=== PATIENT | female | born 1945 | race Caucasian/White ===

== ENCOUNTER 2018-12-01 15:43 | Inpatient (IN) | payer BC, MEDICARE ==
[~2018-12-01] VITALS: Ht 165.1 cm; Wt 61.7 kg
[~2018-12-01 15:43] MED LIST: BUPR300T4 ORAL; GABA300C16 PO; LEVO100T82 PO; LISI-313 PO; NABU-81 ORAL; SIMV5TAB14 PO; TIOT18CA INHALATION
[2018-12-01] MEDS ORDERED: HYDROCODONE/APAP (5/325) TAB PO ONE (16:30)
--- NOTE | 2018-12-01 16:38 | ERD ---
ER Documentation Chief Complaint Chief Complaint MECHANICAL FALL WITH LAC TO POSTERIOR HEAD D/T RT LEG WEAKNESS HPI 73-year-old female brought in by ambulance from home after a ground-level fall. Patient states that she slipped off the side of her bed, however her family thinks that something else happened but they were not there to witness it. Patient was [facility] just [facility] although family was told by the physical therapist there that the patient was not ready to go home safely. She does use a walker but occasionally her left leg which is her bad leg gets cramps and gives out. However today, the patient felt like her right leg was weak and feels that that is the reason she may have fallen. She did hit the back of her head on the nightstand and sustained a laceration. She denies any loss of consciousness or headache at this time. No new back pain. She does complain of lower back pain that is chronic for her and not worse after the fall. She is basically incontinent at baseline. She does not have any bowel incontinence. She is complaining of decreased sensation in her right lower extremity as well as her left lower extremity. However the left is chronic. ROS All systems reviewed and are negative except as per history of present illness. Medications Home Meds Reported Medications Diclofenac Sodium* (Voltaren* Gel) 1% -100 Gm Gel, 2 GM TOP TID PRN for PAIN, #1 TUB apply to lower back 12/01/18 Cholecalciferol* (Vitamin D3*) 1,000 Unit Tablet, 1000 UNIT PO DAILY, TAB 12/01/18 Ascorbic Acid* (Vitamin C*) 500 Mg Capsule.sa, 500 MG PO BID, CAP 12/01/18 Budesonide-Formoterol Fumarate* (Symbicort*) 160-4.5 Hfa.aer.ad, 2 PUFF INHALATION BID, #1 EACH 12/01/18 Sennosides* (Senna Lax*) 8.6 Mg Tablet, 1 TAB PO BID, TAB 12/01/18 Albuterol Sulfate* (Proair HFA*) 8.5 Gm Hfa.aer.ad, 2 PUFF INH Q4H PRN for WH EEZING AND SOB, #1 INHALER 12/01/18 Polyethylene Glycol* (Miralax*) 17 Gm Powd.pack, 17 GM PO DAILY, #30 PACKET HOLD FOR LOOSE STOOL MIX WITH 4-8oz of fluids 12/01/18 Hydrocodone/Acetaminophen ([place] 5-325 Tablet) 1 Each Tablet, 1 EACH PO Q6 PRN for MOD PAIN 4-7, TAB 12/01/18 Multivitamins* (Theragran*) 1 Tab Tab, 1 TAB PO DAILY, TAB 12/01/18 Lisinopril* (Lisinopril*) 5 Mg Tablet, 5 MG PO DAILY, #30 TAB HOLD FOR SBP<110 12/01/18 Levothyroxine Sodium* (Levoxyl*) 100 Mcg Tablet, 100 MCG PO BEFORE BREAKFAST, #30 TAB 12/01/18 [place]-3/Dha/Epa/Fish Oil (FISH OIL 1,000 MG SOFTGEL) 1 Each Capsule, 1 EACH PO DAILY, CAP 12/01/18 Docusate Sodium* (Colace*) 100 Mg Capsule, 100 MG PO BID, #60 CAP 12/01/18 Calcium Carbonate/Vitamin D3 (OYSTER SHELL 500 MG + VIT D TB) 1 Each Tablet, 1 EACH PO BID, TAB 12/01/18 Bupropion Hcl* (Bupropion XL*) 300 Mg Tab.sr.24h, 300 MG PO DAILY, TAB.SA 12/01/18 Na Phos,M-B/Na Phos,Di-Ba (ENEMA USEMM-RS-OLI) 133 Ml Enema, 133 ML RC EVERY 3RD DAY PRN for CONSTIPATION, ENEMA 12/01/18 Bisacodyl (Dulcolax) 10 Mg Supp.rect, 10 MG RC PRN PRN for CONSTIPATION, SUPP.RECT 12/01/18 Magnesium Hydroxide* (Milk Of Magnesia*) 400 Mg/5 Ml Oral.susp, 30 ML PO DAILY PRN for CONSTIPATION, ML 12/01/18 Vitamin B Complex* (Vitamin B Complex*) 1 Each Tablet, 1 TAB PO DAILY, TAB 12/01/18 Acetaminophen* (Acetaminophen*) 650 Mg Tablet, 650 MG PO Q4 PRN for MODERATE PAIN LEVEL 4-6, #30 TAB 12/01/18 Discontinued Reported Medications Levothyroxine Sodium* (Levoxyl*) 100 Mcg Tablet, 100 MCG PO BEFORE BREAKFAST, #30 TAB 04/24/16 Tiotropium [place]* (Spiriva*) 18 Mcg Cap.w.dev, 1 CAP INHALATION DAILY, #30 CAP 12/05/15 Bupropion Hcl* (Bupropion XL*) 300 Mg Tab.sr.24h, 300 MG ORAL DAILY, #90 12/05/15 Gabapentin* (Gabapentin*) 300 Mg Capsule, 600 MG PO TID, #180 CAP 12/05/15 Nabumetone* (Nabumetone*) 500 Mg Tablet, 500 MG ORAL BID, #180 12/05/15 Lisinopril* (Lisinopril*) 5 Mg Tablet, 5 MG PO DAILY, #30 TAB 09/19/15 Discontinued Scripts Simvastatin* (Simvastatin*) 5 Mg Tablet, 5 MG PO QHS, #30 TAB Prov:LILLY JOSE MD 12/06/15 Allergies Allergies: Coded Allergies: Anesthetics - Amide Type (Verified Allergy, Unknown, 12/01/18) Cholinesterase Inhibitor(Carbamate) (Verified Allergy, Unknown, 12/01/18) succinylcholine (Verified Allergy, Unknown, 12/01/18) Uncoded Allergies: HALOGENATED (Allergy, Unknown, 12/01/18) PMhx/Soc History of Surgery: Yes (bilat TKR, hip, R TSR, hysterectomy, back sx, thumb, lumbar laminectomy) Anesthesia Reaction: No Hx Neurological Disorder: No Hx Respiratory Disorders: Yes (quit smoking) Hx Cardiac Disorders: No Hx Psychiatric Problems: Yes (depression) Hx Miscellaneous Medical Probl: Yes (COPD, depression, metabolic syndrome, chronic pain sydrome) Hx Alcohol Use: Yes (one drink every three years) Hx Substance Use: No Hx Tobacco Use: Yes (former) FmHx Family History: No diabetes Physical Exam Vitals Vital Signs Date Temp Pulse Resp B/P (MAP) Pulse Ox O2 O2 Flow FiO2 Time Delivery Rate 12/01/18 92 16 118/74 96 Room Air 18:35 (89) 12/01/18 100 17 122/76 100 Room Air 16:49 (91) 12/01/18 97.8 115 16 122/71 98 15:53 (88) Physical Exam Const: No acute distress, nontoxic Head: Atraumatic Eyes: Normal Conjunctiva ENT: Normal External Ears, Nose and Mouth. Neck: Full range of motion. No meningismus. Resp: Clear to auscultation bilaterally Cardio: Regular rate and rhythm, no murmurs Abd: Soft, non tender, non distended. Normal bowel sounds Skin: No petechiae or rashes Back: Mild lumbar midline tenderness, chronic per patient. No thoracic tenderness or C-spine tenderness. Ext: No cyanosis, or edema Neur: Awake and alert, oriented x3, cranial nerves intact, strength intact in bilateral upper extremities. Sensations intact in bilateral upper extremities. Strength diminished with flexion at the hip in bilateral lower extremities, 4/5. Otherwise strength intact in all other distributions of the lower extremities bilaterally. Sensation diminished to painful stimuli in bilateral lower extremities. Intact to painful stimuli in the dorsum of right foot Psych: Normal Mood and Affect Result Diagram: 12/01/18 1750 12/01/18 175 Results 24 hrs Laboratory Tests Test 12/01/18 17:50 12/01/18 18:50 12/01/18 19:00 White Blood Count 18.5 10^3/ul Red Blood Count 4.39 10^6/ul Hemoglobin 11.8 g/dl Hematocrit 37.4 % Mean Corpuscular Volume 85.2 fl Mean Corpuscular Hemoglobin 26.9 pg Mean Corpuscular 31.6 g/dl Hemoglobin Concent Red Cell Distribution Width 14.7 % Platelet Count 354 10^3/UL Mean Platelet Volume 9.3 fl Immature Granulocytes % 0.900 % Neutrophils % 88.1 % Lymphocytes % 3.1 % Monocytes % 7.7 % Eosinophils % 0.0 % Basophils % 0.2 % Nucleated Red Blood Cells % 0.0 /100WBC Immature Granulocytes # 0.170 10^3/ul Neutrophils # 16.3 10^3/ul Lymphocytes # 0.6 10^3/ul Monocytes # 1.4 10^3/ul Eosinophils # 0.0 10^3/ul Basophils # 0.0 10^3/ul Nucleated Red Blood Cells # 0.0 10^3/ul Sodium Level 136 mmol/L Potassium Level 3.7 mmol/L Chloride Level 103 mmol/L Carbon Dioxide Level 25 mmol/L Anion Gap 8 Blood Urea Nitrogen 12 mg/dl Creatinine 0.55 mg/dl Est Glomerular Filtrat mL/min Rate mL/min Glucose Level 114 mg/dl Calcium Level 8.9 mg/dl Lactic Acid Level 1.0 mmol/L Troponin I 0.027 ng/ml Urine Color YELLOW Urine Clarity CLOUDY Urine pH 5.0 Urine Specific [place] 1.015 Urine Ketones TRACE mg/dL Urine Nitrite POSITIVE mg/dL Urine Bilirubin NEGATIVE mg/dL Urine Urobilinogen NEGATIVE mg/dL Urine Leukocyte Esterase NEGATIVE Earnest/ul Urine Microscopic RBC 1 /HPF Urine Microscopic WBC 8 /HPF Urine Squamous Epithelial Cells MODERATE /HPF Urine Bacteria MANY /HPF Urine Hemoglobin NEGATIVE mg/dL Urine Glucose NEGATIVE mg/dL Urine Total Protein NEGATIVE mg/dl Current Medications Medications Dose Sig/Jose Start Time Status Last (Trade) Ordered Route PRN Stop Time Admin Dose Reason Admin 1 tab ONCE ONCE 12/01/18 DC 12/01/18 Acetaminophen PO 16:30 17:32 / 12/01/18 16:31 Hydrocodone Bitart ([place] (5/325)) Sodium 1,870 ml BOLUS OVER 2 12/01/18 DC 12/01/18 Chloride HOURS STAT 18:20 19:14 (NS) IV* 12/01/18 18:22 Ceftriaxone 50 ml @ ONCE STAT 12/01/18 DC 12/01/18 Sodium 100 mls/hr IVPB 18:20 19:12 12/01/18 18:49 Procedures/MDM EMERGENT LABS AND DIAGNOSTIC STUDIES: Lab Results above were reviewed and interpreted by me. CBC: Leukocytosis, concerning for infection. Mild anemia BMP: No evidence of electrolyte abnormality, renal failure, hypoglycemia troponin within normal limits, no evidence of myocardial ischemia Lactate is within normal limits UA: c/w infection Urine and blood cultures pending Radiology Results as interpreted by Radiology below were reviewed by Keiko Ragsdale MD: CT T-spine: IMPRESSION: No fracture or subluxation of the thoracic spine. Severe spinal canal stenosis at T10-11, moderate spinal canal stenosis at T1-2, and mild spinal canal stenosis at T3-4, T4-5, T6-7, and T8-9. Severe right neural foraminal narrowings at T1-2, T4-5, T5-6, T6-7, T7-8, and T10-11. Severe left neural foraminal narrowings at T2-3, T3-4, T4-5, and T10-11. CT lumbar spine: No acute fracture subluxation of the lumbar spine. Status post multilevel discectomy and posterior fusion from L1-L3. There has also been discectomy and anterior interbody fusion from L3-L5. 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 Mild spinal canal stenosis at T12-L1. Moderate left neural foraminal narrowing at L4-L5, mild to moderate bilateral neural foraminal narrowing at L2-L3 CT head: No acute abnormalities Chest x-ray shows no acute abnormalities Initial Nursing notes reviewed. Previous Medical Records requested via the Electronic Health Record. EMERGENCY DEPARTMENT COURSE / MEDICAL DECISION MAKING: Laceration Repair by me: Anesthesia: None Location: Posterior left scalp Tendon/Joint/Nerves: No injury Foreign body: None detected after copious irrigation and exploration Technique: 3 pily Complexity: No subcutaneous sutures/mucosal repair/edge excision Post Closure Length: 3 cm Patient's bleeding was easily controlled in the department and there is no indication of anemia. MDM Patient was initially treated for her pain with [place], which was her preference. Vitals were noted to be unremarkable. Her wound was cleansed and pily were placed. Given her age, CT head was done per ACEP guidelines. CT of her spine was also ordered to evaluate for any injury from her fall. CT does not show any acute traumatic abnormalities. Her labs did show evidence of leukocytosis and UA was consistent with infection. Antibiotics were started. Given her frequent falls and new weakness in her right lower extremity, I feel the patient is not safe for discharge and will require admission for further workup and stabilization. At this time, I have a low suspicion for cauda equina. Patient will likely need MRI but she is not showing any signs of neurologic deficits that require emergent neurosurgical consultation or surgery. Accepting Care Team: Current data and ongoing care discussed. Time: Time of admission Primary Provider: Dr. Ever Doan Diagnosis: Primary Impression: Fall Encounter type: initial encounter Qualified Codes: W19.XXXA - Unspecified fall, initial encounter Additional Impressions: Scalp laceration Encounter type: initial encounter Qualified Codes: S01.01XA - Laceration without foreign body of scalp, initial encounter Blunt head injury Encounter type: initial encounter Qualified Codes: S09.8XXA - Other specified injuries of head, initial encounter UTI (urinary tract infection) Urinary tract infection type: site unspecified Hematuria presence: without hematuria Qualified Codes: N39.0 - Urinary tract infection, site not specified Lower extremity weakness Laterality: bilateral Qualified Codes: R29.898 - Other symptoms and signs involving the musculoskeletal system Condition: Fair RODRIGO RAGSDALE MD Dec 01, 2018 16:38
[2018-12-01] MEDS ORDERED: ACET-2047 PO (17:10)
[2018-12-01] MEDS ORDERED: VIT1TABL46 PO (17:10)
[2018-12-01] MEDS ORDERED: MAGN400O19 PO (17:11)
[2018-12-01] MEDS ORDERED: BISA10SU55 RC (17:11)
[2018-12-01] MEDS ORDERED: NA P133E10 RC (17:12)
[2018-12-01] MEDS ORDERED: CALC1TAB93 PO (17:13)
[2018-12-01] MEDS ORDERED: BUPR300T4 PO (17:13)
[2018-12-01] MEDS ORDERED: DOCU-144 PO (17:14)
[2018-12-01] MEDS ORDERED: LEVO100T82 PO (17:14)
[2018-12-01] MEDS ORDERED: OMEG1CAP20 PO (17:14)
[2018-12-01] MEDS ORDERED: LISI-313 PO (17:15)
[2018-12-01] MEDS ORDERED: MULTI PO (17:15)
[2018-12-01] MEDS ORDERED: HYDR-4011 PO (17:17)
[2018-12-01] MEDS ORDERED: POLY17PO6 PO (17:18)
[2018-12-01] MEDS ORDERED: SENN-120 PO (17:19)
[2018-12-01] MEDS ORDERED: ALBU8.5H8 INH (17:19)
[2018-12-01] MEDS ORDERED: BUDE6HFA INHALATION (17:19)
[2018-12-01] MEDS ORDERED: ASCO500C7 PO (17:20)
[2018-12-01] MEDS ORDERED: CHOL100062 PO (17:20)
[2018-12-01] MEDS ORDERED: DICL100G37 TOP (17:21)
[2018-12-01] MEDS ORDERED: CEFTRIAXONE 1 GM/50 ML (PMX) 50 ML IVPB STA (18:20)
[2018-12-01] MEDS ORDERED: SODIUM CHLORIDE 0.9% 1L BAG IV* STA (18:20)
[2018-12-01] MEDS ORDERED: ONDANSETRON 4 MG INJ IV PRN ×2 (19:30→22:00)
[2018-12-01] MEDS ORDERED: ACETAMINOPHEN 325 MG TAB PO PRN ×2 (19:30→22:00)
[2018-12-01 20:30] VITALS: BP_SYST 102; BP_SYST 129; BP_DIAS 50; BP_DIAS 59; PULSE 75; RESP 18
[2018-12-01 21:00] VITALS: BP 102/50; PULSE 75; RESP 18
[2018-12-01] MEDS ORDERED: MAGNESIUM HYDROXIDE 30ML CUP PO PRN (21:00)
[2018-12-01] MEDS ORDERED: ALBUTEROL HFA 8 GM INHALER INH PRN (21:00)
[2018-12-01] MEDS ORDERED: NA PHOSPHATE/BIPHOS 133 ML ENEMA PR PRN (21:00)
[2018-12-01] MEDS ORDERED: DICLOFENAC SODIUM 1% GEL 100 GM TUBE TP PRN (21:00)
--- NOTE | 2018-12-01 21:57 | HP ---
Date/Time of Note Date/Time of Note DATE: 12/01/18 TIME: 21:56 Assessment/Plan VTE Prophylaxis SCD applied (from Ns): Yes Pharmacological prophylaxis: NA/contraindicated Pharm contraindication: low risk/ambulating Assessment/Plan Hospital Course This is a 73-year female being admitted to the [facility] floor for: #1 mechanical fall: Possibly multifactorial secondary to spinal/muscular pathology and/or UTI. Will obtain further imaging studies, antibiotics for UTI. #2 right lower extremity weakness: Patient does have free range of motion of both lower extremities she does still have significant pain to palpation on the right anterior thigh. Will check a CK level to assess for any underlying rhabdomyolysis. I will order a CT of the right lower extremity to assess for any underlying abscess or infectious process. May need an MRI of the thigh. #3 chronic spinal disease: Patient does have a history of significant stenosis of her spine. Lumbar spine and thoracic spine do so signs of stenosis though no acute fractures. Given her weakness will also order an MRI of the lumbar and thoracic spine. Depending on the findings we will consider consulting neurosurgery. Pain management. #4 osteoarthritis: Continue to monitor, pain management #5 urinary tract infection: Ceftriaxone 1 g every 24 hours, will obtain urine culture. #6 DVT GI prophylaxis: SCDs, no GI prophylaxis indicated further treatment strategy will be implemented as per the clinical course. Result Diagram: 12/01/18 1750 12/01/18 1750 Results 24hrs Laboratory Tests Test 12/01/18 17:50 12/01/18 18:50 12/01/18 19:00 White Blood Count 18.5 #H Red Blood Count 4.39 Hemoglobin 11.8 L Hematocrit 37.4 Mean Corpuscular Volume 85.2 Mean Corpuscular Hemoglobin 26.9 L Mean Corpuscular Hemoglobin Concent 31.6 L Red Cell Distribution Width 14.7 H Platelet Count 354 Mean Platelet Volume 9.3 Immature Granulocytes % 0.900 H Neutrophils % 88.1 H Lymphocytes % 3.1 L Monocytes % 7.7 Eosinophils % 0.0 Basophils % 0.2 Nucleated Red Blood Cells % 0.0 Immature Granulocytes # 0.170 H Neutrophils # 16.3 H Lymphocytes # 0.6 L Monocytes # 1.4 H Eosinophils # 0.0 Basophils # 0.0 Nucleated Red Blood Cells # 0.0 Sodium Level 136 Potassium Level 3.7 Chloride Level 103 Carbon Dioxide Level 25 Anion Gap 8 Blood Urea Nitrogen 12 Creatinine 0.55 Est Glomerular Filtrat Rate mL/min Glucose Level 114 Calcium Level 8.9 Lactic Acid Level 1.0 Troponin I 0.027 Urine Color YELLOW Urine Clarity CLOUDY A Urine pH 5.0 Urine Specific [place] 1.015 Urine Ketones TRACE A Urine Nitrite POSITIVE A Urine Bilirubin NEGATIVE Urine Urobilinogen NEGATIVE Urine Leukocyte Esterase NEGATIVE Urine Microscopic RBC 1 Urine Microscopic WBC 8 H Urine Squamous Epithelial Cells MODERATE Urine Bacteria MANY A Urine Hemoglobin NEGATIVE Urine Glucose NEGATIVE Urine Total Protein NEGATIVE HPI/ROS Admit Date/Time Admit Date/Time Dec 01, 2018 at 19:24 Hx of Present Illness Chief complaint: Ground level fall This is a 73-year-old female brought in by ambulance from home after a ground- level fall. Patient states that she slipped off the side of her bed, however her family thinks that something else happened but they were not there to witness it. Patient was reportedly just [facility] a [facility] although family was told by the physical therapist there that the patient was not ready to go home safely. She does use a walker but occasionally her left leg which is her bad leg gets cramps and gives out. However today, the patient felt like her right leg was weak and feels that that is the reason she may have fallen. She did hit the back of her head on the nightstand and sustained a laceration. She denies any loss of consciousness or headache at this time. No new back pain. She does complain of lower back pain that is chronic for her and not worse after the fall. She is basically incontinent at baseline. She does not have any bowel incontinence. She is complaining of decreased sensation in her right lower extremity as well as her left lower extremity. However the left is chronic. Allergies: Anesthetics, carbamate, halogen aided succinylcholine Medications: See NOV ROS Const: As per HPI Eyes : No pain discharge or redness or change in visual acuity ENT: No pain, sore throat, congestion, congestion, dysphagia or discharge Respiratory: No shortness of breath, cough, sputum, wheezing, or pleuritic pain Cardiovascular: No chest pain, palpitation, PND, or edema GI : no change in appetite, abdominal pain, nausea, vomiting, diarrhea, constipation, or change in the color his stool Genitourinary: No dysuria, hematuria, flank pain , discharge or CVA tenderness Musculoskeletal: As per HPI Skin: No rash, bruising or hives Neuro: As per HPI Endocrine: No polyuria, polydipsia, temperature intolerance Psych: No hallucination, depression, anxiety or suicidal ideation Additional Comments PROCEDURE: CT lumbar spine without contrast CLINICAL INDICATION: Trauma, back pain. TECHNIQUE: A CT scan of the lumbar spine was performed without intravenous contrast. Coronal and sagittal reformatted images were generated. DICOM images are available. CTDIvol: 22.51 mGy. DLP: 736.21 mGy-cm. One or more of the following dose reduction techniques were used: - Automated exposure control. - Adjustment of the mA and/or kV according to patient size. - Use of iterative reconstruction technique. COMPARISON: None. FINDINGS: The lumbar lordosis is preserved. The vertebral body heights are maintained. Bone mineralization is normal and there is no suspicious osseous lesion. No acute fracture or subluxation is identified. There is transitional anatomy of the lumbosacral junction with right hemisacralization of L5. The patient is status post multilevel discectomy and posterior fusion from L1- L3. There has also been discectomy and anterior interbody fusion from L3-L5. T12-L1: Disc bulging leads to mild spinal canal stenosis and mild right neural foraminal narrowing. L1-L2: There is no spinal canal stenosis. Mild left neural foraminal narrowing is noted due to disc bulging. L2-L3: There is no spinal canal stenosis. Mild to moderate bilateral neural foraminal narrowing is noted due to disc osteophyte L3-L4: There is grade 1 degenerative L3 anterolisthesis (4 mm). No spinal canal stenosis or neural foraminal narrowing is seen. L4-L5: There is grade 1 degenerative L4 anterolisthesis (4 mm). No spinal canal stenosis is seen. There is moderate left neural foraminal narrowing due to osteophyte. L5-S1: There is no spinal canal stenosis. Mild left neural foraminal narrowing is noted due to a small foraminal disc protrusion. There are moderate atherosclerotic arterial calcifications. Bilateral hip arthroplasties are partially imaged. IMPRESSION: No acute fracture subluxation of the lumbar spine. Status post multilevel discectomy and posterior fusion from L1-L3. There has also been discectomy and anterior interbody fusion from L3-L5. 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 Mild spinal canal stenosis at T12-L1. Moderate left neural foraminal narrowing at L4-L5, mild to moderate bilateral neural foraminal narrowing at L2-L3. RPTAT: HTAR .Maurilio Culp MD, MD Date Time Electronically viewed and signed by .Maurilio Culp MD, MD on 12/01/2018 18:10 .R/ CC: RODRIGO FARMER MD [id number] PROCEDURE: CT thoracic spine without contrast. CLINICAL INDICATION: Trauma, back pain. TECHNIQUE: A CT of the thoracic spine was performed without intravenous contrast. Coronal and sagittal reformats were generated. DICOM images are available. CTDIvol: 22.48 mGy. DLP: 892.13 mGy-cm. One or more of the following dose reduction techniques were used: - Automated exposure control. - Adjustment of the mA and/or kV according to patient size. - Use of iterative reconstruction technique. COMPARISON: None. FINDINGS: There is a normal thoracic kyphosis. The vertebral body heights are maintained. No fracture or subluxation is seen. There is grade 1 degenerative anterolisthesis of T2, T3, T4, T5, and T6 secondary to degenerative disc disease and multilevel facet arthrosis. Severe loss of disc height is noted at T1-2, T4-5, T5-6, and T6-7. There is severe loss of disc height and vacuum disc phenomenon at T10-11. There are severe neural foraminal narrowings on the right at T1-2, T4-5, T5-6, T6-7, T7-8, and T10-11. Severe left neural foraminal narrowing is noted at T2-3, T3-4, T4-5, and T10-11. There is moderate spinal canal stenosis at T1-2. Mild spinal canal stenosis is noted at T3-4, T4-5, T6-7, and T8-9. There is severe spinal canal stenosis at T10-11. The extra spinal soft tissue structures are unremarkable. IMPRESSION: No fracture or subluxation of the thoracic spine. Severe spinal canal stenosis at T10-11, moderate spinal canal stenosis at T1-2, and mild spinal canal stenosis at T3-4, T4-5, T6-7, and T8-9. Severe right neural foraminal narrowings at T1-2, T4-5, T5-6, T6-7, T7-8, and T10-11. Severe left neural foraminal narrowings at T2-3, T3-4, T4-5, and T10-11. RPTAT: HTAR .Maurilio Culp MD, MD Date Time Electronically viewed and signed by .Maurilio Culp MD, on 12/01/2018 18:00 .R/ CC: RODRIGO FARMER MD [id number] PMH/Family/Social Past Medical History Osteoarthritis, lumbar disease Medications Current Medications Ondansetron HCl (Zofran Inj) 4 mg BRIDGE ORDER PRN IV NAUSEA/VOMITING; Start 12/01/18 at 19:30; Stop 12/02/18 at 19:29 Acetaminophen (Tylenol Tab) 650 mg ER BRIDGE PRN PO .MILD PAIN 1-3 OR TEMP; Start 12/01/18 at 19:30; Stop 12/02/18 at 19:29 Acetaminophen (Tylenol Tab) 650 mg Q4 PRN PO MODERATE PAIN LEVEL 4-6; Start 12/01/18 at 21:00; Status UNV Albuterol (Ventolin Hfa) 2 puff Q4H PRN INH WHEEZING AND SOB; Start 12/01/18 at 21:00; Status UNV Ascorbic Acid (Vitamin C) 500 mg BID PO ; Start 12/01/18 at 21:00; Status UNV Bupropion HCl (Wellbutrin Xl) 300 mg DAILY PO ; Start 12/02/18 at 09:00; Status UNV Cholecalciferol (Vitamin D) 1,000 unit DAILY PO ; Start 12/02/18 at 09:00; Status UNV Diclofenac Sodium (Voltaren 1% Gel) 2 gm TID PRN TP PAIN; Start 12/01/18 at 21:00; Status UNV Docusate Sodium (Colace) 100 mg BID PO ; Start 12/01/18 at 21:00; Status UNV Levothyroxine Sodium (Synthroid) 100 mcg BEFORE BREAKFAST PO ; Start 12/02/18 at 07:00; Status UNV Lisinopril (Zestril) 5 mg DAILY PO ; Start 12/02/18 at 09:00; Status UNV Magnesium Hydroxide (Milk Of Mag) 30 ml DAILY PRN PO CONSTIPATION; Start 12/01/18 at 21:00; Status UNV Multivitamins Therapeutic (Theragran) 1 tab DAILY PO ; Start 12/02/18 at 09:00; Status UNV Sodium Biphosphate/ Sodium Phosphate (Fleet Enema) 133 ml DAILY PRN CA CONSTIPATION; Start 12/01/18 at 21:00; Status UNV Polyethylene Glycol (Miralax) 17 gm DAILY PO ; Start 12/02/18 at 09:00; Status UNV Senna (Senokot) 1 tab BID PO ; Start 12/01/18 at 21:00; Status UNV Vitamin B Complex/ Vitamin C (Berocca) 1 cap DAILY PO ; Start 12/02/18 at 09:00; Status UNV Miscellaneous Information 2 puff BID INHALATION ; Start 12/01/18 at 21:00; Status UNV Miscellaneous Information 1 each DAILY PO ; Start 12/02/18 at 09:00; Status UNV Ceftriaxone Sodium 50 ml @ 100 mls/hr Q24H IVPB ; Start 12/02/18 at 18:00; Status UNV IV Flush (NS 3 ml) 3 ml PER PROTOCOL IV ; Start 12/01/18 at 22:00; Status UNV Ondansetron HCl (Zofran Inj) 4 mg Q6H PRN IV NAUSEA/VOMITING; Start 12/01/18 at 22:00; Status UNV Acetaminophen (Tylenol Tab) 650 mg Q6H PRN PO .PAIN 1-3 OR TEMP; Start 12/01/18 at 22:00; Status UNV Docusate Sodium (Colace) 100 mg Q12H PRN PO .CONSTIPATION; Start 12/01/18 at 22:00; Status UNV Bisacodyl (Dulcolax) 5 mg DAILY PRN PO .CONSTIPATION; Start 12/01/18 at 22:00; Status UNV Coded Allergies: Anesthetics - Amide Type (Verified Allergy, Unknown, 12/01/18) Cholinesterase Inhibitor(Carbamate) (Verified Allergy, Unknown, 12/01/18) succinylcholine (Verified Allergy, Unknown, 12/01/18) Uncoded Allergies: HALOGENATED (Allergy, Unknown, 12/01/18) Past Surgical History Status post multilevel discectomy and posterior fusion from L1-L3. There has also been discectomy and anterior interbody fusion from L3-L5. Family History Significant Family History: no pertinent family hx Social History Alcohol Use: none Smoking Status: Never smoker Drug Use: none Exam/Review of Systems Vital Signs Vitals Vital Signs Date Temp Pulse Resp B/P (MAP) Pulse Ox O2 O2 Flow FiO2 Time Delivery Rate 12/01/18 89 16 115/67 97 Room Air 20:46 (83) 12/01/18 97.8 15:53 Exam Exam General: Patient is a pleasant female currently lying in bed in mild distress from back and anterior thigh pain, HEENT: Atraumatic, normocephalic. The pupils are equal, round and reactive. Extraocular motor are intact, mucous members dry Neck: Supple with full range of motion. No rigidity or meningismus Chest: Nontender Lungs: Clear to auscultation bilaterally no crackles rales or wheezing Heart: Normal S1-S2, Regular rhythm and rate. No murmur, S3, or S4 Abdomen: Soft , nontender, nondistended , bowel sounds are present. No guarding no rebound tenderness , No masses or organomegaly. No costovertebral temporal angle mass Extremities: Tenderness to palpation over the anterior thigh, no redness or erythema noted. Patient is able to move the right lower extremity however she does report pain. Musculoskeletal: Mild tenderness palpation over the thoracic region., Tenderness palpation over the anterior thigh, no redness or erythema noted Neurologic: Normal mental status, speech normal, cranial nerves II through XII are intact, motor and sensory are intact, Additional Comments PROCEDURE: CT Brain without contrast. CLINICAL INDICATION: Trauma TECHNIQUE: A CT of the brain was performed on a multidetector CT scanner utilizing axial imaging from the skull base through the vertex without IV contrast. Multiplanar reformatted images were made. Images were reviewed on a PACS workstation. The CTDIvol is 38 mGy and the DLP is 634 mGycm. DICOM images are available. One or more of the following dose reduction techniques were utilized: 1.) Automated exposure control 2.) Adjustment of the mA +/- kV according to patient's size 3.) Use of iterative reconstruction technique. COMPARISON: Head CT December 05, 2015 FINDINGS: There is mild to moderate diffuse cerebral volume loss with sulcal and ventricular dilatation. No discrete extra-axial fluid collection or mass is visualized. The ventricles are of normal contour and configuration with no midline shift. There is minimal periventricular white matter disease in both cerebral hemispheres. No associated mass effect is present. There is pr eservation of normal cai-white differentiation. No intracranial hemorrhage is seen. There is no skull fracture. No scalp hematoma is seen. There is normal aeration in the visualized paranasal sinuses. IMPRESSION: No intracranial hemorrhage or skull fracture. Age-appropriate atrophy. Minimal white matter disease compatible with chronic small vessel ischemia. No mass or evidence of acute transcortical infarct. .Anibal Marino MD, MD Date Time Electronically viewed and signed by .Anibal Marino MD, MD on 12/01/2018 17:19 .A/ CC: RODRIGO FARMER MD [id number] PROCEDURE: CT lumbar spine without contrast CLINICAL INDICATION: Trauma, back pain. TECHNIQUE: A CT scan of the lumbar spine was performed without intravenous contrast. Coronal and sagittal reformatted images were generated. DICOM images are available. CTDIvol: 22.51 mGy. DLP: 736.21 mGy-cm. One or more of the following dose reduction techniques were used: - Automated exposure control. - Adjustment of the mA and/or kV according to patient size. - Use of iterative reconstruction technique. COMPARISON: None. FINDINGS: The lumbar lordosis is preserved. The vertebral body heights are maintained. Bone mineralization is normal and there is no suspicious osseous lesion. No acute fracture or subluxation is identified. There is transitional anatomy of the lumbosacral junction with right hemisacralization of L5. The patient is status post multilevel discectomy and posterior fusion from L1- L3. There has also been discectomy and anterior interbody fusion from L3-L5. T12-L1: Disc bulging leads to mild spinal canal stenosis and mild right neural foraminal narrowing. L1-L2: There is no spinal canal stenosis. Mild left neural foraminal narrowing is noted due to disc bulging. L2-L3: There is no spinal canal stenosis. Mild to moderate bilateral neural foraminal narrowing is noted due to disc osteophyte L3-L4: There is grade 1 degenerative L3 anterolisthesis (4 mm). No spinal canal stenosis or neural foraminal narrowing is seen. L4-L5: There is grade 1 degenerative L4 anterolisthesis (4 mm). No spinal canal stenosis is seen. There is moderate left neural foraminal narrowing due to osteophyte. L5-S1: There is no spinal canal stenosis. Mild left neural foraminal narrowing is noted due to a small foraminal disc protrusion. There are moderate atherosclerotic arterial calcifications. Bilateral hip arthroplasties are partially imaged. IMPRESSION: No acute fracture subluxation of the lumbar spine. Status post multilevel discectomy and posterior fusion from L1-L3. There has also been discectomy and anterior interbody fusion from L3-L5. 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 Mild spinal canal stenosis at T12-L1. Moderate left neural foraminal narrowing at L4-L5, mild to moderate bilateral neural foraminal narrowing at L2-L3. RPTAT: HTAR .Maurilio Culp MD, MD Date Time Electronically viewed and signed by .Maurilio Culp MD, on 12/01/2018 18:10 .R/ CC: RODRIGO FARMER MD [id number] PROCEDURE: CT thoracic spine without contrast. CLINICAL INDICATION: Trauma, back pain. TECHNIQUE: A CT of the thoracic spine was performed without intravenous contrast. Coronal and sagittal reformats were generated. DICOM images are available. CTDIvol: 22.48 mGy. DLP: 892.13 mGy-cm. One or more of the following dose reduction techniques were used: - Automated exposure control. - Adjustment of the mA and/or kV according to patient size. - Use of iterative reconstruction technique. COMPARISON: None. FINDINGS: There is a normal thoracic kyphosis. The vertebral body heights are maintained. No fracture or subluxation is seen. There is grade 1 degenerative anterolisthesis of T2, T3, T4, T5, and T6 secondary to degenerative disc disease and multilevel facet arthrosis. Severe loss of disc height is noted at T1-2, T4-5, T5-6, and T6-7. There is severe loss of disc height and vacuum disc phenomenon at T10-11. There are severe neural foraminal narrowings on the right at T1-2, T4-5, T5-6, T6-7, T7-8, and T10-11. Severe left neural foraminal narrowing is noted at T2-3, T3-4, T4-5, and T10-11. There is moderate spinal canal stenosis at T1-2. Mild spinal canal stenosis is noted at T3-4, T4-5, T6-7, and T8-9. There is severe spinal canal stenosis at T10-11. The extra spinal soft tissue structures are unremarkable. IMPRESSION: No fracture or subluxation of the thoracic spine. Severe spinal canal stenosis at T10-11, moderate spinal canal stenosis at T1-2, and mild spinal canal stenosis at T3-4, T4-5, T6-7, and T8-9. Severe right neural foraminal narrowings at T1-2, T4-5, T5-6, T6-7, T7-8, and T10-11. Severe left neural foraminal narrowings at T2-3, T3-4, T4-5, and T10-11. RPTAT: HTAR .Maurilio Culp MD, Date Time Electronically viewed and signed by .Maurilio Culp MD, on 12/01/2018 18:00 .R/ CC: RODRIGO FARMER MD [id number] RAMA GIBBONS Dec 01, 2018 21:57
[2018-12-01] MEDS ORDERED: BISACODYL (EC) 5 MG TAB PO PRN (22:00)
[2018-12-01] MEDS ORDERED: NACL 0.9% 3 ML SYG IV SCH (22:00)
[2018-12-01] MEDS ORDERED: DOCUSATE SODIUM 100 MG CAP PO PRN (22:00)
[2018-12-01] MEDS: ARFORMOTEROL TARTRATE 15MCG/2 ML AMP INH SCH (22:30)
[2018-12-01] MEDS: ASCORBIC ACID 500 MG TAB PO SCH (22:40)
[2018-12-01] MEDS: ACETAMINOPHEN 325 MG TAB PO PRN (22:41)
[2018-12-01] MEDS: DOCUSATE SODIUM 100 MG CAP PO SCH (22:41)
[2018-12-01] MEDS: SENNA TAB PO SCH (22:41)
[2018-12-01 22:44] VITALS: Ht 165.1 cm; Wt 61.7 kg
[2018-12-01] MEDS: BUDESONIDE (NEB) 0.5MG/2ML AMP INH SCH (23:00)
[2018-12-02] MEDS ORDERED: PENDING SANTYL ORDER FOR WOUND CARE XX PRN
[2018-12-02 02:00] VITALS: BP 102/50; PULSE 88; RESP 16
[2018-12-02] MEDS: ACETAMINOPHEN 325 MG TAB PO PRN (04:53)
[2018-12-02] MEDS: HYDROCODONE/APAP (5/325) TAB PO PRN (06:03)
[2018-12-02] MEDS: BUDESONIDE (NEB) 0.5MG/2ML AMP INH SCH ×2 (08:00→20:33)
[2018-12-02] MEDS ORDERED: VANCOMYCIN IV PER PHARMACY XX SCH (08:00)
[2018-12-02 08:03] VITALS: BP 97/52; PULSE 79; RESP 17
[2018-12-02] MEDS: LISINOPRIL 5 MG TAB PO SCH (09:00)
[2018-12-02] MEDS: ARFORMOTEROL TARTRATE 15MCG/2 ML AMP INH SCH ×2 (09:00→20:33)
[2018-12-02] MEDS: VITAMIN B COMPLEX/VIT C CAP PO SCH (09:20)
[2018-12-02] MEDS: SENNA TAB PO SCH ×2 (09:20→21:24)
[2018-12-02] MEDS: BUPROPION (XL) 150 MG TAB PO SCH (09:20)
[2018-12-02] MEDS: ASCORBIC ACID 500 MG TAB PO SCH ×2 (09:20→21:24)
[2018-12-02] MEDS: FISH OIL 1,000 MG CAP PO SCH (09:21)
[2018-12-02] MEDS: CHOLECALCIFEROL 1,000 UNIT TAB PO SCH (09:21)
[2018-12-02] MEDS: DOCUSATE SODIUM 100 MG CAP PO SCH ×2 (09:21→21:24)
[2018-12-02] MEDS: LEVOTHYROXINE 100 MCG TAB PO SCH (09:21)
[2018-12-02] MEDS: MULTIVITAMINS THERAPEUTIC TAB PO SCH (09:21)
[2018-12-02] MEDS: POLYETHYLENE GLYCOL 17 GM PACKET PO SCH (09:22)
[2018-12-02] MEDS ORDERED: VANCOMYCIN HCL 1.25 GM in SOD CHLORIDE 0.9% 250 ML IVPB SCH (10:00)
[2018-12-02] MEDS ORDERED: SOD CHLORIDE 0.9% 100 ML ONE (10:31)
[2018-12-02] MEDS ORDERED: IOHEXOL 300MG/ML 150 ML BTL ONE (10:31)
--- NOTE | 2018-12-02 11:56 | PN ---
Date/Time of Note Date/Time of Note DATE: 12/02/18 TIME: 11:45 Assessment/Plan VTE Prophylaxis Risk score (from Ns)>0 risk: 6 SCD applied (from Nsg): Yes Pharmacological prophylaxis: LMWH Lines/Catheters IV Catheter Type (from Nrsg): Saline Lock Urinary Cath still in place: No Assessment/Plan Hospital Course S: feels basically the same, still weak RLE, has healing ulcer sacrum O: Constitutional: alert, oriented Head: atraumatic, normocephalic Neck: non-tender, supple Respiratory: clear to auscultation Cardiovascular: regular rate and rhythm Gastrointestinal: S/ NT / ND / +BS Extremities: healing sacral ulcer assessment and plan: 73-year-old female brought in by ambulance from home after a ground-level fall #1 mechanical fall: Possibly multifactorial secondary to spinal/muscular pathology and/or UTI. -CT just showed degenerative disease -unable to get MRI for multiple reasons -PT to ambulate -may be related to sepsis, #2 right lower extremity weakness: -f/u CT Lower extremity and intervene as indicated #3 chronic spinal disease: - Patient does have a history of significant stenosis of her spine. Lumbar spine and thoracic spine do so signs of stenosis though no acute fractures. - Continue pain management. #4 osteoarthritis: Continue to monitor, pain management #5 urinary tract infection: -Gram negative rods, continue Ceftriaxone 1 g every 24 hours #6 Gm + bacteremia from sacral ulcer? -different organism from UTI -continue Vanco -Bone scan to r/o spinal infection -echo to r/o vegetation #7 Hypokalemia #8 sacral ulcer r/o osteo Result Diagram: 12/02/1831 12/02/1831 Results 24hrs Laboratory Tests Test 12/01/18 17:50 12/01/18 18:50 12/01/18 19:00 12/02/18 05:31 White Blood Count 18.5 #H 15.9 H Red Blood Count 4.39 3.93 L Hemoglobin 11.8 L 10.7 L Hematocrit 37.4 33.3 L Mean Corpuscular 85.2 84.7 Volume Mean Corpuscular 26.9 L 27.2 L Hemoglobin Mean Corpuscular 31.6 L 32.1 Hemoglobin Concent Red Cell 14.7 H 14.7 H Distribution Width Platelet Count 354 317 Mean Platelet Volume 9.3 9.8 Immature 0.900 H 0.800 H Granulocytes % Neutrophils % 88.1 H 82.2 H Lymphocytes % 3.1 L 5.9 L Monocytes % 7.7 10.8 Eosinophils % 0.0 0.0 Basophils % 0.2 0.3 Nucleated Red Blood 0.0 0.0 Cells % Immature 0.170 H 0.130 H Granulocytes # Neutrophils # 16.3 H 13.1 H Lymphocytes # 0.6 L 0.9 Monocytes # 1.4 H 1.7 H Eosinophils # 0.0 0.0 Basophils # 0.0 0.0 Nucleated Red Blood 0.0 0.0 Cells # Sodium Level 136 140 Potassium Level 3.7 3.4 L Chloride Level 103 105 Carbon Dioxide Level 25 24 Anion Gap 8 11 Blood Urea Nitrogen 12 12 Creatinine 0.55 0.56 Est Glomerular Filtrat Rate mL/min Glucose Level 114 96 Calcium Level 8.9 8.5 Lactic Acid Level 1.0 Troponin I 0.027 Urine Color YELLOW Urine Clarity CLOUDY A Urine pH 5.0 Urine Specific 1.015 [place] Urine Ketones TRACE A Urine Nitrite POSITIVE A Urine Bilirubin NEGATIVE Urine Urobilinogen NEGATIVE Urine Leukocyte NEGATIVE Esterase Urine Microscopic 1 RBC Urine Microscopic 8 H WBC Urine Squamous MODERATE Epithelial Cells Urine Bacteria MANY A Urine Hemoglobin NEGATIVE Urine Glucose NEGATIVE Urine Total Protein NEGATIVE Hemoglobin A1c 5.4 Magnesium Level 1.8 Total Bilirubin 0.3 Direct Bilirubin 0.00 Indirect Bilirubin 0.3 Aspartate Amino 13 L Transf (AST/SGOT) Alanine 16 Aminotransferase (AL T/SGPT) Alkaline Phosphatase 55 Creatine Kinase 51 Total Protein 5.9 L Albumin 3.1 L Globulin 2.80 Albumin/Globulin 1.10 Ratio Triglycerides Level 57 Cholesterol Level 86 L LDL Cholesterol, 43 Calculated HDL Cholesterol 32 L Cholesterol/HDL 2.6 Ratio Thyroid Stimulating 0.655 Hormone (TSH) Exam/Review of Systems Exam Vitals Vital Signs Date Temp Pulse Resp B/P (MAP) Pulse Ox O2 O2 Flow FiO2 Time Delivery Rate 12/02/18 97.9 79 17 97/52 (67) 97 Room Air 08:03 Results Results 24hrs Laboratory Tests Test 12/01/18 17:50 12/01/18 18:50 12/01/18 19:00 12/02/18 05:31 White Blood Count 18.5 #H 15.9 H Red Blood Count 4.39 3.93 L Hemoglobin 11.8 L 10.7 L Hematocrit 37.4 33.3 L Mean Corpuscular 85.2 84.7 Volume Mean Corpuscular 26.9 L 27.2 L Hemoglobin Mean Corpuscular 31.6 L 32.1 Hemoglobin Concent Red Cell 14.7 H 14.7 H Distribution Width Platelet Count 354 317 Mean Platelet Volume 9.3 9.8 Immature 0.900 H 0.800 H Granulocytes % Neutrophils % 88.1 H 82.2 H Lymphocytes % 3.1 L 5.9 L Monocytes % 7.7 10.8 Eosinophils % 0.0 0.0 Basophils % 0.2 0.3 Nucleated Red Blood 0.0 0.0 Cells % Immature 0.170 H 0.130 H Granulocytes # Neutrophils # 16.3 H 13.1 H Lymphocytes # 0.6 L 0.9 Monocytes # 1.4 H 1.7 H Eosinophils # 0.0 0.0 Basophils # 0.0 0.0 Nucleated Red Blood 0.0 0.0 Cells # Sodium Level 136 140 Potassium Level 3.7 3.4 L Chloride Level 103 105 Carbon Dioxide Level 25 24 Anion Gap 8 11 Blood Urea Nitrogen 12 12 Creatinine 0.55 0.56 Est Glomerular Filtrat Rate mL/min Glucose Level 114 96 Calcium Level 8.9 8.5 Lactic Acid Level 1.0 Troponin I 0.027 Urine Color YELLOW Urine Clarity CLOUDY A Urine pH 5.0 Urine Specific 1.015 [place] Urine Ketones TRACE A Urine Nitrite POSITIVE A Urine Bilirubin NEGATIVE Urine Urobilinogen NEGATIVE Urine Leukocyte NEGATIVE Esterase Urine Microscopic 1 RBC Urine Microscopic 8 H WBC Urine Squamous MODERATE Epithelial Cells Urine Bacteria MANY A Urine Hemoglobin NEGATIVE Urine Glucose NEGATIVE Urine Total Protein NEGATIVE Hemoglobin A1c 5.4 Magnesium Level 1.8 Total Bilirubin 0.3 Direct Bilirubin 0.00 Indirect Bilirubin 0.3 Aspartate Amino 13 L Transf (AST/SGOT) Alanine 16 Aminotransferase (AL T/SGPT) Alkaline Phosphatase 55 Creatine Kinase 51 Total Protein 5.9 L Albumin 3.1 L Globulin 2.80 Albumin/Globulin 1.10 Ratio Triglycerides Level 57 Cholesterol Level 86 L LDL Cholesterol, 43 Calculated HDL Cholesterol 32 L Cholesterol/HDL 2.6 Ratio Thyroid Stimulating 0.655 Hormone (TSH) Medications Medication Current Medications Ondansetron HCl (Zofran Inj) 4 mg BRIDGE ORDER PRN IV NAUSEA/VOMITING; Start at 19:30; Stop 12/02/18 at 19:29 Acetaminophen (Tylenol Tab) 650 mg ER BRIDGE PRN PO .MILD PAIN 1-3 OR TEMP; Start 12/01/18 at 19:30; Stop 12/02/18 at 19:29 Acetaminophen (Tylenol Tab) 650 mg Q4 PRN PO MODERATE PAIN LEVEL 4-6 Last administered on 12/02/18at 04:53; Admin Dose 650 MG; Start 12/01/18 at 21:00 Albuterol (Ventolin Hfa) 2 puff Q4H PRN INH WHEEZING AND SOB; Start 12/01/18 at 21:00 Ascorbic Acid (Vitamin C) 500 mg BID PO Last administered on 12/02/18 09:20; Admin Dose 500 MG; Start 12/01/18 at 21:00 Bupropion HCl (Wellbutrin Xl) 300 mg DAILY PO Last administered on 12/02/18 09:20; Admin Dose 300 MG; Start 12/02/18 at 09:00 Cholecalciferol (Vitamin D) 1,000 unit DAILY PO Last administered on 12/02/18 09:21; Admin Dose 1,000 UNIT; Start 12/02/18 at 09:00 Diclofenac Sodium (Voltaren 1% Gel) 2 gm TID PRN TP PAIN; Start 12/01/18 at 21:00 Docusate Sodium (Colace) 100 mg BID PO Last administered on 12/02/18 09:21; Admin Dose 100 MG; Start 12/01/18 at 21:00 Levothyroxine Sodium (Synthroid) 100 mcg BEFORE BREAKFAST PO Last administered on 12/02/18 09:21; Admin Dose 100 MCG; Start 12/02/18 at 07:00 Lisinopril (Zestril) 5 mg DAILY PO ; Start 12/02/18 at 09:00 Magnesium Hydroxide (Milk Of Mag) 30 ml DAILY PRN PO CONSTIPATION; Start 12/01/18 at 21:00 Multivitamins Therapeutic (Theragran) 1 tab DAILY PO Last administered on 12/02/18 09:21; Admin Dose 1 TAB; Start 12/02/18 at 09:00 Sodium Biphosphate/ Sodium Phosphate (Fleet Enema) 133 ml DAILY PRN [place] CONSTIP ATION; Start 12/01/18 at 21:00 Polyethylene Glycol (Miralax) 17 gm DAILY PO Last administered on 12/02/18 09:22; Admin Dose 17 GM; Start 12/02/18 at 09:00 Senna (Senokot) 1 tab BID PO Last administered on 12/02/18at 09:20; Admin Dose 1 TAB; Start 12/01/18 at 21:00 Vitamin B Complex/ Vitamin C (Berocca) 1 cap DAILY PO Last administered on 12/02/18 09:20; Admin Dose 1 CAP; Start 12/02/18 at 09:00 Arformoterol Tartrate (Brovana (Neb)) 2 ml BID RESP THERAPY INH ; Start 12/01/18 at 22:30 Fish Oil (Fish Oil) 1,000 mg DAILY PO Last administered on 12/02/18 09:21; Admin Dose 1,000 MG; Start 12/02/18 at 09:00 Ceftriaxone Sodium 50 ml @ 100 mls/hr Q24H IVPB ; Start 12/02/18 at 18:00 IV Flush (NS 3 ml) 3 ml PER PROTOCOL IV ; Start 12/01/18 at 22:00 Ondansetron HCl (Zofran Inj) 4 mg Q6H PRN IV NAUSEA/VOMITING; Start 12/01/18 at 22:00 Acetaminophen (Tylenol Tab) 650 mg Q6H PRN PO .PAIN 1-3 OR TEMP; Start 12/01/18 at 22:00 Docusate Sodium (Colace) 100 mg Q12H PRN PO .CONSTIPATION; Start 12/01/18 at 22:00 Bisacodyl (Dulcolax) 5 mg DAILY PRN PO .CONSTIPATION; Start 12/01/18 at 22:00 Budesonide (Pulmicort (Neb)) 0.5 mg Q12H RESP THERAPY INH ; Start 12/01/18 at 23:00 Miscellaneous Information (Pending Santyl Order For Wound Care) This patient ruano... PRN PRN XX WOUND CARE; Start 12/02/18 at 00:00 Acetaminophen/ Hydrocodone Bitart ([place] (5/325)) 1 tab Q6H PRN PO MODERATE PAIN LEVEL 4-6 Last administered on 12/02/18at 06:03; Admin Dose 1 TAB; Start 12/02/18 at 05:30 Vancomycin HCl (Vanco Iv Per Pharmacy) VANCOMYCIN PER PHARMACY PER PROTOCOL XX ; Start 12/02/18 at 08:00 Vancomycin HCl 1.25 gm/Sodium Chloride 250 ml @ 83.333 mls/ hr ONCE IVPB Last administered on 12/02/18at 11:08; Admin Dose 83.333 MLS/HR; Start 12/02/18 at 10:00; Stop 12/02/18 at 12:59 Vancomycin/Sodium Chloride 250 ml @ 125 mls/hr Q12H IVPB ; Start 12/02/18 at 22:00 Collagenase (Santyl) 1 applic BID TOP ; Start 12/02/18 at 11:30 RANDY ROMERO Dec 02, 2018 11:55
[2018-12-02] MEDS ORDERED: POTASSIUM CHLORIDE (SR) 20 MEQ TAB PO ONE (12:00)
[2018-12-02] MEDS: COLLAGENASE 5 GM (UD JAR) TOP SCH ×2 (13:04→21:24)
[2018-12-02 14:15] VITALS: BP 130/56; PULSE 78; RESP 17
--- NOTE | 2018-12-02 15:13 | CONS ---
DATE OF ADMISSION: 12/01/2018 DATE OF CONSULTATION: 12/02/2018 TYPE OF CONSULTATION: Infectious disease. REASON FOR CONSULTATION: Antibiotic management. HISTORY OF PRESENT ILLNESS: Bobbi Baeza is a 73-year-old female who was transferred on the afte r mechanical fall with laceration to posterior head and right leg weakness. Patient was brought in b y ambulance from home after a ground level fall. She slipped off the side of her bed. She was just discharged from a half-way facility. She does use a walker but occasionally her left leg, whi ch is her bed leg, has cramps and gives out. The patient felt like her right leg was weak and feels that this is the reason why she fell. She hit the back of her head on the nightstand and sustained a laceration. She denies loss of consciousness or headaches. She complains of low back pain that is chronic for her. She is basically incontinent at baseline. She does not have any bowel incontinence . She has decreased sensation in the right lower extremity as well as the left but the left is chron ic. PAST SURGICAL HISTORY: Includes bilateral total knee replacements. She had hip surgery, right. ESR , she had a hysterectomy, back surgery, thumb surgery, lumbar laminectomy. PAST MEDICAL HISTORY: Include COPD, depression, metabolic syndrome, chronic pain syndrome. SOCIAL HABITS: She does not smoke, drink. She used to be a smoker, does not drink or abuse drugs. ALLERGIES: ANESTHETICS, CHOLINESTERASE INHIBITORS, SUCCINYLCHOLINE, HALOGENATED ANESTHETICS. FAMILY HISTORY: Positive for diabetes. PHYSICAL EXAMINATION: GENERAL: She is in no acute distress. VITAL SIGNS: Stable. She is afebrile. SKIN: Without generalized rash. HEENT: Within normal limits. NECK: Supple. LYMPH NODES: None palpable. CHEST: Decreased breath sounds at the bases. HEART: Without murmur or gallop. ABDOMEN: Soft, nontender, without organosplenomegaly or masses. EXTREMITIES: Without cyanosis or clubbing. RECTAL AND GENITAL: Deferred. NEUROLOGIC: Sensations are intact to the upper extremities. Strength diminished with flexion at the hip, bilateral lower extremities 4/5. ANCILLARY LABORATORY DATA: White count 18.5, H and H 11.8 and 37.4, platelet count 354,000. BUN and creatinine 12/0.55. Patient was started on ceftriaxone initially. Chest x-ray shows no acute abnor malities. CT of the head, no acute abnormalities. CT lumbar spine, no acute fractures, status post multilevel diskectomy and posterior fusion from L1-L3. There also has been diskectomy and anterior i nterbody fusion from L3-L5, severe spinal canal stenosis. CT of the spine level, T10-11 and numerous other problems related to her spine. She had mechanical fall. Probable urinary tract infection, st arted on ceftriaxone. She has degenerative disease of the spine. She has Gram-negative paulie urinary tract infection and her blood cultures are growing gram-positive cocci in pairs and chains, gram-nega tive rods in the urine. It is unclear where the gram-positive cocci, pairs and chains are coming fro m. The patient is currently on vancomycin and ceftriaxone. We want to do a 2D echocardiogram which was ordered and at a later date repeat blood cultures. I will dictate my findings to the hospitalist s. Dictated By: LUCAS MEJIAS MD, JD/NTS Conf#: [id number] DID#: [id number] CC: RAMA GIBBONS MD;*EndCC*
[2018-12-02] MEDS: CEFTRIAXONE 1 GM/50 ML (PMX) 50 ML IVPB SCH (17:53)
[2018-12-02 20:00] VITALS: BP 126/58; PULSE 85; RESP 18
[2018-12-02] MEDS: VANCOMYCIN 750 MG (PMX) 250 ML IVPB SCH (22:09)
[2018-12-03] MEDS: HYDROCODONE/APAP (5/325) TAB PO PRN ×2 (00:26→23:10)
[2018-12-03 02:00] VITALS: BP 102/58; PULSE 85; RESP 16
[2018-12-03] MEDS: LEVOTHYROXINE 100 MCG TAB PO SCH (07:22)
[2018-12-03 08:00] VITALS: BP 124/68; PULSE 84; RESP 17
[2018-12-03] MEDS: BUDESONIDE (NEB) 0.5MG/2ML AMP INH SCH ×2 (08:00→20:00)
--- NOTE | 2018-12-03 08:51 | RADRPT ---
Echocardiogram Report Patient Name: Yumiko UQARLES ID: [id number] : 1945 (73y 2m)Study Date: 12/02/2018 2:31:01 PM Gender: FAccession #: [id number] Tech: [place] Location: Ref.Physician: RANDY ROMERO Height(Cm): BSA: Weight(Kg): Quality: AdequateAccount #: Procedures: Echocardiographic Report: Transthoracic echocardiogram with complete 2D, M-Mode, and doppler examination. Indications: r/o vegetation. Measurements: 2D/M Mode Doppler Measurement Value Normal Range Measurement Value Normal Range LVIDd 2D 3.8 [ 3.8 - 5.2 ] cm AV Peak Will 1.9 [ 100.0 - 170.0 ] cm/sec LVIDs 2D 2.2 [ 2.2 - 3.5 ] cm AV Peak PG 14.0 [ 2.0 - 9.0 ] mmHg LVPWd 2D 1.1 [ 0.6 - 0.9 ] cm LVOT Peak Will 1.2 [ 70.0 - 110.0 ] cm/sec IVSd 2D 1.0 [ 0.6 - 0.9 ] cm LVOT Peak PG 6.0 [ 2.0 - 6.0 ] mmHg AoR Diam 2D 2.7 [ 2.3 - 3.1 ] cm MV E Peak Will 0.8 [ 60.0 - 130.0 ] cm/sec EDV 2D 61.2 [ 46.0 - 106.0 ] ml MV A Peak Will 0.9 [ 100.0 - 120.0 ] cm/sec ESV 2D 16.8 [ 14.0 - 42.0 ] ml MV E/A 0.9 [ 0.8 - 1.5 ] ratio EF 2D 72.5 [ 54.0 - 74.0 ] percent MV Decel Time 183 [ 104 - 258 ] msec LA Dimen 2D 3.2 [ 2.7 - 3.8 ] cm Lat E` Will 0.1 [ 10.0 - 15.0 ] cm/sec Lateral E/E` 8.7 [ 1.0 - 2.0 ] ratio Med E` Will 0.1 cm/sec MV E/A 0.9 [ 0.8 - 1.5 ] ratio TR Peak Will 2.7 [ 100.0 - 280.0 ] cm/sec TR Peak PG 28.0 mmHg RVSP 38.0 [ 10.0 - 36.0 ] mmHg RA Pressure 10.0 mmHg Findings: Left Ventricle: Normal left ventricular systolic function. Normal left ventricular cavity size. Mild concentric left ventricular hypertrophy. Ejection fraction is visually estimated at 55-60 %. Tissue Doppler/Mitral Doppler indices are consistent with impaired relaxation (Stage I diastolic dysfunction). Right Ventricle: Normal right ventricular size. Normal right ventricular systolic function. Left Atrium: The left atrium is normal in size. Right Atrium: The right atrium is normal in size. Mitral Valve: Mitral valve leaflets appear mildly thickened. Trace mitral regurgitation. Aortic Valve: No significant aortic stenosis or insufficiency. Aortic valve not well visualized. Tricuspid Valve: Normal appearance of the tricuspid valve. Estimated peak PA systolic pressure 38 mmHg. There is trace tricuspid regurgitation. Pulmonic Valve: Pulmonic valve not well visualized. Pericardium: Normal pericardium with no significant pericardial effusion. Aorta: Normal aortic root. IVC: Normal size and normal respiratory collapse consistent with normal right atrial pressure. Conclusions: Normal left ventricular systolic function. Normal left ventricular cavity size. Mild concentric left ventricular hypertrophy. Ejection fraction is visually estimated at 55-60 %. Tissue Doppler/Mitral Doppler indices are consistent with impaired relaxation (Stage I diastolic dysfunction). Mitral valve leaflets appear mildly thickened. Trace mitral regurgitation. No significant aortic stenosis or insufficiency. Aortic valve not well visualized. Normal appearance of the tricuspid valve. Estimated peak PA systolic pressure 38 mmHg. There is trace tricuspid regurgitation. no obvious vegetation is seen but fair quality study at best. Electronically Signed By: Ashu Mclean 2018-12-03 08:51:10 PDT
[2018-12-03] MEDS: VITAMIN B COMPLEX/VIT C CAP PO SCH (08:52)
[2018-12-03] MEDS: MULTIVITAMINS THERAPEUTIC TAB PO SCH (08:52)
[2018-12-03] MEDS: LISINOPRIL 5 MG TAB PO SCH (08:52)
[2018-12-03] MEDS: ASCORBIC ACID 500 MG TAB PO SCH ×2 (08:52→20:40)
[2018-12-03] MEDS: FISH OIL 1,000 MG CAP PO SCH (08:52)
[2018-12-03] MEDS: SENNA TAB PO SCH ×2 (08:53→20:40)
[2018-12-03] MEDS: DOCUSATE SODIUM 100 MG CAP PO SCH ×2 (08:53→20:40)
[2018-12-03] MEDS: CHOLECALCIFEROL 1,000 UNIT TAB PO SCH (08:53)
[2018-12-03] MEDS: POLYETHYLENE GLYCOL 17 GM PACKET PO SCH (08:53)
[2018-12-03] MEDS: COLLAGENASE 5 GM (UD JAR) TOP SCH ×2 (08:53→20:42)
[2018-12-03] MEDS: BUPROPION (XL) 150 MG TAB PO SCH (08:54)
[2018-12-03] MEDS: ARFORMOTEROL TARTRATE 15MCG/2 ML AMP INH SCH ×2 (09:00→20:00)
[2018-12-03] MEDS: VANCOMYCIN 750 MG (PMX) 250 ML IVPB SCH (09:49)
[2018-12-03 14:05] VITALS: BP 105/54; PULSE 78; RESP 17
--- NOTE | 2018-12-03 15:48 | CONS ---
Assessment/Plan Assessment/Plan Hospital Course (Demo Recall) Patient is alert looks comfortable denies pain no fevers overnight vital signs stable T-max yesterday was 100. WBC today 10.1 H&H 10.7 and 34.8 platelets 314 neutrophils 74.8 BUN 11 creatinine 0.55 Microbiology: Blood culture on admission grew strep galactorrhea, urine culture grew E. coli, MRSA swab negative, repeat blood cultures negative Diagnostics CT of the brain revealed no intracranial hemorrhage or skull fracture. Right lower extremity CT revealed status post right knee arthroplasty with small to moderate joint effusion and synovitis. 2 cm heterogeneous fluid attenuating focus with whitney-dural enhancement in the region of distal vastus intermedius. Small abscess cannot be excluded. Additional rounded fluid focus laterally may be extension of the supra patellar bursa fluid. Please see full report in the chart 2D echo revealed no vegetations Antimicrobials: Vancomycin, Rocephin Physical examination: This is well-developed well-nourished elderly woman who is alert in no distress. Head atraumatic normocephalic neck is supple. Chest rise symmetrical breath sounds clear. Heart: S1-S2. Abdomen soft, bowel tones present. Extremities with right knee erythema and some swelling however no pain on palpation Assessment: 1. Sepsis, present on admission 2. Streptococcal bacteremia 3. Right knee cellulitis rule out infected arthroplasty, status post total knee replacement 4. Urinary tract infection 5. History of left total knee replacement 6. History of multilevel discectomy and posterior fusion from L1-L3, please see CT in the chart Plan: Patient is clinically stable, repeat blood cultures negative, DC vancomycin, continue Rocephin, consider MRI of the spine and Orto evaluation to rule out septic right knee Consultation Date/Type/Reason Admit Date/Time Dec 01, 2018 at 19:24 Initial Consult Date Type of Consult id Date/Time of Note DATE: 12/03/18 TIME: 15:48 Exam/Review of Systems Exam Vitals Vital Signs Date Temp Pulse Resp B/P (MAP) Pulse Ox O2 O2 Flow FiO2 Time Delivery Rate 12/03/18 98.9 78 17 105/54 95 Room Air 14:05 (71) 12/02/18 21 20:30 Intake and Output 12/02/18 12/02/18 12/03/18 1515:00 23:00 07:00 IntakeIntake Total 250 ml 800 ml 490 ml BalanceBalance 250 ml 800 ml 490 ml Results Result Diagram: 12/03/18 0536 12/03/18 0536 Results 24hrs Laboratory Tests Test 12/03/18 05:36 White Blood Count 10.1 # Red Blood Count 4.01 L Hemoglobin 10.7 L Hematocrit 34.8 L Mean Corpuscular Volume 86.8 Mean Corpuscular Hemoglobin 26.7 L Mean Corpuscular Hemoglobin Concent 30.7 L Red Cell Distribution Width 15.0 H Platelet Count 314 Mean Platelet Volume 9.7 Immature Granulocytes % 0.900 H Neutrophils % 74.8 Lymphocytes % 12.5 L Monocytes % 11.2 H Eosinophils % 0.1 Basophils % 0.5 Nucleated Red Blood Cells % 0.0 Immature Granulocytes # 0.090 H Neutrophils # 7.5 Lymphocytes # 1.3 Monocytes # 1.1 H Eosinophils # 0.0 Basophils # 0.1 Nucleated Red Blood Cells # 0.0 Sodium Level 142 Potassium Level 3.9 Chloride Level 107 Carbon Dioxide Level 26 Anion Gap 9 Blood Urea Nitrogen 11 Creatinine 0.55 Est Glomerular Filtrat Rate mL/min Glucose Level 89 Calcium Level 8.7 Iron Level < 10 L Total Iron Binding Capacity 204 L Percent Iron Saturation Medications Medication Current Medications Acetaminophen (Tylenol Tab) 650 mg Q4 PRN PO MODERATE PAIN LEVEL 4-6 Last administered on 12/02/18at 04:53; Admin Dose 650 MG; Start 12/01/18 at 21:00 Albuterol (Ventolin Hfa) 2 puff Q4H PRN INH WHEEZING AND SOB; Start 12/01/18 at 21:00 Ascorbic Acid (Vitamin C) 500 mg BID PO Last administered on 12/03/18at 08:52; Admin Dose 500 MG; Start 12/01/18 at 21:00 Bupropion HCl (Wellbutrin Xl) 300 mg DAILY PO Last administered on 12/03/18at 08:54; Admin Dose 300 MG; Start 12/02/18 at 09:00 Cholecalciferol (Vitamin D) 1,000 unit DAILY PO Last administered on 12/03/18at 08:53; Admin Dose 1,000 UNIT; Start 12/02/18 at 09:00 Diclofenac Sodium (Voltaren 1% Gel) 2 gm TID PRN TP PAIN; Start 12/01/18 at 21:00 Docusate Sodium (Colace) 100 mg BID PO Last administered on 12/03/18 08:53; Admin Dose 100 MG; Start 12/01/18 at 21:00 Levothyroxine Sodium (Synthroid) 100 mcg BEFORE BREAKFAST PO Last administered on 12/03/18 07:22; Admin Dose 100 MCG; Start 12/02/18 at 07:00 Lisinopril (Zestril) 5 mg DAILY PO Last administered on 12/03/18 08:52; Admin Dose 5 MG; Start 12/02/18 at 09:00 Magnesium Hydroxide (Milk Of Mag) 30 ml DAILY PRN PO CONSTIPATION; Start 12/01/18 at 21:00 Multivitamins Therapeutic (Theragran) 1 tab DAILY PO Last administered on 12/03/18 08:52; Admin Dose 1 TAB; Start 12/02/18 at 09:00 Sodium Biphosphate/ Sodium Phosphate (Fleet Enema) 133 ml DAILY PRN [place] CONSTI PATION; Start 12/01/18 at 21:00 Polyethylene Glycol (Miralax) 17 gm DAILY PO Last administered on 12/03/18 08:53; Admin Dose 17 GM; Start 12/02/18 at 09:00 Senna (Senokot) 1 tab BID PO Last administered on 12/03/18 08:53; Admin Dose 1 TAB; Start 12/01/18 at 21:00 Vitamin B Complex/ Vitamin C (Berocca) 1 cap DAILY PO Last administered on 12/03/18 08:52; Admin Dose 1 CAP; Start 12/02/18 at 09:00 Arformoterol Tartrate (Brovana (Neb)) 2 ml BID RESP THERAPY INH Last administered on 12/02/18 20:33; Admin Dose 2 ML; Start 12/01/18 at 22:30 Fish Oil (Fish Oil) 1,000 mg DAILY PO Last administered on 12/03/18 08:52; Admin Dose 1,000 MG; Start 12/02/18 at 09:00 Ceftriaxone Sodium 50 ml @ 100 mls/hr Q24H IVPB Last administered on 12/02/18 17:53; Admin Dose 100 MLS/HR; Start 12/02/18 at 18:00 IV Flush (NS 3 ml) 3 ml PER PROTOCOL IV ; Start 12/01/18 at 22:00 Ondansetron HCl (Zofran Inj) 4 mg Q6H PRN IV NAUSEA/VOMITING; Start 12/01/18 at 22:00 Acetaminophen (Tylenol Tab) 650 mg Q6H PRN PO .PAIN 1-3 OR TEMP; Start 12/01/18 at 22:00 Docusate Sodium (Colace) 100 mg Q12H PRN PO .CONSTIPATION; Start 12/01/18 at 22:00 Bisacodyl (Dulcolax) 5 mg DAILY PRN PO .CONSTIPATION; Start 12/01/18 at 22:00 Budesonide (Pulmicort (Neb)) 0.5 mg Q12H RESP THERAPY INH Last administered on 12/02/18at 20:33; Admin Dose 0.5 MG; Start 12/01/18 at 23:00 Miscellaneous Information (Pending Santyl Order For Wound Care) This patient ruano... PRN PRN XX WOUND CARE; Start 12/02/18 at 00:00 Acetaminophen/ Hydrocodone Bitart ([place] (5/325)) 1 tab Q6H PRN PO MODERATE PAIN LEVEL 4-6 Last administered on 12/03/18at 00:26; Admin Dose 1 TAB; Start 12/02/18 at 05:30 Vancomycin HCl (Vanco Iv Per Pharmacy) VANCOMYCIN PER PHARMACY PER PROTOCOL XX ; Start 12/02/18 at 08:00 Vancomycin/Sodium Chloride 250 ml @ 125 mls/hr Q12H IVPB Last administered on 12/03/18at 09:49; Admin Dose 125 MLS/HR; Start 12/02/18 at 22:00 Collagenase (Santyl) 1 applic BID TOP Last administered on 12/03/18at 08:53; Admin Dose 1 APPLIC; Start 12/02/18 at 11:30 Miscellaneous Information (*Rx Drug Level Order Reminder*) 1 ONCE ONCE XX ; Start 12/03/18 at 21:00; Stop 12/03/18 at 21:01 OZZIE SOLOMON NP Dec 03, 2018 15:48
[2018-12-03] MEDS: CEFTRIAXONE 1 GM/50 ML (PMX) 50 ML IVPB SCH (17:42)
[2018-12-03 20:00] VITALS: BP 134/72; PULSE 86; RESP 18
[2018-12-04 02:00] VITALS: BP 129/64; PULSE 82; RESP 18
[2018-12-04] MEDS: LEVOTHYROXINE 100 MCG TAB PO SCH (06:30)
[2018-12-04] MEDS: HYDROCODONE/APAP (5/325) TAB PO PRN (06:49)
[2018-12-04] MEDS: BUDESONIDE (NEB) 0.5MG/2ML AMP INH SCH ×2 (08:00→20:29)
[2018-12-04] MEDS: ARFORMOTEROL TARTRATE 15MCG/2 ML AMP INH SCH ×2 (08:41→20:38)
[2018-12-04] MEDS: COLLAGENASE 5 GM (UD JAR) TOP SCH ×2 (08:57→21:53)
[2018-12-04] MEDS: BUPROPION (XL) 150 MG TAB PO SCH (08:58)
[2018-12-04] MEDS: CHOLECALCIFEROL 1,000 UNIT TAB PO SCH (08:58)
[2018-12-04] MEDS: MULTIVITAMINS THERAPEUTIC TAB PO SCH (08:58)
[2018-12-04] MEDS: FISH OIL 1,000 MG CAP PO SCH (08:58)
[2018-12-04] MEDS: POLYETHYLENE GLYCOL 17 GM PACKET PO SCH (08:58)
[2018-12-04] MEDS: ASCORBIC ACID 500 MG TAB PO SCH ×2 (08:58→21:53)
[2018-12-04] MEDS: VITAMIN B COMPLEX/VIT C CAP PO SCH (08:58)
[2018-12-04] MEDS: DOCUSATE SODIUM 100 MG CAP PO SCH ×2 (08:58→21:53)
[2018-12-04] MEDS: SENNA TAB PO SCH ×2 (08:58→21:53)
[2018-12-04] MEDS: LISINOPRIL 5 MG TAB PO SCH (08:59)
[2018-12-04 09:22] VITALS: BP 109/66; PULSE 96; RESP 18
--- NOTE | 2018-12-04 10:20 | PN ---
Date/Time of Note Date/Time of Note DATE: 12/04/18 TIME: 10:20 Assessment/Plan VTE Prophylaxis Risk score (from Ns)>0 risk: 6 SCD applied (from Nsg): Yes Pharmacological prophylaxis: other Lines/Catheters IV Catheter Type (from Nrsg): Saline Lock Urinary Cath still in place: No Assessment/Plan Hospital Course S: no new complaints, friends at bedside, we discussed plan of care O: Constitutional: alert, oriented Head: atraumatic, normocephalic Neck: non-tender, supple Respiratory: clear to auscultation Cardiovascular: regular rate and rhythm Gastrointestinal: S/ NT / ND / +BS Extremities: healing sacral ulcer assessment and plan: 73-year-old female brought in by ambulance from home after a ground-level fall #1 mechanical fall: -no spinal pathology, CT LE concerning for septic knee #2 right lower extremity weakness: -2/2 septic knee? #3 chronic spinal disease: - Patient does have a history of significant stenosis of her spine. Lumbar spine and thoracic spine do so signs of stenosis though no acute fractures. - Continue pain management. #4 osteoarthritis: Continue to monitor, pain management #5 urinary tract infection: -Gram negative rods, continue Ceftriaxone 1 g every 24 hours #6 Gm + bacteremia: likely from septic knee -bone scan shows no osteo #7 Hypokalemia: repleted #8 sacral ulcer. No osteo: wound care Dispo: Ortho consult for possible septic knee, f/u repeat blood cultures Result Diagram: 12/04/18 0533 12/04/18 0533 Results 24hrs Laboratory Tests Test 12/04/18 05:33 White Blood Count 7.4 # Red Blood Count 4.01 L Hemoglobin 10.4 L Hematocrit 35.0 L Mean Corpuscular Volume 87.3 Mean Corpuscular Hemoglobin 25.9 L Mean Corpuscular Hemoglobin Concent 29.7 L Red Cell Distribution Width 15.2 H Platelet Count 301 Mean Platelet Volume 9.9 Immature Granulocytes % 0.800 H Neutrophils % 71.0 Lymphocytes % 14.5 L Monocytes % 12.9 H Eosinophils % 0.3 Basophils % 0.5 Nucleated Red Blood Cells % 0.0 Immature Granulocytes # 0.060 H Neutrophils # 5.3 Lymphocytes # 1.1 Monocytes # 1.0 H Eosinophils # 0.0 Basophils # 0.0 Nucleated Red Blood Cells # 0.0 Sodium Level 143 Potassium Level 4.2 Chloride Level 106 Carbon Dioxide Level 27 Anion Gap 10 Blood Urea Nitrogen 12 Creatinine 0.51 Est Glomerular Filtrat Rate mL/min Glucose Level 107 Calcium Level 8.8 Exam/Review of Systems Exam Vitals Vital Signs Date Temp Pulse Resp B/P (MAP) Pulse Ox O2 O2 Flow FiO2 Time Delivery Rate 12/04/18 98.4 96 18 109/66 09:22 (80) 12/04/18 95 Room Air 02:00 12/02/18 21 20:30 Intake and Output 12/03/18 12/03/18 12/04/18 1414:59 22:59 06:59 IntakeIntake Total 250 ml 950 ml 240 ml OutputOutput Total 800 ml BalanceBalance 250 ml 150 ml 240 ml Results Results 24hrs Laboratory Tests Test 12/04/18 05:33 White Blood Count 7.4 # Red Blood Count 4.01 L Hemoglobin 10.4 L Hematocrit 35.0 L Mean Corpuscular Volume 87.3 Mean Corpuscular Hemoglobin 25.9 L Mean Corpuscular Hemoglobin Concent 29.7 L Red Cell Distribution Width 15.2 H Platelet Count 301 Mean Platelet Volume 9.9 Immature Granulocytes % 0.800 H Neutrophils % 71.0 Lymphocytes % 14.5 L Monocytes % 12.9 H Eosinophils % 0.3 Basophils % 0.5 Nucleated Red Blood Cells % 0.0 Immature Granulocytes # 0.060 H Neutrophils # 5.3 Lymphocytes # 1.1 Monocytes # 1.0 H Eosinophils # 0.0 Basophils # 0.0 Nucleated Red Blood Cells # 0.0 Sodium Level 143 Potassium Level 4.2 Chloride Level 106 Carbon Dioxide Level 27 Anion Gap 10 Blood Urea Nitrogen 12 Creatinine 0.51 Est Glomerular Filtrat Rate mL/min Glucose Level 107 Calcium Level 8.8 Medications Medication Current Medications Acetaminophen (Tylenol Tab) 650 mg Q4 PRN PO MODERATE PAIN LEVEL 4-6 Last administered on 12/02/18at 04:53; Admin Dose 650 MG; Start 12/01/18 at 21:00 Albuterol (Ventolin Hfa) 2 puff Q4H PRN INH WHEEZING AND SOB; Start 12/01/18 at 21:00 Ascorbic Acid (Vitamin C) 500 mg BID PO Last administered on 12/04/18at 08:58; Admin Dose 500 MG; Start 12/01/18 at 21:00 Bupropion HCl (Wellbutrin Xl) 300 mg DAILY PO Last administered on 12/04/18 08:58; Admin Dose 300 MG; Start 12/02/18 at 09:00 Cholecalciferol (Vitamin D) 1,000 unit DAILY PO Last administered on 12/04/18 08:58; Admin Dose 1,000 UNIT; Start 12/02/18 at 09:00 Diclofenac Sodium (Voltaren 1% Gel) 2 gm TID PRN TP PAIN; Start 12/01/18 at 21:00 Docusate Sodium (Colace) 100 mg BID PO Last administered on 12/04/18 08:58; Admin Dose 100 MG; Start 12/01/18 at 21:00 Levothyroxine Sodium (Synthroid) 100 mcg BEFORE BREAKFAST PO Last administered on 12/04/18 06:30; Admin Dose 100 MCG; Start 12/02/18 at 07:00 Lisinopril (Zestril) 5 mg DAILY PO Last administered on 12/04/18 08:59; Admin Dose 5 MG; Start 12/02/18 at 09:00 Magnesium Hydroxide (Milk Of Mag) 30 ml DAILY PRN PO CONSTIPATION; Start 12/01/18 at 21:00 Multivitamins Therapeutic (Theragran) 1 tab DAILY PO Last administered on 12/04/18 08:58; Admin Dose 1 TAB; Start 12/02/18 at 09:00 Sodium Biphosphate/ Sodium Phosphate (Fleet Enema) 133 ml DAILY PRN DC CONSTIPATION; Start 12/01/18 at 21:00 Polyethylene Glycol (Miralax) 17 gm DAILY PO Last administered on 12/04/18 08:58; Admin Dose 17 GM; Start 12/02/18 at 09:00 Senna (Senokot) 1 tab BID PO Last administered on 12/04/18 08:58; Admin Dose 1 TAB; Start 12/01/18 at 21:00 Vitamin B Complex/ Vitamin C (Berocca) 1 cap DAILY PO Last administered on 12/04/18 08:58; Admin Dose 1 CAP; Start 12/02/18 at 09:00 Arformoterol Tartrate (Brovana (Neb)) 2 ml BID RESP THERAPY INH Last administered on 12/02/18 20:33; Admin Dose 2 ML; Start 12/01/18 at 22:30 Fish Oil (Fish Oil) 1,000 mg DAILY PO Last administered on 12/04/18 08:58; Admin Dose 1,000 MG; Start 12/02/18 at 09:00 Ceftriaxone Sodium 50 ml @ 100 mls/hr Q24H IVPB Last administered on 12/03/18at 17:42; Admin Dose 100 MLS/HR; Start 12/02/18 at 18:00 IV Flush (NS 3 ml) 3 ml PER PROTOCOL IV ; Start 12/01/18 at 22:00 Ondansetron HCl (Zofran Inj) 4 mg Q6H PRN IV NAUSEA/VOMITING; Start 12/01/18 at 22:00 Acetaminophen (Tylenol Tab) 650 mg Q6H PRN PO .PAIN 1-3 OR TEMP; Start 12/01/18 at 22:00 Docusate Sodium (Colace) 100 mg Q12H PRN PO .CONSTIPATION; Start 12/01/18 at 22:00 Bisacodyl (Dulcolax) 5 mg DAILY PRN PO .CONSTIPATION; Start 12/01/18 at 22:00 Budesonide (Pulmicort (Neb)) 0.5 mg Q12H RESP THERAPY INH Last administered on 12/02/18at 20:33; Admin Dose 0.5 MG; Start 12/01/18 at 23:00 Miscellaneous Information (Pending Santyl Order For Wound Care) This patient ruano ... PRN PRN XX WOUND CARE; Start 12/02/18 at 00:00 Acetaminophen/ Hydrocodone Bitart ([place] (5/325)) 1 tab Q6H PRN PO MODERATE PAIN LEVEL 4-6 Last administered on 12/04/18at 06:49; Admin Dose 1 TAB; Start 12/02/18 at 05:30 Collagenase (Santyl) 1 applic BID TOP Last administered on 12/04/18 08:57; Admin Dose 1 APPLIC; Start 12/02/18 at 11:30 RANDY ROMERO Dec 04, 2018 10:20
--- NOTE | 2018-12-04 10:20 | EN ---
Date/Time of Note Date/Time of Note DATE of evaluation: 12/03/18 TIME: 08:20 Event Note Medicine Medicine Event Note S: feels basically the same, still weak RLE, has healing ulcer sacrum O: Constitutional: alert, oriented Head: atraumatic, normocephalic Neck: non-tender, supple Respiratory: clear to auscultation Cardiovascular: regular rate and rhythm Gastrointestinal: S/ NT / ND / +BS Extremities: healing sacral ulcer assessment and plan: 73-year-old female brought in by ambulance from home after a ground-level fall #1 mechanical fall: Possibly multifactorial secondary to spinal/muscular pathology and/or UTI. -CT spine just showed degenerative disease -unable to get MRI for multiple reasons -PT to ambulate -may be related to sepsis, #2 right lower extremity weakness: -f/u CT Lower extremity and intervene as indicated #3 chronic spinal disease: - Patient does have a history of significant stenosis of her spine. Lumbar spine and thoracic spine do so signs of stenosis though no acute fractures. - Continue pain management. #4 osteoarthritis: Continue to monitor, pain management #5 urinary tract infection: -Gram negative rods, continue Ceftriaxone 1 g every 24 hours #6 Gm + bacteremia from sacral ulcer? -different organism from UTI -continue Vanco -Bone scan to r/o spinal infection -echo showed no vegetation #7 Hypokalemia: replete #8 sacral ulcer r/o osteo: wound care Dispo: f/u CT report, f/u bone scan, continue abx, repeat blood cultures Vital Signs Date Temp Pulse Resp B/P (MAP) Pulse Ox O2 O2 Flow FiO2 Time Delivery Rate 12/03/18 98.9 78 17 105/54 95 Room Air 14:05 (71) 12/02/18 21 20:30 Intake and Output 12/02/18 12/02/18 12/03/18 1515:00 23:00 07:00 IntakeIntake Total 250 ml 800 ml 490 ml BalanceBalance 250 ml 800 ml 490 ml Results Result Diagram: 12/03/18 0536 12/03/1836 Results 24hrs Laboratory Tests Test 12/03/18 05:36 White Blood Count 10.1 # Red Blood Count 4.01 L Hemoglobin 10.7 L Hematocrit 34.8 L Mean Corpuscular Volume 86.8 Mean Corpuscular Hemoglobin 26.7 L Mean Corpuscular Hemoglobin Concent 30.7 L Red Cell Distribution Width 15.0 H Platelet Count 314 Mean Platelet Volume 9.7 Immature Granulocytes % 0.900 H Neutrophils % 74.8 Lymphocytes % 12.5 L Monocytes % 11.2 H Eosinophils % 0.1 Basophils % 0.5 Nucleated Red Blood Cells % 0.0 Immature Granulocytes # 0.090 H Neutrophils # 7.5 Lymphocytes # 1.3 Monocytes # 1.1 H Eosinophils # 0.0 Basophils # 0.1 Nucleated Red Blood Cells # 0.0 Sodium Level 142 Potassium Level 3.9 Chloride Level 107 Carbon Dioxide Level 26 Anion Gap 9 Blood Urea Nitrogen 11 Creatinine 0.55 Est Glomerular Filtrat Rate mL/min Glucose Level 89 Calcium Level 8.7 Iron Level < 10 L Total Iron Binding Capacity 204 L Percent Iron Saturation Medications Medication Current Medications Acetaminophen (Tylenol Tab) 650 mg Q4 PRN PO MODERATE PAIN LEVEL 4-6 Last administered on 12/02/18 04:53; Admin Dose 650 MG; Start 12/01/18 at 21:00 Albuterol (Ventolin Hfa) 2 puff Q4H PRN INH WHEEZING AND SOB; Start 12/01/18 at 21:00 Ascorbic Acid (Vitamin C) 500 mg BID PO Last administered on 12/03/18 08:52; Admin Dose 500 MG; Start 12/01/18 at 21:00 Bupropion HCl (Wellbutrin Xl) 300 mg DAILY PO Last administered on 12/03/18 08:54; Admin Dose 300 MG; Start 12/02/18 at 09:00 Cholecalciferol (Vitamin D) 1,000 unit DAILY PO Last administered on 12/03/18 08:53; Admin Dose 1,000 UNIT; Start 12/02/18 at 09:00 Diclofenac Sodium (Voltaren 1% Gel) 2 gm TID PRN TP PAIN; Start 12/01/18 at 21:00 Docusate Sodium (Colace) 100 mg BID PO Last administered on 12/03/18 08:53; Admin Dose 100 MG; Start 12/01/18 at 21:00 Levothyroxine Sodium (Synthroid) 100 mcg BEFORE BREAKFAST PO Last administered on 12/03/18 07:22; Admin Dose 100 MCG; Start 12/02/18 at 07:00 Lisinopril (Zestril) 5 mg DAILY PO Last administered on 12/03/18 08:52; Admin Dose 5 MG; Start 12/02/18 at 09:00 Magnesium Hydroxide (Milk Of Mag) 30 ml DAILY PRN PO CONSTIPATION; Start 12/01/18 at 21:00 Multivitamins Therapeutic (Theragran) 1 tab DAILY PO Last administered on 12/03 08:52; Admin Dose 1 TAB; Start 12/02/18 at 09:00 Sodium Biphosphate/ Sodium Phosphate (Fleet Enema) 133 ml DAILY PRN DC CONSTIPATION; Start 12/01/18 at 21:00 Polyethylene Glycol (Miralax) 17 gm DAILY PO Last administered on 12/03/18 08:53; Admin Dose 17 GM; Start 12/02/18 at 09:00 Senna (Senokot) 1 tab BID PO Last administered on 12/03/18 08:53; Admin Dose 1 TAB; Start 12/01/18 at 21:00 Vitamin B Complex/ Vitamin C (Berocca) 1 cap DAILY PO Last administered on 12/03/18 08:52; Admin Dose 1 CAP; Start 12/02/18 at 09:00 Arformoterol Tartrate (Brovana (Neb)) 2 ml BID RESP THERAPY INH Last administered on 12/02/18 20:33; Admin Dose 2 ML; Start 12/01/18 at 22:30 Fish Oil (Fish Oil) 1,000 mg DAILY PO Last administered on 12/03/18 08:52; Admin Dose 1,000 MG; Start 12/02/18 at 09:00 Ceftriaxone Sodium 50 ml @ 100 mls/hr Q24H IVPB Last administered on 12/02/18 17:53; Admin Dose 100 MLS/HR; Start 12/02/18 at 18:00 IV Flush (NS 3 ml) 3 ml PER PROTOCOL IV ; Start 12/01/18 at 22:00 Ondansetron HCl (Zofran Inj) 4 mg Q6H PRN IV NAUSEA/VOMITING; Start 12/01/18 at 22:00 Acetaminophen (Tylenol Tab) 650 mg Q6H PRN PO .PAIN 1-3 OR TEMP; Start 12/01/18 at 22:00 Docusate Sodium (Colace) 100 mg Q12H PRN PO .CONSTIPATION; Start 12/01/18 at 22:00 Bisacodyl (Dulcolax) 5 mg DAILY PRN PO .CONSTIPATION; Start 12/01/18 at 22:00 Budesonide (Pulmicort (Neb)) 0.5 mg Q12H RESP THERAPY INH Last administered on 12/02/18at 20:33; Admin Dose 0.5 MG; Start 12/01/18 at 23:00 Miscellaneous Information (Pending Santyl Order For Wound Care) This patient ruano... PRN PRN XX WOUND CARE; Start 12/02/18 at 00:00 Acetaminophen/ Hydrocodone Bitart ([place] (5/325)) 1 tab Q6H PRN PO MODERATE PAIN LEVEL 4-6 Last administered on 12/03/18at 00:26; Admin Dose 1 TAB; Start 12/02/18 at 05:30 Vancomycin HCl (Vanco Iv Per Pharmacy) VANCOMYCIN PER PHARMACY PER PROTOCOL XX ; Start 12/02/18 at 08:00 Vancomycin/Sodium Chloride 250 ml @ 125 mls/hr Q12H IVPB Last administered on 12/03/18at 09:49; Admin Dose 125 MLS/HR; Start 12/02/18 at 22:00 Collagenase (Santyl) 1 applic BID TOP Last administered on 12/03/18at 08:53; Admin Dose 1 APPLIC; Start 12/02/18 at 11:30 Miscellaneous Information (*Rx Drug Level Order Reminder*) 1 ONCE ONCE XX ; Start 12/03/18 at 21:00; Stop 12/03/18 at 21:01 ARNDY ROMERO Dec 04, 2018 10:20
[2018-12-04] MEDS: SOD FERRIC GLUC COMPLX 125 MG in SOD CHLORIDE 0.9% 100 ML IVPB SCH (13:03)
[2018-12-04 14:37] VITALS: BP 135/77; PULSE 79; RESP 18
--- NOTE | 2018-12-04 14:46 | CONS ---
Assessment/Plan Assessment/Plan Hospital Course (Demo Recall) Patient is alert feels good denies pain no fevers overnight vital signs stable Microbiology: Blood culture on admission grew strep galactorrhea, urine culture grew E. coli, MRSA swab negative, repeat blood cultures negative Diagnostics: CT of the brain revealed no intracranial hemorrhage or skull fracture. Right lower extremity CT revealed status post right knee arthroplasty with small to moderate joint effusion and synovitis. 2 cm heterogeneous fluid attenuating focus with whitney-dural enhancement in the region of distal vastus intermedius. Small abscess cannot be excluded. Additional rounded fluid focus laterally may be extension of the supra patellar bursa fluid. Please see full report in the chart. Bone scan was negative 2D echo revealed no vegetations Antimicrobials: Rocephin Physical examination: This is well-developed well-nourished elderly woman who is alert in no distress. Head atraumatic normocephalic neck is supple. Chest rise symmetrical breath sounds clear. Heart: S1-S2. Abdomen soft, bowel tones present. Extremities with right knee erythema and some swelling however no pain on palpation Assessment: 1. Status post sepsis, present on admission 2. Streptococcal bacteremia 3. Right knee cellulitis rule out infected arthroplasty, status post total knee replacement 4. Urinary tract infection 5. History of left total knee replacement 6. History of multilevel discectomy and posterior fusion from L1-L3, please see CT in the chart Plan: Patient is stable, repeat blood cultures negative, continue antibiotics, pending Ortho evaluation to rule out septic joint Discussed with Dr. Grey/sebastián pt Consultation Date/Type/Reason Admit Date/Time Dec 01, 2018 at 19:24 Initial Consult Date Type of Consult id Date/Time of Note DATE: 12/04/18 TIME: 14:45 Exam/Review of Systems Exam Vitals Vital Signs Date Temp Pulse Resp B/P (MAP) Pulse Ox O2 O2 Flow FiO2 Time Delivery Rate 12/04/18 98.4 79 18 135/77 95 Room Air 14:37 (96) 12/02/18 21 20:30 Intake and Output 12/03/18 12/03/18 12/04/18 1515:00 23:00 07:00 IntakeIntake Total 250 ml 950 ml 240 ml OutputOutput Total 800 ml BalanceBalance 250 ml 150 ml 240 ml Results Result Diagram: 12/04/18 0533 12/04/18 0533 Results 24hrs Laboratory Tests Test 12/04/18 05:30 12/04/18 05:33 Erythrocyte Sedimentation Rate 40 H C-Reactive Protein 23.3 H White Blood Count 7.4 # Red Blood Count 4.01 L Hemoglobin 10.4 L Hematocrit 35.0 L Mean Corpuscular Volume 87.3 Mean Corpuscular Hemoglobin 25.9 L Mean Corpuscular Hemoglobin Concent 29.7 L Red Cell Distribution Width 15.2 H Platelet Count 301 Mean Platelet Volume 9.9 Immature Granulocytes % 0.800 H Neutrophils % 71.0 Lymphocytes % 14.5 L Monocytes % 12.9 H Eosinophils % 0.3 Basophils % 0.5 Nucleated Red Blood Cells % 0.0 Immature Granulocytes # 0.060 H Neutrophils # 5.3 Lymphocytes # 1.1 Monocytes # 1.0 H Eosinophils # 0.0 Basophils # 0.0 Nucleated Red Blood Cells # 0.0 Sodium Level 143 Potassium Level 4.2 Chloride Level 106 Carbon Dioxide Level 27 Anion Gap 10 Blood Urea Nitrogen 12 Creatinine 0.51 Est Glomerular Filtrat Rate mL/min Glucose Level 107 Calcium Level 8.8 Medications Medication Current Medications Acetaminophen (Tylenol Tab) 650 mg Q4 PRN PO MODERATE PAIN LEVEL 4-6 Last administered on 12/02/18at 04:53; Admin Dose 650 MG; Start 12/01/18 at 21:00 Albuterol (Ventolin Hfa) 2 puff Q4H PRN INH WHEEZING AND SOB; Start 12/01/18 at 21:00 Ascorbic Acid (Vitamin C) 500 mg BID PO Last administered on 12/04/18at 08:58; Admin Dose 500 MG; Start 12/01/18 at 21:00 Bupropion HCl (Wellbutrin Xl) 300 mg DAILY PO Last administered on 12/04/18at 08:58; Admin Dose 300 MG; Start 12/02/18 at 09:00 Cholecalciferol (Vitamin D) 1,000 unit DAILY PO Last administered on 12/04/18at 08:58; Admin Dose 1,000 UNIT; Start 12/02/18 at 09:00 Diclofenac Sodium (Voltaren 1% Gel) 2 gm TID PRN TP PAIN; Start 12/01/18 at 21:00 Docusate Sodium (Colace) 100 mg BID PO Last administered on 12/04/18at 08:58; Admin Dose 100 MG; Start 12/01/18 at 21:00 Levothyroxine Sodium (Synthroid) 100 mcg BEFORE BREAKFAST PO Last administered on 12/04/18 06:30; Admin Dose 100 MCG; Start 12/02/18 at 07:00 Lisinopril (Zestril) 5 mg DAILY PO Last administered on 12/04/18 08:59; Admin Dose 5 MG; Start 12/02/18 at 09:00 Magnesium Hydroxide (Milk Of Mag) 30 ml DAILY PRN PO CONSTIPATION; Start 12/01/18 at 21:00 Multivitamins Therapeutic (Theragran) 1 tab DAILY PO Last administered on 12/04/18 08:58; Admin Dose 1 TAB; Start 12/02/18 at 09:00 Sodium Biphosphate/ Sodium Phosphate (Fleet Enema) 133 ml DAILY PRN SC CONSTIPATION; Start 12/01/18 at 21:00 Polyethylene Glycol (Miralax) 17 gm DAILY PO Last administered on 12/04/18 08:58; Admin Dose 17 GM; Start 12/02/18 at 09:00 Senna (Senokot) 1 tab BID PO Last administered on 12/04/18 08:58; Admin Dose 1 TAB; Start 12/01/18 at 21:00 Vitamin B Complex/ Vitamin C (Berocca) 1 cap DAILY PO Last administered on 12/04/18 08:58; Admin Dose 1 CAP; Start 12/02/18 at 09:00 Arformoterol Tartrate (Brovana (Neb)) 2 ml BID RESP THERAPY INH Last administered on 12/02/18 20:33; Admin Dose 2 ML; Start 12/01/18 at 22:30 Fish Oil (Fish Oil) 1,000 mg DAILY PO Last administered on 12/04/18 08:58; Admin Dose 1,000 MG; Start 12/02/18 at 09:00 Ceftriaxone Sodium 50 ml @ 100 mls/hr Q24H IVPB Last administered on 12/03/18 17:42; Admin Dose 100 MLS/HR; Start 12/02/18 at 18:00 IV Flush (NS 3 ml) 3 ml PER PROTOCOL IV ; Start 12/01/18 at 22:00 Ondansetron HCl (Zofran Inj) 4 mg Q6H PRN IV NAUSEA/VOMITING; Start 12/01/18 at 22:00 Acetaminophen (Tylenol Tab) 650 mg Q6H PRN PO .PAIN 1-3 OR TEMP; Start 12/01/18 at 22:00 Docusate Sodium (Colace) 100 mg Q12H PRN PO .CONSTIPATION; Start 12/01/18 at 22:00 Bisacodyl (Dulcolax) 5 mg DAILY PRN PO .CONSTIPATION; Start 12/01/18 at 22:00 Budesonide (Pulmicort (Neb)) 0.5 mg Q12H RESP THERAPY INH Last administered on 12/02/18at 20:33; Admin Dose 0.5 MG; Start 12/01/18 at 23:00 Miscellaneous Information (Pending Santyl Order For Wound Care) This patient runao... PRN PRN XX WOUND CARE; Start 12/02/18 at 00:00 Acetaminophen/ Hydrocodone Bitart ([place] (5/325)) 1 tab Q6H PRN PO MODERATE PAIN LEVEL 4-6 Last administered on 12/04/18 06:49; Admin Dose 1 TAB; Start 12/02/18 at 05:30 Collagenase (Santyl) 1 applic BID TOP Last administered on 12/04/18 08:57; Admin Dose 1 APPLIC; Start 12/02/18 at 11:30 Ferric Sodium Gluconate Complex 125 mg/Sodium Chloride 110 ml @ 110 mls/hr DA MIKKI@1300 IVPB Last administered on 12/04/18at 13:03; Admin Dose 110 MLS/HR; Start 12/04/18 at 13:00; Stop 12/08/18 at 13:59 OZZIE SOLOMON NP Dec 04, 2018 14:46
[2018-12-04] MEDS ORDERED: LIDOCAINE 1% (MPF) 30 ML INJ INJ PRN (17:30)
--- NOTE | 2018-12-04 17:30 | CONS ---
Assessment/Plan Assessment/Plan Hospital Course (Demo Recall) This is a 73-year-old female with new onset right total knee arthroplasty weakness and swelling for 3 days. She denies pain. She has good range of motion. However given her clinical scenario that she was bacteremic couple days ago and had a UTI along with the new effusion and slight erythema there is concern for acute hematogenous infection of the total knee arthroplasty. Patient denies symptoms of the right knee prior to 3 days ago. She states this was her good knee. X-rays show that this is a Depuy Sigma CR TKA Plan: Aspirate right total knee arthroplasty. Send fluid for synovial fluid cell count with differential, crystals, Gram stain, aerobic, anaerobic culture. If results are positive for infection she will require an irrigation debridement and poly-exchange which will be done tomorrow evening. Patient will need preoperative clearance if positive for infection. Assessment/Plan (Daily) Right knee aspiration procedure: Risks and benefits aspiration reviewed with patient. The risks include infection, failure, pain, swelling, nerve/tendon/ligament damage. The patient verbalized understanding and verbal consent was obtained prior to procedure. The right knee was prepped in a sterile fashion with alcohol and betadine the site of aspiration was confirmed. Lateral approach was used. The skin and capsule was anesthetized with 3mL 1% lidocaine careful not to inject intra- articularly. The right knee was aspirated. 25 mL of cloudy synovial fluid was aspirated. Good hemostasis was achieved and no complications noted. The patient tolerated the procedure well. Limit activity and ice for 24-48 hours Consultation Date/Type/Reason Admit Date/Time Dec 01, 2018 at 19:24 Date of Consultation: Dec 04, 2018 Reason for Consultation Right knee weakness and swelling Date/Time of Note DATE: 12/04/18 TIME: 17:29 Hx of Present Illness 73-year-old female with multiple medical problems is admitted to the hospital 3 days ago for falling and found to have elevated WBC count and UTI and bacteremia. She has been treated in the hospital with IV antibiotics and has been improving clinically. However the patient continued to complain of new onset weakness in her right knee times 3 days. Prior to this she did not have w eakness in her knee. She now has swelling in the knee which is not present prior. She denies any pain. States this is her good knee. She had multiple surgeries to this knee number of years ago including what seems to be an open meniscectomy followed by a unicompartmental knee arthroplasty followed by conversion to total knee arthroplasty at least 8-10 years ago. Patient also has significant lumbar spine disease and is status post surgery September 2018. She has left lower extremity weakness secondary to lumbar spine pathology. Patient denies any fevers or chills or previous history of infection in the knee. She denies any numbness and tingling in the right lower extremity. Patient denies fever, chills, shortness of breath, chest pain, nausea/vomiting, constipation, diarrhea, numbness, and tingling. Past Medical History COPD, depression, metabolic syndrome, chronic pain syndrome Home Meds Reported Medications Diclofenac Sodium* (Voltaren* Gel) 1% -100 Gm Gel, 2 GM TOP TID PRN for PAIN, #1 TUB apply to lower back 12/01/18 Cholecalciferol* (Vitamin D3*) 1,000 Unit Tablet, 1000 UNIT PO DAILY, TAB 12/01/18 Ascorbic Acid* (Vitamin C*) 500 Mg Capsule.sa, 500 MG PO BID, CAP 12/01/18 Budesonide-Formoterol Fumarate* (Symbicort*) 160-4.5 Hfa.aer.ad, 2 PUFF INHALATION BID, #1 EACH 12/01/18 Sennosides* (Senna Lax*) 8.6 Mg Tablet, 1 TAB PO BID, TAB 12/01/18 Albuterol Sulfate* (Proair HFA*) 8.5 Gm Hfa.aer.ad, 2 PUFF INH Q4H PRN for WHEE ZING AND SOB, #1 INHALER 12/01/18 Polyethylene Glycol* (Miralax*) 17 Gm Powd.pack, 17 GM PO DAILY, #30 PACKET HOLD FOR LOOSE STOOL MIX WITH 4-8oz of fluids 12/01/18 Hydrocodone/Acetaminophen ([place] 5-325 Tablet) 1 Each Tablet, 1 EACH PO Q6 PRN for MOD PAIN 4-7, TAB 12/01/18 Multivitamins* (Theragran*) 1 Tab Tab, 1 TAB PO DAILY, TAB 12/01/18 Lisinopril* (Lisinopril*) 5 Mg Tablet, 5 MG PO DAILY, #30 TAB HOLD FOR SBP<110 12/01/18 Levothyroxine Sodium* (Levoxyl*) 100 Mcg Tablet, 100 MCG PO BEFORE BREAKFAST, #30 TAB 12/01/18 [place]-3/Dha/Epa/Fish Oil (FISH OIL 1,000 MG SOFTGEL) 1 Each Capsule, 1 EACH PO DAILY, CAP 12/01/18 Docusate Sodium* (Colace*) 100 Mg Capsule, 100 MG PO BID, #60 CAP 12/01/18 Calcium Carbonate/Vitamin D3 (OYSTER SHELL 500 MG + VIT D TB) 1 Each Tablet, 1 EACH PO BID, TAB 12/01/18 Bupropion Hcl* (Bupropion XL*) 300 Mg Tab.sr.24h, 300 MG PO DAILY, TAB.SA 12/01/18 Na Phos,M-B/Na Phos,Di-Ba (ENEMA [id number]) 133 Ml Enema, 133 ML RC EVERY 3RD DAY PRN for CONSTIPATION, ENEMA 12/01/18 Bisacodyl (Dulcolax) 10 Mg Supp.rect, 10 MG RC PRN PRN for CONSTIPATION, SUPP.RECT 12/01/18 Magnesium Hydroxide* (Milk Of Magnesia*) 400 Mg/5 Ml Oral.susp, 30 ML PO DAILY PRN for CONSTIPATION, ML 12/01/18 Vitamin B Complex* (Vitamin B Complex*) 1 Each Tablet, 1 TAB PO DAILY, TAB 12/01/18 Acetaminophen* (Acetaminophen*) 650 Mg Tablet, 650 MG PO Q4 PRN for MODERATE PAIN LEVEL 4-6, #30 TAB 12/01/18 Discontinued Reported Medications Levothyroxine Sodium* (Levoxyl*) 100 Mcg Tablet, 100 MCG PO BEFORE BREAKFAST, #30 TAB 04/24/16 Tiotropium [place]* (Spiriva*) 18 Mcg Cap.w.dev, 1 CAP INHALATION DAILY, #30 CAP 12/05/15 Bupropion Hcl* (Bupropion XL*) 300 Mg Tab.sr.24h, 300 MG ORAL DAILY, #90 12/05/15 Gabapentin* (Gabapentin*) 300 Mg Capsule, 600 MG PO TID, #180 CAP 12/05/15 Nabumetone* (Nabumetone*) 500 Mg Tablet, 500 MG ORAL BID, #180 12/05/15 Lisinopril* (Lisinopril*) 5 Mg Tablet, 5 MG PO DAILY, #30 TAB 09/19/15 Discontinued Scripts Simvastatin* (Simvastatin*) 5 Mg Tablet, 5 MG PO QHS, #30 TAB Prov:LILLY JOSE MD 12/06/15 Medications Current Medications Acetaminophen (Tylenol Tab) 650 mg Q4 PRN PO MODERATE PAIN LEVEL 4-6 Last administered on 12/02/18 04:53; Admin Dose 650 MG; Start 12/01/18 at 21:00 Albuterol (Ventolin Hfa) 2 puff Q4H PRN INH WHEEZING AND SOB; Start 12/01/18 at 21:00 Ascorbic Acid (Vitamin C) 500 mg BID PO Last administered on 12/04/18 08:58; Admin Dose 500 MG; Start 12/01/18 at 21:00 Bupropion HCl (Wellbutrin Xl) 300 mg DAILY PO Last administered on 12/04/18 08:58; Admin Dose 300 MG; Start 12/02/18 at 09:00 Cholecalciferol (Vitamin D) 1,000 unit DAILY PO Last administered on 12/04/18 08:58; Admin Dose 1,000 UNIT; Start 12/02/18 at 09:00 Diclofenac Sodium (Voltaren 1% Gel) 2 gm TID PRN TP PAIN; Start 12/01/18 at 21:00 Docusate Sodium (Colace) 100 mg BID PO Last administered on 12/04/18 08:58; Admin Dose 100 MG; Start 12/01/18 at 21:00 Levothyroxine Sodium (Synthroid) 100 mcg BEFORE BREAKFAST PO Last administered on 12/04/18 06:30; Admin Dose 100 MCG; Start 12/02/18 at 07:00 Lisinopril (Zestril) 5 mg DAILY PO Last administered on 12/04/18 08:59; Admin Dose 5 MG; Start 12/02/18 at 09:00 Magnesium Hydroxide (Milk Of Mag) 30 ml DAILY PRN PO CONSTIPATION; Start 12/01/18 at 21:00 Multivitamins Therapeutic (Theragran) 1 tab DAILY PO Last administered on 12/04/18 08:58; Admin Dose 1 TAB; Start 12/02/18 at 09:00 Sodium Biphosphate/ Sodium Phosphate (Fleet Enema) 133 ml DAILY PRN [place] CONSTIPATION; Start 12/01/18 at 21:00 Polyethylene Glycol (Miralax) 17 gm DAILY PO Last administered on 12/04/18 08:58; Admin Dose 17 GM; Start 12/02/18 at 09:00 Senna (Senokot) 1 tab BID PO Last administered on 12/04/18 08:58; Admin Dose 1 TAB; Start 12/01/18 at 21:00 Vitamin B Complex/ Vitamin C (Berocca) 1 cap DAILY PO Last administered on 08:58; Admin Dose 1 CAP; Start 12/02/18 at 09:00 Arformoterol Tartrate (Brovana (Neb)) 2 ml BID RESP THERAPY INH Last administered on 12/02/18 20:33; Admin Dose 2 ML; Start 12/01/18 at 22:30 Fish Oil (Fish Oil) 1,000 mg DAILY PO Last administered on 12/04/18 08:58; Admin Dose 1,000 MG; Start 12/02/18 at 09:00 Ceftriaxone Sodium 50 ml @ 100 mls/hr Q24H IVPB Last administered on 12/03/18 17:42; Admin Dose 100 MLS/HR; Start 12/02/18 at 18:00 IV Flush (NS 3 ml) 3 ml PER PROTOCOL IV ; Start 12/01/18 at 22:00 Ondansetron HCl (Zofran Inj) 4 mg Q6H PRN IV NAUSEA/VOMITING; Start 12/01/18 at 22:00 Acetaminophen (Tylenol Tab) 650 mg Q6H PRN PO .PAIN 1-3 OR TEMP; Start 12/01/18 at 22:00 Docusate Sodium (Colace) 100 mg Q12H PRN PO .CONSTIPATION; Start 12/01/18 at 22:00 Bisacodyl (Dulcolax) 5 mg DAILY PRN PO .CONSTIPATION; Start 12/01/18 at 22:00 Budesonide (Pulmicort (Neb)) 0.5 mg Q12H RESP THERAPY INH Last administered on 12/02/18 20:33; Admin Dose 0.5 MG; Start 12/01/18 at 23:00 Miscellaneous Information (Pending Santyl Order For Wound Care) This patient ruano... PRN PRN XX WOUND CARE; Start 12/02/18 at 00:00 Acetaminophen/ Hydrocodone Bitart ([place] (5/325)) 1 tab Q6H PRN PO MODERATE PAIN LEVEL 4-6 Last administered on 12/04/18at 06:49; Admin Dose 1 TAB; Start 12/02/18 at 05:30 Collagenase (Santyl) 1 applic BID TOP Last administered on 12/04/18at 08:57; Admin Dose 1 APPLIC; Start 12/02/18 at 11:30 Ferric Sodium Gluconate Complex 125 mg/Sodium Chloride 110 ml @ 110 mls/hr DAILY@1300 IVPB Last administered on 12/04/18at 13:03; Admin Dose 110 MLS/HR; Start 12/04/18 at 13:00; Stop 12/08/18 at 13:59 Lidocaine (Xylocaine 1% (Mpf)) 30 ml ONCE PRN INJ aspiration ; Start 12/04/18 at 17:30 Allergies: Coded Allergies: Anesthetics - Amide Type (Verified Allergy, Unknown, 12/01/18) Cholinesterase Inhibitor(Carbamate) (Verified Allergy, Unknown, 12/01/18) succinylcholine (Verified Allergy, Unknown, 12/01/18) Uncoded Allergies: HALOGENATED (Allergy, Unknown, 12/01/18) Past Surgical History Total shoulder replacement Bilateral total hip arthroplasties Bilateral total knee arthroplasties Lumbar spine surgeon Social History Alcohol Use: none Smoking Status: Former smoker Drug Use: none Exam/Review of Systems Exam Vitals Vital Signs Date Temp Pulse Resp B/P (MAP) Pulse Ox O2 O2 Flow FiO2 Time Delivery Rate 12/04/18 98.4 79 18 135/77 95 Room Air 14:37 (96) 12/02/18 21 20:30 Intake and Output 12/03/18 12/03/18 12/04/18 1515:00 23:00 07:00 IntakeIntake Total 250 ml 950 ml 240 ml OutputOutput Total 800 ml BalanceBalance 250 ml 150 ml 240 ml Exam General: Awake, alert, in no acute distress, pleasant and cooperative Heart: regular rhythm Lungs: breathing comfortably, no tachypnea or dyspnea MUSCULOSKELETAL: Right lower extremity: Skin is intact. There is a well-healed midline incision extending from the distal thigh to the tibial tubercle. There is a well-healed incision over the medial aspect of the knee. There is subtle erythema around the knee. The knee is warm. There is a +3 effusion. The knee is nontender to palpation. The knee has near full range of motion 3 degrees of extension to at least 120 degrees of flexion. There is very subtle and likely insignificant mid flexion instability otherwise the knee is very stable. Sensation intact to light touch in a sural, saphenous, deep peroneal, superficial peroneal, medial and lateral plantar nerve distribution. Motor is intact, patient able to dorsiflex and plantarflex ankle and extend and flex great toe. Dorsalis Pedis pulse +2, Brisk capillary refill. Compartments are soft. Calves non-tender to palpation bilaterally. Results Result Diagram: 12/04/1853212/04/18532 Results 24hrs Laboratory Tests Test 12/04/18 05:30 12/04/18 05:33 Erythrocyte Sedimentation Rate 40 H C-Reactive Protein 23.3 H White Blood Count 7.4 # Red Blood Count 4.01 L Hemoglobin 10.4 L Hematocrit 35.0 L Mean Corpuscular Volume 87.3 Mean Corpuscular Hemoglobin 25.9 L Mean Corpuscular Hemoglobin Concent 29.7 L Red Cell Distribution Width 15.2 H Platelet Count 301 Mean Platelet Volume 9.9 Immature Granulocytes % 0.800 H Neutrophils % 71.0 Lymphocytes % 14.5 L Monocytes % 12.9 H Eosinophils % 0.3 Basophils % 0.5 Nucleated Red Blood Cells % 0.0 Immature Granulocytes # 0.060 H Neutrophils # 5.3 Lymphocytes # 1.1 Monocytes # 1.0 H Eosinophils # 0.0 Basophils # 0.0 Nucleated Red Blood Cells # 0.0 Sodium Level 143 Potassium Level 4.2 Chloride Level 106 Carbon Dioxide Level 27 Anion Gap 10 Blood Urea Nitrogen 12 Creatinine 0.51 Est Glomerular Filtrat Rate mL/min Glucose Level 107 Calcium Level 8.8 Imaging Imaging 3 views of the right knee demonstrate demonstrates right knee s/p TKA. Components in good position and alignment. There is a joint effusion. No signs of wear, osteolysis, loosening, component failure, or fracture. No acute complications. Medications Medication Current Medications Acetaminophen (Tylenol Tab) 650 mg Q4 PRN PO MODERATE PAIN LEVEL 4-6 Last administered on 12/02/18at 04:53; Admin Dose 650 MG; Start 12/01/18 at 21:00 Albuterol (Ventolin Hfa) 2 puff Q4H PRN INH WHEEZING AND SOB; Start 12/01/18 at 21:00 Ascorbic Acid (Vitamin C) 500 mg BID PO Last administered on 12/04/18 08:58; Admin Dose 500 MG; Start 12/01/18 at 21:00 Bupropion HCl (Wellbutrin Xl) 300 mg DAILY PO Last administered on 12/04/18 08:58; Admin Dose 300 MG; Start 12/02/18 at 09:00 Cholecalciferol (Vitamin D) 1,000 unit DAILY PO Last administered on 12/04/18 08:58; Admin Dose 1,000 UNIT; Start 12/02/18 at 09:00 Diclofenac Sodium (Voltaren 1% Gel) 2 gm TID PRN TP PAIN; Start 12/01/18 at 21:00 Docusate Sodium (Colace) 100 mg BID PO Last administered on 12/04/18 08:58; Admin Dose 100 MG; Start 12/01/18 at 21:00 Levothyroxine Sodium (Synthroid) 100 mcg BEFORE BREAKFAST PO Last administered on 12/04/18 06:30; Admin Dose 100 MCG; Start 12/02/18 at 07:00 Lisinopril (Zestril) 5 mg DAILY PO Last administered on 12/04/18 08:59; Admin Dose 5 MG; Start 12/02/18 at 09:00 Magnesium Hydroxide (Milk Of Mag) 30 ml DAILY PRN PO CONSTIPATION; Start 12/01/18 at 21:00 Multivitamins Therapeutic (Theragran) 1 tab DAILY PO Last administered on 12/04/18 08:58; Admin Dose 1 TAB; Start 12/02/18 at 09:00 Sodium Biphosphate/ Sodium Phosphate (Fleet Enema) 133 ml DAILY PRN [place] CONSTIPATION; Start 12/01/18 at 21:00 Polyethylene Glycol (Miralax) 17 gm DAILY PO Last administered on 12/04/18 08:58; Admin Dose 17 GM; Start 12/02/18 at 09:00 Senna (Senokot) 1 tab BID PO Last administered on 12/04/18 08:58; Admin Dose 1 TAB; Start 12/01/18 at 21:00 Vitamin B Complex/ Vitamin C (Berocca) 1 cap DAILY PO Last administered on 12/04/18 08:58; Admin Dose 1 CAP; Start 12/02/18 at 09:00 Arformoterol Tartrate (Brovana (Neb)) 2 ml BID RESP THERAPY INH Last administered on 12/02/18 20:33; Admin Dose 2 ML; Start 12/01/18 at 22:30 Fish Oil (Fish Oil) 1,000 mg DAILY PO Last administered on 12/04/18 08:58; Admin Dose 1,000 MG; Start 12/02/18 at 09:00 Ceftriaxone Sodium 50 ml @ 100 mls/hr Q24H IVPB Last administered on 12/03/18 17:42; Admin Dose 100 MLS/HR; Start 12/02/18 at 18:00 IV Flush (NS 3 ml) 3 ml PER PROTOCOL IV ; Start 12/01/18 at 22:00 Ondansetron HCl (Zofran Inj) 4 mg Q6H PRN IV NAUSEA/VOMITING; Start 12/01/18 at 22:00 Acetaminophen (Tylenol Tab) 650 mg Q6H PRN PO .PAIN 1-3 OR TEMP; Start 12/01/18 at 22:00 Docusate Sodium (Colace) 100 mg Q12H PRN PO .CONSTIPATION; Start 12/01/18 at 22:00 Bisacodyl (Dulcolax) 5 mg DAILY PRN PO .CONSTIPATION; Start 12/01/18 at 22:00 Budesonide (Pulmicort (Neb)) 0.5 mg Q12H RESP THERAPY INH Last administered on 12/02/18 20:33; Admin Dose 0.5 MG; Start 12/01/18 at 23:00 Miscellaneous Information (Pending Santyl Order For Wound Care) This patient ruano... PRN PRN XX WOUND CARE; Start 12/02/18 at 00:00 Acetaminophen/ Hydrocodone Bitart ([place] (5/325)) 1 tab Q6H PRN PO MODERATE PAIN LEVEL 4-6 Last administered on 12/04/18 06:49; Admin Dose 1 TAB; Start 12/02/18 at 05:30 Collagenase (Santyl) 1 applic BID TOP Last administered on 12/04/18 08:57; Admin Dose 1 APPLIC; Start 12/02/18 at 11:30 Ferric Sodium Gluconate Complex 125 mg/Sodium Chloride 110 ml @ 110 mls/hr DAILY@1300 IVPB Last administered on 12/04/18 13:03; Admin Dose 110 MLS/HR; Start 12/04/18 at 13:00; Stop 12/08/18 at 13:59 Lidocaine (Xylocaine 1% (Mpf)) 30 ml ONCE PRN INJ aspiration ; Start 12/04/18 at 17:30 EMIGDIO LUBIN MD Dec 04, 2018 17:30
[2018-12-04] MEDS: CEFTRIAXONE 1 GM/50 ML (PMX) 50 ML IVPB SCH (17:50)
[2018-12-04 20:16] VITALS: BP 115/69; PULSE 76; RESP 16
[2018-12-05] VITALS (23 sets, daily range): BP systolic 101–143; BP diastolic 57–70; PULSE 66–109; RESP 13–28
[2018-12-05] MEDS: HYDROCODONE/APAP (5/325) TAB PO PRN ×2 (00:12→06:07)
[2018-12-05] MEDS: LEVOTHYROXINE 100 MCG TAB PO SCH ×2 (05:36→06:07)
[2018-12-05] MEDS: BUDESONIDE (NEB) 0.5MG/2ML AMP INH SCH ×2 (08:00→20:00)
[2018-12-05] MEDS: ASCORBIC ACID 500 MG TAB PO SCH ×2 (08:18→21:00)
[2018-12-05] MEDS: VITAMIN B COMPLEX/VIT C CAP PO SCH (08:18)
[2018-12-05] MEDS: DOCUSATE SODIUM 100 MG CAP PO SCH ×2 (08:18→21:00)
[2018-12-05] MEDS: CHOLECALCIFEROL 1,000 UNIT TAB PO SCH (08:18)
[2018-12-05] MEDS: SENNA TAB PO SCH ×2 (08:18→21:00)
[2018-12-05] MEDS: MULTIVITAMINS THERAPEUTIC TAB PO SCH (08:18)
[2018-12-05] MEDS: COLLAGENASE 5 GM (UD JAR) TOP SCH ×2 (08:18→21:00)
[2018-12-05] MEDS: POLYETHYLENE GLYCOL 17 GM PACKET PO SCH (08:18)
[2018-12-05] MEDS: FISH OIL 1,000 MG CAP PO SCH (08:18)
[2018-12-05] MEDS: BUPROPION (XL) 150 MG TAB PO SCH (08:18)
[2018-12-05] MEDS: LISINOPRIL 5 MG TAB PO SCH (08:19)
[2018-12-05] MEDS: ARFORMOTEROL TARTRATE 15MCG/2 ML AMP INH SCH ×2 (08:38→20:00)
--- NOTE | 2018-12-05 11:12 | PREAC ---
Date/Time of Note Date/Time of Note DATE: 12/05/18 TIME: 11:06 Anesthesia Eval and Record Evaluation Time Pre-Procedure Interview DATE: 12/05/18 TIME: 11:06 Age 73 Sex female NPO: 8 hrs Preoperative diagnosis right knee cellulitis, new onset RIGHT TKA weakness and swelling Planned procedure I and D right knee Dr Glover Past Medical History Past Medical History: Includes Cardio: HTN, Dyslipidemia Endo: Hypothyroid, Other (metabolic syndrome) Pulm: COPD (denies hx smoking and denies home oxygen use) Neuro: Other (chronic pain, hx multiple discectomy and posterior lumbar fusion L1-L3, CHRONIC LEFT HIP PAIN ) Musculoskeletal: Osteoarthritis (s/p BILATERAL knee replacements) Psych: Depression Infection(s): Other (STREPTOCOCCAL BACTEREMIA) Surgery & Anesthesia Issues Hx of delayed emergence, Other issues (TESTED POSITIVE FOR ATYPICAL CHOLINESTERASE, DO NOT GIVE SUCCINYLCHOLINE. 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 PT DENIES FAMILY HISTORY OF MALIGNANT HYPERTHERMIA. ) Meds Anticoagulation: No Beta Braden within 24 hr: No Reason Beta Braden not given: Pt. not on B-Braden Reported Medications Diclofenac Sodium* (Voltaren* Gel) 1% -100 Gm Gel, 2 GM TOP TID PRN for PAIN, #1 TUB apply to lower back 12/01/18 Cholecalciferol* (Vitamin D3*) 1,000 Unit Tablet, 1000 UNIT PO DAILY, TAB 12/01/18 Ascorbic Acid* (Vitamin C*) 500 Mg Capsule.sa, 500 MG PO BID, CAP 12/01/18 Budesonide-Formoterol Fumarate* (Symbicort*) 160-4.5 Hfa.aer.ad, 2 PUFF INHALATION BID, #1 EACH 12/01/18 Sennosides* (Senna Lax*) 8.6 Mg Tablet, 1 TAB PO BID, TAB 12/01/18 Albuterol Sulfate* (Proair HFA*) 8.5 Gm Hfa.aer.ad, 2 PUFF INH Q4H PRN for WHEEZING AND SOB, #1 INHALER 12/01/18 Polyethylene Glycol* (Miralax*) 17 Gm Powd.pack, 17 GM PO DAILY, #30 PACKET HOLD FOR LOOSE STOOL MIX WITH 4-8oz of fluids 12/01/18 Hydrocodone/Acetaminophen ([place] 5-325 Tablet) 1 Each Tablet, 1 EACH PO Q6 PRN for MOD PAIN 4-7, TAB 12/01/18 Multivitamins* (Theragran*) 1 Tab Tab, 1 TAB PO DAILY, TAB 12/01/18 Lisinopril* (Lisinopril*) 5 Mg Tablet, 5 MG PO DAILY, #30 TAB HOLD FOR SBP<110 12/01/18 Levothyroxine Sodium* (Levoxyl*) 100 Mcg Tablet, 100 MCG PO BEFORE BREAKFAST, #30 TAB 12/01/18 [place]-3/Dha/Epa/Fish Oil (FISH OIL 1,000 MG SOFTGEL) 1 Each Capsule, 1 EACH PO DAILY, CAP 12/01/18 Docusate Sodium* (Colace*) 100 Mg Capsule, 100 MG PO BID, #60 CAP 12/01/18 Calcium Carbonate/Vitamin D3 (OYSTER SHELL 500 MG + VIT D TB) 1 Each Tablet, 1 EACH PO BID, TAB 12/01/18 Bupropion Hcl* (Bupropion XL*) 300 Mg Tab.sr.24h, 300 MG PO DAILY, TAB.SA 12/01/18 Na Phos,M-B/Na Phos,Di-Ba (ENEMA [id number]) 133 Ml Enema, 133 ML RC EVERY 3RD DAY PRN for CONSTIPATION, ENEMA 12/01/18 Bisacodyl (Dulcolax) 10 Mg Supp.rect, 10 MG RC PRN PRN for CONSTIPATION, SUPP.RECT 12/01/18 Magnesium Hydroxide* (Milk Of Magnesia*) 400 Mg/5 Ml Oral.susp, 30 ML PO DAILY PRN for CONSTIPATION, ML 12/01/18 Vitamin B Complex* (Vitamin B Complex*) 1 Each Tablet, 1 TAB PO DAILY, TAB 12/01/18 Acetaminophen* (Acetaminophen*) 650 Mg Tablet, 650 MG PO Q4 PRN for MODERATE PAIN LEVEL 4-6, #30 TAB 12/01/18 Discontinued Reported Medications Levothyroxine Sodium* (Levoxyl*) 100 Mcg Tablet, 100 MCG PO BEFORE BREAKFAST, #30 TAB 04/24/16 Tiotropium [place]* (Spiriva*) 18 Mcg Cap.w.dev, 1 CAP INHALATION DAILY, #30 CAP 12/05/15 Bupropion Hcl* (Bupropion XL*) 300 Mg Tab.sr.24h, 300 MG ORAL DAILY, #90 12/05/15 Gabapentin* (Gabapentin*) 300 Mg Capsule, 600 MG PO TID, #180 CAP 12/05/15 Nabumetone* (Nabumetone*) 500 Mg Tablet, 500 MG ORAL BID, #180 12/05/15 Lisinopril* (Lisinopril*) 5 Mg Tablet, 5 MG PO DAILY, #30 TAB 09/19/15 Discontinued Scripts Simvastatin* (Simvastatin*) 5 Mg Tablet, 5 MG PO QHS, #30 TAB Prov:LILLY JOSE MD 12/06/15 Current Medications Acetaminophen (Tylenol Tab) 650 mg Q4 PRN PO MODERATE PAIN LEVEL 4-6 Last administered on 12/02/18 04:53; Admin Dose 650 MG; Start 12/01/18 at 21:00 Albuterol (Ventolin Hfa) 2 puff Q4H PRN INH WHEEZING AND SOB; Start 12/01/18 at 21:00 Ascorbic Acid (Vitamin C) 500 mg BID PO Last administered on 12/05/18 08:18; Admin Dose 500 MG; Start 12/01/18 at 21:00 Bupropion HCl (Wellbutrin Xl) 300 mg DAILY PO Last administered on 12/05/18 08:18; Admin Dose 300 MG; Start 12/02/18 at 09:00 Cholecalciferol (Vitamin D) 1,000 unit DAILY PO Last administered on 12/05/18 08:18; Admin Dose 1,000 UNIT; Start 12/02/18 at 09:00 Diclofenac Sodium (Voltaren 1% Gel) 2 gm TID PRN TP PAIN; Start 12/01/18 at 21:00 Docusate Sodium (Colace) 100 mg BID PO Last administered on 12/05/18 08:18; Admin Dose 100 MG; Start 12/01/18 at 21:00 Levothyroxine Sodium (Synthroid) 100 mcg BEFORE BREAKFAST PO Last administered on 12/05/18 06:07; Admin Dose 100 MCG; Start 12/02/18 at 07:00 Lisinopril (Zestril) 5 mg DAILY PO Last administered on 12/05/18 08:19; Admin Dose 5 MG; Start 12/02/18 at 09:00 Magnesium Hydroxide (Milk Of Mag) 30 ml DAILY PRN PO CONSTIPATION; Start 12/01/18 at 21:00 Multivitamins Therapeutic (Theragran) 1 tab DAILY PO Last administered on 12/05/18 08:18; Admin Dose 1 TAB; Start 12/02/18 at 09:00 Sodium Biphosphate/ Sodium Phosphate (Fleet Enema) 133 ml DAILY PRN [place] CONSTIPATION; Start 12/01/18 at 21:00 Polyethylene Glycol (Miralax) 17 gm DAILY PO Last administered on 12/05/18 08:18; Admin Dose 17 GM; Start 12/02/18 at 09:00 Senna (Senokot) 1 tab BID PO Last administered on 12/05/18 08:18; Admin Dose 1 TAB; Start 12/01/18 at 21:00 Vitamin B Complex/ Vitamin C (Berocca) 1 cap DAILY PO Last administered on 12/05/18 08:18; Admin Dose 1 CAP; Start 12/02/18 at 09:00 Arformoterol Tartrate (Brovana (Neb)) 2 ml BID RESP THERAPY INH Last administered on 12/04/18 20:38; Admin Dose 2 ML; Start 12/01/18 at 22:30 Fish Oil (Fish Oil) 1,000 mg DAILY PO Last administered on 12/05/18 08:18; Admin Dose 1,000 MG; Start 12/02/18 at 09:00 Ceftriaxone Sodium 50 ml @ 100 mls/hr Q24H IVPB Last administered on 12/04/18 17:50; Admin Dose 100 MLS/HR; Start 12/02/18 at 18:00 IV Flush (NS 3 ml) 3 ml PER PROTOCOL IV ; Start 12/01/18 at 22:00 Ondansetron HCl (Zofran Inj) 4 mg Q6H PRN IV NAUSEA/VOMITING; Start 12/01/18 at 22:00 Acetaminophen (Tylenol Tab) 650 mg Q6H PRN PO .PAIN 1-3 OR TEMP; Start 12/01/18 at 22:00 Docusate Sodium (Colace) 100 mg Q12H PRN PO .CONSTIPATION; Start 12/01/18 at 22:00 Bisacodyl (Dulcolax) 5 mg DAILY PRN PO .CONSTIPATION; Start 12/01/18 at 22:00 Budesonide (Pulmicort (Neb)) 0.5 mg Q12H RESP THERAPY INH Last administered on 12/04/18at 20:29; Admin Dose 0.5 MG; Start 12/01/18 at 23:00 Miscellaneous Information (Pending Santyl Order For Wound Care) This patient ruano... PRN PRN XX WOUND CARE; Start 12/02/18 at 00:00 Acetaminophen/ Hydrocodone Bitart ([place] (5/325)) 1 tab Q6H PRN PO MODERATE PAIN LEVEL 4-6 Last administered on 12/05/18at 06:07; Admin Dose 1 TAB; Start 12/02/18 at 05:30 Collagenase (Santyl) 1 applic BID TOP Last administered on 12/05/18at 08:18; Admin Dose 1 APPLIC; Start 12/02/18 at 11:30 Ferric Sodium Gluconate Complex 125 mg/Sodium Chloride 110 ml @ 110 mls/hr DAILY@1300 IVPB Last administered on 12/04/18at 13:03; Admin Dose 110 MLS/HR; Start 12/04/18 at 13:00; Stop 12/08/18 at 13:59 Lidocaine (Xylocaine 1% (Mpf)) 30 ml ONCE PRN INJ aspiration ; Start 12/04/18 at 17:30 Meds reviewed: Yes Allergies Coded Allergies: Anesthetics - Amide Type (Verified Allergy, Unknown, 12/01/18) Cholinesterase Inhibitor(Carbamate) (Verified Allergy, Unknown, 12/01/18) succinylcholine (Verified Allergy, Unknown, 12/01/18) Uncoded Allergies: HALOGENATED (Allergy, Unknown, 12/01/18) Allergies Reviewed: Yes Labs/Studies Labs Reviewed: Reviewed by anesthesiologist Result Diagram: 12/05/18 0803 12/05/18 0803 Laboratory Tests 12/05/18 08:03 test: N/A Studies: ECG (NSR), 2D Echo (12/02/18 ECHO ef 60% TRACE MITRAL REGURGITATION ) Pre-procedure Exam Last vitals Vital Signs Date Temp Pulse Resp B/P (MAP) Pulse Ox O2 O2 Flow FiO2 Time Delivery Rate 12/05/18 98.3 71 16 127/60 93 Room Air 07:25 (82) 12/04/18 21 20:31 Airway: Adequate mouth opening, Adequate thyromental dist Mallampati: Mallampati II Teeth: Normal Lung: Normal Heart: Normal ASA Physical Status ASA physical status: 3 Emergency: E Planned Anesthetic General/MAC: LMA Planned Pain Management Parenteral pain med, Local by surgeon Pre-operative Attestations Prior to commencing anesthesia and surgery, the patient was re-evaluated, there was verification of: *The patient's identity *The results of appropriate recent lab work and preoperative vital signs *The above evaluation not changing prior to induction *Anesthetic plan, risk benefits, alternative and complications discussed with patient/family; questions answered; patient/family understands, accepts and wishes to proceed. LYLE PAIGE Dec 05, 2018 11:12
--- NOTE | 2018-12-05 12:13 | CONS ---
Assessment/Plan Assessment/Plan Hospital Course (Demo Recall) Patient is alert looks comfortable, no fevers Microbiology: Blood culture on admission grew strep galactorrhea, urine culture grew E. coli, MRSA swab negative, repeat blood cultures negative Diagnostics: CT of the brain revealed no intracranial hemorrhage or skull fracture. Right lower extremity CT revealed status post right knee arthroplasty with small to moderate joint effusion and synovitis. 2 cm heterogeneous fluid attenuating focus with whitney-dural enhancement in the region of distal vastus intermedius. Small abscess cannot be excluded. Additional rounded fluid focus laterally may be extension of the supra patellar bursa fluid. Please see full report in the chart. Bone scan was negative 2D echo revealed no vegetations Antimicrobials: Rocephin Physical examination: This is well-developed well-nourished elderly woman who is alert in no distress. Head atraumatic normocephalic neck is supple. Chest rise symmetrical breath sounds clear. Heart: S1-S2. Abdomen soft, bowel tones present. Extremities with right knee erythema and swelling Assessment: 1. Status post sepsis, present on admission 2. Streptococcal bacteremia 2 to 3. Right knee infected arthroplasty, status post total knee replacement 4. Urinary tract infection 5. History of left total knee replacement 6. History of multilevel discectomy and posterior fusion from L1-L3, please see CT in the chart Plan: Remains stable, ortho rec-n noted, plan for I&D poly exchange. Pt will require 6 weeks of IV Rocephin, consider PICC Discussed with Dr. Grey/sebastián pt Consultation Date/Type/Reason Admit Date/Time Dec 01, 2018 at 19:24 Initial Consult Date Type of Consult id Date/Time of Note DATE: 12/05/18 TIME: 12:08 Exam/Review of Systems Exam Vitals Vital Signs Date Temp Pulse Resp B/P (MAP) Pulse Ox O2 O2 Flow FiO2 Time Delivery Rate 12/05/18 98.3 71 16 127/60 93 Room Air 07:25 (82) 12/04/18 21 20:31 Intake and Output 12/04/18 12/04/18 12/05/18 1515:00 23:00 07:00 IntakeIntake Total 350 ml 530 ml BalanceBalance 350 ml 530 ml Results Result Diagram: 12/05/18 0803 12/05/18 0803 Results 24hrs Laboratory Tests Test 12/04/18 17:45 12/04/18 21:07 12/05/18 08:03 Synovial Fluid Source RIGHT KNEE Synovial Fluid Color YELLOW Synovial Fluid Appearance CLOUDY Synovial Fluid Volume 20.0 H Synovial Fluid WBC 37319 H Synovial Fluid Polynuclear WBCs 96.5 H % Synovial Fluid Mononuclear WBCs 3.5 % Synovial Fluid Crystals NO CRYSTALS SEEN Prothrombin Time 13.2 Prothrombin Time Ratio 1.0 INR International 0.99 Normalized Ratio White Blood Count 6.2 Red Blood Count 3.93 L Hemoglobin 10.3 L Hematocrit 33.4 L Mean Corpuscular Volume 85.0 Mean Corpuscular Hemoglobin 26.2 L Mean Corpuscular 30.8 L Hemoglobin Concent Red Cell Distribution Width 15.2 H Platelet Count 337 Mean Platelet Volume 9.8 Immature Granulocytes % 0.500 H Neutrophils % 68.5 Lymphocytes % 16.4 Monocytes % 13.5 H Eosinophils % 0.6 Basophils % 0.5 Nucleated Red Blood Cells % 0.0 Immature Granulocytes # 0.030 Neutrophils # 4.3 Lymphocytes # 1.0 Monocytes # 0.8 Eosinophils # 0.0 Basophils # 0.0 Nucleated Red Blood Cells # 0.0 Sodium Level 142 Potassium Level 3.8 Chloride Level 106 Carbon Dioxide Level 27 Anion Gap 9 Blood Urea Nitrogen 10 Creatinine 0.47 Est Glomerular Filtrat Rate mL/min Glucose Level 118 Calcium Level 8.8 Medications Medication Current Medications Acetaminophen (Tylenol Tab) 650 mg Q4 PRN PO MODERATE PAIN LEVEL 4-6 Last administered on 12/02/18at 04:53; Admin Dose 650 MG; Start 12/01/18 at 21:00 Albuterol (Ventolin Hfa) 2 puff Q4H PRN INH WHEEZING AND SOB; Start 12/01/18 at 21:00 Ascorbic Acid (Vitamin C) 500 mg BID PO Last administered on 12/05/18at 08:18; Admin Dose 500 MG; Start 12/01/18 at 21:00 Bupropion HCl (Wellbutrin Xl) 300 mg DAILY PO Last administered on 12/05/18 08:18; Admin Dose 300 MG; Start 12/02/18 at 09:00 Cholecalciferol (Vitamin D) 1,000 unit DAILY PO Last administered on 12/05/18at 08:18; Admin Dose 1,000 UNIT; Start 12/02/18 at 09:00 Diclofenac Sodium (Voltaren 1% Gel) 2 gm TID PRN TP PAIN; Start 12/01/18 at 21:00 Docusate Sodium (Colace) 100 mg BID PO Last administered on 12/05/18 08:18; Admin Dose 100 MG; Start 12/01/18 at 21:00 Levothyroxine Sodium (Synthroid) 100 mcg BEFORE BREAKFAST PO Last administered on 12/05/18 06:07; Admin Dose 100 MCG; Start 12/02/18 at 07:00 Lisinopril (Zestril) 5 mg DAILY PO Last administered on 12/05/18 08:19; Admin Dose 5 MG; Start 12/02/18 at 09:00 Magnesium Hydroxide (Milk Of Mag) 30 ml DAILY PRN PO CONSTIPATION; Start 12/01/18 at 21:00 Multivitamins Therapeutic (Theragran) 1 tab DAILY PO Last administered on 08:18; Admin Dose 1 TAB; Start 12/02/18 at 09:00 Sodium Biphosphate/ Sodium Phosphate (Fleet Enema) 133 ml DAILY PRN [place] CONSTIPATION; Start 12/01/18 at 21:00 Polyethylene Glycol (Miralax) 17 gm DAILY PO Last administered on 12/05/18 08:18; Admin Dose 17 GM; Start 12/02/18 at 09:00 Senna (Senokot) 1 tab BID PO Last administered on 12/05/18 08:18; Admin Dose 1 TAB; Start 12/01/18 at 21:00 Vitamin B Complex/ Vitamin C (Berocca) 1 cap DAILY PO Last administered on 12/05/18 08:18; Admin Dose 1 CAP; Start 12/02/18 at 09:00 Arformoterol Tartrate (Brovana (Neb)) 2 ml BID RESP THERAPY INH Last administered on 12/04/18 20:38; Admin Dose 2 ML; Start 12/01/18 at 22:30 Fish Oil (Fish Oil) 1,000 mg DAILY PO Last administered on 12/05/18 08:18; Admin Dose 1,000 MG; Start 12/02/18 at 09:00 Ceftriaxone Sodium 50 ml @ 100 mls/hr Q24H IVPB Last administered on 12/04/18 17:50; Admin Dose 100 MLS/HR; Start 12/02/18 at 18:00 IV Flush (NS 3 ml) 3 ml PER PROTOCOL IV ; Start 12/01/18 at 22:00 Ondansetron HCl (Zofran Inj) 4 mg Q6H PRN IV NAUSEA/VOMITING; Start 12/01/18 at 22:00 Acetaminophen (Tylenol Tab) 650 mg Q6H PRN PO .PAIN 1-3 OR TEMP; Start 12/01/18 at 22:00 Docusate Sodium (Colace) 100 mg Q12H PRN PO .CONSTIPATION; Start 12/01/18 at 22:00 Bisacodyl (Dulcolax) 5 mg DAILY PRN PO .CONSTIPATION; Start 12/01/18 at 22:00 Budesonide (Pulmicort (Neb)) 0.5 mg Q12H RESP THERAPY INH Last administered on 12/04/18at 20:29; Admin Dose 0.5 MG; Start 12/01/18 at 23:00 Miscellaneous Information (Pending Santyl Order For Wound Care) This patient ruano... PRN PRN XX WOUND CARE; Start 12/02/18 at 00:00 Acetaminophen/ Hydrocodone Bitart ([place] (5/325)) 1 tab Q6H PRN PO MODERATE PAIN LEVEL 4-6 Last administered on 12/05/18 06:07; Admin Dose 1 TAB; Start 12/02/18 at 05:30 Collagenase (Santyl) 1 applic BID TOP Last administered on 12/05/18at 08:18; Admin Dose 1 APPLIC; Start 12/02/18 at 11:30 Ferric Sodium Gluconate Complex 125 mg/Sodium Chloride 110 ml @ 110 mls/hr DAILY@1300 IVPB Last administered on 12/04/18at 13:03; Admin Dose 110 MLS/HR; Start 12/04/18 at 13:00; Stop 12/08/18 at 13:59 Lidocaine (Xylocaine 1% (Mpf)) 30 ml ONCE PRN INJ aspiration ; Start 12/04/18 at 17:30 OZZIE SOLOMON NP Dec 05, 2018 12:13
[2018-12-05] MEDS: SOD FERRIC GLUC COMPLX 125 MG in SOD CHLORIDE 0.9% 100 ML IVPB SCH (12:31)
--- NOTE | 2018-12-05 16:25 | CONS ---
Assessment/Plan Assessment/Plan Hospital Course (Demo Recall) Preoperative cardiac risk stratification Septic arthritis Preserved ejection fraction Hypertension -Patient with septic arthritis requiring I&D -ECG with no significant ischemic abnormalities, echocardiogram with preserved ejection fraction. Patient states she is able to climb 1 flight of stairs which she was doing rehab as well as ambulate with her walker without symptoms of exertional chest pain or shortness of breath. -Given risk factors, patient is at an intermediate risk for any untoward cardiac events for her procedure. The benefits likely outweigh the risks. Consultation Date/Type/Reason Admit Date/Time Dec 01, 2018 at 19:24 Type of Consult Cardiology Reason for Consultation Preoperative cardiac risk stratification Date/Time of Note DATE: 12/05/18 TIME: 16:25 Hx of Present Illness This is a 73-year-old female who presents with worsening lower extremity pain 3- 4 days prior to admission. Patient found to have possible septic arthritis and is planned for incision and drainage. At baseline, patient denies any exertional chest pain or shortness of breath. Her activity has been limited secondary to recent orthopedic surgery. At her rehab facility, she was able to climb 1 flight of stairs, she was able to ambulate with a walker without symptoms of exertional chest pain, shortness of breath, dizziness or lightheadedness. She also denies any palpitations at rest or with activity. 12 point review of systems was performed with all pertinent positives and negatives mentioned above and all else is negative Past Medical History Medical History: hypertension, hypothyroid Home Meds Reported Medications Diclofenac Sodium* (Voltaren* Gel) 1% -100 Gm Gel, 2 GM TOP TID PRN for PAIN, #1 TUB apply to lower back 12/01/18 Cholecalciferol* (Vitamin D3*) 1,000 Unit Tablet, 1000 UNIT PO DAILY, TAB 12/01/18 Ascorbic Acid* (Vitamin C*) 500 Mg Capsule.sa, 500 MG PO BID, CAP 12/01/18 Budesonide-Formoterol Fumarate* (Symbicort*) 160-4.5 Hfa.aer.ad, 2 PUFF INHALATION BID, #1 EACH 12/01/18 Sennosides* (Senna Lax*) 8.6 Mg Tablet, 1 TAB PO BID, TAB 12/01/18 Albuterol Sulfate* (Proair HFA*) 8.5 Gm Hfa.aer.ad, 2 PUFF INH Q4H PRN for WHEEZING AND SOB, #1 INHALER 12/01/18 Polyethylene Glycol* (Miralax*) 17 Gm Powd.pack, 17 GM PO DAILY, #30 PACKET HOLD FOR LOOSE STOOL MIX WITH 4-8oz of fluids 12/01/18 Hydrocodone/Acetaminophen ([place] 5-325 Tablet) 1 Each Tablet, 1 EACH PO Q6 PRN for MOD PAIN 4-7, TAB 12/01/18 Multivitamins* (Theragran*) 1 Tab Tab, 1 TAB PO DAILY, TAB 12/01/18 Lisinopril* (Lisinopril*) 5 Mg Tablet, 5 MG PO DAILY, #30 TAB HOLD FOR SBP<110 12/01/18 Levothyroxine Sodium* (Levoxyl*) 100 Mcg Tablet, 100 MCG PO BEFORE BREAKFAST, #30 TAB 12/01/18 [place]-3/Dha/Epa/Fish Oil (FISH OIL 1,000 MG SOFTGEL) 1 Each Capsule, 1 EACH PO DAILY, CAP 12/01/18 Docusate Sodium* (Colace*) 100 Mg Capsule, 100 MG PO BID, #60 CAP 12/01/18 Calcium Carbonate/Vitamin D3 (OYSTER SHELL 500 MG + VIT D TB) 1 Each Tablet, 1 EACH PO BID, TAB 12/01/18 Bupropion Hcl* (Bupropion XL*) 300 Mg Tab.sr.24h, 300 MG PO DAILY, TAB.SA 12/01/18 Na Phos,M-B/Na Phos,Di-Ba (ENEMA TGUMQ-ND-DOG) 133 Ml Enema, 133 ML RC EVERY 3RD DAY PRN for CONSTIPATION, ENEMA 12/01/18 Bisacodyl (Dulcolax) 10 Mg Supp.rect, 10 MG RC PRN PRN for CONSTIPATION, SUPP.RECT 12/01/18 Magnesium Hydroxide* (Milk Of Magnesia*) 400 Mg/5 Ml Oral.susp, 30 ML PO DAILY PRN for CONSTIPATION, ML 12/01/18 Vitamin B Complex* (Vitamin B Complex*) 1 Each Tablet, 1 TAB PO DAILY, TAB 12/01/18 Acetaminophen* (Acetaminophen*) 650 Mg Tablet, 650 MG PO Q4 PRN for MODERATE PAIN LEVEL 4-6, #30 TAB 12/01/18 Discontinued Reported Medications Levothyroxine Sodium* (Levoxyl*) 100 Mcg Tablet, 100 MCG PO BEFORE BREAKFAST, #30 TAB 04/24/16 Tiotropium [place]* (Spiriva*) 18 Mcg Cap.w.dev, 1 CAP INHALATION DAILY, #30 CAP 12/05/15 Bupropion Hcl* (Bupropion XL*) 300 Mg Tab.sr.24h, 300 MG ORAL DAILY, #90 12/05/15 Gabapentin* (Gabapentin*) 300 Mg Capsule, 600 MG PO TID, #180 CAP 12/05/15 Nabumetone* (Nabumetone*) 500 Mg Tablet, 500 MG ORAL BID, #180 12/05/15 Lisinopril* (Lisinopril*) 5 Mg Tablet, 5 MG PO DAILY, #30 TAB 09/19/15 Discontinued Scripts Simvastatin* (Simvastatin*) 5 Mg Tablet, 5 MG PO QHS, #30 TAB Prov:LILLY JOSE MD 12/06/15 Medications Current Medications Acetaminophen (Tylenol Tab) 650 mg Q4 PRN PO MODERATE PAIN LEVEL 4-6 Last administered on 12/02/18at 04:53; Admin Dose 650 MG; Start 12/01/18 at 21:00 Albuterol (Ventolin Hfa) 2 puff Q4H PRN INH WHEEZING AND SOB; Start 12/01/18 at 21:00 Ascorbic Acid (Vitamin C) 500 mg BID PO Last administered on 12/05/18at 08:18; Admin Dose 500 MG; Start 12/01/18 at 21:00 Bupropion HCl (Wellbutrin Xl) 300 mg DAILY PO Last administered on 12/05/18at 08:18; Admin Dose 300 MG; Start 12/02/18 at 09:00 Cholecalciferol (Vitamin D) 1,000 unit DAILY PO Last administered on 12/05/18 08:18; Admin Dose 1,000 UNIT; Start 12/02/18 at 09:00 Diclofenac Sodium (Voltaren 1% Gel) 2 gm TID PRN TP PAIN; Start 12/01/18 at 21:00 Docusate Sodium (Colace) 100 mg BID PO Last administered on 12/05/18at 08:18; Admin Dose 100 MG; Start 12/01/18 at 21:00 Levothyroxine Sodium (Synthroid) 100 mcg BEFORE BREAKFAST PO Last administered on 12/05/18 06:07; Admin Dose 100 MCG; Start 12/02/18 at 07:00 Lisinopril (Zestril) 5 mg DAILY PO Last administered on 12/05/18 08:19; Admin Dose 5 MG; Start 12/02/18 at 09:00 Magnesium Hydroxide (Milk Of Mag) 30 ml DAILY PRN PO CONSTIPATION; Start 12/01/18 at 21:00 Multivitamins Therapeutic (Theragran) 1 tab DAILY PO Last administered on 12/05/18 08:18; Admin Dose 1 TAB; Start 12/02/18 at 09:00 Sodium Biphosphate/ Sodium Phosphate (Fleet Enema) 133 ml DAILY PRN MO CONSTIPATION; Start 12/01/18 at 21:00 Polyethylene Glycol (Miralax) 17 gm DAILY PO Last administered on 12/05/18 08:18; Admin Dose 17 GM; Start 12/02/18 at 09:00 Senna (Senokot) 1 tab BID PO Last administered on 12/05/18 08:18; Admin Dose 1 TAB; Start 12/01/18 at 21:00 Vitamin B Complex/ Vitamin C (Berocca) 1 cap DAILY PO Last administered on 12/05/18 08:18; Admin Dose 1 CAP; Start 12/02/18 at 09:00 Arformoterol Tartrate (Brovana (Neb)) 2 ml BID RESP THERAPY INH Last administered on 12/04/18 20:38; Admin Dose 2 ML; Start 12/01/18 at 22:30 Fish Oil (Fish Oil) 1,000 mg DAILY PO Last administered on 12/05/18 08:18; Admin Dose 1,000 MG; Start 12/02/18 at 09:00 Ceftriaxone Sodium 50 ml @ 100 mls/hr Q24H IVPB Last administered on 12/04/18 17:50; Admin Dose 100 MLS/HR; Start 12/02/18 at 18:00 IV Flush (NS 3 ml) 3 ml PER PROTOCOL IV ; Start 12/01/18 at 22:00 Ondansetron HCl (Zofran Inj) 4 mg Q6H PRN IV NAUSEA/VOMITING; Start 12/01/18 at 22:00 Acetaminophen (Tylenol Tab) 650 mg Q6H PRN PO .PAIN 1-3 OR TEMP; Start 12/01/18 at 22:00 Docusate Sodium (Colace) 100 mg Q12H PRN PO .CONSTIPATION; Start 12/01/18 at 22:00 Bisacodyl (Dulcolax) 5 mg DAILY PRN PO .CONSTIPATION; Start 12/01/18 at 22:00 Budesonide (Pulmicort (Neb)) 0.5 mg Q12H RESP THERAPY INH Last administered on 12/04/18at 20:29; Admin Dose 0.5 MG; Start 12/01/18 at 23:00 Miscellaneous Information (Pending Santyl Order For Wound Care) This patient ruano... PRN PRN XX WOUND CARE; Start 12/02/18 at 00:00 Acetaminophen/ Hydrocodone Bitart ([place] (5/325)) 1 tab Q6H PRN PO MODERATE PAIN LEVEL 4-6 Last administered on 12/05/18at 06:07; Admin Dose 1 TAB; Start 12/02/18 at 05:30 Collagenase (Santyl) 1 applic BID TOP Last administered on 12/05/18at 08:18; Admin Dose 1 APPLIC; Start 12/02/18 at 11:30 Ferric Sodium Gluconate Complex 125 mg/Sodium Chloride 110 ml @ 110 mls/hr DAILY@1300 IVPB Last administered on 12/05/18at 12:31; Admin Dose 110 MLS/HR; Start 12/04/18 at 13:00; Stop 12/08/18 at 13:59 Lidocaine (Xylocaine 1% (Mpf)) 30 ml ONCE PRN INJ aspiration ; Start 12/04/18 at 17:30 Allergies: Coded Allergies: Anesthetics - Amide Type (Verified Allergy, Unknown, 12/01/18) Cholinesterase Inhibitor(Carbamate) (Verified Allergy, Unknown, 12/01/18) succinylcholine (Verified Allergy, Unknown, 12/01/18) Uncoded Allergies: HALOGENATED (Allergy, Unknown, 12/01/18) Family History Significant Family History: no pertinent family hx Social History Alcohol Use: none Smoking Status: Former smoker Drug Use: none Exam/Review of Systems Vital Signs Vitals Vital Signs Date Temp Pulse Resp B/P (MAP) Pulse Ox O2 O2 Flow FiO2 Time Delivery Rate 12/05/18 98.3 72 18 124/63 93 Room Air 14:22 (83) 12/04/18 21 20:31 Intake and Output 12/04/18 12/04/18 12/05/18 1414:59 22:59 06:59 IntakeIntake Total 350 ml 530 ml BalanceBalance 350 ml 530 ml Exam Constitutional: alert, oriented (No apparent distress) Head: normocephalic Respiratory: other (Coarse breath sounds bilaterally, no wheezing) Cardiovascular: regular rate and rhythm (S1-S2 heard) Gastrointestinal: soft, non-tender, bowel sounds Extremities: edema (Trace) Labs Result Diagram: 12/05/18 0803 12/05/18 0803 Results 24hrs Laboratory Tests Test 12/04/18 17:45 12/04/18 21:07 12/05/18 08:03 Synovial Fluid Source RIGHT KNEE Synovial Fluid Color YELLOW Synovial Fluid Appearance CLOUDY Synovial Fluid Volume 20.0 H Synovial Fluid WBC 95081 H Synovial Fluid Polynuclear WBCs 96.5 H % Synovial Fluid Mononuclear WBCs 3.5 % Synovial Fluid Crystals NO CRYSTALS SEEN Prothrombin Time 13.2 Prothrombin Time Ratio 1.0 INR International 0.99 Normalized Ratio White Blood Count 6.2 Red Blood Count 3.93 L Hemoglobin 10.3 L Hematocrit 33.4 L Mean Corpuscular Volume 85.0 Mean Corpuscular Hemoglobin 26.2 L Mean Corpuscular 30.8 L Hemoglobin Concent Red Cell Distribution Width 15.2 H Platelet Count 337 Mean Platelet Volume 9.8 Immature Granulocytes % 0.500 H Neutrophils % 68.5 Lymphocytes % 16.4 Monocytes % 13.5 H Eosinophils % 0.6 Basophils % 0.5 Nucleated Red Blood Cells % 0.0 Immature Granulocytes # 0.030 Neutrophils # 4.3 Lymphocytes # 1.0 Monocytes # 0.8 Eosinophils # 0.0 Basophils # 0.0 Nucleated Red Blood Cells # 0.0 Sodium Level 142 Potassium Level 3.8 Chloride Level 106 Carbon Dioxide Level 27 Anion Gap 9 Blood Urea Nitrogen 10 Creatinine 0.47 Est Glomerular Filtrat Rate mL/min Glucose Level 118 Calcium Level 8.8 Imaging Imaging ECG demonstrates sinus rhythm, normal QRS duration, nonspecific T wave abnormalities Medications Medications Current Medications Acetaminophen (Tylenol Tab) 650 mg Q4 PRN PO MODERATE PAIN LEVEL 4-6 Last administered on 12/02/18at 04:53; Admin Dose 650 MG; Start 12/01/18 at 21:00 Albuterol (Ventolin Hfa) 2 puff Q4H PRN INH WHEEZING AND SOB; Start 12/01/18 at 21:00 Ascorbic Acid (Vitamin C) 500 mg BID PO Last administered on 12/05/18 08:18; Admin Dose 500 MG; Start 12/01/18 at 21:00 Bupropion HCl (Wellbutrin Xl) 300 mg DAILY PO Last administered on 12/05/18 08:18; Admin Dose 300 MG; Start 12/02/18 at 09:00 Cholecalciferol (Vitamin D) 1,000 unit DAILY PO Last administered on 12/05/18 08:18; Admin Dose 1,000 UNIT; Start 12/02/18 at 09:00 Diclofenac Sodium (Voltaren 1% Gel) 2 gm TID PRN TP PAIN; Start 12/01/18 at 21:00 Docusate Sodium (Colace) 100 mg BID PO Last administered on 12/05/18 08:18; Admin Dose 100 MG; Start 12/01/18 at 21:00 Levothyroxine Sodium (Synthroid) 100 mcg BEFORE BREAKFAST PO Last administered on 12/05/18 06:07; Admin Dose 100 MCG; Start 12/02/18 at 07:00 Lisinopril (Zestril) 5 mg DAILY PO Last administered on 12/05/18 08:19; Admin Dose 5 MG; Start 12/02/18 at 09:00 Magnesium Hydroxide (Milk Of Mag) 30 ml DAILY PRN PO CONSTIPATION; Start 12/01/18 at 21:00 Multivitamins Therapeutic (Theragran) 1 tab DAILY PO Last administered on 12/05/18 08:18; Admin Dose 1 TAB; Start 12/02/18 at 09:00 Sodium Biphosphate/ Sodium Phosphate (Fleet Enema) 133 ml DAILY PRN [place] CONSTIPATION; Start 12/01/18 at 21:00 Polyethylene Glycol (Miralax) 17 gm DAILY PO Last administered on 12/05/18 08:18; Admin Dose 17 GM; Start 12/02/18 at 09:00 Senna (Senokot) 1 tab BID PO Last administered on 12/05/18 08:18; Admin Dose 1 TAB; Start 12/01/18 at 21:00 Vitamin B Complex/ Vitamin C (Berocca) 1 cap DAILY PO Last administered on 12/05/18 08:18; Admin Dose 1 CAP; Start 12/02/18 at 09:00 Arformoterol Tartrate (Brovana (Neb)) 2 ml BID RESP THERAPY INH Last administered on 12/04/18at 20:38; Admin Dose 2 ML; Start 12/01/18 at 22:30 Fish Oil (Fish Oil) 1,000 mg DAILY PO Last administered on 12/05/18 08:18; Admin Dose 1,000 MG; Start 12/02/18 at 09:00 Ceftriaxone Sodium 50 ml @ 100 mls/hr Q24H IVPB Last administered on 12/04/18 17:50; Admin Dose 100 MLS/HR; Start 12/02/18 at 18:00 IV Flush (NS 3 ml) 3 ml PER PROTOCOL IV ; Start 12/01/18 at 22:00 Ondansetron HCl (Zofran Inj) 4 mg Q6H PRN IV NAUSEA/VOMITING; Start 12/01/18 at 22:00 Acetaminophen (Tylenol Tab) 650 mg Q6H PRN PO .PAIN 1-3 OR TEMP; Start 12/01/18 at 22:00 Docusate Sodium (Colace) 100 mg Q12H PRN PO .CONSTIPATION; Start 12/01/18 at 22:00 Bisacodyl (Dulcolax) 5 mg DAILY PRN PO .CONSTIPATION; Start 12/01/18 at 22:00 Budesonide (Pulmicort (Neb)) 0.5 mg Q12H RESP THERAPY INH Last administered on 12/04/18 20:29; Admin Dose 0.5 MG; Start 12/01/18 at 23:00 Miscellaneous Information (Pending Santyl Order For Wound Care) This patient ruano... PRN PRN XX WOUND CARE; Start 12/02/18 at 00:00 Acetaminophen/ Hydrocodone Bitart ([place] (5/325)) 1 tab Q6H PRN PO MODERATE PAIN LEVEL 4-6 Last administered on 12/05/18 06:07; Admin Dose 1 TAB; Start 12/02/18 at 05:30 Collagenase (Santyl) 1 applic BID TOP Last administered on 12/05/18 08:18; Admin Dose 1 APPLIC; Start 12/02/18 at 11:30 Ferric Sodium Gluconate Complex 125 mg/Sodium Chloride 110 ml @ 110 mls/hr DAILY@1300 IVPB Last administered on 12/05/18at 12:31; Admin Dose 110 MLS/HR; Start 12/04/18 at 13:00; Stop 12/08/18 at 13:59 Lidocaine (Xylocaine 1% (Mpf)) 30 ml ONCE PRN INJ aspiration ; Start 12/04/18 at 17:30 Martin Kelley DO Dec 05, 2018 16:25
--- NOTE | 2018-12-05 17:15 | PN ---
Date/Time of Note Date/Time of Note DATE: 12/05/18 TIME: 14:41 Assessment/Plan VTE Prophylaxis Risk score (from Ns)>0 risk: 5 SCD applied (from Ns): Yes Pharmacological prophylaxis: other Lines/Catheters IV Catheter Type (from Nrsg): Saline Lock Urinary Cath still in place: No Assessment/Plan Hospital Course S: no new complaints, NPO for surgery later today O: Constitutional: alert, oriented Head: atraumatic, normocephalic Neck: non-tender, supple Respiratory: clear to auscultation Cardiovascular: regular rate and rhythm Gastrointestinal: S/ NT / ND / +BS Extremities: healing sacral ulcer assessment and plan: 73-year-old female brought in by ambulance from home after a ground-level fall #1 mechanical fall: likely 2/ #2 #2 Septic joint R Knee: -s/p prev RTKA -s/p aspiration with aspirate highly suggestive of infection -planned for intraoperative cleanout and possible hardware removal today -cultures from aspiration negative so far -will also need intraoperative culures as well #3 chronic spinal disease: - Patient does have a history of significant stenosis of her spine. Lumbar spine and thoracic spine do so signs of stenosis though no acute fractures. - Continue pain management. #4 osteoarthritis: Continue to monitor, pain management #5 urinary tract infection: -Ecoli and lactobacillus -abx per ID #6 Strep Bacteremia : -?source, from septic knee -repeat cultures negative so far #7 sacral ulcer r/o osteo Result Diagram: 12/05/18 0803 12/05/18 0803 Results 24hrs Laboratory Tests Test 12/04/18 17:45 12/04/18 21:07 12/05/18 08:03 Synovial Fluid Source RIGHT KNEE Synovial Fluid Color YELLOW Synovial Fluid Appearance CLOUDY Synovial Fluid Volume 20.0 H Synovial Fluid WBC 13995 H Synovial Fluid Polynuclear WBCs 96.5 H % Synovial Fluid Mononuclear WBCs 3.5 % Synovial Fluid Crystals NO CRYSTALS SEEN Prothrombin Time 13.2 Prothrombin Time Ratio 1.0 INR International 0.99 Normalized Ratio White Blood Count 6.2 Red Blood Count 3.93 L Hemoglobin 10.3 L Hematocrit 33.4 L Mean Corpuscular Volume 85.0 Mean Corpuscular Hemoglobin 26.2 L Mean Corpuscular 30.8 L Hemoglobin Concent Red Cell Distribution Width 15.2 H Platelet Count 337 Mean Platelet Volume 9.8 Immature Granulocytes % 0.500 H Neutrophils % 68.5 Lymphocytes % 16.4 Monocytes % 13.5 H Eosinophils % 0.6 Basophils % 0.5 Nucleated Red Blood Cells % 0.0 Immature Granulocytes # 0.030 Neutrophils # 4.3 Lymphocytes # 1.0 Monocytes # 0.8 Eosinophils # 0.0 Basophils # 0.0 Nucleated Red Blood Cells # 0.0 Sodium Level 142 Potassium Level 3.8 Chloride Level 106 Carbon Dioxide Level 27 Anion Gap 9 Blood Urea Nitrogen 10 Creatinine 0.47 Est Glomerular Filtrat Rate mL/min Glucose Level 118 Calcium Level 8.8 Exam/Review of Systems Exam Vitals Vital Signs Date Temp Pulse Resp B/P (MAP) Pulse Ox O2 O2 Flow FiO2 Time Delivery Rate 12/05/18 98.3 72 18 124/63 93 Room Air 14:22 (83) 12/04/18 21 20:31 Intake and Output 12/04/18 12/04/18 12/05/18 1515:00 23:00 07:00 IntakeIntake Total 350 ml 530 ml BalanceBalance 350 ml 530 ml Results Results 24hrs Laboratory Tests Test 12/04/18 17:45 12/04/18 21:07 12/05/18 08:03 Synovial Fluid Source RIGHT KNEE Synovial Fluid Color YELLOW Synovial Fluid Appearance CLOUDY Synovial Fluid Volume 20.0 H Synovial Fluid WBC 33319 H Synovial Fluid Polynuclear WBCs 96.5 H % Synovial Fluid Mononuclear WBCs 3.5 % Synovial Fluid Crystals NO CRYSTALS SEEN Prothrombin Time 13.2 Prothrombin Time Ratio 1.0 INR International 0.99 Normalized Ratio White Blood Count 6.2 Red Blood Count 3.93 L Hemoglobin 10.3 L Hematocrit 33.4 L Mean Corpuscular Volume 85.0 Mean Corpuscular Hemoglobin 26.2 L Mean Corpuscular 30.8 L Hemoglobin Concent Red Cell Distribution Width 15.2 H Platelet Count 337 Mean Platelet Volume 9.8 Immature Granulocytes % 0.500 H Neutrophils % 68.5 Lymphocytes % 16.4 Monocytes % 13.5 H Eosinophils % 0.6 Basophils % 0.5 Nucleated Red Blood Cells % 0.0 Immature Granulocytes # 0.030 Neutrophils # 4.3 Lymphocytes # 1.0 Monocytes # 0.8 Eosinophils # 0.0 Basophils # 0.0 Nucleated Red Blood Cells # 0.0 Sodium Level 142 Potassium Level 3.8 Chloride Level 106 Carbon Dioxide Level 27 Anion Gap 9 Blood Urea Nitrogen 10 Creatinine 0.47 Est Glomerular Filtrat Rate mL/min Glucose Level 118 Calcium Level 8.8 Medications Medication Current Medications Acetaminophen (Tylenol Tab) 650 mg Q4 PRN PO MODERATE PAIN LEVEL 4-6 Last administered on 12/02/18 04:53; Admin Dose 650 MG; Start 12/01/18 at 21:00 Albuterol (Ventolin Hfa) 2 puff Q4H PRN INH WHEEZING AND SOB; Start 12/01/18 at 21:00 Ascorbic Acid (Vitamin C) 500 mg BID PO Last administered on 12/05/18 08:18; Admin Dose 500 MG; Start 12/01/18 at 21:00 Bupropion HCl (Wellbutrin Xl) 300 mg DAILY PO Last administered on 12/05/18 08:18; Admin Dose 300 MG; Start 12/02/18 at 09:00 Cholecalciferol (Vitamin D) 1,000 unit DAILY PO Last administered on 12/05/18 08:18; Admin Dose 1,000 UNIT; Start 12/02/18 at 09:00 Diclofenac Sodium (Voltaren 1% Gel) 2 gm TID PRN TP PAIN; Start 12/01/18 at 21:00 Docusate Sodium (Colace) 100 mg BID PO Last administered on 12/05/18 08:18; Admin Dose 100 MG; Start 12/01/18 at 21:00 Levothyroxine Sodium (Synthroid) 100 mcg BEFORE BREAKFAST PO Last administered on 12/05/18 06:07; Admin Dose 100 MCG; Start 12/02/18 at 07:00 Lisinopril (Zestril) 5 mg DAILY PO Last administered on 12/05/18 08:19; Admin Dose 5 MG; Start 12/02/18 at 09:00 Magnesium Hydroxide (Milk Of Mag) 30 ml DAILY PRN PO CONSTIPATION; Start 12/01/18 at 21:00 Multivitamins Therapeutic (Theragran) 1 tab DAILY PO Last administered on 12/05/18 08:18; Admin Dose 1 TAB; Start 12/02/18 at 09:00 Sodium Biphosphate/ Sodium Phosphate (Fleet Enema) 133 ml DAILY PRN [place] CONSTIPATION; Start 12/01/18 at 21:00 Polyethylene Glycol (Miralax) 17 gm DAILY PO Last administered on 12/05/18 08:18; Admin Dose 17 GM; Start 12/02/18 at 09:00 Senna (Senokot) 1 tab BID PO Last administered on 12/05/18 08:18; Admin Dose 1 TAB; Start 12/01/18 at 21:00 Vitamin B Complex/ Vitamin C (Berocca) 1 cap DAILY PO Last administered on 12/05/18 08:18; Admin Dose 1 CAP; Start 12/02/18 at 09:00 Arformoterol Tartrate (Brovana (Neb)) 2 ml BID RESP THERAPY INH Last administered on 12/04/18 20:38; Admin Dose 2 ML; Start 12/01/18 at 22:30 Fish Oil (Fish Oil) 1,000 mg DAILY PO Last administered on 12/05/18 08:18; Admin Dose 1,000 MG; Start 12/02/18 at 09:00 Ceftriaxone Sodium 50 ml @ 100 mls/hr Q24H IVPB Last administered on 12/04/18 17:50; Admin Dose 100 MLS/HR; Start 12/02/18 at 18:00 IV Flush (NS 3 ml) 3 ml PER PROTOCOL IV ; Start 12/01/18 at 22:00 Ondansetron HCl (Zofran Inj) 4 mg Q6H PRN IV NAUSEA/VOMITING; Start 12/01/18 at 22:00 Acetaminophen (Tylenol Tab) 650 mg Q6H PRN PO .PAIN 1-3 OR TEMP; Start 12/01/18 at 22:00 Docusate Sodium (Colace) 100 mg Q12H PRN PO .CONSTIPATION; Start 12/01/18 at 22:00 Bisacodyl (Dulcolax) 5 mg DAILY PRN PO .CONSTIPATION; Start 12/01/18 at 22:00 Budesonide (Pulmicort (Neb)) 0.5 mg Q12H RESP THERAPY INH Last administered on 12/04/18 20:29; Admin Dose 0.5 MG; Start 12/01/18 at 23:00 Miscellaneous Information (Pending Santyl Order For Wound Care) This patient ruano... PRN PRN XX WOUND CARE; Start 12/02/18 at 00:00 Acetaminophen/ Hydrocodone Bitart ([place] (5/325)) 1 tab Q6H PRN PO MODERATE PAIN LEVEL 4-6 Last administered on 12/05/18 06:07; Admin Dose 1 TAB; Start 12/02/18 at 05:30 Collagenase (Santyl) 1 applic BID TOP Last administered on 12/05/18at 08:18; Admin Dose 1 APPLIC; Start 12/02/18 at 11:30 Ferric Sodium Gluconate Complex 125 mg/Sodium Chloride 110 ml @ 110 mls/hr DAILY@1300 IVPB Last administered on 12/05/18at 12:31; Admin Dose 110 MLS/HR; Start 12/04/18 at 13:00; Stop 12/08/18 at 13:59 Lidocaine (Xylocaine 1% (Mpf)) 30 ml ONCE PRN INJ aspiration ; Start 12/04/18 at 17:30 RNADY ROMERO Dec 05, 2018 17:15
--- NOTE | 2018-12-05 17:31 | PN ---
Date/Time of Note Date/Time of Note DATE: 12/05/18 TIME: 17:29 Assessment/Plan Lines/Catheters IV Catheter Type (from Nrsg): Saline Lock Schaeffer in Place (from Nrsg): No Assessment/Plan Chief Complaint/Hosp Course 73-year-old female with acute hematogenous infection of the right TKA. Plan: OR today for irrigation debridement and poly-exchange NPO Pain control Subjective 24 Hr Interval Summary Patient doing well No acute events overnight Pain is well controlled Exam/Review of Systems Vital Signs Vitals Vital Signs Date Temp Pulse Resp B/P (MAP) Pulse Ox O2 O2 Flow FiO2 Time Delivery Rate 12/05/18 98.3 72 18 124/63 93 Room Air 14:22 (83) 12/04/18 21 20:31 Intake and Output 12/04/18 12/04/18 12/05/18 1515:00 23:00 07:00 IntakeIntake Total 350 ml 530 ml BalanceBalance 350 ml 530 ml Exam Free Text/Dictation MUSCULOSKELETAL: Right lower extremity: Skin is intact. There is a well-healed midline incision extending from the distal thigh to the tibial tubercle. There is a well-healed incision over the lateral aspect of the knee. There is subtle erythema around the knee. The knee is warm. There is a +3 effusion. The knee is nontender to palpation. The knee has near full range of motion 3 degrees of extension to at least 120 degrees of flexion. There is very subtle and likely insignificant mid flexion instability otherwise the knee is very stable. Sensation intact to light touch in a sural, saphenous, deep peroneal, superficial peroneal, medial and lateral plantar nerve distribution. Motor is intact, patient able to dorsiflex and plantarflex ankle and extend and flex great toe. Dorsalis Pedis pulse +2, Brisk capillary refill. Compartments are soft. Calves non-tender to palpation bilaterally. Results Result Diagram: 12/05/18 0803 12/05/18 0803 EMIGDIO LUBIN MD Dec 05, 2018 17:31
[2018-12-05] MEDS ORDERED: TOBRAMYCIN 1.2 GM POWDER ONE (17:37)
[2018-12-05] MEDS ORDERED: VANCOMYCIN 1 GM INJ ONE (17:37)
[2018-12-05] MEDS ORDERED: MIDAZOLAM 1 MG/ML 2 ML INJ ONE (17:40)
[2018-12-05] MEDS: CEFTRIAXONE 1 GM/50 ML (PMX) 50 ML IVPB SCH (17:58)
[2018-12-05] MEDS ORDERED: LIDOCAINE 2% (SDV) 5 ML INJ ONE (20:55)
[2018-12-05] MEDS ORDERED: ETOMIDATE 20 MG INJ ONE (20:55)
[2018-12-05] MEDS ORDERED: CEFAZOLIN 1 GM INJ ONE (20:56)
[2018-12-05] MEDS ORDERED: METOCLOPRAMIDE 10 MG INJ ONE (20:56)
[2018-12-05] MEDS ORDERED: ONDANSETRON 4 MG INJ ONE (20:56)
[2018-12-05] MEDS ORDERED: ROPIVACAINE 0.5 % 30 ML VIAL ONE (20:58)
[2018-12-05] MEDS ORDERED: LACTATED RINGER'S 1,000 ML IV SCH (21:19)
--- NOTE | 2018-12-05 21:27 | PAC ---
Date/Time of Note Date/Time of Note DATE: 12/05/18 TIME: 21:27 Post-Anesthesia Notes Post-Anesthesia Note Last documented vital signs Vital Signs Date Temp Pulse Resp B/P (MAP) Pulse Ox O2 O2 Flow FiO2 Time Delivery Rate 12/05/18 98.9 21:18 12/05/18 72 18 124/63 93 Room Air 14:22 (83) 12/04/18 21 20:31 Activity: WNL Respiratory function: WNL Cardiovascular function: WNL Mental status: Baseline Pain reasonably controlled: Yes Hydration appropriate: Yes Nausea/Vomiting absent: Yes Comments BP:118/56, P:88, Spo2:100%, T:98,8 STACY CLARK MD Dec 05, 2018 21:27
[2018-12-05] MEDS ORDERED: BISACODYL 10 MG SUPP PR PRN (21:30)
[2018-12-05] MEDS ORDERED: FENTAnyl 50 MCG/ML VIAL IV PRN (21:30)
[2018-12-05] MEDS ORDERED: SENNA/DOCUSATE NA (8.6MG/50MG) TAB PO PRN (21:30)
[2018-12-05] MEDS ORDERED: DIPHENHYDRAMINE 50 MG INJ IV PRN ×2 (21:30)
[2018-12-05] MEDS ORDERED: BETHANECHOL 25 MG TAB PO PRN (21:30)
[2018-12-05] MEDS ORDERED: MEPERIDINE 25 MG INJ IV PRN (21:30)
[2018-12-05] MEDS ORDERED: HYDROmorphONE 1 MG/ML SYG IV PRN (21:30)
[2018-12-05] MEDS ORDERED: MAGNESIUM HYDROXIDE 30ML CUP PO PRN (21:30)
[2018-12-05] MEDS ORDERED: NA PHOSPHATE/BIPHOS 133 ML ENEMA PR PRN (21:30)
[2018-12-05] MEDS ORDERED: NALOXONE (0.4 MG/ML) INJ IV PRN ×2 (21:30)
[2018-12-05] MEDS ORDERED: NACL 0.9% 3 ML SYG IV SCH (21:30)
[2018-12-05] MEDS ORDERED: DOCUSATE SODIUM 100 MG CAP PO ONE (21:30)
[2018-12-05] MEDS ORDERED: HYDROmorphONE 1 MG/5 ML IV SYRINGE IV PRN (21:30)
[2018-12-05] MEDS ORDERED: ONDANSETRON 4 MG INJ IV PRN (21:30)
--- NOTE | 2018-12-05 21:42 | OPR ---
Date/Time of Note Date/Time of Note DATE: 12/05/18 TIME: 21:26 Operative Report Procedure Date: Dec 05, 2018 Preoperative Diagnosis Acute hematogenous septic right total knee arthroplasty Postoperative Diagnosis As above Operation/Procedure Performed Irrigation debridement of right total knee arthroplasty 16 x 8 cm -debridement of skin, subcutaneous tissue, fascia, muscle, bone. Wound component exchange of right total knee arthroplasty - polyethylene exchange Surgeon see signature line Continuity Director None Anesthesia Type: general Tourniquet Time: 100 Estimated Blood Loss: 10 - 50 ml's Transfusion none Specimen 4 specimens Synovial fluid sent for cell count, aerobic, anaerobic, fungal cultures 3 soft tissue cultures sent and specimen cups 1 from the synovium, tibial baseplate, and femur. All sent for aerobic, anaerobic and fungal cultures All cultures to be held 2 weeks Grafts/Implants none Tubes/Drains Hemovac exiting the anterolateral thigh Complications none Pt Condition Post Procedure: stable Disposition: PACU Procedure Description Bobbi Baeza is a 73-year-old female who was admitted to the hospital after multiple falls. She was found to have a urinary tract infection as well as bacteremia. On hospital day #3 I was consulted because of her right knee pain and swelling. Patient has a right total knee arthroplasty done many years ago. This was her third surgery on this knee. She had a previous open meniscectomy, right unicompartmental knee arthroplasty, and conversion to total knee arthroplasty. 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 She has never had an infection before. Prior to 3 days ago she states her right total knee was her good knee and leg. She relied on this need to walk primarily. Denies any previous pain or swelling in this knee. Aspiration was done at bedside which yielded > 25,000 WBCs primarily PMNs. Therefore I recommended an irrigation debridement and polyethylene exchange. I discussed the benefits and risks with the patient including but not limited to complications of anesthesia, bleeding, failure to cure infection, injury to blood vessels or nerves, instability, fracture, extensor mechanism rupture, DVT. I have emphasized that she may only have a 50% chance of eradicating infection but the alternative is to do a formal two-stage which has significant increased morbidity. She understood these benefits and risks and wished to proceed with I&D and poly- exchange. The patient was brought to the operating room. She is transfer the hospital bed to the operating table in supine position all bony prominences were well padded. The patient was then intubated. A Schaeffer was then placed. The right lower ex tremity was prepped and draped in normal sterile fashion. A timeout was performed confirming patient's name medical record number, diagnosis, procedure to be performed, laterality procedure. 2 g of Ancef was dosed. The previous marked incision was marked out. The skin was ellipsed making an approximate 16 cm incision. The skin was very thin and there was minimal subcutaneous tissue. The planes were difficult to identify and dissect but once medial and lateral full-thickness skin flaps were made the previous medial parapatellar arthrotomy was visualized given that nonabsorbable sutures were used. Prior to make an arthrotomy an 18-gauge needle was used to aspirate fluid this was sent for cell count and cultures. The previous medial parapatellar arthrotomy was utilized. The nonabsorbable sutures were removed with rongeur and sharp excision. Significant amount of fluid was draining from the knee. The fluid appeared purulent. The patella was significantly scarred down. This was released carefully. The tissues within the knee were not grossly necrotic or significantly inflamed. There was significant thickening of the medial and lateral gutters and thickening of the synovium. The medial lateral gutters were sharply debrided this included muscle, fascia, synovium. Synovium was sent for culture. Once the gutters were cleaned and the patella was able to be subluxated laterally tibial polyethylene insert was removed without difficulty. Tissue cultures from the tibial tray were obtained and sent as well. The tibial insert was Depuy Sigma CR size 2.5 10mm thickness. At this time we proceeded aggressive debridement of all suspicious tissues including the posterior capsule. The debridement was completed with sharp excision, versa jet, rongeur, curettes, lap sponges. Sterile diluted Betadine was used as well to scrub down the retained prosthesis. Irrigated with a total of 6 L of normal saline with cystoscopy tubing. Once the debridement was deemed adequate the knee was trialed with the same size polyethylene trial. The knee had full range of motion and was stable throughout range of motion. Therefore a formal Sigma CR size 2.5, 10 mm thick polyethylene tibial insert was locked in place. Again the knee had full range of motion and was stable. The wound was then again soaked in diluted sterile Betadine for 3 minutes. This was irrigated out. 10 cc of stimulant beads were placed. These contain 1 g of vancomycin and 1.2 g of tobramycin. A medium Hemovac was placed exiting anterolaterally. The arthrotomy was closed with #1 PDS suture in figure 8 interrupted fashion. Subcutaneous tissue was closed with 2-0 PDS suture in interrupted fashion. Skin was closed with pily. The wound was covered with Aquacel. Drain sponge and Tegaderm was used to secure the drain. All counts were correct x2 Disposition: Patient received a nerve block by anesthesia was extubated and transferred to PACU in stable condition. The patient will continue to receive IV antibiotics which will be tailored towards culture results. She will need a PICC line as she will need IV antibiotics for 6 weeks. This will likely be followed with 3 months of oral antibiotics. Infectious disease is already consulted. Patient will be on aspirin for DVT prophylaxis. Should be weightbearing as tolerated. She will need extensive physical therapy for her knee as well as other muscular skeletal issues and general deconditioning. EMIGDIO LUBIN MD Dec 05, 2018 21:42
[2018-12-05] MEDS: CEFAZOLIN 2 GM/50 ML (PMX) 50 ML IVPB SCH (21:56)
[2018-12-05] MEDS: HYDROmorphONE 1 MG/5 ML IV SYRINGE IV PRN ×3 (22:00→22:57)
[2018-12-06 01:55] VITALS: BP 137/60; PULSE 83; RESP 18
[2018-12-06] MEDS: CEFAZOLIN 2 GM/50 ML (PMX) 50 ML IVPB SCH ×2 (06:04→15:54)
[2018-12-06] MEDS: LEVOTHYROXINE 100 MCG TAB PO SCH (07:06)
[2018-12-06 07:55] VITALS: BP 111/58; PULSE 86; RESP 16
[2018-12-06] MEDS: BUDESONIDE (NEB) 0.5MG/2ML AMP INH SCH ×2 (08:00→20:00)
[2018-12-06] MEDS: VITAMIN B COMPLEX/VIT C CAP PO SCH (08:52)
[2018-12-06] MEDS: FISH OIL 1,000 MG CAP PO SCH (08:52)
[2018-12-06] MEDS: DOCUSATE SODIUM 100 MG CAP PO SCH ×2 (08:52→21:24)
[2018-12-06] MEDS: ASPIRIN (EC) 81 MG TAB PO SCH ×2 (08:52→21:24)
[2018-12-06] MEDS: COLLAGENASE 5 GM (UD JAR) TOP SCH ×2 (08:52→21:25)
[2018-12-06] MEDS: ASCORBIC ACID 500 MG TAB PO SCH ×2 (08:52→21:24)
[2018-12-06] MEDS: CHOLECALCIFEROL 1,000 UNIT TAB PO SCH (08:52)
[2018-12-06] MEDS: BUPROPION (XL) 150 MG TAB PO SCH (08:53)
[2018-12-06] MEDS: MULTIVITAMINS THERAPEUTIC TAB PO SCH (08:53)
[2018-12-06] MEDS: LISINOPRIL 5 MG TAB PO SCH (08:54)
[2018-12-06] MEDS: SENNA TAB PO SCH ×2 (08:56→21:24)
[2018-12-06] MEDS: POLYETHYLENE GLYCOL 17 GM PACKET PO SCH (08:56)
[2018-12-06] MEDS: oxyCODONE 5 MG TAB PO PRN ×3 (08:57→18:06)
[2018-12-06] MEDS: ARFORMOTEROL TARTRATE 15MCG/2 ML AMP INH SCH ×2 (09:00→20:00)
--- NOTE | 2018-12-06 09:39 | CONS ---
Assessment/Plan Assessment/Plan Hospital Course (Demo Recall) Preoperative cardiac risk stratification Septic arthritis status post surgery 12/05/2018 Preserved ejection fraction Hypertension -Patient status post surgery yesterday -Denies symptoms of chest pain, shortness of breath or palpitations. -Main complaint is knee pain postoperatively. Management as per surgery -No new cardiovascular orders at the current time Consultation Date/Type/Reason Admit Date/Time Dec 01, 2018 at 19:24 Initial Consult Date 12/04/18 Type of Consult Cardiology Date/Time of Note DATE: 12/06/18 TIME: 09:37 24 HR Interval Summary Free Text/Dictation Denies chest pain, shortness of breath. Does have knee pain post procedure Exam/Review of Systems Vital Signs Vitals Vital Signs Date Temp Pulse Resp B/P (MAP) Pulse Ox O2 O2 Flow FiO2 Time Delivery Rate 12/06/18 99.2 86 16 111/58 95 Room Air 07:55 (75) 12/04/18 21 20:31 Intake and Output 12/05/18 12/05/18 12/06/18 1414:59 22:59 06:59 IntakeIntake Total 170 ml 1050 ml 290 ml OutputOutput Total 100 ml 650 ml 300 ml BalanceBalance 70 ml 400 ml -10 ml Exam Constitutional: alert, oriented (No apparent distress) Head: normocephalic Respiratory: clear to auscultation, normal air movement, other Cardiovascular: regular rate and rhythm (S1-S2 heard) Gastrointestinal: soft, non-tender, bowel sounds Extremities: other (Resting lower extremity) Labs Result Diagram: 12/06/18 0648 12/06/18 0648 Results 24hrs Laboratory Tests Test 12/05/18 19:20 12/05/18 21:30 12/06/18 06:48 Pathologist Review (Hematology) NO Synovial Fluid Source RIGHT KNEE Synovial Fluid Color YELLOW Synovial Fluid Appearance CLOUDY Synovial Fluid Volume 25.0 H Synovial Fluid WBC 28353 H Synovial Fluid Polynuclear WBCs 92.9 H % Synovial Fluid Mononuclear WBCs 7.1 % Synovial Fluid Crystals NO CRYSTALS SEEN Urine Color YELLOW Urine Clarity CLEAR Urine pH 7.0 Urine Specific [place] 1.014 Urine Ketones NEGATIVE Urine Nitrite NEGATIVE Urine Bilirubin NEGATIVE Urine Urobilinogen NEGATIVE Urine Leukocyte Esterase NEGATIVE Urine Hemoglobin NEGATIVE Urine Glucose NEGATIVE Urine Total Protein NEGATIVE White Blood Count 7.7 # Red Blood Count 3.89 L Hemoglobin 10.3 L Hematocrit 33.7 L Mean Corpuscular Volume 86.6 Mean Corpuscular Hemoglobin 26.5 L Mean Corpuscular 30.6 L Hemoglobin Concent Red Cell Distribution Width 15.6 H Platelet Count 349 Mean Platelet Volume 9.8 Immature Granulocytes % 0.600 H Neutrophils % 76.1 Lymphocytes % 10.9 L Monocytes % 11.7 H Eosinophils % 0.3 Basophils % 0.4 Nucleated Red Blood Cells % 0.0 Immature Granulocytes # 0.050 H Neutrophils # 5.9 Lymphocytes # 0.8 Monocytes # 0.9 Eosinophils # 0.0 Basophils # 0.0 Nucleated Red Blood Cells # 0.0 Sodium Level 140 Potassium Level 4.2 Chloride Level 100 Carbon Dioxide Level 30 Anion Gap 10 Blood Urea Nitrogen 10 Creatinine 0.52 Est Glomerular Filtrat Rate mL/min Glucose Level 136 Calcium Level 8.9 Phosphorus Level 4.0 Magnesium Level 1.9 Medications Medications Current Medications Albuterol (Ventolin Hfa) 2 puff Q4H PRN INH WHEEZING AND SOB; Start 12/01/18 at 21:00 Ascorbic Acid (Vitamin C) 500 mg BID PO Last administered on 12/06/18at 08:52; Admin Dose 500 MG; Start 12/01/18 at 21:00 Bupropion HCl (Wellbutrin Xl) 300 mg DAILY PO Last administered on 12/06/18at 08:53; Admin Dose 300 MG; Start 12/02/18 at 09:00 Cholecalciferol (Vitamin D) 1,000 unit DAILY PO Last administered on 12/06/18at 08:52; Admin Dose 1,000 UNIT; Start 12/02/18 at 09:00 Diclofenac Sodium (Voltaren 1% Gel) 2 gm TID PRN TP PAIN; Start 12/01/18 at 21:00 Levothyroxine Sodium (Synthroid) 100 mcg BEFORE BREAKFAST PO Last administered on 12/06/18at 07:06; Admin Dose 100 MCG; Start 12/02/18 at 07:00 Lisinopril (Zestril) 5 mg DAILY PO Last administered on 12/06/18at 08:54; Admin Dose 5 MG; Start 12/02/18 at 09:00 Magnesium Hydroxide (Milk Of Mag) 30 ml DAILY PRN PO CONSTIPATION; Start 12/01/18 at 21:00 Multivitamins Therapeutic (Theragran) 1 tab DAILY PO Last administered on 12/06/18 08:53; Admin Dose 1 TAB; Start 12/02/18 at 09:00 Sodium Biphosphate/ Sodium Phosphate (Fleet Enema) 133 ml DAILY PRN [place] CONSTIPATION; Start 12/01/18 at 21:00 Polyethylene Glycol (Miralax) 17 gm DAILY PO Last administered on 12/06/18 08:56; Admin Dose 17 GM; Start 12/02/18 at 09:00 Senna (Senokot) 1 tab BID PO Last administered on 12/06/18 08:56; Admin Dose 1 TAB; Start 12/01/18 at 21:00 Vitamin B Complex/ Vitamin C (Berocca) 1 cap DAILY PO Last administered on 12/06/18 08:52; Admin Dose 1 CAP; Start 12/02/18 at 09:00 Arformoterol Tartrate (Brovana (Neb)) 2 ml BID RESP THERAPY INH Last administered on 12/04/18 20:38; Admin Dose 2 ML; Start 12/01/18 at 22:30 Fish Oil (Fish Oil) 1,000 mg DAILY PO Last administered on 12/06/18 08:52; Admin Dose 1,000 MG; Start 12/02/18 at 09:00 Ceftriaxone Sodium 50 ml @ 100 mls/hr Q24H IVPB Last administered on 12/04/18 17:50; Admin Dose 100 MLS/HR; Start 12/02/18 at 18:00 IV Flush (NS 3 ml) 3 ml PER PROTOCOL IV ; Start 12/01/18 at 22:00 Ondansetron HCl (Zofran Inj) 4 mg Q6H PRN IV NAUSEA/VOMITING; Start 12/01/18 at 22:00 Docusate Sodium (Colace) 100 mg Q12H PRN PO .CONSTIPATION; Start 12/01/18 at 22:00 Bisacodyl (Dulcolax) 5 mg DAILY PRN PO .CONSTIPATION; Start 12/01/18 at 22:00 Budesonide (Pulmicort (Neb)) 0.5 mg Q12H RESP THERAPY INH Last administered on 12/04/18 20:29; Admin Dose 0.5 MG; Start 12/01/18 at 23:00 Miscellaneous Information (Pending Santyl Order For Wound Care) This patient ruano... PRN PRN XX WOUND CARE; Start 12/02/18 at 00:00 Collagenase (Santyl) 1 applic BID TOP Last administered on 12/06/18at 08:52; Admin Dose 1 APPLIC; Start 12/02/18 at 11:30 Ferric Sodium Gluconate Complex 125 mg/Sodium Chloride 110 ml @ 110 mls/hr DAILY@1300 IVPB Last administered on 12/05/18at 12:31; Admin Dose 110 MLS/HR; Start 12/04/18 at 13:00; Stop 12/08/18 at 13:59 Lidocaine (Xylocaine 1% (Mpf)) 30 ml ONCE PRN INJ aspiration ; Start 12/04/18 at 17:30 Lactated Ringer's 1,000 ml @ 80 mls/hr [id number] IV ; Start 12/05/18 at 21:19 IV Flush (NS 3 ml) 3 ml PER PROTOCOL IV ; Start 12/05/18 at 21:30 Oxycodone HCl (Roxicodone) 15 mg Q4H PRN PO .PAIN Last administered on 11/09 05/29at 08:57; Admin Dose 15 MG; Start 12/05/18 at 21:30 Oxycodone HCl (Roxicodone) 10 mg Q4H PRN PO .PAIN; Start 12/05/18 at 21:30 Oxycodone HCl (Roxicodone) 5 mg Q4H PRN PO .PAIN; Start 12/05/18 at 21:30 Hydromorphone HCl (Dilaudid) 1 mg Q3H PRN IV .BREAKTHROUGH PAIN Last administered on 12/06/18at 06:58; Admin Dose 1 MG; Start 12/05/18 at 21:30 Acetaminophen (Tylenol Tab) 1,000 mg Q8 PO ; Start 12/06/18 at 22:00 Ondansetron HCl (Zofran Inj) 4 mg Q4H PRN IV NAUSEA/VOMITING; Start 12/06/18 at 21:30 Cefazolin Sodium/ Dextrose 50 ml @ 100 mls/hr Q8H IVPB Last administered on 12/06/18at 06:04; Admin Dose 100 MLS/HR; Start 12/05/18 at 22:00; Stop 12/06/18 at 14:29 Gabapentin (Neurontin) 300 mg QHS PO ; Start 12/06/18 at 21:00 Pantoprazole (Protonix Tab) 40 mg DAILY@06 PO ; Start 12/07/18 at 06:00 Docusate Sodium (Colace) 200 mg BID PO Last administered on 12/06/18at 08:52; Admin Dose 200 MG; Start 12/06/18 at 09:00; Stop 12/09/18 at 08:59 Simethicone (Mylicon) 80 mg TID PRN PO .GAS; Start 12/05/18 at 21:30 Senna/Docusate Sodium (Senokot-S) 2 tab BID PRN PO .CONSTIPATION Last adminis tered on 12/06/18at 08:54; Admin Dose 2 TAB; Start 12/05/18 at 21:30 Magnesium Hydroxide (Milk Of Mag) 30 ml HS PRN PO .CONSTIPATION; Start 12/05/18 at 21:30 Bisacodyl (Dulcolax Supp) 10 mg DAILY PRN [place] .CONSTIPATION; Start 12/05/18 at 21:30 Sodium Biphosphate/ Sodium Phosphate (Fleet Enema) 133 ml DAILY PRN [place] .CONSTIPATION; Start 12/05/18 at 21:30 Diphenhydramine HCl (Benadryl) 25 mg Q4H PRN IV .ITCHING; Start 12/05/18 at 21:30 Naloxone HCl (Narcan) 0.2 mg Q2M PRN IV .RESP RATE; Start 12/05/18 at 21:30 Bethanechol Chloride (Urecholine) 25 mg URINARY CATH D/C PRN PO UNABLE TO VOID; Start 12/05/18 at 21:30 Aspirin (Halfprin) 81 mg BID PO Last administered on 12/06/18at 08:52; Admin Dose 81 MG; Start 12/06/18 at 09:00 Naloxone HCl (Narcan) 0.2 mg Q2M PRN IV .RESP RATE; Start 12/05/18 at 21:30 Martin Kelley DO Dec 06, 2018 09:39
--- NOTE | 2018-12-06 12:54 | CONS ---
Assessment/Plan Assessment/Plan Hospital Course (Demo Recall) Patient is alert looks comfortable, no fevers Microbiology: Blood culture on admission grew strep galactorrhea, urine culture grew E. coli, MRSA swab negative, repeat blood cultures negative Diagnostics: CT of the brain revealed no intracranial hemorrhage or skull fracture. Right lower extremity CT revealed status post right knee arthroplasty with small to moderate joint effusion and synovitis. 2 cm heterogeneous fluid attenuating focus with whitney-dural enhancement in the region of distal vastus intermedius. Small abscess cannot be excluded. Additional rounded fluid focus laterally may be extension of the supra patellar bursa fluid. Please see full report in the chart. Bone scan was negative 2D echo revealed no vegetations Antimicrobials: Rocephin Physical examination: This is well-developed well-nourished elderly woman who is alert in no distress. Head atraumatic normocephalic neck is supple. Chest rise symmetrical breath sounds clear. Heart: S1-S2. Abdomen soft, bowel tones present. Extremities with right knee erythema and swelling Assessment: 1. Status post sepsis, present on admission 2. Streptococcal bacteremia 2 to 3. Right knee infected arthroplasty, status post I&D with poly exchange 4. Urinary tract infection 5. History of left total knee replacement 6. History of multilevel discectomy and posterior fusion from L1-L3, please see CT in the chart Plan: Stable post-op #1, continue present care, f/u intraoperative cx, pt will require 6 weeks IV abx Consultation Date/Type/Reason Admit Date/Time Dec 01, 2018 at 19:24 Initial Consult Date Type of Consult id Date/Time of Note DATE: 12/06/18 TIME: 12:51 Exam/Review of Systems Exam Vitals Vital Signs Date Temp Pulse Resp B/P (MAP) Pulse Ox O2 O2 Flow FiO2 Time Delivery Rate 12/06/18 99.2 86 16 111/58 95 Room Air 07:55 (75) 12/04/18 21 20:31 Intake and Output 12/05/18 12/05/18 12/06/18 1515:00 23:00 07:00 IntakeIntake Total 170 ml 1050 ml 290 ml OutputOutput Total 100 ml 650 ml 300 ml BalanceBalance 70 ml 400 ml -10 ml Results Result Diagram: 12/06/18 0648 12/06/18 0648 Results 24hrs Laboratory Tests Test 12/05/18 19:20 12/05/18 21:30 12/06/18 06:48 Pathologist Review (Hematology) NO Synovial Fluid Source RIGHT KNEE Synovial Fluid Color YELLOW Synovial Fluid Appearance CLOUDY Synovial Fluid Volume 25.0 H Synovial Fluid WBC 50503 H Synovial Fluid Polynuclear WBCs 92.9 H % Synovial Fluid Mononuclear WBCs 7.1 % Synovial Fluid Crystals NO CRYSTALS SEEN Urine Color YELLOW Urine Clarity CLEAR Urine pH 7.0 Urine Specific [place] 1.014 Urine Ketones NEGATIVE Urine Nitrite NEGATIVE Urine Bilirubin NEGATIVE Urine Urobilinogen NEGATIVE Urine Leukocyte Esterase NEGATIVE Urine Hemoglobin NEGATIVE Urine Glucose NEGATIVE Urine Total Protein NEGATIVE White Blood Count 7.7 # Red Blood Count 3.89 L Hemoglobin 10.3 L Hematocrit 33.7 L Mean Corpuscular Volume 86.6 Mean Corpuscular Hemoglobin 26.5 L Mean Corpuscular 30.6 L Hemoglobin Concent Red Cell Distribution Width 15.6 H Platelet Count 349 Mean Platelet Volume 9.8 Immature Granulocytes % 0.600 H Neutrophils % 76.1 Lymphocytes % 10.9 L Monocytes % 11.7 H Eosinophils % 0.3 Basophils % 0.4 Nucleated Red Blood Cells % 0.0 Immature Granulocytes # 0.050 H Neutrophils # 5.9 Lymphocytes # 0.8 Monocytes # 0.9 Eosinophils # 0.0 Basophils # 0.0 Nucleated Red Blood Cells # 0.0 Sodium Level 140 Potassium Level 4.2 Chloride Level 100 Carbon Dioxide Level 30 Anion Gap 10 Blood Urea Nitrogen 10 Creatinine 0.52 Est Glomerular Filtrat Rate mL/min Glucose Level 136 Calcium Level 8.9 Phosphorus Level 4.0 Magnesium Level 1.9 Medications Medication Current Medications Albuterol (Ventolin Hfa) 2 puff Q4H PRN INH WHEEZING AND SOB; Start 12/01/18 at 21:00 Ascorbic Acid (Vitamin C) 500 mg BID PO Last administered on 12/06/18at 08:52; Admin Dose 500 MG; Start 12/01/18 at 21:00 Bupropion HCl (Wellbutrin Xl) 300 mg DAILY PO Last administered on 12/06/18at 08:53; Admin Dose 300 MG; Start 12/02/18 at 09:00 Cholecalciferol (Vitamin D) 1,000 unit DAILY PO Last administered on 12/06/18at 08:52; Admin Dose 1,000 UNIT; Start 12/02/18 at 09:00 Diclofenac Sodium (Voltaren 1% Gel) 2 gm TID PRN TP PAIN; Start 12/01/18 at 21:00 Levothyroxine Sodium (Synthroid) 100 mcg BEFORE BREAKFAST PO Last administered on 12/06/18 07:06; Admin Dose 100 MCG; Start 12/02/18 at 07:00 Lisinopril (Zestril) 5 mg DAILY PO Last administered on 12/06/18 08:54; Admin Dose 5 MG; Start 12/02/18 at 09:00 Magnesium Hydroxide (Milk Of Mag) 30 ml DAILY PRN PO CONSTIPATION; Start 12/01/18 at 21:00 Multivitamins Therapeutic (Theragran) 1 tab DAILY PO Last administered on 12/06/18 08:53; Admin Dose 1 TAB; Start 12/02/18 at 09:00 Sodium Biphosphate/ Sodium Phosphate (Fleet Enema) 133 ml DAILY PRN [place] CONSTIPATION; Start 12/01/18 at 21:00 Polyethylene Glycol (Miralax) 17 gm DAILY PO Last administered on 12/06/18 08:56; Admin Dose 17 GM; Start 12/02/18 at 09:00 Senna (Senokot) 1 tab BID PO Last administered on 12/06/18 08:56; Admin Dose 1 TAB; Start 12/01/18 at 21:00 Vitamin B Complex/ Vitamin C (Berocca) 1 cap DAILY PO Last administered on 12/06/18 08:52; Admin Dose 1 CAP; Start 12/02/18 at 09:00 Arformoterol Tartrate (Brovana (Neb)) 2 ml BID RESP THERAPY INH Last administered on 12/04/18 20:38; Admin Dose 2 ML; Start 12/01/18 at 22:30 Fish Oil (Fish Oil) 1,000 mg DAILY PO Last administered on 12/06/18 08:52; Admin Dose 1,000 MG; Start 12/02/18 at 09:00 Ceftriaxone Sodium 50 ml @ 100 mls/hr Q24H IVPB Last administered on 12/04/18 17:50; Admin Dose 100 MLS/HR; Start 12/02/18 at 18:00 IV Flush (NS 3 ml) 3 ml PER PROTOCOL IV ; Start 12/01/18 at 22:00 Ondansetron HCl (Zofran Inj) 4 mg Q6H PRN IV NAUSEA/VOMITING; Start 12/01/18 at 22:00 Docusate Sodium (Colace) 100 mg Q12H PRN PO .CONSTIPATION; Start 12/01/18 at 22:00 Bisacodyl (Dulcolax) 5 mg DAILY PRN PO .CONSTIPATION; Start 12/01/18 at 22:00 Budesonide (Pulmicort (Neb)) 0.5 mg Q12H RESP THERAPY INH Last administered on 12/04/18at 20:29; Admin Dose 0.5 MG; Start 12/01/18 at 23:00 Miscellaneous Information (Pending Santyl Order For Wound Care) This patient ruano... PRN PRN XX WOUND CARE; Start 12/02/18 at 00:00 Collagenase (Santyl) 1 applic BID TOP Last administered on 12/06/18at 08:52; Admin Dose 1 APPLIC; Start 12/02/18 at 11:30 Ferric Sodium Gluconate Complex 125 mg/Sodium Chloride 110 ml @ 110 mls/hr DAILY@1300 IVPB Last administered on 12/05/18at 12:31; Admin Dose 110 MLS/HR; Start 12/04/18 at 13:00; Stop 12/08/18 at 13:59 Lidocaine (Xylocaine 1% (Mpf)) 30 ml ONCE PRN INJ aspiration ; Start 12/04/18 at 17:30 IV Flush (NS 3 ml) 3 ml PER PROTOCOL IV ; Start 12/05/18 at 21:30 Oxycodone HCl (Roxicodone) 15 mg Q4H PRN PO .PAIN Last administered on 12/06/18at 08:57; Admin Dose 15 MG; Start 12/05/18 at 21:30 Oxycodone HCl (Roxicodone) 10 mg Q4H PRN PO .PAIN; Start 12/05/18 at 21:30 Oxycodone HCl (Roxicodone) 5 mg Q4H PRN PO .PAIN; Start 12/05/18 at 21:30 Hydromorphone HCl (Dilaudid) 1 mg Q3H PRN IV .BREAKTHROUGH PAIN Last administered on 12/06/18at 06:58; Admin Dose 1 MG; Start 12/05/18 at 21:30 Acetaminophen (Tylenol Tab) 1,000 mg Q8 PO ; Start 12/06/18 at 22:00 Ondansetron HCl (Zofran Inj) 4 mg Q4H PRN IV NAUSEA/VOMITING; Start 12/06/18 at 21:30 Cefazolin Sodium/ Dextrose 50 ml @ 100 mls/hr Q8H IVPB Last administered on 12/06/18at 06:04; Admin Dose 100 MLS/HR; Start 12/05/18 at 22:00; Stop 12/06/18 at 14:29 Gabapentin (Neurontin) 300 mg QHS PO ; Start 12/06/18 at 21:00 Pantoprazole (Protonix Tab) 40 mg DAILY@06 PO ; Start 12/07/18 at 06:00 Docusate Sodium (Colace) 200 mg BID PO Last administered on 12/06/18at 08:52; Admin Dose 200 MG; Start 12/06/18 at 09:00; Stop 12/09/18 at 08:59 Simethicone (Mylicon) 80 mg TID PRN PO .GAS; Start 12/05/18 at 21:30 Senna/Docusate Sodium (Senokot-S) 2 tab BID PRN PO .CONSTIPATION Last administered on 12/06/18at 08:54; Admin Dose 2 TAB; Start 12/05/18 at 21:30 Magnesium Hydroxide (Milk Of Mag) 30 ml HS PRN PO .CONSTIPATION; Start 12/05/18 at 21:30 Bisacodyl (Dulcolax Supp) 10 mg DAILY PRN [place] .CONSTIPATION; Start 12/05/18 at 21:30 Sodium Biphosphate/ Sodium Phosphate (Fleet Enema) 133 ml DAILY PRN [place] .CONSTIPATION; Start 12/05/18 at 21:30 Diphenhydramine HCl (Benadryl) 25 mg Q4H PRN IV .ITCHING; Start 12/05/18 at 21:30 Naloxone HCl (Narcan) 0.2 mg Q2M PRN IV .RESP RATE; Start 12/05/18 at 21:30 Bethanechol Chloride (Urecholine) 25 mg URINARY CATH D/C PRN PO UNABLE TO VOID; Start 12/05/18 at 21:30 Aspirin (Halfprin) 81 mg BID PO Last administered on 12/06/18at 08:52; Admin Dose 81 MG; Start 12/06/18 at 09:00 Naloxone HCl (Narcan) 0.2 mg Q2M PRN IV .RESP RATE; Start 12/05/18 at 21:30 OZZIE SOLOMON NP Dec 06, 2018 12:54
[2018-12-06] MEDS: SOD FERRIC GLUC COMPLX 125 MG in SOD CHLORIDE 0.9% 100 ML IVPB SCH (13:48)
[2018-12-06 13:52] VITALS: BP 103/59; PULSE 83; RESP 16
--- NOTE | 2018-12-06 14:49 | PN ---
Date/Time of Note Date/Time of Note DATE: 12/06/18 TIME: 14:46 Assessment/Plan VTE Prophylaxis Risk score (from Ns)>0 risk: 14 SCD applied (from Ns): Yes Pharmacological prophylaxis: other (aspirin bid per ortho) Lines/Catheters IV Catheter Type (from Nrs): Saline Lock Urinary Cath still in place: No Assessment/Plan Hospital Course S: having a lot of pain in her knee, just completed PT O: Constitutional: alert, oriented Head: atraumatic, normocephalic Neck: non-tender, supple Respiratory: clear to auscultation Cardiovascular: regular rate and rhythm Gastrointestinal: S/ NT / ND / +BS Extremities: healing sacral ulcer, dressing around R knee assessment and plan: 73-year-old female brought in by ambulance from home after a ground-level fall #1 mechanical fall: likely 2/ #2 #2 Septic joint R Knee: -s/p prev RTKA -Patient is status post irrigation and debridement of right knee arthroplasty with wound complaint exchange of right total knee arthroplasty December 05, 2018 -Preoperative cultures negative, but intraoperative cultures growing group B strep. -Per Ortho, she will require IV antibiotics for 6 weeks and p.o. antibiotics for at least 3 to even 6 months. -Will order PICC line #3 chronic spinal disease: - Patient does have a history of significant stenosis of her spine. Lumbar spine and thoracic spine do so signs of stenosis though no acute fractures. - Continue pain management. #4 osteoarthritis: Continue to monitor, pain management #5 urinary tract infection: -Ecoli and lactobacillus -abx per ID #6 Strep Bacteremia : - from septic knee versus sacral ulcer #8 sacral ulcer -no osteo on bone scan, continue wound care Dispo: -patient has been accepted at [facility]. once final sensitivities are available and PICC line is in, patient can be discharged to complete 6 weeks abx at [facility]. Result Diagram: 12/06/18 0648 12/06/18 0648 Results 24hrs Laboratory Tests Test 12/05/18 19:20 12/05/18 21:30 12/06/18 06:48 Pathologist Review (Hematology) NO Synovial Fluid Source RIGHT KNEE Synovial Fluid Color YELLOW Synovial Fluid Appearance CLOUDY Synovial Fluid Volume 25.0 H Synovial Fluid WBC 83886 H Synovial Fluid Polynuclear WBCs 92.9 H % Synovial Fluid Mononuclear WBCs 7.1 % Synovial Fluid Crystals NO CRYSTALS SEEN Urine Color YELLOW Urine Clarity CLEAR Urine pH 7.0 Urine Specific [place] 1.014 Urine Ketones NEGATIVE Urine Nitrite NEGATIVE Urine Bilirubin NEGATIVE Urine Urobilinogen NEGATIVE Urine Leukocyte Esterase NEGATIVE Urine Hemoglobin NEGATIVE Urine Glucose NEGATIVE Urine Total Protein NEGATIVE White Blood Count 7.7 # Red Blood Count 3.89 L Hemoglobin 10.3 L Hematocrit 33.7 L Mean Corpuscular Volume 86.6 Mean Corpuscular Hemoglobin 26.5 L Mean Corpuscular 30.6 L Hemoglobin Concent Red Cell Distribution Width 15.6 H Platelet Count 349 Mean Platelet Volume 9.8 Immature Granulocytes % 0.600 H Neutrophils % 76.1 Lymphocytes % 10.9 L Monocytes % 11.7 H Eosinophils % 0.3 Basophils % 0.4 Nucleated Red Blood Cells % 0.0 Immature Granulocytes # 0.050 H Neutrophils # 5.9 Lymphocytes # 0.8 Monocytes # 0.9 Eosinophils # 0.0 Basophils # 0.0 Nucleated Red Blood Cells # 0.0 Sodium Level 140 Potassium Level 4.2 Chloride Level 100 Carbon Dioxide Level 30 Anion Gap 10 Blood Urea Nitrogen 10 Creatinine 0.52 Est Glomerular Filtrat Rate mL/min Glucose Level 136 Calcium Level 8.9 Phosphorus Level 4.0 Magnesium Level 1.9 Exam/Review of Systems Exam Vitals Vital Signs Date Temp Pulse Resp B/P (MAP) Pulse Ox O2 O2 Flow FiO2 Time Delivery Rate 12/06/18 99.8 83 16 103/59 95 13:52 (74) 12/06/18 Room Air 07:55 12/04/18 21 20:31 Intake and Output 12/05/18 12/05/18 12/06/18 1515:00 23:00 07:00 IntakeIntake Total 170 ml 1050 ml 290 ml OutputOutput Total 100 ml 650 ml 300 ml BalanceBalance 70 ml 400 ml -10 ml Results Results 24hrs Laboratory Tests Test 12/05/18 19:20 12/05/18 21:30 12/06/18 06:48 Pathologist Review (Hematology) NO Synovial Fluid Source RIGHT KNEE Synovial Fluid Color YELLOW Synovial Fluid Appearance CLOUDY Synovial Fluid Volume 25.0 H Synovial Fluid WBC 52330 H Synovial Fluid Polynuclear WBCs 92.9 H % Synovial Fluid Mononuclear WBCs 7.1 % Synovial Fluid Crystals NO CRYSTALS SEEN Urine Color YELLOW Urine Clarity CLEAR Urine pH 7.0 Urine Specific [place] 1.014 Urine Ketones NEGATIVE Urine Nitrite NEGATIVE Urine Bilirubin NEGATIVE Urine Urobilinogen NEGATIVE Urine Leukocyte Esterase NEGATIVE Urine Hemoglobin NEGATIVE Urine Glucose NEGATIVE Urine Total Protein NEGATIVE White Blood Count 7.7 # Red Blood Count 3.89 L Hemoglobin 10.3 L Hematocrit 33.7 L Mean Corpuscular Volume 86.6 Mean Corpuscular Hemoglobin 26.5 L Mean Corpuscular 30.6 L Hemoglobin Concent Red Cell Distribution Width 15.6 H Platelet Count 349 Mean Platelet Volume 9.8 Immature Granulocytes % 0.600 H Neutrophils % 76.1 Lymphocytes % 10.9 L Monocytes % 11.7 H Eosinophils % 0.3 Basophils % 0.4 Nucleated Red Blood Cells % 0.0 Immature Granulocytes # 0.050 H Neutrophils # 5.9 Lymphocytes # 0.8 Monocytes # 0.9 Eosinophils # 0.0 Basophils # 0.0 Nucleated Red Blood Cells # 0.0 Sodium Level 140 Potassium Level 4.2 Chloride Level 100 Carbon Dioxide Level 30 Anion Gap 10 Blood Urea Nitrogen 10 Creatinine 0.52 Est Glomerular Filtrat Rate mL/min Glucose Level 136 Calcium Level 8.9 Phosphorus Level 4.0 Magnesium Level 1.9 Medications Medication Current Medications Albuterol (Ventolin Hfa) 2 puff Q4H PRN INH WHEEZING AND SOB; Start 12/01/18 at 21:00 Ascorbic Acid (Vitamin C) 500 mg BID PO Last administered on 12/06/18 08:52; Admin Dose 500 MG; Start 12/01/18 at 21:00 Bupropion HCl (Wellbutrin Xl) 300 mg DAILY PO Last administered on 12/06/18 08:53; Admin Dose 300 MG; Start 12/02/18 at 09:00 Cholecalciferol (Vitamin D) 1,000 unit DAILY PO Last administered on 12/06/18 08:52; Admin Dose 1,000 UNIT; Start 12/02/18 at 09:00 Diclofenac Sodium (Voltaren 1% Gel) 2 gm TID PRN TP PAIN; Start 12/01/18 at 21:00 Levothyroxine Sodium (Synthroid) 100 mcg BEFORE BREAKFAST PO Last administered on 12/06/18at 07:06; Admin Dose 100 MCG; Start 12/02/18 at 07:00 Lisinopril (Zestril) 5 mg DAILY PO Last administered on 12/06/18at 08:54; Admin Dose 5 MG; Start 12/02/18 at 09:00 Magnesium Hydroxide (Milk Of Mag) 30 ml DAILY PRN PO CONSTIPATION; Start 12/01/18 at 21:00 Multivitamins Therapeutic (Theragran) 1 tab DAILY PO Last administered on 12/06/18 08:53; Admin Dose 1 TAB; Start 12/02/18 at 09:00 Sodium Biphosphate/ Sodium Phosphate (Fleet Enema) 133 ml DAILY PRN [place] CONSTIPATION; Start 12/01/18 at 21:00 Polyethylene Glycol (Miralax) 17 gm DAILY PO Last administered on 12/06/18 08:56; Admin Dose 17 GM; Start 12/02/18 at 09:00 Senna (Senokot) 1 tab BID PO Last administered on 12/06/18 08:56; Admin Dose 1 TAB; Start 12/01/18 at 21:00 Vitamin B Complex/ Vitamin C (Berocca) 1 cap DAILY PO Last administered on 12/06/18 08:52; Admin Dose 1 CAP; Start 12/02/18 at 09:00 Arformoterol Tartrate (Brovana (Neb)) 2 ml BID RESP THERAPY INH Last administered on 12/04/18 20:38; Admin Dose 2 ML; Start 12/01/18 at 22:30 Fish Oil (Fish Oil) 1,000 mg DAILY PO Last administered on 12/06/18 08:52; Admin Dose 1,000 MG; Start 12/02/18 at 09:00 Ceftriaxone Sodium 50 ml @ 100 mls/hr Q24H IVPB Last administered on 12/04/18 17:50; Admin Dose 100 MLS/HR; Start 12/02/18 at 18:00 IV Flush (NS 3 ml) 3 ml PER PROTOCOL IV ; Start 12/01/18 at 22:00 Ondansetron HCl (Zofran Inj) 4 mg Q6H PRN IV NAUSEA/VOMITING; Start 12/01/18 at 22:00 Docusate Sodium (Colace) 100 mg Q12H PRN PO .CONSTIPATION; Start 12/01/18 at 22:00 Bisacodyl (Dulcolax) 5 mg DAILY PRN PO .CONSTIPATION; Start 12/01/18 at 22:00 Budesonide (Pulmicort (Neb)) 0.5 mg Q12H RESP THERAPY INH Last administered on 3/27/19at 20:29; Admin Dose 0.5 MG; Start 12/01/18 at 23:00 Miscellaneous Information (Pending Santyl Order For Wound Care) This patient ruano... PRN PRN XX WOUND CARE; Start 12/02/18 at 00:00 Collagenase (Santyl) 1 applic BID TOP Last administered on 12/06/18at 08:52; Admin Dose 1 APPLIC; Start 12/02/18 at 11:30 Ferric Sodium Gluconate Complex 125 mg/Sodium Chloride 110 ml @ 110 mls/hr DAILY@1300 IVPB Last administered on 12/06/18at 13:48; Admin Dose 110 MLS/HR; Start 12/04/18 at 13:00; Stop 12/08/18 at 13:59 Lidocaine (Xylocaine 1% (Mpf)) 30 ml ONCE PRN INJ aspiration ; Start 12/04/18 at 17:30 IV Flush (NS 3 ml) 3 ml PER PROTOCOL IV ; Start 12/05/18 at 21:30 Oxycodone HCl (Roxicodone) 15 mg Q4H PRN PO .PAIN Last administered on 12/06/18at 13:49; Admin Dose 15 MG; Start 12/05/18 at 21:30 Oxycodone HCl (Roxicodone) 10 mg Q4H PRN PO .PAIN; Start 12/05/18 at 21:30 Oxycodone HCl (Roxicodone) 5 mg Q4H PRN PO .PAIN; Start 12/05/18 at 21:30 Hydromorphone HCl (Dilaudid) 1 mg Q3H PRN IV .BREAKTHROUGH PAIN Last a dministered on 12/06/18at 06:58; Admin Dose 1 MG; Start 12/05/18 at 21:30 Acetaminophen (Tylenol Tab) 1,000 mg Q8 PO ; Start 12/06/18 at 22:00 Ondansetron HCl (Zofran Inj) 4 mg Q4H PRN IV NAUSEA/VOMITING; Start 12/06/18 at 21:30 Gabapentin (Neurontin) 300 mg QHS PO ; Start 12/06/18 at 21:00 Pantoprazole (Protonix Tab) 40 mg DAILY@06 PO ; Start 12/07/18 at 06:00 Docusate Sodium (Colace) 200 mg BID PO Last administered on 12/06/18at 08:52; Admin Dose 200 MG; Start 12/06/18 at 09:00; Stop 12/09/18 at 08:59 Simethicone (Mylicon) 80 mg TID PRN PO .GAS; Start 12/05/18 at 21:30 Senna/Docusate Sodium (Senokot-S) 2 tab BID PRN PO .CONSTIPATION Last administered on 12/06/18at 08:54; Admin Dose 2 TAB; Start 12/05/18 at 21:30 Magnesium Hydroxide (Milk Of Mag) 30 ml HS PRN PO .CONSTIPATION; Start 12/05/18 at 21:30 Bisacodyl (Dulcolax Supp) 10 mg DAILY PRN OR .CONSTIPATION; Start 12/05/18 at 21:30 Sodium Biphosphate/ Sodium Phosphate (Fleet Enema) 133 ml DAILY PRN OR .CONSTIPATION; Start 12/05/18 at 21:30 Diphenhydramine HCl (Benadryl) 25 mg Q4H PRN IV .ITCHING; Start 12/05/18 at 21:30 Naloxone HCl (Narcan) 0.2 mg Q2M PRN IV .RESP RATE; Start 12/05/18 at 21:30 Bethanechol Chloride (Urecholine) 25 mg URINARY CATH D/C PRN PO UNABLE TO VOID; Start 12/05/18 at 21:30 Aspirin (Halfprin) 81 mg BID PO Last administered on 12/06/18at 08:52; Admin Dose 81 MG; Start 12/06/18 at 09:00 Naloxone HCl (Narcan) 0.2 mg Q2M PRN IV .RESP RATE; Start 12/05/18 at 21:30 RANDY ROMERO Dec 06, 2018 14:49
[2018-12-06] MEDS ORDERED: LIDOCAINE 1% (MPF) 5 ML VIAL SC ONE (15:00)
[2018-12-06] MEDS: CEFTRIAXONE 1 GM/50 ML (PMX) 50 ML IVPB SCH (18:06)
[2018-12-06 20:21] VITALS: BP 106/58; PULSE 84; RESP 16
[2018-12-06] MEDS: GABAPENTIN 300 MG CAP PO SCH (21:24)
[2018-12-06] MEDS: ACETAMINOPHEN 500 MG TAB PO SCH (21:25)
[2018-12-06] MEDS ORDERED: ONDANSETRON 4 MG INJ IV PRN (21:30)
[2018-12-07] MEDS: oxyCODONE 5 MG TAB PO PRN ×2 (02:36→11:52)
[2018-12-07 03:41] VITALS: BP 98/58; PULSE 72; RESP 16
[2018-12-07] MEDS: PANTOPRAZOLE (EC) 40 MG TAB PO SCH (05:53)
[2018-12-07] MEDS: ACETAMINOPHEN 500 MG TAB PO SCH ×3 (05:54→21:05)
[2018-12-07] MEDS: LEVOTHYROXINE 100 MCG TAB PO SCH (06:03)
[2018-12-07 08:00] VITALS: BP 116/62; PULSE 83; RESP 16
[2018-12-07] MEDS ORDERED: LIDOCAINE 1% (MPF) 5 ML VIAL SC ONE (08:00)
[2018-12-07] MEDS: CHOLECALCIFEROL 1,000 UNIT TAB PO SCH (08:54)
[2018-12-07] MEDS: ASPIRIN (EC) 81 MG TAB PO SCH ×2 (08:54→22:46)
[2018-12-07] MEDS: LISINOPRIL 5 MG TAB PO SCH (08:54)
[2018-12-07] MEDS: POLYETHYLENE GLYCOL 17 GM PACKET PO SCH (08:54)
[2018-12-07] MEDS: ASCORBIC ACID 500 MG TAB PO SCH ×2 (08:55→21:04)
[2018-12-07] MEDS: MULTIVITAMINS THERAPEUTIC TAB PO SCH (08:55)
[2018-12-07] MEDS: DOCUSATE SODIUM 100 MG CAP PO SCH ×2 (08:55→21:05)
[2018-12-07] MEDS: VITAMIN B COMPLEX/VIT C CAP PO SCH (08:55)
[2018-12-07] MEDS: SENNA TAB PO SCH ×2 (08:55→21:05)
[2018-12-07] MEDS: FISH OIL 1,000 MG CAP PO SCH (08:55)
[2018-12-07] MEDS: COLLAGENASE 5 GM (UD JAR) TOP SCH ×2 (08:56→21:05)
[2018-12-07] MEDS: BUPROPION (XL) 150 MG TAB PO SCH (08:56)
[2018-12-07] MEDS: ARFORMOTEROL TARTRATE 15MCG/2 ML AMP INH SCH ×2 (09:15→19:12)
[2018-12-07] MEDS: BUDESONIDE (NEB) 0.5MG/2ML AMP INH SCH ×2 (09:15→19:12)
--- NOTE | 2018-12-07 13:03 | PN ---
Date/Time of Note Date/Time of Note DATE: 12/07/18 TIME: 12:58 Assessment/Plan Lines/Catheters IV Catheter Type (from Nrs): Saline Lock Schaeffer in Place (from Nrs): No Assessment/Plan Chief Complaint/Hosp Course 73-year-old female with acute hematogenous infection of the right TKA postop day #2 status post I&D and poly-exchange. Preliminary intraoperative cultures are growing strep group B which are the same as her blood cultures. Patient will need to remain admitted until final cultures return for the right knee which will be approximately 5 days from surgery. The patient will need a PICC line as she will need IV antibiotics for 6 weeks. After that she will need p.o. antibiotics for 3-6 months Plan: Pain control Physical therapy Continue IV antibiotics per infectious disease -currently on ceftriaxone 1 g every 24 hours continue to follow-up intraoperative cultures Dietregular DC Hemovac likely tomorrow DC Schaeffer Subjective 24 Hr Interval Summary Patient doing well No acute events overnight Pain is well controlled Exam/Review of Systems Vital Signs Vitals Vital Signs Date Temp Pulse Resp B/P (MAP) Pulse Ox O2 O2 Flow FiO2 Time Delivery Rate 12/07/18 72 93 21 09:16 12/07/18 98.4 83 116/62 Room Air 08:00 (80) Intake and Output 12/06/18 12/06/18 12/07/18 1515:00 23:00 07:00 IntakeIntake Total 550 ml 490 ml 100 ml OutputOutput Total 200 ml 800 ml 1600 ml BalanceBalance 350 ml -310 ml -1500 ml Exam Free Text/Dictation Right lower extremity: Dressing: clean, dry, and intact, no erythema Hemovac drain in place exiting the anterolateral thigh with sanguinous drainage. Sensation intact to light touch in a sural, saphenous, deep peroneal, superficial peroneal, medial and lateral plantar nerve distribution. Motor is intact, patient able to dorsiflex and plantarflex ankle and extend and flex great toe. Dorsalis Pedis pulse +2, Brisk capillary refill. Compartments are soft. Calves non-tender to palpation bilaterally. Results Free Text/Dictation Intraoperative cultures: Strep group B -preliminary Result Diagram: 12/07/18 0505 12/07/18 0504 EMIGDIO LUBIN MD Dec 07, 2018 13:03
--- NOTE | 2018-12-07 13:11 | PN ---
Date/Time of Note Date/Time of Note DATE: 12/07/18 TIME: 13:09 Objective Vitals Vital Signs Date Temp Pulse Resp B/P (MAP) Pulse Ox O2 O2 Flow FiO2 Time Delivery Rate 12/07/18 72 93 21 09:16 12/07/18 98.4 83 116/62 Room Air 08:00 (80) Intake and Output 12/06/18 12/06/18 12/07/18 1515:00 23:00 07:00 IntakeIntake Total 550 ml 490 ml 100 ml OutputOutput Total 200 ml 800 ml 1600 ml BalanceBalance 350 ml -310 ml -1500 ml Results Result Diagram: 12/07/18 0505 12/07/18 0504 Medications Medications Current Medications Albuterol (Ventolin Hfa) 2 puff Q4H PRN INH WHEEZING AND SOB; Start 12/01/18 at 21:00 Ascorbic Acid (Vitamin C) 500 mg BID PO Last administered on 12/07/18 08:55; Admin Dose 500 MG; Start 12/01/18 at 21:00 Bupropion HCl (Wellbutrin Xl) 300 mg DAILY PO Last administered on 12/07/18 08:56; Admin Dose 300 MG; Start 12/02/18 at 09:00 Cholecalciferol (Vitamin D) 1,000 unit DAILY PO Last administered on 12/07/18 08:54; Admin Dose 1,000 UNIT; Start 12/02/18 at 09:00 Diclofenac Sodium (Voltaren 1% Gel) 2 gm TID PRN TP PAIN; Start 12/01/18 at 21:00 Levothyroxine Sodium (Synthroid) 100 mcg BEFORE BREAKFAST PO Last administered on 12/07/18 06:03; Admin Dose 100 MCG; Start 12/02/18 at 07:00 Lisinopril (Zestril) 5 mg DAILY PO Last administered on 12/07/18 08:54; Admin Dose 5 MG; Start 12/02/18 at 09:00 Magnesium Hydroxide (Milk Of Mag) 30 ml DAILY PRN PO CONSTIPATION; Start 12/01/18 at 21:00 Multivitamins Therapeutic (Theragran) 1 tab DAILY PO Last administered on 12/07 08:55; Admin Dose 1 TAB; Start 12/02/18 at 09:00 Sodium Biphosphate/ Sodium Phosphate (Fleet Enema) 133 ml DAILY PRN [place] CONSTIPATION; Start 12/01/18 at 21:00 Polyethylene Glycol (Miralax) 17 gm DAILY PO Last administered on 12/07/18 08:54; Admin Dose 17 GM; Start 12/02/18 at 09:00 Senna (Senokot) 1 tab BID PO Last administered on 12/07/18 08:55; Admin Dose 1 TAB; Start 12/01/18 at 21:00 Vitamin B Complex/ Vitamin C (Berocca) 1 cap DAILY PO Last administered on 12/07/18 08:55; Admin Dose 1 CAP; Start 12/02/18 at 09:00 Arformoterol Tartrate (Brovana (Neb)) 2 ml BID RESP THERAPY INH Last administered on 12/07/18 09:15; Admin Dose 2 ML; Start 12/01/18 at 22:30 Fish Oil (Fish Oil) 1,000 mg DAILY PO Last administered on 12/07/18 08:55; Admin Dose 1,000 MG; Start 12/02/18 at 09:00 Ceftriaxone Sodium 50 ml @ 100 mls/hr Q24H IVPB Last administered on 12/06/18 18:06; Admin Dose 100 MLS/HR; Start 12/02/18 at 18:00 IV Flush (NS 3 ml) 3 ml PER PROTOCOL IV ; Start 12/01/18 at 22:00 Ondansetron HCl (Zofran Inj) 4 mg Q6H PRN IV NAUSEA/VOMITING; Start 12/01/18 at 22:00 Docusate Sodium (Colace) 100 mg Q12H PRN PO .CONSTIPATION; Start 12/01/18 at 22:00 Bisacodyl (Dulcolax) 5 mg DAILY PRN PO .CONSTIPATION; Start 12/01/18 at 22:00 Budesonide (Pulmicort (Neb)) 0.5 mg Q12H RESP THERAPY INH Last administered on 12/07/18 09:15; Admin Dose 0.5 MG; Start 12/01/18 at 23:00 Miscellaneous Information (Pending Santyl Order For Wound Care) This patient ruano... PRN PRN XX WOUND CARE; Start 12/02/18 at 00:00 Collagenase (Santyl) 1 applic BID TOP Last administered on 12/07/18 08:56; Admin Dose 1 APPLIC; Start 12/02/18 at 11:30 Ferric Sodium Gluconate Complex 125 mg/Sodium Chloride 110 ml @ 110 mls/hr DAILY@1300 IVPB Last administered on 12/06/18 13:48; Admin Dose 110 MLS/HR; Start 12/04/18 at 13:00; Stop 12/08/18 at 13:59 Lidocaine (Xylocaine 1% (Mpf)) 30 ml ONCE PRN INJ aspiration ; Start 12/04/18 at 17:30 IV Flush (NS 3 ml) 3 ml PER PROTOCOL IV ; Start 12/05/18 at 21:30 Oxycodone HCl (Roxicodone) 15 mg Q4H PRN PO .PAIN Last administered on 12/07/18 11:52; Admin Dose 15 MG; Start 12/05/18 at 21:30 Oxycodone HCl (Roxicodone) 10 mg Q4H PRN PO .PAIN Last administered on 12/07/18 02:36; Admin Dose 10 MG; Start 12/05/18 at 21:30 Oxycodone HCl (Roxicodone) 5 mg Q4H PRN PO .PAIN; Start 12/05/18 at 21:30 Hydromorphone HCl (Dilaudid) 1 mg Q3H PRN IV .BREAKTHROUGH PAIN Last administered on 12/06/18 06:58; Admin Dose 1 MG; Start 12/05/18 at 21:30 Acetaminophen (Tylenol Tab) 1,000 mg Q8 PO Last administered on 12/07/18 05:54; Admin Dose 1,000 MG; Start 12/06/18 at 22:00 Ondansetron HCl (Zofran Inj) 4 mg Q4H PRN IV NAUSEA/VOMITING; Start 12/06/18 at 21:30 Gabapentin (Neurontin) 300 mg QHS PO Last administered on 12/06/18 21:24; Admin Dose 300 MG; Start 12/06/18 at 21:00 Pantoprazole (Protonix Tab) 40 mg DAILY@06 PO Last administered on 12/07/18 05:53; Admin Dose 40 MG; Start 12/07/18 at 06:00 Docusate Sodium (Colace) 200 mg BID PO Last administered on 12/07/18 08:55; Admin Dose 200 MG; Start 12/06/18 at 09:00; Stop 12/09/18 at 08:59 Simethicone (Mylicon) 80 mg TID PRN PO .GAS; Start 12/05/18 at 21:30 Senna/Docusate Sodium (Senokot-S) 2 tab BID PRN PO .CONSTIPATION Last administered on 12/06/18at 08:54; Admin Dose 2 TAB; Start 12/05/18 at 21:30 Magnesium Hydroxide (Milk Of Mag) 30 ml HS PRN PO .CONSTIPATION; Start 12/05/18 at 21:30 Bisacodyl (Dulcolax Supp) 10 mg DAILY PRN [place] .CONSTIPATION; Start 12/05/18 at 21:30 Sodium Biphosphate/ Sodium Phosphate (Fleet Enema) 133 ml DAILY PRN [place] .CONSTIPATION; Start 12/05/18 at 21:30 Diphenhydramine HCl (Benadryl) 25 mg Q4H PRN IV .ITCHING; Start 12/05/18 at 21:30 Naloxone HCl (Narcan) 0.2 mg Q2M PRN IV .RESP RATE; Start 12/05/18 at 21:30 Bethanechol Chloride (Urecholine) 25 mg URINARY CATH D/C PRN PO UNABLE TO VOID; Start 12/05/18 at 21:30 Aspirin (Halfprin) 81 mg BID PO Last administered on 12/07/18at 08:54; Admin Dose 81 MG; Start 12/06/18 at 09:00 Naloxone HCl (Narcan) 0.2 mg Q2M PRN IV .RESP RATE; Start 12/05/18 at 21:30 VTE Prophylaxis Risk score (from Nsg)>0 risk: 14 SCD applied (from Nsg): Yes Lines/Catheters IV Catheter Type: Schaeffer in Place: No Assessment/Plan Hospital Course S: Patient otherwise feeling well, some knee complaints, but overall pain is mildly better O: Constitutional: alert, oriented Head: atraumatic, normocephalic Neck: non-tender, supple Respiratory: clear to auscultation Cardiovascular: regular rate and rhythm Gastrointestinal: S/ NT / ND / +BS Extremities: healing sacral ulcer, dressing around R knee assessment and plan: 73-year-old female brought in by ambulance from home after a ground-level fall #1 mechanical fall: likely 2/2 #2 #2 Septic joint R Knee: -s/p prev RTKA -Patient is status post irrigation and debridement of right knee arthroplasty with wound complaint exchange of right total knee arthroplasty December 05, 2018 -Preoperative cultures negative, but intraoperative cultures growing group B strep. -Per Ortho, she will require IV antibiotics for 6 weeks and p.o. antibiotics for at least 3 to even 6 months. -Will order PICC line #3 chronic spinal disease: - Patient does have a history of significant stenosis of her spine. Lumbar spine and thoracic spine do so signs of stenosis though no acute fractures. - Continue pain management. #4 osteoarthritis: Continue to monitor, pain management #5 urinary tract infection: -Ecoli and lactobacillus -abx per ID #6 Strep Bacteremia : - from septic knee versus sacral ulcer #8 sacral ulcer -no osteo on bone scan, continue wound care Dispo: Orthopedic surgery would like to wait until final cultures are back, will await until final intraoperative cultures are back before discharging to half-way facility HARJEET PATINO Dec 07, 2018 13:11
--- NOTE | 2018-12-07 13:14 | CONS ---
Assessment/Plan Assessment/Plan Hospital Course (Demo Recall) ID PROGRESS NOTE CURRENT ABX: DAY # => Ceftriaxone 12/07/18 0505 12/07/18 0504 24H INTERVAL SUMMARY * POD #2 -> S/P 12/05/18 Right knee infected arthroplasty, status post I&D with poly exchange * A/A/O -- afebrile today, TMax yesterday 99.8, hemovac drain in place post op knee pain ongoing DIAGNOSTIC IMAGING * Diagnostics: CT of the brain revealed no intracranial hemorrhage or skull f racture. Right lower extremity CT revealed status post right knee arthroplasty with small to moderate joint effusion and synovitis. 2 cm heterogeneous fluid attenuating focus with whitney-dural enhancement in the region of distal vastus intermedius. Small abscess cannot be excluded. Additional rounded fluid focus laterally may be extension of the supra patellar bursa fluid. Please see full report in the chart. Bone scan was negative MICRO/OTHER * URINE CX (-) * 12/01/18 BCX (+) 2/2 BOTTLES BLOOD CULTURE Final Organism 1 STREP AGALACTIAE - (GROUP B) * 12/01/18 URINE CX: URINE CULTURE Final Organism 1 ESCHERICHIA COLI COLONY COUNT >100,000 CFU/ml Organism 2 LACTOBACILLUS SPECIES COLONY COUNT >100,000 CFU/ml * 12/03/18 SACRAL WOUND: WOUND CULTURE Preliminary Organism 1 PROTEUS MIRABILIS QUANTITY SCANT GROWTH Organism 2 STREP AGALACTIAE - (GROUP B) QUANTITY SCANT GROWTH Organism 3 STAPHYLOCOCCUS AUREUS QUANTITY ISOLATED FROM BROTH ONLY P. MIRAB M.I.C. RX --------- --- AMIKACIN <=2 S AMPICILLIN >=32 R CEFEPIME <=1 S CEFOTAXIME I CIPROFLOXACIN >=4 R GENTAMICIN >=16 R LEVOFLOXACIN >=8 R TOBRAMYCIN 8 I TRIMETHOPRIM/SULFAMETHOXAZOLE >=320 R PIPERACILLIN/TAZOBACTAM <=4 S * 12/05/18 RIGHT KNEE CX: TISSUE (BIOPSY) CULTURE Preliminary Organism 1 STREP AGALACTIAE - (GROUP B) QUANTITY 2+ * PHYSICAL EXAMINATION: GENERAL: VSS, NAD HEENT: AT, NC, anicteric, NECK: Supple, CHEST: Equal chest rise bilaterally, without dyspnea on observation HEART: Pulse RRR ABDOMEN: Soft / NT : FC EXTREMITIES: Warm, dry SKIN: No rash, no diaphoresis ID ASSESSMENT 73 yo F admit with: 1. Status post sepsis, present on admission 2. Streptococcal bacteremia 2 to #3 * 2D echo revealed no vegetations 3. Right knee infected arthroplasty, status post I&D with poly exchange 4. Urinary tract infection 5. History of left total knee replacement 6. History of multilevel discectomy and posterior fusion from L1-L3, please see CT in the chart 7. 12/03/18 SACRAL WOUND: WOUND CULTURE Preliminary Organism 1 PROTEUS MIRABILIS QUANTITY SCANT GROWTH Organism 2 STREP AGALACTIAE - (GROUP B) QUANTITY SCANT GROWTH Organism 3 STAPHYLOCOCCUS AUREUS QUANTITY ISOLATED FROM BROTH ONLY (-)MRSA Nares ABX ALLERGIES: None to ABX INVASIVES: PIV CURRENT ABX: DAY # Ceftriaxone ID RECOMMENDATIONS/PLAN: 1. Continue current ABX -- F/U ON FINAL TISSUE CX PENDING Consultation Date/Type/Reason Admit Date/Time Dec 01, 2018 at 19:24 Initial Consult Date 12/04/18 Date/Time of Note DATE: 12/07/18 TIME: 13:14 Exam/Review of Systems Exam Vitals Vital Signs Date Temp Pulse Resp B/P (MAP) Pulse Ox O2 O2 Flow FiO2 Time Delivery Rate 12/07/18 72 93 21 09:16 12/07/18 98.4 83 116/62 Room Air 08:00 (80) Intake and Output 12/06/18 12/06/18 12/07/18 1414:59 22:59 06:59 IntakeIntake Total 550 ml 490 ml 100 ml OutputOutput Total 200 ml 800 ml 1600 ml BalanceBalance 350 ml -310 ml -1500 ml Results Result Diagram: 12/07/18 0505 12/07/18 0504 Results 24hrs Laboratory Tests Test 12/07/18 05:04 12/07/18 05:05 Sodium Level 140 Potassium Level 3.5 Chloride Level 105 Carbon Dioxide Level 29 Anion Gap 6 Blood Urea Nitrogen 10 Creatinine 0.52 Est Glomerular Filtrat Rate mL/min Glucose Level 105 Calcium Level 8.8 White Blood Count 8.8 Red Blood Count 3.77 L Hemoglobin 10.0 L Hematocrit 32.1 L Mean Corpuscular Volume 85.1 Mean Corpuscular Hemoglobin 26.5 L Mean Corpuscular Hemoglobin Concent 31.2 L Red Cell Distribution Width 15.4 H Platelet Count 345 Mean Platelet Volume 9.6 Immature Granulocytes % 1.200 H Neutrophils % 68.3 Lymphocytes % 15.5 Monocytes % 13.7 H Eosinophils % 0.8 Basophils % 0.5 Nucleated Red Blood Cells % 0.0 Immature Granulocytes # 0.110 H Neutrophils # 6.0 Lymphocytes # 1.4 Monocytes # 1.2 H Eosinophils # 0.1 Basophils # 0.0 Nucleated Red Blood Cells # 0.0 Medications Medication Current Medications Albuterol (Ventolin Hfa) 2 puff Q4H PRN INH WHEEZING AND SOB; Start 12/01/18 at 21:00 Ascorbic Acid (Vitamin C) 500 mg BID PO Last administered on 12/07/18 08:55; Admin Dose 500 MG; Start 12/01/18 at 21:00 Bupropion HCl (Wellbutrin Xl) 300 mg DAILY PO Last administered on 12/07/18 08:56; Admin Dose 300 MG; Start 12/02/18 at 09:00 Cholecalciferol (Vitamin D) 1,000 unit DAILY PO Last administered on 12/07/18 08:54; Admin Dose 1,000 UNIT; Start 12/02/18 at 09:00 Diclofenac Sodium (Voltaren 1% Gel) 2 gm TID PRN TP PAIN; Start 12/01/18 at 21: 00 Levothyroxine Sodium (Synthroid) 100 mcg BEFORE BREAKFAST PO Last administered on 12/07/18 06:03; Admin Dose 100 MCG; Start 12/02/18 at 07:00 Lisinopril (Zestril) 5 mg DAILY PO Last administered on 12/07/18 08:54; Admin Dose 5 MG; Start 12/02/18 at 09:00 Magnesium Hydroxide (Milk Of Mag) 30 ml DAILY PRN PO CONSTIPATION; Start 12/01/18 at 21:00 Multivitamins Therapeutic (Theragran) 1 tab DAILY PO Last administered on 12/07/18 08:55; Admin Dose 1 TAB; Start 12/02/18 at 09:00 Sodium Biphosphate/ Sodium Phosphate (Fleet Enema) 133 ml DAILY PRN [place] CONSTIPATION; Start 12/01/18 at 21:00 Polyethylene Glycol (Miralax) 17 gm DAILY PO Last administered on 12/07/18 08:54; Admin Dose 17 GM; Start 12/02/18 at 09:00 Senna (Senokot) 1 tab BID PO Last administered on 12/07/18 08:55; Admin Dose 1 TAB; Start 12/01/18 at 21:00 Vitamin B Complex/ Vitamin C (Berocca) 1 cap DAILY PO Last administered on 12/07/18 08:55; Admin Dose 1 CAP; Start 12/02/18 at 09:00 Arformoterol Tartrate (Brovana (Neb)) 2 ml BID RESP THERAPY INH Last administered on 12/07/18 09:15; Admin Dose 2 ML; Start 12/01/18 at 22:30 Fish Oil (Fish Oil) 1,000 mg DAILY PO Last administered on 12/07/18 08:55; Admin Dose 1,000 MG; Start 12/02/18 at 09:00 Ceftriaxone Sodium 50 ml @ 100 mls/hr Q24H IVPB Last administered on 12/06/18 18:06; Admin Dose 100 MLS/HR; Start 12/02/18 at 18:00 IV Flush (NS 3 ml) 3 ml PER PROTOCOL IV ; Start 12/01/18 at 22:00 Ondansetron HCl (Zofran Inj) 4 mg Q6H PRN IV NAUSEA/VOMITING; Start 12/01/18 at 22:00 Docusate Sodium (Colace) 100 mg Q12H PRN PO .CONSTIPATION; Start 12/01/18 at 22:00 Bisacodyl (Dulcolax) 5 mg DAILY PRN PO .CONSTIPATION; Start 12/01/18 at 22:00 Budesonide (Pulmicort (Neb)) 0.5 mg Q12H RESP THERAPY INH Last administered on 12/07/18 09:15; Admin Dose 0.5 MG; Start 12/01/18 at 23:00 Miscellaneous Information (Pending Santyl Order For Wound Care) This patient ruano... PRN PRN XX WOUND CARE; Start 12/02/18 at 00:00 Collagenase (Santyl) 1 applic BID TOP Last administered on 12/07/18 08:56; Admin Dose 1 APPLIC; Start 12/02/18 at 11:30 Ferric Sodium Gluconate Complex 125 mg/Sodium Chloride 110 ml @ 110 mls/hr DAILY@1300 IVPB Last administered on 12/06/18 13:48; Admin Dose 110 MLS/HR; Start 12/04/18 at 13:00; Stop 12/08/18 at 13:59 Lidocaine (Xylocaine 1% (Mpf)) 30 ml ONCE PRN INJ aspiration ; Start 12/04/18 at 17:30 IV Flush (NS 3 ml) 3 ml PER PROTOCOL IV ; Start 12/05/18 at 21:30 Oxycodone HCl (Roxicodone) 15 mg Q4H PRN PO .PAIN Last administered on 12/07/18 11:52; Admin Dose 15 MG; Start 12/05/18 at 21:30 Oxycodone HCl (Roxicodone) 10 mg Q4H PRN PO .PAIN Last administered on 12/07/18 02:36; Admin Dose 10 MG; Start 12/05/18 at 21:30 Oxycodone HCl (Roxicodone) 5 mg Q4H PRN PO .PAIN; Start 12/05/18 at 21:30 Hydromorphone HCl (Dilaudid) 1 mg Q3H PRN IV .BREAKTHROUGH PAIN Last administered on 12/06/18 06:58; Admin Dose 1 MG; Start 12/05/18 at 21:30 Acetaminophen (Tylenol Tab) 1,000 mg Q8 PO Last administered on 12/07/18 05:54; Admin Dose 1,000 MG; Start 12/06/18 at 22:00 Ondansetron HCl (Zofran Inj) 4 mg Q4H PRN IV NAUSEA/VOMITING; Start 12/06/18 at 21:30 Gabapentin (Neurontin) 300 mg QHS PO Last administered on 12/06/18 21:24; Admin Dose 300 MG; Start 12/06/18 at 21:00 Pantoprazole (Protonix Tab) 40 mg DAILY@06 PO Last administered on 12/07/18 05:53; Admin Dose 40 MG; Start 12/07/18 at 06:00 Docusate Sodium (Colace) 200 mg BID PO Last administered on 12/07/18 08:55; Admin Dose 200 MG; Start 12/06/18 at 09:00; Stop 12/09/18 at 08:59 Simethicone (Mylicon) 80 mg TID PRN PO .GAS; Start 12/05/18 at 21:30 Senna/Docusate Sodium (Senokot-S) 2 tab BID PRN PO .CONSTIPATION Last administered on 12/06/18at 08:54; Admin Dose 2 TAB; Start 12/05/18 at 21:30 Magnesium Hydroxide (Milk Of Mag) 30 ml HS PRN PO .CONSTIPATION; Start 12/05/18 at 21:30 Bisacodyl (Dulcolax Supp) 10 mg DAILY PRN [place] .CONSTIPATION; Start 12/05/18 at 21:30 Sodium Biphosphate/ Sodium Phosphate (Fleet Enema) 133 ml DAILY PRN [place] .CONSTIPATION; Start 12/05/18 at 21:30 Diphenhydramine HCl (Benadryl) 25 mg Q4H PRN IV .ITCHING; Start 12/05/18 at 21:30 Naloxone HCl (Narcan) 0.2 mg Q2M PRN IV .RESP RATE; Start 12/05/18 at 21:30 Bethanechol Chloride (Urecholine) 25 mg URINARY CATH D/C PRN PO UNABLE TO VOID; Start 12/05/18 at 21:30 Aspirin (Halfprin) 81 mg BID PO Last administered on 12/07/18at 08:54; Admin Dose 81 MG; Start 12/06/18 at 09:00 Naloxone HCl (Narcan) 0.2 mg Q2M PRN IV .RESP RATE; Start 12/05/18 at 21:30 FAROOQ MATHUR NP Dec 07, 2018 13:14
[2018-12-07] MEDS: SOD FERRIC GLUC COMPLX 125 MG in SOD CHLORIDE 0.9% 100 ML IVPB SCH (14:17)
[2018-12-07 14:29] VITALS: BP 110/60; PULSE 83; RESP 16
[2018-12-07] MEDS: CEFTRIAXONE 1 GM/50 ML (PMX) 50 ML IVPB SCH (19:45)
[2018-12-07 19:50] VITALS: BP 110/62; PULSE 76; RESP 17
[2018-12-07] MEDS: GABAPENTIN 300 MG CAP PO SCH (21:05)
[2018-12-08 02:20] VITALS: BP 104/53; PULSE 75; RESP 18
[2018-12-08] MEDS: oxyCODONE 5 MG TAB PO PRN ×2 (03:49→21:44)
[2018-12-08] MEDS: PANTOPRAZOLE (EC) 40 MG TAB PO SCH (07:01)
[2018-12-08] MEDS: LEVOTHYROXINE 100 MCG TAB PO SCH (07:02)
[2018-12-08] MEDS: ACETAMINOPHEN 500 MG TAB PO SCH ×3 (07:02→21:49)
[2018-12-08 08:42] VITALS: BP 103/53; PULSE 77; RESP 17
--- NOTE | 2018-12-08 08:46 | PN ---
Date/Time of Note Date/Time of Note DATE: 12/08/18 TIME: 08:44 Assessment/Plan Lines/Catheters IV Catheter Type (from Nrsg): Saline Lock Schaeffer in Place (from Nrs): Yes Assessment/Plan Chief Complaint/Hosp Course 73-year-old female with acute hematogenous infection of the right TKA postop day #3 status post I&D and poly-exchange. Preliminary intraoperative cultures are growing strep group B which are the same as her blood cultures. Patient will need to remain admitted until final cultures return for the right knee which will be approximately 5 days from surgery. The patient will need a PICC line as she will need IV antibiotics for 6 weeks. After that she will need p.o. antibiotics for 3-6 months Plan: Pain control Physical therapy Continue IV antibiotics per infectious disease -currently on ceftriaxone 1 g every 24 hours continue to follow-up intraoperative cultures Dietregular DC Hemovac DC Schaeffer Subjective 24 Hr Interval Summary Patient doing well No acute events overnight Pain is well controlled Exam/Review of Systems Vital Signs Vitals Vital Signs Date Temp Pulse Resp B/P (MAP) Pulse Ox O2 O2 Flow FiO2 Time Delivery Rate 12/08/18 98.3 77 17 103/53 94 Room Air 08:42 (70) 12/07/18 21 19:12 Intake and Output 12/07/18 12/07/18 12/08/18 1515:00 23:00 07:00 IntakeIntake Total 500 ml 50 ml OutputOutput Total 600 ml 700 ml BalanceBalance 500 ml -550 ml -700 ml Exam Free Text/Dictation Right lower extremity: Dressing: clean, dry, and intact, no erythema. Hemovac drain clogged Sensation intact to light touch in a sural, saphenous, deep peroneal, superf icial peroneal, medial and lateral plantar nerve distribution. Motor is intact, patient able to dorsiflex and plantarflex ankle and extend and flex great toe. Dorsalis Pedis pulse +2, Brisk capillary refill. Compartments are soft. Calves non-tender to palpation bilaterally. Results Result Diagram: 12/08/18 0509 12/08/18 0509 EMIGDIO LUBIN MD Dec 08, 2018 08:46
[2018-12-08] MEDS: ARFORMOTEROL TARTRATE 15MCG/2 ML AMP INH SCH ×2 (09:00→20:00)
[2018-12-08] MEDS: DOCUSATE SODIUM 100 MG CAP PO SCH ×2 (10:14→21:00)
[2018-12-08] MEDS: FISH OIL 1,000 MG CAP PO SCH (10:14)
[2018-12-08] MEDS: VITAMIN B COMPLEX/VIT C CAP PO SCH (10:14)
[2018-12-08] MEDS: POLYETHYLENE GLYCOL 17 GM PACKET PO SCH (10:15)
[2018-12-08] MEDS: SENNA TAB PO SCH ×2 (10:15→21:00)
[2018-12-08] MEDS: ASPIRIN (EC) 81 MG TAB PO SCH ×2 (10:15→21:45)
[2018-12-08] MEDS: COLLAGENASE 5 GM (UD JAR) TOP SCH ×2 (10:15→21:45)
[2018-12-08] MEDS: CHOLECALCIFEROL 1,000 UNIT TAB PO SCH (10:15)
[2018-12-08] MEDS: BUPROPION (XL) 150 MG TAB PO SCH (10:15)
[2018-12-08] MEDS: ASCORBIC ACID 500 MG TAB PO SCH ×2 (10:15→21:45)
[2018-12-08] MEDS: MULTIVITAMINS THERAPEUTIC TAB PO SCH (10:15)
[2018-12-08] MEDS: LISINOPRIL 5 MG TAB PO SCH (10:16)
--- NOTE | 2018-12-08 11:37 | PN ---
Date/Time of Note Date/Time of Note DATE: 12/08/18 TIME: 11:36 Objective Vitals Vital Signs Date Temp Pulse Resp B/P (MAP) Pulse Ox O2 O2 Flow FiO2 Time Delivery Rate 12/08/18 98.3 77 17 103/53 94 Room Air 08:42 (70) 12/07/18 21 19:12 Intake and Output 12/07/18 12/07/18 12/08/18 1515:00 23:00 07:00 IntakeIntake Total 500 ml 50 ml OutputOutput Total 600 ml 700 ml BalanceBalance 500 ml -550 ml -700 ml Results Result Diagram: 12/08/18 0509 12/08/18 0509 Medications Medications Current Medications Albuterol (Ventolin Hfa) 2 puff Q4H PRN INH WHEEZING AND SOB; Start 12/01/18 at 21:00 Ascorbic Acid (Vitamin C) 500 mg BID PO Last administered on 12/08/18at 10:15; Admin Dose 500 MG; Start 12/01/18 at 21:00 Bupropion HCl (Wellbutrin Xl) 300 mg DAILY PO Last administered on 12/08/18 10:15; Admin Dose 300 MG; Start 12/02/18 at 09:00 Cholecalciferol (Vitamin D) 1,000 unit DAILY PO Last administered on 12/08/18 10:15; Admin Dose 1,000 UNIT; Start 12/02/18 at 09:00 Diclofenac Sodium (Voltaren 1% Gel) 2 gm TID PRN TP PAIN; Start 12/01/18 at 21:00 Levothyroxine Sodium (Synthroid) 100 mcg BEFORE BREAKFAST PO Last administered on 12/08/18at 07:02; Admin Dose 100 MCG; Start 12/02/18 at 07:00 Lisinopril (Zestril) 5 mg DAILY PO Last administered on 12/08/18 10:16; Admin Dose 5 MG; Start 12/02/18 at 09:00 Magnesium Hydroxide (Milk Of Mag) 30 ml DAILY PRN PO CONSTIPATION; Start 12/01/18 at 21:00 Multivitamins Therapeutic (Theragran) 1 tab DAILY PO Last administered on 12/08/18 10:15; Admin Dose 1 TAB; Start 12/02/18 at 09:00 Sodium Biphosphate/ Sodium Phosphate (Fleet Enema) 133 ml DAILY PRN [place] CONSTIPATION; Start 12/01/18 at 21:00 Polyethylene Glycol (Miralax) 17 gm DAILY PO Last administered on 12/08/18 10:15; Admin Dose 17 GM; Start 12/02/18 at 09:00 Senna (Senokot) 1 tab BID PO Last administered on 12/08/18 10:15; Admin Dose 1 TAB; Start 12/01/18 at 21:00 Vitamin B Complex/ Vitamin C (Berocca) 1 cap DAILY PO Last administered on 12/08/18 10:14; Admin Dose 1 CAP; Start 12/02/18 at 09:00 Arformoterol Tartrate (Brovana (Neb)) 2 ml BID RESP THERAPY INH Last administ ered on 12/07/18 09:15; Admin Dose 2 ML; Start 12/01/18 at 22:30 Fish Oil (Fish Oil) 1,000 mg DAILY PO Last administered on 12/08/18 10:14; Admin Dose 1,000 MG; Start 12/02/18 at 09:00 Ceftriaxone Sodium 50 ml @ 100 mls/hr Q24H IVPB Last administered on 12/07/18 19:45; Admin Dose 100 MLS/HR; Start 12/02/18 at 18:00 IV Flush (NS 3 ml) 3 ml PER PROTOCOL IV ; Start 12/01/18 at 22:00 Ondansetron HCl (Zofran Inj) 4 mg Q6H PRN IV NAUSEA/VOMITING; Start 12/01/18 at 22:00 Docusate Sodium (Colace) 100 mg Q12H PRN PO .CONSTIPATION; Start 12/01/18 at 22:00 Bisacodyl (Dulcolax) 5 mg DAILY PRN PO .CONSTIPATION; Start 12/01/18 at 22:00 Budesonide (Pulmicort (Neb)) 0.5 mg Q12H RESP THERAPY INH Last administered on 12/07/18 09:15; Admin Dose 0.5 MG; Start 12/01/18 at 23:00 Miscellaneous Information (Pending Santyl Order For Wound Care) This patient ruano... PRN PRN XX WOUND CARE; Start 12/02/18 at 00:00 Collagenase (Santyl) 1 applic BID TOP Last administered on 12/08/18 10:15; Admin Dose 1 APPLIC; Start 12/02/18 at 11:30 Ferric Sodium Gluconate Complex 125 mg/Sodium Chloride 110 ml @ 110 mls/hr DAILY@1300 IVPB Last administered on 12/07/18 14:17; Admin Dose 110 MLS/HR; Start 12/04/18 at 13:00; Stop 12/08/18 at 13:59 Lidocaine (Xylocaine 1% (Mpf)) 30 ml ONCE PRN INJ aspiration ; Start 12/04/18 at 17:30 IV Flush (NS 3 ml) 3 ml PER PROTOCOL IV ; Start 12/05/18 at 21:30 Oxycodone HCl (Roxicodone) 15 mg Q4H PRN PO .PAIN Last administered on 12/08/18 03:49; Admin Dose 15 MG; Start 12/05/18 at 21:30 Oxycodone HCl (Roxicodone) 10 mg Q4H PRN PO .PAIN Last administered on 12/07/18 02:36; Admin Dose 10 MG; Start 12/05/18 at 21:30 Oxycodone HCl (Roxicodone) 5 mg Q4H PRN PO .PAIN; Start 12/05/18 at 21:30 Hydromorphone HCl (Dilaudid) 1 mg Q3H PRN IV .BREAKTHROUGH PAIN Last admin istered on 12/06/18 06:58; Admin Dose 1 MG; Start 12/05/18 at 21:30 Acetaminophen (Tylenol Tab) 1,000 mg Q8 PO Last administered on 12/08/18 07:02; Admin Dose 1,000 MG; Start 12/06/18 at 22:00 Ondansetron HCl (Zofran Inj) 4 mg Q4H PRN IV NAUSEA/VOMITING; Start 12/06/18 at 21:30 Gabapentin (Neurontin) 300 mg QHS PO Last administered on 12/07/18 21:05; Admin Dose 300 MG; Start 12/06/18 at 21:00 Pantoprazole (Protonix Tab) 40 mg DAILY@06 PO Last administered on 12/08/18 07:01; Admin Dose 40 MG; Start 12/07/18 at 06:00 Docusate Sodium (Colace) 200 mg BID PO Last administered on 12/08/18 10:14; Admin Dose 200 MG; Start 12/06/18 at 09:00; Stop 12/09/18 at 08:59 Simethicone (Mylicon) 80 mg TID PRN PO .GAS; Start 12/05/18 at 21:30 Senna/Docusate Sodium (Senokot-S) 2 tab BID PRN PO .CONSTIPATION Last administered on 12/06/18at 08:54; Admin Dose 2 TAB; Start 12/05/18 at 21:30 Magnesium Hydroxide (Milk Of Mag) 30 ml HS PRN PO .CONSTIPATION; Start 12/05/18 at 21:30 Bisacodyl (Dulcolax Supp) 10 mg DAILY PRN [place] .CONSTIPATION; Start 12/05/18 at 21:30 Sodium Biphosphate/ Sodium Phosphate (Fleet Enema) 133 ml DAILY PRN [place] .CONSTIPATION; Start 12/05/18 at 21:30 Diphenhydramine HCl (Benadryl) 25 mg Q4H PRN IV .ITCHING; Start 12/05/18 at 21:30 Naloxone HCl (Narcan) 0.2 mg Q2M PRN IV .RESP RATE; Start 12/05/18 at 21:30 Bethanechol Chloride (Urecholine) 25 mg URINARY CATH D/C PRN PO UNABLE TO VOID; Start 12/05/18 at 21:30 Aspirin (Halfprin) 81 mg BID PO Last administered on 12/08/18at 10:15; Admin Dose 81 MG; Start 12/06/18 at 09:00 Naloxone HCl (Narcan) 0.2 mg Q2M PRN IV .RESP RATE; Start 12/05/18 at 21:30 VTE Prophylaxis Risk score (from Nsg)>0 risk: 9 SCD applied (from Nsg): Yes Lines/Catheters IV Catheter Type: Schaeffer in Place: No Assessment/Plan Hospital Course S: Patient otherwise feeling well, some knee complaints, O: Constitutional: alert, oriented Head: atraumatic, normocephalic Neck: non-tender, supple Respiratory: clear to auscultation Cardiovascular: regular rate and rhythm Gastrointestinal: S/ NT / ND / +BS Extremities: healing sacral ulcer, dressing around R knee assessment and plan: 73-year-old female brought in by ambulance from home after a ground-level fall #1 mechanical fall: likely 2/2 #2 #2 Septic joint R Knee: -s/p prev RTKA -Patient is status post irrigation and debridement of right knee arthroplasty with wound complaint exchange of right total knee arthroplasty December 05, 2018 -Preoperative cultures negative, but intraoperative cultures growing group B strep. -Per Ortho, she will require IV antibiotics for 6 weeks and p.o. antibiotics for at least 3 to even 6 months. -Will order PICC line #3 chronic spinal disease: - Patient does have a history of significant stenosis of her spine. Lumbar spine and thoracic spine do so signs of stenosis though no acute fractures. - Continue pain management. #4 osteoarthritis: Continue to monitor, pain management #5 urinary tract infection: -Ecoli and lactobacillus -abx per ID #6 Strep Bacteremia : - from septic knee versus sacral ulcer #8 sacral ulcer -no osteo on bone scan, continue wound care Dispo: Orthopedic surgery would like to wait until final cultures are back, will await until final intraoperative cultures are back before discharging to long term facility HARJEET PATINO Dec 08, 2018 11:36
[2018-12-08] MEDS: SOD FERRIC GLUC COMPLX 125 MG in SOD CHLORIDE 0.9% 100 ML IVPB SCH (13:46)
[2018-12-08 14:05] VITALS: BP 100/60; PULSE 80; RESP 17
--- NOTE | 2018-12-08 16:40 | CONS ---
Assessment/Plan Assessment/Plan Hospital Course (Demo Recall) ID PROGRESS NOTE CURRENT ABX: DAY # => Ceftriaxone 12/08/18 0509 12/08/18 0509 POD #3 -> S/P 12/05/18 Right knee infected arthroplasty, status post I&D with poly exchange 24H INTERVAL SUMMARY * Doing OK -- lethargic post pain meds -- pain issues ongoing w/pain meds onboard -- hemovac drain in place * Afebrile today, TMax on SUN 99.8, WBC up mild * s/p NEW PICC LEFT ARM yesterday DIAGNOSTIC IMAGING * Diagnostics: CT of the brain revealed no intracranial hemorrhage or skull fracture. Right lower extremity CT revealed status post right knee arthroplasty with small to moderate joint effusion and synovitis. 2 cm heterogeneous fluid attenuating focus with whitney-dural enhancement in the region of distal vastus intermedius. Small abscess cannot be excluded. Additional rounded fluid focus laterally may be extension of the supra patellar bursa fluid. Please see full report in the chart. Bone scan was negative MICRO/OTHER * URINE CX (-) * 12/01/18 BCX (+) 2/2 BOTTLES BLOOD CULTURE Final Organism 1 STREP AGALACTIAE - (GROUP B) * 12/01/18 URINE CX: URINE CULTURE Final Organism 1 ESCHERICHIA COLI COLONY COUNT >100,000 CFU/ml Organism 2 LACTOBACILLUS SPECIES COLONY COUNT >100,000 CFU/ml * 12/03/18 SACRAL WOUND: WOUND CULTURE Preliminary Organism 1 PROTEUS MIRABILIS QUANTITY SCANT GROWTH Organism 2 STREP AGALACTIAE - (GROUP B) QUANTITY SCANT GROWTH Organism 3 STAPHYLOCOCCUS AUREUS QUANTITY ISOLATED FROM BROTH ONLY P. MIRAB M.I.C. RX --------- --- AMIKACIN <=2 S AMPICILLIN >=32 R CEFEPIME <=1 S CEFOTAXIME I CIPROFLOXACIN >=4 R GENTAMICIN >=16 R LEVOFLOXACIN >=8 R TOBRAMYCIN 8 I TRIMETHOPRIM/SULFAMETHOXAZOLE >=320 R PIPERACILLIN/TAZOBACTAM <=4 S * 12/05/18 RIGHT KNEE CX: TISSUE (BIOPSY) CULTURE Preliminary Organism 1 STREP AGALACTIAE - (GROUP B) QUANTITY 2+ * PHYSICAL EXAMINATION: GENERAL: VSS, NAD HEENT: AT, NC, anicteric, NECK: Supple, CHEST: Equal chest rise bilaterally, without dyspnea on observation HEART: Pulse RRR ABDOMEN: Soft / NT : FC EXTREMITIES: Warm, dry SKIN: No rash, no diaphoresis ID ASSESSMENT 73 yo F admit with: 1. Status post sepsis, present on admission 2. Streptococcal bacteremia 2 to #3 * 2D echo revealed no vegetations 3. Right knee infected arthroplasty, status post I&D with poly exchange 4. Urinary tract infection 5. History of left total knee replacement 6. History of multilevel discectomy and posterior fusion from L1-L3, please see CT in the chart 7. 12/03/18 SACRAL WOUND: WOUND CULTURE Preliminary Organism 1 PROTEUS MIRABILIS QUANTITY SCANT GROWTH Organism 2 STREP AGALACTIAE - (GROUP B) QUANTITY SCANT GROWTH Organism 3 STAPHYLOCOCCUS AUREUS QUANTITY ISOLATED FROM BROTH ONLY (-)MRSA Nares ABX ALLERGIES: None to ABX INVASIVES: PIV CURRENT ABX: DAY # Ceftriaxone ID RECOMMENDATIONS/PLAN: 1. Continue current ABX x 6 weeks for knee - May DC on Ceftriaxone to complete 42 days 2. Local wound care -- GNR Proteus in sacral wound is MDRO, not sure sensitive to Ceftriaxone - treat topically . Consultation Date/Type/Reason Admit Date/Time Dec 01, 2018 at 19:24 Initial Consult Date 12/04/18 Date/Time of Note DATE: 12/08/18 TIME: 16:32 Exam/Review of Systems Exam Vitals Vital Signs Date Temp Pulse Resp B/P (MAP) Pulse Ox O2 O2 Flow FiO2 Time Delivery Rate 12/08/18 98.3 77 17 103/53 94 Room Air 08:42 (70) 12/07/18 21 19:12 Intake and Output 12/07/18 12/07/18 12/08/18 1515:00 23:00 07:00 IntakeIntake Total 500 ml 50 ml OutputOutput Total 600 ml 700 ml BalanceBalance 500 ml -550 ml -700 ml Results Result Diagram: 12/08/18 0509 12/08/18 0509 Results 24hrs Laboratory Tests Test 12/08/18 05:09 White Blood Count 11.2 #H Red Blood Count 3.59 L Hemoglobin 9.5 L Hematocrit 30.7 L Mean Corpuscular Volume 85.5 Mean Corpuscular Hemoglobin 26.5 L Mean Corpuscular Hemoglobin Concent 30.9 L Red Cell Distribution Width 15.9 H Platelet Count 383 Mean Platelet Volume 9.8 Immature Granulocytes % 1.500 H Neutrophils % 76.8 Lymphocytes % 12.2 L Monocytes % 7.0 Eosinophils % 2.1 Basophils % 0.4 Nucleated Red Blood Cells % 0.0 Immature Granulocytes # 0.170 H Neutrophils # 8.6 H Lymphocytes # 1.4 Monocytes # 0.8 Eosinophils # 0.2 Basophils # 0.1 Nucleated Red Blood Cells # 0.0 Sodium Level 139 Potassium Level 3.8 Chloride Level 103 Carbon Dioxide Level 29 Anion Gap 7 Blood Urea Nitrogen 14 Creatinine 0.49 Est Glomerular Filtrat Rate mL/min Glucose Level 154 Calcium Level 8.8 Phosphorus Level 3.3 Magnesium Level 1.8 Medications Medication Current Medications Albuterol (Ventolin Hfa) 2 puff Q4H PRN INH WHEEZING AND SOB; Start 12/01/18 at 21:00 Ascorbic Acid (Vitamin C) 500 mg BID PO Last administered on 12/08/18 10:15; Admin Dose 500 MG; Start 12/01/18 at 21:00 Bupropion HCl (Wellbutrin Xl) 300 mg DAILY PO Last administered on 12/08/18 10:15; Admin Dose 300 MG; Start 12/02/18 at 09:00 Cholecalciferol (Vitamin D) 1,000 unit DAILY PO Last administered on 12/08/18 10:15; Admin Dose 1,000 UNIT; Start 12/02/18 at 09:00 Diclofenac Sodium (Voltaren 1% Gel) 2 gm TID PRN TP PAIN; Start 12/01/18 at 21:00 Levothyroxine Sodium (Synthroid) 100 mcg BEFORE BREAKFAST PO Last administered on 12/08/18 07:02; Admin Dose 100 MCG; Start 12/02/18 at 07:00 Lisinopril (Zestril) 5 mg DAILY PO Last administered on 12/08/18 10:16; Admin Dose 5 MG; Start 12/02/18 at 09:00 Magnesium Hydroxide (Milk Of Mag) 30 ml DAILY PRN PO CONSTIPATION; Start 12/01/18 at 21:00 Multivitamins Therapeutic (Theragran) 1 tab DAILY PO Last administered on 12/08/18 10:15; Admin Dose 1 TAB; Start 12/02/18 at 09:00 Sodium Biphosphate/ Sodium Phosphate (Fleet Enema) 133 ml DAILY PRN [place] CONSTI PATION; Start 12/01/18 at 21:00 Polyethylene Glycol (Miralax) 17 gm DAILY PO Last administered on 12/08/18 10:15; Admin Dose 17 GM; Start 12/02/18 at 09:00 Senna (Senokot) 1 tab BID PO Last administered on 12/08/18 10:15; Admin Dose 1 TAB; Start 12/01/18 at 21:00 Vitamin B Complex/ Vitamin C (Berocca) 1 cap DAILY PO Last administered on 12/08/18 10:14; Admin Dose 1 CAP; Start 12/02/18 at 09:00 Arformoterol Tartrate (Brovana (Neb)) 2 ml BID RESP THERAPY INH Last administered on 12/07/18 09:15; Admin Dose 2 ML; Start 12/01/18 at 22:30 Fish Oil (Fish Oil) 1,000 mg DAILY PO Last administered on 12/08/18 10:14; Admin Dose 1,000 MG; Start 12/02/18 at 09:00 Ceftriaxone Sodium 50 ml @ 100 mls/hr Q24H IVPB Last administered on 12/07/18 19:45; Admin Dose 100 MLS/HR; Start 12/02/18 at 18:00 IV Flush (NS 3 ml) 3 ml PER PROTOCOL IV ; Start 12/01/18 at 22:00 Ondansetron HCl (Zofran Inj) 4 mg Q6H PRN IV NAUSEA/VOMITING; Start 12/01/18 at 22:00 Docusate Sodium (Colace) 100 mg Q12H PRN PO .CONSTIPATION; Start 12/01/18 at 22:00 Bisacodyl (Dulcolax) 5 mg DAILY PRN PO .CONSTIPATION; Start 12/01/18 at 22:00 Budesonide (Pulmicort (Neb)) 0.5 mg Q12H RESP THERAPY INH Last administered on 12/07/18 09:15; Admin Dose 0.5 MG; Start 12/01/18 at 23:00 Miscellaneous Information (Pending Santyl Order For Wound Care) This patient ruano... PRN PRN XX WOUND CARE; Start 12/02/18 at 00:00 Collagenase (Santyl) 1 applic BID TOP Last administered on 12/08/18 10:15; Admin Dose 1 APPLIC; Start 12/02/18 at 11:30 Lidocaine (Xylocaine 1% (Mpf)) 30 ml ONCE PRN INJ aspiration ; Start 12/04/18 at 17:30 IV Flush (NS 3 ml) 3 ml PER PROTOCOL IV ; Start 12/05/18 at 21:30 Oxycodone HCl (Roxicodone) 15 mg Q4H PRN PO .PAIN Last administered on 12/08/18 03:49; Admin Dose 15 MG; Start 12/05/18 at 21:30 Oxycodone HCl (Roxicodone) 10 mg Q4H PRN PO .PAIN Last administered on 12/07/18 02:36; Admin Dose 10 MG; Start 12/05/18 at 21:30 Oxycodone HCl (Roxicodone) 5 mg Q4H PRN PO .PAIN; Start 12/05/18 at 21:30 Hydromorphone HCl (Dilaudid) 1 mg Q3H PRN IV .BREAKTHROUGH PAIN Last administered on 12/06/18 06:58; Admin Dose 1 MG; Start 12/05/18 at 21:30 Acetaminophen (Tylenol Tab) 1,000 mg Q8 PO Last administered on 12/08/18 13:46; Admin Dose 1,000 MG; Start 12/06/18 at 22:00 Ondansetron HCl (Zofran Inj) 4 mg Q4H PRN IV NAUSEA/VOMITING; Start 12/06/18 at 21:30 Gabapentin (Neurontin) 300 mg QHS PO Last administered on 12/07/18 21:05; Admin Dose 300 MG; Start 12/06/18 at 21:00 Pantoprazole (Protonix Tab) 40 mg DAILY@06 PO Last administered on 12/08/18 07:01; Admin Dose 40 MG; Start 12/07/18 at 06:00 Docusate Sodium (Colace) 200 mg BID PO Last administered on 12/08/18 10:14; Admin Dose 200 MG; Start 12/06/18 at 09:00; Stop 12/09/18 at 08:59 Simethicone (Mylicon) 80 mg TID PRN PO .GAS; Start 12/05/18 at 21:30 Senna/Docusate Sodium (Senokot-S) 2 tab BID PRN PO .CONSTIPATION Last admini stered on 3/29/19at 08:54; Admin Dose 2 TAB; Start 12/05/18 at 21:30 Magnesium Hydroxide (Milk Of Mag) 30 ml HS PRN PO .CONSTIPATION; Start 12/05/18 at 21:30 Bisacodyl (Dulcolax Supp) 10 mg DAILY PRN NE .CONSTIPATION; Start 12/05/18 at 21:30 Sodium Biphosphate/ Sodium Phosphate (Fleet Enema) 133 ml DAILY PRN NE .CONSTIPATION; Start 12/05/18 at 21:30 Diphenhydramine HCl (Benadryl) 25 mg Q4H PRN IV .ITCHING; Start 12/05/18 at 21:30 Naloxone HCl (Narcan) 0.2 mg Q2M PRN IV .RESP RATE; Start 12/05/18 at 21:30 Bethanechol Chloride (Urecholine) 25 mg URINARY CATH D/C PRN PO UNABLE TO VOID; Start 12/05/18 at 21:30 Aspirin (Halfprin) 81 mg BID PO Last administered on 12/08/18at 10:15; Admin Dose 81 MG; Start 12/06/18 at 09:00 Naloxone HCl (Narcan) 0.2 mg Q2M PRN IV .RESP RATE; Start 12/05/18 at 21:30 FAROOQ MATHUR NP Dec 08, 2018 16:40
[2018-12-08] MEDS: CEFTRIAXONE 1 GM/50 ML (PMX) 50 ML IVPB SCH (18:05)
[2018-12-08 19:10] VITALS: BP 118/64; PULSE 83; RESP 18
[2018-12-08] MEDS: GABAPENTIN 300 MG CAP PO SCH (21:45)
[2018-12-09 01:57] VITALS: BP 109/54; PULSE 89; RESP 18
[2018-12-09] MEDS: ACETAMINOPHEN 500 MG TAB PO SCH ×4 (06:00→22:00)
[2018-12-09] MEDS: LEVOTHYROXINE 100 MCG TAB PO SCH (06:07)
[2018-12-09] MEDS: PANTOPRAZOLE (EC) 40 MG TAB PO SCH (06:07)
[2018-12-09 07:47] VITALS: BP 116/62; PULSE 82; RESP 18
[2018-12-09] MEDS: BUDESONIDE (NEB) 0.5MG/2ML AMP INH SCH ×3 (08:11→20:00)
--- NOTE | 2018-12-09 08:27 | PN ---
Date/Time of Note Date/Time of Note DATE: 12/09/18 TIME: 08:26 Assessment/Plan Lines/Catheters IV Catheter Type (from Nrs): PICC Line Schaeffer in Place (from Nrs): No Assessment/Plan Chief Complaint/Hosp Course 73-year-old female with acute hematogenous infection of the right TKA postop day #4 status post I&D and poly-exchange. Preliminary intraoperative cultures are growing strep group B which are the same as her blood cultures. Patient will need to remain admitted until final cultures return for the right knee which will be approximately 5 days from surgery. The patient will need a PICC line as she will need IV antibiotics for 6 weeks. After that she will need p.o. antibiotics for 3-6 months Plan: Pain control Physical therapy Continue IV antibiotics per infectious disease -currently on ceftriaxone 1 g every 24 hours continue to follow-up intraoperative cultures Dietregular Subjective 24 Hr Interval Summary Patient doing well No acute events overnight Pain is well controlled Exam/Review of Systems Vital Signs Vitals Vital Signs Date Temp Pulse Resp B/P (MAP) Pulse Ox O2 O2 Flow FiO2 Time Delivery Rate 12/09/18 98.2 82 18 116/62 92 Room Air 07:47 (80) 12/07/18 21 19:12 Intake and Output 12/08/18 12/08/18 12/09/18 1515:00 23:00 07:00 IntakeIntake Total 590 ml 50 ml 450 ml OutputOutput Total 400 ml 100 ml BalanceBalance 190 ml 50 ml 350 ml Exam Free Text/Dictation Right lower extremity: Dressing: clean, dry, and intact, no erythema Sensation intact to light touch in a sural, saphenous, deep peroneal, superficial peroneal, medial and lateral plantar nerve distribution. Motor is intact, patient able to dorsiflex and plantarflex ankle and extend and flex great toe. Dorsalis Pedis pulse +2, Brisk capillary refill. Compartments are soft. Calves non-tender to palpation bilaterally. Results Result Diagram: 12/09/18 0447 12/09/18 0447 EMIGDIO LUBIN MD Dec 09, 2018 08:27
[2018-12-09] MEDS: POLYETHYLENE GLYCOL 17 GM PACKET PO SCH (09:00)
[2018-12-09] MEDS: ARFORMOTEROL TARTRATE 15MCG/2 ML AMP INH SCH ×2 (09:00→20:00)
[2018-12-09] MEDS: SENNA TAB PO SCH ×2 (09:00→21:00)
[2018-12-09] MEDS: CHOLECALCIFEROL 1,000 UNIT TAB PO SCH (09:49)
[2018-12-09] MEDS: BUPROPION (XL) 150 MG TAB PO SCH (09:49)
[2018-12-09] MEDS: FISH OIL 1,000 MG CAP PO SCH (09:49)
[2018-12-09] MEDS: VITAMIN B COMPLEX/VIT C CAP PO SCH (09:49)
[2018-12-09] MEDS: COLLAGENASE 5 GM (UD JAR) TOP SCH ×2 (09:50→21:54)
[2018-12-09] MEDS: MULTIVITAMINS THERAPEUTIC TAB PO SCH (09:50)
[2018-12-09] MEDS: LISINOPRIL 5 MG TAB PO SCH (09:50)
[2018-12-09] MEDS: ASCORBIC ACID 500 MG TAB PO SCH ×2 (09:50→21:54)
[2018-12-09] MEDS: ASPIRIN (EC) 81 MG TAB PO SCH ×2 (09:50→21:55)
[2018-12-09] MEDS: oxyCODONE 5 MG TAB PO PRN ×2 (13:50→23:59)
[2018-12-09 14:32] VITALS: BP 120/64; PULSE 80; RESP 18
--- NOTE | 2018-12-09 14:43 | CONS ---
Assessment/Plan Assessment/Plan Hospital Course (Demo Recall) Patient is alert, denies pain, no fevers Microbiology: Blood culture on admission grew strep, urine culture grew E. coli, MRSA swab negative, repeat blood cultures negative Diagnostics: CT of the brain revealed no intracranial hemorrhage or skull fracture. Right lower extremity CT revealed status post right knee arthroplasty with small to moderate joint effusion and synovitis. 2 cm heterogeneous fluid attenuating focus with whitney-dural enhancement in the region of distal vastus intermedius. Small abscess cannot be excluded. Additional rounded fluid focus laterally may be extension of the supra patellar bursa fluid. Please see full report in the chart. Bone scan was negative 2D echo revealed no vegetations Antimicrobials: Rocephin Physical examination: This is well-developed well-nourished elderly woman who is alert in no distress. Head atraumatic normocephalic neck is supple. Chest rise symmetrical breath sounds clear. Heart: S1-S2. Abdomen soft, bowel tones present. Extremities with right knee erythema and swelling Assessment: 1. Status post sepsis, present on admission 2. Streptococcal bacteremia 2 to 3. 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 Urinary tract infection 5. History of left total knee replacement 6. History of multilevel discectomy and posterior fusion from L1-L3, please see CT in the chart Plan: Stable, continue on IV Rocephin till January 18, f/u with ortho Consultation Date/Type/Reason Admit Date/Time Dec 01, 2018 at 19:24 Initial Consult Date Type of Consult id Date/Time of Note DATE: 12/09/18 TIME: 14:40 Exam/Review of Systems Exam Vitals Vital Signs Date Temp Pulse Resp B/P (MAP) Pulse Ox O2 O2 Flow FiO2 Time Delivery Rate 12/09/18 98.0 80 18 120/64 90 Room Air 14:32 (82) 12/07/18 21 19:12 Intake and Output 12/08/18 12/08/18 12/09/18 1515:00 23:00 07:00 IntakeIntake Total 590 ml 50 ml 450 ml OutputOutput Total 400 ml 100 ml BalanceBalance 190 ml 50 ml 350 ml Results Result Diagram: 12/09/18 0447 12/09/18 0447 Results 24hrs Laboratory Tests Test 12/09/18 04:47 White Blood Count 8.3 # Red Blood Count 3.61 L Hemoglobin 9.5 L Hematocrit 31.5 L Mean Corpuscular Volume 87.3 Mean Corpuscular Hemoglobin 26.3 L Mean Corpuscular Hemoglobin Concent 30.2 L Red Cell Distribution Width 16.2 H Platelet Count 439 H Mean Platelet Volume 9.4 Immature Granulocytes % 1.600 H Neutrophils % 63.4 Lymphocytes % 21.2 Monocytes % 9.6 Eosinophils % 3.6 Basophils % 0.6 Nucleated Red Blood Cells % 0.0 Immature Granulocytes # 0.130 H Neutrophils # 5.3 Lymphocytes # 1.8 Monocytes # 0.8 Eosinophils # 0.3 Basophils # 0.1 Nucleated Red Blood Cells # 0.0 Sodium Level 142 Potassium Level 3.8 Chloride Level 104 Carbon Dioxide Level 30 Anion Gap 8 Blood Urea Nitrogen 11 Creatinine 0.47 Est Glomerular Filtrat Rate mL/min Glucose Level 101 # Calcium Level 9.1 Phosphorus Level 3.7 Magnesium Level 1.8 Medications Medication Current Medications Albuterol (Ventolin Hfa) 2 puff Q4H PRN INH WHEEZING AND SOB; Start 12/01/18 at 21:00 Ascorbic Acid (Vitamin C) 500 mg BID PO Last administered on 12/09/18 09:50; Admin Dose 500 MG; Start 12/01/18 at 21:00 Bupropion HCl (Wellbutrin Xl) 300 mg DAILY PO Last administered on 12/09/18 09:49; Admin Dose 300 MG; Start 12/02/18 at 09:00 Cholecalciferol (Vitamin D) 1,000 unit DAILY PO Last administered on 12/09/18 09:49; Admin Dose 1,000 UNIT; Start 12/02/18 at 09:00 Diclofenac Sodium (Voltaren 1% Gel) 2 gm TID PRN TP PAIN; Start 12/01/18 at 21:00 Levothyroxine Sodium (Synthroid) 100 mcg BEFORE BREAKFAST PO Last administered on 12/09/18 06:07; Admin Dose 100 MCG; Start 12/02/18 at 07:00 Lisinopril (Zestril) 5 mg DAILY PO Last administered on 12/09/18 09:50; Admin Dose 5 MG; Start 12/02/18 at 09:00 Magnesium Hydroxide (Milk Of Mag) 30 ml DAILY PRN PO CONSTIPATION; Start 12/01/18 at 21:00 Multivitamins Therapeutic (Theragran) 1 tab DAILY PO Last administered on 12/09/18 09:50; Admin Dose 1 TAB; Start 12/02/18 at 09:00 Sodium Biphosphate/ Sodium Phosphate (Fleet Enema) 133 ml DAILY PRN [place] CONSTIPATION; Start 12/01/18 at 21:00 Polyethylene Glycol (Miralax) 17 gm DAILY PO Last administered on 12/08/18 10:15; Admin Dose 17 GM; Start 12/02/18 at 09:00 Senna (Senokot) 1 tab BID PO Last administered on 12/08/18 10:15; Admin Dose 1 TAB; Start 12/01/18 at 21:00 Vitamin B Complex/ Vitamin C (Berocca) 1 cap DAILY PO Last administered on 12/09/18 09:49; Admin Dose 1 CAP; Start 12/02/18 at 09:00 Arformoterol Tartrate (Brovana (Neb)) 2 ml BID RESP THERAPY INH Last administered on 12/07/18 09:15; Admin Dose 2 ML; Start 12/01/18 at 22:30 Fish Oil (Fish Oil) 1,000 mg DAILY PO Last administered on 12/09/18 09:49; Admin Dose 1,000 MG; Start 12/02/18 at 09:00 Ceftriaxone Sodium 50 ml @ 100 mls/hr Q24H IVPB Last administered on 12/08/18 18:05; Admin Dose 100 MLS/HR; Start 12/02/18 at 18:00 IV Flush (NS 3 ml) 3 ml PER PROTOCOL IV ; Start 12/01/18 at 22:00 Ondansetron HCl (Zofran Inj) 4 mg Q6H PRN IV NAUSEA/VOMITING; Start 12/01/18 at 22:00 Docusate Sodium (Colace) 100 mg Q12H PRN PO .CONSTIPATION; Start 12/01/18 at 22:00 Bisacodyl (Dulcolax) 5 mg DAILY PRN PO .CONSTIPATION; Start 12/01/18 at 22:00 Budesonide (Pulmicort (Neb)) 0.5 mg Q12H RESP THERAPY INH Last administered on 12/09/18 14:04; Admin Dose 0.5 MG; Start 12/01/18 at 23:00 Miscellaneous Information (Pending Santyl Order For Wound Care) This patient ruano... PRN PRN XX WOUND CARE; Start 12/02/18 at 00:00 Collagenase (Santyl) 1 applic BID TOP Last administered on 12/09/18at 09:50; Admin Dose 1 APPLIC; Start 12/02/18 at 11:30 Lidocaine (Xylocaine 1% (Mpf)) 30 ml ONCE PRN INJ aspiration ; Start 12/04/18 at 17:30 IV Flush (NS 3 ml) 3 ml PER PROTOCOL IV ; Start 12/05/18 at 21:30 Oxycodone HCl (Roxicodone) 15 mg Q4H PRN PO .PAIN Last administered on 12/09/18at 13:50; Admin Dose 15 MG; Start 12/05/18 at 21:30 Oxycodone HCl (Roxicodone) 10 mg Q4H PRN PO .PAIN Last administered on 12/07/18at 02:36; Admin Dose 10 MG; Start 12/05/18 at 21:30 Oxycodone HCl (Roxicodone) 5 mg Q4H PRN PO .PAIN; Start 12/05/18 at 21:30 Hydromorphone HCl (Dilaudid) 1 mg Q3H PRN IV .BREAKTHROUGH PAIN Last administered on 12/06/18at 06:58; Admin Dose 1 MG; Start 12/05/18 at 21:30 Acetaminophen (Tylenol Tab) 1,000 mg Q8 PO Last administered on 12/09/18at 14:10; Admin Dose 1,000 MG; Start 12/06/18 at 22:00 Ondansetron HCl (Zofran Inj) 4 mg Q4H PRN IV NAUSEA/VOMITING; Start 12/06/18 at 21:30 Gabapentin (Neurontin) 300 mg QHS PO Last administered on 12/08/18at 21:45; Admin Dose 300 MG; Start 12/06/18 at 21:00 Pantoprazole (Protonix Tab) 40 mg DAILY@06 PO Last administered on 12/09/18 06:07; Admin Dose 40 MG; Start 12/07/18 at 06:00 Simethicone (Mylicon) 80 mg TID PRN PO .GAS; Start 12/05/18 at 21:30 Senna/Docusate Sodium (Senokot-S) 2 tab BID PRN PO .CONSTIPATION Last administered on 12/06/18at 08:54; Admin Dose 2 TAB; Start 12/05/18 at 21:30 Magnesium Hydroxide (Milk Of Mag) 30 ml HS PRN PO .CONSTIPATION; Start 12/05/18 at 21:30 Bisacodyl (Dulcolax Supp) 10 mg DAILY PRN [place] .CONSTIPATION; Start 12/05/18 at 21:30 Sodium Biphosphate/ Sodium Phosphate (Fleet Enema) 133 ml DAILY PRN [place] .CONSTIPATION; Start 12/05/18 at 21:30 Diphenhydramine HCl (Benadryl) 25 mg Q4H PRN IV .ITCHING; Start 12/05/18 at 21:30 Naloxone HCl (Narcan) 0.2 mg Q2M PRN IV .RESP RATE; Start 12/05/18 at 21:30 Bethanechol Chloride (Urecholine) 25 mg URINARY CATH D/C PRN PO UNABLE TO VOID; Start 12/05/18 at 21:30 Aspirin (Halfprin) 81 mg BID PO Last administered on 12/09/18at 09:50; Admin Dose 81 MG; Start 12/06/18 at 09:00 Naloxone HCl (Narcan) 0.2 mg Q2M PRN IV .RESP RATE; Start 12/05/18 at 21:30 OZZIE SOLOMON NP Dec 09, 2018 14:43
--- NOTE | 2018-12-09 16:36 | PN ---
Date/Time of Note Date/Time of Note DATE: 12/09/18 TIME: 16:33 Assessment/Plan VTE Prophylaxis Risk score (from Ns)>0 risk: 7 SCD applied (from Ns): Yes Pharmacological prophylaxis: other Lines/Catheters IV Catheter Type (from Nrsg): PICC Line Central line still needed: Yes Urinary Cath still in place: No Assessment/Plan Assessment/Plan 1. Mechanical fall secondary to septic R Knee - PT/OT 2. Septic R knee joint - Ortho on board and recommendations appreciated. Awaiting final intraoperative culture results. Continue IV antibiotics until 01/18 then will need to continue PO antibiotics for 3-6 months - pain control - PT/OT - s/p prev RTKA - Patient is status post irrigation and debridement of right knee arthroplasty with wound complaint exchange of right total knee arthroplasty December 05, 2018 3. Chronic spinal disease: - Patient does have a history of significant stenosis of her spine. Lumbar spine and thoracic spine do so signs of stenosis though no acute fractures. - Continue pain management. 4. osteoarthritis - pain control 5. urinary tract infection: - Ecoli and lactobacillus - abx per ID 6. Strep Bacteremia - continue current antibiotics 7. Disposition - Awaiting final intraoperative cultures - SNF placement once family agreeable to accepting facility Result Diagram: 12/09/18 0447 12/09/18 0447 Results 24hrs Laboratory Tests Test 12/09/18 04:47 White Blood Count 8.3 # Red Blood Count 3.61 L Hemoglobin 9.5 L Hematocrit 31.5 L Mean Corpuscular Volume 87.3 Mean Corpuscular Hemoglobin 26.3 L Mean Corpuscular Hemoglobin Concent 30.2 L Red Cell Distribution Width 16.2 H Platelet Count 439 H Mean Platelet Volume 9.4 Immature Granulocytes % 1.600 H Neutrophils % 63.4 Lymphocytes % 21.2 Monocytes % 9.6 Eosinophils % 3.6 Basophils % 0.6 Nucleated Red Blood Cells % 0.0 Immature Granulocytes # 0.130 H Neutrophils # 5.3 Lymphocytes # 1.8 Monocytes # 0.8 Eosinophils # 0.3 Basophils # 0.1 Nucleated Red Blood Cells # 0.0 Sodium Level 142 Potassium Level 3.8 Chloride Level 104 Carbon Dioxide Level 30 Anion Gap 8 Blood Urea Nitrogen 11 Creatinine 0.47 Est Glomerular Filtrat Rate mL/min Glucose Level 101 # Calcium Level 9.1 Phosphorus Level 3.7 Magnesium Level 1.8 Subjective 24 Hr Interval Summary Free Text/Dictation Patient states shes been afraid to work with PT due to fear of falling again. Son at bedside and discussed SNF placement and would not like her to return to previous SNF given she developed bed sores and UTI at the facility. Exam/Review of Systems Exam Vitals Vital Signs Date Temp Pulse Resp B/P (MAP) Pulse Ox O2 O2 Flow FiO2 Time Delivery Rate 12/09/18 36.7 15:00 12/09/18 80 18 120/64 90 Room Air 14:32 (82) 12/09/18 21 14:06 Intake and Output 12/08/18 12/08/18 12/09/18 1515:00 23:00 07:00 IntakeIntake Total 590 ml 50 ml 450 ml OutputOutput Total 400 ml 100 ml BalanceBalance 190 ml 50 ml 350 ml Exam General: Patient is laying in bed and answers questions appropriately Neck: Supple, nontender, midline Respiratory: Clear to auscultation bilaterally. no wheezing or rhonchi Cardiovascular: regular rate and rhythm, no obvious murmurs Gastrointestinal: soft, non-tender to palpation, bowel sounds heard. Ext: Moves all extremities spontaneously Skin: No new skin lesions, surgical incision site R knee CDI Results Results 24hrs Laboratory Tests Test 12/09/18 04:47 White Blood Count 8.3 # Red Blood Count 3.61 L Hemoglobin 9.5 L Hematocrit 31.5 L Mean Corpuscular Volume 87.3 Mean Corpuscular Hemoglobin 26.3 L Mean Corpuscular Hemoglobin Concent 30.2 L Red Cell Distribution Width 16.2 H Platelet Count 439 H Mean Platelet Volume 9.4 Immature Granulocytes % 1.600 H Neutrophils % 63.4 Lymphocytes % 21.2 Monocytes % 9.6 Eosinophils % 3.6 Basophils % 0.6 Nucleated Red Blood Cells % 0.0 Immature Granulocytes # 0.130 H Neutrophils # 5.3 Lymphocytes # 1.8 Monocytes # 0.8 Eosinophils # 0.3 Basophils # 0.1 Nucleated Red Blood Cells # 0.0 Sodium Level 142 Potassium Level 3.8 Chloride Level 104 Carbon Dioxide Level 30 Anion Gap 8 Blood Urea Nitrogen 11 Creatinine 0.47 Est Glomerular Filtrat Rate mL/min Glucose Level 101 # Calcium Level 9.1 Phosphorus Level 3.7 Magnesium Level 1.8 Medications Medication Current Medications Albuterol (Ventolin Hfa) 2 puff Q4H PRN INH WHEEZING AND SOB; Start 12/01/18 at 21:00 Ascorbic Acid (Vitamin C) 500 mg BID PO Last administered on 12/09/18 09:50; Admin Dose 500 MG; Start 12/01/18 at 21:00 Bupropion HCl (Wellbutrin Xl) 300 mg DAILY PO Last administered on 12/09/18 09:49; Admin Dose 300 MG; Start 12/02/18 at 09:00 Cholecalciferol (Vitamin D) 1,000 unit DAILY PO Last administered on 12/09/18 09:49; Admin Dose 1,000 UNIT; Start 12/02/18 at 09:00 Diclofenac Sodium (Voltaren 1% Gel) 2 gm TID PRN TP PAIN; Start 12/01/18 at 21:00 Levothyroxine Sodium (Synthroid) 100 mcg BEFORE BREAKFAST PO Last administered on 12/09/18 06:07; Admin Dose 100 MCG; Start 12/02/18 at 07:00 Lisinopril (Zestril) 5 mg DAILY PO Last administered on 12/09/18 09:50; Admin Dose 5 MG; Start 12/02/18 at 09:00 Magnesium Hydroxide (Milk Of Mag) 30 ml DAILY PRN PO CONSTIPATION; Start 12/01/18 at 21:00 Multivitamins Therapeutic (Theragran) 1 tab DAILY PO Last administered on 12/09/18 09:50; Admin Dose 1 TAB; Start 12/02/18 at 09:00 Sodium Biphosphate/ Sodium Phosphate (Fleet Enema) 133 ml DAILY PRN [place] CON STIPATION; Start 12/01/18 at 21:00 Polyethylene Glycol (Miralax) 17 gm DAILY PO Last administered on 12/08/18 10:15; Admin Dose 17 GM; Start 12/02/18 at 09:00 Senna (Senokot) 1 tab BID PO Last administered on 12/08/18 10:15; Admin Dose 1 TAB; Start 12/01/18 at 21:00 Vitamin B Complex/ Vitamin C (Berocca) 1 cap DAILY PO Last administered on 12/09/18 09:49; Admin Dose 1 CAP; Start 12/02/18 at 09:00 Arformoterol Tartrate (Brovana (Neb)) 2 ml BID RESP THERAPY INH Last administered on 12/07/18 09:15; Admin Dose 2 ML; Start 12/01/18 at 22:30 Fish Oil (Fish Oil) 1,000 mg DAILY PO Last administered on 12/09/18 09:49; Admin Dose 1,000 MG; Start 12/02/18 at 09:00 Ceftriaxone Sodium 50 ml @ 100 mls/hr Q24H IVPB Last administered on 12/08/18 18:05; Admin Dose 100 MLS/HR; Start 12/02/18 at 18:00 IV Flush (NS 3 ml) 3 ml PER PROTOCOL IV ; Start 12/01/18 at 22:00 Ondansetron HCl (Zofran Inj) 4 mg Q6H PRN IV NAUSEA/VOMITING; Start 12/01/18 at 22:00 Docusate Sodium (Colace) 100 mg Q12H PRN PO .CONSTIPATION; Start 12/01/18 at 22:00 Bisacodyl (Dulcolax) 5 mg DAILY PRN PO .CONSTIPATION; Start 12/01/18 at 22:00 Budesonide (Pulmicort (Neb)) 0.5 mg Q12H RESP THERAPY INH Last administered on 12/09/18 14:04; Admin Dose 0.5 MG; Start 12/01/18 at 23:00 Miscellaneous Information (Pending Santyl Order For Wound Care) This patient ruano... PRN PRN XX WOUND CARE; Start 12/02/18 at 00:00 Collagenase (Santyl) 1 applic BID TOP Last administered on 12/09/18 09:50; Admin Dose 1 APPLIC; Start 12/02/18 at 11:30 Lidocaine (Xylocaine 1% (Mpf)) 30 ml ONCE PRN INJ aspiration ; Start 12/04/18 at 17:30 IV Flush (NS 3 ml) 3 ml PER PROTOCOL IV ; Start 12/05/18 at 21:30 Oxycodone HCl (Roxicodone) 15 mg Q4H PRN PO .PAIN Last administered on 12/09/18 13:50; Admin Dose 15 MG; Start 12/05/18 at 21:30 Oxycodone HCl (Roxicodone) 10 mg Q4H PRN PO .PAIN Last administered on 12/07/18 02:36; Admin Dose 10 MG; Start 12/05/18 at 21:30 Oxycodone HCl (Roxicodone) 5 mg Q4H PRN PO .PAIN; Start 12/05/18 at 21:30 Hydromorphone HCl (Dilaudid) 1 mg Q3H PRN IV .BREAKTHROUGH PAIN Last administered on 12/06/18at 06:58; Admin Dose 1 MG; Start 12/05/18 at 21:30 Acetaminophen (Tylenol Tab) 1,000 mg Q8 PO Last administered on 12/09/18at 14:10; Admin Dose 1,000 MG; Start 12/06/18 at 22:00 Ondansetron HCl (Zofran Inj) 4 mg Q4H PRN IV NAUSEA/VOMITING; Start 12/06/18 at 21:30 Gabapentin (Neurontin) 300 mg QHS PO Last administered on 12/08/18at 21:45; Admin Dose 300 MG; Start 12/06/18 at 21:00 Pantoprazole (Protonix Tab) 40 mg DAILY@06 PO Last administered on 12/09/18at 06:07; Admin Dose 40 MG; Start 12/07/18 at 06:00 Simethicone (Mylicon) 80 mg TID PRN PO .GAS; Start 12/05/18 at 21:30 Senna/Docusate Sodium (Senokot-S) 2 tab BID PRN PO .CONSTIPATION Last administered on 12/06/18at 08:54; Admin Dose 2 TAB; Start 12/05/18 at 21:30 Magnesium Hydroxide (Milk Of Mag) 30 ml HS PRN PO .CONSTIPATION; Start 12/05/18 at 21:30 Bisacodyl (Dulcolax Supp) 10 mg DAILY PRN [place] .CONSTIPATION; Start 12/05/18 at 21:30 Sodium Biphosphate/ Sodium Phosphate (Fleet Enema) 133 ml DAILY PRN [place] .CONSTIPATION; Start 12/05/18 at 21:30 Diphenhydramine HCl (Benadryl) 25 mg Q4H PRN IV .ITCHING; Start 12/05/18 at 21:30 Naloxone HCl (Narcan) 0.2 mg Q2M PRN IV .RESP RATE; Start 12/05/18 at 21:30 Bethanechol Chloride (Urecholine) 25 mg URINARY CATH D/C PRN PO UNABLE TO VOID; Start 12/05/18 at 21:30 Aspirin (Halfprin) 81 mg BID PO Last administered on 12/09/18at 09:50; Admin Dose 81 MG; Start 12/06/18 at 09:00 Naloxone HCl (Narcan) 0.2 mg Q2M PRN IV .RESP RATE; Start 12/05/18 at 21:30 BALTAZAR BARAJAS MD Dec 09, 2018 16:36
[2018-12-09] MEDS: CEFTRIAXONE 1 GM/50 ML (PMX) 50 ML IVPB SCH (17:51)
[2018-12-09 19:20] VITALS: BP 108/59; PULSE 77; RESP 16
[2018-12-09] MEDS: GABAPENTIN 300 MG CAP PO SCH (21:54)
[2018-12-10 01:51] VITALS: BP 116/66; PULSE 76; RESP 18
[2018-12-10] MEDS: oxyCODONE 5 MG TAB PO PRN ×3 (04:52→22:58)
[2018-12-10] MEDS: ACETAMINOPHEN 500 MG TAB PO SCH ×3 (06:00→21:46)
[2018-12-10] MEDS: LEVOTHYROXINE 100 MCG TAB PO SCH (06:54)
[2018-12-10] MEDS: PANTOPRAZOLE (EC) 40 MG TAB PO SCH (06:54)
[2018-12-10] MEDS: BUDESONIDE (NEB) 0.5MG/2ML AMP INH SCH ×2 (07:31→20:00)
[2018-12-10 07:52] VITALS: BP 105/74; PULSE 83; RESP 18
[2018-12-10] MEDS: POLYETHYLENE GLYCOL 17 GM PACKET PO SCH (09:00)
[2018-12-10] MEDS: LISINOPRIL 5 MG TAB PO SCH (09:00)
[2018-12-10] MEDS: ARFORMOTEROL TARTRATE 15MCG/2 ML AMP INH SCH ×2 (09:00→20:00)
[2018-12-10] MEDS: VITAMIN B COMPLEX/VIT C CAP PO SCH (09:05)
[2018-12-10] MEDS: FISH OIL 1,000 MG CAP PO SCH (09:05)
[2018-12-10] MEDS: CHOLECALCIFEROL 1,000 UNIT TAB PO SCH (09:05)
[2018-12-10] MEDS: SENNA TAB PO SCH ×2 (09:06→21:00)
[2018-12-10] MEDS: MULTIVITAMINS THERAPEUTIC TAB PO SCH (09:06)
[2018-12-10] MEDS: BUPROPION (XL) 150 MG TAB PO SCH (09:06)
[2018-12-10] MEDS: ASCORBIC ACID 500 MG TAB PO SCH ×2 (09:06→21:36)
[2018-12-10] MEDS: ASPIRIN (EC) 81 MG TAB PO SCH ×2 (09:07→21:36)
[2018-12-10] MEDS: COLLAGENASE 5 GM (UD JAR) TOP SCH ×2 (09:14→21:36)
--- NOTE | 2018-12-10 11:51 | CONS ---
Assessment/Plan Assessment/Plan Hospital Course (Demo Recall) All noted, no fevers, mad Microbiology: Blood culture on admission grew strep, urine culture grew E. coli, MRSA swab negative, repeat blood cultures negative Diagnostics: CT of the brain revealed no intracranial hemorrhage or skull fracture. Right lower extremity CT revealed status post right knee arthroplasty with small to moderate joint effusion and synovitis. 2 cm heterogeneous fluid attenuating focus with whitney-dural enhancement in the region of distal vastus intermedius. Small abscess cannot be excluded. Additional rounded fluid focus laterally may be extension of the supra patellar bursa fluid. Please see full report in the chart. Bone scan was negative 2D echo revealed no vegetations Antimicrobials: Rocephin Physical examination: This is well-developed well-nourished elderly woman who is alert in no distress. Head atraumatic normocephalic neck is supple. Chest rise symmetrical breath sounds clear. Heart: S1-S2. Abdomen soft, bowel tones present. Extremities with right knee erythema and swelling Assessment: 1. Status post sepsis, present on admission 2. Streptococcal bacteremia 2 to 3. 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 Urinary tract infection 5. History of left total knee replacement 6. History of multilevel discectomy and posterior fusion from L1-L3, please see CT in the chart Plan: Remains stable, continue PT, continue on IV Rocephin till January 18, f/u with ortho Consultation Date/Type/Reason Admit Date/Time Dec 01, 2018 at 19:24 Initial Consult Date Type of Consult id Date/Time of Note DATE: 12/10/18 TIME: 11:49 Exam/Review of Systems Exam Vitals Vital Signs Date Temp Pulse Resp B/P (MAP) Pulse Ox O2 O2 Flow FiO2 Time Delivery Rate 12/10/18 98.0 83 18 105/74 95 Room Air 07:52 (84) 12/09/18 21 20:52 Intake and Output 12/09/18 12/09/18 12/10/18 1515:00 23:00 07:00 IntakeIntake Total 240 ml 150 ml 630 ml OutputOutput Total 550 ml 500 ml BalanceBalance -310 ml -350 ml 630 ml Results Result Diagram: 12/10/18 0447 12/09/18 0447 Results 24hrs Laboratory Tests Test 12/10/18 04:47 White Blood Count 8.4 Red Blood Count 3.63 L Hemoglobin 9.8 L Hematocrit 31.3 L Mean Corpuscular Volume 86.2 Mean Corpuscular Hemoglobin 27.0 L Mean Corpuscular Hemoglobin Concent 31.3 L Red Cell Distribution Width 16.9 H Platelet Count 452 H Mean Platelet Volume 9.7 Immature Granulocytes % 1.600 H Neutrophils % 59.5 Lymphocytes % 26.6 Monocytes % 9.2 Eosinophils % 2.4 Basophils % 0.7 Nucleated Red Blood Cells % 0.0 Immature Granulocytes # 0.130 H Neutrophils # 5.0 Lymphocytes # 2.2 Monocytes # 0.8 Eosinophils # 0.2 Basophils # 0.1 Nucleated Red Blood Cells # 0.0 Medications Medication Current Medications Albuterol (Ventolin Hfa) 2 puff Q4H PRN INH WHEEZING AND SOB; Start 12/01/18 at 21:00 Ascorbic Acid (Vitamin C) 500 mg BID PO Last administered on 12/10/18 09:06; Admin Dose 500 MG; Start 12/01/18 at 21:00 Bupropion HCl (Wellbutrin Xl) 300 mg DAILY PO Last administered on 12/10/18 09:06; Admin Dose 300 MG; Start 12/02/18 at 09:00 Cholecalciferol (Vitamin D) 1,000 unit DAILY PO Last administered on 12/10/18 09:05; Admin Dose 1,000 UNIT; Start 12/02/18 at 09:00 Diclofenac Sodium (Voltaren 1% Gel) 2 gm TID PRN TP PAIN; Start 12/01/18 at 21:00 Levothyroxine Sodium (Synthroid) 100 mcg BEFORE BREAKFAST PO Last administered on 12/10/18 06:54; Admin Dose 100 MCG; Start 12/02/18 at 07:00 Lisinopril (Zestril) 5 mg DAILY PO Last administered on 12/09/18 09:50; Admin Dose 5 MG; Start 12/02/18 at 09:00 Magnesium Hydroxide (Milk Of Mag) 30 ml DAILY PRN PO CONSTIPATION; Start 12/01/18 at 21:00 Multivitamins Therapeutic (Theragran) 1 tab DAILY PO Last administered on 12/10/18 09:06; Admin Dose 1 TAB; Start 12/02/18 at 09:00 Sodium Biphosphate/ Sodium Phosphate (Fleet Enema) 133 ml DAILY PRN [place] CONSTIPATION; Start 12/01/18 at 21:00 Polyethylene Glycol (Miralax) 17 gm DAILY PO Last administered on 12/08/18 10:15; Admin Dose 17 GM; Start 12/02/18 at 09:00 Senna (Senokot) 1 tab BID PO Last administered on 12/10/18 09:06; Admin Dose 1 TAB; Start 12/01/18 at 21:00 Vitamin B Complex/ Vitamin C (Berocca) 1 cap DAILY PO Last administered on 12/10/18 09:05; Admin Dose 1 CAP; Start 12/02/18 at 09:00 Arformoterol Tartrate (Brovana (Neb)) 2 ml BID RESP THERAPY INH Last admini stered on 12/07/18 09:15; Admin Dose 2 ML; Start 12/01/18 at 22:30 Fish Oil (Fish Oil) 1,000 mg DAILY PO Last administered on 12/10/18 09:05; Admin Dose 1,000 MG; Start 12/02/18 at 09:00 Ceftriaxone Sodium 50 ml @ 100 mls/hr Q24H IVPB Last administered on 12/09/18 17:51; Admin Dose 100 MLS/HR; Start 12/02/18 at 18:00 IV Flush (NS 3 ml) 3 ml PER PROTOCOL IV ; Start 12/01/18 at 22:00 Ondansetron HCl (Zofran Inj) 4 mg Q6H PRN IV NAUSEA/VOMITING; Start 12/01/18 at 22:00 Docusate Sodium (Colace) 100 mg Q12H PRN PO .CONSTIPATION; Start 12/01/18 at 22:00 Bisacodyl (Dulcolax) 5 mg DAILY PRN PO .CONSTIPATION; Start 12/01/18 at 22:00 Budesonide (Pulmicort (Neb)) 0.5 mg Q12H RESP THERAPY INH Last administered on 12/09/18 14:04; Admin Dose 0.5 MG; Start 12/01/18 at 23:00 Miscellaneous Information (Pending Santyl Order For Wound Care) This patient ruano... PRN PRN XX WOUND CARE; Start 12/02/18 at 00:00 Collagenase (Santyl) 1 applic BID TOP Last administered on 4/2/19at 09:14; Admin Dose 1 APPLIC; Start 12/02/18 at 11:30 Lidocaine (Xylocaine 1% (Mpf)) 30 ml ONCE PRN INJ aspiration ; Start 12/04/18 at 17:30 IV Flush (NS 3 ml) 3 ml PER PROTOCOL IV ; Start 12/05/18 at 21:30 Oxycodone HCl (Roxicodone) 15 mg Q4H PRN PO .PAIN Last administered on 12/10/18 10:12; Admin Dose 15 MG; Start 12/05/18 at 21:30 Oxycodone HCl (Roxicodone) 10 mg Q4H PRN PO .PAIN Last administered on 12/07/18 02:36; Admin Dose 10 MG; Start 12/05/18 at 21:30 Oxycodone HCl (Roxicodone) 5 mg Q4H PRN PO .PAIN; Start 12/05/18 at 21:30 Hydromorphone HCl (Dilaudid) 1 mg Q3H PRN IV .BREAKTHROUGH PAIN Last administer ed on 12/06/18 06:58; Admin Dose 1 MG; Start 12/05/18 at 21:30 Acetaminophen (Tylenol Tab) 1,000 mg Q8 PO Last administered on 12/09/18 14:10; Admin Dose 1,000 MG; Start 12/06/18 at 22:00 Ondansetron HCl (Zofran Inj) 4 mg Q4H PRN IV NAUSEA/VOMITING; Start 12/06/18 at 21:30 Gabapentin (Neurontin) 300 mg QHS PO Last administered on 12/09/18 21:54; Admin Dose 300 MG; Start 12/06/18 at 21:00 Pantoprazole (Protonix Tab) 40 mg DAILY@06 PO Last administered on 12/10/18 06:54; Admin Dose 40 MG; Start 12/07/18 at 06:00 Simethicone (Mylicon) 80 mg TID PRN PO .GAS; Start 12/05/18 at 21:30 Senna/Docusate Sodium (Senokot-S) 2 tab BID PRN PO .CONSTIPATION Last administered on 12/06/18 08:54; Admin Dose 2 TAB; Start 12/05/18 at 21:30 Magnesium Hydroxide (Milk Of Mag) 30 ml HS PRN PO .CONSTIPATION; Start 12/05/18 at 21:30 Bisacodyl (Dulcolax Supp) 10 mg DAILY PRN [place] .CONSTIPATION; Start 12/05/18 at 21:30 Sodium Biphosphate/ Sodium Phosphate (Fleet Enema) 133 ml DAILY PRN SC .CONSTIPATION; Start 12/05/18 at 21:30 Diphenhydramine HCl (Benadryl) 25 mg Q4H PRN IV .ITCHING; Start 12/05/18 at 21:30 Naloxone HCl (Narcan) 0.2 mg Q2M PRN IV .RESP RATE; Start 12/05/18 at 21:30 Bethanechol Chloride (Urecholine) 25 mg URINARY CATH D/C PRN PO UNABLE TO VOID; Start 12/05/18 at 21:30 Aspirin (Halfprin) 81 mg BID PO Last administered on 12/10/18at 09:07; Admin Dose 81 MG; Start 12/06/18 at 09:00 Naloxone HCl (Narcan) 0.2 mg Q2M PRN IV .RESP RATE; Start 12/05/18 at 21:30 OZZIE SOLOMON NP Dec 10, 2018 11:51
--- NOTE | 2018-12-10 14:21 | PN ---
Date/Time of Note Date/Time of Note DATE: 12/10/18 TIME: 14:20 Assessment/Plan Lines/Catheters IV Catheter Type (from Nrs): PICC Line Schaeffer in Place (from Nrs): No Assessment/Plan Chief Complaint/Hosp Course 73-year-old female with acute hematogenous infection of the right TKA postop day #5 status post I&D and poly-exchange. Preliminary intraoperative cultures are growing strep group B which are the same as her blood cultures. Patient will need to remain admitted until final cultures return for the right knee which will be approximately 5 days from surgery. The patient will need a PICC line as she will need IV antibiotics for 6 weeks. After that she will need p.o. antibiotics for 3-6 months Plan: Pain control Physical therapy Continue IV antibiotics per infectious disease -currently on ceftriaxone 1 g every 24 hours continue to follow-up intraoperative cultures Dietregular Discharge planning: If accepted it would be optimal for the patient to be discharged to the acute rehab unit. Okay to discharge from orthopedic standpoint. Will need to follow-up with me in 2 weeks unless she is in the acute rehab unit at that time and I will see her there. Subjective 24 Hr Interval Summary Patient doing well No acute events overnight Pain is well controlled Exam/Review of Systems Vital Signs Vitals Vital Signs Date Temp Pulse Resp B/P (MAP) Pulse Ox O2 O2 Flow FiO2 Time Delivery Rate 12/10/18 98.0 83 18 105/74 95 Room Air 07:52 (84) 12/09/18 21 20:52 Intake and Output 12/09/18 12/09/18 12/10/18 1515:00 23:00 07:00 IntakeIntake Total 240 ml 150 ml 630 ml OutputOutput Total 550 ml 500 ml BalanceBalance -310 ml -350 ml 630 ml Exam Free Text/Dictation Right lower extremity: Dressing: clean, dry, and intact, no erythema Sensation intact to light touch in a sural, saphenous, deep peroneal, superficial peroneal, medial and lateral plantar nerve distribution. Motor is intact, patient able to dorsiflex and plantarflex ankle and extend and flex great toe. Dorsalis Pedis pulse +2, Brisk capillary refill. Compartments are soft. Calves non-tender to palpation bilaterally. Results Result Diagram: 12/10/18 0447 12/09/18 0447 EMIGDIO LUBIN MD Dec 10, 2018 14:21
[2018-12-10 14:22] VITALS: BP 118/78; PULSE 78; RESP 18
--- NOTE | 2018-12-10 15:51 | PN ---
Date/Time of Note Date/Time of Note DATE: 12/10/18 TIME: 15:48 Assessment/Plan VTE Prophylaxis Risk score (from Nsg)>0 risk: 8 SCD applied (from Nsg): Yes Pharmacological prophylaxis: other Lines/Catheters IV Catheter Type (from Nrsg): PICC Line Central line still needed: Yes Urinary Cath still in place: No Assessment/Plan Assessment/Plan 1. Mechanical fall secondary to septic R Knee - PT/OT - ARU evaluation requested 2. Septic R knee joint - Ortho on board and recommendations appreciated. Cleared for discharge and will need follow up if not discharged to ARU. Continue IV antibiotics until 01/18 then will need to continue PO antibiotics for 3-6 months - pain control - s/p prev RTKA - Patient is status post irrigation and debridement of right knee arthroplasty with wound complaint exchange of right total knee arthroplasty December 05, 2018 3. Chronic spinal disease - Patient does have a history of significant stenosis of her spine. Lumbar spine and thoracic spine do so signs of stenosis though no acute fractures. - Continue pain management. 4. osteoarthritis - pain control 5. urinary tract infection: - Ecoli and lactobacillus - abx per ID 6. Strep Bacteremia - continue current antibiotics 7. Disposition - ARU evaluation pending Result Diagram: 12/10/1844612/09/187 Results 24hrs Laboratory Tests Test 12/10/18 04:47 White Blood Count 8.4 Red Blood Count 3.63 L Hemoglobin 9.8 L Hematocrit 31.3 L Mean Corpuscular Volume 86.2 Mean Corpuscular Hemoglobin 27.0 L Mean Corpuscular Hemoglobin Concent 31.3 L Red Cell Distribution Width 16.9 H Platelet Count 452 H Mean Platelet Volume 9.7 Immature Granulocytes % 1.600 H Neutrophils % 59.5 Lymphocytes % 26.6 Monocytes % 9.2 Eosinophils % 2.4 Basophils % 0.7 Nucleated Red Blood Cells % 0.0 Immature Granulocytes # 0.130 H Neutrophils # 5.0 Lymphocytes # 2.2 Monocytes # 0.8 Eosinophils # 0.2 Basophils # 0.1 Nucleated Red Blood Cells # 0.0 Subjective 24 Hr Interval Summary Free Text/Dictation Patient walked with physical therapy this am and felt more stable. Discussed transitioning to ARU and will be evaluated. Spoke with son over the phone whose concern is premature discharge from any facility she is discharged to. Exam/Review of Systems Exam Vitals Vital Signs Date Temp Pulse Resp B/P (MAP) Pulse Ox O2 O2 Flow FiO2 Time Delivery Rate 12/10/18 98.0 78 18 118/78 94 Room Air 14:22 (91) 12/09/18 21 20:52 Intake and Output 12/09/18 12/09/18 12/10/18 1515:00 23:00 07:00 IntakeIntake Total 240 ml 150 ml 630 ml OutputOutput Total 550 ml 500 ml BalanceBalance -310 ml -350 ml 630 ml Exam General: Patient is laying in bed and answers questions appropriately Neck: Supple, nontender, midline Respiratory: Clear to auscultation bilaterally. no wheezing or rhonchi Cardiovascular: regular rate and rhythm, no obvious murmurs Gastrointestinal: soft, non-tender to palpation, bowel sounds heard. Ext: Moves all extremities spontaneously Skin: No new skin lesions, surgical incision site R knee CDI Results Results 24hrs Laboratory Tests Test 12/10/18 04:47 White Blood Count 8.4 Red Blood Count 3.63 L Hemoglobin 9.8 L Hematocrit 31.3 L Mean Corpuscular Volume 86.2 Mean Corpuscular Hemoglobin 27.0 L Mean Corpuscular Hemoglobin Concent 31.3 L Red Cell Distribution Width 16.9 H Platelet Count 452 H Mean Platelet Volume 9.7 Immature Granulocytes % 1.600 H Neutrophils % 59.5 Lymphocytes % 26.6 Monocytes % 9.2 Eosinophils % 2.4 Basophils % 0.7 Nucleated Red Blood Cells % 0.0 Immature Granulocytes # 0.130 H Neutrophils # 5.0 Lymphocytes # 2.2 Monocytes # 0.8 Eosinophils # 0.2 Basophils # 0.1 Nucleated Red Blood Cells # 0.0 Medications Medication Current Medications Albuterol (Ventolin Hfa) 2 puff Q4H PRN INH WHEEZING AND SOB; Start 12/01/18 at 21:00 Ascorbic Acid (Vitamin C) 500 mg BID PO Last administered on 12/10/18at 09:06; Admin Dose 500 MG; Start 12/01/18 at 21:00 Bupropion HCl (Wellbutrin Xl) 300 mg DAILY PO Last administered on 12/10/18at 09:06; Admin Dose 300 MG; Start 12/02/18 at 09:00 Cholecalciferol (Vitamin D) 1,000 unit DAILY PO Last administered on 12/10/18 09:05; Admin Dose 1,000 UNIT; Start 12/02/18 at 09:00 Diclofenac Sodium (Voltaren 1% Gel) 2 gm TID PRN TP PAIN; Start 12/01/18 at 21:00 Levothyroxine Sodium (Synthroid) 100 mcg BEFORE BREAKFAST PO Last administered on 12/10/18 06:54; Admin Dose 100 MCG; Start 12/02/18 at 07:00 Lisinopril (Zestril) 5 mg DAILY PO Last administered on 12/09/18 09:50; Admin Dose 5 MG; Start 12/02/18 at 09:00 Magnesium Hydroxide (Milk Of Mag) 30 ml DAILY PRN PO CONSTIPATION; Start 12/01/18 at 21:00 Multivitamins Therapeutic (Theragran) 1 tab DAILY PO Last administered on 12/10/18 09:06; Admin Dose 1 TAB; Start 12/02/18 at 09:00 Sodium Biphosphate/ Sodium Phosphate (Fleet Enema) 133 ml DAILY PRN [place] CONSTIPATION; Start 12/01/18 at 21:00 Polyethylene Glycol (Miralax) 17 gm DAILY PO Last administered on 12/08/18 10:15; Admin Dose 17 GM; Start 12/02/18 at 09:00 Senna (Senokot) 1 tab BID PO Last administered on 12/10/18 09:06; Admin Dose 1 TAB; Start 12/01/18 at 21:00 Vitamin B Complex/ Vitamin C (Berocca) 1 cap DAILY PO Last administered on 12/10/18 09:05; Admin Dose 1 CAP; Start 12/02/18 at 09:00 Arformoterol Tartrate (Brovana (Neb)) 2 ml BID RESP THERAPY INH Last administered on 12/07/18 09:15; Admin Dose 2 ML; Start 12/01/18 at 22:30 Fish Oil (Fish Oil) 1,000 mg DAILY PO Last administered on 12/10/18 09:05; Admin Dose 1,000 MG; Start 12/02/18 at 09:00 Ceftriaxone Sodium 50 ml @ 100 mls/hr Q24H IVPB Last administered on 12/09/18 17:51; Admin Dose 100 MLS/HR; Start 12/02/18 at 18:00 IV Flush (NS 3 ml) 3 ml PER PROTOCOL IV ; Start 12/01/18 at 22:00 Ondansetron HCl (Zofran Inj) 4 mg Q6H PRN IV NAUSEA/VOMITING; Start 12/01/18 at 22:00 Docusate Sodium (Colace) 100 mg Q12H PRN PO .CONSTIPATION; Start 12/01/18 at 22:00 Bisacodyl (Dulcolax) 5 mg DAILY PRN PO .CONSTIPATION; Start 12/01/18 at 22:00 Budesonide (Pulmicort (Neb)) 0.5 mg Q12H RESP THERAPY INH Last administered on 12/09/18 14:04; Admin Dose 0.5 MG; Start 12/01/18 at 23:00 Miscellaneous Information (Pending Santyl Order For Wound Care) This patient ruano. .. PRN PRN XX WOUND CARE; Start 12/02/18 at 00:00 Collagenase (Santyl) 1 applic BID TOP Last administered on 12/10/18 09:14; Admin Dose 1 APPLIC; Start 12/02/18 at 11:30 Lidocaine (Xylocaine 1% (Mpf)) 30 ml ONCE PRN INJ aspiration ; Start 12/04/18 at 17:30 IV Flush (NS 3 ml) 3 ml PER PROTOCOL IV ; Start 12/05/18 at 21:30 Oxycodone HCl (Roxicodone) 15 mg Q4H PRN PO .PAIN Last administered on 12/10/18 10:12; Admin Dose 15 MG; Start 12/05/18 at 21:30 Oxycodone HCl (Roxicodone) 10 mg Q4H PRN PO .PAIN Last administered on 12/07/18 02:36; Admin Dose 10 MG; Start 12/05/18 at 21:30 Oxycodone HCl (Roxicodone) 5 mg Q4H PRN PO .PAIN; Start 12/05/18 at 21:30 Hydromorphone HCl (Dilaudid) 1 mg Q3H PRN IV .BREAKTHROUGH PAIN Last administered on 12/06/18 06:58; Admin Dose 1 MG; Start 12/05/18 at 21:30 Acetaminophen (Tylenol Tab) 1,000 mg Q8 PO Last administered on 12/10/18 13:58; Admin Dose 1,000 MG; Start 12/06/18 at 22:00 Ondansetron HCl (Zofran Inj) 4 mg Q4H PRN IV NAUSEA/VOMITING; Start 12/06/18 at 21:30 Gabapentin (Neurontin) 300 mg QHS PO Last administered on 12/09/18at 21:54; Admin Dose 300 MG; Start 12/06/18 at 21:00 Pantoprazole (Protonix Tab) 40 mg DAILY@06 PO Last administered on 12/10/18at 06:54; Admin Dose 40 MG; Start 12/07/18 at 06:00 Simethicone (Mylicon) 80 mg TID PRN PO .GAS; Start 12/05/18 at 21:30 Senna/Docusate Sodium (Senokot-S) 2 tab BID PRN PO .CONSTIPATION Last administered on 12/06/18at 08:54; Admin Dose 2 TAB; Start 12/05/18 at 21:30 Magnesium Hydroxide (Milk Of Mag) 30 ml HS PRN PO .CONSTIPATION; Start 12/05/18 at 21:30 Bisacodyl (Dulcolax Supp) 10 mg DAILY PRN [place] .CONSTIPATION; Start 12/05/18 at 21:30 Sodium Biphosphate/ Sodium Phosphate (Fleet Enema) 133 ml DAILY PRN [place] .CONSTIPATION; Start 12/05/18 at 21:30 Diphenhydramine HCl (Benadryl) 25 mg Q4H PRN IV .ITCHING; Start 12/05/18 at 21:30 Naloxone HCl (Narcan) 0.2 mg Q2M PRN IV .RESP RATE; Start 12/05/18 at 21:30 Bethanechol Chloride (Urecholine) 25 mg URINARY CATH D/C PRN PO UNABLE TO VOID; Start 12/05/18 at 21:30 Aspirin (Halfprin) 81 mg BID PO Last administered on 12/10/18at 09:07; Admin Dose 81 MG; Start 12/06/18 at 09:00 Naloxone HCl (Narcan) 0.2 mg Q2M PRN IV .RESP RATE; Start 12/05/18 at 21:30 BALTAZAR BARAJAS MD Dec 10, 2018 15:51
[2018-12-10] MEDS: CEFTRIAXONE 1 GM/50 ML (PMX) 50 ML IVPB SCH (18:27)
[2018-12-10 20:44] VITALS: BP 110/63; PULSE 71; RESP 19
[2018-12-10] MEDS: GABAPENTIN 300 MG CAP PO SCH (21:36)
[2018-12-11 02:30] VITALS: BP 132/63; PULSE 77; RESP 18
[2018-12-11] MEDS: ACETAMINOPHEN 500 MG TAB PO SCH ×3 (06:00→22:05)
[2018-12-11] MEDS: PANTOPRAZOLE (EC) 40 MG TAB PO SCH (07:16)
[2018-12-11] MEDS: LEVOTHYROXINE 100 MCG TAB PO SCH (07:16)
[2018-12-11 07:42] VITALS: BP 106/69; PULSE 71; RESP 17
[2018-12-11] MEDS: BUDESONIDE (NEB) 0.5MG/2ML AMP INH SCH ×2 (08:00→20:00)
[2018-12-11] MEDS: COLLAGENASE 5 GM (UD JAR) TOP SCH ×2 (08:06→22:05)
[2018-12-11] MEDS: LISINOPRIL 5 MG TAB PO SCH (08:06)
[2018-12-11] MEDS: VITAMIN B COMPLEX/VIT C CAP PO SCH (08:07)
[2018-12-11] MEDS: ASCORBIC ACID 500 MG TAB PO SCH ×2 (08:07→21:08)
[2018-12-11] MEDS: BUPROPION (XL) 150 MG TAB PO SCH (08:07)
[2018-12-11] MEDS: FISH OIL 1,000 MG CAP PO SCH (08:07)
[2018-12-11] MEDS: MULTIVITAMINS THERAPEUTIC TAB PO SCH (08:07)
[2018-12-11] MEDS: ASPIRIN (EC) 81 MG TAB PO SCH ×2 (08:07→21:08)
[2018-12-11] MEDS: CHOLECALCIFEROL 1,000 UNIT TAB PO SCH (08:07)
[2018-12-11] MEDS: SENNA TAB PO SCH ×2 (08:07→21:08)
[2018-12-11] MEDS: POLYETHYLENE GLYCOL 17 GM PACKET PO SCH (08:08)
[2018-12-11] MEDS: ARFORMOTEROL TARTRATE 15MCG/2 ML AMP INH SCH ×2 (08:24→20:00)
[2018-12-11] MEDS: oxyCODONE 5 MG TAB PO PRN (10:13)
[2018-12-11] MEDS ORDERED: VANCOMYCIN IV PER PHARMACY XX SCH (11:30)
--- NOTE | 2018-12-11 11:36 | CONS ---
Assessment/Plan Assessment/Plan Hospital Course (Demo Recall) All noted, no fevers, nad Microbiology: Blood culture on admission grew strep, urine culture grew E. coli, MRSA swab negative, repeat blood cultures negative. Sacral wound cx + MRSA/Proteus/Strep Diagnostics: CT of the brain revealed no intracranial hemorrhage or skull fracture. Right lower extremity CT revealed status post right knee arthroplasty with small to moderate joint effusion and synovitis. 2 cm heterogeneous fluid attenuating focus with whitney-dural enhancement in the region of distal vastus intermedius. Small abscess cannot be excluded. Additional rounded fluid focus laterally may be extension of the supra patellar bursa fluid. Please see full report in the chart. Bone scan was negative 2D echo revealed no vegetations Antimicrobials: Rocephin Vanco Physical examination: This is well-developed well-nourished elderly woman who is alert in no distress. Head atraumatic normocephalic neck is supple. Chest rise symmetrical breath sounds clear. Heart: S1-S2. Abdomen soft, bowel tones present. Extremities with right knee erythema and swelling Assessment: 1. Status post sepsis, present on admission 2. Streptococcal bacteremia 2 to 3. 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 Urinary tract infection 5. History of left total knee replacement 6. 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, will change Rocephin to Cefepime to cover Proteus, keep on current abx for 2 weeks, then change to IV Rocephin for 6 weeks till January 18 Consultation Date/Type/Reason Admit Date/Time Dec 01, 2018 at 19:24 Initial Consult Date Type of Consult id Date/Time of Note DATE: 12/11/18 TIME: 11:30 Exam/Review of Systems Exam Vitals Vital Signs Date Temp Pulse Resp B/P (MAP) Pulse Ox O2 O2 Flow FiO2 Time Delivery Rate 12/11/18 98.2 71 17 106/69 98 Room Air 07:42 (81) 12/09/18 21 20:52 Intake and Output 12/10/18 12/10/18 12/11/18 1515:00 23:00 07:00 IntakeIntake Total 560 ml 1070 ml 360 ml OutputOutput Total 550 ml BalanceBalance 560 ml 1070 ml -190 ml Results Result Diagram: 12/10/18 0447 12/09/187 Medications Medication Current Medications Albuterol (Ventolin Hfa) 2 puff Q4H PRN INH WHEEZING AND SOB; Start 12/01/18 at 21:00 Ascorbic Acid (Vitamin C) 500 mg BID PO Last administered on 12/11/18 08:07; Admin Dose 500 MG; Start 12/01/18 at 21:00 Bupropion HCl (Wellbutrin Xl) 300 mg DAILY PO Last administered on 12/11/18 08:07; Admin Dose 300 MG; Start 12/02/18 at 09:00 Cholecalciferol (Vitamin D) 1,000 unit DAILY PO Last administered on 12/11/18 08:07; Admin Dose 1,000 UNIT; Start 12/02/18 at 09:00 Diclofenac Sodium (Voltaren 1% Gel) 2 gm TID PRN TP PAIN; Start 12/01/18 at 21:00 Levothyroxine Sodium (Synthroid) 100 mcg BEFORE BREAKFAST PO Last administered on 12/11/18 07:16; Admin Dose 100 MCG; Start 12/02/18 at 07:00 Lisinopril (Zestril) 5 mg DAILY PO Last administered on 12/09/18 09:50; Admin Dose 5 MG; Start 12/02/18 at 09:00 Magnesium Hydroxide (Milk Of Mag) 30 ml DAILY PRN PO CONSTIPATION; Start 12/01/18 at 21:00 Multivitamins Therapeutic (Theragran) 1 tab DAILY PO Last administered on 12/11/18 08:07; Admin Dose 1 TAB; Start 12/02/18 at 09:00 Sodium Biphosphate/ Sodium Phosphate (Fleet Enema) 133 ml DAILY PRN [place] CONSTIPATION; Start 12/01/18 at 21:00 Polyethylene Glycol (Miralax) 17 gm DAILY PO Last administered on 12/08/18 10:15; Admin Dose 17 GM; Start 12/02/18 at 09:00 Senna (Senokot) 1 tab BID PO Last administered on 12/11/18 08:07; Admin Dose 1 TAB; Start 12/01/18 at 21:00 Vitamin B Complex/ Vitamin C (Berocca) 1 cap DAILY PO Last administered on 12/11/18 08:07; Admin Dose 1 CAP; Start 12/02/18 at 09:00 Arformoterol Tartrate (Brovana (Neb)) 2 ml BID RESP THERAPY INH Last administe red on 12/07/18 09:15; Admin Dose 2 ML; Start 12/01/18 at 22:30 Fish Oil (Fish Oil) 1,000 mg DAILY PO Last administered on 12/11/18 08:07; Admin Dose 1,000 MG; Start 12/02/18 at 09:00 Ceftriaxone Sodium 50 ml @ 100 mls/hr Q24H IVPB Last administered on 12/10/18 18:27; Admin Dose 100 MLS/HR; Start 12/02/18 at 18:00 IV Flush (NS 3 ml) 3 ml PER PROTOCOL IV ; Start 12/01/18 at 22:00 Ondansetron HCl (Zofran Inj) 4 mg Q6H PRN IV NAUSEA/VOMITING; Start 12/01/18 at 22:00 Docusate Sodium (Colace) 100 mg Q12H PRN PO .CONSTIPATION; Start 12/01/18 at 22:00 Bisacodyl (Dulcolax) 5 mg DAILY PRN PO .CONSTIPATION; Start 12/01/18 at 22:00 Budesonide (Pulmicort (Neb)) 0.5 mg Q12H RESP THERAPY INH Last administered on 12/09/18 14:04; Admin Dose 0.5 MG; Start 12/01/18 at 23:00 Miscellaneous Information (Pending Santyl Order For Wound Care) This patient ruano... PRN PRN XX WOUND CARE; Start 12/02/18 at 00:00 Collagenase (Santyl) 1 applic BID TOP Last administered on 12/11/18 08:06; Admin Dose 1 APPLIC; Start 12/02/18 at 11:30 Lidocaine (Xylocaine 1% (Mpf)) 30 ml ONCE PRN INJ aspiration ; Start 12/04/18 at 17:30 IV Flush (NS 3 ml) 3 ml PER PROTOCOL IV ; Start 12/05/18 at 21:30 Oxycodone HCl (Roxicodone) 15 mg Q4H PRN PO .PAIN Last administered on 12/11/18 10:13; Admin Dose 15 MG; Start 12/05/18 at 21:30 Oxycodone HCl (Roxicodone) 10 mg Q4H PRN PO .PAIN Last administered on 12/07/18 02:36; Admin Dose 10 MG; Start 12/05/18 at 21:30 Oxycodone HCl (Roxicodone) 5 mg Q4H PRN PO .PAIN; Start 12/05/18 at 21:30 Hydromorphone HCl (Dilaudid) 1 mg Q3H PRN IV .BREAKTHROUGH PAIN Last administered on 12/06/18 06:58; Admin Dose 1 MG; Start 12/05/18 at 21:30 Acetaminophen (Tylenol Tab) 1,000 mg Q8 PO Last administered on 12/10/18 13:58; Admin Dose 1,000 MG; Start 12/06/18 at 22:00 Ondansetron HCl (Zofran Inj) 4 mg Q4H PRN IV NAUSEA/VOMITING; Start 12/06/18 at 21:30 Gabapentin (Neurontin) 300 mg QHS PO Last administered on 12/10/18 21:36; Admin Dose 300 MG; Start 12/06/18 at 21:00 Pantoprazole (Protonix Tab) 40 mg DAILY@06 PO Last administered on 12/11/18 07:16; Admin Dose 40 MG; Start 12/07/18 at 06:00 Simethicone (Mylicon) 80 mg TID PRN PO .GAS; Start 12/05/18 at 21:30 Senna/Docusate Sodium (Senokot-S) 2 tab BID PRN PO .CONSTIPATION Last administered on 12/06/18 08:54; Admin Dose 2 TAB; Start 12/05/18 at 21:30 Magnesium Hydroxide (Milk Of Mag) 30 ml HS PRN PO .CONSTIPATION; Start 12/05/18 at 21:30 Bisacodyl (Dulcolax Supp) 10 mg DAILY PRN [place] .CONSTIPATION; Start 12/05/18 at 21:30 Sodium Biphosphate/ Sodium Phosphate (Fleet Enema) 133 ml DAILY PRN [place] .CONSTIPATION; Start 12/05/18 at 21:30 Diphenhydramine HCl (Benadryl) 25 mg Q4H PRN IV .ITCHING; Start 12/05/18 at 21: 30 Naloxone HCl (Narcan) 0.2 mg Q2M PRN IV .RESP RATE; Start 12/05/18 at 21:30 Bethanechol Chloride (Urecholine) 25 mg URINARY CATH D/C PRN PO UNABLE TO VOID; Start 12/05/18 at 21:30 Aspirin (Halfprin) 81 mg BID PO Last administered on 12/11/18at 08:07; Admin Dose 81 MG; Start 12/06/18 at 09:00 Naloxone HCl (Narcan) 0.2 mg Q2M PRN IV .RESP RATE; Start 12/05/18 at 21:30 Vancomycin HCl (Vanco Iv Per Pharmacy) VANCOMYCIN PER PHARMACY PER PROTOCOL XX ; Start 12/11/18 at 11:30; Status OZZIE BULLOCK NP Dec 11, 2018 11:36
--- NOTE | 2018-12-11 12:04 | PN ---
Date/Time of Note Date/Time of Note DATE: 12/11/18 TIME: 12:01 Assessment/Plan VTE Prophylaxis Risk score (from Nsg)>0 risk: 6 SCD applied (from Nsg): Yes Pharmacological prophylaxis: other Lines/Catheters IV Catheter Type (from Nrsg): PICC Line Central line still needed: Yes Urinary Cath still in place: No Assessment/Plan Assessment/Plan 1. Mechanical fall secondary to septic R Knee - PT/OT - ARU pending insurance authorization 2. Septic R knee joint - Ortho on board and recommendations appreciated. Cleared for discharge and will need follow up if not discharged to ARU. Continue IV antibiotics until 01/18 then will need to continue PO antibiotics for 3-6 months - pain control - s/p prev RTKA - Patient is status post irrigation and debridement of right knee arthroplasty with wound complaint exchange of right total knee arthroplasty December 05, 2018 3. Chronic spinal disease - Patient does have a history of significant stenosis of her spine. Lumbar spine and thoracic spine do so signs of stenosis though no acute fractures. - Continue pain management. 4. osteoarthritis - pain control 5. urinary tract infection: - Ecoli and lactobacillus - abx per ID 6. Strep Bacteremia - continue current antibiotics 7. 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 Disposition - ARU pending insurance authorization Result Diagram: 12/10/18 0447 12/09/18 0447 Subjective 24 Hr Interval Summary Free Text/Dictation Patient getting anxious to get out of the hospital and discussed ARU placement based on insurance approval. Per nursing, patient has been incontinent and concerned about patients sacral wound. Exam/Review of Systems Exam Vitals Vital Signs Date Temp Pulse Resp B/P (MAP) Pulse Ox O2 O2 Flow FiO2 Time Delivery Rate 12/11/18 98.2 71 17 106/69 98 Room Air 07:42 (81) 12/09/18 21 20:52 Intake and Output 12/10/18 12/10/18 12/11/18 1515:00 23:00 07:00 IntakeIntake Total 560 ml 1070 ml 360 ml OutputOutput Total 550 ml BalanceBalance 560 ml 1070 ml -190 ml Exam General: Patient sitting in chair at bedside. no acute distress Neck: Supple, nontender, midline Respiratory: Clear to auscultation bilaterally. no wheezing or rhonchi Cardiovascular: regular rate and rhythm, no obvious murmurs Gastrointestinal: soft, non-tender to palpation, bowel sounds heard. Ext: Moves all extremities spontaneously Skin: No new skin lesions, surgical incision site R knee CDI Medications Medication Current Medications Albuterol (Ventolin Hfa) 2 puff Q4H PRN INH WHEEZING AND SOB; Start 12/01/18 at 21:00 Ascorbic Acid (Vitamin C) 500 mg BID PO Last administered on 12/11/18 08:07; Admin Dose 500 MG; Start 12/01/18 at 21:00 Bupropion HCl (Wellbutrin Xl) 300 mg DAILY PO Last administered on 12/11/18 08:07; Admin Dose 300 MG; Start 12/02/18 at 09:00 Cholecalciferol (Vitamin D) 1,000 unit DAILY PO Last administered on 12/11/18 08:07; Admin Dose 1,000 UNIT; Start 12/02/18 at 09:00 Diclofenac Sodium (Voltaren 1% Gel) 2 gm TID PRN TP PAIN; Start 12/01/18 at 21:00 Levothyroxine Sodium (Synthroid) 100 mcg BEFORE BREAKFAST PO Last administered on 12/11/18 07:16; Admin Dose 100 MCG; Start 12/02/18 at 07:00 Lisinopril (Zestril) 5 mg DAILY PO Last administered on 12/09/18 09:50; Admin Dose 5 MG; Start 12/02/18 at 09:00 Magnesium Hydroxide (Milk Of Mag) 30 ml DAILY PRN PO CONSTIPATION; Start 12/01/18 at 21:00 Multivitamins Therapeutic (Theragran) 1 tab DAILY PO Last administered on 12/11/18 08:07; Admin Dose 1 TAB; Start 12/02/18 at 09:00 Sodium Biphosphate/ Sodium Phosphate (Fleet Enema) 133 ml DAILY PRN [place] CONSTIPATION; Start 12/01/18 at 21:00 Polyethylene Glycol (Miralax) 17 gm DAILY PO Last administered on 12/08/18 10:15; Admin Dose 17 GM; Start 12/02/18 at 09:00 Senna (Senokot) 1 tab BID PO Last administered on 12/11/18 08:07; Admin Dose 1 TAB; Start 12/01/18 at 21:00 Vitamin B Complex/ Vitamin C (Berocca) 1 cap DAILY PO Last administered on 12/11/18 08:07; Admin Dose 1 CAP; Start 12/02/18 at 09:00 Arformoterol Tartrate (Brovana (Neb)) 2 ml BID RESP THERAPY INH Last administered on 12/07/18 09:15; Admin Dose 2 ML; Start 12/01/18 at 22:30 Fish Oil (Fish Oil) 1,000 mg DAILY PO Last administered on 12/11/18 08:07; Admin Dose 1,000 MG; Start 12/02/18 at 09:00 Ceftriaxone Sodium 50 ml @ 100 mls/hr Q24H IVPB Last administered on 12/10/18 18:27; Admin Dose 100 MLS/HR; Start 12/02/18 at 18:00 IV Flush (NS 3 ml) 3 ml PER PROTOCOL IV ; Start 12/01/18 at 22:00 Ondansetron HCl (Zofran Inj) 4 mg Q6H PRN IV NAUSEA/VOMITING; Start 12/01/18 at 22:00 Docusate Sodium (Colace) 100 mg Q12H PRN PO .CONSTIPATION; Start 12/01/18 at 22:00 Bisacodyl (Dulcolax) 5 mg DAILY PRN PO .CONSTIPATION; Start 12/01/18 at 22:00 Budesonide (Pulmicort (Neb)) 0.5 mg Q12H RESP THERAPY INH Last administered on 12/09/18 14:04; Admin Dose 0.5 MG; Start 12/01/18 at 23:00 Miscellaneous Information (Pending Santyl Order For Wound Care) This patient ruano... PRN PRN XX WOUND CARE; Start 12/02/18 at 00:00 Collagenase (Santyl) 1 applic BID TOP Last administered on 12/11/18 08:06; Admin Dose 1 APPLIC; Start 12/02/18 at 11:30 Lidocaine (Xylocaine 1% (Mpf)) 30 ml ONCE PRN INJ aspiration ; Start 12/04/18 at 17:30 IV Flush (NS 3 ml) 3 ml PER PROTOCOL IV ; Start 12/05/18 at 21:30 Oxycodone HCl (Roxicodone) 15 mg Q4H PRN PO .PAIN Last administered on 12/11/18 10:13; Admin Dose 15 MG; Start 12/05/18 at 21:30 Oxycodone HCl (Roxicodone) 10 mg Q4H PRN PO .PAIN Last administered on 12/07/18 02:36; Admin Dose 10 MG; Start 12/05/18 at 21:30 Oxycodone HCl (Roxicodone) 5 mg Q4H PRN PO .PAIN; Start 12/05/18 at 21:30 Hydromorphone HCl (Dilaudid) 1 mg Q3H PRN IV .BREAKTHROUGH PAIN Last administered on 12/06/18 06:58; Admin Dose 1 MG; Start 12/05/18 at 21:30 Acetaminophen (Tylenol Tab) 1,000 mg Q8 PO Last administered on 12/10/18 13:58; Admin Dose 1,000 MG; Start 12/06/18 at 22:00 Ondansetron HCl (Zofran Inj) 4 mg Q4H PRN IV NAUSEA/VOMITING; Start 12/06/18 at 21:30 Gabapentin (Neurontin) 300 mg QHS PO Last administered on 12/10/18 21:36; Admin Dose 300 MG; Start 12/06/18 at 21:00 Pantoprazole (Protonix Tab) 40 mg DAILY@06 PO Last administered on 12/11/18 07:16; Admin Dose 40 MG; Start 12/07/18 at 06:00 Simethicone (Mylicon) 80 mg TID PRN PO .GAS; Start 12/05/18 at 21:30 Senna/Docusate Sodium (Senokot-S) 2 tab BID PRN PO .CONSTIPATION Last administered on 12/06/18 08:54; Admin Dose 2 TAB; Start 12/05/18 at 21:30 Magnesium Hydroxide (Milk Of Mag) 30 ml HS PRN PO .CONSTIPATION; Start 12/05/18 at 21:30 Bisacodyl (Dulcolax Supp) 10 mg DAILY PRN [place] .CONSTIPATION; Start 12/05/18 at 21:30 Sodium Biphosphate/ Sodium Phosphate (Fleet Enema) 133 ml DAILY PRN [place] .CONSTIPATION; Start 12/05/18 at 21:30 Diphenhydramine HCl (Benadryl) 25 mg Q4H PRN IV .ITCHING; Start 12/05/18 at 21:30 Naloxone HCl (Narcan) 0.2 mg Q2M PRN IV .RESP RATE; Start 12/05/18 at 21:30 Bethanechol Chloride (Urecholine) 25 mg URINARY CATH D/C PRN PO UNABLE TO VOID; Start 12/05/18 at 21:30 Aspirin (Halfprin) 81 mg BID PO Last administered on 12/11/18at 08:07; Admin Dose 81 MG; Start 12/06/18 at 09:00 Naloxone HCl (Narcan) 0.2 mg Q2M PRN IV .RESP RATE; Start 12/05/18 at 21:30 Vancomycin HCl (Vanco Iv Per Pharmacy) VANCOMYCIN PER PHARMACY PER PROTOCOL XX ; Start 12/11/18 at 11:30; Status BALTAZAR BLAND MD Dec 11, 2018 12:04
[2018-12-11] MEDS ORDERED: VANCOMYCIN HCL 1.25 GM in SOD CHLORIDE 0.9% 250 ML IVPB ONE (14:30)
[2018-12-11 14:53] VITALS: BP 117/57; PULSE 77
[2018-12-11] MEDS: CEFTRIAXONE 1 GM/50 ML (PMX) 50 ML IVPB SCH (18:02)
[2018-12-11 20:30] VITALS: BP 142/75; PULSE 74; RESP 19
[2018-12-11] MEDS: GABAPENTIN 300 MG CAP PO SCH (21:08)
[2018-12-12 02:09] VITALS: BP 126/64; PULSE 76; RESP 18
[2018-12-12] MEDS: oxyCODONE 5 MG TAB PO PRN (02:26)
[2018-12-12] MEDS: VANCOMYCIN 750 MG (PMX) 250 ML IVPB SCH ×2 (04:06→16:35)
[2018-12-12] MEDS: PANTOPRAZOLE (EC) 40 MG TAB PO SCH (05:39)
[2018-12-12] MEDS: LEVOTHYROXINE 100 MCG TAB PO SCH (05:39)
[2018-12-12] MEDS: ACETAMINOPHEN 500 MG TAB PO SCH ×3 (05:39→22:42)
[2018-12-12] MEDS: BUDESONIDE (NEB) 0.5MG/2ML AMP INH SCH ×2 (08:00→20:00)
[2018-12-12 08:30] VITALS: BP 139/67; PULSE 72; RESP 16
[2018-12-12] MEDS: LISINOPRIL 5 MG TAB PO SCH (08:48)
[2018-12-12] MEDS: ASPIRIN (EC) 81 MG TAB PO SCH ×2 (08:48→20:26)
[2018-12-12] MEDS: VITAMIN B COMPLEX/VIT C CAP PO SCH (08:48)
[2018-12-12] MEDS: MULTIVITAMINS THERAPEUTIC TAB PO SCH (08:48)
[2018-12-12] MEDS: FISH OIL 1,000 MG CAP PO SCH (08:48)
[2018-12-12] MEDS: CHOLECALCIFEROL 1,000 UNIT TAB PO SCH (08:48)
[2018-12-12] MEDS: COLLAGENASE 5 GM (UD JAR) TOP SCH ×2 (08:48→20:28)
[2018-12-12] MEDS: ASCORBIC ACID 500 MG TAB PO SCH ×2 (08:48→20:26)
[2018-12-12] MEDS: BUPROPION (XL) 150 MG TAB PO SCH (08:48)
[2018-12-12] MEDS: POLYETHYLENE GLYCOL 17 GM PACKET PO SCH (08:49)
[2018-12-12] MEDS: SENNA TAB PO SCH ×2 (08:49→21:00)
[2018-12-12] MEDS: ARFORMOTEROL TARTRATE 15MCG/2 ML AMP INH SCH ×2 (09:00→20:00)
--- NOTE | 2018-12-12 09:13 | PN ---
Date/Time of Note Date/Time of Note DATE: 12/12/18 TIME: 09:13 Assessment/Plan VTE Prophylaxis Risk score (from Nsg)>0 risk: 6 SCD applied (from Nsg): Yes Pharmacological prophylaxis: other Lines/Catheters IV Catheter Type (from Nrsg): PICC Line Central line still needed: Yes Urinary Cath still in place: No Assessment/Plan Assessment/Plan 1. Mechanical fall secondary to septic R Knee - PT/OT 2. Septic R knee joint - patient progressing well with physical therapy. - Ortho on board and recommendations appreciated. Cleared for discharge and will need follow up as outpatient. Continue IV antibiotics until 01/18 then will need to continue PO antibiotics for 3-6 months - pain control - s/p prev RTKA - Patient is status post irrigation and debridement of right knee arthroplasty with wound complaint exchange of right total knee arthroplasty December 05, 2018 3. Chronic spinal disease - Patient does have a history of significant stenosis of her spine. Lumbar spine and thoracic spine do so signs of stenosis though no acute fractures. - Continue pain management. 4. osteoarthritis - pain control 5. urinary tract infection: - Ecoli and lactobacillus - abx per ID 6. Strep Bacteremia - continue current antibiotics 7. 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 Disposition - CM on board for SNF placement. Patient realized SNF may be challenging and may end up home with HHPT which is less than ideal. Result Diagram: 12/10/18 0447 12/12/18 0450 Results 24hrs Laboratory Tests Test 12/12/18 04:50 Blood Urea Nitrogen 13 Creatinine 0.46 Subjective 24 Hr Interval Summary Free Text/Dictation Patient upset this am after ARU admission was denied. States son is going to pursue litigation against previous SNF since developed sacral wound at their facility. Exam/Review of Systems Exam Vitals Vital Signs Date Temp Pulse Resp B/P (MAP) Pulse Ox O2 O2 Flow FiO2 Time Delivery Rate 12/12/18 98.2 72 16 139/67 96 Room Air 08:30 (91) 12/11/18 21 20:15 Intake and Output 12/11/18 12/11/18 12/12/18 1515:00 23:00 07:00 IntakeIntake Total 730 ml 740 ml 370 ml OutputOutput Total 300 ml 201 ml BalanceBalance 430 ml 539 ml 370 ml Exam General: Patient sitting in chair at bedside. no acute distress Neck: Supple, nontender, midline Respiratory: Clear to auscultation bilaterally. no wheezing or rhonchi Cardiovascular: regular rate and rhythm, no obvious murmurs Gastrointestinal: soft, non-tender to palpation, bowel sounds heard. Ext: Moves all extremities spontaneously Skin: No new skin lesions, surgical incision site R knee CDI Results Results 24hrs Laboratory Tests Test 12/12/18 04:50 Blood Urea Nitrogen 13 Creatinine 0.46 Medications Medication Current Medications Albuterol (Ventolin Hfa) 2 puff Q4H PRN INH WHEEZING AND SOB; Start 12/01/18 at 21:00 Ascorbic Acid (Vitamin C) 500 mg BID PO Last administered on 12/12/18 08:48; Admin Dose 500 MG; Start 12/01/18 at 21:00 Bupropion HCl (Wellbutrin Xl) 300 mg DAILY PO Last administered on 12/12/18 08:48; Admin Dose 300 MG; Start 12/02/18 at 09:00 Cholecalciferol (Vitamin D) 1,000 unit DAILY PO Last administered on 12/12/18 08:48; Admin Dose 1,000 UNIT; Start 12/02/18 at 09:00 Diclofenac Sodium (Voltaren 1% Gel) 2 gm TID PRN TP PAIN; Start 12/01/18 at 21:00 Levothyroxine Sodium (Synthroid) 100 mcg BEFORE BREAKFAST PO Last administered on 12/12/18 05:39; Admin Dose 100 MCG; Start 12/02/18 at 07:00 Lisinopril (Zestril) 5 mg DAILY PO Last administered on 12/12/18 08:48; Admin Dose 5 MG; Start 12/02/18 at 09:00 Magnesium Hydroxide (Milk Of Mag) 30 ml DAILY PRN PO CONSTIPATION; Start 12/01/18 at 21:00 Multivitamins Therapeutic (Theragran) 1 tab DAILY PO Last administered on 12/12/18 08:48; Admin Dose 1 TAB; Start 12/02/18 at 09:00 Sodium Biphosphate/ Sodium Phosphate (Fleet Enema) 133 ml DAILY PRN [place] CONSTIPATION; Start 12/01/18 at 21:00 Polyethylene Glycol (Miralax) 17 gm DAILY PO Last administered on 12/08/18 10:15; Admin Dose 17 GM; Start 12/02/18 at 09:00 Senna (Senokot) 1 tab BID PO Last administered on 12/11/18 21:08; Admin Dose 1 TAB; Start 12/01/18 at 21:00 Vitamin B Complex/ Vitamin C (Berocca) 1 cap DAILY PO Last administered on 12/12/18 08:48; Admin Dose 1 CAP; Start 12/02/18 at 09:00 Arformoterol Tartrate (Brovana (Neb)) 2 ml BID RESP THERAPY INH Last administered on 12/07/18 09:15; Admin Dose 2 ML; Start 12/01/18 at 22:30 Fish Oil (Fish Oil) 1,000 mg DAILY PO Last administered on 12/12/18 08:48; Admin Dose 1,000 MG; Start 12/02/18 at 09:00 Ceftriaxone Sodium 50 ml @ 100 mls/hr Q24H IVPB Last administered on 12/11/18 18:02; Admin Dose 100 MLS/HR; Start 12/02/18 at 18:00 IV Flush (NS 3 ml) 3 ml PER PROTOCOL IV ; Start 12/01/18 at 22:00 Docusate Sodium (Colace) 100 mg Q12H PRN PO .CONSTIPATION; Start 12/01/18 at 22:00 Bisacodyl (Dulcolax) 5 mg DAILY PRN PO .CONSTIPATION; Start 12/01/18 at 22:00 Budesonide (Pulmicort (Neb)) 0.5 mg Q12H RESP THERAPY INH Last administered on 12/09/18 14:04; Admin Dose 0.5 MG; Start 12/01/18 at 23:00 Miscellaneous Information (Pending Santyl Order For Wound Care) This patient ruano... PRN PRN XX WOUND CARE; Start 12/02/18 at 00:00 Collagenase (Santyl) 1 applic BID TOP Last administered on 12/12/18 08:48; Admin Dose 1 APPLIC; Start 12/02/18 at 11:30 Lidocaine (Xylocaine 1% (Mpf)) 30 ml ONCE PRN INJ aspiration ; Start 12/04/18 at 17:30 IV Flush (NS 3 ml) 3 ml PER PROTOCOL IV ; Start 12/05/18 at 21:30 Oxycodone HCl (Roxicodone) 15 mg Q4H PRN PO .PAIN Last administered on 12/12/18 02:26; Admin Dose 15 MG; Start 12/05/18 at 21:30 Oxycodone HCl (Roxicodone) 10 mg Q4H PRN PO .PAIN Last administered on 12/07/18 02:36; Admin Dose 10 MG; Start 12/05/18 at 21:30 Oxycodone HCl (Roxicodone) 5 mg Q4H PRN PO .PAIN; Start 12/05/18 at 21:30 Hydromorphone HCl (Dilaudid) 1 mg Q3H PRN IV .BREAKTHROUGH PAIN Last administered on 12/06/18 06:58; Admin Dose 1 MG; Start 12/05/18 at 21:30 Acetaminophen (Tylenol Tab) 1,000 mg Q8 PO Last administered on 12/12/18 05:39; Admin Dose 1,000 MG; Start 12/06/18 at 22:00 Ondansetron HCl (Zofran Inj) 4 mg Q4H PRN IV NAUSEA/VOMITING; Start 12/06/18 at 21:30 Gabapentin (Neurontin) 300 mg QHS PO Last administered on 12/11/18 21:08; Admin Dose 300 MG; Start 12/06/18 at 21:00 Pantoprazole (Protonix Tab) 40 mg DAILY@06 PO Last administered on 12/12/18 05:39; Admin Dose 40 MG; Start 12/07/18 at 06:00 Simethicone (Mylicon) 80 mg TID PRN PO .GAS; Start 12/05/18 at 21:30 Senna/Docusate Sodium (Senokot-S) 2 tab BID PRN PO .CONSTIPATION Last administered on 12/06/18 08:54; Admin Dose 2 TAB; Start 12/05/18 at 21:30 Magnesium Hydroxide (Milk Of Mag) 30 ml HS PRN PO .CONSTIPATION; Start 12/05/18 at 21:30 Bisacodyl (Dulcolax Supp) 10 mg DAILY PRN [place] .CONSTIPATION; Start 12/05/18 at 21:30 Sodium Biphosphate/ Sodium Phosphate (Fleet Enema) 133 ml DAILY PRN [place] .CONSTIPATION; Start 12/05/18 at 21:30 Diphenhydramine HCl (Benadryl) 25 mg Q4H PRN IV .ITCHING; Start 12/05/18 at 21:30 Naloxone HCl (Narcan) 0.2 mg Q2M PRN IV .RESP RATE; Start 12/05/18 at 21:30 Bethanechol Chloride (Urecholine) 25 mg URINARY CATH D/C PRN PO UNABLE TO VOID; Start 12/05/18 at 21:30 Aspirin (Halfprin) 81 mg BID PO Last administered on 12/12/18at 08:48; Admin Dose 81 MG; Start 12/06/18 at 09:00 Naloxone HCl (Narcan) 0.2 mg Q2M PRN IV .RESP RATE; Start 12/05/18 at 21:30 Vancomycin HCl (Vanco Iv Per Pharmacy) VANCOMYCIN PER PHARMACY PER PROTOCOL XX ; Start 12/11/18 at 11:30 Vancomycin/Sodium Chloride 250 ml @ 125 mls/hr Q12H IVPB Last administered on 12/12/18at 04:06; Admin Dose 125 MLS/HR; Start 12/12/18 at 04:00 BALTAZAR BARAJAS MD Dec 12, 2018 09:13
[2018-12-12 15:30] VITALS: BP 119/56; PULSE 75; RESP 18
[2018-12-12] MEDS: CEFTRIAXONE 1 GM/50 ML (PMX) 50 ML IVPB SCH (19:03)
[2018-12-12 20:10] VITALS: BP 140/80; PULSE 58; RESP 18
[2018-12-12] MEDS: GABAPENTIN 300 MG CAP PO SCH (20:27)
[2018-12-12] MEDS: NYSTATIN 30 GM POWDER BTL TOP SCH (20:28)
[2018-12-12] MEDS: DAKINS 0.0125%(1/40) 473 ML SOLUTION TP SCH (20:29)
[2018-12-13] MEDS: oxyCODONE 5 MG TAB PO PRN ×2 (01:04→22:17)
[2018-12-13 03:23] VITALS: BP 128/62; PULSE 67; RESP 18
[2018-12-13] MEDS ORDERED: VANCOMYCIN 750 MG (PMX) 250 ML IVPB SCH (04:00)
[2018-12-13] MEDS: PANTOPRAZOLE (EC) 40 MG TAB PO SCH (06:06)
[2018-12-13] MEDS: ACETAMINOPHEN 500 MG TAB PO SCH ×3 (06:06→22:17)
[2018-12-13] MEDS: LEVOTHYROXINE 100 MCG TAB PO SCH (06:06)
[2018-12-13 07:39] VITALS: BP 112/56; PULSE 78; RESP 19
--- NOTE | 2018-12-13 08:35 | PN ---
Date/Time of Note Date/Time of Note DATE: 12/13/18 TIME: 08:35 Assessment/Plan VTE Prophylaxis Risk score (from Nsg)>0 risk: 8 SCD applied (from Nsg): Yes Pharmacological prophylaxis: other (aspirin BID) Lines/Catheters IV Catheter Type (from Nrsg): PICC Line Central line still needed: Yes Urinary Cath still in place: No Assessment/Plan Assessment/Plan 1. Septic R knee joint s/p irrigation and debridement of right knee arthroplasty 12/05/18 - Doing well with PT/OT but still with knee buckling during therapy - Ortho on board and recommendations appreciated. Continue IV antibiotics until 01/18 then will need to continue PO antibiotics for 3-6 months - pain control 2. 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 Chronic spinal disease - h/o significant stenosis of her spine. Lumbar spine and thoracic spine CT show signs of stenosis though no acute fractures. 4. osteoarthritis - pain control 5. urinary tract infection: - Cultures growing ecoli and lactobacillus - continues on antibiotics 6. Strep Bacteremia - continue current antibiotics - repeat cultures negative 7. Mechanical fall - pily remove and site remains clean and dry 8. Disposition - continue current antibiotic treatment - CM on board for SNF placement. Given patients weakness during PT with knee buckling, high risk for fall if returns home. Result Diagram: 12/10/18 0447 12/12/18 0450 Results 24hrs Laboratory Tests Test 12/13/18 03:04 Vancomycin Level Trough 7.2 L Subjective 24 Hr Interval Summary Free Text/Dictation Patient states shes doing better with physical therapy and able to ambulate farther today with OT. She still feels "wobbly" on RLE after ambulating. No acute overnight events. Exam/Review of Systems Exam Vitals Vital Signs Date Temp Pulse Resp B/P (MAP) Pulse Ox O2 O2 Flow FiO2 Time Delivery Rate 12/13/18 98.2 78 19 112/56 98 Room Air 07:39 (74) 12/11/18 21 20:15 Intake and Output 12/12/18 12/12/18 12/13/18 1515:00 23:00 07:00 IntakeIntake Total 840 ml 480 ml OutputOutput Total 1 ml BalanceBalance 840 ml 479 ml Exam General: Patient laying in bed, no acute distress. answering questions appropria tely Neck: Supple Respiratory: Clear to auscultation bilaterally. no wheezing or rhonchi Cardiovascular: regular rate and rhythm, no obvious murmurs Gastrointestinal: soft, non-tender to palpation, bowel sounds heard. Ext: Moves all extremities spontaneously. right knee dressing in place without discharge or drainage Results Results 24hrs Laboratory Tests Test 12/13/18 03:04 Vancomycin Level Trough 7.2 L Medications Medication Current Medications Albuterol (Ventolin Hfa) 2 puff Q4H PRN INH WHEEZING AND SOB; Start 12/01/18 at 21:00 Ascorbic Acid (Vitamin C) 500 mg BID PO Last administered on 12/12/18 20:26; Admin Dose 500 MG; Start 12/01/18 at 21:00 Bupropion HCl (Wellbutrin Xl) 300 mg DAILY PO Last administered on 12/12/18 08:48; Admin Dose 300 MG; Start 12/02/18 at 09:00 Cholecalciferol (Vitamin D) 1,000 unit DAILY PO Last administered on 12/12/18 08:48; Admin Dose 1,000 UNIT; Start 12/02/18 at 09:00 Diclofenac Sodium (Voltaren 1% Gel) 2 gm TID PRN TP PAIN; Start 12/01/18 at 21:00 Levothyroxine Sodium (Synthroid) 100 mcg BEFORE BREAKFAST PO Last administered on 12/13/18 06:06; Admin Dose 100 MCG; Start 12/02/18 at 07:00 Lisinopril (Zestril) 5 mg DAILY PO Last administered on 12/12/18 08:48; Admin Dose 5 MG; Start 12/02/18 at 09:00 Magnesium Hydroxide (Milk Of Mag) 30 ml DAILY PRN PO CONSTIPATION; Start 12/01/18 at 21:00 Multivitamins Therapeutic (Theragran) 1 tab DAILY PO Last administered on 12/12/18 08:48; Admin Dose 1 TAB; Start 12/02/18 at 09:00 Sodium Biphosphate/ Sodium Phosphate (Fleet Enema) 133 ml DAILY PRN [place] CONSTIPATION; Start 12/01/18 at 21:00 Polyethylene Glycol (Miralax) 17 gm DAILY PO Last administered on 12/08/18 10:15; Admin Dose 17 GM; Start 12/02/18 at 09:00 Senna (Senokot) 1 tab BID PO Last administered on 12/11/18 21:08; Admin Dose 1 TAB; Start 12/01/18 at 21:00 Vitamin B Complex/ Vitamin C (Berocca) 1 cap DAILY PO Last administered on 12/12/18 08:48; Admin Dose 1 CAP; Start 12/02/18 at 09:00 Arformoterol Tartrate (Brovana (Neb)) 2 ml BID RESP THERAPY INH Last administered on 12/07/18 09:15; Admin Dose 2 ML; Start 12/01/18 at 22:30 Fish Oil (Fish Oil) 1,000 mg DAILY PO Last administered on 12/12/18 08:48; Admin Dose 1,000 MG; Start 12/02/18 at 09:00 Ceftriaxone Sodium 50 ml @ 100 mls/hr Q24H IVPB Last administered on 12/12/18 19:03; Admin Dose 100 MLS/HR; Start 12/02/18 at 18:00 IV Flush (NS 3 ml) 3 ml PER PROTOCOL IV ; Start 12/01/18 at 22:00 Docusate Sodium (Colace) 100 mg Q12H PRN PO .CONSTIPATION; Start 12/01/18 at 22:00 Bisacodyl (Dulcolax) 5 mg DAILY PRN PO .CONSTIPATION; Start 12/01/18 at 22:00 Budesonide (Pulmicort (Neb)) 0.5 mg Q12H RESP THERAPY INH Last administered on 12/09/18 14:04; Admin Dose 0.5 MG; Start 12/01/18 at 23:00 Miscellaneous Information (Pending Santyl Order For Wound Care) This patient ruano... PRN PRN XX WOUND CARE; Start 12/02/18 at 00:00 Collagenase (Santyl) 1 applic BID TOP Last administered on 12/12/18 20:28; Admin Dose 1 APPLIC; Start 12/02/18 at 11:30 Lidocaine (Xylocaine 1% (Mpf)) 30 ml ONCE PRN INJ aspiration ; Start 12/04/18 at 17:30 IV Flush (NS 3 ml) 3 ml PER PROTOCOL IV ; Start 12/05/18 at 21:30 Oxycodone HCl (Roxicodone) 15 mg Q4H PRN PO .PAIN Last administered on 12/13/18 01:04; Admin Dose 15 MG; Start 12/05/18 at 21:30 Oxycodone HCl (Roxicodone) 10 mg Q4H PRN PO .PAIN Last administered on 12/07/18 02:36; Admin Dose 10 MG; Start 12/05/18 at 21:30 Oxycodone HCl (Roxicodone) 5 mg Q4H PRN PO .PAIN; Start 12/05/18 at 21:30 Hydromorphone HCl (Dilaudid) 1 mg Q3H PRN IV .BREAKTHROUGH PAIN Last administered on 12/06/18 06:58; Admin Dose 1 MG; Start 12/05/18 at 21:30 Acetaminophen (Tylenol Tab) 1,000 mg Q8 PO Last administered on 12/13/18 06:06; Admin Dose 1,000 MG; Start 12/06/18 at 22:00 Ondansetron HCl (Zofran Inj) 4 mg Q4H PRN IV NAUSEA/VOMITING; Start 12/06/18 at 21:30 Gabapentin (Neurontin) 300 mg QHS PO Last administered on 12/12/18 20:27; Admin Dose 300 MG; Start 12/06/18 at 21:00 Pantoprazole (Protonix Tab) 40 mg DAILY@06 PO Last administered on 12/13/18 06:06; Admin Dose 40 MG; Start 12/07/18 at 06:00 Simethicone (Mylicon) 80 mg TID PRN PO .GAS; Start 12/05/18 at 21:30 Senna/Docusate Sodium (Senokot-S) 2 tab BID PRN PO .CONSTIPATION Last administered on 12/06/18 08:54; Admin Dose 2 TAB; Start 12/05/18 at 21:30 Magnesium Hydroxide (Milk Of Mag) 30 ml HS PRN PO .CONSTIPATION; Start 12/05/18 at 21:30 Bisacodyl (Dulcolax Supp) 10 mg DAILY PRN [place] .CONSTIPATION; Start 12/05/18 at 21:30 Sodium Biphosphate/ Sodium Phosphate (Fleet Enema) 133 ml DAILY PRN [place] .CONSTIPATION; Start 12/05/18 at 21:30 Diphenhydramine HCl (Benadryl) 25 mg Q4H PRN IV .ITCHING; Start 12/05/18 at 21:30 Naloxone HCl (Narcan) 0.2 mg Q2M PRN IV .RESP RATE; Start 12/05/18 at 21:30 Bethanechol Chloride (Urecholine) 25 mg URINARY CATH D/C PRN PO UNABLE TO VOID; Start 12/05/18 at 21:30 Aspirin (Halfprin) 81 mg BID PO Last administered on 12/12/18at 20:26; Admin Dose 81 MG; Start 12/06/18 at 09:00 Naloxone HCl (Narcan) 0.2 mg Q2M PRN IV .RESP RATE; Start 12/05/18 at 21:30 Vancomycin HCl (Vanco Iv Per Pharmacy) VANCOMYCIN PER PHARMACY PER PROTOCOL XX ; Start 12/11/18 at 11:30 Sodium Hypochlorite (Dakins Diluted (1/40)) 1 applic BID TP Last administered on 12/12/18at 20:29; Admin Dose 1 APPLIC; Start 12/12/18 at 21:00 Nystatin (Nystatin Powder) 1 applic BID TOP Last administered on 12/12/18at 20:28; Admin Dose 1 APPLIC; Start 12/12/18 at 21:00 Vancomycin HCl 1.25 gm/Sodium Chloride 250 ml @ 83.333 mls/ hr Q12H IVPB ; Start 12/13/18 at 14:00 BALTAZAR BARAJAS MD Dec 13, 2018 08:35
[2018-12-13] MEDS: ARFORMOTEROL TARTRATE 15MCG/2 ML AMP INH SCH ×2 (08:47→19:41)
[2018-12-13] MEDS: BUDESONIDE (NEB) 0.5MG/2ML AMP INH SCH ×2 (08:47→19:41)
[2018-12-13] MEDS: POLYETHYLENE GLYCOL 17 GM PACKET PO SCH (09:00)
[2018-12-13] MEDS: SENNA TAB PO SCH ×2 (09:00→21:00)
[2018-12-13] MEDS: VITAMIN B COMPLEX/VIT C CAP PO SCH (09:07)
[2018-12-13] MEDS: CHOLECALCIFEROL 1,000 UNIT TAB PO SCH (09:07)
[2018-12-13] MEDS: FISH OIL 1,000 MG CAP PO SCH (09:07)
[2018-12-13] MEDS: ASPIRIN (EC) 81 MG TAB PO SCH ×2 (09:07→20:21)
[2018-12-13] MEDS: MULTIVITAMINS THERAPEUTIC TAB PO SCH (09:07)
[2018-12-13] MEDS: ASCORBIC ACID 500 MG TAB PO SCH ×2 (09:07→20:21)
[2018-12-13] MEDS: BUPROPION (XL) 150 MG TAB PO SCH (09:08)
[2018-12-13] MEDS: COLLAGENASE 5 GM (UD JAR) TOP SCH ×2 (09:08→20:21)
[2018-12-13] MEDS: DAKINS 0.0125%(1/40) 473 ML SOLUTION TP SCH ×2 (09:09→20:22)
[2018-12-13] MEDS: NYSTATIN 30 GM POWDER BTL TOP SCH ×2 (09:09→20:22)
[2018-12-13] MEDS: LISINOPRIL 5 MG TAB PO SCH (09:12)
--- NOTE | 2018-12-13 11:46 | CONS ---
Assessment/Plan Assessment/Plan Hospital Course (Demo Recall) No acute changes overnight patient looks comfortable no fevers Vanco trough 7.2 BUN 13 creatinine 0.46 yesterday Antimicrobials: Vancomycin and cefepime Microbiology: Blood culture on admission grew strep, urine culture grew E. coli, MRSA swab negative, repeat blood cultures negative. Sacral wound cx + MRSA/Proteus/Strep 2D echo revealed no vegetations Physical examination: This is well-developed well-nourished elderly woman who is alert in no distress. Head atraumatic normocephalic neck is supple. Chest rise symmetrical breath sounds clear. Heart: S1-S2. Abdomen soft, bowel tones present. Extremities with right knee erythema and swelling Assessment: 1. Status post sepsis, present on admission 2. Streptococcal bacteremia 2 to 3. 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 Urinary tract infection 5. History of left total knee replacement 6. 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, continue on current abx for 2 weeks, then change to IV Rocephin for 6 weeks till January 18, f/u ortho rec-s Consultation Date/Type/Reason Admit Date/Time Dec 01, 2018 at 19:24 Initial Consult Date Type of Consult id Date/Time of Note DATE: 12/13/18 TIME: 11:44 Exam/Review of Systems Exam Vitals Vital Signs Date Temp Pulse Resp B/P (MAP) Pulse Ox O2 O2 Flow FiO2 Time Delivery Rate 12/13/18 98.2 78 19 112/56 98 Room Air 07:39 (74) 12/11/18 21 20:15 Intake and Output 12/12/18 12/12/18 12/13/18 1515:00 23:00 07:00 IntakeIntake Total 840 ml 480 ml OutputOutput Total 1 ml BalanceBalance 840 ml 479 ml Results Result Diagram: 12/10/18 0447 12/12/18 0450 Results 24hrs Laboratory Tests Test 12/13/18 03:04 Vancomycin Level Trough 7.2 L Medications Medication Current Medications Albuterol (Ventolin Hfa) 2 puff Q4H PRN INH WHEEZING AND SOB; Start 12/01/18 at 21:00 Ascorbic Acid (Vitamin C) 500 mg BID PO Last administered on 12/13/18 09:07; Admin Dose 500 MG; Start 12/01/18 at 21:00 Bupropion HCl (Wellbutrin Xl) 300 mg DAILY PO Last administered on 12/13/18 09:08; Admin Dose 300 MG; Start 12/02/18 at 09:00 Cholecalciferol (Vitamin D) 1,000 unit DAILY PO Last administered on 12/13/18 09:07; Admin Dose 1,000 UNIT; Start 12/02/18 at 09:00 Diclofenac Sodium (Voltaren 1% Gel) 2 gm TID PRN TP PAIN; Start 12/01/18 at 21:00 Levothyroxine Sodium (Synthroid) 100 mcg BEFORE BREAKFAST PO Last administered on 12/13/18 06:06; Admin Dose 100 MCG; Start 12/02/18 at 07:00 Lisinopril (Zestril) 5 mg DAILY PO Last administered on 12/13/18 09:12; Admin Dose 5 MG; Start 12/02/18 at 09:00 Magnesium Hydroxide (Milk Of Mag) 30 ml DAILY PRN PO CONSTIPATION; Start 12/01/18 at 21:00 Multivitamins Therapeutic (Theragran) 1 tab DAILY PO Last administered on 12/13/18 09:07; Admin Dose 1 TAB; Start 12/02/18 at 09:00 Sodium Biphosphate/ Sodium Phosphate (Fleet Enema) 133 ml DAILY PRN [place] CONSTIPATION; Start 12/01/18 at 21:00 Polyethylene Glycol (Miralax) 17 gm DAILY PO Last administered on 12/08/18 10:15; Admin Dose 17 GM; Start 12/02/18 at 09:00 Senna (Senokot) 1 tab BID PO Last administered on 12/11/18 21:08; Admin Dose 1 TAB; Start 12/01/18 at 21:00 Vitamin B Complex/ Vitamin C (Berocca) 1 cap DAILY PO Last administered on 12/13/18 09:07; Admin Dose 1 CAP; Start 12/02/18 at 09:00 Arformoterol Tartrate (Brovana (Neb)) 2 ml BID RESP THERAPY INH Last administered on 12/13/18 08:47; Admin Dose 2 ML; Start 12/01/18 at 22:30 Fish Oil (Fish Oil) 1,000 mg DAILY PO Last administered on 12/13/18 09:07; Admin Dose 1,000 MG; Start 12/02/18 at 09:00 Ceftriaxone Sodium 50 ml @ 100 mls/hr Q24H IVPB Last administered on 12/12/18 19:03; Admin Dose 100 MLS/HR; Start 12/02/18 at 18:00 IV Flush (NS 3 ml) 3 ml PER PROTOCOL IV ; Start 12/01/18 at 22:00 Docusate Sodium (Colace) 100 mg Q12H PRN PO .CONSTIPATION; Start 12/01/18 at 22:00 Bisacodyl (Dulcolax) 5 mg DAILY PRN PO .CONSTIPATION; Start 12/01/18 at 22:00 Budesonide (Pulmicort (Neb)) 0.5 mg Q12H RESP THERAPY INH Last administered on 12/13/18 08:47; Admin Dose 0.5 MG; Start 12/01/18 at 23:00 Miscellaneous Information (Pending Santyl Order For Wound Care) This patient ruano... PRN PRN XX WOUND CARE; Start 12/02/18 at 00:00 Collagenase (Santyl) 1 applic BID TOP Last administered on 12/13/18 09:08; Admin Dose 1 APPLIC; Start 12/02/18 at 11:30 Lidocaine (Xylocaine 1% (Mpf)) 30 ml ONCE PRN INJ aspiration ; Start 12/04/18 at 17:30 IV Flush (NS 3 ml) 3 ml PER PROTOCOL IV ; Start 12/05/18 at 21:30 Oxycodone HCl (Roxicodone) 15 mg Q4H PRN PO .PAIN Last administered on 12/13/18 01:04; Admin Dose 15 MG; Start 12/05/18 at 21:30 Oxycodone HCl (Roxicodone) 10 mg Q4H PRN PO .PAIN Last administered on 12/07/18 02:36; Admin Dose 10 MG; Start 12/05/18 at 21:30 Oxycodone HCl (Roxicodone) 5 mg Q4H PRN PO .PAIN; Start 12/05/18 at 21:30 Hydromorphone HCl (Dilaudid) 1 mg Q3H PRN IV .BREAKTHROUGH PAIN Last administered on 12/06/18 06:58; Admin Dose 1 MG; Start 12/05/18 at 21:30 Acetaminophen (Tylenol Tab) 1,000 mg Q8 PO Last administered on 12/13/18 06:06; Admin Dose 1,000 MG; Start 12/06/18 at 22:00 Ondansetron HCl (Zofran Inj) 4 mg Q4H PRN IV NAUSEA/VOMITING; Start 12/06/18 at 21:30 Gabapentin (Neurontin) 300 mg QHS PO Last administered on 12/12/18 20:27; Admin Dose 300 MG; Start 12/06/18 at 21:00 Pantoprazole (Protonix Tab) 40 mg DAILY@06 PO Last administered on 12/13/18 06:06; Admin Dose 40 MG; Start 12/07/18 at 06:00 Simethicone (Mylicon) 80 mg TID PRN PO .GAS; Start 12/05/18 at 21:30 Senna/Docusate Sodium (Senokot-S) 2 tab BID PRN PO .CONSTIPATION Last administered on 12/06/18 08:54; Admin Dose 2 TAB; Start 12/05/18 at 21:30 Magnesium Hydroxide (Milk Of Mag) 30 ml HS PRN PO .CONSTIPATION; Start 12/05/18 at 21:30 Bisacodyl (Dulcolax Supp) 10 mg DAILY PRN [place] .CONSTIPATION; Start 12/05/18 at 21:30 Sodium Biphosphate/ Sodium Phosphate (Fleet Enema) 133 ml DAILY PRN [place] .CONSTIPATION; Start 12/05/18 at 21:30 Diphenhydramine HCl (Benadryl) 25 mg Q4H PRN IV .ITCHING; Start 12/05/18 at 21:30 Naloxone HCl (Narcan) 0.2 mg Q2M PRN IV .RESP RATE; Start 12/05/18 at 21:30 Bethanechol Chloride (Urecholine) 25 mg URINARY CATH D/C PRN PO UNABLE TO VOID; Start 12/05/18 at 21:30 Aspirin (Halfprin) 81 mg BID PO Last administered on 12/13/18 09:07; Admin Dose 81 MG; Start 12/06/18 at 09:00 Naloxone HCl (Narcan) 0.2 mg Q2M PRN IV .RESP RATE; Start 12/05/18 at 21:30 Vancomycin HCl (Vanco Iv Per Pharmacy) VANCOMYCIN PER PHARMACY PER PROTOCOL XX ; Start 12/11/18 at 11:30 Sodium Hypochlorite (Dakins Diluted ()) 1 applic BID TP Last administered on 12/13/18at 09:09; Admin Dose 1 APPLIC; Start 12/12/18 at 21:00 Nystatin (Nystatin Powder) 1 applic BID TOP Last administered on 12/13/18at 09:09; Admin Dose 1 APPLIC; Start 12/12/18 at 21:00 Vancomycin HCl 1.25 gm/Sodium Chloride 250 ml @ 83.333 mls/ hr Q12H IVPB ; Start 12/13/18 at 14:00 OZZIE SOLOMON NP Dec 13, 2018 11:46
--- NOTE | 2018-12-13 12:38 | CONS ---
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 -Blood pressure trend overall well controlled on lisinopril 5 mg daily. Titrate as needed Consultation Date/Type/Reason Admit Date/Time Dec 01, 2018 at 19:24 Initial Consult Date 12/04/18 Type of Consult Cardiology Date/Time of Note DATE: 12/13/18 TIME: 12:36 24 HR Interval Summary Free Text/Dictation No shortness of breath, chest pain or palpitations Exam/Review of Systems Vital Signs Vitals Vital Signs Date Temp Pulse Resp B/P (MAP) Pulse Ox O2 O2 Flow FiO2 Time Delivery Rate 12/13/18 98.2 78 19 112/56 98 Room Air 07:39 (74) 12/11/18 20:15 Intake and Output 12/12/18 12/12/18 12/13/18 1515:00 23:00 07:00 IntakeIntake Total 840 ml 480 ml OutputOutput Total 1 ml BalanceBalance 840 ml 479 ml Exam Constitutional: alert, oriented (No apparent distress) Head: normocephalic Respiratory: clear to auscultation, normal air movement Cardiovascular: regular rate and rhythm (S1-S2 heard) Gastrointestinal: soft, non-tender, bowel sounds Extremities: other (Dressing lower extremity) Labs Result Diagram: 12/10/18 0447 12/12/18 0450 Results 24hrs Laboratory Tests Test 12/13/18 03:04 Vancomycin Level Trough 7.2 L Medications Medications Current Medications Albuterol (Ventolin Hfa) 2 puff Q4H PRN INH WHEEZING AND SOB; Start 12/01/18 at 21:00 Ascorbic Acid (Vitamin C) 500 mg BID PO Last administered on 12/13/18at 09:07; Admin Dose 500 MG; Start 12/01/18 at 21:00 Bupropion HCl (Wellbutrin Xl) 300 mg DAILY PO Last administered on 12/13/18at 09:08; Admin Dose 300 MG; Start 12/02/18 at 09:00 Cholecalciferol (Vitamin D) 1,000 unit DAILY PO Last administered on 12/13/18at 09:07; Admin Dose 1,000 UNIT; Start 12/02/18 at 09:00 Diclofenac Sodium (Voltaren 1% Gel) 2 gm TID PRN TP PAIN; Start 12/01/18 at 21:00 Levothyroxine Sodium (Synthroid) 100 mcg BEFORE BREAKFAST PO Last administered on 12/13/18 06:06; Admin Dose 100 MCG; Start 12/02/18 at 07:00 Lisinopril (Zestril) 5 mg DAILY PO Last administered on 12/13/18 09:12; Admin Dose 5 MG; Start 12/02/18 at 09:00 Magnesium Hydroxide (Milk Of Mag) 30 ml DAILY PRN PO CONSTIPATION; Start 12/01/18 at 21:00 Multivitamins Therapeutic (Theragran) 1 tab DAILY PO Last administered on 12/13/18 09:07; Admin Dose 1 TAB; Start 12/02/18 at 09:00 Sodium Biphosphate/ Sodium Phosphate (Fleet Enema) 133 ml DAILY PRN [place] CONSTIPATION; Start 12/01/18 at 21:00 Polyethylene Glycol (Miralax) 17 gm DAILY PO Last administered on 12/08/18 10:15; Admin Dose 17 GM; Start 12/02/18 at 09:00 Senna (Senokot) 1 tab BID PO Last administered on 12/11/18 21:08; Admin Dose 1 TAB; Start 12/01/18 at 21:00 Vitamin B Complex/ Vitamin C (Berocca) 1 cap DAILY PO Last administered on 12/13/18 09:07; Admin Dose 1 CAP; Start 12/02/18 at 09:00 Arformoterol Tartrate (Brovana (Neb)) 2 ml BID RESP THERAPY INH Last administered on 12/13/18 08:47; Admin Dose 2 ML; Start 12/01/18 at 22:30 Fish Oil (Fish Oil) 1,000 mg DAILY PO Last administered on 12/13/18 09:07; Admin Dose 1,000 MG; Start 12/02/18 at 09:00 Ceftriaxone Sodium 50 ml @ 100 mls/hr Q24H IVPB Last administered on 12/12/18 19:03; Admin Dose 100 MLS/HR; Start 12/02/18 at 18:00 IV Flush (NS 3 ml) 3 ml PER PROTOCOL IV ; Start 12/01/18 at 22:00 Docusate Sodium (Colace) 100 mg Q12H PRN PO .CONSTIPATION; Start 12/01/18 at 22:00 Bisacodyl (Dulcolax) 5 mg DAILY PRN PO .CONSTIPATION; Start 12/01/18 at 22:00 Budesonide (Pulmicort (Neb)) 0.5 mg Q12H RESP THERAPY INH Last administered on 12/13/18 08:47; Admin Dose 0.5 MG; Start 12/01/18 at 23:00 Miscellaneous Information (Pending Santyl Order For Wound Care) This patient ruano... PRN PRN XX WOUND CARE; Start 12/02/18 at 00:00 Collagenase (Santyl) 1 applic BID TOP Last administered on 12/13/18 09:08; Admin Dose 1 APPLIC; Start 12/02/18 at 11:30 Lidocaine (Xylocaine 1% (Mpf)) 30 ml ONCE PRN INJ aspiration ; Start 12/04/18 at 17:30 IV Flush (NS 3 ml) 3 ml PER PROTOCOL IV ; Start 12/05/18 at 21:30 Oxycodone HCl (Roxicodone) 15 mg Q4H PRN PO .PAIN Last administered on 12/13/18 01:04; Admin Dose 15 MG; Start 12/05/18 at 21:30 Oxycodone HCl (Roxicodone) 10 mg Q4H PRN PO .PAIN Last administered on 12/07/18 02:36; Admin Dose 10 MG; Start 12/05/18 at 21:30 Oxycodone HCl (Roxicodone) 5 mg Q4H PRN PO .PAIN; Start 12/05/18 at 21:30 Hydromorphone HCl (Dilaudid) 1 mg Q3H PRN IV .BREAKTHROUGH PAIN Last administered on 12/06/18at 06:58; Admin Dose 1 MG; Start 12/05/18 at 21:30 Acetaminophen (Tylenol Tab) 1,000 mg Q8 PO Last administered on 12/13/18 06:06; Admin Dose 1,000 MG; Start 12/06/18 at 22:00 Ondansetron HCl (Zofran Inj) 4 mg Q4H PRN IV NAUSEA/VOMITING; Start 12/06/18 at 21:30 Gabapentin (Neurontin) 300 mg QHS PO Last administered on 12/12/18 20:27; Admin Dose 300 MG; Start 12/06/18 at 21:00 Pantoprazole (Protonix Tab) 40 mg DAILY@06 PO Last administered on 12/13/18 06:06; Admin Dose 40 MG; Start 12/07/18 at 06:00 Simethicone (Mylicon) 80 mg TID PRN PO .GAS; Start 12/05/18 at 21:30 Senna/Docusate Sodium (Senokot-S) 2 tab BID PRN PO .CONSTIPATION Last administered on 12/06/18 08:54; Admin Dose 2 TAB; Start 12/05/18 at 21:30 Magnesium Hydroxide (Milk Of Mag) 30 ml HS PRN PO .CONSTIPATION; Start 12/05/18 at 21:30 Bisacodyl (Dulcolax Supp) 10 mg DAILY PRN MD .CONSTIPATION; Start 12/05/18 at 21:30 Sodium Biphosphate/ Sodium Phosphate (Fleet Enema) 133 ml DAILY PRN MD .CONSTIPATION; Start 12/05/18 at 21:30 Diphenhydramine HCl (Benadryl) 25 mg Q4H PRN IV .ITCHING; Start 12/05/18 at 21: 30 Naloxone HCl (Narcan) 0.2 mg Q2M PRN IV .RESP RATE; Start 12/05/18 at 21:30 Bethanechol Chloride (Urecholine) 25 mg URINARY CATH D/C PRN PO UNABLE TO VOID; Start 12/05/18 at 21:30 Aspirin (Halfprin) 81 mg BID PO Last administered on 12/13/18 09:07; Admin Dose 81 MG; Start 12/06/18 at 09:00 Naloxone HCl (Narcan) 0.2 mg Q2M PRN IV .RESP RATE; Start 12/05/18 at 21:30 Vancomycin HCl (Vanco Iv Per Pharmacy) VANCOMYCIN PER PHARMACY PER PROTOCOL XX ; Start 12/11/18 at 11:30 Sodium Hypochlorite (Dakins Diluted (40)) 1 applic BID TP Last administered on 12/13/18 09:09; Admin Dose 1 APPLIC; Start 12/12/18 at 21:00 Nystatin (Nystatin Powder) 1 applic BID TOP Last administered on 12/13/18 09:09; Admin Dose 1 APPLIC; Start 12/12/18 at 21:00 Vancomycin HCl 1.25 gm/Sodium Chloride 250 ml @ 83.333 mls/ hr Q12H IVPB ; Start 12/13/18 at 14:00 Martin Kelley DO Dec 13, 2018 12:38
[2018-12-13] MEDS: VANCOMYCIN HCL 1.25 GM in SOD CHLORIDE 0.9% 250 ML IVPB SCH (14:34)
[2018-12-13 15:30] VITALS: BP 121/62; PULSE 82; RESP 18
[2018-12-13 19:30] VITALS: BP 149/65; PULSE 78; RESP 18
[2018-12-13] MEDS: CEFEPIME 1GM/50 ML (PMX) 50 ML IVPB SCH (20:20)
[2018-12-13] MEDS: GABAPENTIN 300 MG CAP PO SCH (20:21)
[2018-12-14 01:46] VITALS: BP 118/58; PULSE 75; RESP 18
[2018-12-14] MEDS: VANCOMYCIN HCL 1.25 GM in SOD CHLORIDE 0.9% 250 ML IVPB SCH ×2 (03:03→18:10)
[2018-12-14] MEDS: PANTOPRAZOLE (EC) 40 MG TAB PO SCH ×2 (06:14→09:46)
[2018-12-14] MEDS: LEVOTHYROXINE 100 MCG TAB PO SCH (06:14)
[2018-12-14] MEDS: ACETAMINOPHEN 500 MG TAB PO SCH ×3 (06:14→21:48)
[2018-12-14 07:39] VITALS: BP 122/62; PULSE 72; RESP 19
[2018-12-14] MEDS: BUDESONIDE (NEB) 0.5MG/2ML AMP INH SCH ×2 (08:00→19:03)
[2018-12-14] MEDS: POLYETHYLENE GLYCOL 17 GM PACKET PO SCH (08:09)
[2018-12-14] MEDS: SENNA TAB PO SCH ×2 (08:09→21:00)
[2018-12-14] MEDS: ARFORMOTEROL TARTRATE 15MCG/2 ML AMP INH SCH ×2 (08:48→19:03)
[2018-12-14] MEDS: LISINOPRIL 5 MG TAB PO SCH ×2 (09:00→09:47)
--- NOTE | 2018-12-14 09:10 | PN ---
Date/Time of Note Date/Time of Note DATE: 12/14/18 TIME: 09:10 Assessment/Plan VTE Prophylaxis Risk score (from Ns)>0 risk: 10 SCD applied (from Nsg): Yes Pharmacological prophylaxis: other Lines/Catheters IV Catheter Type (from Nrsg): PICC Line Central line still needed: Yes Urinary Cath still in place: No Assessment/Plan Assessment/Plan 1. Septic R knee joint s/p irrigation and debridement of right knee arthroplasty 12/05/18 - Patient states current bed is worsening her back pain which is affecting her ambulation - Ortho on board and recommendations appreciated. Continue IV antibiotics until 01/18 then will need to continue PO antibiotics for 3-6 months - pain control 2. 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 Chronic spinal disease - h/o significant stenosis of her spine. Lumbar spine and thoracic spine CT show signs of stenosis though no acute fractures. 4. osteoarthritis - pain control 5. urinary tract infection: - Cultures growing ecoli and lactobacillus - asymptomatic but with incontinence 6. Strep Bacteremia - continue current antibiotics - repeat cultures negative 7. Mechanical fall - s/p stable removal from scalp 8. Disposition - CM on board for SNF placement Result Diagram: 12/10/18 0447 12/12/18 0450 Subjective 24 Hr Interval Summary Free Text/Dictation Patient is complaining that the air mattress is making her back hurt worse which is affecting her ambulation. Discussed importance of air mattress given sacral wound. son at bedside and plan of care discussed. Exam/Review of Systems Exam Vitals Vital Signs Date Temp Pulse Resp B/P (MAP) Pulse Ox O2 O2 Flow FiO2 Time Delivery Rate 12/14/18 98.2 72 19 122/62 96 07:39 (82) 12/13/18 21 19:41 12/13/18 Room Air 07:39 Intake and Output 12/13/18 12/13/18 12/14/18 1515:00 23:00 07:00 IntakeIntake Total 250 ml 920 ml 300 ml OutputOutput Total 2 ml BalanceBalance 250 ml 918 ml 300 ml Exam General: Patient laying in bed, no acute distress. answering questions appropriately Neck: Supple Respiratory: Clear to auscultation bilaterally. no wheezing or rhonchi Cardiovascular: regular rate and rhythm, no obvious murmurs Gastrointestinal: soft, non-tender to palpation, bowel sounds heard. Ext: Moves all extremities spontaneously. right knee dressing in place without discharge or drainage Medications Medication Current Medications Albuterol (Ventolin Hfa) 2 puff Q4H PRN INH WHEEZING AND SOB; Start 12/01/18 at 21:00 Ascorbic Acid (Vitamin C) 500 mg BID PO Last administered on 12/13/18 20:21; Admin Dose 500 MG; Start 12/01/18 at 21:00 Bupropion HCl (Wellbutrin Xl) 300 mg DAILY PO Last administered on 12/13/18 09:08; Admin Dose 300 MG; Start 12/02/18 at 09:00 Cholecalciferol (Vitamin D) 1,000 unit DAILY PO Last administered on 12/13/18 09:07; Admin Dose 1,000 UNIT; Start 12/02/18 at 09:00 Diclofenac Sodium (Voltaren 1% Gel) 2 gm TID PRN TP PAIN; Start 12/01/18 at 21:00 Levothyroxine Sodium (Synthroid) 100 mcg BEFORE BREAKFAST PO Last administered on 12/14/18 06:14; Admin Dose 100 MCG; Start 12/02/18 at 07:00 Lisinopril (Zestril) 5 mg DAILY PO Last administered on 12/13/18 09:12; Admin Dose 5 MG; Start 12/02/18 at 09:00 Magnesium Hydroxide (Milk Of Mag) 30 ml DAILY PRN PO CONSTIPATION; Start 12/01/18 at 21:00 Multivitamins Therapeutic (Theragran) 1 tab DAILY PO Last administered on 12/13/18 09:07; Admin Dose 1 TAB; Start 12/02/18 at 09:00 Sodium Biphosphate/ Sodium Phosphate (Fleet Enema) 133 ml DAILY PRN [place] CONSTIPATION; Start 12/01/18 at 21:00 Polyethylene Glycol (Miralax) 17 gm DAILY PO Last administered on 12/08/18 10:15; Admin Dose 17 GM; Start 12/02/18 at 09:00 Senna (Senokot) 1 tab BID PO Last administered on 12/11/18 21:08; Admin Dose 1 TAB; Start 12/01/18 at 21:00 Vitamin B Complex/ Vitamin C (Berocca) 1 cap DAILY PO Last administered on 12/13/18 09:07; Admin Dose 1 CAP; Start 12/02/18 at 09:00 Arformoterol Tartrate (Brovana (Neb)) 2 ml BID RESP THERAPY INH Last administered on 12/13/18 19:41; Admin Dose 2 ML; Start 12/01/18 at 22:30 Fish Oil (Fish Oil) 1,000 mg DAILY PO Last administered on 12/13/18 09:07; Admin Dose 1,000 MG; Start 12/02/18 at 09:00 IV Flush (NS 3 ml) 3 ml PER PROTOCOL IV ; Start 12/01/18 at 22:00 Docusate Sodium (Colace) 100 mg Q12H PRN PO .CONSTIPATION; Start 12/01/18 at 22:00 Bisacodyl (Dulcolax) 5 mg DAILY PRN PO .CONSTIPATION; Start 12/01/18 at 22:00 Budesonide (Pulmicort (Neb)) 0.5 mg Q12H RESP THERAPY INH Last administered on 12/13/18 08:47; Admin Dose 0.5 MG; Start 12/01/18 at 23:00 Miscellaneous Information (Pending Santyl Order For Wound Care) This patient ruano... PRN PRN XX WOUND CARE; Start 12/02/18 at 00:00 Collagenase (Santyl) 1 applic BID TOP Last administered on 12/13/18 20:21; Admin Dose 1 APPLIC; Start 12/02/18 at 11:30 Lidocaine (Xylocaine 1% (Mpf)) 30 ml ONCE PRN INJ aspiration ; Start 12/04/18 at 17:30 IV Flush (NS 3 ml) 3 ml PER PROTOCOL IV ; Start 12/05/18 at 21:30 Oxycodone HCl (Roxicodone) 15 mg Q4H PRN PO .PAIN Last administered on 12/13/18 22:17; Admin Dose 15 MG; Start 12/05/18 at 21:30 Oxycodone HCl (Roxicodone) 10 mg Q4H PRN PO .PAIN Last administered on 12/07/18 02:36; Admin Dose 10 MG; Start 12/05/18 at 21:30 Oxycodone HCl (Roxicodone) 5 mg Q4H PRN PO .PAIN; Start 12/05/18 at 21:30 Hydromorphone HCl (Dilaudid) 1 mg Q3H PRN IV .BREAKTHROUGH PAIN Last administered on 12/06/18 06:58; Admin Dose 1 MG; Start 12/05/18 at 21:30 Acetaminophen (Tylenol Tab) 1,000 mg Q8 PO Last administered on 12/14/18 06:14; Admin Dose 1,000 MG; Start 12/06/18 at 22:00 Ondansetron HCl (Zofran Inj) 4 mg Q4H PRN IV NAUSEA/VOMITING; Start 12/06/18 at 21:30 Gabapentin (Neurontin) 300 mg QHS PO Last administered on 12/13/18 20:21; Admin Dose 300 MG; Start 12/06/18 at 21:00 Pantoprazole (Protonix Tab) 40 mg DAILY@06 PO Last administered on 12/14/18 06:14; Admin Dose 40 MG; Start 12/07/18 at 06:00 Simethicone (Mylicon) 80 mg TID PRN PO .GAS; Start 12/05/18 at 21:30 Senna/Docusate Sodium (Senokot-S) 2 tab BID PRN PO .CONSTIPATION Last administered on 12/06/18 08:54; Admin Dose 2 TAB; Start 12/05/18 at 21:30 Magnesium Hydroxide (Milk Of Mag) 30 ml HS PRN PO .CONSTIPATION; Start 12/05/18 at 21:30 Bisacodyl (Dulcolax Supp) 10 mg DAILY PRN [place] .CONSTIPATION; Start 12/05/18 at 21:30 Sodium Biphosphate/ Sodium Phosphate (Fleet Enema) 133 ml DAILY PRN MA .CONSTIPATION; Start 12/05/18 at 21:30 Diphenhydramine HCl (Benadryl) 25 mg Q4H PRN IV .ITCHING; Start 12/05/18 at 21:30 Naloxone HCl (Narcan) 0.2 mg Q2M PRN IV .RESP RATE; Start 12/05/18 at 21:30 Bethanechol Chloride (Urecholine) 25 mg URINARY CATH D/C PRN PO UNABLE TO VOID; Start 12/05/18 at 21:30 Aspirin (Halfprin) 81 mg BID PO Last administered on 12/13/18 20:21; Admin Dose 81 MG; Start 12/06/18 at 09:00 Naloxone HCl (Narcan) 0.2 mg Q2M PRN IV .RESP RATE; Start 12/05/18 at 21:30 Vancomycin HCl (Vanco Iv Per Pharmacy) VANCOMYCIN PER PHARMACY PER PROTOCOL XX ; Start 12/11/18 at 11:30 Sodium Hypochlorite (Dakins Diluted ()) 1 applic BID TP Last administered on 12/13/18at 20:22; Admin Dose 1 APPLIC; Start 12/12/18 at 21:00 Nystatin (Nystatin Powder) 1 applic BID TOP Last administered on 12/13/18at 20:22; Admin Dose 1 APPLIC; Start 12/12/18 at 21:00 Vancomycin HCl 1.25 gm/Sodium Chloride 250 ml @ 83.333 mls/ hr Q12H IVPB Last administered on 12/14/18at 03:03; Admin Dose 83.333 MLS/HR; Start 12/13/18 at 14:00 Cefepime HCl 50 ml @ 100 mls/hr Q12 IVPB Last administered on 12/13/18at 20:20; Admin Dose 100 MLS/HR; Start 12/13/18 at 21:00 BALTAZAR BARAJAS MD Dec 14, 2018 09:10
[2018-12-14] MEDS: FISH OIL 1,000 MG CAP PO SCH (09:45)
[2018-12-14] MEDS: BUPROPION (XL) 150 MG TAB PO SCH (09:45)
[2018-12-14] MEDS: VITAMIN B COMPLEX/VIT C CAP PO SCH (09:45)
[2018-12-14] MEDS: MULTIVITAMINS THERAPEUTIC TAB PO SCH (09:45)
[2018-12-14] MEDS: CHOLECALCIFEROL 1,000 UNIT TAB PO SCH (09:46)
[2018-12-14] MEDS: ASCORBIC ACID 500 MG TAB PO SCH ×2 (09:46→21:46)
[2018-12-14] MEDS: ASPIRIN (EC) 81 MG TAB PO SCH ×2 (09:46→21:46)
[2018-12-14] MEDS: CEFEPIME 1GM/50 ML (PMX) 50 ML IVPB SCH ×2 (09:48→21:46)
[2018-12-14] MEDS: COLLAGENASE 5 GM (UD JAR) TOP SCH ×2 (12:45→21:52)
[2018-12-14] MEDS: DAKINS 0.0125%(1/40) 473 ML SOLUTION TP SCH ×2 (12:45→21:53)
--- NOTE | 2018-12-14 14:42 | CONS ---
Assessment/Plan Assessment/Plan Hospital Course (Demo Recall) No acute changes Antimicrobials: Vancomycin and cefepime Microbiology: Blood culture on admission grew strep, urine culture grew E. coli, MRSA swab negative, repeat blood cultures negative. Sacral wound cx + MRSA/Proteus/Strep 2D echo revealed no vegetations Physical examination: This is well-developed well-nourished elderly woman who is alert in no distress. Head atraumatic normocephalic neck is supple. Chest rise symmetrical breath sounds clear. Heart: S1-S2. Abdomen soft, bowel tones present. Extremities with right knee erythema and swelling Assessment: 1. Status post sepsis, present on admission 2. Streptococcal bacteremia 2 to 3. 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 Urinary tract infection 5. History of left total knee replacement 6. History of multilevel discectomy and posterior fusion from L1-L3, please see CT in the chart Plan: Continue on current abx for 2 weeks, then change to IV Rocephin for 6 weeks till January 18, f/u ortho rec-s Consultation Date/Type/Reason Admit Date/Time Dec 01, 2018 at 19:24 Initial Consult Date Type of Consult id Date/Time of Note DATE: 12/14/18 TIME: 14:41 Exam/Review of Systems Exam Vitals Vital Signs Date Temp Pulse Resp B/P (MAP) Pulse Ox O2 O2 Flow FiO2 Time Delivery Rate 12/14/18 98.2 72 19 122/62 96 07:39 (82) 12/13/18 21 19:41 12/13/18 Room Air 07:39 Intake and Output 12/13/18 12/13/18 12/14/18 1515:00 23:00 07:00 IntakeIntake Total 250 ml 920 ml 300 ml OutputOutput Total 2 ml BalanceBalance 250 ml 918 ml 300 ml Results Result Diagram: 12/10/18 0447 12/12/18 0450 Medications Medication Current Medications Albuterol (Ventolin Hfa) 2 puff Q4H PRN INH WHEEZING AND SOB; Start 12/01/18 at 21:00 Ascorbic Acid (Vitamin C) 500 mg BID PO Last administered on 12/14/18at 09:46; Admin Dose 500 MG; Start 12/01/18 at 21:00 Bupropion HCl (Wellbutrin Xl) 300 mg DAILY PO Last administered on 12/14/18 09:45; Admin Dose 300 MG; Start 12/02/18 at 09:00 Cholecalciferol (Vitamin D) 1,000 unit DAILY PO Last administered on 12/14/18 09:46; Admin Dose 1,000 UNIT; Start 12/02/18 at 09:00 Diclofenac Sodium (Voltaren 1% Gel) 2 gm TID PRN TP PAIN; Start 12/01/18 at 21:00 Levothyroxine Sodium (Synthroid) 100 mcg BEFORE BREAKFAST PO Last administered on 12/14/18 06:14; Admin Dose 100 MCG; Start 12/02/18 at 07:00 Lisinopril (Zestril) 5 mg DAILY PO Last administered on 12/13/18 09:12; Admin Dose 5 MG; Start 12/02/18 at 09:00 Magnesium Hydroxide (Milk Of Mag) 30 ml DAILY PRN PO CONSTIPATION; Start 12/01/18 at 21:00 Multivitamins Therapeutic (Theragran) 1 tab DAILY PO Last administered on 12/14 09:45; Admin Dose 1 TAB; Start 12/02/18 at 09:00 Sodium Biphosphate/ Sodium Phosphate (Fleet Enema) 133 ml DAILY PRN [place] CONSTIPATION; Start 12/01/18 at 21:00 Polyethylene Glycol (Miralax) 17 gm DAILY PO Last administered on 12/08/18 10:15; Admin Dose 17 GM; Start 12/02/18 at 09:00 Senna (Senokot) 1 tab BID PO Last administered on 12/11/18 21:08; Admin Dose 1 TAB; Start 12/01/18 at 21:00 Vitamin B Complex/ Vitamin C (Berocca) 1 cap DAILY PO Last administered on 12/14/18 09:45; Admin Dose 1 CAP; Start 12/02/18 at 09:00 Arformoterol Tartrate (Brovana (Neb)) 2 ml BID RESP THERAPY INH Last administered on 12/13/18 19:41; Admin Dose 2 ML; Start 12/01/18 at 22:30 Fish Oil (Fish Oil) 1,000 mg DAILY PO Last administered on 12/14/18 09:45; Admin Dose 1,000 MG; Start 12/02/18 at 09:00 IV Flush (NS 3 ml) 3 ml PER PROTOCOL IV ; Start 12/01/18 at 22:00 Docusate Sodium (Colace) 100 mg Q12H PRN PO .CONSTIPATION; Start 12/01/18 at 22:00 Bisacodyl (Dulcolax) 5 mg DAILY PRN PO .CONSTIPATION; Start 12/01/18 at 22:00 Budesonide (Pulmicort (Neb)) 0.5 mg Q12H RESP THERAPY INH Last administered on 12/13/18 08:47; Admin Dose 0.5 MG; Start 12/01/18 at 23:00 Miscellaneous Information (Pending Santyl Order For Wound Care) This patient ruano... PRN PRN XX WOUND CARE; Start 12/02/18 at 00:00 Collagenase (Santyl) 1 applic BID TOP Last administered on 12/14/18at 12:45; Admin Dose 1 APPLIC; Start 12/02/18 at 11:30 Lidocaine (Xylocaine 1% (Mpf)) 30 ml ONCE PRN INJ aspiration ; Start 12/04/18 at 17:30 IV Flush (NS 3 ml) 3 ml PER PROTOCOL IV ; Start 12/05/18 at 21:30 Oxycodone HCl (Roxicodone) 15 mg Q4H PRN PO .PAIN Last administered on 12/13/18 22:17; Admin Dose 15 MG; Start 12/05/18 at 21:30 Oxycodone HCl (Roxicodone) 10 mg Q4H PRN PO .PAIN Last administered on 12/07/18at 02:36; Admin Dose 10 MG; Start 12/05/18 at 21:30 Oxycodone HCl (Roxicodone) 5 mg Q4H PRN PO .PAIN; Start 12/05/18 at 21:30 Hydromorphone HCl (Dilaudid) 1 mg Q3H PRN IV .BREAKTHROUGH PAIN Last administered on 12/06/18at 06:58; Admin Dose 1 MG; Start 12/05/18 at 21:30 Acetaminophen (Tylenol Tab) 1,000 mg Q8 PO Last administered on 12/14/18at 14:32; Admin Dose 1,000 MG; Start 12/06/18 at 22:00 Ondansetron HCl (Zofran Inj) 4 mg Q4H PRN IV NAUSEA/VOMITING; Start 12/06/18 at 21:30 Gabapentin (Neurontin) 300 mg QHS PO Last administered on 12/13/18at 20:21; Admin Dose 300 MG; Start 12/06/18 at 21:00 Pantoprazole (Protonix Tab) 40 mg DAILY@06 PO Last administered on 12/14/18at 09:46; Admin Dose 40 MG; Start 12/07/18 at 06:00 Simethicone (Mylicon) 80 mg TID PRN PO .GAS; Start 12/05/18 at 21:30 Senna/Docusate Sodium (Senokot-S) 2 tab BID PRN PO .CONSTIPATION Last administered on 12/06/18at 08:54; Admin Dose 2 TAB; Start 12/05/18 at 21:30 Magnesium Hydroxide (Milk Of Mag) 30 ml HS PRN PO .CONSTIPATION; Start 12/05/18 at 21:30 Bisacodyl (Dulcolax Supp) 10 mg DAILY PRN RI .CONSTIPATION; Start 12/05/18 at 21:30 Sodium Biphosphate/ Sodium Phosphate (Fleet Enema) 133 ml DAILY PRN RI .CONSTIPATION; Start 12/05/18 at 21:30 Diphenhydramine HCl (Benadryl) 25 mg Q4H PRN IV .ITCHING; Start 12/05/18 at 21:30 Naloxone HCl (Narcan) 0.2 mg Q2M PRN IV .RESP RATE; Start 12/05/18 at 21:30 Bethanechol Chloride (Urecholine) 25 mg URINARY CATH D/C PRN PO UNABLE TO VOID; Start 12/05/18 at 21:30 Aspirin (Halfprin) 81 mg BID PO Last administered on 12/14/18at 09:46; Admin Dose 81 MG; Start 12/06/18 at 09:00 Naloxone HCl (Narcan) 0.2 mg Q2M PRN IV .RESP RATE; Start 12/05/18 at 21:30 Vancomycin HCl (Vanco Iv Per Pharmacy) VANCOMYCIN PER PHARMACY PER PROTOCOL XX ; Start 12/11/18 at 11:30 Sodium Hypochlorite (Dakins Diluted (40)) 1 applic BID TP Last administered on 12/14/18at 12:45; Admin Dose 1 APPLIC; Start 12/12/18 at 21:00 Nystatin (Nystatin Powder) 1 applic BID TOP Last administered on 12/13/18at 20:22; Admin Dose 1 APPLIC; Start 12/12/18 at 21:00 Vancomycin HCl 1.25 gm/Sodium Chloride 250 ml @ 83.333 mls/ hr Q12H IVPB Last administered on 12/14/18at 03:03; Admin Dose 83.333 MLS/HR; Start 12/13/18 at 14:00 Cefepime HCl 50 ml @ 100 mls/hr Q12 IVPB Last administered on 12/14/18at 09:48; Admin Dose 100 MLS/HR; Start 12/13/18 at 21:00 OZZIE SOLOMON NP Dec 14, 2018 14:42
[2018-12-14 15:04] VITALS: BP 122/59; PULSE 82; RESP 18
[2018-12-14] MEDS: oxyCODONE 5 MG TAB PO PRN (16:43)
[2018-12-14] MEDS: NYSTATIN 30 GM POWDER BTL TOP SCH ×2 (18:10→21:53)
[2018-12-14 19:40] VITALS: BP 122/80; PULSE 79; RESP 18
[2018-12-14] MEDS: GABAPENTIN 300 MG CAP PO SCH (21:46)
[2018-12-15] MEDS: oxyCODONE 5 MG TAB PO PRN ×3 (00:16→22:20)
[2018-12-15 01:34] VITALS: BP 138/66; PULSE 77; RESP 18
[2018-12-15] MEDS: VANCOMYCIN HCL 1.25 GM in SOD CHLORIDE 0.9% 250 ML IVPB SCH ×2 (05:18→17:17)
[2018-12-15] MEDS: LEVOTHYROXINE 100 MCG TAB PO SCH (06:24)
[2018-12-15] MEDS: ACETAMINOPHEN 500 MG TAB PO SCH ×3 (06:24→22:19)
[2018-12-15] MEDS: PANTOPRAZOLE (EC) 40 MG TAB PO SCH (06:25)
[2018-12-15 07:36] VITALS: BP 131/73; PULSE 72; RESP 16
[2018-12-15] MEDS: SENNA TAB PO SCH ×2 (09:00→20:43)
[2018-12-15] MEDS: POLYETHYLENE GLYCOL 17 GM PACKET PO SCH ×2 (09:00→09:23)
[2018-12-15] MEDS ORDERED: POTASSIUM CHLORIDE (SR) 20 MEQ TAB PO STA (09:08)
[2018-12-15] MEDS: COLLAGENASE 5 GM (UD JAR) TOP SCH ×2 (09:23→22:21)
[2018-12-15] MEDS: VITAMIN B COMPLEX/VIT C CAP PO SCH (09:23)
[2018-12-15] MEDS: ASPIRIN (EC) 81 MG TAB PO SCH ×2 (09:23→20:43)
[2018-12-15] MEDS: MULTIVITAMINS THERAPEUTIC TAB PO SCH (09:23)
[2018-12-15] MEDS: CHOLECALCIFEROL 1,000 UNIT TAB PO SCH (09:23)
[2018-12-15] MEDS: ASCORBIC ACID 500 MG TAB PO SCH ×2 (09:23→20:43)
[2018-12-15] MEDS: FISH OIL 1,000 MG CAP PO SCH (09:23)
[2018-12-15] MEDS: BUPROPION (XL) 150 MG TAB PO SCH (09:24)
[2018-12-15] MEDS: DAKINS 0.0125%(1/40) 473 ML SOLUTION TP SCH ×2 (09:25→22:21)
[2018-12-15] MEDS: LISINOPRIL 5 MG TAB PO SCH (09:25)
[2018-12-15] MEDS: NYSTATIN 30 GM POWDER BTL TOP SCH ×2 (09:25→22:21)
[2018-12-15] MEDS: CEFEPIME 1GM/50 ML (PMX) 50 ML IVPB SCH ×2 (09:25→20:43)
[2018-12-15] MEDS: ARFORMOTEROL TARTRATE 15MCG/2 ML AMP INH SCH (10:46)
[2018-12-15] MEDS: BUDESONIDE (NEB) 0.5MG/2ML AMP INH SCH (10:47)
[2018-12-15] MEDS ORDERED: ALBUTEROL 0.083% (NEB) 2.5 MG/3 ML AMP HHN PRN (12:00)
[2018-12-15] MEDS: LIDOCAINE 5% PATCH TD SCH (12:27)
--- NOTE | 2018-12-15 14:27 | CONS ---
Assessment/Plan Assessment/Plan Hospital Course (Demo Recall) No acute changes Alert, feels good Antimicrobials: Vancomycin and cefepime Microbiology: Blood culture on admission grew strep, urine culture grew E. coli, MRSA swab negative, repeat blood cultures negative. Sacral wound cx + MRSA/Proteus/Strep 2D echo revealed no vegetations Physical examination: This is well-developed well-nourished elderly woman who is alert in no distress. Head atraumatic normocephalic neck is supple. Chest rise symmetrical breath sounds clear. Heart: S1-S2. Abdomen soft, bowel tones present. Extremities with right knee erythema and swelling Assessment: 1. Status post sepsis, present on admission 2. Streptococcal bacteremia 2 to 3. 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 Urinary tract infection 5. History of left total knee replacement 6. History of multilevel discectomy and posterior fusion from L1-L3, please see CT in the chart Plan: Stable, continue on current abx to complete 2 weeks, then change to IV Rocephin for 6 weeks till January 18, f/u ortho rec-s Consultation Date/Type/Reason Admit Date/Time Dec 01, 2018 at 19:24 Initial Consult Date Type of Consult id Date/Time of Note DATE: 12/15/18 TIME: 14:26 Exam/Review of Systems Exam Vitals Vital Signs Date Temp Pulse Resp B/P (MAP) Pulse Ox O2 O2 Flow FiO2 Time Delivery Rate 12/15/18 78 15 21 10:46 12/15/18 98.2 131/73 100 Room Air 07:36 (92) Intake and Output 12/14/18 12/14/18 12/15/18 1515:00 23:00 07:00 IntakeIntake Total 50 ml 1120 ml BalanceBalance 50 ml 1120 ml Results Result Diagram: 12/15/18 0450 12/15/18 0450 Results 24hrs Laboratory Tests Test 12/15/18 04:50 White Blood Count 5.7 # Red Blood Count 3.63 L Hemoglobin 9.7 L Hematocrit 31.9 L Mean Corpuscular Volume 87.9 Mean Corpuscular Hemoglobin 26.7 L Mean Corpuscular Hemoglobin Concent 30.4 L Red Cell Distribution Width 17.3 H Platelet Count 412 Mean Platelet Volume 9.5 Immature Granulocytes % 1.100 H Neutrophils % 57.2 Lymphocytes % 25.2 Monocytes % 12.5 H Eosinophils % 2.8 Basophils % 1.2 Nucleated Red Blood Cells % 0.0 Immature Granulocytes # 0.060 H Neutrophils # 3.3 Lymphocytes # 1.4 Monocytes # 0.7 Eosinophils # 0.2 Basophils # 0.1 Nucleated Red Blood Cells # 0.0 Sodium Level 144 Potassium Level 3.6 Chloride Level 109 Carbon Dioxide Level 28 Anion Gap 7 Blood Urea Nitrogen 11 Creatinine 0.50 Glucose Level 101 Calcium Level 8.7 Phosphorus Level 4.2 Magnesium Level 2.1 Albumin 3.0 L Medications Medication Current Medications Albuterol (Ventolin Hfa) 2 puff Q4H PRN INH WHEEZING AND SOB; Start 12/01/18 at 21:00; Status Hold Ascorbic Acid (Vitamin C) 500 mg BID PO Last administered on 12/15/18 09:23; Admin Dose 500 MG; Start 12/01/18 at 21:00 Bupropion HCl (Wellbutrin Xl) 300 mg DAILY PO Last administered on 12/15/18 09:24; Admin Dose 300 MG; Start 12/02/18 at 09:00 Cholecalciferol (Vitamin D) 1,000 unit DAILY PO Last administered on 12/15/18 09:23; Admin Dose 1,000 UNIT; Start 12/02/18 at 09:00 Diclofenac Sodium (Voltaren 1% Gel) 2 gm TID PRN TP PAIN; Start 12/01/18 at 21:00 Levothyroxine Sodium (Synthroid) 100 mcg BEFORE BREAKFAST PO Last administered on 12/15/18 06:24; Admin Dose 100 MCG; Start 12/02/18 at 07:00 Lisinopril (Zestril) 5 mg DAILY PO Last administered on 12/15/18 09:25; Admin Dose 5 MG; Start 12/02/18 at 09:00 Magnesium Hydroxide (Milk Of Mag) 30 ml DAILY PRN PO CONSTIPATION; Start 12/01/18 at 21:00 Multivitamins Therapeutic (Theragran) 1 tab DAILY PO Last administered on 12/15/18 09:23; Admin Dose 1 TAB; Start 12/02/18 at 09:00 Sodium Biphosphate/ Sodium Phosphate (Fleet Enema) 133 ml DAILY PRN [place] CONSTIPATION; Start 12/01/18 at 21:00 Polyethylene Glycol (Miralax) 17 gm DAILY PO Last administered on 12/08/18 10:15; Admin Dose 17 GM; Start 12/02/18 at 09:00 Senna (Senokot) 1 tab BID PO Last administered on 12/11/18 21:08; Admin Dose 1 TAB; Start 12/01/18 at 21:00 Vitamin B Complex/ Vitamin C (Berocca) 1 cap DAILY PO Last administered on 12/15/18 09:23; Admin Dose 1 CAP; Start 12/02/18 at 09:00 Fish Oil (Fish Oil) 1,000 mg DAILY PO Last administered on 12/15/18 09:23; Admin Dose 1,000 MG; Start 12/02/18 at 09:00 IV Flush (NS 3 ml) 3 ml PER PROTOCOL IV ; Start 12/01/18 at 22:00 Docusate Sodium (Colace) 100 mg Q12H PRN PO .CONSTIPATION; Start 12/01/18 at 22:00 Bisacodyl (Dulcolax) 5 mg DAILY PRN PO .CONSTIPATION; Start 12/01/18 at 22:00 Miscellaneous Information (Pending Santyl Order For Wound Care) This patient ruano... PRN PRN XX WOUND CARE; Start 12/02/18 at 00:00 Collagenase (Santyl) 1 applic BID TOP Last administered on 12/15/18 09:23; Admin Dose 1 APPLIC; Start 12/02/18 at 11:30 Lidocaine (Xylocaine 1% (Mpf)) 30 ml ONCE PRN INJ aspiration ; Start 12/04/18 at 17:30 IV Flush (NS 3 ml) 3 ml PER PROTOCOL IV ; Start 12/05/18 at 21:30 Oxycodone HCl (Roxicodone) 15 mg Q4H PRN PO .PAIN Last administered on 12/15/18 12:28; Admin Dose 15 MG; Start 12/05/18 at 21:30 Oxycodone HCl (Roxicodone) 10 mg Q4H PRN PO .PAIN Last administered on 12/07/18 02:36; Admin Dose 10 MG; Start 12/05/18 at 21:30 Oxycodone HCl (Roxicodone) 5 mg Q4H PRN PO .PAIN; Start 12/05/18 at 21:30 Hydromorphone HCl (Dilaudid) 1 mg Q3H PRN IV .BREAKTHROUGH PAIN Last administered on 12/06/18 06:58; Admin Dose 1 MG; Start 12/05/18 at 21:30 Acetaminophen (Tylenol Tab) 1,000 mg Q8 PO Last administered on 12/15/18 14:17; Admin Dose 1,000 MG; Start 12/06/18 at 22:00 Ondansetron HCl (Zofran Inj) 4 mg Q4H PRN IV NAUSEA/VOMITING; Start 12/06/18 at 21:30 Gabapentin (Neurontin) 300 mg QHS PO Last administered on 12/14/18 21:46; Admin Dose 300 MG; Start 12/06/18 at 21:00 Pantoprazole (Protonix Tab) 40 mg DAILY@06 PO Last administered on 12/15/18 06:25; Admin Dose 40 MG; Start 12/07/18 at 06:00 Simethicone (Mylicon) 80 mg TID PRN PO .GAS; Start 12/05/18 at 21:30 Senna/Docusate Sodium (Senokot-S) 2 tab BID PRN PO .CONSTIPATION Last administered on 12/06/18 08:54; Admin Dose 2 TAB; Start 12/05/18 at 21:30 Magnesium Hydroxide (Milk Of Mag) 30 ml HS PRN PO .CONSTIPATION; Start 12/05/18 at 21:30 Bisacodyl (Dulcolax Supp) 10 mg DAILY PRN [place] .CONSTIPATION; Start 12/05/18 at 21:30 Sodium Biphosphate/ Sodium Phosphate (Fleet Enema) 133 ml DAILY PRN [place] .CONSTIPATION; Start 12/05/18 at 21:30 Diphenhydramine HCl (Benadryl) 25 mg Q4H PRN IV .ITCHING; Start 12/05/18 at 21:30 Naloxone HCl (Narcan) 0.2 mg Q2M PRN IV .RESP RATE; Start 12/05/18 at 21:30 Bethanechol Chloride (Urecholine) 25 mg URINARY CATH D/C PRN PO UNABLE TO VOID; Start 12/05/18 at 21:30 Aspirin (Halfprin) 81 mg BID PO Last administered on 12/15/18 09:23; Admin Dose 81 MG; Start 12/06/18 at 09:00 Naloxone HCl (Narcan) 0.2 mg Q2M PRN IV .RESP RATE; Start 12/05/18 at 21:30 Vancomycin HCl (Vanco Iv Per Pharmacy) VANCOMYCIN PER PHARMACY PER PROTOCOL XX ; Start 12/11/18 at 11:30 Sodium Hypochlorite (Dakins Diluted ()) 1 applic BID TP Last administered on 12/15/18 09:25; Admin Dose 1 APPLIC; Start 12/12/18 at 21:00 Nystatin (Nystatin Powder) 1 applic BID TOP Last administered on 12/15/18at 09:25; Admin Dose 1 APPLIC; Start 12/12/18 at 21:00 Cefepime HCl 50 ml @ 100 mls/hr Q12 IVPB Last administered on 12/15/18 09:25; Admin Dose 100 MLS/HR; Start 12/13/18 at 21:00 Vancomycin HCl 1.25 gm/Sodium Chloride 250 ml @ 83.333 mls/ hr Q12H IVPB Last administered on 12/15/18at 05:18; Admin Dose 83.333 MLS/HR; Start 12/14/18 at 17:00 Albuterol (Proventil 0.083% (Neb)) 2.5 mg Q2H RESP THERAPY PRN HHN SHORTNESS OF BREATH; Start 12/15/18 at 12:00 Lidocaine (Lidoderm) 1 patch DAILY TD Last administered on 12/15/18at 12:27; Admin Dose 1 PATCH; Start 12/15/18 at 12:00 Miscellaneous Information (*Rx Drug Level Order Reminder*) VANCO TR LEVEL PRIOR... 0400 ONCE XX ; Start 12/16/18 at 04:00; Stop 12/16/18 at 04:01 OZZIE SOLOMON NP Dec 15, 2018 14:27
--- NOTE | 2018-12-15 14:59 | PN ---
Date/Time of Note Date/Time of Note DATE: 12/15/18 TIME: 14:56 Assessment/Plan VTE Prophylaxis Risk score (from Ns)>0 risk: 10 SCD applied (from Nsg): Yes Pharmacological prophylaxis: other Lines/Catheters IV Catheter Type (from Nrsg): PICC Line Central line still needed: Yes Urinary Cath still in place: No Assessment/Plan Assessment/Plan 1. Septic R knee joint s/p irrigation and debridement of right knee arthroplasty 12/05/18 - Ortho on board and recommendations appreciated. Continue IV antibiotics until 01/18 then will need to continue PO antibiotics for 3-6 months - pain control 2. 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 Chronic spinal disease - mild discomfort given aerobed was aggravating her back pain. 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 Lumbar spine and thoracic spine CT show signs of stenosis though no acute fractures. 4. osteoarthritis - pain control 5. urinary tract infection: - Cultures growing ecoli and lactobacillus - asymptomatic 6. Strep Bacteremia - continue current antibiotics - repeat cultures negative 7. Mechanical fall - s/p stable removal from scalp 8. Disposition - CM on board for SNF placement Result Diagram: 12/15/18 0450 12/15/18 0450 Results 24hrs Laboratory Tests Test 12/15/18 04:50 White Blood Count 5.7 # Red Blood Count 3.63 L Hemoglobin 9.7 L Hematocrit 31.9 L Mean Corpuscular Volume 87.9 Mean Corpuscular Hemoglobin 26.7 L Mean Corpuscular Hemoglobin Concent 30.4 L Red Cell Distribution Width 17.3 H Platelet Count 412 Mean Platelet Volume 9.5 Immature Granulocytes % 1.100 H Neutrophils % 57.2 Lymphocytes % 25.2 Monocytes % 12.5 H Eosinophils % 2.8 Basophils % 1.2 Nucleated Red Blood Cells % 0.0 Immature Granulocytes # 0.060 H Neutrophils # 3.3 Lymphocytes # 1.4 Monocytes # 0.7 Eosinophils # 0.2 Basophils # 0.1 Nucleated Red Blood Cells # 0.0 Sodium Level 144 Potassium Level 3.6 Chloride Level 109 Carbon Dioxide Level 28 Anion Gap 7 Blood Urea Nitrogen 11 Creatinine 0.50 Glucose Level 101 Calcium Level 8.7 Phosphorus Level 4.2 Magnesium Level 2.1 Albumin 3.0 L Subjective 24 Hr Interval Summary Free Text/Dictation Patient states she slept better and back pain improving since changed back to regular bed. No acute overnight events. Exam/Review of Systems Exam Vitals Vital Signs Date Temp Pulse Resp B/P (MAP) Pulse Ox O2 O2 Flow FiO2 Time Delivery Rate 12/15/18 78 15 21 10:46 12/15/18 98.2 131/73 100 Room Air 07:36 (92) Intake and Output 12/14/18 12/14/18 12/15/18 1515:00 23:00 07:00 IntakeIntake Total 50 ml 1120 ml BalanceBalance 50 ml 1120 ml Exam General: Patient sitting in chair, no acute distress. answering questions appropriately Neck: Supple Respiratory: Clear to auscultation bilaterally. no wheezing or rhonchi Cardiovascular: regular rate and rhythm, no obvious murmurs Gastrointestinal: soft, non-tender to palpation, bowel sounds heard. Ext: Moves all extremities spontaneously. right knee dressing in place without discharge or drainage Results Results 24hrs Laboratory Tests Test 12/15/18 04:50 White Blood Count 5.7 # Red Blood Count 3.63 L Hemoglobin 9.7 L Hematocrit 31.9 L Mean Corpuscular Volume 87.9 Mean Corpuscular Hemoglobin 26.7 L Mean Corpuscular Hemoglobin Concent 30.4 L Red Cell Distribution Width 17.3 H Platelet Count 412 Mean Platelet Volume 9.5 Immature Granulocytes % 1.100 H Neutrophils % 57.2 Lymphocytes % 25.2 Monocytes % 12.5 H Eosinophils % 2.8 Basophils % 1.2 Nucleated Red Blood Cells % 0.0 Immature Granulocytes # 0.060 H Neutrophils # 3.3 Lymphocytes # 1.4 Monocytes # 0.7 Eosinophils # 0.2 Basophils # 0.1 Nucleated Red Blood Cells # 0.0 Sodium Level 144 Potassium Level 3.6 Chloride Level 109 Carbon Dioxide Level 28 Anion Gap 7 Blood Urea Nitrogen 11 Creatinine 0.50 Glucose Level 101 Calcium Level 8.7 Phosphorus Level 4.2 Magnesium Level 2.1 Albumin 3.0 L Medications Medication Current Medications Albuterol (Ventolin Hfa) 2 puff Q4H PRN INH WHEEZING AND SOB; Start 12/01/18 at 21:00; Status Hold Ascorbic Acid (Vitamin C) 500 mg BID PO Last administered on 12/15/18at 09:23; Admin Dose 500 MG; Start 12/01/18 at 21:00 Bupropion HCl (Wellbutrin Xl) 300 mg DAILY PO Last administered on 12/15/18 09:24; Admin Dose 300 MG; Start 12/02/18 at 09:00 Cholecalciferol (Vitamin D) 1,000 unit DAILY PO Last administered on 12/15/18 09:23; Admin Dose 1,000 UNIT; Start 12/02/18 at 09:00 Diclofenac Sodium (Voltaren 1% Gel) 2 gm TID PRN TP PAIN; Start 12/01/18 at 21:00 Levothyroxine Sodium (Synthroid) 100 mcg BEFORE BREAKFAST PO Last administered on 12/15/18 06:24; Admin Dose 100 MCG; Start 12/02/18 at 07:00 Lisinopril (Zestril) 5 mg DAILY PO Last administered on 12/15/18 09:25; Admin Dose 5 MG; Start 12/02/18 at 09:00 Magnesium Hydroxide (Milk Of Mag) 30 ml DAILY PRN PO CONSTIPATION; Start 12/01/18 at 21:00 Multivitamins Therapeutic (Theragran) 1 tab DAILY PO Last administered on 12/15/18 09:23; Admin Dose 1 TAB; Start 12/02/18 at 09:00 Sodium Biphosphate/ Sodium Phosphate (Fleet Enema) 133 ml DAILY PRN [place] CONSTIPATION; Start 12/01/18 at 21:00 Polyethylene Glycol (Miralax) 17 gm DAILY PO Last administered on 12/08/18 10:15; Admin Dose 17 GM; Start 12/02/18 at 09:00 Senna (Senokot) 1 tab BID PO Last administered on 12/11/18 21:08; Admin Dose 1 TAB; Start 12/01/18 at 21:00 Vitamin B Complex/ Vitamin C (Berocca) 1 cap DAILY PO Last administered on 12/15/18 09:23; Admin Dose 1 CAP; Start 12/02/18 at 09:00 Fish Oil (Fish Oil) 1,000 mg DAILY PO Last administered on 12/15/18 09:23; Admin Dose 1,000 MG; Start 12/02/18 at 09:00 IV Flush (NS 3 ml) 3 ml PER PROTOCOL IV ; Start 12/01/18 at 22:00 Docusate Sodium (Colace) 100 mg Q12H PRN PO .CONSTIPATION; Start 12/01/18 at 22:00 Bisacodyl (Dulcolax) 5 mg DAILY PRN PO .CONSTIPATION; Start 12/01/18 at 22:00 Miscellaneous Information (Pending Santyl Order For Wound Care) This patient ruano... PRN PRN XX WOUND CARE; Start 12/02/18 at 00:00 Collagenase (Santyl) 1 applic BID TOP Last administered on 12/15/18 09:23; Admin Dose 1 APPLIC; Start 12/02/18 at 11:30 Lidocaine (Xylocaine 1% (Mpf)) 30 ml ONCE PRN INJ aspiration ; Start 12/04/18 at 17:30 IV Flush (NS 3 ml) 3 ml PER PROTOCOL IV ; Start 12/05/18 at 21:30 Oxycodone HCl (Roxicodone) 15 mg Q4H PRN PO .PAIN Last administered on 12/15/18 12:28; Admin Dose 15 MG; Start 12/05/18 at 21:30 Oxycodone HCl (Roxicodone) 10 mg Q4H PRN PO .PAIN Last administered on 12/07/18 02:36; Admin Dose 10 MG; Start 12/05/18 at 21:30 Oxycodone HCl (Roxicodone) 5 mg Q4H PRN PO .PAIN; Start 12/05/18 at 21:30 Hydromorphone HCl (Dilaudid) 1 mg Q3H PRN IV .BREAKTHROUGH PAIN Last administered on 12/06/18 06:58; Admin Dose 1 MG; Start 12/05/18 at 21:30 Acetaminophen (Tylenol Tab) 1,000 mg Q8 PO Last administered on 12/15/18 14:17; Admin Dose 1,000 MG; Start 12/06/18 at 22:00 Ondansetron HCl (Zofran Inj) 4 mg Q4H PRN IV NAUSEA/VOMITING; Start 12/06/18 at 21:30 Gabapentin (Neurontin) 300 mg QHS PO Last administered on 12/14/18 21:46; Admin Dose 300 MG; Start 12/06/18 at 21:00 Pantoprazole (Protonix Tab) 40 mg DAILY@06 PO Last administered on 12/15/18 06:25; Admin Dose 40 MG; Start 12/07/18 at 06:00 Simethicone (Mylicon) 80 mg TID PRN PO .GAS; Start 12/05/18 at 21:30 Senna/Docusate Sodium (Senokot-S) 2 tab BID PRN PO .CONSTIPATION Last administered on 12/06/18at 08:54; Admin Dose 2 TAB; Start 12/05/18 at 21:30 Magnesium Hydroxide (Milk Of Mag) 30 ml HS PRN PO .CONSTIPATION; Start 12/05/18 at 21:30 Bisacodyl (Dulcolax Supp) 10 mg DAILY PRN [place] .CONSTIPATION; Start 12/05/18 at 21:30 Sodium Biphosphate/ Sodium Phosphate (Fleet Enema) 133 ml DAILY PRN [place] .CONSTIPATION; Start 12/05/18 at 21:30 Diphenhydramine HCl (Benadryl) 25 mg Q4H PRN IV .ITCHING; Start 12/05/18 at 21:30 Naloxone HCl (Narcan) 0.2 mg Q2M PRN IV .RESP RATE; Start 12/05/18 at 21:30 Bethanechol Chloride (Urecholine) 25 mg URINARY CATH D/C PRN PO UNABLE TO VOID; Start 12/05/18 at 21:30 Aspirin (Halfprin) 81 mg BID PO Last administered on 12/15/18at 09:23; Admin Dose 81 MG; Start 12/06/18 at 09:00 Naloxone HCl (Narcan) 0.2 mg Q2M PRN IV .RESP RATE; Start 12/05/18 at 21:30 Vancomycin HCl (Vanco Iv Per Pharmacy) VANCOMYCIN PER PHARMACY PER PROTOCOL XX ; Start 12/11/18 at 11:30 Sodium Hypochlorite (Dakins Diluted (40)) 1 applic BID TP Last administered on 12/15/18 09:25; Admin Dose 1 APPLIC; Start 12/12/18 at 21:00 Nystatin (Nystatin Powder) 1 applic BID TOP Last administered on 12/15/18 09:25; Admin Dose 1 APPLIC; Start 12/12/18 at 21:00 Cefepime HCl 50 ml @ 100 mls/hr Q12 IVPB Last administered on 12/15/18 09:25; Admin Dose 100 MLS/HR; Start 12/13/18 at 21:00 Vancomycin HCl 1.25 gm/Sodium Chloride 250 ml @ 83.333 mls/ hr Q12H IVPB Last administered on 12/15/18at 05:18; Admin Dose 83.333 MLS/HR; Start 12/14/18 at 17:00 Albuterol (Proventil 0.083% (Neb)) 2.5 mg Q2H RESP THERAPY PRN HHN SHORTNESS OF BREATH; Start 12/15/18 at 12:00 Lidocaine (Lidoderm) 1 patch DAILY TD Last administered on 12/15/18at 12:27; Admin Dose 1 PATCH; Start 12/15/18 at 12:00 Miscellaneous Information (*Rx Drug Level Order Reminder*) VANCO TR LEVEL PRIOR. .. 0400 ONCE XX ; Start 12/16/18 at 04:00; Stop 12/16/18 at 04:01 BALTAZAR BARAJAS MD Dec 15, 2018 14:59
[2018-12-15 15:25] VITALS: BP 126/62; PULSE 83; RESP 14
[2018-12-15 20:02] VITALS: BP 105/55; PULSE 84; RESP 18
[2018-12-15] MEDS: GABAPENTIN 300 MG CAP PO SCH (20:43)
[2018-12-16 02:41] VITALS: BP 123/59; PULSE 71; RESP 18
[2018-12-16] MEDS: ACETAMINOPHEN 500 MG TAB PO SCH ×2 (05:27→13:36)
[2018-12-16] MEDS: PANTOPRAZOLE (EC) 40 MG TAB PO SCH (05:27)
[2018-12-16] MEDS: LEVOTHYROXINE 100 MCG TAB PO SCH (06:33)
[2018-12-16] MEDS: VANCOMYCIN HCL 1.25 GM in SOD CHLORIDE 0.9% 250 ML IVPB SCH ×2 (06:34→17:27)
[2018-12-16 08:29] VITALS: BP 138/65; PULSE 71; RESP 18
[2018-12-16] MEDS: LIDOCAINE 5% PATCH TD SCH (08:42)
[2018-12-16] MEDS: CEFEPIME 1GM/50 ML (PMX) 50 ML IVPB SCH ×2 (08:42→22:01)
[2018-12-16] MEDS: CHOLECALCIFEROL 1,000 UNIT TAB PO SCH (08:43)
[2018-12-16] MEDS: MULTIVITAMINS THERAPEUTIC TAB PO SCH (08:43)
[2018-12-16] MEDS: ASCORBIC ACID 500 MG TAB PO SCH ×2 (08:43→21:46)
[2018-12-16] MEDS: VITAMIN B COMPLEX/VIT C CAP PO SCH (08:43)
[2018-12-16] MEDS: ASPIRIN (EC) 81 MG TAB PO SCH ×2 (08:43→21:46)
[2018-12-16] MEDS: FISH OIL 1,000 MG CAP PO SCH (08:43)
[2018-12-16] MEDS: BUPROPION (XL) 150 MG TAB PO SCH (08:43)
[2018-12-16] MEDS: LISINOPRIL 5 MG TAB PO SCH (08:44)
[2018-12-16] MEDS: COLLAGENASE 5 GM (UD JAR) TOP SCH ×2 (08:44→21:46)
[2018-12-16] MEDS: NYSTATIN 30 GM POWDER BTL TOP SCH ×2 (08:44→21:47)
[2018-12-16] MEDS: DAKINS 0.0125%(1/40) 473 ML SOLUTION TP SCH ×2 (08:45→21:47)
[2018-12-16] MEDS: POLYETHYLENE GLYCOL 17 GM PACKET PO SCH (08:45)
[2018-12-16] MEDS: SENNA TAB PO SCH ×2 (08:46→21:46)
--- NOTE | 2018-12-16 12:56 | CONS ---
Assessment/Plan Assessment/Plan Hospital Course (Demo Recall) No acute changes Alert, feels good Antimicrobials: Vancomycin and cefepime Microbiology: Blood culture on admission grew strep, urine culture grew E. coli, MRSA swab negative, repeat blood cultures negative. Sacral wound cx + MRSA/Proteus/Strep 2D echo revealed no vegetations Physical examination: This is well-developed well-nourished elderly woman who is alert in no distress. Head atraumatic normocephalic neck is supple. Chest rise symmetrical breath sounds clear. Heart: S1-S2. Abdomen soft, bowel tones present. Extremities with right knee erythema and swelling Assessment: 1. Status post sepsis, present on admission 2. Streptococcal bacteremia 2 to #3 3. 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 Urinary tract infection 5. History of left total knee replacement 6. History of multilevel discectomy and posterior fusion from L1-L3, please see CT in the chart Plan: Remains stable, continue on current abx to complete 2 weeks, then change to IV Rocephin for 6 weeks till January 18, pending SNF Consultation Date/Type/Reason Admit Date/Time Dec 01, 2018 at 19:24 Initial Consult Date Type of Consult id Date/Time of Note DATE: 12/16/18 TIME: 12:55 Exam/Review of Systems Exam Vitals Vital Signs Date Temp Pulse Resp B/P (MAP) Pulse Ox O2 O2 Flow FiO2 Time Delivery Rate 12/16/18 98.0 71 18 138/65 96 Room Air 08:29 (89) 12/15/18 21 10:46 Intake and Output 12/15/18 12/15/18 12/16/18 1515:00 23:00 07:00 IntakeIntake Total 600 ml 950 ml 300 ml BalanceBalance 600 ml 950 ml 300 ml Results Result Diagram: 12/15/18 0450 12/15/18 0450 Results 24hrs Laboratory Tests Test 12/16/18 04:27 Vancomycin Level Trough 14.9 Medications Medication Current Medications Albuterol (Ventolin Hfa) 2 puff Q4H PRN INH WHEEZING AND SOB; Start 12/01/18 at 21:00; Status Hold Ascorbic Acid (Vitamin C) 500 mg BID PO Last administered on 12/16/18at 08:43; Admin Dose 500 MG; Start 12/01/18 at 21:00 Bupropion HCl (Wellbutrin Xl) 300 mg DAILY PO Last administered on 12/16/18 08:43; Admin Dose 300 MG; Start 12/02/18 at 09:00 Cholecalciferol (Vitamin D) 1,000 unit DAILY PO Last administered on 12/16/18 08:43; Admin Dose 1,000 UNIT; Start 12/02/18 at 09:00 Diclofenac Sodium (Voltaren 1% Gel) 2 gm TID PRN TP PAIN; Start 12/01/18 at 21:00 Levothyroxine Sodium (Synthroid) 100 mcg BEFORE BREAKFAST PO Last administered on 12/16/18 06:33; Admin Dose 100 MCG; Start 12/02/18 at 07:00 Lisinopril (Zestril) 5 mg DAILY PO Last administered on 12/16/18 08:44; Admin Dose 5 MG; Start 12/02/18 at 09:00 Magnesium Hydroxide (Milk Of Mag) 30 ml DAILY PRN PO CONSTIPATION; Start 12/01/18 at 21:00 Multivitamins Therapeutic (Theragran) 1 tab DAILY PO Last administered on 12/16/18 08:43; Admin Dose 1 TAB; Start 12/02/18 at 09:00 Sodium Biphosphate/ Sodium Phosphate (Fleet Enema) 133 ml DAILY PRN [place] CONSTIPATION; Start 12/01/18 at 21:00 Polyethylene Glycol (Miralax) 17 gm DAILY PO Last administered on 12/08/18 10:15; Admin Dose 17 GM; Start 12/02/18 at 09:00 Senna (Senokot) 1 tab BID PO Last administered on 12/15/18 20:43; Admin Dose 1 TAB; Start 12/01/18 at 21:00 Vitamin B Complex/ Vitamin C (Berocca) 1 cap DAILY PO Last administered on 12/16/18 08:43; Admin Dose 1 CAP; Start 12/02/18 at 09:00 Fish Oil (Fish Oil) 1,000 mg DAILY PO Last administered on 12/16/18 08:43; Admin Dose 1,000 MG; Start 12/02/18 at 09:00 IV Flush (NS 3 ml) 3 ml PER PROTOCOL IV ; Start 12/01/18 at 22:00 Docusate Sodium (Colace) 100 mg Q12H PRN PO .CONSTIPATION; Start 12/01/18 at 22:00 Bisacodyl (Dulcolax) 5 mg DAILY PRN PO .CONSTIPATION; Start 12/01/18 at 22:00 Miscellaneous Information (Pending Santyl Order For Wound Care) This patient h a... PRN PRN XX WOUND CARE; Start 12/02/18 at 00:00 Collagenase (Santyl) 1 applic BID TOP Last administered on 12/16/18 08:44; Admin Dose 1 APPLIC; Start 12/02/18 at 11:30 Lidocaine (Xylocaine 1% (Mpf)) 30 ml ONCE PRN INJ aspiration ; Start 12/04/18 at 17:30 IV Flush (NS 3 ml) 3 ml PER PROTOCOL IV ; Start 12/05/18 at 21:30 Oxycodone HCl (Roxicodone) 15 mg Q4H PRN PO .PAIN Last administered on 12/15/18 12:28; Admin Dose 15 MG; Start 12/05/18 at 21:30 Oxycodone HCl (Roxicodone) 10 mg Q4H PRN PO .PAIN Last administered on 12/07/18 02:36; Admin Dose 10 MG; Start 12/05/18 at 21:30 Oxycodone HCl (Roxicodone) 5 mg Q4H PRN PO .PAIN Last administered on 12/15/18 22:20; Admin Dose 5 MG; Start 12/05/18 at 21:30 Hydromorphone HCl (Dilaudid) 1 mg Q3H PRN IV .BREAKTHROUGH PAIN Last administered on 12/06/18 06:58; Admin Dose 1 MG; Start 12/05/18 at 21:30 Acetaminophen (Tylenol Tab) 1,000 mg Q8 PO Last administered on 12/16/18 05:27; Admin Dose 1,000 MG; Start 12/06/18 at 22:00 Ondansetron HCl (Zofran Inj) 4 mg Q4H PRN IV NAUSEA/VOMITING; Start 12/06/18 at 21:30 Gabapentin (Neurontin) 300 mg QHS PO Last administered on 12/15/18 20:43; Admin Dose 300 MG; Start 12/06/18 at 21:00 Pantoprazole (Protonix Tab) 40 mg DAILY@06 PO Last administered on 12/16/18 05:27; Admin Dose 40 MG; Start 12/07/18 at 06:00 Simethicone (Mylicon) 80 mg TID PRN PO .GAS; Start 12/05/18 at 21:30 Senna/Docusate Sodium (Senokot-S) 2 tab BID PRN PO .CONSTIPATION Last administered on 12/06/18 08:54; Admin Dose 2 TAB; Start 12/05/18 at 21:30 Magnesium Hydroxide (Milk Of Mag) 30 ml HS PRN PO .CONSTIPATION; Start 12/05/18 at 21:30 Bisacodyl (Dulcolax Supp) 10 mg DAILY PRN [place] .CONSTIPATION; Start 12/05/18 at 21:30 Sodium Biphosphate/ Sodium Phosphate (Fleet Enema) 133 ml DAILY PRN [place] .CONSTIPATION; Start 12/05/18 at 21:30 Diphenhydramine HCl (Benadryl) 25 mg Q4H PRN IV .ITCHING; Start 12/05/18 at 21:30 Naloxone HCl (Narcan) 0.2 mg Q2M PRN IV .RESP RATE; Start 12/05/18 at 21:30 Bethanechol Chloride (Urecholine) 25 mg URINARY CATH D/C PRN PO UNABLE TO VOID; Start 12/05/18 at 21:30 Aspirin (Halfprin) 81 mg BID PO Last administered on 12/16/18 08:43; Admin Dose 81 MG; Start 12/06/18 at 09:00 Naloxone HCl (Narcan) 0.2 mg Q2M PRN IV .RESP RATE; Start 12/05/18 at 21:30 Vancomycin HCl (Vanco Iv Per Pharmacy) VANCOMYCIN PER PHARMACY PER PROTOCOL XX ; Start 12/11/18 at 11:30 Sodium Hypochlorite (Dakins Diluted (40)) 1 applic BID TP Last administered on 12/16/18 08:45; Admin Dose 1 APPLIC; Start 12/12/18 at 21:00 Nystatin (Nystatin Powder) 1 applic BID TOP Last administered on 12/16/18 08:44; Admin Dose 1 APPLIC; Start 12/12/18 at 21:00 Cefepime HCl 50 ml @ 100 mls/hr Q12 IVPB Last administered on 12/16/18 08:42; Admin Dose 100 MLS/HR; Start 12/13/18 at 21:00 Vancomycin HCl 1.25 gm/Sodium Chloride 250 ml @ 83.333 mls/ hr Q12H IVPB Last administered on 12/16/18at 06:34; Admin Dose 83.333 MLS/HR; Start 12/14/18 at 17:00 Albuterol (Proventil 0.083% (Neb)) 2.5 mg Q2H RESP THERAPY PRN HHN SHORTNESS OF BREATH; Start 12/15/18 at 12:00 Lidocaine (Lidoderm) 1 patch DAILY TD Last administered on 12/16/18at 08:42; Admin Dose 1 PATCH; Start 12/15/18 at 12:00 OZZIE SOLOMON NP Dec 16, 2018 12:55
[2018-12-16 13:31] VITALS: BP 114/58; PULSE 79; RESP 18
[2018-12-16] MEDS: oxyCODONE 5 MG TAB PO PRN ×2 (13:35→22:53)
--- NOTE | 2018-12-16 18:46 | PN ---
Date/Time of Note Date/Time of Note DATE: 12/16/18 TIME: 18:46 Objective Vitals Vital Signs Date Temp Pulse Resp B/P (MAP) Pulse Ox O2 O2 Flow FiO2 Time Delivery Rate 12/16/18 98.7 79 18 114/58 98 Room Air 13:31 (76) 12/15/18 21 10:46 Intake and Output 12/15/18 12/15/18 12/16/18 1515:00 23:00 07:00 IntakeIntake Total 600 ml 950 ml 300 ml BalanceBalance 600 ml 950 ml 300 ml Results Result Diagram: 12/15/1844912/15/18449 Medications Medications Current Medications Albuterol (Ventolin Hfa) 2 puff Q4H PRN INH WHEEZING AND SOB; Start 12/01/18 at 21:00; Status Hold Ascorbic Acid (Vitamin C) 500 mg BID PO Last administered on 12/16/18 08:43; Admin Dose 500 MG; Start 12/01/18 at 21:00 Bupropion HCl (Wellbutrin Xl) 300 mg DAILY PO Last administered on 12/16/18 08:43; Admin Dose 300 MG; Start 12/02/18 at 09:00 Cholecalciferol (Vitamin D) 1,000 unit DAILY PO Last administered on 12/16/18 08:43; Admin Dose 1,000 UNIT; Start 12/02/18 at 09:00 Diclofenac Sodium (Voltaren 1% Gel) 2 gm TID PRN TP PAIN; Start 12/01/18 at 21:00 Levothyroxine Sodium (Synthroid) 100 mcg BEFORE BREAKFAST PO Last administered on 12/16/18 06:33; Admin Dose 100 MCG; Start 12/02/18 at 07:00 Lisinopril (Zestril) 5 mg DAILY PO Last administered on 12/16/18 08:44; Admin Dose 5 MG; Start 12/02/18 at 09:00 Magnesium Hydroxide (Milk Of Mag) 30 ml DAILY PRN PO CONSTIPATION; Start 12/01/18 at 21:00 Multivitamins Therapeutic (Theragran) 1 tab DAILY PO Last administered on 12/16/18 08:43; Admin Dose 1 TAB; Start 12/02/18 at 09:00 Sodium Biphosphate/ Sodium Phosphate (Fleet Enema) 133 ml DAILY PRN [place] CONSTIPATION; Start 12/01/18 at 21:00 Polyethylene Glycol (Miralax) 17 gm DAILY PO Last administered on 12/08/18 10:15; Admin Dose 17 GM; Start 12/02/18 at 09:00 Senna (Senokot) 1 tab BID PO Last administered on 12/15/18 20:43; Admin Dose 1 TAB; Start 12/01/18 at 21:00 Vitamin B Complex/ Vitamin C (Berocca) 1 cap DAILY PO Last administered on 12/16/18 08:43; Admin Dose 1 CAP; Start 12/02/18 at 09:00 Fish Oil (Fish Oil) 1,000 mg DAILY PO Last administered on 12/16/18 08:43; Admin Dose 1,000 MG; Start 12/02/18 at 09:00 IV Flush (NS 3 ml) 3 ml PER PROTOCOL IV ; Start 12/01/18 at 22:00 Docusate Sodium (Colace) 100 mg Q12H PRN PO .CONSTIPATION; Start 12/01/18 at 22:00 Bisacodyl (Dulcolax) 5 mg DAILY PRN PO .CONSTIPATION; Start 12/01/18 at 22:00 Miscellaneous Information (Pending Santyl Order For Wound Care) This patient ruano... PRN PRN XX WOUND CARE; Start 12/02/18 at 00:00 Collagenase (Santyl) 1 applic BID TOP Last administered on 12/16/18 08:44; Admin Dose 1 APPLIC; Start 12/02/18 at 11:30 Lidocaine (Xylocaine 1% (Mpf)) 30 ml ONCE PRN INJ aspiration ; Start 12/04/18 at 17:30 IV Flush (NS 3 ml) 3 ml PER PROTOCOL IV ; Start 12/05/18 at 21:30 Oxycodone HCl (Roxicodone) 15 mg Q4H PRN PO .PAIN Last administered on 12/15/18 12:28; Admin Dose 15 MG; Start 12/05/18 at 21:30 Oxycodone HCl (Roxicodone) 10 mg Q4H PRN PO .PAIN Last administered on 12/07/18 02:36; Admin Dose 10 MG; Start 12/05/18 at 21:30 Oxycodone HCl (Roxicodone) 5 mg Q4H PRN PO .PAIN Last administered on 12/16/18 13:35; Admin Dose 5 MG; Start 12/05/18 at 21:30 Hydromorphone HCl (Dilaudid) 1 mg Q3H PRN IV .BREAKTHROUGH PAIN Last administered on 12/06/18 06:58; Admin Dose 1 MG; Start 12/05/18 at 21:30 Acetaminophen (Tylenol Tab) 1,000 mg Q8 PO Last administered on 12/16/18 13:36; Admin Dose 1,000 MG; Start 12/06/18 at 22:00 Ondansetron HCl (Zofran Inj) 4 mg Q4H PRN IV NAUSEA/VOMITING; Start 12/06/18 at 21:30 Gabapentin (Neurontin) 300 mg QHS PO Last administered on 12/15/18 20:43; Admin Dose 300 MG; Start 12/06/18 at 21:00 Pantoprazole (Protonix Tab) 40 mg DAILY@06 PO Last administered on 12/16/18 05:27; Admin Dose 40 MG; Start 12/07/18 at 06:00 Simethicone (Mylicon) 80 mg TID PRN PO .GAS; Start 12/05/18 at 21:30 Senna/Docusate Sodium (Senokot-S) 2 tab BID PRN PO .CONSTIPATION Last administered on 12/06/18 08:54; Admin Dose 2 TAB; Start 12/05/18 at 21:30 Magnesium Hydroxide (Milk Of Mag) 30 ml HS PRN PO .CONSTIPATION; Start 12/05/18 at 21:30 Bisacodyl (Dulcolax Supp) 10 mg DAILY PRN [place] .CONSTIPATION; Start 12/05/18 at 21:30 Sodium Biphosphate/ Sodium Phosphate (Fleet Enema) 133 ml DAILY PRN [place] .CONSTIPATION; Start 12/05/18 at 21:30 Diphenhydramine HCl (Benadryl) 25 mg Q4H PRN IV .ITCHING; Start 12/05/18 at 21:30 Naloxone HCl (Narcan) 0.2 mg Q2M PRN IV .RESP RATE; Start 12/05/18 at 21:30 Bethanechol Chloride (Urecholine) 25 mg URINARY CATH D/C PRN PO UNABLE TO VOID; Start 12/05/18 at 21:30 Aspirin (Halfprin) 81 mg BID PO Last administered on 12/16/18 08:43; Admin Dose 81 MG; Start 12/06/18 at 09:00 Naloxone HCl (Narcan) 0.2 mg Q2M PRN IV .RESP RATE; Start 12/05/18 at 21:30 Vancomycin HCl (Vanco Iv Per Pharmacy) VANCOMYCIN PER PHARMACY PER PROTOCOL XX ; Start 12/11/18 at 11:30 Sodium Hypochlorite (Dakins Diluted (40)) 1 applic BID TP Last administered on 12/16/18 08:45; Admin Dose 1 APPLIC; Start 12/12/18 at 21:00 Nystatin (Nystatin Powder) 1 applic BID TOP Last administered on 12/16/18 08:44; Admin Dose 1 APPLIC; Start 12/12/18 at 21:00 Cefepime HCl 50 ml @ 100 mls/hr Q12 IVPB Last administered on 12/16/18 08:42; Admin Dose 100 MLS/HR; Start 12/13/18 at 21:00 Vancomycin HCl 1.25 gm/Sodium Chloride 250 ml @ 83.333 mls/ hr Q12H IVPB Last administered on 12/16/18 17:27; Admin Dose 83.333 MLS/HR; Start 12/14/18 at 17:00 Albuterol (Proventil 0.083% (Neb)) 2.5 mg Q2H RESP THERAPY PRN HHN SHORTNESS OF BREATH; Start 12/15/18 at 12:00 Lidocaine (Lidoderm) 1 patch DAILY TD Last administered on 12/16/18 08:42; Admin Dose 1 PATCH; Start 12/15/18 at 12:00 VTE Prophylaxis Risk score (from Nsg)>0 risk: 8 SCD applied (from Nsg): Yes Lines/Catheters IV Catheter Type: Schaeffer in Place: No Assessment/Plan Hospital Course Subjective Patient upset that her mobility is not improving as quickly with her current surgery as with her previous elective surgery, explained to patient why current surgery is very different than the previous and will likely take longer to heal Objective Physical exam General: Patient is laying in bed and answers questions appropriately Mentation: Patient is alert and oriented 4, Head: Normocephalic atraumatic Eyes: EOMI, pupils reactive to light Neck: Supple, nontender, midline Respiratory: Clear to auscultation bilaterally Cardiovascular: regular rate, no obvious murmurs Gastrointestinal: non-tender to palpation, bowel sounds heard. Neurological: Moves all extremities spontaneously Skin: Right knee brace, bandaged, CDI at surgical site Assessment/Plan 1. Septic R knee joint s/p irrigation and debridement of right knee arthroplasty 12/05/18 - Ortho on board and recommendations appreciated. Continue IV antibiotics until 01/18 then will need to continue PO antibiotics for 3-6 months - pain control 2. 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 Chronic spinal disease - mild discomfort given aerobed was aggravating her back pain. 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 Lumbar spine and thoracic spine CT show signs of stenosis though no acute fractures. 4. osteoarthritis - pain control 5. urinary tract infection: - Cultures growing ecoli and lactobacillus - asymptomatic 6. Strep Bacteremia - continue current antibiotics - repeat cultures negative 7. Mechanical fall - s/p stable removal from scalp 8. Disposition - CM on board for SNF placement HARJEET PATINO Dec 16, 2018 18:46
[2018-12-16 19:58] VITALS: BP 128/56; PULSE 79; RESP 18
[2018-12-16] MEDS: ACETAMINOPHEN 500 MG TAB PO PRN (21:29)
[2018-12-16] MEDS: GABAPENTIN 300 MG CAP PO SCH (21:46)
[2018-12-17 01:53] VITALS: BP 117/63; PULSE 76; RESP 18
[2018-12-17] MEDS: PANTOPRAZOLE (EC) 40 MG TAB PO SCH (05:56)
[2018-12-17] MEDS: VANCOMYCIN HCL 1.25 GM in SOD CHLORIDE 0.9% 250 ML IVPB SCH ×2 (05:56→16:04)
[2018-12-17] MEDS: LEVOTHYROXINE 100 MCG TAB PO SCH (05:56)
[2018-12-17 08:00] VITALS: BP 145/75; PULSE 81; RESP 18
[2018-12-17] MEDS ORDERED: ALTEPLASE (CATHFLO) 2 MG INJ CATHETER PRN (08:30)
[2018-12-17] MEDS: POLYETHYLENE GLYCOL 17 GM PACKET PO SCH (09:00)
[2018-12-17] MEDS: BUPROPION (XL) 150 MG TAB PO SCH (10:44)
[2018-12-17] MEDS: VITAMIN B COMPLEX/VIT C CAP PO SCH (10:44)
[2018-12-17] MEDS: FISH OIL 1,000 MG CAP PO SCH (10:45)
[2018-12-17] MEDS: ASCORBIC ACID 500 MG TAB PO SCH ×2 (10:46→20:40)
[2018-12-17] MEDS: CHOLECALCIFEROL 1,000 UNIT TAB PO SCH (10:47)
[2018-12-17] MEDS: SENNA TAB PO SCH ×2 (10:47→20:40)
[2018-12-17] MEDS: ASPIRIN (EC) 81 MG TAB PO SCH ×2 (10:47→20:40)
[2018-12-17] MEDS: MULTIVITAMINS THERAPEUTIC TAB PO SCH (10:47)
[2018-12-17] MEDS: COLLAGENASE 5 GM (UD JAR) TOP SCH ×2 (10:48→20:40)
[2018-12-17] MEDS: LISINOPRIL 5 MG TAB PO SCH (10:49)
[2018-12-17] MEDS: LIDOCAINE 5% PATCH TD SCH (10:49)
[2018-12-17] MEDS: CEFEPIME 1GM/50 ML (PMX) 50 ML IVPB SCH ×2 (10:57→21:43)
--- NOTE | 2018-12-17 13:19 | CONS ---
Assessment/Plan Assessment/Plan Hospital Course (Demo Recall) No acute changes Alert, feels good Antimicrobials: Vancomycin and cefepime Microbiology: Blood culture on admission grew strep, urine culture grew E. coli, MRSA swab negative, repeat blood cultures negative. Sacral wound cx + MRSA/Proteus/Strep 2D echo revealed no vegetations Physical examination: This is well-developed well-nourished elderly woman who is alert in no distress. Head atraumatic normocephalic neck is supple. Chest rise symmetrical breath sounds clear. Heart: S1-S2. Abdomen soft, bowel tones present. Extremities with right knee erythema and swelling Assessment: 1. Status post sepsis, present on admission 2. Streptococcal bacteremia 2 to #3 3. 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 Urinary tract infection 5. History of left total knee replacement 6. History of multilevel discectomy and posterior fusion from L1-L3, please see CT in the chart Plan: Remains stable, continue on current abx for 7 more days, then change to IV Rocephin for 6 weeks till January 18, pending SNF Consultation Date/Type/Reason Admit Date/Time Dec 01, 2018 at 19:24 Initial Consult Date Type of Consult id Date/Time of Note DATE: 12/17/18 TIME: 13:18 Exam/Review of Systems Exam Vitals Vital Signs Date Temp Pulse Resp B/P (MAP) Pulse Ox O2 O2 Flow FiO2 Time Delivery Rate 12/17/18 98.5 81 18 145/75 95 Room Air 08:00 (98) 12/15/18 21 10:46 Intake and Output 12/16/18 12/16/18 12/17/18 1515:00 23:00 07:00 IntakeIntake Total 300 ml 1339.99 ml 340 ml BalanceBalance 300 ml 1339.99 ml 340 ml Results Result Diagram: 12/17/18 0742 12/17/18 0437 Results 24hrs Laboratory Tests Test 12/17/18 04:37 12/17/18 07:42 Sodium Level 143 Potassium Level 4.3 Chloride Level 107 Carbon Dioxide Level 27 Anion Gap 9 Blood Urea Nitrogen 16 Creatinine 0.43 L Est Glomerular Filtrat Rate mL/min Glucose Level 110 Calcium Level 8.5 Phosphorus Level 3.9 Magnesium Level 2.0 White Blood Count 6.3 Red Blood Count 3.90 L Hemoglobin 10.3 L Hematocrit 34.0 L Mean Corpuscular Volume 87.2 Mean Corpuscular Hemoglobin 26.4 L Mean Corpuscular Hemoglobin Concent 30.3 L Red Cell Distribution Width 17.9 H Platelet Count 409 Mean Platelet Volume 9.5 Immature Granulocytes % 0.500 H Neutrophils % 59.1 Lymphocytes % 24.5 Monocytes % 11.7 H Eosinophils % 2.9 Basophils % 1.3 Nucleated Red Blood Cells % 0.0 Immature Granulocytes # 0.030 Neutrophils # 3.7 Lymphocytes # 1.5 Monocytes # 0.7 Eosinophils # 0.2 Basophils # 0.1 Nucleated Red Blood Cells # 0.0 Medications Medication Current Medications Albuterol (Ventolin Hfa) 2 puff Q4H PRN INH WHEEZING AND SOB; Start 12/01/18 at 21:00; Status Hold Ascorbic Acid (Vitamin C) 500 mg BID PO Last administered on 12/17/18 10:46; A dmin Dose 500 MG; Start 12/01/18 at 21:00 Bupropion HCl (Wellbutrin Xl) 300 mg DAILY PO Last administered on 12/17/18 10:44; Admin Dose 300 MG; Start 12/02/18 at 09:00 Cholecalciferol (Vitamin D) 1,000 unit DAILY PO Last administered on 12/17/18 10:47; Admin Dose 1,000 UNIT; Start 12/02/18 at 09:00 Diclofenac Sodium (Voltaren 1% Gel) 2 gm TID PRN TP PAIN; Start 12/01/18 at 21:00 Levothyroxine Sodium (Synthroid) 100 mcg BEFORE BREAKFAST PO Last administered on 12/17/18 05:56; Admin Dose 100 MCG; Start 12/02/18 at 07:00 Lisinopril (Zestril) 5 mg DAILY PO Last administered on 12/17/18 10:49; Admin Dose 5 MG; Start 12/02/18 at 09:00 Magnesium Hydroxide (Milk Of Mag) 30 ml DAILY PRN PO CONSTIPATION; Start 12/01/18 at 21:00 Multivitamins Therapeutic (Theragran) 1 tab DAILY PO Last administered on 12/17/18 10:47; Admin Dose 1 TAB; Start 12/02/18 at 09:00 Polyethylene Glycol (Miralax) 17 gm DAILY PO Last administered on 12/08/18 10:15; Admin Dose 17 GM; Start 12/02/18 at 09:00 Senna (Senokot) 1 tab BID PO Last administered on 12/17/18 10:47; Admin Dose 1 TAB; Start 12/01/18 at 21:00 Vitamin B Complex/ Vitamin C (Berocca) 1 cap DAILY PO Last administered on 12/17/18 10:44; Admin Dose 1 CAP; Start 12/02/18 at 09:00 Fish Oil (Fish Oil) 1,000 mg DAILY PO Last administered on 12/17/18 10:45; Admin Dose 1,000 MG; Start 12/02/18 at 09:00 Docusate Sodium (Colace) 100 mg Q12H PRN PO .CONSTIPATION; Start 12/01/18 at 22:00 Bisacodyl (Dulcolax) 5 mg DAILY PRN PO .CONSTIPATION; Start 12/01/18 at 22:00 Miscellaneous Information (Pending Santyl Order For Wound Care) This patient ruano ... PRN PRN XX WOUND CARE; Start 12/02/18 at 00:00 Collagenase (Santyl) 1 applic BID TOP Last administered on 12/17/18 10:48; Admin Dose 1 APPLIC; Start 12/02/18 at 11:30 Lidocaine (Xylocaine 1% (Mpf)) 30 ml ONCE PRN INJ aspiration ; Start 12/04/18 at 17:30 IV Flush (NS 3 ml) 3 ml PER PROTOCOL IV ; Start 12/05/18 at 21:30 Oxycodone HCl (Roxicodone) 15 mg Q4H PRN PO .PAIN Last administered on 12/15/18 12:28; Admin Dose 15 MG; Start 12/05/18 at 21:30 Oxycodone HCl (Roxicodone) 10 mg Q4H PRN PO .PAIN Last administered on 12/07/18 02:36; Admin Dose 10 MG; Start 12/05/18 at 21:30 Oxycodone HCl (Roxicodone) 5 mg Q4H PRN PO .PAIN Last administered on 12/16/18 22:53; Admin Dose 5 MG; Start 12/05/18 at 21:30 Hydromorphone HCl (Dilaudid) 1 mg Q3H PRN IV .BREAKTHROUGH PAIN Last administered on 12/06/18 06:58; Admin Dose 1 MG; Start 12/05/18 at 21:30 Ondansetron HCl (Zofran Inj) 4 mg Q4H PRN IV NAUSEA/VOMITING; Start 12/06/18 at 21:30 Gabapentin (Neurontin) 300 mg QHS PO Last administered on 12/16/18 21:46; Admin Dose 300 MG; Start 12/06/18 at 21:00 Pantoprazole (Protonix Tab) 40 mg DAILY@06 PO Last administered on 12/17/18 05:56; Admin Dose 40 MG; Start 12/07/18 at 06:00 Simethicone (Mylicon) 80 mg TID PRN PO .GAS; Start 12/05/18 at 21:30 Senna/Docusate Sodium (Senokot-S) 2 tab BID PRN PO .CONSTIPATION Last administered on 12/06/18 08:54; Admin Dose 2 TAB; Start 12/05/18 at 21:30 Magnesium Hydroxide (Milk Of Mag) 30 ml HS PRN PO .CONSTIPATION; Start 12/05/18 at 21:30 Bisacodyl (Dulcolax Supp) 10 mg DAILY PRN [place] .CONSTIPATION; Start 12/05/18 at 21:30 Sodium Biphosphate/ Sodium Phosphate (Fleet Enema) 133 ml DAILY PRN [place] .CONSTIPATION; Start 12/05/18 at 21:30 Diphenhydramine HCl (Benadryl) 25 mg Q4H PRN IV .ITCHING; Start 12/05/18 at 21:30 Naloxone HCl (Narcan) 0.2 mg Q2M PRN IV .RESP RATE; Start 12/05/18 at 21:30 Bethanechol Chloride (Urecholine) 25 mg URINARY CATH D/C PRN PO UNABLE TO VOID; Start 12/05/18 at 21:30 Aspirin (Halfprin) 81 mg BID PO Last administered on 12/17/18 10:47; Admin Dose 81 MG; Start 12/06/18 at 09:00 Vancomycin HCl (Vanco Iv Per Pharmacy) VANCOMYCIN PER PHARMACY PER PROTOCOL XX ; Start 12/11/18 at 11:30 Sodium Hypochlorite (Dakins Diluted (40)) 1 applic BID TP Last administered on 12/16/18 21:47; Admin Dose 1 APPLIC; Start 12/12/18 at 21:00 Nystatin (Nystatin Powder) 1 applic BID TOP Last administered on 12/16/18at 21:47; Admin Dose 1 APPLIC; Start 12/12/18 at 21:00 Cefepime HCl 50 ml @ 100 mls/hr Q12 IVPB Last administered on 12/17/18at 10:57; Admin Dose 100 MLS/HR; Start 12/13/18 at 21:00 Vancomycin HCl 1.25 gm/Sodium Chloride 250 ml @ 83.333 mls/ hr Q12H IVPB Last administered on 12/17/18at 05:56; Admin Dose 83.333 MLS/HR; Start 12/14/18 at 17:00 Albuterol (Proventil 0.083% (Neb)) 2.5 mg Q2H RESP THERAPY PRN HHN SHORTNESS OF BREATH; Start 12/15/18 at 12:00 Lidocaine (Lidoderm) 1 patch DAILY TD Last administered on 12/17/18at 10:49; Admin Dose 1 PATCH; Start 12/15/18 at 12:00 Acetaminophen (Tylenol Tab) 1,000 mg Q8H PRN PO pain Last administered on 12/16/18at 21:29; Admin Dose 1,000 MG; Start 12/16/18 at 19:00 Alteplase, Recombinant (Cathflo (Activase)) 2 mg MAY REPEAT X1 PRN CATHETER IF CATHETER REMAINS OCCULUDED; Start 12/17/18 at 08:30 OZZIE SOLOMON NP Dec 17, 2018 13:19
[2018-12-17] MEDS: DAKINS 0.0125%(1/40) 473 ML SOLUTION TP SCH ×2 (13:20→20:41)
[2018-12-17] MEDS: NYSTATIN 30 GM POWDER BTL TOP SCH ×2 (13:21→20:41)
[2018-12-17] MEDS: oxyCODONE 5 MG TAB PO PRN (15:20)
--- NOTE | 2018-12-17 15:47 | PN ---
Date/Time of Note Date/Time of Note DATE: 12/17/18 TIME: 15:47 Objective Vitals Vital Signs Date Temp Pulse Resp B/P (MAP) Pulse Ox O2 O2 Flow FiO2 Time Delivery Rate 12/17/18 98.5 81 18 145/75 95 Room Air 08:00 (98) 12/15/18 21 10:46 Intake and Output 12/16/18 12/16/18 12/17/18 1515:00 23:00 07:00 IntakeIntake Total 300 ml 1339.99 ml 340 ml BalanceBalance 300 ml 1339.99 ml 340 ml Results Result Diagram: 12/17/18 0742 12/17/18 0437 Medications Medications Current Medications Albuterol (Ventolin Hfa) 2 puff Q4H PRN INH WHEEZING AND SOB; Start 12/01/18 at 21:00; Status Hold Ascorbic Acid (Vitamin C) 500 mg BID PO Last administered on 12/17/18at 10:46; Admin Dose 500 MG; Start 12/01/18 at 21:00 Bupropion HCl (Wellbutrin Xl) 300 mg DAILY PO Last administered on 12/17/18 10:44; Admin Dose 300 MG; Start 12/02/18 at 09:00 Cholecalciferol (Vitamin D) 1,000 unit DAILY PO Last administered on 12/17/18 10:47; Admin Dose 1,000 UNIT; Start 12/02/18 at 09:00 Diclofenac Sodium (Voltaren 1% Gel) 2 gm TID PRN TP PAIN; Start 12/01/18 at 21:00 Levothyroxine Sodium (Synthroid) 100 mcg BEFORE BREAKFAST PO Last administered on 12/17/18at 05:56; Admin Dose 100 MCG; Start 12/02/18 at 07:00 Lisinopril (Zestril) 5 mg DAILY PO Last administered on 12/17/18 10:49; Admin Dose 5 MG; Start 12/02/18 at 09:00 Magnesium Hydroxide (Milk Of Mag) 30 ml DAILY PRN PO CONSTIPATION; Start 12/01/18 at 21:00 Multivitamins Therapeutic (Theragran) 1 tab DAILY PO Last administered on 12/17/18 10:47; Admin Dose 1 TAB; Start 12/02/18 at 09:00 Polyethylene Glycol (Miralax) 17 gm DAILY PO Last administered on 12/08/18 10:15; Admin Dose 17 GM; Start 12/02/18 at 09:00 Senna (Senokot) 1 tab BID PO Last administered on 12/17/18 10:47; Admin Dose 1 TAB; Start 12/01/18 at 21:00 Vitamin B Complex/ Vitamin C (Berocca) 1 cap DAILY PO Last administered on 12/17/18 10:44; Admin Dose 1 CAP; Start 12/02/18 at 09:00 Fish Oil (Fish Oil) 1,000 mg DAILY PO Last administered on 12/17/18 10:45; Admin Dose 1,000 MG; Start 12/02/18 at 09:00 Docusate Sodium (Colace) 100 mg Q12H PRN PO .CONSTIPATION; Start 12/01/18 at 22:00 Bisacodyl (Dulcolax) 5 mg DAILY PRN PO .CONSTIPATION; Start 12/01/18 at 22:00 Miscellaneous Information (Pending Santyl Order For Wound Care) This patient ruano... PRN PRN XX WOUND CARE; Start 12/02/18 at 00:00 Collagenase (Santyl) 1 applic BID TOP Last administered on 12/17/18 10:48; Admin Dose 1 APPLIC; Start 12/02/18 at 11:30 Lidocaine (Xylocaine 1% (Mpf)) 30 ml ONCE PRN INJ aspiration ; Start 12/04/18 at 17:30 IV Flush (NS 3 ml) 3 ml PER PROTOCOL IV ; Start 12/05/18 at 21:30 Oxycodone HCl (Roxicodone) 15 mg Q4H PRN PO .PAIN Last administered on 12/15/18 12:28; Admin Dose 15 MG; Start 12/05/18 at 21:30 Oxycodone HCl (Roxicodone) 10 mg Q4H PRN PO .PAIN Last administered on 12/17/18 15:20; Admin Dose 10 MG; Start 12/05/18 at 21:30 Oxycodone HCl (Roxicodone) 5 mg Q4H PRN PO .PAIN Last administered on 12/16/18 22:53; Admin Dose 5 MG; Start 12/05/18 at 21:30 Hydromorphone HCl (Dilaudid) 1 mg Q3H PRN IV .BREAKTHROUGH PAIN Last administered on 12/06/18 06:58; Admin Dose 1 MG; Start 12/05/18 at 21:30 Ondansetron HCl (Zofran Inj) 4 mg Q4H PRN IV NAUSEA/VOMITING; Start 12/06/18 at 21:30 Gabapentin (Neurontin) 300 mg QHS PO Last administered on 12/16/18 21:46; Admin Dose 300 MG; Start 12/06/18 at 21:00 Pantoprazole (Protonix Tab) 40 mg DAILY@06 PO Last administered on 12/17/18 05:56; Admin Dose 40 MG; Start 12/07/18 at 06:00 Simethicone (Mylicon) 80 mg TID PRN PO .GAS; Start 12/05/18 at 21:30 Senna/Docusate Sodium (Senokot-S) 2 tab BID PRN PO .CONSTIPATION Last administered on 12/06/18 08:54; Admin Dose 2 TAB; Start 12/05/18 at 21:30 Magnesium Hydroxide (Milk Of Mag) 30 ml HS PRN PO .CONSTIPATION; Start 12/05/18 at 21:30 Bisacodyl (Dulcolax Supp) 10 mg DAILY PRN [place] .CONSTIPATION; Start 12/05/18 at 21:30 Sodium Biphosphate/ Sodium Phosphate (Fleet Enema) 133 ml DAILY PRN [place] .CONSTIPATION; Start 12/05/18 at 21:30 Diphenhydramine HCl (Benadryl) 25 mg Q4H PRN IV .ITCHING; Start 12/05/18 at 21:30 Naloxone HCl (Narcan) 0.2 mg Q2M PRN IV .RESP RATE; Start 12/05/18 at 21:30 Bethanechol Chloride (Urecholine) 25 mg URINARY CATH D/C PRN PO UNABLE TO VOID; Start 12/05/18 at 21:30 Aspirin (Halfprin) 81 mg BID PO Last administered on 12/17/18at 10:47; Admin Dose 81 MG; Start 12/06/18 at 09:00 Vancomycin HCl (Vanco Iv Per Pharmacy) VANCOMYCIN PER PHARMACY PER PROTOCOL XX ; Start 12/11/18 at 11:30 Sodium Hypochlorite (Dakins Diluted (40)) 1 applic BID TP Last administered on 12/17/18at 13:20; Admin Dose 1 APPLIC; Start 12/12/18 at 21:00 Nystatin (Nystatin Powder) 1 applic BID TOP Last administered on 12/17/18 13:21; Admin Dose 1 APPLIC; Start 12/12/18 at 21:00 Cefepime HCl 50 ml @ 100 mls/hr Q12 IVPB Last administered on 12/17/18at 10:57; Admin Dose 100 MLS/HR; Start 12/13/18 at 21:00 Vancomycin HCl 1.25 gm/Sodium Chloride 250 ml @ 83.333 mls/ hr Q12H IVPB Last administered on 12/17/18 05:56; Admin Dose 83.333 MLS/HR; Start 12/14/18 at 17:00 Albuterol (Proventil 0.083% (Neb)) 2.5 mg Q2H RESP THERAPY PRN HHN SHORTNESS OF BREATH; Start 12/15/18 at 12:00 Lidocaine (Lidoderm) 1 patch DAILY TD Last administered on 12/17/18 10:49; Admin Dose 1 PATCH; Start 12/15/18 at 12:00 Acetaminophen (Tylenol Tab) 1,000 mg Q8H PRN PO pain Last administered on 12/16/18 21:29; Admin Dose 1,000 MG; Start 12/16/18 at 19:00 Alteplase, Recombinant (Cathflo (Activase)) 2 mg MAY REPEAT X1 PRN CATHETER IF CATHETER REMAINS OCCULUDED Last administered on 12/17/18 13:20; Admin Dose 2 MG; Start 12/17/18 at 08:30 VTE Prophylaxis Risk score (from Nsg)>0 risk: 4 SCD applied (from Ns): Yes Lines/Catheters IV Catheter Type: Schaeffer in Place: No Assessment/Plan Hospital Course Subjective Patient doing well, still frustrated over her overall knee pain/progress Objective Physical exam General: Patient is laying in bed and answers questions appropriately Mentation: Patient is alert and oriented 4, Head: Normocephalic atraumatic Eyes: EOMI, pupils reactive to light Neck: Supple, nontender, midline Respiratory: Clear to auscultation bilaterally Cardiovascular: regular rate, no obvious murmurs Gastrointestinal: non-tender to palpation, bowel sounds heard. Neurological: Moves all extremities spontaneously Skin: Right knee brace, bandaged, CDI at surgical site Assessment/Plan 1. Septic R knee joint s/p irrigation and debridement of right knee arthropl asty 12/05/18 - Ortho on board and recommendations appreciated. Continue IV antibiotics until 01/18 then will need to continue PO antibiotics for 3-6 months - pain control 2. 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 Chronic spinal disease - mild discomfort given aerobed was aggravating her back pain. 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 Lumbar spine and thoracic spine CT show signs of stenosis though no acute fractures. 4. osteoarthritis - pain control 5. urinary tract infection: - Cultures growing ecoli and lactobacillus - asymptomatic 6. Strep Bacteremia - continue current antibiotics - repeat cultures negative 7. Mechanical fall - s/p stable removal from scalp 8. Disposition - CM on board for SNF placement HARJEET PATINO Dec 17, 2018 15:47
--- NOTE | 2018-12-17 18:24 | PN ---
Date/Time of Note Date/Time of Note DATE: 12/17/18 TIME: 18:22 Assessment/Plan Lines/Catheters IV Catheter Type (from Nrs): Schaeffer in Place (from Nrs): No Assessment/Plan Chief Complaint/Hosp Course 73-year-old female with acute hematogenous infection of the right TKA postop day #11 status post I&D and poly-exchange. Preliminary intraoperative cultures are growing strep group B which are the same as her blood cultures. The patient will need a PICC line as she will need IV antibiotics for 6 weeks. After that she will need p.o. antibiotics for 3-6 months. Wound cultures from the sacral wound grew MRSA. Therefore she is unable to go to acute rehab and is still pending discharge. If patient can be cleared of MRSA from the standpoint of the acute rehab unit and continue to be transferred there for continued care that would be the optimal situation. Plan: Pain control Physical therapy Continue IV antibiotics per infectious disease -currently on ceftriaxone 1 g every 24 hours and vancomycin continue to follow-up intraoperative cultures Dietregular Discharge planning: If accepted it would be optimal for the patient to be discharged to the acute rehab unit. Okay to discharge from orthopedic standpoint. Will need to follow-up with me in 2 weeks unless she is in the acute rehab unit at that time and I will see her there. Subjective 24 Hr Interval Summary Patient doing well No acute events overnight Pain is well controlled Exam/Review of Systems Vital Signs Vitals Vital Signs Date Temp Pulse Resp B/P (MAP) Pulse Ox O2 O2 Flow FiO2 Time Delivery Rate 12/17/18 98.5 81 18 145/75 95 Room Air 08:00 (98) 12/15/18 21 10:46 Intake and Output 12/16/18 12/16/18 12/17/18 1515:00 23:00 07:00 IntakeIntake Total 300 ml 1339.99 ml 340 ml BalanceBalance 300 ml 1339.99 ml 340 ml Exam Free Text/Dictation Right lower extremity: Dressing: clean, dry, and intact, no erythema Sensation intact to light touch in a sural, saphenous, deep peroneal, superficial peroneal, medial and lateral plantar nerve distribution. Motor is intact, patient able to dorsiflex and plantarflex ankle and extend and flex great toe. Dorsalis Pedis pulse +2, Brisk capillary refill. Compartments are soft. Calves non-tender to palpation bilaterally. Results Result Diagram: 12/17/18 0742 12/17/18 0437 EMIGDIO LUBIN MD Dec 17, 2018 18:23
[2018-12-17 20:10] VITALS: BP 119/59; PULSE 78; RESP 18
[2018-12-17] MEDS: GABAPENTIN 300 MG CAP PO SCH (20:40)
[2018-12-18 01:41] VITALS: BP 130/76; PULSE 88; RESP 18
[2018-12-18] MEDS: oxyCODONE 5 MG TAB PO PRN ×2 (03:37→14:38)
[2018-12-18] MEDS: VANCOMYCIN HCL 1.25 GM in SOD CHLORIDE 0.9% 250 ML IVPB SCH ×2 (04:34→17:15)
[2018-12-18] MEDS: LEVOTHYROXINE 100 MCG TAB PO SCH (04:50)
[2018-12-18] MEDS: PANTOPRAZOLE (EC) 40 MG TAB PO SCH (04:50)
[2018-12-18 07:52] VITALS: BP 132/62; PULSE 69; RESP 19
[2018-12-18] MEDS: MULTIVITAMINS THERAPEUTIC TAB PO SCH (09:00)
[2018-12-18] MEDS: POLYETHYLENE GLYCOL 17 GM PACKET PO SCH (09:00)
[2018-12-18] MEDS: SENNA TAB PO SCH ×2 (09:00→21:00)
[2018-12-18] MEDS: VITAMIN B COMPLEX/VIT C CAP PO SCH (09:00)
[2018-12-18] MEDS: FISH OIL 1,000 MG CAP PO SCH (10:01)
[2018-12-18] MEDS: ASCORBIC ACID 500 MG TAB PO SCH ×2 (10:01→21:14)
[2018-12-18] MEDS: CHOLECALCIFEROL 1,000 UNIT TAB PO SCH (10:01)
[2018-12-18] MEDS: CEFEPIME 1GM/50 ML (PMX) 50 ML IVPB SCH ×2 (10:01→21:14)
[2018-12-18] MEDS: BUPROPION (XL) 150 MG TAB PO SCH (10:01)
[2018-12-18] MEDS: ASPIRIN (EC) 81 MG TAB PO SCH ×2 (10:01→21:14)
[2018-12-18] MEDS: LIDOCAINE 5% PATCH TD SCH (10:02)
[2018-12-18] MEDS: LISINOPRIL 5 MG TAB PO SCH (10:02)
[2018-12-18] MEDS: COLLAGENASE 5 GM (UD JAR) TOP SCH ×2 (10:02→21:15)
[2018-12-18] MEDS: NYSTATIN 30 GM POWDER BTL TOP SCH ×2 (10:05→21:15)
--- NOTE | 2018-12-18 13:17 | CONS ---
Assessment/Plan Assessment/Plan Hospital Course (Demo Recall) No acute changes Alert, feels good Antimicrobials: Vancomycin and cefepime Microbiology: Blood culture on admission grew strep, urine culture grew E. coli, MRSA swab negative, repeat blood cultures negative. Sacral wound cx + MRSA/Proteus/Strep 2D echo revealed no vegetations Physical examination: This is well-developed well-nourished elderly woman who is alert in no distress. Head atraumatic normocephalic neck is supple. Chest rise symmetrical breath sounds clear. Heart: S1-S2. Abdomen soft, bowel tones present. Extremities with right knee erythema and swelling Assessment: 1. Status post sepsis, present on admission 2. Streptococcal bacteremia 2 to #3 3. 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 Urinary tract infection 5. History of left total knee replacement 6. History of multilevel discectomy and posterior fusion from L1-L3, please see CT in the chart Plan: Remains stable, continue on current abx for 6 more days, then change to IV Rocephin for 6 weeks till January 18, pending SNF, ortho rec-s noted Consultation Date/Type/Reason Admit Date/Time Dec 01, 2018 at 19:24 Initial Consult Date Type of Consult id Date/Time of Note DATE: 12/18/18 TIME: 13:17 Exam/Review of Systems Exam Vitals Vital Signs Date Temp Pulse Resp B/P (MAP) Pulse Ox O2 O2 Flow FiO2 Time Delivery Rate 12/18/18 98.0 69 19 132/62 95 07:52 (85) 12/18/18 Room Air 01:41 12/15/18 21 10:46 Intake and Output 12/17/18 12/17/18 12/18/18 1515:00 23:00 07:00 IntakeIntake Total 780 ml 900 ml 400 ml OutputOutput Total 500 ml BalanceBalance 780 ml 900 ml -100 ml Results Result Diagram: 12/17/18 0742 12/17/18 0437 Medications Medication Current Medications Albuterol (Ventolin Hfa) 2 puff Q4H PRN INH WHEEZING AND SOB; Start 12/01/18 at 21:00; Status Hold Ascorbic Acid (Vitamin C) 500 mg BID PO Last administered on 12/18/18at 10:01; Admin Dose 500 MG; Start 12/01/18 at 21:00 Bupropion HCl (Wellbutrin Xl) 300 mg DAILY PO Last administered on 12/18/18 10:01; Admin Dose 300 MG; Start 12/02/18 at 09:00 Cholecalciferol (Vitamin D) 1,000 unit DAILY PO Last administered on 12/18/18 10:01; Admin Dose 1,000 UNIT; Start 12/02/18 at 09:00 Diclofenac Sodium (Voltaren 1% Gel) 2 gm TID PRN TP PAIN; Start 12/01/18 at 21:00 Levothyroxine Sodium (Synthroid) 100 mcg BEFORE BREAKFAST PO Last administered on 12/18/18 04:50; Admin Dose 100 MCG; Start 12/02/18 at 07:00 Lisinopril (Zestril) 5 mg DAILY PO Last administered on 12/18/18 10:02; Admin Dose 5 MG; Start 12/02/18 at 09:00 Magnesium Hydroxide (Milk Of Mag) 30 ml DAILY PRN PO CONSTIPATION; Start 12/01/18 at 21:00 Multivitamins Therapeutic (Theragran) 1 tab DAILY PO Last administered on 09:00; Admin Dose 1 TAB; Start 12/02/18 at 09:00 Polyethylene Glycol (Miralax) 17 gm DAILY PO Last administered on 12/08/18 10:15; Admin Dose 17 GM; Start 12/02/18 at 09:00 Senna (Senokot) 1 tab BID PO Last administered on 12/17/18 20:40; Admin Dose 1 TAB; Start 12/01/18 at 21:00 Vitamin B Complex/ Vitamin C (Berocca) 1 cap DAILY PO Last administered on 12/17/18 10:44; Admin Dose 1 CAP; Start 12/02/18 at 09:00 Fish Oil (Fish Oil) 1,000 mg DAILY PO Last administered on 12/18/18 10:01; Admin Dose 1,000 MG; Start 12/02/18 at 09:00 Docusate Sodium (Colace) 100 mg Q12H PRN PO .CONSTIPATION; Start 12/01/18 at 22:00 Bisacodyl (Dulcolax) 5 mg DAILY PRN PO .CONSTIPATION; Start 12/01/18 at 22:00 Miscellaneous Information (Pending Santyl Order For Wound Care) This patient ruano... PRN PRN XX WOUND CARE; Start 12/02/18 at 00:00 Collagenase (Santyl) 1 applic BID TOP Last administered on 12/18/18 10:02; Admin Dose 1 APPLIC; Start 12/02/18 at 11:30 Lidocaine (Xylocaine 1% (Mpf)) 30 ml ONCE PRN INJ aspiration ; Start 12/04/18 at 17:30 IV Flush (NS 3 ml) 3 ml PER PROTOCOL IV ; Start 12/05/18 at 21:30 Oxycodone HCl (Roxicodone) 15 mg Q4H PRN PO .PAIN Last administered on 12/15/18 12:28; Admin Dose 15 MG; Start 12/05/18 at 21:30 Oxycodone HCl (Roxicodone) 10 mg Q4H PRN PO .PAIN Last administered on 12/18/18 03:37; Admin Dose 10 MG; Start 12/05/18 at 21:30 Oxycodone HCl (Roxicodone) 5 mg Q4H PRN PO .PAIN Last administered on 12/16/18 22:53; Admin Dose 5 MG; Start 12/05/18 at 21:30 Hydromorphone HCl (Dilaudid) 1 mg Q3H PRN IV .BREAKTHROUGH PAIN Last administered on 12/06/18 06:58; Admin Dose 1 MG; Start 12/05/18 at 21:30 Ondansetron HCl (Zofran Inj) 4 mg Q4H PRN IV NAUSEA/VOMITING; Start 12/06/18 at 21:30 Gabapentin (Neurontin) 300 mg QHS PO Last administered on 12/17/18 20:40; Admin Dose 300 MG; Start 12/06/18 at 21:00 Pantoprazole (Protonix Tab) 40 mg DAILY@06 PO Last administered on 12/18/18 04:50; Admin Dose 40 MG; Start 12/07/18 at 06:00 Simethicone (Mylicon) 80 mg TID PRN PO .GAS; Start 12/05/18 at 21:30 Senna/Docusate Sodium (Senokot-S) 2 tab BID PRN PO .CONSTIPATION Last administered on 12/06/18 08:54; Admin Dose 2 TAB; Start 12/05/18 at 21:30 Magnesium Hydroxide (Milk Of Mag) 30 ml HS PRN PO .CONSTIPATION; Start 12/05/18 at 21:30 Bisacodyl (Dulcolax Supp) 10 mg DAILY PRN [place] .CONSTIPATION; Start 12/05/18 at 21:30 Sodium Biphosphate/ Sodium Phosphate (Fleet Enema) 133 ml DAILY PRN [place] .CONSTIPATION; Start 12/05/18 at 21:30 Diphenhydramine HCl (Benadryl) 25 mg Q4H PRN IV .ITCHING; Start 12/05/18 at 21:30 Naloxone HCl (Narcan) 0.2 mg Q2M PRN IV .RESP RATE; Start 12/05/18 at 21:30 Bethanechol Chloride (Urecholine) 25 mg URINARY CATH D/C PRN PO UNABLE TO VOID; Start 12/05/18 at 21:30 Aspirin (Halfprin) 81 mg BID PO Last administered on 12/18/18 10:01; Admin Dose 81 MG; Start 12/06/18 at 09:00 Vancomycin HCl (Vanco Iv Per Pharmacy) VANCOMYCIN PER PHARMACY PER PROTOCOL XX ; Start 12/11/18 at 11:30 Nystatin (Nystatin Powder) 1 applic BID TOP Last administered on 12/18/18 10:05; Admin Dose 1 APPLIC; Start 12/12/18 at 21:00 Cefepime HCl 50 ml @ 100 mls/hr Q12 IVPB Last administered on 12/18/18 10:01; Admin Dose 100 MLS/HR; Start 12/13/18 at 21:00 Vancomycin HCl 1.25 gm/Sodium Chloride 250 ml @ 83.333 mls/ hr Q12H IVPB Last administered on 12/18/18 04:34; Admin Dose 83.333 MLS/HR; Start 12/14/18 at 17:00 Albuterol (Proventil 0.083% (Neb)) 2.5 mg Q2H RESP THERAPY PRN HHN SHORTNESS OF BREATH; Start 12/15/18 at 12:00 Lidocaine (Lidoderm) 1 patch DAILY TD Last administered on 12/18/18 10:02; Admin Dose 1 PATCH; Start 12/15/18 at 12:00 Acetaminophen (Tylenol Tab) 1,000 mg Q8H PRN PO pain Last administered on 4/8/19at 21:29; Admin Dose 1,000 MG; Start 12/16/18 at 19:00 Alteplase, Recombinant (Cathflo (Activase)) 2 mg MAY REPEAT X1 PRN CATHETER IF CATHETER REMAINS OCCULUDED Last administered on 12/17/18at 13:20; Admin Dose 2 MG; Start 12/17/18 at 08:30 Sodium Hypochlorite (Dakin'S (Dilute )) 1 applic BID TOP ; Start 12/18/18 at 09:00 OZZIE SOLOMON NP Dec 18, 2018 13:17
--- NOTE | 2018-12-18 13:36 | PN ---
Date/Time of Note Date/Time of Note DATE: 12/18/18 TIME: 13:34 Objective Vitals Vital Signs Date Temp Pulse Resp B/P (MAP) Pulse Ox O2 O2 Flow FiO2 Time Delivery Rate 12/18/18 98.0 69 19 132/62 95 07:52 (85) 12/18/18 Room Air 01:41 12/15/18 21 10:46 Intake and Output 12/17/18 12/17/18 12/18/18 1414:59 22:59 06:59 IntakeIntake Total 780 ml 900 ml 400 ml OutputOutput Total 500 ml BalanceBalance 780 ml 900 ml -100 ml Results Result Diagram: 12/17/18 0742 12/17/18 0437 Medications Medications Current Medications Albuterol (Ventolin Hfa) 2 puff Q4H PRN INH WHEEZING AND SOB; Start 12/01/18 at 21:00; Status Hold Ascorbic Acid (Vitamin C) 500 mg BID PO Last administered on 12/18/18at 10:01; A dmin Dose 500 MG; Start 12/01/18 at 21:00 Bupropion HCl (Wellbutrin Xl) 300 mg DAILY PO Last administered on 12/18/18at 10:01; Admin Dose 300 MG; Start 12/02/18 at 09:00 Cholecalciferol (Vitamin D) 1,000 unit DAILY PO Last administered on 12/18/18 10:01; Admin Dose 1,000 UNIT; Start 12/02/18 at 09:00 Diclofenac Sodium (Voltaren 1% Gel) 2 gm TID PRN TP PAIN; Start 12/01/18 at 21:00 Levothyroxine Sodium (Synthroid) 100 mcg BEFORE BREAKFAST PO Last administered on 12/18/18at 04:50; Admin Dose 100 MCG; Start 12/02/18 at 07:00 Lisinopril (Zestril) 5 mg DAILY PO Last administered on 12/18/18at 10:02; Admin Dose 5 MG; Start 12/02/18 at 09:00 Magnesium Hydroxide (Milk Of Mag) 30 ml DAILY PRN PO CONSTIPATION; Start 12/01/18 at 21:00 Multivitamins Therapeutic (Theragran) 1 tab DAILY PO Last administered on 12/18/18at 09:00; Admin Dose 1 TAB; Start 12/02/18 at 09:00 Polyethylene Glycol (Miralax) 17 gm DAILY PO Last administered on 12/08/18 10:15; Admin Dose 17 GM; Start 12/02/18 at 09:00 Senna (Senokot) 1 tab BID PO Last administered on 12/17/18 20:40; Admin Dose 1 TAB; Start 12/01/18 at 21:00 Vitamin B Complex/ Vitamin C (Berocca) 1 cap DAILY PO Last administered on 12/17/18 10:44; Admin Dose 1 CAP; Start 12/02/18 at 09:00 Fish Oil (Fish Oil) 1,000 mg DAILY PO Last administered on 12/18/18 10:01; Admin Dose 1,000 MG; Start 12/02/18 at 09:00 Docusate Sodium (Colace) 100 mg Q12H PRN PO .CONSTIPATION; Start 12/01/18 at 22:00 Bisacodyl (Dulcolax) 5 mg DAILY PRN PO .CONSTIPATION; Start 12/01/18 at 22:00 Miscellaneous Information (Pending Santyl Order For Wound Care) This patient ruano... PRN PRN XX WOUND CARE; Start 12/02/18 at 00:00 Collagenase (Santyl) 1 applic BID TOP Last administered on 12/18/18 10:02; Admin Dose 1 APPLIC; Start 12/02/18 at 11:30 Lidocaine (Xylocaine 1% (Mpf)) 30 ml ONCE PRN INJ aspiration ; Start 12/04/18 at 17:30 IV Flush (NS 3 ml) 3 ml PER PROTOCOL IV ; Start 12/05/18 at 21:30 Oxycodone HCl (Roxicodone) 15 mg Q4H PRN PO .PAIN Last administered on 12/15/18 12:28; Admin Dose 15 MG; Start 12/05/18 at 21:30 Oxycodone HCl (Roxicodone) 10 mg Q4H PRN PO .PAIN Last administered on 12/18/18 03:37; Admin Dose 10 MG; Start 12/05/18 at 21:30 Oxycodone HCl (Roxicodone) 5 mg Q4H PRN PO .PAIN Last administered on 12/16/18 22:53; Admin Dose 5 MG; Start 12/05/18 at 21:30 Hydromorphone HCl (Dilaudid) 1 mg Q3H PRN IV .BREAKTHROUGH PAIN Last administ ered on 12/06/18at 06:58; Admin Dose 1 MG; Start 12/05/18 at 21:30 Ondansetron HCl (Zofran Inj) 4 mg Q4H PRN IV NAUSEA/VOMITING; Start 12/06/18 at 21:30 Gabapentin (Neurontin) 300 mg QHS PO Last administered on 12/17/18at 20:40; Admin Dose 300 MG; Start 12/06/18 at 21:00 Pantoprazole (Protonix Tab) 40 mg DAILY@06 PO Last administered on 12/18/18at 04:50; Admin Dose 40 MG; Start 12/07/18 at 06:00 Simethicone (Mylicon) 80 mg TID PRN PO .GAS; Start 12/05/18 at 21:30 Senna/Docusate Sodium (Senokot-S) 2 tab BID PRN PO .CONSTIPATION Last administered on 12/06/18at 08:54; Admin Dose 2 TAB; Start 12/05/18 at 21:30 Magnesium Hydroxide (Milk Of Mag) 30 ml HS PRN PO .CONSTIPATION; Start 12/05/18 at 21:30 Bisacodyl (Dulcolax Supp) 10 mg DAILY PRN [place] .CONSTIPATION; Start 12/05/18 at 21:30 Sodium Biphosphate/ Sodium Phosphate (Fleet Enema) 133 ml DAILY PRN [place] .CONSTIPATION; Start 12/05/18 at 21:30 Diphenhydramine HCl (Benadryl) 25 mg Q4H PRN IV .ITCHING; Start 12/05/18 at 21:30 Naloxone HCl (Narcan) 0.2 mg Q2M PRN IV .RESP RATE; Start 12/05/18 at 21:30 Bethanechol Chloride (Urecholine) 25 mg URINARY CATH D/C PRN PO UNABLE TO VOID; Start 12/05/18 at 21:30 Aspirin (Halfprin) 81 mg BID PO Last administered on 12/18/18at 10:01; Admin Dose 81 MG; Start 12/06/18 at 09:00 Vancomycin HCl (Vanco Iv Per Pharmacy) VANCOMYCIN PER PHARMACY PER PROTOCOL XX ; Start 12/11/18 at 11:30 Nystatin (Nystatin Powder) 1 applic BID TOP Last administered on 12/18/18 10:05; Admin Dose 1 APPLIC; Start 12/12/18 at 21:00 Cefepime HCl 50 ml @ 100 mls/hr Q12 IVPB Last administered on 12/18/18 10:01; Admin Dose 100 MLS/HR; Start 12/13/18 at 21:00 Vancomycin HCl 1.25 gm/Sodium Chloride 250 ml @ 83.333 mls/ hr Q12H IVPB Last administered on 12/18/18 04:34; Admin Dose 83.333 MLS/HR; Start 12/14/18 at 17:00 Albuterol (Proventil 0.083% (Neb)) 2.5 mg Q2H RESP THERAPY PRN HHN SHORTNESS OF BREATH; Start 12/15/18 at 12:00 Lidocaine (Lidoderm) 1 patch DAILY TD Last administered on 12/18/18 10:02; Admin Dose 1 PATCH; Start 12/15/18 at 12:00 Acetaminophen (Tylenol Tab) 1,000 mg Q8H PRN PO pain Last administered on 12/16/18 21:29; Admin Dose 1,000 MG; Start 12/16/18 at 19:00 Alteplase, Recombinant (Cathflo (Activase)) 2 mg MAY REPEAT X1 PRN CATHETER IF CATHETER REMAINS OCCULUDED Last administered on 12/17/18 13:20; Admin Dose 2 MG; Start 12/17/18 at 08:30 Sodium Hypochlorite (Dakin'S (Dilute 1/40)) 1 applic BID TOP ; Start 12/18/18 at 09:00 VTE Prophylaxis Risk score (from Nsg)>0 risk: 8 SCD applied (from Ns): Yes Lines/Catheters IV Catheter Type: Schaeffer in Place: No Assessment/Plan Hospital Course Subjective Patient doing well, still frustrated over her overall knee pain/progress Objective Physical exam General: Patient is laying in bed and answers questions appropriately Mentation: Patient is alert and oriented 4, Head: Normocephalic atraumatic Eyes: EOMI, pupils reactive to light Neck: Supple, nontender, midline Respiratory: Clear to auscultation bilaterally Cardiovascular: regular rate, no obvious murmurs Gastrointestinal: non-tender to palpation, bowel sounds heard. Neurological: Moves all extremities spontaneously Skin: Right knee brace, bandaged, CDI at surgical site, however mildly warm, no significant erythema Assessment/Plan 1. Septic R knee joint s/p irrigation and debridement of right knee arthroplasty 12/05/18 - Ortho on board and recommendations appreciated. Continue IV antibiotics until 01/18 then will need to continue PO antibiotics for 3-6 months - pain control 2. 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 Chronic spinal disease - mild discomfort given aerobed was aggravating her back pain. 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 Lumbar spine and thoracic spine CT show signs of stenosis though no acute fractures. 4. osteoarthritis - pain control 5. urinary tract infection: - Cultures growing ecoli and lactobacillus - asymptomatic 6. Strep Bacteremia - continue current antibiotics - repeat cultures negative 7. Mechanical fall - s/p stable removal from scalp 8. Disposition - CM on board for SNF placement HARJEET PATINO Dec 18, 2018 13:36
[2018-12-18 14:00] VITALS: BP 143/67; PULSE 79; RESP 18
[2018-12-18] MEDS: SODIUM HYPOCHLORITE (1/40) 1 LITER BTL TOP SCH ×2 (14:38→21:15)
[2018-12-18 20:30] VITALS: BP 111/55; PULSE 81; RESP 18
[2018-12-18] MEDS: GABAPENTIN 300 MG CAP PO SCH (21:14)
[2018-12-19] MEDS: oxyCODONE 5 MG TAB PO PRN (03:46)
[2018-12-19] MEDS: VANCOMYCIN HCL 1.25 GM in SOD CHLORIDE 0.9% 250 ML IVPB SCH ×2 (05:44→17:14)
[2018-12-19] MEDS: PANTOPRAZOLE (EC) 40 MG TAB PO SCH (05:44)
[2018-12-19] MEDS: LEVOTHYROXINE 100 MCG TAB PO SCH (07:43)
[2018-12-19 08:05] VITALS: BP 140/70; PULSE 78; RESP 18
[2018-12-19] MEDS: CHOLECALCIFEROL 1,000 UNIT TAB PO SCH (09:00)
[2018-12-19] MEDS: SENNA TAB PO SCH ×2 (09:00→21:00)
[2018-12-19] MEDS: POLYETHYLENE GLYCOL 17 GM PACKET PO SCH (09:00)
[2018-12-19] MEDS: LIDOCAINE 5% PATCH TD SCH (09:30)
[2018-12-19] MEDS: FISH OIL 1,000 MG CAP PO SCH (09:32)
[2018-12-19] MEDS: ASCORBIC ACID 500 MG TAB PO SCH ×2 (09:32→21:37)
[2018-12-19] MEDS: BUPROPION (XL) 150 MG TAB PO SCH (09:32)
[2018-12-19] MEDS: LISINOPRIL 5 MG TAB PO SCH (09:32)
[2018-12-19] MEDS: VITAMIN B COMPLEX/VIT C CAP PO SCH (09:32)
[2018-12-19] MEDS: ASPIRIN (EC) 81 MG TAB PO SCH ×2 (09:32→21:37)
[2018-12-19] MEDS: MULTIVITAMINS THERAPEUTIC TAB PO SCH (09:32)
[2018-12-19] MEDS: CEFEPIME 1GM/50 ML (PMX) 50 ML IVPB SCH ×2 (09:32→21:37)
[2018-12-19] MEDS: COLLAGENASE 5 GM (UD JAR) TOP SCH ×2 (09:55→21:38)
[2018-12-19] MEDS: SODIUM HYPOCHLORITE (1/40) 1 LITER BTL TOP SCH ×2 (09:55→21:37)
[2018-12-19] MEDS: NYSTATIN 30 GM POWDER BTL TOP SCH ×2 (09:56→21:38)
--- NOTE | 2018-12-19 13:05 | CONS ---
Assessment/Plan Assessment/Plan Hospital Course (Demo Recall) No acute changes Alert, feels good Antimicrobials: Vancomycin and cefepime Microbiology: Blood culture on admission grew strep, urine culture grew E. coli, MRSA swab negative, repeat blood cultures negative. Sacral wound cx + MRSA/Proteus/Strep 2D echo revealed no vegetations Physical examination: This is well-developed well-nourished elderly woman who is alert in no distress. Head atraumatic normocephalic neck is supple. Chest rise symmetrical breath sounds clear. Heart: S1-S2. Abdomen soft, bowel tones present. Extremities with right knee erythema and swelling Assessment: 1. Status post sepsis, present on admission 2. Streptococcal bacteremia 2 to #3 3. 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 Urinary tract infection 5. History of left total knee replacement 6. History of multilevel discectomy and posterior fusion from L1-L3, please see CT in the chart Plan: Remains stable, sacral wound still open with drainage will repeat cx, continue on current abx Consultation Date/Type/Reason Admit Date/Time Dec 01, 2018 at 19:24 Initial Consult Date Type of Consult id Date/Time of Note DATE: 12/19/18 TIME: 13:04 Exam/Review of Systems Exam Vitals Vital Signs Date Temp Pulse Resp B/P (MAP) Pulse Ox O2 O2 Flow FiO2 Time Delivery Rate 12/19/18 98.4 78 18 140/70 90 Room Air 08:05 (93) 12/15/18 21 10:46 Intake and Output 12/18/18 12/18/18 12/19/18 1515:00 23:00 07:00 IntakeIntake Total 650 ml 570 ml 290 ml BalanceBalance 650 ml 570 ml 290 ml Results Result Diagram: 12/19/18 0343 12/19/18 0343 Results 24hrs Laboratory Tests Test 12/19/18 03:43 White Blood Count 7.5 Red Blood Count 3.62 L Hemoglobin 9.8 L Hematocrit 31.9 L Mean Corpuscular Volume 88.1 Mean Corpuscular Hemoglobin 27.1 L Mean Corpuscular Hemoglobin Concent 30.7 L Red Cell Distribution Width 17.6 H Platelet Count 345 Mean Platelet Volume 9.3 Immature Granulocytes % 0.400 Neutrophils % 63.3 Lymphocytes % 21.5 Monocytes % 12.3 H Eosinophils % 1.7 Basophils % 0.8 Nucleated Red Blood Cells % 0.0 Immature Granulocytes # 0.030 Neutrophils # 4.7 Lymphocytes # 1.6 Monocytes # 0.9 Eosinophils # 0.1 Basophils # 0.1 Nucleated Red Blood Cells # 0.0 Sodium Level 143 Potassium Level 3.8 Chloride Level 108 Carbon Dioxide Level 29 Anion Gap 6 Blood Urea Nitrogen 11 Creatinine 0.45 Est Glomerular Filtrat Rate mL/min Glucose Level 112 Calcium Level 8.8 Phosphorus Level 3.9 Magnesium Level 2.0 Vancomycin Level Trough 14.5 Medications Medication Current Medications Albuterol (Ventolin Hfa) 2 puff Q4H PRN INH WHEEZING AND SOB; Start 12/01/18 at 21:00; Status Hold Ascorbic Acid (Vitamin C) 500 mg BID PO Last administered on 12/19/18 09:32; Admin Dose 500 MG; Start 12/01/18 at 21:00 Bupropion HCl (Wellbutrin Xl) 300 mg DAILY PO Last administered on 12/19/18 09:32; Admin Dose 300 MG; Start 12/02/18 at 09:00 Cholecalciferol (Vitamin D) 1,000 unit DAILY PO Last administered on 12/18/18 10:01; Admin Dose 1,000 UNIT; Start 12/02/18 at 09:00 Diclofenac Sodium (Voltaren 1% Gel) 2 gm TID PRN TP PAIN; Start 12/01/18 at 21:00 Levothyroxine Sodium (Synthroid) 100 mcg BEFORE BREAKFAST PO Last administered on 12/19/18 07:43; Admin Dose 100 MCG; Start 12/02/18 at 07:00 Lisinopril (Zestril) 5 mg DAILY PO Last administered on 12/19/18 09:32; Admin Dose 5 MG; Start 12/02/18 at 09:00 Magnesium Hydroxide (Milk Of Mag) 30 ml DAILY PRN PO CONSTIPATION; Start 12/01/18 at 21:00 Multivitamins Therapeutic (Theragran) 1 tab DAILY PO Last administered on 12/19/18 09:32; Admin Dose 1 TAB; Start 12/02/18 at 09:00 Polyethylene Glycol (Miralax) 17 gm DAILY PO Last administered on 12/08/18 10:15; Admin Dose 17 GM; Start 12/02/18 at 09:00 Senna (Senokot) 1 tab BID PO Last administered on 12/17/18 20:40; Admin Dose 1 TAB; Start 12/01/18 at 21:00 Vitamin B Complex/ Vitamin C (Berocca) 1 cap DAILY PO Last administered on 12/19/18 09:32; Admin Dose 1 CAP; Start 12/02/18 at 09:00 Fish Oil (Fish Oil) 1,000 mg DAILY PO Last administered on 12/19/18 09:32; Admin Dose 1,000 MG; Start 12/02/18 at 09:00 Docusate Sodium (Colace) 100 mg Q12H PRN PO .CONSTIPATION; Start 12/01/18 at 22:00 Bisacodyl (Dulcolax) 5 mg DAILY PRN PO .CONSTIPATION; Start 12/01/18 at 22:00 Miscellaneous Information (Pending Santyl Order For Wound Care) This patient ruano... PRN PRN XX WOUND CARE; Start 12/02/18 at 00:00 Collagenase (Santyl) 1 applic BID TOP Last administered on 12/19/18 09:55; Admin Dose 1 APPLIC; Start 12/02/18 at 11:30 Lidocaine (Xylocaine 1% (Mpf)) 30 ml ONCE PRN INJ aspiration ; Start 12/04/18 at 17:30 IV Flush (NS 3 ml) 3 ml PER PROTOCOL IV ; Start 12/05/18 at 21:30 Oxycodone HCl (Roxicodone) 15 mg Q4H PRN PO .PAIN Last administered on 12/15/18 12:28; Admin Dose 15 MG; Start 12/05/18 at 21:30 Oxycodone HCl (Roxicodone) 10 mg Q4H PRN PO .PAIN Last administered on 12/18/18 03:37; Admin Dose 10 MG; Start 12/05/18 at 21:30 Oxycodone HCl (Roxicodone) 5 mg Q4H PRN PO .PAIN Last administered on 12/19/18 03:46; Admin Dose 5 MG; Start 12/05/18 at 21:30 Hydromorphone HCl (Dilaudid) 1 mg Q3H PRN IV .BREAKTHROUGH PAIN Last administered on 12/06/18 06:58; Admin Dose 1 MG; Start 12/05/18 at 21:30 Ondansetron HCl (Zofran Inj) 4 mg Q4H PRN IV NAUSEA/VOMITING; Start 12/06/18 at 21:30 Gabapentin (Neurontin) 300 mg QHS PO Last administered on 12/18/18at 21:14; Admin Dose 300 MG; Start 12/06/18 at 21:00 Pantoprazole (Protonix Tab) 40 mg DAILY@06 PO Last administered on 12/19/18 05:44; Admin Dose 40 MG; Start 12/07/18 at 06:00 Simethicone (Mylicon) 80 mg TID PRN PO .GAS; Start 12/05/18 at 21:30 Senna/Docusate Sodium (Senokot-S) 2 tab BID PRN PO .CONSTIPATION Last adminis tered on 12/06/18at 08:54; Admin Dose 2 TAB; Start 12/05/18 at 21:30 Magnesium Hydroxide (Milk Of Mag) 30 ml HS PRN PO .CONSTIPATION; Start 12/05/18 at 21:30 Bisacodyl (Dulcolax Supp) 10 mg DAILY PRN [place] .CONSTIPATION; Start 12/05/18 at 21:30 Sodium Biphosphate/ Sodium Phosphate (Fleet Enema) 133 ml DAILY PRN [place] .CONSTIPATION; Start 12/05/18 at 21:30 Diphenhydramine HCl (Benadryl) 25 mg Q4H PRN IV .ITCHING; Start 12/05/18 at 21:30 Naloxone HCl (Narcan) 0.2 mg Q2M PRN IV .RESP RATE; Start 12/05/18 at 21:30 Bethanechol Chloride (Urecholine) 25 mg URINARY CATH D/C PRN PO UNABLE TO VOID; Start 12/05/18 at 21:30 Aspirin (Halfprin) 81 mg BID PO Last administered on 12/19/18at 09:32; Admin Dose 81 MG; Start 12/06/18 at 09:00 Vancomycin HCl (Vanco Iv Per Pharmacy) VANCOMYCIN PER PHARMACY PER PROTOCOL XX ; Start 12/11/18 at 11:30 Nystatin (Nystatin Powder) 1 applic BID TOP Last administered on 12/19/18at 09:56; Admin Dose 1 APPLIC; Start 12/12/18 at 21:00 Cefepime HCl 50 ml @ 100 mls/hr Q12 IVPB Last administered on 12/19/18 09:32; Admin Dose 100 MLS/HR; Start 12/13/18 at 21:00 Vancomycin HCl 1.25 gm/Sodium Chloride 250 ml @ 83.333 mls/ hr Q12H IVPB Last administered on 12/19/18 05:44; Admin Dose 83.333 MLS/HR; Start 12/14/18 at 17:00 Albuterol (Proventil 0.083% (Neb)) 2.5 mg Q2H RESP THERAPY PRN HHN SHORTNESS OF BREATH; Start 12/15/18 at 12:00 Lidocaine (Lidoderm) 1 patch DAILY TD Last administered on 12/19/18 09:30; Admin Dose 1 PATCH; Start 12/15/18 at 12:00 Acetaminophen (Tylenol Tab) 1,000 mg Q8H PRN PO pain Last administered on 12/16/18 21:29; Admin Dose 1,000 MG; Start 12/16/18 at 19:00 Alteplase, Recombinant (Cathflo (Activase)) 2 mg MAY REPEAT X1 PRN CATHETER IF CATHETER REMAINS OCCULUDED Last administered on 12/17/18 13:20; Admin Dose 2 MG; Start 12/17/18 at 08:30 Sodium Hypochlorite (Dakin'S (Dilute )) 1 applic BID TOP Last administered on 12/19/18 09:55; Admin Dose 1 APPLIC; Start 12/18/18 at 09:00 OZZIE SOLOMON NP Dec 19, 2018 13:05
[2018-12-19 14:17] VITALS: BP 109/65; PULSE 86; RESP 18
--- NOTE | 2018-12-19 16:06 | PN ---
Date/Time of Note Date/Time of Note DATE: 12/19/18 TIME: 16:06 Objective Vitals Vital Signs Date Temp Pulse Resp B/P (MAP) Pulse Ox O2 O2 Flow FiO2 Time Delivery Rate 12/19/18 98.0 86 18 109/65 94 Room Air 14:17 (80) 12/15/18 21 10:46 Intake and Output 12/18/18 12/18/18 12/19/18 1515:00 23:00 07:00 IntakeIntake Total 650 ml 570 ml 290 ml BalanceBalance 650 ml 570 ml 290 ml Results Result Diagram: 12/19/18 0343 12/19/18 0343 Medications Medications Current Medications Albuterol (Ventolin Hfa) 2 puff Q4H PRN INH WHEEZING AND SOB; Start 12/01/18 at 21:00; Status Hold Ascorbic Acid (Vitamin C) 500 mg BID PO Last administered on 12/19/18 09:32; Admin Dose 500 MG; Start 12/01/18 at 21:00 Bupropion HCl (Wellbutrin Xl) 300 mg DAILY PO Last administered on 12/19/18 09:32; Admin Dose 300 MG; Start 12/02/18 at 09:00 Cholecalciferol (Vitamin D) 1,000 unit DAILY PO Last administered on 12/18/18 10:01; Admin Dose 1,000 UNIT; Start 12/02/18 at 09:00 Diclofenac Sodium (Voltaren 1% Gel) 2 gm TID PRN TP PAIN; Start 12/01/18 at 21:00 Levothyroxine Sodium (Synthroid) 100 mcg BEFORE BREAKFAST PO Last administered on 12/19/18 07:43; Admin Dose 100 MCG; Start 12/02/18 at 07:00 Lisinopril (Zestril) 5 mg DAILY PO Last administered on 12/19/18 09:32; Admin Dose 5 MG; Start 12/02/18 at 09:00 Magnesium Hydroxide (Milk Of Mag) 30 ml DAILY PRN PO CONSTIPATION; Start 12/01/18 at 21:00 Multivitamins Therapeutic (Theragran) 1 tab DAILY PO Last administered on 12/19/18 09:32; Admin Dose 1 TAB; Start 12/02/18 at 09:00 Polyethylene Glycol (Miralax) 17 gm DAILY PO Last administered on 12/08/18 10:15; Admin Dose 17 GM; Start 12/02/18 at 09:00 Senna (Senokot) 1 tab BID PO Last administered on 12/17/18 20:40; Admin Dose 1 TAB; Start 12/01/18 at 21:00 Vitamin B Complex/ Vitamin C (Berocca) 1 cap DAILY PO Last administered on 12/19/18 09:32; Admin Dose 1 CAP; Start 12/02/18 at 09:00 Fish Oil (Fish Oil) 1,000 mg DAILY PO Last administered on 12/19/18 09:32; Admin Dose 1,000 MG; Start 12/02/18 at 09:00 Docusate Sodium (Colace) 100 mg Q12H PRN PO .CONSTIPATION; Start 12/01/18 at 22 :00 Bisacodyl (Dulcolax) 5 mg DAILY PRN PO .CONSTIPATION; Start 12/01/18 at 22:00 Miscellaneous Information (Pending Santyl Order For Wound Care) This patient ruano... PRN PRN XX WOUND CARE; Start 12/02/18 at 00:00 Collagenase (Santyl) 1 applic BID TOP Last administered on 12/19/18 09:55; Admin Dose 1 APPLIC; Start 12/02/18 at 11:30 Lidocaine (Xylocaine 1% (Mpf)) 30 ml ONCE PRN INJ aspiration ; Start 12/04/18 at 17:30 IV Flush (NS 3 ml) 3 ml PER PROTOCOL IV ; Start 12/05/18 at 21:30 Oxycodone HCl (Roxicodone) 15 mg Q4H PRN PO .PAIN Last administered on 12/15/18 12:28; Admin Dose 15 MG; Start 12/05/18 at 21:30 Oxycodone HCl (Roxicodone) 10 mg Q4H PRN PO .PAIN Last administered on 12/18/18 03:37; Admin Dose 10 MG; Start 12/05/18 at 21:30 Oxycodone HCl (Roxicodone) 5 mg Q4H PRN PO .PAIN Last administered on 12/19/18 03:46; Admin Dose 5 MG; Start 12/05/18 at 21:30 Hydromorphone HCl (Dilaudid) 1 mg Q3H PRN IV .BREAKTHROUGH PAIN Last administered on 12/06/18 06:58; Admin Dose 1 MG; Start 12/05/18 at 21:30 Ondansetron HCl (Zofran Inj) 4 mg Q4H PRN IV NAUSEA/VOMITING; Start 12/06/18 at 21:30 Gabapentin (Neurontin) 300 mg QHS PO Last administered on 12/18/18at 21:14; Admin Dose 300 MG; Start 12/06/18 at 21:00 Pantoprazole (Protonix Tab) 40 mg DAILY@06 PO Last administered on 12/19/18at 05:44; Admin Dose 40 MG; Start 12/07/18 at 06:00 Simethicone (Mylicon) 80 mg TID PRN PO .GAS; Start 12/05/18 at 21:30 Senna/Docusate Sodium (Senokot-S) 2 tab BID PRN PO .CONSTIPATION Last adm inistered on 12/06/18at 08:54; Admin Dose 2 TAB; Start 12/05/18 at 21:30 Magnesium Hydroxide (Milk Of Mag) 30 ml HS PRN PO .CONSTIPATION; Start 12/05/18 at 21:30 Bisacodyl (Dulcolax Supp) 10 mg DAILY PRN [place] .CONSTIPATION; Start 12/05/18 at 21:30 Sodium Biphosphate/ Sodium Phosphate (Fleet Enema) 133 ml DAILY PRN [place] .CONSTIPATION; Start 12/05/18 at 21:30 Diphenhydramine HCl (Benadryl) 25 mg Q4H PRN IV .ITCHING; Start 12/05/18 at 21:30 Naloxone HCl (Narcan) 0.2 mg Q2M PRN IV .RESP RATE; Start 12/05/18 at 21:30 Bethanechol Chloride (Urecholine) 25 mg URINARY CATH D/C PRN PO UNABLE TO VOID; Start 12/05/18 at 21:30 Aspirin (Halfprin) 81 mg BID PO Last administered on 12/19/18at 09:32; Admin Do se 81 MG; Start 12/06/18 at 09:00 Vancomycin HCl (Vanco Iv Per Pharmacy) VANCOMYCIN PER PHARMACY PER PROTOCOL XX ; Start 12/11/18 at 11:30 Nystatin (Nystatin Powder) 1 applic BID TOP Last administered on 12/19/18 09:56; Admin Dose 1 APPLIC; Start 12/12/18 at 21:00 Cefepime HCl 50 ml @ 100 mls/hr Q12 IVPB Last administered on 12/19/18 09:32; Admin Dose 100 MLS/HR; Start 12/13/18 at 21:00 Vancomycin HCl 1.25 gm/Sodium Chloride 250 ml @ 83.333 mls/ hr Q12H IVPB Last administered on 12/19/18at 05:44; Admin Dose 83.333 MLS/HR; Start 12/14/18 at 17:00 Albuterol (Proventil 0.083% (Neb)) 2.5 mg Q2H RESP THERAPY PRN HHN SHORTNESS OF BREATH; Start 12/15/18 at 12:00 Lidocaine (Lidoderm) 1 patch DAILY TD Last administered on 12/19/18 09:30; Admin Dose 1 PATCH; Start 12/15/18 at 12:00 Acetaminophen (Tylenol Tab) 1,000 mg Q8H PRN PO pain Last administered on 12/16/18 21:29; Admin Dose 1,000 MG; Start 12/16/18 at 19:00 Alteplase, Recombinant (Cathflo (Activase)) 2 mg MAY REPEAT X1 PRN CATHETER IF CATHETER REMAINS OCCULUDED Last administered on 12/17/18 13:20; Admin Dose 2 MG; Start 12/17/18 at 08:30 Sodium Hypochlorite (Dakin'S (Dilute 140)) 1 applic BID TOP Last administered on 12/19/18 09:55; Admin Dose 1 APPLIC; Start 12/18/18 at 09:00 VTE Prophylaxis Risk score (from Nsg)>0 risk: 4 SCD applied (from Ns): Yes Lines/Catheters IV Catheter Type: Schaeffer in Place: No Assessment/Plan Hospital Course Subjective Patient doing well, still frustrated over her overall knee pain/progress Objective Physical exam General: Patient is laying in bed and answers questions appropriately Mentation: Patient is alert and oriented 4, Head: Normocephalic atraumatic Eyes: EOMI, pupils reactive to light Neck: Supple, nontender, midline Respiratory: Clear to auscultation bilaterally Cardiovascular: regular rate, no obvious murmurs Gastrointestinal: non-tender to palpation, bowel sounds heard. Neurological: Moves all extremities spontaneously Skin: Right knee brace, bandaged, CDI at surgical site, however mildly warm, no significant erythema Assessment/Plan 1. Septic R knee joint s/p irrigation and debridement of right knee arthroplasty 12/05/18 - Ortho on board and recommendations appreciated. Continue IV antibiotics until 01/18 then will need to continue PO antibiotics for 3-6 months - pain control 2. 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 Chronic spinal disease - mild discomfort given aerobed was aggravating her back pain. 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 Lumbar spine and thoracic spine CT show signs of stenosis though no acute fractures. 4. osteoarthritis - pain control 5. urinary tract infection: - Cultures growing ecoli and lactobacillus - asymptomatic 6. Strep Bacteremia - continue current antibiotics - repeat cultures negative 7. Mechanical fall - s/p stable removal from scalp 8. Disposition - CM on board for SNF placement, however very difficult. HARJEET PATINO Dec 19, 2018 16:06
[2018-12-19 19:40] VITALS: BP 163/67; PULSE 77; RESP 18
[2018-12-19] MEDS: GABAPENTIN 300 MG CAP PO SCH (21:37)
[2018-12-20] MEDS: oxyCODONE 5 MG TAB PO PRN ×2 (00:10→22:38)
[2018-12-20 01:14] VITALS: BP 127/58; PULSE 70; RESP 18
[2018-12-20] MEDS: ACETAMINOPHEN 500 MG TAB PO PRN (04:15)
[2018-12-20] MEDS: LEVOTHYROXINE 100 MCG TAB PO SCH (05:32)
[2018-12-20] MEDS: PANTOPRAZOLE (EC) 40 MG TAB PO SCH (05:32)
[2018-12-20] MEDS: VANCOMYCIN HCL 1.25 GM in SOD CHLORIDE 0.9% 250 ML IVPB SCH ×2 (05:32→17:22)
[2018-12-20 08:10] VITALS: BP 119/58; PULSE 63; RESP 18
[2018-12-20] MEDS: FISH OIL 1,000 MG CAP PO SCH (08:43)
[2018-12-20] MEDS: LISINOPRIL 5 MG TAB PO SCH (08:43)
[2018-12-20] MEDS: VITAMIN B COMPLEX/VIT C CAP PO SCH (08:43)
[2018-12-20] MEDS: ASCORBIC ACID 500 MG TAB PO SCH ×2 (08:43→20:40)
[2018-12-20] MEDS: MULTIVITAMINS THERAPEUTIC TAB PO SCH (08:43)
[2018-12-20] MEDS: LIDOCAINE 5% PATCH TD SCH (08:43)
[2018-12-20] MEDS: ASPIRIN (EC) 81 MG TAB PO SCH ×2 (08:43→20:40)
[2018-12-20] MEDS: CHOLECALCIFEROL 1,000 UNIT TAB PO SCH (08:43)
[2018-12-20] MEDS: BUPROPION (XL) 150 MG TAB PO SCH (08:44)
[2018-12-20] MEDS: POLYETHYLENE GLYCOL 17 GM PACKET PO SCH (08:44)
[2018-12-20] MEDS: SENNA TAB PO SCH ×3 (08:44→20:48)
[2018-12-20] MEDS: COLLAGENASE 5 GM (UD JAR) TOP SCH ×2 (08:48→20:40)
[2018-12-20] MEDS: NYSTATIN 30 GM POWDER BTL TOP SCH ×2 (08:53→20:42)
[2018-12-20] MEDS: SODIUM HYPOCHLORITE (1/40) 1 LITER BTL TOP SCH ×2 (08:53→20:41)
[2018-12-20] MEDS: CEFEPIME 1GM/50 ML (PMX) 50 ML IVPB SCH ×2 (09:00→20:40)
--- NOTE | 2018-12-20 11:44 | CONS ---
Assessment/Plan Assessment/Plan Hospital Course (Demo Recall) No acute changes Antimicrobials: Vancomycin and cefepime Microbiology: Blood culture on admission grew strep, urine culture grew E. coli, MRSA swab negative, repeat blood cultures negative. Sacral wound cx + MRSA/Proteus/Strep 2D echo revealed no vegetations Physical examination: This is well-developed well-nourished elderly woman who is alert in no distress. Head atraumatic normocephalic neck is supple. Chest rise symmetrical breath sounds clear. Heart: S1-S2. Abdomen soft, bowel tones present. Extremities with right knee erythema and swelling Assessment: 1. Status post sepsis, present on admission 2. Streptococcal bacteremia 2 to #3 3. 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 Urinary tract infection 5. History of left total knee replacement 6. History of multilevel discectomy and posterior fusion from L1-L3, please see CT in the chart Plan: Remains stable, pending repeat sacral wound cx, continue on current abx. Anticipate to complete 6 weeks, if sacral wound heals will change to Rocephin last dose January 18. Will dw ortho if pt needs to be on lifetime suppression with oral abx after that Consultation Date/Type/Reason Admit Date/Time Dec 01, 2018 at 19:24 Initial Consult Date Type of Consult id Date/Time of Note DATE: 12/20/18 TIME: 11:42 Exam/Review of Systems Exam Vitals Vital Signs Date Temp Pulse Resp B/P (MAP) Pulse Ox O2 O2 Flow FiO2 Time Delivery Rate 12/20/18 97.8 63 18 119/58 96 Room Air 08:10 (78) Intake and Output 12/19/18 12/19/18 12/20/18 1515:00 23:00 07:00 IntakeIntake Total 920 ml 1180 ml 360 ml BalanceBalance 920 ml 1180 ml 360 ml Results Result Diagram: 12/20/18 0427 12/20/18 0426 Results 24hrs Laboratory Tests Test 12/20/18 04:26 12/20/18 04:27 Sodium Level 143 Potassium Level 3.7 Chloride Level 105 Carbon Dioxide Level 27 Anion Gap 11 Blood Urea Nitrogen 11 Creatinine 0.47 Est Glomerular Filtrat Rate mL/min Glucose Level 98 Calcium Level 8.9 Phosphorus Level 3.9 Magnesium Level 1.9 White Blood Count 6.9 Red Blood Count 3.67 L Hemoglobin 9.8 L Hematocrit 32.0 L Mean Corpuscular Volume 87.2 Mean Corpuscular Hemoglobin 26.7 L Mean Corpuscular Hemoglobin Concent 30.6 L Red Cell Distribution Width 17.8 H Platelet Count 352 Mean Platelet Volume 9.5 Immature Granulocytes % 0.600 H Neutrophils % 58.2 Lymphocytes % 24.3 Monocytes % 13.9 H Eosinophils % 2.0 Basophils % 1.0 Nucleated Red Blood Cells % 0.0 Immature Granulocytes # 0.040 H Neutrophils # 4.0 Lymphocytes # 1.7 Monocytes # 1.0 H Eosinophils # 0.1 Basophils # 0.1 Nucleated Red Blood Cells # 0.0 Medications Medication Current Medications Albuterol (Ventolin Hfa) 2 puff Q4H PRN INH WHEEZING AND SOB; Start 12/01/18 at 21:00; Status Hold Ascorbic Acid (Vitamin C) 500 mg BID PO Last administered on 12/20/18 08:43; Admin Dose 500 MG; Start 12/01/18 at 21:00 Bupropion HCl (Wellbutrin Xl) 300 mg DAILY PO Last administered on 12/20/18 08:44; Admin Dose 300 MG; Start 12/02/18 at 09:00 Cholecalciferol (Vitamin D) 1,000 unit DAILY PO Last administered on 12/20/18 08:43; Admin Dose 1,000 UNIT; Start 12/02/18 at 09:00 Diclofenac Sodium (Voltaren 1% Gel) 2 gm TID PRN TP PAIN; Start 12/01/18 at 21:00 Levothyroxine Sodium (Synthroid) 100 mcg BEFORE BREAKFAST PO Last administered on 12/20/18 05:32; Admin Dose 100 MCG; Start 12/02/18 at 07:00 Lisinopril (Zestril) 5 mg DAILY PO Last administered on 12/20/18 08:43; Admin Dose 5 MG; Start 12/02/18 at 09:00 Magnesium Hydroxide (Milk Of Mag) 30 ml DAILY PRN PO CONSTIPATION; Start 12/01/18 at 21:00 Multivitamins Therapeutic (Theragran) 1 tab DAILY PO Last administered on 12/20/18 08:43; Admin Dose 1 TAB; Start 12/02/18 at 09:00 Polyethylene Glycol (Miralax) 17 gm DAILY PO Last administered on 12/08/18 10:15; Admin Dose 17 GM; Start 12/02/18 at 09:00 Senna (Senokot) 1 tab BID PO Last administered on 12/17/18 20:40; Admin Dose 1 TAB; Start 12/01/18 at 21:00 Vitamin B Complex/ Vitamin C (Berocca) 1 cap DAILY PO Last administered on 12/20/18 08:43; Admin Dose 1 CAP; Start 12/02/18 at 09:00 Fish Oil (Fish Oil) 1,000 mg DAILY PO Last administered on 12/20/18 08:43; Admin Dose 1,000 MG; Start 12/02/18 at 09:00 Docusate Sodium (Colace) 100 mg Q12H PRN PO .CONSTIPATION; Start 12/01/18 at 22:00 Bisacodyl (Dulcolax) 5 mg DAILY PRN PO .CONSTIPATION; Start 12/01/18 at 22:00 Miscellaneous Information (Pending Santyl Order For Wound Care) This patient ruano... PRN PRN XX WOUND CARE; Start 12/02/18 at 00:00 Collagenase (Santyl) 1 applic BID TOP Last administered on 12/20/18 08:48; Admin Dose 1 APPLIC; Start 12/02/18 at 11:30 Lidocaine (Xylocaine 1% (Mpf)) 30 ml ONCE PRN INJ aspiration ; Start 12/04/18 at 17:30 IV Flush (NS 3 ml) 3 ml PER PROTOCOL IV ; Start 12/05/18 at 21:30 Oxycodone HCl (Roxicodone) 15 mg Q4H PRN PO .PAIN Last administered on 12/15/18 12:28; Admin Dose 15 MG; Start 12/05/18 at 21:30 Oxycodone HCl (Roxicodone) 10 mg Q4H PRN PO .PAIN Last administered on 12/18/18 03:37; Admin Dose 10 MG; Start 12/05/18 at 21:30 Oxycodone HCl (Roxicodone) 5 mg Q4H PRN PO .PAIN Last administered on 12/20/18 00:10; Admin Dose 5 MG; Start 12/05/18 at 21:30 Hydromorphone HCl (Dilaudid) 1 mg Q3H PRN IV .BREAKTHROUGH PAIN Last administered on 12/06/18 06:58; Admin Dose 1 MG; Start 12/05/18 at 21:30 Ondansetron HCl (Zofran Inj) 4 mg Q4H PRN IV NAUSEA/VOMITING; Start 12/06/18 at 21:30 Gabapentin (Neurontin) 300 mg QHS PO Last administered on 12/19/18 21:37; Admin Dose 300 MG; Start 12/06/18 at 21:00 Pantoprazole (Protonix Tab) 40 mg DAILY@06 PO Last administered on 12/20/18 05:32; Admin Dose 40 MG; Start 12/07/18 at 06:00 Simethicone (Mylicon) 80 mg TID PRN PO .GAS; Start 12/05/18 at 21:30 Senna/Docusate Sodium (Senokot-S) 2 tab BID PRN PO .CONSTIPATION Last administered on 12/06/18 08:54; Admin Dose 2 TAB; Start 12/05/18 at 21:30 Magnesium Hydroxide (Milk Of Mag) 30 ml HS PRN PO .CONSTIPATION; Start 12/05/18 at 21:30 Bisacodyl (Dulcolax Supp) 10 mg DAILY PRN [place] .CONSTIPATION; Start 12/05/18 at 21:30 Sodium Biphosphate/ Sodium Phosphate (Fleet Enema) 133 ml DAILY PRN [place] .CONSTIPATION; Start 12/05/18 at 21:30 Diphenhydramine HCl (Benadryl) 25 mg Q4H PRN IV .ITCHING; Start 12/05/18 at 21:30 Naloxone HCl (Narcan) 0.2 mg Q2M PRN IV .RESP RATE; Start 12/05/18 at 21:30 Bethanechol Chloride (Urecholine) 25 mg URINARY CATH D/C PRN PO UNABLE TO VOID; Start 12/05/18 at 21:30 Aspirin (Halfprin) 81 mg BID PO Last administered on 12/20/18 08:43; Admin Dose 81 MG; Start 12/06/18 at 09:00 Vancomycin HCl (Vanco Iv Per Pharmacy) VANCOMYCIN PER PHARMACY PER PROTOCOL XX ; Start 12/11/18 at 11:30 Nystatin (Nystatin Powder) 1 applic BID TOP Last administered on 12/20/18 08:53; Admin Dose 1 APPLIC; Start 12/12/18 at 21:00 Cefepime HCl 50 ml @ 100 mls/hr Q12 IVPB Last administered on 12/20/18 09:00; Admin Dose 100 MLS/HR; Start 12/13/18 at 21:00 Vancomycin HCl 1.25 gm/Sodium Chloride 250 ml @ 83.333 mls/ hr Q12H IVPB Last administered on 12/20/18 05:32; Admin Dose 83.333 MLS/HR; Start 12/14/18 at 17:00 Albuterol (Proventil 0.083% (Neb)) 2.5 mg Q2H RESP THERAPY PRN HHN SHORTNESS OF BREATH; Start 12/15/18 at 12:00 Lidocaine (Lidoderm) 1 patch DAILY TD Last administered on 12/20/18 08:43; Admin Dose 1 PATCH; Start 12/15/18 at 12:00 Acetaminophen (Tylenol Tab) 1,000 mg Q8H PRN PO pain Last administered on 12/09 04:15; Admin Dose 1,000 MG; Start 12/16/18 at 19:00 Alteplase, Recombinant (Cathflo (Activase)) 2 mg MAY REPEAT X1 PRN CATHETER IF CATHETER REMAINS OCCULUDED Last administered on 12/17/18 13:20; Admin Dose 2 MG; Start 12/17/18 at 08:30 Sodium Hypochlorite (Dakin'S (Dilute )) 1 applic BID TOP Last administered on 12/20/18 08:53; Admin Dose 1 APPLIC; Start 12/18/18 at 09:00 OZZIE SOLOMON NP Dec 20, 2018 11:44
--- NOTE | 2018-12-20 12:19 | PN ---
Date/Time of Note Date/Time of Note DATE: 12/20/18 TIME: Objective Vitals Vital Signs Date Temp Pulse Resp B/P (MAP) Pulse Ox O2 O2 Flow FiO2 Time Delivery Rate 12/20/18 97.8 63 18 119/58 96 Room Air 08:10 (78) Intake and Output 12/19/18 12/19/18 12/20/18 1515:00 23:00 07:00 IntakeIntake Total 920 ml 1180 ml 360 ml BalanceBalance 920 ml 1180 ml 360 ml Results Result Diagram: 12/20/18 0427 12/20/18 0426 Medications Medications Current Medications Albuterol (Ventolin Hfa) 2 puff Q4H PRN INH WHEEZING AND SOB; Start 12/01/18 at 21:00; Status Hold Ascorbic Acid (Vitamin C) 500 mg BID PO Last administered on 12/20/18 08:43; Admin Dose 500 MG; Start 12/01/18 at 21:00 Bupropion HCl (Wellbutrin Xl) 300 mg DAILY PO Last administered on 12/20/18 08:44; Admin Dose 300 MG; Start 12/02/18 at 09:00 Cholecalciferol (Vitamin D) 1,000 unit DAILY PO Last administered on 12/20/18 08:43; Admin Dose 1,000 UNIT; Start 12/02/18 at 09:00 Diclofenac Sodium (Voltaren 1% Gel) 2 gm TID PRN TP PAIN; Start 12/01/18 at 21:00 Levothyroxine Sodium (Synthroid) 100 mcg BEFORE BREAKFAST PO Last administered on 12/20/18 05:32; Admin Dose 100 MCG; Start 12/02/18 at 07:00 Lisinopril (Zestril) 5 mg DAILY PO Last administered on 12/20/18 08:43; Admin Dose 5 MG; Start 12/02/18 at 09:00 Magnesium Hydroxide (Milk Of Mag) 30 ml DAILY PRN PO CONSTIPATION; Start 12/01/18 at 21:00 Multivitamins Therapeutic (Theragran) 1 tab DAILY PO Last administered on 12/20/18 08:43; Admin Dose 1 TAB; Start 12/02/18 at 09:00 Polyethylene Glycol (Miralax) 17 gm DAILY PO Last administered on 12/08/18 10:15; Admin Dose 17 GM; Start 12/02/18 at 09:00 Senna (Senokot) 1 tab BID PO Last administered on 12/17/18 20:40; Admin Dose 1 TAB; Start 12/01/18 at 21:00 Vitamin B Complex/ Vitamin C (Berocca) 1 cap DAILY PO Last administered on 12/20/18 08:43; Admin Dose 1 CAP; Start 12/02/18 at 09:00 Fish Oil (Fish Oil) 1,000 mg DAILY PO Last administered on 12/20/18 08:43; Admin Dose 1,000 MG; Start 12/02/18 at 09:00 Docusate Sodium (Colace) 100 mg Q12H PRN PO .CONSTIPATION; Start 12/01/18 at 22:00 Bisacodyl (Dulcolax) 5 mg DAILY PRN PO .CONSTIPATION; Start 12/01/18 at 22:00 Miscellaneous Information (Pending Santyl Order For Wound Care) This patient ruano... PRN PRN XX WOUND CARE; Start 12/02/18 at 00:00 Collagenase (Santyl) 1 applic BID TOP Last administered on 12/20/18 08:48; Admin Dose 1 APPLIC; Start 12/02/18 at 11:30 Lidocaine (Xylocaine 1% (Mpf)) 30 ml ONCE PRN INJ aspiration ; Start 12/04/18 at 17:30 IV Flush (NS 3 ml) 3 ml PER PROTOCOL IV ; Start 12/05/18 at 21:30 Oxycodone HCl (Roxicodone) 15 mg Q4H PRN PO .PAIN Last administered on 12/15/18 12:28; Admin Dose 15 MG; Start 12/05/18 at 21:30 Oxycodone HCl (Roxicodone) 10 mg Q4H PRN PO .PAIN Last administered on 12/18/18 03:37; Admin Dose 10 MG; Start 12/05/18 at 21:30 Oxycodone HCl (Roxicodone) 5 mg Q4H PRN PO .PAIN Last administered on 12/20/18 00:10; Admin Dose 5 MG; Start 12/05/18 at 21:30 Hydromorphone HCl (Dilaudid) 1 mg Q3H PRN IV .BREAKTHROUGH PAIN Last administered on 3/29/19at 06:58; Admin Dose 1 MG; Start 12/05/18 at 21:30 Ondansetron HCl (Zofran Inj) 4 mg Q4H PRN IV NAUSEA/VOMITING; Start 12/06/18 at 21:30 Gabapentin (Neurontin) 300 mg QHS PO Last administered on 12/19/18at 21:37; Admin Dose 300 MG; Start 12/06/18 at 21:00 Pantoprazole (Protonix Tab) 40 mg DAILY@06 PO Last administered on 12/20/18at 05:32; Admin Dose 40 MG; Start 12/07/18 at 06:00 Simethicone (Mylicon) 80 mg TID PRN PO .GAS; Start 12/05/18 at 21:30 Senna/Docusate Sodium (Senokot-S) 2 tab BID PRN PO .CONSTIPATION Last administered on 12/06/18 08:54; Admin Dose 2 TAB; Start 12/05/18 at 21:30 Magnesium Hydroxide (Milk Of Mag) 30 ml HS PRN PO .CONSTIPATION; Start 12/05/18 at 21:30 Bisacodyl (Dulcolax Supp) 10 mg DAILY PRN [place] .CONSTIPATION; Start 12/05/18 at 21:30 Sodium Biphosphate/ Sodium Phosphate (Fleet Enema) 133 ml DAILY PRN [place] .CON STIPATION; Start 12/05/18 at 21:30 Diphenhydramine HCl (Benadryl) 25 mg Q4H PRN IV .ITCHING; Start 12/05/18 at 21:30 Naloxone HCl (Narcan) 0.2 mg Q2M PRN IV .RESP RATE; Start 12/05/18 at 21:30 Bethanechol Chloride (Urecholine) 25 mg URINARY CATH D/C PRN PO UNABLE TO VOID; Start 12/05/18 at 21:30 Aspirin (Halfprin) 81 mg BID PO Last administered on 12/20/18 08:43; Admin Dose 81 MG; Start 12/06/18 at 09:00 Vancomycin HCl (Vanco Iv Per Pharmacy) VANCOMYCIN PER PHARMACY PER PROTOCOL XX ; Start 12/11/18 at 11:30 Nystatin (Nystatin Powder) 1 applic BID TOP Last administered on 12/20/18 08:53; Admin Dose 1 APPLIC; Start 12/12/18 at 21:00 Cefepime HCl 50 ml @ 100 mls/hr Q12 IVPB Last administered on 12/20/18at 09:00; Admin Dose 100 MLS/HR; Start 12/13/18 at 21:00 Vancomycin HCl 1.25 gm/Sodium Chloride 250 ml @ 83.333 mls/ hr Q12H IVPB Last administered on 12/20/18at 05:32; Admin Dose 83.333 MLS/HR; Start 12/14/18 at 17:00 Albuterol (Proventil 0.083% (Neb)) 2.5 mg Q2H RESP THERAPY PRN HHN SHORTNESS OF BREATH; Start 12/15/18 at 12:00 Lidocaine (Lidoderm) 1 patch DAILY TD Last administered on 12/20/18 08:43; Admin Dose 1 PATCH; Start 12/15/18 at 12:00 Acetaminophen (Tylenol Tab) 1,000 mg Q8H PRN PO pain Last administered on 12/20/18 04:15; Admin Dose 1,000 MG; Start 12/16/18 at 19:00 Alteplase, Recombinant (Cathflo (Activase)) 2 mg MAY REPEAT X1 PRN CATHETER IF CATHETER REMAINS OCCULUDED Last administered on 12/17/18 13:20; Admin Dose 2 MG; Start 12/17/18 at 08:30 Sodium Hypochlorite (Dakin'S (Dilute 40)) 1 applic BID TOP Last administered on 12/20/18 08:53; Admin Dose 1 APPLIC; Start 12/18/18 at 09:00 VTE Prophylaxis Risk score (from Ns)>0 risk: 7 SCD applied (from Ns): Yes Lines/Catheters IV Catheter Type: Schaeffer in Place: No Assessment/Plan Hospital Course Subjective Patient doing well, still frustrated over her overall knee pain/progress Objective Physical exam General: Patient is laying in bed and answers questions appropriately Mentation: Patient is alert and oriented 4, Head: Normocephalic atraumatic Eyes: EOMI, pupils reactive to light Neck: Supple, nontender, midline Respiratory: Clear to auscultation bilaterally Cardiovascular: regular rate, no obvious murmurs Gastrointestinal: non-tender to palpation, bowel sounds heard. Neurological: Moves all extremities spontaneously Skin: Right knee brace, bandaged, CDI at surgical site, however mildly warm, no significant erythema Assessment/Plan 1. Septic R knee joint s/p irrigation and debridement of right knee arthroplasty 12/05/18 - Ortho on board and recommendations appreciated. Continue IV antibiotics until 01/18 then will need to continue PO antibiotics for 3-6 months - pain control 2. 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 Chronic spinal disease - mild discomfort given aerobed was aggravating her back pain. 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 Lumbar spine and thoracic spine CT show signs of stenosis though no acute fractures. 4. osteoarthritis - pain control Left ankle pain -X-ray pending 5. urinary tract infection: - Cultures growing ecoli and lactobacillus - asymptomatic 6. Strep Bacteremia - continue current antibiotics - repeat cultures negative 7. Mechanical fall - s/p stable removal from scalp 8. Disposition - CM on board for SNF placement, however very difficult. HARJEET PATINO Dec 20, 2018 12:19
--- NOTE | 2018-12-20 14:28 | CONS ---
Assessment/Plan Assessment/Plan Hospital Course (Demo Recall) Preoperative cardiac risk stratification Septic arthritis status post surgery 12/05/2018 Preserved ejection fraction Hypertension -Denies symptoms of chest pain, shortness of breath or palpitations. -Elevated BP likely secondary to pain. Overall well controlled on lisinopril Consultation Date/Type/Reason Admit Date/Time Dec 01, 2018 at 19:24 Initial Consult Date 12/04/18 Type of Consult Cardiology Date/Time of Note DATE: 12/20/18 TIME: 14:25 24 HR Interval Summary Free Text/Dictation no cp, palp, sob. Has ankle pain Exam/Review of Systems Vital Signs Vitals Vital Signs Date Temp Pulse Resp B/P (MAP) Pulse Ox O2 O2 Flow FiO2 Time Delivery Rate 12/20/18 97.8 63 18 119/58 96 Room Air 08:10 (78) Intake and Output 12/19/18 12/19/18 12/20/18 1515:00 23:00 07:00 IntakeIntake Total 920 ml 1180 ml 360 ml BalanceBalance 920 ml 1180 ml 360 ml Exam Constitutional: alert, oriented Head: normocephalic Respiratory: clear to auscultation, normal air movement Cardiovascular: regular rate and rhythm (s1s2) Gastrointestinal: soft, non-tender, bowel sounds Extremities: other (no sig edema, mild swelling left ankle) Labs Result Diagram: 12/20/187 12/20/18 0426 Results 24hrs Laboratory Tests Test 12/20/18 04:26 12/20/18 04:27 Sodium Level 143 Potassium Level 3.7 Chloride Level 105 Carbon Dioxide Level 27 Anion Gap 11 Blood Urea Nitrogen 11 Creatinine 0.47 Est Glomerular Filtrat Rate mL/min Glucose Level 98 Calcium Level 8.9 Phosphorus Level 3.9 Magnesium Level 1.9 White Blood Count 6.9 Red Blood Count 3.67 L Hemoglobin 9.8 L Hematocrit 32.0 L Mean Corpuscular Volume 87.2 Mean Corpuscular Hemoglobin 26.7 L Mean Corpuscular Hemoglobin Concent 30.6 L Red Cell Distribution Width 17.8 H Platelet Count 352 Mean Platelet Volume 9.5 Immature Granulocytes % 0.600 H Neutrophils % 58.2 Lymphocytes % 24.3 Monocytes % 13.9 H Eosinophils % 2.0 Basophils % 1.0 Nucleated Red Blood Cells % 0.0 Immature Granulocytes # 0.040 H Neutrophils # 4.0 Lymphocytes # 1.7 Monocytes # 1.0 H Eosinophils # 0.1 Basophils # 0.1 Nucleated Red Blood Cells # 0.0 Medications Medications Current Medications Albuterol (Ventolin Hfa) 2 puff Q4H PRN INH WHEEZING AND SOB; Start 12/01/18 at 21:00; Status Hold Ascorbic Acid (Vitamin C) 500 mg BID PO Last administered on 12/20/18 08:43; Admin Dose 500 MG; Start 12/01/18 at 21:00 Bupropion HCl (Wellbutrin Xl) 300 mg DAILY PO Last administered on 12/20/18 08:44; Admin Dose 300 MG; Start 12/02/18 at 09:00 Cholecalciferol (Vitamin D) 1,000 unit DAILY PO Last administered on 12/20/18 08:43; Admin Dose 1,000 UNIT; Start 12/02/18 at 09:00 Diclofenac Sodium (Voltaren 1% Gel) 2 gm TID PRN TP PAIN; Start 12/01/18 at 21:00 Levothyroxine Sodium (Synthroid) 100 mcg BEFORE BREAKFAST PO Last administered on 12/20/18 05:32; Admin Dose 100 MCG; Start 12/02/18 at 07:00 Lisinopril (Zestril) 5 mg DAILY PO Last administered on 12/20/18 08:43; Admin Dose 5 MG; Start 12/02/18 at 09:00 Magnesium Hydroxide (Milk Of Mag) 30 ml DAILY PRN PO CONSTIPATION; Start 12/01/18 at 21:00 Multivitamins Therapeutic (Theragran) 1 tab DAILY PO Last administered on 12/20/18 08:43; Admin Dose 1 TAB; Start 12/02/18 at 09:00 Polyethylene Glycol (Miralax) 17 gm DAILY PO Last administered on 12/08/18 10:15; Admin Dose 17 GM; Start 12/02/18 at 09:00 Senna (Senokot) 1 tab BID PO Last administered on 12/17/18 20:40; Admin Dose 1 TAB; Start 12/01/18 at 21:00 Vitamin B Complex/ Vitamin C (Berocca) 1 cap DAILY PO Last administered on 12/20/18 08:43; Admin Dose 1 CAP; Start 12/02/18 at 09:00 Fish Oil (Fish Oil) 1,000 mg DAILY PO Last administered on 12/20/18 08:43; Admin Dose 1,000 MG; Start 12/02/18 at 09:00 Docusate Sodium (Colace) 100 mg Q12H PRN PO .CONSTIPATION; Start 12/01/18 at 22:00 Bisacodyl (Dulcolax) 5 mg DAILY PRN PO .CONSTIPATION; Start 12/01/18 at 22:00 Miscellaneous Information (Pending Santyl Order For Wound Care) This patient ruano... PRN PRN XX WOUND CARE; Start 12/02/18 at 00:00 Collagenase (Santyl) 1 applic BID TOP Last administered on 12/20/18 08:48; Admin Dose 1 APPLIC; Start 12/02/18 at 11:30 Lidocaine (Xylocaine 1% (Mpf)) 30 ml ONCE PRN INJ aspiration ; Start 12/04/18 at 17:30 IV Flush (NS 3 ml) 3 ml PER PROTOCOL IV ; Start 12/05/18 at 21:30 Oxycodone HCl (Roxicodone) 15 mg Q4H PRN PO .PAIN Last administered on 12/15/18 12:28; Admin Dose 15 MG; Start 12/05/18 at 21:30 Oxycodone HCl (Roxicodone) 10 mg Q4H PRN PO .PAIN Last administered on 12/18/18 03:37; Admin Dose 10 MG; Start 12/05/18 at 21:30 Oxycodone HCl (Roxicodone) 5 mg Q4H PRN PO .PAIN Last administered on 12/20/18 00:10; Admin Dose 5 MG; Start 12/05/18 at 21:30 Hydromorphone HCl (Dilaudid) 1 mg Q3H PRN IV .BREAKTHROUGH PAIN Last administered on 12/06/18 06:58; Admin Dose 1 MG; Start 12/05/18 at 21:30 Ondansetron HCl (Zofran Inj) 4 mg Q4H PRN IV NAUSEA/VOMITING; Start 12/06/18 at 21:30 Gabapentin (Neurontin) 300 mg QHS PO Last administered on 12/19/18 21:37; Admin Dose 300 MG; Start 12/06/18 at 21:00 Pantoprazole (Protonix Tab) 40 mg DAILY@06 PO Last administered on 12/20/18 05 :32; Admin Dose 40 MG; Start 12/07/18 at 06:00 Simethicone (Mylicon) 80 mg TID PRN PO .GAS; Start 12/05/18 at 21:30 Senna/Docusate Sodium (Senokot-S) 2 tab BID PRN PO .CONSTIPATION Last administered on 12/06/18 08:54; Admin Dose 2 TAB; Start 12/05/18 at 21:30 Magnesium Hydroxide (Milk Of Mag) 30 ml HS PRN PO .CONSTIPATION; Start 12/05/18 at 21:30 Bisacodyl (Dulcolax Supp) 10 mg DAILY PRN [place] .CONSTIPATION; Start 12/05/18 at 21:30 Sodium Biphosphate/ Sodium Phosphate (Fleet Enema) 133 ml DAILY PRN [place] .CONSTIPATION; Start 12/05/18 at 21:30 Diphenhydramine HCl (Benadryl) 25 mg Q4H PRN IV .ITCHING; Start 12/05/18 at 21:30 Naloxone HCl (Narcan) 0.2 mg Q2M PRN IV .RESP RATE; Start 12/05/18 at 21:30 Bethanechol Chloride (Urecholine) 25 mg URINARY CATH D/C PRN PO UNABLE TO VOID; Start 12/05/18 at 21:30 Aspirin (Halfprin) 81 mg BID PO Last administered on 12/20/18 08:43; Admin Dose 81 MG; Start 12/06/18 at 09:00 Vancomycin HCl (Vanco Iv Per Pharmacy) VANCOMYCIN PER PHARMACY PER PROTOCOL XX ; Start 12/11/18 at 11:30 Nystatin (Nystatin Powder) 1 applic BID TOP Last administered on 12/20/18 08:53; Admin Dose 1 APPLIC; Start 12/12/18 at 21:00 Cefepime HCl 50 ml @ 100 mls/hr Q12 IVPB Last administered on 12/20/18 09:00; Admin Dose 100 MLS/HR; Start 12/13/18 at 21:00 Vancomycin HCl 1.25 gm/Sodium Chloride 250 ml @ 83.333 mls/ hr Q12H IVPB Last administered on 12/20/18 05:32; Admin Dose 83.333 MLS/HR; Start 12/14/18 at 17:00 Albuterol (Proventil 0.083% (Neb)) 2.5 mg Q2H RESP THERAPY PRN HHN SHORTNESS OF BREATH; Start 12/15/18 at 12:00 Lidocaine (Lidoderm) 1 patch DAILY TD Last administered on 12/20/18 08:43; Admin Dose 1 PATCH; Start 12/15/18 at 12:00 Acetaminophen (Tylenol Tab) 1,000 mg Q8H PRN PO pain Last administered on 12/20/18 04:15; Admin Dose 1,000 MG; Start 12/16/18 at 19:00 Alteplase, Recombinant (Cathflo (Activase)) 2 mg MAY REPEAT X1 PRN CATHETER IF CATHETER REMAINS OCCULUDED Last administered on 12/17/18 13:20; Admin Dose 2 MG; Start 12/17/18 at 08:30 Sodium Hypochlorite (Dakin'S (Dilute )) 1 applic BID TOP Last administered on 12/20/18 08:53; Admin Dose 1 APPLIC; Start 12/18/18 at 09:00 Martin Kelley DO Dec 20, 2018 14:28
[2018-12-20 14:48] VITALS: BP 126/60; PULSE 79; RESP 18
[2018-12-20 19:25] VITALS: BP 143/60; PULSE 77; RESP 18
[2018-12-20] MEDS: GABAPENTIN 300 MG CAP PO SCH (20:40)
[2018-12-21 01:35] VITALS: BP 138/65; PULSE 89; RESP 18
[2018-12-21] MEDS: VANCOMYCIN HCL 1.25 GM in SOD CHLORIDE 0.9% 250 ML IVPB SCH ×2 (05:26→17:09)
[2018-12-21] MEDS: LEVOTHYROXINE 100 MCG TAB PO SCH (05:26)
[2018-12-21] MEDS: PANTOPRAZOLE (EC) 40 MG TAB PO SCH (05:27)
[2018-12-21 07:33] VITALS: BP 125/55; PULSE 69; RESP 16
[2018-12-21] MEDS: BUPROPION (XL) 150 MG TAB PO SCH (08:32)
[2018-12-21] MEDS: CEFEPIME 1GM/50 ML (PMX) 50 ML IVPB SCH ×2 (08:32→21:15)
[2018-12-21] MEDS: ASCORBIC ACID 500 MG TAB PO SCH ×2 (08:33→21:15)
[2018-12-21] MEDS: FISH OIL 1,000 MG CAP PO SCH (08:33)
[2018-12-21] MEDS: MULTIVITAMINS THERAPEUTIC TAB PO SCH (08:33)
[2018-12-21] MEDS: SENNA TAB PO SCH ×2 (08:33→21:00)
[2018-12-21] MEDS: VITAMIN B COMPLEX/VIT C CAP PO SCH (08:33)
[2018-12-21] MEDS: CHOLECALCIFEROL 1,000 UNIT TAB PO SCH (08:33)
[2018-12-21] MEDS: ASPIRIN (EC) 81 MG TAB PO SCH ×2 (08:33→21:15)
[2018-12-21] MEDS: LISINOPRIL 5 MG TAB PO SCH (08:34)
[2018-12-21] MEDS: COLLAGENASE 5 GM (UD JAR) TOP SCH ×2 (08:35→21:15)
[2018-12-21] MEDS: SODIUM HYPOCHLORITE (1/40) 1 LITER BTL TOP SCH ×2 (08:35→21:21)
[2018-12-21] MEDS: NYSTATIN 30 GM POWDER BTL TOP SCH ×2 (08:35→21:21)
[2018-12-21] MEDS: LIDOCAINE 5% PATCH TD SCH (08:35)
[2018-12-21] MEDS: POLYETHYLENE GLYCOL 17 GM PACKET PO SCH (08:36)
--- NOTE | 2018-12-21 09:09 | CONS ---
Assessment/Plan Assessment/Plan Assessment/Plan (Daily) Septic arthritis status post surgery 12/05/2018 Preserved ejection fraction Hypertension -Denies symptoms of chest pain, shortness of breath or palpitations. -Elevated BP likely secondary to pain. Overall well controlled on lisinopril Consultation Date/Type/Reason Admit Date/Time Dec 01, 2018 at 19:24 Initial Consult Date 12/04/18 Type of Consult Cardiology Date/Time of Note DATE: 12/21/18 TIME: 09:08 24 HR Interval Summary Free Text/Dictation The patient with no cahnge Exam/Review of Systems Vital Signs Vitals Vital Signs Date Temp Pulse Resp B/P (MAP) Pulse Ox O2 O2 Flow FiO2 Time Delivery Rate 12/21/18 98.9 69 16 125/55 95 Room Air 07:33 (78) Intake and Output 12/20/18 12/20/18 12/21/18 1414:59 22:59 06:59 IntakeIntake Total 920 ml 780 ml 240 ml OutputOutput Total 700 ml BalanceBalance 920 ml 780 ml -460 ml Labs Result Diagram: 12/20/18 0427 12/20/18 0426 Medications Medications Current Medications Albuterol (Ventolin Hfa) 2 puff Q4H PRN INH WHEEZING AND SOB; Start 12/01/18 at 21:00; Status Hold Ascorbic Acid (Vitamin C) 500 mg BID PO Last administered on 12/21/18at 08:33; Admin Dose 500 MG; Start 12/01/18 at 21:00 Bupropion HCl (Wellbutrin Xl) 300 mg DAILY PO Last administered on 12/21/18at 08:32; Admin Dose 300 MG; Start 12/02/18 at 09:00 Cholecalciferol (Vitamin D) 1,000 unit DAILY PO Last administered on 12/21/18at 08:33; Admin Dose 1,000 UNIT; Start 12/02/18 at 09:00 Diclofenac Sodium (Voltaren 1% Gel) 2 gm TID PRN TP PAIN; Start 12/01/18 at 21:00 Levothyroxine Sodium (Synthroid) 100 mcg BEFORE BREAKFAST PO Last administered on 12/21/18at 05:26; Admin Dose 100 MCG; Start 12/02/18 at 07:00 Lisinopril (Zestril) 5 mg DAILY PO Last administered on 12/21/18 08:34; Admin Dose 5 MG; Start 12/02/18 at 09:00 Magnesium Hydroxide (Milk Of Mag) 30 ml DAILY PRN PO CONSTIPATION; Start 12/01/18 at 21:00 Multivitamins Therapeutic (Theragran) 1 tab DAILY PO Last administered on 12/21/18 08:33; Admin Dose 1 TAB; Start 12/02/18 at 09:00 Polyethylene Glycol (Miralax) 17 gm DAILY PO Last administered on 12/21/18 08:36; Admin Dose 17 GM; Start 12/02/18 at 09:00 Senna (Senokot) 1 tab BID PO Last administered on 12/21/18 08:33; Admin Dose 1 TAB; Start 12/01/18 at 21:00 Vitamin B Complex/ Vitamin C (Berocca) 1 cap DAILY PO Last administered on 12/21/18 08:33; Admin Dose 1 CAP; Start 12/02/18 at 09:00 Fish Oil (Fish Oil) 1,000 mg DAILY PO Last administered on 12/21/18 08:33; Admin Dose 1,000 MG; Start 12/02/18 at 09:00 Docusate Sodium (Colace) 100 mg Q12H PRN PO .CONSTIPATION; Start 12/01/18 at 22:00 Bisacodyl (Dulcolax) 5 mg DAILY PRN PO .CONSTIPATION; Start 12/01/18 at 22:00 Miscellaneous Information (Pending Santyl Order For Wound Care) This patient ruano... PRN PRN XX WOUND CARE; Start 12/02/18 at 00:00 Collagenase (Santyl) 1 applic BID TOP Last administered on 12/21/18 08:35; Admin Dose 1 APPLIC; Start 12/02/18 at 11:30 Lidocaine (Xylocaine 1% (Mpf)) 30 ml ONCE PRN INJ aspiration ; Start 12/04/18 at 17:30 IV Flush (NS 3 ml) 3 ml PER PROTOCOL IV ; Start 12/05/18 at 21:30 Oxycodone HCl (Roxicodone) 15 mg Q4H PRN PO .PAIN Last administered on 12/20/18 22:38; Admin Dose 15 MG; Start 12/05/18 at 21:30 Oxycodone HCl (Roxicodone) 10 mg Q4H PRN PO .PAIN Last administered on 12/18/18 03:37; Admin Dose 10 MG; Start 12/05/18 at 21:30 Oxycodone HCl (Roxicodone) 5 mg Q4H PRN PO .PAIN Last administered on 12/20/18 00:10; Admin Dose 5 MG; Start 12/05/18 at 21:30 Hydromorphone HCl (Dilaudid) 1 mg Q3H PRN IV .BREAKTHROUGH PAIN Last adm inistered on 12/06/18 06:58; Admin Dose 1 MG; Start 12/05/18 at 21:30 Ondansetron HCl (Zofran Inj) 4 mg Q4H PRN IV NAUSEA/VOMITING; Start 12/06/18 at 21:30 Gabapentin (Neurontin) 300 mg QHS PO Last administered on 12/20/18 20:40; Admin Dose 300 MG; Start 12/06/18 at 21:00 Pantoprazole (Protonix Tab) 40 mg DAILY@06 PO Last administered on 12/21/18 05:27; Admin Dose 40 MG; Start 12/07/18 at 06:00 Simethicone (Mylicon) 80 mg TID PRN PO .GAS; Start 12/05/18 at 21:30 Senna/Docusate Sodium (Senokot-S) 2 tab BID PRN PO .CONSTIPATION Last administered on 12/06/18 08:54; Admin Dose 2 TAB; Start 12/05/18 at 21:30 Magnesium Hydroxide (Milk Of Mag) 30 ml HS PRN PO .CONSTIPATION; Start 12/05/18 at 21:30 Bisacodyl (Dulcolax Supp) 10 mg DAILY PRN [place] .CONSTIPATION; Start 12/05/18 at 21:30 Sodium Biphosphate/ Sodium Phosphate (Fleet Enema) 133 ml DAILY PRN [place] .CONSTIPATION; Start 12/05/18 at 21:30 Diphenhydramine HCl (Benadryl) 25 mg Q4H PRN IV .ITCHING; Start 12/05/18 at 21:30 Naloxone HCl (Narcan) 0.2 mg Q2M PRN IV .RESP RATE; Start 12/05/18 at 21:30 Bethanechol Chloride (Urecholine) 25 mg URINARY CATH D/C PRN PO UNABLE TO VOID; Start 12/05/18 at 21:30 Aspirin (Halfprin) 81 mg BID PO Last administered on 12/21/18 08:33; Admin Dose 81 MG; Start 12/06/18 at 09:00 Vancomycin HCl (Vanco Iv Per Pharmacy) VANCOMYCIN PER PHARMACY PER PROTOCOL XX ; Start 12/11/18 at 11:30 Nystatin (Nystatin Powder) 1 applic BID TOP Last administered on 12/21/18 08:35; Admin Dose 1 APPLIC; Start 12/12/18 at 21:00 Cefepime HCl 50 ml @ 100 mls/hr Q12 IVPB Last administered on 12/21/18 08:32; Admin Dose 100 MLS/HR; Start 12/13/18 at 21:00 Vancomycin HCl 1.25 gm/Sodium Chloride 250 ml @ 83.333 mls/ hr Q12H IVPB Last administered on 12/21/18 05:26; Admin Dose 83.333 MLS/HR; Start 12/14/18 at 17:0 0 Albuterol (Proventil 0.083% (Neb)) 2.5 mg Q2H RESP THERAPY PRN HHN SHORTNESS OF BREATH; Start 12/15/18 at 12:00 Lidocaine (Lidoderm) 1 patch DAILY TD Last administered on 12/21/18 08:35; Admin Dose 1 PATCH; Start 12/15/18 at 12:00 Acetaminophen (Tylenol Tab) 1,000 mg Q8H PRN PO pain Last administered on 12/20/18 04:15; Admin Dose 1,000 MG; Start 12/16/18 at 19:00 Alteplase, Recombinant (Cathflo (Activase)) 2 mg MAY REPEAT X1 PRN CATHETER IF CATHETER REMAINS OCCULUDED Last administered on 12/17/18 13:20; Admin Dose 2 MG; Start 12/17/18 at 08:30 Sodium Hypochlorite (Dakin'S (Dilute 40)) 1 applic BID TOP Last administered on 12/21/18 08:35; Admin Dose 1 APPLIC; Start 12/18/18 at 09:00 PATRICK LAWRENCE MD Dec 21, 2018 09:09
[2018-12-21 14:30] VITALS: BP 126/68; PULSE 74; RESP 15
--- NOTE | 2018-12-21 14:38 | PN ---
Date/Time of Note Date/Time of Note DATE: 12/21/18 TIME: 14:38 Objective Vitals Vital Signs Date Temp Pulse Resp B/P (MAP) Pulse Ox O2 O2 Flow FiO2 Time Delivery Rate 12/21/18 99.6 74 15 126/68 100 Room Air 14:30 (87) Intake and Output 12/20/18 12/20/18 12/21/18 1515:00 23:00 07:00 IntakeIntake Total 920 ml 780 ml 240 ml OutputOutput Total 700 ml BalanceBalance 920 ml 780 ml -460 ml Results Result Diagram: 12/20/18 0427 12/20/18 0426 Medications Medications Current Medications Albuterol (Ventolin Hfa) 2 puff Q4H PRN INH WHEEZING AND SOB; Start 12/01/18 at 21:00; Status Hold Ascorbic Acid (Vitamin C) 500 mg BID PO Last administered on 12/21/18 08:33; Admin Dose 500 MG; Start 12/01/18 at 21:00 Bupropion HCl (Wellbutrin Xl) 300 mg DAILY PO Last administered on 12/21/18 08:32; Admin Dose 300 MG; Start 12/02/18 at 09:00 Cholecalciferol (Vitamin D) 1,000 unit DAILY PO Last administered on 12/21/18 08:33; Admin Dose 1,000 UNIT; Start 12/02/18 at 09:00 Diclofenac Sodium (Voltaren 1% Gel) 2 gm TID PRN TP PAIN; Start 12/01/18 at 21:00 Levothyroxine Sodium (Synthroid) 100 mcg BEFORE BREAKFAST PO Last administered on 12/21/18 05:26; Admin Dose 100 MCG; Start 12/02/18 at 07:00 Lisinopril (Zestril) 5 mg DAILY PO Last administered on 12/21/18 08:34; Admin Dose 5 MG; Start 12/02/18 at 09:00 Magnesium Hydroxide (Milk Of Mag) 30 ml DAILY PRN PO CONSTIPATION; Start 12/01/18 at 21:00 Multivitamins Therapeutic (Theragran) 1 tab DAILY PO Last administered on 12/21/18 08:33; Admin Dose 1 TAB; Start 12/02/18 at 09:00 Polyethylene Glycol (Miralax) 17 gm DAILY PO Last administered on 12/21/18 08:36; Admin Dose 17 GM; Start 12/02/18 at 09:00 Senna (Senokot) 1 tab BID PO Last administered on 12/21/18 08:33; Admin Dose 1 TAB; Start 12/01/18 at 21:00 Vitamin B Complex/ Vitamin C (Berocca) 1 cap DAILY PO Last administered on 12/21/18 08:33; Admin Dose 1 CAP; Start 12/02/18 at 09:00 Fish Oil (Fish Oil) 1,000 mg DAILY PO Last administered on 12/21/18 08:33; Admin Dose 1,000 MG; Start 12/02/18 at 09:00 Docusate Sodium (Colace) 100 mg Q12H PRN PO .CONSTIPATION; Start 12/01/18 at 22:00 Bisacodyl (Dulcolax) 5 mg DAILY PRN PO .CONSTIPATION; Start 12/01/18 at 22:00 Miscellaneous Information (Pending Santyl Order For Wound Care) This patient ruano... PRN PRN XX WOUND CARE; Start 12/02/18 at 00:00 Collagenase (Santyl) 1 applic BID TOP Last administered on 12/21/18 08:35; Admin Dose 1 APPLIC; Start 12/02/18 at 11:30 Lidocaine (Xylocaine 1% (Mpf)) 30 ml ONCE PRN INJ aspiration ; Start 12/04/18 at 17:30 IV Flush (NS 3 ml) 3 ml PER PROTOCOL IV ; Start 12/05/18 at 21:30 Oxycodone HCl (Roxicodone) 15 mg Q4H PRN PO .PAIN Last administered on 12/20/18at 22:38; Admin Dose 15 MG; Start 12/05/18 at 21:30 Oxycodone HCl (Roxicodone) 10 mg Q4H PRN PO .PAIN Last administered on 9at 03:37; Admin Dose 10 MG; Start 12/05/18 at 21:30 Oxycodone HCl (Roxicodone) 5 mg Q4H PRN PO .PAIN Last administered on 12/20/18 00:10; Admin Dose 5 MG; Start 12/05/18 at 21:30 Hydromorphone HCl (Dilaudid) 1 mg Q3H PRN IV .BREAKTHROUGH PAIN Last administered on 12/06/18 06:58; Admin Dose 1 MG; Start 12/05/18 at 21:30 Ondansetron HCl (Zofran Inj) 4 mg Q4H PRN IV NAUSEA/VOMITING; Start 12/06/18 at 21:30 Gabapentin (Neurontin) 300 mg QHS PO Last administered on 12/20/18at 20:40; Admin Dose 300 MG; Start 12/06/18 at 21:00 Pantoprazole (Protonix Tab) 40 mg DAILY@06 PO Last administered on 12/21/18 05:27; Admin Dose 40 MG; Start 12/07/18 at 06:00 Simethicone (Mylicon) 80 mg TID PRN PO .GAS; Start 12/05/18 at 21:30 Senna/Docusate Sodium (Senokot-S) 2 tab BID PRN PO .CONSTIPATION Last administered on 12/06/18 08:54; Admin Dose 2 TAB; Start 12/05/18 at 21:30 Magnesium Hydroxide (Milk Of Mag) 30 ml HS PRN PO .CONSTIPATION; Start 12/05/18 at 21:30 Bisacodyl (Dulcolax Supp) 10 mg DAILY PRN [place] .CONSTIPATION; Start 12/05/18 at 21:30 Sodium Biphosphate/ Sodium Phosphate (Fleet Enema) 133 ml DAILY PRN [place] .CONSTIPATION; Start 12/05/18 at 21:30 Diphenhydramine HCl (Benadryl) 25 mg Q4H PRN IV .ITCHING; Start 12/05/18 at 21:30 Naloxone HCl (Narcan) 0.2 mg Q2M PRN IV .RESP RATE; Start 12/05/18 at 21:30 Bethanechol Chloride (Urecholine) 25 mg URINARY CATH D/C PRN PO UNABLE TO VOID; Start 12/05/18 at 21:30 Aspirin (Halfprin) 81 mg BID PO Last administered on 12/21/18 08:33; Admin Dose 81 MG; Start 12/06/18 at 09:00 Vancomycin HCl (Vanco Iv Per Pharmacy) VANCOMYCIN PER PHARMACY PER PROTOCOL XX ; Start 12/11/18 at 11:30 Nystatin (Nystatin Powder) 1 applic BID TOP Last administered on 12/21/18 08:35; Admin Dose 1 APPLIC; Start 12/12/18 at 21:00 Cefepime HCl 50 ml @ 100 mls/hr Q12 IVPB Last administered on 12/21/18 08:32; Admin Dose 100 MLS/HR; Start 12/13/18 at 21:00 Vancomycin HCl 1.25 gm/Sodium Chloride 250 ml @ 83.333 mls/ hr Q12H IVPB Last administered on 12/21/18 05:26; Admin Dose 83.333 MLS/HR; Start 12/14/18 at 17:00 Albuterol (Proventil 0.083% (Neb)) 2.5 mg Q2H RESP THERAPY PRN HHN SHORTNESS OF BREATH; Start 12/15/18 at 12:00 Lidocaine (Lidoderm) 1 patch DAILY TD Last administered on 12/21/18 08:35; Admin Dose 1 PATCH; Start 12/15/18 at 12:00 Acetaminophen (Tylenol Tab) 1,000 mg Q8H PRN PO pain Last administered on 12/20/18 04:15; Admin Dose 1,000 MG; Start 12/16/18 at 19:00 Alteplase, Recombinant (Cathflo (Activase)) 2 mg MAY REPEAT X1 PRN CATHETER IF CATHETER REMAINS OCCULUDED Last administered on 12/17/18 13:20; Admin Dose 2 MG; Start 12/17/18 at 08:30 Sodium Hypochlorite (Dakin'S (Dilute 40)) 1 applic BID TOP Last administered on 12/21/18 08:35; Admin Dose 1 APPLIC; Start 12/18/18 at 09:00 Miscellaneous Information (*Rx Drug Level Order Reminder*) VANCO TROUGH ON @ 400 0400 ONCE XX ; Start 12/22/18 at 04:00; Stop 12/22/18 at 04:01 VTE Prophylaxis Risk score (from Nsg)>0 risk: 7 SCD applied (from Nsg): Yes Lines/Catheters IV Catheter Type: Schaeffer in Place: No Assessment/Plan Hospital Course Subjective Patient doing well, still frustrated over her overall knee pain/progress Objective Physical exam General: Patient is laying in bed and answers questions appropriately Mentation: Patient is alert and oriented 4, Head: Normocephalic atraumatic Eyes: EOMI, pupils reactive to light Neck: Supple, nontender, midline Respiratory: Clear to auscultation bilaterally Cardiovascular: regular rate, no obvious murmurs Gastrointestinal: non-tender to palpation, bowel sounds heard. Neurological: Moves all extremities spontaneously Skin: Right knee brace, bandaged, CDI at surgical site, however mildly warm, no significant erythema Assessment/Plan 1. Septic R knee joint s/p irrigation and debridement of right knee arthroplasty 12/05/18 - Ortho on board and recommendations appreciated. Continue IV antibiotics until 01/18 then will need to continue PO antibiotics for 3-6 months - pain control 2. 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 Chronic spinal disease - mild discomfort given aerobed was aggravating her back pain. 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 Lumbar spine and thoracic spine CT show signs of stenosis though no acute fractures. 4. osteoarthritis - pain control Left ankle pain -X-ray pending 5. urinary tract infection: - Cultures growing ecoli and lactobacillus - asymptomatic 6. Strep Bacteremia - continue current antibiotics - repeat cultures negative 7. Mechanical fall - s/p stable removal from scalp 8. Disposition - CM on board for SNF placement, however very difficult. HARJEET PATINO Dec 21, 2018 14:38
--- NOTE | 2018-12-21 15:41 | CONS ---
Consultation Date/Type/Reason Admit Date/Time Dec 01, 2018 at 19:24 Initial Consult Date SUBJECTIVE: Pt is awake, alert. NO acute events over night. VS: stable T: 99.6 LABS: reviewed. Antimicrobials: Vancomycin and cefepime Microbiology: Blood culture on admission grew strep, urine culture grew E. coli, MRSA swab negative, repeat blood cultures negative. Sacral wound cx + MRSA/Proteus/Strep 2D echo revealed no vegetations Physical examination: GEN: This is well-developed well-nourished elderly woman, who is alert in no distress. HENT: Head atraumatic normocephalic, neck is supple. PULM: Chest rise symmetrical breath sounds clear. Heart: S1-S2. Abdomen: soft, bowel tones present. Extremities with right knee erythema and swelling Assessment: 1. Status post sepsis, present on admission 2. Streptococcal bacteremia 2 to #3 3. 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 Urinary tract infection 5. History of left total knee replacement 6. History of multilevel discectomy and posterior fusion from L1-L3, please see CT in the chart Plan: Patient remains stable. Pending final sacral wound cx. Will continue on current abx. Anticipate to complete 6 weeks. If sacral wound heals, will change to Rocephin last dose January 18. Date/Time of Note DATE: 12/21/18 TIME: 15:38 Exam/Review of Systems Exam Vitals Vital Signs Date Temp Pulse Resp B/P (MAP) Pulse Ox O2 O2 Flow FiO2 Time Delivery Rate 12/21/18 99.6 74 15 126/68 100 Room Air 14:30 (87) Intake and Output 12/20/18 12/20/18 12/21/18 1515:00 23:00 07:00 IntakeIntake Total 920 ml 780 ml 240 ml OutputOutput Total 700 ml BalanceBalance 920 ml 780 ml -460 ml Results Result Diagram: 12/20/18 0427 12/20/18 0426 Medications Medication Current Medications Albuterol (Ventolin Hfa) 2 puff Q4H PRN INH WHEEZING AND SOB; Start 12/01/18 at 21:00; Status Hold Ascorbic Acid (Vitamin C) 500 mg BID PO Last administered on 12/21/18at 08:33; Admin Dose 500 MG; Start 12/01/18 at 21:00 Bupropion HCl (Wellbutrin Xl) 300 mg DAILY PO Last administered on 12/21/18 08:32; Admin Dose 300 MG; Start 12/02/18 at 09:00 Cholecalciferol (Vitamin D) 1,000 unit DAILY PO Last administered on 12/21/18 08:33; Admin Dose 1,000 UNIT; Start 12/02/18 at 09:00 Diclofenac Sodium (Voltaren 1% Gel) 2 gm TID PRN TP PAIN; Start 12/01/18 at 21:00 Levothyroxine Sodium (Synthroid) 100 mcg BEFORE BREAKFAST PO Last administered on 12/21/18 05:26; Admin Dose 100 MCG; Start 12/02/18 at 07:00 Lisinopril (Zestril) 5 mg DAILY PO Last administered on 12/21/18 08:34; Admin Dose 5 MG; Start 12/02/18 at 09:00 Magnesium Hydroxide (Milk Of Mag) 30 ml DAILY PRN PO CONSTIPATION; Start 12/01/18 at 21:00 Multivitamins Therapeutic (Theragran) 1 tab DAILY PO Last administered on 12/21/18 08:33; Admin Dose 1 TAB; Start 12/02/18 at 09:00 Polyethylene Glycol (Miralax) 17 gm DAILY PO Last administered on 12/21/18 08:36; Admin Dose 17 GM; Start 12/02/18 at 09:00 Senna (Senokot) 1 tab BID PO Last administered on 12/21/18 08:33; Admin Dose 1 TAB; Start 12/01/18 at 21:00 Vitamin B Complex/ Vitamin C (Berocca) 1 cap DAILY PO Last administered on 12/21/18 08:33; Admin Dose 1 CAP; Start 12/02/18 at 09:00 Fish Oil (Fish Oil) 1,000 mg DAILY PO Last administered on 12/21/18 08:33; Admin Dose 1,000 MG; Start 12/02/18 at 09:00 Docusate Sodium (Colace) 100 mg Q12H PRN PO .CONSTIPATION; Start 12/01/18 at 22:00 Bisacodyl (Dulcolax) 5 mg DAILY PRN PO .CONSTIPATION; Start 12/01/18 at 22:00 Miscellaneous Information (Pending Santyl Order For Wound Care) This patient ruano... PRN PRN XX WOUND CARE; Start 12/02/18 at 00:00 Collagenase (Santyl) 1 applic BID TOP Last administered on 12/21/18 08:35; Admin Dose 1 APPLIC; Start 12/02/18 at 11:30 Lidocaine (Xylocaine 1% (Mpf)) 30 ml ONCE PRN INJ aspiration ; Start 12/04/18 at 17:30 IV Flush (NS 3 ml) 3 ml PER PROTOCOL IV ; Start 12/05/18 at 21:30 Oxycodone HCl (Roxicodone) 15 mg Q4H PRN PO .PAIN Last administered on 12/20/18 22:38; Admin Dose 15 MG; Start 12/05/18 at 21:30 Oxycodone HCl (Roxicodone) 10 mg Q4H PRN PO .PAIN Last administered on 12/18/18 03:37; Admin Dose 10 MG; Start 12/05/18 at 21:30 Oxycodone HCl (Roxicodone) 5 mg Q4H PRN PO .PAIN Last administered on 12/20/18 00:10; Admin Dose 5 MG; Start 12/05/18 at 21:30 Hydromorphone HCl (Dilaudid) 1 mg Q3H PRN IV .BREAKTHROUGH PAIN Last administered on 12/06/18 06:58; Admin Dose 1 MG; Start 12/05/18 at 21:30 Ondansetron HCl (Zofran Inj) 4 mg Q4H PRN IV NAUSEA/VOMITING; Start 12/06/18 at 21:30 Gabapentin (Neurontin) 300 mg QHS PO Last administered on 12/20/18 20:40; Admin Dose 300 MG; Start 12/06/18 at 21:00 Pantoprazole (Protonix Tab) 40 mg DAILY@06 PO Last administered on 12/21/18 05:27; Admin Dose 40 MG; Start 12/07/18 at 06:00 Simethicone (Mylicon) 80 mg TID PRN PO .GAS; Start 12/05/18 at 21:30 Senna/Docusate Sodium (Senokot-S) 2 tab BID PRN PO .CONSTIPATION Last administered on 12/06/18 08:54; Admin Dose 2 TAB; Start 12/05/18 at 21:30 Magnesium Hydroxide (Milk Of Mag) 30 ml HS PRN PO .CONSTIPATION; Start 12/05/18 at 21:30 Bisacodyl (Dulcolax Supp) 10 mg DAILY PRN [place] .CONSTIPATION; Start 12/05/18 at 21:30 Sodium Biphosphate/ Sodium Phosphate (Fleet Enema) 133 ml DAILY PRN [place] .CONSTIPATION; Start 12/05/18 at 21:30 Diphenhydramine HCl (Benadryl) 25 mg Q4H PRN IV .ITCHING; Start 12/05/18 at 21:30 Naloxone HCl (Narcan) 0.2 mg Q2M PRN IV .RESP RATE; Start 12/05/18 at 21:30 Bethanechol Chloride (Urecholine) 25 mg URINARY CATH D/C PRN PO UNABLE TO VOID; Start 12/05/18 at 21:30 Aspirin (Halfprin) 81 mg BID PO Last administered on 12/21/18 08:33; Admin Dose 81 MG; Start 12/06/18 at 09:00 Vancomycin HCl (Vanco Iv Per Pharmacy) VANCOMYCIN PER PHARMACY PER PROTOCOL XX ; Start 12/11/18 at 11:30 Nystatin (Nystatin Powder) 1 applic BID TOP Last administered on 12/21/18 08:35; Admin Dose 1 APPLIC; Start 12/12/18 at 21:00 Cefepime HCl 50 ml @ 100 mls/hr Q12 IVPB Last administered on 12/21/18 08:32; Admin Dose 100 MLS/HR; Start 12/13/18 at 21:00 Vancomycin HCl 1.25 gm/Sodium Chloride 250 ml @ 83.333 mls/ hr Q12H IVPB Last administered on 12/21/18 05:26; Admin Dose 83.333 MLS/HR; Start 12/14/18 at 17:00 Albuterol (Proventil 0.083% (Neb)) 2.5 mg Q2H RESP THERAPY PRN HHN SHORTNESS OF BREATH; Start 12/15/18 at 12:00 Lidocaine (Lidoderm) 1 patch DAILY TD Last administered on 12/21/18 08:35; Admin Dose 1 PATCH; Start 12/15/18 at 12:00 Acetaminophen (Tylenol Tab) 1,000 mg Q8H PRN PO pain Last administered on 4/12/19at 04:15; Admin Dose 1,000 MG; Start 12/16/18 at 19:00 Alteplase, Recombinant (Cathflo (Activase)) 2 mg MAY REPEAT X1 PRN CATHETER IF CATHETER REMAINS OCCULUDED Last administered on 12/17/18at 13:20; Admin Dose 2 MG; Start 12/17/18 at 08:30 Sodium Hypochlorite (Dakin'S (Dilute )) 1 applic BID TOP Last administered on 12/21/18at 08:35; Admin Dose 1 APPLIC; Start 12/18/18 at 09:00 Miscellaneous Information (*Rx Drug Level Order Reminder*) VANCO TROUGH ON 4 @ 400 0400 ONCE XX ; Start 12/22/18 at 04:00; Stop 12/22/18 at 04:01 ARNULFO RENDON Dec 21, 2018 15:41
--- NOTE | 2018-12-21 17:32 | PN ---
Date/Time of Note Date/Time of Note DATE: 12/21/18 TIME: 17:29 Assessment/Plan Lines/Catheters IV Catheter Type (from Nrs): Schaeffer in Place (from Nrs): No Assessment/Plan Chief Complaint/Hosp Course 73-year-old female with acute hematogenous infection of the right TKA postop day #15 status post I&D and poly-exchange. Preliminary intraoperative cultures are growing strep group B which are the same as her blood cultures. The patient will need a PICC line as she will need IV antibiotics for 6 weeks. After that she will need p.o. antibiotics for 3-6 months. Wound cultures from the sacral wound grew MRSA. Her left ankle pain has resolved. X-rays of the left ankle demonstrated a questionable fracture of the distal lateral malleolus. Patient had history of a distal fibular fracture a little over 6 months ago. The fracture is clinically and radiologically healed Plan: Pain control Physical therapy, work on quad strengthening Continue IV antibiotics per infectious disease -currently on ceftriaxone 1 g every 24 hours and vancomycin continue to follow-up intraoperative cultures Dietregular Discharge planning: If accepted it would be optimal for the patient to be discharged to the acute rehab unit. She could also be discharged home if appropriate care can be arranged including IV antibiotics. Okay to discharge from orthopedic standpoint. Will need to follow-up with me in 6 weeks from surgery. Subjective 24 Hr Interval Summary Patient doing well No acute events overnight Pain is well controlled. Left ankle pain has resolved Exam/Review of Systems Vital Signs Vitals Vital Signs Date Temp Pulse Resp B/P (MAP) Pulse Ox O2 O2 Flow FiO2 Time Delivery Rate 12/21/18 99.6 74 15 126/68 100 Room Air 14:30 (87) Intake and Output 12/20/18 12/20/18 12/21/18 1515:00 23:00 07:00 IntakeIntake Total 920 ml 780 ml 240 ml OutputOutput Total 700 ml BalanceBalance 920 ml 780 ml -460 ml Exam Free Text/Dictation Right lower extremity: Dressing: clean, dry, and intact, no erythema Sensation intact to light touch in a sural, saphenous, deep peroneal, superficial peroneal, medial and lateral plantar nerve distribution. Motor is intact, patient able to dorsiflex and plantarflex ankle and extend and flex great toe. Dorsalis Pedis pulse +2, Brisk capillary refill. Compartments are soft. Calves non-tender to palpation bilaterally. Left lower extremity: The lateral malleolus is nontender to palpation. There is no significant swelling. Skin intact. Sensation intact to light touch in a sural, saphenous, deep peroneal, superficial peroneal, medial and lateral plantar nerve distribution. Motor is intact, patient able to dorsiflex and plantarflex ankle and extend and flex great toe. Dorsalis Pedis pulse +2, Brisk capillary refill. Compartments are soft. Calves non-tender to palpation bilaterally. Results Result Diagram: 12/20/18 0427 12/20/18 0426 EMIGDIO LUBIN MD Dec 21, 2018 17:32
[2018-12-21 19:25] VITALS: BP 135/65; PULSE 77; RESP 18
[2018-12-21] MEDS: GABAPENTIN 300 MG CAP PO SCH (21:15)
[2018-12-22] MEDS: oxyCODONE 5 MG TAB PO PRN (00:40)
[2018-12-22 02:53] VITALS: BP 120/64; PULSE 80; RESP 18
[2018-12-22] MEDS: VANCOMYCIN HCL 1.25 GM in SOD CHLORIDE 0.9% 250 ML IVPB SCH ×2 (06:17→17:27)
[2018-12-22] MEDS: PANTOPRAZOLE (EC) 40 MG TAB PO SCH (06:18)
[2018-12-22] MEDS: LEVOTHYROXINE 100 MCG TAB PO SCH (06:18)
[2018-12-22 07:52] VITALS: BP 130/68; PULSE 69; RESP 16
[2018-12-22] MEDS: SENNA TAB PO SCH ×2 (09:00→21:00)
[2018-12-22] MEDS: POLYETHYLENE GLYCOL 17 GM PACKET PO SCH (09:00)
[2018-12-22] MEDS: CHOLECALCIFEROL 1,000 UNIT TAB PO SCH (09:35)
[2018-12-22] MEDS: CEFEPIME 1GM/50 ML (PMX) 50 ML IVPB SCH ×2 (09:35→22:05)
[2018-12-22] MEDS: BUPROPION (XL) 150 MG TAB PO SCH (09:35)
[2018-12-22] MEDS: FISH OIL 1,000 MG CAP PO SCH (09:35)
[2018-12-22] MEDS: VITAMIN B COMPLEX/VIT C CAP PO SCH (09:35)
[2018-12-22] MEDS: MULTIVITAMINS THERAPEUTIC TAB PO SCH (09:35)
[2018-12-22] MEDS: ASPIRIN (EC) 81 MG TAB PO SCH ×2 (09:35→21:18)
[2018-12-22] MEDS: LIDOCAINE 5% PATCH TD SCH (09:36)
[2018-12-22] MEDS: ASCORBIC ACID 500 MG TAB PO SCH ×2 (09:36→21:18)
[2018-12-22] MEDS: LISINOPRIL 5 MG TAB PO SCH (09:37)
[2018-12-22] MEDS: NYSTATIN 30 GM POWDER BTL TOP SCH ×2 (09:41→21:19)
[2018-12-22] MEDS: COLLAGENASE 5 GM (UD JAR) TOP SCH ×2 (09:41→21:18)
[2018-12-22] MEDS: SODIUM HYPOCHLORITE (1/40) 1 LITER BTL TOP SCH ×2 (09:42→21:19)
[2018-12-22] MEDS ORDERED: METHOCARBAMOL 750 MG TAB PO ONE (11:30)
--- NOTE | 2018-12-22 12:45 | CONS ---
Consultation Date/Type/Reason Admit Date/Time Dec 01, 2018 at 19:24 Initial Consult Date SUBJECTIVE: Pt is awake, alert. NO acute events over night. VS: stable T: 99.6 LABS: reviewed. Antimicrobials: Vancomycin and cefepime Microbiology: Blood culture on admission grew strep, urine culture grew E. coli, MRSA swab negative, repeat blood cultures negative. Sacral wound cx + MRSA/Proteus/Strep Sacral wound culture: GRAM STAIN Final POLYMORPH. LEUKOCYTE NONE SEEN . NO ORGANISM SEEN WOUND CULTURE Preliminary Organism 1 PROTEUS MIRABILIS QUANTITY SCANT GROWTH Organism 2 VANCO RESISTANT ENTEROCOCCUS QUANTITY 1+ . MULTI DRUG RESISTANT ORGANISM PHONED TO MS DEWEY1 AND A COPY TO AT 1024 12/22/2018 BY JV. NOTIFIED CECIL WASSERMAN AT 1048 12/22/2018 BY SWAPNA. Klaus GRAVES M.I.C. RX M.I.C. RX --------- --- --------- --- AMPICILLIN >=32 R 8 S CEFEPIME <=1 S CEFOTAXIME R CIPROFLOXACIN >=4 R GENTAMICIN >=16 R GENTAMICIN 120 R LEVOFLOXACIN >=8 R LINEZOLID 2 S PENICILLIN-G 32 R QUINUPRISTIN/DALFOPRISTIN 4 R STREPTOMYCIN 300 R VANCOMYCIN >=32 S TOBRAMYCIN 8 I TRIMETHOPRIM/SULFAMETHOXAZOLE >=320 R WOUND CULTURE Preliminary (continued) Klaus GRAVES M.I.[facility]. RX M.I.C. RX --------- --- --------- --- PIPERACILLIN/TAZOBACTAM <=4 S 2D echo revealed no vegetations Physical examination: GEN: This is well-developed well-nourished elderly woman, who is alert in no distress. HENT: Head atraumatic normocephalic, neck is supple. PULM: Chest rise symmetrical breath sounds clear. Heart: S1-S2. Abdomen: soft, bowel tones present. Extremities with right knee erythema and swelling Assessment: 1. Status post sepsis, present on admission 2. Streptococcal bacteremia 2 to #3 3. 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 Urinary tract infection 5. History of left total knee replacement 6. History of multilevel discectomy and posterior fusion from L1-L3, please see CT in the chart Plan: Patient remains stable. Will continue on current abx. Anticipate to complete 6 weeks. If sacral wound heals, will change to Rocephin last dose January 18. Date/Time of Note DATE: 12/22/18 TIME: 12:38 Exam/Review of Systems Exam Vitals Vital Signs Date Temp Pulse Resp B/P (MAP) Pulse Ox O2 O2 Flow FiO2 Time Delivery Rate 12/22/18 98.7 69 16 130/68 96 Room Air 07:52 (88) Intake and Output 12/21/18 12/21/18 12/22/18 1515:00 23:00 07:00 IntakeIntake Total 1100 ml 600 ml OutputOutput Total 1 ml BalanceBalance 1099 ml 600 ml Results Result Diagram: 12/20/18 0427 12/22/18 0419 Results 24hrs Laboratory Tests Test 12/22/18 04:19 Blood Urea Nitrogen 10 Creatinine 0.42 L Vancomycin Level Trough 13.6 Medications Medication Current Medications Albuterol (Ventolin Hfa) 2 puff Q4H PRN INH WHEEZING AND SOB; Start 12/01/18 at 21:00; Status Hold Ascorbic Acid (Vitamin C) 500 mg BID PO Last administered on 12/22/18at 09:36; Admin Dose 500 MG; Start 12/01/18 at 21:00 Bupropion HCl (Wellbutrin Xl) 300 mg DAILY PO Last administered on 12/22/18at 09:35; Admin Dose 300 MG; Start 12/02/18 at 09:00 Cholecalciferol (Vitamin D) 1,000 unit DAILY PO Last administered on 12/22/18at 09:35; Admin Dose 1,000 UNIT; Start 12/02/18 at 09:00 Diclofenac Sodium (Voltaren 1% Gel) 2 gm TID PRN TP PAIN; Start 12/01/18 at 21:00 Levothyroxine Sodium (Synthroid) 100 mcg BEFORE BREAKFAST PO Last administered on 12/22/18 06:18; Admin Dose 100 MCG; Start 12/02/18 at 07:00 Lisinopril (Zestril) 5 mg DAILY PO Last administered on 12/22/18 09:37; Admin Dose 5 MG; Start 12/02/18 at 09:00 Magnesium Hydroxide (Milk Of Mag) 30 ml DAILY PRN PO CONSTIPATION; Start at 21:00 Multivitamins Therapeutic (Theragran) 1 tab DAILY PO Last administered on 12/22/18 09:35; Admin Dose 1 TAB; Start 12/02/18 at 09:00 Polyethylene Glycol (Miralax) 17 gm DAILY PO Last administered on 12/21/18 08:36; Admin Dose 17 GM; Start 12/02/18 at 09:00 Senna (Senokot) 1 tab BID PO Last administered on 12/21/18 08:33; Admin Dose 1 TAB; Start 12/01/18 at 21:00 Vitamin B Complex/ Vitamin C (Berocca) 1 cap DAILY PO Last administered on 12/22/18 09:35; Admin Dose 1 CAP; Start 12/02/18 at 09:00 Fish Oil (Fish Oil) 1,000 mg DAILY PO Last administered on 12/22/18 09:35; Admin Dose 1,000 MG; Start 12/02/18 at 09:00 Docusate Sodium (Colace) 100 mg Q12H PRN PO .CONSTIPATION; Start 12/01/18 at 22:00 Bisacodyl (Dulcolax) 5 mg DAILY PRN PO .CONSTIPATION; Start 12/01/18 at 22:00 Miscellaneous Information (Pending Santyl Order For Wound Care) This patient ruano... PRN PRN XX WOUND CARE; Start 12/02/18 at 00:00 Collagenase (Santyl) 1 applic BID TOP Last administered on 12/22/18 09:41; Admin Dose 1 APPLIC; Start 12/02/18 at 11:30 Lidocaine (Xylocaine 1% (Mpf)) 30 ml ONCE PRN INJ aspiration ; Start 12/04/18 at 17:30 IV Flush (NS 3 ml) 3 ml PER PROTOCOL IV ; Start 12/05/18 at 21:30 Oxycodone HCl (Roxicodone) 15 mg Q4H PRN PO .PAIN Last administered on 12/22/18 00:40; Admin Dose 15 MG; Start 12/05/18 at 21:30 Oxycodone HCl (Roxicodone) 10 mg Q4H PRN PO .PAIN Last administered on 12/18/18 03:37; Admin Dose 10 MG; Start 12/05/18 at 21:30 Oxycodone HCl (Roxicodone) 5 mg Q4H PRN PO .PAIN Last administered on 12/20/18 00:10; Admin Dose 5 MG; Start 12/05/18 at 21:30 Hydromorphone HCl (Dilaudid) 1 mg Q3H PRN IV .BREAKTHROUGH PAIN Last administered on 12/06/18 06:58; Admin Dose 1 MG; Start 12/05/18 at 21:30 Ondansetron HCl (Zofran Inj) 4 mg Q4H PRN IV NAUSEA/VOMITING; Start 12/06/18 at 21:30 Pantoprazole (Protonix Tab) 40 mg DAILY@06 PO Last administered on 12/22/18 06:18; Admin Dose 40 MG; Start 12/07/18 at 06:00 Simethicone (Mylicon) 80 mg TID PRN PO .GAS; Start 12/05/18 at 21:30 Senna/Docusate Sodium (Senokot-S) 2 tab BID PRN PO .CONSTIPATION Last ad ministered on 12/06/18 08:54; Admin Dose 2 TAB; Start 12/05/18 at 21:30 Magnesium Hydroxide (Milk Of Mag) 30 ml HS PRN PO .CONSTIPATION; Start 12/05/18 at 21:30 Bisacodyl (Dulcolax Supp) 10 mg DAILY PRN [place] .CONSTIPATION; Start 12/05/18 at 21:30 Sodium Biphosphate/ Sodium Phosphate (Fleet Enema) 133 ml DAILY PRN [place] .CONSTIPATION; Start 12/05/18 at 21:30 Diphenhydramine HCl (Benadryl) 25 mg Q4H PRN IV .ITCHING; Start 12/05/18 at 21:30 Naloxone HCl (Narcan) 0.2 mg Q2M PRN IV .RESP RATE; Start 12/05/18 at 21:30 Bethanechol Chloride (Urecholine) 25 mg URINARY CATH D/C PRN PO UNABLE TO VOID; Start 12/05/18 at 21:30 Aspirin (Halfprin) 81 mg BID PO Last administered on 12/22/18 09:35; Admin D ose 81 MG; Start 12/06/18 at 09:00 Vancomycin HCl (Vanco Iv Per Pharmacy) VANCOMYCIN PER PHARMACY PER PROTOCOL XX ; Start 12/11/18 at 11:30 Nystatin (Nystatin Powder) 1 applic BID TOP Last administered on 12/22/18 09:41; Admin Dose 1 APPLIC; Start 12/12/18 at 21:00 Cefepime HCl 50 ml @ 100 mls/hr Q12 IVPB Last administered on 12/22/18 09:35; Admin Dose 100 MLS/HR; Start 12/13/18 at 21:00 Vancomycin HCl 1.25 gm/Sodium Chloride 250 ml @ 83.333 mls/ hr Q12H IVPB Last administered on 12/22/18 06:17; Admin Dose 83.333 MLS/HR; Start 12/14/18 at 17:00 Albuterol (Proventil 0.083% (Neb)) 2.5 mg Q2H RESP THERAPY PRN HHN SHORTNESS OF BREATH; Start 12/15/18 at 12:00 Lidocaine (Lidoderm) 1 patch DAILY TD Last administered on 12/22/18 09:36; Admin Dose 1 PATCH; Start 12/15/18 at 12:00 Acetaminophen (Tylenol Tab) 1,000 mg Q8H PRN PO pain Last administered on 12/20/18 04:15; Admin Dose 1,000 MG; Start 12/16/18 at 19:00 Alteplase, Recombinant (Cathflo (Activase)) 2 mg MAY REPEAT X1 PRN CATHETER IF CATHETER REMAINS OCCULUDED Last administered on 12/17/18 13:20; Admin Dose 2 MG; Start 12/17/18 at 08:30 Sodium Hypochlorite (Dakin'S (Dilute )) 1 applic BID TOP Last administered on 12/22/18 09:42; Admin Dose 1 APPLIC; Start 12/18/18 at 09:00 Gabapentin (Neurontin) 300 mg TID PO ; Start 12/22/18 at 13:00 ARNULFO RENDON Dec 22, 2018 12:45
--- NOTE | 2018-12-22 14:13 | PN ---
Date/Time of Note Date/Time of Note DATE: 12/22/18 TIME: 14:11 Objective Vitals Vital Signs Date Temp Pulse Resp B/P (MAP) Pulse Ox O2 O2 Flow FiO2 Time Delivery Rate 12/22/18 98.7 69 16 130/68 96 Room Air 07:52 (88) Intake and Output 12/21/18 12/21/18 12/22/18 1414:59 22:59 06:59 IntakeIntake Total 1100 ml 600 ml OutputOutput Total 1 ml BalanceBalance 1099 ml 600 ml Results Result Diagram: 12/20/18 0427 12/22/18 0419 Medications Medications Current Medications Albuterol (Ventolin Hfa) 2 puff Q4H PRN INH WHEEZING AND SOB; Start 12/01/18 at 21:00; Status Hold Ascorbic Acid (Vitamin C) 500 mg BID PO Last administered on 12/22/18 09:36; Admin Dose 500 MG; Start 12/01/18 at 21:00 Bupropion HCl (Wellbutrin Xl) 300 mg DAILY PO Last administered on 12/22/18 09:35; Admin Dose 300 MG; Start 12/02/18 at 09:00 Cholecalciferol (Vitamin D) 1,000 unit DAILY PO Last administered on 12/22/18 09:35; Admin Dose 1,000 UNIT; Start 12/02/18 at 09:00 Diclofenac Sodium (Voltaren 1% Gel) 2 gm TID PRN TP PAIN; Start 12/01/18 at 21:00 Levothyroxine Sodium (Synthroid) 100 mcg BEFORE BREAKFAST PO Last administered on 12/22/18 06:18; Admin Dose 100 MCG; Start 12/02/18 at 07:00 Lisinopril (Zestril) 5 mg DAILY PO Last administered on 12/22/18 09:37; Admin Dose 5 MG; Start 12/02/18 at 09:00 Magnesium Hydroxide (Milk Of Mag) 30 ml DAILY PRN PO CONSTIPATION; Start 12/01/18 at 21:00 Multivitamins Therapeutic (Theragran) 1 tab DAILY PO Last administered on 12/22/18 09:35; Admin Dose 1 TAB; Start 12/02/18 at 09:00 Polyethylene Glycol (Miralax) 17 gm DAILY PO Last administered on 12/21/18 08:36; Admin Dose 17 GM; Start 12/02/18 at 09:00 Senna (Senokot) 1 tab BID PO Last administered on 12/21/18 08:33; Admin Dose 1 TAB; Start 12/01/18 at 21:00 Vitamin B Complex/ Vitamin C (Berocca) 1 cap DAILY PO Last administered on 12/22/18 09:35; Admin Dose 1 CAP; Start 12/02/18 at 09:00 Fish Oil (Fish Oil) 1,000 mg DAILY PO Last administered on 12/22/18 09:35; Admin Dose 1,000 MG; Start 12/02/18 at 09:00 Docusate Sodium (Colace) 100 mg Q12H PRN PO .CONSTIPATION; Start 12/01/18 at 22:00 Bisacodyl (Dulcolax) 5 mg DAILY PRN PO .CONSTIPATION; Start 12/01/18 at 22:00 Miscellaneous Information (Pending Santyl Order For Wound Care) This patient ruano... PRN PRN XX WOUND CARE; Start 12/02/18 at 00:00 Collagenase (Santyl) 1 applic BID TOP Last administered on 12/22/18 09:41; Admin Dose 1 APPLIC; Start 12/02/18 at 11:30 Lidocaine (Xylocaine 1% (Mpf)) 30 ml ONCE PRN INJ aspiration ; Start 12/04/18 at 17:30 IV Flush (NS 3 ml) 3 ml PER PROTOCOL IV ; Start 12/05/18 at 21:30 Oxycodone HCl (Roxicodone) 15 mg Q4H PRN PO .PAIN Last administered on 12/22/18 00:40; Admin Dose 15 MG; Start 12/05/18 at 21:30 Oxycodone HCl (Roxicodone) 10 mg Q4H PRN PO .PAIN Last administered on 12/18/18 03:37; Admin Dose 10 MG; Start 12/05/18 at 21:30 Oxycodone HCl (Roxicodone) 5 mg Q4H PRN PO .PAIN Last administered on 12/20/18 00:10; Admin Dose 5 MG; Start 12/05/18 at 21:30 Hydromorphone HCl (Dilaudid) 1 mg Q3H PRN IV .BREAKTHROUGH PAIN Last administered on 3/29/19at 06:58; Admin Dose 1 MG; Start 12/05/18 at 21:30 Ondansetron HCl (Zofran Inj) 4 mg Q4H PRN IV NAUSEA/VOMITING; Start 12/06/18 at 21:30 Pantoprazole (Protonix Tab) 40 mg DAILY@06 PO Last administered on 12/22/18 06:18; Admin Dose 40 MG; Start 12/07/18 at 06:00 Simethicone (Mylicon) 80 mg TID PRN PO .GAS; Start 12/05/18 at 21:30 Senna/Docusate Sodium (Senokot-S) 2 tab BID PRN PO .CONSTIPATION Last administered on 12/06/18 08:54; Admin Dose 2 TAB; Start 12/05/18 at 21:30 Magnesium Hydroxide (Milk Of Mag) 30 ml HS PRN PO .CONSTIPATION; Start 12/05/18 at 21:30 Bisacodyl (Dulcolax Supp) 10 mg DAILY PRN [place] .CONSTIPATION; Start 12/05/18 at 21:30 Sodium Biphosphate/ Sodium Phosphate (Fleet Enema) 133 ml DAILY PRN [place] .CONSTIPATION; Start 12/05/18 at 21:30 Diphenhydramine HCl (Benadryl) 25 mg Q4H PRN IV .ITCHING; Start 12/05/18 at 21:30 Naloxone HCl (Narcan) 0.2 mg Q2M PRN IV .RESP RATE; Start 12/05/18 at 21:30 Bethanechol Chloride (Urecholine) 25 mg URINARY CATH D/C PRN PO UNABLE TO VOID; Start 12/05/18 at 21:30 Aspirin (Halfprin) 81 mg BID PO Last administered on 12/22/18 09:35; Admin Dose 81 MG; Start 12/06/18 at 09:00 Vancomycin HCl (Vanco Iv Per Pharmacy) VANCOMYCIN PER PHARMACY PER PROTOCOL XX ; Start 12/11/18 at 11:30 Nystatin (Nystatin Powder) 1 applic BID TOP Last administered on 12/22/18 09:41; Admin Dose 1 APPLIC; Start 12/12/18 at 21:00 Cefepime HCl 50 ml @ 100 mls/hr Q12 IVPB Last administered on 12/22/18 09:35; Admin Dose 100 MLS/HR; Start 12/13/18 at 21:00 Vancomycin HCl 1.25 gm/Sodium Chloride 250 ml @ 83.333 mls/ hr Q12H IVPB Last administered on 12/22/18at 06:17; Admin Dose 83.333 MLS/HR; Start 12/14/18 at 17:00 Albuterol (Proventil 0.083% (Neb)) 2.5 mg Q2H RESP THERAPY PRN HHN SHORTNESS OF BREATH; Start 12/15/18 at 12:00 Lidocaine (Lidoderm) 1 patch DAILY TD Last administered on 12/22/18at 09:36; Admin Dose 1 PATCH; Start 12/15/18 at 12:00 Acetaminophen (Tylenol Tab) 1,000 mg Q8H PRN PO pain Last administered on 12/20/18at 04:15; Admin Dose 1,000 MG; Start 12/16/18 at 19:00 Alteplase, Recombinant (Cathflo (Activase)) 2 mg MAY REPEAT X1 PRN CATHETER IF CATHETER REMAINS OCCULUDED Last administered on 12/17/18at 13:20; Admin Dose 2 MG; Start 12/17/18 at 08:30 Sodium Hypochlorite (Dakin'S (Dilute 40)) 1 applic BID TOP Last administered on 12/22/18 09:42; Admin Dose 1 APPLIC; Start 12/18/18 at 09:00 Gabapentin (Neurontin) 300 mg TID PO ; Start 12/22/18 at 13:00 VTE Prophylaxis Risk score (from Nsg)>0 risk: 6 SCD applied (from Ns): Yes Lines/Catheters IV Catheter Type: Schaeffer in Place: No Assessment/Plan Hospital Course Subjective Patient has these painful muscle spasms on her left lower extremity, also had her legs give out from underneath with no loss of consciousness when walking to the bathroom Objective Physical exam General: Patient is laying in bed and answers questions appropriately Mentation: Patient is alert and oriented 4, Head: Normocephalic atraumatic Eyes: EOMI, pupils reactive to light Neck: Supple, nontender, midline Respiratory: Clear to auscultation bilaterally Cardiovascular: regular rate, no obvious murmurs Gastrointestinal: non-tender to palpation, bowel sounds heard. Neurological: Moves all extremities spontaneously Skin: Right knee brace, bandaged, CDI at surgical site, however mildly warm, no significant erythema Assessment/Plan 1. Septic R knee joint s/p irrigation and debridement of right knee arthroplas ty 12/05/18 - Ortho on board and recommendations appreciated. Continue IV antibiotics until 01/18 then will need to continue PO antibiotics for 3-6 months - pain control Generalized leg weakness -Spoke with orthopedic surgery, stated it is likely related to quadricep deconditioning -Patient will need to continue PT Left leg muscle spasm -We will increase gabapentin as well as try a one-time dose of muscle relaxer, will try other muscle relaxer if this 1 does not work. 2. 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 Chronic spinal disease - mild discomfort given aerobed was aggravating her back pain. 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 Lumbar spine and thoracic spine CT show signs of stenosis though no acute fractures. 4. osteoarthritis - pain control Left ankle pain -Resolved, x-ray finding was likely from old fracture, orthopedic surgery also saw -Monitor 5. urinary tract infection: - Cultures growing ecoli and lactobacillus - asymptomatic 6. Strep Bacteremia - continue current antibiotics - repeat cultures negative 7. Mechanical fall - s/p stable removal from scalp 8. Disposition - CM on board for SNF placement, however very difficult. HARJEET PATINO Dec 22, 2018 14:13
[2018-12-22 14:21] VITALS: BP 120/59; PULSE 82; RESP 17
[2018-12-22] MEDS: GABAPENTIN 300 MG CAP PO SCH ×2 (14:49→21:18)
[2018-12-22] MEDS ORDERED: ALTEPLASE (CATHFLO) 2 MG INJ CATHETER ONE (16:00)
[2018-12-22 19:58] VITALS: BP 127/79; PULSE 78; RESP 18
[2018-12-23 03:00] VITALS: BP 125/75; PULSE 85; RESP 20
[2018-12-23] MEDS: VANCOMYCIN HCL 1.25 GM in SOD CHLORIDE 0.9% 250 ML IVPB SCH (05:00)
[2018-12-23] MEDS: LEVOTHYROXINE 100 MCG TAB PO SCH (06:07)
[2018-12-23] MEDS: PANTOPRAZOLE (EC) 40 MG TAB PO SCH (06:07)
[2018-12-23 08:02] VITALS: BP 128/68; PULSE 72; RESP 19
[2018-12-23] MEDS: CEFEPIME 1GM/50 ML (PMX) 50 ML IVPB SCH ×2 (09:21→21:36)
[2018-12-23] MEDS: ASCORBIC ACID 500 MG TAB PO SCH ×2 (09:22→21:36)
[2018-12-23] MEDS: SENNA TAB PO SCH ×2 (09:22→21:00)
[2018-12-23] MEDS: BUPROPION (XL) 150 MG TAB PO SCH (09:22)
[2018-12-23] MEDS: VITAMIN B COMPLEX/VIT C CAP PO SCH (09:22)
[2018-12-23] MEDS: FISH OIL 1,000 MG CAP PO SCH (09:23)
[2018-12-23] MEDS: CHOLECALCIFEROL 1,000 UNIT TAB PO SCH (09:23)
[2018-12-23] MEDS: LISINOPRIL 5 MG TAB PO SCH (09:23)
[2018-12-23] MEDS: POLYETHYLENE GLYCOL 17 GM PACKET PO SCH (09:23)
[2018-12-23] MEDS: MULTIVITAMINS THERAPEUTIC TAB PO SCH (09:23)
[2018-12-23] MEDS: GABAPENTIN 300 MG CAP PO SCH ×3 (09:23→21:36)
[2018-12-23] MEDS: ASPIRIN (EC) 81 MG TAB PO SCH ×2 (09:23→21:36)
[2018-12-23] MEDS: LIDOCAINE 5% PATCH TD SCH (09:24)
[2018-12-23] MEDS: SODIUM HYPOCHLORITE (1/40) 1 LITER BTL TOP SCH ×2 (09:24→21:37)
[2018-12-23] MEDS: COLLAGENASE 5 GM (UD JAR) TOP SCH ×2 (09:25→21:36)
[2018-12-23] MEDS: NYSTATIN 30 GM POWDER BTL TOP SCH ×2 (09:26→21:37)
[2018-12-23] MEDS ORDERED: METHOCARBAMOL 750 MG TAB PO PRN (09:30)
--- NOTE | 2018-12-23 10:51 | PN ---
Date/Time of Note Date/Time of Note DATE: 12/23/18 TIME: 10:50 Objective Vitals Vital Signs Date Temp Pulse Resp B/P (MAP) Pulse Ox O2 O2 Flow FiO2 Time Delivery Rate 12/23/18 98.2 72 19 128/68 98 Room Air 08:02 (88) Intake and Output 12/22/18 12/22/18 12/23/18 1414:59 22:59 06:59 IntakeIntake Total 650 ml 700 ml 900 ml BalanceBalance 650 ml 700 ml 900 ml Results Result Diagram: 12/23/18 0435 12/23/18 0435 Medications Medications Current Medications Albuterol (Ventolin Hfa) 2 puff Q4H PRN INH WHEEZING AND SOB; Start 12/01/18 at 21:00; Status Hold Ascorbic Acid (Vitamin C) 500 mg BID PO Last administered on 12/23/18 09:22; Admin Dose 500 MG; Start 12/01/18 at 21:00 Bupropion HCl (Wellbutrin Xl) 300 mg DAILY PO Last administered on 12/23/18 09:22; Admin Dose 300 MG; Start 12/02/18 at 09:00 Cholecalciferol (Vitamin D) 1,000 unit DAILY PO Last administered on 12/23/18 09:23; Admin Dose 1,000 UNIT; Start 12/02/18 at 09:00 Diclofenac Sodium (Voltaren 1% Gel) 2 gm TID PRN TP PAIN; Start 12/01/18 at 21:00 Levothyroxine Sodium (Synthroid) 100 mcg BEFORE BREAKFAST PO Last administered on 12/23/18at 06:07; Admin Dose 100 MCG; Start 12/02/18 at 07:00 Lisinopril (Zestril) 5 mg DAILY PO Last administered on 12/23/18 09:23; Admin Dose 5 MG; Start 12/02/18 at 09:00 Magnesium Hydroxide (Milk Of Mag) 30 ml DAILY PRN PO CONSTIPATION; Start 12/01/18 at 21:00 Multivitamins Therapeutic (Theragran) 1 tab DAILY PO Last administered on 12/23/18 09:23; Admin Dose 1 TAB; Start 12/02/18 at 09:00 Polyethylene Glycol (Miralax) 17 gm DAILY PO Last administered on 12/23/18 09:23; Admin Dose 17 GM; Start 12/02/18 at 09:00 Senna (Senokot) 1 tab BID PO Last administered on 12/23/18 09:22; Admin Dose 1 TAB; Start 12/01/18 at 21:00 Vitamin B Complex/ Vitamin C (Berocca) 1 cap DAILY PO Last administered on 12/23/18 09:22; Admin Dose 1 CAP; Start 12/02/18 at 09:00 Fish Oil (Fish Oil) 1,000 mg DAILY PO Last administered on 12/23/18 09:23; Admin Dose 1,000 MG; Start 12/02/18 at 09:00 Docusate Sodium (Colace) 100 mg Q12H PRN PO .CONSTIPATION; Start 12/01/18 at 22:00 Bisacodyl (Dulcolax) 5 mg DAILY PRN PO .CONSTIPATION; Start 12/01/18 at 22:00 Miscellaneous Information (Pending Santyl Order For Wound Care) This patient ruano... PRN PRN XX WOUND CARE; Start 12/02/18 at 00:00 Collagenase (Santyl) 1 applic BID TOP Last administered on 12/23/18 09:25; Admin Dose 1 APPLIC; Start 12/02/18 at 11:30 Lidocaine (Xylocaine 1% (Mpf)) 30 ml ONCE PRN INJ aspiration ; Start 12/04/18 at 17:30 IV Flush (NS 3 ml) 3 ml PER PROTOCOL IV ; Start 12/05/18 at 21:30 Oxycodone HCl (Roxicodone) 15 mg Q4H PRN PO .PAIN Last administered on 12/22/18 00:40; Admin Dose 15 MG; Start 12/05/18 at 21:30 Oxycodone HCl (Roxicodone) 10 mg Q4H PRN PO .PAIN Last administered on 12/18/18 03:37; Admin Dose 10 MG; Start 12/05/18 at 21:30 Oxycodone HCl (Roxicodone) 5 mg Q4H PRN PO .PAIN Last administered on 12/20/18 00:10; Admin Dose 5 MG; Start 12/05/18 at 21:30 Hydromorphone HCl (Dilaudid) 1 mg Q3H PRN IV .BREAKTHROUGH PAIN Last administered on 3/29/19at 06:58; Admin Dose 1 MG; Start 12/05/18 at 21:30 Ondansetron HCl (Zofran Inj) 4 mg Q4H PRN IV NAUSEA/VOMITING; Start 12/06/18 at 21:30 Pantoprazole (Protonix Tab) 40 mg DAILY@06 PO Last administered on 12/23/18at 06:07; Admin Dose 40 MG; Start 12/07/18 at 06:00 Simethicone (Mylicon) 80 mg TID PRN PO .GAS; Start 12/05/18 at 21:30 Senna/Docusate Sodium (Senokot-S) 2 tab BID PRN PO .CONSTIPATION Last administered on 12/06/18 08:54; Admin Dose 2 TAB; Start 12/05/18 at 21:30 Magnesium Hydroxide (Milk Of Mag) 30 ml HS PRN PO .CONSTIPATION; Start 12/05/18 at 21:30 Bisacodyl (Dulcolax Supp) 10 mg DAILY PRN [place] .CONSTIPATION; Start 12/05/18 at 2 1:30 Sodium Biphosphate/ Sodium Phosphate (Fleet Enema) 133 ml DAILY PRN [place] .CONSTIPATION; Start 12/05/18 at 21:30 Diphenhydramine HCl (Benadryl) 25 mg Q4H PRN IV .ITCHING; Start 12/05/18 at 21:30 Naloxone HCl (Narcan) 0.2 mg Q2M PRN IV .RESP RATE; Start 12/05/18 at 21:30 Bethanechol Chloride (Urecholine) 25 mg URINARY CATH D/C PRN PO UNABLE TO VOID; Start 12/05/18 at 21:30 Aspirin (Halfprin) 81 mg BID PO Last administered on 12/23/18at 09:23; Admin Dose 81 MG; Start 12/06/18 at 09:00 Vancomycin HCl (Vanco Iv Per Pharmacy) VANCOMYCIN PER PHARMACY PER PROTOCOL XX ; Start 12/11/18 at 11:30 Nystatin (Nystatin Powder) 1 applic BID TOP Last administered on 12/23/18at 09:26; Admin Dose 1 APPLIC; Start 12/12/18 at 21:00 Cefepime HCl 50 ml @ 100 mls/hr Q12 IVPB Last administered on 12/23/18at 09:21; Admin Dose 100 MLS/HR; Start 12/13/18 at 21:00 Vancomycin HCl 1.25 gm/Sodium Chloride 250 ml @ 83.333 mls/ hr Q12H IVPB Last administered on 12/23/18 05:00; Admin Dose 83.333 MLS/HR; Start 12/14/18 at 17:00 Albuterol (Proventil 0.083% (Neb)) 2.5 mg Q2H RESP THERAPY PRN HHN SHORTNESS OF BREATH; Start 12/15/18 at 12:00 Lidocaine (Lidoderm) 1 patch DAILY TD Last administered on 12/23/18 09:24; Admin Dose 1 PATCH; Start 12/15/18 at 12:00 Acetaminophen (Tylenol Tab) 1,000 mg Q8H PRN PO pain Last administered on 12/20/18 04:15; Admin Dose 1,000 MG; Start 12/16/18 at 19:00 Alteplase, Recombinant (Cathflo (Activase)) 2 mg MAY REPEAT X1 PRN CATHETER IF CATHETER REMAINS OCCULUDED Last administered on 12/17/18 13:20; Admin Dose 2 MG; Start 12/17/18 at 08:30 Sodium Hypochlorite (Dakin'S (Dilute 40)) 1 applic BID TOP Last administered on 12/23/18 09:24; Admin Dose 1 APPLIC; Start 12/18/18 at 09:00 Gabapentin (Neurontin) 300 mg TID PO Last administered on 12/23/18 09:23; Admin Dose 300 MG; Start 12/22/18 at 13:00 Methocarbamol (Robaxin) 750 mg Q8H PRN PO muscle spasm; Start 12/23/18 at 09:30 VTE Prophylaxis Risk score (from Nsg)>0 risk: 4 SCD applied (from Nsg): Yes Lines/Catheters IV Catheter Type: Schaeffer in Place: No Assessment/Plan Hospital Course Subjective Patient's muscle spasms were treated well with Robaxin yesterday, will add as needed Objective Physical exam General: Patient is laying in bed and answers questions appropriately Mentation: Patient is alert and oriented 4, Head: Normocephalic atraumatic Eyes: EOMI, pupils reactive to light Neck: Supple, nontender, midline Respiratory: Clear to auscultation bilaterally Cardiovascular: regular rate, no obvious murmurs Gastrointestinal: non-tender to palpation, bowel sounds heard. Neurological: Moves all extremities spontaneously Skin: Right knee brace, bandaged, CDI at surgical site, however mildly warm, no significant erythema Assessment/Plan 1. Septic R knee joint s/p irrigation and debridement of right knee arthroplasty 12/05/18 - Ortho on board and recommendations appreciated. Continue IV antibiotics until 01/18 then will need to continue PO antibiotics for 3-6 months - pain control Generalized leg weakness -Spoke with orthopedic surgery, stated it is likely related to quadricep deconditioning -Patient will need to continue PT Left leg muscle spasm -We will increase gabapentin -Patient did well on Robaxin yesterday, will continue as needed dosing of Robaxin. 2. 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 Chronic spinal disease - mild discomfort given aerobed was aggravating her back pain. 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 Lumbar spine and thoracic spine CT show signs of stenosis though no acute fractures. 4. osteoarthritis - pain control Left ankle pain -Resolved, x-ray finding was likely from old fracture, orthopedic surgery also saw -Monitor 5. urinary tract infection: - Cultures growing ecoli and lactobacillus - asymptomatic 6. Strep Bacteremia - continue current antibiotics - repeat cultures negative 7. Mechanical fall - s/p stable removal from scalp 8. Disposition - CM on board for SNF placement, however very difficult. HARJEET PATINO Dec 23, 2018 10:51
[2018-12-23] MEDS: oxyCODONE 5 MG TAB PO PRN (11:20)
--- NOTE | 2018-12-23 14:40 | CONS ---
Assessment/Plan Assessment/Plan Hospital Course (Demo Recall) Alert, feels good Antimicrobials: Vancomycin and cefepime Microbiology: Blood culture on admission grew strep, urine culture grew E. coli, MRSA swab negative, repeat blood cultures negative. Sacral wound cx + VRE/Proteus/Strep 2D echo revealed no vegetations Physical examination: This is well-developed well-nourished elderly woman who is alert in no distress. Head atraumatic normocephalic neck is supple. Chest rise symmetrical breath sounds clear. Heart: S1-S2. Abdomen soft, bowel tones present. Extremities with right knee erythema and swelling Assessment: 1. Status post sepsis, present on admission 2. Streptococcal bacteremia 2 to #3 3. 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 Urinary tract infection 5. History of left total knee replacement 6. History of multilevel discectomy and posterior fusion from L1-L3, please see CT in the chart Plan: Remains stable, change Vanco to Daptomycin Consultation Date/Type/Reason Admit Date/Time Dec 01, 2018 at 19:24 Initial Consult Date Type of Consult id Date/Time of Note DATE: 12/23/18 TIME: 14:39 Exam/Review of Systems Exam Vitals Vital Signs Date Temp Pulse Resp B/P (MAP) Pulse Ox O2 O2 Flow FiO2 Time Delivery Rate 12/23/18 98.2 72 19 128/68 98 Room Air 08:02 (88) Intake and Output 12/22/18 12/22/18 12/23/18 1515:00 23:00 07:00 IntakeIntake Total 650 ml 700 ml 900 ml BalanceBalance 650 ml 700 ml 900 ml Results Result Diagram: 12/23/18 0435 12/23/18 0435 Results 24hrs Laboratory Tests Test 12/23/18 04:35 White Blood Count 7.9 Red Blood Count 3.61 L Hemoglobin 9.6 L Hematocrit 31.1 L Mean Corpuscular Volume 86.1 Mean Corpuscular Hemoglobin 26.6 L Mean Corpuscular Hemoglobin Concent 30.9 L Red Cell Distribution Width 17.9 H Platelet Count 341 Mean Platelet Volume 9.5 Immature Granulocytes % 0.600 H Neutrophils % 70.9 Lymphocytes % 14.4 L Monocytes % 11.7 H Eosinophils % 1.6 Basophils % 0.8 Nucleated Red Blood Cells % 0.0 Immature Granulocytes # 0.050 H Neutrophils # 5.6 Lymphocytes # 1.1 Monocytes # 0.9 Eosinophils # 0.1 Basophils # 0.1 Nucleated Red Blood Cells # 0.0 Sodium Level 141 Potassium Level 3.8 Chloride Level 104 Carbon Dioxide Level 29 Anion Gap 8 Blood Urea Nitrogen 9 Creatinine 0.45 Est Glomerular Filtrat Rate mL/min Glucose Level 114 Calcium Level 8.8 Phosphorus Level 3.7 Magnesium Level 1.9 Medications Medication Current Medications Albuterol (Ventolin Hfa) 2 puff Q4H PRN INH WHEEZING AND SOB; Start 12/01/18 at 21:00; Status Hold Ascorbic Acid (Vitamin C) 500 mg BID PO Last administered on 12/23/18 09:22; Admin Dose 500 MG; Start 12/01/18 at 21:00 Bupropion HCl (Wellbutrin Xl) 300 mg DAILY PO Last administered on 12/23/18 09:22; Admin Dose 300 MG; Start 12/02/18 at 09:00 Cholecalciferol (Vitamin D) 1,000 unit DAILY PO Last administered on 12/23/18:23; Admin Dose 1,000 UNIT; Start 12/02/18 at 09:00 Diclofenac Sodium (Voltaren 1% Gel) 2 gm TID PRN TP PAIN; Start 12/01/18 at 21:00 Levothyroxine Sodium (Synthroid) 100 mcg BEFORE BREAKFAST PO Last administered on 12/23/18 06:07; Admin Dose 100 MCG; Start 12/02/18 at 07:00 Lisinopril (Zestril) 5 mg DAILY PO Last administered on 12/23/18 09:23; Admin Dose 5 MG; Start 12/02/18 at 09:00 Magnesium Hydroxide (Milk Of Mag) 30 ml DAILY PRN PO CONSTIPATION; Start 12/01/18 at 21:00 Multivitamins Therapeutic (Theragran) 1 tab DAILY PO Last administered on 12/23/18 09:23; Admin Dose 1 TAB; Start 12/02/18 at 09:00 Polyethylene Glycol (Miralax) 17 gm DAILY PO Last administered on 12/23/18 09:23; Admin Dose 17 GM; Start 12/02/18 at 09:00 Senna (Senokot) 1 tab BID PO Last administered on 12/23/18 09:22; Admin Dose 1 TAB; Start 12/01/18 at 21:00 Vitamin B Complex/ Vitamin C (Berocca) 1 cap DAILY PO Last administered on 12/23/18 09:22; Admin Dose 1 CAP; Start 12/02/18 at 09:00 Fish Oil (Fish Oil) 1,000 mg DAILY PO Last administered on 12/23/18 09:23; Admin Dose 1,000 MG; Start 12/02/18 at 09:00 Docusate Sodium (Colace) 100 mg Q12H PRN PO .CONSTIPATION; Start 12/01/18 at 22:00 Bisacodyl (Dulcolax) 5 mg DAILY PRN PO .CONSTIPATION; Start 12/01/18 at 22:00 Miscellaneous Information (Pending Santyl Order For Wound Care) This patient ruano... PRN PRN XX WOUND CARE; Start 12/02/18 at 00:00 Collagenase (Santyl) 1 applic BID TOP Last administered on 12/23/18 09:25; Admin Dose 1 APPLIC; Start 12/02/18 at 11:30 Lidocaine (Xylocaine 1% (Mpf)) 30 ml ONCE PRN INJ aspiration ; Start 12/04/18 at 17:30 IV Flush (NS 3 ml) 3 ml PER PROTOCOL IV ; Start 12/05/18 at 21:30 Oxycodone HCl (Roxicodone) 15 mg Q4H PRN PO .PAIN Last administered on 12/23/18 11:20; Admin Dose 15 MG; Start 12/05/18 at 21:30 Oxycodone HCl (Roxicodone) 10 mg Q4H PRN PO .PAIN Last administered on 12/18/18 03:37; Admin Dose 10 MG; Start 12/05/18 at 21:30 Oxycodone HCl (Roxicodone) 5 mg Q4H PRN PO .PAIN Last administered on 12/20/18 00:10; Admin Dose 5 MG; Start 12/05/18 at 21:30 Hydromorphone HCl (Dilaudid) 1 mg Q3H PRN IV .BREAKTHROUGH PAIN Last administered on 12/06/18 06:58; Admin Dose 1 MG; Start 12/05/18 at 21:30 Ondansetron HCl (Zofran Inj) 4 mg Q4H PRN IV NAUSEA/VOMITING; Start 12/06/18 at 21:30 Pantoprazole (Protonix Tab) 40 mg DAILY@06 PO Last administered on 12/23/18at 06:07; Admin Dose 40 MG; Start 12/07/18 at 06:00 Simethicone (Mylicon) 80 mg TID PRN PO .GAS; Start 12/05/18 at 21:30 Senna/Docusate Sodium (Senokot-S) 2 tab BID PRN PO .CONSTIPATION Last administered on 12/06/18at 08:54; Admin Dose 2 TAB; Start 12/05/18 at 21:30 Magnesium Hydroxide (Milk Of Mag) 30 ml HS PRN PO .CONSTIPATION; Start 12/05/18 at 21:30 Bisacodyl (Dulcolax Supp) 10 mg DAILY PRN [place] .CONSTIPATION; Start 12/05/18 at 21:30 Sodium Biphosphate/ Sodium Phosphate (Fleet Enema) 133 ml DAILY PRN [place] .CONSTIPATION; Start 12/05/18 at 21:30 Diphenhydramine HCl (Benadryl) 25 mg Q4H PRN IV .ITCHING; Start 12/05/18 at 21:30 Naloxone HCl (Narcan) 0.2 mg Q2M PRN IV .RESP RATE; Start 12/05/18 at 21:30 Bethanechol Chloride (Urecholine) 25 mg URINARY CATH D/C PRN PO UNABLE TO VOID; Start 12/05/18 at 21:30 Aspirin (Halfprin) 81 mg BID PO Last administered on 12/23/18at 09:23; Admin Dose 81 MG; Start 12/06/18 at 09:00 Vancomycin HCl (Vanco Iv Per Pharmacy) VANCOMYCIN PER PHARMACY PER PROTOCOL XX ; Start 12/11/18 at 11:30 Nystatin (Nystatin Powder) 1 applic BID TOP Last administered on 12/23/18 09:26; Admin Dose 1 APPLIC; Start 12/12/18 at 21:00 Cefepime HCl 50 ml @ 100 mls/hr Q12 IVPB Last administered on 12/23/18at 09:21; Admin Dose 100 MLS/HR; Start 12/13/18 at 21:00 Vancomycin HCl 1.25 gm/Sodium Chloride 250 ml @ 83.333 mls/ hr Q12H IVPB Last administered on 4/15/19at 05:00; Admin Dose 83.333 MLS/HR; Start 12/14/18 at 17:00 Albuterol (Proventil 0.083% (Neb)) 2.5 mg Q2H RESP THERAPY PRN HHN SHORTNESS OF BREATH; Start 12/15/18 at 12:00 Lidocaine (Lidoderm) 1 patch DAILY TD Last administered on 12/23/18 09:24; Adm in Dose 1 PATCH; Start 12/15/18 at 12:00 Acetaminophen (Tylenol Tab) 1,000 mg Q8H PRN PO pain Last administered on 12/20/18 04:15; Admin Dose 1,000 MG; Start 12/16/18 at 19:00 Alteplase, Recombinant (Cathflo (Activase)) 2 mg MAY REPEAT X1 PRN CATHETER IF CATHETER REMAINS OCCULUDED Last administered on 12/17/18 13:20; Admin Dose 2 MG; Start 12/17/18 at 08:30 Sodium Hypochlorite (Dakin'S (Dilute )) 1 applic BID TOP Last administered on 12/23/18 09:24; Admin Dose 1 APPLIC; Start 12/18/18 at 09:00 Gabapentin (Neurontin) 300 mg TID PO Last administered on 12/23/18 14:05; Admin Dose 300 MG; Start 12/22/18 at 13:00 Methocarbamol (Robaxin) 750 mg Q8H PRN PO muscle spasm; Start 12/23/18 at 09:30 OZZIE SOLOMON NP Dec 23, 2018 14:40
[2018-12-23] MEDS: DAPTOMYCIN 390 MG in SOD CHLORIDE 0.9% 100 ML IVPB SCH (17:30)
[2018-12-23 20:24] VITALS: BP 124/68; PULSE 86; RESP 18
[2018-12-24 02:15] VITALS: BP 121/78; PULSE 79; RESP 16
[2018-12-24] MEDS: LEVOTHYROXINE 100 MCG TAB PO SCH (05:14)
[2018-12-24] MEDS: PANTOPRAZOLE (EC) 40 MG TAB PO SCH (05:14)
[2018-12-24 07:41] VITALS: BP 125/59; PULSE 68; RESP 18
[2018-12-24] MEDS: SENNA TAB PO SCH ×2 (09:00→21:00)
[2018-12-24] MEDS: POLYETHYLENE GLYCOL 17 GM PACKET PO SCH (09:00)
[2018-12-24] MEDS: ASPIRIN (EC) 81 MG TAB PO SCH ×2 (09:23→22:13)
[2018-12-24] MEDS: CHOLECALCIFEROL 1,000 UNIT TAB PO SCH (09:23)
[2018-12-24] MEDS: VITAMIN B COMPLEX/VIT C CAP PO SCH (09:24)
[2018-12-24] MEDS: BUPROPION (XL) 150 MG TAB PO SCH (09:24)
[2018-12-24] MEDS: GABAPENTIN 300 MG CAP PO SCH ×3 (09:24→22:13)
[2018-12-24] MEDS: FISH OIL 1,000 MG CAP PO SCH (09:24)
[2018-12-24] MEDS: ASCORBIC ACID 500 MG TAB PO SCH ×2 (09:25→22:13)
[2018-12-24] MEDS: LISINOPRIL 5 MG TAB PO SCH (09:25)
[2018-12-24] MEDS: MULTIVITAMINS THERAPEUTIC TAB PO SCH (09:25)
[2018-12-24] MEDS: LIDOCAINE 5% PATCH TD SCH (09:26)
[2018-12-24] MEDS: CEFEPIME 1GM/50 ML (PMX) 50 ML IVPB SCH ×2 (09:26→22:13)
[2018-12-24] MEDS: SODIUM HYPOCHLORITE (1/40) 1 LITER BTL TOP SCH ×2 (12:59→22:14)
[2018-12-24] MEDS: COLLAGENASE 5 GM (UD JAR) TOP SCH ×2 (12:59→22:13)
[2018-12-24] MEDS: NYSTATIN 30 GM POWDER BTL TOP SCH ×2 (12:59→22:14)
--- NOTE | 2018-12-24 13:06 | CONS ---
Assessment/Plan Assessment/Plan Hospital Course (Demo Recall) Alert, feels good, sitting in a chair Antimicrobials: Daptomycin and cefepime Microbiology: Blood culture on admission grew strep, urine culture grew E. coli, MRSA swab negative, repeat blood cultures negative. Sacral wound cx + VRE/Proteus/Strep 2D echo revealed no vegetations Physical examination: This is well-developed well-nourished elderly woman who is alert in no distress. Head atraumatic normocephalic neck is supple. Chest rise symmetrical breath sounds clear. Heart: S1-S2. Abdomen soft, bowel tones present. Extremities with right knee erythema and swelling Assessment: 1. Status post sepsis, present on admission 2. Streptococcal bacteremia 2 to #3 3. 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 Urinary tract infection 5. History of left total knee replacement 6. History of multilevel discectomy and posterior fusion from L1-L3, please see CT in the chart Plan: Remains stable, pending discharge arrangements, will complete current antibiotics for 7 days, then changed to IV Rocephin, last day January 18 Consultation Date/Type/Reason Admit Date/Time Dec 01, 2018 at 19:24 Initial Consult Date Type of Consult id Date/Time of Note DATE: 12/24/18 TIME: 13:05 Exam/Review of Systems Exam Vitals Vital Signs Date Temp Pulse Resp B/P (MAP) Pulse Ox O2 O2 Flow FiO2 Time Delivery Rate 12/24/18 98.7 68 18 125/59 94 07:41 (81) 12/23/18 Room Air 08:02 Intake and Output 12/23/18 12/23/18 12/24/18 1515:00 23:00 07:00 IntakeIntake Total 550 ml 300 ml BalanceBalance 550 ml 300 ml Results Result Diagram: 12/24/18 0438 12/24/18 0438 Results 24hrs Laboratory Tests Test 12/24/18 04:38 White Blood Count 9.4 Red Blood Count 3.54 L Hemoglobin 9.2 L Hematocrit 30.7 L Mean Corpuscular Volume 86.7 Mean Corpuscular Hemoglobin 26.0 L Mean Corpuscular Hemoglobin Concent 30.0 L Red Cell Distribution Width 17.9 H Platelet Count 332 Mean Platelet Volume 9.4 Immature Granulocytes % 0.500 H Neutrophils % 69.9 Lymphocytes % 13.3 L Monocytes % 14.4 H Eosinophils % 1.1 Basophils % 0.8 Nucleated Red Blood Cells % 0.0 Immature Granulocytes # 0.050 H Neutrophils # 6.6 Lymphocytes # 1.3 Monocytes # 1.4 H Eosinophils # 0.1 Basophils # 0.1 Nucleated Red Blood Cells # 0.0 Sodium Level 141 Potassium Level 3.7 Chloride Level 107 Carbon Dioxide Level 29 Anion Gap 5 Blood Urea Nitrogen 10 Creatinine 0.60 Est Glomerular Filtrat Rate mL/min Glucose Level 110 Calcium Level 8.8 Phosphorus Level 3.9 Magnesium Level 2.0 Creatine Kinase 29 Medications Medication Current Medications Albuterol (Ventolin Hfa) 2 puff Q4H PRN INH WHEEZING AND SOB; Start 12/01/18 at 21:00; Status Hold Ascorbic Acid (Vitamin C) 500 mg BID PO Last administered on 12/24/18 09:25; Admin Dose 500 MG; Start 12/01/18 at 21:00 Bupropion HCl (Wellbutrin Xl) 300 mg DAILY PO Last administered on 12/24/18 0 9:24; Admin Dose 300 MG; Start 12/02/18 at 09:00 Cholecalciferol (Vitamin D) 1,000 unit DAILY PO Last administered on 12/24/18 09:23; Admin Dose 1,000 UNIT; Start 12/02/18 at 09:00 Diclofenac Sodium (Voltaren 1% Gel) 2 gm TID PRN TP PAIN; Start 12/01/18 at 21:00 Levothyroxine Sodium (Synthroid) 100 mcg BEFORE BREAKFAST PO Last administered on 12/24/18 05:14; Admin Dose 100 MCG; Start 12/02/18 at 07:00 Lisinopril (Zestril) 5 mg DAILY PO Last administered on 12/24/18 09:25; Admin Dose 5 MG; Start 12/02/18 at 09:00 Magnesium Hydroxide (Milk Of Mag) 30 ml DAILY PRN PO CONSTIPATION; Start 12/01/18 at 21:00 Multivitamins Therapeutic (Theragran) 1 tab DAILY PO Last administered on 12/24/18 09:25; Admin Dose 1 TAB; Start 12/02/18 at 09:00 Polyethylene Glycol (Miralax) 17 gm DAILY PO Last administered on 12/23/18 09:23; Admin Dose 17 GM; Start 12/02/18 at 09:00 Senna (Senokot) 1 tab BID PO Last administered on 12/23/18 09:22; Admin Dose 1 TAB; Start 12/01/18 at 21:00 Vitamin B Complex/ Vitamin C (Berocca) 1 cap DAILY PO Last administered on 12/24/18 09:24; Admin Dose 1 CAP; Start 12/02/18 at 09:00 Fish Oil (Fish Oil) 1,000 mg DAILY PO Last administered on 12/24/18 09:24; Admin Dose 1,000 MG; Start 12/02/18 at 09:00 Docusate Sodium (Colace) 100 mg Q12H PRN PO .CONSTIPATION; Start 12/01/18 at 22:00 Bisacodyl (Dulcolax) 5 mg DAILY PRN PO .CONSTIPATION; Start 12/01/18 at 22:00 Miscellaneous Information (Pending Santyl Order For Wound Care) This patient ruano... PRN PRN XX WOUND CARE; Start 12/02/18 at 00:00 Collagenase (Santyl) 1 applic BID TOP Last administered on 12/24/18 12:59; Admin Dose 1 APPLIC; Start 12/02/18 at 11:30 Lidocaine (Xylocaine 1% (Mpf)) 30 ml ONCE PRN INJ aspiration ; Start 12/04/18 at 17:30 IV Flush (NS 3 ml) 3 ml PER PROTOCOL IV ; Start 12/05/18 at 21:30 Oxycodone HCl (Roxicodone) 15 mg Q4H PRN PO .PAIN Last administered on 12/23/18 11:20; Admin Dose 15 MG; Start 12/05/18 at 21:30 Oxycodone HCl (Roxicodone) 10 mg Q4H PRN PO .PAIN Last administered on 12/18/18 03:37; Admin Dose 10 MG; Start 12/05/18 at 21:30 Oxycodone HCl (Roxicodone) 5 mg Q4H PRN PO .PAIN Last administered on 12/20/18 00:10; Admin Dose 5 MG; Start 12/05/18 at 21:30 Hydromorphone HCl (Dilaudid) 1 mg Q3H PRN IV .BREAKTHROUGH PAIN Last administered on 12/06/18 06:58; Admin Dose 1 MG; Start 12/05/18 at 21:30 Ondansetron HCl (Zofran Inj) 4 mg Q4H PRN IV NAUSEA/VOMITING; Start 12/06/18 at 21:30 Pantoprazole (Protonix Tab) 40 mg DAILY@06 PO Last administered on 12/24/18 05:14; Admin Dose 40 MG; Start 12/07/18 at 06:00 Simethicone (Mylicon) 80 mg TID PRN PO .GAS; Start 12/05/18 at 21:30 Senna/Docusate Sodium (Senokot-S) 2 tab BID PRN PO .CONSTIPATION Last administered on 12/06/18 08:54; Admin Dose 2 TAB; Start 12/05/18 at 21:30 Magnesium Hydroxide (Milk Of Mag) 30 ml HS PRN PO .CONSTIPATION; Start 12/05/18 at 21:30 Bisacodyl (Dulcolax Supp) 10 mg DAILY PRN [place] .CONSTIPATION; Start 12/05/18 at 21:30 Sodium Biphosphate/ Sodium Phosphate (Fleet Enema) 133 ml DAILY PRN [place] .CONSTIPATION; Start 12/05/18 at 21:30 Diphenhydramine HCl (Benadryl) 25 mg Q4H PRN IV .ITCHING; Start 12/05/18 at 21:30 Naloxone HCl (Narcan) 0.2 mg Q2M PRN IV .RESP RATE; Start 12/05/18 at 21:30 Bethanechol Chloride (Urecholine) 25 mg URINARY CATH D/C PRN PO UNABLE TO VOID; Start 12/05/18 at 21:30 Aspirin (Halfprin) 81 mg BID PO Last administered on 12/24/18 09:23; Admin Dose 81 MG; Start 12/06/18 at 09:00 Nystatin (Nystatin Powder) 1 applic BID TOP Last administered on 12/24/18 12:59; Admin Dose 1 APPLIC; Start 12/12/18 at 21:00 Cefepime HCl 50 ml @ 100 mls/hr Q12 IVPB Last administered on 12/24/18 09:26; Admin Dose 100 MLS/HR; Start 12/13/18 at 21:00 Albuterol (Proventil 0.083% (Neb)) 2.5 mg Q2H RESP THERAPY PRN HHN SHORTNESS OF BREATH; Start 12/15/18 at 12:00 Lidocaine (Lidoderm) 1 patch DAILY TD Last administered on 12/24/18 09:26; Admin Dose 1 PATCH; Start 12/15/18 at 12:00 Acetaminophen (Tylenol Tab) 1,000 mg Q8H PRN PO pain Last administered on 12/20/18 04:15; Admin Dose 1,000 MG; Start 12/16/18 at 19:00 Alteplase, Recombinant (Cathflo (Activase)) 2 mg MAY REPEAT X1 PRN CATHETER IF CATHETER REMAINS OCCULUDED Last administered on 12/17/18 13:20; Admin Dose 2 MG; Start 12/17/18 at 08:30 Sodium Hypochlorite (Dakin'S (Dilute )) 1 applic BID TOP Last administered on 12/24/18 12:59; Admin Dose 1 APPLIC; Start 12/18/18 at 09:00 Gabapentin (Neurontin) 300 mg TID PO Last administered on 12/24/18 12:58; Admin Dose 300 MG; Start 12/22/18 at 13:00 Methocarbamol (Robaxin) 750 mg Q8H PRN PO muscle spasm; Start 12/23/18 at 09:30 Daptomycin 390 mg/ Sodium Chloride 100 ml @ 200 mls/hr Q24H IVPB Last administered on 12/23/18 17:30; Admin Dose 200 MLS/HR; Start 12/23/18 at 16:30 OZZIE SOLOMON NP Dec 24, 2018 13:06
[2018-12-24] MEDS: oxyCODONE 5 MG TAB PO PRN (14:07)
[2018-12-24 14:40] VITALS: BP 104/58; PULSE 84; RESP 18
--- NOTE | 2018-12-24 14:52 | PN ---
Date/Time of Note Date/Time of Note DATE: 12/24/18 TIME: 14:45 Assessment/Plan VTE Prophylaxis Risk score (from Nsg)>0 risk: 6 SCD applied (from Nsg): Yes Pharmacological prophylaxis: other Lines/Catheters IV Catheter Type (from Nrsg): PICC Line Central line still needed: Yes Urinary Cath still in place: No Assessment/Plan Assessment/Plan 1. Septic R knee joint s/p irrigation and debridement of right knee arthroplasty on 12/05/18 - Ortho on board and recommendations appreciated. Continue IV antibiotics until 01/18 then will need to continue PO antibiotics for 3-6 months - pain control 2. Generalized leg weakness - Most likely secondary to deconditioning - PT on board 3. Left leg muscle spasm- stable - continue on Robaxin 4. 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 Chronic spinal disease - h/o significant stenosis of her spine. Lumbar spine and thoracic spine CT show signs of stenosis though no acute fractures. 5. osteoarthritis - pain control 6. urinary tract infection: - Cultures growing ecoli and lactobacillus - asymptomatic 7. Strep Bacteremia - continue current antibiotics - repeat cultures negative 8. Mechanical fall - s/p stable removal from scalp 9. Disposition - CM on board for SNF placement, however very difficult since patient continues to refuse SNFs if not located in [place] or son does not approve of facility Result Diagram: 12/24/18 0438 12/24/18 0438 Results 24hrs Laboratory Tests Test 12/24/18 04:38 White Blood Count 9.4 Red Blood Count 3.54 L Hemoglobin 9.2 L Hematocrit 30.7 L Mean Corpuscular Volume 86.7 Mean Corpuscular Hemoglobin 26.0 L Mean Corpuscular Hemoglobin Concent 30.0 L Red Cell Distribution Width 17.9 H Platelet Count 332 Mean Platelet Volume 9.4 Immature Granulocytes % 0.500 H Neutrophils % 69.9 Lymphocytes % 13.3 L Monocytes % 14.4 H Eosinophils % 1.1 Basophils % 0.8 Nucleated Red Blood Cells % 0.0 Immature Granulocytes # 0.050 H Neutrophils # 6.6 Lymphocytes # 1.3 Monocytes # 1.4 H Eosinophils # 0.1 Basophils # 0.1 Nucleated Red Blood Cells # 0.0 Sodium Level 141 Potassium Level 3.7 Chloride Level 107 Carbon Dioxide Level 29 Anion Gap 5 Blood Urea Nitrogen 10 Creatinine 0.60 Est Glomerular Filtrat Rate mL/min Glucose Level 110 Calcium Level 8.8 Phosphorus Level 3.9 Magnesium Level 2.0 Creatine Kinase 29 Subjective 24 Hr Interval Summary Free Text/Dictation Patient remains frustrated since would like to go home since not successful at finding SNF placement at this time. When discussed nash sonja she states she did not like the attitude of the videotape sales representative and location is too far. Exam/Review of Systems Exam Vitals Vital Signs Date Temp Pulse Resp B/P (MAP) Pulse Ox O2 O2 Flow FiO2 Time Delivery Rate 12/24/18 98.8 84 18 104/58 97 Room Air 14:40 (73) Intake and Output 12/23/18 12/23/18 12/24/18 1515:00 23:00 07:00 IntakeIntake Total 550 ml 300 ml BalanceBalance 550 ml 300 ml Exam General: Patient is laying in bed and answers questions appropriately Neck: Supple Respiratory: Clear to auscultation bilaterally. no wheezing Cardiovascular: regular rate and rhythm, no obvious murmurs Gastrointestinal: soft, non-tender to palpation, bowel sounds heard. Neurological: Moves all extremities spontaneously Skin: Right knee bandage in place, CDI at surgical site Results Results 24hrs Laboratory Tests Test 12/24/18 04:38 White Blood Count 9.4 Red Blood Count 3.54 L Hemoglobin 9.2 L Hematocrit 30.7 L Mean Corpuscular Volume 86.7 Mean Corpuscular Hemoglobin 26.0 L Mean Corpuscular Hemoglobin Concent 30.0 L Red Cell Distribution Width 17.9 H Platelet Count 332 Mean Platelet Volume 9.4 Immature Granulocytes % 0.500 H Neutrophils % 69.9 Lymphocytes % 13.3 L Monocytes % 14.4 H Eosinophils % 1.1 Basophils % 0.8 Nucleated Red Blood Cells % 0.0 Immature Granulocytes # 0.050 H Neutrophils # 6.6 Lymphocytes # 1.3 Monocytes # 1.4 H Eosinophils # 0.1 Basophils # 0.1 Nucleated Red Blood Cells # 0.0 Sodium Level 141 Potassium Level 3.7 Chloride Level 107 Carbon Dioxide Level 29 Anion Gap 5 Blood Urea Nitrogen 10 Creatinine 0.60 Est Glomerular Filtrat Rate mL/min Glucose Level 110 Calcium Level 8.8 Phosphorus Level 3.9 Magnesium Level 2.0 Creatine Kinase 29 Medications Medication Current Medications Albuterol (Ventolin Hfa) 2 puff Q4H PRN INH WHEEZING AND SOB; Start 12/01/18 at 21:00; Status Hold Ascorbic Acid (Vitamin C) 500 mg BID PO Last administered on 12/24/18 09:25; Admin Dose 500 MG; Start 12/01/18 at 21:00 Bupropion HCl (Wellbutrin Xl) 300 mg DAILY PO Last administered on 12/24/18:24; Admin Dose 300 MG; Start 12/02/18 at 09:00 Cholecalciferol (Vitamin D) 1,000 unit DAILY PO Last administered on 12/24/18 09:23; Admin Dose 1,000 UNIT; Start 12/02/18 at 09:00 Diclofenac Sodium (Voltaren 1% Gel) 2 gm TID PRN TP PAIN; Start 12/01/18 at 21:00 Levothyroxine Sodium (Synthroid) 100 mcg BEFORE BREAKFAST PO Last administered on 12/24/18 05:14; Admin Dose 100 MCG; Start 12/02/18 at 07:00 Lisinopril (Zestril) 5 mg DAILY PO Last administered on 12/24/18:25; Admin Dose 5 MG; Start 12/02/18 at 09:00 Magnesium Hydroxide (Milk Of Mag) 30 ml DAILY PRN PO CONSTIPATION; Start 12/01/18 at 21:00 Multivitamins Therapeutic (Theragran) 1 tab DAILY PO Last administered on 12/24/18 09:25; Admin Dose 1 TAB; Start 12/02/18 at 09:00 Polyethylene Glycol (Miralax) 17 gm DAILY PO Last administered on 12/23/18 09:23; Admin Dose 17 GM; Start 12/02/18 at 09:00 Senna (Senokot) 1 tab BID PO Last administered on 12/23/18 09:22; Admin Dose 1 TAB; Start 12/01/18 at 21:00 Vitamin B Complex/ Vitamin C (Berocca) 1 cap DAILY PO Last administered on 12/24/18 09:24; Admin Dose 1 CAP; Start 12/02/18 at 09:00 Fish Oil (Fish Oil) 1,000 mg DAILY PO Last administered on 12/24/18 09:24; Admin Dose 1,000 MG; Start 12/02/18 at 09:00 Docusate Sodium (Colace) 100 mg Q12H PRN PO .CONSTIPATION; Start 12/01/18 at 22:00 Bisacodyl (Dulcolax) 5 mg DAILY PRN PO .CONSTIPATION; Start 12/01/18 at 22:00 Miscellaneous Information (Pending Santyl Order For Wound Care) This patient ruano... PRN PRN XX WOUND CARE; Start 12/02/18 at 00:00 Collagenase (Santyl) 1 applic BID TOP Last administered on 12/24/18at 12:59; Admin Dose 1 APPLIC; Start 12/02/18 at 11:30 Lidocaine (Xylocaine 1% (Mpf)) 30 ml ONCE PRN INJ aspiration ; Start 12/04/18 at 17:30 IV Flush (NS 3 ml) 3 ml PER PROTOCOL IV ; Start 12/05/18 at 21:30 Oxycodone HCl (Roxicodone) 15 mg Q4H PRN PO .PAIN Last administered on 12/23/18at 11:20; Admin Dose 15 MG; Start 12/05/18 at 21:30 Oxycodone HCl (Roxicodone) 10 mg Q4H PRN PO .PAIN Last administered on at 03:37; Admin Dose 10 MG; Start 12/05/18 at 21:30 Oxycodone HCl (Roxicodone) 5 mg Q4H PRN PO .PAIN Last administered on 12/24/18at 14:07; Admin Dose 5 MG; Start 12/05/18 at 21:30 Hydromorphone HCl (Dilaudid) 1 mg Q3H PRN IV .BREAKTHROUGH PAIN Last administered on 12/06/18at 06:58; Admin Dose 1 MG; Start 12/05/18 at 21:30 Ondansetron HCl (Zofran Inj) 4 mg Q4H PRN IV NAUSEA/VOMITING; Start 12/06/18 at 21:30 Pantoprazole (Protonix Tab) 40 mg DAILY@06 PO Last administered on 12/24/18at 05:14; Admin Dose 40 MG; Start 12/07/18 at 06:00 Simethicone (Mylicon) 80 mg TID PRN PO .GAS; Start 12/05/18 at 21:30 Senna/Docusate Sodium (Senokot-S) 2 tab BID PRN PO .CONSTIPATION Last administered on 12/06/18 08:54; Admin Dose 2 TAB; Start 12/05/18 at 21:30 Magnesium Hydroxide (Milk Of Mag) 30 ml HS PRN PO .CONSTIPATION; Start 12/05/18 at 21:30 Bisacodyl (Dulcolax Supp) 10 mg DAILY PRN [place] .CONSTIPATION; Start 12/05/18 at 21:30 Sodium Biphosphate/ Sodium Phosphate (Fleet Enema) 133 ml DAILY PRN [place] .CONSTIPATION; Start 12/05/18 at 21:30 Diphenhydramine HCl (Benadryl) 25 mg Q4H PRN IV .ITCHING; Start 12/05/18 at 21:30 Naloxone HCl (Narcan) 0.2 mg Q2M PRN IV .RESP RATE; Start 12/05/18 at 21:30 Bethanechol Chloride (Urecholine) 25 mg URINARY CATH D/C PRN PO UNABLE TO VOID; Start 12/05/18 at 21:30 Aspirin (Halfprin) 81 mg BID PO Last administered on 12/24/18 09:23; Admin Dose 81 MG; Start 12/06/18 at 09:00 Nystatin (Nystatin Powder) 1 applic BID TOP Last administered on 12/24/18 12:59; Admin Dose 1 APPLIC; Start 12/12/18 at 21:00 Cefepime HCl 50 ml @ 100 mls/hr Q12 IVPB Last administered on 12/24/18 09:26; Admin Dose 100 MLS/HR; Start 12/13/18 at 21:00 Albuterol (Proventil 0.083% (Neb)) 2.5 mg Q2H RESP THERAPY PRN HHN SHORTNESS OF BREATH; Start 12/15/18 at 12:00 Lidocaine (Lidoderm) 1 patch DAILY TD Last administered on 12/24/18 09:26; Admin Dose 1 PATCH; Start 12/15/18 at 12:00 Acetaminophen (Tylenol Tab) 1,000 mg Q8H PRN PO pain Last administered on 12/20/18 04:15; Admin Dose 1,000 MG; Start 12/16/18 at 19:00 Alteplase, Recombinant (Cathflo (Activase)) 2 mg MAY REPEAT X1 PRN CATHETER IF CATHETER REMAINS OCCULUDED Last administered on 4/9/19at 13:20; Admin Dose 2 MG; Start 12/17/18 at 08:30 Sodium Hypochlorite (Dakin'S (Dilute )) 1 applic BID TOP Last administered on 12/24/18 12:59; Admin Dose 1 APPLIC; Start 12/18/18 at 09:00 Gabapentin (Neurontin) 300 mg TID PO Last administered on 12/24/18at 12:58; Admin Dose 300 MG; Start 12/22/18 at 13:00 Methocarbamol (Robaxin) 750 mg Q8H PRN PO muscle spasm; Start 12/23/18 at 09:30 Daptomycin 390 mg/ Sodium Chloride 100 ml @ 200 mls/hr Q24H IVPB Last administered on 12/23/18 17:30; Admin Dose 200 MLS/HR; Start 12/23/18 at 16:30 BALTAZAR BARAJAS MD Dec 24, 2018 14:52
[2018-12-24] MEDS: DAPTOMYCIN 390 MG in SOD CHLORIDE 0.9% 100 ML IVPB SCH (17:00)
[2018-12-24 20:14] VITALS: BP 110/55; PULSE 92; RESP 18
[2018-12-25 02:28] VITALS: BP 108/56; PULSE 91; RESP 18
[2018-12-25] MEDS: ACETAMINOPHEN 500 MG TAB PO PRN ×2 (03:15→21:57)
[2018-12-25] MEDS: LEVOTHYROXINE 100 MCG TAB PO SCH (06:55)
[2018-12-25] MEDS: PANTOPRAZOLE (EC) 40 MG TAB PO SCH (06:55)
[2018-12-25 07:52] VITALS: BP 112/60; PULSE 88; RESP 18
[2018-12-25] MEDS: NYSTATIN 30 GM POWDER BTL TOP SCH ×2 (09:00→21:43)
[2018-12-25] MEDS: SENNA TAB PO SCH ×2 (09:00→21:00)
[2018-12-25] MEDS: LISINOPRIL 5 MG TAB PO SCH (09:00)
[2018-12-25] MEDS: COLLAGENASE 5 GM (UD JAR) TOP SCH (09:20)
[2018-12-25] MEDS: CEFEPIME 1GM/50 ML (PMX) 50 ML IVPB SCH ×2 (09:31→21:39)
[2018-12-25] MEDS: POLYETHYLENE GLYCOL 17 GM PACKET PO SCH (09:32)
[2018-12-25] MEDS: LIDOCAINE 5% PATCH TD SCH (09:32)
[2018-12-25] MEDS: CHOLECALCIFEROL 1,000 UNIT TAB PO SCH (09:32)
[2018-12-25] MEDS: VITAMIN B COMPLEX/VIT C CAP PO SCH (09:33)
[2018-12-25] MEDS: FISH OIL 1,000 MG CAP PO SCH (09:33)
[2018-12-25] MEDS: ASPIRIN (EC) 81 MG TAB PO SCH ×2 (09:34→21:40)
[2018-12-25] MEDS: GABAPENTIN 300 MG CAP PO SCH ×3 (09:34→21:40)
[2018-12-25] MEDS: MULTIVITAMINS THERAPEUTIC TAB PO SCH (09:34)
[2018-12-25] MEDS: ASCORBIC ACID 500 MG TAB PO SCH ×2 (09:34→21:40)
[2018-12-25] MEDS: BUPROPION (XL) 150 MG TAB PO SCH (10:35)
[2018-12-25] MEDS: SODIUM HYPOCHLORITE (1/40) 1 LITER BTL TOP SCH (10:36)
--- NOTE | 2018-12-25 14:06 | CONS ---
Assessment/Plan Assessment/Plan Hospital Course (Demo Recall) No acute changes, awake, looks comfortable, no fevers Antimicrobials: Daptomycin, cefepime Microbiology: Blood culture on admission grew strep, urine culture grew E. coli, MRSA swab negative, repeat blood cultures negative. Sacral wound cx + VRE/Proteus/Strep 2D echo revealed no vegetations Physical examination: This is well-developed well-nourished elderly woman who is alert in no distress. Head atraumatic normocephalic neck is supple. Chest rise symmetrical breath sounds clear. Heart: S1-S2. Abdomen soft, bowel tones present. Extremities with right knee erythema and swelling Assessment: 1. Status post sepsis, present on admission 2. Streptococcal bacteremia 2 to #3 3. 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 Urinary tract infection 5. History of left total knee replacement 6. History of multilevel discectomy and posterior fusion from L1-L3, please see CT in the chart Plan: Remains stable, pending discharge arrangements, continue on current antibiotics for 6 more days, then changed to IV Rocephin, last day January 18 Consultation Date/Type/Reason Admit Date/Time Dec 01, 2018 at 19:24 Initial Consult Date Type of Consult id Date/Time of Note DATE: 12/25/18 TIME: 14:05 Exam/Review of Systems Exam Vitals Vital Signs Date Temp Pulse Resp B/P (MAP) Pulse Ox O2 O2 Flow FiO2 Time Delivery Rate 12/25/18 98.0 88 18 112/60 92 Room Air 07:52 (77) Intake and Output 12/24/18 12/24/18 12/25/18 1515:00 23:00 07:00 IntakeIntake Total 730 ml 350 ml 200 ml BalanceBalance 730 ml 350 ml 200 ml Results Result Diagram: 12/24/18 0438 12/24/18 0438 Medications Medication Current Medications Albuterol (Ventolin Hfa) 2 puff Q4H PRN INH WHEEZING AND SOB; Start 12/01/18 at 21:00; Status Hold Ascorbic Acid (Vitamin C) 500 mg BID PO Last administered on 12/25/18at 09:34; Admin Dose 500 MG; Start 12/01/18 at 21:00 Bupropion HCl (Wellbutrin Xl) 300 mg DAILY PO Last administered on 4/17/19at 10:35; Admin Dose 300 MG; Start 12/02/18 at 09:00 Cholecalciferol (Vitamin D) 1,000 unit DAILY PO Last administered on 12/25/18 09:32; Admin Dose 1,000 UNIT; Start 12/02/18 at 09:00 Diclofenac Sodium (Voltaren 1% Gel) 2 gm TID PRN TP PAIN; Start 12/01/18 at 21:00 Levothyroxine Sodium (Synthroid) 100 mcg BEFORE BREAKFAST PO Last administered on 12/25/18 06:55; Admin Dose 100 MCG; Start 12/02/18 at 07:00 Lisinopril (Zestril) 5 mg DAILY PO Last administered on 12/24/18 09:25; Admin Dose 5 MG; Start 12/02/18 at 09:00 Magnesium Hydroxide (Milk Of Mag) 30 ml DAILY PRN PO CONSTIPATION; Start 12/01/18 at 21:00 Multivitamins Therapeutic (Theragran) 1 tab DAILY PO Last administered on 12/25/18 09:34; Admin Dose 1 TAB; Start 12/02/18 at 09:00 Polyethylene Glycol (Miralax) 17 gm DAILY PO Last administered on 12/25/18 09:32; Admin Dose 17 GM; Start 12/02/18 at 09:00 Senna (Senokot) 1 tab BID PO Last administered on 12/23/18 09:22; Admin Dose 1 TAB; Start 12/01/18 at 21:00 Vitamin B Complex/ Vitamin C (Berocca) 1 cap DAILY PO Last administered on 12/25/18 09:33; Admin Dose 1 CAP; Start 12/02/18 at 09:00 Fish Oil (Fish Oil) 1,000 mg DAILY PO Last administered on 12/25/18 09:33; Admin Dose 1,000 MG; Start 12/02/18 at 09:00 Docusate Sodium (Colace) 100 mg Q12H PRN PO .CONSTIPATION; Start 12/01/18 at 22:00 Bisacodyl (Dulcolax) 5 mg DAILY PRN PO .CONSTIPATION; Start 12/01/18 at 22:00 Miscellaneous Information (Pending Santyl Order For Wound Care) This patient ruano... PRN PRN XX WOUND CARE; Start 12/02/18 at 00:00 Collagenase (Santyl) 1 applic BID TOP Last administered on 12/25/18 09:20; Admin Dose 1 APPLIC; Start 12/02/18 at 11:30 Lidocaine (Xylocaine 1% (Mpf)) 30 ml ONCE PRN INJ aspiration ; Start 12/04/18 at 17:30 IV Flush (NS 3 ml) 3 ml PER PROTOCOL IV ; Start 12/05/18 at 21:30 Oxycodone HCl (Roxicodone) 15 mg Q4H PRN PO .PAIN Last administered on 12/23/18 11:20; Admin Dose 15 MG; Start 12/05/18 at 21:30 Oxycodone HCl (Roxicodone) 10 mg Q4H PRN PO .PAIN Last administered on 12/18/18 03:37; Admin Dose 10 MG; Start 12/05/18 at 21:30 Oxycodone HCl (Roxicodone) 5 mg Q4H PRN PO .PAIN Last administered on 12/24/18 14:07; Admin Dose 5 MG; Start 12/05/18 at 21:30 Hydromorphone HCl (Dilaudid) 1 mg Q3H PRN IV .BREAKTHROUGH PAIN Last administered on 12/06/18 06:58; Admin Dose 1 MG; Start 12/05/18 at 21:30 Ondansetron HCl (Zofran Inj) 4 mg Q4H PRN IV NAUSEA/VOMITING; Start 12/06/18 at 21:30 Pantoprazole (Protonix Tab) 40 mg DAILY@06 PO Last administered on 12/25/18 06:55; Admin Dose 40 MG; Start 12/07/18 at 06:00 Simethicone (Mylicon) 80 mg TID PRN PO .GAS; Start 12/05/18 at 21:30 Senna/Docusate Sodium (Senokot-S) 2 tab BID PRN PO .CONSTIPATION Last administered on 12/06/18 08:54; Admin Dose 2 TAB; Start 12/05/18 at 21:30 Magnesium Hydroxide (Milk Of Mag) 30 ml HS PRN PO .CONSTIPATION; Start 12/05/18 at 21:30 Bisacodyl (Dulcolax Supp) 10 mg DAILY PRN [place] .CONSTIPATION; Start 12/05/18 at 21:30 Sodium Biphosphate/ Sodium Phosphate (Fleet Enema) 133 ml DAILY PRN [place] .CONSTIPATION; Start 12/05/18 at 21:30 Diphenhydramine HCl (Benadryl) 25 mg Q4H PRN IV .ITCHING; Start 12/05/18 at 21:30 Naloxone HCl (Narcan) 0.2 mg Q2M PRN IV .RESP RATE; Start 12/05/18 at 21:30 Bethanechol Chloride (Urecholine) 25 mg URINARY CATH D/C PRN PO UNABLE TO VOID; Start 12/05/18 at 21:30 Aspirin (Halfprin) 81 mg BID PO Last administered on 12/25/18 09:34; Admin Dose 81 MG; Start 12/06/18 at 09:00 Nystatin (Nystatin Powder) 1 applic BID TOP Last administered on 12/24/18 22:14; Admin Dose 1 APPLIC; Start 12/12/18 at 21:00 Cefepime HCl 50 ml @ 100 mls/hr Q12 IVPB Last administered on 12/25/18 09:31; Admin Dose 100 MLS/HR; Start 12/13/18 at 21:00 Albuterol (Proventil 0.083% (Neb)) 2.5 mg Q2H RESP THERAPY PRN HHN SHORTNESS OF BREATH; Start 12/15/18 at 12:00 Lidocaine (Lidoderm) 1 patch DAILY TD Last administered on 12/25/18 09:32; Admin Dose 1 PATCH; Start 12/15/18 at 12:00 Acetaminophen (Tylenol Tab) 1,000 mg Q8H PRN PO pain Last administered on 12/25/18 03:15; Admin Dose 1,000 MG; Start 12/16/18 at 19:00 Alteplase, Recombinant (Cathflo (Activase)) 2 mg MAY REPEAT X1 PRN CATHETER IF CATHETER REMAINS OCCULUDED Last administered on 12/17/18 13:20; Admin Dose 2 MG; Start 12/17/18 at 08:30 Sodium Hypochlorite (Dakin'S (Dilute )) 1 applic BID TOP Last administered on 12/25/18 10:36; Admin Dose 1 APPLIC; Start 12/18/18 at 09:00 Gabapentin (Neurontin) 300 mg TID PO Last administered on 4/17/19at 13:44; Admi n Dose 300 MG; Start 12/22/18 at 13:00 Methocarbamol (Robaxin) 750 mg Q8H PRN PO muscle spasm; Start 12/23/18 at 09:30 Daptomycin 390 mg/ Sodium Chloride 100 ml @ 200 mls/hr Q24H IVPB Last administ ered on 12/24/18at 17:00; Admin Dose 200 MLS/HR; Start 12/23/18 at 16:30 OZZIE SOLOMON NP Dec 25, 2018 14:06
--- NOTE | 2018-12-25 14:48 | PN ---
Date/Time of Note Date/Time of Note DATE: 12/25/18 TIME: 14:43 Assessment/Plan VTE Prophylaxis Risk score (from Nsg)>0 risk: 5 SCD applied (from Nsg): Yes Pharmacological prophylaxis: other Lines/Catheters IV Catheter Type (from Nrsg): PICC Line Central line still needed: Yes Urinary Cath still in place: No Assessment/Plan Assessment/Plan 1. Septic R knee joint s/p I&D on 12/05/18 - Patient remains stable. Frustrated she is not getting enough physical therapy and discussed reason for SNF placement sooner than later - Ortho on board and recommendations appreciated. Continue IV antibiotics until 01/18 then will need to continue PO antibiotics for 3-6 months - pain control 2. Generalized leg weakness - Most likely secondary to deconditioning - PT on board 3. Left leg muscle spasm- stable - continue on Robaxin PRN 4. 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 Chronic spinal disease - h/o significant stenosis of her spine. Lumbar spine and thoracic spine CT show signs of stenosis though no acute fractures. 6. osteoarthritis - pain control 7. urinary tract infection- treated - Cultures growing ecoli and lactobacillus - asymptomatic 8. Strep Bacteremia - continue current antibiotics - repeat cultures negative 9. Mechanical fall - s/p stable removal from scalp 10. Disposition - Discussion with CM and SW regarding placement given patient and son very particular about location and facility. Son has not been agreeable to HHPT option but will readdress given barriers to SNF placement present. Result Diagram: 12/24/18 0438 12/24/18 0438 Subjective 24 Hr Interval Summary Free Text/Dictation Patient is upset she is still inpatient. Discussed son does not want her being d/c home although she would rather go home. No acute overnight events. Exam/Review of Systems Exam Vitals Vital Signs Date Temp Pulse Resp B/P (MAP) Pulse Ox O2 O2 Flow FiO2 Time Delivery Rate 12/25/18 98.0 88 18 112/60 92 Room Air 07:52 (77) Intake and Output 12/24/18 12/24/18 12/25/18 1414:59 22:59 06:59 IntakeIntake Total 610 ml 470 ml 200 ml BalanceBalance 610 ml 470 ml 200 ml Exam General: Patient is laying in bed and answers questions appropriately. Frustrated. no acute distress Neck: Supple Respiratory: Clear to auscultation bilaterally. no wheezing Cardiovascular: regular rate and rhythm, no obvious murmurs Gastrointestinal: soft, non-tender to palpation, bowel sounds heard. Neurological: Moves all extremities spontaneously Skin: Right knee bandage in place, CDI at surgical site Medications Medication Current Medications Albuterol (Ventolin Hfa) 2 puff Q4H PRN INH WHEEZING AND SOB; Start 12/01/18 at 21:00; Status Hold Ascorbic Acid (Vitamin C) 500 mg BID PO Last administered on 12/25/18 09:34; Admin Dose 500 MG; Start 12/01/18 at 21:00 Bupropion HCl (Wellbutrin Xl) 300 mg DAILY PO Last administered on 12/25/18 10:35; Admin Dose 300 MG; Start 12/02/18 at 09:00 Cholecalciferol (Vitamin D) 1,000 unit DAILY PO Last administered on 12/25/18 09:32; Admin Dose 1,000 UNIT; Start 12/02/18 at 09:00 Diclofenac Sodium (Voltaren 1% Gel) 2 gm TID PRN TP PAIN; Start 12/01/18 at 21:00 Levothyroxine Sodium (Synthroid) 100 mcg BEFORE BREAKFAST PO Last administered on 12/25/18 06:55; Admin Dose 100 MCG; Start 12/02/18 at 07:00 Lisinopril (Zestril) 5 mg DAILY PO Last administered on 12/24/18 09:25; Admin Dose 5 MG; Start 12/02/18 at 09:00 Magnesium Hydroxide (Milk Of Mag) 30 ml DAILY PRN PO CONSTIPATION; Start 12/01/18 at 21:00 Multivitamins Therapeutic (Theragran) 1 tab DAILY PO Last administered on 12/25/18 09:34; Admin Dose 1 TAB; Start 12/02/18 at 09:00 Polyethylene Glycol (Miralax) 17 gm DAILY PO Last administered on 12/25/18 09:32; Admin Dose 17 GM; Start 12/02/18 at 09:00 Senna (Senokot) 1 tab BID PO Last administered on 12/23/18 09:22; Admin Dose 1 TAB; Start 12/01/18 at 21:00 Vitamin B Complex/ Vitamin C (Berocca) 1 cap DAILY PO Last administered on 12/25/18 09:33; Admin Dose 1 CAP; Start 12/02/18 at 09:00 Fish Oil (Fish Oil) 1,000 mg DAILY PO Last administered on 12/25/18 09:33; Admin Dose 1,000 MG; Start 12/02/18 at 09:00 Docusate Sodium (Colace) 100 mg Q12H PRN PO .CONSTIPATION; Start 12/01/18 at 22:00 Bisacodyl (Dulcolax) 5 mg DAILY PRN PO .CONSTIPATION; Start 12/01/18 at 22:00 Miscellaneous Information (Pending Santyl Order For Wound Care) This patient ruano... PRN PRN XX WOUND CARE; Start 12/02/18 at 00:00 Collagenase (Santyl) 1 applic BID TOP Last administered on 12/25/18 09:20; Admin Dose 1 APPLIC; Start 12/02/18 at 11:30 Lidocaine (Xylocaine 1% (Mpf)) 30 ml ONCE PRN INJ aspiration ; Start 12/04/18 at 17:30 IV Flush (NS 3 ml) 3 ml PER PROTOCOL IV ; Start 12/05/18 at 21:30 Oxycodone HCl (Roxicodone) 15 mg Q4H PRN PO .PAIN Last administered on 12/23/18 11:20; Admin Dose 15 MG; Start 12/05/18 at 21:30 Oxycodone HCl (Roxicodone) 10 mg Q4H PRN PO .PAIN Last administered on 12/18/18 03:37; Admin Dose 10 MG; Start 12/05/18 at 21:30 Oxycodone HCl (Roxicodone) 5 mg Q4H PRN PO .PAIN Last administered on 12/24/18 14:07; Admin Dose 5 MG; Start 12/05/18 at 21:30 Hydromorphone HCl (Dilaudid) 1 mg Q3H PRN IV .BREAKTHROUGH PAIN Last administe red on 12/06/18 06:58; Admin Dose 1 MG; Start 12/05/18 at 21:30 Ondansetron HCl (Zofran Inj) 4 mg Q4H PRN IV NAUSEA/VOMITING; Start 12/06/18 at 21:30 Pantoprazole (Protonix Tab) 40 mg DAILY@06 PO Last administered on 12/25/18 06:55; Admin Dose 40 MG; Start 12/07/18 at 06:00 Simethicone (Mylicon) 80 mg TID PRN PO .GAS; Start 12/05/18 at 21:30 Senna/Docusate Sodium (Senokot-S) 2 tab BID PRN PO .CONSTIPATION Last administered on 12/06/18at 08:54; Admin Dose 2 TAB; Start 12/05/18 at 21:30 Magnesium Hydroxide (Milk Of Mag) 30 ml HS PRN PO .CONSTIPATION; Start 12/05/18 at 21:30 Bisacodyl (Dulcolax Supp) 10 mg DAILY PRN [place] .CONSTIPATION; Start 12/05/18 at 21:30 Sodium Biphosphate/ Sodium Phosphate (Fleet Enema) 133 ml DAILY PRN [place] .CONSTIPATION; Start 12/05/18 at 21:30 Diphenhydramine HCl (Benadryl) 25 mg Q4H PRN IV .ITCHING; Start 12/05/18 at 21:30 Naloxone HCl (Narcan) 0.2 mg Q2M PRN IV .RESP RATE; Start 12/05/18 at 21:30 Bethanechol Chloride (Urecholine) 25 mg URINARY CATH D/C PRN PO UNABLE TO VOID; Start 12/05/18 at 21:30 Aspirin (Halfprin) 81 mg BID PO Last administered on 12/25/18 09:34; Admin Dose 81 MG; Start 12/06/18 at 09:00 Nystatin (Nystatin Powder) 1 applic BID TOP Last administered on 12/24/18at 22:14; Admin Dose 1 APPLIC; Start 12/12/18 at 21:00 Cefepime HCl 50 ml @ 100 mls/hr Q12 IVPB Last administered on 12/25/18 09:31; Admin Dose 100 MLS/HR; Start 12/13/18 at 21:00 Albuterol (Proventil 0.083% (Neb)) 2.5 mg Q2H RESP THERAPY PRN HHN SHORTNESS OF BREATH; Start 12/15/18 at 12:00 Lidocaine (Lidoderm) 1 patch DAILY TD Last administered on 4/17/19at 09:32; Admin Dose 1 PATCH; Start 12/15/18 at 12:00 Acetaminophen (Tylenol Tab) 1,000 mg Q8H PRN PO pain Last administered on 12/25/18 03:15; Admin Dose 1,000 MG; Start 12/16/18 at 19:00 Alteplase, Recombinant (Cathflo (Activase)) 2 mg MAY REPEAT X1 PRN CATHETER IF CATHETER REMAINS OCCULUDED Last administered on 12/17/18 13:20; Admin Dose 2 MG; Start 12/17/18 at 08:30 Sodium Hypochlorite (Dakin'S (Dilute )) 1 applic BID TOP Last administered on 12/25/18 10:36; Admin Dose 1 APPLIC; Start 12/18/18 at 09:00 Gabapentin (Neurontin) 300 mg TID PO Last administered on 12/25/18 13:44; Admin Dose 300 MG; Start 12/22/18 at 13:00 Methocarbamol (Robaxin) 750 mg Q8H PRN PO muscle spasm; Start 12/23/18 at 09:30 Daptomycin 390 mg/ Sodium Chloride 100 ml @ 200 mls/hr Q24H IVPB Last administered on 12/24/18 17:00; Admin Dose 200 MLS/HR; Start 12/23/18 at 16:30 BALTAZAR BARAJAS MD Dec 25, 2018 14:48
[2018-12-25 15:50] VITALS: BP 120/66; PULSE 82; RESP 18
[2018-12-25] MEDS: DAPTOMYCIN 390 MG in SOD CHLORIDE 0.9% 100 ML IVPB SCH (16:13)
[2018-12-25 20:40] VITALS: BP 128/76; PULSE 89; RESP 19
--- NOTE | 2018-12-25 22:26 | CONS ---
Assessment/Plan Assessment/Plan Hospital Course (Demo Recall) Preoperative cardiac risk stratification Septic arthritis status post surgery 12/05/2018 Preserved ejection fraction Hypertension -Denies symptoms of chest pain, shortness of breath or palpitations. -BP trend overall well controlled. Consultation Date/Type/Reason Admit Date/Time Dec 01, 2018 at 19:24 Initial Consult Date 12/04/18 Type of Consult Cardiology Date/Time of Note DATE: 12/25/18 TIME: 22:24 24 HR Interval Summary Free Text/Dictation no cp, sob, palp Exam/Review of Systems Vital Signs Vitals Vital Signs Date Temp Pulse Resp B/P (MAP) Pulse Ox O2 O2 Flow FiO2 Time Delivery Rate 12/25/18 100.8 21:57 12/25/18 89 19 128/76 94 20:40 (93) 12/25/18 Room Air 15:50 Intake and Output 12/24/18 12/24/18 12/25/18 1515:00 23:00 07:00 IntakeIntake Total 730 ml 350 ml 200 ml BalanceBalance 730 ml 350 ml 200 ml Exam Constitutional: alert, oriented Head: normocephalic Respiratory: other (course bs, no wheeze) Cardiovascular: regular rate and rhythm (s1s2) Gastrointestinal: soft, non-tender, bowel sounds Extremities: other (no sig edema) Labs Result Diagram: 12/24/1843712/24/18437 Medications Medications Current Medications Albuterol (Ventolin Hfa) 2 puff Q4H PRN INH WHEEZING AND SOB; Start 12/01/18 at 21:00; Status Hold Ascorbic Acid (Vitamin C) 500 mg BID PO Last administered on 12/25/18at 21:40; Admin Dose 500 MG; Start 12/01/18 at 21:00 Bupropion HCl (Wellbutrin Xl) 300 mg DAILY PO Last administered on 12/25/18at 10:35; Admin Dose 300 MG; Start 12/02/18 at 09:00 Cholecalciferol (Vitamin D) 1,000 unit DAILY PO Last administered on 12/25/18at 09:32; Admin Dose 1,000 UNIT; Start 12/02/18 at 09:00 Diclofenac Sodium (Voltaren 1% Gel) 2 gm TID PRN TP PAIN; Start 12/01/18 at 21:00 Levothyroxine Sodium (Synthroid) 100 mcg BEFORE BREAKFAST PO Last administered on 12/25/18 06:55; Admin Dose 100 MCG; Start 12/02/18 at 07:00 Lisinopril (Zestril) 5 mg DAILY PO Last administered on 12/24/18 09:25; Admin Dose 5 MG; Start 12/02/18 at 09:00 Magnesium Hydroxide (Milk Of Mag) 30 ml DAILY PRN PO CONSTIPATION; Start 12/01/18 at 21:00 Multivitamins Therapeutic (Theragran) 1 tab DAILY PO Last administered on 12/25/18 09:34; Admin Dose 1 TAB; Start 12/02/18 at 09:00 Polyethylene Glycol (Miralax) 17 gm DAILY PO Last administered on 12/25/18 09:32; Admin Dose 17 GM; Start 12/02/18 at 09:00 Senna (Senokot) 1 tab BID PO Last administered on 12/23/18 09:22; Admin Dose 1 TAB; Start 12/01/18 at 21:00 Vitamin B Complex/ Vitamin C (Berocca) 1 cap DAILY PO Last administered on 12/25/18 09:33; Admin Dose 1 CAP; Start 12/02/18 at 09:00 Fish Oil (Fish Oil) 1,000 mg DAILY PO Last administered on 12/25/18 09:33; Admin Dose 1,000 MG; Start 12/02/18 at 09:00 Docusate Sodium (Colace) 100 mg Q12H PRN PO .CONSTIPATION; Start 12/01/18 at 22:00 Bisacodyl (Dulcolax) 5 mg DAILY PRN PO .CONSTIPATION; Start 12/01/18 at 22:00 Lidocaine (Xylocaine 1% (Mpf)) 30 ml ONCE PRN INJ aspiration ; Start 12/04/18 at 17:30 IV Flush (NS 3 ml) 3 ml PER PROTOCOL IV ; Start 12/05/18 at 21:30 Oxycodone HCl (Roxicodone) 15 mg Q4H PRN PO .PAIN Last administered on 12/23/18 11:20; Admin Dose 15 MG; Start 12/05/18 at 21:30 Oxycodone HCl (Roxicodone) 10 mg Q4H PRN PO .PAIN Last administered on 4/10/19at 03:37; Admin Dose 10 MG; Start 12/05/18 at 21:30 Oxycodone HCl (Roxicodone) 5 mg Q4H PRN PO .PAIN Last administered on 12/24/18at 14:07; Admin Dose 5 MG; Start 12/05/18 at 21:30 Hydromorphone HCl (Dilaudid) 1 mg Q3H PRN IV .BREAKTHROUGH PAIN Last administered on 12/06/18at 06:58; Admin Dose 1 MG; Start 12/05/18 at 21:30 Ondansetron HCl (Zofran Inj) 4 mg Q4H PRN IV NAUSEA/VOMITING; Start 12/06/18 at 21:30 Pantoprazole (Protonix Tab) 40 mg DAILY@06 PO Last administered on 12/25/18at 06:55; Admin Dose 40 MG; Start 12/07/18 at 06:00 Simethicone (Mylicon) 80 mg TID PRN PO .GAS; Start 12/05/18 at 21:30 Senna/Docusate Sodium (Senokot-S) 2 tab BID PRN PO .CONSTIPATION Last administered on 12/06/18at 08:54; Admin Dose 2 TAB; Start 12/05/18 at 21:30 Magnesium Hydroxide (Milk Of Mag) 30 ml HS PRN PO .CONSTIPATION; Start 12/05/18 at 21:30 Bisacodyl (Dulcolax Supp) 10 mg DAILY PRN [place] .CONSTIPATION; Start 12/05/18 at 21:30 Sodium Biphosphate/ Sodium Phosphate (Fleet Enema) 133 ml DAILY PRN [place] .CONSTIPATION; Start 12/05/18 at 21:30 Diphenhydramine HCl (Benadryl) 25 mg Q4H PRN IV .ITCHING; Start 12/05/18 at 21:30 Naloxone HCl (Narcan) 0.2 mg Q2M PRN IV .RESP RATE; Start 12/05/18 at 21:30 Bethanechol Chloride (Urecholine) 25 mg URINARY CATH D/C PRN PO UNABLE TO VOID; Start 12/05/18 at 21:30 Aspirin (Halfprin) 81 mg BID PO Last administered on 12/25/18at 21:40; Admin Dose 81 MG; Start 12/06/18 at 09:00 Nystatin (Nystatin Powder) 1 applic BID TOP Last administered on 12/25/18 21:43; Admin Dose 1 APPLIC; Start 12/12/18 at 21:00 Cefepime HCl 50 ml @ 100 mls/hr Q12 IVPB Last administered on 12/25/18 21:39; Admin Dose 100 MLS/HR; Start 12/13/18 at 21:00 Albuterol (Proventil 0.083% (Neb)) 2.5 mg Q2H RESP THERAPY PRN HHN SHORTNESS OF BREATH; Start 12/15/18 at 12:00 Lidocaine (Lidoderm) 1 patch DAILY TD Last administered on 12/25/18 09:32; Admin Dose 1 PATCH; Start 12/15/18 at 12:00 Acetaminophen (Tylenol Tab) 1,000 mg Q8H PRN PO pain Last administered on 12/25/18 21:57; Admin Dose 1,000 MG; Start 12/16/18 at 19:00 Alteplase, Recombinant (Cathflo (Activase)) 2 mg MAY REPEAT X1 PRN CATHETER IF CATHETER REMAINS OCCULUDED Last administered on 12/17/18 13:20; Admin Dose 2 MG; Start 12/17/18 at 08:30 Gabapentin (Neurontin) 300 mg TID PO Last administered on 12/25/18 21:40; Admin Dose 300 MG; Start 12/22/18 at 13:00 Methocarbamol (Robaxin) 750 mg Q8H PRN PO muscle spasm; Start 12/23/18 at 09:30 Daptomycin 390 mg/ Sodium Chloride 100 ml @ 200 mls/hr Q24H IVPB Last administered on 12/25/18 16:13; Admin Dose 200 MLS/HR; Start 12/23/18 at 16:30 Martin Kelley DO Dec 25, 2018 22:26
[2018-12-26] MEDS: LEVOTHYROXINE 100 MCG TAB PO SCH (06:10)
[2018-12-26] MEDS: PANTOPRAZOLE (EC) 40 MG TAB PO SCH (06:10)
[2018-12-26] MEDS: ACETAMINOPHEN 500 MG TAB PO PRN ×2 (06:11→15:57)
[2018-12-26 08:01] VITALS: BP 111/58; PULSE 72; RESP 18
[2018-12-26] MEDS: LISINOPRIL 5 MG TAB PO SCH (08:45)
[2018-12-26] MEDS: POLYETHYLENE GLYCOL 17 GM PACKET PO SCH (09:00)
[2018-12-26] MEDS: NYSTATIN 30 GM POWDER BTL TOP SCH ×2 (09:00→21:00)
[2018-12-26] MEDS: SENNA TAB PO SCH ×2 (09:00→21:00)
[2018-12-26] MEDS: VITAMIN B COMPLEX/VIT C CAP PO SCH (09:56)
[2018-12-26] MEDS: CHOLECALCIFEROL 1,000 UNIT TAB PO SCH (09:56)
[2018-12-26] MEDS: GABAPENTIN 300 MG CAP PO SCH ×3 (09:57→21:02)
[2018-12-26] MEDS: ASCORBIC ACID 500 MG TAB PO SCH ×2 (09:57→21:02)
[2018-12-26] MEDS: MULTIVITAMINS THERAPEUTIC TAB PO SCH (09:57)
[2018-12-26] MEDS: BUPROPION (XL) 150 MG TAB PO SCH (09:58)
[2018-12-26] MEDS: ASPIRIN (EC) 81 MG TAB PO SCH ×2 (09:58→21:02)
[2018-12-26] MEDS: FISH OIL 1,000 MG CAP PO SCH (09:58)
[2018-12-26] MEDS: CEFEPIME 1GM/50 ML (PMX) 50 ML IVPB SCH ×2 (09:59→21:02)
[2018-12-26] MEDS: LIDOCAINE 5% PATCH TD SCH (10:00)
--- NOTE | 2018-12-26 10:57 | CONS ---
Assessment/Plan Assessment/Plan Hospital Course (Demo Recall) No acute changes all noted Antimicrobials: Daptomycin, cefepime Microbiology: Blood culture on admission grew strep, urine culture grew E. coli, MRSA swab negative, repeat blood cultures negative. Sacral wound cx + VRE/Proteus/Strep 2D echo revealed no vegetations Physical examination: This is well-developed well-nourished elderly woman who is alert in no distress. Head atraumatic normocephalic neck is supple. Chest rise symmetrical breath sounds clear. Heart: S1-S2. Abdomen soft, bowel tones present. Extremities with right knee erythema and swelling Assessment: 1. Status post sepsis, present on admission 2. Streptococcal bacteremia 2 to #3 3. 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 Urinary tract infection==> treated 5. History of left total knee replacement 6. History of multilevel discectomy and posterior fusion from L1-L3, please see CT in the chart Plan: Remains stable, continue on current antibiotics for 5 more days, then changed to IV Rocephin, last day January 18 Consultation Date/Type/Reason Admit Date/Time Dec 01, 2018 at 19:24 Initial Consult Date Type of Consult id Date/Time of Note DATE: 12/26/18 TIME: 10:56 Exam/Review of Systems Exam Vitals Vital Signs Date Temp Pulse Resp B/P (MAP) Pulse Ox O2 O2 Flow FiO2 Time Delivery Rate 12/26/18 98.8 72 18 111/58 93 Room Air 08:01 (75) Intake and Output 12/25/18 12/25/18 12/26/18 1515:00 23:00 07:00 IntakeIntake Total 520 ml 1140 ml BalanceBalance 520 ml 1140 ml Results Result Diagram: 12/24/18 0438 12/24/18 0438 Medications Medication Current Medications Albuterol (Ventolin Hfa) 2 puff Q4H PRN INH WHEEZING AND SOB; Start 12/01/18 at 21:00; Status Hold Ascorbic Acid (Vitamin C) 500 mg BID PO Last administered on 12/26/18at 09:57; Admin Dose 500 MG; Start 12/01/18 at 21:00 Bupropion HCl (Wellbutrin Xl) 300 mg DAILY PO Last administered on 12/26/18at 09:58; Admin Dose 300 MG; Start 12/02/18 at 09:00 Cholecalciferol (Vitamin D) 1,000 unit DAILY PO Last administered on 12/26/18 09:56; Admin Dose 1,000 UNIT; Start 12/02/18 at 09:00 Diclofenac Sodium (Voltaren 1% Gel) 2 gm TID PRN TP PAIN; Start 12/01/18 at 21:00 Levothyroxine Sodium (Synthroid) 100 mcg BEFORE BREAKFAST PO Last administered on 12/26/18 06:10; Admin Dose 100 MCG; Start 12/02/18 at 07:00 Lisinopril (Zestril) 5 mg DAILY PO Last administered on 12/24/18 09:25; Admin Dose 5 MG; Start 12/02/18 at 09:00 Magnesium Hydroxide (Milk Of Mag) 30 ml DAILY PRN PO CONSTIPATION; Start 12/01/18 at 21:00 Multivitamins Therapeutic (Theragran) 1 tab DAILY PO Last administered on 12/26/18 09:57; Admin Dose 1 TAB; Start 12/02/18 at 09:00 Polyethylene Glycol (Miralax) 17 gm DAILY PO Last administered on 12/25/18 09:32; Admin Dose 17 GM; Start 12/02/18 at 09:00 Senna (Senokot) 1 tab BID PO Last administered on 12/23/18 09:22; Admin Dose 1 TAB; Start 12/01/18 at 21:00 Vitamin B Complex/ Vitamin C (Berocca) 1 cap DAILY PO Last administered on 12/26/18 09:56; Admin Dose 1 CAP; Start 12/02/18 at 09:00 Fish Oil (Fish Oil) 1,000 mg DAILY PO Last administered on 12/26/18 09:58; Admin Dose 1,000 MG; Start 12/02/18 at 09:00 Docusate Sodium (Colace) 100 mg Q12H PRN PO .CONSTIPATION; Start 12/01/18 at 22:00 Bisacodyl (Dulcolax) 5 mg DAILY PRN PO .CONSTIPATION; Start 12/01/18 at 22:00 Lidocaine (Xylocaine 1% (Mpf)) 30 ml ONCE PRN INJ aspiration ; Start 12/04/18 at 17:30 IV Flush (NS 3 ml) 3 ml PER PROTOCOL IV ; Start 12/05/18 at 21:30 Oxycodone HCl (Roxicodone) 15 mg Q4H PRN PO .PAIN Last administered on 12/23/18 11:20; Admin Dose 15 MG; Start 12/05/18 at 21:30 Oxycodone HCl (Roxicodone) 10 mg Q4H PRN PO .PAIN Last administered on 12/18/18 03:37; Admin Dose 10 MG; Start 12/05/18 at 21:30 Oxycodone HCl (Roxicodone) 5 mg Q4H PRN PO .PAIN Last administered on 12/24/18 14:07; Admin Dose 5 MG; Start 12/05/18 at 21:30 Hydromorphone HCl (Dilaudid) 1 mg Q3H PRN IV .BREAKTHROUGH PAIN Last admini stered on 12/06/18at 06:58; Admin Dose 1 MG; Start 12/05/18 at 21:30 Ondansetron HCl (Zofran Inj) 4 mg Q4H PRN IV NAUSEA/VOMITING; Start 12/06/18 at 21:30 Pantoprazole (Protonix Tab) 40 mg DAILY@06 PO Last administered on 12/26/18at 06:10; Admin Dose 40 MG; Start 12/07/18 at 06:00 Simethicone (Mylicon) 80 mg TID PRN PO .GAS; Start 12/05/18 at 21:30 Senna/Docusate Sodium (Senokot-S) 2 tab BID PRN PO .CONSTIPATION Last administered on 12/06/18 08:54; Admin Dose 2 TAB; Start 12/05/18 at 21:30 Magnesium Hydroxide (Milk Of Mag) 30 ml HS PRN PO .CONSTIPATION; Start 12/05/18 at 21:30 Bisacodyl (Dulcolax Supp) 10 mg DAILY PRN [place] .CONSTIPATION; Start 12/05/18 at 21:30 Sodium Biphosphate/ Sodium Phosphate (Fleet Enema) 133 ml DAILY PRN [place] .CONSTIPATION; Start 12/05/18 at 21:30 Diphenhydramine HCl (Benadryl) 25 mg Q4H PRN IV .ITCHING; Start 12/05/18 at 21:30 Naloxone HCl (Narcan) 0.2 mg Q2M PRN IV .RESP RATE; Start 12/05/18 at 21:30 Bethanechol Chloride (Urecholine) 25 mg URINARY CATH D/C PRN PO UNABLE TO VOID; Start 12/05/18 at 21:30 Aspirin (Halfprin) 81 mg BID PO Last administered on 12/26/18 09:58; Admin Dose 81 MG; Start 12/06/18 at 09:00 Nystatin (Nystatin Powder) 1 applic BID TOP Last administered on 12/25/18 21:43; Admin Dose 1 APPLIC; Start 12/12/18 at 21:00 Cefepime HCl 50 ml @ 100 mls/hr Q12 IVPB Last administered on 12/26/18 09:59; Admin Dose 100 MLS/HR; Start 12/13/18 at 21:00 Albuterol (Proventil 0.083% (Neb)) 2.5 mg Q2H RESP THERAPY PRN HHN SHORTNESS OF BREATH; Start 12/15/18 at 12:00 Lidocaine (Lidoderm) 1 patch DAILY TD Last administered on 12/26/18 10:00; Admin Dose 1 PATCH; Start 12/15/18 at 12:00 Acetaminophen (Tylenol Tab) 1,000 mg Q8H PRN PO pain Last administered on 12/26/18 06:11; Admin Dose 1,000 MG; Start 12/16/18 at 19:00 Alteplase, Recombinant (Cathflo (Activase)) 2 mg MAY REPEAT X1 PRN CATHETER IF CATHETER REMAINS OCCULUDED Last administered on 12/17/18 13:20; Admin Dose 2 MG; Start 12/17/18 at 08:30 Gabapentin (Neurontin) 300 mg TID PO Last administered on 12/26/18 09:57; Admin Dose 300 MG; Start 12/22/18 at 13:00 Methocarbamol (Robaxin) 750 mg Q8H PRN PO muscle spasm; Start 12/23/18 at 09:30 Daptomycin 390 mg/ Sodium Chloride 100 ml @ 200 mls/hr Q24H IVPB Last administered on 12/25/18 16:13; Admin Dose 200 MLS/HR; Start 12/23/18 at 16:30 OZZIE SOLOMON NP Dec 26, 2018 10:57
--- NOTE | 2018-12-26 13:54 | PN ---
Date/Time of Note Date/Time of Note DATE: 12/26/18 TIME: 13:52 Assessment/Plan VTE Prophylaxis Risk score (from Nsg)>0 risk: 6 SCD applied (from Nsg): Yes Pharmacological prophylaxis: other Lines/Catheters IV Catheter Type (from Nrsg): PICC Line Central line still needed: Yes Urinary Cath still in place: No Assessment/Plan Assessment/Plan 1. Septic R knee joint s/p I&D on 12/05/18 - Continues to work with PT. Frustrated that she is not getting PT as frequentl y as before. Discussed PT is usually more aggressive following surgical intervention hence the reason to get her to an accepting SNF as soon as possible. She continues to refuse facilities outside the [facility] - Ortho on board and recommendations appreciated. Continue IV antibiotics until 01/18 then will need to continue PO antibiotics for 3-6 months - pain control 2. Generalized leg weakness - Most likely secondary to deconditioning - PT on board 3. Left leg muscle spasm- stable - continue on Robaxin PRN 4. 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 Chronic spinal disease - h/o significant stenosis of her spine. Lumbar spine and thoracic spine CT show signs of stenosis though no acute fractures. 6. osteoarthritis - pain control 7. urinary tract infection- treated - Cultures growing ecoli and lactobacillus - asymptomatic 8. Strep Bacteremia - continue current antibiotics - repeat cultures negative 9. Mechanical fall 10. Disposition - CM on board and continues to await AKILAH from insurance Result Diagram: 12/24/18 0438 12/24/18 0438 Subjective 24 Hr Interval Summary Free Text/Dictation Patient is still frustrated she is inhouse. Discussed if she wants to go home she needs to talk to her son since he is her decision maker. No acute overnight events. Exam/Review of Systems Exam Vitals Vital Signs Date Temp Pulse Resp B/P (MAP) Pulse Ox O2 O2 Flow FiO2 Time Delivery Rate 12/26/18 98.8 72 18 111/58 93 Room Air 08:01 (75) Intake and Output 12/25/18 12/25/18 12/26/18 1515:00 23:00 07:00 IntakeIntake Total 520 ml 1140 ml BalanceBalance 520 ml 1140 ml Exam General: Patient is laying in bed and answers questions appropriately. Neck: Supple Respiratory: Clear to auscultation bilaterally. no wheezing Cardiovascular: regular rate and rhythm, no obvious murmurs Gastrointestinal: soft, non-tender to palpation, bowel sounds heard. Neurological: Moves all extremities spontaneously Skin: Right knee bandage in place, CDI at surgical site Medications Medication Current Medications Albuterol (Ventolin Hfa) 2 puff Q4H PRN INH WHEEZING AND SOB; Start 12/01/18 at 21:00; Status Hold Ascorbic Acid (Vitamin C) 500 mg BID PO Last administered on 12/26/18 09:57; Admin Dose 500 MG; Start 12/01/18 at 21:00 Bupropion HCl (Wellbutrin Xl) 300 mg DAILY PO Last administered on 12/26/18 09:58; Admin Dose 300 MG; Start 12/02/18 at 09:00 Cholecalciferol (Vitamin D) 1,000 unit DAILY PO Last administered on 12/26/18 09:56; Admin Dose 1,000 UNIT; Start 12/02/18 at 09:00 Diclofenac Sodium (Voltaren 1% Gel) 2 gm TID PRN TP PAIN; Start 12/01/18 at 21:00 Levothyroxine Sodium (Synthroid) 100 mcg BEFORE BREAKFAST PO Last administered on 12/26/18 06:10; Admin Dose 100 MCG; Start 12/02/18 at 07:00 Lisinopril (Zestril) 5 mg DAILY PO Last administered on 12/24/18 09:25; Admin Dose 5 MG; Start 12/02/18 at 09:00 Magnesium Hydroxide (Milk Of Mag) 30 ml DAILY PRN PO CONSTIPATION; Start 12/01/18 at 21:00 Multivitamins Therapeutic (Theragran) 1 tab DAILY PO Last administered on 12/26/18 09:57; Admin Dose 1 TAB; Start 12/02/18 at 09:00 Polyethylene Glycol (Miralax) 17 gm DAILY PO Last administered on 12/25/18 09:32; Admin Dose 17 GM; Start 12/02/18 at 09:00 Senna (Senokot) 1 tab BID PO Last administered on 12/23/18 09:22; Admin Dose 1 TAB; Start 12/01/18 at 21:00 Vitamin B Complex/ Vitamin C (Berocca) 1 cap DAILY PO Last administered on 12/26/18 09:56; Admin Dose 1 CAP; Start 12/02/18 at 09:00 Fish Oil (Fish Oil) 1,000 mg DAILY PO Last administered on 12/26/18 09:58; Admin Dose 1,000 MG; Start 12/02/18 at 09:00 Docusate Sodium (Colace) 100 mg Q12H PRN PO .CONSTIPATION; Start 12/01/18 at 22:00 Bisacodyl (Dulcolax) 5 mg DAILY PRN PO .CONSTIPATION; Start 12/01/18 at 22:00 Lidocaine (Xylocaine 1% (Mpf)) 30 ml ONCE PRN INJ aspiration ; Start 12/04/18 at 17:30 IV Flush (NS 3 ml) 3 ml PER PROTOCOL IV ; Start 12/05/18 at 21:30 Oxycodone HCl (Roxicodone) 15 mg Q4H PRN PO .PAIN Last administered on 12/23/18 11:20; Admin Dose 15 MG; Start 12/05/18 at 21:30 Oxycodone HCl (Roxicodone) 10 mg Q4H PRN PO .PAIN Last administered on 12/18/18 03:37; Admin Dose 10 MG; Start 12/05/18 at 21:30 Oxycodone HCl (Roxicodone) 5 mg Q4H PRN PO .PAIN Last administered on 12/24/18 14:07; Admin Dose 5 MG; Start 12/05/18 at 21:30 Hydromorphone HCl (Dilaudid) 1 mg Q3H PRN IV .BREAKTHROUGH PAIN Last administered on 12/06/18 06:58; Admin Dose 1 MG; Start 12/05/18 at 21:30 Ondansetron HCl (Zofran Inj) 4 mg Q4H PRN IV NAUSEA/VOMITING; Start 12/06/18 at 21:30 Pantoprazole (Protonix Tab) 40 mg DAILY@06 PO Last administered on 12/26/18 06:10; Admin Dose 40 MG; Start 12/07/18 at 06:00 Simethicone (Mylicon) 80 mg TID PRN PO .GAS; Start 12/05/18 at 21:30 Senna/Docusate Sodium (Senokot-S) 2 tab BID PRN PO .CONSTIPATION Last administered on 12/06/18 08:54; Admin Dose 2 TAB; Start 12/05/18 at 21:30 Magnesium Hydroxide (Milk Of Mag) 30 ml HS PRN PO .CONSTIPATION; Start 12/05/18 at 21:30 Bisacodyl (Dulcolax Supp) 10 mg DAILY PRN [place] .CONSTIPATION; Start 12/05/18 at 21:30 Sodium Biphosphate/ Sodium Phosphate (Fleet Enema) 133 ml DAILY PRN [place] .CONSTIPATION; Start 12/05/18 at 21:30 Diphenhydramine HCl (Benadryl) 25 mg Q4H PRN IV .ITCHING; Start 12/05/18 at 21:30 Naloxone HCl (Narcan) 0.2 mg Q2M PRN IV .RESP RATE; Start 12/05/18 at 21:30 Bethanechol Chloride (Urecholine) 25 mg URINARY CATH D/C PRN PO UNABLE TO VOID; Start 12/05/18 at 21:30 Aspirin (Halfprin) 81 mg BID PO Last administered on 12/26/18at 09:58; Admin Dose 81 MG; Start 12/06/18 at 09:00 Nystatin (Nystatin Powder) 1 applic BID TOP Last administered on 12/25/18 21:43; Admin Dose 1 APPLIC; Start 12/12/18 at 21:00 Cefepime HCl 50 ml @ 100 mls/hr Q12 IVPB Last administered on 12/26/18 09:59; Admin Dose 100 MLS/HR; Start 12/13/18 at 21:00 Albuterol (Proventil 0.083% (Neb)) 2.5 mg Q2H RESP THERAPY PRN HHN SHORTNESS OF BREATH; Start 12/15/18 at 12:00 Lidocaine (Lidoderm) 1 patch DAILY TD Last administered on 12/26/18at 10:00; Admin Dose 1 PATCH; Start 12/15/18 at 12:00 Acetaminophen (Tylenol Tab) 1,000 mg Q8H PRN PO pain Last administered on 12/26/18 06:11; Admin Dose 1,000 MG; Start 12/16/18 at 19:00 Alteplase, Recombinant (Cathflo (Activase)) 2 mg MAY REPEAT X1 PRN CATHETER IF CATHETER REMAINS OCCULUDED Last administered on 12/17/18 13:20; Admin Dose 2 MG; Start 12/17/18 at 08:30 Gabapentin (Neurontin) 300 mg TID PO Last administered on 12/26/18at 09:57; Admin Dose 300 MG; Start 12/22/18 at 13:00 Methocarbamol (Robaxin) 750 mg Q8H PRN PO muscle spasm; Start 12/23/18 at 09:30 Daptomycin 390 mg/ Sodium Chloride 100 ml @ 200 mls/hr Q24H IVPB Last administered on 12/25/18at 16:13; Admin Dose 200 MLS/HR; Start 12/23/18 at 16:30 BALATZAR BARAJAS MD Dec 26, 2018 13:54
[2018-12-26 14:24] VITALS: BP 112/59; PULSE 76; RESP 18
[2018-12-26] MEDS: DAPTOMYCIN 390 MG in SOD CHLORIDE 0.9% 100 ML IVPB SCH (16:06)
[2018-12-26 20:30] VITALS: BP 111/59; PULSE 80; RESP 19
[2018-12-26] MEDS: oxyCODONE 5 MG TAB PO PRN (23:02)
[2018-12-27] MEDS: ACETAMINOPHEN 500 MG TAB PO PRN ×2 (00:02→20:09)
[2018-12-27 02:20] VITALS: BP 112/58; PULSE 77; RESP 18
[2018-12-27] MEDS: PANTOPRAZOLE (EC) 40 MG TAB PO SCH (05:38)
[2018-12-27] MEDS: LEVOTHYROXINE 100 MCG TAB PO SCH (06:36)
[2018-12-27 07:44] VITALS: BP 114/60; PULSE 78; RESP 18
[2018-12-27] MEDS: CHOLECALCIFEROL 1,000 UNIT TAB PO SCH (09:12)
[2018-12-27] MEDS: MULTIVITAMINS THERAPEUTIC TAB PO SCH (09:13)
[2018-12-27] MEDS: FISH OIL 1,000 MG CAP PO SCH (09:13)
[2018-12-27] MEDS: GABAPENTIN 300 MG CAP PO SCH ×3 (09:13→20:08)
[2018-12-27] MEDS: VITAMIN B COMPLEX/VIT C CAP PO SCH (09:13)
[2018-12-27] MEDS: SENNA TAB PO SCH ×2 (09:14→20:08)
[2018-12-27] MEDS: LIDOCAINE 5% PATCH TD SCH (09:14)
[2018-12-27] MEDS: POLYETHYLENE GLYCOL 17 GM PACKET PO SCH (09:14)
[2018-12-27] MEDS: ASPIRIN (EC) 81 MG TAB PO SCH ×2 (09:14→20:08)
[2018-12-27] MEDS: ASCORBIC ACID 500 MG TAB PO SCH ×2 (09:14→20:08)
[2018-12-27] MEDS: LISINOPRIL 5 MG TAB PO SCH (09:15)
[2018-12-27] MEDS: CEFEPIME 1GM/50 ML (PMX) 50 ML IVPB SCH ×2 (09:15→20:09)
[2018-12-27] MEDS: NYSTATIN 30 GM POWDER BTL TOP SCH ×2 (09:22→20:09)
[2018-12-27] MEDS: BUPROPION (XL) 150 MG TAB PO SCH (10:08)
--- NOTE | 2018-12-27 13:42 | CONS ---
Assessment/Plan Assessment/Plan Hospital Course (Demo Recall) Sitting up in a chair looks comfortable, no fevers overnight Antimicrobials: Daptomycin, cefepime Microbiology: Blood culture on admission grew strep, urine culture grew E. coli, MRSA swab negative, repeat blood cultures negative. Sacral wound cx + VRE/Proteus/Strep 2D echo revealed no vegetations Physical examination: This is well-developed well-nourished elderly woman who is alert in no distress. Head atraumatic normocephalic neck is supple. Chest rise symmetrical breath sounds clear. Heart: S1-S2. Abdomen soft, bowel tones present. Extremities with right knee erythema and swelling Assessment: 1. Status post sepsis, present on admission 2. Streptococcal bacteremia 2 to #3 3. 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 Urinary tract infection==> treated 5. History of left total knee replacement 6. History of multilevel discectomy and posterior fusion from L1-L3, please see CT in the chart Plan: Remains stable, continue on current antibiotics for 4 more days, then changed to IV Rocephin, last day January 18 Consultation Date/Type/Reason Admit Date/Time Dec 01, 2018 at 19:24 Initial Consult Date Type of Consult id Date/Time of Note DATE: 12/27/18 TIME: 13:42 Exam/Review of Systems Exam Vitals Vital Signs Date Temp Pulse Resp B/P (MAP) Pulse Ox O2 O2 Flow FiO2 Time Delivery Rate 12/27/18 97.8 78 18 114/60 92 Room Air 07:44 (78) Intake and Output 12/26/18 12/26/18 12/27/18 1515:00 23:00 07:00 IntakeIntake Total 720 ml 840 ml OutputOutput Total 200 ml 450 ml BalanceBalance 520 ml 390 ml Results Result Diagram: 12/24/18 0438 12/24/18 0438 Medications Medication Current Medications Albuterol (Ventolin Hfa) 2 puff Q4H PRN INH WHEEZING AND SOB; Start 12/01/18 at 21:00; Status Hold Ascorbic Acid (Vitamin C) 500 mg BID PO Last administered on 12/27/18at 09:14; Admin Dose 500 MG; Start 12/01/18 at 21:00 Bupropion HCl (Wellbutrin Xl) 300 mg DAILY PO Last administered on 12/27/18 10:08; Admin Dose 300 MG; Start 12/02/18 at 09:00 Cholecalciferol (Vitamin D) 1,000 unit DAILY PO Last administered on 12/27/18 09:12; Admin Dose 1,000 UNIT; Start 12/02/18 at 09:00 Diclofenac Sodium (Voltaren 1% Gel) 2 gm TID PRN TP PAIN; Start 12/01/18 at 21:00 Levothyroxine Sodium (Synthroid) 100 mcg BEFORE BREAKFAST PO Last administered on 12/27/18 06:36; Admin Dose 100 MCG; Start 12/02/18 at 07:00 Lisinopril (Zestril) 5 mg DAILY PO Last administered on 12/27/18 09:15; Admin Dose 5 MG; Start 12/02/18 at 09:00 Magnesium Hydroxide (Milk Of Mag) 30 ml DAILY PRN PO CONSTIPATION; Start 12/01/18 at 21:00 Multivitamins Therapeutic (Theragran) 1 tab DAILY PO Last administered on 12/27/18 09:13; Admin Dose 1 TAB; Start 12/02/18 at 09:00 Polyethylene Glycol (Miralax) 17 gm DAILY PO Last administered on 12/27/18 09:14; Admin Dose 17 GM; Start 12/02/18 at 09:00 Senna (Senokot) 1 tab BID PO Last administered on 12/27/18 09:14; Admin Dose 1 TAB; Start 12/01/18 at 21:00 Vitamin B Complex/ Vitamin C (Berocca) 1 cap DAILY PO Last administered on 09:13; Admin Dose 1 CAP; Start 12/02/18 at 09:00 Fish Oil (Fish Oil) 1,000 mg DAILY PO Last administered on 12/27/18 09:13; Admin Dose 1,000 MG; Start 12/02/18 at 09:00 Docusate Sodium (Colace) 100 mg Q12H PRN PO .CONSTIPATION; Start 12/01/18 at 22:00 Bisacodyl (Dulcolax) 5 mg DAILY PRN PO .CONSTIPATION; Start 12/01/18 at 22:00 Lidocaine (Xylocaine 1% (Mpf)) 30 ml ONCE PRN INJ aspiration ; Start 12/04/18 at 17:30 IV Flush (NS 3 ml) 3 ml PER PROTOCOL IV ; Start 12/05/18 at 21:30 Oxycodone HCl (Roxicodone) 15 mg Q4H PRN PO .PAIN Last administered on 12/23/18 11:20; Admin Dose 15 MG; Start 12/05/18 at 21:30 Oxycodone HCl (Roxicodone) 10 mg Q4H PRN PO .PAIN Last administered on 03:37; Admin Dose 10 MG; Start 12/05/18 at 21:30 Oxycodone HCl (Roxicodone) 5 mg Q4H PRN PO .PAIN Last administered on 12/26/18 23:02; Admin Dose 5 MG; Start 12/05/18 at 21:30 Hydromorphone HCl (Dilaudid) 1 mg Q3H PRN IV .BREAKTHROUGH PAIN Last administered on 12/06/18 06:58; Admin Dose 1 MG; Start 12/05/18 at 21:30 Ondansetron HCl (Zofran Inj) 4 mg Q4H PRN IV NAUSEA/VOMITING; Start 12/06/18 at 21:30 Pantoprazole (Protonix Tab) 40 mg DAILY@06 PO Last administered on 12/27/18 05:38; Admin Dose 40 MG; Start 12/07/18 at 06:00 Simethicone (Mylicon) 80 mg TID PRN PO .GAS; Start 12/05/18 at 21:30 Senna/Docusate Sodium (Senokot-S) 2 tab BID PRN PO .CONSTIPATION Last administered on 12/06/18 08:54; Admin Dose 2 TAB; Start 12/05/18 at 21:30 Magnesium Hydroxide (Milk Of Mag) 30 ml HS PRN PO .CONSTIPATION; Start 12/05/18 at 21:30 Bisacodyl (Dulcolax Supp) 10 mg DAILY PRN [place] .CONSTIPATION; Start 12/05/18 at 21:30 Sodium Biphosphate/ Sodium Phosphate (Fleet Enema) 133 ml DAILY PRN [place] .CONSTIPATION; Start 12/05/18 at 21:30 Diphenhydramine HCl (Benadryl) 25 mg Q4H PRN IV .ITCHING; Start 12/05/18 at 21:30 Naloxone HCl (Narcan) 0.2 mg Q2M PRN IV .RESP RATE; Start 12/05/18 at 21:30 Bethanechol Chloride (Urecholine) 25 mg URINARY CATH D/C PRN PO UNABLE TO VOID; Start 12/05/18 at 21:30 Aspirin (Halfprin) 81 mg BID PO Last administered on 12/27/18 09:14; Admin Dose 81 MG; Start 12/06/18 at 09:00 Nystatin (Nystatin Powder) 1 applic BID TOP Last administered on 12/27/18 09 :22; Admin Dose 1 APPLIC; Start 12/12/18 at 21:00 Cefepime HCl 50 ml @ 100 mls/hr Q12 IVPB Last administered on 12/27/18 09:15; Admin Dose 100 MLS/HR; Start 12/13/18 at 21:00 Albuterol (Proventil 0.083% (Neb)) 2.5 mg Q2H RESP THERAPY PRN HHN SHORTNESS OF BREATH; Start 12/15/18 at 12:00 Lidocaine (Lidoderm) 1 patch DAILY TD Last administered on 12/27/18 09:14; Admin Dose 1 PATCH; Start 12/15/18 at 12:00 Acetaminophen (Tylenol Tab) 1,000 mg Q8H PRN PO pain Last administered on 12/27/18 00:02; Admin Dose 1,000 MG; Start 12/16/18 at 19:00 Alteplase, Recombinant (Cathflo (Activase)) 2 mg MAY REPEAT X1 PRN CATHETER IF CATHETER REMAINS OCCULUDED Last administered on 12/17/18 13:20; Admin Dose 2 MG; Start 12/17/18 at 08:30 Gabapentin (Neurontin) 300 mg TID PO Last administered on 12/27/18 12:44; Admin Dose 300 MG; Start 12/22/18 at 13:00 Methocarbamol (Robaxin) 750 mg Q8H PRN PO muscle spasm; Start 12/23/18 at 09:30 Daptomycin 390 mg/ Sodium Chloride 100 ml @ 200 mls/hr Q24H IVPB Last a dministered on 12/26/18 16:06; Admin Dose 200 MLS/HR; Start 12/23/18 at 16:30 OZZIE SOLOMON NP Dec 27, 2018 13:42
[2018-12-27 14:00] VITALS: BP 116/62; PULSE 74; RESP 18
--- NOTE | 2018-12-27 14:41 | PN ---
Date/Time of Note Date/Time of Note DATE: 12/27/18 TIME: 14:39 Assessment/Plan VTE Prophylaxis Risk score (from Nsg)>0 risk: 3 SCD applied (from Nsg): Yes Pharmacological prophylaxis: other Lines/Catheters IV Catheter Type (from Nrsg): PICC Line Central line still needed: Yes Urinary Cath still in place: No Assessment/Plan Assessment/Plan 1. Septic R knee joint s/p I&D on 12/05/18 - incision healing well without any discharge or drainage - Continues to work with PT. - Ortho on board and recommendations appreciated. Continue IV antibiotics until 01/18 then will need to continue PO antibiotics for 3-6 months - pain control 2. Generalized leg weakness - Most likely secondary to deconditioning - PT on board 3. Left leg muscle spasm- stable - continue on Robaxin PRN 4. 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 Chronic spinal disease - h/o significant stenosis of her spine. Lumbar spine and thoracic spine CT show signs of stenosis though no acute fractures. 6. osteoarthritis - pain control 7. urinary tract infection- treated - Cultures growing ecoli and lactobacillus - asymptomatic 8. Strep Bacteremia - continue current antibiotics - repeat cultures negative 9. Mechanical fall 10. Disposition - CM on board and continued to await AKILAH from insurance for SNF placement Result Diagram: 12/24/18 0438 12/24/18 0438 Subjective 24 Hr Interval Summary Free Text/Dictation Patient complaining of some back pain this am and fatigue. States worked with PT yesterday twice and tolerated. No acute overnight events. Exam/Review of Systems Exam Vitals Vital Signs Date Temp Pulse Resp B/P (MAP) Pulse Ox O2 O2 Flow FiO2 Time Delivery Rate 12/27/18 97.8 78 18 114/60 92 Room Air 07:44 (78) Intake and Output 12/26/18 12/26/18 12/27/18 1515:00 23:00 07:00 IntakeIntake Total 720 ml 840 ml OutputOutput Total 200 ml 450 ml BalanceBalance 520 ml 390 ml Exam General: Patient is laying in bed and answers questions appropriately. Neck: Supple Respiratory: Clear to auscultation bilaterally. no wheezing Cardiovascular: regular rate and rhythm, no obvious murmurs Gastrointestinal: soft, non-tender to palpation, bowel sounds heard. Neurological: Moves all extremities spontaneously Skin: Right surgical incision well healed, no discharge or drainage Medications Medication Current Medications Albuterol (Ventolin Hfa) 2 puff Q4H PRN INH WHEEZING AND SOB; Start 12/01/18 at 21:00; Status Hold Ascorbic Acid (Vitamin C) 500 mg BID PO Last administered on 12/27/18 09:14; Admin Dose 500 MG; Start 12/01/18 at 21:00 Bupropion HCl (Wellbutrin Xl) 300 mg DAILY PO Last administered on 12/27/18 10:08; Admin Dose 300 MG; Start 12/02/18 at 09:00 Cholecalciferol (Vitamin D) 1,000 unit DAILY PO Last administered on 12/27/18 09:12; Admin Dose 1,000 UNIT; Start 12/02/18 at 09:00 Diclofenac Sodium (Voltaren 1% Gel) 2 gm TID PRN TP PAIN; Start 12/01/18 at 21:00 Levothyroxine Sodium (Synthroid) 100 mcg BEFORE BREAKFAST PO Last administered on 12/27/18 06:36; Admin Dose 100 MCG; Start 12/02/18 at 07:00 Lisinopril (Zestril) 5 mg DAILY PO Last administered on 12/27/18 09:15; Admin Dose 5 MG; Start 12/02/18 at 09:00 Magnesium Hydroxide (Milk Of Mag) 30 ml DAILY PRN PO CONSTIPATION; Start 12/01/18 at 21:00 Multivitamins Therapeutic (Theragran) 1 tab DAILY PO Last administered on 12/27/18 09:13; Admin Dose 1 TAB; Start 12/02/18 at 09:00 Polyethylene Glycol (Miralax) 17 gm DAILY PO Last administered on 12/27/18 09:14; Admin Dose 17 GM; Start 12/02/18 at 09:00 Senna (Senokot) 1 tab BID PO Last administered on 12/27/18 09:14; Admin Dose 1 TAB; Start 12/01/18 at 21:00 Vitamin B Complex/ Vitamin C (Berocca) 1 cap DAILY PO Last administered on 12/27/18 09:13; Admin Dose 1 CAP; Start 12/02/18 at 09:00 Fish Oil (Fish Oil) 1,000 mg DAILY PO Last administered on 12/27/18 09:13; Admin Dose 1,000 MG; Start 12/02/18 at 09:00 Docusate Sodium (Colace) 100 mg Q12H PRN PO .CONSTIPATION; Start 12/01/18 at 22:00 Bisacodyl (Dulcolax) 5 mg DAILY PRN PO .CONSTIPATION; Start 12/01/18 at 22:00 Lidocaine (Xylocaine 1% (Mpf)) 30 ml ONCE PRN INJ aspiration ; Start 12/04/18 at 17:30 IV Flush (NS 3 ml) 3 ml PER PROTOCOL IV ; Start 12/05/18 at 21:30 Oxycodone HCl (Roxicodone) 15 mg Q4H PRN PO .PAIN Last administered on 12/23/18 11:20; Admin Dose 15 MG; Start 12/05/18 at 21:30 Oxycodone HCl (Roxicodone) 10 mg Q4H PRN PO .PAIN Last administered on 12/18/18 03:37; Admin Dose 10 MG; Start 12/05/18 at 21:30 Oxycodone HCl (Roxicodone) 5 mg Q4H PRN PO .PAIN Last administered on 12/26/18 23:02; Admin Dose 5 MG; Start 12/05/18 at 21:30 Hydromorphone HCl (Dilaudid) 1 mg Q3H PRN IV .BREAKTHROUGH PAIN Last administered on 12/06/18 06:58; Admin Dose 1 MG; Start 12/05/18 at 21:30 Ondansetron HCl (Zofran Inj) 4 mg Q4H PRN IV NAUSEA/VOMITING; Start 12/06/18 at 21:30 Pantoprazole (Protonix Tab) 40 mg DAILY@06 PO Last administered on 12/27/18 05:38; Admin Dose 40 MG; Start 12/07/18 at 06:00 Simethicone (Mylicon) 80 mg TID PRN PO .GAS; Start 12/05/18 at 21:30 Senna/Docusate Sodium (Senokot-S) 2 tab BID PRN PO .CONSTIPATION Last administered on 12/06/18 08:54; Admin Dose 2 TAB; Start 12/05/18 at 21:30 Magnesium Hydroxide (Milk Of Mag) 30 ml HS PRN PO .CONSTIPATION; Start 12/05/18 at 21:30 Bisacodyl (Dulcolax Supp) 10 mg DAILY PRN [place] .CONSTIPATION; Start 12/05/18 at 21:30 Sodium Biphosphate/ Sodium Phosphate (Fleet Enema) 133 ml DAILY PRN [place] .CONSTIPATION; Start 12/05/18 at 21:30 Diphenhydramine HCl (Benadryl) 25 mg Q4H PRN IV .ITCHING; Start 12/05/18 at 21:30 Naloxone HCl (Narcan) 0.2 mg Q2M PRN IV .RESP RATE; Start 12/05/18 at 21:30 Bethanechol Chloride (Urecholine) 25 mg URINARY CATH D/C PRN PO UNABLE TO VOID; Start 12/05/18 at 21:30 Aspirin (Halfprin) 81 mg BID PO Last administered on 12/27/18 09:14; Admin Dose 81 MG; Start 12/06/18 at 09:00 Nystatin (Nystatin Powder) 1 applic BID TOP Last administered on 12/27/18 09:22; Admin Dose 1 APPLIC; Start 12/12/18 at 21:00 Cefepime HCl 50 ml @ 100 mls/hr Q12 IVPB Last administered on 12/27/18 09:15; Admin Dose 100 MLS/HR; Start 12/13/18 at 21:00 Albuterol (Proventil 0.083% (Neb)) 2.5 mg Q2H RESP THERAPY PRN HHN SHORTNESS OF BREATH; Start 12/15/18 at 12:00 Lidocaine (Lidoderm) 1 patch DAILY TD Last administered on 12/27/18 09:14; Admin Dose 1 PATCH; Start 12/15/18 at 12:00 Acetaminophen (Tylenol Tab) 1,000 mg Q8H PRN PO pain Last administered on 12/27/18 00:02; Admin Dose 1,000 MG; Start 12/16/18 at 19:00 Alteplase, Recombinant (Cathflo (Activase)) 2 mg MAY REPEAT X1 PRN CATHETER IF CATHETER REMAINS OCCULUDED Last administered on 12/17/18 13:20; Admin Dose 2 MG; Start 12/17/18 at 08:30 Gabapentin (Neurontin) 300 mg TID PO Last administered on 4/19/19at 12:44; Admin Dose 300 MG; Start 12/22/18 at 13:00 Methocarbamol (Robaxin) 750 mg Q8H PRN PO muscle spasm; Start 12/23/18 at 09:30 Daptomycin 390 mg/ Sodium Chloride 100 ml @ 200 mls/hr Q24H IVPB Last administered on 12/26/18at 16:06; Admin Dose 200 MLS/HR; Start 12/23/18 at 16:30 BALTAZAR BARAJAS MD Dec 27, 2018 14:41
[2018-12-27] MEDS: DAPTOMYCIN 390 MG in SOD CHLORIDE 0.9% 100 ML IVPB SCH (16:56)
[2018-12-27 19:49] VITALS: BP 130/80; PULSE 86; RESP 18
[2018-12-27 22:15] VITALS: BP 122/62; PULSE 68; RESP 18
[2018-12-27] MEDS ORDERED: SOD CHLORIDE 0.9% 650 ML IV ONE (22:30)
[2018-12-28 00:58] VITALS: BP 118/80; PULSE 78; RESP 18
[2018-12-28 02:30] VITALS: BP 128/65; PULSE 74; RESP 18
[2018-12-28] MEDS: PANTOPRAZOLE (EC) 40 MG TAB PO SCH (05:49)
[2018-12-28] MEDS: LEVOTHYROXINE 100 MCG TAB PO SCH (05:49)
[2018-12-28 07:43] VITALS: BP 119/56; PULSE 78; RESP 16
[2018-12-28] MEDS: ACETAMINOPHEN 500 MG TAB PO PRN ×4 (07:53→21:23)
[2018-12-28] MEDS: FISH OIL 1,000 MG CAP PO SCH (08:22)
[2018-12-28] MEDS: CEFEPIME 1GM/50 ML (PMX) 50 ML IVPB SCH (08:22)
[2018-12-28] MEDS: ASCORBIC ACID 500 MG TAB PO SCH ×2 (08:22→20:11)
[2018-12-28] MEDS: VITAMIN B COMPLEX/VIT C CAP PO SCH (08:22)
[2018-12-28] MEDS: CHOLECALCIFEROL 1,000 UNIT TAB PO SCH (08:22)
[2018-12-28] MEDS: MULTIVITAMINS THERAPEUTIC TAB PO SCH (08:22)
[2018-12-28] MEDS: ASPIRIN (EC) 81 MG TAB PO SCH ×2 (08:22→20:11)
[2018-12-28] MEDS: GABAPENTIN 300 MG CAP PO SCH ×3 (08:22→20:10)
[2018-12-28] MEDS: LISINOPRIL 5 MG TAB PO SCH (08:23)
[2018-12-28] MEDS: BUPROPION (XL) 150 MG TAB PO SCH (08:23)
[2018-12-28] MEDS: LIDOCAINE 5% PATCH TD SCH (08:24)
[2018-12-28] MEDS: SENNA TAB PO SCH ×2 (09:00→20:11)
[2018-12-28] MEDS: POLYETHYLENE GLYCOL 17 GM PACKET PO SCH (09:00)
--- NOTE | 2018-12-28 10:06 | PN ---
Date/Time of Note Date/Time of Note DATE: 12/28/18 TIME: 10:01 Assessment/Plan VTE Prophylaxis Risk score (from Nsg)>0 risk: 2 SCD applied (from Nsg): Yes Pharmacological prophylaxis: other Lines/Catheters IV Catheter Type (from Nrsg): PICC Line Central line still needed: Yes Urinary Cath still in place: No Assessment/Plan Assessment/Plan 1. Septic R knee joint s/p I&D on 12/05/18- resolving - remains stable and incision site clean and dry - Continues to work with PT. - Ortho on board and recommendations appreciated. Continue IV antibiotics until 01/18 then will need to continue PO antibiotics for 3-6 months - pain control 2. Generalized leg weakness - Most likely secondary to deconditioning - PT on board 3. Left leg muscle spasm - Robaxin TID 4. 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 Per nursing, wound has minimal discharge but with foul smell. Will reculture during next dressing change - Will touch base with ID regarding need to change antibiotics in setting of fever 5. Chronic spinal disease - h/o significant stenosis of her spine. Lumbar spine and thoracic spine CT show signs of stenosis though no acute fractures. - continue lidocaine patch 6. osteoarthritis - pain control 7. urinary tract infection- treated - Cultures growing ecoli and lactobacillus - asymptomatic 8. Strep Bacteremia - continue current antibiotics - repeat cultures negative 9. Mechanical fall 10. Disposition - Will reculture sacral wound given new fever. Repeat blood cultures obtained - CM on board for placement Result Diagram: 12/27/18202912/28/18 0512 Results 24hrs Laboratory Tests Test 12/27/18 20:30 12/28/18 05:12 White Blood Count 12.1 #H Red Blood Count 3.59 L Hemoglobin 9.3 L Hematocrit 30.4 L Mean Corpuscular Volume 84.7 Mean Corpuscular Hemoglobin 25.9 L Mean Corpuscular Hemoglobin Concent 30.6 L Red Cell Distribution Width 17.5 H Platelet Count 326 Mean Platelet Volume 10.0 Immature Granulocytes % 0.400 Neutrophils % 78.1 H Lymphocytes % 9.2 L Monocytes % 11.2 H Eosinophils % 0.5 Basophils % 0.6 Nucleated Red Blood Cells % 0.0 Immature Granulocytes # 0.050 H Neutrophils # 9.5 H Lymphocytes # 1.1 Monocytes # 1.4 H Eosinophils # 0.1 Basophils # 0.1 Nucleated Red Blood Cells # 0.0 Lactic Acid Level 2.0 1.0 Blood Urea Nitrogen 20 Creatinine 0.46 Subjective 24 Hr Interval Summary Free Text/Dictation Patient is complaining of diaphoresis. Noted with high fever yesterday and 101 this am. Denies any cough, shortness of breath, calf tenderness, knee pain, urinary issues, or dizziness. Exam/Review of Systems Exam Vitals Vital Signs Date Temp Pulse Resp B/P (MAP) Pulse Ox O2 O2 Flow FiO2 Time Delivery Rate 12/28/18 101.1 07:53 12/28/18 78 16 119/56 100 Room Air 07:43 (77) Intake and Output 12/27/18 12/27/18 12/28/18 1414:59 22:59 06:59 IntakeIntake Total 970 ml 670 ml 900 ml OutputOutput Total 500 ml 550 ml 200 ml BalanceBalance 470 ml 120 ml 700 ml Exam General: Patient is laying in bed and answers questions appropriately. Neck: Supple Respiratory: Clear to auscultation bilaterally. no wheezing Cardiovascular: regular rate and rhythm, no obvious murmurs Gastrointestinal: soft, non-tender to palpation, bowel sounds heard. Ext: Moves all extremities spontaneously. no edema, cyanosis, or clubbing Skin: diaphoretic, Right surgical incision well healed, no discharge or drainage Results Results 24hrs Laboratory Tests Test 12/27/18 20:30 12/28/18 05:12 White Blood Count 12.1 #H Red Blood Count 3.59 L Hemoglobin 9.3 L Hematocrit 30.4 L Mean Corpuscular Volume 84.7 Mean Corpuscular Hemoglobin 25.9 L Mean Corpuscular Hemoglobin Concent 30.6 L Red Cell Distribution Width 17.5 H Platelet Count 326 Mean Platelet Volume 10.0 Immature Granulocytes % 0.400 Neutrophils % 78.1 H Lymphocytes % 9.2 L Monocytes % 11.2 H Eosinophils % 0.5 Basophils % 0.6 Nucleated Red Blood Cells % 0.0 Immature Granulocytes # 0.050 H Neutrophils # 9.5 H Lymphocytes # 1.1 Monocytes # 1.4 H Eosinophils # 0.1 Basophils # 0.1 Nucleated Red Blood Cells # 0.0 Lactic Acid Level 2.0 1.0 Blood Urea Nitrogen 20 Creatinine 0.46 Medications Medication Current Medications Albuterol (Ventolin Hfa) 2 puff Q4H PRN INH WHEEZING AND SOB; Start 12/01/18 at 21:00; Status Hold Ascorbic Acid (Vitamin C) 500 mg BID PO Last administered on 12/28/18 08:22; Admin Dose 500 MG; Start 12/01/18 at 21:00 Bupropion HCl (Wellbutrin Xl) 300 mg DAILY PO Last administered on 12/28/18 0 8:23; Admin Dose 300 MG; Start 12/02/18 at 09:00 Cholecalciferol (Vitamin D) 1,000 unit DAILY PO Last administered on 12/28/18 08:22; Admin Dose 1,000 UNIT; Start 12/02/18 at 09:00 Diclofenac Sodium (Voltaren 1% Gel) 2 gm TID PRN TP PAIN; Start 12/01/18 at 21:00 Levothyroxine Sodium (Synthroid) 100 mcg BEFORE BREAKFAST PO Last administered on 12/28/18 05:49; Admin Dose 100 MCG; Start 12/02/18 at 07:00 Lisinopril (Zestril) 5 mg DAILY PO Last administered on 12/28/18 08:23; Admin Dose 5 MG; Start 12/02/18 at 09:00 Magnesium Hydroxide (Milk Of Mag) 30 ml DAILY PRN PO CONSTIPATION; Start 12/01/18 at 21:00 Multivitamins Therapeutic (Theragran) 1 tab DAILY PO Last administered on 12/28/18 08:22; Admin Dose 1 TAB; Start 12/02/18 at 09:00 Polyethylene Glycol (Miralax) 17 gm DAILY PO Last administered on 12/27/18 09:14; Admin Dose 17 GM; Start 12/02/18 at 09:00 Senna (Senokot) 1 tab BID PO Last administered on 12/27/18 20:08; Admin Dose 1 TAB; Start 12/01/18 at 21:00 Vitamin B Complex/ Vitamin C (Berocca) 1 cap DAILY PO Last administered on 12/28/18 08:22; Admin Dose 1 CAP; Start 12/02/18 at 09:00 Fish Oil (Fish Oil) 1,000 mg DAILY PO Last administered on 12/28/18 08:22; Admin Dose 1,000 MG; Start 12/02/18 at 09:00 Docusate Sodium (Colace) 100 mg Q12H PRN PO .CONSTIPATION; Start 12/01/18 at 22:00 Bisacodyl (Dulcolax) 5 mg DAILY PRN PO .CONSTIPATION; Start 12/01/18 at 22:00 Lidocaine (Xylocaine 1% (Mpf)) 30 ml ONCE PRN INJ aspiration ; Start 12/04/18 at 17:30 IV Flush (NS 3 ml) 3 ml PER PROTOCOL IV ; Start 12/05/18 at 21:30 Oxycodone HCl (Roxicodone) 15 mg Q4H PRN PO .PAIN Last administered on 12/23/18 11:20; Admin Dose 15 MG; Start 12/05/18 at 21:30 Oxycodone HCl (Roxicodone) 10 mg Q4H PRN PO .PAIN Last administered on 12/18/18at 03:37; Admin Dose 10 MG; Start 12/05/18 at 21:30 Oxycodone HCl (Roxicodone) 5 mg Q4H PRN PO .PAIN Last administered on 12/26/18at 23:02; Admin Dose 5 MG; Start 12/05/18 at 21:30 Hydromorphone HCl (Dilaudid) 1 mg Q3H PRN IV .BREAKTHROUGH PAIN Last administered on 12/06/18at 06:58; Admin Dose 1 MG; Start 12/05/18 at 21:30 Ondansetron HCl (Zofran Inj) 4 mg Q4H PRN IV NAUSEA/VOMITING; Start 12/06/18 at 21:30 Pantoprazole (Protonix Tab) 40 mg DAILY@06 PO Last administered on 12/28/18at 05:49; Admin Dose 40 MG; Start 12/07/18 at 06:00 Simethicone (Mylicon) 80 mg TID PRN PO .GAS; Start 12/05/18 at 21:30 Senna/Docusate Sodium (Senokot-S) 2 tab BID PRN PO .CONSTIPATION Last administered on 12/06/18at 08:54; Admin Dose 2 TAB; Start 12/05/18 at 21:30 Magnesium Hydroxide (Milk Of Mag) 30 ml HS PRN PO .CONSTIPATION; Start 12/05/18 at 21:30 Bisacodyl (Dulcolax Supp) 10 mg DAILY PRN [place] .CONSTIPATION; Start 12/05/18 at 21:30 Sodium Biphosphate/ Sodium Phosphate (Fleet Enema) 133 ml DAILY PRN [place] .CONSTIPATION; Start 12/05/18 at 21:30 Diphenhydramine HCl (Benadryl) 25 mg Q4H PRN IV .ITCHING; Start 12/05/18 at 21:30 Naloxone HCl (Narcan) 0.2 mg Q2M PRN IV .RESP RATE; Start 12/05/18 at 21:30 Bethanechol Chloride (Urecholine) 25 mg URINARY CATH D/C PRN PO UNABLE TO VOID; Start 12/05/18 at 21:30 Aspirin (Halfprin) 81 mg BID PO Last administered on 12/28/18 08:22; Admin Dose 81 MG; Start 12/06/18 at 09:00 Nystatin (Nystatin Powder) 1 applic BID TOP Last administered on 12/27/18 09:22; Admin Dose 1 APPLIC; Start 12/12/18 at 21:00 Cefepime HCl 50 ml @ 100 mls/hr Q12 IVPB Last administered on 12/28/18 08:22; Admin Dose 100 MLS/HR; Start 12/13/18 at 21:00 Albuterol (Proventil 0.083% (Neb)) 2.5 mg Q2H RESP THERAPY PRN HHN SHORTNESS OF BREATH; Start 12/15/18 at 12:00 Lidocaine (Lidoderm) 1 patch DAILY TD Last administered on 12/28/18 08:24; Admin Dose 1 PATCH; Start 12/15/18 at 12:00 Acetaminophen (Tylenol Tab) 1,000 mg Q8H PRN PO pain Last administered on 12/28/18 07:53; Admin Dose 1,000 MG; Start 12/16/18 at 19:00 Alteplase, Recombinant (Cathflo (Activase)) 2 mg MAY REPEAT X1 PRN CATHETER IF CATHETER REMAINS OCCULUDED Last administered on 12/17/18 13:20; Admin Dose 2 MG; Start 12/17/18 at 08:30 Gabapentin (Neurontin) 300 mg TID PO Last administered on 12/28/18 08:22; Admin Dose 300 MG; Start 12/22/18 at 13:00 Daptomycin 390 mg/ Sodium Chloride 100 ml @ 200 mls/hr Q24H IVPB Last administered on 12/27/18at 16:56; Admin Dose 200 MLS/HR; Start 12/23/18 at 16:30 Methocarbamol (Robaxin) 750 mg TID PO ; Start 12/28/18 at 13:00 BALTAZAR BARAJAS MD Dec 28, 2018 10:06
[2018-12-28] MEDS: METHOCARBAMOL 750 MG TAB PO SCH ×2 (13:33→20:10)
[2018-12-28] MEDS: NYSTATIN 30 GM POWDER BTL TOP SCH ×2 (13:33→20:11)
[2018-12-28 14:34] VITALS: BP 151/70; PULSE 79; RESP 16
--- NOTE | 2018-12-28 14:47 | CONS ---
Consultation Date/Type/Reason Admit Date/Time Dec 01, 2018 at 19:24 Initial Consult Date SUBJECTIVE: Pt is awake, alert. NO acute events over night. Continuing to spike fevers. High today 101.1 VS: stable T: 99.0 LABS: reviewed. WBC- Antimicrobials: Daptomycin and cefepime Microbiology: Blood culture on admission grew strep, urine culture grew E. coli, MRSA swab negative, repeat blood cultures negative. Sacral wound cx + MRSA/Proteus/Strep Sacral wound culture: Sacral wound cx + VRE/Proteus/Strep 2D echo revealed no vegetations Physical examination: GEN: This is well-developed well-nourished elderly woman, who is alert in no distress. HENT: Head atraumatic normocephalic, neck is supple. PULM: Chest rise symmetrical breath sounds clear. Heart: S1-S2. Abdomen: soft, bowel tones present. Extremities with right knee erythema and swelling Assessment: 1. Status post sepsis, present on admission 2. Streptococcal bacteremia 2 to #3 3. 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 Urinary tract infection 5. History of left total knee replacement 6. History of multilevel discectomy and posterior fusion from L1-L3, please see CT in the chart Plan: Patient remains stable. Will order CXR, and repeat cultures, blood and UA. Change antbx to Merrem and Zyvox. AM labs. Date/Time of Note DATE: 12/28/18 TIME: 14:41 Exam/Review of Systems Exam Vitals Vital Signs Date Temp Pulse Resp B/P (MAP) Pulse Ox O2 O2 Flow FiO2 Time Delivery Rate 12/28/18 100.1 79 16 151/70 100 Room Air 14:34 (97) Intake and Output 12/27/18 12/27/18 12/28/18 1515:00 23:00 07:00 IntakeIntake Total 970 ml 670 ml 900 ml OutputOutput Total 500 ml 550 ml 200 ml BalanceBalance 470 ml 120 ml 700 ml Results Result Diagram: 12/27/18202912/28/18 0512 Results 24hrs Laboratory Tests Test 12/27/18 20:30 12/28/18 05:12 White Blood Count 12.1 #H Red Blood Count 3.59 L Hemoglobin 9.3 L Hematocrit 30.4 L Mean Corpuscular Volume 84.7 Mean Corpuscular Hemoglobin 25.9 L Mean Corpuscular Hemoglobin Concent 30.6 L Red Cell Distribution Width 17.5 H Platelet Count 326 Mean Platelet Volume 10.0 Immature Granulocytes % 0.400 Neutrophils % 78.1 H Lymphocytes % 9.2 L Monocytes % 11.2 H Eosinophils % 0.5 Basophils % 0.6 Nucleated Red Blood Cells % 0.0 Immature Granulocytes # 0.050 H Neutrophils # 9.5 H Lymphocytes # 1.1 Monocytes # 1.4 H Eosinophils # 0.1 Basophils # 0.1 Nucleated Red Blood Cells # 0.0 Lactic Acid Level 2.0 1.0 Blood Urea Nitrogen 20 Creatinine 0.46 Medications Medication Current Medications Albuterol (Ventolin Hfa) 2 puff Q4H PRN INH WHEEZING AND SOB; Start 12/01/18 at 21:00; Status Hold Ascorbic Acid (Vitamin C) 500 mg BID PO Last administered on 12/28/18 08:22; Admin Dose 500 MG; Start 12/01/18 at 21:00 Bupropion HCl (Wellbutrin Xl) 300 mg DAILY PO Last administered on 12/28/18 08:23; Admin Dose 300 MG; Start 12/02/18 at 09:00 Cholecalciferol (Vitamin D) 1,000 unit DAILY PO Last administered on 12/28/18 08:22; Admin Dose 1,000 UNIT; Start 12/02/18 at 09:00 Diclofenac Sodium (Voltaren 1% Gel) 2 gm TID PRN TP PAIN; Start 12/01/18 at 21:00 Levothyroxine Sodium (Synthroid) 100 mcg BEFORE BREAKFAST PO Last administered on 12/28/18at 05:49; Admin Dose 100 MCG; Start 12/02/18 at 07:00 Lisinopril (Zestril) 5 mg DAILY PO Last administered on 12/28/18 08:23; Admin Dose 5 MG; Start 12/02/18 at 09:00 Magnesium Hydroxide (Milk Of Mag) 30 ml DAILY PRN PO CONSTIPATION; Start 12/01/18 at 21:00 Multivitamins Therapeutic (Theragran) 1 tab DAILY PO Last administered on 12/28/18 08:22; Admin Dose 1 TAB; Start 12/02/18 at 09:00 Polyethylene Glycol (Miralax) 17 gm DAILY PO Last administered on 12/27/18 09:14; Admin Dose 17 GM; Start 12/02/18 at 09:00 Senna (Senokot) 1 tab BID PO Last administered on 12/27/18 20:08; Admin Dose 1 TAB; Start 12/01/18 at 21:00 Vitamin B Complex/ Vitamin C (Berocca) 1 cap DAILY PO Last administered on 12/28/18 08:22; Admin Dose 1 CAP; Start 12/02/18 at 09:00 Fish Oil (Fish Oil) 1,000 mg DAILY PO Last administered on 12/28/18 08:22; Admin Dose 1,000 MG; Start 12/02/18 at 09:00 Docusate Sodium (Colace) 100 mg Q12H PRN PO .CONSTIPATION; Start 12/01/18 at 22:00 Bisacodyl (Dulcolax) 5 mg DAILY PRN PO .CONSTIPATION; Start 12/01/18 at 22:00 Lidocaine (Xylocaine 1% (Mpf)) 30 ml ONCE PRN INJ aspiration ; Start 12/04/18 at 17:30 IV Flush (NS 3 ml) 3 ml PER PROTOCOL IV ; Start 12/05/18 at 21:30 Oxycodone HCl (Roxicodone) 15 mg Q4H PRN PO .PAIN Last administered on 12/23/18 11:20; Admin Dose 15 MG; Start 12/05/18 at 21:30 Oxycodone HCl (Roxicodone) 10 mg Q4H PRN PO .PAIN Last administered on 12/18/18 03:37; Admin Dose 10 MG; Start 12/05/18 at 21:30 Oxycodone HCl (Roxicodone) 5 mg Q4H PRN PO .PAIN Last administered on 12/26/18 23:02; Admin Dose 5 MG; Start 12/05/18 at 21:30 Hydromorphone HCl (Dilaudid) 1 mg Q3H PRN IV .BREAKTHROUGH PAIN Last administered on 12/06/18 06:58; Admin Dose 1 MG; Start 12/05/18 at 21:30 Ondansetron HCl (Zofran Inj) 4 mg Q4H PRN IV NAUSEA/VOMITING; Start 12/06/18 at 21:30 Pantoprazole (Protonix Tab) 40 mg DAILY@06 PO Last administered on 12/28/18 05:49; Admin Dose 40 MG; Start 12/07/18 at 06:00 Simethicone (Mylicon) 80 mg TID PRN PO .GAS; Start 12/05/18 at 21:30 Senna/Docusate Sodium (Senokot-S) 2 tab BID PRN PO .CONSTIPATION Last administered on 12/06/18 08:54; Admin Dose 2 TAB; Start 12/05/18 at 21:30 Magnesium Hydroxide (Milk Of Mag) 30 ml HS PRN PO .CONSTIPATION; Start 12/05/18 at 21:30 Bisacodyl (Dulcolax Supp) 10 mg DAILY PRN [place] .CONSTIPATION; Start 12/05/18 at 21:30 Sodium Biphosphate/ Sodium Phosphate (Fleet Enema) 133 ml DAILY PRN [place] .CONSTIPATION; Start 12/05/18 at 21:30 Diphenhydramine HCl (Benadryl) 25 mg Q4H PRN IV .ITCHING; Start 12/05/18 at 21:30 Naloxone HCl (Narcan) 0.2 mg Q2M PRN IV .RESP RATE; Start 12/05/18 at 21:30 Bethanechol Chloride (Urecholine) 25 mg URINARY CATH D/C PRN PO UNABLE TO VOID; Start 12/05/18 at 21:30 Aspirin (Halfprin) 81 mg BID PO Last administered on 12/28/18 08:22; Admin Dose 81 MG; Start 12/06/18 at 09:00 Nystatin (Nystatin Powder) 1 applic BID TOP Last administered on 12/28/18 13:33; Admin Dose 1 APPLIC; Start 12/12/18 at 21:00 Cefepime HCl 50 ml @ 100 mls/hr Q12 IVPB Last administered on 12/28/18 08:22; Admin Dose 100 MLS/HR; Start 12/13/18 at 21:00 Albuterol (Proventil 0.083% (Neb)) 2.5 mg Q2H RESP THERAPY PRN HHN SHORTNESS OF BREATH; Start 12/15/18 at 12:00 Lidocaine (Lidoderm) 1 patch DAILY TD Last administered on 12/28/18 08:24; Admin Dose 1 PATCH; Start 12/15/18 at 12:00 Acetaminophen (Tylenol Tab) 1,000 mg Q8H PRN PO pain Last administered on 12/28/18 07:53; Admin Dose 1,000 MG; Start 12/16/18 at 19:00 Alteplase, Recombinant (Cathflo (Activase)) 2 mg MAY REPEAT X1 PRN CATHETER IF CATHETER REMAINS OCCULUDED Last administered on 12/17/18 13:20; Admin Dose 2 MG; Start 12/17/18 at 08:30 Gabapentin (Neurontin) 300 mg TID PO Last administered on 12/28/18 13:33; Admin Dose 300 MG; Start 12/22/18 at 13:00 Daptomycin 390 mg/ Sodium Chloride 100 ml @ 200 mls/hr Q24H IVPB Last admi nistered on 12/27/18 16:56; Admin Dose 200 MLS/HR; Start 12/23/18 at 16:30 Methocarbamol (Robaxin) 750 mg TID PO Last administered on 12/28/18 13:33; Admin Dose 750 MG; Start 12/28/18 at 13:00 ARNULFO RENDON Dec 28, 2018 14:47
[2018-12-28] MEDS: ZYVOX 600 MG TAB PO SCH ×2 (17:22→20:04)
[2018-12-28 20:00] VITALS: BP 137/62; PULSE 75; RESP 18
[2018-12-28] MEDS: MEROPENEM 1 GM/50ML(PMX) 50 ML IVPB SCH (20:10)
[2018-12-28] MEDS ORDERED: ZYVOX 600 MG TAB PO SCH (21:00)
[2018-12-28] MEDS ORDERED: MEROPENEM 1 GM/50ML(PMX) 50 ML IVPB SCH (21:00)
[2018-12-29 01:36] VITALS: BP 109/62; PULSE 70; RESP 20
[2018-12-29] MEDS: ACETAMINOPHEN 500 MG TAB PO PRN (04:12)
[2018-12-29] MEDS: PANTOPRAZOLE (EC) 40 MG TAB PO SCH (06:21)
[2018-12-29] MEDS: LEVOTHYROXINE 100 MCG TAB PO SCH (06:21)
[2018-12-29] MEDS ORDERED: POTASSIUM CHLORIDE (SR) 20 MEQ TAB PO STA (07:49)
[2018-12-29 07:53] VITALS: BP 128/59; PULSE 74; RESP 18
[2018-12-29] MEDS: MULTIVITAMINS THERAPEUTIC TAB PO SCH (08:33)
[2018-12-29] MEDS: SENNA TAB PO SCH ×2 (08:33→20:32)
[2018-12-29] MEDS: MEROPENEM 1 GM/50ML(PMX) 50 ML IVPB SCH ×2 (08:33→20:33)
[2018-12-29] MEDS: CHOLECALCIFEROL 1,000 UNIT TAB PO SCH (08:33)
[2018-12-29] MEDS: LIDOCAINE 5% PATCH TD SCH (08:33)
[2018-12-29] MEDS: POLYETHYLENE GLYCOL 17 GM PACKET PO SCH (08:33)
[2018-12-29] MEDS: GABAPENTIN 300 MG CAP PO SCH ×3 (08:33→20:32)
[2018-12-29] MEDS: VITAMIN B COMPLEX/VIT C CAP PO SCH (08:34)
[2018-12-29] MEDS: FISH OIL 1,000 MG CAP PO SCH (08:34)
[2018-12-29] MEDS: METHOCARBAMOL 750 MG TAB PO SCH ×3 (08:34→20:33)
[2018-12-29] MEDS: ASPIRIN (EC) 81 MG TAB PO SCH ×2 (08:34→20:33)
[2018-12-29] MEDS: ZYVOX 600 MG TAB PO SCH ×2 (08:34→20:32)
[2018-12-29] MEDS: BUPROPION (XL) 150 MG TAB PO SCH (08:34)
[2018-12-29] MEDS: ASCORBIC ACID 500 MG TAB PO SCH ×2 (08:34→20:32)
[2018-12-29] MEDS: LISINOPRIL 5 MG TAB PO SCH (08:35)
[2018-12-29] MEDS: NYSTATIN 30 GM POWDER BTL TOP SCH ×2 (08:57→20:33)
[2018-12-29] MEDS ORDERED: POTASSIUM CHLORIDE (SR) 20 MEQ TAB PO SCH (12:00)
--- NOTE | 2018-12-29 12:33 | CONS ---
Assessment/Plan Assessment/Plan Hospital Course (Demo Recall) Sitting up in a chair, looks comfortable, no fevers overnight. No n/v/d, no dysuria/hematuria, s/p fevers yesterday. Operated knee looks good, no erythema/pain Antimicrobials: Merrem, Zyvox Microbiology: Blood culture on admission grew strep, urine culture grew E. coli, MRSA swab negative, repeat blood cultures negative. Sacral wound cx + VRE/Proteus/Strep 2D echo revealed no vegetations Physical examination: This is well-developed well-nourished elderly woman who is alert in no distress. Head atraumatic normocephalic neck is supple. Chest rise symmetrical breath sounds clear. Heart: S1-S2. Abdomen soft, bowel tones present. Extremities wnl Assessment: 1. Fevers ?etiology r/o infected PICC vs 2 to sacral wound 2. Status post sepsis, present on admission 3. S/p streptococcal bacteremia 2 to #4 4. 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 S/p urinary tract infection 6. History of left total knee replacement 7. History of multilevel discectomy and posterior fusion from L1-L3, please see CT in the chart Plan: Clinically stable, CXR wnl, bld cx neg, continue antibiotics, 2 sets of bld cx from PICC, surgical eval for poss sacral wound debridement DW pt DW RN Consultation Date/Type/Reason Admit Date/Time Dec 01, 2018 at 19:24 Initial Consult Date Type of Consult id Date/Time of Note DATE: 12/29/18 TIME: 12:27 Exam/Review of Systems Exam Vitals Vital Signs Date Temp Pulse Resp B/P (MAP) Pulse Ox O2 O2 Flow FiO2 Time Delivery Rate 12/29/18 98.8 74 18 128/59 99 Room Air 07:53 (82) Intake and Output 12/28/18 12/28/18 12/29/18 1515:00 23:00 07:00 IntakeIntake Total 850 ml 50 ml BalanceBalance 850 ml 50 ml Results Result Diagram: 12/29/18 0453 12/29/18 0453 Results 24hrs Laboratory Tests Test 12/28/18 17:00 12/29/18 04:53 Urine Color YELLOW Urine Clarity SLIGHTLY CLOUDY A Urine pH 7.0 Urine Specific [place] 1.008 Urine Ketones NEGATIVE Urine Nitrite NEGATIVE Urine Bilirubin NEGATIVE Urine Urobilinogen NEGATIVE Urine Leukocyte Esterase NEGATIVE Urine Microscopic RBC 1 Urine Microscopic WBC 0 Urine Hemoglobin NEGATIVE Urine Glucose NEGATIVE Urine Total Protein NEGATIVE White Blood Count 11.1 H Red Blood Count 3.36 L Hemoglobin 8.7 L Hematocrit 28.3 L Mean Corpuscular Volume 84.2 Mean Corpuscular Hemoglobin 25.9 L Mean Corpuscular Hemoglobin Concent 30.7 L Red Cell Distribution Width 17.8 H Platelet Count 312 Mean Platelet Volume 10.1 Immature Granulocytes % 0.600 H Neutrophils % 73.7 Lymphocytes % 12.3 L Monocytes % 12.0 H Eosinophils % 1.1 Basophils % 0.3 Nucleated Red Blood Cells % 0.0 Immature Granulocytes # 0.070 H Neutrophils # 8.2 H Lymphocytes # 1.4 Monocytes # 1.3 H Eosinophils # 0.1 Basophils # 0.0 Nucleated Red Blood Cells # 0.0 Sodium Level 141 Potassium Level 3.3 L Chloride Level 106 Carbon Dioxide Level 28 Anion Gap 7 Blood Urea Nitrogen 12 Creatinine 0.48 Glucose Level 112 Calcium Level 8.6 Phosphorus Level 3.4 Magnesium Level 2.1 Albumin 2.8 L Medications Medication Current Medications Albuterol (Ventolin Hfa) 2 puff Q4H PRN INH WHEEZING AND SOB; Start 12/01/18 at 21:00; Status Hold Ascorbic Acid (Vitamin C) 500 mg BID PO Last administered on 12/29/18at 08:34; Admin Dose 500 MG; Start 12/01/18 at 21:00 Bupropion HCl (Wellbutrin Xl) 300 mg DAILY PO Last administered on 12/29/18at 08:34; Admin Dose 300 MG; Start 12/02/18 at 09:00 Cholecalciferol (Vitamin D) 1,000 unit DAILY PO Last administered on 12/29/18at 08:33; Admin Dose 1,000 UNIT; Start 12/02/18 at 09:00 Diclofenac Sodium (Voltaren 1% Gel) 2 gm TID PRN TP PAIN; Start 12/01/18 at 21:00 Levothyroxine Sodium (Synthroid) 100 mcg BEFORE BREAKFAST PO Last administered on 12/29/18at 06:21; Admin Dose 100 MCG; Start 12/02/18 at 07:00 Lisinopril (Zestril) 5 mg DAILY PO Last administered on 12/29/18at 08:35; Admin Dose 5 MG; Start 12/02/18 at 09:00 Magnesium Hydroxide (Milk Of Mag) 30 ml DAILY PRN PO CONSTIPATION; Start 12/01/18 at 21:00 Multivitamins Therapeutic (Theragran) 1 tab DAILY PO Last administered on 12/29/18 08:33; Admin Dose 1 TAB; Start 12/02/18 at 09:00 Polyethylene Glycol (Miralax) 17 gm DAILY PO Last administered on 12/29/18 08:33; Admin Dose 17 GM; Start 12/02/18 at 09:00 Senna (Senokot) 1 tab BID PO Last administered on 12/29/18 08:33; Admin Dose 1 TAB; Start 12/01/18 at 21:00 Vitamin B Complex/ Vitamin C (Berocca) 1 cap DAILY PO Last administered on 12/29/18 08:34; Admin Dose 1 CAP; Start 12/02/18 at 09:00 Fish Oil (Fish Oil) 1,000 mg DAILY PO Last administered on 12/29/18 08:34; Admin Dose 1,000 MG; Start 12/02/18 at 09:00 Docusate Sodium (Colace) 100 mg Q12H PRN PO .CONSTIPATION; Start 12/01/18 at 22:00 Bisacodyl (Dulcolax) 5 mg DAILY PRN PO .CONSTIPATION; Start 12/01/18 at 22:00 Lidocaine (Xylocaine 1% (Mpf)) 30 ml ONCE PRN INJ aspiration ; Start 12/04/18 at 17:30 IV Flush (NS 3 ml) 3 ml PER PROTOCOL IV ; Start 12/05/18 at 21:30 Oxycodone HCl (Roxicodone) 15 mg Q4H PRN PO .PAIN Last administered on 12/23/18 11:20; Admin Dose 15 MG; Start 12/05/18 at 21:30 Oxycodone HCl (Roxicodone) 10 mg Q4H PRN PO .PAIN Last administered on 12/18/18 03:37; Admin Dose 10 MG; Start 12/05/18 at 21:30 Oxycodone HCl (Roxicodone) 5 mg Q4H PRN PO .PAIN Last administered on 12/26/18 23:02; Admin Dose 5 MG; Start 12/05/18 at 21:30 Hydromorphone HCl (Dilaudid) 1 mg Q3H PRN IV .BREAKTHROUGH PAIN Last administered on 12/06/18at 06:58; Admin Dose 1 MG; Start 12/05/18 at 21:30 Ondansetron HCl (Zofran Inj) 4 mg Q4H PRN IV NAUSEA/VOMITING; Start 12/06/18 at 21:30 Pantoprazole (Protonix Tab) 40 mg DAILY@06 PO Last administered on 12/29/18at 06:21; Admin Dose 40 MG; Start 12/07/18 at 06:00 Simethicone (Mylicon) 80 mg TID PRN PO .GAS; Start 12/05/18 at 21:30 Senna/Docusate Sodium (Senokot-S) 2 tab BID PRN PO .CONSTIPATION Last administered on 12/06/18at 08:54; Admin Dose 2 TAB; Start 12/05/18 at 21:30 Magnesium Hydroxide (Milk Of Mag) 30 ml HS PRN PO .CONSTIPATION; Start 12/05/18 at 21:30 Bisacodyl (Dulcolax Supp) 10 mg DAILY PRN [place] .CONSTIPATION; Start 12/05/18 at 21:30 Sodium Biphosphate/ Sodium Phosphate (Fleet Enema) 133 ml DAILY PRN [place] . CONSTIPATION; Start 12/05/18 at 21:30 Diphenhydramine HCl (Benadryl) 25 mg Q4H PRN IV .ITCHING; Start 12/05/18 at 21:30 Naloxone HCl (Narcan) 0.2 mg Q2M PRN IV .RESP RATE; Start 12/05/18 at 21:30 Bethanechol Chloride (Urecholine) 25 mg URINARY CATH D/C PRN PO UNABLE TO VOID; Start 12/05/18 at 21:30 Aspirin (Halfprin) 81 mg BID PO Last administered on 12/29/18 08:34; Admin Dose 81 MG; Start 12/06/18 at 09:00 Nystatin (Nystatin Powder) 1 applic BID TOP Last administered on 12/29/18at 08:57; Admin Dose 1 APPLIC; Start 12/12/18 at 21:00 Albuterol (Proventil 0.083% (Neb)) 2.5 mg Q2H RESP THERAPY PRN HHN SHORTNESS OF BREATH; Start 12/15/18 at 12:00 Lidocaine (Lidoderm) 1 patch DAILY TD Last administered on 12/29/18 08:33; Admin Dose 1 PATCH; Start 12/15/18 at 12:00 Alteplase, Recombinant (Cathflo (Activase)) 2 mg MAY REPEAT X1 PRN CATHETER IF CATHETER REMAINS OCCULUDED Last administered on 12/17/18 13:20; Admin Dose 2 MG; Start 12/17/18 at 08:30 Gabapentin (Neurontin) 300 mg TID PO Last administered on 12/29/18 08:33; Admin Dose 300 MG; Start 12/22/18 at 13:00 Methocarbamol (Robaxin) 750 mg TID PO Last administered on 12/29/18 08:34; Admin Dose 750 MG; Start 12/28/18 at 13:00 Linezolid (Zyvox) 600 mg BID PO Last administered on 12/29/18 08:34; Admin Dose 600 MG; Start 12/28/18 at 15:00 Meropenem/Sodium Chloride 50 ml @ 100 mls/hr Q12 IVPB Last administered on 12/29/18 08:33; Admin Dose 100 MLS/HR; Start 12/28/18 at 21:00 Acetaminophen (Tylenol Tab) 1,000 mg Q6 PRN PO pain Last administered on 12/29/18 04:12; Admin Dose 1,000 MG; Start 12/28/18 at 21:30 OZZIE SOLOMON NP Dec 29, 2018 12:33
--- NOTE | 2018-12-29 13:07 | PN ---
Date/Time of Note Date/Time of Note DATE: 12/29/18 TIME: 13:01 Assessment/Plan VTE Prophylaxis Risk score (from Nsg)>0 risk: 3 SCD applied (from Nsg): Yes Pharmacological prophylaxis: other Lines/Catheters IV Catheter Type (from Nrsg): PICC Line Central line still needed: Yes Urinary Cath still in place: No Assessment/Plan Assessment/Plan 1. Febrile, ?source - Repeat sacral wound cultures growing gram neg rods. Will await final sensitivities - ID on board and appreciate recommendations. Concerns for line infection and will check blood cultures from PICC line site. If continue to spike elevated fevers, will need replacement of PICC 2. Septic R knee joint s/p I&D on 12/05/18- resolved - remains stable and incision site clean and dry - Continues to work with PT. - Ortho on board and recommendations appreciated. Continue IV antibiotics until 01/18 then will need to continue PO antibiotics - pain control 3. 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 Continues to refuse. Using waffle cushion when in bedside chair 5. Chronic spinal disease - h/o significant stenosis of her spine. Lumbar spine and thoracic spine CT show signs of stenosis though no acute fractures. - continue lidocaine patch 6. osteoarthritis - pain control 7. urinary tract infection- treated - Cultures growing ecoli and lactobacillus - asymptomatic 8. Strep Bacteremia - continue current antibiotics - repeat cultures negative 9. Mechanical fall 10. Disposition - Blood cultures from PICC line obtained and will await results - CM on board for SNF placement Result Diagram: 12/29/18 0453 12/29/18 0453 Results 24hrs Laboratory Tests Test 12/28/18 17:00 12/29/18 04:53 Urine Color YELLOW Urine Clarity SLIGHTLY CLOUDY A Urine pH 7.0 Urine Specific [place] 1.008 Urine Ketones NEGATIVE Urine Nitrite NEGATIVE Urine Bilirubin NEGATIVE Urine Urobilinogen NEGATIVE Urine Leukocyte Esterase NEGATIVE Urine Microscopic RBC 1 Urine Microscopic WBC 0 Urine Hemoglobin NEGATIVE Urine Glucose NEGATIVE Urine Total Protein NEGATIVE White Blood Count 11.1 H Red Blood Count 3.36 L Hemoglobin 8.7 L Hematocrit 28.3 L Mean Corpuscular Volume 84.2 Mean Corpuscular Hemoglobin 25.9 L Mean Corpuscular Hemoglobin Concent 30.7 L Red Cell Distribution Width 17.8 H Platelet Count 312 Mean Platelet Volume 10.1 Immature Granulocytes % 0.600 H Neutrophils % 73.7 Lymphocytes % 12.3 L Monocytes % 12.0 H Eosinophils % 1.1 Basophils % 0.3 Nucleated Red Blood Cells % 0.0 Immature Granulocytes # 0.070 H Neutrophils # 8.2 H Lymphocytes # 1.4 Monocytes # 1.3 H Eosinophils # 0.1 Basophils # 0.0 Nucleated Red Blood Cells # 0.0 Sodium Level 141 Potassium Level 3.3 L Chloride Level 106 Carbon Dioxide Level 28 Anion Gap 7 Blood Urea Nitrogen 12 Creatinine 0.48 Glucose Level 112 Calcium Level 8.6 Phosphorus Level 3.4 Magnesium Level 2.1 Albumin 2.8 L Subjective 24 Hr Interval Summary Free Text/Dictation Patient states shes not experiencing any further episodes of fevers. Feels as if they broke last night. Still with leg cramping and discussed low K may be contributing. Exam/Review of Systems Exam Vitals Vital Signs Date Temp Pulse Resp B/P (MAP) Pulse Ox O2 O2 Flow FiO2 Time Delivery Rate 12/29/18 98.8 74 18 128/59 99 Room Air 07:53 (82) Intake and Output 12/28/18 12/28/18 12/29/18 1515:00 23:00 07:00 IntakeIntake Total 850 ml 50 ml BalanceBalance 850 ml 50 ml Exam General: Patient is laying in bed and answers questions appropriately. Neck: Supple Respiratory: Clear to auscultation bilaterally. no wheezing Cardiovascular: regular rate and rhythm, no obvious murmurs Gastrointestinal: soft, non-tender to palpation, bowel sounds heard. Ext: Moves all extremities spontaneously. no edema, cyanosis, or clubbing Skin: Right knee surgical incision well healed, no discharge or drainage Results Results 24hrs Laboratory Tests Test 12/28/18 17:00 12/29/18 04:53 Urine Color YELLOW Urine Clarity SLIGHTLY CLOUDY A Urine pH 7.0 Urine Specific [place] 1.008 Urine Ketones NEGATIVE Urine Nitrite NEGATIVE Urine Bilirubin NEGATIVE Urine Urobilinogen NEGATIVE Urine Leukocyte Esterase NEGATIVE Urine Microscopic RBC 1 Urine Microscopic WBC 0 Urine Hemoglobin NEGATIVE Urine Glucose NEGATIVE Urine Total Protein NEGATIVE White Blood Count 11.1 H Red Blood Count 3.36 L Hemoglobin 8.7 L Hematocrit 28.3 L Mean Corpuscular Volume 84.2 Mean Corpuscular Hemoglobin 25.9 L Mean Corpuscular Hemoglobin Concent 30.7 L Red Cell Distribution Width 17.8 H Platelet Count 312 Mean Platelet Volume 10.1 Immature Granulocytes % 0.600 H Neutrophils % 73.7 Lymphocytes % 12.3 L Monocytes % 12.0 H Eosinophils % 1.1 Basophils % 0.3 Nucleated Red Blood Cells % 0.0 Immature Granulocytes # 0.070 H Neutrophils # 8.2 H Lymphocytes # 1.4 Monocytes # 1.3 H Eosinophils # 0.1 Basophils # 0.0 Nucleated Red Blood Cells # 0.0 Sodium Level 141 Potassium Level 3.3 L Chloride Level 106 Carbon Dioxide Level 28 Anion Gap 7 Blood Urea Nitrogen 12 Creatinine 0.48 Glucose Level 112 Calcium Level 8.6 Phosphorus Level 3.4 Magnesium Level 2.1 Albumin 2.8 L Medications Medication Current Medications Albuterol (Ventolin Hfa) 2 puff Q4H PRN INH WHEEZING AND SOB; Start 12/01/18 at 21:00; Status Hold Ascorbic Acid (Vitamin C) 500 mg BID PO Last administered on 12/29/18 08:34; Admin Dose 500 MG; Start 12/01/18 at 21:00 Bupropion HCl (Wellbutrin Xl) 300 mg DAILY PO Last administered on 12/29/18 08:34; Admin Dose 300 MG; Start 12/02/18 at 09:00 Cholecalciferol (Vitamin D) 1,000 unit DAILY PO Last administered on 12/29/18 08:33; Admin Dose 1,000 UNIT; Start 12/02/18 at 09:00 Diclofenac Sodium (Voltaren 1% Gel) 2 gm TID PRN TP PAIN; Start 12/01/18 at 21:00 Levothyroxine Sodium (Synthroid) 100 mcg BEFORE BREAKFAST PO Last administered on 12/29/18 06:21; Admin Dose 100 MCG; Start 12/02/18 at 07:00 Lisinopril (Zestril) 5 mg DAILY PO Last administered on 12/29/18 08:35; Admin Dose 5 MG; Start 12/02/18 at 09:00 Magnesium Hydroxide (Milk Of Mag) 30 ml DAILY PRN PO CONSTIPATION; Start 12/01/18 at 21:00 Multivitamins Therapeutic (Theragran) 1 tab DAILY PO Last administered on 12/29/18 08:33; Admin Dose 1 TAB; Start 12/02/18 at 09:00 Polyethylene Glycol (Miralax) 17 gm DAILY PO Last administered on 12/29/18 08:33; Admin Dose 17 GM; Start 12/02/18 at 09:00 Senna (Senokot) 1 tab BID PO Last administered on 12/29/18 08:33; Admin Dose 1 TAB; Start 12/01/18 at 21:00 Vitamin B Complex/ Vitamin C (Berocca) 1 cap DAILY PO Last administered on 12/29/18 08:34; Admin Dose 1 CAP; Start 12/02/18 at 09:00 Fish Oil (Fish Oil) 1,000 mg DAILY PO Last administered on 12/29/18 08:34; Admin Dose 1,000 MG; Start 12/02/18 at 09:00 Docusate Sodium (Colace) 100 mg Q12H PRN PO .CONSTIPATION; Start 12/01/18 at 22:00 Bisacodyl (Dulcolax) 5 mg DAILY PRN PO .CONSTIPATION; Start 12/01/18 at 22:00 Lidocaine (Xylocaine 1% (Mpf)) 30 ml ONCE PRN INJ aspiration ; Start 12/04/18 at 17:30 IV Flush (NS 3 ml) 3 ml PER PROTOCOL IV ; Start 12/05/18 at 21:30 Oxycodone HCl (Roxicodone) 15 mg Q4H PRN PO .PAIN Last administered on 12/23/18 11:20; Admin Dose 15 MG; Start 12/05/18 at 21:30 Oxycodone HCl (Roxicodone) 10 mg Q4H PRN PO .PAIN Last administered on 12/18/18 03:37; Admin Dose 10 MG; Start 12/05/18 at 21:30 Oxycodone HCl (Roxicodone) 5 mg Q4H PRN PO .PAIN Last administered on 12/26/18 23:02; Admin Dose 5 MG; Start 12/05/18 at 21:30 Hydromorphone HCl (Dilaudid) 1 mg Q3H PRN IV .BREAKTHROUGH PAIN Last administered on 12/06/18 06:58; Admin Dose 1 MG; Start 12/05/18 at 21:30 Ondansetron HCl (Zofran Inj) 4 mg Q4H PRN IV NAUSEA/VOMITING; Start 12/06/18 at 21:30 Pantoprazole (Protonix Tab) 40 mg DAILY@06 PO Last administered on 12/29/18at 06:21; Admin Dose 40 MG; Start 12/07/18 at 06:00 Simethicone (Mylicon) 80 mg TID PRN PO .GAS; Start 12/05/18 at 21:30 Senna/Docusate Sodium (Senokot-S) 2 tab BID PRN PO .CONSTIPATION Last administered on 12/06/18at 08:54; Admin Dose 2 TAB; Start 12/05/18 at 21:30 Magnesium Hydroxide (Milk Of Mag) 30 ml HS PRN PO .CONSTIPATION; Start 12/05/18 at 21:30 Bisacodyl (Dulcolax Supp) 10 mg DAILY PRN [place] .CONSTIPATION; Start 12/05/18 at 21:30 Sodium Biphosphate/ Sodium Phosphate (Fleet Enema) 133 ml DAILY PRN [place] .CONSTIPATION; Start 12/05/18 at 21:30 Diphenhydramine HCl (Benadryl) 25 mg Q4H PRN IV .ITCHING; Start 12/05/18 at 21:30 Naloxone HCl (Narcan) 0.2 mg Q2M PRN IV .RESP RATE; Start 12/05/18 at 21:30 Bethanechol Chloride (Urecholine) 25 mg URINARY CATH D/C PRN PO UNABLE TO VOID; Start 12/05/18 at 21:30 Aspirin (Halfprin) 81 mg BID PO Last administered on 12/29/18at 08:34; Admin Dose 81 MG; Start 12/06/18 at 09:00 Nystatin (Nystatin Powder) 1 applic BID TOP Last administered on 12/29/18at 08:57; Admin Dose 1 APPLIC; Start 12/12/18 at 21:00 Albuterol (Proventil 0.083% (Neb)) 2.5 mg Q2H RESP THERAPY PRN HHN SHORTNESS OF BREATH; Start 12/15/18 at 12:00 Lidocaine (Lidoderm) 1 patch DAILY TD Last administered on 12/29/18at 08:33; Admin Dose 1 PATCH; Start 12/15/18 at 12:00 Alteplase, Recombinant (Cathflo (Activase)) 2 mg MAY REPEAT X1 PRN CATHETER IF CATHETER REMAINS OCCULUDED Last administered on 12/17/18 13:20; Admin Dose 2 MG; Start 12/17/18 at 08:30 Gabapentin (Neurontin) 300 mg TID PO Last administered on 12/29/18 08:33; Admin Dose 300 MG; Start 12/22/18 at 13:00 Methocarbamol (Robaxin) 750 mg TID PO Last administered on 12/29/18 08:34; Admin Dose 750 MG; Start 12/28/18 at 13:00 Linezolid (Zyvox) 600 mg BID PO Last administered on 12/29/18 08:34; Admin Dose 600 MG; Start 12/28/18 at 15:00 Meropenem/Sodium Chloride 50 ml @ 100 mls/hr Q12 IVPB Last administered on 12/29/18 08:33; Admin Dose 100 MLS/HR; Start 12/28/18 at 21:00 Acetaminophen (Tylenol Tab) 1,000 mg Q6 PRN PO pain Last administered on 12/29/18 04:12; Admin Dose 1,000 MG; Start 12/28/18 at 21:30 BALTAZAR BARAJAS MD Dec 29, 2018 13:07
[2018-12-29] MEDS ORDERED: ALTEPLASE (CATHFLO) 2 MG INJ CATHETER PRN (16:00)
[2018-12-29 19:30] VITALS: BP 110/59; PULSE 77; RESP 18
[2018-12-29] MEDS: oxyCODONE 5 MG TAB PO PRN (20:33)
[2018-12-30] MEDS: oxyCODONE 5 MG TAB PO PRN ×2 (01:22→13:42)
[2018-12-30 01:33] VITALS: BP 116/53; PULSE 79; RESP 16
[2018-12-30] MEDS: ACETAMINOPHEN 500 MG TAB PO PRN (01:38)
[2018-12-30] MEDS: LEVOTHYROXINE 100 MCG TAB PO SCH (05:44)
[2018-12-30] MEDS: PANTOPRAZOLE (EC) 40 MG TAB PO SCH (05:44)
[2018-12-30 08:23] VITALS: BP 112/59; PULSE 65; RESP 18
[2018-12-30] MEDS: POLYETHYLENE GLYCOL 17 GM PACKET PO SCH (09:00)
[2018-12-30] MEDS: SENNA TAB PO SCH ×2 (09:00→21:00)
[2018-12-30] MEDS: MEROPENEM 1 GM/50ML(PMX) 50 ML IVPB SCH ×2 (09:18→20:31)
[2018-12-30] MEDS: MULTIVITAMINS THERAPEUTIC TAB PO SCH (09:23)
[2018-12-30] MEDS: CHOLECALCIFEROL 1,000 UNIT TAB PO SCH (09:24)
[2018-12-30] MEDS: ASPIRIN (EC) 81 MG TAB PO SCH ×2 (09:24→20:32)
[2018-12-30] MEDS: VITAMIN B COMPLEX/VIT C CAP PO SCH (09:24)
[2018-12-30] MEDS: METHOCARBAMOL 750 MG TAB PO SCH ×3 (09:24→20:31)
[2018-12-30] MEDS: BUPROPION (XL) 150 MG TAB PO SCH (09:24)
[2018-12-30] MEDS: FISH OIL 1,000 MG CAP PO SCH (09:24)
[2018-12-30] MEDS: GABAPENTIN 300 MG CAP PO SCH ×3 (09:24→20:32)
[2018-12-30] MEDS: ASCORBIC ACID 500 MG TAB PO SCH ×2 (09:26→20:32)
[2018-12-30] MEDS: LISINOPRIL 5 MG TAB PO SCH (09:26)
[2018-12-30] MEDS: ZYVOX 600 MG TAB PO SCH ×2 (09:28→20:32)
[2018-12-30] MEDS: LIDOCAINE 5% PATCH TD SCH (09:36)
[2018-12-30] MEDS: NYSTATIN 30 GM POWDER BTL TOP SCH ×2 (09:40→20:33)
[2018-12-30 13:52] VITALS: BP 119/62; PULSE 72; RESP 19
--- NOTE | 2018-12-30 14:17 | CONS ---
Assessment/Plan Assessment/Plan Hospital Course (Demo Recall) No acute changes, alert, looks comfortable, s/p low grade temps Antimicrobials: Merrem, Zyvox Microbiology: Blood culture on admission grew strep, urine culture grew E. coli, MRSA swab negative, repeat blood cultures negative. Sacral wound cx + VRE/Proteus/Strep 2D echo revealed no vegetations Physical examination: This is well-developed well-nourished elderly woman who is alert in no distress. Head atraumatic normocephalic neck is supple. Chest rise symmetrical breath sounds clear. Heart: S1-S2. Abdomen soft, bowel tones present. Extremities wnl Assessment: 1. Fevers ?etiology r/o infected PICC vs 2 to sacral wound 2. Status post sepsis, present on admission 3. S/p streptococcal bacteremia 2 to #4 4. 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 S/p urinary tract infection 6. History of left total knee replacement 7. History of multilevel discectomy and posterior fusion from L1-L3, please see CT in the chart Plan: Clinically stable, bld and urine cx neg, continue antibiotics, pending surgical eval for poss sacral wound debridement DW pt DW RN Consultation Date/Type/Reason Admit Date/Time Dec 01, 2018 at 19:24 Initial Consult Date Type of Consult id Date/Time of Note DATE: 12/30/18 TIME: 14:16 Exam/Review of Systems Exam Vitals Vital Signs Date Temp Pulse Resp B/P (MAP) Pulse Ox O2 O2 Flow FiO2 Time Delivery Rate 12/30/18 98.2 72 19 119/62 98 Room Air 13:52 (81) Intake and Output 12/29/18 12/29/18 12/30/18 1515:00 23:00 07:00 IntakeIntake Total 50 ml 850 ml 240 ml BalanceBalance 50 ml 850 ml 240 ml Results Result Diagram: 12/29/18 0453 12/29/18 0453 Medications Medication Current Medications Albuterol (Ventolin Hfa) 2 puff Q4H PRN INH WHEEZING AND SOB; Start 12/01/18 at 21:00; Status Hold Ascorbic Acid (Vitamin C) 500 mg BID PO Last administered on 12/30/18at 09:26; Admin Dose 500 MG; Start 12/01/18 at 21:00 Bupropion HCl (Wellbutrin Xl) 300 mg DAILY PO Last administered on 12/30/18 09:24; Admin Dose 300 MG; Start 12/02/18 at 09:00 Cholecalciferol (Vitamin D) 1,000 unit DAILY PO Last administered on 12/30/18 09:24; Admin Dose 1,000 UNIT; Start 12/02/18 at 09:00 Diclofenac Sodium (Voltaren 1% Gel) 2 gm TID PRN TP PAIN; Start 12/01/18 at 21:00 Levothyroxine Sodium (Synthroid) 100 mcg BEFORE BREAKFAST PO Last administered on 12/30/18 05:44; Admin Dose 100 MCG; Start 12/02/18 at 07:00 Lisinopril (Zestril) 5 mg DAILY PO Last administered on 12/30/18 09:26; Admin Dose 5 MG; Start 12/02/18 at 09:00 Magnesium Hydroxide (Milk Of Mag) 30 ml DAILY PRN PO CONSTIPATION; Start 12/01/18 at 21:00 Multivitamins Therapeutic (Theragran) 1 tab DAILY PO Last administered on 12/30/18 09:23; Admin Dose 1 TAB; Start 12/02/18 at 09:00 Polyethylene Glycol (Miralax) 17 gm DAILY PO Last administered on 12/29/18 08:33; Admin Dose 17 GM; Start 12/02/18 at 09:00 Senna (Senokot) 1 tab BID PO Last administered on 12/29/18 20:32; Admin Dose 1 TAB; Start 12/01/18 at 21:00 Vitamin B Complex/ Vitamin C (Berocca) 1 cap DAILY PO Last administered on 12/30/18 09:24; Admin Dose 1 CAP; Start 12/02/18 at 09:00 Fish Oil (Fish Oil) 1,000 mg DAILY PO Last administered on 12/30/18 09:24; Admin Dose 1,000 MG; Start 12/02/18 at 09:00 Docusate Sodium (Colace) 100 mg Q12H PRN PO .CONSTIPATION; Start 12/01/18 at 22:00 Bisacodyl (Dulcolax) 5 mg DAILY PRN PO .CONSTIPATION; Start 12/01/18 at 22:00 Lidocaine (Xylocaine 1% (Mpf)) 30 ml ONCE PRN INJ aspiration ; Start 12/04/18 at 17:30 IV Flush (NS 3 ml) 3 ml PER PROTOCOL IV ; Start 12/05/18 at 21:30 Oxycodone HCl (Roxicodone) 15 mg Q4H PRN PO .PAIN Last administered on 12/30/18 13:42; Admin Dose 5 MG; Start 12/05/18 at 21:30 Oxycodone HCl (Roxicodone) 10 mg Q4H PRN PO .PAIN Last administered on 12/18/18 03:37; Admin Dose 10 MG; Start 12/05/18 at 21:30 Oxycodone HCl (Roxicodone) 5 mg Q4H PRN PO .PAIN Last administered on 12/30/18 01:22; Admin Dose 5 MG; Start 12/05/18 at 21:30 Hydromorphone HCl (Dilaudid) 1 mg Q3H PRN IV .BREAKTHROUGH PAIN Last administered on 12/06/18 06:58; Admin Dose 1 MG; Start 12/05/18 at 21:30 Ondansetron HCl (Zofran Inj) 4 mg Q4H PRN IV NAUSEA/VOMITING; Start 12/06/18 at 21:30 Pantoprazole (Protonix Tab) 40 mg DAILY@06 PO Last administered on 12/30/18 05:44; Admin Dose 40 MG; Start 12/07/18 at 06:00 Simethicone (Mylicon) 80 mg TID PRN PO .GAS; Start 12/05/18 at 21:30 Senna/Docusate Sodium (Senokot-S) 2 tab BID PRN PO .CONSTIPATION Last administered on 12/06/18 08:54; Admin Dose 2 TAB; Start 12/05/18 at 21:30 Magnesium Hydroxide (Milk Of Mag) 30 ml HS PRN PO .CONSTIPATION; Start 12/05/18 at 21:30 Bisacodyl (Dulcolax Supp) 10 mg DAILY PRN [place] .CONSTIPATION; Start 12/05/18 at 21:30 Sodium Biphosphate/ Sodium Phosphate (Fleet Enema) 133 ml DAILY PRN [place] .CONSTIPATION; Start 12/05/18 at 21:30 Diphenhydramine HCl (Benadryl) 25 mg Q4H PRN IV .ITCHING; Start 12/05/18 at 21:30 Naloxone HCl (Narcan) 0.2 mg Q2M PRN IV .RESP RATE; Start 12/05/18 at 21:30 Bethanechol Chloride (Urecholine) 25 mg URINARY CATH D/C PRN PO UNABLE TO VOID; Start 12/05/18 at 21:30 Aspirin (Halfprin) 81 mg BID PO Last administered on 12/30/18 09:24; Admin Dose 81 MG; Start 12/06/18 at 09:00 Nystatin (Nystatin Powder) 1 applic BID TOP Last administered on 12/30/18 09:40; Admin Dose 1 APPLIC; Start 12/12/18 at 21:00 Albuterol (Proventil 0.083% (Neb)) 2.5 mg Q2H RESP THERAPY PRN HHN SHORTNESS OF BREATH; Start 12/15/18 at 12:00 Lidocaine (Lidoderm) 1 patch DAILY TD Last administered on 12/30/18 09:36; Admin Dose 1 PATCH; Start 12/15/18 at 12:00 Alteplase, Recombinant (Cathflo (Activase)) 2 mg MAY REPEAT X1 PRN CATHETER IF CATHETER REMAINS OCCULUDED Last administered on 12/17/18 13:20; Admin Dose 2 MG; Start 12/17/18 at 08:30 Gabapentin (Neurontin) 300 mg TID PO Last administered on 12/30/18 13:42; Admin Dose 300 MG; Start 12/22/18 at 13:00 Methocarbamol (Robaxin) 750 mg TID PO Last administered on 12/30/18 13:41; Admin Dose 750 MG; Start 12/28/18 at 13:00 Linezolid (Zyvox) 600 mg BID PO Last administered on 12/30/18 09:28; Admin Do se 600 MG; Start 12/28/18 at 15:00 Meropenem/Sodium Chloride 50 ml @ 100 mls/hr Q12 IVPB Last administered on 12/30/18 09:18; Admin Dose 100 MLS/HR; Start 12/28/18 at 21:00 Acetaminophen (Tylenol Tab) 1,000 mg Q6 PRN PO pain Last administered on 12/30/18 01:38; Admin Dose 1,000 MG; Start 12/28/18 at 21:30 Alteplase, Recombinant (Cathflo (Activase)) 2 mg MAY REPEAT X1 PRN CATHETER IF CATHETER REMAINS OCCULUDED Last administered on 12/29/18at 16:53; Admin Dose 2 MG; Start 12/29/18 at 16:00 Sodium Hypochlorite (Dakins Diluted ()) 1 applic DAILY TP ; Start 12/30/18 at 13:00 OZZIE SOLOMON NP Dec 30, 2018 14:17
[2018-12-30] MEDS ORDERED: POTASSIUM CHLORIDE (SR) 20 MEQ TAB PO STA (14:30)
[2018-12-30] MEDS: DAKINS 0.0125%(1/40) 473 ML SOLUTION TP SCH ×2 (14:54→20:39)
--- NOTE | 2018-12-30 15:23 | PN ---
Date/Time of Note Date/Time of Note DATE: 12/30/18 TIME: 15:19 Assessment/Plan VTE Prophylaxis Risk score (from Ns)>0 risk: 5 SCD applied (from Ns): Yes Pharmacological prophylaxis: NA/contraindicated Pharm contraindication: surgical contra Lines/Catheters IV Catheter Type (from Nrs): Saline Lock Urinary Cath still in place: No Assessment/Plan Hospital Course 1. Sepsis secondary secondary to decubitus ulcers and/or PICC line infection - Repeat sacral wound cultures growing gram neg rods. Will await final sensitivities - ID on board and appreciate recommendations. Concerns for line infection and will check blood cultures from PICC line site. If continue to spike elevated fevers, will need replacement of PICC 2. Septic R knee joint s/p I&D on 12/05/18- resolved - remains stable and incision site clean and dry - Continues to work with PT. - Ortho on board and recommendations appreciated. Continue IV antibiotics until 01/18 then will need to continue PO antibiotics - pain control 3. 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 Continues to refuse. Using waffle cushion when in bedside chair -Wound care is recommending surgical consultation for debridement, consultation with Dr. Nation requested 5. Chronic spinal disease - h/o significant stenosis of her spine. Lumbar spine and thoracic spine CT show signs of stenosis though no acute fractures. - continue lidocaine patch 6. osteoarthritis - pain control 7. urinary tract infection- treated - Cultures growing ecoli and lactobacillus - asymptomatic 8. Strep Bacteremia - continue current antibiotics - repeat cultures negative 9. Mechanical fall 10. Disposition - Blood cultures from PICC line obtained and will await results - CM on board for SNF placement Result Diagram: 12/29/18 0453 12/29/18 0453 Subjective 24 Hr Interval Summary Constitutional: no complaints Exam/Review of Systems Exam Vitals Vital Signs Date Temp Pulse Resp B/P (MAP) Pulse Ox O2 O2 Flow FiO2 Time Delivery Rate 12/30/18 98.2 72 19 119/62 98 Room Air 13:52 (81) Intake and Output 12/29/18 12/29/18 12/30/18 1414:59 22:59 06:59 IntakeIntake Total 50 ml 850 ml 240 ml BalanceBalance 50 ml 850 ml 240 ml Constitutional: alert, oriented Respiratory: clear to auscultation Cardiovascular: regular rate and rhythm Gastrointestinal: soft; No distended Musculoskeletal: nl extremities to inspection Medications Medication Current Medications Albuterol (Ventolin Hfa) 2 puff Q4H PRN INH WHEEZING AND SOB; Start 12/01/18 at 21:00; Status Hold Ascorbic Acid (Vitamin C) 500 mg BID PO Last administered on 12/30/18 09:26; Admin Dose 500 MG; Start 12/01/18 at 21:00 Bupropion HCl (Wellbutrin Xl) 300 mg DAILY PO Last administered on 12/30/18 09:24; Admin Dose 300 MG; Start 12/02/18 at 09:00 Cholecalciferol (Vitamin D) 1,000 unit DAILY PO Last administered on 12/30/18 09:24; Admin Dose 1,000 UNIT; Start 12/02/18 at 09:00 Diclofenac Sodium (Voltaren 1% Gel) 2 gm TID PRN TP PAIN; Start 12/01/18 at 21:00 Levothyroxine Sodium (Synthroid) 100 mcg BEFORE BREAKFAST PO Last administered on 12/30/18 05:44; Admin Dose 100 MCG; Start 12/02/18 at 07:00 Lisinopril (Zestril) 5 mg DAILY PO Last administered on 12/30/18 09:26; Admin Dose 5 MG; Start 12/02/18 at 09:00 Magnesium Hydroxide (Milk Of Mag) 30 ml DAILY PRN PO CONSTIPATION; Start 12/01/18 at 21:00 Multivitamins Therapeutic (Theragran) 1 tab DAILY PO Last administered on 12/30/18 09:23; Admin Dose 1 TAB; Start 12/02/18 at 09:00 Polyethylene Glycol (Miralax) 17 gm DAILY PO Last administered on 12/29/18 08:33; Admin Dose 17 GM; Start 12/02/18 at 09:00 Senna (Senokot) 1 tab BID PO Last administered on 12/29/18 20:32; Admin Dose 1 TAB; Start 12/01/18 at 21:00 Vitamin B Complex/ Vitamin C (Berocca) 1 cap DAILY PO Last administered on 12/10 09:24; Admin Dose 1 CAP; Start 12/02/18 at 09:00 Fish Oil (Fish Oil) 1,000 mg DAILY PO Last administered on 12/30/18 09:24; Admin Dose 1,000 MG; Start 12/02/18 at 09:00 Docusate Sodium (Colace) 100 mg Q12H PRN PO .CONSTIPATION; Start 12/01/18 at 22:00 Bisacodyl (Dulcolax) 5 mg DAILY PRN PO .CONSTIPATION; Start 12/01/18 at 22:00 Lidocaine (Xylocaine 1% (Mpf)) 30 ml ONCE PRN INJ aspiration ; Start 12/04/18 at 17:30 IV Flush (NS 3 ml) 3 ml PER PROTOCOL IV ; Start 12/05/18 at 21:30 Oxycodone HCl (Roxicodone) 15 mg Q4H PRN PO .PAIN Last administered on 12/30/18 13:42; Admin Dose 5 MG; Start 12/05/18 at 21:30 Oxycodone HCl (Roxicodone) 10 mg Q4H PRN PO .PAIN Last administered on 12/18 03:37; Admin Dose 10 MG; Start 12/05/18 at 21:30 Oxycodone HCl (Roxicodone) 5 mg Q4H PRN PO .PAIN Last administered on 12/30/18 01:22; Admin Dose 5 MG; Start 12/05/18 at 21:30 Hydromorphone HCl (Dilaudid) 1 mg Q3H PRN IV .BREAKTHROUGH PAIN Last administered on 12/06/18 06:58; Admin Dose 1 MG; Start 12/05/18 at 21:30 Ondansetron HCl (Zofran Inj) 4 mg Q4H PRN IV NAUSEA/VOMITING; Start 12/06/18 at 21:30 Pantoprazole (Protonix Tab) 40 mg DAILY@06 PO Last administered on 12/30/18 05:44; Admin Dose 40 MG; Start 12/07/18 at 06:00 Simethicone (Mylicon) 80 mg TID PRN PO .GAS; Start 12/05/18 at 21:30 Senna/Docusate Sodium (Senokot-S) 2 tab BID PRN PO .CONSTIPATION Last administered on 12/06/18 08:54; Admin Dose 2 TAB; Start 12/05/18 at 21:30 Magnesium Hydroxide (Milk Of Mag) 30 ml HS PRN PO .CONSTIPATION; Start 12/05/18 at 21:30 Bisacodyl (Dulcolax Supp) 10 mg DAILY PRN [place] .CONSTIPATION; Start 12/05/18 at 21:30 Sodium Biphosphate/ Sodium Phosphate (Fleet Enema) 133 ml DAILY PRN [place] .CONSTIPATION; Start 12/05/18 at 21:30 Diphenhydramine HCl (Benadryl) 25 mg Q4H PRN IV .ITCHING; Start 12/05/18 at 21:30 Naloxone HCl (Narcan) 0.2 mg Q2M PRN IV .RESP RATE; Start 12/05/18 at 21:30 Bethanechol Chloride (Urecholine) 25 mg URINARY CATH D/C PRN PO UNABLE TO VOID; Start 12/05/18 at 21:30 Aspirin (Halfprin) 81 mg BID PO Last administered on 12/30/18 09:24; Admin Dose 81 MG; Start 12/06/18 at 09:00 Nystatin (Nystatin Powder) 1 applic BID TOP Last administered on 12/30/18 09:4 0; Admin Dose 1 APPLIC; Start 12/12/18 at 21:00 Albuterol (Proventil 0.083% (Neb)) 2.5 mg Q2H RESP THERAPY PRN HHN SHORTNESS OF BREATH; Start 12/15/18 at 12:00 Lidocaine (Lidoderm) 1 patch DAILY TD Last administered on 12/30/18 09:36; Admin Dose 1 PATCH; Start 12/15/18 at 12:00 Alteplase, Recombinant (Cathflo (Activase)) 2 mg MAY REPEAT X1 PRN CATHETER IF CATHETER REMAINS OCCULUDED Last administered on 12/17/18 13:20; Admin Dose 2 MG; Start 12/17/18 at 08:30 Gabapentin (Neurontin) 300 mg TID PO Last administered on 12/30/18 13:42; Admin Dose 300 MG; Start 12/22/18 at 13:00 Methocarbamol (Robaxin) 750 mg TID PO Last administered on 12/30/18at 13:41; Admin Dose 750 MG; Start 12/28/18 at 13:00 Linezolid (Zyvox) 600 mg BID PO Last administered on 12/30/18at 09:28; Admin Dose 600 MG; Start 12/28/18 at 15:00 Meropenem/Sodium Chloride 50 ml @ 100 mls/hr Q12 IVPB Last administered on 12/30/18at 09:18; Admin Dose 100 MLS/HR; Start 12/28/18 at 21:00 Acetaminophen (Tylenol Tab) 1,000 mg Q6 PRN PO pain Last administered on 12/30/18at 01:38; Admin Dose 1,000 MG; Start 12/28/18 at 21:30 Alteplase, Recombinant (Cathflo (Activase)) 2 mg MAY REPEAT X1 PRN CATHETER IF CATHETER REMAINS OCCULUDED Last administered on 12/29/18at 16:53; Admin Dose 2 MG; Start 12/29/18 at 16:00 Sodium Hypochlorite (Dakins Diluted ()) 1 applic DAILY TP ; Start 12/30/18 at 13:00 TERESA COSBY Dec 30, 2018 15:23
[2018-12-30 20:15] VITALS: BP 136/75; PULSE 72; RESP 17
[2018-12-31 02:55] VITALS: BP 142/72; PULSE 77; RESP 17
[2018-12-31 07:40] VITALS: BP 115/56; PULSE 71; RESP 18
[2018-12-31] MEDS: POLYETHYLENE GLYCOL 17 GM PACKET PO SCH (09:00)
[2018-12-31] MEDS: SENNA TAB PO SCH ×2 (09:00→21:00)
[2018-12-31] MEDS: LIDOCAINE 5% PATCH TD SCH (09:00)
[2018-12-31] MEDS: VITAMIN B COMPLEX/VIT C CAP PO SCH (09:16)
[2018-12-31] MEDS: LEVOTHYROXINE 100 MCG TAB PO SCH (09:16)
[2018-12-31] MEDS: PANTOPRAZOLE (EC) 40 MG TAB PO SCH (09:16)
[2018-12-31] MEDS: FISH OIL 1,000 MG CAP PO SCH (09:17)
[2018-12-31] MEDS: CHOLECALCIFEROL 1,000 UNIT TAB PO SCH (09:17)
[2018-12-31] MEDS: LISINOPRIL 5 MG TAB PO SCH (09:17)
[2018-12-31] MEDS: BUPROPION (XL) 150 MG TAB PO SCH (09:17)
[2018-12-31] MEDS: MULTIVITAMINS THERAPEUTIC TAB PO SCH (09:17)
[2018-12-31] MEDS: ZYVOX 600 MG TAB PO SCH ×2 (09:17→20:52)
[2018-12-31] MEDS: METHOCARBAMOL 750 MG TAB PO SCH ×3 (09:17→20:53)
[2018-12-31] MEDS: ASCORBIC ACID 500 MG TAB PO SCH ×2 (09:17→20:53)
[2018-12-31] MEDS: ASPIRIN (EC) 81 MG TAB PO SCH ×2 (09:17→20:53)
[2018-12-31] MEDS: GABAPENTIN 300 MG CAP PO SCH ×3 (09:18→20:53)
[2018-12-31] MEDS: MEROPENEM 1 GM/50ML(PMX) 50 ML IVPB SCH ×2 (09:18→20:53)
[2018-12-31] MEDS: DAKINS 0.0125%(1/40) 473 ML SOLUTION TP SCH ×2 (09:22→20:58)
[2018-12-31] MEDS: NYSTATIN 30 GM POWDER BTL TOP SCH ×2 (09:22→20:53)
--- NOTE | 2018-12-31 11:40 | CONS ---
Assessment/Plan Assessment/Plan Hospital Course (Demo Recall) All noted. No acute changes, afebrile Antimicrobials: Merrem, Zyvox Microbiology: Blood culture on admission grew strep, urine culture grew E. coli, MRSA swab negative, repeat blood cultures negative. Sacral wound cx + VRE/Proteus/Strep 2D echo revealed no vegetations Physical examination: This is well-developed well-nourished elderly woman who is alert in no distress. Head atraumatic normocephalic neck is supple. Chest rise symmetrical breath sounds clear. Heart: S1-S2. Abdomen soft, bowel tones present. Extremities wnl Assessment: 1. Fevers ?etiology r/o infected PICC vs 2 to sacral wound 2. Status post sepsis, present on admission 3. S/p streptococcal bacteremia 2 to #4 4. 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 S/p urinary tract infection 6. History of left total knee replacement 7. History of multilevel discectomy and posterior fusion from L1-L3, please see CT in the chart Plan: Clinically unchanged, stable, bld and urine cx neg, wbc decreased, wound cx noted, continue antibiotics, pending surgical eval for poss sacral wound debridement Consultation Date/Type/Reason Admit Date/Time Dec 01, 2018 at 19:24 Initial Consult Date Type of Consult id Date/Time of Note DATE: 12/31/18 TIME: 11:39 Exam/Review of Systems Exam Vitals Vital Signs Date Temp Pulse Resp B/P (MAP) Pulse Ox O2 O2 Flow FiO2 Time Delivery Rate 12/31/18 99.1 71 18 115/56 94 Room Air 07:40 (75) Intake and Output 12/30/18 12/30/18 12/31/18 1515:00 23:00 07:00 IntakeIntake Total 530 ml 855 ml 200 ml BalanceBalance 530 ml 855 ml 200 ml Results Result Diagram: 12/31/18 0438 12/31/18 0438 Results 24hrs Laboratory Tests Test 12/31/18 04:38 White Blood Count 9.2 Red Blood Count 3.52 L Hemoglobin 9.1 L Hematocrit 29.6 L Mean Corpuscular Volume 84.1 Mean Corpuscular Hemoglobin 25.9 L Mean Corpuscular Hemoglobin Concent 30.7 L Red Cell Distribution Width 17.7 H Platelet Count 356 Mean Platelet Volume 9.8 Immature Granulocytes % 1.100 H Neutrophils % 70.2 Lymphocytes % 14.8 L Monocytes % 11.3 H Eosinophils % 1.9 Basophils % 0.7 Nucleated Red Blood Cells % 0.0 Immature Granulocytes # 0.100 H Neutrophils # 6.5 Lymphocytes # 1.4 Monocytes # 1.0 H Eosinophils # 0.2 Basophils # 0.1 Nucleated Red Blood Cells # 0.0 Sodium Level 140 Potassium Level 4.2 Chloride Level 105 Carbon Dioxide Level 27 Anion Gap 8 Blood Urea Nitrogen 9 Creatinine 0.53 Est Glomerular Filtrat Rate mL/min Glucose Level 134 Calcium Level 9.1 Medications Medication Current Medications Albuterol (Ventolin Hfa) 2 puff Q4H PRN INH WHEEZING AND SOB; Start 12/01/18 at 21:00; Status Hold Ascorbic Acid (Vitamin C) 500 mg BID PO Last administered on 12/31/18 09:17; Admin Dose 500 MG; Start 12/01/18 at 21:00 Bupropion HCl (Wellbutrin Xl) 300 mg DAILY PO Last administered on 12/31/18 09:17; Admin Dose 300 MG; Start 12/02/18 at 09:00 Cholecalciferol (Vitamin D) 1,000 unit DAILY PO Last administered on 12/31/18 09:17; Admin Dose 1,000 UNIT; Start 12/02/18 at 09:00 Diclofenac Sodium (Voltaren 1% Gel) 2 gm TID PRN TP PAIN; Start 12/01/18 at 21:00 Levothyroxine Sodium (Synthroid) 100 mcg BEFORE BREAKFAST PO Last administered on 12/31/18 09:16; Admin Dose 100 MCG; Start 12/02/18 at 07:00 Lisinopril (Zestril) 5 mg DAILY PO Last administered on 12/31/18 09:17; Admin Dose 5 MG; Start 12/02/18 at 09:00 Magnesium Hydroxide (Milk Of Mag) 30 ml DAILY PRN PO CONSTIPATION; Start 12/01/18 at 21:00 Multivitamins Therapeutic (Theragran) 1 tab DAILY PO Last administered on 12/31/18 09:17; Admin Dose 1 TAB; Start 12/02/18 at 09:00 Polyethylene Glycol (Miralax) 17 gm DAILY PO Last administered on 12/29/18 08:33; Admin Dose 17 GM; Start 12/02/18 at 09:00 Senna (Senokot) 1 tab BID PO Last administered on 12/29/18 20:32; Admin Dose 1 TAB; Start 12/01/18 at 21:00 Vitamin B Complex/ Vitamin C (Berocca) 1 cap DAILY PO Last administered on 12/31/18 09:16; Admin Dose 1 CAP; Start 12/02/18 at 09:00 Fish Oil (Fish Oil) 1,000 mg DAILY PO Last administered on 12/31/18 09:17; Admin Dose 1,000 MG; Start 12/02/18 at 09:00 Docusate Sodium (Colace) 100 mg Q12H PRN PO .CONSTIPATION; Start 12/01/18 at 22:00 Bisacodyl (Dulcolax) 5 mg DAILY PRN PO .CONSTIPATION; Start 12/01/18 at 22:00 Lidocaine (Xylocaine 1% (Mpf)) 30 ml ONCE PRN INJ aspiration ; Start 12/04/18 at 17:30 IV Flush (NS 3 ml) 3 ml PER PROTOCOL IV ; Start 12/05/18 at 21:30 Oxycodone HCl (Roxicodone) 15 mg Q4H PRN PO .PAIN Last administered on 12/30/18 t 13:42; Admin Dose 5 MG; Start 12/05/18 at 21:30 Oxycodone HCl (Roxicodone) 10 mg Q4H PRN PO .PAIN Last administered on 12/18/18 03:37; Admin Dose 10 MG; Start 12/05/18 at 21:30 Oxycodone HCl (Roxicodone) 5 mg Q4H PRN PO .PAIN Last administered on 12/30/18 01:22; Admin Dose 5 MG; Start 12/05/18 at 21:30 Hydromorphone HCl (Dilaudid) 1 mg Q3H PRN IV .BREAKTHROUGH PAIN Last administered on 12/06/18 06:58; Admin Dose 1 MG; Start 12/05/18 at 21:30 Ondansetron HCl (Zofran Inj) 4 mg Q4H PRN IV NAUSEA/VOMITING; Start 12/06/18 at 21:30 Pantoprazole (Protonix Tab) 40 mg DAILY@06 PO Last administered on 12/31/18 09:16; Admin Dose 40 MG; Start 12/07/18 at 06:00 Simethicone (Mylicon) 80 mg TID PRN PO .GAS; Start 12/05/18 at 21:30 Senna/Docusate Sodium (Senokot-S) 2 tab BID PRN PO .CONSTIPATION Last administered on 12/06/18 08:54; Admin Dose 2 TAB; Start 12/05/18 at 21:30 Magnesium Hydroxide (Milk Of Mag) 30 ml HS PRN PO .CONSTIPATION; Start 12/05/18 at 21:30 Bisacodyl (Dulcolax Supp) 10 mg DAILY PRN [place] .CONSTIPATION; Start 12/05/18 at 21:30 Sodium Biphosphate/ Sodium Phosphate (Fleet Enema) 133 ml DAILY PRN [place] .CONSTIPATION; Start 12/05/18 at 21:30 Diphenhydramine HCl (Benadryl) 25 mg Q4H PRN IV .ITCHING; Start 12/05/18 at 21:30 Naloxone HCl (Narcan) 0.2 mg Q2M PRN IV .RESP RATE; Start 12/05/18 at 21:30 Bethanechol Chloride (Urecholine) 25 mg URINARY CATH D/C PRN PO UNABLE TO VOID; Start 12/05/18 at 21:30 Aspirin (Halfprin) 81 mg BID PO Last administered on 12/31/18 09:17; Admin Dose 81 MG; Start 12/06/18 at 09:00 Nystatin (Nystatin Powder) 1 applic BID TOP Last administered on 12/31/18 09:22; Admin Dose 1 APPLIC; Start 12/12/18 at 21:00 Albuterol (Proventil 0.083% (Neb)) 2.5 mg Q2H RESP THERAPY PRN HHN SHORTNESS OF BREATH; Start 12/15/18 at 12:00 Lidocaine (Lidoderm) 1 patch DAILY TD Last administered on 12/30/18 09:36; Admin Dose 1 PATCH; Start 12/15/18 at 12:00 Alteplase, Recombinant (Cathflo (Activase)) 2 mg MAY REPEAT X1 PRN CATHETER IF CATHETER REMAINS OCCULUDED Last administered on 12/17/18at 13:20; Admin Dose 2 MG; Start 12/17/18 at 08:30 Gabapentin (Neurontin) 300 mg TID PO Last administered on 12/31/18 09:18; Admin Dose 300 MG; Start 12/22/18 at 13:00 Methocarbamol (Robaxin) 750 mg TID PO Last administered on 12/31/18 09:17; Admin Dose 750 MG; Start 12/28/18 at 13:00 Linezolid (Zyvox) 600 mg BID PO Last administered on 12/31/18 09:17; Admin Dose 600 MG; Start 12/28/18 at 15:00 Meropenem/Sodium Chloride 50 ml @ 100 mls/hr Q12 IVPB Last administered on 12/31/18 09:18; Admin Dose 100 MLS/HR; Start 12/28/18 at 21:00 Acetaminophen (Tylenol Tab) 1,000 mg Q6 PRN PO pain Last administered on 12/30/18 01:38; Admin Dose 1,000 MG; Start 12/28/18 at 21:30 Alteplase, Recombinant (Cathflo (Activase)) 2 mg MAY REPEAT X1 PRN CATHETER IF CATHETER REMAINS OCCULUDED Last administered on 12/29/18 16:53; Admin Dose 2 MG; Start 12/29/18 at 16:00 Sodium Hypochlorite (Dakins Diluted ()) 1 applic DAILY TP Last administered on 12/31/18 09:22; Admin Dose 1 APPLIC; Start 12/30/18 at 13:00 OZZIE SOLOMON NP Dec 31, 2018 11:40
[2018-12-31] MEDS: oxyCODONE 5 MG TAB PO PRN (11:56)
[2018-12-31 14:18] VITALS: BP 100/60; PULSE 80; RESP 18
--- NOTE | 2018-12-31 14:30 | CONS ---
Assessment/Plan Assessment/Plan Hospital Course (Demo Recall) Preoperative cardiac risk stratification Septic arthritis status post surgery 12/05/2018 Preserved ejection fraction Hypertension -Denies symptoms of chest pain, shortness of breath or palpitations. -BP trend overall well controlled. Continue lisinopril as needed Consultation Date/Type/Reason Admit Date/Time Dec 01, 2018 at 19:24 Initial Consult Date 12/04/18 Type of Consult Cardiology Date/Time of Note DATE: 12/31/18 TIME: 14:30 24 HR Interval Summary Free Text/Dictation No shortness of breath, chest pain, palpitations Exam/Review of Systems Vital Signs Vitals Vital Signs Date Temp Pulse Resp B/P (MAP) Pulse Ox O2 O2 Flow FiO2 Time Delivery Rate 12/31/18 97.6 80 18 100/60 95 Room Air 14:18 (73) Intake and Output 12/30/18 12/30/18 12/31/18 1515:00 23:00 07:00 IntakeIntake Total 530 ml 855 ml 200 ml BalanceBalance 530 ml 855 ml 200 ml Exam Constitutional: alert, oriented (No apparent distress) Head: normocephalic Respiratory: other (Coarse breath sounds bilaterally, no wheezing) Cardiovascular: regular rate and rhythm (S1-S2 heard) Gastrointestinal: soft, non-tender, bowel sounds Extremities: other (No significant edema) Labs Result Diagram: 12/31/18 0438 12/31/18 0438 Results 24hrs Laboratory Tests Test 12/31/18 04:38 White Blood Count 9.2 Red Blood Count 3.52 L Hemoglobin 9.1 L Hematocrit 29.6 L Mean Corpuscular Volume 84.1 Mean Corpuscular Hemoglobin 25.9 L Mean Corpuscular Hemoglobin Concent 30.7 L Red Cell Distribution Width 17.7 H Platelet Count 356 Mean Platelet Volume 9.8 Immature Granulocytes % 1.100 H Neutrophils % 70.2 Lymphocytes % 14.8 L Monocytes % 11.3 H Eosinophils % 1.9 Basophils % 0.7 Nucleated Red Blood Cells % 0.0 Immature Granulocytes # 0.100 H Neutrophils # 6.5 Lymphocytes # 1.4 Monocytes # 1.0 H Eosinophils # 0.2 Basophils # 0.1 Nucleated Red Blood Cells # 0.0 Sodium Level 140 Potassium Level 4.2 Chloride Level 105 Carbon Dioxide Level 27 Anion Gap 8 Blood Urea Nitrogen 9 Creatinine 0.53 Est Glomerular Filtrat Rate mL/min Glucose Level 134 Calcium Level 9.1 Medications Medications Current Medications Albuterol (Ventolin Hfa) 2 puff Q4H PRN INH WHEEZING AND SOB; Start 12/01/18 at 21:00; Status Hold Ascorbic Acid (Vitamin C) 500 mg BID PO Last administered on 12/31/18 09:17; Admin Dose 500 MG; Start 12/01/18 at 21:00 Bupropion HCl (Wellbutrin Xl) 300 mg DAILY PO Last administered on 12/31/18 09:17; Admin Dose 300 MG; Start 12/02/18 at 09:00 Cholecalciferol (Vitamin D) 1,000 unit DAILY PO Last administered on 12/31/18 09:17; Admin Dose 1,000 UNIT; Start 12/02/18 at 09:00 Diclofenac Sodium (Voltaren 1% Gel) 2 gm TID PRN TP PAIN; Start 12/01/18 at 21:00 Levothyroxine Sodium (Synthroid) 100 mcg BEFORE BREAKFAST PO Last administered on 12/31/18 09:16; Admin Dose 100 MCG; Start 12/02/18 at 07:00 Lisinopril (Zestril) 5 mg DAILY PO Last administered on 12/31/18 09:17; Admin Dose 5 MG; Start 12/02/18 at 09:00 Magnesium Hydroxide (Milk Of Mag) 30 ml DAILY PRN PO CONSTIPATION; Start 12/01/18 at 21:00 Multivitamins Therapeutic (Theragran) 1 tab DAILY PO Last administered on 12/31/18 09:17; Admin Dose 1 TAB; Start 12/02/18 at 09:00 Polyethylene Glycol (Miralax) 17 gm DAILY PO Last administered on 12/29/18 08:33; Admin Dose 17 GM; Start 12/02/18 at 09:00 Senna (Senokot) 1 tab BID PO Last administered on 12/29/18 20:32; Admin Dose 1 TAB; Start 12/01/18 at 21:00 Vitamin B Complex/ Vitamin C (Berocca) 1 cap DAILY PO Last administered on 12/31/18 09:16; Admin Dose 1 CAP; Start 12/02/18 at 09:00 Fish Oil (Fish Oil) 1,000 mg DAILY PO Last administered on 4/23/19at 09:17; Admin Dose 1,000 MG; Start 12/02/18 at 09:00 Docusate Sodium (Colace) 100 mg Q12H PRN PO .CONSTIPATION; Start 12/01/18 at 22:00 Bisacodyl (Dulcolax) 5 mg DAILY PRN PO .CONSTIPATION; Start 12/01/18 at 22:00 Lidocaine (Xylocaine 1% (Mpf)) 30 ml ONCE PRN INJ aspiration ; Start 12/04/18 at 17:30 IV Flush (NS 3 ml) 3 ml PER PROTOCOL IV ; Start 12/05/18 at 21:30 Oxycodone HCl (Roxicodone) 15 mg Q4H PRN PO .PAIN Last administered on 12/30/18 13:42; Admin Dose 5 MG; Start 12/05/18 at 21:30 Oxycodone HCl (Roxicodone) 10 mg Q4H PRN PO .PAIN Last administered on 12/18/18 03:37; Admin Dose 10 MG; Start 12/05/18 at 21:30 Oxycodone HCl (Roxicodone) 5 mg Q4H PRN PO .PAIN Last administered on 12/31/18 11:56; Admin Dose 5 MG; Start 12/05/18 at 21:30 Hydromorphone HCl (Dilaudid) 1 mg Q3H PRN IV .BREAKTHROUGH PAIN Last administered on 12/06/18 06:58; Admin Dose 1 MG; Start 12/05/18 at 21:30 Ondansetron HCl (Zofran Inj) 4 mg Q4H PRN IV NAUSEA/VOMITING; Start 12/06/18 at 21:30 Pantoprazole (Protonix Tab) 40 mg DAILY@06 PO Last administered on 12/31/18 09:16; Admin Dose 40 MG; Start 12/07/18 at 06:00 Simethicone (Mylicon) 80 mg TID PRN PO .GAS; Start 12/05/18 at 21:30 Senna/Docusate Sodium (Senokot-S) 2 tab BID PRN PO .CONSTIPATION Last administered on 12/06/18 08:54; Admin Dose 2 TAB; Start 12/05/18 at 21:30 Magnesium Hydroxide (Milk Of Mag) 30 ml HS PRN PO .CONSTIPATION; Start 12/05/18 at 21:30 Bisacodyl (Dulcolax Supp) 10 mg DAILY PRN [place] .CONSTIPATION; Start 12/05/18 at 21:30 Sodium Biphosphate/ Sodium Phosphate (Fleet Enema) 133 ml DAILY PRN [place] .CONSTIPATION; Start 12/05/18 at 21:30 Diphenhydramine HCl (Benadryl) 25 mg Q4H PRN IV .ITCHING; Start 12/05/18 at 21:30 Naloxone HCl (Narcan) 0.2 mg Q2M PRN IV .RESP RATE; Start 12/05/18 at 21:30 Bethanechol Chloride (Urecholine) 25 mg URINARY CATH D/C PRN PO UNABLE TO VOID; Start 12/05/18 at 21:30 Aspirin (Halfprin) 81 mg BID PO Last administered on 12/31/18 09:17; Admin Dose 81 MG; Start 12/06/18 at 09:00 Nystatin (Nystatin Powder) 1 applic BID TOP Last administered on 12/31/18 09:22; Admin Dose 1 APPLIC; Start 12/12/18 at 21:00 Albuterol (Proventil 0.083% (Neb)) 2.5 mg Q2H RESP THERAPY PRN HHN SHORTNESS OF BREATH; Start 12/15/18 at 12:00 Lidocaine (Lidoderm) 1 patch DAILY TD Last administered on 12/30/18 09:36; Admin Dose 1 PATCH; Start 12/15/18 at 12:00 Alteplase, Recombinant (Cathflo (Activase)) 2 mg MAY REPEAT X1 PRN CATHETER IF CATHETER REMAINS OCCULUDED Last administered on 12/17/18 13:20; Admin Dose 2 MG; Start 12/17/18 at 08:30 Gabapentin (Neurontin) 300 mg TID PO Last administered on 12/31/18 12:49; Adm in Dose 300 MG; Start 12/22/18 at 13:00 Methocarbamol (Robaxin) 750 mg TID PO Last administered on 12/31/18 12:50; Admin Dose 750 MG; Start 12/28/18 at 13:00 Linezolid (Zyvox) 600 mg BID PO Last administered on 12/31/18 09:17; Admin Dose 600 MG; Start 12/28/18 at 15:00 Meropenem/Sodium Chloride 50 ml @ 100 mls/hr Q12 IVPB Last administered on 12/31/18 09:18; Admin Dose 100 MLS/HR; Start 12/28/18 at 21:00 Acetaminophen (Tylenol Tab) 1,000 mg Q6 PRN PO pain Last administered on 12/30/18 01:38; Admin Dose 1,000 MG; Start 12/28/18 at 21:30 Alteplase, Recombinant (Cathflo (Activase)) 2 mg MAY REPEAT X1 PRN CATHETER IF CATHETER REMAINS OCCULUDED Last administered on 12/29/18at 16:53; Admin Dose 2 MG; Start 12/29/18 at 16:00 Sodium Hypochlorite (Dakins Diluted ()) 1 applic DAILY TP Last administered on 12/31/18 09:22; Admin Dose 1 APPLIC; Start 12/30/18 at 13:00 Martin Kelley DO Dec 31, 2018 14:30
--- NOTE | 2018-12-31 15:38 | PN ---
Date/Time of Note Date/Time of Note DATE: 12/31/18 TIME: 15:34 Assessment/Plan VTE Prophylaxis Risk score (from Ns)>0 risk: 6 SCD applied (from Ns): Yes Pharmacological prophylaxis: NA/contraindicated Pharm contraindication: low risk/ambulating Lines/Catheters Urinary Cath still in place: No Assessment/Plan Hospital Course 1. Sepsis secondary secondary to decubitus ulcers and/or PICC line infection - Repeat sacral wound cultures continue to show Proteus and VRE -Recent blood cultures are negative - ID on board and appreciate recommendations. Concerns for line infection and will check blood cultures from PICC line site. If continue to spike elevated fevers, will need replacement of PICC 2. Septic R knee joint s/p I&D on 12/05/18- resolved - remains stable and incision site clean and dry - Continues to work with PT. - Ortho on board and recommendations appreciated. Continue IV antibiotics until 01/18 then will need to continue PO antibiotics - pain control 3. Left leg muscle spasm - Robaxin TID - replacing K 4. Sacral wound - repeat cultures continue to show VRE and Proteus -Previous hospitalist discussed with patient and son importance of airloss bed to prevent further breakdown of wound, was refused, using waffle cushion when in bedside chair -Wound care is recommending surgical consultation for debridement, consultation with Dr. Nation requested 5. Chronic spinal disease - h/o significant stenosis of her spine. Lumbar spine and thoracic spine CT show signs of stenosis though no acute fractures. - continue lidocaine patch 6. osteoarthritis - pain control 7. urinary tract infection- treated - Cultures growing ecoli and lactobacillus - asymptomatic 8. Strep Bacteremia - continue current antibiotics - repeat cultures negative 9. Mechanical fall 10. Disposition - CM on board for SNF placement Result Diagram: 12/31/188 12/31/188 Results 24hrs Laboratory Tests Test 12/31/18 04:38 White Blood Count 9.2 Red Blood Count 3.52 L Hemoglobin 9.1 L Hematocrit 29.6 L Mean Corpuscular Volume 84.1 Mean Corpuscular Hemoglobin 25.9 L Mean Corpuscular Hemoglobin Concent 30.7 L Red Cell Distribution Width 17.7 H Platelet Count 356 Mean Platelet Volume 9.8 Immature Granulocytes % 1.100 H Neutrophils % 70.2 Lymphocytes % 14.8 L Monocytes % 11.3 H Eosinophils % 1.9 Basophils % 0.7 Nucleated Red Blood Cells % 0.0 Immature Granulocytes # 0.100 H Neutrophils # 6.5 Lymphocytes # 1.4 Monocytes # 1.0 H Eosinophils # 0.2 Basophils # 0.1 Nucleated Red Blood Cells # 0.0 Sodium Level 140 Potassium Level 4.2 Chloride Level 105 Carbon Dioxide Level 27 Anion Gap 8 Blood Urea Nitrogen 9 Creatinine 0.53 Est Glomerular Filtrat Rate mL/min Glucose Level 134 Calcium Level 9.1 Subjective 24 Hr Interval Summary Constitutional: no complaints Exam/Review of Systems Exam Vitals Vital Signs Date Temp Pulse Resp B/P (MAP) Pulse Ox O2 O2 Flow FiO2 Time Delivery Rate 12/31/18 97.6 80 18 100/60 95 Room Air 14:18 (73) Intake and Output 12/30/18 12/30/18 12/31/18 1515:00 23:00 07:00 IntakeIntake Total 530 ml 855 ml 200 ml BalanceBalance 530 ml 855 ml 200 ml Constitutional: alert, oriented Respiratory: clear to auscultation Cardiovascular: regular rate and rhythm Gastrointestinal: soft; No distended Musculoskeletal: nl extremities to inspection Results Results 24hrs Laboratory Tests Test 12/31/18 04:38 White Blood Count 9.2 Red Blood Count 3.52 L Hemoglobin 9.1 L Hematocrit 29.6 L Mean Corpuscular Volume 84.1 Mean Corpuscular Hemoglobin 25.9 L Mean Corpuscular Hemoglobin Concent 30.7 L Red Cell Distribution Width 17.7 H Platelet Count 356 Mean Platelet Volume 9.8 Immature Granulocytes % 1.100 H Neutrophils % 70.2 Lymphocytes % 14.8 L Monocytes % 11.3 H Eosinophils % 1.9 Basophils % 0.7 Nucleated Red Blood Cells % 0.0 Immature Granulocytes # 0.100 H Neutrophils # 6.5 Lymphocytes # 1.4 Monocytes # 1.0 H Eosinophils # 0.2 Basophils # 0.1 Nucleated Red Blood Cells # 0.0 Sodium Level 140 Potassium Level 4.2 Chloride Level 105 Carbon Dioxide Level 27 Anion Gap 8 Blood Urea Nitrogen 9 Creatinine 0.53 Est Glomerular Filtrat Rate mL/min Glucose Level 134 Calcium Level 9.1 Medications Medication Current Medications Albuterol (Ventolin Hfa) 2 puff Q4H PRN INH WHEEZING AND SOB; Start 12/01/18 at 21:00; Status Hold Ascorbic Acid (Vitamin C) 500 mg BID PO Last administered on 12/31/18 09:17; Admin Dose 500 MG; Start 12/01/18 at 21:00 Bupropion HCl (Wellbutrin Xl) 300 mg DAILY PO Last administered on 12/31/18 09:17; Admin Dose 300 MG; Start 12/02/18 at 09:00 Cholecalciferol (Vitamin D) 1,000 unit DAILY PO Last administered on 12/31/18 09:17; Admin Dose 1,000 UNIT; Start 12/02/18 at 09:00 Diclofenac Sodium (Voltaren 1% Gel) 2 gm TID PRN TP PAIN; Start 12/01/18 at 21:00 Levothyroxine Sodium (Synthroid) 100 mcg BEFORE BREAKFAST PO Last administered on 12/31/18 09:16; Admin Dose 100 MCG; Start 12/02/18 at 07:00 Lisinopril (Zestril) 5 mg DAILY PO Last administered on 12/31/18 09:17; Admin Dose 5 MG; Start 12/02/18 at 09:00 Magnesium Hydroxide (Milk Of Mag) 30 ml DAILY PRN PO CONSTIPATION; Start 12/01/18 at 21:00 Multivitamins Therapeutic (Theragran) 1 tab DAILY PO Last administered on 12/31/18 09:17; Admin Dose 1 TAB; Start 12/02/18 at 09:00 Polyethylene Glycol (Miralax) 17 gm DAILY PO Last administered on 12/29/18 08:33; Admin Dose 17 GM; Start 12/02/18 at 09:00 Senna (Senokot) 1 tab BID PO Last administered on 12/29/18 20:32; Admin Dose 1 TAB; Start 12/01/18 at 21:00 Vitamin B Complex/ Vitamin C (Berocca) 1 cap DAILY PO Last administered on 12/31/18 09:16; Admin Dose 1 CAP; Start 12/02/18 at 09:00 Fish Oil (Fish Oil) 1,000 mg DAILY PO Last administered on 12/31/18 09:17; Admin Dose 1,000 MG; Start 12/02/18 at 09:00 Docusate Sodium (Colace) 100 mg Q12H PRN PO .CONSTIPATION; Start 12/01/18 at 22:00 Bisacodyl (Dulcolax) 5 mg DAILY PRN PO .CONSTIPATION; Start 12/01/18 at 22:00 Lidocaine (Xylocaine 1% (Mpf)) 30 ml ONCE PRN INJ aspiration ; Start 12/04/18 at 17:30 IV Flush (NS 3 ml) 3 ml PER PROTOCOL IV ; Start 12/05/18 at 21:30 Oxycodone HCl (Roxicodone) 15 mg Q4H PRN PO .PAIN Last administered on 12/10 13:42; Admin Dose 5 MG; Start 12/05/18 at 21:30 Oxycodone HCl (Roxicodone) 10 mg Q4H PRN PO .PAIN Last administered on 12/18/18 03:37; Admin Dose 10 MG; Start 12/05/18 at 21:30 Oxycodone HCl (Roxicodone) 5 mg Q4H PRN PO .PAIN Last administered on 12/31/18 11:56; Admin Dose 5 MG; Start 12/05/18 at 21:30 Hydromorphone HCl (Dilaudid) 1 mg Q3H PRN IV .BREAKTHROUGH PAIN Last administered on 12/06/18 06:58; Admin Dose 1 MG; Start 12/05/18 at 21:30 Ondansetron HCl (Zofran Inj) 4 mg Q4H PRN IV NAUSEA/VOMITING; Start 12/06/18 at 21:30 Pantoprazole (Protonix Tab) 40 mg DAILY@06 PO Last administered on 12/31/18 09:16; Admin Dose 40 MG; Start 12/07/18 at 06:00 Simethicone (Mylicon) 80 mg TID PRN PO .GAS; Start 12/05/18 at 21:30 Senna/Docusate Sodium (Senokot-S) 2 tab BID PRN PO .CONSTIPATION Last administered on 12/06/18 08:54; Admin Dose 2 TAB; Start 12/05/18 at 21:30 Magnesium Hydroxide (Milk Of Mag) 30 ml HS PRN PO .CONSTIPATION; Start 12/05/18 at 21:30 Bisacodyl (Dulcolax Supp) 10 mg DAILY PRN [place] .CONSTIPATION; Start 12/05/18 at 21:30 Sodium Biphosphate/ Sodium Phosphate (Fleet Enema) 133 ml DAILY PRN [place] .CONSTIPATION; Start 12/05/18 at 21:30 Diphenhydramine HCl (Benadryl) 25 mg Q4H PRN IV .ITCHING; Start 12/05/18 at 21:30 Naloxone HCl (Narcan) 0.2 mg Q2M PRN IV .RESP RATE; Start 12/05/18 at 21:30 Bethanechol Chloride (Urecholine) 25 mg URINARY CATH D/C PRN PO UNABLE TO VOID; Start 12/05/18 at 21:30 Aspirin (Halfprin) 81 mg BID PO Last administered on 12/31/18 09:17; Admin Dose 81 MG; Start 12/06/18 at 09:00 Nystatin (Nystatin Powder) 1 applic BID TOP Last administered on 12/31/18 09:22; Admin Dose 1 APPLIC; Start 12/12/18 at 21:00 Albuterol (Proventil 0.083% (Neb)) 2.5 mg Q2H RESP THERAPY PRN HHN SHORTNESS OF BREATH; Start 12/15/18 at 12:00 Lidocaine (Lidoderm) 1 patch DAILY TD Last administered on 12/30/18 09:36; Admin Dose 1 PATCH; Start 12/15/18 at 12:00 Alteplase, Recombinant (Cathflo (Activase)) 2 mg MAY REPEAT X1 PRN CATHETER IF CATHETER REMAINS OCCULUDED Last administered on 12/17/18 13:20; Admin Dose 2 MG; Start 12/17/18 at 08:30 Gabapentin (Neurontin) 300 mg TID PO Last administered on 12/31/18 12:49; Admin Dose 300 MG; Start 12/22/18 at 13:00 Methocarbamol (Robaxin) 750 mg TID PO Last administered on 12/31/18 12:50; Admin Dose 750 MG; Start 12/28/18 at 13:00 Linezolid (Zyvox) 600 mg BID PO Last administered on 12/31/18 09:17; Admin Dose 600 MG; Start 12/28/18 at 15:00 Meropenem/Sodium Chloride 50 ml @ 100 mls/hr Q12 IVPB Last administered on 12/31/18 09:18; Admin Dose 100 MLS/HR; Start 12/28/18 at 21:00 Acetaminophen (Tylenol Tab) 1,000 mg Q6 PRN PO pain Last administered on 12/30/18 01:38; Admin Dose 1,000 MG; Start 12/28/18 at 21:30 Alteplase, Recombinant (Cathflo (Activase)) 2 mg MAY REPEAT X1 PRN CATHETER IF CATHETER REMAINS OCCULUDED Last administered on 12/29/18 16:53; Admin Dose 2 MG; Start 12/29/18 at 16:00 Sodium Hypochlorite (Dakins Diluted ()) 1 applic DAILY TP Last administered on 12/31/18at 09:22; Admin Dose 1 APPLIC; Start 12/30/18 at 13:00 TERESA COSBY Dec 31, 2018 15:38
--- NOTE | 2018-12-31 16:05 | CONS ---
Assessment/Plan Assessment/Plan Hospital Course (Demo Recall) 1. Sacral wound: + Wound cultures -debridement -local care -frequent turning and off-loading -low air loss mattress -vitamin c -short term zinc -optimize nutrition 2. Bacteremia: Repeat blood culture: NGTD -Antibiotics per sensitivities 3.Septic right knee joint status post I&D: -Per Ortho 4. Spine disease: Status post spinal surgeries -Supportive 5.UTI: -abx per sensitivity -frequent bladder emptying/cath care 6. Osteoarthritis: -Medical management Thank you. Patient seen and examined in collaboration with Dr. Fernandez Nation. Consultation Date/Type/Reason Admit Date/Time Dec 01, 2018 at 19:24 Date of Consultation: Dec 31, 2018 Type of Consult surgical Reason for Consultation Sacral wound Requesting Provider: TERESA COSBY Date/Time of Note DATE: 12/31/18 TIME: 15:39 Hx of Present Illness Bobbi Baeza is a 73-year-old woman with multiple comorbidities who was brought in by ambulance after sustaining a ground-level fall. She was noted to have a septic right knee joint and is status post IND on 12/05/18. She was also noted to have bacteremia and an infected sacral wound for which she was started on antibiotic therapy. Repeat blood cultures have no growth to date. The sacral wound is noted to have Proteus and VRE. Notably, she is unsure of when she sustained her sacral wound initially. She has history of spinal surgery after which she has had diminished sensation to her left lower extremity and sacral area, hence she was unaware of the wound developing. Se has had min temps and has had moderate drainage and slight odor from the wound. She denies chills, congested cough, chest pain, palpitations, nausea, vomiting, diarrhea, seizure, rash. General surgery was asked to evaluate. 12 point review of systems was performed and is negative except for as stated in HPI. Past Medical History Osteoarthritis Atypical cholinesterase, genotype D-S Home Meds Reported Medications Diclofenac Sodium* (Voltaren* Gel) 1% -100 Gm Gel, 2 GM TOP TID PRN for PAIN, #1 TUB apply to lower back 12/01/18 Cholecalciferol* (Vitamin D3*) 1,000 Unit Tablet, 1000 UNIT PO DAILY, TAB 12/01/18 Ascorbic Acid* (Vitamin C*) 500 Mg Capsule.sa, 500 MG PO BID, CAP 12/01/18 Budesonide-Formoterol Fumarate* (Symbicort*) 160-4.5 Hfa.aer.ad, 2 PUFF INHALATION BID, #1 EACH 12/01/18 Sennosides* (Senna Lax*) 8.6 Mg Tablet, 1 TAB PO BID, TAB 12/01/18 Albuterol Sulfate* (Proair HFA*) 8.5 Gm Hfa.aer.ad, 2 PUFF INH Q4H PRN for WHEEZING AND SOB, #1 INHALER 12/01/18 Polyethylene Glycol* (Miralax*) 17 Gm Powd.pack, 17 GM PO DAILY, #30 PACKET HOLD FOR LOOSE STOOL MIX WITH 4-8oz of fluids 12/01/18 Hydrocodone/Acetaminophen ([place] 5-325 Tablet) 1 Each Tablet, 1 EACH PO Q6 PRN for MOD PAIN 4-7, TAB 12/01/18 Multivitamins* (Theragran*) 1 Tab Tab, 1 TAB PO DAILY, TAB 12/01/18 Lisinopril* (Lisinopril*) 5 Mg Tablet, 5 MG PO DAILY, #30 TAB HOLD FOR SBP<110 12/01/18 Levothyroxine Sodium* (Levoxyl*) 100 Mcg Tablet, 100 MCG PO BEFORE BREAKFAST, #30 TAB 12/01/18 [place]-3/Dha/Epa/Fish Oil (FISH OIL 1,000 MG SOFTGEL) 1 Each Capsule, 1 EACH PO DAILY, CAP 12/01/18 Docusate Sodium* (Colace*) 100 Mg Capsule, 100 MG PO BID, #60 CAP 12/01/18 Calcium Carbonate/Vitamin D3 (OYSTER SHELL 500 MG + VIT D TB) 1 Each Tablet, 1 EACH PO BID, TAB 12/01/18 Bupropion Hcl* (Bupropion XL*) 300 Mg Tab.sr.24h, 300 MG PO DAILY, TAB.SA 12/01/18 Na Phos,M-B/Na Phos,Di-Ba (ENEMA [id number]) 133 Ml Enema, 133 ML RC EVERY 3RD DAY PRN for CONSTIPATION, ENEMA 12/01/18 Bisacodyl (Dulcolax) 10 Mg Supp.rect, 10 MG RC PRN PRN for CONSTIPATION, SUPP.RECT 12/01/18 Magnesium Hydroxide* (Milk Of Magnesia*) 400 Mg/5 Ml Oral.susp, 30 ML PO DAILY PRN for CONSTIPATION, ML 12/01/18 Vitamin B Complex* (Vitamin B Complex*) 1 Each Tablet, 1 TAB PO DAILY, TAB 12/01/18 Acetaminophen* (Acetaminophen*) 650 Mg Tablet, 650 MG PO Q4 PRN for MODERATE PAIN LEVEL 4-6, #30 TAB 12/01/18 Medications Current Medications Albuterol (Ventolin Hfa) 2 puff Q4H PRN INH WHEEZING AND SOB; Start 12/01/18 at 21:00; Status Hold Ascorbic Acid (Vitamin C) 500 mg BID PO Last administered on 12/31/18 09:17; Admin Dose 500 MG; Start 12/01/18 at 21:00 Bupropion HCl (Wellbutrin Xl) 300 mg DAILY PO Last administered on 12/31/18 09:17; Admin Dose 300 MG; Start 12/02/18 at 09:00 Cholecalciferol (Vitamin D) 1,000 unit DAILY PO Last administered on 12/31/18 09:17; Admin Dose 1,000 UNIT; Start 12/02/18 at 09:00 Diclofenac Sodium (Voltaren 1% Gel) 2 gm TID PRN TP PAIN; Start 12/01/18 at 21:00 Levothyroxine Sodium (Synthroid) 100 mcg BEFORE BREAKFAST PO Last administered on 12/31/18 09:16; Admin Dose 100 MCG; Start 12/02/18 at 07:00 Lisinopril (Zestril) 5 mg DAILY PO Last administered on 12/31/18 09:17; Admin Dose 5 MG; Start 12/02/18 at 09:00 Magnesium Hydroxide (Milk Of Mag) 30 ml DAILY PRN PO CONSTIPATION; Start 12/01/18 at 21:00 Multivitamins Therapeutic (Theragran) 1 tab DAILY PO Last administered on 12/31/18 09:17; Admin Dose 1 TAB; Start 12/02/18 at 09:00 Polyethylene Glycol (Miralax) 17 gm DAILY PO Last administered on 12/29/18 08:33; Admin Dose 17 GM; Start 12/02/18 at 09:00 Senna (Senokot) 1 tab BID PO Last administered on 12/29/18 20:32; Admin Dose 1 TAB; Start 12/01/18 at 21:00 Vitamin B Complex/ Vitamin C (Berocca) 1 cap DAILY PO Last administered on 12/31/18 09:16; Admin Dose 1 CAP; Start 12/02/18 at 09:00 Fish Oil (Fish Oil) 1,000 mg DAILY PO Last administered on 12/31/18 09:17; Admin Dose 1,000 MG; Start 12/02/18 at 09:00 Docusate Sodium (Colace) 100 mg Q12H PRN PO .CONSTIPATION; Start 12/01/18 at 22:00 Bisacodyl (Dulcolax) 5 mg DAILY PRN PO .CONSTIPATION; Start 12/01/18 at 22:00 Lidocaine (Xylocaine 1% (Mpf)) 30 ml ONCE PRN INJ aspiration ; Start 12/04/18 at 17:30 IV Flush (NS 3 ml) 3 ml PER PROTOCOL IV ; Start 12/05/18 at 21:30 Oxycodone HCl (Roxicodone) 15 mg Q4H PRN PO .PAIN Last administered on 12/30/18at 13:42; Admin Dose 5 MG; Start 12/05/18 at 21:30 Oxycodone HCl (Roxicodone) 10 mg Q4H PRN PO .PAIN Last administered on 9at 03:37; Admin Dose 10 MG; Start 12/05/18 at 21:30 Oxycodone HCl (Roxicodone) 5 mg Q4H PRN PO .PAIN Last administered on 12/31/18 11:56; Admin Dose 5 MG; Start 12/05/18 at 21:30 Hydromorphone HCl (Dilaudid) 1 mg Q3H PRN IV .BREAKTHROUGH PAIN Last administered on 12/06/18 06:58; Admin Dose 1 MG; Start 12/05/18 at 21:30 Ondansetron HCl (Zofran Inj) 4 mg Q4H PRN IV NAUSEA/VOMITING; Start 12/06/18 at 21:30 Pantoprazole (Protonix Tab) 40 mg DAILY@06 PO Last administered on 12/31/18 09:16; Admin Dose 40 MG; Start 12/07/18 at 06:00 Simethicone (Mylicon) 80 mg TID PRN PO .GAS; Start 12/05/18 at 21:30 Senna/Docusate Sodium (Senokot-S) 2 tab BID PRN PO .CONSTIPATION Last administered on 12/06/18at 08:54; Admin Dose 2 TAB; Start 12/05/18 at 21:30 Magnesium Hydroxide (Milk Of Mag) 30 ml HS PRN PO .CONSTIPATION; Start 12/05/18 at 21:30 Bisacodyl (Dulcolax Supp) 10 mg DAILY PRN OK .CONSTIPATION; Start 12/05/18 at 21:30 Sodium Biphosphate/ Sodium Phosphate (Fleet Enema) 133 ml DAILY PRN OK .CONSTIPATION; Start 12/05/18 at 21:30 Diphenhydramine HCl (Benadryl) 25 mg Q4H PRN IV .ITCHING; Start 12/05/18 at 21:30 Naloxone HCl (Narcan) 0.2 mg Q2M PRN IV .RESP RATE; Start 12/05/18 at 21:30 Bethanechol Chloride (Urecholine) 25 mg URINARY CATH D/C PRN PO UNABLE TO VOID; Start 12/05/18 at 21:30 Aspirin (Halfprin) 81 mg BID PO Last administered on 12/31/18 09:17; Admin Dose 81 MG; Start 12/06/18 at 09:00 Nystatin (Nystatin Powder) 1 applic BID TOP Last administered on 12/31/18 09:22; Admin Dose 1 APPLIC; Start 12/12/18 at 21:00 Albuterol (Proventil 0.083% (Neb)) 2.5 mg Q2H RESP THERAPY PRN HHN SHORTNESS OF BREATH; Start 12/15/18 at 12:00 Lidocaine (Lidoderm) 1 patch DAILY TD Last administered on 12/30/18at 09:36; Admin Dose 1 PATCH; Start 12/15/18 at 12:00 Alteplase, Recombinant (Cathflo (Activase)) 2 mg MAY REPEAT X1 PRN CATHETER IF CATHETER REMAINS OCCULUDED Last administered on 12/17/18at 13:20; Admin Dose 2 MG; Start 12/17/18 at 08:30 Gabapentin (Neurontin) 300 mg TID PO Last administered on 12/31/18at 12:49; Admin Dose 300 MG; Start 12/22/18 at 13:00 Methocarbamol (Robaxin) 750 mg TID PO Last administered on 12/31/18 12:50; Admin Dose 750 MG; Start 12/28/18 at 13:00 Linezolid (Zyvox) 600 mg BID PO Last administered on 12/31/18at 09:17; Admin Dose 600 MG; Start 12/28/18 at 15:00 Meropenem/Sodium Chloride 50 ml @ 100 mls/hr Q12 IVPB Last administered on 12/31/18at 09:18; Admin Dose 100 MLS/HR; Start 12/28/18 at 21:00 Acetaminophen (Tylenol Tab) 1,000 mg Q6 PRN PO pain Last administered on 12/30/18at 01:38; Admin Dose 1,000 MG; Start 12/28/18 at 21:30 Alteplase, Recombinant (Cathflo (Activase)) 2 mg MAY REPEAT X1 PRN CATHETER IF CATHETER REMAINS OCCULUDED Last administered on 12/29/18at 16:53; Admin Dose 2 MG; Start 12/29/18 at 16:00 Sodium Hypochlorite (Dakins Diluted (1/40)) 1 applic DAILY TP Last administered on 12/31/18at 09:22; Admin Dose 1 APPLIC; Start 12/30/18 at 13:00 Allergies: Coded Allergies: Anesthetics - Amide Type (Verified Allergy, Unknown, 12/01/18) Cholinesterase Inhibitor(Carbamate) (Verified Allergy, Unknown, 12/01/18) succinylcholine (Verified Allergy, Unknown, 12/01/18) Uncoded Allergies: HALOGENATED (Allergy, Unknown, 12/01/18) Past Surgical History Appendectomy Upper bowel resection Tonsillectomy Spinal fusion lower back Mononucleosis Left knee knee Shaving, [place] procedure, patellectomy right knee arthroscopy Laminectomy Total hip replacement Shoulder replacement right Right total knee replacement Cervical fusion with plate and 6 screws Tumor removal of ring finger Family History Significant Family History: no pertinent family hx Social History Alcohol Use: none Smoking Status: Former smoker Drug Use: none Exam/Review of Systems Exam Vitals Vital Signs Date Temp Pulse Resp B/P (MAP) Pulse Ox O2 O2 Flow FiO2 Time Delivery Rate 12/31/18 97.6 80 18 100/60 95 Room Air 14:18 (73) Intake and Output 12/30/18 12/30/18 12/31/18 1515:00 23:00 07:00 IntakeIntake Total 530 ml 855 ml 200 ml BalanceBalance 530 ml 855 ml 200 ml Constitutional: alert, oriented Psych: nl mood/affect; No anxiety Head: normocephalic, atraumatic Eyes: nl conjunctiva, EOMI, nl lids, nl sclera ENMT: nl external ears & nose, nl lips & teeth, nl nasal mucosa & septum, mucosa pink and moist Neck: supple, non-tender; No jvd Respiratory: normal air movement; No congested cough Cardiovascular: regular rate and rhythm, nl pulses; No edema Gastrointestinal: soft, non-tender; No distended Genitourinary - Female: nl external genitalia Musculoskeletal: nl extremities to inspection; No nl gait and stance Extremities: normal pulses Neurological: nl mental status, nl speech, nl strength Skin: nl turgor, other (Sacrum: Slough, moderate drainage, minimal odor, minimal periwound erythema) Lymph: nl lymph nodes Results Result Diagram: 12/31/188 12/31/18 0438 Results 24hrs Laboratory Tests Test 12/31/18 04:38 White Blood Count 9.2 Red Blood Count 3.52 L Hemoglobin 9.1 L Hematocrit 29.6 L Mean Corpuscular Volume 84.1 Mean Corpuscular Hemoglobin 25.9 L Mean Corpuscular Hemoglobin Concent 30.7 L Red Cell Distribution Width 17.7 H Platelet Count 356 Mean Platelet Volume 9.8 Immature Granulocytes % 1.100 H Neutrophils % 70.2 Lymphocytes % 14.8 L Monocytes % 11.3 H Eosinophils % 1.9 Basophils % 0.7 Nucleated Red Blood Cells % 0.0 Immature Granulocytes # 0.100 H Neutrophils # 6.5 Lymphocytes # 1.4 Monocytes # 1.0 H Eosinophils # 0.2 Basophils # 0.1 Nucleated Red Blood Cells # 0.0 Sodium Level 140 Potassium Level 4.2 Chloride Level 105 Carbon Dioxide Level 27 Anion Gap 8 Blood Urea Nitrogen 9 Creatinine 0.53 Est Glomerular Filtrat Rate mL/min Glucose Level 134 Calcium Level 9.1 Medications Medication Current Medications Albuterol (Ventolin Hfa) 2 puff Q4H PRN INH WHEEZING AND SOB; Start 12/01/18 at 21:00; Status Hold Ascorbic Acid (Vitamin C) 500 mg BID PO Last administered on 12/31/18at 09:17; Admin Dose 500 MG; Start 12/01/18 at 21:00 Bupropion HCl (Wellbutrin Xl) 300 mg DAILY PO Last administered on 12/31/18 09:17; Admin Dose 300 MG; Start 12/02/18 at 09:00 Cholecalciferol (Vitamin D) 1,000 unit DAILY PO Last administered on 12/31/18 09:17; Admin Dose 1,000 UNIT; Start 12/02/18 at 09:00 Diclofenac Sodium (Voltaren 1% Gel) 2 gm TID PRN TP PAIN; Start 12/01/18 at 21:00 Levothyroxine Sodium (Synthroid) 100 mcg BEFORE BREAKFAST PO Last administered on 12/31/18 09:16; Admin Dose 100 MCG; Start 12/02/18 at 07:00 Lisinopril (Zestril) 5 mg DAILY PO Last administered on 12/31/18 09:17; Admin Dose 5 MG; Start 12/02/18 at 09:00 Magnesium Hydroxide (Milk Of Mag) 30 ml DAILY PRN PO CONSTIPATION; Start 12/01/18 at 21:00 Multivitamins Therapeutic (Theragran) 1 tab DAILY PO Last administered on 12/31/18 09:17; Admin Dose 1 TAB; Start 12/02/18 at 09:00 Polyethylene Glycol (Miralax) 17 gm DAILY PO Last administered on 12/29/18 08:33; Admin Dose 17 GM; Start 12/02/18 at 09:00 Senna (Senokot) 1 tab BID PO Last administered on 12/29/18 20:32; Admin Dose 1 TAB; Start 12/01/18 at 21:00 Vitamin B Complex/ Vitamin C (Berocca) 1 cap DAILY PO Last administered on 12/31/18 09:16; Admin Dose 1 CAP; Start 12/02/18 at 09:00 Fish Oil (Fish Oil) 1,000 mg DAILY PO Last administered on 12/31/18 09:17; Admin Dose 1,000 MG; Start 12/02/18 at 09:00 Docusate Sodium (Colace) 100 mg Q12H PRN PO .CONSTIPATION; Start 12/01/18 at 2 2:00 Bisacodyl (Dulcolax) 5 mg DAILY PRN PO .CONSTIPATION; Start 12/01/18 at 22:00 Lidocaine (Xylocaine 1% (Mpf)) 30 ml ONCE PRN INJ aspiration ; Start 12/04/18 at 17:30 IV Flush (NS 3 ml) 3 ml PER PROTOCOL IV ; Start 12/05/18 at 21:30 Oxycodone HCl (Roxicodone) 15 mg Q4H PRN PO .PAIN Last administered on 12/30/18at 13:42; Admin Dose 5 MG; Start 12/05/18 at 21:30 Oxycodone HCl (Roxicodone) 10 mg Q4H PRN PO .PAIN Last administered on 12/18/18at 03:37; Admin Dose 10 MG; Start 12/05/18 at 21:30 Oxycodone HCl (Roxicodone) 5 mg Q4H PRN PO .PAIN Last administered on 12/31/18at 11:56; Admin Dose 5 MG; Start 12/05/18 at 21:30 Hydromorphone HCl (Dilaudid) 1 mg Q3H PRN IV .BREAKTHROUGH PAIN Last adm inistered on 12/06/18at 06:58; Admin Dose 1 MG; Start 12/05/18 at 21:30 Ondansetron HCl (Zofran Inj) 4 mg Q4H PRN IV NAUSEA/VOMITING; Start 12/06/18 at 21:30 Pantoprazole (Protonix Tab) 40 mg DAILY@06 PO Last administered on 12/31/18at 09:16; Admin Dose 40 MG; Start 12/07/18 at 06:00 Simethicone (Mylicon) 80 mg TID PRN PO .GAS; Start 12/05/18 at 21:30 Senna/Docusate Sodium (Senokot-S) 2 tab BID PRN PO .CONSTIPATION Last administered on 12/06/18 08:54; Admin Dose 2 TAB; Start 12/05/18 at 21:30 Magnesium Hydroxide (Milk Of Mag) 30 ml HS PRN PO .CONSTIPATION; Start 12/05/18 at 21:30 Bisacodyl (Dulcolax Supp) 10 mg DAILY PRN OK .CONSTIPATION; Start 12/05/18 at 21:30 Sodium Biphosphate/ Sodium Phosphate (Fleet Enema) 133 ml DAILY PRN OK .CONSTIPATION; Start 12/05/18 at 21:30 Diphenhydramine HCl (Benadryl) 25 mg Q4H PRN IV .ITCHING; Start 12/05/18 at 21:30 Naloxone HCl (Narcan) 0.2 mg Q2M PRN IV .RESP RATE; Start 12/05/18 at 21:30 Bethanechol Chloride (Urecholine) 25 mg URINARY CATH D/C PRN PO UNABLE TO VOID; Start 12/05/18 at 21:30 Aspirin (Halfprin) 81 mg BID PO Last administered on 12/31/18 09:17; Admin Dose 81 MG; Start 12/06/18 at 09:00 Nystatin (Nystatin Powder) 1 applic BID TOP Last administered on 12/31/18 09:22; Admin Dose 1 APPLIC; Start 12/12/18 at 21:00 Albuterol (Proventil 0.083% (Neb)) 2.5 mg Q2H RESP THERAPY PRN HHN SHORTNESS OF BREATH; Start 12/15/18 at 12:00 Lidocaine (Lidoderm) 1 patch DAILY TD Last administered on 12/30/18 09:36; Admin Dose 1 PATCH; Start 12/15/18 at 12:00 Alteplase, Recombinant (Cathflo (Activase)) 2 mg MAY REPEAT X1 PRN CATHETER IF CATHETER REMAINS OCCULUDED Last administered on 12/17/18 13:20; Admin Dose 2 MG; Start 12/17/18 at 08:30 Gabapentin (Neurontin) 300 mg TID PO Last administered on 12/31/18 12:49; Admin Dose 300 MG; Start 12/22/18 at 13:00 Methocarbamol (Robaxin) 750 mg TID PO Last administered on 12/31/18 12:50; Admin Dose 750 MG; Start 12/28/18 at 13:00 Linezolid (Zyvox) 600 mg BID PO Last administered on 12/31/18 09:17; Admin Dose 600 MG; Start 12/28/18 at 15:00 Meropenem/Sodium Chloride 50 ml @ 100 mls/hr Q12 IVPB Last administered on 12/31/18 09:18; Admin Dose 100 MLS/HR; Start 12/28/18 at 21:00 Acetaminophen (Tylenol Tab) 1,000 mg Q6 PRN PO pain Last administered on 12/30/18 01:38; Admin Dose 1,000 MG; Start 12/28/18 at 21:30 Alteplase, Recombinant (Cathflo (Activase)) 2 mg MAY REPEAT X1 PRN CATHETER IF CATHETER REMAINS OCCULUDED Last administered on 12/29/18at 16:53; Admin Dose 2 MG; Start 12/29/18 at 16:00 Sodium Hypochlorite (Dakins Diluted ()) 1 applic DAILY TP Last administered on 12/31/18at 09:22; Admin Dose 1 APPLIC; Start 12/30/18 at 13:00 YESSICA ALAMO NP Dec 31, 2018 15:49
[2018-12-31] MEDS ORDERED: SILVER NITRATE SWAB TOP ONE (16:30)
[2018-12-31] MEDS: ACETAMINOPHEN 500 MG TAB PO PRN (17:31)
[2018-12-31 20:29] VITALS: BP 100/56; PULSE 73; RESP 18
[2019-01-01 02:54] VITALS: BP 118/55; PULSE 75; RESP 18
[2019-01-01] MEDS: PANTOPRAZOLE (EC) 40 MG TAB PO SCH (06:28)
[2019-01-01] MEDS: LEVOTHYROXINE 100 MCG TAB PO SCH (06:28)
[2019-01-01 08:23] VITALS: BP 107/59; PULSE 77; RESP 18
[2019-01-01] MEDS: MEROPENEM 1 GM/50ML(PMX) 50 ML IVPB SCH ×2 (08:37→20:47)
[2019-01-01] MEDS: BUPROPION (XL) 150 MG TAB PO SCH (08:37)
[2019-01-01] MEDS: ZYVOX 600 MG TAB PO SCH ×2 (08:38→20:39)
[2019-01-01] MEDS: VITAMIN B COMPLEX/VIT C CAP PO SCH (08:38)
[2019-01-01] MEDS: FISH OIL 1,000 MG CAP PO SCH (08:38)
[2019-01-01] MEDS: METHOCARBAMOL 750 MG TAB PO SCH ×3 (08:39→20:39)
[2019-01-01] MEDS: GABAPENTIN 300 MG CAP PO SCH ×3 (08:39→20:39)
[2019-01-01] MEDS: CHOLECALCIFEROL 1,000 UNIT TAB PO SCH (08:40)
[2019-01-01] MEDS: LISINOPRIL 5 MG TAB PO SCH (08:41)
[2019-01-01] MEDS: ASPIRIN (EC) 81 MG TAB PO SCH ×2 (08:41→20:39)
[2019-01-01] MEDS: ASCORBIC ACID 500 MG TAB PO SCH ×2 (08:41→20:39)
[2019-01-01] MEDS: MULTIVITAMINS THERAPEUTIC TAB PO SCH (08:42)
[2019-01-01] MEDS: LIDOCAINE 5% PATCH TD SCH (08:43)
[2019-01-01] MEDS: NYSTATIN 30 GM POWDER BTL TOP SCH ×2 (08:43→20:42)
[2019-01-01] MEDS: DAKINS 0.0125%(1/40) 473 ML SOLUTION TP SCH ×3 (08:44→20:41)
[2019-01-01] MEDS: POLYETHYLENE GLYCOL 17 GM PACKET PO SCH (08:44)
[2019-01-01] MEDS: SENNA TAB PO SCH ×2 (08:44→20:49)
[2019-01-01] MEDS ORDERED: SILVER NITRATE SWAB TOP ONE (09:00)
--- NOTE | 2019-01-01 10:44 | PN ---
Date/Time of Note Date/Time of Note DATE: 01/01/19 TIME: 10:42 Assessment/Plan Lines/Catheters IV Catheter Type (from [facility]): PICC Line Schaeffer in Place (from [facility]): No Assessment/Plan Chief Complaint/Hosp Course 1. Sacral wound: + Wound cultures -debridement today -local care -frequent turning and off-loading -low air loss mattress -vitamin c -short term zinc -optimize nutrition 2. Bacteremia: Repeat blood culture: NGTD -Antibiotics per sensitivities 3.Septic right knee joint status post I&D: -Per Ortho 4. Spine disease: Status post spinal surgeries -Supportive 5.UTI: -abx per sensitivity -frequent bladder emptying/cath care 6. Osteoarthritis: -Medical management Thank you. Patient seen and examined in collaboration with Dr. Fernandez Nation Subjective 24 Hr Interval Summary Sacral debridement today. No fevers, chills, sob, congested cough, cp, palpitations, ruano, dizziness, nausea, vomiting, diarrhea, dysuria. Exam/Review of Systems Vital Signs Vitals Vital Signs Date Temp Pulse Resp B/P (MAP) Pulse Ox O2 O2 Flow FiO2 Time Delivery Rate 01/01/19 98.7 77 18 107/59 97 Room Air 08:23 (75) Intake and Output 12/31/18 12/31/18 01/01/19 1515:00 23:00 07:00 IntakeIntake Total 340 ml 175 ml 300 ml OutputOutput Total 1 ml BalanceBalance 339 ml 175 ml 300 ml Exam Free Text/Dictation Constitutional: alert, oriented Psych: nl mood/affect; No anxiety Head: normocephalic, atraumatic Eyes: nl conjunctiva, EOMI, nl lids, nl sclera ENMT: nl external ears & nose, nl lips & teeth, nl nasal mucosa & septum, mucosa pink and moist Neck: supple, non-tender; No jvd Respiratory: normal air movement; No congested cough Cardiovascular: regular rate and rhythm, nl pulses; No edema Gastrointestinal: soft, non-tender; No distended Genitourinary - Female: nl external genitalia Musculoskeletal: nl extremities to inspection; No nl gait and stance Extremities: normal pulses Neurological: nl mental status, nl speech, nl strength Skin: nl turgor, other (Sacrum: Slough, moderate drainage, minimal odor, minimal periwound erythema) Lymph: nl lymph nodes Results Result Diagram: 12/31/18 0438 12/31/18 0438 YESSICA ALAMO NP Jan 01, 2019 10:43
--- NOTE | 2019-01-01 11:46 | OPR ---
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 Operation/Procedure Performed Excisional debridement of sacral skin, subcutaneous, muscle, fascia and bone, 8 x 8 cm. Surgeon see signature line Civil Lawyer N/A Anesthesia Type: other (None) Estimated Blood Loss: minimal Transfusion none Specimen Bone Grafts/Implants none Complications none Pt Condition Post Procedure: stable Indications Per notes Procedure Description Risks, benefits, alternatives discussed with and agreed upon with patient. Patient in her own bed left lateral decubitus. Area was prepped and draped in sterile fashion. Timeout was performed. Using scalpel and curette, the slough and necrotic tissue of the sacral skin, subcutaneous, muscle/fascia and bone with debrided to healthier tissue. Hemostasis was obtained using direct applied pressure and silver nitrate sticks. Decision was made not to debride more aggressively due to risk for bleeding. Bone sample was obtained and sent for pathology. Area was irrigated with Dakin solution and packed with Dakin's moistened Kerlix gauze. Dry dressing was used to cover. YESSICA ALAMO NP Jan 01, 2019 11:46
--- NOTE | 2019-01-01 13:01 | CONS ---
Assessment/Plan Assessment/Plan Hospital Course (Demo Recall) No fevers over night Antimicrobials: Merrem, Zyvox Microbiology: Blood culture on admission grew strep, urine culture grew E. coli, MRSA swab negative, repeat blood cultures negative. Sacral wound cx + VRE/Proteus/Strep 2D echo revealed no vegetations Physical examination: This is well-developed well-nourished elderly woman who is alert in no distress. Head atraumatic normocephalic neck is supple. Chest rise symmetrical breath sounds clear. Heart: S1-S2. Abdomen soft, bowel tones p resent. Extremities wnl Assessment: 1. Fevers ?etiology r/o infected PICC vs 2 to sacral wound 2. Status post sepsis, present on admission 3. S/p streptococcal bacteremia 2 to #4 4. 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 S/p urinary tract infection 6. History of left total knee replacement 7. History of multilevel discectomy and posterior fusion from L1-L3, please see CT in the chart Plan: Stable, continue antibiotics, pending sacral wound debridement Consultation Date/Type/Reason Admit Date/Time Dec 01, 2018 at 19:24 Initial Consult Date Type of Consult id Requesting Provider: TERESA COSBY Date/Time of Note DATE: 01/01/19 TIME: 13:00 Exam/Review of Systems Exam Vitals Vital Signs Date Temp Pulse Resp B/P (MAP) Pulse Ox O2 O2 Flow FiO2 Time Delivery Rate 01/01/19 98.7 77 18 107/59 97 Room Air 08:23 (75) Intake and Output 12/31/18 12/31/18 01/01/19 1414:59 22:59 06:59 IntakeIntake Total 340 ml 175 ml 300 ml OutputOutput Total 1 ml BalanceBalance 339 ml 175 ml 300 ml Results Result Diagram: 12/31/18 0438 12/31/18 0438 Medications Medication Current Medications Albuterol (Ventolin Hfa) 2 puff Q4H PRN INH WHEEZING AND SOB; Start 12/01/18 at 21:00; Status Hold Ascorbic Acid (Vitamin C) 500 mg BID PO Last administered on 01/01/19at 08:41; Admin Dose 500 MG; Start 12/01/18 at 21:00 Bupropion HCl (Wellbutrin Xl) 300 mg DAILY PO Last administered on 01/01/19 08:37; Admin Dose 300 MG; Start 12/02/18 at 09:00 Cholecalciferol (Vitamin D) 1,000 unit DAILY PO Last administered on 01/01/19 08:40; Admin Dose 1,000 UNIT; Start 12/02/18 at 09:00 Diclofenac Sodium (Voltaren 1% Gel) 2 gm TID PRN TP PAIN; Start 12/01/18 at 21:00 Levothyroxine Sodium (Synthroid) 100 mcg BEFORE BREAKFAST PO Last administered on 01/01/19 06:28; Admin Dose 100 MCG; Start 12/02/18 at 07:00 Lisinopril (Zestril) 5 mg DAILY PO Last administered on 01/01/19 08:41; Admin Dose 5 MG; Start 12/02/18 at 09:00 Multivitamins Therapeutic (Theragran) 1 tab DAILY PO Last administered on 01/01/19 08:42; Admin Dose 1 TAB; Start 12/02/18 at 09:00 Polyethylene Glycol (Miralax) 17 gm DAILY PO Last administered on 12/29/18 08:33; Admin Dose 17 GM; Start 12/02/18 at 09:00 Senna (Senokot) 1 tab BID PO Last administered on 12/29/18 20:32; Admin Dose 1 TAB; Start 12/01/18 at 21:00 Vitamin B Complex/ Vitamin C (Berocca) 1 cap DAILY PO Last administered on 01/01/19 08:38; Admin Dose 1 CAP; Start 12/02/18 at 09:00 Fish Oil (Fish Oil) 1,000 mg DAILY PO Last administered on 01/01/19 08:38; Admin Dose 1,000 MG; Start 12/02/18 at 09:00 Docusate Sodium (Colace) 100 mg Q12H PRN PO .CONSTIPATION; Start 12/01/18 at 22:00 Bisacodyl (Dulcolax) 5 mg DAILY PRN PO .CONSTIPATION; Start 12/01/18 at 22:00 Lidocaine (Xylocaine 1% (Mpf)) 30 ml ONCE PRN INJ aspiration ; Start 12/04/18 at 17:30 IV Flush (NS 3 ml) 3 ml PER PROTOCOL IV ; Start 12/05/18 at 21:30 Oxycodone HCl (Roxicodone) 15 mg Q4H PRN PO .PAIN Last administered on 12/30/18at 13:42; Admin Dose 5 MG; Start 12/05/18 at 21:30 Oxycodone HCl (Roxicodone) 10 mg Q4H PRN PO .PAIN Last administered on 12/18/18 at 03:37; Admin Dose 10 MG; Start 12/05/18 at 21:30 Oxycodone HCl (Roxicodone) 5 mg Q4H PRN PO .PAIN Last administered on 12/31/18at 11:56; Admin Dose 5 MG; Start 12/05/18 at 21:30 Hydromorphone HCl (Dilaudid) 1 mg Q3H PRN IV .BREAKTHROUGH PAIN Last administered on 12/06/18at 06:58; Admin Dose 1 MG; Start 12/05/18 at 21:30 Ondansetron HCl (Zofran Inj) 4 mg Q4H PRN IV NAUSEA/VOMITING; Start 12/06/18 at 21:30 Pantoprazole (Protonix Tab) 40 mg DAILY@06 PO Last administered on 01/01/19at 06:28; Admin Dose 40 MG; Start 12/07/18 at 06:00 Simethicone (Mylicon) 80 mg TID PRN PO .GAS; Start 12/05/18 at 21:30 Senna/Docusate Sodium (Senokot-S) 2 tab BID PRN PO .CONSTIPATION Last administered on 12/06/18at 08:54; Admin Dose 2 TAB; Start 12/05/18 at 21:30 Magnesium Hydroxide (Milk Of Mag) 30 ml HS PRN PO .CONSTIPATION; Start 12/05/18 at 21:30 Bisacodyl (Dulcolax Supp) 10 mg DAILY PRN [place] .CONSTIPATION; Start 12/05/18 at 21:30 Sodium Biphosphate/ Sodium Phosphate (Fleet Enema) 133 ml DAILY PRN [place] .CONSTIPATION; Start 12/05/18 at 21:30 Diphenhydramine HCl (Benadryl) 25 mg Q4H PRN IV .ITCHING; Start 12/05/18 at 21:30 Naloxone HCl (Narcan) 0.2 mg Q2M PRN IV .RESP RATE; Start 12/05/18 at 21:30 Bethanechol Chloride (Urecholine) 25 mg URINARY CATH D/C PRN PO UNABLE TO VOID; Start 12/05/18 at 21:30 Aspirin (Halfprin) 81 mg BID PO Last administered on 01/01/19 08:41; Admin Dose 81 MG; Start 12/06/18 at 09:00 Nystatin (Nystatin Powder) 1 applic BID TOP Last administered on 01/01/19 08:43; Admin Dose 1 APPLIC; Start 12/12/18 at 21:00 Albuterol (Proventil 0.083% (Neb)) 2.5 mg Q2H RESP THERAPY PRN HHN SHORTNESS OF BREATH; Start 12/15/18 at 12:00 Lidocaine (Lidoderm) 1 patch DAILY TD Last administered on 01/01/19 08:43; Admin Dose 1 PATCH; Start 12/15/18 at 12:00 Alteplase, Recombinant (Cathflo (Activase)) 2 mg MAY REPEAT X1 PRN CATHETER IF CATHETER REMAINS OCCULUDED Last administered on 12/17/18 13:20; Admin Dose 2 MG; Start 12/17/18 at 08:30 Gabapentin (Neurontin) 300 mg TID PO Last administered on 01/01/19 08:39; Admin Dose 300 MG; Start 12/22/18 at 13:00 Methocarbamol (Robaxin) 750 mg TID PO Last administered on 01/01/19 08:39; Admin Dose 750 MG; Start 12/28/18 at 13:00 Linezolid (Zyvox) 600 mg BID PO Last administered on 01/01/19 08:38; Admin Dose 600 MG; Start 12/28/18 at 15:00 Meropenem/Sodium Chloride 50 ml @ 100 mls/hr Q12 IVPB Last administered on 01/01/19 08:37; Admin Dose 100 MLS/HR; Start 12/28/18 at 21:00 Acetaminophen (Tylenol Tab) 1,000 mg Q6 PRN PO pain Last administered on 12/31/18 17:31; Admin Dose 1,000 MG; Start 12/28/18 at 21:30 Alteplase, Recombinant (Cathflo (Activase)) 2 mg MAY REPEAT X1 PRN CATHETER IF CATHETER REMAINS OCCULUDED Last administered on 4/21/19at 16:53; Admin Dose 2 MG; Start 12/29/18 at 16:00 Sodium Hypochlorite (Dakins Diluted (1/40)) 1 applic DAILY TP Last administered on 01/01/19at 08:44; Admin Dose 1 APPLIC; Start 12/30/18 at 13:00 Sodium Hypochlorite (Dakins Diluted (1/40)) 1 applic BID TP Last administered o n 01/01/19at 08:44; Admin Dose 1 APPLIC; Start 12/31/18 at 21:00 OZZIE SOLOMON NP Jan 01, 2019 13:01
[2019-01-01] MEDS: BALSAM PERU/CASTOR OIL 60 GM TUBE TOP SCH (13:30)
--- NOTE | 2019-01-01 15:43 | PN ---
Date/Time of Note Date/Time of Note DATE: 01/01/19 TIME: 15:42 Assessment/Plan VTE Prophylaxis Risk score (from Ns)>0 risk: 4 SCD applied (from Ns): Yes Pharmacological prophylaxis: NA/contraindicated Pharm contraindication: surgical contra Lines/Catheters Urinary Cath still in place: No Assessment/Plan Hospital Course 1. Sepsis secondary secondary to decubitus ulcers and/or PICC line infection - Repeat sacral wound cultures continue to show Proteus and VRE -Recent blood cultures are negative - ID on board and appreciate recommendations. Concerns for line infection and will check blood cultures from PICC line site. If continue to spike elevated fevers, will need replacement of PICC 2. Septic R knee joint s/p I&D on 12/05/18- resolved - remains stable and incision site clean and dry - Continues to work with PT. - Ortho on board and recommendations appreciated. Continue IV antibiotics until 01/18 then will need to continue PO antibiotics - pain control 3. Left leg muscle spasm - Robaxin TID - replacing K 4. Sacral wound - repeat cultures continue to show VRE and Proteus -Previous hospitalist discussed with patient and son importance of airloss bed to prevent further breakdown of wound, was refused, using waffle cushion when in bedside chair -Wound care is recommending surgical consultation for debridement, consultation with Dr. Nation appreciated and patient is status post debridement 5. Chronic spinal disease - h/o significant stenosis of her spine. Lumbar spine and thoracic spine CT show signs of stenosis though no acute fractures. - continue lidocaine patch 6. osteoarthritis - pain control 7. urinary tract infection- treated - Cultures growing ecoli and lactobacillus - asymptomatic 8. Strep Bacteremia - continue current antibiotics - repeat cultures negative 9. Mechanical fall 10. Disposition - CM on board for SNF placement Result Diagram: 12/31/18 0438 12/31/18 0438 Subjective 24 Hr Interval Summary Constitutional: no complaints Exam/Review of Systems Exam Vitals Vital Signs Date Temp Pulse Resp B/P (MAP) Pulse Ox O2 O2 Flow FiO2 Time Delivery Rate 01/01/19 98.7 77 18 107/59 97 Room Air 08:23 (75) Intake and Output 12/31/18 12/31/18 01/01/19 1515:00 23:00 07:00 IntakeIntake Total 340 ml 175 ml 300 ml OutputOutput Total 1 ml BalanceBalance 339 ml 175 ml 300 ml Constitutional: alert, oriented Respiratory: clear to auscultation Cardiovascular: regular rate and rhythm Gastrointestinal: soft; No distended Musculoskeletal: nl extremities to inspection Medications Medication Current Medications Albuterol (Ventolin Hfa) 2 puff Q4H PRN INH WHEEZING AND SOB; Start 12/01/18 at 21:00; Status Hold Ascorbic Acid (Vitamin C) 500 mg BID PO Last administered on 01/01/19 08:41; Admin Dose 500 MG; Start 12/01/18 at 21:00 Bupropion HCl (Wellbutrin Xl) 300 mg DAILY PO Last administered on 01/01/19 08 :37; Admin Dose 300 MG; Start 12/02/18 at 09:00 Cholecalciferol (Vitamin D) 1,000 unit DAILY PO Last administered on 01/01/19 08:40; Admin Dose 1,000 UNIT; Start 12/02/18 at 09:00 Diclofenac Sodium (Voltaren 1% Gel) 2 gm TID PRN TP PAIN; Start 12/01/18 at 21:00 Levothyroxine Sodium (Synthroid) 100 mcg BEFORE BREAKFAST PO Last administered on 01/01/19 06:28; Admin Dose 100 MCG; Start 12/02/18 at 07:00 Lisinopril (Zestril) 5 mg DAILY PO Last administered on 01/01/19 08:41; Admin Dose 5 MG; Start 12/02/18 at 09:00 Multivitamins Therapeutic (Theragran) 1 tab DAILY PO Last administered on 01/01/19 08:42; Admin Dose 1 TAB; Start 12/02/18 at 09:00 Polyethylene Glycol (Miralax) 17 gm DAILY PO Last administered on 12/29/18 08:33; Admin Dose 17 GM; Start 12/02/18 at 09:00 Senna (Senokot) 1 tab BID PO Last administered on 12/29/18 20:32; Admin Dose 1 TAB; Start 12/01/18 at 21:00 Vitamin B Complex/ Vitamin C (Berocca) 1 cap DAILY PO Last administered on 01/01/19 08:38; Admin Dose 1 CAP; Start 12/02/18 at 09:00 Fish Oil (Fish Oil) 1,000 mg DAILY PO Last administered on 4/24/19at 08:38; Admin Dose 1,000 MG; Start 12/02/18 at 09:00 Docusate Sodium (Colace) 100 mg Q12H PRN PO .CONSTIPATION; Start 12/01/18 at 22:00 Bisacodyl (Dulcolax) 5 mg DAILY PRN PO .CONSTIPATION; Start 12/01/18 at 22:00 Lidocaine (Xylocaine 1% (Mpf)) 30 ml ONCE PRN INJ aspiration ; Start 12/04/18 at 17:30 IV Flush (NS 3 ml) 3 ml PER PROTOCOL IV ; Start 12/05/18 at 21:30 Oxycodone HCl (Roxicodone) 15 mg Q4H PRN PO .PAIN Last administered on 12/30/18 13:42; Admin Dose 5 MG; Start 12/05/18 at 21:30 Oxycodone HCl (Roxicodone) 10 mg Q4H PRN PO .PAIN Last administered on 12/18/18 03:37; Admin Dose 10 MG; Start 12/05/18 at 21:30 Oxycodone HCl (Roxicodone) 5 mg Q4H PRN PO .PAIN Last administered on 12/31/18 11:56; Admin Dose 5 MG; Start 12/05/18 at 21:30 Hydromorphone HCl (Dilaudid) 1 mg Q3H PRN IV .BREAKTHROUGH PAIN Last administered on 12/06/18 06:58; Admin Dose 1 MG; Start 12/05/18 at 21:30 Ondansetron HCl (Zofran Inj) 4 mg Q4H PRN IV NAUSEA/VOMITING; Start 12/06/18 at 21:30 Pantoprazole (Protonix Tab) 40 mg DAILY@06 PO Last administered on 01/01/19 06:28; Admin Dose 40 MG; Start 12/07/18 at 06:00 Simethicone (Mylicon) 80 mg TID PRN PO .GAS; Start 12/05/18 at 21:30 Senna/Docusate Sodium (Senokot-S) 2 tab BID PRN PO .CONSTIPATION Last administered on 12/06/18 08:54; Admin Dose 2 TAB; Start 12/05/18 at 21:30 Magnesium Hydroxide (Milk Of Mag) 30 ml HS PRN PO .CONSTIPATION; Start 12/05/18 at 21:30 Bisacodyl (Dulcolax Supp) 10 mg DAILY PRN [place] .CONSTIPATION; Start 12/05/18 at 21:30 Sodium Biphosphate/ Sodium Phosphate (Fleet Enema) 133 ml DAILY PRN [place] .CONSTIPATION; Start 12/05/18 at 21:30 Diphenhydramine HCl (Benadryl) 25 mg Q4H PRN IV .ITCHING; Start 12/05/18 at 21:30 Naloxone HCl (Narcan) 0.2 mg Q2M PRN IV .RESP RATE; Start 12/05/18 at 21:30 Bethanechol Chloride (Urecholine) 25 mg URINARY CATH D/C PRN PO UNABLE TO VOID; Start 12/05/18 at 21:30 Aspirin (Halfprin) 81 mg BID PO Last administered on 01/01/19 08:41; Admin Dose 81 MG; Start 12/06/18 at 09:00 Nystatin (Nystatin Powder) 1 applic BID TOP Last administered on 01/01/19 08:43; Admin Dose 1 APPLIC; Start 12/12/18 at 21:00 Albuterol (Proventil 0.083% (Neb)) 2.5 mg Q2H RESP THERAPY PRN HHN SHORTNESS OF BREATH; Start 12/15/18 at 12:00 Lidocaine (Lidoderm) 1 patch DAILY TD Last administered on 01/01/19 08:43; Admin Dose 1 PATCH; Start 12/15/18 at 12:00 Alteplase, Recombinant (Cathflo (Activase)) 2 mg MAY REPEAT X1 PRN CATHETER IF CATHETER REMAINS OCCULUDED Last administered on 12/17/18 13:20; Admin Dose 2 MG; Start 12/17/18 at 08:30 Gabapentin (Neurontin) 300 mg TID PO Last administered on 01/01/19 14:06; Admin Dose 300 MG; Start 12/22/18 at 13:00 Methocarbamol (Robaxin) 750 mg TID PO Last administered on 01/01/19 14:07; Admin Dose 750 MG; Start 12/28/18 at 13:00 Linezolid (Zyvox) 600 mg BID PO Last administered on 01/01/19 08:38; Admin Dose 600 MG; Start 12/28/18 at 15:00 Meropenem/Sodium Chloride 50 ml @ 100 mls/hr Q12 IVPB Last administered on 01/01/19 08:37; Admin Dose 100 MLS/HR; Start 12/28/18 at 21:00 Acetaminophen (Tylenol Tab) 1,000 mg Q6 PRN PO pain Last administered on 12/31/18 17:31; Admin Dose 1,000 MG; Start 12/28/18 at 21:30 Alteplase, Recombinant (Cathflo (Activase)) 2 mg MAY REPEAT X1 PRN CATHETER IF CATHETER REMAINS OCCULUDED Last administered on 12/29/18 16:53; Admin Dose 2 MG; Start 12/29/18 at 16:00 Sodium Hypochlorite (Dakins Diluted (1/40)) 1 applic DAILY TP Last administered on 01/01/19 08:44; Admin Dose 1 APPLIC; Start 12/30/18 at 13:00 Sodium Hypochlorite (Dakins Diluted (1/40)) 1 applic BID TP Last administered on 01/01/19 08:44; Admin Dose 1 APPLIC; Start 12/31/18 at 21:00 TERESA COSBY Jan 01, 2019 15:43
--- NOTE | 2019-01-01 16:30 | CONS ---
Assessment/Plan Assessment/Plan Assessment/Plan (Daily) Preoperative cardiac risk stratification Septic arthritis status post surgery 12/05/2018 Preserved ejection fraction Hypertension -Denies symptoms of chest pain, shortness of breath or palpitations. -BP trend overall well controlled. Continue lisinopril as needed Consultation Date/Type/Reason Admit Date/Time Dec 01, 2018 at 19:24 Initial Consult Date 12/04/18 Type of Consult Cardiology Requesting Provider: TERESA COSBY Date/Time of Note DATE: 01/01/19 TIME: 16:29 24 HR Interval Summary Free Text/Dictation the patient with no cahgne Exam/Review of Systems Vital Signs Vitals Vital Signs Date Temp Pulse Resp B/P (MAP) Pulse Ox O2 O2 Flow FiO2 Time Delivery Rate 01/01/19 98.7 77 18 107/59 97 Room Air 08:23 (75) Intake and Output 12/31/18 12/31/18 01/01/19 1515:00 23:00 07:00 IntakeIntake Total 340 ml 175 ml 300 ml OutputOutput Total 1 ml BalanceBalance 339 ml 175 ml 300 ml Labs Result Diagram: 12/31/18 0438 12/31/18 0438 Medications Medications Current Medications Albuterol (Ventolin Hfa) 2 puff Q4H PRN INH WHEEZING AND SOB; Start 12/01/18 at 21:00; Status Hold Ascorbic Acid (Vitamin C) 500 mg BID PO Last administered on 01/01/19at 08:41; Admin Dose 500 MG; Start 12/01/18 at 21:00 Bupropion HCl (Wellbutrin Xl) 300 mg DAILY PO Last administered on 01/01/19at 08:37; Admin Dose 300 MG; Start 12/02/18 at 09:00 Cholecalciferol (Vitamin D) 1,000 unit DAILY PO Last administered on 01/01/19at 08:40; Admin Dose 1,000 UNIT; Start 12/02/18 at 09:00 Diclofenac Sodium (Voltaren 1% Gel) 2 gm TID PRN TP PAIN; Start 12/01/18 at 21:00 Levothyroxine Sodium (Synthroid) 100 mcg BEFORE BREAKFAST PO Last administered on 01/01/19at 06:28; Admin Dose 100 MCG; Start 12/02/18 at 07:00 Lisinopril (Zestril) 5 mg DAILY PO Last administered on 01/01/19 08:41; Admin Dose 5 MG; Start 12/02/18 at 09:00 Multivitamins Therapeutic (Theragran) 1 tab DAILY PO Last administered on 01/01/19 08:42; Admin Dose 1 TAB; Start 12/02/18 at 09:00 Polyethylene Glycol (Miralax) 17 gm DAILY PO Last administered on 12/29/18 08:33; Admin Dose 17 GM; Start 12/02/18 at 09:00 Senna (Senokot) 1 tab BID PO Last administered on 12/29/18 20:32; Admin Dose 1 TAB; Start 12/01/18 at 21:00 Vitamin B Complex/ Vitamin C (Berocca) 1 cap DAILY PO Last administered on 01/01/19 08:38; Admin Dose 1 CAP; Start 12/02/18 at 09:00 Fish Oil (Fish Oil) 1,000 mg DAILY PO Last administered on 01/01/19 08:38; Admin Dose 1,000 MG; Start 12/02/18 at 09:00 Docusate Sodium (Colace) 100 mg Q12H PRN PO .CONSTIPATION; Start 12/01/18 at 22:00 Bisacodyl (Dulcolax) 5 mg DAILY PRN PO .CONSTIPATION; Start 12/01/18 at 22:00 Lidocaine (Xylocaine 1% (Mpf)) 30 ml ONCE PRN INJ aspiration ; Start 12/04/18 at 17:30 IV Flush (NS 3 ml) 3 ml PER PROTOCOL IV ; Start 12/05/18 at 21:30 Oxycodone HCl (Roxicodone) 15 mg Q4H PRN PO .PAIN Last administered on 12/30/18 13:42; Admin Dose 5 MG; Start 12/05/18 at 21:30 Oxycodone HCl (Roxicodone) 10 mg Q4H PRN PO .PAIN Last administered on 12/18/18 03:37; Admin Dose 10 MG; Start 12/05/18 at 21:30 Oxycodone HCl (Roxicodone) 5 mg Q4H PRN PO .PAIN Last administered on 12/31/18 11:56; Admin Dose 5 MG; Start 12/05/18 at 21:30 Hydromorphone HCl (Dilaudid) 1 mg Q3H PRN IV .BREAKTHROUGH PAIN Last administered on 12/06/18 06:58; Admin Dose 1 MG; Start 12/05/18 at 21:30 Ondansetron HCl (Zofran Inj) 4 mg Q4H PRN IV NAUSEA/VOMITING; Start 12/06/18 at 21:30 Pantoprazole (Protonix Tab) 40 mg DAILY@06 PO Last administered on 01/01/19at 06:28; Admin Dose 40 MG; Start 12/07/18 at 06:00 Simethicone (Mylicon) 80 mg TID PRN PO .GAS; Start 12/05/18 at 21:30 Senna/Docusate Sodium (Senokot-S) 2 tab BID PRN PO .CONSTIPATION Last administered on 12/06/18at 08:54; Admin Dose 2 TAB; Start 12/05/18 at 21:30 Magnesium Hydroxide (Milk Of Mag) 30 ml HS PRN PO .CONSTIPATION; Start 12/05/18 at 21:30 Bisacodyl (Dulcolax Supp) 10 mg DAILY PRN [place] .CONSTIPATION; Start 12/05/18 at 21:30 Sodium Biphosphate/ Sodium Phosphate (Fleet Enema) 133 ml DAILY PRN [place] .CONSTIPATION; Start 12/05/18 at 21:30 Diphenhydramine HCl (Benadryl) 25 mg Q4H PRN IV .ITCHING; Start 12/05/18 at 21:30 Naloxone HCl (Narcan) 0.2 mg Q2M PRN IV .RESP RATE; Start 12/05/18 at 21:30 Bethanechol Chloride (Urecholine) 25 mg URINARY CATH D/C PRN PO UNABLE TO VOID; Start 12/05/18 at 21:30 Aspirin (Halfprin) 81 mg BID PO Last administered on 01/01/19at 08:41; Admin Dose 81 MG; Start 12/06/18 at 09:00 Nystatin (Nystatin Powder) 1 applic BID TOP Last administered on 01/01/19at 08:43; Admin Dose 1 APPLIC; Start 12/12/18 at 21:00 Albuterol (Proventil 0.083% (Neb)) 2.5 mg Q2H RESP THERAPY PRN HHN SHORTNESS OF BREATH; Start 12/15/18 at 12:00 Lidocaine (Lidoderm) 1 patch DAILY TD Last administered on 01/01/19 08:43; Admin Dose 1 PATCH; Start 12/15/18 at 12:00 Alteplase, Recombinant (Cathflo (Activase)) 2 mg MAY REPEAT X1 PRN CATHETER IF CATHETER REMAINS OCCULUDED Last administered on 12/17/18 13:20; Admin Dose 2 MG; Start 12/17/18 at 08:30 Gabapentin (Neurontin) 300 mg TID PO Last administered on 01/01/19 14:06; Admin Dose 300 MG; Start 12/22/18 at 13:00 Methocarbamol (Robaxin) 750 mg TID PO Last administered on 01/01/19 14:07; Admin Dose 750 MG; Start 12/28/18 at 13:00 Linezolid (Zyvox) 600 mg BID PO Last administered on 01/01/19 08:38; Admin Dose 600 MG; Start 12/28/18 at 15:00 Meropenem/Sodium Chloride 50 ml @ 100 mls/hr Q12 IVPB Last administered on 01/01/19 08:37; Admin Dose 100 MLS/HR; Start 12/28/18 at 21:00 Acetaminophen (Tylenol Tab) 1,000 mg Q6 PRN PO pain Last administered on 12/31/18 17:31; Admin Dose 1,000 MG; Start 12/28/18 at 21:30 Alteplase, Recombinant (Cathflo (Activase)) 2 mg MAY REPEAT X1 PRN CATHETER IF CATHETER REMAINS OCCULUDED Last administered on 12/29/18 16:53; Admin Dose 2 MG; Start 12/29/18 at 16:00 Sodium Hypochlorite (Dakins Diluted (1/40)) 1 applic DAILY TP Last administered on 01/01/19 08:44; Admin Dose 1 APPLIC; Start 12/30/18 at 13:00 Sodium Hypochlorite (Dakins Diluted (1/40)) 1 applic BID TP Last administered on 01/01/19 08:44; Admin Dose 1 APPLIC; Start 12/31/18 at 21:00 PATRICK LAWRENCE MD Jan 01, 2019 16:30
[2019-01-01 20:36] VITALS: BP 119/68; PULSE 80; RESP 18
[2019-01-02 02:00] VITALS: BP 127/58; PULSE 78; RESP 18
[2019-01-02] MEDS: LEVOTHYROXINE 100 MCG TAB PO SCH ×2 (05:46→06:00)
[2019-01-02] MEDS: PANTOPRAZOLE (EC) 40 MG TAB PO SCH (05:47)
[2019-01-02 08:07] VITALS: BP 128/60; PULSE 74; RESP 18
[2019-01-02] MEDS: SENNA TAB PO SCH ×2 (09:00→21:00)
[2019-01-02] MEDS: DAKINS 0.0125%(1/40) 473 ML SOLUTION TP SCH ×3 (09:00→21:25)
[2019-01-02] MEDS: POLYETHYLENE GLYCOL 17 GM PACKET PO SCH (09:00)
[2019-01-02] MEDS: ZYVOX 600 MG TAB PO SCH ×2 (09:23→21:24)
[2019-01-02] MEDS: CHOLECALCIFEROL 1,000 UNIT TAB PO SCH (09:23)
[2019-01-02] MEDS: GABAPENTIN 300 MG CAP PO SCH ×3 (09:23→21:24)
[2019-01-02] MEDS: ASCORBIC ACID 500 MG TAB PO SCH ×2 (09:23→21:24)
[2019-01-02] MEDS: FISH OIL 1,000 MG CAP PO SCH (09:24)
[2019-01-02] MEDS: MULTIVITAMINS THERAPEUTIC TAB PO SCH (09:24)
[2019-01-02] MEDS: LISINOPRIL 5 MG TAB PO SCH (09:24)
[2019-01-02] MEDS: METHOCARBAMOL 750 MG TAB PO SCH ×3 (09:24→21:24)
[2019-01-02] MEDS: VITAMIN B COMPLEX/VIT C CAP PO SCH (09:24)
[2019-01-02] MEDS: ASPIRIN (EC) 81 MG TAB PO SCH ×2 (09:24→21:25)
[2019-01-02] MEDS: BUPROPION (XL) 150 MG TAB PO SCH (09:24)
[2019-01-02] MEDS: NYSTATIN 30 GM POWDER BTL TOP SCH ×3 (09:25→21:25)
[2019-01-02] MEDS: MEROPENEM 1 GM/50ML(PMX) 50 ML IVPB SCH ×2 (09:25→21:24)
[2019-01-02] MEDS: LIDOCAINE 5% PATCH TD SCH (09:25)
[2019-01-02] MEDS: BALSAM PERU/CASTOR OIL 60 GM TUBE TOP SCH (09:49)
[2019-01-02] MEDS: oxyCODONE 5 MG TAB PO PRN ×2 (11:16→14:27)
[2019-01-02 14:58] VITALS: BP 130/62; PULSE 76; RESP 18
--- NOTE | 2019-01-02 15:20 | PN ---
Date/Time of Note Date/Time of Note DATE: 01/02/19 TIME: 15:19 Assessment/Plan Lines/Catheters IV Catheter Type (from [facility]): PICC Line Schaeffer in Place (from [facility]): No Assessment/Plan Chief Complaint/Hosp Course 1. Sacral wound: + Wound cultures; debridement 01/01/2019 -Repeat debridement as needed -Continue local care -frequent turning and off-loading -low air loss mattress -vitamin c -short term zinc -optimize nutrition 2. Bacteremia: Repeat blood culture: NGTD -Antibiotics per sensitivities 3.Septic right knee joint status post I&D: -Per Ortho 4. Spine disease: Status post spinal surgeries -Supportive 5.UTI: -abx per sensitivity -frequent bladder emptying/cath care 6. Osteoarthritis: -Medical management Thank you. Patient seen and examined in collaboration with Dr. Fernandez Nation Subjective 24 Hr Interval Summary Status post excisional debridement yesterday. Bone sample sent. No fevers, chills, sob, congested cough, cp, palpitations, ruano, dizziness, nausea, vomiting, diarrhea, dysuria. Exam/Review of Systems Vital Signs Vitals Vital Signs Date Temp Pulse Resp B/P (MAP) Pulse Ox O2 O2 Flow FiO2 Time Delivery Rate 01/02/19 98.0 76 18 130/62 92 Room Air 14:58 (84) Intake and Output 01/01/19 01/01/19 01/02/19 1515:00 23:00 07:00 IntakeIntake Total 50 ml 495 ml 100 ml BalanceBalance 50 ml 495 ml 100 ml Exam Free Text/Dictation Constitutional: alert, oriented Psych: nl mood/affect; No anxiety Head: normocephalic, atraumatic Eyes: nl conjunctiva, EOMI, nl lids, nl sclera ENMT: nl external ears & nose, nl lips & teeth, nl nasal mucosa & septum, mucosa pink and moist Neck: supple, non-tender; No jvd Respiratory: normal air movement; No congested cough Cardiovascular: regular rate and rhythm, nl pulses; No edema Gastrointestinal: soft, non-tender; No distended Genitourinary - Female: nl external genitalia Musculoskeletal: nl extremities to inspection; No nl gait and stance Extremities: normal pulses Neurological: nl mental status, nl speech, nl strength Skin: nl turgor, other (Sacrum: Slough, moderate drainage, minimal odor, minimal periwound erythema) Lymph: nl lymph nodes Results Result Diagram: 12/31/18 0438 12/31/18 0438 YESSICA ALAMO NP Jan 02, 2019 15:20
--- NOTE | 2019-01-02 15:36 | CONS ---
Assessment/Plan Assessment/Plan Hospital Course (Demo Recall) No fevers over night, alert, feels good Antimicrobials: Merrem, Zyvox Microbiology: Blood culture on admission grew strep, urine culture grew E. coli, MRSA swab negative, repeat blood cultures negative. Sacral wound cx + VRE/Proteus/Strep 2D echo revealed no vegetations Physical examination: This is well-developed well-nourished elderly woman who is alert in no distress. Head atraumatic normocephalic neck is supple. Chest rise symmetrical breath sounds clear. Heart: S1-S2. Abdomen soft, bowel tones present. Extremities wnl Assessment: 1. Fevers ?etiology r/o infected PICC vs 2 to sacral wound 2. Status post sepsis, present on admission 3. S/p streptococcal bacteremia 2 to #4 4. 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 S/p urinary tract infection 6. History of left total knee replacement 7. History of multilevel discectomy and posterior fusion from L1-L3, please see CT in the chart Plan: Remains stable, continue current antibiotics for treatment of her wound for at least 7 more days, then complete treatment with Rocephin till January 09. Pt to f/u with ortho Consultation Date/Type/Reason Admit Date/Time Dec 01, 2018 at 19:24 Initial Consult Date Type of Consult id Requesting Provider: TERESA COSBY Date/Time of Note DATE: 01/02/19 TIME: 15:33 Exam/Review of Systems Exam Vitals Vital Signs Date Temp Pulse Resp B/P (MAP) Pulse Ox O2 O2 Flow FiO2 Time Delivery Rate 01/02/19 98.0 76 18 130/62 92 Room Air 14:58 (84) Intake and Output 01/01/19 01/01/19 01/02/19 1515:00 23:00 07:00 IntakeIntake Total 50 ml 495 ml 100 ml BalanceBalance 50 ml 495 ml 100 ml Results Result Diagram: 12/31/18 0438 12/31/18 0438 Medications Medication Current Medications Albuterol (Ventolin Hfa) 2 puff Q4H PRN INH WHEEZING AND SOB; Start 12/01/18 at 21:00; Status Hold Ascorbic Acid (Vitamin C) 500 mg BID PO Last administered on 01/02/19at 09:23; Admin Dose 500 MG; Start 12/01/18 at 21:00 Bupropion HCl (Wellbutrin Xl) 300 mg DAILY PO Last administered on 01/02/19 09:24; Admin Dose 300 MG; Start 12/02/18 at 09:00 Cholecalciferol (Vitamin D) 1,000 unit DAILY PO Last administered on 01/02/19 09:23; Admin Dose 1,000 UNIT; Start 12/02/18 at 09:00 Diclofenac Sodium (Voltaren 1% Gel) 2 gm TID PRN TP PAIN; Start 12/01/18 at 21:00 Levothyroxine Sodium (Synthroid) 100 mcg BEFORE BREAKFAST PO Last administered on 01/02/19 05:46; Admin Dose 100 MCG; Start 12/02/18 at 07:00 Lisinopril (Zestril) 5 mg DAILY PO Last administered on 01/02/19 09:24; Admin Dose 5 MG; Start 12/02/18 at 09:00 Multivitamins Therapeutic (Theragran) 1 tab DAILY PO Last administered on 01/02/19 09:24; Admin Dose 1 TAB; Start 12/02/18 at 09:00 Polyethylene Glycol (Miralax) 17 gm DAILY PO Last administered on 12/29/18 08:33; Admin Dose 17 GM; Start 12/02/18 at 09:00 Senna (Senokot) 1 tab BID PO Last administered on 12/29/18 20:32; Admin Dose 1 TAB; Start 12/01/18 at 21:00 Vitamin B Complex/ Vitamin C (Berocca) 1 cap DAILY PO Last administered on 12/10 09:24; Admin Dose 1 CAP; Start 12/02/18 at 09:00 Fish Oil (Fish Oil) 1,000 mg DAILY PO Last administered on 01/02/19 09:24; Admin Dose 1,000 MG; Start 12/02/18 at 09:00 Docusate Sodium (Colace) 100 mg Q12H PRN PO .CONSTIPATION; Start 12/01/18 at 22:00 Bisacodyl (Dulcolax) 5 mg DAILY PRN PO .CONSTIPATION; Start 12/01/18 at 22:00 Lidocaine (Xylocaine 1% (Mpf)) 30 ml ONCE PRN INJ aspiration ; Start 12/04/18 at 17:30 IV Flush (NS 3 ml) 3 ml PER PROTOCOL IV ; Start 12/05/18 at 21:30 Oxycodone HCl (Roxicodone) 15 mg Q4H PRN PO .PAIN Last administered on 12/30/18 13:42; Admin Dose 5 MG; Start 12/05/18 at 21:30 Oxycodone HCl (Roxicodone) 10 mg Q4H PRN PO .PAIN Last administered on 12/18 03:37; Admin Dose 10 MG; Start 12/05/18 at 21:30 Oxycodone HCl (Roxicodone) 5 mg Q4H PRN PO .PAIN Last administered on 01/02/19 14:27; Admin Dose 5 MG; Start 12/05/18 at 21:30 Hydromorphone HCl (Dilaudid) 1 mg Q3H PRN IV .BREAKTHROUGH PAIN Last administered on 12/06/18 06:58; Admin Dose 1 MG; Start 12/05/18 at 21:30 Ondansetron HCl (Zofran Inj) 4 mg Q4H PRN IV NAUSEA/VOMITING; Start 12/06/18 at 21:30 Pantoprazole (Protonix Tab) 40 mg DAILY@06 PO Last administered on 01/02/19 05:47; Admin Dose 40 MG; Start 12/07/18 at 06:00 Simethicone (Mylicon) 80 mg TID PRN PO .GAS; Start 12/05/18 at 21:30 Senna/Docusate Sodium (Senokot-S) 2 tab BID PRN PO .CONSTIPATION Last administered on 12/06/18 08:54; Admin Dose 2 TAB; Start 12/05/18 at 21:30 Magnesium Hydroxide (Milk Of Mag) 30 ml HS PRN PO .CONSTIPATION; Start 12/05/18 at 21:30 Bisacodyl (Dulcolax Supp) 10 mg DAILY PRN [place] .CONSTIPATION; Start 12/05/18 at 21:30 Sodium Biphosphate/ Sodium Phosphate (Fleet Enema) 133 ml DAILY PRN [place] .CONSTIPATION; Start 12/05/18 at 21:30 Diphenhydramine HCl (Benadryl) 25 mg Q4H PRN IV .ITCHING; Start 12/05/18 at 21:30 Naloxone HCl (Narcan) 0.2 mg Q2M PRN IV .RESP RATE; Start 12/05/18 at 21:30 Bethanechol Chloride (Urecholine) 25 mg URINARY CATH D/C PRN PO UNABLE TO VOID; Start 12/05/18 at 21:30 Aspirin (Halfprin) 81 mg BID PO Last administered on 01/02/19 09:24; Admin Dose 81 MG; Start 12/06/18 at 09:00 Nystatin (Nystatin Powder) 1 applic BID TOP Last administered on 01/02/19 09:2 5; Admin Dose 1 APPLIC; Start 12/12/18 at 21:00 Albuterol (Proventil 0.083% (Neb)) 2.5 mg Q2H RESP THERAPY PRN HHN SHORTNESS OF BREATH; Start 12/15/18 at 12:00 Lidocaine (Lidoderm) 1 patch DAILY TD Last administered on 01/02/19 09:25; Admin Dose 1 PATCH; Start 12/15/18 at 12:00 Alteplase, Recombinant (Cathflo (Activase)) 2 mg MAY REPEAT X1 PRN CATHETER IF CATHETER REMAINS OCCULUDED Last administered on 12/17/18 13:20; Admin Dose 2 MG; Start 12/17/18 at 08:30 Gabapentin (Neurontin) 300 mg TID PO Last administered on 01/02/19 13:14; Admin Dose 300 MG; Start 12/22/18 at 13:00 Methocarbamol (Robaxin) 750 mg TID PO Last administered on 01/02/19 13:14; Admin Dose 750 MG; Start 12/28/18 at 13:00 Linezolid (Zyvox) 600 mg BID PO Last administered on 01/02/19 09:23; Admin Dose 600 MG; Start 12/28/18 at 15:00 Meropenem/Sodium Chloride 50 ml @ 100 mls/hr Q12 IVPB Last administered on 01/02/19 09:25; Admin Dose 100 MLS/HR; Start 12/28/18 at 21:00 Acetaminophen (Tylenol Tab) 1,000 mg Q6 PRN PO pain Last administered on 12/31/18 17:31; Admin Dose 1,000 MG; Start 12/28/18 at 21:30 Alteplase, Recombinant (Cathflo (Activase)) 2 mg MAY REPEAT X1 PRN CATHETER IF CATHETER REMAINS OCCULUDED Last administered on 12/29/18 16:53; Admin Dose 2 MG; Start 12/29/18 at 16:00 Sodium Hypochlorite (Dakins Diluted (1/40)) 1 applic DAILY TP Last administered on 01/01/19at 08:44; Admin Dose 1 APPLIC; Start 12/30/18 at 13:00 Sodium Hypochlorite (Dakins Diluted (1/40)) 1 applic BID TP Last administered on 01/02/19at 09:25; Admin Dose 1 APPLIC; Start 12/31/18 at 21:00 OZZIE SOLOMON NP Jan 02, 2019 15:36
--- NOTE | 2019-01-02 15:43 | PN ---
Date/Time of Note Date/Time of Note DATE: 01/02/19 TIME: 15:39 Assessment/Plan VTE Prophylaxis Risk score (from Ns)>0 risk: 3 SCD applied (from Ns): Yes Pharmacological prophylaxis: NA/contraindicated Pharm contraindication: surgical contra Lines/Catheters Urinary Cath still in place: No Assessment/Plan Hospital Course 1. Sepsis secondary secondary to decubitus ulcers and/or PICC line infection - Repeat sacral wound cultures continue to show Proteus and VRE -Recent blood cultures are negative - ID on board and appreciate recommendations. Concerns for line infection and will check blood cultures from PICC line site. If continue to spike elevated fevers, will need replacement of PICC 2. Septic R knee joint s/p I&D on 12/05/18- resolved - remains stable and incision site clean and dry - Continues to work with PT. - Ortho on board and recommendations appreciated. Continue IV antibiotics until 01/18 then will need to continue PO antibiotics - pain control 3. Left leg muscle spasm - Robaxin TID - replacing K 4. Sacral wound - repeat cultures continue to show VRE and Proteus -Previous hospitalist discussed with patient and son importance of airloss bed to prevent further breakdown of wound, was refused, using waffle cushion when in bedside chair -Wound care had recommending surgical consultation for debridement, consultation with Dr. Nation appreciated and patient is status post debridement, follow-up with bone biopsy 5. Chronic spinal disease - h/o significant stenosis of her spine. Lumbar spine and thoracic spine CT show signs of stenosis though no acute fractures. - continue lidocaine patch increased to 3 patches due to significant back pain 6. osteoarthritis - pain control 7. urinary tract infection- treated - Cultures grew Ecoli and lactobacillus - asymptomatic 8. Strep Bacteremia - continue current antibiotics - repeat cultures negative 9. Mechanical fall 10. Disposition - CM on board for SNF placement Result Diagram: 12/31/1843712/31/18437 Subjective 24 Hr Interval Summary Musculoskeletal: back pain Exam/Review of Systems Exam Vitals Vital Signs Date Temp Pulse Resp B/P (MAP) Pulse Ox O2 O2 Flow FiO2 Time Delivery Rate 01/02/19 98.0 76 18 130/62 92 Room Air 14:58 (84) Intake and Output 01/01/19 01/01/19 01/02/19 1414:59 22:59 06:59 IntakeIntake Total 50 ml 495 ml 100 ml BalanceBalance 50 ml 495 ml 100 ml Constitutional: alert, oriented Respiratory: clear to auscultation Cardiovascular: regular rate and rhythm Gastrointestinal: soft; No distended Musculoskeletal: nl extremities to inspection Medications Medication Current Medications Albuterol (Ventolin Hfa) 2 puff Q4H PRN INH WHEEZING AND SOB; Start 12/01/18 at 21:00; Status Hold Ascorbic Acid (Vitamin C) 500 mg BID PO Last administered on 01/02/19 09:23; Admin Dose 500 MG; Start 12/01/18 at 21:00 Bupropion HCl (Wellbutrin Xl) 300 mg DAILY PO Last administered on 01/02/19 09:24; Admin Dose 300 MG; Start 12/02/18 at 09:00 Cholecalciferol (Vitamin D) 1,000 unit DAILY PO Last administered on 01/02/19 09:23; Admin Dose 1,000 UNIT; Start 12/02/18 at 09:00 Diclofenac Sodium (Voltaren 1% Gel) 2 gm TID PRN TP PAIN; Start 12/01/18 at 21:00 Levothyroxine Sodium (Synthroid) 100 mcg BEFORE BREAKFAST PO Last administered on 01/02/19 05:46; Admin Dose 100 MCG; Start 12/02/18 at 07:00 Lisinopril (Zestril) 5 mg DAILY PO Last administered on 01/02/19 09:24; Admin Dose 5 MG; Start 12/02/18 at 09:00 Multivitamins Therapeutic (Theragran) 1 tab DAILY PO Last administered on 01/02/19 09:24; Admin Dose 1 TAB; Start 12/02/18 at 09:00 Polyethylene Glycol (Miralax) 17 gm DAILY PO Last administered on 12/29/18 08:33; Admin Dose 17 GM; Start 12/02/18 at 09:00 Senna (Senokot) 1 tab BID PO Last administered on 12/29/18 20:32; Admin Dose 1 TAB; Start 12/01/18 at 21:00 Vitamin B Complex/ Vitamin C (Berocca) 1 cap DAILY PO Last administered on 01/02/19 09:24; Admin Dose 1 CAP; Start 12/02/18 at 09:00 Fish Oil (Fish Oil) 1,000 mg DAILY PO Last administered on 01/02/19 09:24; Admin Dose 1,000 MG; Start 12/02/18 at 09:00 Docusate Sodium (Colace) 100 mg Q12H PRN PO .CONSTIPATION; Start 12/01/18 at 22:00 Bisacodyl (Dulcolax) 5 mg DAILY PRN PO .CONSTIPATION; Start 12/01/18 at 22:00 Lidocaine (Xylocaine 1% (Mpf)) 30 ml ONCE PRN INJ aspiration ; Start 12/04/18 at 17:30 IV Flush (NS 3 ml) 3 ml PER PROTOCOL IV ; Start 12/05/18 at 21:30 Oxycodone HCl (Roxicodone) 15 mg Q4H PRN PO .PAIN Last administered on 12/30/18 13:42; Admin Dose 5 MG; Start 12/05/18 at 21:30 Oxycodone HCl (Roxicodone) 10 mg Q4H PRN PO .PAIN Last administered on 12/18/18 03:37; Admin Dose 10 MG; Start 12/05/18 at 21:30 Oxycodone HCl (Roxicodone) 5 mg Q4H PRN PO .PAIN Last administered on 01/02/19 14:27; Admin Dose 5 MG; Start 12/05/18 at 21:30 Hydromorphone HCl (Dilaudid) 1 mg Q3H PRN IV .BREAKTHROUGH PAIN Last administered on 12/06/18 06:58; Admin Dose 1 MG; Start 12/05/18 at 21:30 Ondansetron HCl (Zofran Inj) 4 mg Q4H PRN IV NAUSEA/VOMITING; Start 12/06/18 at 21:30 Pantoprazole (Protonix Tab) 40 mg DAILY@06 PO Last administered on 01/02/19 05:47; Admin Dose 40 MG; Start 12/07/18 at 06:00 Simethicone (Mylicon) 80 mg TID PRN PO .GAS; Start 12/05/18 at 21:30 Senna/Docusate Sodium (Senokot-S) 2 tab BID PRN PO .CONSTIPATION Last administered on 12/06/18 08:54; Admin Dose 2 TAB; Start 12/05/18 at 21:30 Magnesium Hydroxide (Milk Of Mag) 30 ml HS PRN PO .CONSTIPATION; Start 12/05/18 at 21:30 Bisacodyl (Dulcolax Supp) 10 mg DAILY PRN [place] .CONSTIPATION; Start 12/05/18 at 21:30 Sodium Biphosphate/ Sodium Phosphate (Fleet Enema) 133 ml DAILY PRN [place] .CONSTIPATION; Start 12/05/18 at 21:30 Diphenhydramine HCl (Benadryl) 25 mg Q4H PRN IV .ITCHING; Start 12/05/18 at 21:30 Naloxone HCl (Narcan) 0.2 mg Q2M PRN IV .RESP RATE; Start 12/05/18 at 21:30 Bethanechol Chloride (Urecholine) 25 mg URINARY CATH D/C PRN PO UNABLE TO VOID; Start 12/05/18 at 21:30 Aspirin (Halfprin) 81 mg BID PO Last administered on 01/02/19 09:24; Admin Dose 81 MG; Start 12/06/18 at 09:00 Nystatin (Nystatin Powder) 1 applic BID TOP Last administered on 01/02/19 09:25; Admin Dose 1 APPLIC; Start 12/12/18 at 21:00 Albuterol (Proventil 0.083% (Neb)) 2.5 mg Q2H RESP THERAPY PRN HHN SHORTNESS OF BREATH; Start 12/15/18 at 12:00 Lidocaine (Lidoderm) 1 patch DAILY TD Last administered on 01/02/19 09:25; Admin Dose 1 PATCH; Start 12/15/18 at 12:00 Alteplase, Recombinant (Cathflo (Activase)) 2 mg MAY REPEAT X1 PRN CATHETER IF CATHETER REMAINS OCCULUDED Last administered on 12/17/18 13:20; Admin Dose 2 MG; Start 12/17/18 at 08:30 Gabapentin (Neurontin) 300 mg TID PO Last administered on 01/02/19 13:14; Admin Dose 300 MG; Start 12/22/18 at 13:00 Methocarbamol (Robaxin) 750 mg TID PO Last administered on 01/02/19 13:14; Admin Dose 750 MG; Start 12/28/18 at 13:00 Linezolid (Zyvox) 600 mg BID PO Last administered on 01/02/19 09:23; Admin Dose 600 MG; Start 12/28/18 at 15:00 Meropenem/Sodium Chloride 50 ml @ 100 mls/hr Q12 IVPB Last administered on 01/02/19 09:25; Admin Dose 100 MLS/HR; Start 12/28/18 at 21:00 Acetaminophen (Tylenol Tab) 1,000 mg Q6 PRN PO pain Last administered on 12/31/18 17:31; Admin Dose 1,000 MG; Start 12/28/18 at 21:30 Alteplase, Recombinant (Cathflo (Activase)) 2 mg MAY REPEAT X1 PRN CATHETER IF CATHETER REMAINS OCCULUDED Last administered on 12/29/18 16:53; Admin Dose 2 MG; Start 12/29/18 at 16:00 Sodium Hypochlorite (Dakins Diluted (1/40)) 1 applic DAILY TP Last administered on 01/01/19 08:44; Admin Dose 1 APPLIC; Start 12/30/18 at 13:00 Sodium Hypochlorite (Dakins Diluted (1/40)) 1 applic BID TP Last administered on 01/02/19 09:25; Admin Dose 1 APPLIC; Start 12/31/18 at 21:00 TERESA COSBY Jan 02, 2019 15:43
--- NOTE | 2019-01-02 17:49 | CONS ---
Assessment/Plan Assessment/Plan Assessment/Plan (Daily) Preoperative cardiac risk stratification Septic arthritis status post surgery 12/05/2018 Preserved ejection fraction Hypertension -Denies symptoms of chest pain, shortness of breath or palpitations. -BP trend overall well controlled. Continue lisinopril as needed Consultation Date/Type/Reason Admit Date/Time Dec 01, 2018 at 19:24 Initial Consult Date 12/04/18 Type of Consult Cardiology Requesting Provider: TERESA COSBY Date/Time of Note DATE: 01/02/19 TIME: 17:49 24 HR Interval Summary Free Text/Dictation the aptient wtih no chage Exam/Review of Systems Vital Signs Vitals Vital Signs Date Temp Pulse Resp B/P (MAP) Pulse Ox O2 O2 Flow FiO2 Time Delivery Rate 01/02/19 98.0 76 18 130/62 92 Room Air 14:58 (84) Intake and Output 01/01/19 01/01/19 01/02/19 1515:00 23:00 07:00 IntakeIntake Total 50 ml 495 ml 100 ml BalanceBalance 50 ml 495 ml 100 ml Labs Result Diagram: 12/31/18 0438 12/31/18 0438 Medications Medications Current Medications Albuterol (Ventolin Hfa) 2 puff Q4H PRN INH WHEEZING AND SOB; Start 12/01/18 at 21:00; Status Hold Ascorbic Acid (Vitamin C) 500 mg BID PO Last administered on 01/02/19at 09:23; Admin Dose 500 MG; Start 12/01/18 at 21:00 Bupropion HCl (Wellbutrin Xl) 300 mg DAILY PO Last administered on 01/02/19at 09:24; Admin Dose 300 MG; Start 12/02/18 at 09:00 Cholecalciferol (Vitamin D) 1,000 unit DAILY PO Last administered on 01/02/19at 09:23; Admin Dose 1,000 UNIT; Start 12/02/18 at 09:00 Diclofenac Sodium (Voltaren 1% Gel) 2 gm TID PRN TP PAIN; Start 12/01/18 at 21:00 Levothyroxine Sodium (Synthroid) 100 mcg BEFORE BREAKFAST PO Last administered on 01/02/19at 05:46; Admin Dose 100 MCG; Start 12/02/18 at 07:00 Lisinopril (Zestril) 5 mg DAILY PO Last administered on 01/02/19 09:24; Admin Dose 5 MG; Start 12/02/18 at 09:00 Multivitamins Therapeutic (Theragran) 1 tab DAILY PO Last administered on 01/02/19 09:24; Admin Dose 1 TAB; Start 12/02/18 at 09:00 Polyethylene Glycol (Miralax) 17 gm DAILY PO Last administered on 12/29/18 08:33; Admin Dose 17 GM; Start 12/02/18 at 09:00 Senna (Senokot) 1 tab BID PO Last administered on 12/29/18 20:32; Admin Dose 1 TAB; Start 12/01/18 at 21:00 Vitamin B Complex/ Vitamin C (Berocca) 1 cap DAILY PO Last administered on 01/02/19 09:24; Admin Dose 1 CAP; Start 12/02/18 at 09:00 Fish Oil (Fish Oil) 1,000 mg DAILY PO Last administered on 01/02/19 09:24; Admin Dose 1,000 MG; Start 12/02/18 at 09:00 Docusate Sodium (Colace) 100 mg Q12H PRN PO .CONSTIPATION; Start 12/01/18 at 22:00 Bisacodyl (Dulcolax) 5 mg DAILY PRN PO .CONSTIPATION; Start 12/01/18 at 22:00 Lidocaine (Xylocaine 1% (Mpf)) 30 ml ONCE PRN INJ aspiration ; Start 12/04/18 at 17:30 IV Flush (NS 3 ml) 3 ml PER PROTOCOL IV ; Start 12/05/18 at 21:30 Oxycodone HCl (Roxicodone) 15 mg Q4H PRN PO .PAIN Last administered on 12/30/18 13:42; Admin Dose 5 MG; Start 12/05/18 at 21:30 Oxycodone HCl (Roxicodone) 10 mg Q4H PRN PO .PAIN Last administered on 12/18/18 03:37; Admin Dose 10 MG; Start 12/05/18 at 21:30 Oxycodone HCl (Roxicodone) 5 mg Q4H PRN PO .PAIN Last administered on 01/02/19 14:27; Admin Dose 5 MG; Start 12/05/18 at 21:30 Hydromorphone HCl (Dilaudid) 1 mg Q3H PRN IV .BREAKTHROUGH PAIN Last administered on 12/06/18at 06:58; Admin Dose 1 MG; Start 12/05/18 at 21:30 Ondansetron HCl (Zofran Inj) 4 mg Q4H PRN IV NAUSEA/VOMITING; Start 12/06/18 at 21:30 Pantoprazole (Protonix Tab) 40 mg DAILY@06 PO Last administered on 01/02/19at 05:47; Admin Dose 40 MG; Start 12/07/18 at 06:00 Simethicone (Mylicon) 80 mg TID PRN PO .GAS; Start 12/05/18 at 21:30 Senna/Docusate Sodium (Senokot-S) 2 tab BID PRN PO .CONSTIPATION Last administered on 12/06/18at 08:54; Admin Dose 2 TAB; Start 12/05/18 at 21:30 Magnesium Hydroxide (Milk Of Mag) 30 ml HS PRN PO .CONSTIPATION; Start 12/05/18 at 21:30 Bisacodyl (Dulcolax Supp) 10 mg DAILY PRN [place] .CONSTIPATION; Start 12/05/18 at 21:30 Sodium Biphosphate/ Sodium Phosphate (Fleet Enema) 133 ml DAILY PRN [place] .CONSTIPATION; Start 12/05/18 at 21:30 Diphenhydramine HCl (Benadryl) 25 mg Q4H PRN IV .ITCHING; Start 12/05/18 at 21:30 Naloxone HCl (Narcan) 0.2 mg Q2M PRN IV .RESP RATE; Start 12/05/18 at 21:30 Bethanechol Chloride (Urecholine) 25 mg URINARY CATH D/C PRN PO UNABLE TO VOID; Start 12/05/18 at 21:30 Aspirin (Halfprin) 81 mg BID PO Last administered on 01/02/19at 09:24; Admin Dose 81 MG; Start 12/06/18 at 09:00 Nystatin (Nystatin Powder) 1 applic BID TOP Last administered on 01/02/19at 09:25; Admin Dose 1 APPLIC; Start 12/12/18 at 21:00 Albuterol (Proventil 0.083% (Neb)) 2.5 mg Q2H RESP THERAPY PRN HHN SHORTNESS OF BREATH; Start 12/15/18 at 12:00 Alteplase, Recombinant (Cathflo (Activase)) 2 mg MAY REPEAT X1 PRN CATHETER IF CATHETER REMAINS OCCULUDED Last administered on 12/17/18 13:20; Admin Dose 2 MG; Start 12/17/18 at 08:30 Gabapentin (Neurontin) 300 mg TID PO Last administered on 01/02/19 13:14; Admin Dose 300 MG; Start 12/22/18 at 13:00 Methocarbamol (Robaxin) 750 mg TID PO Last administered on 01/02/19 13:14; Admin Dose 750 MG; Start 12/28/18 at 13:00 Linezolid (Zyvox) 600 mg BID PO Last administered on 01/02/19 09:23; Admin Dose 600 MG; Start 12/28/18 at 15:00 Meropenem/Sodium Chloride 50 ml @ 100 mls/hr Q12 IVPB Last administered on 01/02/19 09:25; Admin Dose 100 MLS/HR; Start 12/28/18 at 21:00 Acetaminophen (Tylenol Tab) 1,000 mg Q6 PRN PO pain Last administered on 12/31/18 17:31; Admin Dose 1,000 MG; Start 12/28/18 at 21:30 Alteplase, Recombinant (Cathflo (Activase)) 2 mg MAY REPEAT X1 PRN CATHETER IF CATHETER REMAINS OCCULUDED Last administered on 12/29/18 16:53; Admin Dose 2 MG; Start 12/29/18 at 16:00 Sodium Hypochlorite (Dakins Diluted (1/40)) 1 applic DAILY TP Last administered on 01/01/19 08:44; Admin Dose 1 APPLIC; Start 12/30/18 at 13:00 Sodium Hypochlorite (Dakins Diluted (1/40)) 1 applic BID TP Last administered on 01/02/19 09:25; Admin Dose 1 APPLIC; Start 12/31/18 at 21:00 Lidocaine (Lidoderm) 3 patch DAILY TD ; Start 01/03/19 at 09:00 PATRICK LAWRENCE MD Jan 02, 2019 17:49
[2019-01-02 20:04] VITALS: BP 114/52; PULSE 72; RESP 18
[2019-01-03 02:19] VITALS: BP 114/56; PULSE 87; RESP 18
[2019-01-03] MEDS: LEVOTHYROXINE 100 MCG TAB PO SCH (07:24)
[2019-01-03] MEDS: PANTOPRAZOLE (EC) 40 MG TAB PO SCH (07:24)
[2019-01-03 08:08] VITALS: BP 118/60; PULSE 88; RESP 18
[2019-01-03] MEDS: SENNA TAB PO SCH ×2 (09:00→21:00)
[2019-01-03] MEDS: POLYETHYLENE GLYCOL 17 GM PACKET PO SCH (09:00)
[2019-01-03] MEDS: BUPROPION (XL) 150 MG TAB PO SCH (09:04)
[2019-01-03] MEDS: ZYVOX 600 MG TAB PO SCH ×2 (09:04→22:35)
[2019-01-03] MEDS: VITAMIN B COMPLEX/VIT C CAP PO SCH (09:04)
[2019-01-03] MEDS: CHOLECALCIFEROL 1,000 UNIT TAB PO SCH (09:04)
[2019-01-03] MEDS: LISINOPRIL 5 MG TAB PO SCH (09:05)
[2019-01-03] MEDS: GABAPENTIN 300 MG CAP PO SCH ×3 (09:05→22:35)
[2019-01-03] MEDS: METHOCARBAMOL 750 MG TAB PO SCH ×3 (09:05→22:35)
[2019-01-03] MEDS: MULTIVITAMINS THERAPEUTIC TAB PO SCH (09:05)
[2019-01-03] MEDS: ASPIRIN (EC) 81 MG TAB PO SCH ×2 (09:05→22:35)
[2019-01-03] MEDS: FISH OIL 1,000 MG CAP PO SCH (09:05)
[2019-01-03] MEDS: NYSTATIN 30 GM POWDER BTL TOP SCH ×2 (09:06→21:00)
[2019-01-03] MEDS: MEROPENEM 1 GM/50ML(PMX) 50 ML IVPB SCH ×2 (09:06→22:35)
[2019-01-03] MEDS: LIDOCAINE 5% PATCH TD SCH (09:06)
[2019-01-03] MEDS: ASCORBIC ACID 500 MG TAB PO SCH ×2 (09:17→22:35)
--- NOTE | 2019-01-03 11:33 | CONS ---
Assessment/Plan Assessment/Plan Hospital Course (Demo Recall) No acute events Antimicrobials: Merrem, Zyvox Microbiology: Blood culture on admission grew strep, urine culture grew E. coli, MRSA swab negative, repeat blood cultures negative. Sacral wound cx + VRE/Proteus/Strep 2D echo revealed no vegetations Physical examination: This is well-developed well-nourished elderly woman who is alert in no distress. Head atraumatic normocephalic neck is supple. Chest rise symmetrical breath sounds clear. Heart: S1-S2. Abdomen soft, bowel tones present. Extremities wnl Assessment: 1. S/p fevers 2 to sacral wound==> s/p debridement 2. Status post sepsis, present on admission 3. S/p streptococcal bacteremia 2 to #4 4. 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 S/p urinary tract infection 6. History of left total knee replacement 7. History of multilevel discectomy and posterior fusion from L1-L3, please see CT in the chart Plan: Remains stable, per dw surgery pt will need another debridement next week, continue current antibiotics for treatment of her wound for at least 7 more days, then complete treatment with Rocephin till January 09. Pt to f/u with ortho Consultation Date/Type/Reason Admit Date/Time Dec 01, 2018 at 19:24 Initial Consult Date Type of Consult id Requesting Provider: TERESA COSBY Date/Time of Note DATE: 01/03/19 TIME: 11:32 Exam/Review of Systems Exam Vitals Vital Signs Date Temp Pulse Resp B/P (MAP) Pulse Ox O2 O2 Flow FiO2 Time Delivery Rate 01/03/19 98.0 88 18 118/60 94 Room Air 08:08 (79) Intake and Output 01/02/19 01/02/19 01/03/19 1515:00 23:00 07:00 IntakeIntake Total 850 ml 410 ml BalanceBalance 850 ml 410 ml Results Result Diagram: 12/31/18 0438 12/31/18 0438 Medications Medication Current Medications Albuterol (Ventolin Hfa) 2 puff Q4H PRN INH WHEEZING AND SOB; Start 12/01/18 at 21:00; Status Hold Ascorbic Acid (Vitamin C) 500 mg BID PO Last administered on 01/03/19at 09:17; Admin Dose 500 MG; Start 12/01/18 at 21:00 Bupropion HCl (Wellbutrin Xl) 300 mg DAILY PO Last administered on 01/03/19 09:04; Admin Dose 300 MG; Start 12/02/18 at 09:00 Cholecalciferol (Vitamin D) 1,000 unit DAILY PO Last administered on 01/03/19 09:04; Admin Dose 1,000 UNIT; Start 12/02/18 at 09:00 Diclofenac Sodium (Voltaren 1% Gel) 2 gm TID PRN TP PAIN; Start 12/01/18 at 21:00 Levothyroxine Sodium (Synthroid) 100 mcg BEFORE BREAKFAST PO Last administered on 01/03/19 07:24; Admin Dose 100 MCG; Start 12/02/18 at 07:00 Lisinopril (Zestril) 5 mg DAILY PO Last administered on 01/03/19 09:05; Admin Dose 5 MG; Start 12/02/18 at 09:00 Multivitamins Therapeutic (Theragran) 1 tab DAILY PO Last administered on 01/03/19 09:05; Admin Dose 1 TAB; Start 12/02/18 at 09:00 Polyethylene Glycol (Miralax) 17 gm DAILY PO Last administered on 12/29/18 08:33; Admin Dose 17 GM; Start 12/02/18 at 09:00 Senna (Senokot) 1 tab BID PO Last administered on 12/29/18 20:32; Admin Dose 1 TAB; Start 12/01/18 at 21:00 Vitamin B Complex/ Vitamin C (Berocca) 1 cap DAILY PO Last administered on 01/03/19 09:04; Admin Dose 1 CAP; Start 12/02/18 at 09:00 Fish Oil (Fish Oil) 1,000 mg DAILY PO Last administered on 01/03/19 09:05; Admin Dose 1,000 MG; Start 12/02/18 at 09:00 Docusate Sodium (Colace) 100 mg Q12H PRN PO .CONSTIPATION; Start 12/01/18 at 22:00 Bisacodyl (Dulcolax) 5 mg DAILY PRN PO .CONSTIPATION; Start 12/01/18 at 22:00 Lidocaine (Xylocaine 1% (Mpf)) 30 ml ONCE PRN INJ aspiration ; Start 12/04/18 at 17:30 IV Flush (NS 3 ml) 3 ml PER PROTOCOL IV ; Start 12/05/18 at 21:30 Oxycodone HCl (Roxicodone) 15 mg Q4H PRN PO .PAIN Last administered on 12/30/18 13:42; Admin Dose 5 MG; Start 12/05/18 at 21:30 Oxycodone HCl (Roxicodone) 10 mg Q4H PRN PO .PAIN Last administered on 12/18/18 03:37; Admin Dose 10 MG; Start 12/05/18 at 21:30 Oxycodone HCl (Roxicodone) 5 mg Q4H PRN PO .PAIN Last administered on 01/02/19 14:27; Admin Dose 5 MG; Start 12/05/18 at 21:30 Hydromorphone HCl (Dilaudid) 1 mg Q3H PRN IV .BREAKTHROUGH PAIN Last administered on 12/06/18 06:58; Admin Dose 1 MG; Start 12/05/18 at 21:30 Ondansetron HCl (Zofran Inj) 4 mg Q4H PRN IV NAUSEA/VOMITING; Start 12/06/18 at 21:30 Pantoprazole (Protonix Tab) 40 mg DAILY@06 PO Last administered on 01/03/19 07:24; Admin Dose 40 MG; Start 12/07/18 at 06:00 Simethicone (Mylicon) 80 mg TID PRN PO .GAS; Start 12/05/18 at 21:30 Senna/Docusate Sodium (Senokot-S) 2 tab BID PRN PO .CONSTIPATION Last administered on 12/06/18 08:54; Admin Dose 2 TAB; Start 12/05/18 at 21:30 Magnesium Hydroxide (Milk Of Mag) 30 ml HS PRN PO .CONSTIPATION; Start 12/05/18 at 21:30 Bisacodyl (Dulcolax Supp) 10 mg DAILY PRN [place] .CONSTIPATION; Start 12/05/18 at 21:30 Sodium Biphosphate/ Sodium Phosphate (Fleet Enema) 133 ml DAILY PRN [place] .CONSTIPATION; Start 12/05/18 at 21:30 Diphenhydramine HCl (Benadryl) 25 mg Q4H PRN IV .ITCHING; Start 12/05/18 at 21:30 Naloxone HCl (Narcan) 0.2 mg Q2M PRN IV .RESP RATE; Start 12/05/18 at 21:30 Bethanechol Chloride (Urecholine) 25 mg URINARY CATH D/C PRN PO UNABLE TO VOID; Start 12/05/18 at 21:30 Aspirin (Halfprin) 81 mg BID PO Last administered on 01/03/19 09:05; Admin Dose 81 MG; Start 12/06/18 at 09:00 Nystatin (Nystatin Powder) 1 applic BID TOP Last administered on 01/03/19 09:06; Admin Dose 1 APPLIC; Start 12/12/18 at 21:00 Albuterol (Proventil 0.083% (Neb)) 2.5 mg Q2H RESP THERAPY PRN HHN SHORTNESS OF BREATH; Start 12/15/18 at 12:00 Alteplase, Recombinant (Cathflo (Activase)) 2 mg MAY REPEAT X1 PRN CATHETER IF CATHETER REMAINS OCCULUDED Last administered on 12/17/18 13:20; Admin Dose 2 MG; Start 12/17/18 at 08:30 Gabapentin (Neurontin) 300 mg TID PO Last administered on 01/03/19 09:05; Admin Dose 300 MG; Start 12/22/18 at 13:00 Methocarbamol (Robaxin) 750 mg TID PO Last administered on 01/03/19 09:05; Admin Dose 750 MG; Start 12/28/18 at 13:00 Linezolid (Zyvox) 600 mg BID PO Last administered on 01/03/19 09:04; Admin Dose 600 MG; Start 12/28/18 at 15:00 Meropenem/Sodium Chloride 50 ml @ 100 mls/hr Q12 IVPB Last administered on 01/03/19 09:06; Admin Dose 100 MLS/HR; Start 12/28/18 at 21:00 Acetaminophen (Tylenol Tab) 1,000 mg Q6 PRN PO pain Last administered on 12/31/18 17:31; Admin Dose 1,000 MG; Start 12/28/18 at 21:30 Alteplase, Recombinant (Cathflo (Activase)) 2 mg MAY REPEAT X1 PRN CATHETER IF CATHETER REMAINS OCCULUDED Last administered on 12/29/18 16:53; Admin Dose 2 MG; Start 12/29/18 at 16:00 Sodium Hypochlorite (Dakins Diluted (1/40)) 1 applic BID TP Last administered on 01/02/19at 21:25; Admin Dose 1 APPLIC; Start 12/31/18 at 21:00 Lidocaine (Lidoderm) 3 patch DAILY TD Last administered on 01/03/19at 09:06; Admin Dose 3 PATCH; Start 01/03/19 at 09:00 OZZIE SOLOMON NP Jan 03, 2019 11:33
[2019-01-03] MEDS: DAKINS 0.0125%(1/40) 473 ML SOLUTION TP SCH ×2 (12:10→22:41)
[2019-01-03] MEDS: BALSAM PERU/CASTOR OIL 60 GM TUBE TOP SCH ×2 (12:10→22:40)
--- NOTE | 2019-01-03 13:15 | PN ---
Date/Time of Note Date/Time of Note DATE: 01/03/19 TIME: 13:12 Assessment/Plan Lines/Catheters IV Catheter Type (from [facility]): PICC Line Schaeffer in Place (from [facility]): No Assessment/Plan Chief Complaint/Hosp Course 1. Sacral wound: + Wound cultures; debridement 01/01/2019; pending bone pathology -Repeat debridement as needed> can follow with Dr. Nation at wound care clinic (APC consult ordered) -Continue local care -frequent turning and off-loading -low air loss mattress -vitamin c -short term zinc -optimize nutrition 2. Bacteremia: Repeat blood culture: NGTD -Antibiotics per sensitivities 3.Septic right knee joint status post I&D: -Per Ortho 4. Spine disease: Status post spinal surgeries -Supportive 5.UTI: -abx per sensitivity -frequent bladder emptying/cath care 6. Osteoarthritis: -Medical management Thank you. Patient seen and examined in collaboration with Dr. Fernandez Nation Subjective 24 Hr Interval Summary Feels well. No fevers, chills, sob, congested cough, cp, palpitations, ruano, dizziness, nausea, vomiting, diarrhea, dysuria. Exam/Review of Systems Vital Signs Vitals Vital Signs Date Temp Pulse Resp B/P (MAP) Pulse Ox O2 O2 Flow FiO2 Time Delivery Rate 01/03/19 98.0 88 18 118/60 94 Room Air 08:08 (79) Intake and Output 01/02/19 01/02/19 01/03/19 1515:00 23:00 07:00 IntakeIntake Total 850 ml 410 ml BalanceBalance 850 ml 410 ml Exam Free Text/Dictation Constitutional: alert, oriented Psych: nl mood/affect; No anxiety Head: normocephalic, atraumatic Eyes: nl conjunctiva, EOMI, nl lids, nl sclera ENMT: nl external ears & nose, nl lips & teeth, nl nasal mucosa & septum, mucosa pink and moist Neck: supple, non-tender; No jvd Respiratory: normal air movement; No congested cough Cardiovascular: regular rate and rhythm, nl pulses; No edema Gastrointestinal: soft, non-tender; No distended Genitourinary - Female: nl external genitalia Musculoskeletal: nl extremities to inspection; No nl gait and stance Extremities: normal pulses Neurological: nl mental status, nl speech, nl strength Skin: nl turgor, other (Sacrum: Slough, minimal drainage, improved odor, mi nimal periwound erythema) Lymph: nl lymph nodes Results Result Diagram: 12/31/18 0438 12/31/18 0438 YESSICA ALAMO NP Jan 03, 2019 13:15
[2019-01-03 14:31] VITALS: BP 108/58; PULSE 85; RESP 18
--- NOTE | 2019-01-03 15:54 | PN ---
Date/Time of Note Date/Time of Note DATE: 01/03/19 TIME: 15:53 Assessment/Plan VTE Prophylaxis Risk score (from Ns)>0 risk: 4 SCD applied (from Ns): Yes Pharmacological prophylaxis: NA/contraindicated Pharm contraindication: low risk/ambulating Lines/Catheters Urinary Cath still in place: No Assessment/Plan Hospital Course 1. Sepsis secondary secondary to decubitus ulcers and/or PICC line infection - Repeat sacral wound cultures continue to show Proteus and VRE -Recent blood cultures are negative - ID on board and appreciate recommendations. Concerns for line infection and will check blood cultures from PICC line site. If continue to spike elevated fevers, will need replacement of PICC 2. Septic R knee joint s/p I&D on 12/05/18- resolved - remains stable and incision site clean and dry - Continues to work with PT. - Ortho on board and recommendations appreciated. Continue IV antibiotics until 01/18 then will need to continue PO antibiotics - pain control 3. Left leg muscle spasm - Robaxin TID - replacing K 4. Sacral wound - repeat cultures continue to show VRE and Proteus -Previous hospitalist discussed with patient and son importance of airloss bed to prevent further breakdown of wound, was refused, using waffle cushion when in bedside chair -Wound care had recommending surgical consultation for debridement, consultation with Dr. Nation appreciated and patient is status post debridement -Bone biopsy shows necrosis, negative for malignancy 5. Chronic spinal disease - h/o significant stenosis of her spine. Lumbar spine and thoracic spine CT show signs of stenosis though no acute fractures. - continue lidocaine patch which was increased to 3 patches due to significant back pain, back pain now improved 6. osteoarthritis - pain control 7. urinary tract infection- treated - Cultures grew Ecoli and lactobacillus - asymptomatic 8. Strep Bacteremia - continue current antibiotics - repeat cultures negative 9. Mechanical fall 10. Disposition - CM on board for SNF placement Result Diagram: 12/31/18 0438 12/31/18 0438 Subjective 24 Hr Interval Summary Constitutional: no complaints Exam/Review of Systems Exam Vitals Vital Signs Date Temp Pulse Resp B/P (MAP) Pulse Ox O2 O2 Flow FiO2 Time Delivery Rate 01/03/19 98.3 85 18 108/58 99 Room Air 14:31 (75) Intake and Output 01/02/19 01/02/19 01/03/19 1515:00 23:00 07:00 IntakeIntake Total 850 ml 410 ml BalanceBalance 850 ml 410 ml Constitutional: alert, oriented Respiratory: clear to auscultation Cardiovascular: regular rate and rhythm Gastrointestinal: soft; No distended Musculoskeletal: nl extremities to inspection Medications Medication Current Medications Albuterol (Ventolin Hfa) 2 puff Q4H PRN INH WHEEZING AND SOB; Start 12/01/18 at 21:00; Status Hold Ascorbic Acid (Vitamin C) 500 mg BID PO Last administered on 01/03/19 09:17; Admin Dose 500 MG; Start 12/01/18 at 21:00 Bupropion HCl (Wellbutrin Xl) 300 mg DAILY PO Last administered on 01/03/19 09:04; Admin Dose 300 MG; Start 12/02/18 at 09:00 Cholecalciferol (Vitamin D) 1,000 unit DAILY PO Last administered on 01/03/19 09:04; Admin Dose 1,000 UNIT; Start 12/02/18 at 09:00 Diclofenac Sodium (Voltaren 1% Gel) 2 gm TID PRN TP PAIN; Start 12/01/18 at 21:00 Levothyroxine Sodium (Synthroid) 100 mcg BEFORE BREAKFAST PO Last administered on 01/03/19 07:24; Admin Dose 100 MCG; Start 12/02/18 at 07:00 Lisinopril (Zestril) 5 mg DAILY PO Last administered on 01/03/19 09:05; Admin Dose 5 MG; Start 12/02/18 at 09:00 Multivitamins Therapeutic (Theragran) 1 tab DAILY PO Last administered on 01/03/19 09:05; Admin Dose 1 TAB; Start 12/02/18 at 09:00 Polyethylene Glycol (Miralax) 17 gm DAILY PO Last administered on 12/29/18 08:33; Admin Dose 17 GM; Start 12/02/18 at 09:00 Senna (Senokot) 1 tab BID PO Last administered on 12/29/18 20:32; Admin Dose 1 TAB; Start 12/01/18 at 21:00 Vitamin B Complex/ Vitamin C (Berocca) 1 cap DAILY PO Last administered on 01/03/19 09:04; Admin Dose 1 CAP; Start 12/02/18 at 09:00 Fish Oil (Fish Oil) 1,000 mg DAILY PO Last administered on 01/03/19 09:05; Admin Dose 1,000 MG; Start 12/02/18 at 09:00 Docusate Sodium (Colace) 100 mg Q12H PRN PO .CONSTIPATION; Start 12/01/18 at 22:00 Bisacodyl (Dulcolax) 5 mg DAILY PRN PO .CONSTIPATION; Start 12/01/18 at 22:00 Lidocaine (Xylocaine 1% (Mpf)) 30 ml ONCE PRN INJ aspiration ; Start 12/04/18 at 17:30 IV Flush (NS 3 ml) 3 ml PER PROTOCOL IV ; Start 12/05/18 at 21:30 Oxycodone HCl (Roxicodone) 15 mg Q4H PRN PO .PAIN Last administered on 12/30/18 13:42; Admin Dose 5 MG; Start 12/05/18 at 21:30 Oxycodone HCl (Roxicodone) 10 mg Q4H PRN PO .PAIN Last administered on 12/18/18 03:37; Admin Dose 10 MG; Start 12/05/18 at 21:30 Oxycodone HCl (Roxicodone) 5 mg Q4H PRN PO .PAIN Last administered on 01/02/19 14:27; Admin Dose 5 MG; Start 12/05/18 at 21:30 Hydromorphone HCl (Dilaudid) 1 mg Q3H PRN IV .BREAKTHROUGH PAIN Last administered on 12/06/18 06:58; Admin Dose 1 MG; Start 12/05/18 at 21:30 Ondansetron HCl (Zofran Inj) 4 mg Q4H PRN IV NAUSEA/VOMITING; Start 12/06/18 at 21:30 Pantoprazole (Protonix Tab) 40 mg DAILY@06 PO Last administered on 01/03/19 07:24; Admin Dose 40 MG; Start 12/07/18 at 06:00 Simethicone (Mylicon) 80 mg TID PRN PO .GAS; Start 12/05/18 at 21:30 Senna/Docusate Sodium (Senokot-S) 2 tab BID PRN PO .CONSTIPATION Last administered on 12/06/18 08:54; Admin Dose 2 TAB; Start 12/05/18 at 21:30 Magnesium Hydroxide (Milk Of Mag) 30 ml HS PRN PO .CONSTIPATION; Start 12/05/18 at 21:30 Bisacodyl (Dulcolax Supp) 10 mg DAILY PRN [place] .CONSTIPATION; Start 12/05/18 at 21:30 Sodium Biphosphate/ Sodium Phosphate (Fleet Enema) 133 ml DAILY PRN [place] .CONSTIPATION; Start 12/05/18 at 21:30 Diphenhydramine HCl (Benadryl) 25 mg Q4H PRN IV .ITCHING; Start 12/05/18 at 21:30 Naloxone HCl (Narcan) 0.2 mg Q2M PRN IV .RESP RATE; Start 12/05/18 at 21:30 Bethanechol Chloride (Urecholine) 25 mg URINARY CATH D/C PRN PO UNABLE TO VOID; Start 12/05/18 at 21:30 Aspirin (Halfprin) 81 mg BID PO Last administered on 01/03/19 09:05; Admin Dose 81 MG; Start 12/06/18 at 09:00 Nystatin (Nystatin Powder) 1 applic BID TOP Last administered on 01/03/19 09:06; Admin Dose 1 APPLIC; Start 12/12/18 at 21:00 Albuterol (Proventil 0.083% (Neb)) 2.5 mg Q2H RESP THERAPY PRN HHN SHORTNESS OF BREATH; Start 12/15/18 at 12:00 Alteplase, Recombinant (Cathflo (Activase)) 2 mg MAY REPEAT X1 PRN CATHETER IF CATHETER REMAINS OCCULUDED Last administered on 12/17/18 13:20; Admin Dose 2 MG; Start 12/17/18 at 08:30 Gabapentin (Neurontin) 300 mg TID PO Last administered on 01/03/19 13:42; Adm in Dose 300 MG; Start 12/22/18 at 13:00 Methocarbamol (Robaxin) 750 mg TID PO Last administered on 01/03/19 13:42; Admin Dose 750 MG; Start 12/28/18 at 13:00 Linezolid (Zyvox) 600 mg BID PO Last administered on 01/03/19 09:04; Admin Dose 600 MG; Start 12/28/18 at 15:00 Meropenem/Sodium Chloride 50 ml @ 100 mls/hr Q12 IVPB Last administered on 01/03/19 09:06; Admin Dose 100 MLS/HR; Start 12/28/18 at 21:00 Acetaminophen (Tylenol Tab) 1,000 mg Q6 PRN PO pain Last administered on 12/31/18 17:31; Admin Dose 1,000 MG; Start 12/28/18 at 21:30 Alteplase, Recombinant (Cathflo (Activase)) 2 mg MAY REPEAT X1 PRN CATHETER IF CATHETER REMAINS OCCULUDED Last administered on 12/29/18 16:53; Admin Dose 2 MG; Start 12/29/18 at 16:00 Sodium Hypochlorite (Dakins Diluted (40)) 1 applic BID TP Last administered on 01/03/19 12:10; Admin Dose 1 APPLIC; Start 12/31/18 at 21:00 Lidocaine (Lidoderm) 3 patch DAILY TD Last administered on 01/03/19 09:06; Admin Dose 3 PATCH; Start 01/03/19 at 09:00 TERESA COSBY Jan 03, 2019 15:54
[2019-01-03 19:15] VITALS: BP 97/54; PULSE 87; RESP 20
[2019-01-04 02:00] VITALS: BP 113/57; PULSE 82; RESP 18
[2019-01-04] MEDS: LEVOTHYROXINE 100 MCG TAB PO SCH (07:07)
[2019-01-04] MEDS: PANTOPRAZOLE (EC) 40 MG TAB PO SCH (07:07)
[2019-01-04 07:23] VITALS: BP 130/61; PULSE 72; RESP 14
[2019-01-04] MEDS: SENNA TAB PO SCH ×2 (09:00→20:31)
[2019-01-04] MEDS: POLYETHYLENE GLYCOL 17 GM PACKET PO SCH (09:00)
[2019-01-04] MEDS: MEROPENEM 1 GM/50ML(PMX) 50 ML IVPB SCH ×2 (09:03→20:30)
[2019-01-04] MEDS: MULTIVITAMINS THERAPEUTIC TAB PO SCH (09:03)
[2019-01-04] MEDS: ASPIRIN (EC) 81 MG TAB PO SCH ×2 (09:04→20:30)
[2019-01-04] MEDS: ASCORBIC ACID 500 MG TAB PO SCH ×2 (09:04→20:30)
[2019-01-04] MEDS: GABAPENTIN 300 MG CAP PO SCH ×3 (09:04→20:30)
[2019-01-04] MEDS: BUPROPION (XL) 150 MG TAB PO SCH (09:04)
[2019-01-04] MEDS: ZYVOX 600 MG TAB PO SCH ×2 (09:04→20:40)
[2019-01-04] MEDS: FISH OIL 1,000 MG CAP PO SCH (09:04)
[2019-01-04] MEDS: LISINOPRIL 5 MG TAB PO SCH (09:04)
[2019-01-04] MEDS: VITAMIN B COMPLEX/VIT C CAP PO SCH (09:04)
[2019-01-04] MEDS: CHOLECALCIFEROL 1,000 UNIT TAB PO SCH (09:04)
[2019-01-04] MEDS: METHOCARBAMOL 750 MG TAB PO SCH ×3 (09:04→20:30)
[2019-01-04] MEDS: NYSTATIN 30 GM POWDER BTL TOP SCH ×2 (09:05→20:40)
[2019-01-04] MEDS: BALSAM PERU/CASTOR OIL 60 GM TUBE TOP SCH ×2 (09:05→20:40)
[2019-01-04] MEDS: DAKINS 0.0125%(1/40) 473 ML SOLUTION TP SCH ×2 (09:05→20:40)
[2019-01-04] MEDS: LIDOCAINE 5% PATCH TD SCH (09:09)
--- NOTE | 2019-01-04 10:43 | CONS ---
Assessment/Plan Assessment/Plan Hospital Course (Demo Recall) ID PROGRESS NOTE CURRENT ABX: DAY # => ZYVOX + Merrem s/p Ceftriaxone POD # -> S/P 12/05/18 Right knee infected arthroplasty, status post I&D with poly exchange 24H INTERVAL SUMMARY * No fevers, VSS, last labs 12/31/18, patient is resting NAD DIAGNOSTIC IMAGING * Diagnostics: CT of the brain revealed no intracranial hemorrhage or skull fracture. Right lower extremity CT revealed status post right knee arthroplasty with small to moderate joint effusion and synovitis. 2 cm heterogeneous fluid attenuating focus with whitney-dural enhancement in the region of distal vastus intermedius. Small abscess cannot be excluded. Additional rounded fluid focus laterally may be extension of the supra patellar bursa fluid. Please see full report in the chart. Bone scan was negative MICRO/OTHER * URINE CX (-) * 12/01/18 BCX (+) 2/2 BOTTLES BLOOD CULTURE Final Organism 1 STREP AGALACTIAE - (GROUP B) * 12/01/18 URINE CX: URINE CULTURE Final Organism 1 ESCHERICHIA COLI COLONY COUNT >100,000 CFU/ml Organism 2 LACTOBACILLUS SPECIES COLONY COUNT >100,000 CFU/ml * 12/03/18 SACRAL WOUND: WOUND CULTURE Organism 1 PROTEUS MIRABILIS QUANTITY SCANT GROWTH Organism 2 STREP AGALACTIAE - (GROUP B) QUANTITY SCANT GROWTH Organism 3 MRSA QUANTITY ISOLATED FROM BROTH ONLY P. MIRAB M.I.C. RX --------- --- AMIKACIN <=2 S AMPICILLIN >=32 R CEFEPIME <=1 S CEFOTAXIME I CIPROFLOXACIN >=4 R GENTAMICIN >=16 R LEVOFLOXACIN >=8 R TOBRAMYCIN 8 I TRIMETHOPRIM/SULFAMETHOXAZOLE >=320 R PIPERACILLIN/TAZOBACTAM <=4 S * 12/05/18 RIGHT KNEE CX: TISSUE (BIOPSY) CULTURE Preliminary Organism 1 STREP AGALACTIAE - (GROUP B) QUANTITY 2+ * PHYSICAL EXAMINATION: GENERAL: VSS, NAD HEENT: AT, NC, anicteric, NECK: Supple, CHEST: Equal chest rise bilaterally, without dyspnea on observation HEART: Pulse RRR ABDOMEN: Soft / NT : FC EXTREMITIES: Warm, dry SKIN: No rash, no diaphoresis ID ASSESSMENT 73 yo F admit with: 1. Status post sepsis, present on admission 2. Streptococcal bacteremia 2 to #3 * 2D echo revealed no vegetations 3. Right knee infected arthroplasty, status post I&D with poly exchange 4. Urinary tract infection 5. History of left total knee replacement 6. History of multilevel discectomy and posterior fusion from L1-L3, please see CT in the chart 7. 12/03/18 SACRAL WOUND: WOUND CULTURE Organism 1 PROTEUS MIRABILIS QUANTITY SCANT GROWTH Organism 2 STREP AGALACTIAE - (GROUP B) QUANTITY SCANT GROWTH Organism 3 MRSA QUANTITY ISOLATED FROM BROTH ONLY (-)MRSA Nares ABX ALLERGIES: None to ABX INVASIVES: PIV CURRENT ABX: DAY # ZYVOX + MERREM S/P Ceftriaxone ID RECOMMENDATIONS/PLAN: 1. Continue current ABX x 6 weeks for knee - = last day 01/14/19 * PER ID [employer] = continue current ABX for 6 MORE DAYS 2. Local wound care -- per notes future debridement planned . Consultation Date/Type/Reason Admit Date/Time Dec 01, 2018 at 19:24 Initial Consult Date 12/04/18 Requesting Provider: TERESA COSBY Date/Time of Note DATE: 01/04/19 TIME: 10:37 Exam/Review of Systems Exam Vitals Vital Signs Date Temp Pulse Resp B/P (MAP) Pulse Ox O2 O2 Flow FiO2 Time Delivery Rate 01/04/19 98.3 72 14 130/61 98 Room Air 07:23 (84) Intake and Output 01/03/19 01/03/19 01/04/19 1515:00 23:00 07:00 IntakeIntake Total 610 ml 270 ml OutputOutput Total 1 ml BalanceBalance 610 ml -1 ml 270 ml Results Result Diagram: 12/31/18 0438 12/31/18 0438 Medications Medication Current Medications Albuterol (Ventolin Hfa) 2 puff Q4H PRN INH WHEEZING AND SOB; Start 12/01/18 at 21:00; Status Hold Ascorbic Acid (Vitamin C) 500 mg BID PO Last administered on 01/04/19at 09:04; Admin Dose 500 MG; Start 12/01/18 at 21:00 Bupropion HCl (Wellbutrin Xl) 300 mg DAILY PO Last administered on 01/04/19at 09:04; Admin Dose 300 MG; Start 12/02/18 at 09:00 Cholecalciferol (Vitamin D) 1,000 unit DAILY PO Last administered on 01/04/19 09:04; Admin Dose 1,000 UNIT; Start 12/02/18 at 09:00 Diclofenac Sodium (Voltaren 1% Gel) 2 gm TID PRN TP PAIN; Start 12/01/18 at 21:00 Levothyroxine Sodium (Synthroid) 100 mcg BEFORE BREAKFAST PO Last administered on 01/04/19 07:07; Admin Dose 100 MCG; Start 12/02/18 at 07:00 Lisinopril (Zestril) 5 mg DAILY PO Last administered on 01/04/19 09:04; Admin Dose 5 MG; Start 12/02/18 at 09:00 Multivitamins Therapeutic (Theragran) 1 tab DAILY PO Last administered on 01/04/19 09:03; Admin Dose 1 TAB; Start 12/02/18 at 09:00 Polyethylene Glycol (Miralax) 17 gm DAILY PO Last administered on 12/29/18 08:33; Admin Dose 17 GM; Start 12/02/18 at 09:00 Senna (Senokot) 1 tab BID PO Last administered on 12/29/18 20:32; Admin Dose 1 TAB; Start 12/01/18 at 21:00 Vitamin B Complex/ Vitamin C (Berocca) 1 cap DAILY PO Last administered on 01/04/19 09:04; Admin Dose 1 CAP; Start 12/02/18 at 09:00 Fish Oil (Fish Oil) 1,000 mg DAILY PO Last administered on 01/04/19 09:04; Admin Dose 1,000 MG; Start 12/02/18 at 09:00 Docusate Sodium (Colace) 100 mg Q12H PRN PO .CONSTIPATION; Start 12/01/18 at 22:00 Bisacodyl (Dulcolax) 5 mg DAILY PRN PO .CONSTIPATION; Start 12/01/18 at 22:00 Lidocaine (Xylocaine 1% (Mpf)) 30 ml ONCE PRN INJ aspiration ; Start 12/04/18 at 17:30 IV Flush (NS 3 ml) 3 ml PER PROTOCOL IV ; Start 12/05/18 at 21:30 Oxycodone HCl (Roxicodone) 15 mg Q4H PRN PO .PAIN Last administered on 12/30/18 13:42; Admin Dose 5 MG; Start 12/05/18 at 21:30 Oxycodone HCl (Roxicodone) 10 mg Q4H PRN PO .PAIN Last administered on 12/18/18 03:37; Admin Dose 10 MG; Start 12/05/18 at 21:30 Oxycodone HCl (Roxicodone) 5 mg Q4H PRN PO .PAIN Last administered on 01/02/19 14:27; Admin Dose 5 MG; Start 12/05/18 at 21:30 Hydromorphone HCl (Dilaudid) 1 mg Q3H PRN IV .BREAKTHROUGH PAIN Last administered on 12/06/18 06:58; Admin Dose 1 MG; Start 12/05/18 at 21:30 Ondansetron HCl (Zofran Inj) 4 mg Q4H PRN IV NAUSEA/VOMITING; Start 12/06/18 at 21:30 Pantoprazole (Protonix Tab) 40 mg DAILY@06 PO Last administered on 01/04/19 07:07; Admin Dose 40 MG; Start 12/07/18 at 06:00 Simethicone (Mylicon) 80 mg TID PRN PO .GAS; Start 12/05/18 at 21:30 Senna/Docusate Sodium (Senokot-S) 2 tab BID PRN PO .CONSTIPATION Last administered on 12/06/18at 08:54; Admin Dose 2 TAB; Start 12/05/18 at 21:30 Magnesium Hydroxide (Milk Of Mag) 30 ml HS PRN PO .CONSTIPATION; Start 12/05/18 at 21:30 Bisacodyl (Dulcolax Supp) 10 mg DAILY PRN [place] .CONSTIPATION; Start 12/05/18 at 21:30 Sodium Biphosphate/ Sodium Phosphate (Fleet Enema) 133 ml DAILY PRN [place] .CONSTIPATION; Start 12/05/18 at 21:30 Diphenhydramine HCl (Benadryl) 25 mg Q4H PRN IV .ITCHING; Start 12/05/18 at 21:30 Naloxone HCl (Narcan) 0.2 mg Q2M PRN IV .RESP RATE; Start 12/05/18 at 21:30 Bethanechol Chloride (Urecholine) 25 mg URINARY CATH D/C PRN PO UNABLE TO VOID; Start 12/05/18 at 21:30 Aspirin (Halfprin) 81 mg BID PO Last administered on 01/04/19 09:04; Admin Dose 81 MG; Start 12/06/18 at 09:00 Nystatin (Nystatin Powder) 1 applic BID TOP Last administered on 01/04/19 09:05; Admin Dose 1 APPLIC; Start 12/12/18 at 21:00 Albuterol (Proventil 0.083% (Neb)) 2.5 mg Q2H RESP THERAPY PRN HHN SHORTNESS OF BREATH; Start 12/15/18 at 12:00 Alteplase, Recombinant (Cathflo (Activase)) 2 mg MAY REPEAT X1 PRN CATHETER IF CATHETER REMAINS OCCULUDED Last administered on 12/17/18 13:20; Admin Dose 2 MG; Start 12/17/18 at 08:30 Gabapentin (Neurontin) 300 mg TID PO Last administered on 01/04/19 09:04; Admin Dose 300 MG; Start 12/22/18 at 13:00 Methocarbamol (Robaxin) 750 mg TID PO Last administered on 01/04/19 09:04; Admin Dose 750 MG; Start 12/28/18 at 13:00 Linezolid (Zyvox) 600 mg BID PO Last administered on 01/04/19 09:04; Admin Dose 600 MG; Start 12/28/18 at 15:00 Meropenem/Sodium Chloride 50 ml @ 100 mls/hr Q12 IVPB Last administered on 01/04/19 09:03; Admin Dose 100 MLS/HR; Start 12/28/18 at 21:00 Acetaminophen (Tylenol Tab) 1,000 mg Q6 PRN PO pain Last administered on 12/31/18 17:31; Admin Dose 1,000 MG; Start 12/28/18 at 21:30 Alteplase, Recombinant (Cathflo (Activase)) 2 mg MAY REPEAT X1 PRN CATHETER IF CATHETER REMAINS OCCULUDED Last administered on 12/29/18 16:53; Admin Dose 2 MG; Start 12/29/18 at 16:00 Sodium Hypochlorite (Dakins Diluted (40)) 1 applic BID TP Last administered on 01/04/19 09:05; Admin Dose 1 APPLIC; Start 12/31/18 at 21:00 Lidocaine (Lidoderm) 3 patch DAILY TD Last administered on 4/27/19at 09:09; Admin Dose 3 PATCH; Start 01/03/19 at 09:00 FAROOQ MATHUR NP Jan 04, 2019 10:43
--- NOTE | 2019-01-04 12:16 | PN ---
Date/Time of Note Date/Time of Note DATE: 01/04/19 TIME: 12:15 Assessment/Plan VTE Prophylaxis Risk score (from Ns)>0 risk: 2 SCD applied (from Ns): Yes Pharmacological prophylaxis: NA/contraindicated Pharm contraindication: low risk/ambulating Lines/Catheters Urinary Cath still in place: No Assessment/Plan Hospital Course 1. Sepsis secondary secondary to decubitus ulcers and/or PICC line infection - Repeat sacral wound cultures continue to show Proteus and VRE -Recent blood cultures are negative - ID on board and appreciate recommendations. Concerns for line infection and will check blood cultures from PICC line site. If continue to spike elevated fevers, will need replacement of PICC 2. Septic R knee joint s/p I&D on 12/05/18- resolved - remains stable and incision site clean and dry - Continues to work with PT. - Ortho on board and recommendations appreciated. Continue IV antibiotics until 01/18 then will need to continue PO antibiotics - pain control 3. Left leg muscle spasm - Robaxin TID - replacing K 4. Sacral wound - repeat cultures continue to show VRE and Proteus -Previous hospitalist discussed with patient and son importance of airloss bed to prevent further breakdown of wound, was refused, using waffle cushion when in bedside chair -Wound care had recommending surgical consultation for debridement, consultation with Dr. Nation appreciated and patient is status post debridement -Bone biopsy shows necrosis, negative for malignancy 5. Chronic spinal disease - h/o significant stenosis of her spine. Lumbar spine and thoracic spine CT show signs of stenosis though no acute fractures. - continue lidocaine patch which was increased to 3 patches due to significant back pain, back pain now improved 6. osteoarthritis - pain control 7. urinary tract infection- treated - Cultures grew Ecoli and lactobacillus - asymptomatic 8. Strep Bacteremia - continue current antibiotics - repeat cultures negative 9. Mechanical fall 10. Disposition - CM on board for SNF placement, ARU consult placed Result Diagram: 12/31/1843712/31/18437 Subjective 24 Hr Interval Summary Constitutional: no complaints Exam/Review of Systems Exam Vitals Vital Signs Date Temp Pulse Resp B/P (MAP) Pulse Ox O2 O2 Flow FiO2 Time Delivery Rate 01/04/19 98.3 72 14 130/61 98 Room Air 07:23 (84) Intake and Output 01/03/19 01/03/1919 1414:59 22:59 06:59 IntakeIntake Total 610 ml 270 ml OutputOutput Total 1 ml BalanceBalance 610 ml -1 ml 270 ml Constitutional: alert, oriented Respiratory: clear to auscultation Cardiovascular: regular rate and rhythm Gastrointestinal: soft; No distended Musculoskeletal: nl extremities to inspection Medications Medication Current Medications Albuterol (Ventolin Hfa) 2 puff Q4H PRN INH WHEEZING AND SOB; Start 12/01/18 at 21:00; Status Hold Ascorbic Acid (Vitamin C) 500 mg BID PO Last administered on 01/04/19 09:04; Admin Dose 500 MG; Start 12/01/18 at 21:00 Bupropion HCl (Wellbutrin Xl) 300 mg DAILY PO Last administered on 01/04/19 09:04; Admin Dose 300 MG; Start 12/02/18 at 09:00 Cholecalciferol (Vitamin D) 1,000 unit DAILY PO Last administered on 01/04/19 09:04; Admin Dose 1,000 UNIT; Start 12/02/18 at 09:00 Diclofenac Sodium (Voltaren 1% Gel) 2 gm TID PRN TP PAIN; Start 12/01/18 at 21:00 Levothyroxine Sodium (Synthroid) 100 mcg BEFORE BREAKFAST PO Last administered on 01/04/19 07:07; Admin Dose 100 MCG; Start 12/02/18 at 07:00 Lisinopril (Zestril) 5 mg DAILY PO Last administered on 01/04/19 09:04; Admin Dose 5 MG; Start 12/02/18 at 09:00 Multivitamins Therapeutic (Theragran) 1 tab DAILY PO Last administered on 01/04/19 09:03; Admin Dose 1 TAB; Start 12/02/18 at 09:00 Polyethylene Glycol (Miralax) 17 gm DAILY PO Last administered on 12/29/18 08:33; Admin Dose 17 GM; Start 12/02/18 at 09:00 Senna (Senokot) 1 tab BID PO Last administered on 12/29/18 20:32; Admin Dose 1 TAB; Start 12/01/18 at 21:00 Vitamin B Complex/ Vitamin C (Berocca) 1 cap DAILY PO Last administered on 01/04/19 09:04; Admin Dose 1 CAP; Start 12/02/18 at 09:00 Fish Oil (Fish Oil) 1,000 mg DAILY PO Last administered on 01/04/19 09:04; Admin Dose 1,000 MG; Start 12/02/18 at 09:00 Docusate Sodium (Colace) 100 mg Q12H PRN PO .CONSTIPATION; Start 12/01/18 at 22:00 Bisacodyl (Dulcolax) 5 mg DAILY PRN PO .CONSTIPATION; Start 12/01/18 at 22:00 Lidocaine (Xylocaine 1% (Mpf)) 30 ml ONCE PRN INJ aspiration ; Start 12/04/18 at 17:30 IV Flush (NS 3 ml) 3 ml PER PROTOCOL IV ; Start 12/05/18 at 21:30 Oxycodone HCl (Roxicodone) 15 mg Q4H PRN PO .PAIN Last administered on 12/30/18 t 13:42; Admin Dose 5 MG; Start 12/05/18 at 21:30 Oxycodone HCl (Roxicodone) 10 mg Q4H PRN PO .PAIN Last administered on 12/18/18 03:37; Admin Dose 10 MG; Start 12/05/18 at 21:30 Oxycodone HCl (Roxicodone) 5 mg Q4H PRN PO .PAIN Last administered on 01/02/19 14:27; Admin Dose 5 MG; Start 12/05/18 at 21:30 Hydromorphone HCl (Dilaudid) 1 mg Q3H PRN IV .BREAKTHROUGH PAIN Last administered on 12/06/18 06:58; Admin Dose 1 MG; Start 12/05/18 at 21:30 Ondansetron HCl (Zofran Inj) 4 mg Q4H PRN IV NAUSEA/VOMITING; Start 12/06/18 at 21:30 Pantoprazole (Protonix Tab) 40 mg DAILY@06 PO Last administered on 01/04/19 07:07; Admin Dose 40 MG; Start 12/07/18 at 06:00 Simethicone (Mylicon) 80 mg TID PRN PO .GAS; Start 12/05/18 at 21:30 Senna/Docusate Sodium (Senokot-S) 2 tab BID PRN PO .CONSTIPATION Last administered on 3/29/19at 08:54; Admin Dose 2 TAB; Start 12/05/18 at 21:30 Magnesium Hydroxide (Milk Of Mag) 30 ml HS PRN PO .CONSTIPATION; Start 12/05/18 at 21:30 Bisacodyl (Dulcolax Supp) 10 mg DAILY PRN [place] .CONSTIPATION; Start 12/05/18 at 21:30 Sodium Biphosphate/ Sodium Phosphate (Fleet Enema) 133 ml DAILY PRN [place] .CONSTIPATION; Start 12/05/18 at 21:30 Diphenhydramine HCl (Benadryl) 25 mg Q4H PRN IV .ITCHING; Start 12/05/18 at 21:30 Naloxone HCl (Narcan) 0.2 mg Q2M PRN IV .RESP RATE; Start 12/05/18 at 21:30 Bethanechol Chloride (Urecholine) 25 mg URINARY CATH D/C PRN PO UNABLE TO VOID; Start 12/05/18 at 21:30 Aspirin (Halfprin) 81 mg BID PO Last administered on 01/04/19at 09:04; Admin Dose 81 MG; Start 12/06/18 at 09:00 Nystatin (Nystatin Powder) 1 applic BID TOP Last administered on 01/04/19 09:05; Admin Dose 1 APPLIC; Start 12/12/18 at 21:00 Albuterol (Proventil 0.083% (Neb)) 2.5 mg Q2H RESP THERAPY PRN HHN SHORTNESS OF BREATH; Start 12/15/18 at 12:00 Alteplase, Recombinant (Cathflo (Activase)) 2 mg MAY REPEAT X1 PRN CATHETER IF CATHETER REMAINS OCCULUDED Last administered on 12/17/18at 13:20; Admin Dose 2 MG; Start 12/17/18 at 08:30 Gabapentin (Neurontin) 300 mg TID PO Last administered on 01/04/19 09:04; Admin Dose 300 MG; Start 12/22/18 at 13:00 Methocarbamol (Robaxin) 750 mg TID PO Last administered on 01/04/19 09:04; Admin Dose 750 MG; Start 12/28/18 at 13:00 Linezolid (Zyvox) 600 mg BID PO Last administered on 01/04/19 09:04; Admin Dose 600 MG; Start 12/28/18 at 15:00 Meropenem/Sodium Chloride 50 ml @ 100 mls/hr Q12 IVPB Last administered on 09:03; Admin Dose 100 MLS/HR; Start 12/28/18 at 21:00 Acetaminophen (Tylenol Tab) 1,000 mg Q6 PRN PO pain Last administered on 12/31/18 17:31; Admin Dose 1,000 MG; Start 12/28/18 at 21:30 Alteplase, Recombinant (Cathflo (Activase)) 2 mg MAY REPEAT X1 PRN CATHETER IF CATHETER REMAINS OCCULUDED Last administered on 12/29/18 16:53; Admin Dose 2 MG; Start 12/29/18 at 16:00 Sodium Hypochlorite (Dakins Diluted (40)) 1 applic BID TP Last administered on 01/04/19 09:05; Admin Dose 1 APPLIC; Start 12/31/18 at 21:00 Lidocaine (Lidoderm) 3 patch DAILY TD Last administered on 01/04/19 09:09; Admin Dose 3 PATCH; Start 01/03/19 at 09:00 TERESA COSBY Jan 04, 2019 12:16
[2019-01-04 15:36] VITALS: BP 120/81; PULSE 89; RESP 17
[2019-01-04 19:33] VITALS: BP 102/56; PULSE 82; RESP 17
[2019-01-04] MEDS: oxyCODONE 5 MG TAB PO PRN (22:32)
[2019-01-05] MEDS: ACETAMINOPHEN 500 MG TAB PO PRN (00:17)
--- NOTE | 2019-01-05 01:00 | PN ---
Date/Time of Note Date/Time of Note DATE: 01/04/19 TIME: 23:59 Assessment/Plan Lines/Catheters IV [facility] Type (from [facility] PICC Line Schaeffer in Place (from [facility]): No Assessment/Plan Chief Complaint/Hosp Course 1. Sacral wound: + Wound cultures; debridement 01/01/2019; pending bone pathology -Repeat debridement as needed > can follow with Dr. Mcmanus at wound care clinic -Continue local care -frequent turning and off-loading -low air loss mattress -vitamin c -short term zinc -optimize nutrition 2. Bacteremia: Repeat blood culture: NGTD -Antibiotics per sensitivities 3.Septic right knee joint status post I&D: -Per Ortho 4. Spine disease: Status post spinal surgeries -Supportive 5.UTI: -abx per sensitivity -frequent bladder emptying/cath care 6. Osteoarthritis: -Medical management Thank you Late entry 01/04 Subjective 24 Hr Interval Summary No acute issues. No fevers, chills, sob, congested cough, cp, palpitations, ruano, dizziness, nausea, vomiting, diarrhea, dysuria. Exam/Review of Systems Vital Signs Vitals Vital Signs Date Temp Pulse Resp B/P (MAP) Pulse Ox O2 O2 Flow FiO2 Time Delivery Rate 01/04/19 99.1 82 17 102/56 96 19:33 (71) 01/04/19 Room Air 15:36 Intake and Output 01/04/19 01/04/19 01/05/19 1515:00 23:00 07:00 IntakeIntake Total 50 ml 790 ml BalanceBalance 50 ml 790 ml Exam Free Text/Dictation Constitutional: alert, oriented Psych: nl mood/affect; No anxiety Head: normocephalic, atraumatic Eyes: nl conjunctiva, EOMI, nl lids, nl sclera ENMT: nl external ears & nose, nl lips & teeth, nl nasal mucosa & septum, mucosa pink and moist Neck: supple, non-tender; No jvd Respiratory: normal air movement; No congested cough Cardiovascular: regular rate and rhythm, nl pulses; No edema Gastrointestinal: soft, non-tender; No distended Genitourinary - Female: nl external genitalia Musculoskeletal: nl extremities to inspection; No nl gait and stance Extremities: normal pulses Neurological: nl mental status, nl speech, nl strength Skin: nl turgor, other (Sacrum: Slough, minimal drainage, improved odor, minimal periwound erythema) Lymph: nl lymph nodes GABRIELA MCMANUS MD Jan 05, 2019 01:00
[2019-01-05] MEDS: oxyCODONE 5 MG TAB PO PRN (02:27)
[2019-01-05 02:55] VITALS: BP 115/57; PULSE 74; RESP 17
[2019-01-05] MEDS: LEVOTHYROXINE 100 MCG TAB PO SCH (05:43)
[2019-01-05] MEDS: PANTOPRAZOLE (EC) 40 MG TAB PO SCH (05:43)
[2019-01-05 07:50] VITALS: BP 139/64; PULSE 67; RESP 16
[2019-01-05] MEDS: SENNA TAB PO SCH ×2 (09:00→21:00)
[2019-01-05] MEDS: POLYETHYLENE GLYCOL 17 GM PACKET PO SCH (09:00)
[2019-01-05] MEDS: MEROPENEM 1 GM/50ML(PMX) 50 ML IVPB SCH ×2 (09:47→22:15)
[2019-01-05] MEDS: LIDOCAINE 5% PATCH TD SCH (09:52)
[2019-01-05] MEDS: FISH OIL 1,000 MG CAP PO SCH (09:52)
[2019-01-05] MEDS: ZYVOX 600 MG TAB PO SCH ×2 (09:53→22:16)
[2019-01-05] MEDS: MULTIVITAMINS THERAPEUTIC TAB PO SCH (09:53)
[2019-01-05] MEDS: BUPROPION (XL) 150 MG TAB PO SCH (09:53)
[2019-01-05] MEDS: ASCORBIC ACID 500 MG TAB PO SCH ×2 (09:54→22:16)
[2019-01-05] MEDS: GABAPENTIN 300 MG CAP PO SCH ×3 (09:54→22:16)
[2019-01-05] MEDS: ASPIRIN (EC) 81 MG TAB PO SCH ×2 (09:54→22:16)
[2019-01-05] MEDS: CHOLECALCIFEROL 1,000 UNIT TAB PO SCH (09:54)
[2019-01-05] MEDS: VITAMIN B COMPLEX/VIT C CAP PO SCH (09:54)
[2019-01-05] MEDS: METHOCARBAMOL 750 MG TAB PO SCH ×3 (09:55→22:16)
[2019-01-05] MEDS: LISINOPRIL 5 MG TAB PO SCH (09:57)
[2019-01-05] MEDS: BALSAM PERU/CASTOR OIL 60 GM TUBE TOP SCH ×2 (10:02→21:00)
[2019-01-05] MEDS: DAKINS 0.0125%(1/40) 473 ML SOLUTION TP SCH ×2 (10:02→22:28)
[2019-01-05] MEDS: NYSTATIN 30 GM POWDER BTL TOP SCH ×2 (10:02→21:00)
--- NOTE | 2019-01-05 10:50 | CONS ---
Assessment/Plan Assessment/Plan Hospital Course (Demo Recall) ID PROGRESS NOTE CURRENT ABX: DAY # => ZYVOX + Merrem s/p Ceftriaxone POD # -> S/P 12/05/18 Right knee infected arthroplasty, status post I&D with poly exchange 24H INTERVAL SUMMARY * Resting in bed with eyes closed -- pain issues ongoing w/pain meds onboard -- DC planning pending placement * No changes from yesterday -- No fevers, VSS, last labs 12/31/18 DIAGNOSTIC IMAGING * Diagnostics: CT of the brain revealed no intracranial hemorrhage or skull fracture. Right lower extremity CT revealed status post right knee arthropla sty with small to moderate joint effusion and synovitis. 2 cm heterogeneous fluid attenuating focus with whitney-dural enhancement in the region of distal vastus intermedius. Small abscess cannot be excluded. Additional rounded fluid focus laterally may be extension of the supra patellar bursa fluid. Please see full report in the chart. Bone scan was negative MICRO/OTHER * URINE CX (-) * 12/01/18 BCX (+) 2/2 BOTTLES BLOOD CULTURE Final Organism 1 STREP AGALACTIAE - (GROUP B) * 12/01/18 URINE CX: URINE CULTURE Final Organism 1 ESCHERICHIA COLI COLONY COUNT >100,000 CFU/ml Organism 2 LACTOBACILLUS SPECIES COLONY COUNT >100,000 CFU/ml * 12/03/18 SACRAL WOUND: WOUND CULTURE Organism 1 PROTEUS MIRABILIS QUANTITY SCANT GROWTH Organism 2 STREP AGALACTIAE - (GROUP B) QUANTITY SCANT GROWTH Organism 3 MRSA QUANTITY ISOLATED FROM BROTH ONLY P. MIRAB M.I.C. RX --------- --- AMIKACIN <=2 S AMPICILLIN >=32 R CEFEPIME <=1 S CEFOTAXIME I CIPROFLOXACIN >=4 R GENTAMICIN >=16 R LEVOFLOXACIN >=8 R TOBRAMYCIN 8 I TRIMETHOPRIM/SULFAMETHOXAZOLE >=320 R PIPERACILLIN/TAZOBACTAM <=4 S * 12/05/18 RIGHT KNEE CX: TISSUE (BIOPSY) CULTURE Preliminary Organism 1 STREP AGALACTIAE - (GROUP B) QUANTITY 2+ * PHYSICAL EXAMINATION: GENERAL: VSS, NAD HEENT: AT, NC, anicteric, NECK: Supple, CHEST: Equal chest rise bilaterally, without dyspnea on observation HEART: Pulse RRR ABDOMEN: Soft / NT : FC EXTREMITIES: Warm, dry SKIN: No rash, no diaphoresis ID ASSESSMENT 73 yo F admit with: 1. Status post sepsis, present on admission 2. Streptococcal bacteremia 2 to #3 * 2D echo revealed no vegetations 3. Right knee infected arthroplasty, status post I&D with poly exchange 4. Urinary tract infection 5. History of left total knee replacement 6. History of multilevel discectomy and posterior fusion from L1-L3, please see CT in the chart 7. 12/03/18 SACRAL WOUND: WOUND CULTURE Organism 1 PROTEUS MIRABILIS QUANTITY SCANT GROWTH Organism 2 STREP AGALACTIAE - (GROUP B) QUANTITY SCANT GROWTH Organism 3 MRSA QUANTITY ISOLATED FROM BROTH ONLY (-)MRSA Nares ABX ALLERGIES: None to ABX INVASIVES: PIV CURRENT ABX: DAY # ZYVOX + MERREM S/P Ceftriaxone ID RECOMMENDATIONS/PLAN: 1. Continue current ABX x 6 weeks for knee - = last day 01/14/19 * PER ID DIRECTOR [employer] = continue current ABX for 6 MORE DAYS 2. Local wound care -- per notes future debridement planned . Consultation Date/Type/Reason Admit Date/Time Dec 01, 2018 at 19:24 Initial Consult Date 12/04/18 Requesting Provider: TERESA COSBY Date/Time of Note DATE: 01/05/19 TIME: 10:49 Exam/Review of Systems Exam Vitals Vital Signs Date Temp Pulse Resp B/P (MAP) Pulse Ox O2 O2 Flow FiO2 Time Delivery Rate 01/05/19 97.8 67 16 139/64 100 Room Air 07:50 (89) Intake and Output 01/04/19 01/04/19 01/05/19 1515:00 23:00 07:00 IntakeIntake Total 50 ml 1030 ml 240 ml BalanceBalance 50 ml 1030 ml 240 ml Medications Medication Current Medications Albuterol (Ventolin Hfa) 2 puff Q4H PRN INH WHEEZING AND SOB; Start 12/01/18 at 21:00; Status Hold Ascorbic Acid (Vitamin C) 500 mg BID PO Last administered on 01/05/19at 09:54; Admin Dose 500 MG; Start 12/01/18 at 21:00 Bupropion HCl (Wellbutrin Xl) 300 mg DAILY PO Last administered on 01/05/19at 09:53; Admin Dose 300 MG; Start 12/02/18 at 09:00 Cholecalciferol (Vitamin D) 1,000 unit DAILY PO Last administered on 01/05/19 09:54; Admin Dose 1,000 UNIT; Start 12/02/18 at 09:00 Diclofenac Sodium (Voltaren 1% Gel) 2 gm TID PRN TP PAIN; Start 12/01/18 at 21:00 Levothyroxine Sodium (Synthroid) 100 mcg BEFORE BREAKFAST PO Last administered on 01/05/19 05:43; Admin Dose 100 MCG; Start 12/02/18 at 07:00 Lisinopril (Zestril) 5 mg DAILY PO Last administered on 01/05/19 09:57; Admin Dose 5 MG; Start 12/02/18 at 09:00 Multivitamins Therapeutic (Theragran) 1 tab DAILY PO Last administered on 01/05/19 09:53; Admin Dose 1 TAB; Start 12/02/18 at 09:00 Polyethylene Glycol (Miralax) 17 gm DAILY PO Last administered on 12/29/18 08:33; Admin Dose 17 GM; Start 12/02/18 at 09:00 Senna (Senokot) 1 tab BID PO Last administered on 12/29/18 20:32; Admin Dose 1 TAB; Start 12/01/18 at 21:00 Vitamin B Complex/ Vitamin C (Berocca) 1 cap DAILY PO Last administered on 01/05/19 09:54; Admin Dose 1 CAP; Start 12/02/18 at 09:00 Fish Oil (Fish Oil) 1,000 mg DAILY PO Last administered on 01/05/19 09:52; Admin Dose 1,000 MG; Start 12/02/18 at 09:00 Docusate Sodium (Colace) 100 mg Q12H PRN PO .CONSTIPATION; Start 12/01/18 at 22:00 Bisacodyl (Dulcolax) 5 mg DAILY PRN PO .CONSTIPATION; Start 12/01/18 at 22:00 Lidocaine (Xylocaine 1% (Mpf)) 30 ml ONCE PRN INJ aspiration ; Start 12/04/18 at 17:30 IV Flush (NS 3 ml) 3 ml PER PROTOCOL IV ; Start 12/05/18 at 21:30 Oxycodone HCl (Roxicodone) 15 mg Q4H PRN PO .PAIN Last administered on 12/30/18 13:42; Admin Dose 5 MG; Start 12/05/18 at 21:30 Oxycodone HCl (Roxicodone) 10 mg Q4H PRN PO .PAIN Last administered on 01/05/19 02:27; Admin Dose 10 MG; Start 12/05/18 at 21:30 Oxycodone HCl (Roxicodone) 5 mg Q4H PRN PO .PAIN Last administered on 01/04/19 22:32; Admin Dose 5 MG; Start 12/05/18 at 21:30 Hydromorphone HCl (Dilaudid) 1 mg Q3H PRN IV .BREAKTHROUGH PAIN Last administered on 12/06/18 06:58; Admin Dose 1 MG; Start 12/05/18 at 21:30 Ondansetron HCl (Zofran Inj) 4 mg Q4H PRN IV NAUSEA/VOMITING; Start 12/06/18 at 21:30 Pantoprazole (Protonix Tab) 40 mg DAILY@06 PO Last administered on 01/05/19 05:43; Admin Dose 40 MG; Start 12/07/18 at 06:00 Simethicone (Mylicon) 80 mg TID PRN PO .GAS; Start 12/05/18 at 21:30 Senna/Docusate Sodium (Senokot-S) 2 tab BID PRN PO .CONSTIPATION Last administered on 12/06/18 08:54; Admin Dose 2 TAB; Start 12/05/18 at 21:30 Magnesium Hydroxide (Milk Of Mag) 30 ml HS PRN PO .CONSTIPATION; Start 12/05/18 at 21:30 Bisacodyl (Dulcolax Supp) 10 mg DAILY PRN NV .CONSTIPATION; Start 12/05/18 at 21:30 Sodium Biphosphate/ Sodium Phosphate (Fleet Enema) 133 ml DAILY PRN NV .CONSTIPATION; Start 12/05/18 at 21:30 Diphenhydramine HCl (Benadryl) 25 mg Q4H PRN IV .ITCHING; Start 12/05/18 at 21:30 Naloxone HCl (Narcan) 0.2 mg Q2M PRN IV .RESP RATE; Start 12/05/18 at 21:30 Bethanechol Chloride (Urecholine) 25 mg URINARY CATH D/C PRN PO UNABLE TO VOID; Start 12/05/18 at 21:30 Aspirin (Halfprin) 81 mg BID PO Last administered on 01/05/19 09:54; Admin Dose 81 MG; Start 12/06/18 at 09:00 Nystatin (Nystatin Powder) 1 applic BID TOP Last administered on 01/05/19 10:02; Admin Dose 1 APPLIC; Start 12/12/18 at 21:00 Albuterol (Proventil 0.083% (Neb)) 2.5 mg Q2H RESP THERAPY PRN HHN SHORTNESS OF BREATH; Start 12/15/18 at 12:00 Gabapentin (Neurontin) 300 mg TID PO Last administered on 01/05/19 09:54; Admin Dose 300 MG; Start 12/22/18 at 13:00 Methocarbamol (Robaxin) 750 mg TID PO Last administered on 01/05/19 09:55; Admin Dose 750 MG; Start 12/28/18 at 13:00 Linezolid (Zyvox) 600 mg BID PO Last administered on 01/05/19 09:53; Admin Dose 600 MG; Start 12/28/18 at 15:00 Meropenem/Sodium Chloride 50 ml @ 100 mls/hr Q12 IVPB Last administered on 01/05/19 09:47; Admin Dose 100 MLS/HR; Start 12/28/18 at 21:00 Acetaminophen (Tylenol Tab) 1,000 mg Q6 PRN PO pain Last administered on 01/05/19 00:17; Admin Dose 1,000 MG; Start 12/28/18 at 21:30 Alteplase, Recombinant (Cathflo (Activase)) 2 mg MAY REPEAT X1 PRN CATHETER IF CATHETER REMAINS OCCULUDED Last administered on 12/29/18 16:53; Admin Dose 2 MG; Start 12/29/18 at 16:00 Sodium Hypochlorite (Dakins Diluted (40)) 1 applic BID TP Last administered on 01/05/19 10:02; Admin Dose 1 APPLIC; Start 12/31/18 at 21:00 Miscellaneous Information (*Order Clarification Bulletin) MEDICATION REQUIRES CLARIFICATION:PLE... Q8H XX ; Start 01/05/19 at 09:30 Lidocaine (Lidoderm) 1 patch DAILY TD ; Start 01/06/19 at 09:00 FAROOQ MATHUR NP Jan 05, 2019 10:50
--- NOTE | 2019-01-05 12:46 | PN ---
Date/Time of Note Date/Time of Note DATE: 01/05/19 TIME: 12:42 Assessment/Plan VTE Prophylaxis Risk score (from Nsg)>0 risk: 2 Pharmacological prophylaxis: NA/contraindicated Pharm contraindication: low risk/ambulating Lines/Catheters Urinary Cath still in place: No Assessment/Plan Hospital Course 1. Sepsis secondary secondary to decubitus ulcers and/or PICC line infection - Repeat sacral wound cultures continue to show Proteus and VRE -Recent blood cultures are negative - ID on board and appreciate recommendations. There were concerns for line infection but blood cultures are currently negative -Continue antibiotics 2. Septic R knee joint s/p I&D on 12/05/18- resolved - remains stable and incision site clean and dry - Continues to work with PT. - Ortho on board and recommendations appreciated. Continue IV antibiotics until 01/14 - pain control 3. Left leg muscle spasm - Robaxin TID - replacing K 4. Sacral wound - repeat cultures continue to show VRE and Proteus -Previous hospitalist discussed with patient and son importance of airloss bed to prevent further breakdown of wound, was refused, using waffle cushion when in bedside chair -Wound care had recommending surgical consultation for debridement, consultation with Dr. Nation appreciated and patient is status post debridement -Bone biopsy shows necrosis, negative for malignancy 5. Chronic spinal disease - h/o significant stenosis of her spine. Lumbar spine and thoracic spine CT show signs of stenosis though no acute fractures. - continue lidocaine patch which was increased to 3 patches due to significant back pain, patient now stating that she would like to go back to only 1 patch -Patient is not interested in oral or IV narcotics 6. osteoarthritis - pain control 7. urinary tract infection- treated - Cultures grew Ecoli and lactobacillus - asymptomatic 8. Strep Bacteremia - continue current antibiotics - repeat cultures negative 9. Mechanical fall 10. Disposition - CM on board for SNF placement, ARU consult placed, patient is now ambulating more and may be appropriate for ARU, patient would like to ultimately return to home but only if she is able to ambulate safely Subjective 24 Hr Interval Summary Constitutional: no complaints Exam/Review of Systems Exam Vitals Vital Signs Date Temp Pulse Resp B/P (MAP) Pulse Ox O2 O2 Flow FiO2 Time Delivery Rate 01/05/19 97.8 67 16 139/64 100 Room Air 07:50 (89) Intake and Output 01/04/19 01/04/19 01/05/19 1515:00 23:00 07:00 IntakeIntake Total 50 ml 1030 ml 240 ml BalanceBalance 50 ml 1030 ml 240 ml Constitutional: alert, oriented Respiratory: clear to auscultation Cardiovascular: regular rate and rhythm Gastrointestinal: soft; No distended Musculoskeletal: nl extremities to inspection Medications Medication Current Medications Albuterol (Ventolin Hfa) 2 puff Q4H PRN INH WHEEZING AND SOB; Start 12/01/18 at 21:00; Status Hold Ascorbic Acid (Vitamin C) 500 mg BID PO Last administered on 01/05/19 09:54; Admin Dose 500 MG; Start 12/01/18 at 21:00 Bupropion HCl (Wellbutrin Xl) 300 mg DAILY PO Last administered on 01/05/19 09:53; Admin Dose 300 MG; Start 12/02/18 at 09:00 Cholecalciferol (Vitamin D) 1,000 unit DAILY PO Last administered on 01/05/19 09:54; Admin Dose 1,000 UNIT; Start 12/02/18 at 09:00 Diclofenac Sodium (Voltaren 1% Gel) 2 gm TID PRN TP PAIN; Start 12/01/18 at 21:00 Levothyroxine Sodium (Synthroid) 100 mcg BEFORE BREAKFAST PO Last administered on 01/05/19 05:43; Admin Dose 100 MCG; Start 12/02/18 at 07:00 Lisinopril (Zestril) 5 mg DAILY PO Last administered on 01/05/19 09:57; Admin Dose 5 MG; Start 12/02/18 at 09:00 Multivitamins Therapeutic (Theragran) 1 tab DAILY PO Last administered on 01/05/19 09:53; Admin Dose 1 TAB; Start 12/02/18 at 09:00 Polyethylene Glycol (Miralax) 17 gm DAILY PO Last administered on 12/29/18 08:33; Admin Dose 17 GM; Start 12/02/18 at 09:00 Senna (Senokot) 1 tab BID PO Last administered on 12/29/18 20:32; Admin Dose 1 TAB; Start 12/01/18 at 21:00 Vitamin B Complex/ Vitamin C (Berocca) 1 cap DAILY PO Last administered on 01/05/19 09:54; Admin Dose 1 CAP; Start 12/02/18 at 09:00 Fish Oil (Fish Oil) 1,000 mg DAILY PO Last administered on 01/05/19 09:52; Admin Dose 1,000 MG; Start 12/02/18 at 09:00 Docusate Sodium (Colace) 100 mg Q12H PRN PO .CONSTIPATION; Start 12/01/18 at 22:00 Bisacodyl (Dulcolax) 5 mg DAILY PRN PO .CONSTIPATION; Start 12/01/18 at 22:00 Lidocaine (Xylocaine 1% (Mpf)) 30 ml ONCE PRN INJ aspiration ; Start 12/04/18 at 17:30 IV Flush (NS 3 ml) 3 ml PER PROTOCOL IV ; Start 12/05/18 at 21:30 Oxycodone HCl (Roxicodone) 15 mg Q4H PRN PO .PAIN Last administered on 12/30/18 13:42; Admin Dose 5 MG; Start 12/05/18 at 21:30 Oxycodone HCl (Roxicodone) 10 mg Q4H PRN PO .PAIN Last administered on 01/05/19 02:27; Admin Dose 10 MG; Start 12/05/18 at 21:30 Oxycodone HCl (Roxicodone) 5 mg Q4H PRN PO .PAIN Last administered on 01/04/19 22:32; Admin Dose 5 MG; Start 12/05/18 at 21:30 Hydromorphone HCl (Dilaudid) 1 mg Q3H PRN IV .BREAKTHROUGH PAIN Last administered on 12/06/18 06:58; Admin Dose 1 MG; Start 12/05/18 at 21:30 Ondansetron HCl (Zofran Inj) 4 mg Q4H PRN IV NAUSEA/VOMITING; Start 12/06/18 at 21:30 Pantoprazole (Protonix Tab) 40 mg DAILY@06 PO Last administered on 01/05/19 05:43; Admin Dose 40 MG; Start 12/07/18 at 06:00 Simethicone (Mylicon) 80 mg TID PRN PO .GAS; Start 12/05/18 at 21:30 Senna/Docusate Sodium (Senokot-S) 2 tab BID PRN PO .CONSTIPATION Last administered on 3/29/19at 08:54; Admin Dose 2 TAB; Start 12/05/18 at 21:30 Magnesium Hydroxide (Milk Of Mag) 30 ml HS PRN PO .CONSTIPATION; Start 12/05/18 at 21:30 Bisacodyl (Dulcolax Supp) 10 mg DAILY PRN ID .CONSTIPATION; Start 12/05/18 at 21:30 Sodium Biphosphate/ Sodium Phosphate (Fleet Enema) 133 ml DAILY PRN ID .CONSTIPATION; Start 12/05/18 at 21:30 Diphenhydramine HCl (Benadryl) 25 mg Q4H PRN IV .ITCHING; Start 12/05/18 at 21:30 Naloxone HCl (Narcan) 0.2 mg Q2M PRN IV .RESP RATE; Start 12/05/18 at 21:30 Bethanechol Chloride (Urecholine) 25 mg URINARY CATH D/C PRN PO UNABLE TO VOID; Start 12/05/18 at 21:30 Aspirin (Halfprin) 81 mg BID PO Last administered on 01/05/19 09:54; Admin Dose 81 MG; Start 12/06/18 at 09:00 Nystatin (Nystatin Powder) 1 applic BID TOP Last administered on 01/05/19 10:02; Admin Dose 1 APPLIC; Start 12/12/18 at 21:00 Albuterol (Proventil 0.083% (Neb)) 2.5 mg Q2H RESP THERAPY PRN HHN SHORTNESS OF BREATH; Start 12/15/18 at 12:00 Gabapentin (Neurontin) 300 mg TID PO Last administered on 01/05/19 09:54; Admin Dose 300 MG; Start 12/22/18 at 13:00 Methocarbamol (Robaxin) 750 mg TID PO Last administered on 01/05/19 09:55; Admin Dose 750 MG; Start 12/28/18 at 13:00 Linezolid (Zyvox) 600 mg BID PO Last administered on 01/05/19 09:53; Admin Dose 600 MG; Start 12/28/18 at 15:00 Meropenem/Sodium Chloride 50 ml @ 100 mls/hr Q12 IVPB Last administered on 01/05/19 09:47; Admin Dose 100 MLS/HR; Start 12/28/18 at 21:00 Acetaminophen (Tylenol Tab) 1,000 mg Q6 PRN PO pain Last administered on 01/05/19at 00:17; Admin Dose 1,000 MG; Start 12/28/18 at 21:30 Alteplase, Recombinant (Cathflo (Activase)) 2 mg MAY REPEAT X1 PRN CATHETER IF CATHETER REMAINS OCCULUDED Last administered on 12/29/18at 16:53; Admin Dose 2 MG; Start 12/29/18 at 16:00 Sodium Hypochlorite (Dakins Diluted ()) 1 applic BID TP Last administered on 01/05/19at 10:02; Admin Dose 1 APPLIC; Start 12/31/18 at 21:00 Miscellaneous Information (*Order Clarification Bulletin) MEDICATION REQUIRES CLARIFICATION:PLE... Q8H XX ; Start 01/05/19 at 09:30 Lidocaine (Lidoderm) 1 patch DAILY TD ; Start 01/06/19 at 09:00 TERESA COSBY Jan 05, 2019 12:46
[2019-01-05 15:56] VITALS: BP 103/60; PULSE 85; RESP 16
[2019-01-05 19:28] VITALS: BP 89/55; PULSE 84; RESP 16
[2019-01-05 20:30] VITALS: BP 109/60
--- NOTE | 2019-01-06 01:09 | PN ---
Date/Time of Note Date/Time of Note DATE: 01/05/19 TIME: 23:08 Assessment/Plan Lines/Catheters Schaeffer in Place (from [facility]): No Assessment/Plan Chief Complaint/Hosp Course 1. Sacral wound: + Wound cultures; debridement 01/01/2019; pending bone pathology -Repeat debridement as needed > can follow with Dr. Mcmanus at wound care clinic -Continue local care -frequent turning and off-loading -low air loss mattress -vitamin c -short term zinc -optimize nutrition 2. Bacteremia: Repeat blood culture: NGTD -Antibiotics per sensitivities 3.Septic right knee joint status post I&D: -Per Ortho 4. Spine disease: Status post spinal surgeries -Supportive 5.UTI: -abx per sensitivity -frequent bladder emptying/cath care 6. Osteoarthritis: -Medical management Thank you Late entry 01/05 Subjective 24 Hr Interval Summary No acute issues. No fevers, chills, sob, congested cough, cp, palpitations, ruano, dizziness, nausea, vomiting, diarrhea, dysuria. Exam/Review of Systems Vital Signs Vitals Vital Signs Date Temp Pulse Resp B/P (MAP) Pulse Ox O2 O2 Flow FiO2 Time Delivery Rate 01/05/19 109/60 20:30 (76) 01/05/19 98.9 84 16 98 Room Air 19:28 Intake and Output 01/05/19 01/05/19 01/06/19 1515:00 23:00 07:00 IntakeIntake Total 260 ml 700 ml BalanceBalance 260 ml 700 ml Exam Free Text/Dictation Constitutional: alert, oriented Psych: nl mood/affect; No anxiety Head: normocephalic, atraumatic Eyes: nl conjunctiva, EOMI, nl lids, nl sclera ENMT: nl external ears & nose, nl lips & teeth, nl nasal mucosa & septum, mucosa pink and moist Neck: supple, non-tender; No jvd Respiratory: normal air movement; No congested cough Cardiovascular: regular rate and rhythm, nl pulses; No edema Gastrointestinal: soft, non-tender; No distended Genitourinary - Female: nl external genitalia Musculoskeletal: nl extremities to inspection; No nl gait and stance Extremities: normal pulses Neurological: nl mental status, nl speech, nl strength Skin: nl turgor, other (Sacrum: Slough, minimal drainage, improved odor, minimal periwound erythema) Lymph: nl lymph nodes GABRIELA MCMANUS MD Jan 06, 2019 01:09
[2019-01-06 01:34] VITALS: BP 126/56; PULSE 80; RESP 18
[2019-01-06] MEDS: oxyCODONE 5 MG TAB PO PRN ×3 (02:08→12:43)
[2019-01-06] MEDS: PANTOPRAZOLE (EC) 40 MG TAB PO SCH (06:23)
[2019-01-06] MEDS: LEVOTHYROXINE 100 MCG TAB PO SCH (06:23)
[2019-01-06 07:35] VITALS: BP 128/58; PULSE 72; RESP 18
[2019-01-06] MEDS: NYSTATIN 30 GM POWDER BTL TOP SCH ×2 (09:00→20:40)
[2019-01-06] MEDS: POLYETHYLENE GLYCOL 17 GM PACKET PO SCH (09:00)
[2019-01-06] MEDS: SENNA TAB PO SCH ×2 (09:00→20:40)
[2019-01-06] MEDS: ZYVOX 600 MG TAB PO SCH ×2 (09:01→20:39)
[2019-01-06] MEDS: LIDOCAINE 5% PATCH TD SCH (09:01)
[2019-01-06] MEDS: FISH OIL 1,000 MG CAP PO SCH (09:01)
[2019-01-06] MEDS: ASCORBIC ACID 500 MG TAB PO SCH ×2 (09:01→20:39)
[2019-01-06] MEDS: CHOLECALCIFEROL 1,000 UNIT TAB PO SCH (09:01)
[2019-01-06] MEDS: BUPROPION (XL) 150 MG TAB PO SCH (09:01)
[2019-01-06] MEDS: GABAPENTIN 300 MG CAP PO SCH ×3 (09:01→20:39)
[2019-01-06] MEDS: ASPIRIN (EC) 81 MG TAB PO SCH ×2 (09:01→20:39)
[2019-01-06] MEDS: MEROPENEM 1 GM/50ML(PMX) 50 ML IVPB SCH ×2 (09:02→20:39)
[2019-01-06] MEDS: DAKINS 0.0125%(1/40) 473 ML SOLUTION TP SCH ×2 (09:03→20:40)
[2019-01-06] MEDS: BALSAM PERU/CASTOR OIL 60 GM TUBE TOP SCH ×2 (09:03→20:40)
[2019-01-06] MEDS: VITAMIN B COMPLEX/VIT C CAP PO SCH (09:10)
[2019-01-06] MEDS: LISINOPRIL 5 MG TAB PO SCH (09:11)
[2019-01-06] MEDS: METHOCARBAMOL 750 MG TAB PO SCH ×3 (09:11→20:39)
[2019-01-06] MEDS: MULTIVITAMINS THERAPEUTIC TAB PO SCH (09:11)
--- NOTE | 2019-01-06 11:00 | PN ---
Date/Time of Note Date/Time of Note DATE: 01/06/19 TIME: 11:00 Assessment/Plan Lines/Catheters IV C[facility] Type ([facility] PICC Line Schaeffer in Place (from [facility]): No Assessment/Plan Chief Complaint/Hosp Course 1. Sacral wound: + Wound cultures; debridement 01/01/2019; pending bone pathology -Repeat debridement as needed > can follow with Dr. Mcmanus at wound care clinic -Continue local care -frequent turning and off-loading -low air loss mattress -vitamin c -short term zinc -optimize nutrition 2. Bacteremia: Repeat blood culture: NGTD -Antibiotics per sensitivities 3.Septic right knee joint status post I&D: -Per Ortho 4. Spine disease: Status post spinal surgeries -Supportive 5.UTI: -abx per sensitivity -frequent bladder emptying/cath care 6. Osteoarthritis: -Medical management Thank you Subjective 24 Hr Interval Summary No acute issues. No fevers, chills, sob, congested cough, cp, palpitations, ruano, dizziness, nausea, vomiting, diarrhea, dysuria. Exam/Review of Systems Vital Signs Vitals Vital Signs Date Temp Pulse Resp B/P (MAP) Pulse Ox O2 O2 Flow FiO2 Time Delivery Rate 01/06/19 98.0 72 18 128/58 99 07:35 (81) 01/06/19 Room Air 01:34 Intake and Output 01/05/19 01/05/19 01/06/19 1515:00 23:00 07:00 IntakeIntake Total 260 ml 750 ml 400 ml BalanceBalance 260 ml 750 ml 400 ml Exam Free Text/Dictation Constitutional: alert, oriented Psych: nl mood/affect; No anxiety Head: normocephalic, atraumatic Eyes: nl conjunctiva, EOMI, nl lids, nl sclera ENMT: nl external ears & nose, nl lips & teeth, nl nasal mucosa & septum, mucosa pink and moist Neck: supple, non-tender; No jvd Respiratory: normal air movement; No congested cough Cardiovascular: regular rate and rhythm, nl pulses; No edema Gastrointestinal: soft, non-tender; No distended Genitourinary - Female: nl external genitalia Musculoskeletal: nl extremities to inspection; No nl gait and stance Extremities: normal pulses Neurological: nl mental status, nl speech, nl strength Skin: nl turgor, other (Sacrum: Slough, minimal drainage, improved odor, minimal periwound erythema) Lymph: nl lymph nodes GABRIELA MCMANUS MD Jan 06, 2019 11:00
[2019-01-06 13:36] VITALS: BP 121/57; PULSE 86; RESP 18
--- NOTE | 2019-01-06 14:20 | CONS ---
Assessment/Plan Assessment/Plan Hospital Course (Demo Recall) No acute events, alert, feels good Antimicrobials: Merrem, Zyvox Microbiology: Blood culture on admission grew strep, urine culture grew E. coli, MRSA swab negative, repeat blood cultures negative. Sacral wound cx + VRE/Proteus/Strep 2D echo revealed no vegetations Physical examination: This is well-developed well-nourished elderly woman who is alert in no distress. Head atraumatic normocephalic neck is supple. Chest rise symmetrical breath sounds clear. Heart: S1-S2. Abdomen soft, bowel tones present. Extremities wnl Assessment: 1. S/p fevers 2 to infected sacral wound==> s/p debridement==> bone patho + necrosis 2. Status post sepsis, present on admission 3. S/p streptococcal bacteremia 2 to #4 4. 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 S/p urinary tract infection 6. History of left total knee replacement 7. History of multilevel discectomy and posterior fusion from L1-L3, please see CT in the chart Plan: Remains stable, possible repeat debridement this week, continue current antibiotics for treatment of her wound for at least 7 more days, then complete treatment with Rocephin till January 09. Pt to f/u with ortho Consultation Date/Type/Reason Admit Date/Time Dec 01, 2018 at 19:24 Initial Consult Date Type of Consult id Requesting Provider: TERESA COSBY Date/Time of Note DATE: 01/06/19 TIME: 14:19 Exam/Review of Systems Exam Vitals Vital Signs Date Temp Pulse Resp B/P (MAP) Pulse Ox O2 O2 Flow FiO2 Time Delivery Rate 01/06/19 98.0 86 18 121/57 98 13:36 (78) 01/06/19 Room Air 01:34 Intake and Output 01/05/19 01/05/19 01/06/19 1515:00 23:00 07:00 IntakeIntake Total 260 ml 750 ml 400 ml BalanceBalance 260 ml 750 ml 400 ml Medications Medication Current Medications Albuterol (Ventolin Hfa) 2 puff Q4H PRN INH WHEEZING AND SOB; Start 12/01/18 at 21:00; Status Hold Ascorbic Acid (Vitamin C) 500 mg BID PO Last administered on 01/06/19at 09:01; Admin Dose 500 MG; Start 12/01/18 at 21:00 Bupropion HCl (Wellbutrin Xl) 300 mg DAILY PO Last administered on 01/06/19 09:01; Admin Dose 300 MG; Start 12/02/18 at 09:00 Cholecalciferol (Vitamin D) 1,000 unit DAILY PO Last administered on 01/06/19 09:01; Admin Dose 1,000 UNIT; Start 12/02/18 at 09:00 Diclofenac Sodium (Voltaren 1% Gel) 2 gm TID PRN TP PAIN; Start 12/01/18 at 21:00 Levothyroxine Sodium (Synthroid) 100 mcg BEFORE BREAKFAST PO Last administered on 01/06/19 06:23; Admin Dose 100 MCG; Start 12/02/18 at 07:00 Lisinopril (Zestril) 5 mg DAILY PO Last administered on 01/06/19 09:11; Admin Dose 5 MG; Start 12/02/18 at 09:00 Multivitamins Therapeutic (Theragran) 1 tab DAILY PO Last administered on 01/06/19 09:11; Admin Dose 1 TAB; Start 12/02/18 at 09:00 Polyethylene Glycol (Miralax) 17 gm DAILY PO Last administered on 12/29/18 08:33; Admin Dose 17 GM; Start 12/02/18 at 09:00 Senna (Senokot) 1 tab BID PO Last administered on 12/29/18 20:32; Admin Dose 1 TAB; Start 12/01/18 at 21:00 Vitamin B Complex/ Vitamin C (Berocca) 1 cap DAILY PO Last administered on 01/06/19 09:10; Admin Dose 1 CAP; Start 12/02/18 at 09:00 Fish Oil (Fish Oil) 1,000 mg DAILY PO Last administered on 01/06/19 09:01; Admin Dose 1,000 MG; Start 12/02/18 at 09:00 Docusate Sodium (Colace) 100 mg Q12H PRN PO .CONSTIPATION; Start 12/01/18 at 22:00 Bisacodyl (Dulcolax) 5 mg DAILY PRN PO .CONSTIPATION; Start 12/01/18 at 22:00 Lidocaine (Xylocaine 1% (Mpf)) 30 ml ONCE PRN INJ aspiration ; Start 12/04/18 at 17:30 IV Flush (NS 3 ml) 3 ml PER PROTOCOL IV ; Start 12/05/18 at 21:30 Oxycodone HCl (Roxicodone) 15 mg Q4H PRN PO .PAIN Last administered on 12/30/18 13:42; Admin Dose 5 MG; Start 12/05/18 at 21:30 Oxycodone HCl (Roxicodone) 10 mg Q4H PRN PO .PAIN Last administered on 01/06/19 02:56; Admin Dose 10 MG; Start 12/05/18 at 21:30 Oxycodone HCl (Roxicodone) 5 mg Q4H PRN PO .PAIN Last administered on 01/06/19 12:43; Admin Dose 5 MG; Start 12/05/18 at 21:30 Hydromorphone HCl (Dilaudid) 1 mg Q3H PRN IV .BREAKTHROUGH PAIN Last administered on 12/06/18 06:58; Admin Dose 1 MG; Start 12/05/18 at 21:30 Ondansetron HCl (Zofran Inj) 4 mg Q4H PRN IV NAUSEA/VOMITING; Start 12/06/18 at 21:30 Pantoprazole (Protonix Tab) 40 mg DAILY@06 PO Last administered on 01/06/19 06:23; Admin Dose 40 MG; Start 12/07/18 at 06:00 Simethicone (Mylicon) 80 mg TID PRN PO .GAS; Start 12/05/18 at 21:30 Senna/Docusate Sodium (Senokot-S) 2 tab BID PRN PO .CONSTIPATION Last administered on 12/06/18 08:54; Admin Dose 2 TAB; Start 12/05/18 at 21:30 Magnesium Hydroxide (Milk Of Mag) 30 ml HS PRN PO .CONSTIPATION; Start 12/05/18 at 21:30 Bisacodyl (Dulcolax Supp) 10 mg DAILY PRN [place] .CONSTIPATION; Start 12/05/18 at 21:30 Sodium Biphosphate/ Sodium Phosphate (Fleet Enema) 133 ml DAILY PRN [place] .CONSTIPATION; Start 12/05/18 at 21:30 Diphenhydramine HCl (Benadryl) 25 mg Q4H PRN IV .ITCHING; Start 12/05/18 at 21:30 Naloxone HCl (Narcan) 0.2 mg Q2M PRN IV .RESP RATE; Start 12/05/18 at 21:30 Bethanechol Chloride (Urecholine) 25 mg URINARY CATH D/C PRN PO UNABLE TO VOID; Start 12/05/18 at 21:30 Aspirin (Halfprin) 81 mg BID PO Last administered on 01/06/19 09:01; Admin Dose 81 MG; Start 12/06/18 at 09:00 Nystatin (Nystatin Powder) 1 applic BID TOP Last administered on 01/05/19 10:02; Admin Dose 1 APPLIC; Start 12/12/18 at 21:00 Albuterol (Proventil 0.083% (Neb)) 2.5 mg Q2H RESP THERAPY PRN HHN SHORTNESS OF BREATH; Start 12/15/18 at 12:00 Gabapentin (Neurontin) 300 mg TID PO Last administered on 01/06/19 12:42; Admin Dose 300 MG; Start 12/22/18 at 13:00 Methocarbamol (Robaxin) 750 mg TID PO Last administered on 01/06/19 12:42; Admin Dose 750 MG; Start 12/28/18 at 13:00 Linezolid (Zyvox) 600 mg BID PO Last administered on 01/06/19 09:01; Admin Dose 600 MG; Start 12/28/18 at 15:00 Meropenem/Sodium Chloride 50 ml @ 100 mls/hr Q12 IVPB Last administered on 01/06/19 09:02; Admin Dose 100 MLS/HR; Start 12/28/18 at 21:00 Acetaminophen (Tylenol Tab) 1,000 mg Q6 PRN PO pain Last administered on 01/05/19 00:17; Admin Dose 1,000 MG; Start 12/28/18 at 21:30 Alteplase, Recombinant (Cathflo (Activase)) 2 mg MAY REPEAT X1 PRN CATHETER IF CATHETER REMAINS OCCULUDED Last administered on 12/29/18 16:53; Admin Dose 2 MG; Start 12/29/18 at 16:00 Lidocaine (Lidoderm) 1 patch DAILY TD Last administered on 01/06/19 09:01; Admin Dose 1 PATCH; Start 01/06/19 at 09:00 Sodium Hypochlorite (Dakins Diluted (1/40)) 1 applic BID TP ; Start 01/06/19 at 12:03 OZZIE SOLOMON NP Jan 06, 2019 14:20
--- NOTE | 2019-01-06 15:24 | PN ---
Date/Time of Note Date/Time of Note DATE: 01/06/19 TIME: 15:24 Assessment/Plan VTE Prophylaxis Risk score (from Nsg)>0 risk: 6 SCD applied (from Nsg): Yes Pharmacological prophylaxis: heparin Lines/Catheters IV Catheter Type (from Nrsg): PICC Line Central line still needed: Yes Urinary Cath still in place: No Assessment/Plan Hospital Course 1. Sepsis secondary secondary to decubitus ulcers and/or PICC line infection - Repeat sacral wound cultures continue to show Proteus and VRE -Recent blood cultures are negative - ID on board and appreciate recommendations. There were concerns for line infection but blood cultures are currently negative -Continue antibiotics 2. Septic R knee joint s/p I&D on 12/05/18- resolved - remains stable and incision site clean and dry - Continues to work with PT. - Ortho on board and recommendations appreciated. Continue IV antibiotics until 01/14 - pain control 3. Left leg muscle spasm - Robaxin TID - replacing K 4. Sacral wound - repeat cultures continue to show VRE and Proteus -Previous hospitalist discussed with patient and son importance of airloss bed to prevent further breakdown of wound, was refused, using waffle cushion when in bedside chair -Wound care had recommending surgical consultation for debridement, consultation with Dr. Nation appreciated and patient is status post debridement -Bone biopsy shows necrosis, negative for malignancy 5. Chronic spinal disease - h/o significant stenosis of her spine. Lumbar spine and thoracic spine CT show signs of stenosis though no acute fractures. - continue lidocaine patch which was increased to 3 patches due to significant back pain, patient now stating that she would like to go back to only 1 patch -Patient is not interested in oral or IV narcotics 6. osteoarthritis - pain control 7. urinary tract infection- treated - Cultures grew Ecoli and lactobacillus - asymptomatic 8. Strep Bacteremia - continue current antibiotics - repeat cultures negative 9. Mechanical fall 10. Disposition - CM on board for SNF placement, ARU consult placed, patient is now ambulating more and may be appropriate for ARU, patient would like to ultimately return to home but only if she is able to ambulate safely Subjective 24 Hr Interval Summary Free Text/Dictation Doing well Working with PT Wants to go to ARU Exam/Review of Systems Exam Vitals Vital Signs Date Temp Pulse Resp B/P (MAP) Pulse Ox O2 O2 Flow FiO2 Time Delivery Rate 01/06/19 98.0 86 18 121/57 98 13:36 (78) 01/06/19 Room Air 01:34 Intake and Output 01/05/19 01/05/19 01/06/19 1515:00 23:00 07:00 IntakeIntake Total 260 ml 750 ml 400 ml BalanceBalance 260 ml 750 ml 400 ml Constitutional: alert, oriented, well developed Psych: no complaints, nl mood/affect Head: normocephalic, atraumatic Eyes: nl conjunctiva, EOMI, nl lids, nl sclera, PERRL ENMT: nl external ears & nose, nl lips & teeth, nl nasal mucosa & septum Neck: supple, non-tender Respiratory: clear to auscultation, normal air movement Cardiovascular: regular rate and rhythm, nl pulses Gastrointestinal: soft, nl liver, spleen, non-tender Musculoskeletal: nl extremities to inspection, nl gait and stance Extremities: normal pulses Neurological: TWX OPERATOR II-XII intact, nl mental status, nl speech, nl strength Skin: nl turgor; No rash or lesions Lymph: nl lymph nodes Medications Medication Current Medications Albuterol (Ventolin Hfa) 2 puff Q4H PRN INH WHEEZING AND SOB; Start 12/01/18 at 21:00; Status Hold Ascorbic Acid (Vitamin C) 500 mg BID PO Last administered on 01/06/19 09:01; Admin Dose 500 MG; Start 12/01/18 at 21:00 Bupropion HCl (Wellbutrin Xl) 300 mg DAILY PO Last administered on 01/06/19 09:01; Admin Dose 300 MG; Start 12/02/18 at 09:00 Cholecalciferol (Vitamin D) 1,000 unit DAILY PO Last administered on 01/06/19 09:01; Admin Dose 1,000 UNIT; Start 12/02/18 at 09:00 Diclofenac Sodium (Voltaren 1% Gel) 2 gm TID PRN TP PAIN; Start 12/01/18 at 21:00 Levothyroxine Sodium (Synthroid) 100 mcg BEFORE BREAKFAST PO Last administered on 01/06/19 06:23; Admin Dose 100 MCG; Start 12/02/18 at 07:00 Lisinopril (Zestril) 5 mg DAILY PO Last administered on 01/06/19 09:11; Admin Dose 5 MG; Start 12/02/18 at 09:00 Multivitamins Therapeutic (Theragran) 1 tab DAILY PO Last administered on 01/06/19 09:11; Admin Dose 1 TAB; Start 12/02/18 at 09:00 Polyethylene Glycol (Miralax) 17 gm DAILY PO Last administered on 12/29/18 08:33; Admin Dose 17 GM; Start 12/02/18 at 09:00 Senna (Senokot) 1 tab BID PO Last administered on 12/29/18 20:32; Admin Dose 1 TAB; Start 12/01/18 at 21:00 Vitamin B Complex/ Vitamin C (Berocca) 1 cap DAILY PO Last administered on 01/06/19 09:10; Admin Dose 1 CAP; Start 12/02/18 at 09:00 Fish Oil (Fish Oil) 1,000 mg DAILY PO Last administered on 01/06/19 09:01; Admin Dose 1,000 MG; Start 12/02/18 at 09:00 Docusate Sodium (Colace) 100 mg Q12H PRN PO .CONSTIPATION; Start 12/01/18 at 22:00 Bisacodyl (Dulcolax) 5 mg DAILY PRN PO .CONSTIPATION; Start 12/01/18 at 22:00 Lidocaine (Xylocaine 1% (Mpf)) 30 ml ONCE PRN INJ aspiration ; Start 12/04/18 at 17:30 IV Flush (NS 3 ml) 3 ml PER PROTOCOL IV ; Start 12/05/18 at 21:30 Oxycodone HCl (Roxicodone) 15 mg Q4H PRN PO .PAIN Last administered on 12/30/18 13:42; Admin Dose 5 MG; Start 12/05/18 at 21:30 Oxycodone HCl (Roxicodone) 10 mg Q4H PRN PO .PAIN Last administered on 01/06/19 02:56; Admin Dose 10 MG; Start 12/05/18 at 21:30 Oxycodone HCl (Roxicodone) 5 mg Q4H PRN PO .PAIN Last administered on 01/06/19 12:43; Admin Dose 5 MG; Start 12/05/18 at 21:30 Hydromorphone HCl (Dilaudid) 1 mg Q3H PRN IV .BREAKTHROUGH PAIN Last administered on 12/06/18 06:58; Admin Dose 1 MG; Start 12/05/18 at 21:30 Ondansetron HCl (Zofran Inj) 4 mg Q4H PRN IV NAUSEA/VOMITING; Start 12/06/18 at 21:30 Pantoprazole (Protonix Tab) 40 mg DAILY@06 PO Last administered on 01/06/19 06:23; Admin Dose 40 MG; Start 12/07/18 at 06:00 Simethicone (Mylicon) 80 mg TID PRN PO .GAS; Start 12/05/18 at 21:30 Senna/Docusate Sodium (Senokot-S) 2 tab BID PRN PO .CONSTIPATION Last administered on 12/06/18 08:54; Admin Dose 2 TAB; Start 12/05/18 at 21:30 Magnesium Hydroxide (Milk Of Mag) 30 ml HS PRN PO .CONSTIPATION; Start 12/05/18 at 21:30 Bisacodyl (Dulcolax Supp) 10 mg DAILY PRN [place] .CONSTIPATION; Start 12/05/18 at 21:30 Sodium Biphosphate/ Sodium Phosphate (Fleet Enema) 133 ml DAILY PRN [place] .CONSTIPATION; Start 12/05/18 at 21:30 Diphenhydramine HCl (Benadryl) 25 mg Q4H PRN IV .ITCHING; Start 12/05/18 at 21:30 Naloxone HCl (Narcan) 0.2 mg Q2M PRN IV .RESP RATE; Start 12/05/18 at 21:30 Bethanechol Chloride (Urecholine) 25 mg URINARY CATH D/C PRN PO UNABLE TO VOID; Start 12/05/18 at 21:30 Aspirin (Halfprin) 81 mg BID PO Last administered on 01/06/19at 09:01; Admin Dose 81 MG; Start 12/06/18 at 09:00 Nystatin (Nystatin Powder) 1 applic BID TOP Last administered on 01/05/19at 10:02; Admin Dose 1 APPLIC; Start 12/12/18 at 21:00 Albuterol (Proventil 0.083% (Neb)) 2.5 mg Q2H RESP THERAPY PRN HHN SHORTNESS OF BREATH; Start 12/15/18 at 12:00 Gabapentin (Neurontin) 300 mg TID PO Last administered on 01/06/19at 12:42; Admin Dose 300 MG; Start 12/22/18 at 13:00 Methocarbamol (Robaxin) 750 mg TID PO Last administered on 01/06/19 12:42; Admin Dose 750 MG; Start 12/28/18 at 13:00 Linezolid (Zyvox) 600 mg BID PO Last administered on 01/06/19 09:01; Admin D ose 600 MG; Start 12/28/18 at 15:00 Meropenem/Sodium Chloride 50 ml @ 100 mls/hr Q12 IVPB Last administered on 01/06/19 09:02; Admin Dose 100 MLS/HR; Start 12/28/18 at 21:00 Acetaminophen (Tylenol Tab) 1,000 mg Q6 PRN PO pain Last administered on at 00:17; Admin Dose 1,000 MG; Start 12/28/18 at 21:30 Alteplase, Recombinant (Cathflo (Activase)) 2 mg MAY REPEAT X1 PRN CATHETER IF CATHETER REMAINS OCCULUDED Last administered on 12/29/18at 16:53; Admin Dose 2 MG; Start 12/29/18 at 16:00 Lidocaine (Lidoderm) 1 patch DAILY TD Last administered on 01/06/19 09:01; Admin Dose 1 PATCH; Start 01/06/19 at 09:00 Sodium Hypochlorite (Dakins Diluted ()) 1 applic BID TP ; Start 01/06/19 at 12:03 BERT MITCHELL MD Jan 06, 2019 15:24
[2019-01-06 20:10] VITALS: BP 110/54; PULSE 79; RESP 18
[2019-01-07 02:40] VITALS: BP 108/56; PULSE 74; RESP 18
[2019-01-07] MEDS: LEVOTHYROXINE 100 MCG TAB PO SCH ×2 (05:36→10:04)
[2019-01-07] MEDS: PANTOPRAZOLE (EC) 40 MG TAB PO SCH ×2 (05:36→10:02)
[2019-01-07 08:00] VITALS: BP 135/63; PULSE 85; RESP 18
[2019-01-07] MEDS: SENNA TAB PO SCH ×2 (09:00→20:26)
[2019-01-07] MEDS: POLYETHYLENE GLYCOL 17 GM PACKET PO SCH (09:00)
[2019-01-07] MEDS: MEROPENEM 1 GM/50ML(PMX) 50 ML IVPB SCH (09:51)
[2019-01-07] MEDS: FISH OIL 1,000 MG CAP PO SCH (09:58)
[2019-01-07] MEDS: BUPROPION (XL) 150 MG TAB PO SCH (09:58)
[2019-01-07] MEDS: LISINOPRIL 5 MG TAB PO SCH (09:59)
[2019-01-07] MEDS: CHOLECALCIFEROL 1,000 UNIT TAB PO SCH (10:00)
[2019-01-07] MEDS: VITAMIN B COMPLEX/VIT C CAP PO SCH (10:00)
[2019-01-07] MEDS: ASPIRIN (EC) 81 MG TAB PO SCH ×2 (10:00→20:24)
[2019-01-07] MEDS: METHOCARBAMOL 750 MG TAB PO SCH ×3 (10:01→20:24)
[2019-01-07] MEDS: ASCORBIC ACID 500 MG TAB PO SCH ×2 (10:01→20:24)
[2019-01-07] MEDS: MULTIVITAMINS THERAPEUTIC TAB PO SCH (10:01)
[2019-01-07] MEDS: ZYVOX 600 MG TAB PO SCH ×2 (10:02→20:24)
--- NOTE | 2019-01-07 10:02 | PN ---
Date/Time of Note Date/Time of Note DATE: 01/07/19 TIME: 10:01 Assessment/Plan Lines/Catheters IV Catheter Type (from [facility]): PICC Line Schaeffer in Place (from [facility]): No Assessment/Plan Chief Complaint/Hosp Course 1. Sacral wound: + Wound cultures; debridement 01/01/2019; pending bone pathology -Repeat debridement as needed > can follow with Dr. Mcmanus at wound care clinic -Continue local care -frequent turning and off-loading -low air loss mattress -vitamin c -short term zinc -optimize nutrition 2. Bacteremia: Repeat blood culture: NGTD -Antibiotics per sensitivities 3.Septic right knee joint status post I&D: -Per Ortho 4. Spine disease: Status post spinal surgeries -Supportive 5.UTI: -abx per sensitivity -frequent bladder emptying/cath care 6. Osteoarthritis: -Medical management Thank you Subjective 24 Hr Interval Summary No acute issues. No fevers, chills, sob, congested cough, cp, palpitations, ruano, dizziness, nausea, vomiting, diarrhea, dysuria. Exam/Review of Systems Vital Signs Vitals Vital Signs Date Temp Pulse Resp B/P (MAP) Pulse Ox O2 O2 Flow FiO2 Time Delivery Rate 01/07/19 98.2 85 18 135/63 98 Room Air 08:00 (87) Intake and Output 01/06/19 01/06/19 01/07/19 1515:00 23:00 07:00 IntakeIntake Total 450 ml 450 ml 420 ml BalanceBalance 450 ml 450 ml 420 ml Exam Free Text/Dictation Constitutional: alert, oriented Psych: nl mood/affect; No anxiety Head: normocephalic, atraumatic Eyes: nl conjunctiva, EOMI, nl lids, nl sclera ENMT: nl external ears & nose, nl lips & teeth, nl nasal mucosa & septum, mucosa pink and moist Neck: supple, non-tender; No jvd Respiratory: normal air movement; No congested cough Cardiovascular: regular rate and rhythm, nl pulses; No edema Gastrointestinal: soft, non-tender; No distended Genitourinary - Female: nl external genitalia Musculoskeletal: nl extremities to inspection; No nl gait and stance Extremities: normal pulses Neurological: nl mental status, nl speech, nl strength Skin: nl turgor, other (Sacrum: Slough, minimal drainage, improved odor, minimal periwound erythema) Lymph: nl lymph nodes GABRIELA MCMANUS MD Jan 07, 2019 10:02
[2019-01-07] MEDS: GABAPENTIN 300 MG CAP PO SCH ×3 (10:03→20:24)
[2019-01-07] MEDS: LIDOCAINE 5% PATCH TD SCH (10:05)
[2019-01-07] MEDS: DAKINS 0.0125%(1/40) 473 ML SOLUTION TP SCH ×2 (10:06→20:27)
[2019-01-07] MEDS: NYSTATIN 30 GM POWDER BTL TOP SCH ×2 (10:07→20:25)
[2019-01-07] MEDS: BALSAM PERU/CASTOR OIL 60 GM TUBE TOP SCH ×2 (10:07→20:25)
--- NOTE | 2019-01-07 11:34 | CONS ---
Assessment/Plan Assessment/Plan Hospital Course (Demo Recall) No acute events Antimicrobials: Merrem, Zyvox Microbiology: Blood culture on admission grew strep, urine culture grew E. coli, MRSA swab negative, repeat blood cultures negative. Sacral wound cx + VRE/Proteus/Strep 2D echo revealed no vegetations Physical examination: This is well-developed well-nourished elderly woman who is alert in no distress. Head atraumatic normocephalic neck is supple. Chest rise symmetrical breath sounds clear. Heart: S1-S2. Abdomen soft, bowel tones present. Extremities wnl Assessment: 1. S/p fevers 2 to infected sacral wound==> s/p debridement==> bone patho + necrosis 2. Status post sepsis, present on admission 3. S/p streptococcal bacteremia 2 to #4 4. 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 S/p urinary tract infection 6. History of left total knee replacement 7. 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, will change Merrem to Cefepime and continue both abx for 6 more weeks Consultation Date/Type/Reason Admit Date/Time Dec 01, 2018 at 19:24 Initial Consult Date Type of Consult id Requesting Provider: TEREAS COSBY Date/Time of Note DATE: 01/07/19 TIME: 11:33 Exam/Review of Systems Exam Vitals Vital Signs Date Temp Pulse Resp B/P (MAP) Pulse Ox O2 O2 Flow FiO2 Time Delivery Rate 01/07/19 98.2 85 18 135/63 98 Room Air 08:00 (87) Intake and Output 01/06/19 01/06/19 01/07/19 1515:00 23:00 07:00 IntakeIntake Total 450 ml 450 ml 420 ml BalanceBalance 450 ml 450 ml 420 ml Medications Medication Current Medications Albuterol (Ventolin Hfa) 2 puff Q4H PRN INH WHEEZING AND SOB; Start 12/01/18 at 21:00; Status Hold Ascorbic Acid (Vitamin C) 500 mg BID PO Last administered on 01/07/19at 10:01; Admin Dose 500 MG; Start 12/01/18 at 21:00 Bupropion HCl (Wellbutrin Xl) 300 mg DAILY PO Last administered on 01/07/19 09:58; Admin Dose 300 MG; Start 12/02/18 at 09:00 Cholecalciferol (Vitamin D) 1,000 unit DAILY PO Last administered on 01/07/19 10:00; Admin Dose 1,000 UNIT; Start 12/02/18 at 09:00 Diclofenac Sodium (Voltaren 1% Gel) 2 gm TID PRN TP PAIN; Start 12/01/18 at 21:00 Levothyroxine Sodium (Synthroid) 100 mcg BEFORE BREAKFAST PO Last administered on 01/07/19 10:04; Admin Dose 100 MCG; Start 12/02/18 at 07:00 Lisinopril (Zestril) 5 mg DAILY PO Last administered on 01/07/19 09:59; Admin Dose 5 MG; Start 12/02/18 at 09:00 Multivitamins Therapeutic (Theragran) 1 tab DAILY PO Last administered on 01/07/19 10:01; Admin Dose 1 TAB; Start 12/02/18 at 09:00 Polyethylene Glycol (Miralax) 17 gm DAILY PO Last administered on 12/29/18 08:33; Admin Dose 17 GM; Start 12/02/18 at 09:00 Senna (Senokot) 1 tab BID PO Last administered on 12/29/18 20:32; Admin Dose 1 TAB; Start 12/01/18 at 21:00 Vitamin B Complex/ Vitamin C (Berocca) 1 cap DAILY PO Last administered on 01/07/19 10:00; Admin Dose 1 CAP; Start 12/02/18 at 09:00 Fish Oil (Fish Oil) 1,000 mg DAILY PO Last administered on 01/07/19 09:58; Admin Dose 1,000 MG; Start 12/02/18 at 09:00 Docusate Sodium (Colace) 100 mg Q12H PRN PO .CONSTIPATION; Start 12/01/18 at 22:00 Bisacodyl (Dulcolax) 5 mg DAILY PRN PO .CONSTIPATION; Start 12/01/18 at 22:00 Lidocaine (Xylocaine 1% (Mpf)) 30 ml ONCE PRN INJ aspiration ; Start 12/04/18 at 17:30 IV Flush (NS 3 ml) 3 ml PER PROTOCOL IV ; Start 12/05/18 at 21:30 Oxycodone HCl (Roxicodone) 15 mg Q4H PRN PO .PAIN Last administered on 12/30/18 13:42; Admin Dose 5 MG; Start 12/05/18 at 21:30 Oxycodone HCl (Roxicodone) 10 mg Q4H PRN PO .PAIN Last administered on 01/06/19 02:56; Admin Dose 10 MG; Start 12/05/18 at 21:30 Oxycodone HCl (Roxicodone) 5 mg Q4H PRN PO .PAIN Last administered on 01/06/19 12:43; Admin Dose 5 MG; Start 12/05/18 at 21:30 Hydromorphone HCl (Dilaudid) 1 mg Q3H PRN IV .BREAKTHROUGH PAIN Last administered on 12/06/18 06:58; Admin Dose 1 MG; Start 12/05/18 at 21:30 Ondansetron HCl (Zofran Inj) 4 mg Q4H PRN IV NAUSEA/VOMITING; Start 12/06/18 at 21:30 Pantoprazole (Protonix Tab) 40 mg DAILY@06 PO Last administered on 01/07/19 10:02; Admin Dose 40 MG; Start 12/07/18 at 06:00 Simethicone (Mylicon) 80 mg TID PRN PO .GAS; Start 12/05/18 at 21:30 Senna/Docusate Sodium (Senokot-S) 2 tab BID PRN PO .CONSTIPATION Last administered on 12/06/18 08:54; Admin Dose 2 TAB; Start 12/05/18 at 21:30 Magnesium Hydroxide (Milk Of Mag) 30 ml HS PRN PO .CONSTIPATION; Start 12/05/18 at 21:30 Bisacodyl (Dulcolax Supp) 10 mg DAILY PRN [place] .CONSTIPATION; Start 12/05/18 at 21:30 Sodium Biphosphate/ Sodium Phosphate (Fleet Enema) 133 ml DAILY PRN [place] .CONSTIPATION; Start 12/05/18 at 21:30 Diphenhydramine HCl (Benadryl) 25 mg Q4H PRN IV .ITCHING; Start 12/05/18 at 21:30 Naloxone HCl (Narcan) 0.2 mg Q2M PRN IV .RESP RATE; Start 12/05/18 at 21:30 Bethanechol Chloride (Urecholine) 25 mg URINARY CATH D/C PRN PO UNABLE TO VOID; Start 12/05/18 at 21:30 Aspirin (Halfprin) 81 mg BID PO Last administered on 01/07/19 10:00; Admin Dose 81 MG; Start 12/06/18 at 09:00 Nystatin (Nystatin Powder) 1 applic BID TOP Last administered on 01/07/19 10:07; Admin Dose 1 APPLIC; Start 12/12/18 at 21:00 Albuterol (Proventil 0.083% (Neb)) 2.5 mg Q2H RESP THERAPY PRN HHN SHORTNESS OF BREATH; Start 12/15/18 at 12:00 Gabapentin (Neurontin) 300 mg TID PO Last administered on 01/07/19 10:03; Admin Dose 300 MG; Start 12/22/18 at 13:00 Methocarbamol (Robaxin) 750 mg TID PO Last administered on 01/07/19 10:01; Admin Dose 750 MG; Start 12/28/18 at 13:00 Linezolid (Zyvox) 600 mg BID PO Last administered on 01/07/19 10:02; Admin Dose 600 MG; Start 12/28/18 at 15:00 Meropenem/Sodium Chloride 50 ml @ 100 mls/hr Q12 IVPB Last administered on 01/07/19 09:51; Admin Dose 100 MLS/HR; Start 12/28/18 at 21:00 Acetaminophen (Tylenol Tab) 1,000 mg Q6 PRN PO pain Last administered on 01/05/19 00:17; Admin Dose 1,000 MG; Start 12/28/18 at 21:30 Alteplase, Recombinant (Cathflo (Activase)) 2 mg MAY REPEAT X1 PRN CATHETER IF CATHETER REMAINS OCCULUDED Last administered on 12/29/18 16:53; Admin Dose 2 MG; Start 12/29/18 at 16:00 Lidocaine (Lidoderm) 1 patch DAILY TD Last administered on 01/07/19 10:05; Admin Dose 1 PATCH; Start 01/06/19 at 09:00 Sodium Hypochlorite (Dakins Diluted (40)) 1 applic BID TP Last administered on 01/07/19 10:06; Admin Dose 1 APPLIC; Start 01/06/19 at 12:03 OZZIE SOLOMON NP Jan 07, 2019 11:34
--- NOTE | 2019-01-07 12:27 | OPR ---
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 8 x 6 cm Operation/Procedure Performed 1. Excisional debridement of bone, fascia, muscle, subcutaneous tissue of sacrococcyx. 8 x 6 cm Surgeon Gabriela Mcmanus MD Fern Cutter Melanie Eubanks NP Anesthesia Type: other (None) Estimated Blood Loss: minimal Transfusion none Specimen Bone Grafts/Implants none Tubes/Drains Kerlix packing Complications none Pt Condition Post Procedure: stable Disposition: other (Patient's own room and bed) Indications Per notes. Risks include but are not limited to bleeding, infection, abscess, seroma, leak, damage to surrounding structures, chronic wound, chronic pain, need for re- operations or further surgeries, RI, stroke, PE, DVT, pneumonia, organ failures, or even . Procedure Description Patient was on her own bed. Placed in lateral decubitus position. All pressure points were well-padded. Patient is already on antibiotics. Timeout was performed. She was prepped and draped in usual sterile fashion. Using scalpel and curette skin, subcutaneous, muscle/fascia and soft bone were excised down to healthier tissue. Hemostasis was obtained. Wound was irrigated and packed with Kerlix. Dry dressing was applied. Patient tolerated procedure well. All counts were correct at the end of the operation 2. GABRIELA MCMANUS MD Jan 07, 2019 12:27
--- NOTE | 2019-01-07 14:18 | PN ---
Date/Time of Note Date/Time of Note DATE: 01/07/19 TIME: 14:18 Assessment/Plan VTE Prophylaxis Risk score (from Nsg)>0 risk: 6 SCD applied (from Nsg): Yes Pharmacological prophylaxis: heparin Lines/Catheters IV Catheter Type (from Nrsg): PICC Line Central line still needed: Yes Urinary Cath still in place: No Assessment/Plan Hospital Course 1. Sepsis secondary secondary to decubitus ulcers and/or PICC line infection - Repeat sacral wound cultures continue to show Proteus and VRE -Recent blood cultures are negative - ID on board and appreciate recommendations. There were concerns for line infection but blood cultures are currently negative -Continue antibiotics 2. Septic R knee joint s/p I&D on 12/05/18- resolved - remains stable and incision site clean and dry - Continues to work with PT. - Ortho on board and recommendations appreciated. Continue IV antibiotics until 01/14 - pain control 3. Left leg muscle spasm - Robaxin TID - replacing K 4. Sacral wound - repeat cultures continue to show VRE and Proteus -Previous hospitalist discussed with patient and son importance of airloss bed to prevent further breakdown of wound, was refused, using waffle cushion when in bedside chair -Wound care had recommending surgical consultation for debridement, consultation with Dr. Nation appreciated and patient is status post debridement -Bone biopsy shows necrosis, negative for malignancy 5. Chronic spinal disease - h/o significant stenosis of her spine. Lumbar spine and thoracic spine CT show signs of stenosis though no acute fractures. - continue lidocaine patch which was increased to 3 patches due to significant back pain, patient now stating that she would like to go back to only 1 patch -Patient is not interested in oral or IV narcotics 6. osteoarthritis - pain control 7. urinary tract infection- treated - Cultures grew Ecoli and lactobacillus - asymptomatic 8. Strep Bacteremia - continue current antibiotics - repeat cultures negative 9. Mechanical fall 10. Disposition - CM on board for SNF placement, ARU consult placed, patient is now ambulating more and may be appropriate for ARU, patient would like to ultimately return to home but only if she is able to ambulate safely Subjective 24 Hr Interval Summary Free Text/Dictation No change to clinical status Awaiting placement Exam/Review of Systems Exam Vitals Vital Signs Date Temp Pulse Resp B/P (MAP) Pulse Ox O2 O2 Flow FiO2 Time Delivery Rate 01/07/19 98.2 85 18 135/63 98 Room Air 08:00 (87) Intake and Output 01/06/19 01/06/19 01/07/19 1515:00 23:00 07:00 IntakeIntake Total 450 ml 450 ml 420 ml BalanceBalance 450 ml 450 ml 420 ml Constitutional: alert, oriented, well developed Psych: no complaints, nl mood/affect Head: normocephalic, atraumatic Eyes: nl conjunctiva, EOMI, nl lids, nl sclera, PERRL ENMT: nl external ears & nose, nl lips & teeth, nl nasal mucosa & septum Neck: supple, non-tender Respiratory: clear to auscultation, normal air movement Cardiovascular: regular rate and rhythm, nl pulses Gastrointestinal: soft, nl liver, spleen, non-tender Musculoskeletal: nl extremities to inspection, nl gait and stance Extremities: normal pulses Neurological: [employer] RELATIONS II-XII intact, nl mental status, nl speech, nl strength Skin: nl turgor; No rash or lesions Lymph: nl lymph nodes Medications Medication Current Medications Albuterol (Ventolin Hfa) 2 puff Q4H PRN INH WHEEZING AND SOB; Start 12/01/18 at 21:00; Status Hold Ascorbic Acid (Vitamin C) 500 mg BID PO Last administered on 01/07/19 10:01; Admin Dose 500 MG; Start 12/01/18 at 21:00 Bupropion HCl (Wellbutrin Xl) 300 mg DAILY PO Last administered on 01/07/19 09:58; Admin Dose 300 MG; Start 12/02/18 at 09:00 Cholecalciferol (Vitamin D) 1,000 unit DAILY PO Last administered on 01/07/19 10:00; Admin Dose 1,000 UNIT; Start 12/02/18 at 09:00 Diclofenac Sodium (Voltaren 1% Gel) 2 gm TID PRN TP PAIN; Start 12/01/18 at 21:00 Levothyroxine Sodium (Synthroid) 100 mcg BEFORE BREAKFAST PO Last administered on 01/07/19 10:04; Admin Dose 100 MCG; Start 12/02/18 at 07:00 Lisinopril (Zestril) 5 mg DAILY PO Last administered on 01/07/19 09:59; Admin Dose 5 MG; Start 12/02/18 at 09:00 Multivitamins Therapeutic (Theragran) 1 tab DAILY PO Last administered on 01/07/19 10:01; Admin Dose 1 TAB; Start 12/02/18 at 09:00 Polyethylene Glycol (Miralax) 17 gm DAILY PO Last administered on 12/29/18 08:33; Admin Dose 17 GM; Start 12/02/18 at 09:00 Senna (Senokot) 1 tab BID PO Last administered on 12/29/18 20:32; Admin Dose 1 TAB; Start 12/01/18 at 21:00 Vitamin B Complex/ Vitamin C (Berocca) 1 cap DAILY PO Last administered on 01/07/19 10:00; Admin Dose 1 CAP; Start 12/02/18 at 09:00 Fish Oil (Fish Oil) 1,000 mg DAILY PO Last administered on 01/07/19 09:58; Admin Dose 1,000 MG; Start 12/02/18 at 09:00 Docusate Sodium (Colace) 100 mg Q12H PRN PO .CONSTIPATION; Start 12/01/18 at 22:00 Bisacodyl (Dulcolax) 5 mg DAILY PRN PO .CONSTIPATION; Start 12/01/18 at 22:00 Lidocaine (Xylocaine 1% (Mpf)) 30 ml ONCE PRN INJ aspiration ; Start 12/04/18 at 17:30 IV Flush (NS 3 ml) 3 ml PER PROTOCOL IV ; Start 12/05/18 at 21:30 Oxycodone HCl (Roxicodone) 15 mg Q4H PRN PO .PAIN Last administered on 12/30/18 13:42; Admin Dose 5 MG; Start 12/05/18 at 21:30 Oxycodone HCl (Roxicodone) 10 mg Q4H PRN PO .PAIN Last administered on 01/06/19 02:56; Admin Dose 10 MG; Start 12/05/18 at 21:30 Oxycodone HCl (Roxicodone) 5 mg Q4H PRN PO .PAIN Last administered on 01/06/19 12:43; Admin Dose 5 MG; Start 12/05/18 at 21:30 Hydromorphone HCl (Dilaudid) 1 mg Q3H PRN IV .BREAKTHROUGH PAIN Last administered on 12/06/18 06:58; Admin Dose 1 MG; Start 12/05/18 at 21:30 Ondansetron HCl (Zofran Inj) 4 mg Q4H PRN IV NAUSEA/VOMITING; Start 12/06/18 at 21:30 Pantoprazole (Protonix Tab) 40 mg DAILY@06 PO Last administered on 01/07/19 10:02; Admin Dose 40 MG; Start 12/07/18 at 06:00 Simethicone (Mylicon) 80 mg TID PRN PO .GAS; Start 12/05/18 at 21:30 Senna/Docusate Sodium (Senokot-S) 2 tab BID PRN PO .CONSTIPATION Last administered on 12/06/18 08:54; Admin Dose 2 TAB; Start 12/05/18 at 21:30 Magnesium Hydroxide (Milk Of Mag) 30 ml HS PRN PO .CONSTIPATION; Start 12/05/18 at 21:30 Bisacodyl (Dulcolax Supp) 10 mg DAILY PRN [place] .CONSTIPATION; Start 12/05/18 at 21:30 Sodium Biphosphate/ Sodium Phosphate (Fleet Enema) 133 ml DAILY PRN [place] .CONSTIPATION; Start 12/05/18 at 21:30 Diphenhydramine HCl (Benadryl) 25 mg Q4H PRN IV .ITCHING; Start 12/05/18 at 21:30 Naloxone HCl (Narcan) 0.2 mg Q2M PRN IV .RESP RATE; Start 12/05/18 at 21:30 Bethanechol Chloride (Urecholine) 25 mg URINARY CATH D/C PRN PO UNABLE TO VOID; Start 12/05/18 at 21:30 Aspirin (Halfprin) 81 mg BID PO Last administered on 01/07/19 10:00; Admin Dose 81 MG; Start 12/06/18 at 09:00 Nystatin (Nystatin Powder) 1 applic BID TOP Last administered on 01/07/19 10:07; Admin Dose 1 APPLIC; Start 12/12/18 at 21:00 Albuterol (Proventil 0.083% (Neb)) 2.5 mg Q2H RESP THERAPY PRN HHN SHORTNESS OF BREATH; Start 12/15/18 at 12:00 Gabapentin (Neurontin) 300 mg TID PO Last administered on 01/07/19 13:53; Admin Dose 300 MG; Start 12/22/18 at 13:00 Methocarbamol (Robaxin) 750 mg TID PO Last administered on 01/07/19 13:53; Admin Dose 750 MG; Start 12/28/18 at 13:00 Linezolid (Zyvox) 600 mg BID PO Last administered on 01/07/19 10:02; Admin Dose 600 MG; Start 12/28/18 at 15:00 Acetaminophen (Tylenol Tab) 1,000 mg Q6 PRN PO pain Last administered on 01/05/19 00:17; Admin Dose 1,000 MG; Start 12/28/18 at 21:30 Alteplase, Recombinant (Cathflo (Activase)) 2 mg MAY REPEAT X1 PRN CATHETER IF CATHETER REMAINS OCCULUDED Last administered on 12/29/18 16:53; Admin Dose 2 MG; Start 12/29/18 at 16:00 Lidocaine (Lidoderm) 1 patch DAILY TD Last administered on 01/07/19 10:05; Admin Dose 1 PATCH; Start 01/06/19 at 09:00 Sodium Hypochlorite (Dakins Diluted (40)) 1 applic BID TP Last administered on 01/07/19 10:06; Admin Dose 1 APPLIC; Start 01/06/19 at 12:03 Cefepime HCl 50 ml @ 100 mls/hr Q12 IVPB ; Start 01/07/19 at 21:00 BERT MITCHELL MD Jan 07, 2019 14:18
[2019-01-07 14:36] VITALS: BP 110/59; PULSE 88; RESP 18
--- NOTE | 2019-01-07 14:49 | CONS ---
Assessment/Plan Assessment/Plan Hospital Course (Demo Recall) Preoperative cardiac risk stratification Septic arthritis status post surgery 12/05/2018 Preserved ejection fraction Hypertension -Denies symptoms of chest pain, shortness of breath or palpitations. -BP trend overall well controlled. Continue lisinopril as needed Consultation Date/Type/Reason Admit Date/Time Dec 01, 2018 at 19:24 Initial Consult Date 12/04/18 Type of Consult Cardiology Requesting Provider: TERESA COSBY Date/Time of Note DATE: 01/07/19 TIME: 14:48 24 HR Interval Summary Free Text/Dictation Denies shortness of breath, chest pain or palpitations Exam/Review of Systems Vital Signs Vitals Vital Signs Date Temp Pulse Resp B/P (MAP) Pulse Ox O2 O2 Flow FiO2 Time Delivery Rate 01/07/19 98.3 88 18 110/59 94 Room Air 14:36 (76) Intake and Output 01/06/19 01/06/19 01/07/19 1515:00 23:00 07:00 IntakeIntake Total 450 ml 450 ml 420 ml BalanceBalance 450 ml 450 ml 420 ml Exam Constitutional: alert, oriented (No apparent distress) Head: normocephalic Respiratory: other (Coarse breath sounds bilaterally, no wheezing) Cardiovascular: regular rate and rhythm (S1-S2 heard) Gastrointestinal: soft, non-tender, bowel sounds Extremities: other (No significant edema) Medications Medications Current Medications Albuterol (Ventolin Hfa) 2 puff Q4H PRN INH WHEEZING AND SOB; Start 12/01/18 at 21:00; Status Hold Ascorbic Acid (Vitamin C) 500 mg BID PO Last administered on 01/07/19at 10:01; Admin Dose 500 MG; Start 12/01/18 at 21:00 Bupropion HCl (Wellbutrin Xl) 300 mg DAILY PO Last administered on 01/07/19at 09:58; Admin Dose 300 MG; Start 12/02/18 at 09:00 Cholecalciferol (Vitamin D) 1,000 unit DAILY PO Last administered on 01/07/19at 10:00; Admin Dose 1,000 UNIT; Start 12/02/18 at 09:00 Diclofenac Sodium (Voltaren 1% Gel) 2 gm TID PRN TP PAIN; Start 12/01/18 at 21:00 Levothyroxine Sodium (Synthroid) 100 mcg BEFORE BREAKFAST PO Last administered on 01/07/19 10:04; Admin Dose 100 MCG; Start 12/02/18 at 07:00 Lisinopril (Zestril) 5 mg DAILY PO Last administered on 01/07/19 09:59; Admin Dose 5 MG; Start 12/02/18 at 09:00 Multivitamins Therapeutic (Theragran) 1 tab DAILY PO Last administered on 01/07/19 10:01; Admin Dose 1 TAB; Start 12/02/18 at 09:00 Polyethylene Glycol (Miralax) 17 gm DAILY PO Last administered on 12/29/18 08:33; Admin Dose 17 GM; Start 12/02/18 at 09:00 Senna (Senokot) 1 tab BID PO Last administered on 12/29/18 20:32; Admin Dose 1 TAB; Start 12/01/18 at 21:00 Vitamin B Complex/ Vitamin C (Berocca) 1 cap DAILY PO Last administered on 01/07/19 10:00; Admin Dose 1 CAP; Start 12/02/18 at 09:00 Fish Oil (Fish Oil) 1,000 mg DAILY PO Last administered on 01/07/19 09:58; A dmin Dose 1,000 MG; Start 12/02/18 at 09:00 Docusate Sodium (Colace) 100 mg Q12H PRN PO .CONSTIPATION; Start 12/01/18 at 22:00 Bisacodyl (Dulcolax) 5 mg DAILY PRN PO .CONSTIPATION; Start 12/01/18 at 22:00 Lidocaine (Xylocaine 1% (Mpf)) 30 ml ONCE PRN INJ aspiration ; Start 12/04/18 at 17:30 IV Flush (NS 3 ml) 3 ml PER PROTOCOL IV ; Start 12/05/18 at 21:30 Oxycodone HCl (Roxicodone) 15 mg Q4H PRN PO .PAIN Last administered on 12/30/18 13:42; Admin Dose 5 MG; Start 12/05/18 at 21:30 Oxycodone HCl (Roxicodone) 10 mg Q4H PRN PO .PAIN Last administered on 01/06/19 02:56; Admin Dose 10 MG; Start 12/05/18 at 21:30 Oxycodone HCl (Roxicodone) 5 mg Q4H PRN PO .PAIN Last administered on 01/06/19 12:43; Admin Dose 5 MG; Start 12/05/18 at 21:30 Hydromorphone HCl (Dilaudid) 1 mg Q3H PRN IV .BREAKTHROUGH PAIN Last administered on 12/06/18 06:58; Admin Dose 1 MG; Start 12/05/18 at 21:30 Ondansetron HCl (Zofran Inj) 4 mg Q4H PRN IV NAUSEA/VOMITING; Start 12/06/18 at 21:30 Pantoprazole (Protonix Tab) 40 mg DAILY@06 PO Last administered on 01/07/19 10:02; Admin Dose 40 MG; Start 12/07/18 at 06:00 Simethicone (Mylicon) 80 mg TID PRN PO .GAS; Start 12/05/18 at 21:30 Senna/Docusate Sodium (Senokot-S) 2 tab BID PRN PO .CONSTIPATION Last administered on 12/06/18 08:54; Admin Dose 2 TAB; Start 12/05/18 at 21:30 Magnesium Hydroxide (Milk Of Mag) 30 ml HS PRN PO .CONSTIPATION; Start 12/05/18 at 21:30 Bisacodyl (Dulcolax Supp) 10 mg DAILY PRN [place] .CONSTIPATION; Start 12/05/18 at 21:30 Sodium Biphosphate/ Sodium Phosphate (Fleet Enema) 133 ml DAILY PRN [place] .CONSTIPATION; Start 12/05/18 at 21:30 Diphenhydramine HCl (Benadryl) 25 mg Q4H PRN IV .ITCHING; Start 12/05/18 at 21:30 Naloxone HCl (Narcan) 0.2 mg Q2M PRN IV .RESP RATE; Start 12/05/18 at 21:30 Bethanechol Chloride (Urecholine) 25 mg URINARY CATH D/C PRN PO UNABLE TO VOID; Start 12/05/18 at 21:30 Aspirin (Halfprin) 81 mg BID PO Last administered on 01/07/19 10:00; Admin Dose 81 MG; Start 12/06/18 at 09:00 Nystatin (Nystatin Powder) 1 applic BID TOP Last administered on 01/07/19 10:07; Admin Dose 1 APPLIC; Start 12/12/18 at 21:00 Albuterol (Proventil 0.083% (Neb)) 2.5 mg Q2H RESP THERAPY PRN HHN SHORTNESS OF BREATH; Start 12/15/18 at 12:00 Gabapentin (Neurontin) 300 mg TID PO Last administered on 01/07/19 13:53; Adm in Dose 300 MG; Start 12/22/18 at 13:00 Methocarbamol (Robaxin) 750 mg TID PO Last administered on 01/07/19 13:53; Admin Dose 750 MG; Start 12/28/18 at 13:00 Linezolid (Zyvox) 600 mg BID PO Last administered on 01/07/19 10:02; Admin Dose 600 MG; Start 12/28/18 at 15:00 Acetaminophen (Tylenol Tab) 1,000 mg Q6 PRN PO pain Last administered on 01/05/19 00:17; Admin Dose 1,000 MG; Start 12/28/18 at 21:30 Alteplase, Recombinant (Cathflo (Activase)) 2 mg MAY REPEAT X1 PRN CATHETER IF CATHETER REMAINS OCCULUDED Last administered on 12/29/18 16:53; Admin Dose 2 MG; Start 12/29/18 at 16:00 Lidocaine (Lidoderm) 1 patch DAILY TD Last administered on 01/07/19 10:05; Admin Dose 1 PATCH; Start 01/06/19 at 09:00 Sodium Hypochlorite (Dakins Diluted (1/40)) 1 applic BID TP Last administered on 01/07/19 10:06; Admin Dose 1 APPLIC; Start 01/06/19 at 12:03 Cefepime HCl 50 ml @ 100 mls/hr Q12 IVPB ; Start 01/07/19 at 21:00 Martin Kelley DO Jan 07, 2019 14:49
[2019-01-07] MEDS: oxyCODONE 5 MG TAB PO PRN (16:00)
[2019-01-07 19:20] VITALS: BP 104/61; PULSE 89; RESP 16
[2019-01-07] MEDS: CEFEPIME 1GM/50 ML (PMX) 50 ML IVPB SCH (20:23)
[2019-01-07] MEDS: COLLAGENASE 5 GM (UD JAR) TOP SCH (21:19)
[2019-01-08 01:53] VITALS: BP 131/64; PULSE 86; RESP 18
[2019-01-08 07:39] VITALS: BP 134/61; PULSE 79; RESP 18
[2019-01-08] MEDS: POLYETHYLENE GLYCOL 17 GM PACKET PO SCH (09:00)
[2019-01-08] MEDS: SENNA TAB PO SCH ×2 (09:00→20:49)
[2019-01-08] MEDS: CEFEPIME 1GM/50 ML (PMX) 50 ML IVPB SCH ×2 (09:27→20:36)
[2019-01-08] MEDS: MULTIVITAMINS THERAPEUTIC TAB PO SCH (09:28)
[2019-01-08] MEDS: METHOCARBAMOL 750 MG TAB PO SCH ×3 (09:28→20:37)
[2019-01-08] MEDS: ASPIRIN (EC) 81 MG TAB PO SCH ×2 (09:28→20:37)
[2019-01-08] MEDS: LIDOCAINE 5% PATCH TD SCH (09:28)
[2019-01-08] MEDS: COLLAGENASE 5 GM (UD JAR) TOP SCH ×2 (09:28→20:38)
[2019-01-08] MEDS: FISH OIL 1,000 MG CAP PO SCH (09:29)
[2019-01-08] MEDS: VITAMIN B COMPLEX/VIT C CAP PO SCH (09:29)
[2019-01-08] MEDS: BUPROPION (XL) 150 MG TAB PO SCH (09:29)
[2019-01-08] MEDS: CHOLECALCIFEROL 1,000 UNIT TAB PO SCH (09:29)
[2019-01-08] MEDS: LISINOPRIL 5 MG TAB PO SCH (09:30)
[2019-01-08] MEDS: ASCORBIC ACID 500 MG TAB PO SCH ×2 (09:30→20:37)
[2019-01-08] MEDS: ZYVOX 600 MG TAB PO SCH ×2 (09:30→20:37)
[2019-01-08] MEDS: GABAPENTIN 300 MG CAP PO SCH ×3 (09:30→20:37)
[2019-01-08] MEDS: DAKINS 0.0125%(1/40) 473 ML SOLUTION TP SCH ×2 (09:31→20:50)
[2019-01-08] MEDS: NYSTATIN 30 GM POWDER BTL TOP SCH ×2 (09:31→20:49)
[2019-01-08] MEDS: BALSAM PERU/CASTOR OIL 60 GM TUBE TOP SCH ×2 (09:32→20:49)
--- NOTE | 2019-01-08 10:02 | PN ---
Date/Time of Note Date/Time of Note DATE: 01/08/19 TIME: 09:57 Assessment/Plan Lines/Catheters IV Catheter Type (from [facility]): PICC Line Schaeffer in Place (from [facility]): No Assessment/Plan Chief Complaint/Hosp Course 1. Sacral wound: + Wound cultures; status post repeat debridement 01/07/2019; bone pathology noted; soft bone noted during debridement> + osteo -antibiotics per ID -Repeat debridement as needed > can follow with Dr. Nation at wound care clinic -Continue local care -frequent turning and off-loading -low air loss mattress -vitamin c -short term zinc -optimize nutrition 2. Bacteremia: Repeat blood culture: NGTD -Antibiotics per sensitivities 3.Septic right knee joint status post I&D: -Per Ortho 4. Spine disease: Status post spinal surgeries -Supportive 5.UTI: -abx per sensitivity -frequent bladder emptying/cath care 6. Osteoarthritis: -Medical management Thank you. Patient seen and examined in collaboration with Dr. Fernandez Nation Subjective 24 Hr Interval Summary Status post repeat excisional debridement of sacral yesterday. Feels well. Minimal bleeding noted from sacral wound-now stopped. No fevers, chills, sob, congested cough, cp, palpitations, ruano, dizziness, nausea, vomiting, diarrhea, dysuria. Exam/Review of Systems Vital Signs Vitals Vital Signs Date Temp Pulse Resp B/P (MAP) Pulse Ox O2 O2 Flow FiO2 Time Delivery Rate 01/08/19 98.0 79 18 134/61 96 07:39 (85) 01/08/19 Room Air 01:53 Intake and Output 01/07/19 01/07/19 01/08/19 1515:00 23:00 07:00 IntakeIntake Total 890 ml 650 ml 800 ml BalanceBalance 890 ml 650 ml 800 ml Exam Free Text/Dictation Constitutional: alert, oriented Psych: nl mood/affect; No anxiety Head: normocephalic, atraumatic Eyes: nl conjunctiva, EOMI, nl lids, nl sclera ENMT: nl external ears & nose, nl lips & teeth, nl nasal mucosa & septum, mucosa pink and moist Neck: supple, non-tender; No jvd Respiratory: normal air movement; No congested cough Cardiovascular: regular rate and rhythm, nl pulses; No edema Gastrointestinal: soft, non-tender; No distended Genitourinary - Female: nl external genitalia Musculoskeletal: nl extremities to inspection; No nl gait and stance Extremities: normal pulses Neurological: nl mental status, nl speech, nl strength Skin: nl turgor, other (Sacrum: Minimal Slough, minimal drainage, no odor, minimal periwound erythema) Lymph: nl lymph nodes YESSICA ALAMO NP January 08, 2019 10:02
--- NOTE | 2019-01-08 12:51 | CONS ---
Assessment/Plan Assessment/Plan Hospital Course (Demo Recall) No changes, looks comfortable, no fevers Antimicrobials: Cefepime, Zyvox Microbiology: Blood culture on admission grew strep, urine culture grew E. coli, MRSA swab negative, repeat blood cultures negative. Sacral wound cx + VRE/Proteus/Strep 2D echo revealed no vegetations Physical examination: This is well-developed well-nourished elderly woman who is alert in no distress. Head atraumatic normocephalic neck is supple. Chest rise symmetrical breath sounds clear. Heart: S1-S2. Abdomen soft, bowel tones present. Extremities wnl Assessment: 1. 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 Status post sepsis 3. S/p streptococcal bacteremia 2 to #4 4. 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 S/p urinary tract infection 6. History of left total knee replacement 7. History of multilevel discectomy and posterior fusion from L1-L3, please see CT in the chart Plan: Remains stable, needs to continue on current abx for 6 weeks to treat OM, ok changing Zyvox to Daptomycin Consultation Date/Type/Reason Admit Date/Time Dec 01, 2018 at 19:24 Initial Consult Date Type of Consult id Requesting Provider: TERESA COSBY Date/Time of Note DATE: 01/08/19 TIME: 12:49 Exam/Review of Systems Exam Vitals Vital Signs Date Temp Pulse Resp B/P (MAP) Pulse Ox O2 O2 Flow FiO2 Time Delivery Rate 01/08/19 98.0 79 18 134/61 96 07:39 (85) 01/08/19 Room Air 01:53 Intake and Output 01/07/19 01/07/19 01/08/19 1515:00 23:00 07:00 IntakeIntake Total 890 ml 650 ml 800 ml BalanceBalance 890 ml 650 ml 800 ml Medications Medication Current Medications Albuterol (Ventolin Hfa) 2 puff Q4H PRN INH WHEEZING AND SOB; Start 12/01/18 at 21:00; Status Hold Ascorbic Acid (Vitamin C) 500 mg BID PO Last administered on 01/08/19at 09:30; Admin Dose 500 MG; Start 12/01/18 at 21:00 Bupropion HCl (Wellbutrin Xl) 300 mg DAILY PO Last administered on 01/08/19 09:29; Admin Dose 300 MG; Start 12/02/18 at 09:00 Cholecalciferol (Vitamin D) 1,000 unit DAILY PO Last administered on 01/08/19 09:29; Admin Dose 1,000 UNIT; Start 12/02/18 at 09:00 Diclofenac Sodium (Voltaren 1% Gel) 2 gm TID PRN TP PAIN; Start 12/01/18 at 21:00 Levothyroxine Sodium (Synthroid) 100 mcg BEFORE BREAKFAST PO Last administered on 01/07/19 10:04; Admin Dose 100 MCG; Start 12/02/18 at 07:00 Lisinopril (Zestril) 5 mg DAILY PO Last administered on 01/08/19 09:30; Admin Dose 5 MG; Start 12/02/18 at 09:00 Multivitamins Therapeutic (Theragran) 1 tab DAILY PO Last administered on 01/08/19 09:28; Admin Dose 1 TAB; Start 12/02/18 at 09:00 Polyethylene Glycol (Miralax) 17 gm DAILY PO Last administered on 12/29/18 08:33; Admin Dose 17 GM; Start 12/02/18 at 09:00 Senna (Senokot) 1 tab BID PO Last administered on 12/29/18 20:32; Admin Dose 1 TAB; Start 12/01/18 at 21:00 Vitamin B Complex/ Vitamin C (Berocca) 1 cap DAILY PO Last administered on 01/08/19 09:29; Admin Dose 1 CAP; Start 12/02/18 at 09:00 Fish Oil (Fish Oil) 1,000 mg DAILY PO Last administered on 01/08/19 09:29; Admin Dose 1,000 MG; Start 12/02/18 at 09:00 Docusate Sodium (Colace) 100 mg Q12H PRN PO .CONSTIPATION; Start 12/01/18 at 22:00 Bisacodyl (Dulcolax) 5 mg DAILY PRN PO .CONSTIPATION; Start 12/01/18 at 22:00 Lidocaine (Xylocaine 1% (Mpf)) 30 ml ONCE PRN INJ aspiration ; Start 12/04/18 at 17:30 IV Flush (NS 3 ml) 3 ml PER PROTOCOL IV ; Start 12/05/18 at 21:30 Oxycodone HCl (Roxicodone) 15 mg Q4H PRN PO .PAIN Last administered on 12/30/18 13:42; Admin Dose 5 MG; Start 12/05/18 at 21:30 Oxycodone HCl (Roxicodone) 10 mg Q4H PRN PO .PAIN Last administered on 01/06/19 02:56; Admin Dose 10 MG; Start 12/05/18 at 21:30 Oxycodone HCl (Roxicodone) 5 mg Q4H PRN PO .PAIN Last administered on 01/07/19 16:00; Admin Dose 5 MG; Start 12/05/18 at 21:30 Hydromorphone HCl (Dilaudid) 1 mg Q3H PRN IV .BREAKTHROUGH PAIN Last administered on 12/06/18 06:58; Admin Dose 1 MG; Start 12/05/18 at 21:30 Ondansetron HCl (Zofran Inj) 4 mg Q4H PRN IV NAUSEA/VOMITING; Start 12/06/18 at 21:30 Pantoprazole (Protonix Tab) 40 mg DAILY@06 PO Last administered on 01/07/19 10:02; Admin Dose 40 MG; Start 12/07/18 at 06:00 Simethicone (Mylicon) 80 mg TID PRN PO .GAS; Start 12/05/18 at 21:30 Senna/Docusate Sodium (Senokot-S) 2 tab BID PRN PO .CONSTIPATION Last administered on 12/06/18 08:54; Admin Dose 2 TAB; Start 12/05/18 at 21:30 Magnesium Hydroxide (Milk Of Mag) 30 ml HS PRN PO .CONSTIPATION; Start 12/05/18 at 21:30 Bisacodyl (Dulcolax Supp) 10 mg DAILY PRN [place] .CONSTIPATION; Start 12/05/18 at 21:30 Sodium Biphosphate/ Sodium Phosphate (Fleet Enema) 133 ml DAILY PRN [place] .CONSTIPATION; Start 12/05/18 at 21:30 Diphenhydramine HCl (Benadryl) 25 mg Q4H PRN IV .ITCHING; Start 12/05/18 at 21:30 Naloxone HCl (Narcan) 0.2 mg Q2M PRN IV .RESP RATE; Start 12/05/18 at 21:30 Bethanechol Chloride (Urecholine) 25 mg URINARY CATH D/C PRN PO UNABLE TO VOID; Start 12/05/18 at 21:30 Aspirin (Halfprin) 81 mg BID PO Last administered on 01/08/19 09:28; Admin Dose 81 MG; Start 12/06/18 at 09:00 Nystatin (Nystatin Powder) 1 applic BID TOP Last administered on 01/08/19 09:31; Admin Dose 1 APPLIC; Start 12/12/18 at 21:00 Albuterol (Proventil 0.083% (Neb)) 2.5 mg Q2H RESP THERAPY PRN HHN SHORTNESS OF BREATH; Start 12/15/18 at 12:00 Gabapentin (Neurontin) 300 mg TID PO Last administered on 01/08/19 09:30; Admin Dose 300 MG; Start 12/22/18 at 13:00 Methocarbamol (Robaxin) 750 mg TID PO Last administered on 01/08/19 09:28; Admin Dose 750 MG; Start 12/28/18 at 13:00 Linezolid (Zyvox) 600 mg BID PO Last administered on 01/08/19 09:30; Admin Dose 600 MG; Start 12/28/18 at 15:00 Acetaminophen (Tylenol Tab) 1,000 mg Q6 PRN PO pain Last administered on 01/05/19 00:17; Admin Dose 1,000 MG; Start 12/28/18 at 21:30 Alteplase, Recombinant (Cathflo (Activase)) 2 mg MAY REPEAT X1 PRN CATHETER IF CATHETER REMAINS OCCULUDED Last administered on 12/29/18 16:53; Admin Dose 2 MG; Start 12/29/18 at 16:00 Lidocaine (Lidoderm) 1 patch DAILY TD Last administered on 01/08/19 09:28; Admin Dose 1 PATCH; Start 01/06/19 at 09:00 Sodium Hypochlorite (Dakins Diluted ()) 1 applic BID TP Last administered on 01/08/19 09:31; Admin Dose 1 APPLIC; Start 01/06/19 at 12:03 Cefepime HCl 50 ml @ 100 mls/hr Q12 IVPB Last administered on 01/08/19 09:27; Admin Dose 100 MLS/HR; Start 01/07/19 at 21:00 Collagenase (Santyl) 1 applic BID TOP Last administered on 01/08/19at 09:28; Adm in Dose 1 APPLIC; Start 01/07/19 at 21:00 OZZIE SOLOMON NP January 08, 2019 12:51
--- NOTE | 2019-01-08 13:23 | PN ---
Date/Time of Note Date/Time of Note DATE: 01/08/19 TIME: 13:23 Assessment/Plan VTE Prophylaxis Risk score (from Nsg)>0 risk: 6 SCD applied (from Nsg): Yes Pharmacological prophylaxis: heparin Lines/Catheters IV Catheter Type (from Nrsg): PICC Line Central line still needed: Yes Urinary Cath still in place: No Assessment/Plan Hospital Course 1. Sepsis secondary secondary to decubitus ulcers and/or PICC line infection - Repeat sacral wound cultures continue to show Proteus and VRE -Recent blood cultures are negative - ID on board and appreciate recommendations. There were concerns for line infection but blood cultures are currently negative -Continue antibiotics 2. Septic R knee joint s/p I&D on 12/05/18- resolved - remains stable and incision site clean and dry - Continues to work with PT. - Ortho on board and recommendations appreciated. Continue IV antibiotics until 01/14 - pain control 3. Left leg muscle spasm - Robaxin TID - replacing K 4. Sacral wound - repeat cultures continue to show VRE and Proteus -Previous hospitalist discussed with patient and son importance of airloss bed to prevent further breakdown of wound, was refused, using waffle cushion when in bedside chair -Wound care had recommending surgical consultation for debridement, consultation with Dr. Nation appreciated and patient is status post debridement -Bone biopsy shows necrosis, negative for malignancy 5. Chronic spinal disease - h/o significant stenosis of her spine. Lumbar spine and thoracic spine CT show signs of stenosis though no acute fractures. - continue lidocaine patch which was increased to 3 patches due to significant back pain, patient now stating that she would like to go back to only 1 patch -Patient is not interested in oral or IV narcotics 6. osteoarthritis - pain control 7. urinary tract infection- treated - Cultures grew Ecoli and lactobacillus - asymptomatic 8. Strep Bacteremia - continue current antibiotics - repeat cultures negative 9. Mechanical fall 10. Disposition - CM on board for SNF placement, ARU consult placed, patient is now ambulating more and may be appropriate for ARU, patient would like to ultimately return to home but only if she is able to ambulate safely Subjective 24 Hr Interval Summary Free Text/Dictation No change to clinical status Continues on abx Awaiting placement Exam/Review of Systems Exam Vitals Vital Signs Date Temp Pulse Resp B/P (MAP) Pulse Ox O2 O2 Flow FiO2 Time Delivery Rate 01/08/19 98.0 79 18 134/61 96 07:39 (85) 01/08/19 Room Air 01:53 Intake and Output 01/07/19 01/07/19 01/08/19 1515:00 23:00 07:00 IntakeIntake Total 890 ml 650 ml 800 ml BalanceBalance 890 ml 650 ml 800 ml Constitutional: alert, oriented, well developed Psych: no complaints, nl mood/affect Head: normocephalic, atraumatic Eyes: nl conjunctiva, EOMI, nl lids, nl sclera, PERRL ENMT: nl external ears & nose, nl lips & teeth, nl nasal mucosa & septum Neck: supple, non-tender Respiratory: clear to auscultation, normal air movement Cardiovascular: regular rate and rhythm, nl pulses Gastrointestinal: soft, nl liver, spleen, non-tender Musculoskeletal: nl extremities to inspection, nl gait and stance Extremities: normal pulses Neurological: [employer] II-XII intact, nl mental status, nl speech, nl strength Skin: nl turgor; No rash or lesions Lymph: nl lymph nodes Medications Medication Current Medications Albuterol (Ventolin Hfa) 2 puff Q4H PRN INH WHEEZING AND SOB; Start 12/01/18 at 21:00; Status Hold Ascorbic Acid (Vitamin C) 500 mg BID PO Last administered on 01/08/19 09:30; Admin Dose 500 MG; Start 12/01/18 at 21:00 Bupropion HCl (Wellbutrin Xl) 300 mg DAILY PO Last administered on 01/08/19 09:29; Admin Dose 300 MG; Start 12/02/18 at 09:00 Cholecalciferol (Vitamin D) 1,000 unit DAILY PO Last administered on 01/08/19 09:29; Admin Dose 1,000 UNIT; Start 12/02/18 at 09:00 Diclofenac Sodium (Voltaren 1% Gel) 2 gm TID PRN TP PAIN; Start 12/01/18 at 21:00 Levothyroxine Sodium (Synthroid) 100 mcg BEFORE BREAKFAST PO Last administered on 01/07/19at 10:04; Admin Dose 100 MCG; Start 12/02/18 at 07:00 Lisinopril (Zestril) 5 mg DAILY PO Last administered on 01/08/19 09:30; Admin Dose 5 MG; Start 12/02/18 at 09:00 Multivitamins Therapeutic (Theragran) 1 tab DAILY PO Last administered on 01/08/19 09:28; Admin Dose 1 TAB; Start 12/02/18 at 09:00 Polyethylene Glycol (Miralax) 17 gm DAILY PO Last administered on 12/29/18 08:33; Admin Dose 17 GM; Start 12/02/18 at 09:00 Senna (Senokot) 1 tab BID PO Last administered on 12/29/18 20:32; Admin Dose 1 TAB; Start 12/01/18 at 21:00 Vitamin B Complex/ Vitamin C (Berocca) 1 cap DAILY PO Last administered on 01/08/19 09:29; Admin Dose 1 CAP; Start 12/02/18 at 09:00 Fish Oil (Fish Oil) 1,000 mg DAILY PO Last administered on 01/08/19 09:29; Admin Dose 1,000 MG; Start 12/02/18 at 09:00 Docusate Sodium (Colace) 100 mg Q12H PRN PO .CONSTIPATION; Start 12/01/18 at 22:00 Bisacodyl (Dulcolax) 5 mg DAILY PRN PO .CONSTIPATION; Start 12/01/18 at 22:00 Lidocaine (Xylocaine 1% (Mpf)) 30 ml ONCE PRN INJ aspiration ; Start 12/04/18 at 17:30 IV Flush (NS 3 ml) 3 ml PER PROTOCOL IV ; Start 12/05/18 at 21:30 Oxycodone HCl (Roxicodone) 15 mg Q4H PRN PO .PAIN Last administered on 12/30/18 13:42; Admin Dose 5 MG; Start 12/05/18 at 21:30 Oxycodone HCl (Roxicodone) 10 mg Q4H PRN PO .PAIN Last administered on 01/06/19 02:56; Admin Dose 10 MG; Start 12/05/18 at 21:30 Oxycodone HCl (Roxicodone) 5 mg Q4H PRN PO .PAIN Last administered on 01/07/19 16:00; Admin Dose 5 MG; Start 12/05/18 at 21:30 Hydromorphone HCl (Dilaudid) 1 mg Q3H PRN IV .BREAKTHROUGH PAIN Last administered on 12/06/18 06:58; Admin Dose 1 MG; Start 12/05/18 at 21:30 Ondansetron HCl (Zofran Inj) 4 mg Q4H PRN IV NAUSEA/VOMITING; Start 12/06/18 at 21:30 Pantoprazole (Protonix Tab) 40 mg DAILY@06 PO Last administered on 01/07/19 10:02; Admin Dose 40 MG; Start 12/07/18 at 06:00 Simethicone (Mylicon) 80 mg TID PRN PO .GAS; Start 12/05/18 at 21:30 Senna/Docusate Sodium (Senokot-S) 2 tab BID PRN PO .CONSTIPATION Last admin istered on 12/06/18 08:54; Admin Dose 2 TAB; Start 12/05/18 at 21:30 Magnesium Hydroxide (Milk Of Mag) 30 ml HS PRN PO .CONSTIPATION; Start 12/05/18 at 21:30 Bisacodyl (Dulcolax Supp) 10 mg DAILY PRN [place] .CONSTIPATION; Start 12/05/18 at 21:30 Sodium Biphosphate/ Sodium Phosphate (Fleet Enema) 133 ml DAILY PRN [place] .CONSTIPATION; Start 12/05/18 at 21:30 Diphenhydramine HCl (Benadryl) 25 mg Q4H PRN IV .ITCHING; Start 12/05/18 at 21:30 Naloxone HCl (Narcan) 0.2 mg Q2M PRN IV .RESP RATE; Start 12/05/18 at 21:30 Bethanechol Chloride (Urecholine) 25 mg URINARY CATH D/C PRN PO UNABLE TO VOID; Start 12/05/18 at 21:30 Aspirin (Halfprin) 81 mg BID PO Last administered on 01/08/19 09:28; Admin Dose 81 MG; Start 12/06/18 at 09:00 Nystatin (Nystatin Powder) 1 applic BID TOP Last administered on 01/08/19 09:31; Admin Dose 1 APPLIC; Start 12/12/18 at 21:00 Albuterol (Proventil 0.083% (Neb)) 2.5 mg Q2H RESP THERAPY PRN HHN SHORTNESS OF BREATH; Start 12/15/18 at 12:00 Gabapentin (Neurontin) 300 mg TID PO Last administered on 01/08/19 09:30; Admin Dose 300 MG; Start 12/22/18 at 13:00 Methocarbamol (Robaxin) 750 mg TID PO Last administered on 01/08/19 09:28; Admin Dose 750 MG; Start 12/28/18 at 13:00 Linezolid (Zyvox) 600 mg BID PO Last administered on 01/08/19 09:30; Admin Dose 600 MG; Start 12/28/18 at 15:00 Acetaminophen (Tylenol Tab) 1,000 mg Q6 PRN PO pain Last administered on 01/05/19 00:17; Admin Dose 1,000 MG; Start 12/28/18 at 21:30 Alteplase, Recombinant (Cathflo (Activase)) 2 mg MAY REPEAT X1 PRN CATHETER IF CATHETER REMAINS OCCULUDED Last administered on 12/29/18 16:53; Admin Dose 2 MG; Start 12/29/18 at 16:00 Lidocaine (Lidoderm) 1 patch DAILY TD Last administered on 01/08/19 09:28; Admin Dose 1 PATCH; Start 01/06/19 at 09:00 Sodium Hypochlorite (Dakins Diluted (1/40)) 1 applic BID TP Last administered on 01/08/19 09:31; Admin Dose 1 APPLIC; Start 01/06/19 at 12:03 Cefepime HCl 50 ml @ 100 mls/hr Q12 IVPB Last administered on 01/08/19 09:27; Admin Dose 100 MLS/HR; Start 01/07/19 at 21:00 Collagenase (Santyl) 1 applic BID TOP Last administered on 01/08/19 09:28; Admin Dose 1 APPLIC; Start 01/07/19 at 21:00 BERT MITCHELL MD January 08, 2019 13:23
[2019-01-08 14:00] VITALS: BP 105/55; PULSE 93; RESP 18
[2019-01-08 19:12] VITALS: BP 103/61; PULSE 91; RESP 18
[2019-01-09 01:08] VITALS: BP 100/49; PULSE 79; RESP 18
[2019-01-09] MEDS: PANTOPRAZOLE (EC) 40 MG TAB PO SCH (06:36)
[2019-01-09] MEDS: LEVOTHYROXINE 100 MCG TAB PO SCH (06:36)
[2019-01-09 07:38] VITALS: BP 109/60; PULSE 78; RESP 18
[2019-01-09] MEDS: POLYETHYLENE GLYCOL 17 GM PACKET PO SCH (09:00)
[2019-01-09] MEDS: LISINOPRIL 5 MG TAB PO SCH (09:00)
[2019-01-09] MEDS: SENNA TAB PO SCH ×2 (09:00→21:00)
[2019-01-09] MEDS: CEFEPIME 1GM/50 ML (PMX) 50 ML IVPB SCH ×2 (09:16→21:13)
[2019-01-09] MEDS: ASCORBIC ACID 500 MG TAB PO SCH ×2 (09:16→21:14)
[2019-01-09] MEDS: MULTIVITAMINS THERAPEUTIC TAB PO SCH (09:16)
[2019-01-09] MEDS: ZYVOX 600 MG TAB PO SCH ×2 (09:17→21:14)
[2019-01-09] MEDS: FISH OIL 1,000 MG CAP PO SCH (09:17)
[2019-01-09] MEDS: ASPIRIN (EC) 81 MG TAB PO SCH ×2 (09:17→21:14)
[2019-01-09] MEDS: GABAPENTIN 300 MG CAP PO SCH ×3 (09:17→21:14)
[2019-01-09] MEDS: VITAMIN B COMPLEX/VIT C CAP PO SCH (09:17)
[2019-01-09] MEDS: BUPROPION (XL) 150 MG TAB PO SCH (09:17)
[2019-01-09] MEDS: LIDOCAINE 5% PATCH TD SCH (09:18)
[2019-01-09] MEDS: METHOCARBAMOL 750 MG TAB PO SCH ×3 (09:18→21:14)
[2019-01-09] MEDS: CHOLECALCIFEROL 1,000 UNIT TAB PO SCH (09:18)
[2019-01-09] MEDS: COLLAGENASE 5 GM (UD JAR) TOP SCH ×2 (09:18→21:13)
[2019-01-09] MEDS: BALSAM PERU/CASTOR OIL 60 GM TUBE TOP SCH ×2 (09:19→21:14)
[2019-01-09] MEDS: DAKINS 0.0125%(1/40) 473 ML SOLUTION TP SCH ×2 (09:19→21:15)
[2019-01-09] MEDS: NYSTATIN 30 GM POWDER BTL TOP SCH ×2 (09:19→21:00)
--- NOTE | 2019-01-09 09:36 | PN ---
Date/Time of Note Date/Time of Note DATE: 01/09/19 TIME: 09:33 Assessment/Plan Lines/Catheters IV Catheter Type (from Nrs): PICC Line Schaeffer in Place (from Nrs): No Assessment/Plan Chief Complaint/Hosp Course 1. Sacral wound: + Wound cultures; status post repeat debridement 01/07/2019; bone pathology noted; soft bone noted during debridement> + osteo -cont antibiotics per ID -Repeat debridement as needed > can follow with Dr. Nation at wound care clinic -Continue local care -frequent turning and off-loading -low air loss mattress -vitamin c -short term zinc -optimize nutrition -dc ok from surgical standpoint 2. Bacteremia: Repeat blood culture: NG -Antibiotics per sensitivities 3.Septic right knee joint status post I&D: -Per Ortho 4. Spine disease: Status post spinal surgeries -Supportive 5.UTI: -abx per sensitivity -frequent bladder emptying/cath care 6. Osteoarthritis: -Medical management Thank you. Patient seen and examined in collaboration with Dr. Fernandez Nation Subjective 24 Hr Interval Summary Feels well. No fevers, chills, sob, congested cough, cp, palpitations, ruano, dizziness, n/v/d/dysuria, excessive wound drainage/odor. Exam/Review of Systems Vital Signs Vitals Vital Signs Date Temp Pulse Resp B/P (MAP) Pulse Ox O2 O2 Flow FiO2 Time Delivery Rate 01/09/19 97.6 78 18 109/60 95 07:38 (76) 01/08/19 Room Air 01:53 Intake and Output 01/08/19 01/08/19 01/09/19 1515:00 23:00 07:00 IntakeIntake Total 850 ml 350 ml 240 ml BalanceBalance 850 ml 350 ml 240 ml Exam Free Text/Dictation Constitutional: alert, oriented Psych: nl mood/affect; No anxiety Head: normocephalic, atraumatic Eyes: nl conjunctiva, EOMI, nl lids, nl sclera ENMT: nl external ears & nose, nl lips & teeth, nl nasal mucosa & septum, mucosa pink and moist Neck: supple, non-tender; No jvd Respiratory: normal air movement; No congested cough Cardiovascular: regular rate and rhythm, nl pulses; No edema Gastrointestinal: soft, non-tender; No distended Genitourinary - Female: nl external genitalia Musculoskeletal: nl extremities to inspection; No nl gait and stance Extremities: normal pulses Neurological: nl mental status, nl speech, nl strength Skin: nl turgor, other (Sacrum: Minimal Slough, minimal drainage, no odor, minimal periwound erythema) Lymph: nl lymph nodes YESSICA ALAMO NP January 09, 2019 09:35
--- NOTE | 2019-01-09 11:21 | CONS ---
Assessment/Plan Assessment/Plan Hospital Course (Demo Recall) No acute events Antimicrobials: Cefepime, Zyvox Microbiology: Blood culture on admission grew strep, urine culture grew E. coli, MRSA swab negative, repeat blood cultures negative. Sacral wound cx + VRE/Proteus/Strep 2D echo revealed no vegetations Physical examination: This is well-developed well-nourished elderly woman who is alert in no distress. Head atraumatic normocephalic neck is supple. Chest rise symmetrical breath sounds clear. Heart: S1-S2. Abdomen soft, bowel tones present. Extremities wnl Assessment: 1. 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 Status post sepsis 3. S/p streptococcal bacteremia 2 to #4 4. 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 S/p urinary tract infection 6. History of left total knee replacement 7. History of multilevel discectomy and posterior fusion from L1-L3, please see CT in the chart Plan: Remains stable, continue on current abx for 6 weeks to treat OM, ok changing Zyvox to Daptomycin, wound care per surgical rec-s, off load Consultation Date/Type/Reason Admit Date/Time Dec 01, 2018 at 19:24 Initial Consult Date Type of Consult id Requesting Provider: TERESA COSBY Date/Time of Note DATE: 01/09/19 TIME: 11:20 Exam/Review of Systems Exam Vitals Vital Signs Date Temp Pulse Resp B/P (MAP) Pulse Ox O2 O2 Flow FiO2 Time Delivery Rate 01/09/19 97.6 78 18 109/60 95 07:38 (76) 01/08/19 Room Air 01:53 Intake and Output 01/08/19 01/08/19 01/09/19 1515:00 23:00 07:00 IntakeIntake Total 850 ml 350 ml 240 ml BalanceBalance 850 ml 350 ml 240 ml Medications Medication Current Medications Albuterol (Ventolin Hfa) 2 puff Q4H PRN INH WHEEZING AND SOB; Start 12/01/18 at 21:00; Status Hold Ascorbic Acid (Vitamin C) 500 mg BID PO Last administered on 01/09/19at 09:16; Admin Dose 500 MG; Start 12/01/18 at 21:00 Bupropion HCl (Wellbutrin Xl) 300 mg DAILY PO Last administered on 01/09/19 09:17; Admin Dose 300 MG; Start 12/02/18 at 09:00 Cholecalciferol (Vitamin D) 1,000 unit DAILY PO Last administered on 01/09/19 09:18; Admin Dose 1,000 UNIT; Start 12/02/18 at 09:00 Diclofenac Sodium (Voltaren 1% Gel) 2 gm TID PRN TP PAIN; Start 12/01/18 at 21:00 Levothyroxine Sodium (Synthroid) 100 mcg BEFORE BREAKFAST PO Last administered on 01/09/19 06:36; Admin Dose 100 MCG; Start 12/02/18 at 07:00 Lisinopril (Zestril) 5 mg DAILY PO Last administered on 01/08/19 09:30; Admin Dose 5 MG; Start 12/02/18 at 09:00 Multivitamins Therapeutic (Theragran) 1 tab DAILY PO Last administered on 01/09/19 09:16; Admin Dose 1 TAB; Start 12/02/18 at 09:00 Polyethylene Glycol (Miralax) 17 gm DAILY PO Last administered on 12/29/18 08:33; Admin Dose 17 GM; Start 12/02/18 at 09:00 Senna (Senokot) 1 tab BID PO Last administered on 12/29/18 20:32; Admin Dose 1 TAB; Start 12/01/18 at 21:00 Vitamin B Complex/ Vitamin C (Berocca) 1 cap DAILY PO Last administered on 01/09/19 09:17; Admin Dose 1 CAP; Start 12/02/18 at 09:00 Fish Oil (Fish Oil) 1,000 mg DAILY PO Last administered on 01/09/19 09:17; Admin Dose 1,000 MG; Start 12/02/18 at 09:00 Docusate Sodium (Colace) 100 mg Q12H PRN PO .CONSTIPATION; Start 12/01/18 at 22:00 Bisacodyl (Dulcolax) 5 mg DAILY PRN PO .CONSTIPATION; Start 12/01/18 at 22:00 Lidocaine (Xylocaine 1% (Mpf)) 30 ml ONCE PRN INJ aspiration ; Start 12/04/18 at 17:30 IV Flush (NS 3 ml) 3 ml PER PROTOCOL IV ; Start 12/05/18 at 21:30 Oxycodone HCl (Roxicodone) 15 mg Q4H PRN PO .PAIN Last administered on 12/30/18 13:42; Admin Dose 5 MG; Start 12/05/18 at 21:30 Oxycodone HCl (Roxicodone) 10 mg Q4H PRN PO .PAIN Last administered on 01/06/19 02:56; Admin Dose 10 MG; Start 12/05/18 at 21:30 Oxycodone HCl (Roxicodone) 5 mg Q4H PRN PO .PAIN Last administered on 01/07/19 16:00; Admin Dose 5 MG; Start 12/05/18 at 21:30 Hydromorphone HCl (Dilaudid) 1 mg Q3H PRN IV .BREAKTHROUGH PAIN Last administered on 12/06/18 06:58; Admin Dose 1 MG; Start 12/05/18 at 21:30 Ondansetron HCl (Zofran Inj) 4 mg Q4H PRN IV NAUSEA/VOMITING; Start 12/06/18 at 21:30 Pantoprazole (Protonix Tab) 40 mg DAILY@06 PO Last administered on 01/09/19 06:36; Admin Dose 40 MG; Start 12/07/18 at 06:00 Simethicone (Mylicon) 80 mg TID PRN PO .GAS; Start 12/05/18 at 21:30 Senna/Docusate Sodium (Senokot-S) 2 tab BID PRN PO .CONSTIPATION Last administered on 12/06/18 08:54; Admin Dose 2 TAB; Start 12/05/18 at 21:30 Magnesium Hydroxide (Milk Of Mag) 30 ml HS PRN PO .CONSTIPATION; Start 12/05/18 at 21:30 Bisacodyl (Dulcolax Supp) 10 mg DAILY PRN [place] .CONSTIPATION; Start 12/05/18 at 21:30 Sodium Biphosphate/ Sodium Phosphate (Fleet Enema) 133 ml DAILY PRN [place] .CONSTIPATION; Start 12/05/18 at 21:30 Diphenhydramine HCl (Benadryl) 25 mg Q4H PRN IV .ITCHING; Start 12/05/18 at 21:30 Naloxone HCl (Narcan) 0.2 mg Q2M PRN IV .RESP RATE; Start 12/05/18 at 21:30 Bethanechol Chloride (Urecholine) 25 mg URINARY CATH D/C PRN PO UNABLE TO VOID; Start 12/05/18 at 21:30 Aspirin (Halfprin) 81 mg BID PO Last administered on 01/09/19 09:17; Admin Dose 81 MG; Start 12/06/18 at 09:00 Nystatin (Nystatin Powder) 1 applic BID TOP Last administered on 01/09/19 09:19; Admin Dose 1 APPLIC; Start 12/12/18 at 21:00 Albuterol (Proventil 0.083% (Neb)) 2.5 mg Q2H RESP THERAPY PRN HHN SHORTNESS OF BREATH; Start 12/15/18 at 12:00 Gabapentin (Neurontin) 300 mg TID PO Last administered on 01/09/19 09:17; Admin Dose 300 MG; Start 12/22/18 at 13:00 Methocarbamol (Robaxin) 750 mg TID PO Last administered on 01/09/19 09:18; Admin Dose 750 MG; Start 12/28/18 at 13:00 Linezolid (Zyvox) 600 mg BID PO Last administered on 01/09/19 09:17; Admin Dose 600 MG; Start 12/28/18 at 15:00 Acetaminophen (Tylenol Tab) 1,000 mg Q6 PRN PO pain Last administered on 01/05/19 00:17; Admin Dose 1,000 MG; Start 12/28/18 at 21:30 Alteplase, Recombinant (Cathflo (Activase)) 2 mg MAY REPEAT X1 PRN CATHETER IF CATHETER REMAINS OCCULUDED Last administered on 12/29/18at 16:53; Admin Dose 2 MG; Start 12/29/18 at 16:00 Lidocaine (Lidoderm) 1 patch DAILY TD Last administered on 01/09/19 09:18; Admin Dose 1 PATCH; Start 01/06/19 at 09:00 Sodium Hypochlorite (Dakins Diluted ()) 1 applic BID TP Last administered on 01/09/19 09:19; Admin Dose 1 APPLIC; Start 01/06/19 at 12:03 Cefepime HCl 50 ml @ 100 mls/hr Q12 IVPB Last administered on 01/09/19 09:16; Admin Dose 100 MLS/HR; Start 01/07/19 at 21:00 Collagenase (Santyl) 1 applic BID TOP Last administered on 01/09/19at 09:18; Admin Dose 1 APPLIC; Start 01/07/19 at 21:00 OZZIE SOLOMON NP January 09, 2019 11:21
[2019-01-09 14:21] VITALS: BP 113/65; PULSE 89; RESP 18
--- NOTE | 2019-01-09 17:01 | PN ---
Date/Time of Note Date/Time of Note DATE: 01/09/19 TIME: 17:00 Assessment/Plan VTE Prophylaxis Risk score (from Nsg)>0 risk: 6 SCD applied (from Nsg): Yes Pharmacological prophylaxis: heparin Lines/Catheters IV Catheter Type (from Nrsg): PICC Line Central line still needed: Yes Urinary Cath still in place: No Assessment/Plan Hospital Course 1. Sepsis secondary secondary to decubitus ulcers and/or PICC line infection - Repeat sacral wound cultures continue to show Proteus and VRE -Recent blood cultures are negative - ID on board and appreciate recommendations. There were concerns for line infection but blood cultures are currently negative -Continue antibiotics 2. Septic R knee joint s/p I&D on 12/05/18- resolved - remains stable and incision site clean and dry - Continues to work with PT. - Ortho on board and recommendations appreciated. Continue IV antibiotics until 01/14 - pain control 3. Left leg muscle spasm - Robaxin TID - replacing K 4. Sacral wound - repeat cultures continue to show VRE and Proteus -Previous hospitalist discussed with patient and son importance of airloss bed to prevent further breakdown of wound, was refused, using waffle cushion when in bedside chair -Wound care had recommending surgical consultation for debridement, consultation with Dr. Nation appreciated and patient is status post debridement -Bone biopsy shows necrosis, negative for malignancy 5. Chronic spinal disease - h/o significant stenosis of her spine. Lumbar spine and thoracic spine CT show signs of stenosis though no acute fractures. - continue lidocaine patch which was increased to 3 patches due to significant back pain, patient now stating that she would like to go back to only 1 patch -Patient is not interested in oral or IV narcotics 6. osteoarthritis - pain control 7. urinary tract infection- treated - Cultures grew Ecoli and lactobacillus - asymptomatic 8. Strep Bacteremia - continue current antibiotics - repeat cultures negative 9. Mechanical fall 10. Disposition - CM on board for SNF placement Subjective 24 Hr Interval Summary Free Text/Dictation No change to clinical status Very frustrated with continued hospitalization Exam/Review of Systems Exam Vitals Vital Signs Date Temp Pulse Resp B/P (MAP) Pulse Ox O2 O2 Flow FiO2 Time Delivery Rate 01/09/19 98.5 89 18 113/65 97 14:21 (81) 01/08/19 Room Air 01:53 Intake and Output 01/08/19 01/08/19 01/09/19 1515:00 23:00 07:00 IntakeIntake Total 850 ml 350 ml 240 ml BalanceBalance 850 ml 350 ml 240 ml Medications Medication Current Medications Albuterol (Ventolin Hfa) 2 puff Q4H PRN INH WHEEZING AND SOB; Start 12/01/18 at 21:00; Status Hold Ascorbic Acid (Vitamin C) 500 mg BID PO Last administered on 01/09/19 09:16; Admin Dose 500 MG; Start 12/01/18 at 21:00 Bupropion HCl (Wellbutrin Xl) 300 mg DAILY PO Last administered on 01/09/19 09:17; Admin Dose 300 MG; Start 12/02/18 at 09:00 Cholecalciferol (Vitamin D) 1,000 unit DAILY PO Last administered on 01/09/19 09:18; Admin Dose 1,000 UNIT; Start 12/02/18 at 09:00 Diclofenac Sodium (Voltaren 1% Gel) 2 gm TID PRN TP PAIN; Start 12/01/18 at 21:00 Levothyroxine Sodium (Synthroid) 100 mcg BEFORE BREAKFAST PO Last administered on 01/09/19 06:36; Admin Dose 100 MCG; Start 12/02/18 at 07:00 Lisinopril (Zestril) 5 mg DAILY PO Last administered on 01/08/19 09:30; Admin Dose 5 MG; Start 12/02/18 at 09:00 Multivitamins Therapeutic (Theragran) 1 tab DAILY PO Last administered on 01/09/19 09:16; Admin Dose 1 TAB; Start 12/02/18 at 09:00 Polyethylene Glycol (Miralax) 17 gm DAILY PO Last administered on 12/29/18 08:33; Admin Dose 17 GM; Start 12/02/18 at 09:00 Senna (Senokot) 1 tab BID PO Last administered on 12/29/18 20:32; Admin Dose 1 TAB; Start 12/01/18 at 21:00 Vitamin B Complex/ Vitamin C (Berocca) 1 cap DAILY PO Last administered on 01/09/19 09:17; Admin Dose 1 CAP; Start 12/02/18 at 09:00 Fish Oil (Fish Oil) 1,000 mg DAILY PO Last administered on 5/2/19at 09:17; Admin Dose 1,000 MG; Start 12/02/18 at 09:00 Docusate Sodium (Colace) 100 mg Q12H PRN PO .CONSTIPATION; Start 12/01/18 at 22:00 Bisacodyl (Dulcolax) 5 mg DAILY PRN PO .CONSTIPATION; Start 12/01/18 at 22:00 Lidocaine (Xylocaine 1% (Mpf)) 30 ml ONCE PRN INJ aspiration ; Start 12/04/18 at 17:30 IV Flush (NS 3 ml) 3 ml PER PROTOCOL IV ; Start 12/05/18 at 21:30 Oxycodone HCl (Roxicodone) 15 mg Q4H PRN PO .PAIN Last administered on 12/30/18 13:42; Admin Dose 5 MG; Start 12/05/18 at 21:30 Oxycodone HCl (Roxicodone) 10 mg Q4H PRN PO .PAIN Last administered on 01/06/19 02:56; Admin Dose 10 MG; Start 12/05/18 at 21:30 Oxycodone HCl (Roxicodone) 5 mg Q4H PRN PO .PAIN Last administered on 01/07/19 16:00; Admin Dose 5 MG; Start 12/05/18 at 21:30 Hydromorphone HCl (Dilaudid) 1 mg Q3H PRN IV .BREAKTHROUGH PAIN Last administered on 12/06/18 06:58; Admin Dose 1 MG; Start 12/05/18 at 21:30 Ondansetron HCl (Zofran Inj) 4 mg Q4H PRN IV NAUSEA/VOMITING; Start 12/06/18 at 21:30 Pantoprazole (Protonix Tab) 40 mg DAILY@06 PO Last administered on 01/09/19 06:36; Admin Dose 40 MG; Start 12/07/18 at 06:00 Simethicone (Mylicon) 80 mg TID PRN PO .GAS; Start 12/05/18 at 21:30 Senna/Docusate Sodium (Senokot-S) 2 tab BID PRN PO .CONSTIPATION Last administered on 12/06/18 08:54; Admin Dose 2 TAB; Start 12/05/18 at 21:30 Magnesium Hydroxide (Milk Of Mag) 30 ml HS PRN PO .CONSTIPATION; Start 12/05/18 at 21:30 Bisacodyl (Dulcolax Supp) 10 mg DAILY PRN [place] .CONSTIPATION; Start 12/05/18 at 21:30 Sodium Biphosphate/ Sodium Phosphate (Fleet Enema) 133 ml DAILY PRN [place] .CONSTIPATION; Start 12/05/18 at 21:30 Diphenhydramine HCl (Benadryl) 25 mg Q4H PRN IV .ITCHING; Start 12/05/18 at 21:30 Naloxone HCl (Narcan) 0.2 mg Q2M PRN IV .RESP RATE; Start 12/05/18 at 21:30 Bethanechol Chloride (Urecholine) 25 mg URINARY CATH D/C PRN PO UNABLE TO VOID; Start 12/05/18 at 21:30 Aspirin (Halfprin) 81 mg BID PO Last administered on 01/09/19 09:17; Admin Dose 81 MG; Start 12/06/18 at 09:00 Nystatin (Nystatin Powder) 1 applic BID TOP Last administered on 01/09/19 09:19; Admin Dose 1 APPLIC; Start 12/12/18 at 21:00 Albuterol (Proventil 0.083% (Neb)) 2.5 mg Q2H RESP THERAPY PRN HHN SHORTNESS OF BREATH; Start 12/15/18 at 12:00 Gabapentin (Neurontin) 300 mg TID PO Last administered on 01/09/19 13:30; Admin Dose 300 MG; Start 12/22/18 at 13:00 Methocarbamol (Robaxin) 750 mg TID PO Last administered on 01/09/19 13:29; Admin Dose 750 MG; Start 12/28/18 at 13:00 Linezolid (Zyvox) 600 mg BID PO Last administered on 01/09/19 09:17; Admin Dose 600 MG; Start 12/28/18 at 15:00 Acetaminophen (Tylenol Tab) 1,000 mg Q6 PRN PO pain Last administered on 01/05/19 00:17; Admin Dose 1,000 MG; Start 12/28/18 at 21:30 Alteplase, Recombinant (Cathflo (Activase)) 2 mg MAY REPEAT X1 PRN CATHETER IF CATHETER REMAINS OCCULUDED Last administered on 12/29/18at 16:53; Admin Dose 2 MG; Start 12/29/18 at 16:00 Lidocaine (Lidoderm) 1 patch DAILY TD Last administered on 01/09/19 09:18; Admin Dose 1 PATCH; Start 01/06/19 at 09:00 Sodium Hypochlorite (Dakins Diluted ()) 1 applic BID TP Last administered on 01/09/19 09:19; Admin Dose 1 APPLIC; Start 01/06/19 at 12:03 Cefepime HCl 50 ml @ 100 mls/hr Q12 IVPB Last administered on 01/09/19 09:16; Admin Dose 100 MLS/HR; Start 01/07/19 at 21:00 Collagenase (Santyl) 1 applic BID TOP Last administered on 01/09/19 09:18; Admin Dose 1 APPLIC; Start 01/07/19 at 21:00 BERT MITCHELL MD January 09, 2019 17:01
[2019-01-09 19:35] VITALS: BP 115/59; PULSE 80; RESP 18
[2019-01-09] MEDS: oxyCODONE 5 MG TAB PO PRN (23:37)
[2019-01-10 02:55] VITALS: BP 120/61; PULSE 81; RESP 18
[2019-01-10] MEDS: oxyCODONE 5 MG TAB PO PRN (06:17)
[2019-01-10] MEDS: PANTOPRAZOLE (EC) 40 MG TAB PO SCH (06:17)
[2019-01-10] MEDS: LEVOTHYROXINE 100 MCG TAB PO SCH (06:20)
[2019-01-10] MEDS: METHOCARBAMOL 750 MG TAB PO SCH ×3 (08:55→20:25)
[2019-01-10] MEDS: ASPIRIN (EC) 81 MG TAB PO SCH ×2 (08:55→20:25)
[2019-01-10] MEDS: BUPROPION (XL) 150 MG TAB PO SCH (08:55)
[2019-01-10] MEDS: CEFEPIME 1GM/50 ML (PMX) 50 ML IVPB SCH ×2 (08:55→20:26)
[2019-01-10] MEDS: GABAPENTIN 300 MG CAP PO SCH ×3 (08:55→20:25)
[2019-01-10] MEDS: CHOLECALCIFEROL 1,000 UNIT TAB PO SCH (08:56)
[2019-01-10] MEDS: ASCORBIC ACID 500 MG TAB PO SCH ×2 (08:56→20:25)
[2019-01-10] MEDS: FISH OIL 1,000 MG CAP PO SCH (08:56)
[2019-01-10] MEDS: LISINOPRIL 5 MG TAB PO SCH (08:56)
[2019-01-10] MEDS: ZYVOX 600 MG TAB PO SCH ×2 (08:56→20:25)
[2019-01-10] MEDS: COLLAGENASE 5 GM (UD JAR) TOP SCH ×2 (08:57→20:25)
[2019-01-10] MEDS: LIDOCAINE 5% PATCH TD SCH (08:57)
[2019-01-10] MEDS: BALSAM PERU/CASTOR OIL 60 GM TUBE TOP SCH ×2 (08:58→20:27)
[2019-01-10] MEDS: NYSTATIN 30 GM POWDER BTL TOP SCH ×2 (08:58→20:27)
[2019-01-10] MEDS: DAKINS 0.0125%(1/40) 473 ML SOLUTION TP SCH ×2 (08:58→20:27)
[2019-01-10] MEDS: POLYETHYLENE GLYCOL 17 GM PACKET PO SCH (09:00)
[2019-01-10] MEDS: SENNA TAB PO SCH ×3 (09:00→20:27)
[2019-01-10] MEDS: MULTIVITAMINS THERAPEUTIC TAB PO SCH (09:03)
[2019-01-10] MEDS: VITAMIN B COMPLEX/VIT C CAP PO SCH (09:03)
[2019-01-10 09:07] VITALS: BP 11/58; PULSE 82; RESP 19
--- NOTE | 2019-01-10 11:01 | PN ---
Date/Time of Note Date/Time of Note DATE: 01/10/19 TIME: 10:57 Assessment/Plan Lines/Catheters IV Catheter Type (from Nrs): PICC Line Schaeffer in Place (from Nrs): No Assessment/Plan Chief Complaint/Hosp Course 1. Sacral wound: + Wound cultures; status post repeat debridement 01/07/2019; bone pathology noted; soft bone noted during debridement> + osteo Sacral coccyx ulcer biopsy:: fragments of bone with overlying cartilage showing bone necrosis and acute osteomyelitis. -cont antibiotics per ID -Repeat debridement as needed > can follow with Dr. Nation at wound care clinic -Continue local care -frequent turning and off-loading -low air loss mattress -vitamin c -short term zinc -optimize nutrition -dc ok from surgical standpoint 2. Bacteremia: Repeat blood culture: NG -Antibiotics per sensitivities 3.Septic right knee joint status post I&D: -Per Ortho 4. Spine disease: Status post spinal surgeries -Supportive 5.UTI: -abx per sensitivity -frequent bladder emptying/cath care 6. Osteoarthritis: -Medical management Thank you. Patient seen and examined in collaboration with Dr. Fernandez Nation Subjective 24 Hr Interval Summary Feels well. No fevers, chills, sob, congested cough, cp, palpitations, runao, dizziness, nausea, vomiting, diarrhea, dysuria. Exam/Review of Systems Vital Signs Vitals Vital Signs Date Temp Pulse Resp B/P (MAP) Pulse Ox O2 O2 Flow FiO2 Time Delivery Rate 01/10/19 98.2 82 19 11/58 (42) 96 09:07 01/08/19 Room Air 01:53 Intake and Output 01/09/19 01/09/19 01/10/19 1515:00 23:00 07:00 IntakeIntake Total 650 ml 450 ml 400 ml BalanceBalance 650 ml 450 ml 400 ml Exam Free Text/Dictation Constitutional: alert, oriented Psych: nl mood/affect; No anxiety Head: normocephalic, atraumatic Eyes: nl conjunctiva, EOMI, nl lids, nl sclera ENMT: nl external ears & nose, nl lips & teeth, nl nasal mucosa & septum, mucosa pink and moist Neck: supple, non-tender; No jvd Respiratory: normal air movement; No congested cough Cardiovascular: regular rate and rhythm, nl pulses; No edema Gastrointestinal: soft, non-tender; No distended Genitourinary - Female: nl external genitalia Musculoskeletal: nl extremities to inspection; No nl gait and stance Extremities: normal pulses Neurological: nl mental status, nl speech, nl strength Skin: nl turgor, other (Sacrum: Minimal Slough, minimal drainage, no odor, minimal periwound erythema-improved) Lymph: nl lymph nodes YESSICA ALAMO NP January 10, 2019 11:01
--- NOTE | 2019-01-10 13:15 | CONS ---
Assessment/Plan Assessment/Plan Hospital Course (Demo Recall) No acute events, looks comfortable Antimicrobials: Cefepime, Zyvox Microbiology: Blood culture on admission grew strep, urine culture grew E. coli, MRSA swab negative, repeat blood cultures negative. Sacral wound cx + VRE/Proteus/Strep 2D echo revealed no vegetations Physical examination: This is well-developed well-nourished elderly woman who is alert in no distress. Head atraumatic normocephalic neck is supple. Chest rise symmetrical breath sounds clear. Heart: S1-S2. Abdomen soft, bowel tones present. Extremities wnl Assessment: 1. 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 Status post sepsis 3. S/p streptococcal bacteremia 2 to #4 4. 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 S/p urinary tract infection 6. History of left total knee replacement 7. History of multilevel discectomy and posterior fusion from L1-L3, please see CT in the chart Plan: Remains stable, continue on current abx for 6 weeks to treat OM, ok changing Zyvox to Daptomycin, wound care per surgical rec-s, off load. Check labs Consultation Date/Type/Reason Admit Date/Time Dec 01, 2018 at 19:24 Initial Consult Date Type of Consult id Requesting Provider: TERESA COSBY Date/Time of Note DATE: 01/10/19 TIME: 13:14 Exam/Review of Systems Exam Vitals Vital Signs Date Temp Pulse Resp B/P (MAP) Pulse Ox O2 O2 Flow FiO2 Time Delivery Rate 01/10/19 98.2 82 19 11/58 (42) 96 09:07 01/08/19 Room Air 01:53 Intake and Output 01/09/19 01/09/19 01/10/19 1515:00 23:00 07:00 IntakeIntake Total 650 ml 450 ml 400 ml BalanceBalance 650 ml 450 ml 400 ml Medications Medication Current Medications Albuterol (Ventolin Hfa) 2 puff Q4H PRN INH WHEEZING AND SOB; Start 12/01/18 at 21:00; Status Hold Ascorbic Acid (Vitamin C) 500 mg BID PO Last administered on 01/10/19at 08:56; Admin Dose 500 MG; Start 12/01/18 at 21:00 Bupropion HCl (Wellbutrin Xl) 300 mg DAILY PO Last administered on 01/10/19 08:55; Admin Dose 300 MG; Start 12/02/18 at 09:00 Cholecalciferol (Vitamin D) 1,000 unit DAILY PO Last administered on 01/10/19 08:56; Admin Dose 1,000 UNIT; Start 12/02/18 at 09:00 Diclofenac Sodium (Voltaren 1% Gel) 2 gm TID PRN TP PAIN; Start 12/01/18 at 21:00 Levothyroxine Sodium (Synthroid) 100 mcg BEFORE BREAKFAST PO Last administered on 01/10/19 06:20; Admin Dose 100 MCG; Start 12/02/18 at 07:00 Lisinopril (Zestril) 5 mg DAILY PO Last administered on 01/10/19 08:56; Admin Dose 5 MG; Start 12/02/18 at 09:00 Multivitamins Therapeutic (Theragran) 1 tab DAILY PO Last administered on 01/10/19 09:03; Admin Dose 1 TAB; Start 12/02/18 at 09:00 Polyethylene Glycol (Miralax) 17 gm DAILY PO Last administered on 12/29/18 08:33; Admin Dose 17 GM; Start 12/02/18 at 09:00 Senna (Senokot) 1 tab BID PO Last administered on 12/29/18 20:32; Admin Dose 1 TAB; Start 12/01/18 at 21:00 Vitamin B Complex/ Vitamin C (Berocca) 1 cap DAILY PO Last administered on 01/10/19 09:03; Admin Dose 1 CAP; Start 12/02/18 at 09:00 Fish Oil (Fish Oil) 1,000 mg DAILY PO Last administered on 01/10/19 08:56; Ad min Dose 1,000 MG; Start 12/02/18 at 09:00 Docusate Sodium (Colace) 100 mg Q12H PRN PO .CONSTIPATION; Start 12/01/18 at 22:00 Bisacodyl (Dulcolax) 5 mg DAILY PRN PO .CONSTIPATION; Start 12/01/18 at 22:00 Lidocaine (Xylocaine 1% (Mpf)) 30 ml ONCE PRN INJ aspiration ; Start 12/04/18 at 17:30 IV Flush (NS 3 ml) 3 ml PER PROTOCOL IV ; Start 12/05/18 at 21:30 Oxycodone HCl (Roxicodone) 15 mg Q4H PRN PO .PAIN Last administered on 12/30/18 13:42; Admin Dose 5 MG; Start 12/05/18 at 21:30 Oxycodone HCl (Roxicodone) 10 mg Q4H PRN PO .PAIN Last administered on 01/06/19 02:56; Admin Dose 10 MG; Start 12/05/18 at 21:30 Oxycodone HCl (Roxicodone) 5 mg Q4H PRN PO .PAIN Last administered on 01/10/19 06:17; Admin Dose 5 MG; Start 12/05/18 at 21:30 Hydromorphone HCl (Dilaudid) 1 mg Q3H PRN IV .BREAKTHROUGH PAIN Last administered on 12/06/18 06:58; Admin Dose 1 MG; Start 12/05/18 at 21:30 Ondansetron HCl (Zofran Inj) 4 mg Q4H PRN IV NAUSEA/VOMITING; Start 12/06/18 at 21:30 Pantoprazole (Protonix Tab) 40 mg DAILY@06 PO Last administered on 01/10/19 06:17; Admin Dose 40 MG; Start 12/07/18 at 06:00 Simethicone (Mylicon) 80 mg TID PRN PO .GAS; Start 12/05/18 at 21:30 Senna/Docusate Sodium (Senokot-S) 2 tab BID PRN PO .CONSTIPATION Last administered on 12/06/18 08:54; Admin Dose 2 TAB; Start 12/05/18 at 21:30 Magnesium Hydroxide (Milk Of Mag) 30 ml HS PRN PO .CONSTIPATION; Start 12/05/18 at 21:30 Bisacodyl (Dulcolax Supp) 10 mg DAILY PRN [place] .CONSTIPATION; Start 12/05/18 at 21:30 Sodium Biphosphate/ Sodium Phosphate (Fleet Enema) 133 ml DAILY PRN [place] .CONSTIPATION; Start 12/05/18 at 21:30 Diphenhydramine HCl (Benadryl) 25 mg Q4H PRN IV .ITCHING; Start 12/05/18 at 21:30 Naloxone HCl (Narcan) 0.2 mg Q2M PRN IV .RESP RATE; Start 12/05/18 at 21:30 Bethanechol Chloride (Urecholine) 25 mg URINARY CATH D/C PRN PO UNABLE TO VOID; Start 12/05/18 at 21:30 Aspirin (Halfprin) 81 mg BID PO Last administered on 01/10/19 08:55; Admin Dose 81 MG; Start 12/06/18 at 09:00 Nystatin (Nystatin Powder) 1 applic BID TOP Last administered on 01/10/19 08:58; Admin Dose 1 APPLIC; Start 12/12/18 at 21:00 Albuterol (Proventil 0.083% (Neb)) 2.5 mg Q2H RESP THERAPY PRN HHN SHORTNESS OF BREATH; Start 12/15/18 at 12:00 Gabapentin (Neurontin) 300 mg TID PO Last administered on 01/10/19 12:54; Admin Dose 300 MG; Start 12/22/18 at 13:00 Methocarbamol (Robaxin) 750 mg TID PO Last administered on 01/10/19 12:54; Admin Dose 750 MG; Start 12/28/18 at 13:00 Linezolid (Zyvox) 600 mg BID PO Last administered on 01/10/19 08:56; Admin Dose 600 MG; Start 12/28/18 at 15:00 Acetaminophen (Tylenol Tab) 1,000 mg Q6 PRN PO pain Last administered on 01/05/19 00:17; Admin Dose 1,000 MG; Start 12/28/18 at 21:30 Alteplase, Recombinant (Cathflo (Activase)) 2 mg MAY REPEAT X1 PRN CATHETER IF CATHETER REMAINS OCCULUDED Last administered on 12/29/18 16:53; Admin Dose 2 MG; Start 12/29/18 at 16:00 Lidocaine (Lidoderm) 1 patch DAILY TD Last administered on 01/10/19 08:57; Admin Dose 1 PATCH; Start 01/06/19 at 09:00 Sodium Hypochlorite (Dakins Diluted (40)) 1 applic BID TP Last administered on 01/10/19 08:58; Admin Dose 1 APPLIC; Start 01/06/19 at 12:03 Cefepime HCl 50 ml @ 100 mls/hr Q12 IVPB Last administered on 01/10/19 08:55; Admin Dose 100 MLS/HR; Start 01/07/19 at 21:00 Collagenase (Santyl) 1 applic BID TOP Last administered on 01/10/19at 08:57; Admin Dose 1 APPLIC; Start 01/07/19 at 21:00 OZZIE SOLOMON NP January 10, 2019 13:15
--- NOTE | 2019-01-10 15:25 | PN ---
Date/Time of Note Date/Time of Note DATE: 01/10/19 TIME: 15:24 Assessment/Plan VTE Prophylaxis Risk score (from Nsg)>0 risk: 6 SCD applied (from Nsg): Yes Pharmacological prophylaxis: heparin Lines/Catheters IV Catheter Type (from Nrsg): PICC Line Central line still needed: Yes Urinary Cath still in place: No Assessment/Plan Hospital Course 1. Sepsis secondary secondary to decubitus ulcers and/or PICC line infection - Repeat sacral wound cultures continue to show Proteus and VRE -Recent blood cultures are negative - ID on board and appreciate recommendations. There were concerns for line infection but blood cultures are currently negative -Continue antibiotics 2. Septic R knee joint s/p I&D on 12/05/18- resolved - remains stable and incision site clean and dry - Continues to work with PT. - Ortho on board and recommendations appreciated. Continue IV antibiotics until 01/14 - pain control 3. Left leg muscle spasm - Robaxin TID - replacing K 4. Sacral wound - repeat cultures continue to show VRE and Proteus -Previous hospitalist discussed with patient and son importance of airloss bed to prevent further breakdown of wound, was refused, using waffle cushion when in bedside chair -Wound care had recommending surgical consultation for debridement, consultation with Dr. Nation appreciated and patient is status post debridement -Bone biopsy shows necrosis, negative for malignancy 5. Chronic spinal disease - h/o significant stenosis of her spine. Lumbar spine and thoracic spine CT show signs of stenosis though no acute fractures. - continue lidocaine patch which was increased to 3 patches due to significant back pain, patient now stating that she would like to go back to only 1 patch -Patient is not interested in oral or IV narcotics 6. osteoarthritis - pain control 7. urinary tract infection- treated - Cultures grew Ecoli and lactobacillus - asymptomatic 8. Strep Bacteremia - continue current antibiotics - repeat cultures negative 9. Mechanical fall 10. Disposition - CM on board for SNF placement Result Diagram: 01/10/19 1340 01/10/19 1340 Results 24hrs Laboratory Tests Test 01/10/19 13:40 White Blood Count 8.7 Red Blood Count 3.99 L Hemoglobin 10.4 L Hematocrit 33.9 L Mean Corpuscular Volume 85.0 Mean Corpuscular Hemoglobin 26.1 L Mean Corpuscular Hemoglobin Concent 30.7 L Red Cell Distribution Width 18.7 H Platelet Count 339 Mean Platelet Volume 8.7 Immature Granulocytes % 0.300 Neutrophils % 73.7 Lymphocytes % 16.0 Monocytes % 7.6 Eosinophils % 1.5 Basophils % 0.9 Nucleated Red Blood Cells % 0.0 Immature Granulocytes # 0.030 Neutrophils # 6.4 Lymphocytes # 1.4 Monocytes # 0.7 Eosinophils # 0.1 Basophils # 0.1 Nucleated Red Blood Cells # 0.0 Sodium Level 139 Potassium Level 4.3 Chloride Level 103 Carbon Dioxide Level 27 Anion Gap 9 Blood Urea Nitrogen 25 H Creatinine 0.58 Est Glomerular Filtrat Rate mL/min Glucose Level 113 Calcium Level 9.7 Subjective 24 Hr Interval Summary Free Text/Dictation Working with PT Awaiting placement Continues on IV abx Exam/Review of Systems Exam Vitals Vital Signs Date Temp Pulse Resp B/P (MAP) Pulse Ox O2 O2 Flow FiO2 Time Delivery Rate 01/10/19 98.2 82 19 11/58 (42) 96 09:07 01/08/19 Room Air 01:53 Intake and Output 01/09/19 01/09/19 01/10/19 1515:00 23:00 07:00 IntakeIntake Total 650 ml 450 ml 400 ml BalanceBalance 650 ml 450 ml 400 ml Results Results 24hrs Laboratory Tests Test 01/10/19 13:40 White Blood Count 8.7 Red Blood Count 3.99 L Hemoglobin 10.4 L Hematocrit 33.9 L Mean Corpuscular Volume 85.0 Mean Corpuscular Hemoglobin 26.1 L Mean Corpuscular Hemoglobin Concent 30.7 L Red Cell Distribution Width 18.7 H Platelet Count 339 Mean Platelet Volume 8.7 Immature Granulocytes % 0.300 Neutrophils % 73.7 Lymphocytes % 16.0 Monocytes % 7.6 Eosinophils % 1.5 Basophils % 0.9 Nucleated Red Blood Cells % 0.0 Immature Granulocytes # 0.030 Neutrophils # 6.4 Lymphocytes # 1.4 Monocytes # 0.7 Eosinophils # 0.1 Basophils # 0.1 Nucleated Red Blood Cells # 0.0 Sodium Level 139 Potassium Level 4.3 Chloride Level 103 Carbon Dioxide Level 27 Anion Gap 9 Blood Urea Nitrogen 25 H Creatinine 0.58 Est Glomerular Filtrat Rate mL/min Glucose Level 113 Calcium Level 9.7 Medications Medication Current Medications Albuterol (Ventolin Hfa) 2 puff Q4H PRN INH WHEEZING AND SOB; Start 12/01/18 at 21:00; Status Hold Ascorbic Acid (Vitamin C) 500 mg BID PO Last administered on 01/10/19 08:56; Admin Dose 500 MG; Start 12/01/18 at 21:00 Bupropion HCl (Wellbutrin Xl) 300 mg DAILY PO Last administered on 01/10/19 08:55; Admin Dose 300 MG; Start 12/02/18 at 09:00 Cholecalciferol (Vitamin D) 1,000 unit DAILY PO Last administered on 01/10/19 08:56; Admin Dose 1,000 UNIT; Start 12/02/18 at 09:00 Diclofenac Sodium (Voltaren 1% Gel) 2 gm TID PRN TP PAIN; Start 12/01/18 at 21:00 Levothyroxine Sodium (Synthroid) 100 mcg BEFORE BREAKFAST PO Last administered on 01/10/19 06:20; Admin Dose 100 MCG; Start 12/02/18 at 07:00 Lisinopril (Zestril) 5 mg DAILY PO Last administered on 01/10/19 08:56; Admin Dose 5 MG; Start 12/02/18 at 09:00 Multivitamins Therapeutic (Theragran) 1 tab DAILY PO Last administered on 01/10/19 09:03; Admin Dose 1 TAB; Start 12/02/18 at 09:00 Polyethylene Glycol (Miralax) 17 gm DAILY PO Last administered on 12/29/18 08:33; Admin Dose 17 GM; Start 12/02/18 at 09:00 Senna (Senokot) 1 tab BID PO Last administered on 12/29/18 20:32; Admin Dose 1 TAB; Start 12/01/18 at 21:00 Vitamin B Complex/ Vitamin C (Berocca) 1 cap DAILY PO Last administered on 01/10/19 09:03; Admin Dose 1 CAP; Start 12/02/18 at 09:00 Fish Oil (Fish Oil) 1,000 mg DAILY PO Last administered on 01/10/19 08:56; Admin Dose 1,000 MG; Start 12/02/18 at 09:00 Docusate Sodium (Colace) 100 mg Q12H PRN PO .CONSTIPATION; Start 12/01/18 at 22:00 Bisacodyl (Dulcolax) 5 mg DAILY PRN PO .CONSTIPATION; Start 12/01/18 at 22:00 Lidocaine (Xylocaine 1% (Mpf)) 30 ml ONCE PRN INJ aspiration ; Start 12/04/18 at 17:30 IV Flush (NS 3 ml) 3 ml PER PROTOCOL IV ; Start 12/05/18 at 21:30 Oxycodone HCl (Roxicodone) 15 mg Q4H PRN PO .PAIN Last administered on 12/30/18at 13:42; Admin Dose 5 MG; Start 12/05/18 at 21:30 Oxycodone HCl (Roxicodone) 10 mg Q4H PRN PO .PAIN Last administered on 02:56; Admin Dose 10 MG; Start 12/05/18 at 21:30 Oxycodone HCl (Roxicodone) 5 mg Q4H PRN PO .PAIN Last administered on 01/10/19 06:17; Admin Dose 5 MG; Start 12/05/18 at 21:30 Hydromorphone HCl (Dilaudid) 1 mg Q3H PRN IV .BREAKTHROUGH PAIN Last administered on 12/06/18 06:58; Admin Dose 1 MG; Start 12/05/18 at 21:30 Ondansetron HCl (Zofran Inj) 4 mg Q4H PRN IV NAUSEA/VOMITING; Start 12/06/18 at 21:30 Pantoprazole (Protonix Tab) 40 mg DAILY@06 PO Last administered on 01/10/19 06:17; Admin Dose 40 MG; Start 12/07/18 at 06:00 Simethicone (Mylicon) 80 mg TID PRN PO .GAS; Start 12/05/18 at 21:30 Senna/Docusate Sodium (Senokot-S) 2 tab BID PRN PO .CONSTIPATION Last administered on 12/06/18 08:54; Admin Dose 2 TAB; Start 12/05/18 at 21:30 Magnesium Hydroxide (Milk Of Mag) 30 ml HS PRN PO .CONSTIPATION; Start 12/05/18 at 21:30 Bisacodyl (Dulcolax Supp) 10 mg DAILY PRN [place] .CONSTIPATION; Start 12/05/18 at 21:30 Sodium Biphosphate/ Sodium Phosphate (Fleet Enema) 133 ml DAILY PRN [place] .CONSTIPATION; Start 12/05/18 at 21:30 Diphenhydramine HCl (Benadryl) 25 mg Q4H PRN IV .ITCHING; Start 12/05/18 at 21:30 Naloxone HCl (Narcan) 0.2 mg Q2M PRN IV .RESP RATE; Start 12/05/18 at 21:30 Bethanechol Chloride (Urecholine) 25 mg URINARY CATH D/C PRN PO UNABLE TO VOID; Start 12/05/18 at 21:30 Aspirin (Halfprin) 81 mg BID PO Last administered on 01/10/19 08:55; Admin Dose 81 MG; Start 12/06/18 at 09:00 Nystatin (Nystatin Powder) 1 applic BID TOP Last administered on 01/10/19 08:58; Admin Dose 1 APPLIC; Start 12/12/18 at 21:00 Albuterol (Proventil 0.083% (Neb)) 2.5 mg Q2H RESP THERAPY PRN HHN SHORTNESS OF BREATH; Start 12/15/18 at 12:00 Gabapentin (Neurontin) 300 mg TID PO Last administered on 01/10/19 12:54; Admin Dose 300 MG; Start 12/22/18 at 13:00 Methocarbamol (Robaxin) 750 mg TID PO Last administered on 01/10/19 12:54; Admin Dose 750 MG; Start 12/28/18 at 13:00 Linezolid (Zyvox) 600 mg BID PO Last administered on 01/10/19 08:56; Admin Dose 600 MG; Start 12/28/18 at 15:00 Acetaminophen (Tylenol Tab) 1,000 mg Q6 PRN PO pain Last administered on 01/05/19 00:17; Admin Dose 1,000 MG; Start 12/28/18 at 21:30 Alteplase, Recombinant (Cathflo (Activase)) 2 mg MAY REPEAT X1 PRN CATHETER IF CATHETER REMAINS OCCULUDED Last administered on 12/29/18 16:53; Admin Dose 2 MG; Start 12/29/18 at 16:00 Lidocaine (Lidoderm) 1 patch DAILY TD Last administered on 01/10/19 08:57; Admin Dose 1 PATCH; Start 01/06/19 at 09:00 Sodium Hypochlorite (Dakins Diluted ()) 1 applic BID TP Last administered on 5/3/19at 08:58; Admin Dose 1 APPLIC; Start 01/06/19 at 12:03 Cefepime HCl 50 ml @ 100 mls/hr Q12 IVPB Last administered on 01/10/19 08:55; Admin Dose 100 MLS/HR; Start 01/07/19 at 21:00 Collagenase (Santyl) 1 applic BID TOP Last administered on 01/10/19 08:57; Admin Dose 1 APPLIC; Start 01/07/19 at 21:00 BERT MITCHELL MD January 10, 2019 15:25
[2019-01-10 15:32] VITALS: BP 104/71; PULSE 76; RESP 19
[2019-01-10 21:36] VITALS: BP 96/51; PULSE 72; RESP 18
[2019-01-11] MEDS: oxyCODONE 5 MG TAB PO PRN ×2 (01:26→15:41)
[2019-01-11 02:09] VITALS: BP 116/57; PULSE 76; RESP 18
[2019-01-11] MEDS: PANTOPRAZOLE (EC) 40 MG TAB PO SCH (05:30)
[2019-01-11] MEDS: LEVOTHYROXINE 100 MCG TAB PO SCH (05:30)
[2019-01-11 08:08] VITALS: BP 118/60; PULSE 80; RESP 18
[2019-01-11] MEDS: SENNA TAB PO SCH ×2 (09:00→20:49)
[2019-01-11] MEDS: POLYETHYLENE GLYCOL 17 GM PACKET PO SCH (09:00)
[2019-01-11] MEDS: METHOCARBAMOL 750 MG TAB PO SCH ×3 (09:01→20:49)
[2019-01-11] MEDS: LIDOCAINE 5% PATCH TD SCH (09:02)
[2019-01-11] MEDS: MULTIVITAMINS THERAPEUTIC TAB PO SCH (09:02)
[2019-01-11] MEDS: ASCORBIC ACID 500 MG TAB PO SCH ×2 (09:02→20:49)
[2019-01-11] MEDS: CHOLECALCIFEROL 1,000 UNIT TAB PO SCH (09:03)
[2019-01-11] MEDS: VITAMIN B COMPLEX/VIT C CAP PO SCH (09:03)
[2019-01-11] MEDS: ZYVOX 600 MG TAB PO SCH ×2 (09:03→20:49)
[2019-01-11] MEDS: BUPROPION (XL) 150 MG TAB PO SCH (09:03)
[2019-01-11] MEDS: GABAPENTIN 300 MG CAP PO SCH ×3 (09:03→20:49)
[2019-01-11] MEDS: FISH OIL 1,000 MG CAP PO SCH (09:03)
[2019-01-11] MEDS: ASPIRIN (EC) 81 MG TAB PO SCH ×2 (09:03→20:49)
[2019-01-11] MEDS: LISINOPRIL 5 MG TAB PO SCH (09:04)
[2019-01-11] MEDS: CEFEPIME 1GM/50 ML (PMX) 50 ML IVPB SCH ×2 (09:04→20:48)
[2019-01-11] MEDS: COLLAGENASE 5 GM (UD JAR) TOP SCH ×2 (09:04→20:48)
[2019-01-11] MEDS: DAKINS 0.0125%(1/40) 473 ML SOLUTION TP SCH ×2 (09:10→20:54)
[2019-01-11] MEDS: BALSAM PERU/CASTOR OIL 60 GM TUBE TOP SCH ×2 (09:10→20:54)
--- NOTE | 2019-01-11 10:12 | CONS ---
Consultation Date/Type/Reason Admit Date/Time Dec 01, 2018 at 19:24 Initial Consult Date SUBJECTIVE: Pt is awake, alert, afebrile. NO acute events over night. VS: stable T: 98.0 LABS: reviewed. WBC- 5.8 as of yesterday Antimicrobials: cefepime and Zyvox Microbiology: Blood culture on admission grew strep, urine culture grew E. coli, MRSA swab negative, repeat blood cultures negative. Sacral wound cx + MRSA/Proteus/Strep Sacral wound culture: Sacral wound cx + VRE/Proteus/Strep 2D echo revealed no vegetations Physical examination: GEN: This is well-developed well-nourished elderly woman, who is alert in no distress. HENT: Head atraumatic normocephalic, neck is supple. PULM: Chest rise symmetrical breath sounds clear. Heart: S1-S2. Abdomen: soft, bowel tones present. Extremities with right knee erythema and swelling Assessment: 1. 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 Status post sepsis, present on admission 3. Streptococcal bacteremia 2 to #3 4. 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 S/P Urinary tract infection 6. History of left total knee replacement 7. History of multilevel discectomy and posterior fusion from L1-L3, please see CT in the chart Plan: Patient remains stable. Continue on current abx for 6 weeks to treat OM. Ok changing Zyvox to Daptomycin. Continue wound care per surgical rec-s and off loading. Requesting Provider: TERESA COSBY Date/Time of Note DATE: 01/11/19 TIME: 10:08 Exam/Review of Systems Exam Vitals Vital Signs Date Temp Pulse Resp B/P (MAP) Pulse Ox O2 O2 Flow FiO2 Time Delivery Rate 01/11/19 98.0 80 18 118/60 92 08:08 (79) 01/08/19 Room Air 01:53 Intake and Output 01/10/19 01/10/19 01/11/19 1515:00 23:00 07:00 IntakeIntake Total 450 ml 1110 ml 240 ml BalanceBalance 450 ml 1110 ml 240 ml Results Result Diagram: 01/10/19 1340 01/10/19 1340 Results 24hrs Laboratory Tests Test 01/10/19 13:40 White Blood Count 8.7 Red Blood Count 3.99 L Hemoglobin 10.4 L Hematocrit 33.9 L Mean Corpuscular Volume 85.0 Mean Corpuscular Hemoglobin 26.1 L Mean Corpuscular Hemoglobin Concent 30.7 L Red Cell Distribution Width 18.7 H Platelet Count 339 Mean Platelet Volume 8.7 Immature Granulocytes % 0.300 Neutrophils % 73.7 Lymphocytes % 16.0 Monocytes % 7.6 Eosinophils % 1.5 Basophils % 0.9 Nucleated Red Blood Cells % 0.0 Immature Granulocytes # 0.030 Neutrophils # 6.4 Lymphocytes # 1.4 Monocytes # 0.7 Eosinophils # 0.1 Basophils # 0.1 Nucleated Red Blood Cells # 0.0 Sodium Level 139 Potassium Level 4.3 Chloride Level 103 Carbon Dioxide Level 27 Anion Gap 9 Blood Urea Nitrogen 25 H Creatinine 0.58 Est Glomerular Filtrat Rate mL/min Glucose Level 113 Calcium Level 9.7 Medications Medication Current Medications Albuterol (Ventolin Hfa) 2 puff Q4H PRN INH WHEEZING AND SOB; Start 12/01/18 at 21:00; Status Hold Ascorbic Acid (Vitamin C) 500 mg BID PO Last administered on 01/11/19 09:02; Admin Dose 500 MG; Start 12/01/18 at 21:00 Bupropion HCl (Wellbutrin Xl) 300 mg DAILY PO Last administered on 01/11/19 09:03; Admin Dose 300 MG; Start 12/02/18 at 09:00 Cholecalciferol (Vitamin D) 1,000 unit DAILY PO Last administered on 01/11/19 09:03; Admin Dose 1,000 UNIT; Start 12/02/18 at 09:00 Diclofenac Sodium (Voltaren 1% Gel) 2 gm TID PRN TP PAIN; Start 12/01/18 at 21:00 Levothyroxine Sodium (Synthroid) 100 mcg BEFORE BREAKFAST PO Last administered on 01/11/19 05:30; Admin Dose 100 MCG; Start 12/02/18 at 07:00 Lisinopril (Zestril) 5 mg DAILY PO Last administered on 01/11/19 09:04; Admin Dose 5 MG; Start 12/02/18 at 09:00 Multivitamins Therapeutic (Theragran) 1 tab DAILY PO Last administered on 01/11/19 09:02; Admin Dose 1 TAB; Start 12/02/18 at 09:00 Polyethylene Glycol (Miralax) 17 gm DAILY PO Last administered on 12/29/18 08:33; Admin Dose 17 GM; Start 12/02/18 at 09:00 Senna (Senokot) 1 tab BID PO Last administered on 12/29/18 20:32; Admin Dose 1 TAB; Start 12/01/18 at 21:00 Vitamin B Complex/ Vitamin C (Berocca) 1 cap DAILY PO Last administered on 01/11/19 09:03; Admin Dose 1 CAP; Start 12/02/18 at 09:00 Fish Oil (Fish Oil) 1,000 mg DAILY PO Last administered on 01/11/19 09:03; Admin Dose 1,000 MG; Start 12/02/18 at 09:00 Docusate Sodium (Colace) 100 mg Q12H PRN PO .CONSTIPATION; Start 12/01/18 at 22:00 Bisacodyl (Dulcolax) 5 mg DAILY PRN PO .CONSTIPATION; Start 12/01/18 at 22:00 Lidocaine (Xylocaine 1% (Mpf)) 30 ml ONCE PRN INJ aspiration ; Start 12/04/18 at 17:30 IV Flush (NS 3 ml) 3 ml PER PROTOCOL IV ; Start 12/05/18 at 21:30 Oxycodone HCl (Roxicodone) 15 mg Q4H PRN PO .PAIN Last administered on 12/30/18 13:42; Admin Dose 5 MG; Start 12/05/18 at 21:30 Oxycodone HCl (Roxicodone) 10 mg Q4H PRN PO .PAIN Last administered on 01/06/19 02:56; Admin Dose 10 MG; Start 12/05/18 at 21:30 Oxycodone HCl (Roxicodone) 5 mg Q4H PRN PO .PAIN Last administered on 01/11/19 01:26; Admin Dose 5 MG; Start 12/05/18 at 21:30 Hydromorphone HCl (Dilaudid) 1 mg Q3H PRN IV .BREAKTHROUGH PAIN Last administe red on 12/06/18 06:58; Admin Dose 1 MG; Start 12/05/18 at 21:30 Ondansetron HCl (Zofran Inj) 4 mg Q4H PRN IV NAUSEA/VOMITING; Start 12/06/18 at 21:30 Pantoprazole (Protonix Tab) 40 mg DAILY@06 PO Last administered on 01/11/19 05:30; Admin Dose 40 MG; Start 12/07/18 at 06:00 Simethicone (Mylicon) 80 mg TID PRN PO .GAS; Start 12/05/18 at 21:30 Senna/Docusate Sodium (Senokot-S) 2 tab BID PRN PO .CONSTIPATION Last administered on 12/06/18 08:54; Admin Dose 2 TAB; Start 12/05/18 at 21:30 Magnesium Hydroxide (Milk Of Mag) 30 ml HS PRN PO .CONSTIPATION; Start 12/05/18 at 21:30 Bisacodyl (Dulcolax Supp) 10 mg DAILY PRN [place] .CONSTIPATION; Start 12/05/18 at 21:30 Sodium Biphosphate/ Sodium Phosphate (Fleet Enema) 133 ml DAILY PRN [place] .CONSTIPATION; Start 12/05/18 at 21:30 Diphenhydramine HCl (Benadryl) 25 mg Q4H PRN IV .ITCHING; Start 12/05/18 at 21:30 Naloxone HCl (Narcan) 0.2 mg Q2M PRN IV .RESP RATE; Start 12/05/18 at 21:30 Bethanechol Chloride (Urecholine) 25 mg URINARY CATH D/C PRN PO UNABLE TO VOID; Start 12/05/18 at 21:30 Aspirin (Halfprin) 81 mg BID PO Last administered on 01/11/19 09:03; Admin Dose 81 MG; Start 12/06/18 at 09:00 Nystatin (Nystatin Powder) 1 applic BID TOP Last administered on 01/10/19 20:27; Admin Dose 1 APPLIC; Start 12/12/18 at 21:00 Albuterol (Proventil 0.083% (Neb)) 2.5 mg Q2H RESP THERAPY PRN HHN SHORTNESS OF BREATH; Start 12/15/18 at 12:00 Gabapentin (Neurontin) 300 mg TID PO Last administered on 01/11/19 09:03; Admin Dose 300 MG; Start 12/22/18 at 13:00 Methocarbamol (Robaxin) 750 mg TID PO Last administered on 5/4/19at 09:01; Admin Dose 750 MG; Start 12/28/18 at 13:00 Linezolid (Zyvox) 600 mg BID PO Last administered on 01/11/19 09:03; Admin Dose 600 MG; Start 12/28/18 at 15:00 Acetaminophen (Tylenol Tab) 1,000 mg Q6 PRN PO pain Last administered on 01/05/19 00:17; Admin Dose 1,000 MG; Start 12/28/18 at 21:30 Alteplase, Recombinant (Cathflo (Activase)) 2 mg MAY REPEAT X1 PRN CATHETER IF CATHETER REMAINS OCCULUDED Last administered on 12/29/18 16:53; Admin Dose 2 MG; Start 12/29/18 at 16:00 Lidocaine (Lidoderm) 1 patch DAILY TD Last administered on 01/11/19 09:02; Admin Dose 1 PATCH; Start 01/06/19 at 09:00 Sodium Hypochlorite (Dakins Diluted (1/40)) 1 applic BID TP Last administered on 01/11/19 09:10; Admin Dose 1 APPLIC; Start 01/06/19 at 12:03 Cefepime HCl 50 ml @ 100 mls/hr Q12 IVPB Last administered on 01/11/19 09:04; Admin Dose 100 MLS/HR; Start 01/07/19 at 21:00 Collagenase (Santyl) 1 applic BID TOP Last administered on 01/11/19 09:04; Admin Dose 1 APPLIC; Start 01/07/19 at 21:00 ARNULFO RENDON January 11, 2019 10:12
[2019-01-11] MEDS: NYSTATIN 30 GM POWDER BTL TOP SCH ×2 (12:41→20:48)
--- NOTE | 2019-01-11 14:05 | PN ---
Date/Time of Note Date/Time of Note DATE: 01/11/19 TIME: 14:04 Assessment/Plan Lines/Catheters IV C[facility]ter Type (from [facility]): PICC Line Schaeffer in Place (from Nrs): No Assessment/Plan Chief Complaint/Hosp Course 1. Sacral wound: + Wound cultures; status post repeat debridement 01/07/2019; bone pathology noted; soft bone noted during debridement> + osteo Sacral coccyx ulcer biopsy:: fragments of bone with overlying cartilage showing bone necrosis and acute osteomyelitis. -cont antibiotics per ID -Repeat debridement as needed > can follow with Dr. Nation at wound care clinic -Continue local care> same tx -frequent turning and off-loading -low air loss mattress -vitamin c -short term zinc -optimize nutrition -dc ok from surgical standpoint -repeat wound cx sent> follow 2. Bacteremia: Repeat blood culture: NG 3.Septic right knee joint status post I&D: -Per Ortho 4. Spine disease: Status post spinal surgeries -Supportive 5.UTI: -abx per sensitivity -frequent bladder emptying/cath care 6. Osteoarthritis: -Medical management Thank you. Patient seen and examined in collaboration with Dr. Fernandez Nation Subjective 24 Hr Interval Summary No fevers, chills, sob, congested cough, cp, palpitations, ruano, dizziness, n/v/d/dysuria, excessive wound drainage/odor. Exam/Review of Systems Vital Signs Vitals Vital Signs Date Temp Pulse Resp B/P (MAP) Pulse Ox O2 O2 Flow FiO2 Time Delivery Rate 01/11/19 97.8 78 18 120/64 90 Room Air 14:19 (82) Intake and Output 01/10/19 01/10/19 01/11/19 1515:00 23:00 07:00 IntakeIntake Total 450 ml 1110 ml 240 ml BalanceBalance 450 ml 1110 ml 240 ml Exam Free Text/Dictation Constitutional: alert, oriented Psych: nl mood/affect; No anxiety Head: normocephalic, atraumatic Eyes: nl conjunctiva, EOMI, nl lids, nl sclera ENMT: nl external ears & nose, nl lips & teeth, nl nasal mucosa & septum, mucosa pink and moist Neck: supple, non-tender; No jvd Respiratory: normal air movement; No congested cough Cardiovascular: regular rate and rhythm, nl pulses; No edema Gastrointestinal: soft, non-tender; No distended Genitourinary - Female: nl external genitalia Musculoskeletal: nl extremities to inspection; No nl gait and stance Extremities: normal pulses Neurological: nl mental status, nl speech, nl strength Skin: nl turgor, other (Sacrum: Minimal Slough, minimal drainage, no odor, minimal periwound erythema-improved) Lymph: nl lymph nodes Results Result Diagram: 01/10/19 1340 01/10/19 1340 YESSICA ALAMO NP January 11, 2019 14:05
[2019-01-11 14:19] VITALS: BP 120/64; PULSE 78; RESP 18
--- NOTE | 2019-01-11 15:34 | PN ---
Date/Time of Note Date/Time of Note DATE: 01/11/19 TIME: 15:33 Assessment/Plan VTE Prophylaxis Risk score (from Nsg)>0 risk: 5 SCD applied (from Nsg): Yes Pharmacological prophylaxis: heparin Lines/Catheters IV Catheter Type (from Nrsg): PICC Line Central line still needed: Yes Urinary Cath still in place: No Assessment/Plan Hospital Course 1. Sepsis secondary secondary to decubitus ulcers and/or PICC line infection - Repeat sacral wound cultures continue to show Proteus and VRE -Recent blood cultures are negative - ID on board and appreciate recommendations. There were concerns for line infection but blood cultures are currently negative -Continue antibiotics 2. Septic R knee joint s/p I&D on 12/05/18- resolved - remains stable and incision site clean and dry - Continues to work with PT. - Ortho on board and recommendations appreciated. Continue IV antibiotics until 01/14 - pain control 3. Left leg muscle spasm - Robaxin TID - replacing K 4. Sacral wound - repeat cultures continue to show VRE and Proteus -Previous hospitalist discussed with patient and son importance of airloss bed to prevent further breakdown of wound, was refused, using waffle cushion when in bedside chair -Wound care had recommending surgical consultation for debridement, consultation with Dr. Nation appreciated and patient is status post debridement -Bone biopsy shows necrosis, negative for malignancy 5. Chronic spinal disease - h/o significant stenosis of her spine. Lumbar spine and thoracic spine CT show signs of stenosis though no acute fractures. - continue lidocaine patch which was increased to 3 patches due to significant back pain, patient now stating that she would like to go back to only 1 patch -Patient is not interested in oral or IV narcotics 6. osteoarthritis - pain control 7. urinary tract infection- treated - Cultures grew Ecoli and lactobacillus - asymptomatic 8. Strep Bacteremia - continue current antibiotics - repeat cultures negative 9. Mechanical fall 10. Disposition - CM on board for SNF placement Result Diagram: 01/10/19 1340 01/10/19 1340 Subjective 24 Hr Interval Summary Free Text/Dictation No change to clinical status Awaiting placement Exam/Review of Systems Exam Vitals Vital Signs Date Temp Pulse Resp B/P (MAP) Pulse Ox O2 O2 Flow FiO2 Time Delivery Rate 01/11/19 97.8 78 18 120/64 90 Room Air 14:19 (82) Intake and Output 01/10/19 01/10/19 01/11/19 1515:00 23:00 07:00 IntakeIntake Total 450 ml 1110 ml 240 ml BalanceBalance 450 ml 1110 ml 240 ml Medications Medication Current Medications Albuterol (Ventolin Hfa) 2 puff Q4H PRN INH WHEEZING AND SOB; Start 12/01/18 at 21:00; Status Hold Ascorbic Acid (Vitamin C) 500 mg BID PO Last administered on 01/11/19 09:02; Admin Dose 500 MG; Start 12/01/18 at 21:00 Bupropion HCl (Wellbutrin Xl) 300 mg DAILY PO Last administered on 01/11/19 09:03; Admin Dose 300 MG; Start 12/02/18 at 09:00 Cholecalciferol (Vitamin D) 1,000 unit DAILY PO Last administered on 01/11/19 09:03; Admin Dose 1,000 UNIT; Start 12/02/18 at 09:00 Diclofenac Sodium (Voltaren 1% Gel) 2 gm TID PRN TP PAIN; Start 12/01/18 at 21:00 Levothyroxine Sodium (Synthroid) 100 mcg BEFORE BREAKFAST PO Last administered on 01/11/19 05:30; Admin Dose 100 MCG; Start 12/02/18 at 07:00 Lisinopril (Zestril) 5 mg DAILY PO Last administered on 01/11/19 09:04; Admin Dose 5 MG; Start 12/02/18 at 09:00 Multivitamins Therapeutic (Theragran) 1 tab DAILY PO Last administered on 01/11/19 09:02; Admin Dose 1 TAB; Start 12/02/18 at 09:00 Polyethylene Glycol (Miralax) 17 gm DAILY PO Last administered on 12/29/18 08:33; Admin Dose 17 GM; Start 12/02/18 at 09:00 Senna (Senokot) 1 tab BID PO Last administered on 12/29/18 20:32; Admin Dose 1 TAB; Start 12/01/18 at 21:00 Vitamin B Complex/ Vitamin C (Berocca) 1 cap DAILY PO Last administered on 01/11/19 09:03; Admin Dose 1 CAP; Start 12/02/18 at 09:00 Fish Oil (Fish Oil) 1,000 mg DAILY PO Last administered on 01/11/19 09:03; Admin Dose 1,000 MG; Start 12/02/18 at 09:00 Docusate Sodium (Colace) 100 mg Q12H PRN PO .CONSTIPATION; Start 12/01/18 at 22:00 Bisacodyl (Dulcolax) 5 mg DAILY PRN PO .CONSTIPATION; Start 12/01/18 at 22:00 Lidocaine (Xylocaine 1% (Mpf)) 30 ml ONCE PRN INJ aspiration ; Start 12/04/18 at 17:30 IV Flush (NS 3 ml) 3 ml PER PROTOCOL IV ; Start 12/05/18 at 21:30 Oxycodone HCl (Roxicodone) 15 mg Q4H PRN PO .PAIN Last administered on 12/30/18 13:42; Admin Dose 5 MG; Start 12/05/18 at 21:30 Oxycodone HCl (Roxicodone) 10 mg Q4H PRN PO .PAIN Last administered on 01/06/19 02:56; Admin Dose 10 MG; Start 12/05/18 at 21:30 Oxycodone HCl (Roxicodone) 5 mg Q4H PRN PO .PAIN Last administered on 01/11/19 01:26; Admin Dose 5 MG; Start 12/05/18 at 21:30 Hydromorphone HCl (Dilaudid) 1 mg Q3H PRN IV .BREAKTHROUGH PAIN Last administered on 12/06/18 06:58; Admin Dose 1 MG; Start 12/05/18 at 21:30 Ondansetron HCl (Zofran Inj) 4 mg Q4H PRN IV NAUSEA/VOMITING; Start 12/06/18 at 21:30 Pantoprazole (Protonix Tab) 40 mg DAILY@06 PO Last administered on 01/11/19 05:30; Admin Dose 40 MG; Start 12/07/18 at 06:00 Simethicone (Mylicon) 80 mg TID PRN PO .GAS; Start 12/05/18 at 21:30 Senna/Docusate Sodium (Senokot-S) 2 tab BID PRN PO .CONSTIPATION Last administered on 12/06/18 08:54; Admin Dose 2 TAB; Start 12/05/18 at 21:30 Magnesium Hydroxide (Milk Of Mag) 30 ml HS PRN PO .CONSTIPATION; Start 12/05/18 at 21:30 Bisacodyl (Dulcolax Supp) 10 mg DAILY PRN [place] .CONSTIPATION; Start 12/05/18 at 21:30 Sodium Biphosphate/ Sodium Phosphate (Fleet Enema) 133 ml DAILY PRN [place] .CONSTIPATION; Start 12/05/18 at 21:30 Diphenhydramine HCl (Benadryl) 25 mg Q4H PRN IV .ITCHING; Start 12/05/18 at 21:30 Naloxone HCl (Narcan) 0.2 mg Q2M PRN IV .RESP RATE; Start 12/05/18 at 21:30 Bethanechol Chloride (Urecholine) 25 mg URINARY CATH D/C PRN PO UNABLE TO VOID; Start 12/05/18 at 21:30 Aspirin (Halfprin) 81 mg BID PO Last administered on 01/11/19 09:03; Admin Dose 81 MG; Start 12/06/18 at 09:00 Nystatin (Nystatin Powder) 1 applic BID TOP Last administered on 01/11/19 12:41; Admin Dose 1 APPLIC; Start 12/12/18 at 21:00 Albuterol (Proventil 0.083% (Neb)) 2.5 mg Q2H RESP THERAPY PRN HHN SHORTNESS OF BREATH; Start 12/15/18 at 12:00 Gabapentin (Neurontin) 300 mg TID PO Last administered on 01/11/19 12:41; Admin Dose 300 MG; Start 12/22/18 at 13:00 Methocarbamol (Robaxin) 750 mg TID PO Last administered on 01/11/19 12:41; Admin Dose 750 MG; Start 12/28/18 at 13:00 Linezolid (Zyvox) 600 mg BID PO Last administered on 01/11/19 09:03; Admin Dose 600 MG; Start 12/28/18 at 15:00 Acetaminophen (Tylenol Tab) 1,000 mg Q6 PRN PO pain Last administered on 01/05/19 00:17; Admin Dose 1,000 MG; Start 12/28/18 at 21:30 Alteplase, Recombinant (Cathflo (Activase)) 2 mg MAY REPEAT X1 PRN CATHETER IF CATHETER REMAINS OCCULUDED Last administered on 12/29/18at 16:53; Admin Dose 2 MG; Start 12/29/18 at 16:00 Lidocaine (Lidoderm) 1 patch DAILY TD Last administered on 01/11/19 09:02; Admin Dose 1 PATCH; Start 01/06/19 at 09:00 Sodium Hypochlorite (Dakins Diluted (40)) 1 applic BID TP Last administered on 01/11/19 09:10; Admin Dose 1 APPLIC; Start 01/06/19 at 12:03 Cefepime HCl 50 ml @ 100 mls/hr Q12 IVPB Last administered on 01/11/19 09:04; Admin Dose 100 MLS/HR; Start 01/07/19 at 21:00 Collagenase (Santyl) 1 applic BID TOP Last administered on 01/11/19 09:04; Admin Dose 1 APPLIC; Start 01/07/19 at 21:00 BERT MITCHELL MD January 11, 2019 15:34
[2019-01-11 19:20] VITALS: BP 105/56; PULSE 83; RESP 18
[2019-01-12 05:07] VITALS: BP 120/56; PULSE 76; RESP 18
[2019-01-12] MEDS: LEVOTHYROXINE 100 MCG TAB PO SCH (06:15)
[2019-01-12] MEDS: PANTOPRAZOLE (EC) 40 MG TAB PO SCH (06:15)
[2019-01-12 07:43] VITALS: BP 128/60; PULSE 62; RESP 18
[2019-01-12] MEDS: SENNA TAB PO SCH ×2 (09:00→21:00)
[2019-01-12] MEDS: POLYETHYLENE GLYCOL 17 GM PACKET PO SCH (09:00)
[2019-01-12] MEDS: CEFEPIME 1GM/50 ML (PMX) 50 ML IVPB SCH ×2 (09:53→21:01)
[2019-01-12] MEDS: COLLAGENASE 5 GM (UD JAR) TOP SCH ×2 (09:56→21:02)
[2019-01-12] MEDS: LIDOCAINE 5% PATCH TD SCH (09:56)
[2019-01-12] MEDS: NYSTATIN 30 GM POWDER BTL TOP SCH ×2 (09:57→21:00)
[2019-01-12] MEDS: BALSAM PERU/CASTOR OIL 60 GM TUBE TOP SCH ×2 (09:57→21:04)
[2019-01-12] MEDS: DAKINS 0.0125%(1/40) 473 ML SOLUTION TP SCH ×2 (09:57→21:04)
[2019-01-12] MEDS: BUPROPION (XL) 150 MG TAB PO SCH (09:59)
[2019-01-12] MEDS: LISINOPRIL 5 MG TAB PO SCH (10:00)
[2019-01-12] MEDS: METHOCARBAMOL 750 MG TAB PO SCH ×3 (10:00→21:02)
[2019-01-12] MEDS: ASCORBIC ACID 500 MG TAB PO SCH ×2 (10:00→21:02)
[2019-01-12] MEDS: GABAPENTIN 300 MG CAP PO SCH ×3 (10:00→21:02)
[2019-01-12] MEDS: ZYVOX 600 MG TAB PO SCH ×2 (10:00→21:02)
[2019-01-12] MEDS: CHOLECALCIFEROL 1,000 UNIT TAB PO SCH (10:00)
[2019-01-12] MEDS: FISH OIL 1,000 MG CAP PO SCH (10:00)
[2019-01-12] MEDS: MULTIVITAMINS THERAPEUTIC TAB PO SCH (10:01)
[2019-01-12] MEDS: ASPIRIN (EC) 81 MG TAB PO SCH ×2 (10:01→21:02)
[2019-01-12] MEDS: VITAMIN B COMPLEX/VIT C CAP PO SCH (10:04)
--- NOTE | 2019-01-12 11:24 | CONS ---
Consultation Date/Type/Reason Admit Date/Time Dec 01, 2018 at 19:24 Initial Consult Date SUBJECTIVE: Pt is awake, alert, afebrile. VS: stable T: 98.0 LABS: reviewed. Antimicrobials: cefepime and Zyvox Microbiology: Blood culture on admission grew strep, urine culture grew E. coli, MRSA swab negative, repeat blood cultures negative. Sacral wound cx + MRSA/Proteus/Strep Sacral wound culture: Sacral wound cx + VRE/Proteus/Strep 2D echo revealed no vegetations Physical examination: GEN: This is well-developed well-nourished elderly woman, who is alert in no distress. HENT: Head atraumatic normocephalic, neck is supple. PULM: Chest rise symmetrical breath sounds clear. Heart: S1-S2. Abdomen: soft, bowel tones present. Extremities with right knee erythema and swelling Assessment: 1. 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 Status post sepsis, present on admission 3. Streptococcal bacteremia 2 to #3 4. 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 S/P Urinary tract infection 6. History of left total knee replacement 7. History of multilevel discectomy and posterior fusion from L1-L3, please see CT in the chart Plan: Patient remains stable. Continue on current abx for 6 weeks to treat OM. Ok changing Zyvox to Daptomycin. Continue wound care per surgical rec-s and off loading. Requesting Provider: TERESA COSBY Date/Time of Note DATE: 01/12/19 TIME: 11:23 Exam/Review of Systems Exam Vitals Vital Signs Date Temp Pulse Resp B/P (MAP) Pulse Ox O2 O2 Flow FiO2 Time Delivery Rate 01/12/19 98.0 62 18 128/60 98 Room Air 07:43 (82) Intake and Output 01/11/19 01/11/19 01/12/19 1515:00 23:00 07:00 IntakeIntake Total 810 ml 470 ml 750 ml BalanceBalance 810 ml 470 ml 750 ml Results Result Diagram: 01/10/19 1340 01/10/19 1340 Medications Medication Current Medications Albuterol (Ventolin Hfa) 2 puff Q4H PRN INH WHEEZING AND SOB; Start 12/01/18 at 21:00; Status Hold Ascorbic Acid (Vitamin C) 500 mg BID PO Last administered on 01/12/19 10:00; Admin Dose 500 MG; Start 12/01/18 at 21:00 Bupropion HCl (Wellbutrin Xl) 300 mg DAILY PO Last administered on 01/12/19 09:59; Admin Dose 300 MG; Start 12/02/18 at 09:00 Cholecalciferol (Vitamin D) 1,000 unit DAILY PO Last administered on 01/12/19 10:00; Admin Dose 1,000 UNIT; Start 12/02/18 at 09:00 Diclofenac Sodium (Voltaren 1% Gel) 2 gm TID PRN TP PAIN; Start 12/01/18 at 21:00 Levothyroxine Sodium (Synthroid) 100 mcg BEFORE BREAKFAST PO Last administered on 01/12/19 06:15; Admin Dose 100 MCG; Start 12/02/18 at 07:00 Lisinopril (Zestril) 5 mg DAILY PO Last administered on 01/12/19 10:00; Admin Dose 5 MG; Start 12/02/18 at 09:00 Multivitamins Therapeutic (Theragran) 1 tab DAILY PO Last administered on 01/12/19 10:01; Admin Dose 1 TAB; Start 12/02/18 at 09:00 Polyethylene Glycol (Miralax) 17 gm DAILY PO Last administered on 12/29/18 08:33; Admin Dose 17 GM; Start 12/02/18 at 09:00 Senna (Senokot) 1 tab BID PO Last administered on 01/11/19 20:49; Admin Dose 1 TAB; Start 12/01/18 at 21:00 Vitamin B Complex/ Vitamin C (Berocca) 1 cap DAILY PO Last administered on 01/12/19 10:04; Admin Dose 1 CAP; Start 12/02/18 at 09:00 Fish Oil (Fish Oil) 1,000 mg DAILY PO Last administered on 01/12/19 10:00; Admin Dose 1,000 MG; Start 12/02/18 at 09:00 Docusate Sodium (Colace) 100 mg Q12H PRN PO .CONSTIPATION; Start 12/01/18 at 22:00 Bisacodyl (Dulcolax) 5 mg DAILY PRN PO .CONSTIPATION; Start 12/01/18 at 22:00 Lidocaine (Xylocaine 1% (Mpf)) 30 ml ONCE PRN INJ aspiration ; Start 12/04/18 at 17:30 IV Flush (NS 3 ml) 3 ml PER PROTOCOL IV ; Start 12/05/18 at 21:30 Oxycodone HCl (Roxicodone) 15 mg Q4H PRN PO .PAIN Last administered on 12/30/18 13:42; Admin Dose 5 MG; Start 12/05/18 at 21:30 Oxycodone HCl (Roxicodone) 10 mg Q4H PRN PO .PAIN Last administered on 01/06/19 02:56; Admin Dose 10 MG; Start 12/05/18 at 21:30 Oxycodone HCl (Roxicodone) 5 mg Q4H PRN PO .PAIN Last administered on 01/11/19 15:41; Admin Dose 5 MG; Start 12/05/18 at 21:30 Hydromorphone HCl (Dilaudid) 1 mg Q3H PRN IV .BREAKTHROUGH PAIN Last administered on 12/06/18 06:58; Admin Dose 1 MG; Start 12/05/18 at 21:30 Ondansetron HCl (Zofran Inj) 4 mg Q4H PRN IV NAUSEA/VOMITING; Start 12/06/18 at 21:30 Pantoprazole (Protonix Tab) 40 mg DAILY@06 PO Last administered on 01/12/19 06:15; Admin Dose 40 MG; Start 12/07/18 at 06:00 Simethicone (Mylicon) 80 mg TID PRN PO .GAS; Start 12/05/18 at 21:30 Senna/Docusate Sodium (Senokot-S) 2 tab BID PRN PO .CONSTIPATION Last administered on 12/06/18 08:54; Admin Dose 2 TAB; Start 12/05/18 at 21:30 Magnesium Hydroxide (Milk Of Mag) 30 ml HS PRN PO .CONSTIPATION; Start 12/05/18 at 21:30 Bisacodyl (Dulcolax Supp) 10 mg DAILY PRN MD .CONSTIPATION; Start 12/05/18 at 21:30 Sodium Biphosphate/ Sodium Phosphate (Fleet Enema) 133 ml DAILY PRN MD .CONSTIPATION; Start 12/05/18 at 21:30 Diphenhydramine HCl (Benadryl) 25 mg Q4H PRN IV .ITCHING; Start 12/05/18 at 21:30 Naloxone HCl (Narcan) 0.2 mg Q2M PRN IV .RESP RATE; Start 12/05/18 at 21:30 Bethanechol Chloride (Urecholine) 25 mg URINARY CATH D/C PRN PO UNABLE TO VOID; Start 12/05/18 at 21:30 Aspirin (Halfprin) 81 mg BID PO Last administered on 01/12/19 10:01; Admin Dose 81 MG; Start 12/06/18 at 09:00 Nystatin (Nystatin Powder) 1 applic BID TOP Last administered on 01/12/19 09:57; Admin Dose 1 APPLIC; Start 12/12/18 at 21:00 Albuterol (Proventil 0.083% (Neb)) 2.5 mg Q2H RESP THERAPY PRN HHN SHORTNESS OF BREATH; Start 12/15/18 at 12:00 Gabapentin (Neurontin) 300 mg TID PO Last administered on 01/12/19 10:00; Admin Dose 300 MG; Start 12/22/18 at 13:00 Methocarbamol (Robaxin) 750 mg TID PO Last administered on 01/12/19 10:00; Admin Dose 750 MG; Start 12/28/18 at 13:00 Linezolid (Zyvox) 600 mg BID PO Last administered on 01/12/19 10:00; Admin Dose 600 MG; Start 12/28/18 at 15:00 Acetaminophen (Tylenol Tab) 1,000 mg Q6 PRN PO pain Last administered on 01/05/19 00:17; Admin Dose 1,000 MG; Start 12/28/18 at 21:30 Alteplase, Recombinant (Cathflo (Activase)) 2 mg MAY REPEAT X1 PRN CATHETER IF CATHETER REMAINS OCCULUDED Last administered on 12/29/18 16:53; Admin Dose 2 MG; Start 12/29/18 at 16:00 Lidocaine (Lidoderm) 1 patch DAILY TD Last administered on 01/12/19 09:56; Admin Dose 1 PATCH; Start 01/06/19 at 09:00 Sodium Hypochlorite (Dakins Diluted (40)) 1 applic BID TP Last administered on 01/12/19 09:57; Admin Dose 1 APPLIC; Start 01/06/19 at 12:03 Cefepime HCl 50 ml @ 100 mls/hr Q12 IVPB Last administered on 01/12/19at 09:53; Admin Dose 100 MLS/HR; Start 01/07/19 at 21:00 Collagenase (Santyl) 1 applic BID TOP Last administered on 01/12/19 09:56; Admin Dose 1 APPLIC; Start 01/07/19 at 21:00 ARNULFO ERNDON January 12, 2019 11:24
--- NOTE | 2019-01-12 15:27 | PN ---
Date/Time of Note Date/Time of Note DATE: 01/12/19 TIME: 15:24 Assessment/Plan Lines/Catheters IV Catheter Type (from Nrs): PICC Line Schaeffer in Place (from Nrs): No Assessment/Plan Chief Complaint/Hosp Course 1. Sacral wound: + Wound cultures; status post repeat debridement 01/07/2019; bone pathology noted; soft bone noted during debridement> + osteo; repeat wound cultures noted Sacral coccyx ulcer biopsy:: fragments of bone with overlying cartilage showing bone necrosis and acute osteomyelitis. -cont antibiotics per ID -Repeat debridement as needed > can follow with Dr. Nation at wound care clinic -Continue local care> same tx -frequent turning and off-loading -low air loss mattress -vitamin c -short term zinc -optimize nutrition -dc ok from surgical standpoint 2. Bacteremia: Repeat blood culture: NG 3.Septic right knee joint status post I&D: -Per Ortho 4. Spine disease: Status post spinal surgeries -Supportive 5.UTI: -abx per sensitivity -frequent bladder emptying/cath care 6. Osteoarthritis: -Medical management Thank you. Patient seen and examined in collaboration with Dr. Fernandez Nation Subjective 24 Hr Interval Summary No fevers, chills, sob, congested cough, cp, palpitations, ruano, dizziness, nausea, vomiting, diarrhea, dysuria. Repeat cultures noted Exam/Review of Systems Vital Signs Vitals Vital Signs Date Temp Pulse Resp B/P (MAP) Pulse Ox O2 O2 Flow FiO2 Time Delivery Rate 01/12/19 98.0 62 18 128/60 98 Room Air 07:43 (82) Intake and Output 01/11/19 01/11/19 01/12/19 1515:00 23:00 07:00 IntakeIntake Total 810 ml 470 ml 750 ml BalanceBalance 810 ml 470 ml 750 ml Exam Free Text/Dictation Constitutional: alert, oriented Psych: nl mood/affect; No anxiety Head: normocephalic, atraumatic Eyes: nl conjunctiva, EOMI, nl lids, nl sclera ENMT: nl external ears & nose, nl lips & teeth, nl nasal mucosa & septum, mucosa pink and moist Neck: supple, non-tender; No jvd Respiratory: normal air movement; No congested cough Cardiovascular: regular rate and rhythm, nl pulses; No edema Gastrointestinal: soft, non-tender; No distended Genitourinary - Female: nl external genitalia Musculoskeletal: nl extremities to inspection; No nl gait and stance Extremities: normal pulses Neurological: nl mental status, nl speech, nl strength Skin: nl turgor, other (Sacrum: Minimal Slough, minimal drainage, minimal odor, minimal periwound erythema-improved) Lymph: nl lymph nodes Results Result Diagram: 01/10/19 1340 01/10/19 1340 YESSICA ALAMO NP January 12, 2019 15:27
[2019-01-12 17:06] VITALS: BP 101/59; PULSE 85; RESP 18
[2019-01-12 19:36] VITALS: BP 99/57; PULSE 88; RESP 18
[2019-01-13] MEDS: oxyCODONE 5 MG TAB PO PRN ×2 (01:50→10:07)
[2019-01-13 01:57] VITALS: BP 117/59; PULSE 80; RESP 18
[2019-01-13] MEDS: PANTOPRAZOLE (EC) 40 MG TAB PO SCH (06:11)
[2019-01-13] MEDS: LEVOTHYROXINE 100 MCG TAB PO SCH (06:11)
[2019-01-13 07:38] VITALS: BP 118/59; PULSE 70; RESP 18
[2019-01-13] MEDS: SENNA TAB PO SCH ×2 (10:01→21:34)
[2019-01-13] MEDS: POLYETHYLENE GLYCOL 17 GM PACKET PO SCH (10:01)
[2019-01-13] MEDS: ASCORBIC ACID 500 MG TAB PO SCH ×2 (10:02→21:34)
[2019-01-13] MEDS: FISH OIL 1,000 MG CAP PO SCH (10:02)
[2019-01-13] MEDS: GABAPENTIN 300 MG CAP PO SCH ×3 (10:02→21:34)
[2019-01-13] MEDS: MULTIVITAMINS THERAPEUTIC TAB PO SCH (10:02)
[2019-01-13] MEDS: ASPIRIN (EC) 81 MG TAB PO SCH ×2 (10:02→21:34)
[2019-01-13] MEDS: ZYVOX 600 MG TAB PO SCH ×2 (10:02→21:34)
[2019-01-13] MEDS: METHOCARBAMOL 750 MG TAB PO SCH ×3 (10:02→21:34)
[2019-01-13] MEDS: LISINOPRIL 5 MG TAB PO SCH (10:02)
[2019-01-13] MEDS: VITAMIN B COMPLEX/VIT C CAP PO SCH (10:03)
[2019-01-13] MEDS: CHOLECALCIFEROL 1,000 UNIT TAB PO SCH (10:03)
[2019-01-13] MEDS: BUPROPION (XL) 150 MG TAB PO SCH (10:03)
[2019-01-13] MEDS: LIDOCAINE 5% PATCH TD SCH (10:05)
[2019-01-13] MEDS: COLLAGENASE 5 GM (UD JAR) TOP SCH ×2 (10:05→21:35)
[2019-01-13] MEDS: NYSTATIN 30 GM POWDER BTL TOP SCH ×2 (10:06→21:39)
[2019-01-13] MEDS: BALSAM PERU/CASTOR OIL 60 GM TUBE TOP SCH ×2 (10:06→21:39)
[2019-01-13] MEDS: DAKINS 0.0125%(1/40) 473 ML SOLUTION TP SCH ×2 (10:06→21:39)
[2019-01-13] MEDS: CEFEPIME 1GM/50 ML (PMX) 50 ML IVPB SCH ×2 (10:09→21:35)
--- NOTE | 2019-01-13 10:46 | PN ---
Date/Time of Note Date/Time of Note DATE: 01/13/19 TIME: 10:45 Assessment/Plan Lines/Catheters IV Catheter Type (from [facility]): PICC Line Schaeffer in Place (from [facility]): No Assessment/Plan Chief Complaint/Hosp Course 1. Sacral wound: + Wound cultures; status post repeat debridement 01/07/2019; bone pathology noted; soft bone noted during debridement> + osteo; repeat wound cultures noted Sacral coccyx ulcer biopsy:: fragments of bone with overlying cartilage showing bone necrosis and acute osteomyelitis. -cont antibiotics per ID -Repeat debridement as needed > can follow with Dr. Mcmanus at wound care clinic -Continue local care> same tx -frequent turning and off-loading -low air loss mattress -vitamin c -short term zinc -optimize nutrition -dc ok from surgical standpoint 2. Bacteremia: Repeat blood culture: NG 3.Septic right knee joint status post I&D: -Per Ortho 4. Spine disease: Status post spinal surgeries -Supportive 5.UTI: -abx per sensitivity -frequent bladder emptying/cath care 6. Osteoarthritis: -Medical management Thank you, Subjective 24 Hr Interval Summary No fevers, chills, sob, congested cough, cp, palpitations, ruano, dizziness, nausea, vomiting, diarrhea, dysuria. Exam/Review of Systems Vital Signs Vitals Vital Signs Date Temp Pulse Resp B/P (MAP) Pulse Ox O2 O2 Flow FiO2 Time Delivery Rate 01/13/19 98.0 70 18 118/59 92 Room Air 07:38 (78) Intake and Output 01/12/19 01/12/19 01/13/19 1515:00 23:00 07:00 IntakeIntake Total 680 ml 460 ml 840 ml OutputOutput Total 1 ml BalanceBalance 680 ml 459 ml 840 ml Exam Free Text/Dictation Constitutional: alert, oriented Psych: nl mood/affect; No anxiety Head: normocephalic, atraumatic Eyes: nl conjunctiva, EOMI, nl lids, nl sclera ENMT: nl external ears & nose, nl lips & teeth, nl nasal mucosa & septum, mucosa pink and moist Neck: supple, non-tender; No jvd Respiratory: normal air movement; No congested cough Cardiovascular: regular rate and rhythm, nl pulses; No edema Gastrointestinal: soft, non-tender; No distended Genitourinary - Female: nl external genitalia Musculoskeletal: nl extremities to inspection; No nl gait and stance Extremities: normal pulses Neurological: nl mental status, nl speech, nl strength Skin: nl turgor, other (Sacrum: Minimal Slough, minimal drainage, minimal odor, minimal periwound erythema-improved) Lymph: nl lymph nodes Results Result Diagram: 01/10/19 1340 01/10/19 1340 GABRIELA MCMANUS MD January 13, 2019 10:46
--- NOTE | 2019-01-13 13:52 | CONS ---
Assessment/Plan Assessment/Plan Hospital Course (Demo Recall) No acute events, looks comfortable Antimicrobials: Cefepime, Zyvox fluconazole Microbiology: Blood culture on admission grew strep, urine culture grew E. coli, MRSA swab negative, repeat blood cultures negative. Sacral wound cx + VRE/Proteus/Strep/Marita 2D echo revealed no vegetations Physical examination: This is well-developed well-nourished elderly woman who is alert in no distress. Head atraumatic normocephalic neck is supple. Chest rise symmetrical breath sounds clear. Heart: S1-S2. Abdomen soft, bowel tones present. Extremities wnl Assessment: 1. 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 Status post sepsis 3. S/p streptococcal bacteremia 2 to #4 4. 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 S/p urinary tract infection 6. History of left total knee replacement 7. History of multilevel discectomy and posterior fusion from L1-L3, please see CT in the chart Plan: Remains stable, continue on current abx for 6 weeks to treat OM, ok changing Zyvox to Daptomycin, wound care per surgical rec-s, continue off load. Consultation Date/Type/Reason Admit Date/Time Dec 01, 2018 at 19:24 Initial Consult Date Type of Consult id Requesting Provider: TERESA COSBY Date/Time of Note DATE: 01/13/19 TIME: 13:51 Exam/Review of Systems Exam Vitals Vital Signs Date Temp Pulse Resp B/P (MAP) Pulse Ox O2 O2 Flow FiO2 Time Delivery Rate 01/13/19 98.0 70 18 118/59 92 Room Air 07:38 (78) Intake and Output 01/12/19 01/12/19 01/13/19 1515:00 23:00 07:00 IntakeIntake Total 680 ml 460 ml 840 ml OutputOutput Total 1 ml BalanceBalance 680 ml 459 ml 840 ml Results Result Diagram: 01/10/19 1340 01/10/19 1340 Medications Medication Current Medications Albuterol (Ventolin Hfa) 2 puff Q4H PRN INH WHEEZING AND SOB; Start 12/01/18 at 21:00; Status Hold Ascorbic Acid (Vitamin C) 500 mg BID PO Last administered on 01/13/19at 10:02; Admin Dose 500 MG; Start 12/01/18 at 21:00 Bupropion HCl (Wellbutrin Xl) 300 mg DAILY PO Last administered on 01/13/19 10:03; Admin Dose 300 MG; Start 12/02/18 at 09:00 Cholecalciferol (Vitamin D) 1,000 unit DAILY PO Last administered on 01/13/19 10:03; Admin Dose 1,000 UNIT; Start 12/02/18 at 09:00 Diclofenac Sodium (Voltaren 1% Gel) 2 gm TID PRN TP PAIN; Start 12/01/18 at 21: 00 Levothyroxine Sodium (Synthroid) 100 mcg BEFORE BREAKFAST PO Last administered on 01/13/19 06:11; Admin Dose 100 MCG; Start 12/02/18 at 07:00 Lisinopril (Zestril) 5 mg DAILY PO Last administered on 01/13/19 10:02; Admin Dose 5 MG; Start 12/02/18 at 09:00 Multivitamins Therapeutic (Theragran) 1 tab DAILY PO Last administered on 01/13/19 10:02; Admin Dose 1 TAB; Start 12/02/18 at 09:00 Polyethylene Glycol (Miralax) 17 gm DAILY PO Last administered on 12/29/18 08:33; Admin Dose 17 GM; Start 12/02/18 at 09:00 Senna (Senokot) 1 tab BID PO Last administered on 01/11/19 20:49; Admin Dose 1 TAB; Start 12/01/18 at 21:00 Vitamin B Complex/ Vitamin C (Berocca) 1 cap DAILY PO Last administered on 01/13/19 10:03; Admin Dose 1 CAP; Start 12/02/18 at 09:00 Fish Oil (Fish Oil) 1,000 mg DAILY PO Last administered on 01/13/19 10:02; Admin Dose 1,000 MG; Start 12/02/18 at 09:00 Docusate Sodium (Colace) 100 mg Q12H PRN PO .CONSTIPATION; Start 12/01/18 at 22:00 Bisacodyl (Dulcolax) 5 mg DAILY PRN PO .CONSTIPATION; Start 12/01/18 at 22:00 Lidocaine (Xylocaine 1% (Mpf)) 30 ml ONCE PRN INJ aspiration ; Start 12/04/18 at 17:30 IV Flush (NS 3 ml) 3 ml PER PROTOCOL IV ; Start 12/05/18 at 21:30 Oxycodone HCl (Roxicodone) 15 mg Q4H PRN PO .PAIN Last administered on 12/30/18 13:42; Admin Dose 5 MG; Start 12/05/18 at 21:30 Oxycodone HCl (Roxicodone) 10 mg Q4H PRN PO .PAIN Last administered on 01/06/19 02:56; Admin Dose 10 MG; Start 12/05/18 at 21:30 Oxycodone HCl (Roxicodone) 5 mg Q4H PRN PO .PAIN Last administered on 01/13/19 10:07; Admin Dose 5 MG; Start 12/05/18 at 21:30 Hydromorphone HCl (Dilaudid) 1 mg Q3H PRN IV .BREAKTHROUGH PAIN Last administered on 12/06/18 06:58; Admin Dose 1 MG; Start 12/05/18 at 21:30 Ondansetron HCl (Zofran Inj) 4 mg Q4H PRN IV NAUSEA/VOMITING; Start 12/06/18 at 21:30 Pantoprazole (Protonix Tab) 40 mg DAILY@06 PO Last administered on 01/13/19 06: 11; Admin Dose 40 MG; Start 12/07/18 at 06:00 Simethicone (Mylicon) 80 mg TID PRN PO .GAS; Start 12/05/18 at 21:30 Senna/Docusate Sodium (Senokot-S) 2 tab BID PRN PO .CONSTIPATION Last administered on 12/06/18 08:54; Admin Dose 2 TAB; Start 12/05/18 at 21:30 Magnesium Hydroxide (Milk Of Mag) 30 ml HS PRN PO .CONSTIPATION; Start 12/05/18 at 21:30 Bisacodyl (Dulcolax Supp) 10 mg DAILY PRN [place] .CONSTIPATION; Start 12/05/18 at 21:30 Sodium Biphosphate/ Sodium Phosphate (Fleet Enema) 133 ml DAILY PRN [place] .CONSTIPATION; Start 12/05/18 at 21:30 Diphenhydramine HCl (Benadryl) 25 mg Q4H PRN IV .ITCHING; Start 12/05/18 at 21:30 Naloxone HCl (Narcan) 0.2 mg Q2M PRN IV .RESP RATE; Start 12/05/18 at 21:30 Bethanechol Chloride (Urecholine) 25 mg URINARY CATH D/C PRN PO UNABLE TO VOID; Start 12/05/18 at 21:30 Aspirin (Halfprin) 81 mg BID PO Last administered on 01/13/19 10:02; Admin Dose 81 MG; Start 12/06/18 at 09:00 Nystatin (Nystatin Powder) 1 applic BID TOP Last administered on 01/13/19 10 :06; Admin Dose 1 APPLIC; Start 12/12/18 at 21:00 Albuterol (Proventil 0.083% (Neb)) 2.5 mg Q2H RESP THERAPY PRN HHN SHORTNESS OF BREATH; Start 12/15/18 at 12:00 Gabapentin (Neurontin) 300 mg TID PO Last administered on 01/13/19 10:02; Admin Dose 300 MG; Start 12/22/18 at 13:00 Methocarbamol (Robaxin) 750 mg TID PO Last administered on 01/13/19 10:02; Admin Dose 750 MG; Start 12/28/18 at 13:00 Linezolid (Zyvox) 600 mg BID PO Last administered on 01/13/19 10:02; Admin Dose 600 MG; Start 12/28/18 at 15:00 Acetaminophen (Tylenol Tab) 1,000 mg Q6 PRN PO pain Last administered on 01/05/19 00:17; Admin Dose 1,000 MG; Start 12/28/18 at 21:30 Alteplase, Recombinant (Cathflo (Activase)) 2 mg MAY REPEAT X1 PRN CATHETER IF CATHETER REMAINS OCCULUDED Last administered on 12/29/18 16:53; Admin Dose 2 MG; Start 12/29/18 at 16:00 Lidocaine (Lidoderm) 1 patch DAILY TD Last administered on 01/13/19 10:05; Admin Dose 1 PATCH; Start 01/06/19 at 09:00 Sodium Hypochlorite (Dakins Diluted (40)) 1 applic BID TP Last administered on 01/13/19 10:06; Admin Dose 1 APPLIC; Start 01/06/19 at 12:03 Cefepime HCl 50 ml @ 100 mls/hr Q12 IVPB Last administered on 01/13/19at 10:09; Admin Dose 100 MLS/HR; Start 01/07/19 at 21:00 Collagenase (Santyl) 1 applic BID TOP Last administered on 01/13/19at 10:05; Ad min Dose 1 APPLIC; Start 01/07/19 at 21:00 Fluconazole (Diflucan) 100 mg DAILY PO ; Start 01/13/19 at 11:30 OZZIE SOLOMON NP January 13, 2019 13:52
[2019-01-13 14:32] VITALS: BP 104/51; PULSE 86; RESP 18
[2019-01-13] MEDS: FLUCONAZOLE 100 MG TAB PO SCH (14:36)
--- NOTE | 2019-01-13 15:13 | PN ---
Date/Time of Note Date/Time of Note DATE: 01/13/19 TIME: 15:12 Assessment/Plan VTE Prophylaxis [place] [facility] [place]: 5 [place] [facility] [place] Yes Pharmacological prophylaxis: NA/contraindicated Pharm contraindication: low risk/ambulating Lines/Catheters Urinary Cath still in place: No Assessment/Plan Hospital Course 1. Sepsis secondary secondary to decubitus ulcers and/or PICC line infection - Repeat sacral wound cultures continue to show Proteus and VRE -Recent blood cultures are negative - ID on board and appreciate recommendations. There were concerns for line infection but blood cultures are currently negative -Continue antibiotics 2. Septic R knee joint s/p I&D on 12/05/18- resolved - remains stable and incision site clean and dry - Continues to work with PT. - Ortho on board and recommendations appreciated. Continue IV antibiotics until 01/14 - pain control 3. Left leg muscle spasm - Robaxin TID - replacing K 4. Sacral wound - repeat cultures continue to show VRE and Proteus -Previous hospitalist discussed with patient and son importance of airloss bed to prevent further breakdown of wound, was refused, using waffle cushion when in bedside chair -Wound care had recommending surgical consultation for debridement, consultation with Dr. Nation appreciated and patient is status post debridement -Bone biopsy shows necrosis, negative for malignancy 5. Chronic spinal disease - h/o significant stenosis of her spine. Lumbar spine and thoracic spine CT show signs of stenosis though no acute fractures. - continue lidocaine patch which was increased to 3 patches due to significant back pain, patient now stating that she would like to go back to only 1 patch -Patient is not interested in oral or IV narcotics 6. osteoarthritis - pain control 7. urinary tract infection- treated - Cultures grew Ecoli and lactobacillus - asymptomatic 8. Strep Bacteremia - continue current antibiotics - repeat cultures negative 9. Mechanical fall 10. Disposition - CM on board for SNF placement Result Diagram: 01/10/19 1340 01/10/19 1340 Subjective 24 Hr Interval Summary Constitutional: no complaints Exam/Review of Systems Exam Vitals Vital Signs Date Temp Pulse Resp B/P (MAP) Pulse Ox O2 O2 Flow FiO2 Time Delivery Rate 01/13/19 98.2 86 18 104/51 90 Room Air 14:32 (68) Intake and Output 01/12/19 01/12/19 01/13/19 1515:00 23:00 07:00 IntakeIntake Total 680 ml 460 ml 840 ml OutputOutput Total 1 ml BalanceBalance 680 ml 459 ml 840 ml Constitutional: alert, oriented Respiratory: clear to auscultation Cardiovascular: regular rate and rhythm Gastrointestinal: soft; No distended Musculoskeletal: nl extremities to inspection Medications Medication Current Medications Albuterol (Ventolin Hfa) 2 puff Q4H PRN INH WHEEZING AND SOB; Start 12/01/18 at 21:00; Status Hold Ascorbic Acid (Vitamin C) 500 mg BID PO Last administered on 01/13/19 10:02; Admin Dose 500 MG; Start 12/01/18 at 21:00 Bupropion HCl (Wellbutrin Xl) 300 mg DAILY PO Last administered on 01/13/19 10:03; Admin Dose 300 MG; Start 12/02/18 at 09:00 Cholecalciferol (Vitamin D) 1,000 unit DAILY PO Last administered on 01/13/19 10:03; Admin Dose 1,000 UNIT; Start 12/02/18 at 09:00 Diclofenac Sodium (Voltaren 1% Gel) 2 gm TID PRN TP PAIN; Start 12/01/18 at 21:00 Levothyroxine Sodium (Synthroid) 100 mcg BEFORE BREAKFAST PO Last administered on 01/13/19 06:11; Admin Dose 100 MCG; Start 12/02/18 at 07:00 Lisinopril (Zestril) 5 mg DAILY PO Last administered on 01/13/19 10:02; Admin Dose 5 MG; Start 12/02/18 at 09:00 Multivitamins Therapeutic (Theragran) 1 tab DAILY PO Last administered on 01/13/19 10:02; Admin Dose 1 TAB; Start 12/02/18 at 09:00 Polyethylene Glycol (Miralax) 17 gm DAILY PO Last administered on 12/29/18 08:33; Admin Dose 17 GM; Start 12/02/18 at 09:00 Senna (Senokot) 1 tab BID PO Last administered on 01/11/19 20:49; Admin Dose 1 TAB; Start 12/01/18 at 21:00 Vitamin B Complex/ Vitamin C (Berocca) 1 cap DAILY PO Last administered on 01/13/19 10:03; Admin Dose 1 CAP; Start 12/02/18 at 09:00 Fish Oil (Fish Oil) 1,000 mg DAILY PO Last administered on 01/13/19 10:02; Admin Dose 1,000 MG; Start 12/02/18 at 09:00 Docusate Sodium (Colace) 100 mg Q12H PRN PO .CONSTIPATION; Start 12/01/18 at 22:00 Bisacodyl (Dulcolax) 5 mg DAILY PRN PO .CONSTIPATION; Start 12/01/18 at 22:00 Lidocaine (Xylocaine 1% (Mpf)) 30 ml ONCE PRN INJ aspiration ; Start 12/04/18 at 17:30 IV Flush (NS 3 ml) 3 ml PER PROTOCOL IV ; Start 12/05/18 at 21:30 Oxycodone HCl (Roxicodone) 15 mg Q4H PRN PO .PAIN Last administered on 12/30/18 13:42; Admin Dose 5 MG; Start 12/05/18 at 21:30 Oxycodone HCl (Roxicodone) 10 mg Q4H PRN PO .PAIN Last administered on 01/06/19 02:56; Admin Dose 10 MG; Start 12/05/18 at 21:30 Oxycodone HCl (Roxicodone) 5 mg Q4H PRN PO .PAIN Last administered on 01/13/19 10:07; Admin Dose 5 MG; Start 12/05/18 at 21:30 Hydromorphone HCl (Dilaudid) 1 mg Q3H PRN IV .BREAKTHROUGH PAIN Last administered on 12/06/18 06:58; Admin Dose 1 MG; Start 12/05/18 at 21:30 Ondansetron HCl (Zofran Inj) 4 mg Q4H PRN IV NAUSEA/VOMITING; Start 12/06/18 at 21:30 Pantoprazole (Protonix Tab) 40 mg DAILY@06 PO Last administered on 01/13/19 06:11; Admin Dose 40 MG; Start 12/07/18 at 06:00 Simethicone (Mylicon) 80 mg TID PRN PO .GAS; Start 12/05/18 at 21:30 Senna/Docusate Sodium (Senokot-S) 2 tab BID PRN PO .CONSTIPATION Last administered on 12/06/18 08:54; Admin Dose 2 TAB; Start 12/05/18 at 21:30 Magnesium Hydroxide (Milk Of Mag) 30 ml HS PRN PO .CONSTIPATION; Start 12/05/18 at 21:30 Bisacodyl (Dulcolax Supp) 10 mg DAILY PRN [place] .CONSTIPATION; Start 12/05/18 at 21:30 Sodium Biphosphate/ Sodium Phosphate (Fleet Enema) 133 ml DAILY PRN [place] .CONSTIPATION; Start 12/05/18 at 21:30 Diphenhydramine HCl (Benadryl) 25 mg Q4H PRN IV .ITCHING; Start 12/05/18 at 21:30 Naloxone HCl (Narcan) 0.2 mg Q2M PRN IV .RESP RATE; Start 12/05/18 at 21:30 Bethanechol Chloride (Urecholine) 25 mg URINARY CATH D/C PRN PO UNABLE TO VOID; Start 12/05/18 at 21:30 Aspirin (Halfprin) 81 mg BID PO Last administered on 01/13/19 10:02; Admin Dose 81 MG; Start 12/06/18 at 09:00 Nystatin (Nystatin Powder) 1 applic BID TOP Last administered on 01/13/19 10: 06; Admin Dose 1 APPLIC; Start 12/12/18 at 21:00 Albuterol (Proventil 0.083% (Neb)) 2.5 mg Q2H RESP THERAPY PRN HHN SHORTNESS OF BREATH; Start 12/15/18 at 12:00 Gabapentin (Neurontin) 300 mg TID PO Last administered on 01/13/19 14:36; Admin Dose 300 MG; Start 12/22/18 at 13:00 Methocarbamol (Robaxin) 750 mg TID PO Last administered on 01/13/19 14:36; Admin Dose 750 MG; Start 12/28/18 at 13:00 Linezolid (Zyvox) 600 mg BID PO Last administered on 01/13/19 10:02; Admin Dose 600 MG; Start 12/28/18 at 15:00 Acetaminophen (Tylenol Tab) 1,000 mg Q6 PRN PO pain Last administered on 01/05/19 00:17; Admin Dose 1,000 MG; Start 12/28/18 at 21:30 Alteplase, Recombinant (Cathflo (Activase)) 2 mg MAY REPEAT X1 PRN CATHETER IF CATHETER REMAINS OCCULUDED Last administered on 12/29/18 16:53; Admin Dose 2 MG; Start 12/29/18 at 16:00 Lidocaine (Lidoderm) 1 patch DAILY TD Last administered on 01/13/19 10:05; Admin Dose 1 PATCH; Start 01/06/19 at 09:00 Sodium Hypochlorite (Dakins Diluted ()) 1 applic BID TP Last administered on 01/13/19 10:06; Admin Dose 1 APPLIC; Start 01/06/19 at 12:03 Cefepime HCl 50 ml @ 100 mls/hr Q12 IVPB Last administered on 01/13/19 10:09; Admin Dose 100 MLS/HR; Start 01/07/19 at 21:00 Collagenase (Santyl) 1 applic BID TOP Last administered on 01/13/19 10:05; Adm in Dose 1 APPLIC; Start 01/07/19 at 21:00 Fluconazole (Diflucan) 100 mg DAILY PO Last administered on 01/13/19 14:36; Admin Dose 100 MG; Start 01/13/19 at 11:30 TERESA COSBY January 13, 2019 15:12
[2019-01-13 19:25] VITALS: BP 103/52; PULSE 88; RESP 16
[2019-01-14 04:33] VITALS: BP 127/58; PULSE 67; RESP 16
[2019-01-14] MEDS: oxyCODONE 5 MG TAB PO PRN (04:43)
[2019-01-14] MEDS: LEVOTHYROXINE 100 MCG TAB PO SCH (06:50)
[2019-01-14] MEDS: PANTOPRAZOLE (EC) 40 MG TAB PO SCH (06:50)
[2019-01-14] MEDS: SENNA TAB PO SCH ×2 (09:00→20:49)
[2019-01-14] MEDS: POLYETHYLENE GLYCOL 17 GM PACKET PO SCH (09:00)
[2019-01-14 09:06] VITALS: BP 124/60; PULSE 75; RESP 18
[2019-01-14] MEDS: ASCORBIC ACID 500 MG TAB PO SCH ×2 (09:10→20:48)
[2019-01-14] MEDS: ZYVOX 600 MG TAB PO SCH ×2 (09:10→20:48)
[2019-01-14] MEDS: ASPIRIN (EC) 81 MG TAB PO SCH ×2 (09:10→20:48)
[2019-01-14] MEDS: METHOCARBAMOL 750 MG TAB PO SCH ×3 (09:10→20:47)
[2019-01-14] MEDS: MULTIVITAMINS THERAPEUTIC TAB PO SCH (09:10)
[2019-01-14] MEDS: VITAMIN B COMPLEX/VIT C CAP PO SCH (09:10)
[2019-01-14] MEDS: BUPROPION (XL) 150 MG TAB PO SCH (09:10)
[2019-01-14] MEDS: CHOLECALCIFEROL 1,000 UNIT TAB PO SCH (09:10)
[2019-01-14] MEDS: GABAPENTIN 300 MG CAP PO SCH ×3 (09:10→20:48)
[2019-01-14] MEDS: FISH OIL 1,000 MG CAP PO SCH (09:11)
[2019-01-14] MEDS: FLUCONAZOLE 100 MG TAB PO SCH (09:11)
[2019-01-14] MEDS: LISINOPRIL 5 MG TAB PO SCH (09:11)
[2019-01-14] MEDS: LIDOCAINE 5% PATCH TD SCH (09:12)
[2019-01-14] MEDS: DAKINS 0.0125%(1/40) 473 ML SOLUTION TP SCH ×2 (09:12→20:48)
[2019-01-14] MEDS: BALSAM PERU/CASTOR OIL 60 GM TUBE TOP SCH ×2 (09:12→20:48)
[2019-01-14] MEDS: COLLAGENASE 5 GM (UD JAR) TOP SCH ×2 (09:12→20:49)
[2019-01-14] MEDS: NYSTATIN 30 GM POWDER BTL TOP SCH ×2 (09:13→20:49)
[2019-01-14] MEDS: CEFEPIME 1GM/50 ML (PMX) 50 ML IVPB SCH ×2 (09:13→20:48)
--- NOTE | 2019-01-14 09:42 | PN ---
Date/Time of Note Date/Time of Note DATE: 01/14/19 TIME: 09:37 Assessment/Plan Lines/Catheters IV [facility]ter Type (from [facility] PICC Line Schaeffer in Place (from Nrs): No Assessment/Plan Chief Complaint/Hosp Course 1. Sacral wound: + Wound cultures; status post repeat debridement 01/07/2019; bone pathology noted; soft bone noted during debridement> + osteo; repeat wound cultures noted Sacral coccyx ulcer biopsy:: fragments of bone with overlying cartilage showing bone necrosis and acute osteomyelitis. -cont antibiotics per ID -Repeat debridement as needed > can follow with Dr. Nation at wound care clinic -Continue local care> same tx -frequent turning and off-loading -low air loss mattress -vitamin c -short term zinc -optimize nutrition -dc ok from surgical standpoint 2. Bacteremia: Repeat blood culture: NG 3.Septic right knee joint status post I&D: -Per Ortho 4. Spine disease: Status post spinal surgeries -Supportive 5.UTI: -abx per sensitivity -frequent bladder emptying/cath care 6. Osteoarthritis: -Medical management Thank you. Patient seen and examined in collaboration with Dr. Fernandez Nation Subjective 24 Hr Interval Summary No fevers, chills, sob, congested cough, cp, palpitations, ruano, dizziness, nausea, vomiting, diarrhea, dysuria. Moderate drainage from wounds. Exam/Review of Systems Vital Signs Vitals Vital Signs Date Temp Pulse Resp B/P (MAP) Pulse Ox O2 O2 Flow FiO2 Time Delivery Rate 01/14/19 98.3 75 18 124/60 96 Room Air 09:06 (81) Intake and Output 01/13/19 01/13/19 01/14/19 1414:59 22:59 06:59 IntakeIntake Total 690 ml 290 ml 480 ml BalanceBalance 690 ml 290 ml 480 ml Exam Free Text/Dictation Constitutional: alert, oriented Psych: nl mood/affect; No anxiety Head: normocephalic, atraumatic Eyes: nl conjunctiva, EOMI, nl lids, nl sclera ENMT: nl external ears & nose, nl lips & teeth, nl nasal mucosa & septum, mucosa pink and moist Neck: supple, non-tender; No jvd Respiratory: normal air movement; No congested cough Cardiovascular: regular rate and rhythm, nl pulses; No edema Gastrointestinal: soft, non-tender; No distended Genitourinary - Female: nl external genitalia Musculoskeletal: nl extremities to inspection; No nl gait and stance Extremities: normal pulses Neurological: nl mental status, nl speech, nl strength Skin: nl turgor, other (Sacrum: Minimal Slough, minimal drainage, no odor, minimal periwound erythema-improved) Lymph: nl lymph nodes Results Result Diagram: 01/10/19 1340 01/10/19 1340 YESSICA ALAMO NP January 14, 2019 09:42
--- NOTE | 2019-01-14 11:34 | CONS ---
Assessment/Plan Assessment/Plan Hospital Course (Demo Recall) All noted, no events over night Antimicrobials: Cefepime, Zyvox fluconazole Microbiology: Blood culture on admission grew strep, urine culture grew E. coli, MRSA swab negative, repeat blood cultures negative. Sacral wound cx + VRE/Proteus/Strep/Marita 2D echo revealed no vegetations Physical examination: This is well-developed well-nourished elderly woman who is alert in no distress. Head atraumatic normocephalic neck is supple. Chest rise symmetrical breath sounds clear. Heart: S1-S2. Abdomen soft, bowel tones present. Extremities wnl Assessment: 1. 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 Status post sepsis 3. S/p streptococcal bacteremia 2 to #4 4. 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 S/p urinary tract infection 6. History of left total knee replacement 7. History of multilevel discectomy and posterior fusion from L1-L3, please see CT in the chart Plan: Remains stable, repeat wound cx + yeast, ok dc isolation, continue on current abx for 6 weeks to treat OM, may change PO Zyvox to IV Daptomycin Consultation Date/Type/Reason Admit Date/Time Dec 01, 2018 at 19:24 Initial Consult Date Type of Consult id Requesting Provider: TERESA COSBY Date/Time of Note DATE: 01/14/19 TIME: 11:33 Exam/Review of Systems Exam Vitals Vital Signs Date Temp Pulse Resp B/P (MAP) Pulse Ox O2 O2 Flow FiO2 Time Delivery Rate 01/14/19 98.3 75 18 124/60 96 Room Air 09:06 (81) Intake and Output 01/13/19 01/13/19 01/14/19 1515:00 23:00 07:00 IntakeIntake Total 690 ml 290 ml 480 ml BalanceBalance 690 ml 290 ml 480 ml Results Result Diagram: 01/10/19 1340 01/10/19 1340 Medications Medication Current Medications Albuterol (Ventolin Hfa) 2 puff Q4H PRN INH WHEEZING AND SOB; Start 12/01/18 at 21:00; Status Hold Ascorbic Acid (Vitamin C) 500 mg BID PO Last administered on 01/14/19at 09:10; Admin Dose 500 MG; Start 12/01/18 at 21:00 Bupropion HCl (Wellbutrin Xl) 300 mg DAILY PO Last administered on 01/14/19 09:10; Admin Dose 300 MG; Start 12/02/18 at 09:00 Cholecalciferol (Vitamin D) 1,000 unit DAILY PO Last administered on 01/14/19 09:10; Admin Dose 1,000 UNIT; Start 12/02/18 at 09:00 Diclofenac Sodium (Voltaren 1% Gel) 2 gm TID PRN TP PAIN; Start 12/01/18 at 21:00 Levothyroxine Sodium (Synthroid) 100 mcg BEFORE BREAKFAST PO Last administered on 01/14/19 06:50; Admin Dose 100 MCG; Start 12/02/18 at 07:00 Lisinopril (Zestril) 5 mg DAILY PO Last administered on 01/14/19 09:11; Admin Dose 5 MG; Start 12/02/18 at 09:00 Multivitamins Therapeutic (Theragran) 1 tab DAILY PO Last administered on 01/14/19 09:10; Admin Dose 1 TAB; Start 12/02/18 at 09:00 Polyethylene Glycol (Miralax) 17 gm DAILY PO Last administered on 12/29/18 08:33; Admin Dose 17 GM; Start 12/02/18 at 09:00 Senna (Senokot) 1 tab BID PO Last administered on 01/13/19 21:34; Admin Dose 1 TAB; Start 12/01/18 at 21:00 Vitamin B Complex/ Vitamin C (Berocca) 1 cap DAILY PO Last administered on 01/14/19 09:10; Admin Dose 1 CAP; Start 12/02/18 at 09:00 Fish Oil (Fish Oil) 1,000 mg DAILY PO Last administered on 01/14/19 09:11; Admin Dose 1,000 MG; Start 12/02/18 at 09:00 Docusate Sodium (Colace) 100 mg Q12H PRN PO .CONSTIPATION; Start 12/01/18 at 22:00 Bisacodyl (Dulcolax) 5 mg DAILY PRN PO .CONSTIPATION; Start 12/01/18 at 22:00 Lidocaine (Xylocaine 1% (Mpf)) 30 ml ONCE PRN INJ aspiration ; Start 12/04/18 at 17:30 IV Flush (NS 3 ml) 3 ml PER PROTOCOL IV ; Start 12/05/18 at 21:30 Oxycodone HCl (Roxicodone) 15 mg Q4H PRN PO .PAIN Last administered on 12/30/18 13:42; Admin Dose 5 MG; Start 12/05/18 at 21:30 Oxycodone HCl (Roxicodone) 10 mg Q4H PRN PO .PAIN Last administered on 01/06/19 02:56; Admin Dose 10 MG; Start 12/05/18 at 21:30 Oxycodone HCl (Roxicodone) 5 mg Q4H PRN PO .PAIN Last administered on 01/14/19 04:43; Admin Dose 5 MG; Start 12/05/18 at 21:30 Hydromorphone HCl (Dilaudid) 1 mg Q3H PRN IV .BREAKTHROUGH PAIN Last administered on 12/06/18 06:58; Admin Dose 1 MG; Start 12/05/18 at 21:30 Ondansetron HCl (Zofran Inj) 4 mg Q4H PRN IV NAUSEA/VOMITING; Start 12/06/18 at 21:30 Pantoprazole (Protonix Tab) 40 mg DAILY@06 PO Last administered on 01/14/19 06:50; Admin Dose 40 MG; Start 12/07/18 at 06:00 Simethicone (Mylicon) 80 mg TID PRN PO .GAS; Start 12/05/18 at 21:30 Senna/Docusate Sodium (Senokot-S) 2 tab BID PRN PO .CONSTIPATION Last administered on 12/06/18 08:54; Admin Dose 2 TAB; Start 12/05/18 at 21:30 Magnesium Hydroxide (Milk Of Mag) 30 ml HS PRN PO .CONSTIPATION; Start 12/05/18 at 21:30 Bisacodyl (Dulcolax Supp) 10 mg DAILY PRN [place] .CONSTIPATION; Start 12/05/18 at 21:30 Sodium Biphosphate/ Sodium Phosphate (Fleet Enema) 133 ml DAILY PRN [place] .CONSTIPATION; Start 12/05/18 at 21:30 Diphenhydramine HCl (Benadryl) 25 mg Q4H PRN IV .ITCHING; Start 12/05/18 at 21:30 Naloxone HCl (Narcan) 0.2 mg Q2M PRN IV .RESP RATE; Start 12/05/18 at 21:30 Bethanechol Chloride (Urecholine) 25 mg URINARY CATH D/C PRN PO UNABLE TO VOID; Start 12/05/18 at 21:30 Aspirin (Halfprin) 81 mg BID PO Last administered on 01/14/19 09:10; Admin Dose 81 MG; Start 12/06/18 at 09:00 Nystatin (Nystatin Powder) 1 applic BID TOP Last administered on 01/14/19 09:13; Admin Dose 1 APPLIC; Start 12/12/18 at 21:00 Albuterol (Proventil 0.083% (Neb)) 2.5 mg Q2H RESP THERAPY PRN HHN SHORTNESS OF BREATH; Start 12/15/18 at 12:00 Gabapentin (Neurontin) 300 mg TID PO Last administered on 01/14/19 09:10; Admin Dose 300 MG; Start 12/22/18 at 13:00 Methocarbamol (Robaxin) 750 mg TID PO Last administered on 01/14/19 09:10; Admin Dose 750 MG; Start 12/28/18 at 13:00 Linezolid (Zyvox) 600 mg BID PO Last administered on 01/14/19 09:10; Admin Dose 600 MG; Start 12/28/18 at 15:00 Acetaminophen (Tylenol Tab) 1,000 mg Q6 PRN PO pain Last administered on 01/05/19 00:17; Admin Dose 1,000 MG; Start 12/28/18 at 21:30 Alteplase, Recombinant (Cathflo (Activase)) 2 mg MAY REPEAT X1 PRN CATHETER IF CATHETER REMAINS OCCULUDED Last administered on 12/29/18 16:53; Admin Dose 2 MG; Start 12/29/18 at 16:00 Lidocaine (Lidoderm) 1 patch DAILY TD Last administered on 01/14/19 09:12; Admin Dose 1 PATCH; Start 01/06/19 at 09:00 Sodium Hypochlorite (Dakins Diluted (40)) 1 applic BID TP Last administered on 01/14/19 09:12; Admin Dose 1 APPLIC; Start 01/06/19 at 12:03 Cefepime HCl 50 ml @ 100 mls/hr Q12 IVPB Last administered on 01/14/19 09:13; Admin Dose 100 MLS/HR; Start 01/07/19 at 21:00 Collagenase (Santyl) 1 applic BID TOP Last administered on 01/14/19 09:12; Admin Dose 1 APPLIC; Start 01/07/19 at 21:00 Fluconazole (Diflucan) 100 mg DAILY PO Last administered on 01/14/19 09:11; Admin Dose 100 MG; Start 01/13/19 at 11:30 OZZIE SOLOMON NP January 14, 2019 11:34
[2019-01-14] MEDS: ACETAMINOPHEN 500 MG TAB PO PRN (11:59)
[2019-01-14 15:25] VITALS: BP 99/55; PULSE 85; RESP 18
--- NOTE | 2019-01-14 15:30 | PN ---
Date/Time of Note Date/Time of Note DATE: 01/14/19 TIME: 15:28 Assessment/Plan VTE Prophylaxis Risk score (from Ns)>0 risk: 5 SCD applied (from [facility] [place] Yes Pharmacological prophylaxis: NA/contraindicated Pharm contraindication: low risk/ambulating Lines/Catheters Urinary Cath still in place: No Assessment/Plan Hospital Course 1. Sepsis secondary secondary to decubitus ulcers-resolved - Repeat sacral wound cultures now showing Marita, isolation has been discontinued -Recent blood cultures are negative - ID on board and appreciate recommendations. There were concerns for line infe ction but blood cultures are currently negative -Continue antibiotics 2. Septic R knee joint s/p I&D on 12/05/18- resolved - remains stable and incision site clean and dry - Continues to work with PT. - Ortho on board and recommendations appreciated. Continue IV antibiotics until 01/14 - pain control 3. Left leg muscle spasm - Robaxin TID - replacing K 4. Sacral wound - repeat cultures now show only Marita -Patient is status post surgical debridement and course of antibiotics -Bone biopsy shows necrosis, negative for malignancy 5. Chronic spinal disease - h/o significant stenosis of her spine. Lumbar spine and thoracic spine CT show signs of stenosis though no acute fractures. - continue lidocaine patch -Patient is not interested in oral or IV narcotics 6. osteoarthritis - pain control 7. urinary tract infection- treated - Cultures grew Ecoli and lactobacillus - asymptomatic 8. Strep Bacteremia - continue current antibiotics - repeat cultures negative 9. Mechanical fall 10. Disposition - CM on board for SNF placement Result Diagram: 01/10/19 1340 01/10/19 1340 Subjective 24 Hr Interval Summary Constitutional: no complaints Exam/Review of Systems Exam Vitals Vital Signs Date Temp Pulse Resp B/P (MAP) Pulse Ox O2 O2 Flow FiO2 Time Delivery Rate 01/14/19 98.2 85 18 99/55 (70) Room Air 15:25 01/14/19 96 09:06 Intake and Output 01/13/19 01/13/19 01/14/19 1414:59 22:59 06:59 IntakeIntake Total 690 ml 290 ml 480 ml BalanceBalance 690 ml 290 ml 480 ml Constitutional: alert, oriented Respiratory: clear to auscultation Cardiovascular: regular rate and rhythm Gastrointestinal: soft; No distended Musculoskeletal: nl extremities to inspection Medications Medication Current Medications Albuterol (Ventolin Hfa) 2 puff Q4H PRN INH WHEEZING AND SOB; Start 12/01/18 at 21:00; Status Hold Ascorbic Acid (Vitamin C) 500 mg BID PO Last administered on 01/14/19 09:10; Admin Dose 500 MG; Start 12/01/18 at 21:00 Bupropion HCl (Wellbutrin Xl) 300 mg DAILY PO Last administered on 01/14/19 09:10; Admin Dose 300 MG; Start 12/02/18 at 09:00 Cholecalciferol (Vitamin D) 1,000 unit DAILY PO Last administered on 01/14/19 09:10; Admin Dose 1,000 UNIT; Start 12/02/18 at 09:00 Diclofenac Sodium (Voltaren 1% Gel) 2 gm TID PRN TP PAIN; Start 12/01/18 at 21:00 Levothyroxine Sodium (Synthroid) 100 mcg BEFORE BREAKFAST PO Last administered on 01/14/19 06:50; Admin Dose 100 MCG; Start 12/02/18 at 07:00 Lisinopril (Zestril) 5 mg DAILY PO Last administered on 01/14/19 09:11; Admin Dose 5 MG; Start 12/02/18 at 09:00 Multivitamins Therapeutic (Theragran) 1 tab DAILY PO Last administered on 01/14/19 09:10; Admin Dose 1 TAB; Start 12/02/18 at 09:00 Polyethylene Glycol (Miralax) 17 gm DAILY PO Last administered on 12/29/18 08:33; Admin Dose 17 GM; Start 12/02/18 at 09:00 Senna (Senokot) 1 tab BID PO Last administered on 01/13/19 21:34; Admin Dose 1 TAB; Start 12/01/18 at 21:00 Vitamin B Complex/ Vitamin C (Berocca) 1 cap DAILY PO Last administered on 01/14/19 09:10; Admin Dose 1 CAP; Start 12/02/18 at 09:00 Fish Oil (Fish Oil) 1,000 mg DAILY PO Last administered on 01/14/19 09:11; Admin Dose 1,000 MG; Start 12/02/18 at 09:00 Docusate Sodium (Colace) 100 mg Q12H PRN PO .CONSTIPATION; Start 12/01/18 at 22:00 Bisacodyl (Dulcolax) 5 mg DAILY PRN PO .CONSTIPATION; Start 12/01/18 at 22:00 Lidocaine (Xylocaine 1% (Mpf)) 30 ml ONCE PRN INJ aspiration ; Start 12/04/18 at 17:30 IV Flush (NS 3 ml) 3 ml PER PROTOCOL IV ; Start 12/05/18 at 21:30 Oxycodone HCl (Roxicodone) 15 mg Q4H PRN PO .PAIN Last administered on 12/30/18at 13:42; Admin Dose 5 MG; Start 12/05/18 at 21:30 Oxycodone HCl (Roxicodone) 10 mg Q4H PRN PO .PAIN Last administered on 01/06/19 02:56; Admin Dose 10 MG; Start 12/05/18 at 21:30 Oxycodone HCl (Roxicodone) 5 mg Q4H PRN PO .PAIN Last administered on 01/14/19 04:43; Admin Dose 5 MG; Start 12/05/18 at 21:30 Hydromorphone HCl (Dilaudid) 1 mg Q3H PRN IV .BREAKTHROUGH PAIN Last administered on 12/06/18 06:58; Admin Dose 1 MG; Start 12/05/18 at 21:30 Ondansetron HCl (Zofran Inj) 4 mg Q4H PRN IV NAUSEA/VOMITING; Start 12/06/18 at 21:30 Pantoprazole (Protonix Tab) 40 mg DAILY@06 PO Last administered on 01/14/19 06:50; Admin Dose 40 MG; Start 12/07/18 at 06:00 Simethicone (Mylicon) 80 mg TID PRN PO .GAS; Start 12/05/18 at 21:30 Senna/Docusate Sodium (Senokot-S) 2 tab BID PRN PO .CONSTIPATION Last admi nistered on 12/06/18 08:54; Admin Dose 2 TAB; Start 12/05/18 at 21:30 Magnesium Hydroxide (Milk Of Mag) 30 ml HS PRN PO .CONSTIPATION; Start 12/05/18 at 21:30 Bisacodyl (Dulcolax Supp) 10 mg DAILY PRN [place] .CONSTIPATION; Start 12/05/18 at 21:30 Sodium Biphosphate/ Sodium Phosphate (Fleet Enema) 133 ml DAILY PRN [place] .CONSTIPATION; Start 12/05/18 at 21:30 Diphenhydramine HCl (Benadryl) 25 mg Q4H PRN IV .ITCHING; Start 12/05/18 at 21:30 Naloxone HCl (Narcan) 0.2 mg Q2M PRN IV .RESP RATE; Start 12/05/18 at 21:30 Bethanechol Chloride (Urecholine) 25 mg URINARY CATH D/C PRN PO UNABLE TO VOID; Start 12/05/18 at 21:30 Aspirin (Halfprin) 81 mg BID PO Last administered on 01/14/19 09:10; Admin Dose 81 MG; Start 12/06/18 at 09:00 Nystatin (Nystatin Powder) 1 applic BID TOP Last administered on 01/14/19 09:13; Admin Dose 1 APPLIC; Start 12/12/18 at 21:00 Albuterol (Proventil 0.083% (Neb)) 2.5 mg Q2H RESP THERAPY PRN HHN SHORTNESS OF BREATH; Start 12/15/18 at 12:00 Gabapentin (Neurontin) 300 mg TID PO Last administered on 01/14/19 13:33; Admin Dose 300 MG; Start 12/22/18 at 13:00 Methocarbamol (Robaxin) 750 mg TID PO Last administered on 01/14/19 13:33; Admin Dose 750 MG; Start 12/28/18 at 13:00 Linezolid (Zyvox) 600 mg BID PO Last administered on 01/14/19 09:10; Admin Dose 600 MG; Start 12/28/18 at 15:00 Acetaminophen (Tylenol Tab) 1,000 mg Q6 PRN PO pain Last administered on 01/14/19 at 11:59; Admin Dose 1,000 MG; Start 12/28/18 at 21:30 Alteplase, Recombinant (Cathflo (Activase)) 2 mg MAY REPEAT X1 PRN CATHETER IF CATHETER REMAINS OCCULUDED Last administered on 12/29/18at 16:53; Admin Dose 2 MG; Start 12/29/18 at 16:00 Lidocaine (Lidoderm) 1 patch DAILY TD Last administered on 01/14/19 09:12; Admin Dose 1 PATCH; Start 01/06/19 at 09:00 Sodium Hypochlorite (Dakins Diluted (1/40)) 1 applic BID TP Last administered on 01/14/19 09:12; Admin Dose 1 APPLIC; Start 01/06/19 at 12:03 Cefepime HCl 50 ml @ 100 mls/hr Q12 IVPB Last administered on 01/14/19 09:13; Admin Dose 100 MLS/HR; Start 01/07/19 at 21:00 Collagenase (Santyl) 1 applic BID TOP Last administered on 01/14/19 09:12; Admin Dose 1 APPLIC; Start 01/07/19 at 21:00 Fluconazole (Diflucan) 100 mg DAILY PO Last administered on 01/14/19 09:11; Admin Dose 100 MG; Start 01/13/19 at 11:30 TERESA COSBY January 14, 2019 15:30
[2019-01-14 19:15] VITALS: BP 128/63; PULSE 60; RESP 18
[2019-01-15] MEDS: oxyCODONE 5 MG TAB PO PRN (01:17)
[2019-01-15 01:35] VITALS: BP 99/53; PULSE 80; RESP 18
[2019-01-15] MEDS: PANTOPRAZOLE (EC) 40 MG TAB PO SCH (05:50)
[2019-01-15] MEDS: LEVOTHYROXINE 100 MCG TAB PO SCH (05:50)
[2019-01-15 07:51] VITALS: BP 110/55; PULSE 85; RESP 17
[2019-01-15] MEDS: SENNA TAB PO SCH ×2 (09:00→21:00)
[2019-01-15] MEDS: POLYETHYLENE GLYCOL 17 GM PACKET PO SCH (09:00)
[2019-01-15] MEDS: METHOCARBAMOL 750 MG TAB PO SCH ×3 (09:14→20:29)
[2019-01-15] MEDS: COLLAGENASE 5 GM (UD JAR) TOP SCH ×2 (09:15→20:29)
[2019-01-15] MEDS: CEFEPIME 1GM/50 ML (PMX) 50 ML IVPB SCH ×2 (09:15→20:29)
[2019-01-15] MEDS: GABAPENTIN 300 MG CAP PO SCH ×3 (09:16→20:29)
[2019-01-15] MEDS: VITAMIN B COMPLEX/VIT C CAP PO SCH (09:16)
[2019-01-15] MEDS: MULTIVITAMINS THERAPEUTIC TAB PO SCH (09:17)
[2019-01-15] MEDS: BUPROPION (XL) 150 MG TAB PO SCH (09:17)
[2019-01-15] MEDS: CHOLECALCIFEROL 1,000 UNIT TAB PO SCH (09:17)
[2019-01-15] MEDS: ASPIRIN (EC) 81 MG TAB PO SCH ×2 (09:18→20:29)
[2019-01-15] MEDS: FISH OIL 1,000 MG CAP PO SCH (09:18)
[2019-01-15] MEDS: ZYVOX 600 MG TAB PO SCH ×2 (09:18→20:29)
[2019-01-15] MEDS: ASCORBIC ACID 500 MG TAB PO SCH ×2 (09:19→20:29)
[2019-01-15] MEDS: FLUCONAZOLE 100 MG TAB PO SCH (09:19)
[2019-01-15] MEDS: LISINOPRIL 5 MG TAB PO SCH (09:21)
[2019-01-15] MEDS: LIDOCAINE 5% PATCH TD SCH (09:22)
[2019-01-15] MEDS: NYSTATIN 30 GM POWDER BTL TOP SCH ×2 (09:22→21:00)
[2019-01-15] MEDS: DAKINS 0.0125%(1/40) 473 ML SOLUTION TP SCH ×2 (09:22→20:37)
[2019-01-15] MEDS: BALSAM PERU/CASTOR OIL 60 GM TUBE TOP SCH ×2 (09:23→20:37)
--- NOTE | 2019-01-15 11:13 | PN ---
Date/Time of Note Date/Time of Note DATE: 01/15/19 TIME: 11:11 Assessment/Plan Lines/Catheters IV Catheter Type (from [facility] PICC Line Schaeffer in Place (from [facility]): No Assessment/Plan Chief Complaint/Hosp Course 1. Sacral wound: + Wound cultures; status post repeat debridement 01/07/2019; bone pathology noted; soft bone noted during debridement> + osteo; repeat wound cultures noted> now off isolation Sacral coccyx ulcer biopsy:: fragments of bone with overlying cartilage showing bone necrosis and acute osteomyelitis. -cont antibiotics per ID -Repeat debridement as needed > can follow with Dr. Nation at wound care clinic -Continue local care> same tx -frequent turning and off-loading -low air loss mattress -vitamin c -short term zinc -optimize nutrition -dc ok from surgical standpoint 2. Bacteremia: Repeat blood culture: NG 3.Septic right knee joint status post I&D: -Per Ortho 4. Spine disease: Status post spinal surgeries -Supportive 5.UTI: -abx per sensitivity -frequent bladder emptying/cath care 6. Osteoarthritis: -Medical management Thank you. Patient seen and examined in collaboration with Dr. Fernandez Nation Subjective 24 Hr Interval Summary No fevers, chills, sob, congested cough, cp, palpitations, ruano, dizziness, n/v/d/dysuria, excessive wound drainage/odor. Exam/Review of Systems Vital Signs Vitals Vital Signs Date Temp Pulse Resp B/P (MAP) Pulse Ox O2 O2 Flow FiO2 Time Delivery Rate 01/15/19 98.0 85 17 110/55 97 07:51 (73) 01/15/19 Room Air 01:35 Intake and Output 01/14/19 01/14/19 01/15/19 1515:00 23:00 07:00 IntakeIntake Total 1150 ml 340 ml BalanceBalance 1150 ml 340 ml Exam Free Text/Dictation Constitutional: alert, oriented Psych: nl mood/affect; No anxiety Head: normocephalic, atraumatic Eyes: nl conjunctiva, EOMI, nl lids, nl sclera ENMT: nl external ears & nose, nl lips & teeth, nl nasal mucosa & septum, mucosa pink and moist Neck: supple, non-tender; No jvd Respiratory: normal air movement; No congested cough Cardiovascular: regular rate and rhythm, nl pulses; No edema Gastrointestinal: soft, non-tender; No distended Genitourinary - Female: nl external genitalia Musculoskeletal: nl extremities to inspection; No nl gait and stance Extremities: normal pulses Neurological: nl mental status, nl speech, nl strength Skin: nl turgor, other (Sacrum: Minimal Slough, minimal drainage, no odor, minimal periwound erythema-improved) Lymph: nl lymph nodes YESSICA ALAMO NP January 15, 2019 11:13
--- NOTE | 2019-01-15 12:58 | CONS ---
Assessment/Plan Assessment/Plan Hospital Course (Demo Recall) Late entry, visit date 01/14/19 Preoperative cardiac risk stratification Septic arthritis status post surgery 12/05/2018 Preserved ejection fraction Hypertension -Denies symptoms of chest pain, shortness of breath or palpitations. -BP trend overall well controlled. Continue lisinopril as needed Consultation Date/Type/Reason Admit Date/Time Dec 01, 2018 at 19:24 Initial Consult Date 12/04/18 Type of Consult Cardiology Requesting Provider: TERESA COSBY Date/Time of Note DATE: 01/14/19 TIME: 14:56 24 HR Interval Summary Free Text/Dictation no cp,sob,palp Exam/Review of Systems Vital Signs Vitals Vital Signs Date Temp Pulse Resp B/P (MAP) Pulse Ox O2 O2 Flow FiO2 Time Delivery Rate 01/15/19 98.0 85 17 110/55 97 07:51 (73) 01/15/19 Room Air 01:35 Intake and Output 01/14/19 01/14/19 01/15/19 1515:00 23:00 07:00 IntakeIntake Total 1150 ml 340 ml BalanceBalance 1150 ml 340 ml Exam Constitutional: alert, oriented (nad, sitting in chair knitting) Head: normocephalic Respiratory: clear to auscultation, normal air movement Cardiovascular: regular rate and rhythm (s1s2) Gastrointestinal: soft, non-tender, bowel sounds Extremities: edema (tr) Medications Medications Current Medications Albuterol (Ventolin Hfa) 2 puff Q4H PRN INH WHEEZING AND SOB; Start 12/01/18 at 21:00; Status Hold Ascorbic Acid (Vitamin C) 500 mg BID PO Last administered on 01/15/19at 09:19; Admin Dose 500 MG; Start 12/01/18 at 21:00 Bupropion HCl (Wellbutrin Xl) 300 mg DAILY PO Last administered on 01/15/19at 09:17; Admin Dose 300 MG; Start 12/02/18 at 09:00 Cholecalciferol (Vitamin D) 1,000 unit DAILY PO Last administered on 01/15/19at 09:17; Admin Dose 1,000 UNIT; Start 12/02/18 at 09:00 Diclofenac Sodium (Voltaren 1% Gel) 2 gm TID PRN TP PAIN; Start 12/01/18 at 21:00 Levothyroxine Sodium (Synthroid) 100 mcg BEFORE BREAKFAST PO Last administered on 01/15/19 05:50; Admin Dose 100 MCG; Start 12/02/18 at 07:00 Lisinopril (Zestril) 5 mg DAILY PO Last administered on 01/15/19 09:21; Admin Dose 5 MG; Start 12/02/18 at 09:00 Multivitamins Therapeutic (Theragran) 1 tab DAILY PO Last administered on 01/15/19 09:17; Admin Dose 1 TAB; Start 12/02/18 at 09:00 Polyethylene Glycol (Miralax) 17 gm DAILY PO Last administered on 12/29/18 08:33; Admin Dose 17 GM; Start 12/02/18 at 09:00 Senna (Senokot) 1 tab BID PO Last administered on 01/13/19 21:34; Admin Dose 1 TAB; Start 12/01/18 at 21:00 Vitamin B Complex/ Vitamin C (Berocca) 1 cap DAILY PO Last administered on 01/15/19 09:16; Admin Dose 1 CAP; Start 12/02/18 at 09:00 Fish Oil (Fish Oil) 1,000 mg DAILY PO Last administered on 01/15/19 09:18; Admin Dose 1,000 MG; Start 12/02/18 at 09:00 Docusate Sodium (Colace) 100 mg Q12H PRN PO .CONSTIPATION; Start 12/01/18 at 22:00 Bisacodyl (Dulcolax) 5 mg DAILY PRN PO .CONSTIPATION; Start 12/01/18 at 22:00 Lidocaine (Xylocaine 1% (Mpf)) 30 ml ONCE PRN INJ aspiration ; Start 12/04/18 at 17:30 IV Flush (NS 3 ml) 3 ml PER PROTOCOL IV ; Start 12/05/18 at 21:30 Oxycodone HCl (Roxicodone) 15 mg Q4H PRN PO .PAIN Last administered on 12/30/18 13:42; Admin Dose 5 MG; Start 12/05/18 at 21:30 Oxycodone HCl (Roxicodone) 10 mg Q4H PRN PO .PAIN Last administered on 01/15/19 01:17; Admin Dose 10 MG; Start 12/05/18 at 21:30 Oxycodone HCl (Roxicodone) 5 mg Q4H PRN PO .PAIN Last administered on 01/14/19 04:43; Admin Dose 5 MG; Start 12/05/18 at 21:30 Hydromorphone HCl (Dilaudid) 1 mg Q3H PRN IV .BREAKTHROUGH PAIN Last administered on 12/06/18 06:58; Admin Dose 1 MG; Start 12/05/18 at 21:30 Ondansetron HCl (Zofran Inj) 4 mg Q4H PRN IV NAUSEA/VOMITING; Start 12/06/18 at 21:30 Pantoprazole (Protonix Tab) 40 mg DAILY@06 PO Last administered on 01/15/19 05:50; Admin Dose 40 MG; Start 12/07/18 at 06:00 Simethicone (Mylicon) 80 mg TID PRN PO .GAS; Start 12/05/18 at 21:30 Senna/Docusate Sodium (Senokot-S) 2 tab BID PRN PO .CONSTIPATION Last administered on 12/06/18 08:54; Admin Dose 2 TAB; Start 12/05/18 at 21:30 Magnesium Hydroxide (Milk Of Mag) 30 ml HS PRN PO .CONSTIPATION; Start 12/05/18 at 21:30 Bisacodyl (Dulcolax Supp) 10 mg DAILY PRN [place] .CONSTIPATION; Start 12/05/18 at 21:30 Sodium Biphosphate/ Sodium Phosphate (Fleet Enema) 133 ml DAILY PRN [place] .CON STIPATION; Start 12/05/18 at 21:30 Diphenhydramine HCl (Benadryl) 25 mg Q4H PRN IV .ITCHING; Start 12/05/18 at 21:30 Naloxone HCl (Narcan) 0.2 mg Q2M PRN IV .RESP RATE; Start 12/05/18 at 21:30 Bethanechol Chloride (Urecholine) 25 mg URINARY CATH D/C PRN PO UNABLE TO VOID; Start 12/05/18 at 21:30 Aspirin (Halfprin) 81 mg BID PO Last administered on 01/15/19 09:18; Admin Dose 81 MG; Start 12/06/18 at 09:00 Nystatin (Nystatin Powder) 1 applic BID TOP Last administered on 01/15/19 09:22; Admin Dose 1 APPLIC; Start 12/12/18 at 21:00 Albuterol (Proventil 0.083% (Neb)) 2.5 mg Q2H RESP THERAPY PRN HHN SHORTNESS OF BREATH; Start 12/15/18 at 12:00 Gabapentin (Neurontin) 300 mg TID PO Last administered on 01/15/19 12:50; Admin Dose 300 MG; Start 12/22/18 at 13:00 Methocarbamol (Robaxin) 750 mg TID PO Last administered on 01/15/19 12:53; Admin Dose 750 MG; Start 12/28/18 at 13:00 Linezolid (Zyvox) 600 mg BID PO Last administered on 01/15/19 09:18; Admin Dose 600 MG; Start 12/28/18 at 15:00 Acetaminophen (Tylenol Tab) 1,000 mg Q6 PRN PO pain Last administered on 01/14/19 11:59; Admin Dose 1,000 MG; Start 12/28/18 at 21:30 Alteplase, Recombinant (Cathflo (Activase)) 2 mg MAY REPEAT X1 PRN CATHETER IF CATHETER REMAINS OCCULUDED Last administered on 12/29/18 16:53; Admin Dose 2 MG; Start 12/29/18 at 16:00 Lidocaine (Lidoderm) 1 patch DAILY TD Last administered on 01/15/19 09:22; Admin Dose 1 PATCH; Start 01/06/19 at 09:00 Sodium Hypochlorite (Dakins Diluted (1/40)) 1 applic BID TP Last administered on 01/15/19 09:22; Admin Dose 1 APPLIC; Start 01/06/19 at 12:03 Cefepime HCl 50 ml @ 100 mls/hr Q12 IVPB Last administered on 01/15/19 09:15; Admin Dose 100 MLS/HR; Start 01/07/19 at 21:00 Collagenase (Santyl) 1 applic BID TOP Last administered on 01/15/19 09:15; Admin Dose 1 APPLIC; Start 01/07/19 at 21:00 Fluconazole (Diflucan) 100 mg DAILY PO Last administered on 01/15/19 09:19; Admin Dose 100 MG; Start 01/13/19 at 11:30 Martin Kelley DO January 15, 2019 12:57
--- NOTE | 2019-01-15 13:33 | CONS ---
Assessment/Plan Assessment/Plan Hospital Course (Demo Recall) All noted, no events over night Antimicrobials: Cefepime, Zyvox fluconazole Microbiology: Blood culture on admission grew strep, urine culture grew E. coli, MRSA swab negative, repeat blood cultures negative. Sacral wound cx + VRE/Proteus/Strep/Marita 2D echo revealed no vegetations Physical examination: This is well-developed well-nourished elderly woman who is alert in no distress. Head atraumatic normocephalic neck is supple. Chest rise symmetrical breath sounds clear. Heart: S1-S2. Abdomen soft, bowel tones present. Extremities wnl Assessment: 1. 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 Status post sepsis 3. S/p streptococcal bacteremia 2 to #4 4. 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 S/p urinary tract infection 6. History of left total knee replacement 7. History of multilevel discectomy and posterior fusion from L1-L3, please see CT in the chart Plan: Remains stable, repeat wound cx + yeast, ok dc isolation, continue on current abx for 5 more weeks to treat OM, may change PO Zyvox to IV Daptomycin Consultation Date/Type/Reason Admit Date/Time Dec 01, 2018 at 19:24 Initial Consult Date Type of Consult id Requesting Provider: TERESA COSBY Date/Time of Note DATE: 01/15/19 TIME: 13:33 Exam/Review of Systems Exam Vitals Vital Signs Date Temp Pulse Resp B/P (MAP) Pulse Ox O2 O2 Flow FiO2 Time Delivery Rate 01/15/19 98.0 85 17 110/55 97 07:51 (73) 01/15/19 Room Air 01:35 Intake and Output 01/14/19 01/14/19 01/15/19 1515:00 23:00 07:00 IntakeIntake Total 1150 ml 340 ml BalanceBalance 1150 ml 340 ml Medications Medication Current Medications Albuterol (Ventolin Hfa) 2 puff Q4H PRN INH WHEEZING AND SOB; Start 12/01/18 at 21:00; Status Hold Ascorbic Acid (Vitamin C) 500 mg BID PO Last administered on 01/15/19at 09:19; Admin Dose 500 MG; Start 12/01/18 at 21:00 Bupropion HCl (Wellbutrin Xl) 300 mg DAILY PO Last administered on 01/15/19 09:17; Admin Dose 300 MG; Start 12/02/18 at 09:00 Cholecalciferol (Vitamin D) 1,000 unit DAILY PO Last administered on 01/15/19 09:17; Admin Dose 1,000 UNIT; Start 12/02/18 at 09:00 Diclofenac Sodium (Voltaren 1% Gel) 2 gm TID PRN TP PAIN; Start 12/01/18 at 21:00 Levothyroxine Sodium (Synthroid) 100 mcg BEFORE BREAKFAST PO Last administered on 01/15/19 05:50; Admin Dose 100 MCG; Start 12/02/18 at 07:00 Lisinopril (Zestril) 5 mg DAILY PO Last administered on 01/15/19 09:21; Admin Dose 5 MG; Start 12/02/18 at 09:00 Multivitamins Therapeutic (Theragran) 1 tab DAILY PO Last administered on 01/15/19 09:17; Admin Dose 1 TAB; Start 12/02/18 at 09:00 Polyethylene Glycol (Miralax) 17 gm DAILY PO Last administered on 12/29/18 08:33; Admin Dose 17 GM; Start 12/02/18 at 09:00 Senna (Senokot) 1 tab BID PO Last administered on 01/13/19 21:34; Admin Dose 1 TAB; Start 12/01/18 at 21:00 Vitamin B Complex/ Vitamin C (Berocca) 1 cap DAILY PO Last administered on 01/15/19 09:16; Admin Dose 1 CAP; Start 12/02/18 at 09:00 Fish Oil (Fish Oil) 1,000 mg DAILY PO Last administered on 01/15/19 09:18; Admin Dose 1,000 MG; Start 12/02/18 at 09:00 Docusate Sodium (Colace) 100 mg Q12H PRN PO .CONSTIPATION; Start 12/01/18 at 22:00 Bisacodyl (Dulcolax) 5 mg DAILY PRN PO .CONSTIPATION; Start 12/01/18 at 22:00 Lidocaine (Xylocaine 1% (Mpf)) 30 ml ONCE PRN INJ aspiration ; Start 12/04/18 at 17:30 IV Flush (NS 3 ml) 3 ml PER PROTOCOL IV ; Start 12/05/18 at 21:30 Oxycodone HCl (Roxicodone) 15 mg Q4H PRN PO .PAIN Last administered on 12/30/18 13:42; Admin Dose 5 MG; Start 12/05/18 at 21:30 Oxycodone HCl (Roxicodone) 10 mg Q4H PRN PO .PAIN Last administered on 01/15/19 01:17; Admin Dose 10 MG; Start 12/05/18 at 21:30 Oxycodone HCl (Roxicodone) 5 mg Q4H PRN PO .PAIN Last administered on 01/14/19 04:43; Admin Dose 5 MG; Start 12/05/18 at 21:30 Hydromorphone HCl (Dilaudid) 1 mg Q3H PRN IV .BREAKTHROUGH PAIN Last administered on 12/06/18 06:58; Admin Dose 1 MG; Start 12/05/18 at 21:30 Ondansetron HCl (Zofran Inj) 4 mg Q4H PRN IV NAUSEA/VOMITING; Start 12/06/18 at 21:30 Pantoprazole (Protonix Tab) 40 mg DAILY@06 PO Last administered on 01/15/19 05:50; Admin Dose 40 MG; Start 12/07/18 at 06:00 Simethicone (Mylicon) 80 mg TID PRN PO .GAS; Start 12/05/18 at 21:30 Senna/Docusate Sodium (Senokot-S) 2 tab BID PRN PO .CONSTIPATION Last administered on 12/06/18 08:54; Admin Dose 2 TAB; Start 12/05/18 at 21:30 Magnesium Hydroxide (Milk Of Mag) 30 ml HS PRN PO .CONSTIPATION; Start 12/05/18 at 21:30 Bisacodyl (Dulcolax Supp) 10 mg DAILY PRN [place] .CONSTIPATION; Start 12/05/18 at 21:30 Sodium Biphosphate/ Sodium Phosphate (Fleet Enema) 133 ml DAILY PRN [place] .CONSTIPATION; Start 12/05/18 at 21:30 Diphenhydramine HCl (Benadryl) 25 mg Q4H PRN IV .ITCHING; Start 12/05/18 at 21:30 Naloxone HCl (Narcan) 0.2 mg Q2M PRN IV .RESP RATE; Start 12/05/18 at 21:30 Bethanechol Chloride (Urecholine) 25 mg URINARY CATH D/C PRN PO UNABLE TO VOID; Start 12/05/18 at 21:30 Aspirin (Halfprin) 81 mg BID PO Last administered on 01/15/19 09:18; Admin Dose 81 MG; Start 12/06/18 at 09:00 Nystatin (Nystatin Powder) 1 applic BID TOP Last administered on 01/15/19 09:22; Admin Dose 1 APPLIC; Start 12/12/18 at 21:00 Albuterol (Proventil 0.083% (Neb)) 2.5 mg Q2H RESP THERAPY PRN HHN SHORTNESS OF BREATH; Start 12/15/18 at 12:00 Gabapentin (Neurontin) 300 mg TID PO Last administered on 01/15/19 12:50; Admin Dose 300 MG; Start 12/22/18 at 13:00 Methocarbamol (Robaxin) 750 mg TID PO Last administered on 01/15/19 12:53; Admin Dose 750 MG; Start 12/28/18 at 13:00 Linezolid (Zyvox) 600 mg BID PO Last administered on 01/15/19 09:18; Admin Dose 600 MG; Start 12/28/18 at 15:00 Acetaminophen (Tylenol Tab) 1,000 mg Q6 PRN PO pain Last administered on 01/14/19 11:59; Admin Dose 1,000 MG; Start 12/28/18 at 21:30 Alteplase, Recombinant (Cathflo (Activase)) 2 mg MAY REPEAT X1 PRN CATHETER IF CATHETER REMAINS OCCULUDED Last administered on 12/29/18 16:53; Admin Dose 2 MG; Start 12/29/18 at 16:00 Lidocaine (Lidoderm) 1 patch DAILY TD Last administered on 01/15/19 09:22; Admin Dose 1 PATCH; Start 01/06/19 at 09:00 Sodium Hypochlorite (Dakins Diluted (40)) 1 applic BID TP Last administered on 01/15/19 09:22; Admin Dose 1 APPLIC; Start 01/06/19 at 12:03 Cefepime HCl 50 ml @ 100 mls/hr Q12 IVPB Last administered on 01/15/19 09:15; Admin Dose 100 MLS/HR; Start 01/07/19 at 21:00 Collagenase (Santyl) 1 applic BID TOP Last administered on 01/15/19at 09:15; Admin Dose 1 APPLIC; Start 01/07/19 at 21:00 Fluconazole (Diflucan) 100 mg DAILY PO Last administered on 01/15/19at 09:19; Admin Dose 100 MG; Start 01/13/19 at 11:30 OZZIE SOLOMON NP January 15, 2019 13:33
[2019-01-15 14:07] VITALS: BP 100/52; PULSE 98; RESP 18
--- NOTE | 2019-01-15 14:26 | PN ---
Date/Time of Note Date/Time of Note DATE: 01/15/19 TIME: 14:25 Assessment/Plan VTE Prophylaxis Risk score (from Ns)>0 risk: 3 SCD applied (from [facility]): Yes Pharmacological prophylaxis: NA/contraindicated Pharm contraindication: low risk/ambulating Lines/Catheters Urinary Cath still in place: No Assessment/Plan Hospital Course 1. Sepsis secondary secondary to decubitus ulcers-resolved - Repeat sacral wound cultures now showing Marita, isolation has been discontinued -Recent blood cultures are negative - ID on board and appreciate recommendations. There were concerns for line infection but blood cultures are currently negative -Continue antibiotics 2. Septic R knee joint s/p I&D on 12/05/18- resolved - remains stable and incision site clean and dry - Continues to work with PT. - Ortho on board and recommendations appreciated. Continue IV antibiotics until 01/14 - pain control 3. Left leg muscle spasm - Robaxin TID - replacing K 4. Sacral wound - repeat cultures now show only Marita -Patient is status post surgical debridement and course of antibiotics -Bone biopsy shows necrosis, negative for malignancy 5. Chronic spinal disease - h/o significant stenosis of her spine. Lumbar spine and thoracic spine CT show signs of stenosis though no acute fractures. - continue lidocaine patch -Patient is not interested in oral or IV narcotics 6. osteoarthritis - pain control 7. urinary tract infection- treated - Cultures grew Ecoli and lactobacillus - asymptomatic 8. Strep Bacteremia - continue current antibiotics - repeat cultures negative 9. Mechanical fall 10. Disposition - on board for SNF placement Subjective 24 Hr Interval Summary Constitutional: no complaints Exam/Review of Systems Exam Vitals Vital Signs Date Temp Pulse Resp B/P (MAP) Pulse Ox O2 O2 Flow FiO2 Time Delivery Rate 01/15/19 97.7 98 18 100/52 98 14:07 (68) 01/15/19 Room Air 01:35 Intake and Output 01/14/19 01/14/19 01/15/19 1414:59 22:59 06:59 IntakeIntake Total 1030 ml 460 ml BalanceBalance 1030 ml 460 ml Constitutional: alert, oriented Respiratory: clear to auscultation Cardiovascular: regular rate and rhythm Gastrointestinal: soft; No distended Musculoskeletal: nl extremities to inspection Medications Medication Current Medications Albuterol (Ventolin Hfa) 2 puff Q4H PRN INH WHEEZING AND SOB; Start 12/01/18 at 21:00; Status Hold Ascorbic Acid (Vitamin C) 500 mg BID PO Last administered on 01/15/19 09:19; Admin Dose 500 MG; Start 12/01/18 at 21:00 Bupropion HCl (Wellbutrin Xl) 300 mg DAILY PO Last administered on 01/15/19 09:17; Admin Dose 300 MG; Start 12/02/18 at 09:00 Cholecalciferol (Vitamin D) 1,000 unit DAILY PO Last administered on 01/15/19 09:17; Admin Dose 1,000 UNIT; Start 12/02/18 at 09:00 Diclofenac Sodium (Voltaren 1% Gel) 2 gm TID PRN TP PAIN; Start 12/01/18 at 21:00 Levothyroxine Sodium (Synthroid) 100 mcg BEFORE BREAKFAST PO Last administered on 01/15/19 05:50; Admin Dose 100 MCG; Start 12/02/18 at 07:00 Lisinopril (Zestril) 5 mg DAILY PO Last administered on 01/15/19 09:21; Admin D ose 5 MG; Start 12/02/18 at 09:00 Multivitamins Therapeutic (Theragran) 1 tab DAILY PO Last administered on 01/15/19 09:17; Admin Dose 1 TAB; Start 12/02/18 at 09:00 Polyethylene Glycol (Miralax) 17 gm DAILY PO Last administered on 12/29/18 08:33; Admin Dose 17 GM; Start 12/02/18 at 09:00 Senna (Senokot) 1 tab BID PO Last administered on 01/13/19 21:34; Admin Dose 1 TAB; Start 12/01/18 at 21:00 Vitamin B Complex/ Vitamin C (Berocca) 1 cap DAILY PO Last administered on 01/15/19 09:16; Admin Dose 1 CAP; Start 12/02/18 at 09:00 Fish Oil (Fish Oil) 1,000 mg DAILY PO Last administered on 01/15/19 09:18; Admin Dose 1,000 MG; Start 12/02/18 at 09:00 Docusate Sodium (Colace) 100 mg Q12H PRN PO .CONSTIPATION; Start 12/01/18 at 22:00 Bisacodyl (Dulcolax) 5 mg DAILY PRN PO .CONSTIPATION; Start 12/01/18 at 22:00 Lidocaine (Xylocaine 1% (Mpf)) 30 ml ONCE PRN INJ aspiration ; Start 12/04/18 at 17:30 IV Flush (NS 3 ml) 3 ml PER PROTOCOL IV ; Start 12/05/18 at 21:30 Oxycodone HCl (Roxicodone) 15 mg Q4H PRN PO .PAIN Last administered on 12/30/18 13:42; Admin Dose 5 MG; Start 12/05/18 at 21:30 Oxycodone HCl (Roxicodone) 10 mg Q4H PRN PO .PAIN Last administered on 01/15/19 01:17; Admin Dose 10 MG; Start 12/05/18 at 21:30 Oxycodone HCl (Roxicodone) 5 mg Q4H PRN PO .PAIN Last administered on 01/14/19 04:43; Admin Dose 5 MG; Start 12/05/18 at 21:30 Hydromorphone HCl (Dilaudid) 1 mg Q3H PRN IV .BREAKTHROUGH PAIN Last administered on 12/06/18at 06:58; Admin Dose 1 MG; Start 12/05/18 at 21:30 Ondansetron HCl (Zofran Inj) 4 mg Q4H PRN IV NAUSEA/VOMITING; Start 12/06/18 at 21:30 Pantoprazole (Protonix Tab) 40 mg DAILY@06 PO Last administered on 01/15/19 05:50; Admin Dose 40 MG; Start 12/07/18 at 06:00 Simethicone (Mylicon) 80 mg TID PRN PO .GAS; Start 12/05/18 at 21:30 Senna/Docusate Sodium (Senokot-S) 2 tab BID PRN PO .CONSTIPATION Last administered on 12/06/18 08:54; Admin Dose 2 TAB; Start 12/05/18 at 21:30 Magnesium Hydroxide (Milk Of Mag) 30 ml HS PRN PO .CONSTIPATION; Start 12/05/18 at 21:30 Bisacodyl (Dulcolax Supp) 10 mg DAILY PRN [place] .CONSTIPATION; Start 12/05/18 at 21:30 Sodium Biphosphate/ Sodium Phosphate (Fleet Enema) 133 ml DAILY PRN [place] .CONSTIPATION; Start 12/05/18 at 21:30 Diphenhydramine HCl (Benadryl) 25 mg Q4H PRN IV .ITCHING; Start 12/05/18 at 21:30 Naloxone HCl (Narcan) 0.2 mg Q2M PRN IV .RESP RATE; Start 12/05/18 at 21:30 Bethanechol Chloride (Urecholine) 25 mg URINARY CATH D/C PRN PO UNABLE TO VOID; Start 12/05/18 at 21:30 Aspirin (Halfprin) 81 mg BID PO Last administered on 01/15/19 09:18; Admin Dose 81 MG; Start 12/06/18 at 09:00 Nystatin (Nystatin Powder) 1 applic BID TOP Last administered on 01/15/19 09:22; Admin Dose 1 APPLIC; Start 12/12/18 at 21:00 Albuterol (Proventil 0.083% (Neb)) 2.5 mg Q2H RESP THERAPY PRN HHN SHORTNESS OF BREATH; Start 12/15/18 at 12:00 Gabapentin (Neurontin) 300 mg TID PO Last administered on 01/15/19 12:50; Admin Dose 300 MG; Start 12/22/18 at 13:00 Methocarbamol (Robaxin) 750 mg TID PO Last administered on 01/15/19 12:53; Admin Dose 750 MG; Start 12/28/18 at 13:00 Linezolid (Zyvox) 600 mg BID PO Last administered on 01/15/19 09:18; Admin Dose 600 MG; Start 12/28/18 at 15:00 Acetaminophen (Tylenol Tab) 1,000 mg Q6 PRN PO pain Last administered on 01/14/19 11:59; Admin Dose 1,000 MG; Start 12/28/18 at 21:30 Alteplase, Recombinant (Cathflo (Activase)) 2 mg MAY REPEAT X1 PRN CATHETER IF CATHETER REMAINS OCCULUDED Last administered on 12/29/18 16:53; Admin Dose 2 MG; Start 12/29/18 at 16:00 Lidocaine (Lidoderm) 1 patch DAILY TD Last administered on 01/15/19 09:22; Admin Dose 1 PATCH; Start 01/06/19 at 09:00 Sodium Hypochlorite (Dakins Diluted ()) 1 applic BID TP Last administered on 01/15/19 09:22; Admin Dose 1 APPLIC; Start 01/06/19 at 12:03 Cefepime HCl 50 ml @ 100 mls/hr Q12 IVPB Last administered on 01/15/19 09:15; Admin Dose 100 MLS/HR; Start 01/07/19 at 21:00 Collagenase (Santyl) 1 applic BID TOP Last administered on 01/15/19 09:15; Admin Dose 1 APPLIC; Start 01/07/19 at 21:00 Fluconazole (Diflucan) 100 mg DAILY PO Last administered on 01/15/19 09:19; Admin Dose 100 MG; Start 01/13/19 at 11:30 TERESA COSBY January 15, 2019 14:26
[2019-01-15 20:30] VITALS: BP 99/53; PULSE 85; RESP 18
[2019-01-16] MEDS: oxyCODONE 5 MG TAB PO PRN ×2 (02:22→23:25)
[2019-01-16 02:28] VITALS: BP 111/58; PULSE 80; RESP 18
[2019-01-16] MEDS: LEVOTHYROXINE 100 MCG TAB PO SCH (07:41)
[2019-01-16] MEDS: PANTOPRAZOLE (EC) 40 MG TAB PO SCH (07:41)
[2019-01-16 07:57] VITALS: BP 99/56; PULSE 95; RESP 18
[2019-01-16] MEDS: SENNA TAB PO SCH ×2 (09:00→21:00)
[2019-01-16] MEDS: NYSTATIN 30 GM POWDER BTL TOP SCH ×2 (09:00→21:00)
[2019-01-16] MEDS: POLYETHYLENE GLYCOL 17 GM PACKET PO SCH (09:00)
[2019-01-16] MEDS: LISINOPRIL 5 MG TAB PO SCH (09:00)
[2019-01-16] MEDS: BUPROPION (XL) 150 MG TAB PO SCH (10:13)
[2019-01-16] MEDS: FLUCONAZOLE 100 MG TAB PO SCH (10:13)
[2019-01-16] MEDS: VITAMIN B COMPLEX/VIT C CAP PO SCH (10:14)
[2019-01-16] MEDS: FISH OIL 1,000 MG CAP PO SCH (10:14)
[2019-01-16] MEDS: BALSAM PERU/CASTOR OIL 60 GM TUBE TOP SCH ×2 (10:14→21:59)
[2019-01-16] MEDS: COLLAGENASE 5 GM (UD JAR) TOP SCH ×2 (10:14→21:59)
[2019-01-16] MEDS: METHOCARBAMOL 750 MG TAB PO SCH ×3 (10:14→21:59)
[2019-01-16] MEDS: CHOLECALCIFEROL 1,000 UNIT TAB PO SCH (10:14)
[2019-01-16] MEDS: ASPIRIN (EC) 81 MG TAB PO SCH ×2 (10:15→21:59)
[2019-01-16] MEDS: ASCORBIC ACID 500 MG TAB PO SCH ×2 (10:15→22:00)
[2019-01-16] MEDS: GABAPENTIN 300 MG CAP PO SCH ×3 (10:15→21:59)
[2019-01-16] MEDS: MULTIVITAMINS THERAPEUTIC TAB PO SCH (10:15)
[2019-01-16] MEDS: CEFEPIME 1GM/50 ML (PMX) 50 ML IVPB SCH ×2 (10:16→22:00)
[2019-01-16] MEDS: LIDOCAINE 5% PATCH TD SCH (10:18)
[2019-01-16] MEDS: DAKINS 0.0125%(1/40) 473 ML SOLUTION TP SCH ×2 (11:02→21:59)
--- NOTE | 2019-01-16 12:11 | CONS ---
Assessment/Plan Assessment/Plan Hospital Course (Demo Recall) All noted, no events mp fevers Antimicrobials: Cefepime, Zyvox fluconazole Microbiology: Blood culture on admission grew strep, urine culture grew E. coli, MRSA swab negative, repeat blood cultures negative. Sacral wound cx + VRE/Proteus/Strep/Marita 2D echo revealed no vegetations Physical examination: This is well-developed well-nourished elderly woman who is alert in no distress. Head atraumatic normocephalic neck is supple. Chest rise symmetrical breath sounds clear. Heart: S1-S2. Abdomen soft, bowel tones present. Extremities wnl Assessment: 1. 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 Status post sepsis 3. S/p streptococcal bacteremia 2 to #4 4. 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 S/p urinary tract infection 6. History of left total knee replacement 7. History of multilevel discectomy and posterior fusion from L1-L3, please see CT in the chart Plan: Remains stable, repeat wound cx + yeast, ok dc isolation, continue on current abx for 5 more weeks to treat OM, may change PO Zyvox to IV Daptomycin Consultation Date/Type/Reason Admit Date/Time Dec 01, 2018 at 19:24 Initial Consult Date Type of Consult id Requesting Provider: TERESA COSBY Date/Time of Note DATE: 01/16/19 TIME: 12:11 Exam/Review of Systems Exam Vitals Vital Signs Date Temp Pulse Resp B/P (MAP) Pulse Ox O2 O2 Flow FiO2 Time Delivery Rate 01/16/19 98.2 95 18 99/56 (70) 95 Room Air 07:57 Intake and Output 01/15/19 01/15/19 01/16/19 1515:00 23:00 07:00 IntakeIntake Total 650 ml 250 ml 240 ml BalanceBalance 650 ml 250 ml 240 ml Medications Medication Current Medications Albuterol (Ventolin Hfa) 2 puff Q4H PRN INH WHEEZING AND SOB; Start 12/01/18 at 21:00; Status Hold Ascorbic Acid (Vitamin C) 500 mg BID PO Last administered on 01/16/19at 10:15; Admin Dose 500 MG; Start 12/01/18 at 21:00 Bupropion HCl (Wellbutrin Xl) 300 mg DAILY PO Last administered on 01/16/19 10:13; Admin Dose 300 MG; Start 12/02/18 at 09:00 Cholecalciferol (Vitamin D) 1,000 unit DAILY PO Last administered on 01/16/19 10:14; Admin Dose 1,000 UNIT; Start 12/02/18 at 09:00 Diclofenac Sodium (Voltaren 1% Gel) 2 gm TID PRN TP PAIN; Start 12/01/18 at 21:00 Levothyroxine Sodium (Synthroid) 100 mcg BEFORE BREAKFAST PO Last administered on 01/16/19 07:41; Admin Dose 100 MCG; Start 12/02/18 at 07:00 Lisinopril (Zestril) 5 mg DAILY PO Last administered on 01/15/19 09:21; Admin Dose 5 MG; Start 12/02/18 at 09:00 Multivitamins Therapeutic (Theragran) 1 tab DAILY PO Last administered on 01/16/19 10:15; Admin Dose 1 TAB; Start 12/02/18 at 09:00 Polyethylene Glycol (Miralax) 17 gm DAILY PO Last administered on 12/29/18 08:33; Admin Dose 17 GM; Start 12/02/18 at 09:00 Senna (Senokot) 1 tab BID PO Last administered on 01/13/19 21:34; Admin Dose 1 TAB; Start 12/01/18 at 21:00 Vitamin B Complex/ Vitamin C (Berocca) 1 cap DAILY PO Last administered on 01/16/19 10:14; Admin Dose 1 CAP; Start 12/02/18 at 09:00 Fish Oil (Fish Oil) 1,000 mg DAILY PO Last administered on 01/16/19 10:14; Admin Dose 1,000 MG; Start 12/02/18 at 09:00 Docusate Sodium (Colace) 100 mg Q12H PRN PO .CONSTIPATION; Start 12/01/18 at 22:00 Bisacodyl (Dulcolax) 5 mg DAILY PRN PO .CONSTIPATION; Start 12/01/18 at 22:00 Lidocaine (Xylocaine 1% (Mpf)) 30 ml ONCE PRN INJ aspiration ; Start 12/04/18 at 17:30 IV Flush (NS 3 ml) 3 ml PER PROTOCOL IV ; Start 12/05/18 at 21:30 Oxycodone HCl (Roxicodone) 15 mg Q4H PRN PO .PAIN Last administered on 12/30/18 13:42; Admin Dose 5 MG; Start 12/05/18 at 21:30 Oxycodone HCl (Roxicodone) 10 mg Q4H PRN PO .PAIN Last administered on 01/16/19 02:22; Admin Dose 10 MG; Start 12/05/18 at 21:30 Oxycodone HCl (Roxicodone) 5 mg Q4H PRN PO .PAIN Last administered on 01/14/19 04:43; Admin Dose 5 MG; Start 12/05/18 at 21:30 Hydromorphone HCl (Dilaudid) 1 mg Q3H PRN IV .BREAKTHROUGH PAIN Last administered on 12/06/18 06:58; Admin Dose 1 MG; Start 12/05/18 at 21:30 Ondansetron HCl (Zofran Inj) 4 mg Q4H PRN IV NAUSEA/VOMITING; Start 12/06/18 at 21:30 Pantoprazole (Protonix Tab) 40 mg DAILY@06 PO Last administered on 01/16/19 07:41; Admin Dose 40 MG; Start 12/07/18 at 06:00 Simethicone (Mylicon) 80 mg TID PRN PO .GAS; Start 12/05/18 at 21:30 Senna/Docusate Sodium (Senokot-S) 2 tab BID PRN PO .CONSTIPATION Last administered on 12/06/18 08:54; Admin Dose 2 TAB; Start 12/05/18 at 21:30 Magnesium Hydroxide (Milk Of Mag) 30 ml HS PRN PO .CONSTIPATION; Start 12/05/18 at 21:30 Bisacodyl (Dulcolax Supp) 10 mg DAILY PRN [place] .CONSTIPATION; Start 12/05/18 at 21:30 Sodium Biphosphate/ Sodium Phosphate (Fleet Enema) 133 ml DAILY PRN [place] .CONSTIPATION; Start 12/05/18 at 21:30 Diphenhydramine HCl (Benadryl) 25 mg Q4H PRN IV .ITCHING; Start 12/05/18 at 21:30 Naloxone HCl (Narcan) 0.2 mg Q2M PRN IV .RESP RATE; Start 12/05/18 at 21:30 Bethanechol Chloride (Urecholine) 25 mg URINARY CATH D/C PRN PO UNABLE TO VOID; Start 12/05/18 at 21:30 Aspirin (Halfprin) 81 mg BID PO Last administered on 01/16/19 10:15; Admin Dose 81 MG; Start 12/06/18 at 09:00 Nystatin (Nystatin Powder) 1 applic BID TOP Last administered on 01/15/19 09:22; Admin Dose 1 APPLIC; Start 12/12/18 at 21:00 Albuterol (Proventil 0.083% (Neb)) 2.5 mg Q2H RESP THERAPY PRN HHN SHORTNESS OF BREATH; Start 12/15/18 at 12:00 Gabapentin (Neurontin) 300 mg TID PO Last administered on 01/16/19 10:15; Admin Dose 300 MG; Start 12/22/18 at 13:00 Methocarbamol (Robaxin) 750 mg TID PO Last administered on 01/16/19 10:14; Admin Dose 750 MG; Start 12/28/18 at 13:00 Linezolid (Zyvox) 600 mg BID PO Last administered on 01/15/19 20:29; Admin Dose 600 MG; Start 12/28/18 at 15:00 Acetaminophen (Tylenol Tab) 1,000 mg Q6 PRN PO pain Last administered on 01/14/19 11:59; Admin Dose 1,000 MG; Start 12/28/18 at 21:30 Alteplase, Recombinant (Cathflo (Activase)) 2 mg MAY REPEAT X1 PRN CATHETER IF CATHETER REMAINS OCCULUDED Last administered on 12/29/18 16:53; Admin Dose 2 MG; Start 12/29/18 at 16:00 Lidocaine (Lidoderm) 1 patch DAILY TD Last administered on 01/16/19 10:18; Admin Dose 1 PATCH; Start 01/06/19 at 09:00 Sodium Hypochlorite (Dakins Diluted ()) 1 applic BID TP Last administered on 01/16/19 11:02; Admin Dose 1 APPLIC; Start 01/06/19 at 12:03 Cefepime HCl 50 ml @ 100 mls/hr Q12 IVPB Last administered on 01/16/19 10:16; Admin Dose 100 MLS/HR; Start 01/07/19 at 21:00 Collagenase (Santyl) 1 applic BID TOP Last administered on 01/16/19at 10:14; Admin Dose 1 APPLIC; Start 01/07/19 at 21:00 Fluconazole (Diflucan) 100 mg DAILY PO Last administered on 01/16/19at 10:13; Admin Dose 100 MG; Start 01/13/19 at 11:30 OZZIE SOLOMON NP January 16, 2019 12:11
[2019-01-16] MEDS: ZYVOX 600 MG TAB PO SCH ×2 (12:29→21:59)
--- NOTE | 2019-01-16 13:02 | CONS ---
Assessment/Plan Assessment/Plan Hospital Course (Demo Recall) Preoperative cardiac risk stratification Septic arthritis status post surgery 12/05/2018 Preserved ejection fraction Hypertension -Blood pressure trend slightly on the lower side -We will decrease lisinopril dose, will add holding parameters Consultation Date/Type/Reason Admit Date/Time Dec 01, 2018 at 19:24 Initial Consult Date 12/04/18 Type of Consult Cardiology Requesting Provider: TERESA COSBY Date/Time of Note DATE: 01/16/19 TIME: 13:01 24 HR Interval Summary Free Text/Dictation Denies shortness of breath, chest pain Exam/Review of Systems Vital Signs Vitals Vital Signs Date Temp Pulse Resp B/P (MAP) Pulse Ox O2 O2 Flow FiO2 Time Delivery Rate 01/16/19 98.2 95 18 99/56 (70) 95 Room Air 07:57 Intake and Output 01/15/19 01/15/19 01/16/19 1515:00 23:00 07:00 IntakeIntake Total 650 ml 250 ml 240 ml BalanceBalance 650 ml 250 ml 240 ml Exam Constitutional: alert, oriented (Ambulating with physical therapy) Head: normocephalic Respiratory: clear to auscultation, normal air movement Cardiovascular: regular rate and rhythm (S1-S2 heard) Gastrointestinal: soft, non-tender, bowel sounds Extremities: edema (Trace) Medications Medications Current Medications Albuterol (Ventolin Hfa) 2 puff Q4H PRN INH WHEEZING AND SOB; Start 12/01/18 at 21:00; Status Hold Ascorbic Acid (Vitamin C) 500 mg BID PO Last administered on 01/16/19at 10:15; Admin Dose 500 MG; Start 12/01/18 at 21:00 Bupropion HCl (Wellbutrin Xl) 300 mg DAILY PO Last administered on 01/16/19at 10:13; Admin Dose 300 MG; Start 12/02/18 at 09:00 Cholecalciferol (Vitamin D) 1,000 unit DAILY PO Last administered on 01/16/19at 10:14; Admin Dose 1,000 UNIT; Start 12/02/18 at 09:00 Diclofenac Sodium (Voltaren 1% Gel) 2 gm TID PRN TP PAIN; Start 12/01/18 at 21:00 Levothyroxine Sodium (Synthroid) 100 mcg BEFORE BREAKFAST PO Last administered on 5/9/19at 07:41; Admin Dose 100 MCG; Start 12/02/18 at 07:00 Lisinopril (Zestril) 5 mg DAILY PO Last administered on 01/15/19 09:21; Admin Dose 5 MG; Start 12/02/18 at 09:00 Multivitamins Therapeutic (Theragran) 1 tab DAILY PO Last administered on 01/16/19 10:15; Admin Dose 1 TAB; Start 12/02/18 at 09:00 Polyethylene Glycol (Miralax) 17 gm DAILY PO Last administered on 12/29/18 08:33; Admin Dose 17 GM; Start 12/02/18 at 09:00 Senna (Senokot) 1 tab BID PO Last administered on 01/13/19 21:34; Admin Dose 1 TAB; Start 12/01/18 at 21:00 Vitamin B Complex/ Vitamin C (Berocca) 1 cap DAILY PO Last administered on 01/16/19 10:14; Admin Dose 1 CAP; Start 12/02/18 at 09:00 Fish Oil (Fish Oil) 1,000 mg DAILY PO Last administered on 01/16/19 10:14; Admin Dose 1,000 MG; Start 12/02/18 at 09:00 Docusate Sodium (Colace) 100 mg Q12H PRN PO .CONSTIPATION; Start 12/01/18 at 22:00 Bisacodyl (Dulcolax) 5 mg DAILY PRN PO .CONSTIPATION; Start 12/01/18 at 22:00 Lidocaine (Xylocaine 1% (Mpf)) 30 ml ONCE PRN INJ aspiration ; Start 12/04/18 at 17:30 IV Flush (NS 3 ml) 3 ml PER PROTOCOL IV ; Start 12/05/18 at 21:30 Oxycodone HCl (Roxicodone) 15 mg Q4H PRN PO .PAIN Last administered on 12/30/18 13:42; Admin Dose 5 MG; Start 12/05/18 at 21:30 Oxycodone HCl (Roxicodone) 10 mg Q4H PRN PO .PAIN Last administered on 01/16/19 02:22; Admin Dose 10 MG; Start 12/05/18 at 21:30 Oxycodone HCl (Roxicodone) 5 mg Q4H PRN PO .PAIN Last administered on 01/14/19 04:43; Admin Dose 5 MG; Start 12/05/18 at 21:30 Hydromorphone HCl (Dilaudid) 1 mg Q3H PRN IV .BREAKTHROUGH PAIN Last administered on 12/06/18 06:58; Admin Dose 1 MG; Start 12/05/18 at 21:30 Ondansetron HCl (Zofran Inj) 4 mg Q4H PRN IV NAUSEA/VOMITING; Start 12/06/18 at 21:30 Pantoprazole (Protonix Tab) 40 mg DAILY@06 PO Last administered on 01/16/19 07:41; Admin Dose 40 MG; Start 12/07/18 at 06:00 Simethicone (Mylicon) 80 mg TID PRN PO .GAS; Start 12/05/18 at 21:30 Senna/Docusate Sodium (Senokot-S) 2 tab BID PRN PO .CONSTIPATION Last administered on 12/06/18 08:54; Admin Dose 2 TAB; Start 12/05/18 at 21:30 Magnesium Hydroxide (Milk Of Mag) 30 ml HS PRN PO .CONSTIPATION; Start 12/05/18 at 21:30 Bisacodyl (Dulcolax Supp) 10 mg DAILY PRN [place] .CONSTIPATION; Start 12/05/18 at 21:30 Sodium Biphosphate/ Sodium Phosphate (Fleet Enema) 133 ml DAILY PRN [place] .CONSTIPATION; Start 12/05/18 at 21:30 Diphenhydramine HCl (Benadryl) 25 mg Q4H PRN IV .ITCHING; Start 12/05/18 at 21:30 Naloxone HCl (Narcan) 0.2 mg Q2M PRN IV .RESP RATE; Start 12/05/18 at 21:30 Bethanechol Chloride (Urecholine) 25 mg URINARY CATH D/C PRN PO UNABLE TO VOID; Start 12/05/18 at 21:30 Aspirin (Halfprin) 81 mg BID PO Last administered on 01/16/19 10:15; Admin Dose 81 MG; Start 12/06/18 at 09:00 Nystatin (Nystatin Powder) 1 applic BID TOP Last administered on 01/15/19 09:22; Admin Dose 1 APPLIC; Start 12/12/18 at 21:00 Albuterol (Proventil 0.083% (Neb)) 2.5 mg Q2H RESP THERAPY PRN HHN SHORTNESS OF BREATH; Start 12/15/18 at 12:00 Gabapentin (Neurontin) 300 mg TID PO Last administered on 01/16/19 12:29; Admin Dose 300 MG; Start 12/22/18 at 13:00 Methocarbamol (Robaxin) 750 mg TID PO Last administered on 01/16/19 12:29; Admin Dose 750 MG; Start 12/28/18 at 13:00 Linezolid (Zyvox) 600 mg BID PO Last administered on 01/16/19 12:29; Admin Dose 600 MG; Start 12/28/18 at 15:00 Acetaminophen (Tylenol Tab) 1,000 mg Q6 PRN PO pain Last administered on 01/14/19 11:59; Admin Dose 1,000 MG; Start 12/28/18 at 21:30 Alteplase, Recombinant (Cathflo (Activase)) 2 mg MAY REPEAT X1 PRN CATHETER IF CATHETER REMAINS OCCULUDED Last administered on 12/29/18 16:53; Admin Dose 2 MG; Start 12/29/18 at 16:00 Lidocaine (Lidoderm) 1 patch DAILY TD Last administered on 01/16/19 10:18; Admin Dose 1 PATCH; Start 01/06/19 at 09:00 Sodium Hypochlorite (Dakins Diluted (1/40)) 1 applic BID TP Last administered on 01/16/19 11:02; Admin Dose 1 APPLIC; Start 01/06/19 at 12:03 Cefepime HCl 50 ml @ 100 mls/hr Q12 IVPB Last administered on 01/16/19 10:16; Admin Dose 100 MLS/HR; Start 01/07/19 at 21:00 Collagenase (Santyl) 1 applic BID TOP Last administered on 01/16/19 10:14; Admin Dose 1 APPLIC; Start 01/07/19 at 21:00 Fluconazole (Diflucan) 100 mg DAILY PO Last administered on 01/16/19 10:13; Admin Dose 100 MG; Start 01/13/19 at 11:30 Martin Kelley DO January 16, 2019 13:02
[2019-01-16 13:31] VITALS: BP 123/63; PULSE 92; RESP 18
--- NOTE | 2019-01-16 13:50 | PN ---
Date/Time of Note Date/Time of Note DATE: 01/16/19 TIME: 13:48 Assessment/Plan Lines/Catheters IV Catheter Type (from [facility]): PICC Line Schaeffer in Place (from [facility]): No Assessment/Plan Chief Complaint/Hosp Course 1. Sacral wound: + Wound cultures; status post repeat debridement 01/07/2019; bone pathology noted; soft bone noted during debridement> + osteo; repeat wound cultures noted> now off isolation Sacral coccyx ulcer biopsy:: fragments of bone with overlying cartilage showing bone necrosis and acute osteomyelitis. -cont antibiotics per ID -Repeat debridement as needed > can follow with Dr. Nation at wound care clinic -Continue local care w santyl -frequent turning and off-loading -low air loss mattress -vitamin c -short term zinc -optimize nutrition -dc ok from surgical standpoint 2. Bacteremia: Repeat blood culture: NG 3.Septic right knee joint status post I&D: -Per Ortho 4. Spine disease: Status post spinal surgeries -Supportive 5.UTI: -abx per sensitivity -frequent bladder emptying/cath care 6. Osteoarthritis: -Medical management Thank you. Patient seen and examined in collaboration with Dr. Fernandez Nation Subjective 24 Hr Interval Summary No fevers, chills, sob, congested cough, cp, palpitations, ruano, dizziness, n/v/d/dysuria, no excessive wound drainage/odor. + bowel function. Exam/Review of Systems Vital Signs Vitals Vital Signs Date Temp Pulse Resp B/P (MAP) Pulse Ox O2 O2 Flow FiO2 Time Delivery Rate 01/16/19 98.0 92 18 123/63 99 13:31 (83) 01/16/19 Room Air 07:57 Intake and Output 01/15/19 01/15/19 01/16/19 1414:59 22:59 06:59 IntakeIntake Total 650 ml 250 ml 240 ml BalanceBalance 650 ml 250 ml 240 ml Exam Free Text/Dictation Constitutional: alert, oriented Psych: nl mood/affect; No anxiety Head: normocephalic, atraumatic Eyes: nl conjunctiva, EOMI, nl lids, nl sclera ENMT: nl external ears & nose, nl lips & teeth, nl nasal mucosa & septum, mucosa pink and moist Neck: supple, non-tender; No jvd Respiratory: normal air movement; No congested cough Cardiovascular: regular rate and rhythm, nl pulses; No edema Gastrointestinal: soft, non-tender; No distended Genitourinary - Female: nl external genitalia Musculoskeletal: nl extremities to inspection; No nl gait and stance Extremities: normal pulses Neurological: nl mental status, nl speech, nl strength Skin: nl turgor, other (Sacrum: Minimal Slough, minimal drainage, no odor, minimal periwound erythema-improved) Lymph: nl lymph nodes YESSICA ALAMO NP January 16, 2019 13:50
--- NOTE | 2019-01-16 14:30 | PN ---
Date/Time of Note Date/Time of Note DATE: 01/16/19 TIME: 14:29 Assessment/Plan VTE Prophylaxis Risk score (from Ns)>0 risk: 3 SCD applied (from Ns): Yes Pharmacological prophylaxis: NA/contraindicated Pharm contraindication: low risk/ambulating Lines/Catheters Urinary Cath still in place: No Assessment/Plan Hospital Course 1. Sepsis secondary secondary to decubitus ulcers-resolved - Repeat sacral wound cultures now showing Marita, isolation has been discontinued -Recent blood cultures are negative - ID on board and appreciate recommendations. There were concerns for line infection but blood cultures are currently negative -Continue antibiotics 2. Septic R knee joint s/p I&D on 12/05/18- resolved - remains stable and incision site clean and dry - Continues to work with PT. - Ortho on board and recommendations appreciated. Continue IV antibiotics until 01/14 - pain control 3. Left leg muscle spasm - Robaxin TID - replacing K 4. Sacral wound - repeat cultures now show only Marita -Patient is status post surgical debridement and course of antibiotics -Bone biopsy shows necrosis, negative for malignancy 5. Chronic spinal disease - h/o significant stenosis of her spine. Lumbar spine and thoracic spine CT show signs of stenosis though no acute fractures. - continue lidocaine patch -Patient is not interested in oral or IV narcotics 6. osteoarthritis - pain control 7. urinary tract infection- treated - Cultures grew Ecoli and lactobacillus - asymptomatic 8. Strep Bacteremia - continue current antibiotics - repeat cultures negative 9. Mechanical fall 10. Disposition - on board for SNF placement Subjective 24 Hr Interval Summary Constitutional: no complaints Exam/Review of Systems Exam Vitals Vital Signs Date Temp Pulse Resp B/P (MAP) Pulse Ox O2 O2 Flow FiO2 Time Delivery Rate 01/16/19 98.0 92 18 123/63 99 13:31 (83) 01/16/19 Room Air 07:57 Intake and Output 01/15/19 01/15/19 01/16/19 1515:00 23:00 07:00 IntakeIntake Total 650 ml 250 ml 240 ml BalanceBalance 650 ml 250 ml 240 ml Constitutional: alert, oriented Respiratory: clear to auscultation Cardiovascular: regular rate and rhythm Gastrointestinal: soft; No distended Musculoskeletal: nl extremities to inspection Medications Medication Current Medications Albuterol (Ventolin Hfa) 2 puff Q4H PRN INH WHEEZING AND SOB; Start 12/01/18 at 21:00; Status Hold Ascorbic Acid (Vitamin C) 500 mg BID PO Last administered on 01/16/19 10:15; Admin Dose 500 MG; Start 12/01/18 at 21:00 Bupropion HCl (Wellbutrin Xl) 300 mg DAILY PO Last administered on 01/16/19 10:13; Admin Dose 300 MG; Start 12/02/18 at 09:00 Cholecalciferol (Vitamin D) 1,000 unit DAILY PO Last administered on 01/16/19 10:14; Admin Dose 1,000 UNIT; Start 12/02/18 at 09:00 Diclofenac Sodium (Voltaren 1% Gel) 2 gm TID PRN TP PAIN; Start 12/01/18 at 21:00 Levothyroxine Sodium (Synthroid) 100 mcg BEFORE BREAKFAST PO Last administered on 01/16/19 07:41; Admin Dose 100 MCG; Start 12/02/18 at 07:00 Multivitamins Therapeutic (Theragran) 1 tab DAILY PO Last administered on 01/16/19 10:15; Admin Dose 1 TAB; Start 12/02/18 at 09:00 Polyethylene Glycol (Miralax) 17 gm DAILY PO Last administered on 12/29/18 08:33; Admin Dose 17 GM; Start 12/02/18 at 09:00 Senna (Senokot) 1 tab BID PO Last administered on 01/13/19 21:34; Admin Dose 1 TAB; Start 12/01/18 at 21:00 Vitamin B Complex/ Vitamin C (Berocca) 1 cap DAILY PO Last administered on 01/16/19 10:14; Admin Dose 1 CAP; Start 12/02/18 at 09:00 Fish Oil (Fish Oil) 1,000 mg DAILY PO Last administered on 01/16/19 10:14; Admi n Dose 1,000 MG; Start 12/02/18 at 09:00 Docusate Sodium (Colace) 100 mg Q12H PRN PO .CONSTIPATION; Start 12/01/18 at 22:00 Bisacodyl (Dulcolax) 5 mg DAILY PRN PO .CONSTIPATION; Start 12/01/18 at 22:00 Lidocaine (Xylocaine 1% (Mpf)) 30 ml ONCE PRN INJ aspiration ; Start 12/04/18 at 17:30 IV Flush (NS 3 ml) 3 ml PER PROTOCOL IV ; Start 12/05/18 at 21:30 Oxycodone HCl (Roxicodone) 15 mg Q4H PRN PO .PAIN Last administered on 12/30/18 13:42; Admin Dose 5 MG; Start 12/05/18 at 21:30 Oxycodone HCl (Roxicodone) 10 mg Q4H PRN PO .PAIN Last administered on 01/16/19 02:22; Admin Dose 10 MG; Start 12/05/18 at 21:30 Oxycodone HCl (Roxicodone) 5 mg Q4H PRN PO .PAIN Last administered on 01/14/19 04:43; Admin Dose 5 MG; Start 12/05/18 at 21:30 Hydromorphone HCl (Dilaudid) 1 mg Q3H PRN IV .BREAKTHROUGH PAIN Last administered on 12/06/18 06:58; Admin Dose 1 MG; Start 12/05/18 at 21:30 Ondansetron HCl (Zofran Inj) 4 mg Q4H PRN IV NAUSEA/VOMITING; Start 12/06/18 at 21:30 Pantoprazole (Protonix Tab) 40 mg DAILY@06 PO Last administered on 01/16/19 07:41; Admin Dose 40 MG; Start 12/07/18 at 06:00 Simethicone (Mylicon) 80 mg TID PRN PO .GAS; Start 12/05/18 at 21:30 Senna/Docusate Sodium (Senokot-S) 2 tab BID PRN PO .CONSTIPATION Last administered on 12/06/18 08:54; Admin Dose 2 TAB; Start 12/05/18 at 21:30 Magnesium Hydroxide (Milk Of Mag) 30 ml HS PRN PO .CONSTIPATION; Start 12/05/18 at 21:30 Bisacodyl (Dulcolax Supp) 10 mg DAILY PRN [place] .CONSTIPATION; Start 12/05/18 at 21:30 Sodium Biphosphate/ Sodium Phosphate (Fleet Enema) 133 ml DAILY PRN [place] .CONSTIPATION; Start 12/05/18 at 21:30 Diphenhydramine HCl (Benadryl) 25 mg Q4H PRN IV .ITCHING; Start 12/05/18 at 21:30 Naloxone HCl (Narcan) 0.2 mg Q2M PRN IV .RESP RATE; Start 12/05/18 at 21:30 Bethanechol Chloride (Urecholine) 25 mg URINARY CATH D/C PRN PO UNABLE TO VOID; Start 12/05/18 at 21:30 Aspirin (Halfprin) 81 mg BID PO Last administered on 01/16/19 10:15; Admin Dose 81 MG; Start 12/06/18 at 09:00 Nystatin (Nystatin Powder) 1 applic BID TOP Last administered on 01/15/19 09:22; Admin Dose 1 APPLIC; Start 12/12/18 at 21:00 Albuterol (Proventil 0.083% (Neb)) 2.5 mg Q2H RESP THERAPY PRN HHN SHORTNESS OF BREATH; Start 12/15/18 at 12:00 Gabapentin (Neurontin) 300 mg TID PO Last administered on 01/16/19 12:29; Admin Dose 300 MG; Start 12/22/18 at 13:00 Methocarbamol (Robaxin) 750 mg TID PO Last administered on 01/16/19 12:29; Admin Dose 750 MG; Start 12/28/18 at 13:00 Linezolid (Zyvox) 600 mg BID PO Last administered on 01/16/19 12:29; Admin Dose 600 MG; Start 12/28/18 at 15:00 Acetaminophen (Tylenol Tab) 1,000 mg Q6 PRN PO pain Last administered on 01/14/19 11:59; Admin Dose 1,000 MG; Start 12/28/18 at 21:30 Alteplase, Recombinant (Cathflo (Activase)) 2 mg MAY REPEAT X1 PRN CATHETER IF CATHETER REMAINS OCCULUDED Last administered on 12/29/18 16:53; Admin Dose 2 MG; Start 12/29/18 at 16:00 Lidocaine (Lidoderm) 1 patch DAILY TD Last administered on 01/16/19 10:18; Admin Dose 1 PATCH; Start 01/06/19 at 09:00 Sodium Hypochlorite (Dakins Diluted (40)) 1 applic BID TP Last administered on 01/16/19 11:02; Admin Dose 1 APPLIC; Start 01/06/19 at 12:03 Cefepime HCl 50 ml @ 100 mls/hr Q12 IVPB Last administered on 5/9/19at 10:16; Admin Dose 100 MLS/HR; Start 01/07/19 at 21:00 Collagenase (Santyl) 1 applic BID TOP Last administered on 01/16/19at 10:14; Admin Dose 1 APPLIC; Start 01/07/19 at 21:00 Fluconazole (Diflucan) 100 mg DAILY PO Last administered on 01/16/19at 10:13; Admin Dose 100 MG; Start 01/13/19 at 11:30 Lisinopril (Zestril) 2.5 mg DAILY PO ; Start 01/17/19 at 09:00 TERESA COSBY January 16, 2019 14:30
[2019-01-16 19:59] VITALS: BP 117/62; PULSE 90; RESP 20
[2019-01-17 02:26] VITALS: BP 118/60; PULSE 88; RESP 20
[2019-01-17] MEDS: PANTOPRAZOLE (EC) 40 MG TAB PO SCH (05:16)
[2019-01-17] MEDS: LEVOTHYROXINE 100 MCG TAB PO SCH (05:16)
[2019-01-17] MEDS: ACETAMINOPHEN 500 MG TAB PO PRN (05:16)
[2019-01-17 07:24] VITALS: BP 112/56; PULSE 66; RESP 18
[2019-01-17] MEDS: LIDOCAINE 5% PATCH TD SCH (08:56)
[2019-01-17] MEDS: METHOCARBAMOL 750 MG TAB PO SCH ×3 (08:58→21:25)
[2019-01-17] MEDS: VITAMIN B COMPLEX/VIT C CAP PO SCH (08:58)
[2019-01-17] MEDS: BUPROPION (XL) 150 MG TAB PO SCH (08:58)
[2019-01-17] MEDS: ASCORBIC ACID 500 MG TAB PO SCH ×2 (08:58→21:25)
[2019-01-17] MEDS: ZYVOX 600 MG TAB PO SCH ×2 (08:59→21:25)
[2019-01-17] MEDS: FLUCONAZOLE 100 MG TAB PO SCH (08:59)
[2019-01-17] MEDS: FISH OIL 1,000 MG CAP PO SCH (08:59)
[2019-01-17] MEDS: CHOLECALCIFEROL 1,000 UNIT TAB PO SCH (08:59)
[2019-01-17] MEDS: NYSTATIN 30 GM POWDER BTL TOP SCH ×2 (09:00→21:00)
[2019-01-17] MEDS: POLYETHYLENE GLYCOL 17 GM PACKET PO SCH (09:00)
[2019-01-17] MEDS: SENNA TAB PO SCH ×2 (09:00→21:00)
[2019-01-17] MEDS: GABAPENTIN 300 MG CAP PO SCH ×3 (09:03→21:26)
[2019-01-17] MEDS: MULTIVITAMINS THERAPEUTIC TAB PO SCH (09:03)
[2019-01-17] MEDS: COLLAGENASE 5 GM (UD JAR) TOP SCH ×2 (09:04→21:26)
[2019-01-17] MEDS: DAKINS 0.0125%(1/40) 473 ML SOLUTION TP SCH ×2 (09:04→21:28)
[2019-01-17] MEDS: BALSAM PERU/CASTOR OIL 60 GM TUBE TOP SCH ×2 (09:04→21:37)
[2019-01-17] MEDS: ASPIRIN (EC) 81 MG TAB PO SCH ×2 (09:04→21:25)
[2019-01-17] MEDS: CEFEPIME 1GM/50 ML (PMX) 50 ML IVPB SCH ×2 (09:49→21:26)
[2019-01-17] MEDS: LISINOPRIL 5 MG TAB PO SCH (10:02)
--- NOTE | 2019-01-17 11:53 | PN ---
Date/Time of Note Date/Time of Note DATE: 01/17/19 TIME: 11:48 Assessment/Plan Lines/Catheters IV Catheter Type (from [facility]): PICC Line Schaeffer in Place (from [facility]): No Assessment/Plan Chief Complaint/Hosp Course 1. Sacral wound: + Wound cultures; status post repeat debridement 01/07/2019; bone pathology noted; soft bone noted during debridement> + osteo; repeat wound cultures noted> now off isolation Sacral coccyx ulcer biopsy:: fragments of bone with overlying cartilage showing bone necrosis and acute osteomyelitis. -cont antibiotics per ID -Repeat debridement as needed > can follow with Dr. Nation at wound care clinic (discussed again with patient and son today) -Continue local care w santyl -frequent turning and off-loading -low air loss mattress -vitamin c -short term zinc -optimize nutrition -dc ok from surgical standpoint 2. Bacteremia: Repeat blood culture: NG 3.Septic right knee joint status post I&D: -Per Ortho 4. Spine disease: Status post spinal surgeries -Supportive 5.UTI: -abx per sensitivity -frequent bladder emptying/cath care 6. Osteoarthritis: -Medical management Thank you. Patient seen and examined in collaboration with Dr. Fernandez Nation Subjective 24 Hr Interval Summary No fevers, chills, sob, congested cough, cp, palpitations, ruano, dizziness, n/v/d/dysuria, excessive wound drainage/odor. Exam/Review of Systems Vital Signs Vitals Vital Signs Date Temp Pulse Resp B/P (MAP) Pulse Ox O2 O2 Flow FiO2 Time Delivery Rate 01/17/19 98.0 96 18 115/58 97 13:46 (77) 01/17/19 Room Air 02:26 Intake and Output 01/16/19 01/16/19 01/17/19 1515:00 23:00 07:00 IntakeIntake Total 800 ml 450 ml 220 ml BalanceBalance 800 ml 450 ml 220 ml Exam Free Text/Dictation Constitutional: alert, oriented Psych: nl mood/affect; No anxiety Head: normocephalic, atraumatic Eyes: nl conjunctiva, EOMI, nl lids, nl sclera ENMT: nl external ears & nose, nl lips & teeth, nl nasal mucosa & septum, mucosa pink and moist Neck: supple, non-tender; No jvd Respiratory: normal air movement; No congested cough Cardiovascular: regular rate and rhythm, nl pulses; No edema Gastrointestinal: soft, non-tender; No distended Genitourinary - Female: nl external genitalia Musculoskeletal: nl extremities to inspection; No nl gait and stance Extremities: normal pulses Neurological: nl mental status, nl speech, nl strength Skin: nl turgor, other (Sacrum: Minimal Slough, minimal drainage, no odor, minimal periwound erythema-improved) Lymph: nl lymph nodes YESSICA ALAMO NP January 17, 2019 11:53
--- NOTE | 2019-01-17 12:47 | CONS ---
Assessment/Plan Assessment/Plan Hospital Course (Demo Recall) No events Antimicrobials: Cefepime, Zyvox fluconazole Microbiology: Blood culture on admission grew strep, urine culture grew E. coli, MRSA swab negative, repeat blood cultures negative. Sacral wound cx + VRE/Proteus/Strep/Marita 2D echo revealed no vegetations Physical examination: This is well-developed well-nourished elderly woman who is alert in no distress. Head atraumatic normocephalic neck is supple. Chest rise symmetrical breath sounds clear. Heart: S1-S2. Abdomen soft, bowel tones present. Extremities wnl Assessment: 1. 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 Status post sepsis 3. S/p streptococcal bacteremia 2 to #4 4. 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 S/p urinary tract infection 6. History of left total knee replacement 7. History of multilevel discectomy and posterior fusion from L1-L3, please see CT in the chart Plan: Remains stable, repeat wound cx + yeast, ok dc isolation, continue on current abx for 6 weeks to treat OM==> last day 02/19/19, may change PO Zyvox to IV Daptomycin i pt develops thrombocytopenia/leukopenia Consultation Date/Type/Reason Admit Date/Time Dec 01, 2018 at 19:24 Initial Consult Date Type of Consult id Requesting Provider: TERESA COSBY Date/Time of Note DATE: 01/17/19 TIME: 12:44 Exam/Review of Systems Exam Vitals Vital Signs Date Temp Pulse Resp B/P (MAP) Pulse Ox O2 O2 Flow FiO2 Time Delivery Rate 01/17/19 98.5 66 18 112/56 95 07:24 (74) 01/17/19 Room Air 02:26 Intake and Output 01/16/19 01/16/19 01/17/19 1515:00 23:00 07:00 IntakeIntake Total 800 ml 450 ml 220 ml BalanceBalance 800 ml 450 ml 220 ml Medications Medication Current Medications Albuterol (Ventolin Hfa) 2 puff Q4H PRN INH WHEEZING AND SOB; Start 12/01/18 at 21:00; Status Hold Ascorbic Acid (Vitamin C) 500 mg BID PO Last administered on 01/17/19at 08:58; Admin Dose 500 MG; Start 12/01/18 at 21:00 Bupropion HCl (Wellbutrin Xl) 300 mg DAILY PO Last administered on 01/17/19 08:58; Admin Dose 300 MG; Start 12/02/18 at 09:00 Cholecalciferol (Vitamin D) 1,000 unit DAILY PO Last administered on 01/17/19 08:59; Admin Dose 1,000 UNIT; Start 12/02/18 at 09:00 Diclofenac Sodium (Voltaren 1% Gel) 2 gm TID PRN TP PAIN; Start 12/01/18 at 21:00 Levothyroxine Sodium (Synthroid) 100 mcg BEFORE BREAKFAST PO Last administered on 01/17/19 05:16; Admin Dose 100 MCG; Start 12/02/18 at 07:00 Multivitamins Therapeutic (Theragran) 1 tab DAILY PO Last administered on 01/17/19 09:03; Admin Dose 1 TAB; Start 12/02/18 at 09:00 Polyethylene Glycol (Miralax) 17 gm DAILY PO Last administered on 12/29/18 08:33; Admin Dose 17 GM; Start 12/02/18 at 09:00 Senna (Senokot) 1 tab BID PO Last administered on 01/13/19 21:34; Admin Dose 1 TAB; Start 12/01/18 at 21:00 Vitamin B Complex/ Vitamin C (Berocca) 1 cap DAILY PO Last administered on 01/17/19 08:58; Admin Dose 1 CAP; Start 12/02/18 at 09:00 Fish Oil (Fish Oil) 1,000 mg DAILY PO Last administered on 01/17/19 08:59; Admin Dose 1,000 MG; Start 12/02/18 at 09:00 Docusate Sodium (Colace) 100 mg Q12H PRN PO .CONSTIPATION; Start 12/01/18 at 22:00 Bisacodyl (Dulcolax) 5 mg DAILY PRN PO .CONSTIPATION; Start 12/01/18 at 22:00 Lidocaine (Xylocaine 1% (Mpf)) 30 ml ONCE PRN INJ aspiration ; Start 12/04/18 at 17:30 IV Flush (NS 3 ml) 3 ml PER PROTOCOL IV ; Start 12/05/18 at 21:30 Oxycodone HCl (Roxicodone) 15 mg Q4H PRN PO .PAIN Last administered on 13:42; Admin Dose 5 MG; Start 12/05/18 at 21:30 Oxycodone HCl (Roxicodone) 10 mg Q4H PRN PO .PAIN Last administered on 01/16/19 02:22; Admin Dose 10 MG; Start 12/05/18 at 21:30 Oxycodone HCl (Roxicodone) 5 mg Q4H PRN PO .PAIN Last administered on 01/16/19 23:25; Admin Dose 5 MG; Start 12/05/18 at 21:30 Hydromorphone HCl (Dilaudid) 1 mg Q3H PRN IV .BREAKTHROUGH PAIN Last administered on 12/06/18 06:58; Admin Dose 1 MG; Start 12/05/18 at 21:30 Ondansetron HCl (Zofran Inj) 4 mg Q4H PRN IV NAUSEA/VOMITING; Start 12/06/18 at 21:30 Pantoprazole (Protonix Tab) 40 mg DAILY@06 PO Last administered on 01/17/19 05:16; Admin Dose 40 MG; Start 12/07/18 at 06:00 Simethicone (Mylicon) 80 mg TID PRN PO .GAS; Start 12/05/18 at 21:30 Senna/Docusate Sodium (Senokot-S) 2 tab BID PRN PO .CONSTIPATION Last administered on 12/06/18 08:54; Admin Dose 2 TAB; Start 12/05/18 at 21:30 Magnesium Hydroxide (Milk Of Mag) 30 ml HS PRN PO .CONSTIPATION; Start 12/05/18 at 21:30 Bisacodyl (Dulcolax Supp) 10 mg DAILY PRN [place] .CONSTIPATION; Start 12/05/18 at 21:30 Sodium Biphosphate/ Sodium Phosphate (Fleet Enema) 133 ml DAILY PRN [place] .CONSTIPATION; Start 12/05/18 at 21:30 Diphenhydramine HCl (Benadryl) 25 mg Q4H PRN IV .ITCHING; Start 12/05/18 at 21:30 Naloxone HCl (Narcan) 0.2 mg Q2M PRN IV .RESP RATE; Start 12/05/18 at 21:30 Bethanechol Chloride (Urecholine) 25 mg URINARY CATH D/C PRN PO UNABLE TO VOID; Start 12/05/18 at 21:30 Aspirin (Halfprin) 81 mg BID PO Last administered on 01/17/19 09:04; Admin Dose 81 MG; Start 12/06/18 at 09:00 Nystatin (Nystatin Powder) 1 applic BID TOP Last administered on 01/15/19 09:22; Admin Dose 1 APPLIC; Start 12/12/18 at 21:00 Albuterol (Proventil 0.083% (Neb)) 2.5 mg Q2H RESP THERAPY PRN HHN SHORTNESS OF BREATH; Start 12/15/18 at 12:00 Gabapentin (Neurontin) 300 mg TID PO Last administered on 01/17/19 09:03; Admin Dose 300 MG; Start 12/22/18 at 13:00 Methocarbamol (Robaxin) 750 mg TID PO Last administered on 01/17/19 08:58; Admin Dose 750 MG; Start 12/28/18 at 13:00 Linezolid (Zyvox) 600 mg BID PO Last administered on 01/17/19 08:59; Admin Dose 600 MG; Start 12/28/18 at 15:00 Acetaminophen (Tylenol Tab) 1,000 mg Q6 PRN PO pain Last administered on 01/17/19 05:16; Admin Dose 1,000 MG; Start 12/28/18 at 21:30 Alteplase, Recombinant (Cathflo (Activase)) 2 mg MAY REPEAT X1 PRN CATHETER IF CATHETER REMAINS OCCULUDED Last administered on 12/29/18 16:53; Admin Dose 2 MG; Start 12/29/18 at 16:00 Lidocaine (Lidoderm) 1 patch DAILY TD Last administered on 01/17/19 08:56; Admin Dose 1 PATCH; Start 01/06/19 at 09:00 Sodium Hypochlorite (Dakins Diluted (40)) 1 applic BID TP Last administered on 01/17/19 09:04; Admin Dose 1 APPLIC; Start 01/06/19 at 12:03 Cefepime HCl 50 ml @ 100 mls/hr Q12 IVPB Last administered on 01/17/19 09:49; Admin Dose 100 MLS/HR; Start 01/07/19 at 21:00 Collagenase (Santyl) 1 applic BID TOP Last administered on 5/10/19at 09:04; Admin Dose 1 APPLIC; Start 01/07/19 at 21:00 Fluconazole (Diflucan) 100 mg DAILY PO Last administered on 01/17/19at 08:59; Admin Dose 100 MG; Start 01/13/19 at 11:30 Lisinopril (Zestril) 2.5 mg DAILY PO Last administered on 01/17/19at 10:02; Admin Dose 2.5 MG; Start 01/17/19 at 09:00 OZZIE SOLOMON NP January 17, 2019 12:47
--- NOTE | 2019-01-17 13:19 | CONS ---
Assessment/Plan Assessment/Plan Hospital Course (Demo Recall) Preoperative cardiac risk stratification Septic arthritis status post surgery 12/05/2018 Preserved ejection fraction Hypertension -Blood pressure trend improved with lower dose of lisinopril. Would continue with holding parameters Consultation Date/Type/Reason Admit Date/Time Dec 01, 2018 at 19:24 Initial Consult Date 12/04/18 Type of Consult Cardiology Requesting Provider: TERESA COSBY Date/Time of Note DATE: 01/17/19 TIME: 13:18 24 HR Interval Summary Free Text/Dictation No shortness of breath, dizziness Exam/Review of Systems Vital Signs Vitals Vital Signs Date Temp Pulse Resp B/P (MAP) Pulse Ox O2 O2 Flow FiO2 Time Delivery Rate 01/17/19 98.5 66 18 112/56 95 07:24 (74) 01/17/19 Room Air 02:26 Intake and Output 01/16/19 01/16/19 01/17/19 1515:00 23:00 07:00 IntakeIntake Total 800 ml 450 ml 220 ml BalanceBalance 800 ml 450 ml 220 ml Exam Constitutional: alert, oriented (Sitting in chair, no apparent distress) Head: normocephalic Respiratory: other (Coarse breath sounds bilaterally, no wheezing) Cardiovascular: regular rate and rhythm (S1-S2 heard) Gastrointestinal: soft, non-tender, bowel sounds Extremities: other (Trace edema) Medications Medications Current Medications Albuterol (Ventolin Hfa) 2 puff Q4H PRN INH WHEEZING AND SOB; Start 12/01/18 at 21:00; Status Hold Ascorbic Acid (Vitamin C) 500 mg BID PO Last administered on 01/17/19at 08:58; Admin Dose 500 MG; Start 12/01/18 at 21:00 Bupropion HCl (Wellbutrin Xl) 300 mg DAILY PO Last administered on 01/17/19at 08:58; Admin Dose 300 MG; Start 12/02/18 at 09:00 Cholecalciferol (Vitamin D) 1,000 unit DAILY PO Last administered on 01/17/19at 08:59; Admin Dose 1,000 UNIT; Start 12/02/18 at 09:00 Diclofenac Sodium (Voltaren 1% Gel) 2 gm TID PRN TP PAIN; Start 12/01/18 at 21:00 Levothyroxine Sodium (Synthroid) 100 mcg BEFORE BREAKFAST PO Last administered on 01/17/19 05:16; Admin Dose 100 MCG; Start 12/02/18 at 07:00 Multivitamins Therapeutic (Theragran) 1 tab DAILY PO Last administered on 01/17/19 09:03; Admin Dose 1 TAB; Start 12/02/18 at 09:00 Polyethylene Glycol (Miralax) 17 gm DAILY PO Last administered on 12/29/18 08:33; Admin Dose 17 GM; Start 12/02/18 at 09:00 Senna (Senokot) 1 tab BID PO Last administered on 01/13/19 21:34; Admin Dose 1 TAB; Start 12/01/18 at 21:00 Vitamin B Complex/ Vitamin C (Berocca) 1 cap DAILY PO Last administered on 01/17/19 08:58; Admin Dose 1 CAP; Start 12/02/18 at 09:00 Fish Oil (Fish Oil) 1,000 mg DAILY PO Last administered on 01/17/19 08:59; Admin Dose 1,000 MG; Start 12/02/18 at 09:00 Docusate Sodium (Colace) 100 mg Q12H PRN PO .CONSTIPATION; Start 12/01/18 at 22:00 Bisacodyl (Dulcolax) 5 mg DAILY PRN PO .CONSTIPATION; Start 12/01/18 at 22:00 Lidocaine (Xylocaine 1% (Mpf)) 30 ml ONCE PRN INJ aspiration ; Start 12/04/18 at 17:30 IV Flush (NS 3 ml) 3 ml PER PROTOCOL IV ; Start 12/05/18 at 21:30 Oxycodone HCl (Roxicodone) 15 mg Q4H PRN PO .PAIN Last administered on 12/30/18 13:42; Admin Dose 5 MG; Start 12/05/18 at 21:30 Oxycodone HCl (Roxicodone) 10 mg Q4H PRN PO .PAIN Last administered on 01/16/19 02:22; Admin Dose 10 MG; Start 12/05/18 at 21:30 Oxycodone HCl (Roxicodone) 5 mg Q4H PRN PO .PAIN Last administered on 01/16/19 23:25; Admin Dose 5 MG; Start 12/05/18 at 21:30 Hydromorphone HCl (Dilaudid) 1 mg Q3H PRN IV .BREAKTHROUGH PAIN Last administered on 12/06/18at 06:58; Admin Dose 1 MG; Start 12/05/18 at 21:30 Ondansetron HCl (Zofran Inj) 4 mg Q4H PRN IV NAUSEA/VOMITING; Start 12/06/18 at 21:30 Pantoprazole (Protonix Tab) 40 mg DAILY@06 PO Last administered on 01/17/19at 05:16; Admin Dose 40 MG; Start 12/07/18 at 06:00 Simethicone (Mylicon) 80 mg TID PRN PO .GAS; Start 12/05/18 at 21:30 Senna/Docusate Sodium (Senokot-S) 2 tab BID PRN PO .CONSTIPATION Last administered on 12/06/18at 08:54; Admin Dose 2 TAB; Start 12/05/18 at 21:30 Magnesium Hydroxide (Milk Of Mag) 30 ml HS PRN PO .CONSTIPATION; Start 12/05/18 at 21:30 Bisacodyl (Dulcolax Supp) 10 mg DAILY PRN [place] .CONSTIPATION; Start 12/05/18 at 21:30 Sodium Biphosphate/ Sodium Phosphate (Fleet Enema) 133 ml DAILY PRN [place] .CONSTIPATION; Start 12/05/18 at 21:30 Diphenhydramine HCl (Benadryl) 25 mg Q4H PRN IV .ITCHING; Start 12/05/18 at 21:30 Naloxone HCl (Narcan) 0.2 mg Q2M PRN IV .RESP RATE; Start 12/05/18 at 21:30 Bethanechol Chloride (Urecholine) 25 mg URINARY CATH D/C PRN PO UNABLE TO VOID; Start 12/05/18 at 21:30 Aspirin (Halfprin) 81 mg BID PO Last administered on 01/17/19at 09:04; Admin Dose 81 MG; Start 12/06/18 at 09:00 Nystatin (Nystatin Powder) 1 applic BID TOP Last administered on 01/15/19 09 :22; Admin Dose 1 APPLIC; Start 12/12/18 at 21:00 Albuterol (Proventil 0.083% (Neb)) 2.5 mg Q2H RESP THERAPY PRN HHN SHORTNESS OF BREATH; Start 12/15/18 at 12:00 Gabapentin (Neurontin) 300 mg TID PO Last administered on 01/17/19 13:05; Admin Dose 300 MG; Start 12/22/18 at 13:00 Methocarbamol (Robaxin) 750 mg TID PO Last administered on 01/17/19 13:05; Admin Dose 750 MG; Start 12/28/18 at 13:00 Linezolid (Zyvox) 600 mg BID PO Last administered on 01/17/19 08:59; Admin Dose 600 MG; Start 12/28/18 at 15:00 Acetaminophen (Tylenol Tab) 1,000 mg Q6 PRN PO pain Last administered on 01/17/19 05:16; Admin Dose 1,000 MG; Start 12/28/18 at 21:30 Alteplase, Recombinant (Cathflo (Activase)) 2 mg MAY REPEAT X1 PRN CATHETER IF CATHETER REMAINS OCCULUDED Last administered on 12/29/18 16:53; Admin Dose 2 MG; Start 12/29/18 at 16:00 Lidocaine (Lidoderm) 1 patch DAILY TD Last administered on 01/17/19 08:56; Admin Dose 1 PATCH; Start 01/06/19 at 09:00 Sodium Hypochlorite (Dakins Diluted (1/40)) 1 applic BID TP Last administered on 01/17/19 09:04; Admin Dose 1 APPLIC; Start 01/06/19 at 12:03 Cefepime HCl 50 ml @ 100 mls/hr Q12 IVPB Last administered on 01/17/19 09:49; Admin Dose 100 MLS/HR; Start 01/07/19 at 21:00 Collagenase (Santyl) 1 applic BID TOP Last administered on 01/17/19 09:04; Admin Dose 1 APPLIC; Start 01/07/19 at 21:00 Fluconazole (Diflucan) 100 mg DAILY PO Last administered on 01/17/19 08:59; Admin Dose 100 MG; Start 01/13/19 at 11:30 Lisinopril (Zestril) 2.5 mg DAILY PO Last administered on 01/17/19 10:02; Admin Dose 2.5 MG; Start 01/17/19 at 09:00 Martin Kelley DO January 17, 2019 13:19
[2019-01-17 13:46] VITALS: BP 115/58; PULSE 96; RESP 18
--- NOTE | 2019-01-17 14:07 | PN ---
Date/Time of Note Date/Time of Note DATE: 01/17/19 TIME: 14:07 Assessment/Plan VTE Prophylaxis Risk score (from Nsg)>0 risk: 9 Pharmacological prophylaxis: NA/contraindicated Pharm contraindication: low risk/ambulating Lines/Catheters Urinary Cath still in place: No Assessment/Plan Hospital Course 1. Sepsis secondary secondary to decubitus ulcers-resolved - Repeat sacral wound cultures now showing Marita, isolation has been discontinued -Recent blood cultures are negative - ID on board and appreciate recommendations. There were concerns for line infection but blood cultures are currently negative -Continue antibiotics 2. Septic R knee joint s/p I&D on 12/05/18- resolved - remains stable and incision site clean and dry - Continues to work with PT. - Ortho on board and recommendations appreciated. Continue IV antibiotics until 01/14 - pain control 3. Left leg muscle spasm - Robaxin TID - replacing K 4. Sacral wound - repeat cultures now show only Marita -Patient is status post surgical debridement and course of antibiotics -Bone biopsy shows necrosis, negative for malignancy 5. Chronic spinal disease - h/o significant stenosis of her spine. Lumbar spine and thoracic spine CT show signs of stenosis though no acute fractures. - continue lidocaine patch -Patient is not interested in oral or IV narcotics 6. osteoarthritis - pain control 7. urinary tract infection- treated - Cultures grew Ecoli and lactobacillus - asymptomatic 8. Strep Bacteremia - continue current antibiotics - repeat cultures negative 9. Mechanical fall 10. Disposition - CM on board for SNF placement Subjective 24 Hr Interval Summary Constitutional: no complaints Exam/Review of Systems Exam Vitals Vital Signs Date Temp Pulse Resp B/P (MAP) Pulse Ox O2 O2 Flow FiO2 Time Delivery Rate 01/17/19 98.0 96 18 115/58 97 13:46 (77) 01/17/19 Room Air 02:26 Intake and Output 01/16/19 01/16/19 01/17/19 1515:00 23:00 07:00 IntakeIntake Total 800 ml 450 ml 220 ml BalanceBalance 800 ml 450 ml 220 ml Constitutional: alert, oriented Respiratory: clear to auscultation Cardiovascular: regular rate and rhythm Gastrointestinal: soft; No distended Musculoskeletal: nl extremities to inspection Medications Medication Current Medications Albuterol (Ventolin Hfa) 2 puff Q4H PRN INH WHEEZING AND SOB; Start 12/01/18 at 21:00; Status Hold Ascorbic Acid (Vitamin C) 500 mg BID PO Last administered on 01/17/19 08:58; Admin Dose 500 MG; Start 12/01/18 at 21:00 Bupropion HCl (Wellbutrin Xl) 300 mg DAILY PO Last administered on 01/17/19 08:58; Admin Dose 300 MG; Start 12/02/18 at 09:00 Cholecalciferol (Vitamin D) 1,000 unit DAILY PO Last administered on 01/17/19 08:59; Admin Dose 1,000 UNIT; Start 12/02/18 at 09:00 Diclofenac Sodium (Voltaren 1% Gel) 2 gm TID PRN TP PAIN; Start 12/01/18 at 21:00 Levothyroxine Sodium (Synthroid) 100 mcg BEFORE BREAKFAST PO Last administered on 01/17/19 05:16; Admin Dose 100 MCG; Start 12/02/18 at 07:00 Multivitamins Therapeutic (Theragran) 1 tab DAILY PO Last administered on 01/17/19 09:03; Admin Dose 1 TAB; Start 12/02/18 at 09:00 Polyethylene Glycol (Miralax) 17 gm DAILY PO Last administered on 12/29/18 08:33; Admin Dose 17 GM; Start 12/02/18 at 09:00 Senna (Senokot) 1 tab BID PO Last administered on 01/13/19 21:34; Admin Dose 1 TAB; Start 12/01/18 at 21:00 Vitamin B Complex/ Vitamin C (Berocca) 1 cap DAILY PO Last administered on 01/17/19 08:58; Admin Dose 1 CAP; Start 12/02/18 at 09:00 Fish Oil (Fish Oil) 1,000 mg DAILY PO Last administered on 01/17/19 08:59; Admin Dose 1,000 MG; Start 12/02/18 at 09:00 Docusate Sodium (Colace) 100 mg Q12H PRN PO .CONSTIPATION; Start 12/01/18 at 22:00 Bisacodyl (Dulcolax) 5 mg DAILY PRN PO .CONSTIPATION; Start 12/01/18 at 22:00 Lidocaine (Xylocaine 1% (Mpf)) 30 ml ONCE PRN INJ aspiration ; Start 12/04/18 at 17:30 IV Flush (NS 3 ml) 3 ml PER PROTOCOL IV ; Start 12/05/18 at 21:30 Oxycodone HCl (Roxicodone) 15 mg Q4H PRN PO .PAIN Last administered on 12/30/18 13:42; Admin Dose 5 MG; Start 12/05/18 at 21:30 Oxycodone HCl (Roxicodone) 10 mg Q4H PRN PO .PAIN Last administered on 01/16/19 02:22; Admin Dose 10 MG; Start 12/05/18 at 21:30 Oxycodone HCl (Roxicodone) 5 mg Q4H PRN PO .PAIN Last administered on 01/16/19 23:25; Admin Dose 5 MG; Start 12/05/18 at 21:30 Hydromorphone HCl (Dilaudid) 1 mg Q3H PRN IV .BREAKTHROUGH PAIN Last administered on 12/06/18 06:58; Admin Dose 1 MG; Start 12/05/18 at 21:30 Ondansetron HCl (Zofran Inj) 4 mg Q4H PRN IV NAUSEA/VOMITING; Start 12/06/18 at 21:30 Pantoprazole (Protonix Tab) 40 mg DAILY@06 PO Last administered on 01/17/19 05:16; Admin Dose 40 MG; Start 12/07/18 at 06:00 Simethicone (Mylicon) 80 mg TID PRN PO .GAS; Start 12/05/18 at 21:30 Senna/Docusate Sodium (Senokot-S) 2 tab BID PRN PO .CONSTIPATION Last administered on 12/06/18 08:54; Admin Dose 2 TAB; Start 12/05/18 at 21:30 Magnesium Hydroxide (Milk Of Mag) 30 ml HS PRN PO .CONSTIPATION; Start 12/05/18 at 21:30 Bisacodyl (Dulcolax Supp) 10 mg DAILY PRN [place] .CONSTIPATION; Start 12/05/18 at 21:30 Sodium Biphosphate/ Sodium Phosphate (Fleet Enema) 133 ml DAILY PRN [place] .CONSTIPATION; Start 12/05/18 at 21:30 Diphenhydramine HCl (Benadryl) 25 mg Q4H PRN IV .ITCHING; Start 12/05/18 at 21:30 Naloxone HCl (Narcan) 0.2 mg Q2M PRN IV .RESP RATE; Start 12/05/18 at 21:30 Bethanechol Chloride (Urecholine) 25 mg URINARY CATH D/C PRN PO UNABLE TO VOID; Start 12/05/18 at 21:30 Aspirin (Halfprin) 81 mg BID PO Last administered on 01/17/19 09:04; Admin Dose 81 MG; Start 12/06/18 at 09:00 Nystatin (Nystatin Powder) 1 applic BID TOP Last administered on 01/15/19 09:22; Admin Dose 1 APPLIC; Start 12/12/18 at 21:00 Albuterol (Proventil 0.083% (Neb)) 2.5 mg Q2H RESP THERAPY PRN HHN SHORTNESS OF BREATH; Start 12/15/18 at 12:00 Gabapentin (Neurontin) 300 mg TID PO Last administered on 01/17/19 13:05; Admin Dose 300 MG; Start 12/22/18 at 13:00 Methocarbamol (Robaxin) 750 mg TID PO Last administered on 01/17/19 13:05; Admin Dose 750 MG; Start 12/28/18 at 13:00 Linezolid (Zyvox) 600 mg BID PO Last administered on 01/17/19 08:59; Admin Dose 600 MG; Start 12/28/18 at 15:00 Acetaminophen (Tylenol Tab) 1,000 mg Q6 PRN PO pain Last administered on 01/17/19 05:16; Admin Dose 1,000 MG; Start 12/28/18 at 21:30 Alteplase, Recombinant (Cathflo (Activase)) 2 mg MAY REPEAT X1 PRN CATHETER IF CATHETER REMAINS OCCULUDED Last administered on 12/29/18 16:53; Admin Dose 2 MG; Start 12/29/18 at 16:00 Lidocaine (Lidoderm) 1 patch DAILY TD Last administered on 01/17/19 08:56; Admin Dose 1 PATCH; Start 01/06/19 at 09:00 Sodium Hypochlorite (Dakins Diluted (40)) 1 applic BID TP Last administered on 01/17/19 09:04; Admin Dose 1 APPLIC; Start 01/06/19 at 12:03 Cefepime HCl 50 ml @ 100 mls/hr Q12 IVPB Last administered on 01/17/19 09:49; Admin Dose 100 MLS/HR; Start 01/07/19 at 21:00 Collagenase (Santyl) 1 applic BID TOP Last administered on 01/17/19at 09:04; Admin Dose 1 APPLIC; Start 01/07/19 at 21:00 Fluconazole (Diflucan) 100 mg DAILY PO Last administered on 01/17/19at 08:59; Admin Dose 100 MG; Start 01/13/19 at 11:30 Lisinopril (Zestril) 2.5 mg DAILY PO Last administered on 01/17/19at 10:02; Admin Dose 2.5 MG; Start 01/17/19 at 09:00 TERESA COSBY January 17, 2019 14:07
[2019-01-17 19:25] VITALS: BP 102/59; PULSE 97; RESP 18
[2019-01-17] MEDS ORDERED: ALTEPLASE (CATHFLO) 2 MG INJ CATHETER ONE (20:00)
[2019-01-18] MEDS: ACETAMINOPHEN 500 MG TAB PO PRN ×2 (00:45→15:17)
[2019-01-18 02:15] VITALS: BP 116/57; PULSE 78; RESP 18
[2019-01-18 07:22] VITALS: BP 106/56; PULSE 73; RESP 18
[2019-01-18] MEDS: PANTOPRAZOLE (EC) 40 MG TAB PO SCH (07:48)
[2019-01-18] MEDS: LEVOTHYROXINE 100 MCG TAB PO SCH (07:48)
[2019-01-18] MEDS: SENNA TAB PO SCH (09:00)
[2019-01-18] MEDS: NYSTATIN 30 GM POWDER BTL TOP SCH ×2 (09:00→21:00)
[2019-01-18] MEDS: POLYETHYLENE GLYCOL 17 GM PACKET PO SCH (09:00)
[2019-01-18] MEDS: LISINOPRIL 5 MG TAB PO SCH (09:00)
[2019-01-18] MEDS: LIDOCAINE 5% PATCH TD SCH ×2 (09:00→20:36)
[2019-01-18] MEDS: DAKINS 0.0125%(1/40) 473 ML SOLUTION TP SCH ×2 (09:39→20:35)
[2019-01-18] MEDS: BALSAM PERU/CASTOR OIL 60 GM TUBE TOP SCH ×2 (09:39→20:35)
[2019-01-18] MEDS: COLLAGENASE 5 GM (UD JAR) TOP SCH ×2 (09:39→20:34)
[2019-01-18] MEDS: CEFEPIME 1GM/50 ML (PMX) 50 ML IVPB SCH ×2 (09:39→20:33)
[2019-01-18] MEDS: BUPROPION (XL) 150 MG TAB PO SCH (09:41)
[2019-01-18] MEDS: ASPIRIN (EC) 81 MG TAB PO SCH ×2 (09:41→20:34)
[2019-01-18] MEDS: GABAPENTIN 300 MG CAP PO SCH ×3 (09:42→20:34)
[2019-01-18] MEDS: ASCORBIC ACID 500 MG TAB PO SCH ×2 (09:42→20:34)
[2019-01-18] MEDS: FISH OIL 1,000 MG CAP PO SCH (09:42)
[2019-01-18] MEDS: CHOLECALCIFEROL 1,000 UNIT TAB PO SCH (09:42)
[2019-01-18] MEDS: ZYVOX 600 MG TAB PO SCH ×2 (09:42→20:34)
[2019-01-18] MEDS: MULTIVITAMINS THERAPEUTIC TAB PO SCH (09:43)
[2019-01-18] MEDS: VITAMIN B COMPLEX/VIT C CAP PO SCH (09:43)
[2019-01-18] MEDS: METHOCARBAMOL 750 MG TAB PO SCH ×3 (09:43→20:34)
[2019-01-18] MEDS: FLUCONAZOLE 100 MG TAB PO SCH (09:53)
[2019-01-18] MEDS ORDERED: SENNA TAB PO PRN (12:30)
[2019-01-18] MEDS ORDERED: POLYETHYLENE GLYCOL 17 GM PACKET PO PRN (12:30)
--- NOTE | 2019-01-18 12:56 | CONS ---
Assessment/Plan Assessment/Plan Hospital Course (Demo Recall) ID PROGRESS NOTE CURRENT ABX: DAY # => ZYVOX + CEFEPIME+ DIFLUCAN POD # -> S/P 01/07/19 Sacral OM==> s/p debridement==> bone patho + osteomyelitis -> S/P 12/05/18 Right knee infected arthroplasty, status post I&D with poly exchange 24H INTERVAL SUMMARY * Resting comfortably, VSS, no fevers,NAD * Chart reviewed MICRO/OTHER * 01/10/19 SACRAL WOUND CX: (+) WOUND CULTURE Final Organism 1 BESSIE ALBICANS QUANTITY 1+ * 12/19/18 + 12/28/18 sacral wound cx (+)VRE & GNR PROTEUS * ``````````````````````````````````````````` * URINE CX (-) * 12/01/18 BCX (+) 2/2 BOTTLES BLOOD CULTURE Final Organism 1 STREP AGALACTIAE - (GROUP B) * 12/01/18 URINE CX: URINE CULTURE Final Organism 1 ESCHERICHIA COLI COLONY COUNT >100,000 CFU/ml Organism 2 LACTOBACILLUS SPECIES COLONY COUNT >100,000 CFU/ml * 12/03/18 SACRAL WOUND: WOUND CULTURE Organism 1 PROTEUS MIRABILIS QUANTITY SCANT GROWTH Organism 2 STREP AGALACTIAE - (GROUP B) QUANTITY SCANT GROWTH Organism 3 MRSA QUANTITY ISOLATED FROM BROTH ONLY P. MIRAB M.I.C. RX --------- --- AMIKACIN <=2 S AMPICILLIN >=32 R CEFEPIME <=1 S CEFOTAXIME I CIPROFLOXACIN >=4 R GENTAMICIN >=16 R LEVOFLOXACIN >=8 R TOBRAMYCIN 8 I TRIMETHOPRIM/SULFAMETHOXAZOLE >=320 R PIPERACILLIN/TAZOBACTAM <=4 S * 12/05/18 RIGHT KNEE CX: TISSUE (BIOPSY) CULTURE Preliminary Organism 1 STREP AGALACTIAE - (GROUP B) QUANTITY 2+ * PHYSICAL EXAMINATION: GENERAL: VSS, NAD HEENT: AT, NC, anicteric, NECK: Supple, CHEST: Equal chest rise bilaterally, without dyspnea on observation HEART: Pulse RRR ABDOMEN: Soft / NT : FC EXTREMITIES: Warm, dry SKIN: No rash, no diaphoresis ID ASSESSMENT 73 yo F admit with: 1. Status post sepsis, present on admission 2. Streptococcal bacteremia 2 to #3 * 2D echo revealed no vegetations 3. Right knee infected arthroplasty, status post I&D with poly exchange 4. Urinary tract infection 5. History of left total knee replacement 6. History of multilevel discectomy and posterior fusion from L1-L3, please see CT in the chart 7. S/P 01/07/19 Sacral OM==> s/p debridement==> bone patho + osteomyelitis (-)MRSA Nares ABX ALLERGIES: None to ABX INVASIVES: PIV CURRENT ABX: DAY # > ZYVOX + CEFEPIME+ DIFLUCAN ID RECOMMENDATIONS/PLAN: 1. Continue current ABX 2. PER ID COTTON SAMPLER Colleague: * "ok dc isolation, continue on current abx for 6 weeks to treat OM==> last day 02/19/19, may change PO Zyvox to IV Daptomycin i pt develops thrombocytopenia/leukopenia." . Consultation Date/Type/Reason Admit Date/Time Dec 01, 2018 at 19:24 Initial Consult Date 12/04/18 Requesting Provider: TERESA COSBY Date/Time of Note DATE: 01/18/19 TIME: 12:49 Exam/Review of Systems Exam Vitals Vital Signs Date Temp Pulse Resp B/P (MAP) Pulse Ox O2 O2 Flow FiO2 Time Delivery Rate 01/18/19 98.5 73 18 106/56 95 07:22 (73) 01/17/19 Room Air 02:26 Intake and Output 01/17/19 01/17/19 01/18/19 1414:59 22:59 06:59 IntakeIntake Total 50 ml 50 ml BalanceBalance 50 ml 50 ml Medications Medication Current Medications Albuterol (Ventolin Hfa) 2 puff Q4H PRN INH WHEEZING AND SOB; Start 12/01/18 at 21:00; Status Hold Ascorbic Acid (Vitamin C) 500 mg BID PO Last administered on 01/18/19at 09:42; Admin Dose 500 MG; Start 12/01/18 at 21:00 Bupropion HCl (Wellbutrin Xl) 300 mg DAILY PO Last administered on 01/18/19at 09:41; Admin Dose 300 MG; Start 12/02/18 at 09:00 Cholecalciferol (Vitamin D) 1,000 unit DAILY PO Last administered on 01/18/19 09:42; Admin Dose 1,000 UNIT; Start 12/02/18 at 09:00 Diclofenac Sodium (Voltaren 1% Gel) 2 gm TID PRN TP PAIN; Start 12/01/18 at 21:00 Levothyroxine Sodium (Synthroid) 100 mcg BEFORE BREAKFAST PO Last administered on 01/18/19 07:48; Admin Dose 100 MCG; Start 12/02/18 at 07:00 Multivitamins Therapeutic (Theragran) 1 tab DAILY PO Last administered on 01/18/19 09:43; Admin Dose 1 TAB; Start 12/02/18 at 09:00 Vitamin B Complex/ Vitamin C (Berocca) 1 cap DAILY PO Last administered on 01/18/19 09:43; Admin Dose 1 CAP; Start 12/02/18 at 09:00 Fish Oil (Fish Oil) 1,000 mg DAILY PO Last administered on 01/18/19 09:42; Admin Dose 1,000 MG; Start 12/02/18 at 09:00 Docusate Sodium (Colace) 100 mg Q12H PRN PO .CONSTIPATION; Start 12/01/18 at 22:00 Bisacodyl (Dulcolax) 5 mg DAILY PRN PO .CONSTIPATION; Start 12/01/18 at 22:00 Lidocaine (Xylocaine 1% (Mpf)) 30 ml ONCE PRN INJ aspiration ; Start 12/04/18 at 17:30 IV Flush (NS 3 ml) 3 ml PER PROTOCOL IV ; Start 12/05/18 at 21:30 Oxycodone HCl (Roxicodone) 15 mg Q4H PRN PO .PAIN Last administered on 12/30/18 13:42; Admin Dose 5 MG; Start 12/05/18 at 21:30 Oxycodone HCl (Roxicodone) 10 mg Q4H PRN PO .PAIN Last administered on 01/16/19 02:22; Admin Dose 10 MG; Start 12/05/18 at 21:30 Oxycodone HCl (Roxicodone) 5 mg Q4H PRN PO .PAIN Last administered on 01/16/19 23:25; Admin Dose 5 MG; Start 12/05/18 at 21:30 Hydromorphone HCl (Dilaudid) 1 mg Q3H PRN IV .BREAKTHROUGH PAIN Last administered on 12/06/18 06:58; Admin Dose 1 MG; Start 12/05/18 at 21:30 Ondansetron HCl (Zofran Inj) 4 mg Q4H PRN IV NAUSEA/VOMITING; Start 12/06/18 at 21:30 Pantoprazole (Protonix Tab) 40 mg DAILY@06 PO Last administered on 01/18/19 07:48; Admin Dose 40 MG; Start 12/07/18 at 06:00 Simethicone (Mylicon) 80 mg TID PRN PO .GAS; Start 12/05/18 at 21:30 Senna/Docusate Sodium (Senokot-S) 2 tab BID PRN PO .CONSTIPATION Last administered on 12/06/18 08:54; Admin Dose 2 TAB; Start 12/05/18 at 21:30 Magnesium Hydroxide (Milk Of Mag) 30 ml HS PRN PO .CONSTIPATION; Start 12/05/18 at 21:30 Bisacodyl (Dulcolax Supp) 10 mg DAILY PRN [place] .CONSTIPATION; Start 12/05/18 at 21:30 Sodium Biphosphate/ Sodium Phosphate (Fleet Enema) 133 ml DAILY PRN [place] .CONSTIPATION; Start 12/05/18 at 21:30 Diphenhydramine HCl (Benadryl) 25 mg Q4H PRN IV .ITCHING; Start 12/05/18 at 21:30 Naloxone HCl (Narcan) 0.2 mg Q2M PRN IV .RESP RATE; Start 12/05/18 at 21:30 Bethanechol Chloride (Urecholine) 25 mg URINARY CATH D/C PRN PO UNABLE TO VOID; Start 12/05/18 at 21:30 Aspirin (Halfprin) 81 mg BID PO Last administered on 01/18/19at 09:41; Admin Dose 81 MG; Start 12/06/18 at 09:00 Nystatin (Nystatin Powder) 1 applic BID TOP Last administered on 01/15/19 09:22; Admin Dose 1 APPLIC; Start 12/12/18 at 21:00 Albuterol (Proventil 0.083% (Neb)) 2.5 mg Q2H RESP THERAPY PRN HHN SHORTNESS OF BREATH; Start 12/15/18 at 12:00 Gabapentin (Neurontin) 300 mg TID PO Last administered on 01/18/19 12:27; Admin Dose 300 MG; Start 12/22/18 at 13:00 Methocarbamol (Robaxin) 750 mg TID PO Last administered on 01/18/19 12:27; Admin Dose 750 MG; Start 12/28/18 at 13:00 Linezolid (Zyvox) 600 mg BID PO Last administered on 01/18/19 09:42; Admin Dose 600 MG; Start 12/28/18 at 15:00 Acetaminophen (Tylenol Tab) 1,000 mg Q6 PRN PO pain Last administered on 01/18/19 00:45; Admin Dose 1,000 MG; Start 12/28/18 at 21:30 Alteplase, Recombinant (Cathflo (Activase)) 2 mg MAY REPEAT X1 PRN CATHETER IF CATHETER REMAINS OCCULUDED Last administered on 12/29/18 16:53; Admin Dose 2 MG; Start 12/29/18 at 16:00 Lidocaine (Lidoderm) 1 patch DAILY TD Last administered on 01/17/19 08:56; Admin Dose 1 PATCH; Start 01/06/19 at 09:00 Sodium Hypochlorite (Dakins Diluted (1/40)) 1 applic BID TP Last administered on 01/18/19 09:39; Admin Dose 1 APPLIC; Start 01/06/19 at 12:03 Cefepime HCl 50 ml @ 100 mls/hr Q12 IVPB Last administered on 01/18/19 09:39; Admin Dose 100 MLS/HR; Start 01/07/19 at 21:00 Collagenase (Santyl) 1 applic BID TOP Last administered on 01/18/19 09:39; Admin Dose 1 APPLIC; Start 01/07/19 at 21:00 Fluconazole (Diflucan) 100 mg DAILY PO Last administered on 01/18/19 09:53; Admin Dose 100 MG; Start 01/13/19 at 11:30 Lisinopril (Zestril) 2.5 mg DAILY PO Last administered on 01/17/19 10:02; Admin Dose 2.5 MG; Start 01/17/19 at 09:00 Polyethylene Glycol (Miralax) 17 gm DAILY PRN PO constipation; Start 01/18/19 at 12:30 Senna (Senokot) 1 tab BID PRN PO constipation; Start 01/18/19 at 12:30 Furosemide (Lasix) 20 mg ONCE ONCE IV ; Start 01/18/19 at 13:00; Stop 01/18/19 at 13:01 FAROOQ MATHUR NP January 18, 2019 12:56
[2019-01-18] MEDS ORDERED: FUROSEMIDE 20 MG INJ IV ONE (13:00)
[2019-01-18 14:03] VITALS: BP 117/65; PULSE 83; RESP 18
--- NOTE | 2019-01-18 16:10 | PN ---
Date/Time of Note Date/Time of Note DATE: 01/18/19 TIME: 16:09 Assessment/Plan Lines/Catheters IV Catheter Type (from [facility]): PICC Line Schaeffer in Place (from [facility]): No Assessment/Plan Chief Complaint/Hosp Course 1. Sacral wound: + Wound cultures; status post repeat debridement 01/07/2019; bone pathology noted; soft bone noted during debridement> + osteo; repeat wound cultures noted> now off isolation Sacral coccyx ulcer biopsy:: fragments of bone with overlying cartilage showing bone necrosis and acute osteomyelitis. -cont antibiotics per ID -Repeat debridement as needed > can follow with Dr. Mcmanus at wound care clinic (discussed again with patient and son today) -Continue local care w santyl -frequent turning and off-loading -low air loss mattress -vitamin c -short term zinc -optimize nutrition -dc ok from surgical standpoint 2. Bacteremia: Repeat blood culture: NG 3.Septic right knee joint status post I&D: -Per Ortho 4. Spine disease: Status post spinal surgeries -Supportive 5.UTI: -abx per sensitivity -frequent bladder emptying/cath care 6. Osteoarthritis: -Medical management Thank you Subjective 24 Hr Interval Summary No fevers, chills, sob, congested cough, cp, palpitations, ruano, dizziness, n/v/d/dysuria, excessive wound drainage/odor. Exam/Review of Systems Vital Signs Vitals Vital Signs Date Temp Pulse Resp B/P (MAP) Pulse Ox O2 O2 Flow FiO2 Time Delivery Rate 01/18/19 98.7 83 18 117/65 95 14:03 (82) 01/17/19 Room Air 02:26 Intake and Output 01/17/19 01/17/19 01/18/19 1515:00 23:00 07:00 IntakeIntake Total 100 ml BalanceBalance 100 ml Exam Free Text/Dictation Constitutional: alert, oriented Psych: nl mood/affect; No anxiety Head: normocephalic, atraumatic Eyes: nl conjunctiva, EOMI, nl lids, nl sclera ENMT: nl external ears & nose, nl lips & teeth, nl nasal mucosa & septum, mucosa pink and moist Neck: supple, non-tender; No jvd Respiratory: normal air movement; No congested cough Cardiovascular: regular rate and rhythm, nl pulses; No edema Gastrointestinal: soft, non-tender; No distended Genitourinary - Female: nl external genitalia Musculoskeletal: nl extremities to inspection; No nl gait and stance Extremities: normal pulses Neurological: nl mental status, nl speech, nl strength Skin: nl turgor, other (Sacrum: Minimal Slough, minimal drainage, no odor, minimal periwound erythema-improved) Lymph: nl lymph nodes GABRIELA MCMANUS MD January 18, 2019 16:10
--- NOTE | 2019-01-18 17:13 | PN ---
Date/Time of Note Date/Time of Note DATE: 01/18/19 TIME: 17:12 Assessment/Plan VTE Prophylaxis Risk score (from Nsg)>0 risk: 5 Pharmacological prophylaxis: NA/contraindicated Pharm contraindication: low risk/ambulating Lines/Catheters Urinary Cath still in place: No Assessment/Plan Hospital Course 1. Sepsis secondary secondary to decubitus ulcers-resolved - Repeat sacral wound cultures now showing Marita, isolation has been discontinued -Recent blood cultures are negative - ID on board and appreciate recommendations. There were concerns for line infection but blood cultures are currently negative -Continue antibiotics 2. Septic R knee joint s/p I&D on 12/05/18- resolved - remains stable and incision site clean and dry - Continues to work with PT. - Ortho on board and recommendations appreciated. Continue IV antibiotics until 01/14 - pain control 3. Left leg muscle spasm - Robaxin TID - replacing K 4. Sacral wound - repeat cultures now show only Marita -Patient is status post surgical debridement and course of antibiotics -Bone biopsy shows necrosis, negative for malignancy 5. Chronic spinal disease - h/o significant stenosis of her spine. Lumbar spine and thoracic spine CT show signs of stenosis though no acute fractures. - continue lidocaine patch -Patient is not interested in oral or IV narcotics 6. osteoarthritis - pain control 7. urinary tract infection- treated - Cultures grew Ecoli and lactobacillus - asymptomatic 8. Strep Bacteremia - continue current antibiotics - repeat cultures negative 9. Mechanical fall 10. Mild left foot edema secondary to previous surgery on left leg -Lasix IV x1 -Elevate leg at night Disposition - CM on board for SNF placement Subjective 24 Hr Interval Summary Lymphatic: lymphadema (Left foot) Exam/Review of Systems Exam Vitals Vital Signs Date Temp Pulse Resp B/P (MAP) Pulse Ox O2 O2 Flow FiO2 Time Delivery Rate 01/18/19 98.7 83 18 117/65 95 14:03 (82) 01/17/19 Room Air 02:26 Intake and Output 01/17/19 01/17/19 01/18/19 1515:00 23:00 07:00 IntakeIntake Total 100 ml BalanceBalance 100 ml Constitutional: alert, oriented Respiratory: clear to auscultation Cardiovascular: regular rate and rhythm Gastrointestinal: soft; No distended Extremities: edema Medications Medication Current Medications Albuterol (Ventolin Hfa) 2 puff Q4H PRN INH WHEEZING AND SOB; Start 12/01/18 at 21:00; Status Hold Ascorbic Acid (Vitamin C) 500 mg BID PO Last administered on 01/18/19 09:42; Admin Dose 500 MG; Start 12/01/18 at 21:00 Bupropion HCl (Wellbutrin Xl) 300 mg DAILY PO Last administered on 01/18/19 09:41; Admin Dose 300 MG; Start 12/02/18 at 09:00 Cholecalciferol (Vitamin D) 1,000 unit DAILY PO Last administered on 01/18/19 09:42; Admin Dose 1,000 UNIT; Start 12/02/18 at 09:00 Diclofenac Sodium (Voltaren 1% Gel) 2 gm TID PRN TP PAIN; Start 12/01/18 at 21:00 Levothyroxine Sodium (Synthroid) 100 mcg BEFORE BREAKFAST PO Last administered on 01/18/19 07:48; Admin Dose 100 MCG; Start 12/02/18 at 07:00 Multivitamins Therapeutic (Theragran) 1 tab DAILY PO Last administered on 01/18/19 09:43; Admin Dose 1 TAB; Start 12/02/18 at 09:00 Vitamin B Complex/ Vitamin C (Berocca) 1 cap DAILY PO Last administered on 01/18/19 09:43; Admin Dose 1 CAP; Start 12/02/18 at 09:00 Fish Oil (Fish Oil) 1,000 mg DAILY PO Last administered on 01/18/19 09:42; Admin Dose 1,000 MG; Start 12/02/18 at 09:00 Docusate Sodium (Colace) 100 mg Q12H PRN PO .CONSTIPATION; Start 12/01/18 at 22:00 Bisacodyl (Dulcolax) 5 mg DAILY PRN PO .CONSTIPATION; Start 12/01/18 at 22:00 Lidocaine (Xylocaine 1% (Mpf)) 30 ml ONCE PRN INJ aspiration ; Start 12/04/18 at 17:30 IV Flush (NS 3 ml) 3 ml PER PROTOCOL IV ; Start 12/05/18 at 21:30 Oxycodone HCl (Roxicodone) 15 mg Q4H PRN PO .PAIN Last administered on 12/30/18 13:42; Admin Dose 5 MG; Start 12/05/18 at 21:30 Oxycodone HCl (Roxicodone) 10 mg Q4H PRN PO .PAIN Last administered on 01/16/19 02:22; Admin Dose 10 MG; Start 12/05/18 at 21:30 Oxycodone HCl (Roxicodone) 5 mg Q4H PRN PO .PAIN Last administered on 01/16/19 23:25; Admin Dose 5 MG; Start 12/05/18 at 21:30 Hydromorphone HCl (Dilaudid) 1 mg Q3H PRN IV .BREAKTHROUGH PAIN Last administered on 12/06/18 06:58; Admin Dose 1 MG; Start 12/05/18 at 21:30 Ondansetron HCl (Zofran Inj) 4 mg Q4H PRN IV NAUSEA/VOMITING; Start 12/06/18 at 21:30 Pantoprazole (Protonix Tab) 40 mg DAILY@06 PO Last administered on 01/18/19 07:48; Admin Dose 40 MG; Start 12/07/18 at 06:00 Simethicone (Mylicon) 80 mg TID PRN PO .GAS; Start 12/05/18 at 21:30 Senna/Docusate Sodium (Senokot-S) 2 tab BID PRN PO .CONSTIPATION Last administered on 12/06/18 08:54; Admin Dose 2 TAB; Start 12/05/18 at 21:30 Magnesium Hydroxide (Milk Of Mag) 30 ml HS PRN PO .CONSTIPATION; Start 12/05/18 at 21:30 Bisacodyl (Dulcolax Supp) 10 mg DAILY PRN [place] .CONSTIPATION; Start 12/05/18 at 21:30 Sodium Biphosphate/ Sodium Phosphate (Fleet Enema) 133 ml DAILY PRN [place] .CONSTIPATION; Start 12/05/18 at 21:30 Diphenhydramine HCl (Benadryl) 25 mg Q4H PRN IV .ITCHING; Start 12/05/18 at 21:30 Naloxone HCl (Narcan) 0.2 mg Q2M PRN IV .RESP RATE; Start 12/05/18 at 21:30 Bethanechol Chloride (Urecholine) 25 mg URINARY CATH D/C PRN PO UNABLE TO VOID; Start 12/05/18 at 21:30 Aspirin (Halfprin) 81 mg BID PO Last administered on 01/18/19 09:41; Admin Dose 81 MG; Start 12/06/18 at 09:00 Nystatin (Nystatin Powder) 1 applic BID TOP Last administered on 01/15/19 09:22; Admin Dose 1 APPLIC; Start 12/12/18 at 21:00 Albuterol (Proventil 0.083% (Neb)) 2.5 mg Q2H RESP THERAPY PRN HHN SHORTNESS OF BREATH; Start 12/15/18 at 12:00 Gabapentin (Neurontin) 300 mg TID PO Last administered on 01/18/19 12:27; Admin Dose 300 MG; Start 12/22/18 at 13:00 Methocarbamol (Robaxin) 750 mg TID PO Last administered on 01/18/19 12:27; Admin Dose 750 MG; Start 12/28/18 at 13:00 Linezolid (Zyvox) 600 mg BID PO Last administered on 01/18/19 09:42; Admin Dose 600 MG; Start 12/28/18 at 15:00 Acetaminophen (Tylenol Tab) 1,000 mg Q6 PRN PO pain Last administered on 9at 15:17; Admin Dose 1,000 MG; Start 12/28/18 at 21:30 Alteplase, Recombinant (Cathflo (Activase)) 2 mg MAY REPEAT X1 PRN CATHETER IF CATHETER REMAINS OCCULUDED Last administered on 12/29/18 16:53; Admin Dose 2 MG; Start 12/29/18 at 16:00 Lidocaine (Lidoderm) 1 patch DAILY TD Last administered on 01/17/19 08:56; Admin Dose 1 PATCH; Start 01/06/19 at 09:00 Sodium Hypochlorite (Dakins Diluted (1/40)) 1 applic BID TP Last administered on 01/18/19 09:39; Admin Dose 1 APPLIC; Start 01/06/19 at 12:03 Cefepime HCl 50 ml @ 100 mls/hr Q12 IVPB Last administered on 01/18/19 09:39; Admin Dose 100 MLS/HR; Start 01/07/19 at 21:00 Collagenase (Santyl) 1 applic BID TOP Last administered on 01/18/19 09:39; Admin Dose 1 APPLIC; Start 01/07/19 at 21:00 Fluconazole (Diflucan) 100 mg DAILY PO Last administered on 01/18/19at 09:53; Admin Dose 100 MG; Start 01/13/19 at 11:30 Lisinopril (Zestril) 2.5 mg DAILY PO Last administered on 01/17/19at 10:02; Admin Dose 2.5 MG; Start 01/17/19 at 09:00 Polyethylene Glycol (Miralax) 17 gm DAILY PRN PO constipation; Start 01/18/19 at 12:30 Senna (Senokot) 1 tab BID PRN PO constipation; Start 01/18/19 at 12:30 TERESA COSBY January 18, 2019 17:13
[2019-01-18 19:45] VITALS: BP 108/57; PULSE 83; RESP 20
[2019-01-18] MEDS: oxyCODONE 5 MG TAB PO PRN (21:31)
[2019-01-19] MEDS: ACETAMINOPHEN 500 MG TAB PO PRN (03:29)
[2019-01-19 03:32] VITALS: BP 118/78; RESP 18
[2019-01-19] MEDS: PANTOPRAZOLE (EC) 40 MG TAB PO SCH (05:31)
[2019-01-19] MEDS: LEVOTHYROXINE 100 MCG TAB PO SCH (05:31)
[2019-01-19 07:58] VITALS: BP 127/65; PULSE 67; RESP 14
[2019-01-19] MEDS: NYSTATIN 30 GM POWDER BTL TOP SCH ×2 (09:00→21:00)
[2019-01-19] MEDS: CEFEPIME 1GM/50 ML (PMX) 50 ML IVPB SCH ×2 (09:24→21:10)
[2019-01-19] MEDS: GABAPENTIN 300 MG CAP PO SCH ×3 (09:24→21:04)
[2019-01-19] MEDS: COLLAGENASE 5 GM (UD JAR) TOP SCH ×2 (09:24→21:05)
[2019-01-19] MEDS: MULTIVITAMINS THERAPEUTIC TAB PO SCH (09:24)
[2019-01-19] MEDS: ZYVOX 600 MG TAB PO SCH ×2 (09:25→21:04)
[2019-01-19] MEDS: ASPIRIN (EC) 81 MG TAB PO SCH ×2 (09:25→21:05)
[2019-01-19] MEDS: BUPROPION (XL) 150 MG TAB PO SCH (09:25)
[2019-01-19] MEDS: ASCORBIC ACID 500 MG TAB PO SCH ×2 (09:25→21:04)
[2019-01-19] MEDS: METHOCARBAMOL 750 MG TAB PO SCH ×3 (09:25→21:04)
[2019-01-19] MEDS: VITAMIN B COMPLEX/VIT C CAP PO SCH (09:25)
[2019-01-19] MEDS: FLUCONAZOLE 100 MG TAB PO SCH (09:25)
[2019-01-19] MEDS: CHOLECALCIFEROL 1,000 UNIT TAB PO SCH (09:25)
[2019-01-19] MEDS: LISINOPRIL 5 MG TAB PO SCH (09:25)
[2019-01-19] MEDS: FISH OIL 1,000 MG CAP PO SCH (09:26)
[2019-01-19] MEDS: BALSAM PERU/CASTOR OIL 60 GM TUBE TOP SCH ×2 (09:27→21:11)
[2019-01-19] MEDS: DAKINS 0.0125%(1/40) 473 ML SOLUTION TP SCH ×2 (09:27→21:11)
--- NOTE | 2019-01-19 11:34 | PN ---
Date/Time of Note Date/Time of Note DATE: 01/19/19 TIME: 11:28 Assessment/Plan VTE Prophylaxis Risk score (from Ns)>0 risk: 3 SCD applied (from [facility] [place]): Yes Pharmacological prophylaxis: NA/contraindicated Pharm contraindication: low risk/ambulating Lines/Catheters Urinary Cath still in place: No Assessment/Plan Hospital Course 1. Sepsis secondary secondary to decubitus ulcers and OM-resolved - Repeat sacral wound cultures now showing Marita, isolation has been discontinued -Recent blood cultures are negative - ID on board and appreciate recommendations. There were concerns for line infection but blood cultures are currently negative -Continue antibiotics for sacral OM 2. Septic R knee joint s/p I&D on 12/05/18- resolved - remains stable and incision site clean and dry - Continues to work with PT. - Ortho on board and recommendations appreciated. -Patient is status post antibiotic treatment for this issue - pain control 3. Left leg muscle spasm - Robaxin TID - replacing K 4. Sacral wound with OM - repeat cultures now show only Marita -Patient is status post surgical debridement and course of antibiotics -Bone biopsy shows OM, continue IV antibiotics until 02/19/2019 -ID following 5. Chronic spinal disease - h/o significant stenosis of her spine. Lumbar spine and thoracic spine CT show signs of stenosis though no acute fractures. - continue lidocaine patch -Patient is not interested in oral or IV narcotics 6. osteoarthritis - pain control 7. urinary tract infection- treated - Cultures grew Ecoli and lactobacillus - asymptomatic 8. Strep Bacteremia-resolved -Status post antibiotic course - repeat cultures negative 9. History of falls -Continue PT 10. Mild left foot edema secondary to previous surgery on left leg-resolved -Edema resolved with Lasix IV x1 and elevation of leg overnight Disposition - CM on board for SNF placement Subjective 24 Hr Interval Summary Constitutional: no complaints Exam/Review of Systems Exam Vitals Vital Signs Date Temp Pulse Resp B/P (MAP) Pulse Ox O2 O2 Flow FiO2 Time Delivery Rate 01/19/19 97.6 67 14 127/65 100 Room Air 07:58 (85) Intake and Output 01/18/19 01/18/19 01/19/19 1515:00 23:00 07:00 IntakeIntake Total 340 ml 440 ml BalanceBalance 340 ml 440 ml Constitutional: alert, oriented Respiratory: clear to auscultation Cardiovascular: regular rate and rhythm Gastrointestinal: soft; No distended Musculoskeletal: nl extremities to inspection Medications Medication Current Medications Albuterol (Ventolin Hfa) 2 puff Q4H PRN INH WHEEZING AND SOB; Start 12/01/18 at 21:00; Status Hold Ascorbic Acid (Vitamin C) 500 mg BID PO Last administered on 01/19/19 09:25; Admin Dose 500 MG; Start 12/01/18 at 21:00 Bupropion HCl (Wellbutrin Xl) 300 mg DAILY PO Last administered on 01/19/19:25; Admin Dose 300 MG; Start 12/02/18 at 09:00 Cholecalciferol (Vitamin D) 1,000 unit DAILY PO Last administered on 01/19/19 09:25; Admin Dose 1,000 UNIT; Start 12/02/18 at 09:00 Diclofenac Sodium (Voltaren 1% Gel) 2 gm TID PRN TP PAIN; Start 12/01/18 at 21:00 Levothyroxine Sodium (Synthroid) 100 mcg BEFORE BREAKFAST PO Last administered on 01/19/19 05:31; Admin Dose 100 MCG; Start 12/02/18 at 07:00 Multivitamins Therapeutic (Theragran) 1 tab DAILY PO Last administered on 01/19/19 09:24; Admin Dose 1 TAB; Start 12/02/18 at 09:00 Vitamin B Complex/ Vitamin C (Berocca) 1 cap DAILY PO Last administered on 01/19/19 09:25; Admin Dose 1 CAP; Start 12/02/18 at 09:00 Fish Oil (Fish Oil) 1,000 mg DAILY PO Last administered on 01/19/19 09:26; Admin Dose 1,000 MG; Start 12/02/18 at 09:00 Docusate Sodium (Colace) 100 mg Q12H PRN PO .CONSTIPATION; Start 12/01/18 at 22:00 Bisacodyl (Dulcolax) 5 mg DAILY PRN PO .CONSTIPATION; Start 12/01/18 at 22:00 Lidocaine (Xylocaine 1% (Mpf)) 30 ml ONCE PRN INJ aspiration ; Start 12/04/18 at 17:30 IV Flush (NS 3 ml) 3 ml PER PROTOCOL IV ; Start 12/05/18 at 21:30 Oxycodone HCl (Roxicodone) 15 mg Q4H PRN PO .PAIN Last administered on 12/30/18 13:42; Admin Dose 5 MG; Start 12/05/18 at 21:30 Oxycodone HCl (Roxicodone) 10 mg Q4H PRN PO .PAIN Last administered on 01/16/19 02:22; Admin Dose 10 MG; Start 12/05/18 at 21:30 Oxycodone HCl (Roxicodone) 5 mg Q4H PRN PO .PAIN Last administered on 01/18/19 21:31; Admin Dose 5 MG; Start 12/05/18 at 21:30 Hydromorphone HCl (Dilaudid) 1 mg Q3H PRN IV .BREAKTHROUGH PAIN Last administered on 12/06/18 06:58; Admin Dose 1 MG; Start 12/05/18 at 21:30 Ondansetron HCl (Zofran Inj) 4 mg Q4H PRN IV NAUSEA/VOMITING; Start 12/06/18 at 21:30 Pantoprazole (Protonix Tab) 40 mg DAILY@06 PO Last administered on 01/19/19 05:31; Admin Dose 40 MG; Start 12/07/18 at 06:00 Simethicone (Mylicon) 80 mg TID PRN PO .GAS; Start 12/05/18 at 21:30 Senna/Docusate Sodium (Senokot-S) 2 tab BID PRN PO .CONSTIPATION Last administered on 12/06/18 08:54; Admin Dose 2 TAB; Start 12/05/18 at 21:30 Magnesium Hydroxide (Milk Of Mag) 30 ml HS PRN PO .CONSTIPATION; Start 12/05/18 at 21:30 Bisacodyl (Dulcolax Supp) 10 mg DAILY PRN [place] .CONSTIPATION; Start 12/05/18 at 21:30 Sodium Biphosphate/ Sodium Phosphate (Fleet Enema) 133 ml DAILY PRN [place] .CONSTIPATION; Start 12/05/18 at 21:30 Diphenhydramine HCl (Benadryl) 25 mg Q4H PRN IV .ITCHING; Start 12/05/18 at 21:30 Naloxone HCl (Narcan) 0.2 mg Q2M PRN IV .RESP RATE; Start 12/05/18 at 21:30 Bethanechol Chloride (Urecholine) 25 mg URINARY CATH D/C PRN PO UNABLE TO VOID; Start 12/05/18 at 21:30 Aspirin (Halfprin) 81 mg BID PO Last administered on 01/19/19 09:25; Admin Dose 81 MG; Start 12/06/18 at 09:00 Nystatin (Nystatin Powder) 1 applic BID TOP Last administered on 01/15/19 09:22; Admin Dose 1 APPLIC; Start 12/12/18 at 21:00 Albuterol (Proventil 0.083% (Neb)) 2.5 mg Q2H RESP THERAPY PRN HHN SHORTNESS OF BREATH; Start 12/15/18 at 12:00 Gabapentin (Neurontin) 300 mg TID PO Last administered on 01/19/19 09:24; Admin Dose 300 MG; Start 12/22/18 at 13:00 Methocarbamol (Robaxin) 750 mg TID PO Last administered on 01/19/19 09:25; Admin Dose 750 MG; Start 12/28/18 at 13:00 Linezolid (Zyvox) 600 mg BID PO Last administered on 01/19/19 09:25; Admin Dose 600 MG; Start 12/28/18 at 15:00 Acetaminophen (Tylenol Tab) 1,000 mg Q6 PRN PO pain Last administered on 01/19/19 03:29; Admin Dose 1,000 MG; Start 12/28/18 at 21:30 Alteplase, Recombinant (Cathflo (Activase)) 2 mg MAY REPEAT X1 PRN CATHETER IF CATHETER REMAINS OCCULUDED Last administered on 12/29/18 16:53; Admin Dose 2 MG; Start 12/29/18 at 16:00 Sodium Hypochlorite (Dakins Diluted (40)) 1 applic BID TP Last administered on 01/19/19 09:27; Admin Dose 1 APPLIC; Start 01/06/19 at 12:03 Cefepime HCl 50 ml @ 100 mls/hr Q12 IVPB Last administered on 01/19/19 09:24; Admin Dose 100 MLS/HR; Start 01/07/19 at 21:00 Collagenase (Santyl) 1 applic BID TOP Last administered on 01/19/19 09:24; Admin Dose 1 APPLIC; Start 01/07/19 at 21:00 Fluconazole (Diflucan) 100 mg DAILY PO Last administered on 01/19/19 09:25; Admin Dose 100 MG; Start 01/13/19 at 11:30 Lisinopril (Zestril) 2.5 mg DAILY PO Last administered on 01/19/19 09:25; Admin Dose 2.5 MG; Start 01/17/19 at 09:00 Polyethylene Glycol (Miralax) 17 gm DAILY PRN PO constipation; Start 01/18/19 at 12:30 Senna (Senokot) 1 tab BID PRN PO constipation; Start 01/18/19 at 12:30 Lidocaine (Lidoderm) 1 patch QHS TD Last administered on 01/18/19at 20:36; Admin Dose 1 PATCH; Start 01/18/19 at 21:00 TERESA COSBY January 19, 2019 11:34
--- NOTE | 2019-01-19 12:04 | CONS ---
Assessment/Plan Assessment/Plan Hospital Course (Demo Recall) ID PROGRESS NOTE CURRENT ABX: DAY # => ZYVOX + CEFEPIME+ DIFLUCAN POD # * -> S/P 01/07/19 Sacral OM==> s/p debridement==> bone patho + osteomyelitis * -> S/P 12/05/18 Right knee infected arthroplasty, status post I&D with poly exchange 24H INTERVAL SUMMARY * Clinically status quo -- slept well last night -- * Resting comfortably, VSS, no fevers,NAD * DC PLANNING TO ACCEPTING SNF IN PROCESS MICRO/OTHER * 01/10/19 SACRAL WOUND CX: (+) WOUND CULTURE Final Organism 1 BESSIE ALBICANS QUANTITY 1+ * 12/19/18 + 12/28/18 sacral wound cx (+)VRE & GNR PROTEUS * ``````````````````````````````````````````` * URINE CX (-) * 12/01/18 BCX (+) 2/2 BOTTLES BLOOD CULTURE Final Organism 1 STREP AGALACTIAE - (GROUP B) * 12/01/18 URINE CX: URINE CULTURE Final Organism 1 ESCHERICHIA COLI COLONY COUNT >100,000 CFU/ml Organism 2 LACTOBACILLUS SPECIES COLONY COUNT >100,000 CFU/ml * 12/03/18 SACRAL WOUND: WOUND CULTURE Organism 1 PROTEUS MIRABILIS QUANTITY SCANT GROWTH Organism 2 STREP AGALACTIAE - (GROUP B) QUANTITY SCANT GROWTH Organism 3 MRSA QUANTITY ISOLATED FROM BROTH ONLY P. MIRAB M.I.C. RX --------- --- AMIKACIN <=2 S AMPICILLIN >=32 R CEFEPIME <=1 S CEFOTAXIME I CIPROFLOXACIN >=4 R GENTAMICIN >=16 R LEVOFLOXACIN >=8 R TOBRAMYCIN 8 I TRIMETHOPRIM/SULFAMETHOXAZOLE >=320 R PIPERACILLIN/TAZOBACTAM <=4 S * 12/05/18 RIGHT KNEE CX: TISSUE (BIOPSY) CULTURE Preliminary Organism 1 STREP AGALACTIAE - (GROUP B) QUANTITY 2+ * PHYSICAL EXAMINATION: GENERAL: VSS, NAD HEENT: AT, NC, anicteric, NECK: Supple, CHEST: Equal chest rise bilaterally, without dyspnea on observation HEART: Pulse RRR ABDOMEN: Soft / NT : FC EXTREMITIES: Warm, dry SKIN: No rash, no diaphoresis ID ASSESSMENT 73 yo F admit with: 1. Status post sepsis, present on admission 2. Streptococcal bacteremia 2 to #3 * 2D echo revealed no vegetations 3. Right knee infected arthroplasty, status post I&D with poly exchange 4. Urinary tract infection 5. History of left total knee replacement 6. History of multilevel discectomy and posterior fusion from L1-L3, please see CT in the chart 7. S/P 01/07/19 Sacral OM==> s/p debridement==> bone patho + osteomyelitis (-)MRSA Nares ABX ALLERGIES: None to ABX INVASIVES: PIV CURRENT ABX: DAY # > ZYVOX + CEFEPIME+ DIFLUCAN ID RECOMMENDATIONS/PLAN: 1. Continue current ABX 2. DC PLANNING IN PROCESS PER ID [employer] Colleague: * "ok dc isolation, continue on current abx for 6 weeks to treat OM==> last day 02/19/19, may change PO Zyvox to IV Daptomycin i pt develops thro mbocytopenia/leukopenia." . Consultation Date/Type/Reason Admit Date/Time Dec 01, 2018 at 19:24 Initial Consult Date 12/04/18 Requesting Provider: TERESA COSBY Date/Time of Note DATE: 01/19/19 TIME: 12:03 Exam/Review of Systems Exam Vitals Vital Signs Date Temp Pulse Resp B/P (MAP) Pulse Ox O2 O2 Flow FiO2 Time Delivery Rate 01/19/19 97.6 67 14 127/65 100 Room Air 07:58 (85) Intake and Output 01/18/19 01/18/19 01/19/19 1515:00 23:00 07:00 IntakeIntake Total 340 ml 440 ml BalanceBalance 340 ml 440 ml Medications Medication Current Medications Albuterol (Ventolin Hfa) 2 puff Q4H PRN INH WHEEZING AND SOB; Start 12/01/18 at 21:00; Status Hold Ascorbic Acid (Vitamin C) 500 mg BID PO Last administered on 01/19/19at 09:25; Admin Dose 500 MG; Start 12/01/18 at 21:00 Bupropion HCl (Wellbutrin Xl) 300 mg DAILY PO Last administered on 01/19/19at 09:25; Admin Dose 300 MG; Start 12/02/18 at 09:00 Cholecalciferol (Vitamin D) 1,000 unit DAILY PO Last administered on 01/19/19 09:25; Admin Dose 1,000 UNIT; Start 12/02/18 at 09:00 Diclofenac Sodium (Voltaren 1% Gel) 2 gm TID PRN TP PAIN; Start 12/01/18 at 21:00 Levothyroxine Sodium (Synthroid) 100 mcg BEFORE BREAKFAST PO Last administered on 01/19/19 05:31; Admin Dose 100 MCG; Start 12/02/18 at 07:00 Multivitamins Therapeutic (Theragran) 1 tab DAILY PO Last administered on 01/19/19 09:24; Admin Dose 1 TAB; Start 12/02/18 at 09:00 Vitamin B Complex/ Vitamin C (Berocca) 1 cap DAILY PO Last administered on 01/19/19 09:25; Admin Dose 1 CAP; Start 12/02/18 at 09:00 Fish Oil (Fish Oil) 1,000 mg DAILY PO Last administered on 01/19/19 09:26; Admin Dose 1,000 MG; Start 12/02/18 at 09:00 Docusate Sodium (Colace) 100 mg Q12H PRN PO .CONSTIPATION; Start 12/01/18 at 22:00 Bisacodyl (Dulcolax) 5 mg DAILY PRN PO .CONSTIPATION; Start 12/01/18 at 22:00 Lidocaine (Xylocaine 1% (Mpf)) 30 ml ONCE PRN INJ aspiration ; Start 12/04/18 at 17:30 IV Flush (NS 3 ml) 3 ml PER PROTOCOL IV ; Start 12/05/18 at 21:30 Oxycodone HCl (Roxicodone) 15 mg Q4H PRN PO .PAIN Last administered on 12/10 13:42; Admin Dose 5 MG; Start 12/05/18 at 21:30 Oxycodone HCl (Roxicodone) 10 mg Q4H PRN PO .PAIN Last administered on 01/16/19 02:22; Admin Dose 10 MG; Start 12/05/18 at 21:30 Oxycodone HCl (Roxicodone) 5 mg Q4H PRN PO .PAIN Last administered on 01/18/19 21:31; Admin Dose 5 MG; Start 12/05/18 at 21:30 Hydromorphone HCl (Dilaudid) 1 mg Q3H PRN IV .BREAKTHROUGH PAIN Last administered on 12/06/18 06:58; Admin Dose 1 MG; Start 12/05/18 at 21:30 Ondansetron HCl (Zofran Inj) 4 mg Q4H PRN IV NAUSEA/VOMITING; Start 12/06/18 at 21:30 Pantoprazole (Protonix Tab) 40 mg DAILY@06 PO Last administered on 01/19/19 05:31; Admin Dose 40 MG; Start 12/07/18 at 06:00 Simethicone (Mylicon) 80 mg TID PRN PO .GAS; Start 12/05/18 at 21:30 Senna/Docusate Sodium (Senokot-S) 2 tab BID PRN PO .CONSTIPATION Last administered on 12/06/18 08:54; Admin Dose 2 TAB; Start 12/05/18 at 21:30 Magnesium Hydroxide (Milk Of Mag) 30 ml HS PRN PO .CONSTIPATION; Start 12/05/18 at 21:30 Bisacodyl (Dulcolax Supp) 10 mg DAILY PRN [place] .CONSTIPATION; Start 12/05/18 at 21:30 Sodium Biphosphate/ Sodium Phosphate (Fleet Enema) 133 ml DAILY PRN [place] .CONSTIPATION; Start 12/05/18 at 21:30 Diphenhydramine HCl (Benadryl) 25 mg Q4H PRN IV .ITCHING; Start 12/05/18 at 21:30 Naloxone HCl (Narcan) 0.2 mg Q2M PRN IV .RESP RATE; Start 12/05/18 at 21:30 Bethanechol Chloride (Urecholine) 25 mg URINARY CATH D/C PRN PO UNABLE TO VOID; Start 12/05/18 at 21:30 Aspirin (Halfprin) 81 mg BID PO Last administered on 01/19/19 09:25; Admin Dose 81 MG; Start 12/06/18 at 09:00 Nystatin (Nystatin Powder) 1 applic BID TOP Last administered on 01/15/19 09:22; Admin Dose 1 APPLIC; Start 12/12/18 at 21:00 Albuterol (Proventil 0.083% (Neb)) 2.5 mg Q2H RESP THERAPY PRN HHN SHORTNESS OF BREATH; Start 12/15/18 at 12:00 Gabapentin (Neurontin) 300 mg TID PO Last administered on 01/19/19 09:24; Admin Dose 300 MG; Start 12/22/18 at 13:00 Methocarbamol (Robaxin) 750 mg TID PO Last administered on 01/19/19 09:25; Admin Dose 750 MG; Start 12/28/18 at 13:00 Linezolid (Zyvox) 600 mg BID PO Last administered on 01/19/19:25; Admin Dose 600 MG; Start 12/28/18 at 15:00 Acetaminophen (Tylenol Tab) 1,000 mg Q6 PRN PO pain Last administered on 01/19/19 03:29; Admin Dose 1,000 MG; Start 12/28/18 at 21:30 Alteplase, Recombinant (Cathflo (Activase)) 2 mg MAY REPEAT X1 PRN CATHETER IF CATHETER REMAINS OCCULUDED Last administered on 12/29/18 16:53; Admin Dose 2 MG; Start 12/29/18 at 16:00 Sodium Hypochlorite (Dakins Diluted (40)) 1 applic BID TP Last administered on 01/19/19 09:27; Admin Dose 1 APPLIC; Start 01/06/19 at 12:03 Cefepime HCl 50 ml @ 100 mls/hr Q12 IVPB Last administered on 01/19/19 09:24; Admin Dose 100 MLS/HR; Start 01/07/19 at 21:00 Collagenase (Santyl) 1 applic BID TOP Last administered on 01/19/19 09:24; Admin Dose 1 APPLIC; Start 01/07/19 at 21:00 Fluconazole (Diflucan) 100 mg DAILY PO Last administered on 01/19/19 09:25; Admin Dose 100 MG; Start 01/13/19 at 11:30 Lisinopril (Zestril) 2.5 mg DAILY PO Last administered on 01/19/19 09:25; Admin Dose 2.5 MG; Start 01/17/19 at 09:00 Polyethylene Glycol (Miralax) 17 gm DAILY PRN PO constipation; Start 01/18/19 at 12:30 Senna (Senokot) 1 tab BID PRN PO constipation; Start 01/18/19 at 12:30 Lidocaine (Lidoderm) 1 patch QHS TD Last administered on 01/18/19at 20:36; Admin Dose 1 PATCH; Start 01/18/19 at 21:00 FAROOQ MATHUR NP January 19, 2019 12:04
[2019-01-19 14:31] VITALS: BP 110/64; PULSE 84; RESP 15
[2019-01-19 20:20] VITALS: BP 106/57; PULSE 85; RESP 17
[2019-01-19] MEDS: LIDOCAINE 5% PATCH TD SCH (21:06)
--- NOTE | 2019-01-19 23:15 | PN ---
Date/Time of Note Date/Time of Note DATE: 01/19/19 TIME: 23:14 Assessment/Plan Lines/Catheters IV Catheter Type (from [facility]): PICC Line Schaeffer in Place (from [facility]): No Assessment/Plan Chief Complaint/Hosp Course 1. Sacral wound: + Wound cultures; status post repeat debridement 01/07/2019; bone pathology noted; soft bone noted during debridement> + osteo; repeat wound cultures noted> now off isolation Sacral coccyx ulcer biopsy:: fragments of bone with overlying cartilage showing bone necrosis and acute osteomyelitis. -cont antibiotics per ID -Repeat debridement as needed > can follow with Dr. Mcmanus at wound care clinic (discussed again with patient and son today) -Continue local care w santyl -frequent turning and off-loading -low air loss mattress -vitamin c -short term zinc -optimize nutrition -dc ok from surgical standpoint 2. Bacteremia: Repeat blood culture: NG 3.Septic right knee joint status post I&D: -Per Ortho 4. Spine disease: Status post spinal surgeries -Supportive 5.UTI: -abx per sensitivity -frequent bladder emptying/cath care 6. Osteoarthritis: -Medical management Thank you Subjective 24 Hr Interval Summary No fevers, chills, sob, congested cough, cp, palpitations, ruano, dizziness, n/v/d/dysuria, excessive wound drainage/odor. Exam/Review of Systems Vital Signs Vitals Vital Signs Date Temp Pulse Resp B/P (MAP) Pulse Ox O2 O2 Flow FiO2 Time Delivery Rate 01/19/19 98.6 85 17 106/57 99 20:20 (73) 01/19/19 Room Air 14:31 Intake and Output 01/18/19 01/18/19 01/19/19 1515:00 23:00 07:00 IntakeIntake Total 340 ml 440 ml BalanceBalance 340 ml 440 ml Exam Free Text/Dictation Constitutional: alert, oriented Psych: nl mood/affect; No anxiety Head: normocephalic, atraumatic Eyes: nl conjunctiva, EOMI, nl lids, nl sclera ENMT: nl external ears & nose, nl lips & teeth, nl nasal mucosa & septum, mucosa pink and moist Neck: supple, non-tender; No jvd Respiratory: normal air movement; No congested cough Cardiovascular: regular rate and rhythm, nl pulses; No edema Gastrointestinal: soft, non-tender; No distended Genitourinary - Female: nl external genitalia Musculoskeletal: nl extremities to inspection; No nl gait and stance Extremities: normal pulses Neurological: nl mental status, nl speech, nl strength Skin: nl turgor, other (Sacrum: Minimal Slough, minimal drainage, no odor, minimal periwound erythema-improved) Lymph: nl lymph nodes GABRIELA MCMANUS MD January 19, 2019 23:15
[2019-01-20] MEDS: PANTOPRAZOLE (EC) 40 MG TAB PO SCH (06:37)
[2019-01-20] MEDS: LEVOTHYROXINE 100 MCG TAB PO SCH (06:37)
[2019-01-20 07:23] VITALS: BP 119/59; PULSE 65; RESP 18
[2019-01-20] MEDS: ASPIRIN (EC) 81 MG TAB PO SCH ×2 (09:40→20:35)
[2019-01-20] MEDS: CEFEPIME 1GM/50 ML (PMX) 50 ML IVPB SCH ×2 (09:40→20:36)
[2019-01-20] MEDS: ZYVOX 600 MG TAB PO SCH ×2 (09:41→20:35)
[2019-01-20] MEDS: LISINOPRIL 5 MG TAB PO SCH (09:41)
[2019-01-20] MEDS: METHOCARBAMOL 750 MG TAB PO SCH ×3 (09:41→21:00)
[2019-01-20] MEDS: ASCORBIC ACID 500 MG TAB PO SCH ×2 (09:41→20:35)
[2019-01-20] MEDS: VITAMIN B COMPLEX/VIT C CAP PO SCH (09:41)
[2019-01-20] MEDS: FISH OIL 1,000 MG CAP PO SCH (09:41)
[2019-01-20] MEDS: FLUCONAZOLE 100 MG TAB PO SCH (09:41)
[2019-01-20] MEDS: BUPROPION (XL) 150 MG TAB PO SCH (09:41)
[2019-01-20] MEDS: CHOLECALCIFEROL 1,000 UNIT TAB PO SCH (09:41)
[2019-01-20] MEDS: MULTIVITAMINS THERAPEUTIC TAB PO SCH (09:41)
[2019-01-20] MEDS: GABAPENTIN 300 MG CAP PO SCH ×3 (09:41→20:35)
[2019-01-20] MEDS: COLLAGENASE 5 GM (UD JAR) TOP SCH ×2 (09:42→20:36)
[2019-01-20] MEDS: DAKINS 0.0125%(1/40) 473 ML SOLUTION TP SCH ×2 (09:42→20:37)
[2019-01-20] MEDS: BALSAM PERU/CASTOR OIL 60 GM TUBE TOP SCH ×2 (09:42→20:37)
[2019-01-20] MEDS: NYSTATIN 30 GM POWDER BTL TOP SCH ×2 (09:42→20:36)
[2019-01-20 14:26] VITALS: BP 103/54; PULSE 88; RESP 18
--- NOTE | 2019-01-20 14:53 | PN ---
Date/Time of Note Date/Time of Note DATE: 01/20/19 TIME: 14:44 Assessment/Plan VTE Prophylaxis Risk score (from Nsg)>0 risk: 4 SCD applied (from Nsg): Yes Pharmacological prophylaxis: LMWH Lines/Catheters IV Catheter Type (from Nrsg): PICC Line Central line still needed: Yes Urinary Cath still in place: No Assessment/Plan Assessment/Plan 1. Sepsis secondary secondary to decubitus ulcers and OM-resolved - Repeat sacral wound only growing Marita. No need for any further isolation - ID on board and appreciate recommendations - Continue antibiotics for sacral OM until 02/19 2. Septic R knee joint s/p I&D on 12/05/18- resolved - remains stable and incision site clean and dry - Continues to work with PT. - Ortho consultation appreciated - Patient is status post antibiotic treatment for this issue - pain control 3. Left leg muscle spasm - Robaxin TID 4. Sacral wound with OM s/p debridement - General surgery consultation appreciated and cleared for d/c from their standpoint. Continue antibiotics and local wound care - Bone biopsy shows OM, continue IV antibiotics until 02/19/2019 - ID recommendations appreciated 5. Chronic spinal disease - h/o significant stenosis of her spine. Lumbar spine and thoracic spine CT show signs of stenosis though no acute fractures. - continue lidocaine patch 6. osteoarthritis - pain control 7. urinary tract infection- treated - Cultures grew Ecoli and lactobacillus - asymptomatic 8. Strep Bacteremia-resolved - Status post antibiotic course - repeat cultures negative 9. History of falls - Continue PT 10. Disposition - Continue local wound care and antibiotics until 02/19. Medically stable for discharge once accepted to SNF vs ARU Subjective 24 Hr Interval Summary Free Text/Dictation Patient denies any acute issues and discussed need for SNF vs ARU for continued therapy and wound care. No acute overnight events. Exam/Review of Systems Exam Vitals Vital Signs Date Temp Pulse Resp B/P (MAP) Pulse Ox O2 O2 Flow FiO2 Time Delivery Rate 01/20/19 98.3 65 18 119/59 94 Nasal 07:23 (79) Cannula Intake and Output 01/19/19 01/19/19 01/20/19 1515:00 23:00 07:00 IntakeIntake Total 400 ml 330 ml BalanceBalance 400 ml 330 ml Exam General: Patient is laying in bed and answers questions appropriately. no acute distress Mentation: Patient is alert and oriented 4, Head: Normocephalic atraumatic Eyes: EOMI, pupils reactive to light Neck: Supple, nontender, midline Respiratory: Clear to auscultation bilaterally. no wheezing or rhonchi Cardiovascular: S1, S2, regular rate and rhythm, no obvious murmurs Gastrointestinal: soft, nontender to palpation, nondistended, bowel sounds heard. Ext: Moves all extremities spontaneously Skin: No new skin lesions, surgical incision healing Medications Medication Current Medications Albuterol (Ventolin Hfa) 2 puff Q4H PRN INH WHEEZING AND SOB; Start 12/01/18 at 21:00; Status Hold Ascorbic Acid (Vitamin C) 500 mg BID PO Last administered on 01/20/19 09:41; Admin Dose 500 MG; Start 12/01/18 at 21:00 Bupropion HCl (Wellbutrin Xl) 300 mg DAILY PO Last administered on 01/20/19 09:41; Admin Dose 300 MG; Start 12/02/18 at 09:00 Cholecalciferol (Vitamin D) 1,000 unit DAILY PO Last administered on 01/20/19 09:41; Admin Dose 1,000 UNIT; Start 12/02/18 at 09:00 Diclofenac Sodium (Voltaren 1% Gel) 2 gm TID PRN TP PAIN; Start 12/01/18 at 21:00 Levothyroxine Sodium (Synthroid) 100 mcg BEFORE BREAKFAST PO Last administered on 01/20/19 06:37; Admin Dose 100 MCG; Start 12/02/18 at 07:00 Multivitamins Therapeutic (Theragran) 1 tab DAILY PO Last administered on 01/20/19 09:41; Admin Dose 1 TAB; Start 12/02/18 at 09:00 Vitamin B Complex/ Vitamin C (Berocca) 1 cap DAILY PO Last administered on 01/20/19 09:41; Admin Dose 1 CAP; Start 12/02/18 at 09:00 Fish Oil (Fish Oil) 1,000 mg DAILY PO Last administered on 01/20/19 09:41; A dmin Dose 1,000 MG; Start 12/02/18 at 09:00 Docusate Sodium (Colace) 100 mg Q12H PRN PO .CONSTIPATION; Start 12/01/18 at 22:00 Bisacodyl (Dulcolax) 5 mg DAILY PRN PO .CONSTIPATION; Start 12/01/18 at 22:00 Lidocaine (Xylocaine 1% (Mpf)) 30 ml ONCE PRN INJ aspiration ; Start 12/04/18 at 17:30 IV Flush (NS 3 ml) 3 ml PER PROTOCOL IV ; Start 12/05/18 at 21:30 Oxycodone HCl (Roxicodone) 15 mg Q4H PRN PO .PAIN Last administered on 12/30/18at 13:42; Admin Dose 5 MG; Start 12/05/18 at 21:30 Oxycodone HCl (Roxicodone) 10 mg Q4H PRN PO .PAIN Last administered on 01/16/19 02:22; Admin Dose 10 MG; Start 12/05/18 at 21:30 Oxycodone HCl (Roxicodone) 5 mg Q4H PRN PO .PAIN Last administered on 01/18/19 21:31; Admin Dose 5 MG; Start 12/05/18 at 21:30 Hydromorphone HCl (Dilaudid) 1 mg Q3H PRN IV .BREAKTHROUGH PAIN Last administered on 12/06/18at 06:58; Admin Dose 1 MG; Start 12/05/18 at 21:30 Ondansetron HCl (Zofran Inj) 4 mg Q4H PRN IV NAUSEA/VOMITING; Start 12/06/18 at 21:30 Pantoprazole (Protonix Tab) 40 mg DAILY@06 PO Last administered on 01/20/19 06:37; Admin Dose 40 MG; Start 12/07/18 at 06:00 Simethicone (Mylicon) 80 mg TID PRN PO .GAS; Start 12/05/18 at 21:30 Senna/Docusate Sodium (Senokot-S) 2 tab BID PRN PO .CONSTIPATION Last administered on 12/06/18 08:54; Admin Dose 2 TAB; Start 12/05/18 at 21:30 Magnesium Hydroxide (Milk Of Mag) 30 ml HS PRN PO .CONSTIPATION; Start 12/05/18 at 21:30 Bisacodyl (Dulcolax Supp) 10 mg DAILY PRN [place] .CONSTIPATION; Start 12/05/18 at 21:30 Sodium Biphosphate/ Sodium Phosphate (Fleet Enema) 133 ml DAILY PRN [place] .CONSTIPATION; Start 12/05/18 at 21:30 Diphenhydramine HCl (Benadryl) 25 mg Q4H PRN IV .ITCHING; Start 12/05/18 at 21:30 Naloxone HCl (Narcan) 0.2 mg Q2M PRN IV .RESP RATE; Start 12/05/18 at 21:30 Bethanechol Chloride (Urecholine) 25 mg URINARY CATH D/C PRN PO UNABLE TO VOID; Start 12/05/18 at 21:30 Aspirin (Halfprin) 81 mg BID PO Last administered on 01/20/19 09:40; Admin Dose 81 MG; Start 12/06/18 at 09:00 Nystatin (Nystatin Powder) 1 applic BID TOP Last administered on 01/20/19 09:42; Admin Dose 1 APPLIC; Start 12/12/18 at 21:00 Albuterol (Proventil 0.083% (Neb)) 2.5 mg Q2H RESP THERAPY PRN HHN SHORTNESS OF BREATH; Start 12/15/18 at 12:00 Gabapentin (Neurontin) 300 mg TID PO Last administered on 01/20/19 13:18; Admi n Dose 300 MG; Start 12/22/18 at 13:00 Methocarbamol (Robaxin) 750 mg TID PO Last administered on 01/20/19 13:18; Admin Dose 750 MG; Start 12/28/18 at 13:00 Linezolid (Zyvox) 600 mg BID PO Last administered on 01/20/19 09:41; Admin Dose 600 MG; Start 12/28/18 at 15:00 Acetaminophen (Tylenol Tab) 1,000 mg Q6 PRN PO pain Last administered on 01/19/19 03:29; Admin Dose 1,000 MG; Start 12/28/18 at 21:30 Alteplase, Recombinant (Cathflo (Activase)) 2 mg MAY REPEAT X1 PRN CATHETER IF CATHETER REMAINS OCCULUDED Last administered on 12/29/18 16:53; Admin Dose 2 MG; Start 12/29/18 at 16:00 Sodium Hypochlorite (Dakins Diluted ()) 1 applic BID TP Last administered on 01/20/19 09:42; Admin Dose 1 APPLIC; Start 01/06/19 at 12:03 Cefepime HCl 50 ml @ 100 mls/hr Q12 IVPB Last administered on 01/20/19 09:40; Admin Dose 100 MLS/HR; Start 01/07/19 at 21:00 Collagenase (Santyl) 1 applic BID TOP Last administered on 01/20/19 09:42; Admin Dose 1 APPLIC; Start 01/07/19 at 21:00 Fluconazole (Diflucan) 100 mg DAILY PO Last administered on 01/20/19 09:41; Admin Dose 100 MG; Start 01/13/19 at 11:30 Lisinopril (Zestril) 2.5 mg DAILY PO Last administered on 01/20/19 09:41; Admin Dose 2.5 MG; Start 01/17/19 at 09:00 Polyethylene Glycol (Miralax) 17 gm DAILY PRN PO constipation; Start 01/18/19 at 12:30 Senna (Senokot) 1 tab BID PRN PO constipation; Start 01/18/19 at 12:30 Lidocaine (Lidoderm) 1 patch QHS TD Last administered on 01/19/19 21:06; Admin Dose 1 PATCH; Start 01/18/19 at 21:00 BALTAZAR BARAJAS MD January 20, 2019 14:53
--- NOTE | 2019-01-20 15:04 | CONS ---
Assessment/Plan Assessment/Plan Hospital Course (Demo Recall) No events. Alert, feels good Antimicrobials: Cefepime, Zyvox fluconazole Microbiology: Blood culture on admission grew strep, urine culture grew E. coli, MRSA swab negative, repeat blood cultures negative. Sacral wound cx + VRE/Proteus/Strep/Marita 2D echo revealed no vegetations Physical examination: This is well-developed well-nourished elderly woman who is alert in no distress. Head atraumatic normocephalic neck is supple. Chest rise symmetrical breath sounds clear. Heart: S1-S2. Abdomen soft, bowel tones present. Extremities wnl Assessment: 1. 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 Status post sepsis 3. S/p streptococcal bacteremia 2 to #4 4. 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 S/p urinary tract infection 6. History of left total knee replacement 7. History of multilevel discectomy and posterior fusion from L1-L3, please see CT in the chart Plan: Remains stable, continue on current abx for 6 weeks to treat OM==> last d ay 02/19/19, may change PO Zyvox to IV Daptomycin if pt develops thrombocytopenia/leukopenia, f/u cbc in am Consultation Date/Type/Reason Admit Date/Time Dec 01, 2018 at 19:24 Initial Consult Date Type of Consult id Requesting Provider: TERESA COSBY Date/Time of Note DATE: 01/20/19 TIME: 15:03 Exam/Review of Systems Exam Vitals Vital Signs Date Temp Pulse Resp B/P (MAP) Pulse Ox O2 O2 Flow FiO2 Time Delivery Rate 01/20/19 98.8 88 18 103/54 96 14:26 (70) 01/20/19 Nasal 07:23 Cannula Intake and Output 01/19/19 01/19/19 01/20/19 1515:00 23:00 07:00 IntakeIntake Total 400 ml 330 ml BalanceBalance 400 ml 330 ml Medications Medication Current Medications Albuterol (Ventolin Hfa) 2 puff Q4H PRN INH WHEEZING AND SOB; Start 12/01/18 at 21:00; Status Hold Ascorbic Acid (Vitamin C) 500 mg BID PO Last administered on 01/20/19at 09:41; Admin Dose 500 MG; Start 12/01/18 at 21:00 Bupropion HCl (Wellbutrin Xl) 300 mg DAILY PO Last administered on 01/20/19 09:41; Admin Dose 300 MG; Start 12/02/18 at 09:00 Cholecalciferol (Vitamin D) 1,000 unit DAILY PO Last administered on 01/20/19 09:41; Admin Dose 1,000 UNIT; Start 12/02/18 at 09:00 Diclofenac Sodium (Voltaren 1% Gel) 2 gm TID PRN TP PAIN; Start 12/01/18 at 21:00 Levothyroxine Sodium (Synthroid) 100 mcg BEFORE BREAKFAST PO Last administered on 01/20/19 06:37; Admin Dose 100 MCG; Start 12/02/18 at 07:00 Multivitamins Therapeutic (Theragran) 1 tab DAILY PO Last administered on 01/20/19 09:41; Admin Dose 1 TAB; Start 12/02/18 at 09:00 Vitamin B Complex/ Vitamin C (Berocca) 1 cap DAILY PO Last administered on 01/20/19 09:41; Admin Dose 1 CAP; Start 12/02/18 at 09:00 Fish Oil (Fish Oil) 1,000 mg DAILY PO Last administered on 01/20/19 09:41; Admin Dose 1,000 MG; Start 12/02/18 at 09:00 Docusate Sodium (Colace) 100 mg Q12H PRN PO .CONSTIPATION; Start 12/01/18 at 22:00 Bisacodyl (Dulcolax) 5 mg DAILY PRN PO .CONSTIPATION; Start 12/01/18 at 22:00 Lidocaine (Xylocaine 1% (Mpf)) 30 ml ONCE PRN INJ aspiration ; Start 12/04/18 at 17:30 IV Flush (NS 3 ml) 3 ml PER PROTOCOL IV ; Start 12/05/18 at 21:30 Oxycodone HCl (Roxicodone) 15 mg Q4H PRN PO .PAIN Last administered on 12/30/18 13:42; Admin Dose 5 MG; Start 12/05/18 at 21:30 Oxycodone HCl (Roxicodone) 10 mg Q4H PRN PO .PAIN Last administered on 01/16/19 02:22; Admin Dose 10 MG; Start 12/05/18 at 21:30 Oxycodone HCl (Roxicodone) 5 mg Q4H PRN PO .PAIN Last administered on 01/18/19 21:31; Admin Dose 5 MG; Start 12/05/18 at 21:30 Hydromorphone HCl (Dilaudid) 1 mg Q3H PRN IV .BREAKTHROUGH PAIN Last administered on 12/06/18 06:58; Admin Dose 1 MG; Start 12/05/18 at 21:30 Ondansetron HCl (Zofran Inj) 4 mg Q4H PRN IV NAUSEA/VOMITING; Start 12/06/18 at 21:30 Pantoprazole (Protonix Tab) 40 mg DAILY@06 PO Last administered on 01/20/19 06:37; Admin Dose 40 MG; Start 12/07/18 at 06:00 Simethicone (Mylicon) 80 mg TID PRN PO .GAS; Start 12/05/18 at 21:30 Senna/Docusate Sodium (Senokot-S) 2 tab BID PRN PO .CONSTIPATION Last administered on 12/06/18 08:54; Admin Dose 2 TAB; Start 12/05/18 at 21:30 Magnesium Hydroxide (Milk Of Mag) 30 ml HS PRN PO .CONSTIPATION; Start 12/05/18 at 21:30 Bisacodyl (Dulcolax Supp) 10 mg DAILY PRN [place] .CONSTIPATION; Start 12/05/18 at 21:30 Sodium Biphosphate/ Sodium Phosphate (Fleet Enema) 133 ml DAILY PRN [place] .CONST IPATION; Start 12/05/18 at 21:30 Diphenhydramine HCl (Benadryl) 25 mg Q4H PRN IV .ITCHING; Start 12/05/18 at 21:30 Naloxone HCl (Narcan) 0.2 mg Q2M PRN IV .RESP RATE; Start 12/05/18 at 21:30 Bethanechol Chloride (Urecholine) 25 mg URINARY CATH D/C PRN PO UNABLE TO VOID; Start 12/05/18 at 21:30 Aspirin (Halfprin) 81 mg BID PO Last administered on 01/20/19 09:40; Admin Dose 81 MG; Start 12/06/18 at 09:00 Nystatin (Nystatin Powder) 1 applic BID TOP Last administered on 01/20/19 09:42; Admin Dose 1 APPLIC; Start 12/12/18 at 21:00 Albuterol (Proventil 0.083% (Neb)) 2.5 mg Q2H RESP THERAPY PRN HHN SHORTNESS OF BREATH; Start 12/15/18 at 12:00 Gabapentin (Neurontin) 300 mg TID PO Last administered on 01/20/19 13:18; Admin Dose 300 MG; Start 12/22/18 at 13:00 Methocarbamol (Robaxin) 750 mg TID PO Last administered on 01/20/19 13:18; Admin Dose 750 MG; Start 12/28/18 at 13:00 Linezolid (Zyvox) 600 mg BID PO Last administered on 01/20/19 09:41; Admin Dose 600 MG; Start 12/28/18 at 15:00 Acetaminophen (Tylenol Tab) 1,000 mg Q6 PRN PO pain Last administered on 01/19/19 03:29; Admin Dose 1,000 MG; Start 12/28/18 at 21:30 Alteplase, Recombinant (Cathflo (Activase)) 2 mg MAY REPEAT X1 PRN CATHETER IF CATHETER REMAINS OCCULUDED Last administered on 12/29/18 16:53; Admin Dose 2 MG; Start 12/29/18 at 16:00 Sodium Hypochlorite (Dakins Diluted ()) 1 applic BID TP Last administered on 01/20/19 09:42; Admin Dose 1 APPLIC; Start 01/06/19 at 12:03 Cefepime HCl 50 ml @ 100 mls/hr Q12 IVPB Last administered on 01/20/19 09:40; Admin Dose 100 MLS/HR; Start 01/07/19 at 21:00 Collagenase (Santyl) 1 applic BID TOP Last administered on 01/20/19 09:42; Admin Dose 1 APPLIC; Start 01/07/19 at 21:00 Fluconazole (Diflucan) 100 mg DAILY PO Last administered on 01/20/19 09:41; Admin Dose 100 MG; Start 01/13/19 at 11:30 Lisinopril (Zestril) 2.5 mg DAILY PO Last administered on 01/20/19 09:41; Admin Dose 2.5 MG; Start 01/17/19 at 09:00 Polyethylene Glycol (Miralax) 17 gm DAILY PRN PO constipation; Start 01/18/19 at 12:30 Senna (Senokot) 1 tab BID PRN PO constipation; Start 01/18/19 at 12:30 Lidocaine (Lidoderm) 1 patch QHS TD Last administered on 01/19/19at 21:06; Admin Dose 1 PATCH; Start 01/18/19 at 21:00 OZZIE SOLOMON NP January 20, 2019 15:04
[2019-01-20 20:20] VITALS: BP 96/53; PULSE 86; RESP 17
[2019-01-20] MEDS: LIDOCAINE 5% PATCH TD SCH (20:37)
[2019-01-21 02:30] VITALS: BP 106/56; PULSE 82; RESP 18
[2019-01-21] MEDS: LEVOTHYROXINE 100 MCG TAB PO SCH (06:35)
[2019-01-21] MEDS: PANTOPRAZOLE (EC) 40 MG TAB PO SCH (06:35)
[2019-01-21 08:06] VITALS: BP 119/67; PULSE 85; RESP 18
[2019-01-21] MEDS: CEFEPIME 1GM/50 ML (PMX) 50 ML IVPB SCH ×2 (08:25→21:09)
[2019-01-21] MEDS: FISH OIL 1,000 MG CAP PO SCH (08:25)
[2019-01-21] MEDS: MULTIVITAMINS THERAPEUTIC TAB PO SCH (08:26)
[2019-01-21] MEDS: VITAMIN B COMPLEX/VIT C CAP PO SCH (08:26)
[2019-01-21] MEDS: ZYVOX 600 MG TAB PO SCH ×2 (08:26→21:16)
[2019-01-21] MEDS: ASCORBIC ACID 500 MG TAB PO SCH ×2 (08:26→21:10)
[2019-01-21] MEDS: GABAPENTIN 300 MG CAP PO SCH ×3 (08:26→21:10)
[2019-01-21] MEDS: BUPROPION (XL) 150 MG TAB PO SCH (08:26)
[2019-01-21] MEDS: METHOCARBAMOL 750 MG TAB PO SCH ×3 (08:26→21:10)
[2019-01-21] MEDS: CHOLECALCIFEROL 1,000 UNIT TAB PO SCH (08:26)
[2019-01-21] MEDS: FLUCONAZOLE 100 MG TAB PO SCH (08:26)
[2019-01-21] MEDS: ASPIRIN (EC) 81 MG TAB PO SCH ×2 (08:27→21:10)
[2019-01-21] MEDS: LISINOPRIL 5 MG TAB PO SCH (08:27)
[2019-01-21] MEDS: NYSTATIN 30 GM POWDER BTL TOP SCH ×2 (08:28→21:21)
[2019-01-21] MEDS: COLLAGENASE 5 GM (UD JAR) TOP SCH ×2 (08:28→21:13)
[2019-01-21] MEDS: BALSAM PERU/CASTOR OIL 60 GM TUBE TOP SCH ×2 (08:29→21:21)
[2019-01-21] MEDS: DAKINS 0.0125%(1/40) 473 ML SOLUTION TP SCH ×2 (08:29→21:21)
--- NOTE | 2019-01-21 09:29 | PN ---
Date/Time of Note Date/Time of Note DATE: 01/21/19 TIME: 09:27 Assessment/Plan Lines/Catheters IV Catheter Type (from Nrs): PICC Line Schaeffer in Place (from Nrs): No Assessment/Plan Chief Complaint/Hosp Course 1. Sacral wound: + Wound cultures; status post repeat debridement 01/07/2019; bone pathology noted; soft bone noted during debridement> + osteo; repeat wound cultures noted> now off isolation Sacral coccyx ulcer biopsy:: fragments of bone with overlying cartilage showing bone necrosis and acute osteomyelitis. -cont antibiotics per ID -Repeat debridement as needed > can follow with Dr. Nation at wound care clinic -Continue local care w santyl> reviewed proper wound care with nursing -frequent turning and off-loading -low air loss mattress -vitamin c -short term zinc -optimize nutrition -dc ok from surgical standpoint 2. Bacteremia: Repeat blood culture: NG 3.Septic right knee joint status post I&D: -Per Ortho 4. Spine disease: Status post spinal surgeries -Supportive 5.UTI: -abx per sensitivity -frequent bladder emptying/cath care 6. Osteoarthritis: -Medical management Thank you. Patient seen and examined in collaboration with Dr. Fernandez Nation Subjective 24 Hr Interval Summary Feels well. Moderate drainage from wounds. Noted that wound was not packed as ordered. Discussed with nursing proper wound packing/care. No fevers, chills, sob, congested cough, cp, palpitations, ruano, dizziness, nausea, vomiting, diarrhea, dysuria. Exam/Review of Systems Vital Signs Vitals Vital Signs Date Temp Pulse Resp B/P (MAP) Pulse Ox O2 O2 Flow FiO2 Time Delivery Rate 01/21/19 97.5 85 18 119/67 98 08:06 (84) 01/20/19 Nasal 07:23 Cannula Intake and Output 01/20/19 01/20/19 01/21/19 1515:00 23:00 07:00 IntakeIntake Total 220 ml 100 ml BalanceBalance 220 ml 100 ml Exam Free Text/Dictation Constitutional: alert, oriented Psych: nl mood/affect; No anxiety Head: normocephalic, atraumatic Eyes: nl conjunctiva, EOMI, nl lids, nl sclera ENMT: nl external ears & nose, nl lips & teeth, nl nasal mucosa & septum, mucosa pink and moist Neck: supple, non-tender; No jvd Respiratory: normal air movement; No congested cough Cardiovascular: regular rate and rhythm, nl pulses; No edema Gastrointestinal: soft, non-tender; No distended Genitourinary - Female: nl external genitalia Musculoskeletal: nl extremities to inspection; No nl gait and stance Extremities: normal pulses Neurological: nl mental status, nl speech, nl strength Skin: nl turgor, other (Sacrum: Minimal Slough, moderate drainage, no odor, minimal periwound erythema-improved) Lymph: nl lymph nodes Results Result Diagram: 01/21/19 0502 YESSICA ALAMO NP January 21, 2019 09:29
--- NOTE | 2019-01-21 10:56 | PN ---
Date/Time of Note Date/Time of Note DATE: 01/21/19 TIME: 10:56 Assessment/Plan VTE Prophylaxis Risk score (from Nsg)>0 risk: 5 SCD applied (from Nsg): Yes Pharmacological prophylaxis: LMWH Lines/Catheters IV Catheter Type (from Nrsg): PICC Line Central line still needed: Yes Urinary Cath still in place: No Assessment/Plan Assessment/Plan 1. Sepsis secondary to decubitus ulcers and osteomyelitis-resolved - Repeat sacral wound only growing Marita. No need for any further isolation - ID on board and appreciate recommendations - Continue antibiotics for sacral OM until 02/19 2. Septic R knee joint s/p I&D on 12/05/18- resolved - remains stable and incision site clean and dry - Continues to work with PT. Requesting to ambulate more but discussed will get more PT once she agrees to an accepting SNF - Ortho consultation appreciated - pain control 3. Left leg muscle spasm - Robaxin TID 4. Sacral wound with OM s/p debridement - General surgery consultation appreciated and cleared for d/c from their standpoint. Continue antibiotics and local wound care - Bone biopsy shows OM, continue IV antibiotics until 02/19/2019 - ID recommendations appreciated 5. Chronic spinal disease - h/o significant stenosis of her spine. Lumbar spine and thoracic spine CT show signs of stenosis though no acute fractures. - continue lidocaine patch 6. osteoarthritis - pain control 7. urinary tract infection- treated - Cultures grew Ecoli and lactobacillus - asymptomatic 8. Strep Bacteremia-resolved - Status post antibiotic course - repeat cultures negative 9. History of falls - Continue PT 10. Disposition - Continue local wound care and antibiotics until 02/19. Medically stable for discharge to SNF Result Diagram: 01/21/19 0502 Results 24hrs Laboratory Tests Test 01/21/19 05:02 White Blood Count 4.4 #L Red Blood Count 3.27 L Hemoglobin 8.6 L Hematocrit 27.9 L Mean Corpuscular Volume 85.3 Mean Corpuscular Hemoglobin 26.3 L Mean Corpuscular Hemoglobin Concent 30.8 L Red Cell Distribution Width 20.7 H Platelet Count 215 # Mean Platelet Volume 9.1 Immature Granulocytes % 0.500 H Neutrophils % 52.9 Lymphocytes % 26.5 Monocytes % 14.6 H Eosinophils % 4.6 Basophils % 0.9 Nucleated Red Blood Cells % 0.0 Immature Granulocytes # 0.020 Neutrophils # 2.3 Lymphocytes # 1.2 Monocytes # 0.6 Eosinophils # 0.2 Basophils # 0.0 Nucleated Red Blood Cells # 0.0 Subjective 24 Hr Interval Summary Free Text/Dictation Patient complaining of swelling of feet bilaterally which she states is compromising her ability to walk. Requested to ambulate more and discussed will only happen once discharged to SNF. Discussed being accepted to [facility], pending sons approval. Pt concerned about distance but reassured is not much farther than [facility] since close to freeway access. Exam/Review of Systems Exam Vitals Vital Signs Date Temp Pulse Resp B/P (MAP) Pulse Ox O2 O2 Flow FiO2 Time Delivery Rate 01/21/19 97.5 85 18 119/67 98 08:06 (84) 01/20/19 Nasal 07:23 Cannula Intake and Output 01/20/19 01/20/19 01/21/19 1515:00 23:00 07:00 IntakeIntake Total 220 ml 100 ml BalanceBalance 220 ml 100 ml Exam General: Patient is laying in bed and answers questions appropriately. no acute distress Eyes: EOMI, pupils reactive to light Neck: Supple, nontender, midline Respiratory: Clear to auscultation bilaterally. no wheezing or rhonchi Cardiovascular: S1, S2, regular rate and rhythm, no obvious murmurs Gastrointestinal: soft, nontender to palpation, nondistended, bowel sounds heard. Ext: Moves all extremities spontaneously. no lower extremity edema appreciated Skin: No new skin lesions, surgical incision healed Results Results 24hrs Laboratory Tests Test 01/21/19 05:02 White Blood Count 4.4 #L Red Blood Count 3.27 L Hemoglobin 8.6 L Hematocrit 27.9 L Mean Corpuscular Volume 85.3 Mean Corpuscular Hemoglobin 26.3 L Mean Corpuscular Hemoglobin Concent 30.8 L Red Cell Distribution Width 20.7 H Platelet Count 215 # Mean Platelet Volume 9.1 Immature Granulocytes % 0.500 H Neutrophils % 52.9 Lymphocytes % 26.5 Monocytes % 14.6 H Eosinophils % 4.6 Basophils % 0.9 Nucleated Red Blood Cells % 0.0 Immature Granulocytes # 0.020 Neutrophils # 2.3 Lymphocytes # 1.2 Monocytes # 0.6 Eosinophils # 0.2 Basophils # 0.0 Nucleated Red Blood Cells # 0.0 Medications Medication Current Medications Albuterol (Ventolin Hfa) 2 puff Q4H PRN INH WHEEZING AND SOB; Start 12/01/18 at 21:00; Status Hold Ascorbic Acid (Vitamin C) 500 mg BID PO Last administered on 01/21/19 08:26; Admin Dose 500 MG; Start 12/01/18 at 21:00 Bupropion HCl (Wellbutrin Xl) 300 mg DAILY PO Last administered on 01/21/19 08:26; Admin Dose 300 MG; Start 12/02/18 at 09:00 Cholecalciferol (Vitamin D) 1,000 unit DAILY PO Last administered on 01/21/19 08:26; Admin Dose 1,000 UNIT; Start 12/02/18 at 09:00 Diclofenac Sodium (Voltaren 1% Gel) 2 gm TID PRN TP PAIN; Start 12/01/18 at 21:00 Levothyroxine Sodium (Synthroid) 100 mcg BEFORE BREAKFAST PO Last administered on 01/21/19 06:35; Admin Dose 100 MCG; Start 12/02/18 at 07:00 Multivitamins Therapeutic (Theragran) 1 tab DAILY PO Last administered on 01/21/19 08:26; Admin Dose 1 TAB; Start 12/02/18 at 09:00 Vitamin B Complex/ Vitamin C (Berocca) 1 cap DAILY PO Last administered on 01/21/19 08:26; Admin Dose 1 CAP; Start 12/02/18 at 09:00 Fish Oil (Fish Oil) 1,000 mg DAILY PO Last administered on 01/21/19 08:25; Admin Dose 1,000 MG; Start 12/02/18 at 09:00 Docusate Sodium (Colace) 100 mg Q12H PRN PO .CONSTIPATION; Start 12/01/18 at 22:00 Bisacodyl (Dulcolax) 5 mg DAILY PRN PO .CONSTIPATION; Start 12/01/18 at 22:00 Lidocaine (Xylocaine 1% (Mpf)) 30 ml ONCE PRN INJ aspiration ; Start 12/04/18 at 17:30 IV Flush (NS 3 ml) 3 ml PER PROTOCOL IV ; Start 12/05/18 at 21:30 Oxycodone HCl (Roxicodone) 15 mg Q4H PRN PO .PAIN Last administered on 12/30/18 13:42; Admin Dose 5 MG; Start 12/05/18 at 21:30 Oxycodone HCl (Roxicodone) 10 mg Q4H PRN PO .PAIN Last administered on 01/16/19at 02:22; Admin Dose 10 MG; Start 12/05/18 at 21:30 Oxycodone HCl (Roxicodone) 5 mg Q4H PRN PO .PAIN Last administered on 01/18/19at 21:31; Admin Dose 5 MG; Start 12/05/18 at 21:30 Hydromorphone HCl (Dilaudid) 1 mg Q3H PRN IV .BREAKTHROUGH PAIN Last admini stered on 12/06/18at 06:58; Admin Dose 1 MG; Start 12/05/18 at 21:30 Ondansetron HCl (Zofran Inj) 4 mg Q4H PRN IV NAUSEA/VOMITING; Start 12/06/18 at 21:30 Pantoprazole (Protonix Tab) 40 mg DAILY@06 PO Last administered on 01/21/19at 06:35; Admin Dose 40 MG; Start 12/07/18 at 06:00 Simethicone (Mylicon) 80 mg TID PRN PO .GAS; Start 12/05/18 at 21:30 Senna/Docusate Sodium (Senokot-S) 2 tab BID PRN PO .CONSTIPATION Last administered on 12/06/18at 08:54; Admin Dose 2 TAB; Start 12/05/18 at 21:30 Magnesium Hydroxide (Milk Of Mag) 30 ml HS PRN PO .CONSTIPATION; Start 12/05/18 at 21:30 Bisacodyl (Dulcolax Supp) 10 mg DAILY PRN [place] .CONSTIPATION; Start 12/05/18 at 21:30 Sodium Biphosphate/ Sodium Phosphate (Fleet Enema) 133 ml DAILY PRN [place] .CONSTIPATION; Start 12/05/18 at 21:30 Diphenhydramine HCl (Benadryl) 25 mg Q4H PRN IV .ITCHING; Start 12/05/18 at 21:30 Naloxone HCl (Narcan) 0.2 mg Q2M PRN IV .RESP RATE; Start 12/05/18 at 21:30 Bethanechol Chloride (Urecholine) 25 mg URINARY CATH D/C PRN PO UNABLE TO VOID; Start 12/05/18 at 21:30 Aspirin (Halfprin) 81 mg BID PO Last administered on 01/21/19 08:27; Admin Dose 81 MG; Start 12/06/18 at 09:00 Nystatin (Nystatin Powder) 1 applic BID TOP Last administered on 01/20/19 09:42; Admin Dose 1 APPLIC; Start 12/12/18 at 21:00 Albuterol (Proventil 0.083% (Neb)) 2.5 mg Q2H RESP THERAPY PRN HHN SHORTNESS OF BREATH; Start 12/15/18 at 12:00 Gabapentin (Neurontin) 300 mg TID PO Last administered on 01/21/19 08:26; Admin Dose 300 MG; Start 12/22/18 at 13:00 Methocarbamol (Robaxin) 750 mg TID PO Last administered on 01/21/19 08:26; Admin Dose 750 MG; Start 12/28/18 at 13:00 Linezolid (Zyvox) 600 mg BID PO Last administered on 01/21/19 08:26; Admin Dose 600 MG; Start 12/28/18 at 15:00 Acetaminophen (Tylenol Tab) 1,000 mg Q6 PRN PO pain Last administered on 01/19/19 03:29; Admin Dose 1,000 MG; Start 12/28/18 at 21:30 Alteplase, Recombinant (Cathflo (Activase)) 2 mg MAY REPEAT X1 PRN CATHETER IF CATHETER REMAINS OCCULUDED Last administered on 12/29/18 16:53; Admin Dose 2 MG; Start 12/29/18 at 16:00 Sodium Hypochlorite (Dakins Diluted (40)) 1 applic BID TP Last administered on 01/21/19 08:29; Admin Dose 1 APPLIC; Start 01/06/19 at 12:03 Cefepime HCl 50 ml @ 100 mls/hr Q12 IVPB Last administered on 01/21/19 08:25; Admin Dose 100 MLS/HR; Start 01/07/19 at 21:00 Collagenase (Santyl) 1 applic BID TOP Last administered on 01/21/19 08:28; Admin Dose 1 APPLIC; Start 01/07/19 at 21:00 Fluconazole (Diflucan) 100 mg DAILY PO Last administered on 01/21/19 08:26; Admin Dose 100 MG; Start 01/13/19 at 11:30 Lisinopril (Zestril) 2.5 mg DAILY PO Last administered on 01/21/19at 08:27; Admin Dose 2.5 MG; Start 01/17/19 at 09:00 Polyethylene Glycol (Miralax) 17 gm DAILY PRN PO constipation; Start 01/18/19 at 12:30 Senna (Senokot) 1 tab BID PRN PO constipation; Start 01/18/19 at 12:30 Lidocaine (Lidoderm) 1 patch QHS TD Last administered on 01/20/19at 20:37; Admin Dose 1 PATCH; Start 01/18/19 at 21:00 BALTAZAR BARAJAS MD January 21, 2019 10:56
[2019-01-21 13:56] VITALS: BP 110/57; PULSE 99; RESP 18
--- NOTE | 2019-01-21 15:09 | CONS ---
Assessment/Plan Assessment/Plan Hospital Course (Demo Recall) No events. Alert, feels good Antimicrobials: Cefepime, Zyvox fluconazole Microbiology: Blood culture on admission grew strep, urine culture grew E. coli, MRSA swab negative, repeat blood cultures negative. Sacral wound cx + VRE/Proteus/Strep/Marita 2D echo revealed no vegetations Physical examination: This is well-developed well-nourished elderly woman who is alert in no distress. Head atraumatic normocephalic neck is supple. Chest rise symmetrical breath sounds clear. Heart: S1-S2. Abdomen soft, bowel tones present. Extremities wnl Assessment: 1. 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 Status post sepsis 3. S/p streptococcal bacteremia 2 to #4 4. 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 S/p urinary tract infection 6. History of left total knee replacement 7. History of multilevel discectomy and posterior fusion from L1-L3, please see CT in the chart Plan: Remains stable, continue on current abx for 6 weeks to treat OM==> last day 02/19/19, may change PO Zyvox to IV Daptomycin if pt develops thrombocytopenia/leukopenia, monitor CBC Consultation Date/Type/Reason Admit Date/Time Dec 01, 2018 at 19:24 Initial Consult Date Type of Consult id Requesting Provider: TERESA COSBY Date/Time of Note DATE: 01/21/19 TIME: 15:09 Exam/Review of Systems Exam Vitals Vital Signs Date Temp Pulse Resp B/P (MAP) Pulse Ox O2 O2 Flow FiO2 Time Delivery Rate 01/21/19 98.7 99 18 110/57 98 13:56 (74) 01/20/19 Nasal 07:23 Cannula Intake and Output 01/20/19 01/20/19 01/21/19 1515:00 23:00 07:00 IntakeIntake Total 220 ml 100 ml BalanceBalance 220 ml 100 ml Results Result Diagram: 01/21/19 0502 Results 24hrs Laboratory Tests Test 01/21/19 05:02 White Blood Count 4.4 #L Red Blood Count 3.27 L Hemoglobin 8.6 L Hematocrit 27.9 L Mean Corpuscular Volume 85.3 Mean Corpuscular Hemoglobin 26.3 L Mean Corpuscular Hemoglobin Concent 30.8 L Red Cell Distribution Width 20.7 H Platelet Count 215 # Mean Platelet Volume 9.1 Immature Granulocytes % 0.500 H Neutrophils % 52.9 Lymphocytes % 26.5 Monocytes % 14.6 H Eosinophils % 4.6 Basophils % 0.9 Nucleated Red Blood Cells % 0.0 Immature Granulocytes # 0.020 Neutrophils # 2.3 Lymphocytes # 1.2 Monocytes # 0.6 Eosinophils # 0.2 Basophils # 0.0 Nucleated Red Blood Cells # 0.0 Medications Medication Current Medications Albuterol (Ventolin Hfa) 2 puff Q4H PRN INH WHEEZING AND SOB; Start 12/01/18 at 21:00; Status Hold Ascorbic Acid (Vitamin C) 500 mg BID PO Last administered on 01/21/19 08:26; Admin Dose 500 MG; Start 12/01/18 at 21:00 Bupropion HCl (Wellbutrin Xl) 300 mg DAILY PO Last administered on 01/21/19 08:26; Admin Dose 300 MG; Start 12/02/18 at 09:00 Cholecalciferol (Vitamin D) 1,000 unit DAILY PO Last administered on 01/21/19 08:26; Admin Dose 1,000 UNIT; Start 12/02/18 at 09:00 Diclofenac Sodium (Voltaren 1% Gel) 2 gm TID PRN TP PAIN; Start 12/01/18 at 21:00 Levothyroxine Sodium (Synthroid) 100 mcg BEFORE BREAKFAST PO Last administered on 01/21/19 06:35; Admin Dose 100 MCG; Start 12/02/18 at 07:00 Multivitamins Therapeutic (Theragran) 1 tab DAILY PO Last administered on 01/21/19 08:26; Admin Dose 1 TAB; Start 12/02/18 at 09:00 Vitamin B Complex/ Vitamin C (Berocca) 1 cap DAILY PO Last administered on 01/21/19 08:26; Admin Dose 1 CAP; Start 12/02/18 at 09:00 Fish Oil (Fish Oil) 1,000 mg DAILY PO Last administered on 01/21/19 08:25; Admin Dose 1,000 MG; Start 12/02/18 at 09:00 Docusate Sodium (Colace) 100 mg Q12H PRN PO .CONSTIPATION; Start 12/01/18 at 22:00 Bisacodyl (Dulcolax) 5 mg DAILY PRN PO .CONSTIPATION; Start 12/01/18 at 22:00 Lidocaine (Xylocaine 1% (Mpf)) 30 ml ONCE PRN INJ aspiration ; Start 12/04/18 at 17:30 IV Flush (NS 3 ml) 3 ml PER PROTOCOL IV ; Start 12/05/18 at 21:30 Oxycodone HCl (Roxicodone) 15 mg Q4H PRN PO .PAIN Last administered on 12/30/18at 13:42; Admin Dose 5 MG; Start 12/05/18 at 21:30 Oxycodone HCl (Roxicodone) 10 mg Q4H PRN PO .PAIN Last administered on 01/16/19 02:22; Admin Dose 10 MG; Start 12/05/18 at 21:30 Oxycodone HCl (Roxicodone) 5 mg Q4H PRN PO .PAIN Last administered on 01/18/19 21:31; Admin Dose 5 MG; Start 12/05/18 at 21:30 Hydromorphone HCl (Dilaudid) 1 mg Q3H PRN IV .BREAKTHROUGH PAIN Last administered on 12/06/18 06:58; Admin Dose 1 MG; Start 12/05/18 at 21:30 Ondansetron HCl (Zofran Inj) 4 mg Q4H PRN IV NAUSEA/VOMITING; Start 12/06/18 at 21:30 Pantoprazole (Protonix Tab) 40 mg DAILY@06 PO Last administered on 01/21/19at 06:35; Admin Dose 40 MG; Start 12/07/18 at 06:00 Simethicone (Mylicon) 80 mg TID PRN PO .GAS; Start 12/05/18 at 21:30 Senna/Docusate Sodium (Senokot-S) 2 tab BID PRN PO .CONSTIPATION Last administered on 12/06/18 08:54; Admin Dose 2 TAB; Start 12/05/18 at 21:30 Magnesium Hydroxide (Milk Of Mag) 30 ml HS PRN PO .CONSTIPATION; Start 12/05/18 at 21:30 Bisacodyl (Dulcolax Supp) 10 mg DAILY PRN [place] .CONSTIPATION; Start 12/05/18 at 21:30 Sodium Biphosphate/ Sodium Phosphate (Fleet Enema) 133 ml DAILY PRN NM .CONSTIPATION; Start 12/05/18 at 21:30 Diphenhydramine HCl (Benadryl) 25 mg Q4H PRN IV .ITCHING; Start 12/05/18 at 21:30 Naloxone HCl (Narcan) 0.2 mg Q2M PRN IV .RESP RATE; Start 12/05/18 at 21:30 Bethanechol Chloride (Urecholine) 25 mg URINARY CATH D/C PRN PO UNABLE TO VOID; Start 12/05/18 at 21:30 Aspirin (Halfprin) 81 mg BID PO Last administered on 01/21/19 08:27; Admin Dose 81 MG; Start 12/06/18 at 09:00 Nystatin (Nystatin Powder) 1 applic BID TOP Last administered on 01/20/19 09:42; Admin Dose 1 APPLIC; Start 12/12/18 at 21:00 Albuterol (Proventil 0.083% (Neb)) 2.5 mg Q2H RESP THERAPY PRN HHN SHORTNESS OF BREATH; Start 12/15/18 at 12:00 Gabapentin (Neurontin) 300 mg TID PO Last administered on 01/21/19 12:41; Admin Dose 300 MG; Start 12/22/18 at 13:00 Methocarbamol (Robaxin) 750 mg TID PO Last administered on 01/21/19 12:41; Admin Dose 750 MG; Start 12/28/18 at 13:00 Linezolid (Zyvox) 600 mg BID PO Last administered on 01/21/19 08:26; Admin Dose 600 MG; Start 12/28/18 at 15:00 Acetaminophen (Tylenol Tab) 1,000 mg Q6 PRN PO pain Last administered on 01/19/19 03:29; Admin Dose 1,000 MG; Start 12/28/18 at 21:30 Alteplase, Recombinant (Cathflo (Activase)) 2 mg MAY REPEAT X1 PRN CATHETER IF CATHETER REMAINS OCCULUDED Last administered on 12/29/18 16:53; Admin Dose 2 MG; Start 12/29/18 at 16:00 Sodium Hypochlorite (Dakins Diluted ()) 1 applic BID TP Last administered on 01/21/19 08:29; Admin Dose 1 APPLIC; Start 01/06/19 at 12:03 Cefepime HCl 50 ml @ 100 mls/hr Q12 IVPB Last administered on 01/21/19 08:25; Admin Dose 100 MLS/HR; Start 01/07/19 at 21:00 Collagenase (Santyl) 1 applic BID TOP Last administered on 01/21/19 08:28; Admin Dose 1 APPLIC; Start 01/07/19 at 21:00 Fluconazole (Diflucan) 100 mg DAILY PO Last administered on 01/21/19 08:26; Admin Dose 100 MG; Start 01/13/19 at 11:30 Lisinopril (Zestril) 2.5 mg DAILY PO Last administered on 01/21/19 08:27; Admin Dose 2.5 MG; Start 01/17/19 at 09:00 Polyethylene Glycol (Miralax) 17 gm DAILY PRN PO constipation; Start 01/18/19 at 12:30 Senna (Senokot) 1 tab BID PRN PO constipation; Start 01/18/19 at 12:30 Lidocaine (Lidoderm) 1 patch QHS TD Last administered on 01/20/19at 20:37; Admin Dose 1 PATCH; Start 01/18/19 at 21:00 Miscellaneous Information (*Order Clarification Bulletin) MEDICATION REQUIRES CLARIFICATI... Q8H XX ; Start 01/21/19 at 13:30; Stop 01/23/19 at 13:29 OZZIE SOLOMON NP January 21, 2019 15:09
[2019-01-21 20:30] VITALS: BP 126/59; PULSE 91; RESP 18
[2019-01-21] MEDS: LIDOCAINE 5% PATCH TD SCH (21:12)
[2019-01-22 01:58] VITALS: BP 122/62; PULSE 86; RESP 18
[2019-01-22] MEDS: PANTOPRAZOLE (EC) 40 MG TAB PO SCH (05:57)
[2019-01-22] MEDS: LEVOTHYROXINE 100 MCG TAB PO SCH (05:57)
[2019-01-22] MEDS: CEFEPIME 1GM/50 ML (PMX) 50 ML IVPB SCH ×2 (08:16→21:24)
[2019-01-22] MEDS: METHOCARBAMOL 750 MG TAB PO SCH ×3 (08:17→21:25)
[2019-01-22] MEDS: FISH OIL 1,000 MG CAP PO SCH (08:17)
[2019-01-22] MEDS: ASPIRIN (EC) 81 MG TAB PO SCH ×2 (08:17→21:26)
[2019-01-22] MEDS: MULTIVITAMINS THERAPEUTIC TAB PO SCH (08:17)
[2019-01-22] MEDS: GABAPENTIN 300 MG CAP PO SCH ×3 (08:17→21:26)
[2019-01-22] MEDS: ZYVOX 600 MG TAB PO SCH ×2 (08:17→21:26)
[2019-01-22] MEDS: LISINOPRIL 5 MG TAB PO SCH (08:17)
[2019-01-22] MEDS: ASCORBIC ACID 500 MG TAB PO SCH ×2 (08:17→21:26)
[2019-01-22] MEDS: VITAMIN B COMPLEX/VIT C CAP PO SCH (08:17)
[2019-01-22] MEDS: CHOLECALCIFEROL 1,000 UNIT TAB PO SCH (08:17)
[2019-01-22] MEDS: FLUCONAZOLE 100 MG TAB PO SCH (08:17)
[2019-01-22] MEDS: COLLAGENASE 5 GM (UD JAR) TOP SCH ×2 (08:18→21:29)
[2019-01-22] MEDS: BUPROPION (XL) 150 MG TAB PO SCH (08:18)
[2019-01-22] MEDS: NYSTATIN 30 GM POWDER BTL TOP SCH ×2 (08:18→21:28)
[2019-01-22] MEDS: DAKINS 0.0125%(1/40) 473 ML SOLUTION TP SCH ×2 (08:18→21:28)
[2019-01-22] MEDS: BALSAM PERU/CASTOR OIL 60 GM TUBE TOP SCH ×2 (08:18→21:29)
--- NOTE | 2019-01-22 11:06 | PN ---
Date/Time of Note Date/Time of Note DATE: 01/22/19 TIME: 11:04 Assessment/Plan VTE Prophylaxis Risk score (from Nsg)>0 risk: 3 SCD applied (from Nsg): Yes Pharmacological prophylaxis: LMWH Lines/Catheters IV Catheter Type (from Nrsg): PICC Line Central line still needed: Yes Urinary Cath still in place: No Assessment/Plan Assessment/Plan 1. Sepsis secondary to decubitus ulcers and osteomyelitis-resolved - Repeat sacral wound only growing Marita. No need for any further isolation - ID on board and appreciate recommendations - Continue antibiotics for sacral OM until 02/19 2. Septic R knee joint s/p I&D on 12/05/18- resolved - remains stable and incision site clean and dry - Ortho consultation appreciated - pain control 3. Left leg muscle spasm - Robaxin TID 4. Sacral wound with OM s/p debridement - General surgery consultation appreciated and cleared for d/c from their standpoint. Continue antibiotics and local wound care - Bone biopsy shows OM, continue IV antibiotics until 02/19/2019 - ID recommendations appreciated 5. Chronic spinal disease - h/o significant stenosis of her spine. Lumbar spine and thoracic spine CT show signs of stenosis though no acute fractures. - continue lidocaine patch 6. osteoarthritis - pain control 7. urinary tract infection- treated 8. Strep Bacteremia-resolved 9. History of falls - Continue PT 10. Disposition - Medically stable for discharge home Result Diagram: 01/21/19 0502 01/22/19 0447 Results 24hrs Laboratory Tests Test 01/22/19 04:47 Sodium Level 142 Potassium Level 3.9 Chloride Level 108 Carbon Dioxide Level 27 Anion Gap 7 Blood Urea Nitrogen 13 Creatinine 0.55 Glucose Level 83 Calcium Level 8.8 Phosphorus Level 4.0 Magnesium Level 2.0 Albumin 3.1 L Subjective 24 Hr Interval Summary Free Text/Dictation Patient still with discomfort of left foot but reassured its secondary to arthritis. No acute overnight events. Exam/Review of Systems Exam Vitals Vital Signs Date Temp Pulse Resp B/P (MAP) Pulse Ox O2 O2 Flow FiO2 Time Delivery Rate 01/22/19 98.7 86 18 122/62 97 01:58 (82) 01/20/19 Nasal 07:23 Cannula Intake and Output 01/21/19 01/21/19 01/22/19 1515:00 23:00 07:00 IntakeIntake Total 250 ml 290 ml 200 ml BalanceBalance 250 ml 290 ml 200 ml Exam General: Patient is ambulating to chair in no acute distress Eyes: EOMI, pupils reactive to light Neck: Supple, nontender, midline Respiratory: Clear to auscultation bilaterally. no wheezing or rhonchi Cardiovascular: S1, S2, regular rate and rhythm, no obvious murmurs Gastrointestinal: soft, nontender to palpation, nondistended, bowel sounds heard. Ext: Moves all extremities spontaneously. no lower extremity edema appreciated Skin: No new skin lesions, surgical incision healed Results Results 24hrs Laboratory Tests Test 01/22/19 04:47 Sodium Level 142 Potassium Level 3.9 Chloride Level 108 Carbon Dioxide Level 27 Anion Gap 7 Blood Urea Nitrogen 13 Creatinine 0.55 Glucose Level 83 Calcium Level 8.8 Phosphorus Level 4.0 Magnesium Level 2.0 Albumin 3.1 L Medications Medication Current Medications Albuterol (Ventolin Hfa) 2 puff Q4H PRN INH WHEEZING AND SOB; Start 12/01/18 at 21:00; Status Hold Ascorbic Acid (Vitamin C) 500 mg BID PO Last administered on 01/22/19 08:17; Admin Dose 500 MG; Start 12/01/18 at 21:00 Bupropion HCl (Wellbutrin Xl) 300 mg DAILY PO Last administered on 01/22/19 08:18; Admin Dose 300 MG; Start 12/02/18 at 09:00 Cholecalciferol (Vitamin D) 1,000 unit DAILY PO Last administered on 01/22/19 08:17; Admin Dose 1,000 UNIT; Start 12/02/18 at 09:00 Diclofenac Sodium (Voltaren 1% Gel) 2 gm TID PRN TP PAIN; Start 12/01/18 at 21:00 Levothyroxine Sodium (Synthroid) 100 mcg BEFORE BREAKFAST PO Last administered on 01/22/19 05:57; Admin Dose 100 MCG; Start 12/02/18 at 07:00 Multivitamins Therapeutic (Theragran) 1 tab DAILY PO Last administered on 01/22/19 08:17; Admin Dose 1 TAB; Start 12/02/18 at 09:00 Vitamin B Complex/ Vitamin C (Berocca) 1 cap DAILY PO Last administered on 01/22/19 08:17; Admin Dose 1 CAP; Start 12/02/18 at 09:00 Fish Oil (Fish Oil) 1,000 mg DAILY PO Last administered on 01/22/19 08:17; Admin Dose 1,000 MG; Start 12/02/18 at 09:00 Docusate Sodium (Colace) 100 mg Q12H PRN PO .CONSTIPATION; Start 12/01/18 at 22:00 Bisacodyl (Dulcolax) 5 mg DAILY PRN PO .CONSTIPATION; Start 12/01/18 at 22:00 Lidocaine (Xylocaine 1% (Mpf)) 30 ml ONCE PRN INJ aspiration ; Start 12/04/18 at 17:30 IV Flush (NS 3 ml) 3 ml PER PROTOCOL IV ; Start 12/05/18 at 21:30 Oxycodone HCl (Roxicodone) 15 mg Q4H PRN PO .PAIN Last administered on 12/30/18 13:42; Admin Dose 5 MG; Start 12/05/18 at 21:30 Oxycodone HCl (Roxicodone) 10 mg Q4H PRN PO .PAIN Last administered on 01/16/19 02:22; Admin Dose 10 MG; Start 12/05/18 at 21:30 Oxycodone HCl (Roxicodone) 5 mg Q4H PRN PO .PAIN Last administered on 01/18/19 21:31; Admin Dose 5 MG; Start 12/05/18 at 21:30 Hydromorphone HCl (Dilaudid) 1 mg Q3H PRN IV .BREAKTHROUGH PAIN Last administered on 12/06/18 06:58; Admin Dose 1 MG; Start 12/05/18 at 21:30 Ondansetron HCl (Zofran Inj) 4 mg Q4H PRN IV NAUSEA/VOMITING; Start 12/06/18 at 21:30 Pantoprazole (Protonix Tab) 40 mg DAILY@06 PO Last administered on 01/22/19 05:57; Admin Dose 40 MG; Start 12/07/18 at 06:00 Simethicone (Mylicon) 80 mg TID PRN PO .GAS; Start 12/05/18 at 21:30 Senna/Docusate Sodium (Senokot-S) 2 tab BID PRN PO .CONSTIPATION Last administered on 12/06/18 08:54; Admin Dose 2 TAB; Start 12/05/18 at 21:30 Magnesium Hydroxide (Milk Of Mag) 30 ml HS PRN PO .CONSTIPATION; Start 12/05/18 at 21:30 Bisacodyl (Dulcolax Supp) 10 mg DAILY PRN NH .CONSTIPATION; Start 12/05/18 at 21:30 Sodium Biphosphate/ Sodium Phosphate (Fleet Enema) 133 ml DAILY PRN NH .CONSTIPATION; Start 12/05/18 at 21:30 Diphenhydramine HCl (Benadryl) 25 mg Q4H PRN IV .ITCHING; Start 12/05/18 at 21:30 Naloxone HCl (Narcan) 0.2 mg Q2M PRN IV .RESP RATE; Start 12/05/18 at 21:30 Bethanechol Chloride (Urecholine) 25 mg URINARY CATH D/C PRN PO UNABLE TO VOID; Start 12/05/18 at 21:30 Aspirin (Halfprin) 81 mg BID PO Last administered on 01/22/19 08:17; Admin Dose 81 MG; Start 12/06/18 at 09:00 Nystatin (Nystatin Powder) 1 applic BID TOP Last administered on 01/21/19 21:21; Admin Dose 1 APPLIC; Start 12/12/18 at 21:00 Albuterol (Proventil 0.083% (Neb)) 2.5 mg Q2H RESP THERAPY PRN HHN SHORTNESS OF BREATH; Start 12/15/18 at 12:00 Gabapentin (Neurontin) 300 mg TID PO Last administered on 01/22/19 08:17; Admin Dose 300 MG; Start 12/22/18 at 13:00 Methocarbamol (Robaxin) 750 mg TID PO Last administered on 01/22/19 08:17; Admin Dose 750 MG; Start 12/28/18 at 13:00 Linezolid (Zyvox) 600 mg BID PO Last administered on 01/22/19 08:17; Admin Dose 600 MG; Start 12/28/18 at 15:00 Acetaminophen (Tylenol Tab) 1,000 mg Q6 PRN PO pain Last administered on 01/19/19 03:29; Admin Dose 1,000 MG; Start 12/28/18 at 21:30 Alteplase, Recombinant (Cathflo (Activase)) 2 mg MAY REPEAT X1 PRN CATHETER IF CATHETER REMAINS OCCULUDED Last administered on 12/29/18 16:53; Admin Dose 2 MG; Start 12/29/18 at 16:00 Sodium Hypochlorite (Dakins Diluted ()) 1 applic BID TP Last administered on 01/22/19 08:18; Admin Dose 1 APPLIC; Start 01/06/19 at 12:03 Cefepime HCl 50 ml @ 100 mls/hr Q12 IVPB Last administered on 01/22/19 08:16; Admin Dose 100 MLS/HR; Start 01/07/19 at 21:00 Collagenase (Santyl) 1 applic BID TOP Last administered on 01/22/19 08:18; Admin Dose 1 APPLIC; Start 01/07/19 at 21:00 Fluconazole (Diflucan) 100 mg DAILY PO Last administered on 01/22/19 08:17; Admin Dose 100 MG; Start 01/13/19 at 11:30 Lisinopril (Zestril) 2.5 mg DAILY PO Last administered on 01/22/19 08:17; Admin Dose 2.5 MG; Start 01/17/19 at 09:00 Polyethylene Glycol (Miralax) 17 gm DAILY PRN PO constipation; Start 01/18/19 at 12:30 Senna (Senokot) 1 tab BID PRN PO constipation; Start 01/18/19 at 12:30 Lidocaine (Lidoderm) 1 patch QHS TD Last administered on 01/21/19at 21:12; Admin Dose 1 PATCH; Start 01/18/19 at 21:00 Miscellaneous Information (*Order Clarification Bulletin) MEDICATION REQUIRES CLARIFICATI... Q8H XX ; Start 01/21/19 at 13:30; Stop 01/23/19 at 13:29 BALTAZAR BARAJAS MD January 22, 2019 11:06
[2019-01-22] MEDS ORDERED: FLUC100T PO (11:09)
[2019-01-22] MEDS ORDERED: OXYC-481 PO (11:09)
[2019-01-22] MEDS ORDERED: METH750T2 PO (11:09)
[2019-01-22] MEDS ORDERED: LISI2.5T59 PO (11:09)
[2019-01-22] MEDS ORDERED: LINE600T33 PO (11:09)
--- NOTE | 2019-01-22 11:13 | PDOCDIS ---
Discharge Instructions DIAGNOSIS Discharge Diagnosis 1. Sepsis secondary to decubitus ulcers and osteomyelitis-resolved 2. Septic R knee joint s/p I&D on 12/05/18- resolved 3. Left leg muscle spasm 4. Sacral wound with OM s/p debridement 5. Chronic spinal disease 6. osteoarthritis 7. urinary tract infection- treated 8. Strep Bacteremia-resolved 9. History of falls CONDITION [id number] Patient Condition: [id number] Stable HOME CARE INSTRUCTIONS: [id number] Diet Instructions: [id number] Low Fat /Cholesterol ACTIVITY: [id number] Activity Restrictions: [id number] Slowly Increase Activity Rest between Activity Avoid heavy lifting No Sexual Activity Do not Drive Do not operate Machinery Do not operate Power Tool Avoid Heavy Housework [id number] Bathing Restrictions: [id number] Sponge Bath FOLLOW UP/APPOINTMENTS Follow-up Plan 1. Follow up with your primary care physician in 1-2 weeks 2. You will need to continue on antibiotics until 02/19/19 3. If you are experiencing any issues with your right knee, please call Dr. Glover's office 4. Take all other medications as prescribed 5. Wound care will be continued at the skilled facility 6. If experiencing any concerning symptoms, please go to your nearest emergency department REFERRALS Other Referrals Akbar Glover MD Specialty: Orthopedic Surgery Office Address [id number] [place] [id number] Office BALTAZAR BARAJAS MD January 22, 2019 11:13
--- NOTE | 2019-01-22 14:31 | CONS ---
Assessment/Plan Assessment/Plan Hospital Course (Demo Recall) No events. Alert, feels good Antimicrobials: Cefepime, Zyvox fluconazole Microbiology: Blood culture on admission grew strep, urine culture grew E. coli, MRSA swab negative, repeat blood cultures negative. Sacral wound cx + VRE/Proteus/Strep/Marita 2D echo revealed no vegetations Physical examination: This is well-developed well-nourished elderly woman who is alert in no distress. Head atraumatic normocephalic neck is supple. Chest rise symmetrical breath sounds clear. Heart: S1-S2. Abdomen soft, bowel tones present. Extremities wnl Assessment: 1. 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 Status post sepsis 3. S/p streptococcal bacteremia 2 to #4 4. 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 S/p urinary tract infection 6. History of left total knee replacement 7. History of multilevel discectomy and posterior fusion from L1-L3, please see CT in the chart Plan: Remains stable, continue on current abx for 6 weeks to treat OM==> last day 02/19/19, may change PO Zyvox to IV Daptomycin if pt develops thrombocytopenia/leukopenia, monitor CBC Consultation Date/Type/Reason Admit Date/Time Dec 01, 2018 at 19:24 Initial Consult Date Type of Consult id Requesting Provider: TERESA COSBY Date/Time of Note DATE: 01/22/19 TIME: 14:30 Exam/Review of Systems Exam Vitals Vital Signs Date Temp Pulse Resp B/P (MAP) Pulse Ox O2 O2 Flow FiO2 Time Delivery Rate 01/22/19 98.7 86 18 122/62 97 01:58 (82) 01/20/19 Nasal 07:23 Cannula Intake and Output 01/21/19 01/21/19 01/22/19 1515:00 23:00 07:00 IntakeIntake Total 250 ml 290 ml 200 ml BalanceBalance 250 ml 290 ml 200 ml Results Result Diagram: 01/21/19 0502 01/22/19 0447 Results 24hrs Laboratory Tests Test 01/22/19 04:47 Sodium Level 142 Potassium Level 3.9 Chloride Level 108 Carbon Dioxide Level 27 Anion Gap 7 Blood Urea Nitrogen 13 Creatinine 0.55 Glucose Level 83 Calcium Level 8.8 Phosphorus Level 4.0 Magnesium Level 2.0 Albumin 3.1 L Medications Medication Current Medications Albuterol (Ventolin Hfa) 2 puff Q4H PRN INH WHEEZING AND SOB; Start 12/01/18 at 21:00; Status Hold Ascorbic Acid (Vitamin C) 500 mg BID PO Last administered on 01/22/19 08:17; Admin Dose 500 MG; Start 12/01/18 at 21:00 Bupropion HCl (Wellbutrin Xl) 300 mg DAILY PO Last administered on 01/22/19 08:18; Admin Dose 300 MG; Start 12/02/18 at 09:00 Cholecalciferol (Vitamin D) 1,000 unit DAILY PO Last administered on 01/22/19 08:17; Admin Dose 1,000 UNIT; Start 12/02/18 at 09:00 Diclofenac Sodium (Voltaren 1% Gel) 2 gm TID PRN TP PAIN; Start 12/01/18 at 21:00 Levothyroxine Sodium (Synthroid) 100 mcg BEFORE BREAKFAST PO Last administered on 01/22/19 05:57; Admin Dose 100 MCG; Start 12/02/18 at 07:00 Multivitamins Therapeutic (Theragran) 1 tab DAILY PO Last administered on 01/22/19 08:17; Admin Dose 1 TAB; Start 12/02/18 at 09:00 Vitamin B Complex/ Vitamin C (Berocca) 1 cap DAILY PO Last administered on 01/22/19 08:17; Admin Dose 1 CAP; Start 12/02/18 at 09:00 Fish Oil (Fish Oil) 1,000 mg DAILY PO Last administered on 01/22/19 08:17; Admin Dose 1,000 MG; Start 12/02/18 at 09:00 Docusate Sodium (Colace) 100 mg Q12H PRN PO .CONSTIPATION; Start 12/01/18 at 22:00 Bisacodyl (Dulcolax) 5 mg DAILY PRN PO .CONSTIPATION; Start 12/01/18 at 22:00 Lidocaine (Xylocaine 1% (Mpf)) 30 ml ONCE PRN INJ aspiration ; Start 12/04/18 at 17:30 IV Flush (NS 3 ml) 3 ml PER PROTOCOL IV ; Start 12/05/18 at 21:30 Oxycodone HCl (Roxicodone) 15 mg Q4H PRN PO .PAIN Last administered on 12/30/18 13:42; Admin Dose 5 MG; Start 12/05/18 at 21:30 Oxycodone HCl (Roxicodone) 10 mg Q4H PRN PO .PAIN Last administered on 01/16/19 02:22; Admin Dose 10 MG; Start 12/05/18 at 21:30 Oxycodone HCl (Roxicodone) 5 mg Q4H PRN PO .PAIN Last administered on 01/18/19 21:31; Admin Dose 5 MG; Start 12/05/18 at 21:30 Hydromorphone HCl (Dilaudid) 1 mg Q3H PRN IV .BREAKTHROUGH PAIN Last administered on 12/06/18 06:58; Admin Dose 1 MG; Start 12/05/18 at 21:30 Ondansetron HCl (Zofran Inj) 4 mg Q4H PRN IV NAUSEA/VOMITING; Start 12/06/18 at 21:30 Pantoprazole (Protonix Tab) 40 mg DAILY@06 PO Last administered on 01/22/19 05:57; Admin Dose 40 MG; Start 12/07/18 at 06:00 Simethicone (Mylicon) 80 mg TID PRN PO .GAS; Start 12/05/18 at 21:30 Senna/Docusate Sodium (Senokot-S) 2 tab BID PRN PO .CONSTIPATION Last administered on 12/06/18 08:54; Admin Dose 2 TAB; Start 12/05/18 at 21:30 Magnesium Hydroxide (Milk Of Mag) 30 ml HS PRN PO .CONSTIPATION; Start 12/05/18 at 21:30 Bisacodyl (Dulcolax Supp) 10 mg DAILY PRN NH .CONSTIPATION; Start 12/05/18 at 21:30 Sodium Biphosphate/ Sodium Phosphate (Fleet Enema) 133 ml DAILY PRN NH .CONSTIPATION; Start 12/05/18 at 21:30 Diphenhydramine HCl (Benadryl) 25 mg Q4H PRN IV .ITCHING; Start 12/05/18 at 21:30 Naloxone HCl (Narcan) 0.2 mg Q2M PRN IV .RESP RATE; Start 12/05/18 at 21:30 Bethanechol Chloride (Urecholine) 25 mg URINARY CATH D/C PRN PO UNABLE TO VOID; Start 12/05/18 at 21:30 Aspirin (Halfprin) 81 mg BID PO Last administered on 01/22/19 08:17; Admin Dose 81 MG; Start 12/06/18 at 09:00 Nystatin (Nystatin Powder) 1 applic BID TOP Last administered on 01/21/19 21:21; Admin Dose 1 APPLIC; Start 12/12/18 at 21:00 Albuterol (Proventil 0.083% (Neb)) 2.5 mg Q2H RESP THERAPY PRN HHN SHORTNESS OF BREATH; Start 12/15/18 at 12:00 Gabapentin (Neurontin) 300 mg TID PO Last administered on 01/22/19 12:46; Admin Dose 300 MG; Start 12/22/18 at 13:00 Methocarbamol (Robaxin) 750 mg TID PO Last administered on 01/22/19 12:46; Admin Dose 750 MG; Start 12/28/18 at 13:00 Linezolid (Zyvox) 600 mg BID PO Last administered on 01/22/19 08:17; Admin Dose 600 MG; Start 12/28/18 at 15:00 Acetaminophen (Tylenol Tab) 1,000 mg Q6 PRN PO pain Last administered on 01/19/19 03:29; Admin Dose 1,000 MG; Start 12/28/18 at 21:30 Alteplase, Recombinant (Cathflo (Activase)) 2 mg MAY REPEAT X1 PRN CATHETER IF CATHETER REMAINS OCCULUDED Last administered on 12/29/18 16:53; Admin Dose 2 MG; Start 12/29/18 at 16:00 Sodium Hypochlorite (Dakins Diluted (40)) 1 applic BID TP Last administered on 01/22/19 08:18; Admin Dose 1 APPLIC; Start 01/06/19 at 12:03 Cefepime HCl 50 ml @ 100 mls/hr Q12 IVPB Last administered on 01/22/19 08:16; Admin Dose 100 MLS/HR; Start 01/07/19 at 21:00 Collagenase (Santyl) 1 applic BID TOP Last administered on 01/22/19 08:18; Admin Dose 1 APPLIC; Start 01/07/19 at 21:00 Fluconazole (Diflucan) 100 mg DAILY PO Last administered on 5/15/19at 08:17; Admin Dose 100 MG; Start 01/13/19 at 11:30 Lisinopril (Zestril) 2.5 mg DAILY PO Last administered on 01/22/19at 08:17; Admin Dose 2.5 MG; Start 01/17/19 at 09:00 Polyethylene Glycol (Miralax) 17 gm DAILY PRN PO constipation; Start 01/18/19 at 12:30 Senna (Senokot) 1 tab BID PRN PO constipation; Start 01/18/19 at 12:30 Lidocaine (Lidoderm) 1 patch QHS TD Last administered on 01/21/19at 21:12; Admin Dose 1 PATCH; Start 01/18/19 at 21:00 Miscellaneous Information (*Order Clarification Bulletin) MEDICATION REQUIRES CLARIFICATI... Q8H XX ; Start 01/21/19 at 13:30; Stop 01/23/19 at 13:29 OZZIE SOLOMON NP January 22, 2019 14:31
[2019-01-22 16:01] VITALS: BP 126/59; PULSE 86; RESP 18
[2019-01-22 19:41] VITALS: BP 116/64; PULSE 91; RESP 20
[2019-01-22] MEDS: LIDOCAINE 5% PATCH TD SCH (21:26)
--- NOTE | 2019-01-23 00:55 | PN ---
Date/Time of Note Date/Time of Note DATE: 01/20/19 TIME: 22:54 Assessment/Plan Lines/Catheters IV Catheter Type (from [facility]): PICC Line Schaeffer in Place (from [facility]): No Assessment/Plan Chief Complaint/Hosp Course 1. Sacral wound: + Wound cultures; status post repeat debridement 01/07/2019; bone pathology noted; soft bone noted during debridement> + osteo; repeat wound cultures noted> now off isolation Sacral coccyx ulcer biopsy:: fragments of bone with overlying cartilage showing bone necrosis and acute osteomyelitis. -cont antibiotics per ID -Repeat debridement as needed > can follow with Dr. Mcmanus at wound care clinic (discussed again with patient and son today) -Continue local care w santyl -frequent turning and off-loading -low air loss mattress -vitamin c -short term zinc -optimize nutrition -dc ok from surgical standpoint 2. Bacteremia: Repeat blood culture: NG 3.Septic right knee joint status post I&D: -Per Ortho 4. Spine disease: Status post spinal surgeries -Supportive 5.UTI: -abx per sensitivity -frequent bladder emptying/cath care 6. Osteoarthritis: -Medical management Thank you Late entry 01/20 Subjective 24 Hr Interval Summary Moderate drainage from wounds. Noted that wound was not packed as ordered. Discussed with nursing proper wound packing/care. No fevers, chills, sob, congested cough, cp, palpitations, ruano, dizziness, nausea, vomiting, diarrhea, dysuria. Exam/Review of Systems Vital Signs Vitals Vital Signs Date Temp Pulse Resp B/P (MAP) Pulse Ox O2 O2 Flow FiO2 Time Delivery Rate 01/22/19 98.6 91 20 116/64 100 Room Air 19:41 (81) Intake and Output 01/22/19 01/22/19 01/23/19 1515:00 23:00 07:00 IntakeIntake Total 650 ml BalanceBalance 650 ml Exam Free Text/Dictation Moderate drainage from wounds. Noted that wound was not packed as ordered. Discussed with nursing proper wound packing/care. No fevers, chills, sob, congested cough, cp, palpitations, ruano, dizziness, nausea, vomiting, diarrhea, dysuria. Constitutional: alert, oriented Psych: nl mood/affect; No anxiety Head: normocephalic, atraumatic Eyes: nl conjunctiva, EOMI, nl lids, nl sclera ENMT: nl external ears & nose, nl lips & teeth, nl nasal mucosa & septum, mucosa pink and moist Neck: supple, non-tender; No jvd Respiratory: normal air movement; No congested cough Cardiovascular: regular rate and rhythm, nl pulses; No edema Gastrointestinal: soft, non-tender; No distended Genitourinary - Female: nl external genitalia Musculoskeletal: nl extremities to inspection; No nl gait and stance Extremities: normal pulses Neurological: nl mental status, nl speech, nl strength Skin: nl turgor, other (Sacrum: Minimal Slough, moderate drainage, no odor, minimal periwound erythema-improved) Lymph: nl lymph nodes Results Result Diagram: 01/21/19 0502 01/22/19 0447 GABRILEA MCMANUS MD January 23, 2019 00:55
--- NOTE | 2019-01-23 00:56 | PN ---
Date/Time of Note Date/Time of Note DATE: 01/22/19 TIME: 22:55 Assessment/Plan Lines/Catheters IV Catheter Type (from [facility]): PICC Line Schaeffer in Place (from [facility]): No Assessment/Plan Chief Complaint/Hosp Course 1. Sacral wound: + Wound cultures; status post repeat debridement 01/07/2019; bone pathology noted; soft bone noted during debridement> + osteo; repeat wound cultures noted> now off isolation Sacral coccyx ulcer biopsy:: fragments of bone with overlying cartilage showing bone necrosis and acute osteomyelitis. -cont antibiotics per ID -Repeat debridement as needed > can follow with Dr. Mcmanus at wound care clinic (discussed again with patient and son today) -Continue local care w santyl -frequent turning and off-loading -low air loss mattress -vitamin c -short term zinc -optimize nutrition -dc ok from surgical standpoint 2. Bacteremia: Repeat blood culture: NG 3.Septic right knee joint status post I&D: -Per Ortho 4. Spine disease: Status post spinal surgeries -Supportive 5.UTI: -abx per sensitivity -frequent bladder emptying/cath care 6. Osteoarthritis: -Medical management Thank you Late entry 01/22 Subjective 24 Hr Interval Summary Moderate drainage from wounds. Noted that wound was not packed as ordered. Discussed with nursing proper wound packing/care. No fevers, chills, sob, congested cough, cp, palpitations, ruano, dizziness, nausea, vomiting, diarrhea, dysuria. Exam/Review of Systems Vital Signs Vitals Vital Signs Date Temp Pulse Resp B/P (MAP) Pulse Ox O2 O2 Flow FiO2 Time Delivery Rate 01/22/19 98.6 91 20 116/64 100 Room Air 19:41 (81) Intake and Output 01/22/19 01/22/19 01/23/19 1515:00 23:00 07:00 IntakeIntake Total 650 ml BalanceBalance 650 ml Exam Free Text/Dictation Constitutional: alert, oriented Psych: nl mood/affect; No anxiety Head: normocephalic, atraumatic Eyes: nl conjunctiva, EOMI, nl lids, nl sclera ENMT: nl external ears & nose, nl lips & teeth, nl nasal mucosa & septum, mucosa pink and moist Neck: supple, non-tender; No jvd Respiratory: normal air movement; No congested cough Cardiovascular: regular rate and rhythm, nl pulses; No edema Gastrointestinal: soft, non-tender; No distended Genitourinary - Female: nl external genitalia Musculoskeletal: nl extremities to inspection; No nl gait and stance Extremities: normal pulses Neurological: nl mental status, nl speech, nl strength Skin: nl turgor, other (Sacrum: Minimal Slough, moderate drainage, no odor, minimal periwound erythema-improved) Lymph: nl lymph nodes Results Result Diagram: 01/21/19 0502 01/22/19 0447 GABRIELA MCMANUS MD January 23, 2019 00:56
[2019-01-23] MEDS: oxyCODONE 5 MG TAB PO PRN (01:37)
[2019-01-23 02:27] VITALS: BP 112/64; PULSE 88; RESP 20
[2019-01-23] MEDS: LEVOTHYROXINE 100 MCG TAB PO SCH (06:20)
[2019-01-23] MEDS: PANTOPRAZOLE (EC) 40 MG TAB PO SCH (06:20)
[2019-01-23 08:06] VITALS: BP 118/66; PULSE 90; RESP 18
[2019-01-23] MEDS: ZYVOX 600 MG TAB PO SCH ×2 (08:23→21:11)
[2019-01-23] MEDS: FLUCONAZOLE 100 MG TAB PO SCH (08:23)
[2019-01-23] MEDS: MULTIVITAMINS THERAPEUTIC TAB PO SCH (08:23)
[2019-01-23] MEDS: GABAPENTIN 300 MG CAP PO SCH ×3 (08:23→21:11)
[2019-01-23] MEDS: ASPIRIN (EC) 81 MG TAB PO SCH ×2 (08:23→21:11)
[2019-01-23] MEDS: FISH OIL 1,000 MG CAP PO SCH (08:24)
[2019-01-23] MEDS: ASCORBIC ACID 500 MG TAB PO SCH ×2 (08:24→21:11)
[2019-01-23] MEDS: LISINOPRIL 5 MG TAB PO SCH (08:25)
[2019-01-23] MEDS: METHOCARBAMOL 750 MG TAB PO SCH ×3 (08:25→21:11)
[2019-01-23] MEDS: CHOLECALCIFEROL 1,000 UNIT TAB PO SCH (08:25)
[2019-01-23] MEDS: COLLAGENASE 5 GM (UD JAR) TOP SCH ×2 (08:26→21:11)
[2019-01-23] MEDS: VITAMIN B COMPLEX/VIT C CAP PO SCH (08:26)
[2019-01-23] MEDS: CEFEPIME 1GM/50 ML (PMX) 50 ML IVPB SCH ×2 (08:26→21:10)
[2019-01-23] MEDS: BUPROPION (XL) 150 MG TAB PO SCH (08:26)
[2019-01-23] MEDS: BALSAM PERU/CASTOR OIL 60 GM TUBE TOP SCH ×2 (08:27→21:13)
[2019-01-23] MEDS: DAKINS 0.0125%(1/40) 473 ML SOLUTION TP SCH ×2 (08:27→21:13)
[2019-01-23] MEDS: NYSTATIN 30 GM POWDER BTL TOP SCH ×2 (08:27→21:13)
--- NOTE | 2019-01-23 11:57 | PN ---
Date/Time of Note Date/Time of Note DATE: 01/23/19 TIME: 11:53 Assessment/Plan VTE Prophylaxis Risk score (from Ns)>0 risk: 6 SCD applied (from Ns): Yes Pharmacological prophylaxis: NA/contraindicated Pharm contraindication: low risk/ambulating Lines/Catheters IV Catheter Type (from Nrsg): PICC Line Central line still needed: Yes Urinary Cath still in place: No Assessment/Plan Assessment/Plan 1. Sepsis secondary to decubitus ulcers and osteomyelitis-resolved - Repeat sacral wound only growing Marita. No need for any further isolation - ID on board and appreciate recommendations - Continue antibiotics for sacral OM until 02/19 2. Septic R knee joint s/p I&D on 12/05/18- resolved - remains stable and incision site clean and dry - Ortho consultation appreciated - pain control 3. Left leg muscle spasm- improved - Robaxin TID 4. Sacral wound with OM s/p debridement - General surgery consultation appreciated and cleared for d/c from their standpoint. Continue antibiotics and local wound care. Can follow up at wound clinic as outpatient - Bone biopsy shows OM, continue IV antibiotics until 02/19/2019 - ID recommendations appreciated 5. Chronic spinal disease - h/o significant stenosis of her spine. Lumbar spine and thoracic spine CT show signs of stenosis though no acute fractures. - continue lidocaine patch 6. osteoarthritis - pain control 7. urinary tract infection- treated 8. Strep Bacteremia-resolved 9. History of falls - Continue PT 10. Disposition - Medically stable for discharge to SNF when accepted Result Diagram: 01/21/19 0502 01/22/19 0447 Subjective 24 Hr Interval Summary Free Text/Dictation Patient still complaining of soreness of left foot. Anxious to be discharged from the hospital. no acute overnight events. Exam/Review of Systems Exam Vitals Vital Signs Date Temp Pulse Resp B/P (MAP) Pulse Ox O2 O2 Flow FiO2 Time Delivery Rate 01/23/19 98.0 90 18 118/66 99 Room Air 08:06 (83) Intake and Output 01/22/19 01/22/19 01/23/19 1515:00 23:00 07:00 IntakeIntake Total 650 ml 50 ml BalanceBalance 650 ml 50 ml Exam General: Patient is ambulating to chair in no acute distress Respiratory: Clear to auscultation bilaterally. no wheezing or rhonchi Cardiovascular: S1, S2, regular rate and rhythm, no obvious murmurs Gastrointestinal: soft, nontender to palpation, nondistended, bowel sounds heard. Ext: Moves all extremities spontaneously. no lower extremity edema appreciated Skin: No new skin lesions, surgical incision healed Medications Medication Current Medications Albuterol (Ventolin Hfa) 2 puff Q4H PRN INH WHEEZING AND SOB; Start 12/01/18 at 21:00; Status Hold Ascorbic Acid (Vitamin C) 500 mg BID PO Last administered on 01/23/19 08:24; Admin Dose 500 MG; Start 12/01/18 at 21:00 Bupropion HCl (Wellbutrin Xl) 300 mg DAILY PO Last administered on 01/23/19 08:26; Admin Dose 300 MG; Start 12/02/18 at 09:00 Cholecalciferol (Vitamin D) 1,000 unit DAILY PO Last administered on 01/23/19 08:25; Admin Dose 1,000 UNIT; Start 12/02/18 at 09:00 Diclofenac Sodium (Voltaren 1% Gel) 2 gm TID PRN TP PAIN; Start 12/01/18 at 21:00 Levothyroxine Sodium (Synthroid) 100 mcg BEFORE BREAKFAST PO Last administered on 01/23/19 06:20; Admin Dose 100 MCG; Start 12/02/18 at 07:00 Multivitamins Therapeutic (Theragran) 1 tab DAILY PO Last administered on 01/23/19 08:23; Admin Dose 1 TAB; Start 12/02/18 at 09:00 Vitamin B Complex/ Vitamin C (Berocca) 1 cap DAILY PO Last administered on 01/23/19 08:26; Admin Dose 1 CAP; Start 12/02/18 at 09:00 Fish Oil (Fish Oil) 1,000 mg DAILY PO Last administered on 01/23/19 08:24; Admin Dose 1,000 MG; Start 12/02/18 at 09:00 Docusate Sodium (Colace) 100 mg Q12H PRN PO .CONSTIPATION; Start 12/01/18 at 22:00 Bisacodyl (Dulcolax) 5 mg DAILY PRN PO .CONSTIPATION; Start 12/01/18 at 22:00 Lidocaine (Xylocaine 1% (Mpf)) 30 ml ONCE PRN INJ aspiration ; Start 12/04/18 at 17:30 IV Flush (NS 3 ml) 3 ml PER PROTOCOL IV ; Start 12/05/18 at 21:30 Oxycodone HCl (Roxicodone) 15 mg Q4H PRN PO .PAIN Last administered on 12/30/18 13:42; Admin Dose 5 MG; Start 12/05/18 at 21:30 Oxycodone HCl (Roxicodone) 10 mg Q4H PRN PO .PAIN Last administered on 01/16/19 02:22; Admin Dose 10 MG; Start 12/05/18 at 21:30 Oxycodone HCl (Roxicodone) 5 mg Q4H PRN PO .PAIN Last administered on 01/23/19 01:37; Admin Dose 5 MG; Start 12/05/18 at 21:30 Hydromorphone HCl (Dilaudid) 1 mg Q3H PRN IV .BREAKTHROUGH PAIN Last administered on 12/06/18 06:58; Admin Dose 1 MG; Start 12/05/18 at 21:30 Ondansetron HCl (Zofran Inj) 4 mg Q4H PRN IV NAUSEA/VOMITING; Start 12/06/18 at 21:30 Pantoprazole (Protonix Tab) 40 mg DAILY@06 PO Last administered on 01/23/19 06:20; Admin Dose 40 MG; Start 12/07/18 at 06:00 Simethicone (Mylicon) 80 mg TID PRN PO .GAS; Start 12/05/18 at 21:30 Senna/Docusate Sodium (Senokot-S) 2 tab BID PRN PO .CONSTIPATION Last administered on 12/06/18 08:54; Admin Dose 2 TAB; Start 12/05/18 at 21:30 Magnesium Hydroxide (Milk Of Mag) 30 ml HS PRN PO .CONSTIPATION; Start 12/05/18 at 21:30 Bisacodyl (Dulcolax Supp) 10 mg DAILY PRN NM .CONSTIPATION; Start 12/05/18 at 21:30 Sodium Biphosphate/ Sodium Phosphate (Fleet Enema) 133 ml DAILY PRN NM .CONSTIPATION; Start 12/05/18 at 21:30 Diphenhydramine HCl (Benadryl) 25 mg Q4H PRN IV .ITCHING; Start 12/05/18 at 21:30 Naloxone HCl (Narcan) 0.2 mg Q2M PRN IV .RESP RATE; Start 12/05/18 at 21:30 Bethanechol Chloride (Urecholine) 25 mg URINARY CATH D/C PRN PO UNABLE TO VOID; Start 12/05/18 at 21:30 Aspirin (Halfprin) 81 mg BID PO Last administered on 01/23/19 08:23; Admin Dose 81 MG; Start 12/06/18 at 09:00 Nystatin (Nystatin Powder) 1 applic BID TOP Last administered on 01/23/19 08:27; Admin Dose 1 APPLIC; Start 12/12/18 at 21:00 Albuterol (Proventil 0.083% (Neb)) 2.5 mg Q2H RESP THERAPY PRN HHN SHORTNESS OF BREATH; Start 12/15/18 at 12:00 Gabapentin (Neurontin) 300 mg TID PO Last administered on 01/23/19 08:23; Admin Dose 300 MG; Start 12/22/18 at 13:00 Methocarbamol (Robaxin) 750 mg TID PO Last administered on 01/23/19 08:25; Admin Dose 750 MG; Start 12/28/18 at 13:00 Linezolid (Zyvox) 600 mg BID PO Last administered on 01/23/19 08:23; Admin Dose 600 MG; Start 12/28/18 at 15:00 Acetaminophen (Tylenol Tab) 1,000 mg Q6 PRN PO pain Last administered on 01/19/19 03:29; Admin Dose 1,000 MG; Start 12/28/18 at 21:30 Alteplase, Recombinant (Cathflo (Activase)) 2 mg MAY REPEAT X1 PRN CATHETER IF CATHETER REMAINS OCCULUDED Last administered on 12/29/18 16:53; Admin Dose 2 MG; Start 12/29/18 at 16:00 Sodium Hypochlorite (Dakins Diluted (40)) 1 applic BID TP Last administered on 01/23/19 08:27; Admin Dose 1 APPLIC; Start 01/06/19 at 12:03 Cefepime HCl 50 ml @ 100 mls/hr Q12 IVPB Last administered on 01/23/19 08:26; Admin Dose 100 MLS/HR; Start 01/07/19 at 21:00 Collagenase (Santyl) 1 applic BID TOP Last administered on 01/23/19 08:26; Admin Dose 1 APPLIC; Start 01/07/19 at 21:00 Fluconazole (Diflucan) 100 mg DAILY PO Last administered on 01/23/19 08:23; Admin Dose 100 MG; Start 01/13/19 at 11:30 Lisinopril (Zestril) 2.5 mg DAILY PO Last administered on 01/23/19 08:25; Admin Dose 2.5 MG; Start 01/17/19 at 09:00 Polyethylene Glycol (Miralax) 17 gm DAILY PRN PO constipation; Start 01/18/19 at 12:30 Senna (Senokot) 1 tab BID PRN PO constipation; Start 01/18/19 at 12:30 Lidocaine (Lidoderm) 1 patch QHS TD Last administered on 01/22/19at 21:26; Admin Dose 1 PATCH; Start 01/18/19 at 21:00 Miscellaneous Information (*Order Clarification Bulletin) MEDICATION REQUIRES CLARIFICATI... Q8H XX ; Start 01/21/19 at 13:30; Stop 01/23/19 at 13:29 Celecoxib (Celebrex) 100 mg BID PO ; Start 01/23/19 at 12:00 BALTAZAR BARAJAS MD January 23, 2019 11:57
[2019-01-23] MEDS: CELECOXIB 100 MG CAP PO SCH ×2 (12:31→21:11)
--- NOTE | 2019-01-23 13:47 | CONS ---
Assessment/Plan Assessment/Plan Hospital Course (Demo Recall) No events overnight patient is ambulating in the hallway with a walker no fevers looks comfortable Antimicrobials: Cefepime, Zyvox fluconazole Microbiology: Blood culture on admission grew strep, urine culture grew E. coli, MRSA swab negative, repeat blood cultures negative. Sacral wound cx + VRE/Proteus/Strep/Marita 2D echo revealed no vegetations Physical examination: This is well-developed well-nourished elderly woman who is alert in no distress. Head atraumatic normocephalic neck is supple. Chest rise symmetrical breath sounds clear. Heart: S1-S2. Abdomen soft, bowel tones p resent. Extremities wnl Assessment: 1. 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 Status post sepsis 3. S/p streptococcal bacteremia 2 to #4 4. 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 S/p urinary tract infection 6. History of left total knee replacement 7. History of multilevel discectomy and posterior fusion from L1-L3, please see CT in the chart Plan: Remains stable, continue on current abx for 6 weeks to treat OM==> last day 02/19/19, may change PO Zyvox to IV Daptomycin if pt develops thrombocytopen ia/leukopenia, CBC in a.m. Consultation Date/Type/Reason Admit Date/Time Dec 01, 2018 at 19:24 Initial Consult Date Type of Consult id Requesting Provider: TERESA COSBY Date/Time of Note DATE: 01/23/19 TIME: 13:46 Exam/Review of Systems Exam Vitals Vital Signs Date Temp Pulse Resp B/P (MAP) Pulse Ox O2 O2 Flow FiO2 Time Delivery Rate 01/23/19 98.0 90 18 118/66 99 Room Air 08:06 (83) Intake and Output 01/22/19 01/22/19 01/23/19 1515:00 23:00 07:00 IntakeIntake Total 650 ml 50 ml BalanceBalance 650 ml 50 ml Results Result Diagram: 01/21/19 0502 01/22/19 0440 Medications Medication Current Medications Albuterol (Ventolin Hfa) 2 puff Q4H PRN INH WHEEZING AND SOB; Start 12/01/18 at 21:00; Status Hold Ascorbic Acid (Vitamin C) 500 mg BID PO Last administered on 01/23/19 08:24; Admin Dose 500 MG; Start 12/01/18 at 21:00 Bupropion HCl (Wellbutrin Xl) 300 mg DAILY PO Last administered on 01/23/19 08:26; Admin Dose 300 MG; Start 12/02/18 at 09:00 Cholecalciferol (Vitamin D) 1,000 unit DAILY PO Last administered on 01/23/19 08:25; Admin Dose 1,000 UNIT; Start 12/02/18 at 09:00 Diclofenac Sodium (Voltaren 1% Gel) 2 gm TID PRN TP PAIN; Start 12/01/18 at 21:00 Levothyroxine Sodium (Synthroid) 100 mcg BEFORE BREAKFAST PO Last administered on 01/23/19 06:20; Admin Dose 100 MCG; Start 12/02/18 at 07:00 Multivitamins Therapeutic (Theragran) 1 tab DAILY PO Last administered on 01/23/19 08:23; Admin Dose 1 TAB; Start 12/02/18 at 09:00 Vitamin B Complex/ Vitamin C (Berocca) 1 cap DAILY PO Last administered on 01/23/19 08:26; Admin Dose 1 CAP; Start 12/02/18 at 09:00 Fish Oil (Fish Oil) 1,000 mg DAILY PO Last administered on 01/23/19 08:24; Admin Dose 1,000 MG; Start 12/02/18 at 09:00 Docusate Sodium (Colace) 100 mg Q12H PRN PO .CONSTIPATION; Start 12/01/18 at 22:00 Bisacodyl (Dulcolax) 5 mg DAILY PRN PO .CONSTIPATION; Start 12/01/18 at 22:00 Lidocaine (Xylocaine 1% (Mpf)) 30 ml ONCE PRN INJ aspiration ; Start 12/04/18 at 17:30 IV Flush (NS 3 ml) 3 ml PER PROTOCOL IV ; Start 12/05/18 at 21:30 Oxycodone HCl (Roxicodone) 15 mg Q4H PRN PO .PAIN Last administered on at 13:42; Admin Dose 5 MG; Start 12/05/18 at 21:30 Oxycodone HCl (Roxicodone) 10 mg Q4H PRN PO .PAIN Last administered on 01/16/19 02:22; Admin Dose 10 MG; Start 12/05/18 at 21:30 Oxycodone HCl (Roxicodone) 5 mg Q4H PRN PO .PAIN Last administered on 01/23/19 01:37; Admin Dose 5 MG; Start 12/05/18 at 21:30 Hydromorphone HCl (Dilaudid) 1 mg Q3H PRN IV .BREAKTHROUGH PAIN Last administered on 12/06/18 06:58; Admin Dose 1 MG; Start 12/05/18 at 21:30 Ondansetron HCl (Zofran Inj) 4 mg Q4H PRN IV NAUSEA/VOMITING; Start 12/06/18 at 21:30 Pantoprazole (Protonix Tab) 40 mg DAILY@06 PO Last administered on 01/23/19 06:20; Admin Dose 40 MG; Start 12/07/18 at 06:00 Simethicone (Mylicon) 80 mg TID PRN PO .GAS; Start 12/05/18 at 21:30 Senna/Docusate Sodium (Senokot-S) 2 tab BID PRN PO .CONSTIPATION Last administered on 12/06/18 08:54; Admin Dose 2 TAB; Start 12/05/18 at 21:30 Magnesium Hydroxide (Milk Of Mag) 30 ml HS PRN PO .CONSTIPATION; Start 12/05/18 at 21:30 Bisacodyl (Dulcolax Supp) 10 mg DAILY PRN [place] .CONSTIPATION; Start 12/05/18 at 21:30 Sodium Biphosphate/ Sodium Phosphate (Fleet Enema) 133 ml DAILY PRN [place] .CONSTIPATION; Start 12/05/18 at 21:30 Diphenhydramine HCl (Benadryl) 25 mg Q4H PRN IV .ITCHING; Start 12/05/18 at 21:30 Naloxone HCl (Narcan) 0.2 mg Q2M PRN IV .RESP RATE; Start 12/05/18 at 21:30 Bethanechol Chloride (Urecholine) 25 mg URINARY CATH D/C PRN PO UNABLE TO VOID; Start 12/05/18 at 21:30 Aspirin (Halfprin) 81 mg BID PO Last administered on 01/23/19 08:23; Admin Dose 81 MG; Start 12/06/18 at 09:00 Nystatin (Nystatin Powder) 1 applic BID TOP Last administered on 01/23/19 08:27; Admin Dose 1 APPLIC; Start 12/12/18 at 21:00 Albuterol (Proventil 0.083% (Neb)) 2.5 mg Q2H RESP THERAPY PRN HHN SHORTNESS OF BREATH; Start 12/15/18 at 12:00 Gabapentin (Neurontin) 300 mg TID PO Last administered on 01/23/19 12:31; Admin Dose 300 MG; Start 12/22/18 at 13:00 Methocarbamol (Robaxin) 750 mg TID PO Last administered on 01/23/19 12:31; Admin Dose 750 MG; Start 12/28/18 at 13:00 Linezolid (Zyvox) 600 mg BID PO Last administered on 01/23/19 08:23; Admin Dose 600 MG; Start 12/28/18 at 15:00 Acetaminophen (Tylenol Tab) 1,000 mg Q6 PRN PO pain Last administered on 01/19/19 03:29; Admin Dose 1,000 MG; Start 12/28/18 at 21:30 Alteplase, Recombinant (Cathflo (Activase)) 2 mg MAY REPEAT X1 PRN CATHETER IF CATHETER REMAINS OCCULUDED Last administered on 12/29/18 16:53; Admin Dose 2 MG; Start 12/29/18 at 16:00 Sodium Hypochlorite (Dakins Diluted (40)) 1 applic BID TP Last administered on 01/23/19 08:27; Admin Dose 1 APPLIC; Start 01/06/19 at 12:03 Cefepime HCl 50 ml @ 100 mls/hr Q12 IVPB Last administered on 01/23/19 08:26; Admin Dose 100 MLS/HR; Start 01/07/19 at 21:00 Collagenase (Santyl) 1 applic BID TOP Last administered on 01/23/19 08:26; Admin Dose 1 APPLIC; Start 01/07/19 at 21:00 Fluconazole (Diflucan) 100 mg DAILY PO Last administered on 01/23/19 08:23; Admin Dose 100 MG; Start 01/13/19 at 11:30 Lisinopril (Zestril) 2.5 mg DAILY PO Last administered on 01/23/19 08:25; Admin Dose 2.5 MG; Start 01/17/19 at 09:00 Polyethylene Glycol (Miralax) 17 gm DAILY PRN PO constipation; Start 01/18/19 at 12:30 Senna (Senokot) 1 tab BID PRN PO constipation; Start 01/18/19 at 12:30 Lidocaine (Lidoderm) 1 patch QHS TD Last administered on 01/22/19at 21:26; Admin Dose 1 PATCH; Start 01/18/19 at 21:00 Celecoxib (Celebrex) 100 mg BID PO Last administered on 01/23/19at 12:31; Admin Dose 100 MG; Start 01/23/19 at 12:00 OZZIE SOLOMON NP January 23, 2019 13:47
[2019-01-23 14:45] VITALS: BP 106/53; PULSE 86; RESP 18
--- NOTE | 2019-01-23 18:20 | PN ---
Date/Time of Note Date/Time of Note DATE: 01/23/19 TIME: 18:18 Assessment/Plan Lines/Catheters IV Catheter Type (from [facility]): PICC Line Schaeffer in Place (from Nrs): No Assessment/Plan Chief Complaint/Hosp Course 1. Sacral wound: + Wound cultures; status post repeat debridement 01/07/2019; bone pathology noted; soft bone noted during debridement> + osteo; repeat wound cultures noted> now off isolation Sacral coccyx ulcer biopsy:: fragments of bone with overlying cartilage showing bone necrosis and acute osteomyelitis. -cont antibiotics per ID -Repeat debridement as needed > can follow with Dr. Nation at wound care clinic -Continue local care w santyl -frequent turning and off-loading -low air loss mattress -vitamin c -short term zinc -optimize nutrition -dc ok from surgical standpoint 2. Bacteremia: Repeat blood culture: NG 3.Septic right knee joint status post I&D: -Per Ortho 4. Spine disease: Status post spinal surgeries -Supportive 5.UTI: -abx per sensitivity -frequent bladder emptying/cath care 6. Osteoarthritis: -Medical management Thank you. Patient seen and examined in collaboration with Dr. Fernandez Nation Subjective 24 Hr Interval Summary Feels well. No fevers, chills, sob, congested cough, cp, palpitations, ruano, dizziness, n/v/d/dysuria, excessive wound drainage/odor. Exam/Review of Systems Vital Signs Vitals Vital Signs Date Temp Pulse Resp B/P (MAP) Pulse Ox O2 O2 Flow FiO2 Time Delivery Rate 01/23/19 98.0 86 18 106/53 94 Room Air 14:45 (70) Intake and Output 01/22/19 01/22/19 01/23/19 1515:00 23:00 07:00 IntakeIntake Total 650 ml 50 ml BalanceBalance 650 ml 50 ml Exam Free Text/Dictation Constitutional: alert, oriented Psych: nl mood/affect; No anxiety Head: normocephalic, atraumatic Eyes: nl conjunctiva, EOMI, nl lids, nl sclera ENMT: nl external ears & nose, nl lips & teeth, nl nasal mucosa & septum, mucosa pink and moist Neck: supple, non-tender; No jvd Respiratory: normal air movement; No congested cough Cardiovascular: regular rate and rhythm, nl pulses; No edema Gastrointestinal: soft, non-tender; No distended Genitourinary - Female: nl external genitalia Musculoskeletal: nl extremities to inspection; No nl gait and stance Extremities: normal pulses Neurological: nl mental status, nl speech, nl strength Skin: nl turgor, other (Sacrum: Minimal Slough, min drainage, no odor, minimal periwound erythema-improved) Lymph: nl lymph nodes Results Result Diagram: 01/21/19 0502 01/22/19 0447 YESSICA ALAMO NP January 23, 2019 18:20
[2019-01-23 19:40] VITALS: BP 104/54; PULSE 76; RESP 20
[2019-01-23] MEDS: LIDOCAINE 5% PATCH TD SCH (21:00)
[2019-01-24] MEDS: oxyCODONE 5 MG TAB PO PRN (01:47)
[2019-01-24 02:20] VITALS: BP 118/62; PULSE 85; RESP 20
[2019-01-24] MEDS: LEVOTHYROXINE 100 MCG TAB PO SCH (05:33)
[2019-01-24] MEDS: PANTOPRAZOLE (EC) 40 MG TAB PO SCH (05:33)
[2019-01-24 07:36] VITALS: BP 120/66; PULSE 80; RESP 18
[2019-01-24] MEDS: CHOLECALCIFEROL 1,000 UNIT TAB PO SCH (08:43)
[2019-01-24] MEDS: ASCORBIC ACID 500 MG TAB PO SCH ×2 (08:43→20:34)
[2019-01-24] MEDS: FISH OIL 1,000 MG CAP PO SCH (08:44)
[2019-01-24] MEDS: ASPIRIN (EC) 81 MG TAB PO SCH ×2 (08:44→20:34)
[2019-01-24] MEDS: BUPROPION (XL) 150 MG TAB PO SCH (08:44)
[2019-01-24] MEDS: MULTIVITAMINS THERAPEUTIC TAB PO SCH (08:45)
[2019-01-24] MEDS: CELECOXIB 100 MG CAP PO SCH ×2 (08:45→20:34)
[2019-01-24] MEDS: LISINOPRIL 5 MG TAB PO SCH (08:45)
[2019-01-24] MEDS: FLUCONAZOLE 100 MG TAB PO SCH (08:46)
[2019-01-24] MEDS: METHOCARBAMOL 750 MG TAB PO SCH ×3 (08:46→20:34)
[2019-01-24] MEDS: GABAPENTIN 300 MG CAP PO SCH ×3 (08:46→20:34)
[2019-01-24] MEDS: VITAMIN B COMPLEX/VIT C CAP PO SCH (08:46)
[2019-01-24] MEDS: ZYVOX 600 MG TAB PO SCH ×2 (08:46→20:34)
[2019-01-24] MEDS: COLLAGENASE 5 GM (UD JAR) TOP SCH ×2 (08:46→20:35)
[2019-01-24] MEDS: NYSTATIN 30 GM POWDER BTL TOP SCH ×2 (08:47→20:41)
[2019-01-24] MEDS: DAKINS 0.0125%(1/40) 473 ML SOLUTION TP SCH ×2 (08:47→20:41)
[2019-01-24] MEDS: BALSAM PERU/CASTOR OIL 60 GM TUBE TOP SCH ×2 (08:47→20:41)
[2019-01-24] MEDS: CEFEPIME 1GM/50 ML (PMX) 50 ML IVPB SCH ×2 (08:47→20:34)
--- NOTE | 2019-01-24 12:34 | CONS ---
Assessment/Plan Assessment/Plan Hospital Course (Demo Recall) No events overnight looks comfortable Antimicrobials: Cefepime, Zyvox fluconazole Microbiology: Blood culture on admission grew strep, urine culture grew E. coli, MRSA swab negative, repeat blood cultures negative. Sacral wound cx + VRE/Proteus/Strep/Marita 2D echo revealed no vegetations Physical examination: This is well-developed well-nourished elderly woman who is alert in no distress. Head atraumatic normocephalic neck is supple. Chest rise symmetrical breath sounds clear. Heart: S1-S2. Abdomen soft, bowel tones present. Extremities wnl Assessment: 1. 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 Status post sepsis 3. S/p streptococcal bacteremia 2 to #4 4. 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 S/p urinary tract infection 6. History of left total knee replacement 7. History of multilevel discectomy and posterior fusion from L1-L3, please see CT in the chart Plan: Remains stable, continue on current abx for 6 weeks to treat OM==> last day 02/19/19, monitor CBC Consultation Date/Type/Reason Admit Date/Time Dec 01, 2018 at 19:24 Initial Consult Date Type of Consult id Requesting Provider: TERESA COSBY Date/Time of Note DATE: 01/24/19 TIME: 12:33 Exam/Review of Systems Exam Vitals Vital Signs Date Temp Pulse Resp B/P (MAP) Pulse Ox O2 O2 Flow FiO2 Time Delivery Rate 01/24/19 98.0 80 18 120/66 92 Room Air 07:36 (84) Intake and Output 01/23/19 01/23/19 01/24/19 1515:00 23:00 07:00 IntakeIntake Total 530 ml 720 ml BalanceBalance 530 ml 720 ml Results Result Diagram: 01/24/19 0813 01/22/19 0447 Results 24hrs Laboratory Tests Test 01/24/19 08:13 White Blood Count 4.6 L Red Blood Count 3.31 L Hemoglobin 8.8 L Hematocrit 28.7 L Mean Corpuscular Volume 86.7 Mean Corpuscular Hemoglobin 26.6 L Mean Corpuscular Hemoglobin Concent 30.7 L Red Cell Distribution Width 21.2 H Platelet Count 215 Mean Platelet Volume 8.9 Immature Granulocytes % 0.200 Neutrophils % 52.1 Lymphocytes % 26.2 Monocytes % 14.9 H Eosinophils % 5.5 Basophils % 1.1 Nucleated Red Blood Cells % 0.0 Immature Granulocytes # 0.010 Neutrophils # 2.4 Lymphocytes # 1.2 Monocytes # 0.7 Eosinophils # 0.3 Basophils # 0.1 Nucleated Red Blood Cells # 0.0 Medications Medication Current Medications Albuterol (Ventolin Hfa) 2 puff Q4H PRN INH WHEEZING AND SOB; Start 12/01/18 at 21:00; Status Hold Ascorbic Acid (Vitamin C) 500 mg BID PO Last administered on 01/24/19 08:43; A dmin Dose 500 MG; Start 12/01/18 at 21:00 Bupropion HCl (Wellbutrin Xl) 300 mg DAILY PO Last administered on 01/24/19 08:44; Admin Dose 300 MG; Start 12/02/18 at 09:00 Cholecalciferol (Vitamin D) 1,000 unit DAILY PO Last administered on 01/24/19 08:43; Admin Dose 1,000 UNIT; Start 12/02/18 at 09:00 Diclofenac Sodium (Voltaren 1% Gel) 2 gm TID PRN TP PAIN; Start 12/01/18 at 21:00 Levothyroxine Sodium (Synthroid) 100 mcg BEFORE BREAKFAST PO Last administered on 01/24/19 05:33; Admin Dose 100 MCG; Start 12/02/18 at 07:00 Multivitamins Therapeutic (Theragran) 1 tab DAILY PO Last administered on 01/24/19 08:45; Admin Dose 1 TAB; Start 12/02/18 at 09:00 Vitamin B Complex/ Vitamin C (Berocca) 1 cap DAILY PO Last administered on 01/24/19 08:46; Admin Dose 1 CAP; Start 12/02/18 at 09:00 Fish Oil (Fish Oil) 1,000 mg DAILY PO Last administered on 01/24/19 08:44; Admin Dose 1,000 MG; Start 12/02/18 at 09:00 Docusate Sodium (Colace) 100 mg Q12H PRN PO .CONSTIPATION; Start 12/01/18 at 22:00 Bisacodyl (Dulcolax) 5 mg DAILY PRN PO .CONSTIPATION; Start 12/01/18 at 22:00 Lidocaine (Xylocaine 1% (Mpf)) 30 ml ONCE PRN INJ aspiration ; Start 12/04/18 at 17:30 IV Flush (NS 3 ml) 3 ml PER PROTOCOL IV ; Start 12/05/18 at 21:30 Oxycodone HCl (Roxicodone) 15 mg Q4H PRN PO .PAIN Last administered on 12/30/18at 13:42; Admin Dose 5 MG; Start 12/05/18 at 21:30 Oxycodone HCl (Roxicodone) 10 mg Q4H PRN PO .PAIN Last administered on 01/16/19 02:22; Admin Dose 10 MG; Start 12/05/18 at 21:30 Oxycodone HCl (Roxicodone) 5 mg Q4H PRN PO .PAIN Last administered on 01/24/19at 01:47; Admin Dose 5 MG; Start 12/05/18 at 21:30 Hydromorphone HCl (Dilaudid) 1 mg Q3H PRN IV .BREAKTHROUGH PAIN Last ad ministered on 12/06/18at 06:58; Admin Dose 1 MG; Start 12/05/18 at 21:30 Ondansetron HCl (Zofran Inj) 4 mg Q4H PRN IV NAUSEA/VOMITING; Start 12/06/18 at 21:30 Pantoprazole (Protonix Tab) 40 mg DAILY@06 PO Last administered on 01/24/19at 05:33; Admin Dose 40 MG; Start 12/07/18 at 06:00 Simethicone (Mylicon) 80 mg TID PRN PO .GAS; Start 12/05/18 at 21:30 Senna/Docusate Sodium (Senokot-S) 2 tab BID PRN PO .CONSTIPATION Last administered on 12/06/18 08:54; Admin Dose 2 TAB; Start 12/05/18 at 21:30 Magnesium Hydroxide (Milk Of Mag) 30 ml HS PRN PO .CONSTIPATION; Start 12/05/18 at 21:30 Bisacodyl (Dulcolax Supp) 10 mg DAILY PRN [place] .CONSTIPATION; Start 12/05/18 at 21:30 Sodium Biphosphate/ Sodium Phosphate (Fleet Enema) 133 ml DAILY PRN [place] .CONSTIPATION; Start 12/05/18 at 21:30 Diphenhydramine HCl (Benadryl) 25 mg Q4H PRN IV .ITCHING; Start 12/05/18 at 21:30 Naloxone HCl (Narcan) 0.2 mg Q2M PRN IV .RESP RATE; Start 12/05/18 at 21:30 Bethanechol Chloride (Urecholine) 25 mg URINARY CATH D/C PRN PO UNABLE TO VOID; Start 12/05/18 at 21:30 Aspirin (Halfprin) 81 mg BID PO Last administered on 01/24/19 08:44; Admin Dose 81 MG; Start 12/06/18 at 09:00 Nystatin (Nystatin Powder) 1 applic BID TOP Last administered on 01/24/19 08:47; Admin Dose 1 APPLIC; Start 12/12/18 at 21:00 Albuterol (Proventil 0.083% (Neb)) 2.5 mg Q2H RESP THERAPY PRN HHN SHORTNESS OF BREATH; Start 12/15/18 at 12:00 Gabapentin (Neurontin) 300 mg TID PO Last administered on 01/24/19 08:46; Admin Dose 300 MG; Start 12/22/18 at 13:00 Methocarbamol (Robaxin) 750 mg TID PO Last administered on 01/24/19 08:46; A dmin Dose 750 MG; Start 12/28/18 at 13:00 Linezolid (Zyvox) 600 mg BID PO Last administered on 01/24/19 08:46; Admin Dose 600 MG; Start 12/28/18 at 15:00 Acetaminophen (Tylenol Tab) 1,000 mg Q6 PRN PO pain Last administered on 01/19/19 03:29; Admin Dose 1,000 MG; Start 12/28/18 at 21:30 Alteplase, Recombinant (Cathflo (Activase)) 2 mg MAY REPEAT X1 PRN CATHETER IF CATHETER REMAINS OCCULUDED Last administered on 12/29/18 16:53; Admin Dose 2 MG; Start 12/29/18 at 16:00 Sodium Hypochlorite (Dakins Diluted ()) 1 applic BID TP Last administered on 01/24/19 08:47; Admin Dose 1 APPLIC; Start 01/06/19 at 12:03 Cefepime HCl 50 ml @ 100 mls/hr Q12 IVPB Last administered on 01/24/19 08:47; Admin Dose 100 MLS/HR; Start 01/07/19 at 21:00 Collagenase (Santyl) 1 applic BID TOP Last administered on 01/24/19 08:46; Admin Dose 1 APPLIC; Start 01/07/19 at 21:00 Fluconazole (Diflucan) 100 mg DAILY PO Last administered on 01/24/19 08:46; Admin Dose 100 MG; Start 01/13/19 at 11:30 Lisinopril (Zestril) 2.5 mg DAILY PO Last administered on 01/24/19 08:45; Admin Dose 2.5 MG; Start 01/17/19 at 09:00 Polyethylene Glycol (Miralax) 17 gm DAILY PRN PO constipation; Start 01/18/19 at 12:30 Senna (Senokot) 1 tab BID PRN PO constipation; Start 01/18/19 at 12:30 Lidocaine (Lidoderm) 1 patch QHS TD Last administered on 01/22/19 21:26; Admin Dose 1 PATCH; Start 01/18/19 at 21:00 Celecoxib (Celebrex) 100 mg BID PO Last administered on 01/24/19 08:45; Admin Dose 100 MG; Start 01/23/19 at 12:00 OZZIE SOLOMON NP January 24, 2019 12:34
[2019-01-24 15:15] VITALS: BP 126/68; PULSE 78; RESP 18
--- NOTE | 2019-01-24 15:56 | PN ---
Date/Time of Note Date/Time of Note DATE: 01/24/19 TIME: 15:54 Assessment/Plan VTE Prophylaxis Risk score (from Ns)>0 risk: 6 SCD applied (from Ns): Yes Pharmacological prophylaxis: NA/contraindicated Pharm contraindication: low risk/ambulating Lines/Catheters IV Catheter Type (from Nrsg): PICC Line Central line still needed: Yes Urinary Cath still in place: No Assessment/Plan Assessment/Plan 1. Sepsis secondary to decubitus ulcers and osteomyelitis-resolved - Patient remains afebrile and WBC normal 2. Septic R knee joint s/p I&D on 12/05/18- resolved - remains stable and incision site clean and dry - Ortho consultation appreciated - pain control 3. Left leg muscle spasm- improved - Robaxin TID 4. Sacral wound with OM s/p debridement - Stable - General surgery consultation appreciated and cleared for d/c from their [facility]. Continue antibiotics and local wound care. Can follow up at wound clinic as outpatient - Bone biopsy shows OM, continue IV antibiotics until 02/19/2019 - ID recommendations appreciated 5. Chronic spinal disease - h/o significant stenosis of her spine. Lumbar spine and thoracic spine CT show signs of stenosis though no acute fractures. - continue lidocaine patch 6. osteoarthritis - pain control 7. urinary tract infection- treated 8. Strep Bacteremia-resolved 9. History of falls - Continue PT 10. Disposition - Medically stable for discharge to SNF when accepted Result Diagram: 01/24/19 0813 01/22/19 0447 Results 24hrs Laboratory Tests Test 01/24/19 08:13 White Blood Count 4.6 L Red Blood Count 3.31 L Hemoglobin 8.8 L Hematocrit 28.7 L Mean Corpuscular Volume 86.7 Mean Corpuscular Hemoglobin 26.6 L Mean Corpuscular Hemoglobin Concent 30.7 L Red Cell Distribution Width 21.2 H Platelet Count 215 Mean Platelet Volume 8.9 Immature Granulocytes % 0.200 Neutrophils % 52.1 Lymphocytes % 26.2 Monocytes % 14.9 H Eosinophils % 5.5 Basophils % 1.1 Nucleated Red Blood Cells % 0.0 Immature Granulocytes # 0.010 Neutrophils # 2.4 Lymphocytes # 1.2 Monocytes # 0.7 Eosinophils # 0.3 Basophils # 0.1 Nucleated Red Blood Cells # 0.0 Subjective 24 Hr Interval Summary Free Text/Dictation Patient denies any new issues and asking about status of her SNF placement. No acute overnight events. Exam/Review of Systems Exam Vitals Vital Signs Date Temp Pulse Resp B/P (MAP) Pulse Ox O2 O2 Flow FiO2 Time Delivery Rate 01/24/19 97.8 78 18 126/68 90 Room Air 15:15 (87) Intake and Output 01/23/19 01/23/19 01/24/19 1515:00 23:00 07:00 IntakeIntake Total 530 ml 720 ml BalanceBalance 530 ml 720 ml Exam General: Patient is ambulating to chair in no acute distress Respiratory: Clear to auscultation bilaterally. no wheezing or rhonchi Cardiovascular: S1, S2, regular rate and rhythm, no obvious murmurs Gastrointestinal: soft, nontender to palpation, nondistended, bowel sounds heard. Ext: Moves all extremities spontaneously. no lower extremity edema appreciated Skin: No new skin lesions, surgical incision healed Results Results 24hrs Laboratory Tests Test 01/24/19 08:13 White Blood Count 4.6 L Red Blood Count 3.31 L Hemoglobin 8.8 L Hematocrit 28.7 L Mean Corpuscular Volume 86.7 Mean Corpuscular Hemoglobin 26.6 L Mean Corpuscular Hemoglobin Concent 30.7 L Red Cell Distribution Width 21.2 H Platelet Count 215 Mean Platelet Volume 8.9 Immature Granulocytes % 0.200 Neutrophils % 52.1 Lymphocytes % 26.2 Monocytes % 14.9 H Eosinophils % 5.5 Basophils % 1.1 Nucleated Red Blood Cells % 0.0 Immature Granulocytes # 0.010 Neutrophils # 2.4 Lymphocytes # 1.2 Monocytes # 0.7 Eosinophils # 0.3 Basophils # 0.1 Nucleated Red Blood Cells # 0.0 Medications Medication Current Medications Albuterol (Ventolin Hfa) 2 puff Q4H PRN INH WHEEZING AND SOB; Start 12/01/18 at 21:00; Status Hold Ascorbic Acid (Vitamin C) 500 mg BID PO Last administered on 01/24/19at 08:43; Admin Dose 500 MG; Start 12/01/18 at 21:00 Bupropion HCl (Wellbutrin Xl) 300 mg DAILY PO Last administered on 01/24/19at 08:44; Admin Dose 300 MG; Start 12/02/18 at 09:00 Cholecalciferol (Vitamin D) 1,000 unit DAILY PO Last administered on 01/24/19at 08:43; Admin Dose 1,000 UNIT; Start 12/02/18 at 09:00 Diclofenac Sodium (Voltaren 1% Gel) 2 gm TID PRN TP PAIN; Start 12/01/18 at 21:00 Levothyroxine Sodium (Synthroid) 100 mcg BEFORE BREAKFAST PO Last administered on 01/24/19 05:33; Admin Dose 100 MCG; Start 12/02/18 at 07:00 Multivitamins Therapeutic (Theragran) 1 tab DAILY PO Last administered on 01/24/19 08:45; Admin Dose 1 TAB; Start 12/02/18 at 09:00 Vitamin B Complex/ Vitamin C (Berocca) 1 cap DAILY PO Last administered on 01/24/19 08:46; Admin Dose 1 CAP; Start 12/02/18 at 09:00 Fish Oil (Fish Oil) 1,000 mg DAILY PO Last administered on 01/24/19 08:44; Admin Dose 1,000 MG; Start 12/02/18 at 09:00 Docusate Sodium (Colace) 100 mg Q12H PRN PO .CONSTIPATION; Start 12/01/18 at 22:00 Bisacodyl (Dulcolax) 5 mg DAILY PRN PO .CONSTIPATION; Start 12/01/18 at 22:00 Lidocaine (Xylocaine 1% (Mpf)) 30 ml ONCE PRN INJ aspiration ; Start 12/04/18 at 17:30 IV Flush (NS 3 ml) 3 ml PER PROTOCOL IV ; Start 12/05/18 at 21:30 Oxycodone HCl (Roxicodone) 15 mg Q4H PRN PO .PAIN Last administered on 12/30/18at 13:42; Admin Dose 5 MG; Start 12/05/18 at 21:30 Oxycodone HCl (Roxicodone) 10 mg Q4H PRN PO .PAIN Last administered on 01/16/19 02:22; Admin Dose 10 MG; Start 12/05/18 at 21:30 Oxycodone HCl (Roxicodone) 5 mg Q4H PRN PO .PAIN Last administered on 01/24/19 01:47; Admin Dose 5 MG; Start 12/05/18 at 21:30 Hydromorphone HCl (Dilaudid) 1 mg Q3H PRN IV .BREAKTHROUGH PAIN Last administered on 12/06/18 06:58; Admin Dose 1 MG; Start 12/05/18 at 21:30 Ondansetron HCl (Zofran Inj) 4 mg Q4H PRN IV NAUSEA/VOMITING; Start 12/06/18 at 21:30 Pantoprazole (Protonix Tab) 40 mg DAILY@06 PO Last administered on 01/24/19 05:33; Admin Dose 40 MG; Start 12/07/18 at 06:00 Simethicone (Mylicon) 80 mg TID PRN PO .GAS; Start 12/05/18 at 21:30 Senna/Docusate Sodium (Senokot-S) 2 tab BID PRN PO .CONSTIPATION Last administered on 12/06/18 08:54; Admin Dose 2 TAB; Start 12/05/18 at 21:30 Magnesium Hydroxide (Milk Of Mag) 30 ml HS PRN PO .CONSTIPATION; Start 12/05/18 at 21:30 Bisacodyl (Dulcolax Supp) 10 mg DAILY PRN [place] .CONSTIPATION; Start 12/05/18 at 21:30 Sodium Biphosphate/ Sodium Phosphate (Fleet Enema) 133 ml DAILY PRN [place] .CONSTIPATION; Start 12/05/18 at 21:30 Diphenhydramine HCl (Benadryl) 25 mg Q4H PRN IV .ITCHING; Start 12/05/18 at 21:30 Naloxone HCl (Narcan) 0.2 mg Q2M PRN IV .RESP RATE; Start 12/05/18 at 21:30 Bethanechol Chloride (Urecholine) 25 mg URINARY CATH D/C PRN PO UNABLE TO VOID; Start 12/05/18 at 21:30 Aspirin (Halfprin) 81 mg BID PO Last administered on 01/24/19 08:44; Admin Dose 81 MG; Start 12/06/18 at 09:00 Nystatin (Nystatin Powder) 1 applic BID TOP Last administered on 01/24/19 08:47; Admin Dose 1 APPLIC; Start 12/12/18 at 21:00 Albuterol (Proventil 0.083% (Neb)) 2.5 mg Q2H RESP THERAPY PRN HHN SHORTNESS OF BREATH; Start 12/15/18 at 12:00 Gabapentin (Neurontin) 300 mg TID PO Last administered on 01/24/19 12:50; Admin Dose 300 MG; Start 12/22/18 at 13:00 Methocarbamol (Robaxin) 750 mg TID PO Last administered on 01/24/19 12:50; Admin Dose 750 MG; Start 12/28/18 at 13:00 Linezolid (Zyvox) 600 mg BID PO Last administered on 01/24/19 08:46; Admin Dose 600 MG; Start 12/28/18 at 15:00 Acetaminophen (Tylenol Tab) 1,000 mg Q6 PRN PO pain Last administered on 01/19/19 03:29; Admin Dose 1,000 MG; Start 12/28/18 at 21:30 Alteplase, Recombinant (Cathflo (Activase)) 2 mg MAY REPEAT X1 PRN CATHETER IF CATHETER REMAINS OCCULUDED Last administered on 12/29/18 16:53; Admin Dose 2 MG; Start 12/29/18 at 16:00 Sodium Hypochlorite (Dakins Diluted (40)) 1 applic BID TP Last administered on 01/24/19 08:47; Admin Dose 1 APPLIC; Start 01/06/19 at 12:03 Cefepime HCl 50 ml @ 100 mls/hr Q12 IVPB Last administered on 01/24/19 08:47; Admin Dose 100 MLS/HR; Start 01/07/19 at 21:00 Collagenase (Santyl) 1 applic BID TOP Last administered on 01/24/19 08:46; Admin Dose 1 APPLIC; Start 01/07/19 at 21:00 Fluconazole (Diflucan) 100 mg DAILY PO Last administered on 01/24/19 08:46; Admin Dose 100 MG; Start 01/13/19 at 11:30 Lisinopril (Zestril) 2.5 mg DAILY PO Last administered on 01/24/19 08:45; Admi n Dose 2.5 MG; Start 01/17/19 at 09:00 Polyethylene Glycol (Miralax) 17 gm DAILY PRN PO constipation; Start 01/18/19 at 12:30 Senna (Senokot) 1 tab BID PRN PO constipation; Start 01/18/19 at 12:30 Lidocaine (Lidoderm) 1 patch QHS TD Last administered on 01/22/19 21:26; Admin Dose 1 PATCH; Start 01/18/19 at 21:00 Celecoxib (Celebrex) 100 mg BID PO Last administered on 01/24/19at 08:45; Admin Dose 100 MG; Start 01/23/19 at 12:00 BALTAZAR BARAJAS MD January 24, 2019 15:56
--- NOTE | 2019-01-24 16:26 | PN ---
Date/Time of Note Date/Time of Note DATE: 01/24/19 TIME: 16:24 Assessment/Plan Lines/Catheters IV Catheter Type (from [facility]): PICC Line Schaeffer in Place (from [facility]): No Assessment/Plan Chief Complaint/Hosp Course 1. Sacral wound: + Wound cultures; status post repeat debridement 01/07/2019; bone pathology noted; soft bone noted during debridement> + osteo; repeat wound cultures noted> now off isolation. s/p abx per ID -Repeat debridement as needed > can follow with Dr. Mcmanus at wound care clinic -Continue local care w santyl -frequent turning and off-loading -low air loss mattress -vitamin c -short term zinc -optimize nutrition -dc ok from surgical standpoint 2. Bacteremia: Repeat blood culture: NG 3.Septic right knee joint status post I&D: -Per Ortho 4. Spine disease: Status post spinal surgeries -Supportive 5.UTI: -abx per sensitivity -frequent bladder emptying/cath care 6. Osteoarthritis: -Medical management Thank you Subjective 24 Hr Interval Summary No fevers, chills, sob, congested cough, cp, palpitations, ruano, dizziness, n/v/d/dysuria, excessive wound drainage/odor. Exam/Review of Systems Vital Signs Vitals Vital Signs Date Temp Pulse Resp B/P (MAP) Pulse Ox O2 O2 Flow FiO2 Time Delivery Rate 01/24/19 97.8 78 18 126/68 90 Room Air 15:15 (87) Intake and Output 01/23/19 01/23/19 01/24/19 1515:00 23:00 07:00 IntakeIntake Total 530 ml 720 ml BalanceBalance 530 ml 720 ml Exam Free Text/Dictation Constitutional: alert, oriented Psych: nl mood/affect; No anxiety Head: normocephalic, atraumatic Eyes: nl conjunctiva, EOMI, nl lids, nl sclera ENMT: nl external ears & nose, nl lips & teeth, nl nasal mucosa & septum, mucosa pink and moist Neck: supple, non-tender; No jvd Respiratory: normal air movement; No congested cough Cardiovascular: regular rate and rhythm, nl pulses; No edema Gastrointestinal: soft, non-tender; No distended Genitourinary - Female: nl external genitalia Musculoskeletal: nl extremities to inspection; No nl gait and stance Extremities: normal pulses Neurological: nl mental status, nl speech, nl strength Skin: nl turgor, other (Sacrum: Minimal Slough, min drainage, no odor, minimal periwound erythema-improved) Lymph: nl lymph nodes Results Result Diagram: 01/24/19 0813 01/22/19 0447 GARBIELA MCMANUS MD January 24, 2019 16:26
[2019-01-24 19:20] VITALS: BP 99/56; PULSE 83; RESP 20
[2019-01-24] MEDS: LIDOCAINE 5% PATCH TD SCH (20:35)
[2019-01-25 02:10] VITALS: BP 122/58; PULSE 79; RESP 20
[2019-01-25] MEDS: PANTOPRAZOLE (EC) 40 MG TAB PO SCH (06:14)
[2019-01-25] MEDS: LEVOTHYROXINE 100 MCG TAB PO SCH (06:14)
[2019-01-25 07:48] VITALS: BP 132/66; PULSE 70; RESP 15
[2019-01-25] MEDS: VITAMIN B COMPLEX/VIT C CAP PO SCH (08:46)
[2019-01-25] MEDS: BALSAM PERU/CASTOR OIL 60 GM TUBE TOP SCH ×2 (08:46→20:45)
[2019-01-25] MEDS: COLLAGENASE 5 GM (UD JAR) TOP SCH ×2 (08:46→20:44)
[2019-01-25] MEDS: CEFEPIME 1GM/50 ML (PMX) 50 ML IVPB SCH ×2 (08:46→20:44)
[2019-01-25] MEDS: CHOLECALCIFEROL 1,000 UNIT TAB PO SCH (08:46)
[2019-01-25] MEDS: FISH OIL 1,000 MG CAP PO SCH (08:46)
[2019-01-25] MEDS: GABAPENTIN 300 MG CAP PO SCH ×3 (08:46→20:44)
[2019-01-25] MEDS: ASPIRIN (EC) 81 MG TAB PO SCH ×2 (08:47→20:44)
[2019-01-25] MEDS: BUPROPION (XL) 150 MG TAB PO SCH (08:47)
[2019-01-25] MEDS: CELECOXIB 100 MG CAP PO SCH ×2 (08:47→20:44)
[2019-01-25] MEDS: MULTIVITAMINS THERAPEUTIC TAB PO SCH (08:47)
[2019-01-25] MEDS: FLUCONAZOLE 100 MG TAB PO SCH (08:47)
[2019-01-25] MEDS: ZYVOX 600 MG TAB PO SCH ×2 (08:47→20:44)
[2019-01-25] MEDS: METHOCARBAMOL 750 MG TAB PO SCH ×3 (08:47→20:44)
[2019-01-25] MEDS: LISINOPRIL 5 MG TAB PO SCH (08:48)
[2019-01-25] MEDS: DAKINS 0.0125%(1/40) 473 ML SOLUTION TP SCH ×2 (08:49→20:45)
[2019-01-25] MEDS: NYSTATIN 30 GM POWDER BTL TOP SCH ×2 (08:49→20:45)
[2019-01-25] MEDS: ASCORBIC ACID 500 MG TAB PO SCH ×2 (08:52→20:44)
--- NOTE | 2019-01-25 13:00 | CONS ---
Consultation Date/Type/Reason Admit Date/Time Dec 01, 2018 at 19:24 Initial Consult Date SUBJECTIVE: Pt is awake, alert, afebrile. No acute events over night VS: stable T: 98.2 LABS: reviewed. Antimicrobials:Cefepime, Zyvox and fluconazole Microbiology: Blood culture on admission grew strep, urine culture grew E. coli, MRSA swab negative, repeat blood cultures negative. Sacral wound cx + VRE/Proteus/Strep/Marita 2D echo revealed no vegetations Physical examination: GEN: This is well-developed well-nourished elderly woman, who is alert in no distress. HENT: Head atraumatic normocephalic, neck is supple. PULM: Chest rise symmetrical breath sounds clear. Heart: S1-S2. Abdomen: soft, bowel tones present. Extremities with right knee erythema and swelling Assessment: 1. 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 Status post sepsis, present on admission 3. Streptococcal bacteremia 2 to #3 4. 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 S/P Urinary tract infection 6. History of left total knee replacement 7. History of multilevel discectomy and posterior fusion from L1-L3, please see CT in the chart Plan: Patient remains stable. Continue on current abx for 6 weeks to treat OM (last day 02/19/19) . D/C pending. Requesting Provider: TERESA COSBY Date/Time of Note DATE: 01/25/19 TIME: 12:57 Exam/Review of Systems Exam Vitals Vital Signs Date Temp Pulse Resp B/P (MAP) Pulse Ox O2 O2 Flow FiO2 Time Delivery Rate 01/25/19 98.2 70 15 132/66 100 Room Air 07:48 (88) Intake and Output 01/24/19 01/24/19 01/25/19 1515:00 23:00 07:00 IntakeIntake Total 370 ml 490 ml BalanceBalance 370 ml 490 ml Results Result Diagram: 01/24/19 0813 01/22/19 0447 Medications Medication Current Medications Albuterol (Ventolin Hfa) 2 puff Q4H PRN INH WHEEZING AND SOB; Start 12/01/18 at 21:00; Status Hold Ascorbic Acid (Vitamin C) 500 mg BID PO Last administered on 01/25/19 08:52; Admin Dose 500 MG; Start 12/01/18 at 21:00 Bupropion HCl (Wellbutrin Xl) 300 mg DAILY PO Last administered on 01/25/19 08:47; Admin Dose 300 MG; Start 12/02/18 at 09:00 Cholecalciferol (Vitamin D) 1,000 unit DAILY PO Last administered on 01/25/19 08:46; Admin Dose 1,000 UNIT; Start 12/02/18 at 09:00 Diclofenac Sodium (Voltaren 1% Gel) 2 gm TID PRN TP PAIN; Start 12/01/18 at 21:00 Levothyroxine Sodium (Synthroid) 100 mcg BEFORE BREAKFAST PO Last administered on 01/25/19 06:14; Admin Dose 100 MCG; Start 12/02/18 at 07:00 Multivitamins Therapeutic (Theragran) 1 tab DAILY PO Last administered on 01/25/19 08:47; Admin Dose 1 TAB; Start 12/02/18 at 09:00 Vitamin B Complex/ Vitamin C (Berocca) 1 cap DAILY PO Last administered on 01/25/19 08:46; Admin Dose 1 CAP; Start 12/02/18 at 09:00 Fish Oil (Fish Oil) 1,000 mg DAILY PO Last administered on 01/25/19 08:46; Admin Dose 1,000 MG; Start 12/02/18 at 09:00 Docusate Sodium (Colace) 100 mg Q12H PRN PO .CONSTIPATION; Start 12/01/18 at 22:00 Bisacodyl (Dulcolax) 5 mg DAILY PRN PO .CONSTIPATION; Start 12/01/18 at 22:00 Lidocaine (Xylocaine 1% (Mpf)) 30 ml ONCE PRN INJ aspiration ; Start 12/04/18 at 17:30 IV Flush (NS 3 ml) 3 ml PER PROTOCOL IV ; Start 12/05/18 at 21:30 Oxycodone HCl (Roxicodone) 15 mg Q4H PRN PO .PAIN Last administered on 12/30/18 13:42; Admin Dose 5 MG; Start 12/05/18 at 21:30 Oxycodone HCl (Roxicodone) 10 mg Q4H PRN PO .PAIN Last administered on 01/16/19 02:22; Admin Dose 10 MG; Start 12/05/18 at 21:30 Oxycodone HCl (Roxicodone) 5 mg Q4H PRN PO .PAIN Last administered on 01/24/19 01:47; Admin Dose 5 MG; Start 12/05/18 at 21:30 Hydromorphone HCl (Dilaudid) 1 mg Q3H PRN IV .BREAKTHROUGH PAIN Last administered on 12/06/18 06:58; Admin Dose 1 MG; Start 12/05/18 at 21:30 Ondansetron HCl (Zofran Inj) 4 mg Q4H PRN IV NAUSEA/VOMITING; Start 12/06/18 at 21:30 Pantoprazole (Protonix Tab) 40 mg DAILY@06 PO Last administered on 01/25/19 06:14; Admin Dose 40 MG; Start 12/07/18 at 06:00 Simethicone (Mylicon) 80 mg TID PRN PO .GAS; Start 12/05/18 at 21:30 Senna/Docusate Sodium (Senokot-S) 2 tab BID PRN PO .CONSTIPATION Last administered on 12/06/18 08:54; Admin Dose 2 TAB; Start 12/05/18 at 21:30 Magnesium Hydroxide (Milk Of Mag) 30 ml HS PRN PO .CONSTIPATION; Start 12/05/18 at 21:30 Bisacodyl (Dulcolax Supp) 10 mg DAILY PRN [place] .CONSTIPATION; Start 12/05/18 at 21:30 Sodium Biphosphate/ Sodium Phosphate (Fleet Enema) 133 ml DAILY PRN [place] .CONSTIPATION; Start 12/05/18 at 21:30 Diphenhydramine HCl (Benadryl) 25 mg Q4H PRN IV .ITCHING; Start 12/05/18 at 21:30 Naloxone HCl (Narcan) 0.2 mg Q2M PRN IV .RESP RATE; Start 12/05/18 at 21:30 Bethanechol Chloride (Urecholine) 25 mg URINARY CATH D/C PRN PO UNABLE TO VOID; Start 12/05/18 at 21:30 Aspirin (Halfprin) 81 mg BID PO Last administered on 01/25/19 08:47; Admin Dose 81 MG; Start 12/06/18 at 09:00 Nystatin (Nystatin Powder) 1 applic BID TOP Last administered on 01/25/19 08:49; Admin Dose 1 APPLIC; Start 12/12/18 at 21:00 Albuterol (Proventil 0.083% (Neb)) 2.5 mg Q2H RESP THERAPY PRN HHN SHORTNESS OF BREATH; Start 12/15/18 at 12:00 Gabapentin (Neurontin) 300 mg TID PO Last administered on 01/25/19 08:46; Admin Dose 300 MG; Start 12/22/18 at 13:00 Methocarbamol (Robaxin) 750 mg TID PO Last administered on 01/25/19 08:47; Admin Dose 750 MG; Start 12/28/18 at 13:00 Linezolid (Zyvox) 600 mg BID PO Last administered on 01/25/19 08:47; Admin Dose 600 MG; Start 12/28/18 at 15:00 Acetaminophen (Tylenol Tab) 1,000 mg Q6 PRN PO pain Last administered on 01/19/19 03:29; Admin Dose 1,000 MG; Start 12/28/18 at 21:30 Alteplase, Recombinant (Cathflo (Activase)) 2 mg MAY REPEAT X1 PRN CATHETER IF CATHETER REMAINS OCCULUDED Last administered on 12/29/18 16:53; Admin Dose 2 MG; Start 12/29/18 at 16:00 Sodium Hypochlorite (Dakins Diluted ()) 1 applic BID TP Last administered on 01/25/19 08:49; Admin Dose 1 APPLIC; Start 01/06/19 at 12:03 Cefepime HCl 50 ml @ 100 mls/hr Q12 IVPB Last administered on 01/25/19 08:46; Admin Dose 100 MLS/HR; Start 01/07/19 at 21:00 Collagenase (Santyl) 1 applic BID TOP Last administered on 01/25/19 08:46; Admin Dose 1 APPLIC; Start 01/07/19 at 21:00 Fluconazole (Diflucan) 100 mg DAILY PO Last administered on 01/25/19 08:47; Admin Dose 100 MG; Start 01/13/19 at 11:30 Lisinopril (Zestril) 2.5 mg DAILY PO Last administered on 01/25/19 08:48; Admin Dose 2.5 MG; Start 01/17/19 at 09:00 Polyethylene Glycol (Miralax) 17 gm DAILY PRN PO constipation; Start 01/18/19 at 12:30 Senna (Senokot) 1 tab BID PRN PO constipation; Start 01/18/19 at 12:30 Lidocaine (Lidoderm) 1 patch QHS TD Last administered on 01/22/19at 21:26; Admin Dose 1 PATCH; Start 01/18/19 at 21:00 Celecoxib (Celebrex) 100 mg BID PO Last administered on 01/25/19at 08:47; Admin Dose 100 MG; Start 01/23/19 at 12:00 ARNULFO RENDON January 25, 2019 13:00
--- NOTE | 2019-01-25 13:35 | PN ---
Date/Time of Note Date/Time of Note DATE: 01/25/19 TIME: 13:30 Assessment/Plan VTE Prophylaxis Risk score (from Nsg)>0 risk: 6 SCD applied (from Nsg): Yes Pharmacological prophylaxis: other Lines/Catheters IV Catheter Type (from Nrsg): PICC Line Central line still needed: Yes Urinary Cath still in place: No Assessment/Plan Assessment/Plan 1. Sepsis secondary to decubitus ulcers and osteomyelitis-resolved - Patient remains afebrile and WBC normal 2. Septic R knee joint s/p I&D on 12/05/18- resolved - remains stable and incision site clean and dry - Ortho consultation appreciated - pain control 3. Left leg muscle spasm- improved - Robaxin TID 4. Sacral wound with OM s/p debridement - General surgery consultation appreciated and cleared for d/c from their standpoint. Continue antibiotics and local wound care. Can follow up at wound clinic as outpatient - Bone biopsy shows OM, continue IV antibiotics until 02/19/2019 - ID recommendations appreciated 5. Chronic spinal disease - h/o significant stenosis of her spine. Lumbar spine and thoracic spine CT show signs of stenosis though no acute fractures. - continue lidocaine patch 6. osteoarthritis - pain control 7. urinary tract infection- treated 8. Strep Bacteremia-resolved 9. History of falls - Continue PT 10. Disposition - CM on board for assistance with placement. Medically stable for discharge once accepted. Result Diagram: 01/24/19 0813 01/22/19 0447 Subjective 24 Hr Interval Summary Free Text/Dictation Patient is getting very frustrated and states she does not want anymore antibiotics and wants to go home. Discussed need to continue. Discussion held with son about mothers frustration. Exam/Review of Systems Exam Vitals Vital Signs Date Temp Pulse Resp B/P (MAP) Pulse Ox O2 O2 Flow FiO2 Time Delivery Rate 01/25/19 98.2 70 15 132/66 100 Room Air 07:48 (88) Intake and Output 01/24/19 01/24/19 01/25/19 1515:00 23:00 07:00 IntakeIntake Total 370 ml 490 ml BalanceBalance 370 ml 490 ml Exam General: Patient is ambulating to chair in no acute distress. upset and frustrated Respiratory: Clear to auscultation bilaterally. no wheezing or rhonchi Cardiovascular: S1, S2, regular rate and rhythm, no obvious murmurs Gastrointestinal: soft, nontender to palpation, nondistended, bowel sounds heard. Ext: Moves all extremities spontaneously. no lower extremity edema appreciated Skin: No new skin lesions, surgical incision healed Medications Medication Current Medications Albuterol (Ventolin Hfa) 2 puff Q4H PRN INH WHEEZING AND SOB; Start 12/01/18 at 21:00; Status Hold Ascorbic Acid (Vitamin C) 500 mg BID PO Last administered on 01/25/19 08:52; Admin Dose 500 MG; Start 12/01/18 at 21:00 Bupropion HCl (Wellbutrin Xl) 300 mg DAILY PO Last administered on 01/25/19 08:47; Admin Dose 300 MG; Start 12/02/18 at 09:00 Cholecalciferol (Vitamin D) 1,000 unit DAILY PO Last administered on 01/25/19 08:46; Admin Dose 1,000 UNIT; Start 12/02/18 at 09:00 Diclofenac Sodium (Voltaren 1% Gel) 2 gm TID PRN TP PAIN; Start 12/01/18 at 21:00 Levothyroxine Sodium (Synthroid) 100 mcg BEFORE BREAKFAST PO Last administered on 01/25/19 06:14; Admin Dose 100 MCG; Start 12/02/18 at 07:00 Multivitamins Therapeutic (Theragran) 1 tab DAILY PO Last administered on 01/25/19 08:47; Admin Dose 1 TAB; Start 12/02/18 at 09:00 Vitamin B Complex/ Vitamin C (Berocca) 1 cap DAILY PO Last administered on 01/25/19 08:46; Admin Dose 1 CAP; Start 12/02/18 at 09:00 Fish Oil (Fish Oil) 1,000 mg DAILY PO Last administered on 01/25/19 08:46; Admin Dose 1,000 MG; Start 12/02/18 at 09:00 Docusate Sodium (Colace) 100 mg Q12H PRN PO .CONSTIPATION; Start 12/01/18 at 22:00 Bisacodyl (Dulcolax) 5 mg DAILY PRN PO .CONSTIPATION; Start 12/01/18 at 22:00 Lidocaine (Xylocaine 1% (Mpf)) 30 ml ONCE PRN INJ aspiration ; Start 12/04/18 at 17:30 IV Flush (NS 3 ml) 3 ml PER PROTOCOL IV ; Start 12/05/18 at 21:30 Oxycodone HCl (Roxicodone) 15 mg Q4H PRN PO .PAIN Last administered on 12/30/18 13:42; Admin Dose 5 MG; Start 12/05/18 at 21:30 Oxycodone HCl (Roxicodone) 10 mg Q4H PRN PO .PAIN Last administered on 01/16/19 02:22; Admin Dose 10 MG; Start 12/05/18 at 21:30 Oxycodone HCl (Roxicodone) 5 mg Q4H PRN PO .PAIN Last administered on 01/24/19 01:47; Admin Dose 5 MG; Start 12/05/18 at 21:30 Hydromorphone HCl (Dilaudid) 1 mg Q3H PRN IV .BREAKTHROUGH PAIN Last administered on 12/06/18 06:58; Admin Dose 1 MG; Start 12/05/18 at 21:30 Ondansetron HCl (Zofran Inj) 4 mg Q4H PRN IV NAUSEA/VOMITING; Start 12/06/18 at 21:30 Pantoprazole (Protonix Tab) 40 mg DAILY@06 PO Last administered on 01/25/19 06:14; Admin Dose 40 MG; Start 12/07/18 at 06:00 Simethicone (Mylicon) 80 mg TID PRN PO .GAS; Start 12/05/18 at 21:30 Senna/Docusate Sodium (Senokot-S) 2 tab BID PRN PO .CONSTIPATION Last administered on 12/06/18 08:54; Admin Dose 2 TAB; Start 12/05/18 at 21:30 Magnesium Hydroxide (Milk Of Mag) 30 ml HS PRN PO .CONSTIPATION; Start 12/05/18 at 21:30 Bisacodyl (Dulcolax Supp) 10 mg DAILY PRN [place] .CONSTIPATION; Start 12/05/18 at 21:30 Sodium Biphosphate/ Sodium Phosphate (Fleet Enema) 133 ml DAILY PRN [place] .CONSTIPATION; Start 12/05/18 at 21:30 Diphenhydramine HCl (Benadryl) 25 mg Q4H PRN IV .ITCHING; Start 12/05/18 at 21:30 Naloxone HCl (Narcan) 0.2 mg Q2M PRN IV .RESP RATE; Start 12/05/18 at 21:30 Bethanechol Chloride (Urecholine) 25 mg URINARY CATH D/C PRN PO UNABLE TO VOID; Start 12/05/18 at 21:30 Aspirin (Halfprin) 81 mg BID PO Last administered on 01/25/19 08:47; Admin Dose 81 MG; Start 12/06/18 at 09:00 Nystatin (Nystatin Powder) 1 applic BID TOP Last administered on 01/25/19 08:49; Admin Dose 1 APPLIC; Start 12/12/18 at 21:00 Albuterol (Proventil 0.083% (Neb)) 2.5 mg Q2H RESP THERAPY PRN HHN SHORTNESS OF BREATH; Start 12/15/18 at 12:00 Gabapentin (Neurontin) 300 mg TID PO Last administered on 01/25/19 13:21; Admin Dose 300 MG; Start 12/22/18 at 13:00 Methocarbamol (Robaxin) 750 mg TID PO Last administered on 01/25/19 13:21; Admin Dose 750 MG; Start 12/28/18 at 13:00 Linezolid (Zyvox) 600 mg BID PO Last administered on 01/25/19 08:47; Admin Dose 600 MG; Start 12/28/18 at 15:00 Acetaminophen (Tylenol Tab) 1,000 mg Q6 PRN PO pain Last administered on 01/19/19 03:29; Admin Dose 1,000 MG; Start 12/28/18 at 21:30 Alteplase, Recombinant (Cathflo (Activase)) 2 mg MAY REPEAT X1 PRN CATHETER IF CATHETER REMAINS OCCULUDED Last administered on 12/29/18 16:53; Admin Dose 2 MG; Start 12/29/18 at 16:00 Sodium Hypochlorite (Dakins Diluted ()) 1 applic BID TP Last administered on 01/25/19 08:49; Admin Dose 1 APPLIC; Start 01/06/19 at 12:03 Cefepime HCl 50 ml @ 100 mls/hr Q12 IVPB Last administered on 01/25/19 08:46; Admin Dose 100 MLS/HR; Start 01/07/19 at 21:00 Collagenase (Santyl) 1 applic BID TOP Last administered on 5/18/19at 08:46; Admin Dose 1 APPLIC; Start 01/07/19 at 21:00 Fluconazole (Diflucan) 100 mg DAILY PO Last administered on 01/25/19 08:47; Admin Dose 100 MG; Start 01/13/19 at 11:30 Lisinopril (Zestril) 2.5 mg DAILY PO Last administered on 01/25/19 08:48; Admin Dose 2.5 MG; Start 01/17/19 at 09:00 Polyethylene Glycol (Miralax) 17 gm DAILY PRN PO constipation; Start 01/18/19 at 12:30 Senna (Senokot) 1 tab BID PRN PO constipation; Start 01/18/19 at 12:30 Lidocaine (Lidoderm) 1 patch QHS TD Last administered on 01/22/19at 21:26; Admin Dose 1 PATCH; Start 01/18/19 at 21:00 Celecoxib (Celebrex) 100 mg BID PO Last administered on 01/25/19 08:47; Admin Dose 100 MG; Start 01/23/19 at 12:00 BALTAZAR BARAJAS MD January 25, 2019 13:35
[2019-01-25 14:39] VITALS: BP 114/54; PULSE 91; RESP 16
--- NOTE | 2019-01-25 15:18 | PN ---
Date/Time of Note Date/Time of Note DATE: 01/25/19 TIME: 15:17 Assessment/Plan Lines/Catheters IV Catheter Type (from Nrs): PICC Line Schaeffer in Place (from Nrs): No Assessment/Plan Chief Complaint/Hosp Course 1. Sacral wound: + Wound cultures; status post repeat debridement 01/07/2019; bone pathology noted; soft bone noted during debridement> + osteo; repeat wound cultures noted> now off isolation. s/p abx per ID -Repeat debridement as needed > can follow with Dr. Nation at wound care clinic -Continue local care w santyl -frequent turning and off-loading -low air loss mattress -vitamin c -short term zinc -optimize nutrition -dc ok from surgical standpoint> pending SNF placement 2. Bacteremia: Repeat blood culture: NG 3.Septic right knee joint status post I&D: -Per Ortho 4. Spine disease: Status post spinal surgeries -Supportive 5.UTI: -abx per sensitivity -frequent bladder emptying/cath care 6. Osteoarthritis: -Medical management Thank you. Patient seen and examined in collaboration with Dr. Fernandez Nation Subjective 24 Hr Interval Summary Feels well. No fevers, chills, sob, congested cough, cp, palpitations, ruano, dizziness, nausea, vomiting, diarrhea, dysuria, wound drainage or odor. Exam/Review of Systems Vital Signs Vitals Vital Signs Date Temp Pulse Resp B/P (MAP) Pulse Ox O2 O2 Flow FiO2 Time Delivery Rate 01/25/19 98.9 91 16 114/54 100 Room Air 14:39 (74) Intake and Output 01/24/19 01/24/19 01/25/19 1515:00 23:00 07:00 IntakeIntake Total 370 ml 490 ml BalanceBalance 370 ml 490 ml Exam Free Text/Dictation Constitutional: alert, oriented Psych: nl mood/affect; No anxiety Head: normocephalic, atraumatic Eyes: nl conjunctiva, EOMI, nl lids, nl sclera ENMT: nl external ears & nose, nl lips & teeth, nl nasal mucosa & septum, mucosa pink and moist Neck: supple, non-tender; No jvd Respiratory: normal air movement; No congested cough Cardiovascular: regular rate and rhythm, nl pulses; No edema Gastrointestinal: soft, non-tender; No distended Genitourinary - Female: nl external genitalia Musculoskeletal: nl extremities to inspection; No nl gait and stance Extremities: normal pulses Neurological: nl mental status, nl speech, nl strength Skin: nl turgor, other (Sacrum: Minimal Slough, min drainage, no odor, minimal periwound erythema-much improved) Lymph: nl lymph nodes Results Result Diagram: 01/24/19 0813 01/22/19 0447 YESSICA ALAMO NP January 25, 2019 15:18
[2019-01-25 19:42] VITALS: BP 91/54; PULSE 85; RESP 18
[2019-01-25] MEDS: LIDOCAINE 5% PATCH TD SCH (20:46)
[2019-01-26 00:04] VITALS: BP 119/59; RESP 19
[2019-01-26] MEDS: ACETAMINOPHEN 500 MG TAB PO PRN (03:20)
[2019-01-26] MEDS: PANTOPRAZOLE (EC) 40 MG TAB PO SCH (05:58)
[2019-01-26] MEDS: LEVOTHYROXINE 100 MCG TAB PO SCH (05:58)
[2019-01-26 07:44] VITALS: BP 124/72; PULSE 73; RESP 15
[2019-01-26] MEDS: ASCORBIC ACID 500 MG TAB PO SCH ×2 (09:55→21:22)
[2019-01-26] MEDS: VITAMIN B COMPLEX/VIT C CAP PO SCH (09:56)
[2019-01-26] MEDS: MULTIVITAMINS THERAPEUTIC TAB PO SCH (09:56)
[2019-01-26] MEDS: CEFEPIME 1GM/50 ML (PMX) 50 ML IVPB SCH ×2 (09:56→21:21)
[2019-01-26] MEDS: CHOLECALCIFEROL 1,000 UNIT TAB PO SCH (09:56)
[2019-01-26] MEDS: FLUCONAZOLE 100 MG TAB PO SCH (09:56)
[2019-01-26] MEDS: GABAPENTIN 300 MG CAP PO SCH ×3 (09:56→21:22)
[2019-01-26] MEDS: FISH OIL 1,000 MG CAP PO SCH (09:56)
[2019-01-26] MEDS: METHOCARBAMOL 750 MG TAB PO SCH ×3 (09:56→21:21)
[2019-01-26] MEDS: ASPIRIN (EC) 81 MG TAB PO SCH ×2 (09:56→21:22)
[2019-01-26] MEDS: CELECOXIB 100 MG CAP PO SCH ×2 (09:56→21:22)
[2019-01-26] MEDS: BUPROPION (XL) 150 MG TAB PO SCH (09:56)
[2019-01-26] MEDS: ZYVOX 600 MG TAB PO SCH ×2 (09:56→21:22)
[2019-01-26] MEDS: DAKINS 0.0125%(1/40) 473 ML SOLUTION TP SCH ×2 (09:57→21:27)
[2019-01-26] MEDS: BALSAM PERU/CASTOR OIL 60 GM TUBE TOP SCH ×2 (09:57→21:27)
[2019-01-26] MEDS: NYSTATIN 30 GM POWDER BTL TOP SCH ×2 (09:57→21:00)
[2019-01-26] MEDS: COLLAGENASE 5 GM (UD JAR) TOP SCH ×2 (09:57→21:28)
[2019-01-26] MEDS: LISINOPRIL 5 MG TAB PO SCH (10:01)
--- NOTE | 2019-01-26 11:34 | PN ---
Date/Time of Note Date/Time of Note DATE: 01/26/19 TIME: 11:32 Assessment/Plan VTE Prophylaxis Risk score (from Nsg)>0 risk: 3 SCD applied (from Ns): No SCD contraindicated: low risk/ambulating Pharmacological prophylaxis: other Lines/Catheters IV Catheter Type (from Nrsg): PICC Line Central line still needed: Yes Urinary Cath still in place: No Assessment/Plan Assessment/Plan 1. Sepsis secondary to decubitus ulcers and osteomyelitis-resolved - Patient remains afebrile and WBC normal 2. Septic R knee joint s/p I&D on 12/05/18- resolved - remains stable and incision site clean and dry - Ortho consultation appreciated - pain control 3. Left leg muscle spasm- improved - Robaxin TID 4. Sacral wound with OM s/p debridement - General surgery consultation appreciated and cleared for d/c from their standpoint. Continue antibiotics and local wound care. Can follow up at wound clinic as outpatient - Bone biopsy shows OM, continue IV antibiotics until 02/19/2019 5. Chronic spinal disease - h/o significant stenosis of her spine. Lumbar spine and thoracic spine CT show signs of stenosis though no acute fractures. - continue lidocaine patch 6. osteoarthritis - pain control 7. urinary tract infection- treated 8. Strep Bacteremia-resolved 9. History of falls - Continue PT 10. Disposition - CM on board for SNF placement. awaiting approval which may need to wait until tomorrow when office is open Result Diagram: 01/24/19 0813 01/22/19 0447 Subjective 24 Hr Interval Summary Free Text/Dictation Patient is doing well but getting irritate with the PICC line since keeps catching. Patient denies any new issues. Exam/Review of Systems Exam Vitals Vital Signs Date Temp Pulse Resp B/P (MAP) Pulse Ox O2 O2 Flow FiO2 Time Delivery Rate 01/26/19 97.7 73 15 124/72 95 Room Air 07:44 (89) Intake and Output 01/25/19 01/25/19 01/26/19 1515:00 23:00 07:00 IntakeIntake Total 550 ml 850 ml 240 ml OutputOutput Total 550 ml BalanceBalance 550 ml 850 ml -310 ml Exam General: Patient is ambulating to chair in no acute distress. upset and frustrated Respiratory: Clear to auscultation bilaterally. no wheezing or rhonchi Cardiovascular: S1, S2, regular rate and rhythm, no obvious murmurs Gastrointestinal: soft, nontender to palpation, nondistended, bowel sounds heard. Ext: Moves all extremities spontaneously. no lower extremity edema appreciated Skin: No new skin lesions, surgical incision healed Medications Medication Current Medications Albuterol (Ventolin Hfa) 2 puff Q4H PRN INH WHEEZING AND SOB; Start 12/01/18 at 21:00; Status Hold Ascorbic Acid (Vitamin C) 500 mg BID PO Last administered on 01/26/19 09:55; Admin Dose 500 MG; Start 12/01/18 at 21:00 Bupropion HCl (Wellbutrin Xl) 300 mg DAILY PO Last administered on 01/26/19 09:56; Admin Dose 300 MG; Start 12/02/18 at 09:00 Cholecalciferol (Vitamin D) 1,000 unit DAILY PO Last administered on 01/26/19 09:56; Admin Dose 1,000 UNIT; Start 12/02/18 at 09:00 Diclofenac Sodium (Voltaren 1% Gel) 2 gm TID PRN TP PAIN; Start 12/01/18 at 21:00 Levothyroxine Sodium (Synthroid) 100 mcg BEFORE BREAKFAST PO Last administered on 01/26/19 05:58; Admin Dose 100 MCG; Start 12/02/18 at 07:00 Multivitamins Therapeutic (Theragran) 1 tab DAILY PO Last administered on 01/26/19 09:56; Admin Dose 1 TAB; Start 12/02/18 at 09:00 Vitamin B Complex/ Vitamin C (Berocca) 1 cap DAILY PO Last administered on 01/26/19 09:56; Admin Dose 1 CAP; Start 12/02/18 at 09:00 Fish Oil (Fish Oil) 1,000 mg DAILY PO Last administered on 01/26/19 09:56; Admin Dose 1,000 MG; Start 12/02/18 at 09:00 Docusate Sodium (Colace) 100 mg Q12H PRN PO .CONSTIPATION; Start 12/01/18 at 22:00 Bisacodyl (Dulcolax) 5 mg DAILY PRN PO .CONSTIPATION; Start 12/01/18 at 22:00 Lidocaine (Xylocaine 1% (Mpf)) 30 ml ONCE PRN INJ aspiration ; Start 12/04/18 at 17:30 IV Flush (NS 3 ml) 3 ml PER PROTOCOL IV ; Start 12/05/18 at 21:30 Oxycodone HCl (Roxicodone) 15 mg Q4H PRN PO .PAIN Last administered on 12/30/18 13:42; Admin Dose 5 MG; Start 12/05/18 at 21:30 Oxycodone HCl (Roxicodone) 10 mg Q4H PRN PO .PAIN Last administered on 01/16/19 02:22; Admin Dose 10 MG; Start 12/05/18 at 21:30 Oxycodone HCl (Roxicodone) 5 mg Q4H PRN PO .PAIN Last administered on 01/24/19 01:47; Admin Dose 5 MG; Start 12/05/18 at 21:30 Hydromorphone HCl (Dilaudid) 1 mg Q3H PRN IV .BREAKTHROUGH PAIN Last administered on 12/06/18 06:58; Admin Dose 1 MG; Start 12/05/18 at 21:30 Ondansetron HCl (Zofran Inj) 4 mg Q4H PRN IV NAUSEA/VOMITING; Start 12/06/18 at 21:30 Pantoprazole (Protonix Tab) 40 mg DAILY@06 PO Last administered on 01/26/19 05:58; Admin Dose 40 MG; Start 12/07/18 at 06:00 Simethicone (Mylicon) 80 mg TID PRN PO .GAS; Start 12/05/18 at 21:30 Senna/Docusate Sodium (Senokot-S) 2 tab BID PRN PO .CONSTIPATION Last administered on 12/06/18 08:54; Admin Dose 2 TAB; Start 12/05/18 at 21:30 Magnesium Hydroxide (Milk Of Mag) 30 ml HS PRN PO .CONSTIPATION; Start 12/05/18 at 21:30 Bisacodyl (Dulcolax Supp) 10 mg DAILY PRN [place] .CONSTIPATION; Start 12/05/18 at 21:30 Sodium Biphosphate/ Sodium Phosphate (Fleet Enema) 133 ml DAILY PRN [place] .CONSTIPATION; Start 12/05/18 at 21:30 Diphenhydramine HCl (Benadryl) 25 mg Q4H PRN IV .ITCHING; Start 12/05/18 at 21:30 Naloxone HCl (Narcan) 0.2 mg Q2M PRN IV .RESP RATE; Start 12/05/18 at 21:30 Bethanechol Chloride (Urecholine) 25 mg URINARY CATH D/C PRN PO UNABLE TO VOID; Start 12/05/18 at 21:30 Aspirin (Halfprin) 81 mg BID PO Last administered on 01/26/19 09:56; Admin Dose 81 MG; Start 12/06/18 at 09:00 Nystatin (Nystatin Powder) 1 applic BID TOP Last administered on 01/26/19 09:57; Admin Dose 1 APPLIC; Start 12/12/18 at 21:00 Albuterol (Proventil 0.083% (Neb)) 2.5 mg Q2H RESP THERAPY PRN HHN SHORTNESS OF BREATH; Start 12/15/18 at 12:00 Gabapentin (Neurontin) 300 mg TID PO Last administered on 01/26/19 09:56; Admin Dose 300 MG; Start 12/22/18 at 13:00 Methocarbamol (Robaxin) 750 mg TID PO Last administered on 01/26/19 09:56; Admin Dose 750 MG; Start 12/28/18 at 13:00 Linezolid (Zyvox) 600 mg BID PO Last administered on 01/26/19 09:56; Admin Dose 600 MG; Start 12/28/18 at 15:00 Acetaminophen (Tylenol Tab) 1,000 mg Q6 PRN PO pain Last administered on 01/26/19 03:20; Admin Dose 1,000 MG; Start 12/28/18 at 21:30 Alteplase, Recombinant (Cathflo (Activase)) 2 mg MAY REPEAT X1 PRN CATHETER IF CATHETER REMAINS OCCULUDED Last administered on 12/29/18 16:53; Admin Dose 2 MG; Start 12/29/18 at 16:00 Sodium Hypochlorite (Dakins Diluted ()) 1 applic BID TP Last administered on 01/26/19 09:57; Admin Dose 1 APPLIC; Start 01/06/19 at 12:03 Cefepime HCl 50 ml @ 100 mls/hr Q12 IVPB Last administered on 01/26/19 09:56; Admin Dose 100 MLS/HR; Start 01/07/19 at 21:00 Collagenase (Santyl) 1 applic BID TOP Last administered on 01/26/19 09:57; Admin Dose 1 APPLIC; Start 01/07/19 at 21:00 Fluconazole (Diflucan) 100 mg DAILY PO Last administered on 01/26/19 09:56; Admin Dose 100 MG; Start 01/13/19 at 11:30 Lisinopril (Zestril) 2.5 mg DAILY PO Last administered on 01/26/19 10:01; Admin Dose 2.5 MG; Start 01/17/19 at 09:00 Polyethylene Glycol (Miralax) 17 gm DAILY PRN PO constipation; Start 01/18/19 at 12:30 Senna (Senokot) 1 tab BID PRN PO constipation; Start 01/18/19 at 12:30 Lidocaine (Lidoderm) 1 patch QHS TD Last administered on 01/22/19at 21:26; Admin Dose 1 PATCH; Start 01/18/19 at 21:00 Celecoxib (Celebrex) 100 mg BID PO Last administered on 01/26/19 09:56; Admin Dose 100 MG; Start 01/23/19 at 12:00 BALTAZAR BARAJAS MD January 26, 2019 11:34
--- NOTE | 2019-01-26 12:19 | PN ---
Date/Time of Note Date/Time of Note DATE: 01/26/19 TIME: 12:18 Assessment/Plan Lines/Catheters IV Catheter Type (from Nrs): PICC Line Schaeffer in Place (from Nrs): No Assessment/Plan Chief Complaint/Hosp Course 1. Sacral wound: + Wound cultures; status post repeat debridement 01/07/2019; bone pathology noted; soft bone noted during debridement> + osteo; repeat wound cultures noted> now off isolation. s/p abx per ID -Repeat debridement as needed > can follow with Dr. Nation at wound care clinic -Continue local care w santyl -frequent turning and off-loading -low air loss mattress -vitamin c -short term zinc -optimize nutrition -dc ok from surgical standpoint> pending SNF placement 2. Bacteremia: Repeat blood culture: NG 3.Septic right knee joint status post I&D: -Per Ortho 4. Spine disease: Status post spinal surgeries -Supportive 5.UTI: -abx per sensitivity -frequent bladder emptying/cath care 6. Osteoarthritis: -Medical management Thank you. Patient seen and examined in collaboration with Dr. Fernandez Nation Subjective 24 Hr Interval Summary No acute events. Placement pending. No fevers, chills, sob, congested cough, cp, palpitations, ruano, dizziness, n/v/d/dysuria, wound drainage or odor. Exam/Review of Systems Vital Signs Vitals Vital Signs Date Temp Pulse Resp B/P (MAP) Pulse Ox O2 O2 Flow FiO2 Time Delivery Rate 01/26/19 97.7 73 15 124/72 95 Room Air 07:44 (89) Intake and Output 01/25/19 01/25/19 01/26/19 1515:00 23:00 07:00 IntakeIntake Total 550 ml 850 ml 240 ml OutputOutput Total 550 ml BalanceBalance 550 ml 850 ml -310 ml Exam Free Text/Dictation Constitutional: alert, oriented Psych: nl mood/affect; No anxiety Head: normocephalic, atraumatic Eyes: nl conjunctiva, EOMI, nl lids, nl sclera ENMT: nl external ears & nose, nl lips & teeth, nl nasal mucosa & septum, mucosa pink and moist Neck: supple, non-tender; No jvd Respiratory: normal air movement; No congested cough Cardiovascular: regular rate and rhythm, nl pulses; No edema Gastrointestinal: soft, non-tender; No distended Genitourinary - Female: nl external genitalia Musculoskeletal: nl extremities to inspection; No nl gait and stance Extremities: normal pulses Neurological: nl mental status, nl speech, nl strength Skin: nl turgor, other (Sacrum: Minimal Slough, min drainage, no odor, minimal periwound erythema-much improved) Lymph: nl lymph nodes Results Result Diagram: 01/24/19 0813 01/22/19 0447 YESSICA ALAMO NP January 26, 2019 12:19
--- NOTE | 2019-01-26 12:54 | CONS ---
Consultation Date/Type/Reason Admit Date/Time Dec 01, 2018 at 19:24 Initial Consult Date SUBJECTIVE: Pt is awake, alert, afebrile. No acute events over night VS: stable T: 97.7 LABS: reviewed. Antimicrobials:Cefepime, Zyvox and fluconazole Microbiology: Blood culture on admission grew strep, urine culture grew E. coli, MRSA swab negative, repeat blood cultures negative. Sacral wound cx + VRE/Proteus/Strep/Marita 2D echo revealed no vegetations Physical examination: GEN: This is well-developed well-nourished elderly woman, who is alert in no distress. HENT: Head atraumatic normocephalic, neck is supple. PULM: Chest rise symmetrical breath sounds clear. Heart: S1-S2. Abdomen: soft, bowel tones present. Extremities with right knee erythema and swelling Assessment: 1. 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 Status post sepsis, present on admission 3. Streptococcal bacteremia 2 to #3 4. 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 S/P Urinary tract infection 6. History of left total knee replacement 7. History of multilevel discectomy and posterior fusion from L1-L3, please see CT in the chart Plan: Patient remains stable. Continue on current abx for 6 weeks to treat OM (last day 02/19/19) . D/C pending to SNF. Requesting Provider: TERESA COSBY Date/Time of Note DATE: 01/26/19 TIME: 12:53 Exam/Review of Systems Exam Vitals Vital Signs Date Temp Pulse Resp B/P (MAP) Pulse Ox O2 O2 Flow FiO2 Time Delivery Rate 01/26/19 97.7 73 15 124/72 95 Room Air 07:44 (89) Intake and Output 01/25/19 01/25/19 01/26/19 1515:00 23:00 07:00 IntakeIntake Total 550 ml 850 ml 240 ml OutputOutput Total 550 ml BalanceBalance 550 ml 850 ml -310 ml Results Result Diagram: 01/24/19 0813 01/22/19 0447 Medications Medication Current Medications Albuterol (Ventolin Hfa) 2 puff Q4H PRN INH WHEEZING AND SOB; Start 12/01/18 at 21:00; Status Hold Ascorbic Acid (Vitamin C) 500 mg BID PO Last administered on 01/26/19 09:55; Admin Dose 500 MG; Start 12/01/18 at 21:00 Bupropion HCl (Wellbutrin Xl) 300 mg DAILY PO Last administered on 01/26/19 09:56; Admin Dose 300 MG; Start 12/02/18 at 09:00 Cholecalciferol (Vitamin D) 1,000 unit DAILY PO Last administered on 01/26/19 09:56; Admin Dose 1,000 UNIT; Start 12/02/18 at 09:00 Diclofenac Sodium (Voltaren 1% Gel) 2 gm TID PRN TP PAIN; Start 12/01/18 at 21:00 Levothyroxine Sodium (Synthroid) 100 mcg BEFORE BREAKFAST PO Last administered on 01/26/19 05:58; Admin Dose 100 MCG; Start 12/02/18 at 07:00 Multivitamins Therapeutic (Theragran) 1 tab DAILY PO Last administered on 01/26/19 09:56; Admin Dose 1 TAB; Start 12/02/18 at 09:00 Vitamin B Complex/ Vitamin C (Berocca) 1 cap DAILY PO Last administered on 01/26/19 09:56; Admin Dose 1 CAP; Start 12/02/18 at 09:00 Fish Oil (Fish Oil) 1,000 mg DAILY PO Last administered on 01/26/19 09:56; Adm in Dose 1,000 MG; Start 12/02/18 at 09:00 Docusate Sodium (Colace) 100 mg Q12H PRN PO .CONSTIPATION; Start 12/01/18 at 22:00 Bisacodyl (Dulcolax) 5 mg DAILY PRN PO .CONSTIPATION; Start 12/01/18 at 22:00 Lidocaine (Xylocaine 1% (Mpf)) 30 ml ONCE PRN INJ aspiration ; Start 12/04/18 at 17:30 IV Flush (NS 3 ml) 3 ml PER PROTOCOL IV ; Start 12/05/18 at 21:30 Oxycodone HCl (Roxicodone) 15 mg Q4H PRN PO .PAIN Last administered on 12/30/18 13:42; Admin Dose 5 MG; Start 12/05/18 at 21:30 Oxycodone HCl (Roxicodone) 10 mg Q4H PRN PO .PAIN Last administered on 01/16/19 02:22; Admin Dose 10 MG; Start 12/05/18 at 21:30 Oxycodone HCl (Roxicodone) 5 mg Q4H PRN PO .PAIN Last administered on 01/24/19at 01:47; Admin Dose 5 MG; Start 12/05/18 at 21:30 Hydromorphone HCl (Dilaudid) 1 mg Q3H PRN IV .BREAKTHROUGH PAIN Last administered on 12/06/18 06:58; Admin Dose 1 MG; Start 12/05/18 at 21:30 Ondansetron HCl (Zofran Inj) 4 mg Q4H PRN IV NAUSEA/VOMITING; Start 12/06/18 at 21:30 Pantoprazole (Protonix Tab) 40 mg DAILY@06 PO Last administered on 01/26/19 05:58; Admin Dose 40 MG; Start 12/07/18 at 06:00 Simethicone (Mylicon) 80 mg TID PRN PO .GAS; Start 12/05/18 at 21:30 Senna/Docusate Sodium (Senokot-S) 2 tab BID PRN PO .CONSTIPATION Last administered on 12/06/18 08:54; Admin Dose 2 TAB; Start 12/05/18 at 21:30 Magnesium Hydroxide (Milk Of Mag) 30 ml HS PRN PO .CONSTIPATION; Start 12/05/18 at 21:30 Bisacodyl (Dulcolax Supp) 10 mg DAILY PRN [place] .CONSTIPATION; Start 12/05/18 at 21:30 Sodium Biphosphate/ Sodium Phosphate (Fleet Enema) 133 ml DAILY PRN [place] .CONSTIPATION; Start 12/05/18 at 21:30 Diphenhydramine HCl (Benadryl) 25 mg Q4H PRN IV .ITCHING; Start 12/05/18 at 21:30 Naloxone HCl (Narcan) 0.2 mg Q2M PRN IV .RESP RATE; Start 12/05/18 at 21:30 Bethanechol Chloride (Urecholine) 25 mg URINARY CATH D/C PRN PO UNABLE TO VOID; Start 12/05/18 at 21:30 Aspirin (Halfprin) 81 mg BID PO Last administered on 01/26/19 09:56; Admin Dose 81 MG; Start 12/06/18 at 09:00 Nystatin (Nystatin Powder) 1 applic BID TOP Last administered on 01/26/19 09:57; Admin Dose 1 APPLIC; Start 12/12/18 at 21:00 Albuterol (Proventil 0.083% (Neb)) 2.5 mg Q2H RESP THERAPY PRN HHN SHORTNESS OF BREATH; Start 12/15/18 at 12:00 Gabapentin (Neurontin) 300 mg TID PO Last administered on 01/26/19 09:56; Ad min Dose 300 MG; Start 12/22/18 at 13:00 Methocarbamol (Robaxin) 750 mg TID PO Last administered on 01/26/19 09:56; Admin Dose 750 MG; Start 12/28/18 at 13:00 Linezolid (Zyvox) 600 mg BID PO Last administered on 01/26/19 09:56; Admin Dose 600 MG; Start 12/28/18 at 15:00 Acetaminophen (Tylenol Tab) 1,000 mg Q6 PRN PO pain Last administered on 01/26/19 03:20; Admin Dose 1,000 MG; Start 12/28/18 at 21:30 Alteplase, Recombinant (Cathflo (Activase)) 2 mg MAY REPEAT X1 PRN CATHETER IF CATHETER REMAINS OCCULUDED Last administered on 12/29/18 16:53; Admin Dose 2 MG; Start 12/29/18 at 16:00 Sodium Hypochlorite (Dakins Diluted (1/40)) 1 applic BID TP Last administered on 01/26/19 09:57; Admin Dose 1 APPLIC; Start 01/06/19 at 12:03 Cefepime HCl 50 ml @ 100 mls/hr Q12 IVPB Last administered on 01/26/19 09:56; Admin Dose 100 MLS/HR; Start 01/07/19 at 21:00 Collagenase (Santyl) 1 applic BID TOP Last administered on 01/26/19 09:57; Admin Dose 1 APPLIC; Start 01/07/19 at 21:00 Fluconazole (Diflucan) 100 mg DAILY PO Last administered on 01/26/19 09:56; Admin Dose 100 MG; Start 01/13/19 at 11:30 Lisinopril (Zestril) 2.5 mg DAILY PO Last administered on 5/19/19at 10:01; Admin Dose 2.5 MG; Start 01/17/19 at 09:00 Polyethylene Glycol (Miralax) 17 gm DAILY PRN PO constipation; Start 01/18/19 at 12:30 Senna (Senokot) 1 tab BID PRN PO constipation; Start 01/18/19 at 12:30 Lidocaine (Lidoderm) 1 patch QHS TD Last administered on 01/22/19at 21:26; Admin Dose 1 PATCH; Start 01/18/19 at 21:00 Celecoxib (Celebrex) 100 mg BID PO Last administered on 01/26/19at 09:56; Admin Dose 100 MG; Start 01/23/19 at 12:00 ARNULFO RENDON January 26, 2019 12:54
[2019-01-26 14:36] VITALS: BP 107/60; PULSE 89; RESP 14
[2019-01-26 20:05] VITALS: BP 103/55; PULSE 86; RESP 18
[2019-01-26] MEDS: LIDOCAINE 5% PATCH TD SCH (21:00)
[2019-01-27 01:43] VITALS: BP 108/58; PULSE 84; RESP 18
[2019-01-27] MEDS: ACETAMINOPHEN 500 MG TAB PO PRN (04:57)
[2019-01-27] MEDS: LEVOTHYROXINE 100 MCG TAB PO SCH (07:03)
[2019-01-27] MEDS: PANTOPRAZOLE (EC) 40 MG TAB PO SCH (07:03)
[2019-01-27 07:18] VITALS: BP 133/62; PULSE 68; RESP 19
[2019-01-27] MEDS: GABAPENTIN 300 MG CAP PO SCH ×3 (08:43→21:04)
[2019-01-27] MEDS: ZYVOX 600 MG TAB PO SCH ×2 (08:43→21:04)
[2019-01-27] MEDS: ASCORBIC ACID 500 MG TAB PO SCH ×2 (08:43→21:04)
[2019-01-27] MEDS: FLUCONAZOLE 100 MG TAB PO SCH (08:43)
[2019-01-27] MEDS: COLLAGENASE 5 GM (UD JAR) TOP SCH ×2 (08:43→21:05)
[2019-01-27] MEDS: MULTIVITAMINS THERAPEUTIC TAB PO SCH (08:43)
[2019-01-27] MEDS: CEFEPIME 1GM/50 ML (PMX) 50 ML IVPB SCH ×2 (08:44→21:03)
[2019-01-27] MEDS: NYSTATIN 30 GM POWDER BTL TOP SCH ×2 (08:44→21:05)
[2019-01-27] MEDS: CELECOXIB 100 MG CAP PO SCH ×2 (08:44→21:04)
[2019-01-27] MEDS: VITAMIN B COMPLEX/VIT C CAP PO SCH (08:44)
[2019-01-27] MEDS: METHOCARBAMOL 750 MG TAB PO SCH ×3 (08:44→21:03)
[2019-01-27] MEDS: CHOLECALCIFEROL 1,000 UNIT TAB PO SCH (08:44)
[2019-01-27] MEDS: BUPROPION (XL) 150 MG TAB PO SCH (08:44)
[2019-01-27] MEDS: FISH OIL 1,000 MG CAP PO SCH (08:44)
[2019-01-27] MEDS: ASPIRIN (EC) 81 MG TAB PO SCH ×2 (08:44→21:04)
[2019-01-27] MEDS: LISINOPRIL 5 MG TAB PO SCH (08:45)
[2019-01-27] MEDS: DAKINS 0.0125%(1/40) 473 ML SOLUTION TP SCH ×2 (08:45→21:06)
[2019-01-27] MEDS: BALSAM PERU/CASTOR OIL 60 GM TUBE TOP SCH ×2 (08:45→21:06)
--- NOTE | 2019-01-27 10:48 | PN ---
Date/Time of Note Date/Time of Note DATE: 01/27/19 TIME: 10:46 Assessment/Plan VTE Prophylaxis Risk score (from Nsg)>0 risk: 3 SCD applied (from Nsg): Yes Pharmacological prophylaxis: NA/contraindicated Pharm contraindication: low risk/ambulating Lines/Catheters IV Catheter Type (from Nrsg): PICC Line Central line still needed: Yes Urinary Cath still in place: No Assessment/Plan Assessment/Plan 1. Sepsis secondary to decubitus ulcers and osteomyelitis-resolved - Patient remains afebrile 2. Septic R knee joint s/p I&D on 12/05/18- resolved - Ortho consultation appreciated - pain control 3. Left leg muscle spasm- improved - Robaxin TID 4. Sacral wound with OM s/p debridement - General surgery consultation appreciated and cleared for d/c from their standpoint. Continue antibiotics and local wound care. Can follow up at wound clinic as outpatient - Bone biopsy shows OM, continue IV antibiotics until 02/19/2019 5. Chronic spinal disease - h/o significant stenosis of her spine. Lumbar spine and thoracic spine CT show signs of stenosis though no acute fractures. - continue lidocaine patch 6. osteoarthritis - pain control 7. urinary tract infection- treated 8. Strep Bacteremia-resolved 9. History of falls - Continue PT 10. Disposition - CM on board for SNF placement and medically stable for discharge once accepted Result Diagram: 01/24/19 0813 Subjective 24 Hr Interval Summary Free Text/Dictation Patient doing well and denies any new issues. Discussed placement and states shes okay to go back to [facility] despite son not liking the facility since she received adequate PT there. No acute overnight events. Exam/Review of Systems Exam Vitals Vital Signs Date Temp Pulse Resp B/P (MAP) Pulse Ox O2 O2 Flow FiO2 Time Delivery Rate 01/27/19 98.2 68 19 133/62 98 07:18 (85) 01/27/19 Room Air 01:43 Intake and Output 01/26/19 01/26/19 01/27/19 1515:00 23:00 07:00 IntakeIntake Total 630 ml 650 ml 430 ml BalanceBalance 630 ml 650 ml 430 ml Exam General: Patient is sitting in chair at bedside. no acute distress Respiratory: Clear to auscultation bilaterally. no wheezing or rhonchi Cardiovascular: S1, S2, regular rate and rhythm, no obvious murmurs Gastrointestinal: soft, nontender to palpation, nondistended, bowel sounds heard. Ext: Moves all extremities spontaneously. no lower extremity edema appreciated Skin: No new skin lesions, surgical incision healed Medications Medication Current Medications Albuterol (Ventolin Hfa) 2 puff Q4H PRN INH WHEEZING AND SOB; Start 12/01/18 at 21:00; Status Hold Ascorbic Acid (Vitamin C) 500 mg BID PO Last administered on 01/27/19 08:43; Admin Dose 500 MG; Start 12/01/18 at 21:00 Bupropion HCl (Wellbutrin Xl) 300 mg DAILY PO Last administered on 01/27/19 08:44; Admin Dose 300 MG; Start 12/02/18 at 09:00 Cholecalciferol (Vitamin D) 1,000 unit DAILY PO Last administered on 01/27/19 08:44; Admin Dose 1,000 UNIT; Start 12/02/18 at 09:00 Diclofenac Sodium (Voltaren 1% Gel) 2 gm TID PRN TP PAIN; Start 12/01/18 at 21:00 Levothyroxine Sodium (Synthroid) 100 mcg BEFORE BREAKFAST PO Last administered on 01/27/19 07:03; Admin Dose 100 MCG; Start 12/02/18 at 07:00 Multivitamins Therapeutic (Theragran) 1 tab DAILY PO Last administered on 01/27/19 08:43; Admin Dose 1 TAB; Start 12/02/18 at 09:00 Vitamin B Complex/ Vitamin C (Berocca) 1 cap DAILY PO Last administered on 01/27/19 08:44; Admin Dose 1 CAP; Start 12/02/18 at 09:00 Fish Oil (Fish Oil) 1,000 mg DAILY PO Last administered on 01/27/19 08:44; Admin Dose 1,000 MG; Start 12/02/18 at 09:00 Docusate Sodium (Colace) 100 mg Q12H PRN PO .CONSTIPATION; Start 12/01/18 at 22:00 Bisacodyl (Dulcolax) 5 mg DAILY PRN PO .CONSTIPATION; Start 12/01/18 at 22:00 Lidocaine (Xylocaine 1% (Mpf)) 30 ml ONCE PRN INJ aspiration ; Start 12/04/18 at 17:30 IV Flush (NS 3 ml) 3 ml PER PROTOCOL IV ; Start 12/05/18 at 21:30 Oxycodone HCl (Roxicodone) 15 mg Q4H PRN PO .PAIN Last administered on 12/30/18 at 13:42; Admin Dose 5 MG; Start 12/05/18 at 21:30 Oxycodone HCl (Roxicodone) 10 mg Q4H PRN PO .PAIN Last administered on 01/16/19at 02:22; Admin Dose 10 MG; Start 12/05/18 at 21:30 Oxycodone HCl (Roxicodone) 5 mg Q4H PRN PO .PAIN Last administered on 01/24/19at 01:47; Admin Dose 5 MG; Start 12/05/18 at 21:30 Hydromorphone HCl (Dilaudid) 1 mg Q3H PRN IV .BREAKTHROUGH PAIN Last administered on 12/06/18at 06:58; Admin Dose 1 MG; Start 12/05/18 at 21:30 Ondansetron HCl (Zofran Inj) 4 mg Q4H PRN IV NAUSEA/VOMITING; Start 12/06/18 at 21:30 Pantoprazole (Protonix Tab) 40 mg DAILY@06 PO Last administered on 01/27/19at 07:03; Admin Dose 40 MG; Start 12/07/18 at 06:00 Simethicone (Mylicon) 80 mg TID PRN PO .GAS; Start 12/05/18 at 21:30 Senna/Docusate Sodium (Senokot-S) 2 tab BID PRN PO .CONSTIPATION Last administered on 12/06/18at 08:54; Admin Dose 2 TAB; Start 12/05/18 at 21:30 Magnesium Hydroxide (Milk Of Mag) 30 ml HS PRN PO .CONSTIPATION; Start 12/05/18 at 21:30 Bisacodyl (Dulcolax Supp) 10 mg DAILY PRN [place] .CONSTIPATION; Start 12/05/18 at 21:30 Sodium Biphosphate/ Sodium Phosphate (Fleet Enema) 133 ml DAILY PRN [place] .CONSTIPATION; Start 12/05/18 at 21:30 Diphenhydramine HCl (Benadryl) 25 mg Q4H PRN IV .ITCHING; Start 12/05/18 at 21:30 Naloxone HCl (Narcan) 0.2 mg Q2M PRN IV .RESP RATE; Start 12/05/18 at 21:30 Bethanechol Chloride (Urecholine) 25 mg URINARY CATH D/C PRN PO UNABLE TO VOID; Start 12/05/18 at 21:30 Aspirin (Halfprin) 81 mg BID PO Last administered on 01/27/19 08:44; Admin Dose 81 MG; Start 12/06/18 at 09:00 Nystatin (Nystatin Powder) 1 applic BID TOP Last administered on 01/27/19 08:44; Admin Dose 1 APPLIC; Start 12/12/18 at 21:00 Albuterol (Proventil 0.083% (Neb)) 2.5 mg Q2H RESP THERAPY PRN HHN SHORTNESS OF BREATH; Start 12/15/18 at 12:00 Gabapentin (Neurontin) 300 mg TID PO Last administered on 01/27/19 08:43; Admin Dose 300 MG; Start 12/22/18 at 13:00 Methocarbamol (Robaxin) 750 mg TID PO Last administered on 01/27/19 08:44; Admin Dose 750 MG; Start 12/28/18 at 13:00 Linezolid (Zyvox) 600 mg BID PO Last administered on 01/27/19 08:43; Admin Dose 600 MG; Start 12/28/18 at 15:00 Acetaminophen (Tylenol Tab) 1,000 mg Q6 PRN PO pain Last administered on 01/27/19 04:57; Admin Dose 1,000 MG; Start 12/28/18 at 21:30 Alteplase, Recombinant (Cathflo (Activase)) 2 mg MAY REPEAT X1 PRN CATHETER IF CATHETER REMAINS OCCULUDED Last administered on 12/29/18 16:53; Admin Dose 2 MG; Start 12/29/18 at 16:00 Sodium Hypochlorite (Dakins Diluted ()) 1 applic BID TP Last administered on 01/27/19 08:45; Admin Dose 1 APPLIC; Start 01/06/19 at 12:03 Cefepime HCl 50 ml @ 100 mls/hr Q12 IVPB Last administered on 01/27/19 08:44; Admin Dose 100 MLS/HR; Start 01/07/19 at 21:00 Collagenase (Santyl) 1 applic BID TOP Last administered on 01/27/19 08:43; Admin Dose 1 APPLIC; Start 01/07/19 at 21:00 Fluconazole (Diflucan) 100 mg DAILY PO Last administered on 01/27/19 08:43; Admin Dose 100 MG; Start 01/13/19 at 11:30 Lisinopril (Zestril) 2.5 mg DAILY PO Last administered on 01/27/19 08:45; Admin Dose 2.5 MG; Start 01/17/19 at 09:00 Polyethylene Glycol (Miralax) 17 gm DAILY PRN PO constipation; Start 01/18/19 at 12:30 Senna (Senokot) 1 tab BID PRN PO constipation; Start 01/18/19 at 12:30 Lidocaine (Lidoderm) 1 patch QHS TD Last administered on 01/22/19 21:26; Admin Dose 1 PATCH; Start 01/18/19 at 21:00 Celecoxib (Celebrex) 100 mg BID PO Last administered on 01/27/19 08:44; Admin Dose 100 MG; Start 01/23/19 at 12:00 BALTAZAR BARAJAS MD January 27, 2019 10:48
--- NOTE | 2019-01-27 11:12 | PN ---
Date/Time of Note Date/Time of Note DATE: 01/27/19 TIME: 11:10 Assessment/Plan Lines/Catheters IV Catheter Type (from [facility]): PICC Line Schaeffer in Place (from [facility]): No Assessment/Plan Chief Complaint/Hosp Course 1. Sacral wound: + Wound cultures; status post repeat debridement 01/07/2019; bone pathology noted; soft bone noted during debridement> + osteo; repeat wound cultures noted> now off isolation. s/p abx per ID -Repeat debridement as needed > can follow with Dr. Mcmanus at wound care clinic -Continue local care w santyl -frequent turning and off-loading -low air loss mattress -vitamin c -short term zinc -optimize nutrition -dc ok from surgical standpoint> pending SNF placement 2. Bacteremia: Repeat blood culture: NG 3.Septic right knee joint status post I&D: -Per Ortho 4. Spine disease: Status post spinal surgeries -Supportive 5.UTI: -abx per sensitivity -frequent bladder emptying/cath care 6. Osteoarthritis: -Medical management Thank you, Subjective 24 Hr Interval Summary No acute events. Placement pending. No fevers, chills, sob, congested cough, cp, palpitations, ruano, dizziness, n/v/d/dysuria, wound drainage or odor. Exam/Review of Systems Vital Signs Vitals Vital Signs Date Temp Pulse Resp B/P (MAP) Pulse Ox O2 O2 Flow FiO2 Time Delivery Rate 01/27/19 98.2 68 19 133/62 98 07:18 (85) 01/27/19 Room Air 01:43 Intake and Output 01/26/19 01/26/19 01/27/19 1515:00 23:00 07:00 IntakeIntake Total 630 ml 650 ml 430 ml BalanceBalance 630 ml 650 ml 430 ml Exam Free Text/Dictation Constitutional: alert, oriented Psych: nl mood/affect; No anxiety Head: normocephalic, atraumatic Eyes: nl conjunctiva, EOMI, nl lids, nl sclera ENMT: nl external ears & nose, nl lips & teeth, nl nasal mucosa & septum, mucosa pink and moist Neck: supple, non-tender; No jvd Respiratory: normal air movement; No congested cough Cardiovascular: regular rate and rhythm, nl pulses; No edema Gastrointestinal: soft, non-tender; No distended Genitourinary - Female: nl external genitalia Musculoskeletal: nl extremities to inspection; No nl gait and stance Extremities: normal pulses Neurological: nl mental status, nl speech, nl strength Skin: nl turgor, other (Sacrum: Minimal Slough, min drainage, no odor, minimal periwound erythema-much improved) Lymph: nl lymph nodes Results Result Diagram: 01/24/19 0813 GABRIELA MCMANUS MD January 27, 2019 11:12
[2019-01-27] MEDS ORDERED: [UNRECOGNIZED DRUG - REMARK] XX SCH (13:30)
--- NOTE | 2019-01-27 14:23 | CONS ---
Assessment/Plan Assessment/Plan Hospital Course (Demo Recall) No events overnight looks comfortable Antimicrobials: Cefepime, Zyvox fluconazole Microbiology: Blood culture on admission grew strep, urine culture grew E. coli, MRSA swab negative, repeat blood cultures negative. Sacral wound cx + VRE/Proteus/Strep/Marita 2D echo revealed no vegetations Physical examination: This is well-developed well-nourished elderly woman who is alert in no distress. Head atraumatic normocephalic neck is supple. Chest rise symmetrical breath sounds clear. Heart: S1-S2. Abdomen soft, bowel tones present. Extremities wnl Assessment: 1. 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 Status post sepsis 3. S/p streptococcal bacteremia 2 to #4 4. 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 S/p urinary tract infection 6. History of left total knee replacement 7. History of multilevel discectomy and posterior fusion from L1-L3, please see CT in the chart Plan: Remains stable, continue on current abx for 6 weeks to treat OM==> last day 02/19/19, monitor CBC Consultation Date/Type/Reason Admit Date/Time Dec 01, 2018 at 19:24 Initial Consult Date Type of Consult id Requesting Provider: TERESA COSBY Date/Time of Note DATE: 01/27/19 TIME: 14:22 Exam/Review of Systems Exam Vitals Vital Signs Date Temp Pulse Resp B/P (MAP) Pulse Ox O2 O2 Flow FiO2 Time Delivery Rate 01/27/19 98.2 68 19 133/62 98 07:18 (85) 01/27/19 Room Air 01:43 Intake and Output 01/26/19 01/26/19 01/27/19 1515:00 23:00 07:00 IntakeIntake Total 630 ml 650 ml 430 ml BalanceBalance 630 ml 650 ml 430 ml Results Result Diagram: 01/27/19 1209 Results 24hrs Laboratory Tests Test 01/27/19 12:09 White Blood Count 4.0 L Red Blood Count 3.19 L Hemoglobin 8.5 L Hematocrit 27.6 L Mean Corpuscular Volume 86.5 Mean Corpuscular Hemoglobin 26.6 L Mean Corpuscular Hemoglobin Concent 30.8 L Red Cell Distribution Width 21.0 H Platelet Count 182 Mean Platelet Volume 9.5 Immature Granulocytes % 0.300 Neutrophils % Segmented Neutrophils % (Manual) 55 Band Neutrophils % (Manual) 9 H Lymphocytes % Lymphocytes % (Manual) 21 Monocytes % Monocytes % (Manual) 9 Eosinophils % Eosinophils % (Manual) 4 Basophils % Basophils % (Manual) 2 Nucleated Red Blood Cells % 0.0 Immature Granulocytes # 0.010 Neutrophils # Neutrophils # (Manual) 2.2 Band Neutrophils # 0.3 Lymphocytes (Manual) 0.8 Lymphocytes # Monocytes # Monocytes # (Manual) 0.3 Eosinophils # Basophils # Basophils # (Manual) 0.0 Nucleated Red Blood Cells # Platelet Estimate NORMAL Giant Platelets 1 H Polychromasia 3+ Hypochromasia 2+ Poikilocytosis 1+ Anisocytosis 1+ Microcytosis 1+ Target Cells 1+ Medications Medication Current Medications Albuterol (Ventolin Hfa) 2 puff Q4H PRN INH WHEEZING AND SOB; Start 12/01/18 at 21:00; Status Hold Ascorbic Acid (Vitamin C) 500 mg BID PO Last administered on 01/27/19 08:43; Admin Dose 500 MG; Start 12/01/18 at 21:00 Bupropion HCl (Wellbutrin Xl) 300 mg DAILY PO Last administered on 01/27/19 08:44; Admin Dose 300 MG; Start 12/02/18 at 09:00 Cholecalciferol (Vitamin D) 1,000 unit DAILY PO Last administered on 01/27/19 08:44; Admin Dose 1,000 UNIT; Start 12/02/18 at 09:00 Diclofenac Sodium (Voltaren 1% Gel) 2 gm TID PRN TP PAIN; Start 12/01/18 at 21 :00 Levothyroxine Sodium (Synthroid) 100 mcg BEFORE BREAKFAST PO Last administered on 01/27/19 07:03; Admin Dose 100 MCG; Start 12/02/18 at 07:00 Multivitamins Therapeutic (Theragran) 1 tab DAILY PO Last administered on 01/27/19 08:43; Admin Dose 1 TAB; Start 12/02/18 at 09:00 Vitamin B Complex/ Vitamin C (Berocca) 1 cap DAILY PO Last administered on 01/27/19 08:44; Admin Dose 1 CAP; Start 12/02/18 at 09:00 Fish Oil (Fish Oil) 1,000 mg DAILY PO Last administered on 01/27/19 08:44; Admin Dose 1,000 MG; Start 12/02/18 at 09:00 Docusate Sodium (Colace) 100 mg Q12H PRN PO .CONSTIPATION; Start 12/01/18 at 22:00 Bisacodyl (Dulcolax) 5 mg DAILY PRN PO .CONSTIPATION; Start 12/01/18 at 22:00 Lidocaine (Xylocaine 1% (Mpf)) 30 ml ONCE PRN INJ aspiration ; Start 12/04/18 at 17:30 IV Flush (NS 3 ml) 3 ml PER PROTOCOL IV ; Start 12/05/18 at 21:30 Oxycodone HCl (Roxicodone) 15 mg Q4H PRN PO .PAIN Last administered on 12/30/18 13:42; Admin Dose 5 MG; Start 12/05/18 at 21:30 Oxycodone HCl (Roxicodone) 10 mg Q4H PRN PO .PAIN Last administered on 01/16/19 02:22; Admin Dose 10 MG; Start 12/05/18 at 21:30 Oxycodone HCl (Roxicodone) 5 mg Q4H PRN PO .PAIN Last administered on 01/24/19 01:47; Admin Dose 5 MG; Start 12/05/18 at 21:30 Hydromorphone HCl (Dilaudid) 1 mg Q3H PRN IV .BREAKTHROUGH PAIN Last administered on 12/06/18 06:58; Admin Dose 1 MG; Start 12/05/18 at 21:30 Ondansetron HCl (Zofran Inj) 4 mg Q4H PRN IV NAUSEA/VOMITING; Start 12/06/18 at 21:30 Pantoprazole (Protonix Tab) 40 mg DAILY@06 PO Last administered on 01/27/19 07:03; Admin Dose 40 MG; Start 12/07/18 at 06:00 Simethicone (Mylicon) 80 mg TID PRN PO .GAS; Start 12/05/18 at 21:30 Senna/Docusate Sodium (Senokot-S) 2 tab BID PRN PO .CONSTIPATION Last administered on 12/06/18 08:54; Admin Dose 2 TAB; Start 12/05/18 at 21:30 Magnesium Hydroxide (Milk Of Mag) 30 ml HS PRN PO .CONSTIPATION; Start 12/05/18 at 21:30 Bisacodyl (Dulcolax Supp) 10 mg DAILY PRN [place] .CONSTIPATION; Start 12/05/18 at 21:30 Sodium Biphosphate/ Sodium Phosphate (Fleet Enema) 133 ml DAILY PRN [place] .CONSTIPATION; Start 12/05/18 at 21:30 Diphenhydramine HCl (Benadryl) 25 mg Q4H PRN IV .ITCHING; Start 12/05/18 at 21:30 Naloxone HCl (Narcan) 0.2 mg Q2M PRN IV .RESP RATE; Start 12/05/18 at 21:30 Bethanechol Chloride (Urecholine) 25 mg URINARY CATH D/C PRN PO UNABLE TO VOID; Start 12/05/18 at 21:30 Aspirin (Halfprin) 81 mg BID PO Last administered on 01/27/19 08:44; Admin Dose 81 MG; Start 12/06/18 at 09:00 Nystatin (Nystatin Powder) 1 applic BID TOP Last administered on 01/27/19 08:44; Admin Dose 1 APPLIC; Start 12/12/18 at 21:00 Albuterol (Proventil 0.083% (Neb)) 2.5 mg Q2H RESP THERAPY PRN HHN SHORTNESS OF BREATH; Start 12/15/18 at 12:00 Gabapentin (Neurontin) 300 mg TID PO Last administered on 01/27/19 13:23; Admi n Dose 300 MG; Start 12/22/18 at 13:00 Methocarbamol (Robaxin) 750 mg TID PO Last administered on 01/27/19 13:23; Admin Dose 750 MG; Start 12/28/18 at 13:00 Linezolid (Zyvox) 600 mg BID PO Last administered on 01/27/19 08:43; Admin Dose 600 MG; Start 12/28/18 at 15:00 Acetaminophen (Tylenol Tab) 1,000 mg Q6 PRN PO pain Last administered on 01/27/19 04:57; Admin Dose 1,000 MG; Start 12/28/18 at 21:30 Alteplase, Recombinant (Cathflo (Activase)) 2 mg MAY REPEAT X1 PRN CATHETER IF CATHETER REMAINS OCCULUDED Last administered on 12/29/18 16:53; Admin Dose 2 MG; Start 12/29/18 at 16:00 Sodium Hypochlorite (Dakins Diluted ()) 1 applic BID TP Last administered on 01/27/19 08:45; Admin Dose 1 APPLIC; Start 01/06/19 at 12:03 Cefepime HCl 50 ml @ 100 mls/hr Q12 IVPB Last administered on 01/27/19 08:44; Admin Dose 100 MLS/HR; Start 01/07/19 at 21:00 Collagenase (Santyl) 1 applic BID TOP Last administered on 01/27/19 08:43; Admin Dose 1 APPLIC; Start 01/07/19 at 21:00 Fluconazole (Diflucan) 100 mg DAILY PO Last administered on 01/27/19 08:43; Admin Dose 100 MG; Start 01/13/19 at 11:30 Lisinopril (Zestril) 2.5 mg DAILY PO Last administered on 01/27/19 08:45; Admin Dose 2.5 MG; Start 01/17/19 at 09:00 Polyethylene Glycol (Miralax) 17 gm DAILY PRN PO constipation; Start 01/18/19 at 12:30 Senna (Senokot) 1 tab BID PRN PO constipation; Start 01/18/19 at 12:30 Lidocaine (Lidoderm) 1 patch QHS TD Last administered on 01/22/19 21:26; Admin Dose 1 PATCH; Start 01/18/19 at 21:00 Celecoxib (Celebrex) 100 mg BID PO Last administered on 01/27/19 08:44; Admin Dose 100 MG; Start 01/23/19 at 12:00 OZZIE SOLOMON NP January 27, 2019 14:23
[2019-01-27 15:22] VITALS: BP 115/55; PULSE 76; RESP 18
[2019-01-27 20:10] VITALS: BP 107/52; PULSE 85; RESP 18
[2019-01-27] MEDS: LIDOCAINE 5% PATCH TD SCH (21:00)
[2019-01-28] MEDS: PANTOPRAZOLE (EC) 40 MG TAB PO SCH (06:11)
[2019-01-28] MEDS: LEVOTHYROXINE 100 MCG TAB PO SCH (06:11)
[2019-01-28 08:30] VITALS: BP 124/59; PULSE 82; RESP 18
[2019-01-28] MEDS: FLUCONAZOLE 100 MG TAB PO SCH (09:20)
[2019-01-28] MEDS: CHOLECALCIFEROL 1,000 UNIT TAB PO SCH (09:20)
[2019-01-28] MEDS: METHOCARBAMOL 750 MG TAB PO SCH ×3 (09:20→20:56)
[2019-01-28] MEDS: BUPROPION (XL) 150 MG TAB PO SCH (09:20)
[2019-01-28] MEDS: ASPIRIN (EC) 81 MG TAB PO SCH (09:21)
[2019-01-28] MEDS: VITAMIN B COMPLEX/VIT C CAP PO SCH (09:21)
[2019-01-28] MEDS: FISH OIL 1,000 MG CAP PO SCH (09:21)
[2019-01-28] MEDS: GABAPENTIN 300 MG CAP PO SCH ×3 (09:21→20:56)
[2019-01-28] MEDS: ASCORBIC ACID 500 MG TAB PO SCH ×2 (09:21→20:56)
[2019-01-28] MEDS: CEFEPIME 1GM/50 ML (PMX) 50 ML IVPB SCH ×2 (09:21→21:00)
[2019-01-28] MEDS: CELECOXIB 100 MG CAP PO SCH ×2 (09:21→20:56)
[2019-01-28] MEDS: ZYVOX 600 MG TAB PO SCH ×2 (09:21→20:56)
[2019-01-28] MEDS: DAKINS 0.0125%(1/40) 473 ML SOLUTION TP SCH ×2 (09:22→20:58)
[2019-01-28] MEDS: BALSAM PERU/CASTOR OIL 60 GM TUBE TOP SCH ×2 (09:22→20:58)
[2019-01-28] MEDS: COLLAGENASE 5 GM (UD JAR) TOP SCH ×2 (09:22→20:57)
[2019-01-28] MEDS: NYSTATIN 30 GM POWDER BTL TOP SCH ×2 (09:22→20:58)
[2019-01-28] MEDS: MULTIVITAMINS THERAPEUTIC TAB PO SCH (09:28)
[2019-01-28] MEDS: LISINOPRIL 5 MG TAB PO SCH (09:29)
--- NOTE | 2019-01-28 10:28 | PN ---
Date/Time of Note Date/Time of Note DATE: 01/28/19 TIME: 10:26 Objective Vitals Vital Signs Date Temp Pulse Resp B/P (MAP) Pulse Ox O2 O2 Flow FiO2 Time Delivery Rate 01/28/19 98.7 82 18 124/59 Room Air 08:30 (80) 01/27/19 95 21 21:54 Intake and Output 01/27/19 01/27/19 01/28/19 1515:00 23:00 07:00 IntakeIntake Total 410 ml 290 ml BalanceBalance 410 ml 290 ml Results Result Diagram: 01/28/19 0432 Medications Medications Current Medications Albuterol (Ventolin Hfa) 2 puff Q4H PRN INH WHEEZING AND SOB; Start 12/01/18 at 21:00; Status Hold Ascorbic Acid (Vitamin C) 500 mg BID PO Last administered on 01/28/19 09:21; Admin Dose 500 MG; Start 12/01/18 at 21:00 Bupropion HCl (Wellbutrin Xl) 300 mg DAILY PO Last administered on 01/28/19 09:20; Admin Dose 300 MG; Start 12/02/18 at 09:00 Cholecalciferol (Vitamin D) 1,000 unit DAILY PO Last administered on 01/28/19 09:20; Admin Dose 1,000 UNIT; Start 12/02/18 at 09:00 Diclofenac Sodium (Voltaren 1% Gel) 2 gm TID PRN TP PAIN; Start 12/01/18 at 21:00 Levothyroxine Sodium (Synthroid) 100 mcg BEFORE BREAKFAST PO Last administered on 01/28/19 06:11; Admin Dose 100 MCG; Start 12/02/18 at 07:00 Multivitamins Therapeutic (Theragran) 1 tab DAILY PO Last administered on 01/28/19 09:28; Admin Dose 1 TAB; Start 12/02/18 at 09:00 Vitamin B Complex/ Vitamin C (Berocca) 1 cap DAILY PO Last administered on 01/28/19 09:21; Admin Dose 1 CAP; Start 12/02/18 at 09:00 Fish Oil (Fish Oil) 1,000 mg DAILY PO Last administered on 01/28/19 09:21; Admin Dose 1,000 MG; Start 12/02/18 at 09:00 Docusate Sodium (Colace) 100 mg Q12H PRN PO .CONSTIPATION; Start 12/01/18 at 22:00 Bisacodyl (Dulcolax) 5 mg DAILY PRN PO .CONSTIPATION; Start 12/01/18 at 22:00 Lidocaine (Xylocaine 1% (Mpf)) 30 ml ONCE PRN INJ aspiration ; Start 12/04/18 at 17:30 IV Flush (NS 3 ml) 3 ml PER PROTOCOL IV ; Start 12/05/18 at 21:30 Oxycodone HCl (Roxicodone) 15 mg Q4H PRN PO .PAIN Last administered on 12/30/18 13:42; Admin Dose 5 MG; Start 12/05/18 at 21:30 Oxycodone HCl (Roxicodone) 10 mg Q4H PRN PO .PAIN Last administered on 01/16/19 02:22; Admin Dose 10 MG; Start 12/05/18 at 21:30 Oxycodone HCl (Roxicodone) 5 mg Q4H PRN PO .PAIN Last administered on 01/24/19 01:47; Admin Dose 5 MG; Start 12/05/18 at 21:30 Hydromorphone HCl (Dilaudid) 1 mg Q3H PRN IV .BREAKTHROUGH PAIN Last administered on 12/06/18 06:58; Admin Dose 1 MG; Start 12/05/18 at 21:30 Ondansetron HCl (Zofran Inj) 4 mg Q4H PRN IV NAUSEA/VOMITING; Start 12/06/18 at 21:30 Pantoprazole (Protonix Tab) 40 mg DAILY@06 PO Last administered on 01/28/19 06:11; Admin Dose 40 MG; Start 12/07/18 at 06:00 Simethicone (Mylicon) 80 mg TID PRN PO .GAS; Start 12/05/18 at 21:30 Senna/Docusate Sodium (Senokot-S) 2 tab BID PRN PO .CONSTIPATION Last administered on 12/06/18 08:54; Admin Dose 2 TAB; Start 12/05/18 at 21:30 Magnesium Hydroxide (Milk Of Mag) 30 ml HS PRN PO .CONSTIPATION; Start 12/05/18 at 21:30 Bisacodyl (Dulcolax Supp) 10 mg DAILY PRN DC .CONSTIPATION; Start 12/05/18 at 21:30 Sodium Biphosphate/ Sodium Phosphate (Fleet Enema) 133 ml DAILY PRN DC .CONSTIPATION; Start 12/05/18 at 21:30 Diphenhydramine HCl (Benadryl) 25 mg Q4H PRN IV .ITCHING; Start 12/05/18 at 21:30 Naloxone HCl (Narcan) 0.2 mg Q2M PRN IV .RESP RATE; Start 12/05/18 at 21:30 Bethanechol Chloride (Urecholine) 25 mg URINARY CATH D/C PRN PO UNABLE TO VOID; Start 12/05/18 at 21:30 Aspirin (Halfprin) 81 mg BID PO Last administered on 01/28/19 09:21; Admin Dose 81 MG; Start 12/06/18 at 09:00 Nystatin (Nystatin Powder) 1 applic BID TOP Last administered on 01/28/19 09:22; Admin Dose 1 APPLIC; Start 12/12/18 at 21:00 Albuterol (Proventil 0.083% (Neb)) 2.5 mg Q2H RESP THERAPY PRN HHN SHORTNESS OF BREATH; Start 12/15/18 at 12:00 Gabapentin (Neurontin) 300 mg TID PO Last administered on 01/28/19 09:21; Admin Dose 300 MG; Start 12/22/18 at 13:00 Methocarbamol (Robaxin) 750 mg TID PO Last administered on 01/28/19 09:20; Admin Dose 750 MG; Start 12/28/18 at 13:00 Linezolid (Zyvox) 600 mg BID PO Last administered on 01/28/19 09:21; Admin Dose 600 MG; Start 12/28/18 at 15:00 Acetaminophen (Tylenol Tab) 1,000 mg Q6 PRN PO pain Last administered on 01/27/19 04:57; Admin Dose 1,000 MG; Start 12/28/18 at 21:30 Alteplase, Recombinant (Cathflo (Activase)) 2 mg MAY REPEAT X1 PRN CATHETER IF CATHETER REMAINS OCCULUDED Last administered on 12/29/18 16:53; Admin Dose 2 MG; Start 12/29/18 at 16:00 Sodium Hypochlorite (Dakins Diluted ()) 1 applic BID TP Last administered on 01/28/19 09:22; Admin Dose 1 APPLIC; Start 01/06/19 at 12:03 Cefepime HCl 50 ml @ 100 mls/hr Q12 IVPB Last administered on 01/28/19 09:21; Admin Dose 100 MLS/HR; Start 01/07/19 at 21:00 Collagenase (Santyl) 1 applic BID TOP Last administered on 01/28/19 09:22; Admin Dose 1 APPLIC; Start 01/07/19 at 21:00 Fluconazole (Diflucan) 100 mg DAILY PO Last administered on 01/28/19 09:20; Admin Dose 100 MG; Start 01/13/19 at 11:30 Lisinopril (Zestril) 2.5 mg DAILY PO Last administered on 01/28/19 09:29; Admin Dose 2.5 MG; Start 01/17/19 at 09:00 Polyethylene Glycol (Miralax) 17 gm DAILY PRN PO constipation; Start 01/18/19 at 12:30 Senna (Senokot) 1 tab BID PRN PO constipation; Start 01/18/19 at 12:30 Lidocaine (Lidoderm) 1 patch QHS TD Last administered on 01/22/19 21:26; Admin Dose 1 PATCH; Start 01/18/19 at 21:00 Celecoxib (Celebrex) 100 mg BID PO Last administered on 01/28/19 09:21; Admin Dose 100 MG; Start 01/23/19 at 12:00 VTE Prophylaxis Risk score (from Nsg)>0 risk: 4 SCD applied (from Ns): Yes Lines/Catheters IV Catheter Type: Schaeffer in Place: No Assessment/Plan Hospital Course Subjective no acute overnight events. Objective Physical exam General: Patient is laying in bed and answers questions appropriately Mentation: Patient is alert and oriented 4, Head: Normocephalic atraumatic Eyes: EOMI, pupils reactive to light Neck: Supple, nontender, midline Respiratory: Clear to auscultation bilaterally Cardiovascular: regular rate, no obvious murmurs Gastrointestinal: non-tender to palpation, bowel sounds heard. Neurological: Moves all extremities spontaneously Skin: decubitus ulcer, knee surgical site CDI Assessment/Plan 1. Sepsis secondary to decubitus ulcers and osteomyelitis-resolving - Patient remains afebrile 2. Septic R knee joint s/p I&D on 12/05/18- resolved - Ortho consultation appreciated - pain control 3. Left leg muscle spasm- improved - Robaxin TID , change to prn at SNF 4. Sacral wound with OM s/p debridement - General surgery consultation appreciated and cleared for d/c from their standpoint. Continue antibiotics and local wound care. Can follow up at wound clinic as outpatient - Bone biopsy shows OM, continue IV and po antibiotics until 02/19/2019 5. Chronic spinal disease - h/o significant stenosis of her spine. Lumbar spine and thoracic spine CT show signs of stenosis though no acute fractures. - continue lidocaine patch 6. osteoarthritis - pain control 7. urinary tract infection- treated 8. Strep Bacteremia-resolved 9. History of falls - Continue PT 10. Disposition - hgb slightly lower today, repeat pending, SNF found. DC after hgb issues figured out. HARJEET PATINO January 28, 2019 10:28
--- NOTE | 2019-01-28 10:42 | PN ---
Date/Time of Note Date/Time of Note DATE: 01/28/19 TIME: 10:41 Assessment/Plan Lines/Catheters IV Catheter Type (from Nrs): Schaeffer in Place (from Nrs): No Assessment/Plan Chief Complaint/Hosp Course 1. Sacral wound: + Wound cultures; status post repeat debridement 01/07/2019; bone pathology noted; soft bone noted during debridement> + osteo; repeat wound cultures noted> now off isolation. s/p abx per ID -Repeat debridement as needed > can follow with Dr. Mcmanus at wound care clinic -Continue local care w santyl -frequent turning and off-loading -low air loss mattress -vitamin c -short term zinc -optimize nutrition -dc ok from surgical standpoint> pending SNF placement 2. Bacteremia: Repeat blood culture: NG 3.Septic right knee joint status post I&D: -Per Ortho 4. Spine disease: Status post spinal surgeries -Supportive 5.UTI s/p abx per sensitivity -frequent bladder emptying/cath care 6. Osteoarthritis: -Medical management Thank you, Subjective 24 Hr Interval Summary No acute events. No fevers, chills, sob, congested cough, cp, palpitations, ruano, dizziness, n/v/d/dysuria, wound drainage or odor. Placement pending. Exam/Review of Systems Vital Signs Vitals Vital Signs Date Temp Pulse Resp B/P (MAP) Pulse Ox O2 O2 Flow FiO2 Time Delivery Rate 01/28/19 98.7 82 18 124/59 Room Air 08:30 (80) 01/27/19 95 21 21:54 Intake and Output 01/27/19 01/27/19 01/28/19 1515:00 23:00 07:00 IntakeIntake Total 410 ml 290 ml BalanceBalance 410 ml 290 ml Exam Free Text/Dictation Constitutional: alert, oriented Psych: nl mood/affect; No anxiety Head: normocephalic, atraumatic Eyes: nl conjunctiva, EOMI, nl lids, nl sclera ENMT: nl external ears & nose, nl lips & teeth, nl nasal mucosa & septum, mucosa pink and moist Neck: supple, non-tender; No jvd Respiratory: normal air movement; No congested cough Cardiovascular: regular rate and rhythm, nl pulses; No edema Gastrointestinal: soft, non-tender; No distended Genitourinary - Female: nl external genitalia Musculoskeletal: nl extremities to inspection; No nl gait and stance Extremities: normal pulses Neurological: nl mental status, nl speech, nl strength Skin: nl turgor, other (Sacrum: Minimal Slough, min drainage, no odor, minimal periwound erythema-much improved) Lymph: nl lymph nodes Results Result Diagram: 01/28/19 0432 GABRIELA MCMANUS MD January 28, 2019 10:42
--- NOTE | 2019-01-28 11:52 | DS ---
Date/Time of Note Date/Time of Note DATE: 01/28/19 TIME: 11:51 Discharge Summary Admission/Discharge Info Admit Date/Time Dec 01, 2018 at 19:24 Discharge Date/Time Discharge Diagnosis 1. Sepsis secondary to decubitus ulcers and osteomyelitis-resolved 2. Septic R knee joint s/p I&D on 12/05/18- resolved 3. Left leg muscle spasm 4. Sacral wound with OM s/p debridement 5. Chronic spinal disease 6. osteoarthritis 7. urinary tract infection- treated 8. Strep Bacteremia-resolved 9. History of falls Patient Condition: Stable Hospital Course Patient is a female with a past medical history significant for chronic spinal disease, osteoarthritis also with decubitus ulcers who presented to [facility] for worsening right knee pain. Patient was found to have an acute infection in her right knee and was diagnosed with a septic right knee joint. Patient had a long history of multiple surgeries including total right knee arthroplasty in the past. Patient was seen by orthopedic surgeon who performed incision and drainage with poly-exchange and patient also seen by infectious disease. Patient had an extended stay due to inability to find a appropriate [facility] facility and was continued on IV antibiotics during this time. Patient had a slow improvement throughout this time as well. Patient will need to follow-up with Dr. Akbar Glover 1 to 2 weeks after discharge. On a separate note, patient had a decubitus ulcer which found to also be infected and diagnosed with osteomyelitis after surgeon perform debridement. Patient was continued on appropriate antibiotics from the infectious disease standpoint and will currently need cefepime and oral Zyvox until February 19, 2019. Infectious disease recommends continuing to monitor patient's white blood cell count as Zyvox does have a possible side effect of lowering white blood cell count. ID recommends a switch to daptomycin from Zyvox if WBC count decreases consistently. Patient was initially started on f luconazole however at time of discharge infectious disease recommended discontinuing, as she obtained a little over 2 weeks worth and the infection was likely superficial per infectious disease. Patient questions were answered and medications were addressed. Of note patient does have a likely iron deficiency anemia and will be started on a supplementation of iron, it was also recommended to the patient to follow-up with cream tester in the outpatient setting. Of note patient also was treated for a strep bacteremia and UTI during this hospitalization and also has a history of chronic spinal disease. Patient will also need to follow-up with Dr. Fernandez Nation at the wound care center for continued wound care for her sacral decubitus ulcer which is healing. Discharge diagnosis Sepsis secondary to decubitus ulcers and osteomyelitis, resolving Septic right knee joint, resolved Sacral decubitus wound with osteomyelitis, resolving Chronic spinal disease Muscle spasms, resolving Osteoarthritis Urinary tract infection, resolved Strep bacteremia, resolved History of falls Home Meds Active Scripts Oxycodone Hcl* (IR) (Roxicodone*) 5 Mg Tab, 5 MG PO Q4H PRN for .PAIN for 10 Days, #20 TAB Prov:BALTAZAR BARAJAS MD 01/22/19 Methocarbamol* (Methocarbamol*) 750 Mg Tablet, 750 MG PO TID for 30 Days, #90 TAB Prov:BALTAZAR BARAJAS MD 01/22/19 Fluconazole* (Diflucan*) 100 Mg Tablet, 100 MG PO DAILY for 30 Days, #30 TAB Prov:BALTAZAR BARAJAS MD 01/22/19 Linezolid (Linezolid) 600 Mg Tablet, 600 MG PO BID for 30 Days, #60 TAB Prov:BALTAZAR BARAJAS MD 01/22/19 Lisinopril* (Lisinopril*) 2.5 Mg Tablet, 2.5 MG PO DAILY for 30 Days, #30 TAB Prov:BALTAZAR BARAJAS MD 01/22/19 Reported Medications Diclofenac Sodium* (Voltaren* Gel) 1% -100 Gm Gel, 2 GM TOP TID PRN for PAIN, #1 TUB apply to lower back 12/01/18 Cholecalciferol* (Vitamin D3*) 1,000 Unit Tablet, 1000 UNIT PO DAILY, TAB 12/01/18 Ascorbic Acid* (Vitamin C*) 500 Mg Capsule.sa, 500 MG PO BID, CAP 12/01/18 Sennosides* (Senna Lax*) 8.6 Mg Tablet, 1 TAB PO BID, TAB 12/01/18 Albuterol Sulfate* (Proair HFA*) 8.5 Gm Hfa.aer.ad, 2 PUFF INH Q4H PRN for WHEEZING AND SOB, #1 INHALER 12/01/18 Polyethylene Glycol* (Miralax*) 17 Gm Powd.pack, 17 GM PO DAILY, #30 PACKET HOLD FOR LOOSE STOOL MIX WITH 4-8oz of fluids 12/01/18 Multivitamins* (Theragran*) 1 Tab Tab, 1 TAB PO DAILY, TAB 12/01/18 Levothyroxine Sodium* (Levoxyl*) 100 Mcg Tablet, 100 MCG PO BEFORE BREAKFAST, #30 TAB 12/01/18 [place]-3/Dha/Epa/Fish Oil (FISH OIL 1,000 MG SOFTGEL) 1 Each Capsule, 1 EACH PO DAILY, CAP 12/01/18 Docusate Sodium* (Colace*) 100 Mg Capsule, 100 MG PO BID, #60 CAP 12/01/18 Calcium Carbonate/Vitamin D3 (OYSTER SHELL 500 MG + VIT D TB) 1 Each Tablet, 1 EACH PO BID, TAB 12/01/18 Bupropion Hcl* (Bupropion XL*) 300 Mg Tab.sr.24h, 300 MG PO DAILY, TAB.SA 12/01/18 Na Phos,M-B/Na Phos,Di-Ba (ENEMA [id number]) 133 Ml Enema, 133 ML RC EVERY 3RD DAY PRN for CONSTIPATION, ENEMA 12/01/18 Bisacodyl (Dulcolax) 10 Mg Supp.rect, 10 MG RC PRN PRN for CONSTIPATION, SUPP.RECT 12/01/18 Magnesium Hydroxide* (Milk Of Magnesia*) 400 Mg/5 Ml Oral.susp, 30 ML PO DAILY PRN for CONSTIPATION, ML 12/01/18 Vitamin B Complex* (Vitamin B Complex*) 1 Each Tablet, 1 TAB PO DAILY, TAB 12/01/18 Acetaminophen* (Acetaminophen*) 650 Mg Tablet, 650 MG PO Q4 PRN for MODERATE PAIN LEVEL 4-6, #30 TAB 12/01/18 Discontinued Reported Medications Budesonide-Formoterol Fumarate* (Symbicort*) 160-4.5 Hfa.aer.ad, 2 PUFF INHALATION BID, #1 EACH 12/01/18 Hydrocodone/Acetaminophen ([place] 5-325 Tablet) 1 Each Tablet, 1 EACH PO Q6 PRN for MOD PAIN 4-7, TAB 12/01/18 Lisinopril* (Lisinopril*) 5 Mg Tablet, 5 MG PO DAILY, #30 TAB HOLD FOR SBP<110 12/01/18 Follow-up Plan 1. Follow up with your primary care physician in 1-2 weeks 2. You will need to continue on antibiotics until 02/19/19 3. If you are experiencing any issues with your right knee, please call Dr. Glover's office 4. Take all other medications as prescribed 5. Wound care will be continued at the skilled facility 6. If experiencing any concerning symptoms, please go to your nearest emergency department Primary Care Provider Not On Staff Doctor Time spent on discharge: > 30 minutes Pending Labs Laboratory Tests Test 01/27/19 12:09 01/28/19 04:32 01/28/19 11:14 White Blood Count 4.0 5.2 10^3/ul (4.8-10.8) 10^3/ul (4.8-10.8) Red Blood Count 3.19 2.95 10^6/ul (4.20-5.40) 10^6/ul (4.20-5.40 ) Hemoglobin 8.5 7.9 8.6 g/dl (12.0-16.0) g/dl (12.0-16.0) g/dl (12.0-16.0) Hematocrit 27.6 % (37.0-47.0) 25.5 % (37.0-47.0) 28.1 % (37.0-47.0) Mean Corpuscular 86.5 86.4 Volume fl (82.0-101.0) fl (82.0-101.0) Mean Corpuscular 26.6 pg (29.0-33.0) 26.8 Hemoglobin pg (29.0-33.0) Mean Corpuscular 30.8 31.0 Hemoglobin Concent g/dl (32.0-37.0) g/dl (32.0-37.0) Red Cell 21.0 % (11.5-14.5) 21.2 % (11.5-14.5) Distribution Width Platelet Count 182 198 10^3/UL (140-415) 10^3/UL (140-415) Mean Platelet 9.5 fl (7.4-10.4) 8.9 fl (7.4-10.4) Volume Immature 0.300 0.200 Granulocytes % % (0.001-0.429) % (0.001-0.429) Neutrophils % % (39.0-77.0) 52.4 % (39.0-77.0) Segmented 55 % (39-77) Neutrophils % (Manual) Band Neutrophils % 9 % (0-4) (Manual) Lymphocytes % % (15.0-51.0) 25.0 % (15.0-51.0) Lymphocytes % 21 % (15-51) (Manual) Monocytes % % (0.0-11.0) 15.6 % (0.0-11.0) Monocytes % 9 % (0-11) (Manual) Eosinophils % % (0.0-7.0) 6.2 % (0.0-7.0) Eosinophils % 4 % (0-7) (Manual) Basophils % % (0.0-2.0) 0.6 % (0.0-2.0) Basophils % 2 % (0-2) (Manual) Nucleated Red Blood 0.0 0.0 Cells % /100WBC (0.0-0.0) /100WBC (0.0-0.0) Immature 0.010 0.010 Granulocytes # 10^3/ul (0.0-0.031) 10^3/ul (0.0-0.031 ) Neutrophils # 10^3/ul (1.6-7.5) 2.7 10^3/ul (1.6-7.5) Neutrophils # 2.2 (Manual) 10^3/ul (1.6-7.5) Band Neutrophils # 0.3 10^3/ul (0.0-0.6) Lymphocytes 0.8 (Manual) 10^3/ul (0.8-2.9) Lymphocytes # 10^3/ul (0.8-2.9) 1.3 10^3/ul (0.8-2.9) Monocytes # 10^3/ul (0.3-0.9) 0.8 10^3/ul (0.3-0.9) Monocytes # 0.3 (Manual) 10^3/ul (0.3-0.9) Eosinophils # 10^3/ul (0.0-0.5) 0.3 10^3/ul (0.0-0.5) Basophils # 10^3/ul (0.0-0.1) 0.0 10^3/ul (0.0-0.1) Basophils # 0.0 (Manual) 10^3/ul (0.0-0.0) Nucleated Red Blood 10^3/ul (0.0-0.0) 0.0 Cells # 10^3/ul (0.0-0.0) Platelet Estimate NORMAL Giant Platelets 1 % (0-0) Polychromasia 3+ (0-0) Hypochromasia 2+ (0-0) Poikilocytosis 1+ (0-0) Anisocytosis 1+ (0-0) Microcytosis 1+ (0-0) Target Cells 1+ (0-0) HARJEET PATINO January 28, 2019 11:52
[2019-01-28] MEDS ORDERED: FER325 PO (11:56)
--- NOTE | 2019-01-28 12:51 | CONS ---
Assessment/Plan Assessment/Plan Hospital Course (Demo Recall) No events overnight Antimicrobials: Cefepime, Zyvox fluconazole Microbiology: Blood culture on admission grew strep, urine culture grew E. coli, MRSA swab negative, repeat blood cultures negative. Sacral wound cx + VRE/Proteus/Strep/Marita 2D echo revealed no vegetations Physical examination: This is well-developed well-nourished elderly woman who is alert in no distress. Head atraumatic normocephalic neck is supple. Chest rise symmetrical breath sounds clear. Heart: S1-S2. Abdomen soft, bowel tones present. Extremities wnl Assessment: 1. 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 Status post sepsis 3. S/p streptococcal bacteremia 2 to #4 4. 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 S/p urinary tract infection 6. History of left total knee replacement 7. History of multilevel discectomy and posterior fusion from L1-L3, please see CT in the chart Plan: Remains stable, CBC noted, dc Diflucan, continue on current abx for 6 weeks to treat OM==> last day 02/19/19 Consultation Date/Type/Reason Admit Date/Time Dec 01, 2018 at 19:24 Initial Consult Date Type of Consult id Requesting Provider: TERESA COSBY Date/Time of Note DATE: 01/28/19 TIME: 12:51 Exam/Review of Systems Exam Vitals Vital Signs Date Temp Pulse Resp B/P (MAP) Pulse Ox O2 O2 Flow FiO2 Time Delivery Rate 01/28/19 98.7 82 18 124/59 Room Air 08:30 (80) 01/27/19 95 21 21:54 Intake and Output 01/27/19 01/27/19 01/28/19 1515:00 23:00 07:00 IntakeIntake Total 410 ml 290 ml BalanceBalance 410 ml 290 ml Results Result Diagram: 01/28/19 1114 Results 24hrs Laboratory Tests Test 01/28/19 04:32 01/28/19 11:14 White Blood Count 5.2 # Red Blood Count 2.95 L Hemoglobin 7.9 L 8.6 L Hematocrit 25.5 L 28.1 L Mean Corpuscular Volume 86.4 Mean Corpuscular Hemoglobin 26.8 L Mean Corpuscular Hemoglobin Concent 31.0 L Red Cell Distribution Width 21.2 H Platelet Count 198 Mean Platelet Volume 8.9 Immature Granulocytes % 0.200 Neutrophils % 52.4 Lymphocytes % 25.0 Monocytes % 15.6 H Eosinophils % 6.2 Basophils % 0.6 Nucleated Red Blood Cells % 0.0 Immature Granulocytes # 0.010 Neutrophils # 2.7 Lymphocytes # 1.3 Monocytes # 0.8 Eosinophils # 0.3 Basophils # 0.0 Nucleated Red Blood Cells # 0.0 Medications Medication Current Medications Albuterol (Ventolin Hfa) 2 puff Q4H PRN INH WHEEZING AND SOB; Start 12/01/18 at 21:00; Status Hold Ascorbic Acid (Vitamin C) 500 mg BID PO Last administered on 01/28/19 09:21; Admin Dose 500 MG; Start 12/01/18 at 21:00 Bupropion HCl (Wellbutrin Xl) 300 mg DAILY PO Last administered on 01/28/19 09:20; Admin Dose 300 MG; Start 12/02/18 at 09:00 Cholecalciferol (Vitamin D) 1,000 unit DAILY PO Last administered on 01/28/19 09:20; Admin Dose 1,000 UNIT; Start 12/02/18 at 09:00 Diclofenac Sodium (Voltaren 1% Gel) 2 gm TID PRN TP PAIN; Start 12/01/18 at 21:00 Levothyroxine Sodium (Synthroid) 100 mcg BEFORE BREAKFAST PO Last administered on 01/28/19 06:11; Admin Dose 100 MCG; Start 12/02/18 at 07:00 Multivitamins Therapeutic (Theragran) 1 tab DAILY PO Last administered on 01/28/19 09:28; Admin Dose 1 TAB; Start 12/02/18 at 09:00 Vitamin B Complex/ Vitamin C (Berocca) 1 cap DAILY PO Last administered on 01/28/19 09:21; Admin Dose 1 CAP; Start 12/02/18 at 09:00 Fish Oil (Fish Oil) 1,000 mg DAILY PO Last administered on 01/28/19 09:21; Admin Dose 1,000 MG; Start 12/02/18 at 09:00 Docusate Sodium (Colace) 100 mg Q12H PRN PO .CONSTIPATION; Start 12/01/18 at 22:00 Bisacodyl (Dulcolax) 5 mg DAILY PRN PO .CONSTIPATION; Start 12/01/18 at 22:00 Lidocaine (Xylocaine 1% (Mpf)) 30 ml ONCE PRN INJ aspiration ; Start 12/04/18 at 17:30 IV Flush (NS 3 ml) 3 ml PER PROTOCOL IV ; Start 12/05/18 at 21:30 Oxycodone HCl (Roxicodone) 15 mg Q4H PRN PO .PAIN Last administered on 12/30/18at 13:42; Admin Dose 5 MG; Start 12/05/18 at 21:30 Oxycodone HCl (Roxicodone) 10 mg Q4H PRN PO .PAIN Last administered on 01/16/19 02:22; Admin Dose 10 MG; Start 12/05/18 at 21:30 Oxycodone HCl (Roxicodone) 5 mg Q4H PRN PO .PAIN Last administered on 01/24/19at 01:47; Admin Dose 5 MG; Start 12/05/18 at 21:30 Hydromorphone HCl (Dilaudid) 1 mg Q3H PRN IV .BREAKTHROUGH PAIN Last administered on 12/06/18at 06:58; Admin Dose 1 MG; Start 12/05/18 at 21:30 Ondansetron HCl (Zofran Inj) 4 mg Q4H PRN IV NAUSEA/VOMITING; Start 12/06/18 at 21:30 Pantoprazole (Protonix Tab) 40 mg DAILY@06 PO Last administered on 01/28/19at 06:11; Admin Dose 40 MG; Start 12/07/18 at 06:00 Simethicone (Mylicon) 80 mg TID PRN PO .GAS; Start 12/05/18 at 21:30 Senna/Docusate Sodium (Senokot-S) 2 tab BID PRN PO .CONSTIPATION Last administered on 12/06/18at 08:54; Admin Dose 2 TAB; Start 12/05/18 at 21:30 Magnesium Hydroxide (Milk Of Mag) 30 ml HS PRN PO .CONSTIPATION; Start 12/05/18 at 21:30 Bisacodyl (Dulcolax Supp) 10 mg DAILY PRN [place] .CONSTIPATION; Start 12/05/18 at 21:30 Sodium Biphosphate/ Sodium Phosphate (Fleet Enema) 133 ml DAILY PRN [place] .CONSTIPATION; Start 12/05/18 at 21:30 Diphenhydramine HCl (Benadryl) 25 mg Q4H PRN IV .ITCHING; Start 12/05/18 at 21:30 Naloxone HCl (Narcan) 0.2 mg Q2M PRN IV .RESP RATE; Start 12/05/18 at 21:30 Bethanechol Chloride (Urecholine) 25 mg URINARY CATH D/C PRN PO UNABLE TO VOID; Start 12/05/18 at 21:30 Nystatin (Nystatin Powder) 1 applic BID TOP Last administered on 01/28/19 09:22; Admin Dose 1 APPLIC; Start 12/12/18 at 21:00 Albuterol (Proventil 0.083% (Neb)) 2.5 mg Q2H RESP THERAPY PRN HHN SHORTNESS OF BREATH; Start 12/15/18 at 12:00 Gabapentin (Neurontin) 300 mg TID PO Last administered on 01/28/19 09:21; Admin Dose 300 MG; Start 12/22/18 at 13:00 Methocarbamol (Robaxin) 750 mg TID PO Last administered on 01/28/19 09:20; Admin Dose 750 MG; Start 12/28/18 at 13:00 Linezolid (Zyvox) 600 mg BID PO Last administered on 01/28/19 09:21; Admin Dose 600 MG; Start 12/28/18 at 15:00 Acetaminophen (Tylenol Tab) 1,000 mg Q6 PRN PO pain Last administered on 01/09 04:57; Admin Dose 1,000 MG; Start 12/28/18 at 21:30 Alteplase, Recombinant (Cathflo (Activase)) 2 mg MAY REPEAT X1 PRN CATHETER IF CATHETER REMAINS OCCULUDED Last administered on 12/29/18 16:53; Admin Dose 2 MG; Start 12/29/18 at 16:00 Sodium Hypochlorite (Dakins Diluted ()) 1 applic BID TP Last administered on 01/28/19 09:22; Admin Dose 1 APPLIC; Start 01/06/19 at 12:03 Cefepime HCl 50 ml @ 100 mls/hr Q12 IVPB Last administered on 01/28/19 09:21; Admin Dose 100 MLS/HR; Start 01/07/19 at 21:00 Collagenase (Santyl) 1 applic BID TOP Last administered on 01/28/19at 09:22; Admin Dose 1 APPLIC; Start 01/07/19 at 21:00 Lisinopril (Zestril) 2.5 mg DAILY PO Last administered on 01/28/19 09:29; Admin Dose 2.5 MG; Start 01/17/19 at 09:00 Polyethylene Glycol (Miralax) 17 gm DAILY PRN PO constipation; Start 01/18/19 at 12:30 Senna (Senokot) 1 tab BID PRN PO constipation; Start 01/18/19 at 12:30 Lidocaine (Lidoderm) 1 patch QHS TD Last administered on 01/22/19at 21:26; Admin Dose 1 PATCH; Start 01/18/19 at 21:00 Celecoxib (Celebrex) 100 mg BID PO Last administered on 01/28/19 09:21; Admin Dose 100 MG; Start 01/23/19 at 12:00 Ferrous Sulfate (Ferrous Sulfate (Ec)) 325 mg DAILY PO ; Start 01/29/19 at 09:00 Aspirin (Halfprin) 81 mg DAILY PO ; Start 01/29/19 at 09:00 OZZIE SOLOMON NP January 28, 2019 12:51
[2019-01-28 19:55] VITALS: BP 138/61; PULSE 78; RESP 18
[2019-01-28] MEDS: LIDOCAINE 5% PATCH TD SCH (20:59)
[2019-01-29 02:25] VITALS: BP 119/54; PULSE 79; RESP 18
[2019-01-29] MEDS: LEVOTHYROXINE 100 MCG TAB PO SCH (05:45)
[2019-01-29] MEDS: PANTOPRAZOLE (EC) 40 MG TAB PO SCH (05:45)
[2019-01-29 08:06] VITALS: BP 120/60; PULSE 80; RESP 18
[2019-01-29] MEDS: LISINOPRIL 5 MG TAB PO SCH (09:00)
[2019-01-29] MEDS: NYSTATIN 30 GM POWDER BTL TOP SCH ×2 (09:00→21:31)
[2019-01-29] MEDS: METHOCARBAMOL 750 MG TAB PO SCH ×2 (09:24→13:08)
[2019-01-29] MEDS: GABAPENTIN 300 MG CAP PO SCH ×3 (09:25→21:23)
[2019-01-29] MEDS: BUPROPION (XL) 150 MG TAB PO SCH (09:25)
[2019-01-29] MEDS: ZYVOX 600 MG TAB PO SCH ×2 (09:26→21:23)
[2019-01-29] MEDS: MULTIVITAMINS THERAPEUTIC TAB PO SCH (09:26)
[2019-01-29] MEDS: ASCORBIC ACID 500 MG TAB PO SCH ×2 (09:26→21:23)
[2019-01-29] MEDS: FERROUS SULFATE (EC) 325 MG TAB PO SCH (09:26)
[2019-01-29] MEDS: CHOLECALCIFEROL 1,000 UNIT TAB PO SCH (09:27)
[2019-01-29] MEDS: CELECOXIB 100 MG CAP PO SCH ×2 (09:27→21:23)
[2019-01-29] MEDS: FISH OIL 1,000 MG CAP PO SCH (09:27)
[2019-01-29] MEDS: VITAMIN B COMPLEX/VIT C CAP PO SCH (09:27)
[2019-01-29] MEDS: ASPIRIN (EC) 81 MG TAB PO SCH (09:29)
[2019-01-29] MEDS: CEFEPIME 1GM/50 ML (PMX) 50 ML IVPB SCH ×2 (09:29→21:23)
[2019-01-29] MEDS: COLLAGENASE 5 GM (UD JAR) TOP SCH ×2 (11:47→21:31)
[2019-01-29] MEDS: DAKINS 0.0125%(1/40) 473 ML SOLUTION TP SCH ×2 (11:47→21:30)
[2019-01-29] MEDS: BALSAM PERU/CASTOR OIL 60 GM TUBE TOP SCH ×2 (11:48→21:30)
--- NOTE | 2019-01-29 13:58 | CONS ---
Assessment/Plan Assessment/Plan Hospital Course (Demo Recall) No events overnight alert, feels good Antimicrobials: Cefepime, Zyvox Microbiology: Blood culture on admission grew strep, urine culture grew E. coli, MRSA swab negative, repeat blood cultures negative. Sacral wound cx + VRE/Proteus/Strep/Marita 2D echo revealed no vegetations Physical examination: This is well-developed well-nourished elderly woman who is alert in no distress. Head atraumatic normocephalic neck is supple. Chest rise symmetrical breath sounds clear. Heart: S1-S2. Abdomen soft, bowel tones present. Extremities wnl Assessment: 1. 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 Status post sepsis 3. S/p streptococcal bacteremia 2 to #4 4. 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 S/p urinary tract infection 6. History of left total knee replacement 7. History of multilevel discectomy and posterior fusion from L1-L3, please see CT in the chart Plan: Remains stable, continue on current abx for 6 weeks to treat OM==> last day 02/19/19 Consultation Date/Type/Reason Admit Date/Time Dec 01, 2018 at 19:24 Initial Consult Date Type of Consult id Requesting Provider: TERESA COSBY Date/Time of Note DATE: 01/29/19 TIME: 13:57 Exam/Review of Systems Exam Vitals Vital Signs Date Temp Pulse Resp B/P (MAP) Pulse Ox O2 O2 Flow FiO2 Time Delivery Rate 01/29/19 98.2 80 18 120/60 92 Room Air 08:06 (80) 01/27/19 21 21:54 Intake and Output 01/28/19 01/28/19 01/29/19 1515:00 23:00 07:00 IntakeIntake Total 890 ml 410 ml 200 ml BalanceBalance 890 ml 410 ml 200 ml Results Result Diagram: 01/29/19 0454 Results 24hrs Laboratory Tests Test 01/29/19 04:55 White Blood Count 4.3 L Red Blood Count 2.91 L Hemoglobin 7.8 L Hematocrit 24.9 L Mean Corpuscular Volume 85.6 Mean Corpuscular Hemoglobin 26.8 L Mean Corpuscular Hemoglobin Concent 31.3 L Red Cell Distribution Width 20.9 H Platelet Count 189 Mean Platelet Volume 9.2 Immature Granulocytes % 0.000 L Neutrophils % 49.5 Lymphocytes % 26.9 Monocytes % 16.1 H Eosinophils % 6.3 Basophils % 1.2 Nucleated Red Blood Cells % 0.0 Immature Granulocytes # 0.000 Neutrophils # 2.1 Lymphocytes # 1.2 Monocytes # 0.7 Eosinophils # 0.3 Basophils # 0.1 Nucleated Red Blood Cells # 0.0 Medications Medication Current Medications Albuterol (Ventolin Hfa) 2 puff Q4H PRN INH WHEEZING AND SOB; Start 12/01/18 at 21:00; Status Hold Ascorbic Acid (Vitamin C) 500 mg BID PO Last administered on 01/29/19 09:26; Admin Dose 500 MG; Start 12/01/18 at 21:00 Bupropion HCl (Wellbutrin Xl) 300 mg DAILY PO Last administered on 01/29/19 09:25; Admin Dose 300 MG; Start 12/02/18 at 09:00 Cholecalciferol (Vitamin D) 1,000 unit DAILY PO Last administered on 01/29/19:27; Admin Dose 1,000 UNIT; Start 12/02/18 at 09:00 Diclofenac Sodium (Voltaren 1% Gel) 2 gm TID PRN TP PAIN; Start 12/01/18 at 21:00 Levothyroxine Sodium (Synthroid) 100 mcg BEFORE BREAKFAST PO Last administered on 01/29/19 05:45; Admin Dose 100 MCG; Start 12/02/18 at 07:00 Multivitamins Therapeutic (Theragran) 1 tab DAILY PO Last administered on 01/29/19 09:26; Admin Dose 1 TAB; Start 12/02/18 at 09:00 Vitamin B Complex/ Vitamin C (Berocca) 1 cap DAILY PO Last administered on 01/29/19 09:27; Admin Dose 1 CAP; Start 12/02/18 at 09:00 Fish Oil (Fish Oil) 1,000 mg DAILY PO Last administered on 01/29/19:27; Admin Dose 1,000 MG; Start 12/02/18 at 09:00 Docusate Sodium (Colace) 100 mg Q12H PRN PO .CONSTIPATION; Start 12/01/18 at 22:00 Bisacodyl (Dulcolax) 5 mg DAILY PRN PO .CONSTIPATION; Start 12/01/18 at 22:00 Lidocaine (Xylocaine 1% (Mpf)) 30 ml ONCE PRN INJ aspiration ; Start 12/04/18 at 17:30 IV Flush (NS 3 ml) 3 ml PER PROTOCOL IV ; Start 12/05/18 at 21:30 Oxycodone HCl (Roxicodone) 15 mg Q4H PRN PO .PAIN Last administered on 12/30/18at 13:42; Admin Dose 5 MG; Start 12/05/18 at 21:30 Oxycodone HCl (Roxicodone) 10 mg Q4H PRN PO .PAIN Last administered on 01/16/19 02:22; Admin Dose 10 MG; Start 12/05/18 at 21:30 Oxycodone HCl (Roxicodone) 5 mg Q4H PRN PO .PAIN Last administered on 01/24/19 01:47; Admin Dose 5 MG; Start 12/05/18 at 21:30 Hydromorphone HCl (Dilaudid) 1 mg Q3H PRN IV .BREAKTHROUGH PAIN Last administered on 12/06/18at 06:58; Admin Dose 1 MG; Start 12/05/18 at 21:30 Ondansetron HCl (Zofran Inj) 4 mg Q4H PRN IV NAUSEA/VOMITING; Start 12/06/18 at 21:30 Pantoprazole (Protonix Tab) 40 mg DAILY@06 PO Last administered on 01/29/19at 05:45; Admin Dose 40 MG; Start 12/07/18 at 06:00 Simethicone (Mylicon) 80 mg TID PRN PO .GAS; Start 12/05/18 at 21:30 Senna/Docusate Sodium (Senokot-S) 2 tab BID PRN PO .CONSTIPATION Last administered on 12/06/18 08:54; Admin Dose 2 TAB; Start 12/05/18 at 21:30 Magnesium Hydroxide (Milk Of Mag) 30 ml HS PRN PO .CONSTIPATION; Start 12/05/18 at 21:30 Bisacodyl (Dulcolax Supp) 10 mg DAILY PRN [place] .CONSTIPATION; Start 12/05/18 at 21:30 Sodium Biphosphate/ Sodium Phosphate (Fleet Enema) 133 ml DAILY PRN [place] .CONSTIPATION; Start 12/05/18 at 21:30 Diphenhydramine HCl (Benadryl) 25 mg Q4H PRN IV .ITCHING; Start 12/05/18 at 21:30 Naloxone HCl (Narcan) 0.2 mg Q2M PRN IV .RESP RATE; Start 12/05/18 at 21:30 Bethanechol Chloride (Urecholine) 25 mg URINARY CATH D/C PRN PO UNABLE TO VOID; Start 12/05/18 at 21:30 Nystatin (Nystatin Powder) 1 applic BID TOP Last administered on 01/28/19 20:58; Admin Dose 1 APPLIC; Start 12/12/18 at 21:00 Albuterol (Proventil 0.083% (Neb)) 2.5 mg Q2H RESP THERAPY PRN HHN SHORTNESS OF BREATH; Start 12/15/18 at 12:00 Gabapentin (Neurontin) 300 mg TID PO Last administered on 01/29/19 13:09; Admin Dose 300 MG; Start 12/22/18 at 13:00 Methocarbamol (Robaxin) 750 mg TID PO Last administered on 01/29/19 13:08; Admin Dose 750 MG; Start 12/28/18 at 13:00 Linezolid (Zyvox) 600 mg BID PO Last administered on 01/29/19 09:26; Admin Dose 600 MG; Start 12/28/18 at 15:00 Acetaminophen (Tylenol Tab) 1,000 mg Q6 PRN PO pain Last administered on 01/27/19 04:57; Admin Dose 1,000 MG; Start 12/28/18 at 21:30 Alteplase, Recombinant (Cathflo (Activase)) 2 mg MAY REPEAT X1 PRN CATHETER IF CATHETER REMAINS OCCULUDED Last administered on 12/29/18 16:53; Admin Dose 2 MG; Start 12/29/18 at 16:00 Sodium Hypochlorite (Dakins Diluted ()) 1 applic BID TP Last administered on 01/29/19 11:47; Admin Dose 1 APPLIC; Start 01/06/19 at 12:03 Cefepime HCl 50 ml @ 100 mls/hr Q12 IVPB Last administered on 01/29/19 09:29; Admin Dose 100 MLS/HR; Start 01/07/19 at 21:00 Collagenase (Santyl) 1 applic BID TOP Last administered on 01/29/19 11:47; Admin Dose 1 APPLIC; Start 01/07/19 at 21:00 Lisinopril (Zestril) 2.5 mg DAILY PO Last administered on 01/28/19 09:29; Admin Dose 2.5 MG; Start 01/17/19 at 09:00 Polyethylene Glycol (Miralax) 17 gm DAILY PRN PO constipation; Start 01/18/19 at 12:30 Senna (Senokot) 1 tab BID PRN PO constipation; Start 01/18/19 at 12:30 Lidocaine (Lidoderm) 1 patch QHS TD Last administered on 01/28/19 20:59; Admin Dose 1 PATCH; Start 01/18/19 at 21:00 Celecoxib (Celebrex) 100 mg BID PO Last administered on 01/29/19 09:27; Admin Dose 100 MG; Start 01/23/19 at 12:00 Ferrous Sulfate (Ferrous Sulfate (Ec)) 325 mg DAILY PO Last administered on 01/29/19 09:26; Admin Dose 325 MG; Start 01/29/19 at 09:00 Aspirin (Halfprin) 81 mg DAILY PO Last administered on 01/29/19 09:29; Admin Dose 81 MG; Start 01/29/19 at 09:00 OZZIE SOLOMON NP January 29, 2019 13:58
--- NOTE | 2019-01-29 14:14 | PN ---
Date/Time of Note Date/Time of Note DATE: 01/29/19 TIME: 14:10 Objective Vitals Vital Signs Date Temp Pulse Resp B/P (MAP) Pulse Ox O2 O2 Flow FiO2 Time Delivery Rate 01/29/19 98.2 80 18 120/60 92 Room Air 08:06 (80) 01/27/19 21 21:54 Intake and Output 01/28/19 01/28/19 01/29/19 1414:59 22:59 06:59 IntakeIntake Total 890 ml 410 ml 200 ml BalanceBalance 890 ml 410 ml 200 ml Results Result Diagram: 01/29/19 0455 Medications Medications Current Medications Albuterol (Ventolin Hfa) 2 puff Q4H PRN INH WHEEZING AND SOB; Start 12/01/18 at 21:00; Status Hold Ascorbic Acid (Vitamin C) 500 mg BID PO Last administered on 01/29/19 09:26; Admin Dose 500 MG; Start 12/01/18 at 21:00 Bupropion HCl (Wellbutrin Xl) 300 mg DAILY PO Last administered on 01/29/19 09:25; Admin Dose 300 MG; Start 12/02/18 at 09:00 Cholecalciferol (Vitamin D) 1,000 unit DAILY PO Last administered on 01/29/19 09:27; Admin Dose 1,000 UNIT; Start 12/02/18 at 09:00 Diclofenac Sodium (Voltaren 1% Gel) 2 gm TID PRN TP PAIN; Start 12/01/18 at 21:00 Levothyroxine Sodium (Synthroid) 100 mcg BEFORE BREAKFAST PO Last administered on 01/29/19at 05:45; Admin Dose 100 MCG; Start 12/02/18 at 07:00 Multivitamins Therapeutic (Theragran) 1 tab DAILY PO Last administered on 01/29/19 09:26; Admin Dose 1 TAB; Start 12/02/18 at 09:00 Vitamin B Complex/ Vitamin C (Berocca) 1 cap DAILY PO Last administered on 01/29/19 09:27; Admin Dose 1 CAP; Start 12/02/18 at 09:00 Fish Oil (Fish Oil) 1,000 mg DAILY PO Last administered on 01/29/19 09:27; Admin Dose 1,000 MG; Start 12/02/18 at 09:00 Docusate Sodium (Colace) 100 mg Q12H PRN PO .CONSTIPATION; Start 12/01/18 at 22:00 Bisacodyl (Dulcolax) 5 mg DAILY PRN PO .CONSTIPATION; Start 12/01/18 at 22:00 Lidocaine (Xylocaine 1% (Mpf)) 30 ml ONCE PRN INJ aspiration ; Start 12/04/18 at 17:30 IV Flush (NS 3 ml) 3 ml PER PROTOCOL IV ; Start 12/05/18 at 21:30 Oxycodone HCl (Roxicodone) 15 mg Q4H PRN PO .PAIN Last administered on 12/30/18 13:42; Admin Dose 5 MG; Start 12/05/18 at 21:30 Oxycodone HCl (Roxicodone) 10 mg Q4H PRN PO .PAIN Last administered on 01/16/19 02:22; Admin Dose 10 MG; Start 12/05/18 at 21:30 Oxycodone HCl (Roxicodone) 5 mg Q4H PRN PO .PAIN Last administered on 01/24/19 01:47; Admin Dose 5 MG; Start 12/05/18 at 21:30 Hydromorphone HCl (Dilaudid) 1 mg Q3H PRN IV .BREAKTHROUGH PAIN Last administered on 12/06/18 06:58; Admin Dose 1 MG; Start 12/05/18 at 21:30 Ondansetron HCl (Zofran Inj) 4 mg Q4H PRN IV NAUSEA/VOMITING; Start 12/06/18 at 21:30 Pantoprazole (Protonix Tab) 40 mg DAILY@06 PO Last administered on 01/29/19at 05:45; Admin Dose 40 MG; Start 12/07/18 at 06:00 Simethicone (Mylicon) 80 mg TID PRN PO .GAS; Start 12/05/18 at 21:30 Senna/Docusate Sodium (Senokot-S) 2 tab BID PRN PO .CONSTIPATION Last administe red on 12/06/18 08:54; Admin Dose 2 TAB; Start 12/05/18 at 21:30 Magnesium Hydroxide (Milk Of Mag) 30 ml HS PRN PO .CONSTIPATION; Start 12/05/18 at 21:30 Bisacodyl (Dulcolax Supp) 10 mg DAILY PRN [place] .CONSTIPATION; Start 12/05/18 at 21:30 Sodium Biphosphate/ Sodium Phosphate (Fleet Enema) 133 ml DAILY PRN [place] .CONSTIPATION; Start 12/05/18 at 21:30 Diphenhydramine HCl (Benadryl) 25 mg Q4H PRN IV .ITCHING; Start 12/05/18 at 21:30 Naloxone HCl (Narcan) 0.2 mg Q2M PRN IV .RESP RATE; Start 12/05/18 at 21:30 Bethanechol Chloride (Urecholine) 25 mg URINARY CATH D/C PRN PO UNABLE TO VOID; Start 12/05/18 at 21:30 Nystatin (Nystatin Powder) 1 applic BID TOP Last administered on 01/28/19at 20:58; Admin Dose 1 APPLIC; Start 12/12/18 at 21:00 Albuterol (Proventil 0.083% (Neb)) 2.5 mg Q2H RESP THERAPY PRN HHN SHORTNESS OF BREATH; Start 12/15/18 at 12:00 Gabapentin (Neurontin) 300 mg TID PO Last administered on 01/29/19 13:09; Admin Dose 300 MG; Start 12/22/18 at 13:00 Methocarbamol (Robaxin) 750 mg TID PO Last administered on 01/29/19 13:08; Admin Dose 750 MG; Start 12/28/18 at 13:00 Linezolid (Zyvox) 600 mg BID PO Last administered on 01/29/19 09:26; Admin Dose 600 MG; Start 12/28/18 at 15:00 Acetaminophen (Tylenol Tab) 1,000 mg Q6 PRN PO pain Last administered on 01/27/19 04:57; Admin Dose 1,000 MG; Start 12/28/18 at 21:30 Alteplase, Recombinant (Cathflo (Activase)) 2 mg MAY REPEAT X1 PRN CATHETER IF CATHETER REMAINS OCCULUDED Last administered on 12/29/18 16:53; Admin Dose 2 MG; Start 12/29/18 at 16:00 Sodium Hypochlorite (Dakins Diluted ()) 1 applic BID TP Last administered on 01/29/19 11:47; Admin Dose 1 APPLIC; Start 01/06/19 at 12:03 Cefepime HCl 50 ml @ 100 mls/hr Q12 IVPB Last administered on 01/29/19 09:29; Admin Dose 100 MLS/HR; Start 01/07/19 at 21:00 Collagenase (Santyl) 1 applic BID TOP Last administered on 01/29/19 11:47; Admin Dose 1 APPLIC; Start 01/07/19 at 21:00 Lisinopril (Zestril) 2.5 mg DAILY PO Last administered on 01/28/19 09:29; Ad min Dose 2.5 MG; Start 01/17/19 at 09:00 Polyethylene Glycol (Miralax) 17 gm DAILY PRN PO constipation; Start 01/18/19 at 12:30 Senna (Senokot) 1 tab BID PRN PO constipation; Start 01/18/19 at 12:30 Lidocaine (Lidoderm) 1 patch QHS TD Last administered on 01/28/19 20:59; Admin Dose 1 PATCH; Start 01/18/19 at 21:00 Celecoxib (Celebrex) 100 mg BID PO Last administered on 01/29/19 09:27; Admin Dose 100 MG; Start 01/23/19 at 12:00 Ferrous Sulfate (Ferrous Sulfate (Ec)) 325 mg DAILY PO Last administered on 01/29/19 09:26; Admin Dose 325 MG; Start 01/29/19 at 09:00 Aspirin (Halfprin) 81 mg DAILY PO Last administered on 01/29/19 09:29; Admin Dose 81 MG; Start 01/29/19 at 09:00 VTE Prophylaxis Risk score (from Ns)>0 risk: 9 SCD applied (from Ns): No SCD contraindication: other Lines/Catheters IV Catheter Type: Schaeffer in Place: No Assessment/Plan Hospital Course Subjective no acute overnight events. Patient was denied at SNF that was planned for discharge yesterday Objective Physical exam General: Patient is laying in bed and answers questions appropriately Mentation: Patient is alert and oriented 4, Head: Normocephalic atraumatic Eyes: EOMI, pupils reactive to light Neck: Supple, nontender, midline Respiratory: Clear to auscultation bilaterally Cardiovascular: regular rate, no obvious murmurs Gastrointestinal: non-tender to palpation, bowel sounds heard. Neurological: Moves all extremities spontaneously Skin: decubitus ulcer, knee surgical site CDI Assessment/Plan 1. Sepsis secondary to decubitus ulcers and osteomyelitis-resolving - Patient remains afebrile 2. Septic R knee joint s/p I&D on 12/05/18- resolved - Ortho consultation appreciated - pain control 3. Left leg muscle spasm- improved - Robaxin TID , change to prn 4. Sacral wound with OM s/p debridement - General surgery consultation appreciated and cleared for d/c from their standpoint. Continue antibiotics and local wound care. Can follow up at wound clinic as outpatient - Bone biopsy shows OM, continue IV and po antibiotics until 02/19/2019, patient may need to continue antibiotics orally for lifetime as there could be infected hardware as she did had back surgery prior. -Fluconazole DC'd from infectious disease perspective. 5. Chronic spinal disease - h/o significant stenosis of her spine. Lumbar spine and thoracic spine CT show signs of stenosis though no acute fractures. - continue lidocaine patch 6. osteoarthritis - pain control 7. urinary tract infection- treated 8. Strep Bacteremia-resolved 9. History of falls - Continue PT 10. Disposition -DC when SNF placement is found HARJEET PATINO January 29, 2019 14:14
[2019-01-29] MEDS ORDERED: METHOCARBAMOL 750 MG TAB PO PRN (14:30)
[2019-01-29 15:19] VITALS: BP 118/62; PULSE 78; RESP 18
[2019-01-29 19:45] VITALS: BP 112/79; PULSE 88; RESP 20
--- NOTE | 2019-01-29 20:16 | PN ---
Date/Time of Note Date/Time of Note DATE: 01/29/19 TIME: 20:15 Assessment/Plan Lines/Catheters IV Catheter Type (from Nrs): Schaeffer in Place (from Nrs): No Assessment/Plan Chief Complaint/Hosp Course 1. Sacral wound: + Wound cultures; status post repeat debridement 01/07/2019; bone pathology noted; soft bone noted during debridement> + osteo; repeat wound cultures noted> now off isolation. s/p abx per ID -Repeat debridement as needed > can follow with Dr. Mcmanus at wound care clinic -Continue local care w santyl -frequent turning and off-loading -low air loss mattress -vitamin c -short term zinc -optimize nutrition -dc ok from surgical standpoint> pending SNF placement 2. Bacteremia: Repeat blood culture: NG 3.Septic right knee joint status post I&D: -Per Ortho 4. Spine disease: Status post spinal surgeries -Supportive 5.UTI s/p abx per sensitivity -frequent bladder emptying/cath care 6. Osteoarthritis: -Medical management Thank you, Subjective 24 Hr Interval Summary No fevers, chills, sob, congested cough, cp, palpitations, ruano, dizziness, n/v/d/dysuria, wound drainage or odor. Placement pending. Exam/Review of Systems Vital Signs Vitals Vital Signs Date Temp Pulse Resp B/P (MAP) Pulse Ox O2 O2 Flow FiO2 Time Delivery Rate 01/29/19 98.8 88 20 112/79 96 Room Air 19:45 (90) 01/27/19 21 21:54 Intake and Output 01/28/19 01/28/19 01/29/19 1515:00 23:00 07:00 IntakeIntake Total 890 ml 410 ml 200 ml BalanceBalance 890 ml 410 ml 200 ml Exam Free Text/Dictation Constitutional: alert, oriented Psych: nl mood/affect; No anxiety Head: normocephalic, atraumatic Eyes: nl conjunctiva, EOMI, nl lids, nl sclera ENMT: nl external ears & nose, nl lips & teeth, nl nasal mucosa & septum, mucosa pink and moist Neck: supple, non-tender; No jvd Respiratory: normal air movement; No congested cough Cardiovascular: regular rate and rhythm, nl pulses; No edema Gastrointestinal: soft, non-tender; No distended Genitourinary - Female: nl external genitalia Musculoskeletal: nl extremities to inspection; No nl gait and stance Extremities: normal pulses Neurological: nl mental status, nl speech, nl strength Skin: nl turgor, other (Sacrum: Minimal Slough, min drainage, no odor, minimal periwound erythema-much improved) Lymph: nl lymph nodes Results Result Diagram: 01/29/19 [id number] GABRIELA MCMANUS MD January 29, 2019 20:16
[2019-01-29] MEDS: LIDOCAINE 5% PATCH TD SCH (21:00)
[2019-01-30] MEDS: ACETAMINOPHEN 500 MG TAB PO PRN (01:10)
[2019-01-30 02:16] VITALS: BP 112/83; PULSE 89; RESP 20
[2019-01-30] MEDS: LEVOTHYROXINE 100 MCG TAB PO SCH (06:05)
[2019-01-30] MEDS: PANTOPRAZOLE (EC) 40 MG TAB PO SCH (06:05)
[2019-01-30 07:56] VITALS: BP 118/80; PULSE 82; RESP 18
[2019-01-30] MEDS: FERROUS SULFATE (EC) 325 MG TAB PO SCH (09:05)
[2019-01-30] MEDS: GABAPENTIN 300 MG CAP PO SCH ×2 (09:05→12:54)
[2019-01-30] MEDS: BUPROPION (XL) 150 MG TAB PO SCH (09:05)
[2019-01-30] MEDS: ASCORBIC ACID 500 MG TAB PO SCH (09:05)
[2019-01-30] MEDS: ASPIRIN (EC) 81 MG TAB PO SCH (09:05)
[2019-01-30] MEDS: MULTIVITAMINS THERAPEUTIC TAB PO SCH (09:05)
[2019-01-30] MEDS: VITAMIN B COMPLEX/VIT C CAP PO SCH (09:05)
[2019-01-30] MEDS: CELECOXIB 100 MG CAP PO SCH (09:05)
[2019-01-30] MEDS: CEFEPIME 1GM/50 ML (PMX) 50 ML IVPB SCH (09:05)
[2019-01-30] MEDS: FISH OIL 1,000 MG CAP PO SCH (09:05)
[2019-01-30] MEDS: CHOLECALCIFEROL 1,000 UNIT TAB PO SCH (09:05)
[2019-01-30] MEDS: COLLAGENASE 5 GM (UD JAR) TOP SCH (09:07)
[2019-01-30] MEDS: LISINOPRIL 5 MG TAB PO SCH (09:07)
[2019-01-30] MEDS: ZYVOX 600 MG TAB PO SCH (09:07)
[2019-01-30] MEDS: BALSAM PERU/CASTOR OIL 60 GM TUBE TOP SCH (09:15)
[2019-01-30] MEDS: DAKINS 0.0125%(1/40) 473 ML SOLUTION TP SCH (09:15)
[2019-01-30] MEDS: NYSTATIN 30 GM POWDER BTL TOP SCH (09:16)
--- NOTE | 2019-01-30 10:20 | PN ---
Date/Time of Note Date/Time of Note DATE: 01/30/19 TIME: 10:18 Assessment/Plan Lines/Catheters IV Catheter Type (from Nrs): PICC Line Schaeffer in Place (from Nrs): No Assessment/Plan Chief Complaint/Hosp Course 1. Sacral wound: + Wound cultures; status post repeat debridement 01/07/2019; bone pathology noted; soft bone noted during debridement> + osteo; repeat wound cultures noted> now off isolation. s/p abx per ID -Repeat debridement as needed > can follow with Dr. Nation at wound care clinic -Continue local care w santyl -frequent turning and off-loading -low air loss mattress -vitamin c -short term zinc -optimize nutrition -dc ok from surgical standpoint> pending SNF placement 2. Bacteremia: Repeat blood culture: NG 3.Septic right knee joint status post I&D: -Per Ortho 4. Spine disease: Status post spinal surgeries -Supportive 5.UTI s/p abx per sensitivity -frequent bladder emptying/cath care 6. Osteoarthritis: -Medical management Thank you. Patient seen and examined in collaboration with Dr. Fernandez Nation Subjective 24 Hr Interval Summary placement pending. No fevers, chills, sob, congested cough, cp, palpitations, ruano, dizziness, n/v/d/dysuria, excessive wound drainage/odor. Exam/Review of Systems Vital Signs Vitals Vital Signs Date Temp Pulse Resp B/P (MAP) Pulse Ox O2 O2 Flow FiO2 Time Delivery Rate 01/30/19 98.2 82 18 118/80 94 Room Air 07:56 (93) 01/27/19 21 21:54 Intake and Output 01/29/19 01/29/19 01/30/19 1515:00 23:00 07:00 IntakeIntake Total 1240 ml 520 ml BalanceBalance 1240 ml 520 ml Exam Free Text/Dictation Constitutional: alert, oriented Psych: nl mood/affect; No anxiety Head: normocephalic, atraumatic Eyes: nl conjunctiva, EOMI, nl lids, nl sclera ENMT: nl external ears & nose, nl lips & teeth, nl nasal mucosa & septum, mucosa pink and moist Neck: supple, non-tender; No jvd Respiratory: normal air movement; No congested cough Cardiovascular: regular rate and rhythm, nl pulses; No edema Gastrointestinal: soft, non-tender; No distended Genitourinary - Female: nl external genitalia Musculoskeletal: nl extremities to inspection; No nl gait and stance Extremities: normal pulses Neurological: nl mental status, nl speech, nl strength Skin: nl turgor, other (Sacrum: Minimal Slough, min drainage, no odor, minimal periwound erythema-much improved) Lymph: nl lymph nodes Results Result Diagram: 01/29/19 0455 YESSICA ALAMO NP January 30, 2019 10:20
[2019-01-30 14:29] VITALS: BP 120/78; PULSE 84; RESP 18
--- NOTE | 2019-01-30 14:30 | DS ---
Date/Time of Note Date/Time of Note DATE: 01/30/19 TIME: 14:26 Discharge Summary Admission/Discharge Info Admit Date/Time Dec 01, 2018 at 19:24 Discharge Date/Time Discharge Diagnosis 1. Sepsis secondary to decubitus ulcers and osteomyelitis-resolved 2. Septic R knee joint s/p I&D on 12/05/18- resolved 3. Left leg muscle spasm 4. Sacral wound with OM s/p debridement 5. Chronic spinal disease 6. osteoarthritis 7. urinary tract infection- treated 8. Strep Bacteremia-resolved 9. History of falls Patient Condition: Stable Hospital Course Patient is a female with a past medical history significant for chronic spinal disease, osteoarthritis also with decubitus ulcers who presented to [facility] for worsening right knee pain. Patient was found to have an acute infection in her right knee and was diagnosed with a septic right knee joint. Patient had a long history of multiple surgeries including total right knee arthroplasty in the past. Patient was seen by orthopedic surgeon who performed incision and drainage with poly-exchange and patient also seen by infectious disease. Patient had an extended stay due to inability to find a appropriate [facility] facility and was continued on IV antibiotics during this time. Patient had a slow improvement throughout this time as well. Patient will need to follow-up with Dr. Akbar Glover 1 to 2 weeks after discharge. On a separate note, patient had a decubitus ulcer which found to also be infected and diagnosed with osteomyelitis after surgeon perform debridement. Patient was continued on appropriate antibiotics from the infectious disease standpoint and will currently need cefepime and oral Zyvox until February 19, 2019. Infectious disease recommends continuing to monitor patient's white blood cell count as Zyvox does have a possible side effect of lowering white blood cell count. ID recommends a switch to daptomycin from Zyvox if WBC count decreases consistently. Patient was initially started on f luconazole ,however at time of discharge infectious disease recommended discontinuing, as she obtained a little over 2 weeks worth and the infection was likely superficial per infectious disease. Patient questions were answered and medications were addressed. Of note patient does have a likely iron deficiency anemia and will be started on a supplementation of iron, it was also recommended to the patient to follow-up with nicking machine operator in the outpatient setting. Of note patient also was treated for a strep bacteremia and UTI during this hospitalization and also has a history of chronic spinal disease. Patient will also need to follow-up with Dr. Fernandez Nation at the wound care center for continued wound care for her sacral decubitus ulcer which is healing. Patient will need ongoing wound care to her sacral decubitus ulcer twice a day. Patient will also likely need to continue some form of oral and antibiotic indefinitely per orthopedic surgery and infectious disease after her IV medication has ceased, patient will need to follow-up with infectious disease DrSpring Wiley. Patient is to continue her daily aspirin 81 mg as she has finished her 6 weeks of DVT prevention of 81 mg twice a day per orthopedic surgeon. Discharge diagnosis Sepsis secondary to decubitus ulcers and osteomyelitis, resolving Septic right knee joint, resolved Sacral decubitus wound with osteomyelitis, resolving Chronic spinal disease Muscle spasms, resolving Osteoarthritis Urinary tract infection, resolved Strep bacteremia, resolved History of falls Home Meds Active Scripts Ferrous Sulfate* (Ferrous Sulfate*) 325 Mg Tabec, 325 MG PO DAILY for 30 Days, TAB Prov:HARJEET PATINO 01/28/19 Linezolid (Linezolid) 600 Mg Tablet, 600 MG PO BID for 30 Days, #60 TAB Prov:BALTAZAR BARAJAS MD 01/22/19 Lisinopril* (Lisinopril*) 2.5 Mg Tablet, 2.5 MG PO DAILY for 30 Days, #30 TAB Prov:BALTAZAR BARAJAS MD 01/22/19 Reported Medications Cholecalciferol* (Vitamin D3*) 1,000 Unit Tablet, 1000 UNIT PO DAILY, TAB 12/01/18 Ascorbic Acid* (Vitamin C*) 500 Mg Capsule.sa, 500 MG PO BID, CAP 12/01/18 Sennosides* (Senna Lax*) 8.6 Mg Tablet, 1 TAB PO BID, TAB 12/01/18 Albuterol Sulfate* (Proair HFA*) 8.5 Gm Hfa.aer.ad, 2 PUFF INH Q4H PRN for WHEEZING AND SOB, #1 INHALER 12/01/18 Polyethylene Glycol* (Miralax*) 17 Gm Powd.pack, 17 GM PO DAILY, #30 PACKET HOLD FOR LOOSE STOOL MIX WITH 4-8oz of fluids 12/01/18 Multivitamins* (Theragran*) 1 Tab Tab, 1 TAB PO DAILY, TAB 12/01/18 Levothyroxine Sodium* (Levoxyl*) 100 Mcg Tablet, 100 MCG PO BEFORE BREAKFAST, #30 TAB 12/01/18 [place]-3/Dha/Epa/Fish Oil (FISH OIL 1,000 MG SOFTGEL) 1 Each Capsule, 1 EACH PO DAILY, CAP 12/01/18 Docusate Sodium* (Colace*) 100 Mg Capsule, 100 MG PO BID, #60 CAP 12/01/18 Calcium Carbonate/Vitamin D3 (OYSTER SHELL 500 MG + VIT D TB) 1 Each Tablet, 1 EACH PO BID, TAB 12/01/18 Bupropion Hcl* (Bupropion XL*) 300 Mg Tab.sr.24h, 300 MG PO DAILY, TAB.SA 12/01/18 Na Phos,M-B/Na Phos,Di-Ba (ENEMA [id number]) 133 Ml Enema, 133 ML RC EVERY 3RD DAY PRN for CONSTIPATION, ENEMA 12/01/18 Bisacodyl (Dulcolax) 10 Mg Supp.rect, 10 MG RC PRN PRN for CONSTIPATION, SUP P.RECT 12/01/18 Magnesium Hydroxide* (Milk Of Magnesia*) 400 Mg/5 Ml Oral.susp, 30 ML PO DAILY PRN for CONSTIPATION, ML 12/01/18 Vitamin B Complex* (Vitamin B Complex*) 1 Each Tablet, 1 TAB PO DAILY, TAB 12/01/18 Acetaminophen* (Acetaminophen*) 650 Mg Tablet, 650 MG PO Q4 PRN for MODERATE PAIN LEVEL 4-6, #30 TAB 12/01/18 Follow-up Plan 1. Follow up with your primary care physician in 1-2 weeks 2. You will need to continue on antibiotics until 02/19/19 3. If you are experiencing any issues with your right knee, please call Dr. Glover's office 4. Take all other medications as prescribed 5. Wound care will be continued at the skilled facility 6. If experiencing any concerning symptoms, please go to your nearest emergency department 7. Please follow up with Dr. Benedicto Wiley, infectious disease, for further antibiotic recommendations 8. Please follow up with Dr. Fernandez Nation, general surgery, for further wound care recommendations Primary Care Provider Not On Staff Doctor Time spent on discharge: > 30 minutes HARJEET PATINO January 30, 2019 14:30
== END 2019-01-30 17:15 | DRG 853 ==
LOC: E/R 15:43 → PP2 19:24 → MS1 12-08 18:52
PROVIDERS: ADMIT Family Medicine; ATTEND Internal Medicine
PROC: 0HQ0XZZ Repair Scalp Skin, External Approach (ICD-10-PCS; 2018-12-01)
PROC: 0S9C3ZX Drainage of Right Knee Joint, Percutaneous Approach, Diagnostic (ICD-10-PCS; 2018-12-04)
PROC: 0SPC09Z Removal of Liner from Right Knee Joint, Open Approach (ICD-10-PCS; 2018-12-05)
PROC: 0SUV09Z Supplement Right Knee Joint, Tibial Surface with Liner, Open Approach (ICD-10-PCS; 2018-12-05)
PROC: 0SBC0ZZ Excision of Right Knee Joint, Open Approach (ICD-10-PCS; 2018-12-05)
PROC: 02HV33Z Insertion of Infusion Device into Superior Vena Cava, Percutaneous Approach (ICD-10-PCS; principal; 2018-12-07)
PROC: 0QB10ZZ Excision of Sacrum, Open Approach (ICD-10-PCS; 2019-01-07)
PROC: 0QBS0ZZ Excision of Coccyx, Open Approach (ICD-10-PCS; 2019-01-07)
DX: A41.9 Sepsis, unspecified organism (principal); L89.154 Pressure ulcer of sacral region, stage 4; N39.0 Urinary tract infection, site not specified; M46.28 Osteomyelitis of vertebra, sacral and sacrococcygeal region; L03.115 Cellulitis of right lower limb; T84.53XA Infection and inflammatory reaction due to internal right knee prosthesis, initial encounter; M00.261 Other streptococcal arthritis, right knee; M19.90 Unspecified osteoarthritis, unspecified site; E87.6 Hypokalemia; I10 Essential (primary) hypertension; D50.9 Iron deficiency anemia, unspecified; E78.5 Hyperlipidemia, unspecified; W06.XXXA Fall from bed, initial encounter; S01.01XA Laceration without foreign body of scalp, initial encounter; M48.05 Spinal stenosis, thoracolumbar region; B95.62 Methicillin resistant Staphylococcus aureus infection as the cause of diseases classified elsewhere; M62.838 Other muscle spasm; B96.20 Unspecified Escherichia coli [E. coli] as the cause of diseases classified elsewhere; B96.89 Other specified bacterial agents as the cause of diseases classified elsewhere; Y92.013 Bedroom of single-family (private) house as the place of occurrence of the external cause; Z96.651 Presence of right artificial knee joint; Z96.652 Presence of left artificial knee joint; Z91.81 History of falling
CPT/HCPCS: 36415; 36569; 70450; 71045; 72128; 72131; 73562; 73610; 73700; 76937; 78315; 80048; 80053; 80061; 80069; 80202; 81001; 81003; 82550; 82565; 83036; 83540; 83605; 83735; 84100; 84443; 84484; 84520; 85014; 85018; 85025; 85610; 85651; 86140; 87070; 87075; 87081; 87086; 87102; 87116; 88300; 88304; 88311; 89060; 93005; 93306; 94640; 94664; 96374; 97110; 97116; 97161; 97164; 97165; 97530; 97535; A9503; A4310; C1713; J0690; J0692; J0696; J1170; J1940; J2185; J2250; J2405; J2765; J2795; J2916; J2997; J3010; J3370; J7030; J7050; J7120; Q9967

== ENCOUNTER → 2019-02-12 | Outpatient (CLI) | payer BC ==
[~2019-02-12] MED LIST changes: +ACET-2047 PO; +ALBU8.5H8 INH; +ASCO500C7 PO; +BISA10SU55 RC; -BUPR300T4 ORAL; +BUPR300T4 PO; +CALC1TAB93 PO; +CHOL100062 PO; +DOCU-144 PO; +FER325 PO; -GABA300C16 PO; +LINE600T33 PO; -LISI-313 PO; +LISI2.5T59 PO; +MAGN400O19 PO; +MULTI PO; +NA P133E10 RC; -NABU-81 ORAL; +OMEG1CAP20 PO; +POLY17PO6 PO; +SENN-120 PO; -SIMV5TAB14 PO; -TIOT18CA INHALATION; +VIT1TABL46 PO
--- NOTE | 2019-02-12 17:59 | CONS ---
Consult Date/Type/Reason Admit Date/Time Initial Consult Date Date/Time of Note DATE: 02/12/19 TIME: 17:54 Subjective DOS: 11/27/2018 Procedure: Irrigation debridement and poly-exchange of right TKA 10 weeks s/p I&D and poly-exchange of right TKA for acute hematogenous infection who returns today for follow up. She is also about 4 weeks status post irrigation debridement of the spine. The patient is doing well overall. Pain is minimal in the knee. Her knee is slowly getting stronger. She remains in the SNF. Denies F/C. Denies N/T. Denies any drainage from the incision. She remains on IV antibiotics until later this month per infectious disease. Narcotic Pain medication: None for the knee Gait Aids: Walker Pain better than before surgery: Yes Pleased with outcome. Objective Vitals Weight: 133 pounds Height: 5 foot 5 inch Temperature: 97.9 Heart Rate: 77 Blood Pressure: 131/62 Respiratory Rate: 12 Exam General: Alert, oriented x3. No Acute Distress. Heart: Regular rate and rhythm. Lungs: No respiratory distress. No accessory muscle use. Right lower Extremity: Incision well-healed. No skin breakdown, no surrounding erythema. Sensation intact to light touch in a sural, saphenous, deep peroneal, superficial peroneal, medial and lateral plantar nerve distribution. Motor is intact, patient able to dorsiflex and plantarflex ankle and extend and flex great toe. Dorsalis Pedis pulse +2, Brisk capillary refill. Compartments are soft. ROM: Extension: 0 Flexion: 110 Varus/ Valgus Stability: Stable in extension, flexion, and throughout range of motion A/P Stability: Stable Results/Medications Home Meds Active Scripts Ferrous Sulfate* (Ferrous Sulfate*) 325 Mg Tabec, 325 MG PO DAILY for 30 Days, TAB Prov:HARJEET PATINO 01/28/19 Linezolid (Linezolid) 600 Mg Tablet, 600 MG PO BID for 30 Days, #60 TAB Prov:BALTAZAR BARAJAS MD 01/22/19 Lisinopril* (Lisinopril*) 2.5 Mg Tablet, 2.5 MG PO DAILY for 30 Days, #30 TAB Prov:BALTAZAR BARAJAS MD 01/22/19 Reported Medications Cholecalciferol* (Vitamin D3*) 1,000 Unit Tablet, 1000 UNIT PO DAILY, TAB 12/01/18 Ascorbic Acid* (Vitamin C*) 500 Mg Capsule.sa, 500 MG PO BID, CAP 12/01/18 Sennosides* (Senna Lax*) 8.6 Mg Tablet, 1 TAB PO BID, TAB 12/01/18 Albuterol Sulfate* (Proair HFA*) 8.5 Gm Hfa.aer.ad, 2 PUFF INH Q4H PRN for WHEEZING AND SOB, #1 INHALER 12/01/18 Polyethylene Glycol* (Miralax*) 17 Gm Powd.pack, 17 GM PO DAILY, #30 PACKET HOLD FOR LOOSE STOOL MIX WITH 4-8oz of fluids 12/01/18 Multivitamins* (Theragran*) 1 Tab Tab, 1 TAB PO DAILY, TAB 12/01/18 Levothyroxine Sodium* (Levoxyl*) 100 Mcg Tablet, 100 MCG PO BEFORE BREAKFAST, #30 TAB 12/01/18 [place]-3/Dha/Epa/Fish Oil (FISH OIL 1,000 MG SOFTGEL) 1 Each Capsule, 1 EACH PO DAILY, CAP 12/01/18 Docusate Sodium* (Colace*) 100 Mg Capsule, 100 MG PO BID, #60 CAP 12/01/18 Calcium Carbonate/Vitamin D3 (OYSTER SHELL 500 MG + VIT D TB) 1 Each Tablet, 1 EACH PO BID, TAB 12/01/18 Bupropion Hcl* (Bupropion XL*) 300 Mg Tab.sr.24h, 300 MG PO DAILY, TAB.SA 12/01/18 Na Phos,M-B/Na Phos,Di-Ba (ENEMA [id number]) 133 Ml Enema, 133 ML RC EVERY 3RD DAY PRN for CONSTIPATION, ENEMA 12/01/18 Bisacodyl (Dulcolax) 10 Mg Supp.rect, 10 MG RC PRN PRN for CONSTIPATION, SUPP.RECT 12/01/18 Magnesium Hydroxide* (Milk Of Magnesia*) 400 Mg/5 Ml Oral.susp, 30 ML PO DAILY PRN for CONSTIPATION, ML 12/01/18 Vitamin B Complex* (Vitamin B Complex*) 1 Each Tablet, 1 TAB PO DAILY, TAB 12/01/18 Acetaminophen* (Acetaminophen*) 650 Mg Tablet, 650 MG PO Q4 PRN for MODERATE PAIN LEVEL 4-6, #30 TAB 12/01/18 Imaging 3 views of the right knee were brought in from outside and personally reviewed. Right knee status post right total knee arthroplasty. No acute complications. No changes from previous x-rays. Components in good position and alignment. Assessment/Plan Hospital Course (Demo Recall) 73-year-old female who is 10 weeks status post irrigation debridement and poly- exchange of right TKA. She is also 4 weeks status post irrigation debridement of the spine. She continues to be on IV antibiotics per infectious disease for about another 2 weeks. Currently there are no signs of infection in her knee and is doing better. She is getting stronger. She is now 4/5 strength for the quads. At the end of her course of IV antibiotics like the patient to get an ESR, CRP, CBC with differential. In addition I am recommending that she continues with oral antibiotics for 3 to 6 months after IV antibiotics are complete versus suppressive p.o. antibiotics for life. She would not tolerate a two-stage revision at this time. Follow-up 3 months Continue physical therapy for strengthening mobilization. EMIGDIO LUBIN MD Feb 12, 2019 17:59
== END | disposition home or self-care (01) ==
LOC: HKI 09:22
PROVIDERS: ATTEND Orthopaedic Surgery Adult Reconstructive Orthopaedic Surgery
DX: Z47.1 Aftercare following joint replacement surgery (principal); Z96.651 Presence of right artificial knee joint
CPT/HCPCS: G0463